=== PATIENT | male | born 1945 | race Caucasian/White ===

== ENCOUNTER → 2016-11-19 16:59 | Outpatient (CLI) | payer MEDICARE, OTHER, SELFPAY ==
--- NOTE | 2016-11-19 14:20 | LES_PTH ---
PATIENT: SERENITY ESTRADA LOC: [facility] U#:[id number] AGE/SX: 79/M ROOM: RE11/19/[address]: Dr. 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 Solar elastosis. AM:mary jo 11/21/16 COMMENT The lesion appears to have been completely excised in the planes examined. Case has been reviewed in consultation with Dr. Hinds who concurs with the above diagnosis. IDC:SJ MICROSCOPIC DESCRIPTION Slides are reviewed. GROSS DESCRIPTION Received is one container labeled with the patient's name and not further designated. The specimen consists of a triangular piece of skin with underlying tissue measuring 1 x 0.5 x 0.3 cm. The specimen is inked and submitted entirely in one cassette. / SHERRY:mary jo 11/20/16 TC: 0 CPT: 32246
== END | disposition home or self-care (01) ==
PROVIDERS: Visit Provider Otolaryngology
DX: D23.22 Other benign neoplasm of skin of left ear and external auricular canal (principal); E86.0 Dehydration
CPT/HCPCS: 88305; 96360; 96361; J7120; A4216

== ENCOUNTER → 2017-06-17 07:57 | Outpatient (CLI) | payer MEDICARE, OTHER, SELFPAY ==
--- NOTE | 2017-06-17 07:59 | CT_ITS ---
STUDY: CT CHEST WITHOUT CONTRAST REASON FOR EXAM: Male, 72 years old. Malignant neoplasm of larynx, lung, evaluate tumor size RADIATION DOSAGE (If Supplied By Facility): CTDIvol = ( 7.31 ) mGy, DLP = ( 292.27 ) mGycm TECHNIQUE: Transaxial imaging was performed without the administration of intravenous contrast material. Individualized dose optimization techniques were used for this CT. COMPARISON: Previous study of April 11, 2017 FINDINGS: The study is technically limited, being performed without intravenous contrast. There is a 6.5 mm posterior left upper lobe nodule abutting the superior major fissure. There is a right lower lobe pulmonary nodule measuring 5 mm, abutting the inferior major fissure. This is seen on image 80 of series 4. There are scattered bilateral calcified granulomas. There is a pleural-based density with spiculated margins of the lateral right middle lobe measuring 2.3 x 1.1 cm. There is a coarse prominent interstitial pattern of the right middle lobe and left lower lobe. There is a pleural-based 1.4 cm nodular density of the posterior left lung base. There is a left lower lobe irregularly margined nodule containing central calcification measuring 1.5 x 0.9 cm. There are bronchiectatic changes of the left lower lobe, new in the interval. There is again demonstrated mild pleural thickening of the anterior upper lobe apices containing air densities. The heart size appears borderline. Coronary arterial calcifications are present. Scattered mediastinal nodes are present. The largest is located in the precarinal region measuring 1.1 cm in short axis. These appear stable in the interval. Hilar areas are difficult to assess on this study as intravenous contrast was not given. No obvious hilar mass or adenopathy is seen. There are bilateral calcified hilar nodes left side more severely affected than right. Normal unenhanced pulmonary arteries. There are calcified plaques of the thoracic aorta. There are diffuse degenerative changes of the thoracolumbar spine. A tracheostomy is seen appearing in adequate position. There are scattered hepatic cysts measuring up to 3.[address]/Chest without Contrast IMPRESSION: 1. Coarse prominent interstitial pattern in the right middle lobe and left lower lobe. Bronchiectatic changes of the left lower lobe, new in the interval. 2. Ill-defined densities of the left lower lobe appearing stable in the interval. 3. Pleural-based density with spiculated margins of the lateral right middle lobe measuring 2.3 x 1.1 cm, new in the interval. 4. Additional pulmonary nodules as detailed above appearing stable in the interval. 5. Mediastinal adenopathy, stable in the interval. Electronically Signed: Preston Abel MD at 17:50 EDT , Service support ,
== END ==
PROVIDERS: Family Provider Surgery; PCP Surgery; Visit Provider Internal Medicine Medical Oncology
DX: C13.9 Malignant neoplasm of hypopharynx, unspecified (principal); C78.02 Secondary malignant neoplasm of left lung
CPT/HCPCS: 71250

== ENCOUNTER → 2017-09-27 07:49 | Outpatient (CLI) | payer MEDICARE, OTHER, SELFPAY ==
--- NOTE | 2017-09-27 07:51 | CT_ITS ---
STUDY: CT CHEST WITH CONTRAST REASON FOR EXAM: Male, 72 years old. Hypopharyngeal cancer. Lung cancer. RADIATION DOSAGE (If Supplied By Facility): CTDIvol = ( 8.16 ) mGy, DLP = ( 271.44 ) mGycm TECHNIQUE: Transaxial imaging was performed following intravenous administration of 75ml ml of Isovue 300 contrast material. Individualized dose optimization techniques were used for this CT. COMPARISON: 06/17/2017. FINDINGS: Tracheostomy tube in grossly satisfactory position, terminating in the trachea above the elva. Continued hyperexpansion of the lungs consistent with severe COPD. Diffuse interstitial prominence consistent with mild interstitial fibrosis. Previously described 2.3 cm right middle lobe density is no longer present. Stable appearance of infiltrate, streaky densities, and nodular densities throughout much of the left lower lobe and into the left posterior costophrenic angle with nodular densities as much as 1.6 cm. Although these are still suspicious and spiculated the lack of change is reassuring and continued follow-up is recommended. Bronchiectasis again seen primarily to both lower lobes worse on the left. Numerous other small nodules and granulomas throughout both lungs are stable such as the 6 mm partially calcified nodule along the superior aspect of the left major fissure. Normal heart and pericardium. Stable appearance of moderate mediastinal and hilar adenopathy, nonspecific but the lack of change is reassuring. Normal enhanced pulmonary arteries. Normal aorta arch and descending thoracic aorta. Normal osseous structures. Limited views through the upper abdomen show no acute abnormality. Liver cysts again seen. Nonobstructing stone in the left kidney is stable. CT/Chest WITH Contrast IMPRESSION: COPD with fibrosis. Previously described nodules and areas of hyperdensity are stable or improved especially in the right middle lobe. In the left lower lobe, findings probably represent a combination of bronchitis, infiltrate, and areas of scarring but recommend repeat follow-up in 6 months. Electronically Signed: Byron Queen MD at 17:21 EDT , Service support ,
== END ==
PROVIDERS: Family Provider Physician Assistant; PCP Physician Assistant; Visit Provider Internal Medicine Medical Oncology
DX: C13.9 Malignant neoplasm of hypopharynx, unspecified (principal); C78.02 Secondary malignant neoplasm of left lung
CPT/HCPCS: 71260; 96360; 96361; J7030; Q9967; A4216

== ENCOUNTER → 2018-04-02 15:24 | Outpatient (CLI) | payer MEDICARE, OTHER, SELFPAY ==
[2018-03-25 09:43] VITALS: BMI 18.4
[2018-03-31 08:55] VITALS: BMI 18.4
--- NOTE | 2018-04-02 15:25 | CT_ITS ---
STUDY: CT CHEST WITH CONTRAST REASON FOR EXAM: Male, 72 years old. Throat and lung cancer. RADIATION DOSAGE (If Supplied By Facility): CTDIvol = ( 7.97 ) mGy, DLP = ( 394.62 ) mGycm TECHNIQUE: Transaxial imaging was performed following intravenous administration of 80ML ml of Isovue 300 contrast material. Multiplanar coronal and sagittal images were reformatted. Individualized dose optimization techniques were used for this CT. COMPARISON: CT of the chest, September 27, 2017. FINDINGS: Again seen is a tracheostomy tube with its tip 3.7 cm above the elva. There is a right-sided jugular [id number] with its catheter tip at the atrial caval junction. There is diffuse hyperexpansion of the lungs suggesting COPD. There are multiple calcified granulomata in the right lower lobe. There is patchy nodular infiltrate in the left lower lobe as well as a single calcified granuloma.. Stable calcified granulomas again seen in the posterior right upper lobe. These findings appear stable. There is stable linear scarring right lung base involving both the middle and lower lobes. No new masses or infiltrates are seen. There is no demonstrated pleural abnormality. Normal heart and pericardium. There are calcifications of the coronary arteries. There is paratracheal, AP window, precarinal and subcarinal lymphadenopathy which appears unchanged in size and appearance from previous examination. There is minimal hilar lymphadenopathy, again unchanged from the prior exam. Normal enhanced pulmonary arteries. There is mild atherosclerotic tortuosity of the thoracic aorta without aneurysm or dissection. There are mild degenerative changes of the thoracic spine without fracture. There are multiple hypodensities of varying sizes throughout the liver most suggestive of cysts. These are stable. There is a stable right upper pole renal cyst. The upper abdomen is otherwise unremarkable. There is no demonstrated abnormality of the visualized upper abdomen. CT/Chest WITH Contrast IMPRESSION: No interval change. Electronically Signed: Gómez London DO at 16:44 EST Tel [phone], Service support ,
== END ==
PROVIDERS: Family Provider Physician Assistant; PCP Physician Assistant; Referring Provider Internal Medicine Medical Oncology; Visit Provider Internal Medicine Medical Oncology
DX: C13.9 Malignant neoplasm of hypopharynx, unspecified (principal); C78.02 Secondary malignant neoplasm of left lung
CPT/HCPCS: 71260; Q9967; A4216

== ENCOUNTER → 2018-05-09 12:06 | Outpatient (CLI) | payer SELFPAY ==
[2018-04-29 08:50] VITALS: BMI 18.3
[2018-05-09 08:25] VITALS: BMI 18.6
[2018-05-09 12:43] VITALS: PULSE 101; PULSE 83; PULSE 85; PULSE 93; PULSE 94; PULSE 99; O2SAT 92; O2SAT 93; O2SAT 94; O2SAT 95; O2SAT 96
--- NOTE | 2018-05-10 08:24 | PCM.PSN.6M ---
PSN 6 Minute Walk Test - 6 Minute Walk Test 6 Minute Walk Test: 6 Minute Walk Test PSN:6-Minute Walk Test Start: 05/09/18 12:43 Freq: Status: Active Protocol: [id number].6MINW Document 05/09/18 12:43 REJI (Rec: 05/09/18 12:47 REJI [id number]) 6 Minute Walk Test Date Performed 05/09/18 Time Performed 12:30 Height 5 ft 10 in Weight: 129 lb Weight in Pounds 129.[address]: Stuart Polo Assistive device used: None Pre-test Oxygen Delivery Method Room Air Pulse Ox (%) 95 Pulse Rate (60-100 beats/min) 83 Dyspnea Amy Scale (0-10) 0.5 Exertion Amy Scale (6-20) 6 1st minute Oxygen Delivery Method Room Air Pulse Ox (%) 94 Pulse Rate (60-100 beats/min) 93 2nd minute Oxygen Delivery Method Room Air Pulse Ox (%) 93 Pulse Rate (60-100 beats/min) 93 3rd minute Oxygen Delivery Method Room Air Pulse Ox (%) 92 Pulse Rate (60-100 beats/min) 94 4th minute Oxygen Delivery Method Room Air Pulse Ox (%) 93 Pulse Rate (60-100 beats/min) 101 H 5th minute Oxygen Delivery Method Room Air Pulse Ox (%) 93 Pulse Rate (60-100 beats/min) 99 6th minute Oxygen Delivery Method Room Air Pulse Ox (%) 95 Pulse Rate (60-100 beats/min) 99 Dyspnea Amy Scale (0-10) 2 Exertion Amy Scale (6-20) 13 Post-test Oxygen Delivery Method Room Air Pulse Ox (%) 96 Pulse Rate (60-100 beats/min) 85 Full Laps Walked 12 Partial Lap, Number of Tiles Walked 50 Total Distance Walked (ft) 758 - Interpretation Interpretation: The patient ambulated 758 feet over the course of 6 minutes beginning on room air without assistive devices or breaks. Pretesting oxygen saturation was noted to be 95% on room air. With ambulation, the lara oxygen saturation was 92%. There was no significant exertional oxygen desaturation. - Recommendations Recommendations: There is no indication for the use of supplemental oxygen at this time.
== END ==
LOC: PSN 12:07
PROVIDERS: Family Provider Physician Assistant; PCP Physician Assistant; Referring Provider Internal Medicine Critical Care Medicine; Visit Provider Internal Medicine Critical Care Medicine
DX: J44.9 Chronic obstructive pulmonary disease, unspecified (principal); G47.34 Idiopathic sleep related nonobstructive alveolar hypoventilation
CPT/HCPCS: 94618; 94762

== ENCOUNTER → 2018-08-13 06:47 | Outpatient (CLI) | payer MEDICARE, OTHER, SELFPAY ==
[2018-07-29 09:27] VITALS: BMI 18.2
[2018-08-11 08:13] VITALS: BMI 18.2
--- NOTE | 2018-08-13 06:51 | CT_ITS ---
STUDY: CT CHEST WITHOUT CONTRAST REASON FOR EXAM: Male, 73 years old. Tongue cancer, lung cancer, tracheostomy, chemotherapy now, PEG tube RADIATION DOSAGE (If Supplied By Facility): CTDIvol = ( 12.48 ) mGy, DLP = ( 502.11 ) mGycm TECHNIQUE: Transaxial 2.5 mm imaging was performed without the administration of intravenous contrast material. Multiplanar coronal and sagittal images were reformatted. This examination is limited for the evaluation of gastrointestinal, solid organs and vascular structures due to the lack of intravenous and oral contrast. Individualized dose optimization techniques were used for this CT. COMPARISON: CT chest 04/02/2018. 09/27/2017. 06/17/2017. 04/11/2017. FINDINGS: Tracheostomy catheter is in good position. Stable right anterior chest wall port with catheter tip at the cavoatrial junction. The left lower lobe again contains bronchiectasis with luminal opacification of bronchi proximally, associated volume loss, airspace disease and nodular atelectatic changes, decreased in size since 09/27/2017. No new nodules or masses are otherwise detected. Stable hyperinflation of lung parenchyma, mild centrilobular emphysema, opacification of both apices, nodular calcification posterior left upper lobe, bronchiectasis, vague nodular ovoid density with adjacent parenchymal stranding of 0.89 cm in the left upper lobe, minimal pleural thickening along the line of fissure in the upper lobe, nodular thickening along the minor fissure with adjacent coursing vessel, calcified granulomata in the right and left lower lobe, scarring in the lung bases, 3 mm nodular density left upper lobe image 54 series 4, minimal nodular thickening of the left major fissure are stable findings. There is no demonstrated pleural abnormality. Normal heart and stable small anterior pericardial fluid. There are calcifications of the coronary arteries. Lymphadenopathy in the pretracheal, aortopulmonary, precarinal and subcarinal mediastinum not significantly changed when compared to the previous contrast enhanced study. Normal hilar regions. Normal unenhanced pulmonary arteries. Normal aorta arch and descending thoracic aorta. There are mild degenerative changes of the thoracic spine. Pectus excavatum deformity. No destructive osseous lesions. Stable nonobstructing left upper renal pole calcification, splenic granulomata, left peripelvic cysts, and low-attenuation changes within the liver. CT/Chest without Contrast IMPRESSION: No new lung masses or nodules detected. Nodular atelectatic changes within the left lower lobe appear decreased when compared to 06/17/2017. Stable emphysema, scarring, bronchiectasis, inflammation and luminal opacification of the left inferior bronchi, remote granulomatous exposure, arteriosclerosis, coronary artery disease, small anterior pericardial fluid, low attenuation changes within the liver, nonobstructing left renal calculus. Electronically Signed: Neela Garcia MD at 4:58 EDT , Service support ,
== END ==
PROVIDERS: Family Provider Physician Assistant; PCP Physician Assistant; Referring Provider Internal Medicine Medical Oncology; Visit Provider Internal Medicine Medical Oncology
DX: C13.9 Malignant neoplasm of hypopharynx, unspecified (principal); C78.02 Secondary malignant neoplasm of left lung
CPT/HCPCS: 71250

== ENCOUNTER → 2018-09-09 09:38 | Outpatient (CLI) | payer MEDICARE, OTHER, SELFPAY ==
[2018-09-09 08:58] VITALS: BMI 17.4
--- NOTE | 2018-09-09 09:42 | RAD_ITS ---
STUDY: X-RAY CHEST REASON FOR EXAM: Male, 73 years old. Cough, weakness. History of esophageal and lung cancer. TECHNIQUE: PA and lateral views of the chest. COMPARISON: Comparison is made with prior chest radiograph dated August 09, 2016. FINDINGS: A tracheostomy is in situ. The tip is at 6.5 cm proximal to the elva. A right-sided portacatheter is in place with the tip at the junction of superior vena cava and right atrium. Hyperinflation. There now is evidence of increased markings in the right middle lobe suggestive of a a right middle lobe infiltrate. Follow-up is recommended. There is no demonstrated pleural abnormality. Pectus ask about and deformity. Normal size heart. Normal mediastinum and anival. Normal visualized pulmonary arteries. There is atherosclerotic calcification of the aortic arch with tortuosity. Normal visualized thoracic spine. Normal visualized ribs, clavicles, and shoulders. There is no demonstrated abnormality of the visualized soft tissue structures of the upper abdomen. RAD/Chest PA and Lateral IMPRESSION: Focal right middle lobe infiltrate. Follow-up is recommended. Electronically Signed: Joshua Schneider, at 10:31 EDT , Service support ,
== END ==
PROVIDERS: Family Provider Physician Assistant; PCP Physician Assistant; Referring Provider Nurse Practitioner Family; Visit Provider Nurse Practitioner Family
DX: R05 Cough (principal); C13.9 Malignant neoplasm of hypopharynx, unspecified; C78.00 Secondary malignant neoplasm of unspecified lung
CPT/HCPCS: 71046

== ENCOUNTER 2018-09-09 12:22 | Inpatient (IN) | payer MEDICARE, OTHER, SELFPAY ==
[2018-09-09] VITALS (9 sets, daily range): BP systolic 90–112; BP diastolic 59–85; PULSE 77–101; RESP 18–25; TEMP 36.6–37; O2SAT 94–97; BMI 17.4; BMI 17.5
--- NOTE | 2018-09-09 12:27 | EKG12_ITS ---
Test Reason : SOB Blood Pressure : / mmHG Vent. Rate : 087 BPM Atrial Rate : 087 BPM P-R Int : 150 ms QRS Dur : 080 ms QT Int : 372 ms P-R-T Axes : 074 058 058 degrees QTc Int : 447 ms Normal sinus rhythm Cannot rule out Anterior infarct , age undetermined Abnormal ECG Confirmed by KAN PARDO ([id number]), editorial director DAWSON AVALOS ([id number]) on 09/12/2018 6:16:29 AM Referred By: Colt Alan Confirmed By:KAN PARDO
[2018-09-09] MEDS: Ipratropium/Albuterol Sulfate 3 ML AMPUL.NEB INHALATION (12:52)
[2018-09-09] MEDS: 0.9% Normal Saline 1,000 ML 150 ML IV ×2 (12:59→20:55)
[2018-09-09 13:07] LABS: Absolute Lymphocyte Count 0.75 X10^3/ul (0.83-4.51); Basophil# 0.02 X10^3/uL; Basophil% 0.3 % (0-1); Eosinophil# 0.08 X10^3/uL; Eosinophils% 1.3 % (0-5); Hemoglobin 12.8 g/dl (13.0-16.5); Lymphocyte # 0.75 X10^3/ul (4.0); Lymphocyte % 11.9 % (19-41); Mean Corp Hgb Conc 32.8 g/gl (32-36); Mean Corpuscular Volume 100.5 fL (80-94); Mean Platelet Vol. 11.5 fl (6.2-12.0); Monocyte# 0.47 X10^3/uL; Monocyte% 7.5 % (0-10); Neutrophil # 4.98 X10^3/uL (2.7-7.7); Platelet Count 164 K/mm3 (150-450); RBC Distribution Width CV 13.8 % (11.6-14.6); RBC Distribution Width SD 50.7 fl (35.1-43.9); Red Blood Count 3.88 M/mm3 (4.6-6.2); White Blood Count 6.3 K/mm3 (4.4-11.0)
[2018-09-09 13:08] LABS: POSITIVE COUNT NO; POSITIVE DIFFERENTIAL NO; POSITIVE MORPHOLOGY NO
[2018-09-09 13:23] LABS: ALB/GLOB Ratio 0.7 RATIO (0.9-2.4); AST(SGOT) 22 U/L (15-37); Alanine Aminotransfer ALT/SGPT 16 U/L (16-61); Albumin, Serum 3.3 g/dL (3.2-5.0); Alkaline Phosphatase 67 U/L (45-117); Anion Gap 6 (5-15); BUN 26 mg/dL (7-18); BUN/Creat Ratio 15.8 RATIO (10-20); Calcium,Total 9.3 mg/dL (8.5-10.1); Chloride 109 mmol/L (98-107); Creatinine, Serum 1.65 mg/dL (0.70-1.30); EST Glomerular Filtration Rate 44 mL/min (>60); Est Glom Filt Rate - Afr Amer 53 mL/min (>60); Estimated Creatinine Clearance 32.22 ml/min; Globulin 4.7 g/dL (2.2-4.2); Glucose 86 mg/dL (74-106); Potassium 4.3 mmol/L (3.5-5.1); Sodium Level 140 mmol/L (136-145)
[2018-09-09 13:32] LABS: Lactic Acid 0.7 mmol/L (0.4-2.0)
--- NOTE | 2018-09-09 14:04 | ED.VISSUMM ---
- ER Visit Summary Date of Service: 09/09/18 Chief Complaint: [Cough and shortness of breath] History of Present Illness: The patient is a 73 M [presents to the emergency department with symptoms for 2 to 3 weeks. Patient states that he is had some thick sputum from his tracheostomy. Patient just finished amoxicillin this morning which she is been on for 2 weeks. Patient does have a history of esophageal cancer that was treated with radiation and he also has history of lung cancer for which she received his on infusion of an immune modulator which she was supposed to have today. Patient had a chest x-ray that today that showed a right middle lobe infiltrate and therefore was not given the immune modulator. Patient said subjective fever at home and chills. He denies recent travel or surgery. He denies any chest pain.] Physical Examination: [HEENT-PERRLA, EOMI. Cranial nerves II through XII grossly intact. TMs clear. No adenopathy. Patient is cachectic. Mucous membranes are dry Cardiovascular-regular rate and rhythm without murmur or ectopy Lungs-aeration bilaterally. Patient got some coarse breath sounds and rhonchi bilaterally. Few rales in the right base. Mild tachypnea. No accessory muscle use or retractions. Abdomen-normoactive bowel sounds, soft, nontender, no rebound or rigidity, no peritoneal signs. Extremities-intact ?4, normal range of motion, normal pulses, atraumatic] Test Results: [EKG obtained on arrival shows sinus rhythm with a ventricular rate of 87 bpm with no acute I segment changes. CBC with differential showed a white count of 6.3, hemoglobin 12.8, hematocrit 39, placed 164. Chemistry showed a sodium of 140, potassium 4.3, chloride 109, CO2 25, BUN 26, creatinine 1.65. LFTs were normal. Chest x-ray showed a right middle lobe infiltrate.] Emergency Department Course and Treatment: [Patient was ordered blood cultures and sputum culture. Patient was started on Zosyn and vancomycin.] Treatment Plan: [Admit] Disposition: [Admit ] Impression: [Pneumonia Dehydration Dyspnea] This note was generated with [employer] dictation software. It may contain incorrect words, spelling, and punctuation that were not noted in review of the chart prior to signing ED Disposition - Plan for ED Patient: Referrals: Alejandro Liu PA [Primary Care Provider] -
--- NOTE | 2018-09-09 14:10 | HP.PCM_ITS ---
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 He had a new right middle lobe density in June 2017 which was felt to be aspiration was placed on antibiotics at that time. Repeat CT scan showed that it was stable earlier this month. He states that he just completed 10 days of Augmentin for sinusitis and he started having cough and malaise last night with sputum production and a large volume emesis that actually came out of his trach. He presented to his oncologist office who recommended that he follow-up with the ER after having a chest x-ray which shows right middle lobe consolidation based on comparison to August 09, 2016. In the ER he was tachycardic to 101 and tachypneic to 24, without a leukocytosis or fever. He does not eat anymore, he does have a PEG tube in place. Past Medical History Past Medical History (Chronic Problems): Chronic Problems (Last Reviewed 09/09/18 @ 08:58 by Alejandra Diaz) Acute respiratory failure (Chronic) Aspiration pneumonia (Chronic) Cachexia (Chronic) Dysphagia (Chronic) Laryngeal cancer (Chronic) Tracheostomy in place (Chronic) PEG (percutaneous endoscopic gastrostomy) status (Chronic) Leukopenia due to antineoplastic chemotherapy (Chronic) Hypopharyngeal cancer (Chronic) Secondary malignant neoplasm of left lung (Chronic) Dehydration (Chronic) Macroglobulinemia (Chronic) Nocturnal hypoxia (Chronic) Medical History: Medical History (Last Reviewed 09/09/18 @ 08:58 by Alejandra Diaz) pegtube port placement Acute nontraumatic kidney injury N17.9 Adverse effect of antineoplastic and immunosuppressive drugs T45.1X5A Agranulocytosis secondary to cancer chemotherapy D70.1, T45.1X5A Antineoplastic chemotherapy induced anemia D64.81, T45.1X5A Diarrhea R19.7 Hypermagnesemia E83.41 Long-term use of high-risk medication Z79.899 Neuropathy G62.9 Oral candidiasis B37.0 Pneumonia J18.9 Primary malignant neoplasm of hypopharynx C13.9 RUQ abdominal pain R10.11 Secondary malignant neoplasm of lung C78.00 Wheezing R06.2 tracheotomy and laryngeal biopsy Allergies venom-honey bee [bee venom (honey bee)] Allergy (Severe, Verified 09/09/18 12:27) Anaphylaxis pseudoephedrine HCl [From Sudafed] Adverse Reaction (Severe, Verified 09/09/18 12:27) Unknown pain Antihistamines - Alkylamine Adverse Reaction (Mild, Verified 09/09/18 12:27) Other PT UNABLE TO URINATE WHEN TAKING ANTIHISTAMINES ROUTINELY Home Medications: Ambulatory Orders Medication Instructions Recorded Gabapentin 300 mg GT BID 09/09/18 Levothyroxine Sodium 50 mcg GT TUSA 09/09/18 Levothyroxine [Synthroid] 25 mcg GT SUMOWETHFR 09/09/18 Surgical History: Surgical History (Last Reviewed 09/09/18 @ 08:58 by Alejandra Diaz) Hx of tonsillectomy Z98.890, Z90.89 Surgical History: - - Med port L chest Psychiatric History: No pertinent psych hx Smoking Status: Current some day smoker Tobacco Use: Cigarettes Alcohol: None Drugs: None - *Family History Maternal Family History: Family History (Last Reviewed 08/25/18 @ 11:05 by Alejandra Diaz) Father Colon cancer Hypertension Mother Hypertension History Items: Cancer - Colon cancer, Heart Disease, - - No laryngeal cancer Paternal Family History: Family History (Last Reviewed 08/25/18 @ 11:05 by Alejandra Diaz) Father Colon cancer Hypertension Mother Hypertension History Items: Unknown Sibling Family History: Family History (Last Reviewed 08/25/18 @ 11:05 by Alejandra Diaz) Father Colon cancer Hypertension Mother Hypertension History Items: Cancer - breast Review of Systems Constitutional: Reports: Chills, Fever. Denies: Weight Change HEENT: Denies: Head Aches, Sinus Congestion, Sinus Drainage Cardiovascular: Denies: Chest Pain, Palpitations Respiratory: Reports: Cough, Shortness of Breath, Sputum production. Denies: Shortness of breath at rest Gastrointestinal: Reports: Vomiting. Denies: Abdominal Pain, Nausea Genitourinary: Denies: Dysuria Musculoskeletal: Denies: Joint Pain, Joint Tenderness Skin: Denies: Rash, Wounds Neurological: Denies: Numbness, Tingling, Focal weakness Psychiatric: Denies: Anxiety, Depression Hematologic/ Lymphatic: Denies: Easy Bruising, Easy Bleeding VTE Information - Inpt Only VTE Present on Admission: No Patient Problems: Active and Suspected Problems (Last Reviewed 09/09/18 @ 08:58 by Alejandra Diaz) Cancer, metastatic to lung (Acute) Hypothyroidism (Acute) Immunotherapy encounter (Acute) Hyperglobulinemia (Acute) Acute rhinosinusitis (Acute) Pneumonia (Acute) - Physical Exam General: Alert, Oriented x3, Cooperative, No apparent distress, - - Appears chronically malnourished HEENT: Atraumatic, PERRLA, EOMI, Normocephalic, - - Trach Oral: Dry Mucosa Neck: Supple, No JVD Lungs: Normal air movement, Diminished, Rhonchi, Tachypneic Cardiovascular: Regular rate, Regular Rhythm, Normal S1, Normal S2, No murmurs Abdomen: Soft, Non Tender, Non-Distended, No Hepato-splenomegaly, - - PEG tube in place Extremities: No edema, Capillary Refill Less than 3 Seconds Skin: No rashes, No breakdown Neurological: Neuro grossly intact, Sensory exam intact to light touch and pain Psych/Mental Status: Normal Affect, Appropriate Vital Signs Temp Pulse Resp BP Pulse Ox 98.2 F 82 22 H 111/76 97 09/09/18 13:26 09/09/18 13:26 09/09/18 13:26 09/09/18 13:26 09/09/18 13:26 Oxygen Delivery Method Room Air Weight: 122 lb 4.8 oz Body Mass Index (BMI) 17.5 Laboratory Tests Past 24 Hrs 09/09/18 09/09/18 09/09/18 12:48 12:48 12:48 WBC 6.3 RBC 3.88 L Hgb 12.8 L Hct 39.0 L MCV 100.5 H MCH 33.0 H MCHC 32.8 RDW 13.8 RDW Differential 50.7 H Plt Count 164 MPV 11.5 Immature Gran % (Auto) 0.000 Neut % (Auto) 79.0 H Lymph % (Auto) 11.9 L [place] % (Auto) 7.5 Eos % (Auto) 1.3 Baso % (Auto) 0.3 Absolute Neuts (auto) 5.0 Absolute Lymphs (auto) 0.75 L Total Counted Not Reportable Sodium 140 Potassium 4.3 Chloride 109 H Carbon Dioxide 25.0 Anion Gap 6 BUN 26 H Creatinine 1.65 H Estim Creat Clear Calc 32.22 Est GFR (MDRD) Af Amer 53 L Est GFR (MDRD) Non-Af 44 L BUN/Creatinine Ratio 15.8 Glucose 86 Lactic Acid 0.7 Calcium 9.3 Total Bilirubin 0.40 AST 22 ALT 16 Alkaline Phosphatase 67 Total Protein 8.0 Albumin 3.3 Globulin 4.7 H Albumin/Globulin Ratio 0.7 L Assessment/Plan All Active Problems (Last Reviewed 09/09/18 @ 08:58 by Alejandra Diaz) HCAP (healthcare-associated pneumonia) (Resolved) Cancer, metastatic to lung (Acute) Hypothyroidism (Acute) Immunotherapy encounter (Acute) Hyperglobulinemia (Acute) Acute rhinosinusitis (Acute) Pneumonia (Acute) Thrush, oral (Acute) Tobacco abuse (Acute) 1. Right middle lobe consolidation probably secondary to aspiration -I am not entirely convinced that there is pneumonia versus just simple aspiration given his history of cancer, his PEG tube, his trach in the history of having a large volume emesis that came out of his trach last evening -We will treat with antibiotics for now because he is immunocompromised receiving chemo, continue with Zosyn and Vanco -We will obtain Legionella and urine strep antigen -Sputum and blood cultures are pending -We will consult speech for evaluation 2. Hypopharyngeal stage IV cancer with mets to the lung -Continue with oncology as an outpatient -They will reevaluate for immunotherapy on 09/16 3. Hypothyroidism -Stable -Continue with Synthroid DVT: Lovenox
--- NOTE | 2018-09-09 15:15 | CPS ---
Oleksandr placed 6dcfs and 4dic trach plus 6DIC's in cupboard in pt's room and let family member & Gelacio RN know that backup equipment was in the room along with disposable inner cannulas. Pt does not use oxygen or cool aerosol to his trach, pt doesn't want to be suctioned unless absolutely necessary because he has a strong cough and can cough his secretions out.
--- NOTE | 2018-09-09 15:21 | PCM.RX.CS ---
Consult Pharmacy has been consulted to manage selected antiobiotic: Vancomycin Type of Consult: New start Suspected Infection: Pneumonia Prior Doses of Antibiotics Received/Current Regimen: Received 750mg IV x1 in E.R. at 14:13 today Labs: Sodium 140 mmol/L (136-145) 09/09/18 12:48 Potassium 4.3 mmol/L (3.5-5.1) 09/09/18 12:48 Chloride 109 mmol/L (98-107) H 09/09/18 12:48 Carbon Dioxide 25.0 mmol/L (21.0-32.0) 09/09/18 12:48 Anion Gap 6 (5-15) 09/09/18 12:48 BUN 26 mg/dL (7-18) H 09/09/18 12:48 Creatinine 1.65 mg/dL (0.70-1.30) H 09/09/18 12:48 Est GFR (MDRD) Af Amer 53 mL/min (>60) L 09/09/18 12:48 Est GFR (MDRD) Non-Af 44 mL/min (>60) L 09/09/18 12:48 BUN/Creatinine Ratio 15.8 RATIO (10-20) 09/09/18 12:48 Glucose 86 mg/dL (74-106) 09/09/18 12:48 Weight used for dosin kg Estimated Creatinine Clearance: 32 ml/min Goal Trough: 15-20 mcg/mL Pharmacy Plan for Drug Dosing: Using our [facility] Pharmacist-Managed Dosing Protocol, a dose of 750mg IV q24h will be ordered to be started tomorrow afternoon about 24 hours after the E.R. dose was given today. To avoid any possible IV compatibility issues with the Zosyn tomorrow, we will start the vancomycin at 13:00 so that it can infuse before the Zosyn is to start at 14:00. A trough will be ordered to be drawn before the 3rd total dose. Pharmacy Service will continue to monitor and adjust dosing as required. Follow-Up Labs: Trough Vancomycin Labs to be done on [date and time ordered]: 09/11/18 12:30
--- NOTE | 2018-09-09 15:26 | PHA.PHARE_ITS ---
Consult Pharmacy has been consulted to manage selected antiobiotic: Vancomycin Type of Consult: New start Suspected Infection: Pneumonia Prior Doses of Antibiotics Received/Current Regimen: Received 750mg IV x1 in E.R. at 14:13 today Labs: Sodium 140 mmol/L (136-145) 09/09/18 12:48 Potassium 4.3 mmol/L (3.5-5.1) 09/09/18 12:48 Chloride 109 mmol/L (98-107) H 09/09/18 12:48 Carbon Dioxide 25.0 mmol/L (21.0-32.0) 09/09/18 12:48 Anion Gap 6 (5-15) 09/09/18 12:48 BUN 26 mg/dL (7-18) H 09/09/18 12:48 Creatinine 1.65 mg/dL (0.70-1.30) H 09/09/18 12:48 Est GFR (MDRD) Af Amer 53 mL/min (>60) L 09/09/18 12:48 Est GFR (MDRD) Non-Af 44 mL/min (>60) L 09/09/18 12:48 BUN/Creatinine Ratio 15.8 RATIO (10-20) 09/09/18 12:48 Glucose 86 mg/dL (74-106) 09/09/18 12:48 Weight used for dosin kg Estimated Creatinine Clearance: 32 ml/min Goal Trough: 15-20 mcg/mL Pharmacy Plan for Drug Dosing: Using our [facility] Pharmacist-Managed Dosing Protocol, a dose of 750mg IV q24h will be ordered to be started tomorrow afternoon about 24 hours after the E.R. dose was given today. To avoid any possible IV compatibility issues with the Zosyn tomorrow, we will start the vancomycin at 13:00 so that it can infuse before the Zosyn is to start at 14:00. A trough will be ordered to be drawn before the 3rd total dose. Pharmacy Service will continue to monitor and adjust dosing as required. Follow-Up Labs: Trough Vancomycin Labs to be done on [date and time ordered]: 09/11/18 12:30
--- NOTE | 2018-09-09 17:10 | CASEMGMT ---
RN CM Assessment Introduced role of RN CM to patient and patient significant other at bedside.? Patient is alert, oriented and able?to participate in RN CM Assessment. Patient Bed Assignment ready and therefore information obtained from Sig perez Grande while patient getting ready to go upstairs, patient did answer a couple questions.?Care providers, pharmacy, and demographics verified. Presentation: x2-3 weeks with SOB, Thick Sputum from his Trach, Just finished Amoxicillin this morning, H/o Esophageal CA Tx w/Radiation, H/o Lung CA-received Infusion of Immune Modulator, CXR today with RML infiltrate and not given Immune Modulator today. Admit Dx: RLL PNA Re-Admit: No Barriers/Issues: Per Sig. Other Goal TBD as wants patient in the hospital to get better, states the last time patient was let go too early. PCP: Miles Liu Specialists: Surg- Dr Griffin, Onc- Dr Max, ENT- Dr Arellano Preferred Pharmacy: [facility] [place] Insurance: [employer], [employer] Supp Rx Benefit:?Yes LNOK: Sig. Other Christiane Graham LW/HPOA: Per Sig. Other states patient told other staff No but she thinks he has done both, states believes she is the designated HPOA Living Arrangements:? Lives with Sig. Other in a SS home, 1 step to enter ADL?s: Independent with ambulation and ADL's Transportation: Patient drives, Sig. Other on DC DME: None HHC: Past SNF: None Goal: TBD DC PLAN: Home with no needs anticipated at this time. Denies questions/Concerns, aware CM remains available for any emerging needs. ESTELLA Berg
[2018-09-09] MEDS: Gabapentin 300 MG Capsule GT (21:42)
[2018-09-10] MEDS: 0.9% Normal Saline 1,000 ML 150 ML IV ×3 (03:40→17:30)
[2018-09-10 03:56] VITALS: RESP 18
[2018-09-10] MEDS: Levothyroxine 25 MCG TABLET GT (05:30)
[2018-09-10 05:41] VITALS: BP 99/61; PULSE 72; RESP 18; TEMP 37.2; O2SAT 97
[2018-09-10 07:28] LABS: Anion Gap 7 (5-15); BUN 23 mg/dL (7-18); BUN/Creat Ratio 14.6 RATIO (10-20); Calcium,Total 8.1 mg/dL (8.5-10.1); Chloride 112 mmol/L (98-107); Creatinine, Serum 1.57 mg/dL (0.70-1.30); EST Glomerular Filtration Rate 47 mL/min (>60); Est Glom Filt Rate - Afr Amer 56 mL/min (>60); Estimated Creatinine Clearance 32.84 ml/min; Glucose 57 mg/dL (74-106); Potassium 4.3 mmol/L (3.5-5.1); Sodium Level 141 mmol/L (136-145)
[2018-09-10 07:36] LABS: Absolute Lymphocyte Count 0.61 X10^3/ul (0.83-4.51); Absolute Neutrophil Count 2.4 X10^3/uL (2.0-7.7); Basophil# 0.02 X10^3/uL; Basophil% 0.6 % (0-1); Hematocrit 33.3 % (40-54); Hemoglobin 10.5 g/dl (13.0-16.5); Lymphocyte # 0.61 X10^3/ul (4.0); Lymphocyte % 18.2 % (19-41); Mean Corp Hgb Conc 31.5 g/gl (32-36); Mean Corpuscular Hgb 32.2 pg (27.0-32.0); Mean Corpuscular Volume 102.1 fL (80-94); Mean Platelet Vol. 12.1 fl (6.2-12.0); Monocyte# 0.27 X10^3/uL; Monocyte% 8.1 % (0-10); Neutrophil # 2.35 X10^3/uL (2.7-7.7); Neutrophil % 70.1 % (47-70); Platelet Count 116 K/mm3 (150-450); RBC Distribution Width CV 13.4 % (11.6-14.6); RBC Distribution Width SD 49.4 fl (35.1-43.9); Red Blood Count 3.26 M/mm3 (4.6-6.2); White Blood Count 3.4 K/mm3 (4.4-11.0)
[2018-09-10 07:46] LABS: POSITIVE COUNT NO; POSITIVE DIFFERENTIAL NO; POSITIVE MORPHOLOGY NO
[2018-09-10 08:19] VITALS: BP 98/62; PULSE 65; RESP 18; TEMP 36.7; O2SAT 93
--- NOTE | 2018-09-10 09:38 | PCM.PN.HOSP ---
Patient Problems: Active and Suspected Problems (Last Reviewed 09/09/18 @ 08:58 by Alejandra Diaz) Cancer, metastatic to lung (Acute) Hypothyroidism (Acute) Immunotherapy encounter (Acute) Hyperglobulinemia (Acute) Acute rhinosinusitis (Acute) Pneumonia (Acute) Subjective: Patient seen and examined. He was admitted with a complaint of cough and shortness of breath after he went to his oncologist office for IV hydration. He had recently been treated with Augmentin for 10 days for sinusitis. On the day before admission, patient states he had a large volume emesis which came up through his tracheostomy and nose and mouth. Chest x-ray done in the ED showed right middle lobe consolidation and he was found to be tachycardic and tachypneic in the ED as well. He was therefore admitted to be managed for possible aspiration pneumonia. Patient seen today. He feels much better and has no complaints. He denies any fever or chills and his cough is getting better. He denies any chest pain or palpitations, dizziness, diarrhea vomiting. Review of systems otherwise negative. Labs and vitals reviewed. Vitals/I&O's: Vital Signs Temp Pulse Resp BP Pulse Ox 98.0 F 65 18 98/62 93 09/10/18 08:19 09/10/18 08:19 09/10/18 08:19 09/10/18 08:19 09/10/18 08:19 Oxygen Delivery Method Room Air Weight: 118 lb 9.739 oz Body Mass Index (BMI) 0.1 Intake and Output for Last 24 Hours 09/08/18 09/09/18 09/10/18 23:59 23:59 23:59 Intake Total 1636 / 1636 1057 / 1057 Output Total 500 / 500 200 / 200 Balance 1136 / 1136 857 / 857 General: Alert, Oriented x3, Cooperative, No apparent distress HEENT: Atraumatic, PERRLA, EOMI, Normocephalic, - - has a tracheostomy in place Oral: Dry Mucosa Neck: Supple, No JVD, Negative Carotid Bruits Lungs: - - mildly diminished breath sounds bibasally, no wheezes or crackles Cardiovascular: Regular rate, Regular Rhythm, Normal S1, Normal S2, No murmurs Abdomen: Bowel Sounds Present, Soft, Non Tender, Non-Distended, No Hepato-splenomegaly Extremities: No clubbing, No cyanosis, No edema, Capillary Refill Less than 3 Seconds Skin: No rashes, No breakdown Musculoskeletal: No Tenderness to Palpation of Joints or Extremities Lymphatic: No Cervical, Supraclavicular, or Inguinal Adenopathy Neurological: Cranial nerves II-XII grossly intact, Neuro grossly intact, Motor Exam 5/5 strength throughout Psych/Mental Status: Normal Affect, Appropriate, Alert and oriented to time, place, person, mood and affect Microbiology Past 72 Hours 09/09/18 16:15 Urine, Clean Catch Streptococcus pneumoniae Antigen (M - Final 09/09/18 16:15 Urine, Clean Catch Legionella Antigen - Final Laboratory Results 09/09/18 12:48: WBC 6.3, RBC 3.88 L, Hgb 12.8 L, Hct 39.0 L, MCV 100.5 H, MCH 33.0 H, MCHC 32.8, RDW 13.8, RDW Differential 50.7 H, Plt Count 164, MPV 11.5, Immature Gran % (Auto) 0.000, Neut % (Auto) 79.0 H, Lymph % (Auto) 11.9 L, [place] % (Auto) 7.5, Eos % (Auto) 1.3, Baso % (Auto) 0.3, Absolute Neuts (auto) 5.0, Absolute Lymphs (auto) 0.75 L, Total Counted Not Reportable 09/09/18 12:48: Lactic Acid 0.7 09/09/18 12:48: Sodium 140, Potassium 4.3, Chloride 109 H, Carbon Dioxide 25.0, Anion Gap 6, BUN 26 H, Creatinine 1.65 H, Estim Creat Clear Calc 32.22, Est GFR (MDRD) Af Amer 53 L, Est GFR (MDRD) Non-Af 44 L, BUN/Creatinine Ratio 15.8, Glucose 86, Calcium 9.3, Total Bilirubin 0.40, AST 22, ALT 16, Alkaline Phosphatase 67, Total Protein 8.0, Albumin 3.3, Globulin 4.7 H, Albumin/Globulin Ratio 0.7 L 09/10/18 07:01: WBC 3.4 L, RBC 3.26 L, Hgb 10.5 L, Hct 33.3 L, MCV 102.1 H, MCH 32.2 H, MCHC 31.5 L, RDW 13.4, RDW Differential 49.4 H, Plt Count 116 L, MPV 12.1 H, Immature Gran % (Auto) 0.000, Neut % (Auto) 70.1 H, Lymph % (Auto) 18.2 L, [place] % (Auto) 8.1, Eos % (Auto) 3.0, Baso % (Auto) 0.6, Absolute Neuts (auto) 2.4, Absolute Lymphs (auto) 0.61 L, Total Counted Not Reportable 09/10/18 07:01: Sodium 141, Potassium 4.3, Chloride 112 H, Carbon Dioxide 22.0, Anion Gap 7, BUN 23 H, Creatinine 1.57 H, Estim Creat Clear Calc 32.84, Est GFR (MDRD) Af Amer 56 L, Est GFR (MDRD) Non-Af 47 L, BUN/Creatinine Ratio 14.6, Glucose 57 L, Calcium 8.1 L Current Medications Acetaminophen (Tylenol Liquid) 650 mg GT Q6H PRN PRN PRN Reason: pain/fever Enoxaparin Sodium (Lovenox) 40 mg SC DAILY@1000 [facility] Gabapentin (Neurontin) 300 mg GT BID [facility] Last Admin: 09/09/18 21:42 Dose: 300 mg Sodium Chloride () 1,000 mls @ 150 mls/hr IV .Q6H40M [facility] Last Admin: 09/10/18 03:40 Dose: 150 mls/hr Piperacillin Sod/Tazobactam (Sod 3.375 gm/ Sodium Chloride) 50 mls @ 12.5 mls/hr IV Q8 [facility] Last Admin: 09/10/18 05:31 Dose: 12.5 mls/hr Vancomycin IV Pharmacy to Dose (1 ea/ Sodium Chloride) 500 mls @ 250 mls/hr IV X1 PRN; Protocol PRN Reason: Rx to Dose Vancomycin HCl 750 mg/ Sodium (Chloride) 265 mls @ 250 mls/hr IV Q24H [facility] Levothyroxine Sodium (Synthroid) 25 mcg GT SuMoWeThFr@0600 [facility] Last Admin: 09/10/18 05:30 Dose: 25 mcg Levothyroxine Sodium (Synthroid) 50 mcg GT TuSa@0600 [facility] Ondansetron HCl (Zofran) 4 mg IV Q8H PRN PRN PRN Reason: NAUSEA/VOMITING Sodium Chloride () 5 - 15 ml IV UD PRN PRN Reason: SALINE FLUSH Medical Necessity - Tobacco Use Smoking Status: Current some day smoker Tobacco Use: Cigarettes Assessment/Plan All Active Problems (Last Reviewed 09/09/18 @ 08:58 by Alejandra Diaz) HCAP (healthcare-associated pneumonia) (Resolved) Cancer, metastatic to lung (Acute) Hypothyroidism (Acute) Immunotherapy encounter (Acute) Hyperglobulinemia (Acute) Acute rhinosinusitis (Acute) Pneumonia (Acute) Thrush, oral (Acute) Tobacco abuse (Acute) 1. Sepsis due to aspiration pneumonia patient was tachypneic and tachycardic on admission, and with the middle lobe consolidation, he met sepsis criteria with pneumonia as the source of infection tachycardia and tachypnea have now resolved. he is afebrile and cough is improving urine for strep and legionella antigen were negative. continue IV zosyn and dc iV vancomycin. sputum and blood cultures pending speech therapy evaluation also pending continue tube feeding 2. metastatic hypopharyngeal cancer (stage IV) with lung mets follows with oncology; currently on Keytruda to follow up with oncology after discharge 3. Hypothyroidism: stable. On synthroid. Nutrition: continue Jevity via PEG tube per dietary recommendations after he is reviewed by speech therapy DVT prophylaxis: lovenox Code Visit Inpatient E&M: 85186 Subs Hosp L2
--- NOTE | 2018-09-10 09:42 | PN_ITS ---
Patient Problems: Active and Suspected Problems (Last Reviewed 09/09/18 @ 08:58 by Alejandra Diaz) Cancer, metastatic to lung (Acute) Hypothyroidism (Acute) Immunotherapy encounter (Acute) Hyperglobulinemia (Acute) Acute rhinosinusitis (Acute) Pneumonia (Acute) Subjective: Patient seen and examined. He was admitted with a complaint of cough and shortness of breath after he went to his oncologist office for IV hydration. He had recently been treated with Augmentin for 10 days for sinusitis. On the day before admission, patient states he had a large volume emesis which came up through his tracheostomy and nose and mouth. Chest x-ray done in the ED showed right middle lobe consolidation and he was found to be tachycardic and tachypneic in the ED as well. He was therefore admitted to be managed for possible aspiration pneumonia. Patient seen today. He feels much better and has no complaints. He denies any fever or chills and his cough is getting better. He denies any chest pain or palpitations, dizziness, diarrhea vomiting. Review of systems otherwise negative. Labs and vitals reviewed. Vitals/I&O's: Vital Signs Temp Pulse Resp BP Pulse Ox 98.0 F 65 18 98/62 93 09/10/18 08:19 09/10/18 08:19 09/10/18 08:19 09/10/18 08:19 09/10/18 08:19 Oxygen Delivery Method Room Air Weight: 118 lb 9.739 oz Body Mass Index (BMI) 0.1 Intake and Output for Last 24 Hours 09/08/18 09/09/18 09/10/18 23:59 23:59 23:59 Intake Total 1636 / 1636 1057 / 1057 Output Total 500 / 500 200 / 200 Balance 1136 / 1136 857 / 857 General: Alert, Oriented x3, Cooperative, No apparent distress HEENT: Atraumatic, PERRLA, EOMI, Normocephalic, - - has a tracheostomy in place Oral: Dry Mucosa Neck: Supple, No JVD, Negative Carotid Bruits Lungs: - - mildly diminished breath sounds bibasally, no wheezes or crackles Cardiovascular: Regular rate, Regular Rhythm, Normal S1, Normal S2, No murmurs Abdomen: Bowel Sounds Present, Soft, Non Tender, Non-Distended, No Hepato- splenomegaly Extremities: No clubbing, No cyanosis, No edema, Capillary Refill Less than 3 Seconds Skin: No rashes, No breakdown Musculoskeletal: No Tenderness to Palpation of Joints or Extremities Lymphatic: No Cervical, Supraclavicular, or Inguinal Adenopathy Neurological: Cranial nerves II-XII grossly intact, Neuro grossly intact, Motor Exam 5/5 strength throughout Psych/Mental Status: Normal Affect, Appropriate, Alert and oriented to time, place, person, mood and affect Microbiology Past 72 Hours 09/09/18 16:15 Urine, Clean Catch Streptococcus pneumoniae Antigen (M - Final 09/09/18 16:15 Urine, Clean Catch Legionella Antigen - Final Laboratory Results 09/09/18 12:48: WBC 6.3, RBC 3.88 L, Hgb 12.8 L, Hct 39.0 L, MCV 100.5 H, MCH 33.0 H, MCHC 32.8, RDW 13.8, RDW Differential 50.7 H, Plt Count 164, MPV 11.5, Immature Gran % (Auto) 0.000, Neut % (Auto) 79.0 H, Lymph % (Auto) 11.9 L, [place] % (Auto) 7.5, Eos % (Auto) 1.3, Baso % (Auto) 0.3, Absolute Neuts (auto) 5.0, Absolute Lymphs (auto) 0.75 L, Total Counted Not Reportable 09/09/18 12:48: Lactic Acid 0.7 09/09/18 12:48: Sodium 140, Potassium 4.3, Chloride 109 H, Carbon Dioxide 25.0, Anion Gap 6, BUN 26 H, Creatinine 1.65 H, Estim Creat Clear Calc 32.22, Est GFR (MDRD) Af Amer 53 L, Est GFR (MDRD) Non-Af 44 L, BUN/Creatinine Ratio 15.8, Glucose 86, Calcium 9.3, Total Bilirubin 0.40, AST 22, ALT 16, Alkaline Phosphatase 67, Total Protein 8.0, Albumin 3.3, Globulin 4.7 H, Albumin/Globulin Ratio 0.7 L 09/10/18 07:01: WBC 3.4 L, RBC 3.26 L, Hgb 10.5 L, Hct 33.3 L, MCV 102.1 H, MCH 32.2 H, MCHC 31.5 L, RDW 13.4, RDW Differential 49.4 H, Plt Count 116 L, MPV 12.1 H, Immature Gran % (Auto) 0.000, Neut % (Auto) 70.1 H, Lymph % (Auto) 18.2 L, [place] % (Auto) 8.1, Eos % (Auto) 3.0, Baso % (Auto) 0.6, Absolute Neuts (auto) 2.4, Absolute Lymphs (auto) 0.61 L, Total Counted Not Reportable 09/10/18 07:01: Sodium 141, Potassium 4.3, Chloride 112 H, Carbon Dioxide 22.0, Anion Gap 7, BUN 23 H, Creatinine 1.57 H, Estim Creat Clear Calc 32.84, Est GFR (MDRD) Af Amer 56 L, Est GFR (MDRD) Non-Af 47 L, BUN/Creatinine Ratio 14.6, Glucose 57 L, Calcium 8.1 L Current Medications Acetaminophen (Tylenol Liquid) 650 mg GT Q6H PRN PRN PRN Reason: pain/fever Enoxaparin Sodium (Lovenox) 40 mg SC DAILY@1000 [facility] Gabapentin (Neurontin) 300 mg GT BID [facility] Last Admin: 09/09/18 21:42 Dose: 300 mg Sodium Chloride () 1,000 mls @ 150 mls/hr IV .Q6H40M [facility] Last Admin: 09/10/18 03:40 Dose: 150 mls/hr Piperacillin Sod/Tazobactam (Sod 3.375 gm/ Sodium Chloride) 50 mls @ 12.5 mls/hr IV Q8 [facility] Last Admin: 09/10/18 05:31 Dose: 12.5 mls/hr Vancomycin IV Pharmacy to Dose (1 ea/ Sodium Chloride) 500 mls @ 250 mls/hr IV X1 PRN; Protocol PRN Reason: Rx to Dose Vancomycin HCl 750 mg/ Sodium (Chloride) 265 mls @ 250 mls/hr IV Q24H [facility] Levothyroxine Sodium (Synthroid) 25 mcg GT SuMoWeThFr@0600 [facility] Last Admin: 09/10/18 05:30 Dose: 25 mcg Levothyroxine Sodium (Synthroid) 50 mcg GT TuSa@0600 [facility] Ondansetron HCl (Zofran) 4 mg IV Q8H PRN PRN PRN Reason: NAUSEA/VOMITING Sodium Chloride () 5 - 15 ml IV UD PRN PRN Reason: SALINE FLUSH Medical Necessity - Tobacco Use Smoking Status: Current some day smoker Tobacco Use: Cigarettes Assessment/Plan All Active Problems (Last Reviewed 09/09/18 @ 08:58 by Alejandra Diaz) HCAP (healthcare-associated pneumonia) (Resolved) Cancer, metastatic to lung (Acute) Hypothyroidism (Acute) Immunotherapy encounter (Acute) Hyperglobulinemia (Acute) Acute rhinosinusitis (Acute) Pneumonia (Acute) Thrush, oral (Acute) Tobacco abuse (Acute) 1. Sepsis due to aspiration pneumonia * patient was tachypneic and tachycardic on admission, and with the middle lobe consolidation, he met sepsis criteria with pneumonia as the source of infection * tachycardia and tachypnea have now resolved. * he is afebrile and cough is improving * urine for strep and legionella antigen were negative. * continue IV zosyn and dc iV vancomycin. * sputum and blood cultures pending * speech therapy evaluation also pending * continue tube feeding * 2. 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 Hypothyroidism: stable. On synthroid. Nutrition: continue Jevity via PEG tube per dietary recommendations after he is reviewed by speech therapy DVT prophylaxis: lovenox Code Visit Inpatient E&M: 79399 Subs Hosp L2
--- NOTE | 2018-09-10 09:58 | NS ---
Recommend continue enteral nutrition support- recommend Jevity 1.5 via PEG at goal rate of 60mL/hour w/ 150 mL H2O flush every 4 hours to provide 2160 calories, 91.8 g protein, and 1994 mL free fluid/day. Would start at 20 mL/hour and increase by 20mL every 4 hours as pt tolerates until goal rate achieved. If bolus feeds are desired, rec 237mL Jevity 1.5 6x/day while awake w/ 75 mL H2O flush before and after each feeding to provide 2130 calories, 90.6 g protein, and 1980mL total fluid per day. Please call clinical RD w/ further questions at [phone]. Jacky Owens MS, RDN, LD
[2018-09-10] MEDS: Gabapentin 300 MG Capsule GT ×2 (10:26→21:32)
[2018-09-10] MEDS: Enoxaparin 40 MG/0.4 ML Syringe SC (10:28)
--- NOTE | 2018-09-10 12:53 | CHAPLAIN ---
Type of Pastoral Visit _x__ Initial Visit ___ Follow-up Visit ___ On-call Visit ___ General Patient Visit ___ Spiritual Assessment ___ Family Conference ___ Bereavement ___ Rapid Response ___ Code Blue ___ Other (describe below) Pastoral Care Referral From _x__ Patient ___ Family ___ Nurse ___ Physician ___ Ios Developer ___ Escrow Clerk ___ Other (describe below) Sacrament/Intervention _x__ Active listening ___ Anointing ___ Orthodoxy ___ Bereavement ___ Communion ___ Gema exploration ___ _x__ Life review _x__ Prayer ___ Reconciliation ___ Sacrament of Sick _x__ Supportive presence ___ Wedding ___ Other (describe below) Pastoral Comments patient is talkative about life, experiences, and cancer; pt is a [place]et and talks about his life in and out of ; pt is not a member of any [employer] but welcomes the conversation and prayers
[2018-09-10 14:13] VITALS: BP 106/74; PULSE 76; RESP 16; TEMP 36.6; O2SAT 97
[2018-09-10] MEDS: Jevity 1.5 1,000 ML 20 ML GT (17:36)
[2018-09-10 20:27] VITALS: BP 109/70; PULSE 76; RESP 18; TEMP 37.4; O2SAT 92
--- NOTE | 2018-09-10 21:53 | NURSING ---
tf resuidual checked. 6 cc. tf increased to 40cc/hr
[2018-09-11] MEDS: 0.9% Normal Saline 1,000 ML 150 ML IV ×2 (00:11→06:03)
[2018-09-11 02:38] VITALS: BP 99/52; PULSE 63; RESP 18; TEMP 36.8; O2SAT 96
[2018-09-11] MEDS: 0.9% NaCl Peripheral Flush Adult/Peds IV ×2 (05:13→11:40)
[2018-09-11] MEDS: Levothyroxine 25 MCG TABLET GT (05:13)
[2018-09-11 05:42] LABS: Anion Gap 6 (5-15); BUN 25 mg/dL (7-18); BUN/Creat Ratio 16.2 RATIO (10-20); Chloride 113 mmol/L (98-107); Creatinine, Serum 1.54 mg/dL (0.70-1.30); EST Glomerular Filtration Rate 48 mL/min (>60); Est Glom Filt Rate - Afr Amer 58 mL/min (>60); Estimated Creatinine Clearance 33.48 ml/min; Glucose 109 mg/dL (74-106); Potassium 4.1 mmol/L (3.5-5.1); Sodium Level 143 mmol/L (136-145)
[2018-09-11 06:17] LABS: Absolute Lymphocyte Count 0.42 X10^3/ul (0.83-4.51); Absolute Neutrophil Count 1.4 X10^3/uL (2.0-7.7); Basophil# 0.01 X10^3/uL; Basophil% 0.5 % (0-1); Eosinophil# 0.12 X10^3/uL; Eosinophils% 5.5 % (0-5); Hematocrit 30.8 % (40-54); Hemoglobin 9.9 g/dl (13.0-16.5); Lymphocyte # 0.42 X10^3/ul (4.0); Lymphocyte % 19.1 % (19-41); Mean Corp Hgb Conc 32.1 g/gl (32-36); Mean Corpuscular Hgb 32.4 pg (27.0-32.0); Mean Corpuscular Volume 100.7 fL (80-94); Mean Platelet Vol. 11.7 fl (6.2-12.0); Monocyte# 0.25 X10^3/uL; Monocyte% 11.4 % (0-10); Neutrophil % 63.5 % (47-70); Platelet Count 104 K/mm3 (150-450); RBC Distribution Width SD 46.6 fl (35.1-43.9); Red Blood Count 3.06 M/mm3 (4.6-6.2); White Blood Count 2.2 K/mm3 (4.4-11.0)
[2018-09-11 06:26] LABS: Differential Indicated SCAN CRITERIA MET; POSITIVE COUNT NO; POSITIVE DIFFERENTIAL YES; POSITIVE MORPHOLOGY NO
[2018-09-11 08:11] VITALS: BP 98/60; PULSE 60; RESP 18; TEMP 36.8; O2SAT 95
[2018-09-11] MEDS: Enoxaparin 40 MG/0.4 ML Syringe SC (08:29)
[2018-09-11] MEDS: Gabapentin 300 MG Capsule GT (08:30)
--- NOTE | 2018-09-11 08:46 | DCINST_ITS ---
- Discharge Diagnoses Current Active Problems: Current Active and Chronic Problems (Last Reviewed 09/09/18 @ 08:58 by Alejandra Diaz) Cancer, metastatic to lung (Acute) Secondary malignant neoplasm of left lung (Chronic) Dehydration (Chronic) Hypothyroidism (Acute) Immunotherapy encounter (Acute) Hyperglobulinemia (Acute) Macroglobulinemia (Chronic) Acute rhinosinusitis (Acute) Pneumonia (Acute) You will use the following diet at home:: Other - tube feeding as directed Your liquids should be the consistency of: Regular/Thin Discharge Activity: Return to Normal Activity Weight Bearing Status: Weight bearing as tolerated Call your doctor if you observe: Fever of 101 or Higher, - - cough, shortness of breath Instructions: Bone Marrow Aspiration and Biopsy, What Is Pneumonia?, Discharge Instructions for Pneumonia Allergies/Adverse Reactions: Allergies venom-honey bee [bee venom (honey bee)] Allergy (Severe, Verified 09/09/18 12:27) Anaphylaxis pseudoephedrine HCl [From Sudafed] Adverse Reaction (Severe, Verified 09/09/18 12:27) Unknown pain Antihistamines - Alkylamine Adverse Reaction (Mild, Verified 09/09/18 12:27) Other PT UNABLE TO URINATE WHEN TAKING ANTIHISTAMINES ROUTINELY Medications to take at Discharge Gabapentin 300 mg GT BID 09/09/18 Lactose-Reduced Food/Fiber [Jevity 1.5 Dipesh Liquid] 237 ml GT Q4H 09/09/18 Levothyroxine Sodium 50 mcg GT TUSA 09/09/18 Levothyroxine [Synthroid] 25 mcg GT SUMOWETHFR 09/09/18 Cefdinir [Omnicef [equiv]] 300 mg PO Q12H 5 Days #10 capsule 09/11/18 The following prescriptions were given: Cefdinir [Omnicef [equiv]] 300 mg PO Q12H 5 Days #10 capsule Primary Care Physician: Alejandro Liu PA [Primary Care Provider] - Please follow up with your Primary Care Physician in: one week Test Results: Test results from this visit will be discussed in further detail at your follow- up appointment, if applicable. Please Follow Up With: Jonathan Max MD When: one week Proposed Discharge Date: 09/11/18
--- NOTE | 2018-09-11 08:49 | PCM.DC.SUM ---
Discharge Date and Diagnosis - Problem List Patient Problems: Active and Suspected Problems (Last Reviewed 09/09/18 @ 08:58 by Alejandra Diaz) Cancer, metastatic to lung (Acute) Hypothyroidism (Acute) Immunotherapy encounter (Acute) Hyperglobulinemia (Acute) Acute rhinosinusitis (Acute) Pneumonia (Acute) Date of Admission: 09/09/18 Date of Discharge: 09/11/18 - Primary Discharge Diagnosis Active and Suspected Problems (Last Reviewed 09/09/18 @ 08:58 by Alejandra Diaz) Cancer, metastatic to lung (Acute) Hypothyroidism (Acute) Immunotherapy encounter (Acute) Hyperglobulinemia (Acute) Acute rhinosinusitis (Acute) Pneumonia (Acute) sepsis due to aspiration pneumonia - Secondary Discharge Diagnosis Chronic Problems (Last Reviewed 09/09/18 @ 08:58 by Alejandra Diaz) Acute respiratory failure (Chronic) Aspiration pneumonia (Chronic) Cachexia (Chronic) Dysphagia (Chronic) Laryngeal cancer (Chronic) Tracheostomy in place (Chronic) PEG (percutaneous endoscopic gastrostomy) status (Chronic) 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 He was admitted through the ED on 09/09/2018 with a complaint of cough and generalized malaise as well as sputum production of one day and had large-volume emesis which came out of his tracheostomy and mouth and nose. He went to his oncologist office the next day and was counseled to follow-up with the ED on account of suspicion of pneumonia. He had just completed 10 days of Augmentin for sinusitis prior to admission. On admission in the ED, he had a chest x-ray which showed right middle lobe consolidation. The ED was also noted to be tachycardic and tachypneic meeting SIRS criteria for sepsis due to pneumonia. He did have any leukocytosis. He was admitted and managed for sepsis due to pneumonia most likely aspiration pneumonia. He was started on IV vancomycin and Zosyn. Vancomycin was tapered off and he was continued on Zosyn. Sputum culture grew gram-negative rods possibly Pseudomonas. Patient remained stable and was discharged home on 09/11/2018 with a prescription for p.o. Levaquin for 5 days. He is to follow-up with his primary care doctor and with oncology. Patient seen and examined prior to discharge. He felt well and had no complaints. He was eager to go home. Review of systems otherwise negative. Labs and vitals reviewed. Home medications reviewed and reconciled. o/e: [] Vital Signs Height 5 ft 10 in Weight: 118 lb 9.739 oz Weight in Pounds 118.6 lbs Pulse Ox 95 Temperature 98.4 F Pulse Rate 60 Respiratory Rate 18 Blood Pressure 99/60 Blood Pressure Position Semi-Fowlers General: Alert, Oriented x3, Cooperative, No apparent distress HEENT: Atraumatic, PERRLA, EOMI, Normocephalic, - - has a tracheostomy in place Oral: Dry Mucosa Neck: Supple, No JVD, Negative Carotid Bruits Lungs: - - mildly diminished breath sounds bibasally, no wheezes or crackles Cardiovascular: Regular rate, Regular Rhythm, Normal S1, Normal S2, No murmurs Abdomen: Bowel Sounds Present, Soft, Non Tender, Non-Distended, No Hepato-splenomegaly Extremities: No clubbing, No cyanosis, No edema, Capillary Refill Less than 3 Seconds Skin: No rashes, No breakdown Musculoskeletal: No Tenderness to Palpation of Joints or Extremities Lymphatic: No Cervical, Supraclavicular, or Inguinal Adenopathy Neurological: Cranial nerves II-XII grossly intact, Neuro grossly intact, Motor Exam 5/5 strength throughout Psych/Mental Status: Normal Affect, Appropriate, Alert and oriented to time, place, person, mood and affect Plan as above. Patient Problems: Active and Suspected Problems (Last Reviewed 09/09/18 @ 08:58 by Alejandra Diaz) Cancer, metastatic to lung (Acute) Hypothyroidism (Acute) Immunotherapy encounter (Acute) Hyperglobulinemia (Acute) Acute rhinosinusitis (Acute) Pneumonia (Acute) - Physical Exam Vital Signs Temp Pulse Resp BP Pulse Ox 98.2 F 60 18 98/60 95 09/11/18 08:11 09/11/18 08:11 09/11/18 08:11 09/11/18 08:11 09/11/18 08:11 Oxygen Delivery Method Room Air Weight: 118 lb 9.739 oz Body Mass Index (BMI) 0.1 Intake and Output for Last 24 Hours 09/09/18 09/10/18 09/11/18 23:59 23:59 23:59 Intake Total 1636 / 1636 3037 / 3037 2553 / 2553 Output Total 500 / 500 400 / 400 1450 / 1450 Balance 1136 / 1136 2637 / 2637 1103 / 1103 Microbiology Past 72 Hours 09/09/18 14:05 Gram Stain - Final Sputum, Expectorated/Coughed Respiratory Culture - Preliminary Gram negative jamie 09/09/18 16:15 Streptococcus pneumoniae Antigen (M - Final Urine, Clean Catch 09/09/18 16:15 Legionella Antigen - Final Urine, Clean Catch Laboratory Tests Past 24 Hrs 09/11/18 09/11/18 05:00 05:00 WBC 2.2 L RBC 3.06 L Hgb 9.9 L Hct 30.8 L MCV 100.7 H MCH 32.4 H MCHC 32.1 RDW 13.0 RDW Differential 46.6 H Plt Count 104 L MPV 11.7 Immature Gran % (Auto) 0.000 Neut % (Auto) 63.5 Lymph % (Auto) 19.1 [place] % (Auto) 11.4 H Eos % (Auto) 5.5 H Baso % (Auto) 0.5 Absolute Neuts (auto) 1.4 L Absolute Lymphs (auto) 0.42 L Total Counted Not Reportable Sodium 143 Potassium 4.1 Chloride 113 H Carbon Dioxide 24.0 Anion Gap 6 BUN 25 H Creatinine 1.54 H Estim Creat Clear Calc 33.48 Est GFR (MDRD) Af Amer 58 L Est GFR (MDRD) Non-Af 48 L BUN/Creatinine Ratio 16.2 Glucose 109 H Calcium 8.0 L Discharge Diet: - - tube feeding Discharge Activity: Return to Normal Activity Weight Bearing Status: Weight bearing as tolerated Call your doctor if you observe: Fever of 101 or Higher, - - cough, shortness of breath Home Medications: Medications to take at Discharge Gabapentin 300 mg GT BID 09/09/18 Lactose-Reduced Food/Fiber [Jevity 1.5 Dipesh Liquid] 237 ml GT Q4H 09/09/18 Levothyroxine Sodium 50 mcg GT TUSA 09/09/18 Levothyroxine [Synthroid] 25 mcg GT SUMOWETHFR 09/09/18 levoFLOXacin tablet [Levaquin tablet] 500 mg PO DAILY #5 tablet 09/11/18 Following Prescrptions Were Given to Patient: levoFLOXacin tablet [Levaquin tablet] 500 mg PO DAILY #5 tablet Primary Care Physician: Alejandro Liu PA [Primary Care Provider] - Please follow up with your Primary Care Physician in: one week Please Follow Up With: Jonathan Max MD When: one week Patient Instructions: Bone Marrow Aspiration and Biopsy, What Is Pneumonia?, Discharge Instructions for Pneumonia Disposition: Home Minutes spent on discharge:: 35 Patient Condition:: Stable Medical Necessity - Tobacco Use Smoking Status: Current some day smoker Tobacco Use: Cigarettes Meaningful Use Info Meaningful Use Diagnoses (Choose all that apply): None applicable Code Visit Inpatient E&M: 87781 Disch Hosp
[2018-09-11 11:36] VITALS: BP 99/60; PULSE 60; RESP 18; TEMP 36.9; O2SAT 95
--- NOTE | 2018-09-12 13:25 | CASEMGMT ---
RN EVELYN Discharge Follow-Up Phone Call. Lace: 10 Strata: 3 Discharge Date: 09/12/18 Adm Dx: RLL pneumonia Attempted discharge follow-up phone call. No answer. Message left for pt to return call to Ally CRUZ RN, CM if he has any questions about the discharge instructions, medications, appts, or any other questions/concerns. Phone number provided. Sintia CH RN CM
== END 2018-09-11 12:01 | disposition home or self-care (01) | DRG 871 ==
LOC: ED 13:25 → MS3 14:21
PROVIDERS: Admitting Provider Family Medicine; Emergency Provider Emergency Medicine; Family Provider Physician Assistant; PCP Physician Assistant; Referring Provider Family Medicine; Visit Provider Student in an Organized Health Care Education/Training Program
DX: A41.9 Sepsis, unspecified organism (principal); J69.0 Pneumonitis due to inhalation of food and vomit; C78.02 Secondary malignant neoplasm of left lung; B96.5 Pseudomonas (aeruginosa) (mallei) (pseudomallei) as the cause of diseases classified elsewhere; R64 Cachexia; E03.9 Hypothyroidism, unspecified; C13.9 Malignant neoplasm of hypopharynx, unspecified; R77.1 Abnormality of globulin; F17.210 Nicotine dependence, cigarettes, uncomplicated; Z93.0 Tracheostomy status; Z93.1 Gastrostomy status; Z92.3 Personal history of irradiation; Z85.118 Personal history of other malignant neoplasm of bronchus and lung
CPT/HCPCS: 31720; 36591; 71046; 80048; 80053; 83605; 83735; 84100; 84443; 85025; 87040; 87070; 87077; 87184; 87186; 87205; 87449; 92610; 93005; 94640; 96360; 96361; 97161; 97166; 97802; 99284; 99406; J7030; J7050; A4216

== ENCOUNTER → 2018-12-02 08:32 | Outpatient (CLI) | payer MEDICARE, OTHER, SELFPAY ==
[2018-11-18 09:32] VITALS: BMI 16.9
[2018-12-01 08:23] VITALS: BMI 16.9
--- NOTE | 2018-12-02 08:40 | CT_ITS ---
STUDY: CT ABDOMEN AND PELVIS WITHOUT CONTRAST REASON FOR EXAM: Male, 73 years old. Restaging esophageal and tongue cancer. RADIATION DOSAGE (If Supplied By Facility): CTDIvol = ( 9.05 ) mGy, DLP = ( 742.53 ) mGycm TECHNIQUE: Transaxial images were obtained from the dome of the diaphragm to the symphysis pubis without oral contrast, and without intravenous contrast. Sagittal and coronal images were reconstructed. Individualized dose optimization techniques were used for this CT. COMPARISON: CT of the chest, December 02, 2018 and August 13, 2018.. FINDINGS: There is increasing density with questionable mucous plugging and bronchial thickening in the left lower lobe with associated calcific densities. Calcified granulomata are also seen in the left upper and right lower lobes. The visualized portions of the heart are within normal limits. There is a small pericardial effusion. The liver is of normal size and contour. There are scattered calcified granulomata. There are multiple hypoechoic masses in the liver consistent with simple cysts. The largest in the anterior right liver measures 3.8 x 2.7 x 3.1 cm. Normal gallbladder and extrahepatic biliary system. There are multiple benign calcified granulomata of the spleen. Normal pancreas. Normal bilateral adrenal glands. There is a 2.2 x 1.5 x 2.4 cm cyst laterally in the mid right kidney with minimal peripheral calcification. No renal calculi. There is a triangular 0.8 x 0.6 x 0.3 cm calcification in a mid to lower calyx and the left kidney without other abnormality. This was noted on the August 13, 2018 study. Again seen is a gastrostomy tube in the body of an otherwise normal stomach. Normal small intestine. Normal colon. There is non-visualization of the appendix. There is diffuse atherosclerotic calcification of the abdominal aorta, without a demonstrated aneurysm. Normal inferior vena cava. Normal retroperitoneum. Normal urinary bladder. The prostate is enlarged. There is free fluid in the right posterior cul-de-sac without evidence of free air. There is no pelvic lymphadenopathy. Normal abdominal wall. There are diffuse degenerative changes of the visualized lumbar spine. There is no evidence of blastic or lytic lesions within the visualized bony structures. CT/Abdomen/Pelvis without Cont IMPRESSION: 1. Old granulomatous disease. 2. Increased density at the left lung base. Please refer to the CT of the chest for further details. 3. Multiple hepatic cysts. 4. Probable Bosniak 2 cyst in the right kidney. Follow-up with ultrasound suggested. 5. Stable nonobstructing left renal calculus. 6. Stable gastrostomy tube. 7. Enlarged prostate. Electronically Signed: Gómez London DO at 17:19 EDT Tel [phone], Service support ,
--- NOTE | 2018-12-02 08:41 | CT_ITS ---
STUDY: CT CHEST WITHOUT CONTRAST REASON FOR EXAM: Male, 73 years old. Restaging esophageal and tongue cancer. Chemotherapy x3 weeks. RADIATION DOSAGE (If Supplied By Facility): CTDIvol = ( 9.05 ) mGy, DLP = ( 742.53 ) mGycm TECHNIQUE: Transaxial imaging was performed without the administration of intravenous contrast material. Multiplanar coronal and sagittal images were reformatted. Individualized dose optimization techniques were used for this CT. COMPARISON: August 13, 2018. FINDINGS: Again seen is a tracheostomy tube with its tip 5.2 cm above the elva. The lungs are hyperexpanded. There are multiple small calcified granulomata throughout both lungs. There is a vague ground glass infiltrate in the right upper lobe best seen on image 47 of series 6. This is a new finding Slightly lower in the upper lobe is a reticular nodular infiltrate best seen on images 51 through 55. This area includes a soft tissue nodule measuring 8 x 6 mm. This was not previously seen. There is vague nodular densities with atelectasis anteriorly in the right middle lobe best seen on images 105 through 109. The largest nodule measures 5 mm in diameter. This was not previously noted. The vague reticular nodular infiltrate in the left upper lobe best seen on images 63 through 77. This was not previously noted. Diffuse interstitial density is seen in the left upper lobe with mild peribronchial thickening and probable mucous plugging. There is no associated soft tissue density in the posterior costophrenic angle measuring 2.9 x 1.2 cm in size. This has increased significantly since the prior exam. Bilateral apical pleural scarring. Normal heart. There is a pericardial effusion. Pericardium. There are calcifications of the coronary arteries. Again seen is paratracheal, this appears stable. Precarinal AP window and subcarinal lymphadenopathy. Normal hilar regions. Normal unenhanced pulmonary arteries. Normal aorta arch and descending thoracic aorta. The esophagus is mildly dilated. There is no evidence of wall thickening or mass. There are multi-level degenerative changes of the thoracic spine. There multiple hypodensity lesions seen throughout the liver thought to be cysts. These are unchanged. CT/Chest without Contrast IMPRESSION: 1. Multiple areas of groundglass and reticular nodular infiltrate in both lungs not previously noted. There is worsening infiltrate and masslike consolidation in the left lung base. 2. Stable granulomatous disease. 3. Stable mediastinal lymphadenopathy. 4. Stable hepatic cysts. 5. No other major interval change. Electronically Signed: Gómez London DO at 17:07 EDT Tel [phone], Service support ,
== END ==
PROVIDERS: Family Provider Physician Assistant; PCP Physician Assistant; Referring Provider Nurse Practitioner Family; Visit Provider Nurse Practitioner Family
DX: C02.9 Malignant neoplasm of tongue, unspecified (principal)
CPT/HCPCS: 71250; 74176

== ENCOUNTER → 2019-02-20 07:32 | Outpatient (CLI) | payer MEDICARE, OTHER, SELFPAY ==
[2019-02-10 09:14] VITALS: BMI 17.4
[2019-02-16 08:15] VITALS: BMI 17.4
--- NOTE | 2019-02-20 07:34 | CT_ITS ---
STUDY: CT CHEST WITHOUT CONTRAST REASON FOR EXAM: Male, 73 years old. Pharyngeal and lung cancer, study requested for follow-up tracheostomy. RADIATION DOSAGE (If Supplied By Facility): CTDIvol = ( 7.90 ) mGy, DLP = ( 311.68 ) mGycm TECHNIQUE: Transaxial imaging was performed without the administration of intravenous contrast material. Multiplanar coronal and sagittal images were reformatted. Individualized dose optimization techniques were used for this CT. COMPARISON: 12/02/2018. FINDINGS: The lungs are normally expanded. There is a small right lower lobe subpleural calcified granuloma seen on image 157 and measuring 3.3 mm. Conglomerate of tiny calcified granulomas seen within the right middle lobe, image 177. Mild right lower lobe and right middle lobe atelectasis. Left hemithorax reveals groundglass linear density within the left lower lobe which represents a nonspecific interstitial/inflammatory process. There is no demonstrated pleural abnormality. Normal heart and pericardium. Normal mediastinum. Normal hilar regions. Normal unenhanced pulmonary arteries. Normal aorta arch and descending thoracic aorta. There are multi-level degenerative changes of the thoracic spine. Upper abdomen: Redemonstrated multiple right and left hypoattenuated lesions, largest seen within the anterior subcapsular region of the right liver lobe, specifically image 262 and measuring approximately 3.[address]/Chest without Contrast IMPRESSION: Calcified granulomas, stable in the interval. Interstitial/reticular density within the left lower lobe, combination of findings which may indicate sequela of previous myelomatous infection. Electronically Signed: Josselyn Edgar MD at 8:02 EST , Service support ,
== END ==
PROVIDERS: Family Provider Physician Assistant; PCP Physician Assistant; Referring Provider Internal Medicine Medical Oncology; Visit Provider Internal Medicine Medical Oncology
DX: C13.9 Malignant neoplasm of hypopharynx, unspecified (principal); C78.00 Secondary malignant neoplasm of unspecified lung
CPT/HCPCS: 71250

== ENCOUNTER → 2019-07-03 08:02 | Outpatient (CLI) | payer MEDICARE, OTHER, SELFPAY ==
[2019-06-15 08:03] VITALS: BMI 18.1
[2019-06-29 07:57] VITALS: BMI 18.1
--- NOTE | 2019-07-03 08:03 | CT_ITS ---
STUDY: CT CHEST WITH CONTRAST REASON FOR EXAM: Male, 74 years old. 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 Multiplanar coronal and sagittal images were reformatted. Individualized dose optimization techniques were used for this CT. COMPARISON: Comparison is made with prior CT scanning examination dated February 20, 2019. FINDINGS: A right-sided portacatheter is seen with the tip in the superior vena cava. A tracheostomy tube is in situ. Stable apical scarring bilaterally. Hyperinflation. Calcified granuloma in the right lower lobe. New nodular densities in the left lower lobe. The largest measures 1.4 cm x 1.4 cm. This is seen on the background of the scarring and bronchiectasis in the left lower lobe. There is no demonstrated pleural abnormality. Normal heart and pericardium. Mildly enlarged precarinal lymph nodes. Normal hilar regions. Normal enhanced pulmonary arteries. Normal aorta arch and descending thoracic aorta. There are multi-level degenerative changes of the thoracic spine. Limited examination of the liver. The previously seen nodular densities in the liver have decreased in size. No new lesion is seen. CT/Chest WITH Contrast IMPRESSION: Stable scarring in the left lower lobe with 3 pulmonary nodules the largest measuring 1.4 sinus. Interval decrease in size of the hepatic nodules. A tracheostomy tube is seen in situ. Electronically Signed: Joshua Schneider, at 9:56 EDT , Service support ,
== END ==
PROVIDERS: PCP Physician Assistant; Referring Provider Internal Medicine Medical Oncology; Visit Provider Internal Medicine Medical Oncology
DX: C13.9 Malignant neoplasm of hypopharynx, unspecified (principal); C78.02 Secondary malignant neoplasm of left lung
CPT/HCPCS: 71260; 96360; 96361; J7030; Q9967; A4216

== ENCOUNTER 2019-07-28 09:45 | Emergency (ER) | payer MEDICARE, OTHER, SELFPAY ==
[2019-07-27 08:13] VITALS: BMI 17.9
[2019-07-28 09:46] VITALS: BP 118/75; PULSE 82; RESP 18; TEMP 37.8; O2SAT 97; BMI 18.4
--- NOTE | 2019-07-28 10:14 | ED.VIS.GEN ---
History of Present Illness Chief Complaint: Fever Informant: Patient Narrative: Patient states that today he came for his chemotherapy treatments and hydration. He states that when he got there they took his temperature and reported that it was over 100 and again in ED triage at 100.1. He states he does not really feel any different. He notes chronic cough and shortness of breath that is unchanged. He denies any other constitutional symptoms that are different than normal. I asked him how they took his temperature and he states he lifted up a stocking cap and had a forehead scan both in oncology and here in the ED. 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 Past Medical History - Allergies and Home Meds Allergies/Adverse Reactions: Allergies venom-honey bee [bee venom (honey bee)] Allergy (Severe, Verified 07/28/19 09:49) Anaphylaxis pseudoephedrine HCl [From Sudafed] Adverse Reaction (Severe, Verified 07/28/19 09:49) Unknown pain Antihistamines - Alkylamine Adverse Reaction (Mild, Verified 07/28/19 09:49) Other PT UNABLE TO URINATE WHEN TAKING ANTIHISTAMINES ROUTINELY Primary Care Physician: Alejandro Liu PA [Primary Care Provider] - Surgical History: - - Med port L chest Smoking Status: Current every day smoker - Family History Maternal Family History: Family History (Last Reviewed 07/07/19 @ 09:44 by Alejandra Diaz) Father Colon cancer Hypertension Mother Hypertension Family History: Reports: Cancer - Colon cancer, Heart Disease, - - No laryngeal cancer Paternal Family History: Family History (Last Reviewed 07/07/19 @ 09:44 by Alejandra Diaz) Father Colon cancer Hypertension Mother Hypertension Family History: Reports: Unknown Sibling Family History: Family History (Last Reviewed 07/07/19 @ 09:44 by Alejandra Diaz) Father Colon cancer Hypertension Mother Hypertension Family History: Reports: Cancer - breast Review of Systems General: Denies: Chills, Fever, Sweats Eyes: Denies: Visual changes - bilaterally, Diplopia ENT: Denies: Rhinorrhea, Sore throat Cardiovascular: Denies: Chest pain, Palpitations Respiratory: Denies: Dyspnea, Cough, Dyspnea on exertion Gastrointestinal: Denies: Abdominal pain, Nausea, Vomiting, Diarrhea, Melena, Hematochezia Genitourinary: Denies: Dysuria, Hematuria, Frequency Musculoskeletal: Denies: Back pain, Extremity Pain Skin: Denies: Rash, Wounds Neurological: Denies: Headache, Weakness, Numbness Physical Exam Vital Signs/Narrative: Vital Signs Temp Pulse Resp BP Pulse Ox 07/28/19 09:46 100.1 F H 82 18 118/75 97 Inital Vital Signs reviewed: Yes General: Well nourished, Well developed, No Acute Distress, - - Patient has a trach and a PEG both sites appear Head: Normocephalic, Atraumatic Eyes: Perrl, EOMI ENT: Moist mucous membranes, No rhinorrhea Neck: Supple, Nontender Cardiovascular: Regular rate, Regular rhythm, No murmurs Respiratory: No distress, CTA bilaterally, Chest nontender Abdomen: Soft, Nontender, Nondistended, Normal bowel sounds Back: Nontender, Normal Inspection Extremities: Nontender, No edema Skin: Normal color, No rash Neurological: Alert, Oriented x3, Cranial nerves II-XII grossly intact, Normal Strength, Normal Sensation Psychological: Normal affect, Normal Mood Diagnostic/Tx/Re-eval - Medical Decision Making I took 3 oral temperatures on the patient. 98.1 98.1 and 98.2. I spoke with oncology and will have the patient go over for his treatments. Return if worsening or concerns. ED Disposition - Plan for ED Patient: Disposition: Home or Assisted Living Diagnosis: Cancer, metastatic to lung, Fever Instructions: ED Fever Control (Adult) Referrals: Alejandro Liu PA [Primary Care Provider] - As Needed Jonathan Max MD [NON-STAFF] - Keep Isaac appointment
== END 2019-07-28 10:33 | disposition home or self-care (01) ==
LOC: ED 10:27
PROVIDERS: Emergency Provider Emergency Medicine; PCP Physician Assistant
DX: C78.00 Secondary malignant neoplasm of unspecified lung (principal); C13.9 Malignant neoplasm of hypopharynx, unspecified; R50.9 Fever, unspecified; F17.200 Nicotine dependence, unspecified, uncomplicated; Z82.49 Family history of ischemic heart disease and other diseases of the circulatory system
CPT/HCPCS: 99282

== ENCOUNTER → 2019-11-02 08:19 | Outpatient (CLI) | payer MEDICARE, OTHER, SELFPAY ==
[2019-10-20 08:59] VITALS: BMI 18.2
[2019-10-30 07:52] VITALS: BMI 18.2
--- NOTE | 2019-11-02 08:20 | CT_ITS ---
STUDY: CT CHEST WITH CONTRAST REASON FOR EXAM: Male, 74 years old. RESTAGING LUNG AND LARYNGEAL CA- HAD CHEMO, TONSILLECTOMY, TRACHEOSTOMY, PEG TUBE, SMOKER, COPD RADIATION DOSAGE (If Supplied By Facility): CTDIvol = ( 7.18 ) mGy, DLP = ( 174.02 ) mGycm TECHNIQUE: Transaxial imaging was performed following intravenous administration of IV 75mL Isovue-300. Multiplanar coronal and sagittal images were reformatted. Individualized dose optimization techniques were used for this CT. COMPARISON: Comparison is made with prior examination dated 07-03-19. FINDINGS: A right-sided portacatheter is seen with the tip in the superior vena cava. A tracheostomy tube is in situ. Pectus excavatum deformity. Calcified granulomas are seen in both lungs. Stable scarring in the lower lobes worse on the left side. Stable appearance of the previously seen lung nodules at the left lung base. Hyperinflation. There is no demonstrated pleural abnormality. Normal heart and pericardium. Stable mild enlargement of the precarinal lymph nodes as well as in the region of the aortopulmonary window. Normal hilar regions. Normal enhanced pulmonary arteries. There is atherosclerotic calcification of the aortic arch with tortuosity and elongation of the aortic arch and descending thoracic aorta. There are multi-level degenerative changes of the thoracic spine. Fatty infiltration of the liver. CT/Chest WITH Contrast IMPRESSION: Stable examination. Electronically Signed: Joshua Schneider, at 14:37 EDT , Service support ,
== END ==
PROVIDERS: PCP Physician Assistant; Referring Provider Internal Medicine Medical Oncology; Visit Provider Internal Medicine Medical Oncology
DX: C13.9 Malignant neoplasm of hypopharynx, unspecified (principal); C78.00 Secondary malignant neoplasm of unspecified lung
CPT/HCPCS: 71260; 96360; 96361; J7030; Q9967; A4216

== ENCOUNTER → 2020-02-19 07:21 | Outpatient (CLI) | payer MEDICARE, OTHER, SELFPAY ==
[2020-02-01 09:00] VITALS: BMI 17.6
[2020-02-15 08:10] VITALS: BMI 17.9
--- NOTE | 2020-02-19 07:21 | CT_ITS ---
STUDY: CT CHEST WITH CONTRAST REASON FOR EXAM: Male, 74 years old. HEAD AND NECK CA RADIATION DOSAGE (If Supplied By Facility): CTDIvol = ( 11.12 ) mGy, DLP = ( 337.80 ) mGycm TECHNIQUE: Transaxial imaging was performed following intravenous administration of IV 100mL Isovue-300. Multiplanar coronal and sagittal images were reformatted. Individualized dose optimization techniques were used for this CT. COMPARISON: Comparison is made with prior study dated 11/02/2019 and 07/03/2019. FINDINGS: A tracheostomy tube is in situ. A right-sided portacatheter is seen with the tip in the superior vena cava. Diffuse emphysematous changes. Stable apical scarring bilaterally. Stable bronchiectasis and scarring in the left lower lobe. Stable appearance of the nodular densities in the peripheral aspect of the left lower lobe. There is no demonstrated pleural abnormality. Normal heart and pericardium. Normal mediastinum. Normal hilar regions. Normal enhanced pulmonary arteries. Normal aorta arch and descending thoracic aorta. There are multi-level degenerative changes of the thoracic spine. There is a pectus excavatum deformity. Stable multiple hepatic cysts. CT/Chest WITH Contrast IMPRESSION: Stable examination. Electronically Signed: Joshua Schneider, at 11:31 EST , Service support ,
== END ==
LOC: CT 07:21
PROVIDERS: PCP Physician Assistant; Referring Provider Internal Medicine Medical Oncology; Visit Provider Internal Medicine Medical Oncology
DX: C13.9 Malignant neoplasm of hypopharynx, unspecified (principal); C78.02 Secondary malignant neoplasm of left lung
CPT/HCPCS: 71260; Q9967

== ENCOUNTER 2020-06-21 12:40 | Outpatient (RCR) | payer MEDICARE, OTHER, SELFPAY ==
[2020-06-07 09:02] VITALS: BMI 18.3
[2020-06-16] MEDS: COVID-19 VACC, MRNA(PFIZER)/PF 30 MCG/0.3 ML SYRINGE IM (14:13)
[2020-07-07] MEDS: COVID-19 VACC, MRNA(PFIZER)/PF 30 MCG/0.3 ML SYRINGE IM (13:12)
== END 2020-09-13 23:59 ==
LOC: IMMUN 12:40
PROVIDERS: PCP Physician Assistant; Visit Provider Family Medicine
DX: Z23 Encounter for immunization (principal)
CPT/HCPCS: 0001A; 0002A; 91300

== ENCOUNTER → 2020-08-19 07:23 | Outpatient (CLI) | payer MEDICARE, OTHER, SELFPAY ==
[2020-08-09 08:20] VITALS: BMI 18.2
[2020-08-09 08:53] VITALS: BMI 18.3
--- NOTE | 2020-08-19 07:25 | CT_ITS ---
STUDY: CT CHEST WITHOUT CONTRAST REASON FOR EXAM: Male, 75 years old. History of a lung cancer treated with the chemotherapy. Prior tracheostomy. RADIATION DOSAGE (If Supplied By Facility): CTDIvol = ( 6.47 ) mGy, DLP = ( 255.52 ) mGycm TECHNIQUE: Transaxial imaging was performed without the administration of intravenous contrast material. Multiplanar coronal and sagittal images were reformatted. Individualized dose optimization techniques were used for this CT. COMPARISON: Comparison is made with prior study dated 02/19/2020. FINDINGS: A tracheostomy tube is in situ. This is unchanged. A right-sided portacatheter is seen with the tip in the superior vena cava. Stable bronchiectasis and scarring in the left lower lobe. Stable appearance of the peripheral nodular densities in the left lower lobe. Scattered calcified granulomas in the left upper lobe. Calcified granuloma in the peripheral aspect of the right lower lobe as well. There is no demonstrated pleural abnormality. There are calcifications of the coronary arteries. There are multiple small lymph nodes within the mediastinum, which are normal in size and morphology most compatible with reactive lymph hyperplasia. Calcified left hilar lymph nodes. Normal unenhanced pulmonary arteries. Normal aorta arch and descending thoracic aorta. There are multi-level degenerative changes of the thoracic spine. Stable hepatic cysts. CT/Chest without Contrast IMPRESSION: Stable examination. Electronically Signed: Joshua Schneider MD at 10:30 EDT , Service support ,
== END ==
PROVIDERS: PCP Physician Assistant; Referring Provider Nurse Practitioner Family; Visit Provider Nurse Practitioner Family
DX: C78.00 Secondary malignant neoplasm of unspecified lung (principal); E86.0 Dehydration
CPT/HCPCS: 71250; 96360; 96361; J7030; A4216

== ENCOUNTER → 2020-08-23 12:00 | Outpatient (CLI) | payer MEDICARE, OTHER, SELFPAY ==
[2020-08-22 08:00] VITALS: BMI 18.6
[2020-08-23 12:33] LABS: Protein, Urine (Random) 29.5 mg/dL (<11.9); Protein:Creat Ratio 202 mg/g CRE (0-200)
== END ==
PROVIDERS: PCP Physician Assistant; Visit Provider Internal Medicine Nephrology
DX: N18.4 Chronic kidney disease, stage 4 (severe) (principal)
CPT/HCPCS: 82570; 84156

== ENCOUNTER → 2020-11-02 12:27 | Outpatient (CLI) | payer MEDICARE, OTHER, SELFPAY ==
[2020-10-20 13:25] VITALS: BMI 17.6
[2020-11-01 09:36] VITALS: BMI 18.1
--- NOTE | 2020-11-02 12:28 | CT_ITS ---
STUDY: CT SOFT TISSUE NECK WITH CONTRAST REASON FOR EXAM: Male, 75 years old. FACIAL MASS. History of hypopharyngeal carcinoma with lung metastasis. Tracheostomy. RADIATION DOSAGE (If Supplied By Facility): CTDIvol = ( 11.17 ) mGy, DLP = ( 306.92 ) mGycm TECHNIQUE: The patient was scanned in a multi-detector CT scanner. High resolution transaxial imaging was performed following intravenous administration of . Sagittal and coronal images were reconstructed. Individualized dose optimization techniques were used for this CT. COMPARISON: Comparison is made with prior study dated 04/11/2017. FINDINGS: A right-sided Port-A-Cath is seen with the tip in the superior vena cava. There is a 6.4 mm x 16.8 mm density in the right maxillary region. This is very superficial and may represent focal skin thickening. Clinical correlation is recommended. Normal bilateral parotid glands. Normal bilateral printing table hand spaces. Normal bilateral parapharyngeal spaces. Normal bilateral carotid spaces. Normal bilateral sublingual and submandibular glands and spaces. Normal visualized nasopharynx. Normal retropharyngeal space. Normal perivertebral space. Normal visualized bilateral faucial tonsils. The visualized tongue, tongue base and oropharynx are normal. The visualized cervical lymph nodes (levels I-) are within normal size limits, and maintain normal morphology. There is no demonstrated solid or cystic mass lesion. There is no abnormal contrast enhancement. Normal epiglottis, bilateral vallecula and hypopharynx. The pre-epiglottic and paraglottic adipose spaces are normal. Normal visualized bilateral piriform sinuses, aryepiglottic folds, vocal cords, and arytenoid-cricoid articulations. The patient is status post tracheostomy. Normal bilateral lobes of the thyroid gland. Normal visualized pulmonary apices. Normal visualized paranasal sinuses. There is multilevel degenerative changes of the cervical spine. CT/Soft Tissue Neck WITH Contrast IMPRESSION: Possible 6.4 mm x 16.8 mm soft tissue density in the skin overlying the right maxillary region. Electronically Signed: Joshua Schneider MD at 15:06 EDT , Service support ,
== END ==
PROVIDERS: PCP Physician Assistant; Referring Provider Otolaryngology; Visit Provider Otolaryngology
DX: R22.0 Localized swelling, mass and lump, head (principal); K11.8 Other diseases of salivary glands
CPT/HCPCS: 70491; Q9967; A4216

== ENCOUNTER → 2020-11-04 10:33 | Outpatient (CLI) | payer MEDICARE, OTHER, SELFPAY ==
[2020-10-26 09:57] VITALS: BMI 17.6
[2020-11-01 09:36] VITALS: BMI 18.1
--- NOTE | 2020-11-04 | ASPOS_PTH ---
PATIENT: SERENITY ESTRADA LOC: LAB U#:[id number] AGE/SX: 79/M ROOM: RE11/04/[address]: Dr. Luis Baumann MD : 1945 BED: DIS: SPEC #: [id number] RECD: 11/04/20 13:35 STATUS: CHRIS NOLAN #: [id number] GLYNN: 11/04/20 00:[address]: Luis Baumann DEPT: CYTOLOGY RECD BY: Meera Christine ENTERED: 11/04/20 13:36 SP TYPE: ASP HERE OTHR DR: LEÓN Fung Tissues: Face, NOS Procedures: Surgery Specimen Level IV Cytology Other Fine Needle Asp on Site HEADER OPERATION: Right facial mass, fine needle aspiration PRE-OP DIAGNOSIS: Right facial mass TISSUE SUBMITTED: Right facial mass DIAGNOSIS CYTOLOGY Fine needle aspiration, right facial mass (smears and cell block): Consistent with contents of benign cyst, inflamed. See microscopic description and comment. AM:mary jo 11/07/2020 COMMENT The specimen is evaluated at the time of FNA by Dr. Boles. Immediate Evaluation = Negative for malignant cells. Suggestive of contents of inflamed cyst. The findings are consistent with a benign cyst. Clinical correlation is suggested. Case has been reviewed in consultation with Dr. Hinds who concurs with the above diagnosis. IDC:[facility] CYTOLOGY STUDY Slides are reviewed. The specimen contains macrophages, acute inflammatory cells and small population of polymorphous lymphocytes. CYTOLOGY GROSS Received is 0.2 ml of reddish-jackson fluid labeled with the patient's name, and designated right facial mass. Four imprints and two paps are made from the submitted fluid and the rest is added to CytoL[employer] for cell block preparation. Submitted for cytology study. / AM:mary jo 11/04/2020 TC:2 CPT: 91161, 48179, 93758, 54716
== END ==
PROVIDERS: PCP Physician Assistant; Referring Provider Otolaryngology; Visit Provider Otolaryngology
DX: R22.0 Localized swelling, mass and lump, head (principal)
CPT/HCPCS: 10021; 88161; 88305

== ENCOUNTER → 2021-02-20 14:31 | Outpatient (CLI) | payer MEDICARE, OTHER, SELFPAY ==
--- NOTE | 2021-02-20 14:42 | CT_ITS ---
STUDY: CT CHEST WITHOUT CONTRAST REASON FOR EXAM: Male, 75 years old. History of a lung cancer. Follow-up for chemotherapy. RADIATION DOSAGE (If Supplied By Facility): CTDIvol = ( 6.11 ) mGy, DLP = ( 221.49 ) mGycm TECHNIQUE: Transaxial imaging was performed without the administration of intravenous contrast material. Multiplanar coronal and sagittal images were reformatted. Individualized dose optimization techniques were used for this CT. COMPARISON: Comparison is made with prior examination dated 08/19/2020. FINDINGS: A tracheostomy tube is in situ. A right-sided portacatheter is seen with the tip in the superior vena cava. Stable scarring at the lung apices bilaterally. Scattered calcified granulomas. Stable reticular nodular pattern at the left lung base with areas of bronchiectasis and nodular densities which are pleural-based. These are unchanged. There is no demonstrated pleural abnormality. There are calcifications of the coronary arteries. There are multiple small lymph nodes within the mediastinum, which are normal in size and morphology most compatible with reactive lymph hyperplasia. Normal hilar regions. Normal unenhanced pulmonary arteries. There is atherosclerotic calcification of the aortic arch with tortuosity and elongation of the aortic arch and descending thoracic aorta. There are multi-level degenerative changes of the thoracic spine. Stable 2.1 cm x 2 cm cyst in the anterior aspect of the right lobe of the liver. CT/Chest without Contrast IMPRESSION: Stable examination. Electronically Signed: Joshua Schneider MD at 10:22 EST , Service support ,
== END ==
PROVIDERS: PCP Physician Assistant; Referring Provider Nurse Practitioner Family; Visit Provider Nurse Practitioner Family
DX: C32.9 Malignant neoplasm of larynx, unspecified (principal); C78.00 Secondary malignant neoplasm of unspecified lung
CPT/HCPCS: 71250; 96360; 96361; J7030; A4216

== ENCOUNTER 2021-07-17 10:34 | Outpatient (CLI) | payer MEDICARE, OTHER, SELFPAY | END 2021-07-17 23:59 | disposition home or self-care (01) | LOC: RAD 10:36 | PROVIDERS: PCP Physician Assistant; Referring Provider Internal Medicine Critical Care Medicine; Visit Provider Internal Medicine Critical Care Medicine | DX: C13.9 Malignant neoplasm of hypopharynx, unspecified (principal) | CPT/HCPCS: 74230 ==

== ENCOUNTER → 2021-08-03 | Outpatient (CLI) | payer MEDICARE, OTHER, SELFPAY ==
--- NOTE | 2021-08-03 07:19 | CT_ITS ---
STUDY: CT CHEST WITHOUT CONTRAST REASON FOR EXAM: Male, 76 years old. Assess response to treatment; hypopharyngeal ca RADIATION DOSAGE (If Supplied By Facility): CTDIvol = ( 10.81 ) mGy, DLP = ( 429.42 ) mGycm TECHNIQUE: Transaxial imaging was performed without the administration of intravenous contrast material. Individualized dose optimization techniques were used for this CT. COMPARISON: Comparison is made with prior study dated 02/20/2021. FINDINGS: CHEST A tracheostomy tube is in situ. This is unchanged. A right-sided portacatheter is seen with the tip in the superior vena cava. Stable scarring in the lung apices. Persistent nodular densities in the posterior segment of the left lower lobe. The nodules have increased in size since prior study. Metastatic disease should be ruled out. The largest nodule measures 1.8 cm x 1.8 cm. Stable linear scarring at the right lung base. Stable calcified granuloma in the posterior lateral aspect of the right lower lobe. There is no demonstrated pleural abnormality. There are calcifications of the coronary arteries. Normal mediastinum. Calcified left hilar lymph nodes. Normal unenhanced pulmonary arteries. There is atherosclerotic calcification of the aortic arch with tortuosity and elongation of the aortic arch and descending thoracic aorta. There are multi-level degenerative changes of the thoracic spine. Pectus excavatum deformity. Stable 2.1 cm x 2 cm cyst in the anterior aspect of the right lobe of liver. CT/Chest without Contrast IMPRESSION: Since prior study, there has been progressive increased size of the nodular densities in the left lower lobe. Metastatic disease should be ruled out. Correlation with a PET scan is recommended. Electronically Signed: Joshua Schneider MD at 9:24 EDT ,
== END | disposition home or self-care (01) ==
LOC: CT 07:19
PROVIDERS: PCP Physician Assistant; Referring Provider Nurse Practitioner Family; Visit Provider Nurse Practitioner Family
DX: C78.02 Secondary malignant neoplasm of left lung (principal); R09.3 Abnormal sputum
CPT/HCPCS: 71250

== ENCOUNTER → 2021-09-01 | Outpatient (CLI) | payer MEDICARE, OTHER, SELFPAY | END | disposition home or self-care (01) | LOC: CT 07:39 | PROVIDERS: PCP Physician Assistant; Referring Provider Internal Medicine Medical Oncology; Visit Provider Internal Medicine Medical Oncology | DX: C78.02 Secondary malignant neoplasm of left lung (principal); C13.9 Malignant neoplasm of hypopharynx, unspecified ==

== ENCOUNTER → 2021-12-13 | Outpatient (CLI) | payer MEDICARE, OTHER, SELFPAY ==
--- NOTE | 2021-12-13 07:43 | RAD_ITS ---
PROCEDURE: Portogram. DATE OF EXAMINATION: 12/13/2021. INDICATION: Male, 76 years old. Leakage from right-sided portacatheter. PHYSICIAN: Dr. SPENCER Rooney FLUOROSCOPY TIME (if supplied): (25 seconds) minutes/seconds. 6 images were obtained. Contrast was injected into the indwelling portacatheter. The justin catheter is patent. There is evidence of a leakage of the contrast at the site of the injection port. RAD/Fluoroscopy 1 Hr or Less IMPRESSION: Leakage at the site of the injection port. The portacatheter is widely patent. Electronically Signed: Joshua Schneider MD at 12:54 EDT ,
[2021-12-13] MEDS: 0.9% Saline Lock 10 ML Syringe IV (08:36)
== END | disposition home or self-care (01) ==
LOC: RAD 07:42
PROVIDERS: PCP Physician Assistant; Referring Provider Internal Medicine Medical Oncology; Visit Provider Internal Medicine Medical Oncology
DX: T82.534A Leakage of infusion catheter, initial encounter (principal)
CPT/HCPCS: 76000; Q9967; A4216

== ENCOUNTER 2022-01-16 12:34 | Day surgery (SDC) | payer MEDICARE, OTHER, SELFPAY ==
[2022-01-16] VITALS (9 sets, daily range): BP systolic 86–117; BP diastolic 58–79; PULSE 92–123; RESP 18–22; TEMP 36.8–37; O2SAT 93–100; BMI 18.0
[2022-01-16] MEDS: Lactated Ringers 1,000 ML 75 ML IV (13:36)
[2022-01-16] MEDS: Cefazolin 2 GM in 0.9% Normal Saline 100 ML IV (14:55)
[2022-01-16] MEDS: Lidocaine 1%/Epi 1:200 (30ml) 30 ML AMPUL (15:40)
--- NOTE | 2022-01-16 16:30 | RAD_ITS ---
STUDY: X-RAY CHEST REASON FOR EXAM: Male, 76 years old. line placement TECHNIQUE: XR Chest 1 View COMPARISON: 3.4.22 FINDINGS: There is atherosclerotic calcification of the aortic arch with tortuosity. There are diffuse degenerative changes of the visualized thoracic spine. There is degenerative osteoarthritis of the bilateral shoulders. There is a left Port-A-Cath and/or mediport in place. The tip is in the atrium. There is a tracheostomy tube. The tip is at the level of the clavicles. There is no pneumothorax. Normal size heart. Normal mediastinum and anival. Normal visualized pulmonary arteries. There is no demonstrated abnormality of the visualized soft tissue structures of the upper abdomen. RAD/CXR for Line Placement IMPRESSION: There are no acute findings. Electronically Signed: Omer Dyer MD at 16:45 EDT ,
--- NOTE | 2022-01-16 16:40 | SUR.PHASEI ---
DEEP SUCTION VIA TRACH FOR THIS LEVINE SECRETIONS PER PATIENT REQUEST, HAS BEEN COUGHING FREQUENTLY AND EXPECTORATING SOME SECRETIONS, BUT PATIENT ASKING FOR FURTHER ASSISTANCE. DR BENTLEY WAS AT BEDSIDE AND HEARD PATIENT REQUEST.
--- NOTE | 2022-01-17 10:25 | OP.PCM_ITS ---
Report of Operation Date of Procedure: 01/16/22 Pre-Operative Diagnosis: metastatic head and neck cancer, need for IV access Post-Operative Diagnosis: same Surgery/Procedure Performed:: placement of permanent indwelling tunneled catheter in left subclavian vein with subcutaneous port Surgeon: Demetria Griffin Type of Anesthesia: MAC Anesthesiologist: Heraclio Monk Specimen's removed: none Estimated Blood Loss (mL): < 10 ml Fluids Replaced: 600 ml RL Description of Procedure: After informed consent was given, the patient was brought to the Operating Room. Appropriate time out protocol was followed. The patient was then placed in the supine position. The patient was then given IV conscious sedation for anesthesia. The patient?s upper chest and neck were then prepped with a surgical skin preparation and sterile surgical drapes were placed. After proper landmarks were ascertained, the skin at the upper right chest area was then infiltrated with 1% xylocaine with epinephrine. A needle trocar was then inserted into the area of the right subclavian vein however, the right subclavian vein could not be localized, despite numerous attempts. The patient has had previous head and neck radiation bilaterally due to his head and neck cancer, and he has had previous left and right catheter placements of the subclavian veins. Therefore the left subclavian vein was approached. (The internal jugular veins were noted to be partially occluded by previous CT scans.) After proper landmarks were ascertained, the skin at the left upper chest area was then infiltrated with local anesthetic with epinephrine. A needle trocar was inserted in the the left subclavian vein and there was good aspiration of venous blood. A wire was then threaded into the needle trocar and this was visualized under fluoroscopy to ensure that the wire was in the left subclavian vein. Once this was done, then the After proper landmarks were ascertained, the skin at the upper left chest area was then infiltrated with 1% xylocaine with epinephrine. A needle trocar was then inserted into the left subclavian vein and there was good aspiration of venous blood. A wire was then threaded into the needle trocar and this was visualized under fluoroscopy to ensure that the wire was in the left subclavian vein. Once this was done, then the needle trocar was removed. A small skin roxann was made with an 11 blade knife at the wire entrance site. The dilator with the introducer sheath attached was then placed over the wire into the left subclavian vein via the Seldinger technique and this was visualized under fluoroscopy. The dilator and sheath were in proper position as visualized by fluoroscopy in real time. The wire and dilator were then removed. The catheter was then threaded into the introducer sheath and was positioned with its tip at the junction of the superior vena cava and the right atrium as visualized under fluoroscopy in real time. I personally reviewed all of the above fluoroscopic images and noted that the positions of the wire and catheter were correct so that the next step could be conducted. The catheter was flushed with a heparin saline mixture prior to placement. A subcutaneous pocket was then created caudad to the catheter insertion site. A transverse skin incision was made after the skin and subcutaneous tissues were infiltrated with local anesthetic. Blunt dissection was then used to create a space large enough for placement of the subcutaneous port. Hemostasis was carefully controlled with electrocautery. The port was sutured to the subcutaneous fascia using vicryl suture at three sites. The catheter was then tunneled into the subcutaneous pocket. The excess catheter was transected. The catheter was then attached to the subcutaneous port using hospice manager?s guidelines. The port was then placed in the subcutaneous pocket and the sutures were ligated. The subdermal incisional sites were reapproximated with interrupted vicryl suture. The skin was reapproximated with monocryl suture in a subcuticular fashion. Cavilon and steristrips were used fo r reinforcement of the skin closure and a sterile opsite dressing was applied. Sponge, needle, and instrument count were verified and correct at the time of skin closure. The patient was brought to the Recovery Room in stable condition Grafts/Implants Used: see nursing noted Complications none noted Admit VTE Documentation VTE Present on Admission: Yes VTE Mechan Device Prophylaxis: SCD's
== END 2022-01-16 18:30 | disposition home or self-care (01) ==
LOC: SDC 12:37 → AC 12:39
PROVIDERS: PCP Physician Assistant; Visit Provider Surgery
PROC: (CPT 36561; principal; 2022-01-16 14:30)
DX: T85.9XXA Unspecified complication of internal prosthetic device, implant and graft, initial encounter (principal); C78.00 Secondary malignant neoplasm of unspecified lung; C76.0 Malignant neoplasm of head, face and neck; E03.9 Hypothyroidism, unspecified; Z87.891 Personal history of nicotine dependence; G62.9 Polyneuropathy, unspecified
CPT/HCPCS: 36561; 00532; 71045; 77001; J7050; J7120; C1788

== ENCOUNTER 2022-01-17 05:50 | Emergency (ER) | payer MEDICARE, OTHER, SELFPAY ==
[2022-01-17 05:53] VITALS: BP 140/80; PULSE 85; RESP 16; TEMP 36.6; O2SAT 97; BMI 18.0
[2022-01-17] MEDS: Lidocaine Jelly 2% 20 ML Syringe (URO-JET) 1 APPLIC TOPICAL (06:12)
[2022-01-17 06:52] VITALS: BP 140/80; PULSE 85; RESP 16; O2SAT 97
--- NOTE | 2022-01-17 06:53 | EX.ED.DYSGE1 ---
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 Because of the laryngeal cancer he has had to have PEG tubes placed as well as multiple ports. He underwent surgery yesterday for new PEG tube placement as well as a new port placed. He states that he was discharged at 6 PM and since that time has not been able to urinate. He reports he feels the urge to go and notices lower abdominal discomfort but is unable to go. He denies any previous history of retention but with concern for this presents for evaluation [facility] Medical History Abnormal sputum amount Acute nontraumatic kidney injury Adverse effect of antineoplastic and immunosuppressive drugs Agranulocytosis secondary to cancer chemotherapy Antineoplastic chemotherapy induced anemia Diarrhea Dietary restriction Former smoker History of renal disease Hypermagnesemia Long-term use of high-risk medication Neuropathy Oral candidiasis pegtube Pneumonia port placement Primary malignant neoplasm of hypopharynx RUQ abdominal pain Secondary malignant neoplasm of lung Shortness of breath on exertion Thyroid disease tracheotomy and laryngeal biopsy Wears glasses Wheezing Home Medications gabapentin 300 mg/6 mL (6 mL) oral solution 300 mg G-tube BID nerve pain 09/09/18 [History Last Taken Unknown] lactose-reduced food with fiber 0.06 gram-1.5 kcal/mL oral liquid 237 ml G-tube Q4H nutrition 09/09/18 [History Last Taken Unknown] levothyroxine 50 mcg tablet 50 mcg PO DAILY #30 tabs 08/22/21 [Rx Last Taken Unknown] morphine 10 mg/5 mL oral solution 5 mg (2.5 mL) PO Q4H 2 days #30 mL 01/16/22 [Rx Last Taken Unknown] oxycodone 5 mg/5 mL oral solution 5 mg (5 mL) PO BID PRN pain 3 days #30 mL 01/16/22 [Rx Last Taken Unknown] Allergy/AdvReac Type Severity Reaction Status Date / Time venom-wasp Allergy Anaphylaxis Verified 01/16/22 13:24 pseudoephedrine HCl AdvReac Severe Unknown Verified 01/16/22 13:24 [From Sudafed] Antihistamines - Alkylamine AdvReac Mild Other Verified 01/16/22 13:24 Family History Father Colon cancer Hypertension Mother Hypertension Surgical History History of surgery Hx of tonsillectomy Social History Smoking Status: Current some day smoker tobacco type: cigarettes alcohol intake: never substance use type: does not use ROS ROS ED Constitutional Constitutional ED: Denies chills or fever(s) Cardiovascular Cardiovascular: Denies chest pain Respiratory/Chest Respiratory/Chest: Reports dyspnea Gastrointestinal Gastrointestinal: Reports abdominal pain; Denies diarrhea, nausea or vomiting Genitourinary Genitourinary ED: Reports other Details: Positive difficulty urinating ; Denies dysuria Musculoskeletal Musculoskeletal: Denies back pain Integumentary Denies rash Neurologic Neurologic: Denies headache(s) Hematologic/Lymphatic Hematologic/Lymphatic: Reports easy bleeding and easy bruising EXAM Physical Exam Const Vital Signs: 01/17/22 05:53 Temperature 97.9 F Temperature Source Temporal Pulse Rate 85 Respiratory Rate 16 Blood Pressure 140/80 H Blood Pressure Mean 100 Pulse Ox 97 Oxygen Delivery Method Room Air Positive cachectic General Appearance ED: cachectic Nutritional Appearance: cachectic Eyes PERRL and EOMs intact bilaterally Neck Neck Narrative: Tracheostomy tube in place without surrounding soft tissue changes to suggest infection Resp normal respiratory effort Resp Narrative: Breath sounds are diminished throughout with faint expiratory wheeze in the bilateral bases but no signs of respiratory distress Cardio regular rate and regular rhythm GI non-distended GI Narrative: There is palpation in the suprapubic region with mild organomegaly at the site consistent with distended bladder/urinary retention. Otherwise remainder of the abdomen exam is normal without pulsatile mass or fluid wave Auscultation: normoactive bowel sounds Palpation: soft Extremity normal to inspection Neuro oriented x3 and CN's II-XII intact bilaterally Sensorium / Orientation: alert Psych mental status grossly normal Skin no rashes or lesions noted Skin Narrative: Skin turgor is increased MDM MDM MDM Narrative Medical decision making narrative: Patient presented to the ER and in no acute distress with stable vital. His history and exam is most consistent with urinary retention. This was most likely caused by an anesthetic given when the PEG tube and port were placed yesterday. As his only been 12 hours since patient last urinated I do not have high concern for acute kidney injury and therefore do not feel there is need for laboratory studies. A Maxwell catheter was placed and there was approximately 500 mL of clear urine resulted. Patient reported feeling much better after this and there was no longer organomegaly or abdominal pain on palpation. Therefore at this time the catheter will be kept in to prevent any recurrence of the retention and he can follow-up with urology on an outpatient basis Discharge Plan Triage Chief Complaint: Complaint ED Provider: Brad Kotahri Dx/Rx/DC Orders Clinical Impression: Acute urinary retention, Laryngeal cancer, PEG (percutaneous endoscopic gastrostomy) status Instructions: ED Maxwell Catheter, Care, ED Urinary Retention, Male Prescriptions: No Action levothyroxine 50 mcg tablet 50 mcg PO DAILY Qty: 30 2RF gabapentin 300 MG/6 ML solution 300 mg GT BID lactose-reduced food with fibr 237 ML liquid 237 ml GT Q4H morphine 10 mg/5 mL solution 5 mg PO Q4H 2 Days Qty: 30 0RF oxycodone 5 mg/5 mL solution 5 mg PO BID PRN (Reason: pain) 3 Days Qty: 30 0RF Primary Care Provider: Alejandro Liu Referrals: Samuel Martinez MD [Med Staff - Active Staff] - Alejandro Liu PA [Primary Care Provider] - Activity Restrictions/Additional Instructions: Please keep the Maxwell catheter in to prevent further bouts/recurrence of urinary retention. Follow-up with urology as directed to discuss having the catheter removed and further testing if necessary for the urinary retention. Disposition Disposition: Home, Self Care
--- NOTE | 2022-01-17 07:20 | ED.RN ---
MONREAL CATHETER CONVERTED TO LEG BAG. MONREAL CATHETER EMPTIED FOR 750 CC CLEAR STRAW COLORED URINE. SPOUSE INSTRUCTED ON HOW TO EMPTY THE LEG BAG CATHETER AT HOME. SPOUSE & PT DENY QUESTIONS OR CONCERNS
== END 2022-01-17 07:20 | disposition home or self-care (01) ==
PROVIDERS: Emergency Provider Emergency Medicine; PCP Physician Assistant; Visit Provider Emergency Medicine
DX: R33.9 Retention of urine, unspecified (principal); Z93.1 Gastrostomy status; C32.9 Malignant neoplasm of larynx, unspecified; Z80.0 Family history of malignant neoplasm of digestive organs
CPT/HCPCS: 51702; 99283

== ENCOUNTER 2022-01-24 09:48 | Emergency (ER) | payer MEDICARE, OTHER, SELFPAY ==
[2022-01-24 09:50] VITALS: BP 101/64; PULSE 98; RESP 14; TEMP 36.8; O2SAT 93; BMI 18.0
--- NOTE | 2022-01-24 09:53 | ED.RN ---
PT IRRITABLE D/T PAIN PER FAMILY MEMBER. PT THROUGH PULSE OX IN TRIAGE AND PUSH FAMILY MEMBER'S HANDS AWAY FROM HIM.
--- NOTE | 2022-01-24 10:01 | EX.ED.DYSGE1 ---
HPI History of Present Illness Chief Complaint: Complaint Informant: patient and spouse/S.O. Narrative Narrative: 76-year-old male with a history of laryngeal cancer status post tracheostomy and PEG placement. Little over a week ago he also underwent surgery for PEG redo and port placement. He was noted to have urinary retention after surgery and Maxwell catheter was placed. He followed up with urology yesterday and had the catheter removed. He states he was discharged home around 9 AM. Since that time he has not been able to urinate and feels very uncomfortable. He denies any fever. Denies any flank pain. [facility] Medical History Abnormal sputum amount Acute nontraumatic kidney injury Adverse effect of antineoplastic and immunosuppressive drugs Agranulocytosis secondary to cancer chemotherapy Antineoplastic chemotherapy induced anemia Diarrhea Dietary restriction Former smoker History of renal disease Hypermagnesemia Long-term use of high-risk medication Neuropathy Oral candidiasis pegtube Pneumonia port placement Primary malignant neoplasm of hypopharynx RUQ abdominal pain Secondary malignant neoplasm of lung Shortness of breath on exertion Thyroid disease tracheotomy and laryngeal biopsy Wears glasses Wheezing Home Medications gabapentin 300 mg/6 mL (6 mL) oral solution 300 mg G-tube BID nerve pain 09/09/18 [History Last Taken Unknown] lactose-reduced food with fiber 0.06 gram-1.5 kcal/mL oral liquid 237 ml G-tube Q4H nutrition 09/09/18 [History Last Taken Unknown] levothyroxine 50 mcg tablet 50 mcg PO DAILY #30 tabs 08/22/21 [Rx Last Taken Unknown] morphine 10 mg/5 mL oral solution 5 mg (2.5 mL) PO Q4H 2 days #30 mL 01/16/22 [Rx Last Taken Unknown] oxycodone 5 mg/5 mL oral solution 5 mg (5 mL) PO BID PRN pain 3 days #30 mL 01/16/22 [Rx Last Taken Unknown] Allergy/AdvReac Type Severity Reaction Status Date / Time venom-wasp Allergy Anaphylaxis Verified 01/16/22 13:24 pseudoephedrine HCl AdvReac Severe Unknown Verified 01/16/22 13:24 [From Sudafed] Antihistamines - Alkylamine AdvReac Mild Other Verified 01/16/22 13:24 Family History Father Colon cancer Hypertension Mother Hypertension Surgical History History of surgery Hx of tonsillectomy Social History Smoking Status: Current some day smoker tobacco type: cigarettes alcohol intake: never substance use type: does not use ROS ROS ED Constitutional Constitutional ED: Denies chills or weight loss Eyes Eyes: Denies change in vision or diplopia ENT ENT ED: Denies ear pain, rhinorrhea or sore throat Cardiovascular Cardiovascular: Denies chest pain, orthopnea, palpitations or racing heartbeat Respiratory/Chest Respiratory/Chest: Denies cough, dyspnea or orthopnea Gastrointestinal Gastrointestinal: Denies abdominal pain, diarrhea, nausea or vomiting Genitourinary Genitourinary ED: Reports other Details: Urinary retention ; Denies dysuria, hematuria or urinary frequency Musculoskeletal Musculoskeletal: Denies arthralgias or myalgias Integumentary Denies abscess or rash Neurologic Neurologic: Denies headache(s) or weakness Psychiatric Psychiatric: Denies anxiety, depression, suicidal ideation or suicidal thoughts Endocrine Endocrinology: Denies polydipsia, polyphagia or polyuria Allergic/Immunologic Allergic/Immunologic ED: Denies mouth swelling, tongue swelling or urticaria EXAM Physical Exam Const Vital Signs: 01/24/22 09:50 Temperature 98.2 F Temperature Source Temporal Pulse Rate 98 Respiratory Rate 14 Blood Pressure 101/64 Blood Pressure Mean 76 Pulse Ox 93 Oxygen Delivery Method Room Air Positive well developed and cachectic Constitutional Narrative: Tracheostomy site clean dry intact well-healed General Appearance ED: well developed and cachectic Nutritional Appearance: cachectic HEENT Reports normocephalic, head/scalp atraumatic and moist mucous membranes Eyes PERRL and EOMs intact bilaterally Neck no lymphadenopathy, supple and no JVD Resp normal respiratory effort and clear to auscultation bilaterally Cardio regular rate, regular rhythm and no murmurs GI normal to inspection, nondistended, normoactive bowel sounds and non-tender GI Narrative: PEG tube site appears without complication there is a palpable distended bladder Palpation: soft Back/Spine no CVA tenderness and normal ROM Extremity normal to inspection General Extremety ED: Negative for edema General Extremity: Negative for edema Neuro oriented x3 and CN's II-XII intact bilaterally Sensorium / Orientation: alert Motor Exam: strength 5/5 throughout Psych mental status grossly normal Mood & Affect: Negative for depressed or tearful Skin no rashes or lesions noted and no wounds MDM MDM MDM Narrative Medical decision making narrative: Maxwell catheter was placed. Urine shows no overt infection. Creatinine at baseline at 1.73. This point patient will be discharged home to follow-up with urology Lab Data Attestation: I reviewed the patient's lab results. Labs: Laboratory Results - last 24 hr 01/24/22 01/24/22 10:25 10:38 Sodium 141 Potassium 3.8 Chloride 107 Carbon Dioxide 26.0 Anion Gap 8 BUN 26 H Creatinine 1.73 H Estim Creat Clear Calc 30.26 Est GFR (MDRD) Af Amer 50 L Est GFR (MDRD) Non-Af 41 L BUN/Creatinine Ratio 15.0 Glucose 99 Calcium 9.5 Urine Color Yellow Urine Clarity Clear Urine pH 8.0 Ur Specific [place] 1.015 Urine Protein 15 H Urine Glucose (UA) Normal Urine Ketones Negative Urine Occult Blood 50 H Urine Nitrite Negative Urine Bilirubin Negative Urine Urobilinogen Normal Ur Leukocyte Esterase Negative Urine RBC 0-5 SEEN Urine WBC 0 SEEN Ur Squamous Epith Cells 0 SEEN Urine Bacteria 0 SEEN Urine Mucus 0 SEEN Discharge Plan Triage Chief Complaint: Complaint ED Provider: Taqueria Guzman Dx/Rx/DC Orders Clinical Impression: Laryngeal cancer, Acute urinary retention, Chronic kidney disease Prescriptions: No Action levothyroxine 50 mcg tablet 50 mcg PO DAILY Qty: 30 2RF gabapentin 300 MG/6 ML solution 300 mg GT BID lactose-reduced food with fibr 237 ML liquid 237 ml GT Q4H morphine 10 mg/5 mL solution 5 mg PO Q4H 2 Days Qty: 30 0RF oxycodone 5 mg/5 mL solution 5 mg PO BID PRN (Reason: pain) 3 Days Qty: 30 0RF Primary Care Provider: Alejandro Lui Referrals: Alejandro Liu PA [Primary Care Provider] -
[2022-01-24 10:44] LABS: Bacteria 0 SEEN /hpf (None Seen); Mucous, Urine 0 SEEN /hpf (<or=2+); Squamous Epithelial Cells - UA 0 SEEN /hpf (0-5); White Blood Cells 0 SEEN /hpf (0-5)
[2022-01-24 10:48] LABS: Color, Urine Yellow (Yellow); Glucose, Dipstick Normal (Normal); Ketone-Dipstick Negative (Negative); Leukocyte Esterase-Dipstick Negative /ul (Negative); Nitrite-Dipstick Negative (Negative); Occult Blood-Urine 50 /ul (Negative); Protein-Dipstick 15 mg/dl (Negative); Specific Gravity, Urine 1.015 (1.002-1.030); Urine Bilirubin Dipstick Negative (Negative); Urine Clarity Clear (Clear); Urine Urobilinogen Normal (Normal)
[2022-01-24 10:48] LABS: Anion Gap 8 (5-15); BUN 26 mg/dL (7-18); Calcium,Total 9.5 mg/dL (8.5-10.1); Chloride 107 mmol/L (98-107); Creatinine, Serum 1.73 mg/dL (0.70-1.30); EST Glomerular Filtration Rate 41 mL/min (>60); Est Glom Filt Rate - Afr Amer 50 mL/min (>60); Estimated Creatinine Clearance 30.26 ml/min; Glucose 99 mg/dL (74-106); Potassium 3.8 mmol/L (3.5-5.1); Sodium Level 141 mmol/L (136-145)
[2022-01-24] MEDS: Lidocaine Jelly 2% 20 ML Syringe (URO-JET) 1 APPLIC TOPICAL (10:51)
[2022-01-24 10:56] LABS: Red Blood Cells-Urine 0-5 SEEN /hpf (0-5)
--- NOTE | 2022-01-24 11:16 | ED.RN ---
leg bag applied per md
[2022-01-24 11:21] VITALS: BP 134/78; PULSE 66; RESP 18; TEMP 36.6; O2SAT 99
== END 2022-01-24 11:22 | disposition home or self-care (01) ==
PROVIDERS: Emergency Provider Emergency Medicine; PCP Physician Assistant; Visit Provider Emergency Medicine
DX: C32.9 Malignant neoplasm of larynx, unspecified (principal); R33.9 Retention of urine, unspecified; N18.9 Chronic kidney disease, unspecified; F17.210 Nicotine dependence, cigarettes, uncomplicated
CPT/HCPCS: 51702; 80048; 81001; 99283

== ENCOUNTER 2022-02-11 01:30 | Inpatient (IN) | payer MEDICARE, OTHER, SELFPAY ==
[2022-02-11] VITALS (58 sets, daily range): BP systolic 74–134; BP diastolic 47–97; PULSE 76–158; RESP 11–32; TEMP 36–38.5; O2SAT 90–100; BMI 18.2; BMI 18.1
[2022-02-11 01:14] LABS: Absolute Neutrophil Count 4.2 X10^3/uL (2.0-7.7); Hematocrit 30.3 % (40-54); Hemoglobin 9.2 g/dL (13.0-16.5); Mean Corp Hgb Conc 30.4 g/dL (32-36); Mean Corpuscular Hgb 31.1 pg (27.0-32.0); Mean Corpuscular Volume 102.4 fL (80-94); Neutrophil % 73.4 % (47-70); Platelet Count 169 K/mm3 (150-450); RBC Distribution Width CV 13.9 % (11.6-14.6); RBC Distribution Width SD 52.2 fl (35.1-43.9); Red Blood Count 2.96 M/mm3 (4.6-6.2); White Blood Count 5.7 K/mm3 (4.4-11.0)
--- NOTE | 2022-02-11 01:48 | EKG12_ITS ---
Test Reason : DYSRYTHMIA Blood Pressure : / mmHG Vent. Rate : 147 BPM Atrial Rate : 147 BPM P-R Int : 136 ms QRS Dur : 062 ms QT Int : 262 ms P-R-T Axes : 069 017 058 degrees QTc Int : 410 ms Sinus tachycardia with Premature atrial complexes Low voltage QRS Borderline ECG Confirmed by VALENCIA PALOMO, AKIL ([id number]), sports editor FREDY GOMEZ ([id number]) on 02/12/2022 12:55:37 PM Referred By: SHERRIE Confirmed By:AKIL BIRMINGHAM MD
--- NOTE | 2022-02-11 01:50 | EX.ED.DYSGE1 ---
HPI History of Present Illness Chief Complaint: Fever Informant: patient and spouse/S.O. Narrative Narrative: Patient presents with fever, low blood pressure, high heart rate, hypoxia. 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 He has a tracheostomy in place but does not normally require supplemental oxygen at home. Patient has complained of increased secretions this past week and malodorous urine. His oncologist sent blood and urine cultures and obtained a chest x-ray. He was noted to have a left lower lobe pneumonia and was started on Augmentin. Patient called squad tonight due to worsening symptoms. EMS notes oxygen saturation was initially 69%. Nonrebreather mask was placed over his tracheostomy with improvement in his oxygen saturations. Patient remains tachycardic in the 140-150 range. He is receiving IV fluid bolus. Family states today his temperature was up to 103. [facility] Medical History (Updated 02/11/22 @ 02:[address] Ann Gayle MD) Abnormal sputum amount Acute nontraumatic kidney injury Adverse effect of antineoplastic and immunosuppressive drugs Agranulocytosis secondary to cancer chemotherapy Antineoplastic chemotherapy induced anemia Diarrhea Dietary restriction Dysphagia Fever Former smoker History of renal disease Hypermagnesemia Long-term use of high-risk medication Malodorous urine Neuropathy Oral candidiasis pegtube Pneumonia port placement Primary malignant neoplasm of hypopharynx RUQ abdominal pain Secondary malignant neoplasm of lung Shortness of breath on exertion Tachycardia Thyroid disease tracheotomy and laryngeal biopsy Urinary tract infection Wears glasses Wheezing Home Medications gabapentin 300 mg/6 mL (6 mL) oral solution 300 mg G-tube BID nerve pain 09/09/18 [History Last Taken Unknown] lactose-reduced food with fiber 0.06 gram-1.5 kcal/mL oral liquid 237 ml G-tube Q4H nutrition 09/09/18 [History Last Taken Unknown] levothyroxine 50 mcg tablet 50 mcg PO DAILY #30 tabs 08/22/21 [Rx Last Taken Unknown] amoxicillin 250 mg-potassium clavulanate 62.5 mg/5 mL oral suspension (Augmentin) 10 ml PO TID 10 days #300 mL 02/06/22 [Rx Last Taken Unknown] ciprofloxacin 500 mg/5 mL oral suspension (Cipro) 500 mg (5 mL) PO BID #100 mL 02/06/22 [Rx Last Taken Unknown] doxazosin 4 mg tablet 4 mg PO BID 02/11/22 [History Last Taken Unknown] finasteride 5 mg tablet 5 mg PO DAILY 02/11/22 [History Last Taken Unknown] Allergy/AdvReac Type Severity Reaction Status Date / Time venom-wasp Allergy Anaphylaxis Verified 02/06/22 08:40 pseudoephedrine HCl AdvReac Severe Unknown Verified 02/06/22 08:40 [From [facility]] Antihistamines - Alkylamine AdvReac Mild Other Verified 02/06/22 08:40 Family History Father Colon cancer Hypertension Mother Hypertension Surgical History (Updated 02/11/22 @ 02:[address] Kristine Graham DO) History of surgery Hx of tonsillectomy S/P percutaneous endoscopic gastrostomy (PEG) tube placement Social History (Reviewed 02/11/22 @ 01:[address] Ann Gayle MD) Smoking Status: Current some day smoker tobacco type: cigarettes alcohol intake: never substance use type: does not use ROS ROS ED Constitutional Constitutional ED: Reports chills and fever(s) Eyes Eyes: Denies change in vision or discharge from eye(s) ENT ENT ED: Denies discharge from eye(s), rhinorrhea or sore throat Cardiovascular Cardiovascular: Denies chest pain or palpitations Respiratory/Chest Respiratory/Chest: Reports cough and dyspnea Gastrointestinal Gastrointestinal: Denies abdominal pain, nausea or vomiting Genitourinary Genitourinary ED: Reports other Details: Malodorous urine in Maxwell catheter bag. Musculoskeletal Musculoskeletal: Denies back pain or extremity pain Integumentary Denies Abrasions or rash Neurologic Neurologic: Reports weakness; Denies headache(s) Psychiatric Psychiatric: Denies anxiety or depression Allergic/Immunologic Allergic/Immunologic ED: Denies lip swelling or urticaria EXAM Physical Exam Const Vital Signs: 02/11/22 01:32 EDT 02/11/22 01:40 EDT 02/11/22 02:35 Temperature 99.5 F H 99.5 F H Temperature Source Oral Oral Pulse Rate 158 H 153 H Respiratory Rate 32 H 32 H Blood Pressure 103/65 106/65 Blood Pressure Mean 77 78 Pulse Ox 90 90 92 Oxygen Delivery Method Trach Collar Trach Collar Trach Collar 02/11/22 02:41 Temperature Temperature Source Pulse Rate 114 H Respiratory Rate 27 H Blood Pressure 95/58 L Blood Pressure Mean 70 Pulse Ox 93 Oxygen Delivery Method Trach Collar Positive cachectic General Appearance ED: cachectic Nutritional Appearance: cachectic HEENT Reports normocephalic and head/scalp atraumatic Eyes PERRL and EOMs intact bilaterally Neck supple Neck Narrative: Tracheostomy site clean. Chest Wall inspection of chest normal and palpation of chest normal Resp Resp Narrative: Diminished breath sounds bilateral bases. Cardio regular rhythm Rate: tachycardic GI non-tender Auscultation: hypoactive bowel sounds Palpation: soft Extremity normal to inspection Neuro oriented x3 and no sensory deficits noted Neuro Narrative: No focal neurologic deficits. Sensorium / Orientation: alert Psych mental status grossly normal Skin no rashes or lesions noted MDM MDM MDM Narrative Medical decision making narrative: Patient had continued IV fluids given here. Placed on equipment monitor phototypesetting. Sepsis work-up undertaken. Respiratory staff was able to suction the patient's trach and placed him on a trach collar. Blood, urine, sputum cultures all sent. Lab Data Attestation: I reviewed the patient's lab results. Labs: Laboratory Results - last 24 hr 02/11/22 02/11/22 02/11/22 01:00 EST 01:00 EST 01:00 EST WBC 5.7 RBC 2.96 L Hgb 9.2 L Hct 30.3 L MCV 102.4 H MCH 31.1 MCHC 30.4 L RDW Std Deviation 52.2 H RDW Coeff of Oz 13.9 Plt Count 169 Neut % (Auto) 73.4 H Absolute Neuts (auto) 4.2 Sodium 143 Potassium 4.6 Chloride 108 H Carbon Dioxide 29.0 Anion Gap 6 BUN 40 H Creatinine 2.42 H Estim Creat Clear Calc 21.82 Est GFR (MDRD) Af Amer 34 L Est GFR (MDRD) Non-Af 28 L BUN/Creatinine Ratio 16.5 Glucose 125 H Lactic Acid 2.1 H* Calcium 9.1 Total Bilirubin 0.40 AST 19 ALT 17 Alkaline Phosphatase 48 Total Protein 7.1 Albumin 2.2 L Globulin 4.9 H Albumin/Globulin Ratio 0.4 L Radiography Chest X-Ray - ED: 1 View, Read by ED Physician, Right Infiltrate and Left Infiltrate Diagnostic Testing: Clinical Impression(s) from Imaging Studies Chest X-Ray 02/11/22 02:15 IMPRESSION: Findings suspicious for lingular left/ lower lobe pneumonia. Right lower lobe atelectasis. Tracheostomy tube Port-A-Cath. Electronically Signed: Alyssia Rodriguez MD at 2:40 EST , EKG Initial EKG: Attestation: I personally reviewed and interpreted this EKG as follows: Interpretation: Sinus Tachycardia (Sinus tach at 147. No acute ischemia.) Treatment and Re-Evaluation Narrative: CBC reveals normal white count. Hemoglobin is 9.2 which is slightly lower than his last. Chemistry studies reveal BUN of 40 and a creatinine 2.42. This is slightly increased when compared to prior as well. Lactic acid is 2.1. LFTs unremarkable. Chest x-ray per my interpretation reveals bilateral lower lobe infiltrates. Radiology interpretation is reviewed. Patient was covered with Zosyn and vancomycin. I spoke with the hospitalist and she will admit the patient to PCU for further treatment. Discharge Plan Triage Chief Complaint: Fever ED Provider: Ann Gayle Dx/Rx/DC Orders Clinical Impression: Pneumonia, Sepsis, Respiratory failure Prescriptions: No Action levothyroxine 50 mcg tablet 50 mcg PO DAILY Qty: 30 2RF amoxicillin-pot clavulanate [Augmentin] 250-62.5 mg/5 mL suspension for reconstitution 10 ml PO TID 10 Days Qty: 300 0RF ciprofloxacin [Cipro] 500 mg/5 mL suspension,microcapsule recon 500 mg PO BID Qty: 100 0RF gabapentin 300 MG/6 ML solution 300 mg GT BID lactose-reduced food with fibr 237 ML liquid 237 ml GT Q4H morphine 10 mg/5 mL solution 5 mg PO Q4H 2 Days Qty: 30 0RF oxycodone 5 mg/5 mL solution 5 mg PO BID PRN (Reason: pain) 3 Days Qty: 30 0RF Primary Care Provider: Alejandro Liu Referrals: Alejandro Liu PA [Primary Care Provider] - Disposition Disposition: [facility]
--- NOTE | 2022-02-11 01:52 | PCM.HP.STD ---
HPI - General General Date of Admission: 02/11/22 Date of Service: 02/11/22 Chief Complaint: Fever HPI Narrative SERENITY ESTRADA, is a 76 M who presented to the emergency department was coming hospital with fever. 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 This diagnosis was made in 2014 and he is currently undergoing chemotherapy but his most recent chemotherapy was held secondary to concern of infection. He saw the oncology CARPENTER/LABOR on 02/06/2022 at which time he was complaining of malodorous and cloudy urine as well as an increase production and respiratory secretions. Blood cultures and urine cultures were obtained at that time. Urine was polymicrobial and blood cultures were negative. A chest x-ray was also performed and was suggestive of a pneumonia. He was placed on Augmentin but since that time he developed fever. He has a chronic trach and PEG. Typically he does not require supplemental oxygen at home. Patient called the squad on the day of admission secondary to worsening symptoms. EMS noted oxygen saturation was 69% upon their presentation and they placed a nonrebreather over his tracheostomy at which time his oxygen saturations improved. He was also noted to be tachycardic with heart rates in the 140-150 range and family reported to his T-max at home was 103 degrees. Vital signs on presentation demonstrated a temperature of 100 degrees, heart rate has been anywhere from 1 31-1 58, blood pressure is stable at 105/78 and this is his baseline, respiratory rate has been anywhere from 22-32 and oxygen saturations have been anywhere from 90 to 93% on trach collar at %. CBC demonstrated a normal white count, anemia which is chronic however his hemoglobin is dropped from 11.9-9.2 since 02/05/2022. He does have a slight left shift with a 73.4% neutrophilia. Coags were pending at the time of admission. Chemistry panel showed normal electrolytes however his BUN and creatinine were elevated from baseline at 40 and 2.42 respectively (baseline serum creatinine runs between 1.7 and 1.9) his lactic acid was mildly elevated at 2.1 however suspect this is related to his hypoxia and LEV. His LFTs are unremarkable. Chest x-ray showed worsening infiltrate at the right base in the left lower lobe. EKG is sinus tachycardia with no signs of ST-T wave changes consistent with acute ischemia. Cultures were obtained in the emergency department the patient was started on broad-spectrum antibiotics. He was given 1 L of IV fluids in route and another liter in the emergency department prior to admission. [facility] Medical History (Updated 02/11/22 @ 02:[address] Ann Gayle MD) Abnormal sputum amount Acute nontraumatic kidney injury Adverse effect of antineoplastic and immunosuppressive drugs Agranulocytosis secondary to cancer chemotherapy Antineoplastic chemotherapy induced anemia Diarrhea Dietary restriction Dysphagia Fever Former smoker History of renal disease Hypermagnesemia Long-term use of high-risk medication Malodorous urine Neuropathy Oral candidiasis pegtube Pneumonia port placement Primary malignant neoplasm of hypopharynx RUQ abdominal pain Secondary malignant neoplasm of lung Shortness of breath on exertion Tachycardia Thyroid disease tracheotomy and laryngeal biopsy Urinary tract infection Wears glasses Wheezing Home Medications gabapentin 300 mg/6 mL (6 mL) oral solution 300 mg G-tube BID nerve pain 09/09/18 [History Last Taken Unknown] lactose-reduced food with fiber 0.06 gram-1.5 kcal/mL oral liquid 237 ml G-tube Q4H nutrition 09/09/18 [History Last Taken Unknown] levothyroxine 50 mcg tablet 50 mcg PO DAILY #30 tabs 08/22/21 [Rx Last Taken Unknown] amoxicillin 250 mg-potassium clavulanate 62.5 mg/5 mL oral suspension (Augmentin) 10 ml PO TID 10 days #300 mL 02/06/22 [Rx Last Taken Unknown] ciprofloxacin 500 mg/5 mL oral suspension (Cipro) 500 mg (5 mL) PO BID #100 mL 02/06/22 [Rx Last Taken Unknown] doxazosin 4 mg tablet 4 mg PO BID 02/11/22 [History Last Taken Unknown] finasteride 5 mg tablet 5 mg PO DAILY 02/11/22 [History Last Taken Unknown] Allergy/AdvReac Type Severity Reaction Status Date / Time venom-wasp Allergy Anaphylaxis Verified 02/06/22 08:40 pseudoephedrine HCl AdvReac Severe Unknown Verified 02/06/22 08:40 [From [facility]] Antihistamines - Alkylamine AdvReac Mild Other Verified 02/06/22 08:40 Family History Father Colon cancer Hypertension Mother Hypertension Surgical History (Updated 02/11/22 @ 02:[address] Kristine Graham DO) History of surgery Hx of tonsillectomy S/P percutaneous endoscopic gastrostomy (PEG) tube placement Social History (Reviewed 02/11/22 @ 01:[address] Ann Gayle MD) Smoking Status: Current some day smoker tobacco type: cigarettes alcohol intake: never substance use type: does not use ROS Constitutional Constitutional: Reports fatigue, fever(s) and weakness; Denies anorexia, change in weight, chills, malaise, night sweats or other Eyes Eyes: Denies blurry vision, change in eye color, change in vision, discharge from eye(s), double vision, erythema, eye pain, loss of vision or other ENT HEENT: Denies abnormal hearing, dysphagia, ear pain, epistaxis, headache(s), hearing loss, nasal congestion, nasal discharge, post nasal drip, sinus pressure, sore throat or other Cardiovascular Cardiovascular: Denies chest pain, claudication, dyspnea on exertion, edema, lightheadedness, orthopnea, palpitations, paroxysmal nocturnal dyspnea, rapid heart rate, syncope or other Respiratory/Chest Respiratory/Chest: Reports cough, dyspnea, excessive phlegm production, productive cough, shortness of breath at rest and shortness of breath with exertion; Denies hemoptysis, wheezing or other Gastrointestinal Gastrointestinal: Denies abdominal pain, coffee ground emesis, constipation, diarrhea, dyspepsia, hematemesis, hematochezia, loose stools, melena, nausea, vomiting or other Genitourinary Genitourinary: Reports difficulty urinating and urinary hesitancy; Denies burning urination, dysuria, hematuria, nocturia, urinary frequency, urinary incontinence, urinary urgency or other Musculoskeletal Musculoskeletal: Reports back pain; Denies arthralgias, joint pain, joint stiffness, joint swelling, myalgias, neck pain or other Neurologic Neurologic: Reports paresthesias; Denies abnormal gait, abnormal speech, confusion, disequilibrium, dizziness, focal weakness, headache(s), numbness, seizure-like activity, seizures, syncope, tingling, tremor(s) or other Psychiatric Psychiatric: Denies anxiety, depression, homicidal ideation, suicidal ideation or other Endocrine Endocrinology: Denies change in body appearance, cold intolerance, excessive sweating, heat intolerance, polydipsia, polyuria or other Hematologic/Lymphatic Hematologic/Lymphatic: Denies anemia, easy bleeding, easy bruising, lymphadenopathy or other Allergic/Immunologic Allergic/Immunologic: Denies rhinitis, hives, eczemia, asthma or other Vital Signs Vital Signs Vital Signs: 02/11/22 01:32 EDT 02/11/22 01:40 EDT Temperature 99.5 F H 99.5 F H Temperature Source Oral Oral Pulse Rate 158 H 153 H Respiratory Rate 32 H 32 H Blood Pressure 103/65 106/65 Blood Pressure Mean 77 78 Pulse Ox 90 90 Oxygen Delivery Method Trach Collar Trach Collar Weight Weight: 57.6 kg Body Mass Index (BMI) 18.2 Physical Exam Const alert and oriented x3 Constitutional Narrative: Elderly white male sitting up in bed, and friend at bedside, patient appears nontoxic, currently on trach mask at 70%. Does cough up thick yellow/green sputum at the time of my evaluation General Appearance: cooperative HEENT normocephalic, head/scalp atraumatic and hearing grossly normal bilaterally HEENT Narrative: Mucous membranes appear slightly dry, dentition is poor, Mallampati is 2, no thrush Eyes PERRL and EOMs intact bilaterally Eyes Narrative: Conjunctiva are mildly pale, no scleral icterus Neck no lymphadenopathy and supple Neck Narrative: Shiley trach in place, trach mask in place, marked sputum production with cough, cough is strong, trachea midline Resp no retractions and no use of accessory muscles Resp Narrative: Diffusely diminished with scattered rhonchi most notably at the right base, slight tachypnea Auscultation: rhonchi; Negative for crackles or wheezes Cardio regular rhythm, S1 normal heart sound, S2 normal heart sound, no murmurs, no rub, no gallops and no clicks Cardio Narrative: Tachycardia GI normal to inspection, nondistended, normoactive bowel sounds, soft to palpation and non-tender Extremity no clubbing, cyanosis or edema Extremity Narrative: Marked2+ pedal pulses Muscle mass Skin no rashes or lesions noted, no wounds, skin turgor normal, no jaundice, no petechiae and no mottling Neuro oriented x3, CN's II-XII intact bilaterally, moves all extremities and no focal motor deficits Neuro Narrative: Trach is not capped therefore patient is unable to phonate at this time, marked generalized weakness Psych affect normal Psych Narrative: Very pleasant and appropriately interactive, shakes head answer questions Results Lab / Micro Data Attestation: I reviewed the patient's lab results. Result Diagrams: 02/11/22 01:00 EST 02/11/22 01:00 EST Assessment & Plan Assessment/Plan (1) Urinary tract infection: (2) Fever: (3) Tachycardia: (4) Acute respiratory failure: (5) Malodorous urine: (6) Lactic acidosis: (7) LEV (acute kidney injury): (8) Severe malnutrition: PLAN: Plan Sepsis secondary to pneumonia/possible UTI -Patient with fever, hypoxia, leukocytosis, tachycardia and suspected infection -Shock not present at the time of admission -Blood culture/urine culture/sputum culture -Check strep pneumo and Legionella antigens -We will start broad-spectrum antibiotics with vancomycin and Zosyn given immunosuppression from chemotherapy and tracheostomy site at baseline -Supplemental oxygen with trach mask as needed--> currently on 70% trach mask -Wean as able -Aerosols as needed Possible urinary tract infection -Previous culture showed mixed gram-negative and gram-positive indicating contamination -UA is pending collection -Repeat culture pending -We will exchange Maxwell -Spectrum antibiotics as above for pneumonia LEV -Patient already with Maxwell in place -IV fluids with normal saline at 125 cc/h -Avoid nephrotoxins -Repeat BMP in a.m. Acute on chronic anemia -Hemoglobin down approximately 2 g/dL since 02/05/2022 -Check Hemoccult Tachycardia -Heart rate is coming down with IV fluids -Suspect related to acute infection Lactic acidosis -Mild at 2.1 -Suspect related to acute kidney injury and hypoxia on presentation -Cycle per protocol Severe malnutrition -Consult dietitian -Tube feed as recommended -Supplements as recommended Dysphagia -Patient is n.p.o. at baseline -Speech therapy to evaluate - indicates he is drinking water and did take in some Jell-O the other day -Did discuss the importance of not utilizing the Jell-O as this increases his risk for infection -[facility] however speech therapy will have to evaluate -Continue tube feed via PEG Urinary retention secondary to BPH -Patient follows with Dr. Martinez -Alpha-adina initiated with doxazosin as Flomax is not able to be crushed - is concerned as she feels that this may be lowering his blood pressure however his blood pressures overall appear to be stable when compared to previous documented blood pressure -We will continue doxazosin for now -Exchange Maxwell with concern for infection Metastatic oral pharyngeal cancer -Follows with oncology-[facility] -Diagnosed in August 2014, underwent chemo and radiation therapy but developed progressive disease with mediastinal adenopathy and lung nodules--> began Keytruda in 2016--> restaged in 2018 with improved disease of the lung--> repeat CT in [address]--> and patient has been undergoing ongoing chemotherapy with pembrolizumab -cycle 11 of pembrolizumab held on 02/06/2022 secondary to concerns of infectious process when seen by oncology nurse practitioner -Recommend outpatient follow-up after discharge -Patient has a chronic trach and PEG as a result Chronic pain -Continue home narcotics/gabapentin Hypothyroidism -Continue home levothyroxine -Check TSH Debility -Consult PT/OT/speech therapy Tobacco use -Recommend cessation -Nicotine replacement as needed DVT prophylaxis -Lovenox -SCDs CODE STATUS -Full code is verified on admission Charges/Coding Visit Charges Inpatient E&M: 53346 Init Hosp L3
[2022-02-11 01:53] LABS: ALB/GLOB Ratio 0.4 RATIO (0.9-2.4); AST(SGOT) 19 U/L (15-37); Alanine Aminotransfer ALT/SGPT 17 U/L (16-61); Albumin, Serum 2.2 g/dL (3.2-5.0); Alkaline Phosphatase 48 U/L (45-117); Anion Gap 6 (5-15); BUN 40 mg/dL (7-18); BUN/Creat Ratio 16.5 RATIO (10-20); Calcium,Total 9.1 mg/dL (8.5-10.1); Chloride 108 mmol/L (98-107); Creatinine, Serum 2.42 mg/dL (0.70-1.30); EST Glomerular Filtration Rate 28 mL/min (>60); Est Glom Filt Rate - Afr Amer 34 mL/min (>60); Estimated Creatinine Clearance 21.82 ml/min; Globulin 4.9 g/dL (2.2-4.2); Glucose 125 mg/dL (74-106); Lactic Acid 2.1 mmol/L (0.4-1.9); Potassium 4.6 mmol/L (3.5-5.1); Protein, Total 7.1 g/dL (6.4-8.2); Sodium Level 143 mmol/L (136-145)
--- NOTE | 2022-02-11 02:15 | RAD_ITS ---
STUDY: X-RAY CHEST REASON FOR EXAM: Male, 76 years old. Pneumonia TECHNIQUE: Single AP portable view of the chest. COMPARISON: February 06, 2022 chest x-ray FINDINGS: There is a tracheostomy tube present. There is a left-sided Port-A-Cath with the tip in the superior vena cava. Since prior study there is greater left lower lobe consolidation. There are persistent bilateral small nodular densities suggesting prior granulomatous disease. There is minimal right middle lobe atelectasis. There is a focus of patchy density in the left midlung zone. Normal size heart. Normal mediastinum and anival. Normal visualized pulmonary arteries. Normal visualized aortic arch and descending thoracic aorta. Normal visualized thoracic spine. Normal visualized ribs, clavicles, and shoulders. There is no demonstrated abnormality of the visualized soft tissue structures of the upper abdomen. RAD/Chest 1 View (Portable) IMPRESSION: Findings suspicious for lingular left/ lower lobe pneumonia. Right lower lobe atelectasis. Tracheostomy tube Port-A-Cath. Electronically Signed: Alyssia Rodriguez MD at 2:40 EST Reading Location ID and State: [facility] / [place] Tel , Service support ,
[2022-02-11] MEDS: Acetaminophen 650 MG/20 ML UDC GT ×2 (02:46→22:42)
[2022-02-11 03:11] LABS: International Normalized Ratio 1.3; Prothrombin Time (Protime)PT. 16.1 SECONDS (11.7-14.9)
[2022-02-11 03:12] LABS: Partial Thromboplast Time 34.5 Seconds (24.1-36.2)
--- NOTE | 2022-02-11 03:13 | PCM.HOSP.N ---
Sepsis Attestation Sepsis Alert: Yes Sepsis Attestation: Agree w/Sepsis Date exam was performed: 02/11/22 Time exam was performed: 02:45 Possible Source of Sepsis: Pulmonary and Genitourinary Sepsis Organ Dysfunction Criteria Present: Acute Respiratory Failure (New need for BiPAP/CPAP or MV), Creatinine > 2.0 mg/dL and Lactic Acid > 2 mmol/L Supportive Findings: Patient with fever, tachycardia, tachypnea Fluid Resuscitation Fluid Resuscitation ordered: Fluids not indicated
[2022-02-11] MEDS: 0.9% Normal Saline 1,000 ML 150 ML IV (03:21)
[2022-02-11] MEDS: 0.9% Normal Saline 1,000 ML 999 ML IV (03:32)
[2022-02-11 03:36] LABS: Mucous, Urine 0 SEEN /hpf (<or=2+)
--- NOTE | 2022-02-11 04:07 | PCM.HOSP.N ---
Hospitalist Note Patient meeting criteria for sepsis. Blood pressure dropped and was 87/53. Has received 1 L in the emergency department. We will give 1 more and if patient responsive we will go ahead and admit to PCU if not responsive will send to ICU and started on pressors. Tachycardia is improving. Sepsis Attestation Sepsis Alert: Yes Sepsis Attestation: Agree w/Sepsis Date exam was performed: 02/11/22 Time exam was performed: 03:50 Possible Source of Sepsis: Pulmonary and Genitourinary Sepsis Organ Dysfunction Criteria Present: SBP < 90 mmHg or MAP < 65 mmHg, Acute Respiratory Failure (New need for BiPAP/CPAP or MV), Creatinine > 2.0 mg/dL and Lactic Acid > 2 mmol/L Fluid Resuscitation Fluid resuscitation indicated?: Yes Fluid Resuscitation ordered: 30 ml/kg fluid bolus ordered Sepsis Note Date exam was performed: 02/04/22 Time exam was performed: 04:33 Sepsis Attestation: Sepsis re-evaluation was performed Response to fluids: Non Fluid responsive hypotension and Vasopressors started
[2022-02-11 04:52] LABS: Color, Urine Yellow (Yellow); Glucose, Dipstick Normal (Normal); Ketone-Dipstick 5 mg/dl (Negative); Leukocyte Esterase-Dipstick 500 /ul (Negative); Nitrite-Dipstick Negative (Negative); Occult Blood-Urine 150 /ul (Negative); Protein-Dipstick 100 mg/dl (Negative); Urine Bilirubin Dipstick Negative (Negative); Urine Clarity Sl. Cloudy (Clear); Urine Urobilinogen 1 mg/dl (Normal)
[2022-02-11 04:53] LABS: Amorphous Sediment 2+; Bacteria 2+ /hpf (None Seen); Calcium Oxalate Crystals Ur RARE /hpf (<or=2+); Red Blood Cells-Urine 0-5 SEEN /hpf (0-5); Squamous Epithelial Cells - UA 0-5 SEEN /hpf (0-5); White Blood Cells 10-25 SEEN /hpf (0-5)
[2022-02-11 05:07] LABS: Reflex Lactate? Y
[2022-02-11 06:03] LABS: Absolute Lymphocyte Count 1.08 X10^3/uL (0.83-4.51); Absolute Neutrophil Count 3.8 X10^3/uL (2.0-7.7); Basophil# 0.02 X10^3/uL; Basophil% 0.4 % (0-1); Hematocrit 28.4 % (40-54); Hemoglobin 8.6 g/dL (13.0-16.5); Lymphocyte # 1.08 X10^3/ul (0.83-4.51); Lymphocyte % 20.2 % (19-41); Mean Corp Hgb Conc 30.3 g/dL (32-36); Mean Corpuscular Hgb 31.6 pg (27.0-32.0); Mean Corpuscular Volume 104.4 fL (80-94); Mean Platelet Vol. 11.1 fl (6.2-12.0); Monocyte# 0.45 X10^3/uL; Monocyte% 8.4 % (0-10); NRBC Flagged by Analyzer 0 % (0-5); Neutrophil # 3.78 X10^3/uL (2.7-7.7); Neutrophil % 70.6 % (47-70); Platelet Count 144 K/mm3 (150-450); RBC Distribution Width CV 13.9 % (11.6-14.6); Red Blood Count 2.72 M/mm3 (4.6-6.2); White Blood Count 5.4 K/mm3 (4.4-11.0)
[2022-02-11] MEDS: 0.9% Saline Lock 10 ML Syringe IV (06:03)
[2022-02-11] MEDS: 0.9% Normal Saline 1,000 ML 125 ML IV ×3 (06:03→21:20)
--- NOTE | 2022-02-11 06:21 | EX.PCM.CONCC ---
Assessment & Plan Assessment/Plan (1) Septic shock: PLAN: Plan RECOMMENDATIONS: 1. Continue broad-spectrum antimicrobials. 2. Wean Levophed to maintain a mean arterial pressure at or above 65 mmHg. 3. Continue scheduled bronchodilators. 4. Wean supplemental oxygen to maintain saturations at or above 90%. 5. Continue appropriate DVT prophylaxis. 6. Place PICC line. 7. Encourage incentive spirometer use and mobilize patient as tolerated. 8. Maintain n.p.o. status with nutritional support via PEG tube. IMPRESSIONS: 1. Septic shock The patient presented with sepsis due to possible urinary and/or pulmonary sources of infection with acute sepsis related organ dysfunction as evidenced by acute kidney injury and lactic acidemia. The patient went on to develop fluid refractory hypotension, which ultimately required the initiation of vasopressor support to maintain hemodynamic stability. Cultures are currently pending. Agree with continuing broad-spectrum antimicrobials for now. Maintain strict n.p.o. status with nutritional support via PEG tube. Continue scheduled bronchodilators. Wean supplemental oxygen to maintain saturations at or above 90%. The patient will be continued on Levophed to maintain a mean arterial pressure at or above 65 mmHg. PICC line will be placed. 2. Acute hypoxemic respiratory failure Although the patient has a presumptive history of COPD, we have never been able to complete PFTs on him. However, he does not regularly utilize supplemental oxygen at his baseline. He does continue to smoke cigarettes, nevertheless. As above, recommend continuing scheduled bronchodilators and supplemental oxygen for saturations greater than 90%. 3. Acute on chronic kidney disease Most likely prerenal in etiology in the setting of #1. Continue current supportive measures with supplemental IV fluids and vasopressor support to maintain hemodynamic stability. Continue to monitor urine output. No current indication for renal replacement therapy. 4. History of metastatic oropharyngeal cancer/chronic dysphagia/malnutrition/hypothyroidism/chronic tobacco dependency Complicates care, management, recovery and prognosis. Continue home medications as indicated. Obtain dietary consultation for nutritional support. PT/OT evaluations would also be reasonable. Nicotine replacement therapy can be utilized while admitted to the hospital. TIME: 38 minutes of critical care time, independent of procedures, was spent addressing the patient's septic shock, acute hypoxemic respiratory failure, acute on chronic kidney disease, review of all data and collaboration with the care team. HPI Consult Data Date of Consult: 02/11/22 HPI Narrative Reason for Consultation: Respiratory failure HPI Narrative: The patient is a 76-year-old male, with a history as outlined below, who presented to the emergency department via EMS on February 11 with fevers and malaise. 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 The patient was initially treated with chemotherapy and radiation, and did require eventual tracheostomy placement.? He then developed progressive disease with mediastinal adenopathy and lung nodules.? He was subsequently started on Keytruda.? The patient has a long-standing history of dysphagia with chronic aspiration, and therefore also underwent a PEG tube placement.? The patient is currently followed chronically by Dr. Max of oncology. The patient was just seen in the oncology clinic on February 06, at which time, his pembrolizumab was placed on hold due to concerns for an infectious process. Orders were placed at that time for chest imaging along with blood and urine cultures. The patient does not utilize supplemental oxygen at his baseline. He does continue to smoke cigarettes daily. The patient does receive most of his nutrition via his PEG tube, but did indicate that he ate Jell-O by mouth several days ago. On presentation to the emergency department, the patient was noted to have a low-grade fever and was notably tachycardic and tachypneic. Initial laboratory evaluation revealed no evidence of a leukocytosis. Chemistry profile was notable for a creatinine of 2.42 and lactate of 2.1. Urine analysis was notable for leukocyte Estrace and 2+ urine bacteria. Chest x-ray demonstrated findings of a left lower lobe infiltrate. The patient was started on antimicrobials along with supplemental IV fluids. However, despite fluid resuscitation, the patient remained hypotensive. Therefore, the patient was transferred to the medical intensive care unit, where he was ultimately placed on vasopressors for hemodynamic support. [facility] Medical History (Updated 02/11/22 @ 07:[address] Stuart Polo, ) Abnormal sputum amount Acute nontraumatic kidney injury Adverse effect of antineoplastic and immunosuppressive drugs Agranulocytosis secondary to cancer chemotherapy Antineoplastic chemotherapy induced anemia Diarrhea Dietary restriction Dysphagia Fever Former smoker History of renal disease Hypermagnesemia Long-term use of high-risk medication Malodorous urine Neuropathy Oral candidiasis pegtube Pneumonia port placement Primary malignant neoplasm of hypopharynx RUQ abdominal pain Secondary malignant neoplasm of lung Shortness of breath on exertion Tachycardia Thyroid disease tracheotomy and laryngeal biopsy Urinary tract infection Wears glasses Wheezing Home Medications gabapentin 300 mg/6 mL (6 mL) oral solution 300 mg G-tube BID nerve pain 09/09/18 [History Last Taken Unknown] lactose-reduced food with fiber 0.06 gram-1.5 kcal/mL oral liquid 237 ml G-tube Q4H nutrition 09/09/18 [History Last Taken Unknown] levothyroxine 50 mcg tablet 50 mcg PO DAILY #30 tabs 08/22/21 [Rx Last Taken Unknown] amoxicillin 250 mg-potassium clavulanate 62.5 mg/5 mL oral suspension (Augmentin) 10 ml PO TID 10 days #300 mL 02/06/22 [Rx Last Taken Unknown] ciprofloxacin 500 mg/5 mL oral suspension (Cipro) 500 mg (5 mL) PO BID #100 mL 02/06/22 [Rx Last Taken Unknown] doxazosin 4 mg tablet 4 mg PO BID 02/11/22 [History Last Taken Unknown] finasteride 5 mg tablet 5 mg PO DAILY 02/11/22 [History Last Taken Unknown] Allergy/AdvReac Type Severity Reaction Status Date / Time venom-wasp Allergy Anaphylaxis Verified 02/06/22 08:40 pseudoephedrine HCl AdvReac Severe Unknown Verified 02/06/22 08:40 [From Sudafed] Antihistamines - Alkylamine AdvReac Mild Other Verified 02/06/22 08:40 Family History Father Colon cancer Hypertension Mother Hypertension Surgical History (Updated 02/11/22 @ 02:[address] Kristine Graham DO) History of surgery Hx of tonsillectomy S/P percutaneous endoscopic gastrostomy (PEG) tube placement Social History (Reviewed 02/11/22 @ 01:[address] Ann Gayle MD) Smoking Status: Current some day smoker tobacco type: cigarettes alcohol intake: never substance use type: does not use ROS ROS Narrative 10 systems were reviewed with pertinent positives as noted in the HPI above. Physical Exam Const alert and no apparent distress Constitutional Narrative: Frail and cachectic in appearance. General Appearance: ill appearing HEENT normocephalic and head/scalp atraumatic Eyes PERRL and EOMs intact bilaterally Neck supple Neck Narrative: Stable tracheostomy site. Chest inspection of chest normal Resp normal respiratory effort Auscultation: diminished lung sounds; Negative for rales, rhonchi or wheezes Cardio S1 normal heart sound and S2 normal heart sound Rate: tachycardic GI normal to inspection, nondistended, normoactive bowel sounds Inspection: GI tube present Extremity no clubbing, cyanosis or edema Skin no rashes or lesions noted Neuro CN's II-XII intact bilaterally and no focal motor deficits Psych cooperative and affect normal Lab / Micro Data Result Diagrams: 02/11/22 05:30 02/11/22 05:30 Labs: Laboratory Results - last 24 hr 02/11/22 01:00 EST: WBC 5.7, RBC 2.96 L, Hgb 9.2 L, Hct 30.3 L, MCV 102.4 H, MCH 31.1, MCHC 30.4 L, RDW Std Deviation 52.2 H, RDW Coeff of Oz 13.9, Plt Count 169, Neut % (Auto) 73.4 H, Absolute Neuts (auto) 4.2 02/11/22 01:00 EST: PT 16.1 H, INR 1.3, APTT 34.5 02/11/22 01:00 EST: Sodium 143, Potassium 4.6, Chloride 108 H, Carbon Dioxide 29.0, Anion Gap 6, BUN 40 H, Creatinine 2.42 H, Estim Creat Clear Calc 21.82, Est GFR (MDRD) Af Amer 34 L, Est GFR (MDRD) Non-Af 28 L, BUN/Creatinine Ratio 16.5, Glucose 125 H, Calcium 9.1, Total Bilirubin 0.40, AST 19, ALT 17, Alkaline Phosphatase 48, Total Protein 7.1, Albumin 2.2 L, Globulin 4.9 H, Albumin/Globulin Ratio 0.4 L 02/11/22 01:00 EST: Lactic Acid 2.1 H* 02/11/22 03:15: Urine Color Yellow, Urine Clarity Sl. Cloudy, Urine pH 7.0, Ur Specific [place] 1.010, Urine Protein 100 H, Urine Glucose (UA) Normal, Urine Ketones 5 H, Urine Occult Blood 150 H, Urine Nitrite Negative, Urine Bilirubin Negative, Urine Urobilinogen 1 H, Ur Leukocyte Esterase 500 H, Urine RBC 0-5 SEEN, Urine WBC 10-25 SEEN, Ur Squamous Epith Cells 0-5 SEEN, Calcium Oxalate Crystal RARE, Amorphous Sediment 2+, Urine Bacteria 2+, Urine Mucus 0 SEEN 02/11/22 05:30: WBC 5.4, RBC 2.72 L, Hgb 8.6 L, Hct 28.4 L, MCV 104.4 H, MCH 31.6, MCHC 30.3 L, RDW Std Deviation 53.0 H, RDW Coeff of Oz 13.9, Plt Count 144 L, MPV 11.1, Immature Gran % (Auto) 0.400, Neut % (Auto) 70.6 H, Lymph % (Auto) 20.2, [place] % (Auto) 8.4, Eos % (Auto) 0.0, Baso % (Auto) 0.4, Absolute Neuts (auto) 3.8, Absolute Lymphs (auto) 1.08, Nucleated RBC % 0 Micro: Microbiology 02/11/22 03:15 Urine Catheter - Catheter Legionella Antigen - Final 02/11/22 03:15 Urine Catheter - Catheter Streptococcus pneumoniae Antigen (M - Final 02/11/22 02:15 Nasal Secretion SARS-CoV-2 & FLU Antigen (Rapid) - Final Radiology Impression Chest X-Ray 02/11/22 02:15 IMPRESSION: Findings suspicious for lingular left/ lower lobe pneumonia. Right lower lobe atelectasis. Tracheostomy tube Port-A-Cath. Electronically Signed: Alyssia Rodriguez MD at 2:40 EST , Charges/Coding Procedures Hospitalists Procedures: [id number]
[2022-02-11 06:27] LABS: Lactic Acid 1.1 mmol/L (0.4-1.9)
[2022-02-11] MEDS: Levothyroxine 50 MCG Tablet PO (06:32)
[2022-02-11] MEDS: Jevity 1.5. 1,000 ML Bottle 237 ML GT ×5 (06:32→21:24)
[2022-02-11 06:33] LABS: Phosphorus 3.5 mg/dL (2.5-4.9)
--- NOTE | 2022-02-11 06:39 | PCM.RX.CS ---
Consult Pharmacy has been consulted to manage selected antiobiotic: Vancomycin Type of Consult: New start Microbiology: Microbiology 02/11/22 03:15 Urine Catheter - Catheter Legionella Antigen - Final 02/11/22 03:15 Urine Catheter - Catheter Streptococcus pneumoniae Antigen (M - Final 02/11/22 02:15 Nasal Secretion SARS-CoV-2 & FLU Antigen (Rapid) - Final Weight used for dosin.6 kg Estimated Creatinine Clearance: 21.8 Goal Trough: 15-20 mcg/mL Pharmacy Plan for Drug Dosing: Pharmacy Service will continue to monitor and adjust dosing as required. Medications Vancomycin HCl () 500 mg in 100 mls @ 100 mls/hr IV Q24H CEASAR Discontinued Medications Vancomycin HCl 750 mg/ Sodium (Chloride) 265 mls @ 250 mls/hr IV X1 ONE Stop: 02/11/22 02:49 Last Admin: 02/11/22 04:39 Dose: Infused Follow-Up Labs: Trough Vancomycin Labs to be done on [date and time ordered]: 02/13 @ 0232
[2022-02-11 06:41] LABS: Anion Gap 4 (5-15); BUN 41 mg/dL (7-18); BUN/Creat Ratio 17.2 RATIO (10-20); Calcium,Total 8.5 mg/dL (8.5-10.1); Chloride 110 mmol/L (98-107); Creatinine, Serum 2.39 mg/dL (0.70-1.30); EST Glomerular Filtration Rate 28 mL/min (>60); Est Glom Filt Rate - Afr Amer 34 mL/min (>60); Estimated Creatinine Clearance 22.05 ml/min; Glucose 128 mg/dL (74-106); Magnesium 2.4 mg/dL (1.6-2.6); Potassium 4.5 mmol/L (3.5-5.1); Sodium Level 141 mmol/L (136-145); Thyroid Stim Hormone (TSH) 2.01 uIU/mL (0.358-3.74)
[2022-02-11] MEDS: Ipratropium/Albuterol Sulfate 3 ML AMPUL.NEB INHALATION ×3 (07:22→18:30)
[2022-02-11 07:27] LABS: M R Staph aureus DNA By PCR Negative (Negative); Probe Check PASS; Specimen Processing Control PASS
[2022-02-11] MEDS: Gabapentin 300 MG Capsule GT ×2 (10:21→21:25)
[2022-02-11] MEDS: Finasteride 5 MG Tablet PO (10:21)
[2022-02-11] MEDS: Heparin Injection (Vial) 5,000 UNIT/ML VIAL 5000 UNIT SC ×2 (10:21→21:21)
--- NOTE | 2022-02-11 13:24 | PN.HOSP_ITS ---
Subjective Subjective DOS: 02/11/2022 CC: Follow-up sepsis Reports feeling very slightly better, breathing roughly the same. Did not endor se any chest pain. Had breathing treatment in place during evaluation Objective Data Objective Data Vital Signs: Vital Signs Temp Pulse Resp BP Pulse Ox O2 Del Method O2 Flow Rate 96.9 F L 84 12 125/97 H 93 T-piece 12 02/11/22 12:00 02/11/22 13:06 02/11/22 13:06 02/11/22 13:00 02/11/22 13:00 02/11/22 13:00 02/11/22 07:23 FiO2 50 02/11/22 13:00 Oxygen Flow Rate (L/min) 12 Oxygen Delivery Method T-piece Weight: 57.5 kg Body Mass Index (BMI) 18.1 Intake & Output: Intake and Output for Last 24 Hours 02/09/22 02/10/22 02/11/22 23:59 23:59 22:59 Intake Total 3817.27 / 3817.27 Output Total 260 / 260 Balance 3557.27 / 3557.27 Medical Nutrition Assessment Dietitian: Malnutrition Criteria Met Start: 02/11/22 09:51 Freq: Status: Active Protocol: Document 02/11/22 09:51 VINAYAK (Rec: 02/11/22 09:51 [facility] [id number]) Nutrition Malnutrition Evidence of Malnutrition Exists Yes Malnutrition (severe): Chronic Evidenced By Suboptimal Energy Intake ( Moderate),Weight Loss (Severe) ,Physical Changes (Severe) Clinical Problem Chronic Disease or Condition Related Malnutrition Etiology severe related to 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 Pt w/ fat/ muscle loss per NFPA. Status Active Problem Recommendation Dietitian Recommendations/Changes Will change order to Jevity 1. 5 bolus feeds: 237 ml every four hours with 100 ml water flush before and after each bolus feed to provide 2133 yesica /91 gm pro/ 2280 ml free water /day. Will monitor wt trends. Lab / Micro Data Result Diagrams: 02/11/22 05:30 02/11/22 05:30 Labs: Laboratory Results - last 24 hr 02/11/22 01:00 EST: WBC 5.7, RBC 2.96 L, Hgb 9.2 L, Hct 30.3 L, MCV 102.4 H, MCH 31.1, MCHC 30.4 L, RDW Std Deviation 52.2 H, RDW Coeff of Oz 13.9, Plt Count 169, Neut % (Auto) 73.4 H, Absolute Neuts (auto) 4.2 02/11/22 01:00 EST: PT 16.1 H, INR 1.3, APTT 34.5 02/11/22 01:00 EST: Sodium 143, Potassium 4.6, Chloride 108 H, Carbon Dioxide 29.0, Anion Gap 6, BUN 40 H, Creatinine 2.42 H, Estim Creat Clear Calc 21.82, Est GFR (MDRD) Af Amer 34 L, Est GFR (MDRD) Non-Af 28 L, BUN/Creatinine Ratio 16.5, Glucose 125 H, Calcium 9.1, Total Bilirubin 0.40, AST 19, ALT 17, Alkaline Phosphatase 48, Total Protein 7.1, Albumin 2.2 L, Globulin 4.9 H, Albumin/Globulin Ratio 0.4 L 02/11/22 01:00 EST: Lactic Acid 2.1 H* 02/11/22 03:15: Urine Color Yellow, Urine Clarity Sl. Cloudy, Urine pH 7.0, Ur Specific [place] 1.010, Urine Protein 100 H, Urine Glucose (UA) Normal, Urine Ketones 5 H, Urine Occult Blood 150 H, Urine Nitrite Negative, Urine Bilirubin Negative, Urine Urobilinogen 1 H, Ur Leukocyte Esterase 500 H, Urine RBC 0-5 SEEN, Urine WBC 10-25 SEEN, Ur Squamous Epith Cells 0-5 SEEN, Calcium Oxalate Crystal RARE, Amorphous Sediment 2+, Urine Bacteria 2+, Urine Mucus 0 SEEN 02/11/22 05:30: Lactic Acid 1.1 02/11/22 05:30: WBC 5.4, RBC 2.72 L, Hgb 8.6 L, Hct 28.4 L, MCV 104.4 H, MCH 31.6, MCHC 30.3 L, RDW Std Deviation 53.0 H, RDW Coeff of Oz 13.9, Plt Count 144 L, MPV 11.1, Immature Gran % (Auto) 0.400, Neut % (Auto) 70.6 H, Lymph % (Auto) 20.2, [place] % (Auto) 8.4, Eos % (Auto) 0.0, Baso % (Auto) 0.4, Absolute Neuts (auto) 3.8, Absolute Lymphs (auto) 1.08, Nucleated RBC % 0 02/11/22 05:30: Sodium 141, Potassium 4.5, Chloride 110 H, Carbon Dioxide 27.0, Anion Gap 4 L, BUN 41 H, Creatinine 2.39 H, Estim Creat Clear Calc 22.05, Est GFR (MDRD) Af Amer 34 L, Est GFR (MDRD) Non-Af 28 L, BUN/Creatinine Ratio 17.2, Glucose 128 H, Calcium 8.5, Magnesium 2.4, TSH 2.01 02/11/22 05:30: Phosphorus 3.5 02/11/22 05:53: MRSA (PCR) Negative Micro: Microbiology 02/11/22 03:15 Urine Catheter - Catheter Legionella Antigen - Final 02/11/22 03:15 Urine Catheter - Catheter Streptococcus pneumoniae Antigen (M - Final 02/11/22 02:15 Nasal Secretion SARS-CoV-2 & FLU Antigen (Rapid) - Final Radiography Diagnostic Testing: Radiology Impression Chest X-Ray 02/11/22 02:15 IMPRESSION: Findings suspicious for lingular left/ lower lobe pneumonia. Right lower lobe atelectasis. Tracheostomy tube Port-A-Cath. Electronically Signed: Alyssia Rodriguez MD at 2:40 EST Reading Location ID and State: [address] [place] [address] Tel , Service support , Physical Exam Const alert and no apparent distress HEENT head/scalp atraumatic Eyes EOMs intact bilaterally Neck Neck Narrative: Trach in place Resp Resp Narrative: Diminished at the bases, coarse in the mid to upper zones, no wheezes appreciated, no use of accessory muscles Cardio regular rate and regular rhythm GI soft to palpation, non-tender and non-distended Extremity Extremity Narrative: No edema appreciated Neuro Neuro Narrative: No overt focal neurological deficits appreciated Psych affect normal Assessment & Plan Assessment/Plan (1) Septic shock: (2) Pneumonia: (3) LEV (acute kidney injury): PLAN: Plan #Septic shock secondary to pneumonia/possible UTI Had elevated temp to 103 and tachycardia as well as hypoxia at 69% with EMS, as well as leukocytosis Most recently saw oncology 02/06/2022 and had complained of cloudy urine and increased sputum production and secretions Blood and urine cultures were obtained at that time and urine was polymicrobial and blood cultures were negative More likely pneumonia as chest x-ray performed showed worsening infiltrate at the right base of the left lower lobe ED cultures pending Strep pneumonia and Legionella urine antigens pending On broad-spectrum Vanco and Zosyn given immunosuppression from chemotherapy and trach at baseline 02/11/2022: Received 2 L of IV fluids and had been on pressors, PICC line to be placed. Legionella and strep pneumo urine antigens negative. COVID and flu negative. Respiratory culture pending. #Acute hypoxic respiratory failure 69% upon EMS arrival, improved with trach mask Sats doing well with breathing treatments on trach mask Wean as tolerated Breathing treatments scheduled and as needed #LEV on CKD stage IIIb On IV fluids Maxwell already in place And no nephrotoxins Trend BMP #Oropharyngeal cancer with metastasis to the lungs Chronic trach and PEG Follows oncology as an outpatient at [facility] Diagnosed in August 2014, underwent chemo and radiation therapy but developed progressive disease with mediastinal adenopathy and lung nodules--> began Keytruda in 2016--> restaged in 2018 with improved disease of the lung--> repeat CT in [address]--> and patient has been undergoing ongoing chemotherapy with pembrolizumab -cycle 11 of pembrolizumab held on 02/06/2022 secondary to concerns of infectious process when seen by oncology nurse practitioner Has chronic trach and PEG Follow-up with oncology upon discharge #Acute on chronic anemia Hemoglobin down approximately 2 g since 02/05/2022, follow-up FOBT #Severe malnutrition Consult dietitian Tube feeds as recommended Supplements as recommended #Dysphagia N.p.o. baseline Speech therapy concurred continue n.p.o. Continue tube feeds via PEG #Urinary retention secondary to BPH Follows with Dr. Martniez, doxazosin held due to hypotension Exchange Maxwell due to concern for infection #Chronic pain On home gabapentin #Hypothyroidism Home Synthroid Check TSH #Debility Consult PT/OT #Tobacco use Recommend cessation Nicotine replacement as needed #DVT prophylaxis?Lovenox and SCDs Charges/Coding Visit Charges Inpatient E&M: 94028 Subs Hosp L2
[2022-02-11] MEDS: NYSTATIN 500,000 UNIT/5 ML UDC 500000 UNIT PO ×3 (14:54→21:21)
[2022-02-12] VITALS (56 sets, daily range): BP systolic 65–129; BP diastolic 40–100; PULSE 82–124; RESP 12–30; TEMP 37.6–38.5; O2SAT 79–97
[2022-02-12] MEDS: Vancomycin IV 500 MG/100 ML BAG 100 MG IV (02:58)
[2022-02-12 03:47] LABS: Absolute Neutrophil Count 4.5 X10^3/uL (2.0-7.7); Basophil# 0.03 X10^3/uL; Basophil% 0.5 % (0-1); Eosinophil# 0.05 X10^3/uL; Eosinophils% 0.8 % (0-5); Hematocrit 29.2 % (40-54); Hemoglobin 8.8 g/dL (13.0-16.5); Lymphocyte % 15.3 % (19-41); Mean Corp Hgb Conc 30.1 g/dL (32-36); Mean Corpuscular Hgb 31.1 pg (27.0-32.0); Mean Corpuscular Volume 103.2 fL (80-94); Mean Platelet Vol. 11.8 fl (6.2-12.0); Monocyte# 0.44 X10^3/uL; Monocyte% 7.5 % (0-10); NRBC Flagged by Analyzer 0 % (0-5); Neutrophil # 4.46 X10^3/uL (2.7-7.7); Neutrophil % 75.6 % (47-70); Platelet Count 179 K/mm3 (150-450); RBC Distribution Width CV 13.6 % (11.6-14.6); RBC Distribution Width SD 52.2 fl (35.1-43.9); Red Blood Count 2.83 M/mm3 (4.6-6.2); White Blood Count 5.9 K/mm3 (4.4-11.0)
[2022-02-12 04:01] LABS: ALB/GLOB Ratio 0.4 RATIO (0.9-2.4); AST(SGOT) 23 U/L (15-37); Alanine Aminotransfer ALT/SGPT 14 U/L (16-61); Albumin, Serum 1.7 g/dL (3.2-5.0); Alkaline Phosphatase 46 U/L (45-117); Anion Gap 5 (5-15); BUN 34 mg/dL (7-18); BUN/Creat Ratio 17.4 RATIO (10-20); Calcium,Total 8.4 mg/dL (8.5-10.1); Chloride 111 mmol/L (98-107); Creatinine, Serum 1.95 mg/dL (0.70-1.30); EST Glomerular Filtration Rate 36 mL/min (>60); Est Glom Filt Rate - Afr Amer 43 mL/min (>60); Estimated Creatinine Clearance 27.03 ml/min; Globulin 4.7 g/dL (2.2-4.2); Glucose 143 mg/dL (74-106); Potassium 4.4 mmol/L (3.5-5.1); Protein, Total 6.4 g/dL (6.4-8.2); Sodium Level 142 mmol/L (136-145)
[2022-02-12] MEDS: 0.9% Normal Saline 1,000 ML 125 ML IV (05:00)
[2022-02-12] MEDS: Levothyroxine 50 MCG Tablet GT (05:06)
[2022-02-12] MEDS: Acetaminophen 650 MG/20 ML UDC GT ×3 (05:06→21:18)
--- NOTE | 2022-02-12 07:17 | PN.CC_ITS ---
Assessment & Plan Assessment/Plan (1) Septic shock: PLAN: Plan RECOMMENDATIONS: 1. Continue broad-spectrum antimicrobials. 2. Wean Levophed to maintain a mean arterial pressure at or above 65 mmHg. 3. Continue scheduled bronchodilators. 4. Wean supplemental oxygen to maintain saturations at or above 90%. 5. Continue appropriate DVT prophylaxis. 6. Await PICC line. 7. Encourage incentive spirometer use and mobilize patient as tolerated. 8. Discussed with dietitian nutritional support via PEG tube. IMPRESSIONS: 1. Septic shock The patient presented with sepsis due to possible urinary and/or pulmonary sources of infection with acute sepsis related organ dysfunction as evidenced by acute kidney injury and lactic acidemia. The patient went on to develop fluid refractory hypotension, which ultimately required the initiation of vasopressor support to maintain hemodynamic stability. Cultures are currently pending. Agree with continuing broad-spectrum antimicrobials for now. Maintain strict n.p.o. status with nutritional support via PEG tube. Aspiration versus trach associated pneumonia suspected. Continue scheduled bronchodilators. Wean supplemental oxygen to maintain saturations at or above 90%. The patient will be continued on Levophed to maintain a mean arterial pressure at or above 65 mmHg. PICC line will be placed. Possibly add midodrine tomorrow if not improving 2. Acute hypoxemic respiratory failure Although the patient has a presumptive history of COPD, we have never been able to complete PFTs on him. However, he does not regularly utilize s upplemental oxygen at his baseline. He does continue to smoke cigarettes, nevertheless. As above, recommend continuing scheduled bronchodilators and supplemental oxygen for saturations greater than 90%. 3. Acute on chronic kidney disease Most likely prerenal in etiology in the setting of #1. Continue current supportive measures with supplemental IV fluids and vasopressor support to maintain hemodynamic stability. Continue to monitor urine output. No current indication for renal replacement therapy. 4. History of metastatic oropharyngeal cancer/chronic dysphagia/malnutrition/hypothyroidism/chronic tobacco dependency Complicates care, management, recovery and prognosis. Continue home medications as indicated. Obtain dietary consultation for nutritional support. PT/OT evaluations would also be reasonable. Nicotine replacement therapy can be utilized while admitted to the hospital. TIME: 32 minutes of critical care time, independent of procedures, was spent addressing the patient's septic shock, acute hypoxemic respiratory failure, acute on chronic kidney disease, review of all data and collaboration with the care team. Subjective Subjective Patient did well overnight. Patient overall feels subjectively improved compared to previous. Nursing continues to report copious secretions, which patient states is odd for him. Patient has been expectorating secretions appropriately. Patient did spike a fever overnight, but has been tolerating lower FiO2 on trach collar. Patient did have an emesis overnight. Patient states he is receiving too much tube feeds. Objective Data Objective Data Vital Signs: Vital Signs Temp Pulse Resp BP Pulse Ox O2 Del Method O2 Flow Rate 37.8 C H 99 27 H 104/67 92 Trach Collar 6 02/12/22 07:00 02/12/22 07:00 02/12/22 07:00 02/12/22 07:00 02/12/22 07:00 02/12/22 07:00 02/12/22 05:10 FiO2 30 02/12/22 06:00 Oxygen Flow Rate (L/min) 6 Oxygen Delivery Method Trach Collar Weight: 59.8 kg Body Mass Index (BMI) 18.1 Intake & Output: Intake and Output for Last 24 Hours 02/11/22 02/11/22 02/12/22 00:59 23:59 23:59 Intake Total 1238.94 / 1238.94 Output Total 525 / 525 Balance 713.94 / 713.94 Medical Nutrition Assessment Dietitian: Malnutrition Criteria Met Start: 02/11/22 09:51 Freq: Status: Active Protocol: Document 02/11/22 09:51 VINAYAK (Rec: 02/11/22 09:51 VINAYAK [id number]) Nutrition Malnutrition Evidence of Malnutrition Exists Yes Malnutrition (severe): Chronic Evidenced By Suboptimal Energy Intake ( Moderate),Weight Loss (Severe) ,Physical Changes (Severe) Clinical Problem Chronic Disease or Condition Related Malnutrition Etiology severe related to 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 Pt w/ fat/ muscle loss per NFPA. Status Active Problem Recommendation Dietitian Recommendations/Changes Will change order to Jevity 1. 5 bolus feeds: 237 ml every four hours with 100 ml water flush before and after each bolus feed to provide 2133 yesica /91 gm pro/ 2280 ml free water /day. Will monitor wt trends. Lab / Micro Data Attestation: I reviewed the patient's lab results. Result Diagrams: 02/12/22 03:40 02/12/22 03:40 Labs: Laboratory Results - last 24 hr 02/11/22 05:53: MRSA (PCR) Negative 02/12/22 03:40: WBC 5.9, RBC 2.83 L, Hgb 8.8 L, Hct 29.2 L, MCV 103.2 H, MCH 31.1, MCHC 30.1 L, RDW Std Deviation 52.2 H, RDW Coeff of Oz 13.6, Plt Count 179, MPV 11.8, Immature Gran % (Auto) 0.300, Neut % (Auto) 75.6 H, Lymph % (Auto) 15.3 L, [place] % (Auto) 7.5, Eos % (Auto) 0.8, Baso % (Auto) 0.5, Absolute Neuts (auto) 4.5, Absolute Lymphs (auto) 0.90, Nucleated RBC % 0 02/12/22 03:40: Sodium 142, Potassium 4.4, Chloride 111 H, Carbon Dioxide 26.0, Anion Gap 5, BUN 34 H, Creatinine 1.95 H, Estim Creat Clear Calc 27.03, Est GFR (MDRD) Af Amer 43 L, Est GFR (MDRD) Non-Af 36 L, BUN/Creatinine Ratio 17.4, Glucose 143 H, Calcium 8.4 L, Total Bilirubin 0.30, AST 23, ALT 14 L, Alkaline Phosphatase 46, Total Protein 6.4, Albumin 1.7 L, Globulin 4.7 H, Albumin/Globulin Ratio 0.4 L Micro: Microbiology 02/11/22 02:00 Sputum, Induced/Lukens Gram Stain - Final 02/11/22 03:15 Urine Catheter - Catheter Legionella Antigen - Final 02/11/22 03:15 Urine Catheter - Catheter Streptococcus pneumoniae Antigen (M - Final 02/11/22 02:15 Nasal Secretion SARS-CoV-2 & FLU Antigen (Rapid) - Final Physical Exam Const alert and no apparent distress Constitutional Narrative: Frail and cachectic in appearance. HEENT normocephalic and head/scalp atraumatic Eyes PERRL and EOMs intact bilaterally Neck supple Neck Narrative: Stable tracheostomy site. Chest inspection of chest normal Resp normal respiratory effort Auscultation: diminished lung sounds; Negative for rales, rhonchi or wheezes Cardio S1 normal heart sound and S2 normal heart sound Rate: tachycardic GI normal to inspection, nondistended, normoactive bowel sounds Inspection: GI tube present Extremity no clubbing, cyanosis or edema Skin no rashes or lesions noted Neuro CN's II-XII intact bilaterally and no focal motor deficits Psych cooperative and affect normal Charges/Coding Procedures Hospitalists Procedures: 70009 Critial Care 1st Hr
[2022-02-12] MEDS: Ipratropium/Albuterol Sulfate 3 ML AMPUL.NEB INHALATION ×3 (07:29→18:52)
[2022-02-12] MEDS: Finasteride 5 MG Tablet GT (08:28)
[2022-02-12] MEDS: NYSTATIN 500,000 UNIT/5 ML UDC 500000 UNIT PO ×4 (08:28→21:17)
[2022-02-12] MEDS: Gabapentin 300 MG Capsule GT ×2 (08:29→21:17)
[2022-02-12] MEDS: Heparin Injection (Vial) 5,000 UNIT/ML VIAL 5000 UNIT SC ×2 (08:29→21:17)
--- NOTE | 2022-02-12 09:32 | PN.HOSP_ITS ---
Subjective Subjective Follow-up on septic shock: Patient was seen and examined. He remains on Levophed. He had an episode of emesis this morning. He has not had a bowel movement in more than 4 days. Denies any abdominal pain. Objective Data Objective Data Vital Signs: Vital Signs Temp Pulse Resp BP Pulse Ox O2 Del Method O2 Flow Rate 100.1 F H 89 14 103/55 L 94 Trach Collar 6 02/12/22 07:00 02/12/22 08:00 02/12/22 08:00 02/12/22 08:00 02/12/22 08:00 02/12/22 08:00 02/12/22 07:36 FiO2 30 02/12/22 08:00 Oxygen Flow Rate (L/min) 6 Oxygen Delivery Method Trach Collar Weight: 59.8 kg Body Mass Index (BMI) 18.1 Intake & Output: Intake and Output for Last 24 Hours 02/11/22 02/11/22 02/12/22 00:59 23:59 23:59 Intake Total 1758.94 / 1758.94 Output Total 525 / 525 Balance 1233.94 / 1233.94 Medical Nutrition Assessment Dietitian: Malnutrition Criteria Met Start: 02/11/22 09:5 1 Freq: Status: Active Protocol: Document 02/11/22 09:51 VINAYAK (Rec: 02/11/22 09:51 [facility] [id number]) Nutrition Malnutrition Evidence of Malnutrition Exists Yes Malnutrition (severe): Chronic Evidenced By Suboptimal Energy Intake ( Moderate),Weight Loss (Severe) ,Physical Changes (Severe) Clinical Problem Chronic Disease or Condition Related Malnutrition Etiology severe related to 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 Pt w/ fat/ muscle loss per NFPA. Status Active Problem Recommendation Dietitian Recommendations/Changes Will change order to Jevity 1. 5 bolus feeds: 237 ml every four hours with 100 ml water flush before and after each bolus feed to provide 2133 yesica /91 gm pro/ 2280 ml free water /day. Will monitor wt trends. Lab / Micro Data Result Diagrams: 02/12/22 03:40 02/12/22 03:40 Labs: Laboratory Results - last 24 hr 02/12/22 03:40: WBC 5.9, RBC 2.83 L, Hgb 8.8 L, Hct 29.2 L, MCV 103.2 H, MCH 31.1, MCHC 30.1 L, RDW Std Deviation 52.2 H, RDW Coeff of Oz 13.6, Plt Count 179, MPV 11.8, Immature Gran % (Auto) 0.300, Neut % (Auto) 75.6 H, Lymph % (Auto) 15.3 L, [place] % (Auto) 7.5, Eos % (Auto) 0.8, Baso % (Auto) 0.5, Absolute Neuts (auto) 4.5, Absolute Lymphs (auto) 0.90, Nucleated RBC % 0 02/12/22 03:40: Sodium 142, Potassium 4.4, Chloride 111 H, Carbon Dioxide 26.0, Anion Gap 5, BUN 34 H, Creatinine 1.95 H, Estim Creat Clear Calc 27.03, Est GFR (MDRD) Af Amer 43 L, Est GFR (MDRD) Non-Af 36 L, BUN/Creatinine Ratio 17.4, Glucose 143 H, Calcium 8.4 L, Total Bilirubin 0.30, AST 23, ALT 14 L, Alkaline Phosphatase 46, Total Protein 6.4, Albumin 1.7 L, Globulin 4.7 H, [place] min/Globulin Ratio 0.4 L Micro: Microbiology 02/11/22 02:00 Sputum, Induced/Lukens Gram Stain - Final 02/11/22 03:15 Urine Catheter - Catheter Legionella Antigen - Final 02/11/22 03:15 Urine Catheter - Catheter Streptococcus pneumoniae Antigen (M - Final 02/11/22 02:15 Nasal Secretion SARS-CoV-2 & FLU Antigen (Rapid) - Final Physical Exam Narrative Physical exam: General: Alert, Oriented x3, Cooperative, cachectic HEENT: Oxygen via trach collar Oral: Moist Mucosa Neck: Supple Lungs:Diminished to auscultation Cardiovascular: HS I+II, regular, no murmurs Abdomen: Bowel Sounds Present, Soft, Non Tender Extremities: No edema, dystrophic nails Skin: No rashes, No breakdown Neurological: Grossly intact Psych/Mental Status: Appropriate Assessment & Plan Assessment/Plan (1) Septic shock: (2) Pneumonia: (3) LEV (acute kidney injury): PLAN: Plan 1. Septic shock secondary to pneumonia/UTI, POA, persists Remains on Levophed drip; having low-grade temperatures Chest x-ray on 02/11/2022 shows lingula left/lower lobe pneumonia, right lower lobe atelectasis Urine Legionella and streptococcal antigen negative Blood and sputum cultures are pending Continue with IV Zosyn and vancomycin 2. Acute hypoxic respiratory failure secondary to pneumonia Patient remains on a trach collar Oxygen support improved, continue breathing treatments as needed 3. LEV on CKD stage IIIb, improving Creatinine is 1.95 from 2.42 Continue to trend 4. 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 Acute on chronic anemia, hemoglobin remained stable at 8.8 Stool for occult blood is still pending as patient has not had a bowel movement We will check iron stores, retic count, check FOBT when patient is able to go 6. Severe protein calorie malnutrition, teletypist consulted, on tube feeds 7.Chronic urinary retention secondary to BPH Not on flomax or doxazosin on account of hypotension 8. Chronic pain, continue home gabapentin 9. Hypothyroidism, continue on synthroid 10. DVT prophylaxis?Lovenox and SCDs Charges/Coding Visit Charges Inpatient E&M: 87378 Subs Hosp L3
--- NOTE | 2022-02-12 09:45 | RAD_ITS ---
STUDY: X-RAY - ABDOMEN/PELVIS REASON FOR EXAM: Male, 76 years old. Emesis, possible bowel obstruction TECHNIQUE: Single AP view of the abdomen / pelvis. COMPARISON: None. FINDINGS: Small left pleural effusion. Bibasilar atelectasis and/or infiltrates. Moderate amount of fecal material is seen in the colon. There is a 7.5 mm calculus in the midpole calyx of the left kidney. A probe device is seen in the pelvis. Normal soft tissue structures. Normal visualized osseous structures. RAD/Abdomen Single View (Portable) IMPRESSION: Moderate amount of fecal material is seen in the colon. 7.5 mm nonobstructive calculus in the midpole calyx of the left kidney. Blunting of the left cosmetic angle with bibasilar atelectasis and/or infiltrates. Electronically Signed: Joshua Schneider MD at 10:34 EST ,
[2022-02-12] MEDS: Jevity 1.5. 1,000 ML Bottle 237 ML GT (10:38)
--- NOTE | 2022-02-12 11:17 | RAD_ITS ---
STUDY: X-RAY CHEST REASON FOR EXAM: Male, 76 years old. PICC line placement TECHNIQUE: Single AP portable view of the chest. COMPARISON: Comparison is made with prior study done earlier today at 11:11 AM. FINDINGS: Stable examination. RAD/CXR for Line Placement IMPRESSION: Stable examination. Electronically Signed: Joshua Schneider MD at 12:01 EST ,
--- NOTE | 2022-02-12 11:29 | RAD_ITS ---
STUDY: X-RAY CHEST REASON FOR EXAM: Male, 76 years old. PICC line placement TECHNIQUE: Single AP portable view of the chest. COMPARISON: Comparison is made with prior examination earlier today at 11:11 AM. FINDINGS: The tip of the right PICC line catheter is in the superior vena cava at the junction with the left brachiocephalic vein. RAD/CXR for Line Placement IMPRESSION: The tip of the right PICC line catheter is in the superior vena cava at the junction with the left brachiocephalic vein. Electronically Signed: Joshua Schneider MD at 12:02 EST ,
--- NOTE | 2022-02-12 11:30 | RAD_ITS ---
STUDY: X-RAY CHEST REASON FOR EXAM: Male, 76 years old. PICC line placement TECHNIQUE: Single AP portable view of the chest. COMPARISON: Comparison is made with prior study done earlier today. FINDINGS: The tip of the right PICC line catheter is at the junction of the superior vena cava and left brachiocephalic vein. RAD/CXR for Line Placement IMPRESSION: The tip of the right PICC line catheter is at the junction of the superior vena cava and left brachiocephalic vein. Electronically Signed: Joshua Schneider MD at 12:03 EST ,
--- NOTE | 2022-02-12 11:30 | RAD_ITS ---
STUDY: X-RAY CHEST REASON FOR EXAM: Male, 76 years old. PICC line placement TECHNIQUE: Single AP portable view of the chest. COMPARISON: Comparison is made with prior chest radiograph done earlier in the abdomen 11:20 AM. FINDINGS: The tip of the right PICC line catheter is at the junction of the superior vena cava and left brachiocephalic vein. A tracheostomy tube is seen. A left-sided portacatheter is present with the tip in the right atrium. Hyperinflation. Bibasilar pulmonary infiltrates. Blunting of the left cosmetic angle. RAD/CXR for Line Placement IMPRESSION: The tip of the right PIC line catheter is at the junction of the superior vena cava and left brachiocephalic vein. Electronically Signed: Joshua Schneider MD at 12:01 EST ,
--- NOTE | 2022-02-12 11:39 | NURSING ---
PICC advanced easily through clavicle area but then, Sherlock shows PICC tip malpositioning / curling in the SVC area. Had xray at bedside to see PICC tip - which is malpositioned in the sVC and curling back up toward proximal SVC. Retracted and advanced PICC 1 cm at a time with xray each movement to ensure proper tip placement. Last image shows tip in advancing toward distal SVC; Will confirm with radiology.
[2022-02-12] MEDS: Senna/Docusate Sodium 1 Tablet 2 TABLET GT (12:16)
[2022-02-12 13:21] LABS: Platelet Count 57 K/mm3 (150-450); RET-HE 26.6 pg (30-35); Reticulocyte Count 1.54 % (0.5-1.5)
--- NOTE | 2022-02-12 13:31 | CPS ---
Patient declined vest therapy at this time.
--- NOTE | 2022-02-12 13:39 | NURSING ---
Image came back and shows the tip in SVC... Dr Camarena reviewed images and gave th eok to use PICC as tip is in SVC. Radiologist report was reviewed as well.
[2022-02-12 13:46] LABS: Ferritin 308 ng/mL (26-388); Iron 13 ug/dL (65-175); Iron Binding Capacity,Total 151 ug/dL (250-450); PERCENT IRON SATURATION 8.6 % (15.0-55.0)
--- NOTE | 2022-02-12 15:29 | CASEMGMT ---
Assessment deferred at this time. Patient is currently requiring oxygen via trach and is unable to speak freely. RN CM will attempt assessment at later time.
[2022-02-12] MEDS: Polyethylene Glycol 3350 17 GM PACKET PO (21:17)
[2022-02-13] VITALS (56 sets, daily range): BP systolic 74–130; BP diastolic 42–87; PULSE 78–114; RESP 12–109; TEMP 36.5–37.6; O2SAT 92–100
[2022-02-13 03:34] LABS: Absolute Lymphocyte Count 0.82 X10^3/uL (0.83-4.51); Basophil# 0.01 X10^3/uL; Basophil% 0.2 % (0-1); Eosinophil# 0.09 X10^3/uL; Eosinophils% 2.1 % (0-5); Hematocrit 27.1 % (40-54); Hemoglobin 8.4 g/dL (13.0-16.5); Lymphocyte # 0.82 X10^3/ul (0.83-4.51); Lymphocyte % 19.3 % (19-41); Mean Corpuscular Hgb 31.5 pg (27.0-32.0); Mean Corpuscular Volume 101.5 fL (80-94); Mean Platelet Vol. 11.8 fl (6.2-12.0); Monocyte# 0.29 X10^3/uL; Monocyte% 6.8 % (0-10); NRBC Flagged by Analyzer 0 % (0-5); Neutrophil # 3.03 X10^3/uL (2.7-7.7); Neutrophil % 71.4 % (47-70); Platelet Count 172 K/mm3 (150-450); RBC Distribution Width CV 13.7 % (11.6-14.6); RBC Distribution Width SD 50.7 fl (35.1-43.9); Red Blood Count 2.67 M/mm3 (4.6-6.2); White Blood Count 4.3 K/mm3 (4.4-11.0)
[2022-02-13] MEDS: Vancomycin IV 500 MG/100 ML BAG 100 MG IV (03:38)
[2022-02-13 04:10] LABS: Vancomycin, Trough Level 11.3 ug/mL (5.0-15.0)
[2022-02-13 04:11] LABS: ALB/GLOB Ratio 0.4 RATIO (0.9-2.4); AST(SGOT) 16 U/L (15-37); Alanine Aminotransfer ALT/SGPT 13 U/L (16-61); Albumin, Serum 1.6 g/dL (3.2-5.0); Alkaline Phosphatase 46 U/L (45-117); Anion Gap 5 (5-15); BUN 26 mg/dL (7-18); BUN/Creat Ratio 15.4 RATIO (10-20); Chloride 112 mmol/L (98-107); Creatinine, Serum 1.69 mg/dL (0.70-1.30); EST Glomerular Filtration Rate 42 mL/min (>60); Est Glom Filt Rate - Afr Amer 51 mL/min (>60); Estimated Creatinine Clearance 32.44 ml/min; Globulin 4.2 g/dL (2.2-4.2); Glucose 107 mg/dL (74-106); Potassium 4.2 mmol/L (3.5-5.1); Protein, Total 5.8 g/dL (6.4-8.2); Sodium Level 142 mmol/L (136-145)
--- NOTE | 2022-02-13 05:05 | PCM.RX.CS ---
Consult Pharmacy has been consulted to manage selected antiobiotic: Vancomycin Type of Consult: Follow-up Labs: Sodium 142 mmol/L (136-145) 02/13/22 03:15 Potassium 4.2 mmol/L (3.5-5.1) 02/13/22 03:15 Chloride 112 mmol/L (98-107) H 02/13/22 03:15 Carbon Dioxide 25.0 mmol/L (21.0-32.0) 02/13/22 03:15 Anion Gap 5 (5-15) 02/13/22 03:15 BUN 26 mg/dL (7-18) H 02/13/22 03:15 Creatinine 1.69 mg/dL (0.70-1.30) H 02/13/22 03:15 Est GFR (MDRD) Af Amer 51 mL/min (>60) L 02/13/22 03:15 Est GFR (MDRD) Non-Af 42 mL/min (>60) L 02/13/22 03:15 BUN/Creatinine Ratio 15.4 RATIO (10-20) 02/13/22 03:15 Glucose 107 mg/dL (74-106) H 02/13/22 03:15 Vancomycin Trough 11.3 ug/mL (5.0-15.0) 02/13/22 03:35 Microbiology: Microbiology 02/11/22 03:15 Urine Catheter - Catheter Urine Culture - Preliminary Culture exhibits no growth. 02/11/22 02:00 Sputum, Induced/Lukens Gram Stain - Final 02/11/22 02:00 Sputum, Induced/Lukens Respiratory Culture - Preliminary Gram positive organism 02/11/22 03:15 Urine Catheter - Catheter Legionella Antigen - Final 02/11/22 03:15 Urine Catheter - Catheter Streptococcus pneumoniae Antigen (M - Final 02/11/22 02:15 Nasal Secretion SARS-CoV-2 & FLU Antigen (Rapid) - Final Goal Trough: 15-20 mcg/mL Pharmacy Plan for Drug Dosing: Pharmacy Service will continue to monitor and adjust dosing as required. TROUGH 11.3 @ 24.5 HRS. INCREASE TO 750 Q24H AND FOLLOW UP TROUGH PRIOR TO 3RD DOSE Follow-Up Labs: Trough Vancomycin Labs to be done on [date and time ordered]: 02/16 @ 2794
[2022-02-13] MEDS: Levothyroxine 50 MCG Tablet GT (06:20)
[2022-02-13] MEDS: Acetaminophen 650 MG/20 ML UDC GT ×2 (06:23→17:22)
--- NOTE | 2022-02-13 06:58 | PN.CC_ITS ---
Assessment & Plan Assessment/Plan (1) Septic shock: PLAN: Plan RECOMMENDATIONS: 1. Continue broad-spectrum antimicrobials pending sputum culture. 2. Wean Levophed to maintain a mean arterial pressure at or above 65 mmHg. 3. Continue scheduled bronchodilators. 4. Wean supplemental oxygen to maintain saturations at or above 90%. 5. Continue appropriate DVT prophylaxis. 6. Assess tube feed regimen with dietitian 7. Encourage incentive spirometer use and mobilize patient as tolerated. 8. Potential transfer out of the intensive care unit later today pending response to pressor weaning IMPRESSIONS: 1. Septic shock Improving. The patient presented with sepsis due to possible urinary and/or pulmonary sources of infection with acute sepsis related organ dysfunction as evidenced by acute kidney injury and lactic acidemia. The patient went on to develop fluid refractory hypotension, which ultimately requi red the initiation of vasopressor support to maintain hemodynamic stability. Sputum culture is showing a gram-positive organism. Agree with continuing broad-spectrum antimicrobials for now. Maintain strict n.p.o. status with nutritional support via PEG tube. Aspiration versus trach associated pneumonia suspected. Continue scheduled bronchodilators. Wean supplemental oxygen to maintain saturations at or above 90%. The patient will be continued on Levophed to maintain a mean arterial pressure at or above 65 mmHg. PICC line placed. We will hold on adding midodrine as pressors are significantly improved 2. Acute hypoxemic respiratory failure Improving. Although the patient has a presumptive history of COPD, we have never been able to complete PFTs on him. However, he does not regularly utilize supplemental oxygen at his baseline. He does continue to smoke cigarettes, nevertheless. As above, recommend continuing scheduled bronchodilators and supplemental oxygen for saturations greater than 90%. Oxygenation is slowly improving. 3. Acute on chronic kidney disease Most likely prerenal in etiology in the setting of #1. Continue current supportive measures with supplemental IV fluids and vasopressor support to adelaida ntain hemodynamic stability. Continue to monitor urine output. No current indication for renal replacement therapy. 4. History of metastatic oropharyngeal cancer/chronic dysphagia/m alnutrition/hypothyroidism/chronic tobacco dependency Complicates care, management, recovery and prognosis. Continue home medications as indicated. Continue dietary consultation for nutritional support. PT/OT evaluations would also be reasonable. Nicotine replacement therapy can be utilized while admitted to the hospital. TIME: 31 minutes of critical care time, independent of procedures, was spent addressing the patient's septic shock, acute hypoxemic respiratory failure, acute on chronic kidney disease, review of all data and collaboration with the care team. Subjective Subjective Patient did well overnight. Patient's secretions have significantly improved over the last 24 hours. Patient did have a large bowel movement this morning with improvement in abdominal discomfort. Stool was described as brown and liquidy. Patient subjectively feels less dyspneic than yesterday. Patient has remained on pressors and oxygen has remained stable. Objective Data Objective Data Vital Signs: Vital Signs Temp Pulse Resp BP Pulse Ox O2 Del Method O2 Flow Rate 37.5 C H 93 18 92/53 L 95 Trach Collar 6 02/13/22 06:00 02/13/22 06:45 02/13/22 06:00 02/13/22 06:45 02/13/22 06:00 02/13/22 06:00 02/12/22 13:48 FiO2 30 02/13/22 06:00 Oxygen Flow Rate (L/min) 6 Oxygen Delivery Method Trach Collar Weight: 60.6 kg Body Mass Index (BMI) 18.1 Intake & Output: Intake and Output for Last 24 Hours 02/11/22 02/12/22 02/13/22 23:59 23:59 23:59 Intake Total 3028.82 / 3041.92 233.94 / 233.94 Output Total 1325 / 1525 600 / 600 Balance 1703.82 / 1516.92 -366.06 / -366.06 Medical Nutrition Assessment Dietitian: Malnutrition Criteria Met Start: 02/11/22 09:51 Freq: Status: Active Protocol: Document 02/12/22 10:06 VINAYAK (Rec: 02/12/22 10:06 VINAYAK [id number]) Nutrition Malnutrition Evidence of Malnutrition Exists Yes Malnutrition (severe): Chronic Evidenced By Suboptimal Energy Intake ( Moderate),Weight Loss (Severe) ,Physical Changes (Severe) Clinical Problem Chronic Disease or Condition Related Malnutrition Etiology severe related to 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 Pt w/ fat/ muscle loss per NFPA. Status Active Problem Recommendation Dietitian Recommendations/Changes Continue Jevity 1.5 bolus feeds: 237 ml every four hours with 100 ml water flush before and after each bolus feed to provide 2133 yesica/91 gm pro/ 2280 ml free water/day. Will monitor wt trends. Lab / Micro Data Attestation: I reviewed the patient's lab results. Result Diagrams: 02/13/22 03:15 02/13/22 03:15 Labs: Laboratory Results - last 24 hr 02/12/22 13:10: Immature Plt Fraction 14.0 H, Retic Count 1.54 H, Immature Retic Fraction 24.30 H, Retic Hgb Equivalent 26.6 L 02/12/22 13:20: Iron 13 L, TIBC 151 L, Iron Saturation 8.6 L, Ferritin 308 02/13/22 03:15: WBC 4.3 L, RBC 2.67 L, Hgb 8.4 L, Hct 27.1 L, MCV 101.5 H, MCH 31.5, MCHC 31.0 L, RDW Std Deviation 50.7 H, RDW Coeff of Oz 13.7, Plt Count 172, MPV 11.8, Immature Gran % (Auto) 0.200, Neut % (Auto) 71.4 H, Lymph % (Auto) 19.3, Kaufman % (Auto) 6.8, Eos % (Auto) 2.1, Baso % (Auto) 0.2, Absolute Neuts (auto) 3.0, Absolute Lymphs (auto) 0.82 L, Nucleated RBC % 0 02/13/22 03:15: Sodium 142, Potassium 4.2, Chloride 112 H, Carbon Dioxide 25.0, Anion Gap 5, BUN 26 H, Creatinine 1.69 H, Estim Creat Clear Calc 32.44, Est GFR (MDRD) Af Amer 51 L, Est GFR (MDRD) Non-Af 42 L, BUN/Creatinine Ratio 15.4, Glucose 107 H, Calcium 8.0 L, Total Bilirubin 0.30, AST 16, ALT 13 L, Alkaline Phosphatase 46, Total Protein 5.8 L, Albumin 1.6 L, Globulin 4.2, Albumin/Globulin Ratio 0.4 L 02/13/22 03:35: Vancomycin Trough 11.3 Micro: Microbiology 02/11/22 03:15 Urine Catheter - Catheter Urine Culture - Preliminary Culture exhibits no growth. 02/11/22 02:00 Sputum, Induced/Lukens Gram Stain - Final 02/11/22 02:00 Sputum, Induced/Lukens Respiratory Culture - Preliminary Gram positive organism 11/06/22 03:15 Urine Catheter - Catheter Legionella Antigen - Final 02/11/22 03:15 Urine Catheter - Catheter Streptococcus pneumoniae Antigen (M - Final 02/11/22 02:15 Nasal Secretion SARS-CoV-2 & FLU Antigen (Rapid) - Final Radiography Diagnostic Testing: Radiology Impression KUB X-Ray 02/12/22 09:45 IMPRESSION: Moderate amount of fecal material is seen in the colon. 7.5 mm nonobstructive calculus in the midpole calyx of the left kidney. Blunting of the left cosmetic angle with bibasilar atelectasis and/or infiltrates. Electronically Signed: Joshua Schneider MD at 10:34 EST , Chest X-Ray 02/12/22 11:17 IMPRESSION: Stable examination. Electronically Signed: Joshua Schneider MD at 12:01 EST , Chest X-Ray 02/12/22 11:29 IMPRESSION: The tip of the right PICC line catheter is in the superior vena cava at the junction with the left brachiocephalic vein. Electronically Signed: Joshua Schneider MD at 12:02 EST , Chest X-Ray 02/12/22 11:30 IMPRESSION: The tip of the right PICC line catheter is at the junction of the superior vena cava and left brachiocephalic vein. Electronically Signed: Joshua Schneider MD at 12:03 EST , Chest X-Ray 02/12/22 11:30 IMPRESSION: The tip of the right PIC line catheter is at the junction of the superior vena cava and left brachiocephalic vein. Electronically Signed: Joshua Schneider MD at 12:01 EST , Physical Exam Const alert and no apparent distress Constitutional Narrative: Frail and cachectic in appearance. Stronger voice today HEENT normocephalic and head/scalp atraumatic Eyes PERRL and EOMs intact bilaterally Neck supple Neck Narrative: Stable tracheostomy site. Some clear secretions noted Chest inspection of chest normal Resp normal respiratory effort Auscultation: diminished lung sounds; Negative for rales, rhonchi or wheezes Cardio regular rate, S1 normal heart sound and S2 normal heart sound GI normal to inspection, nondistended, normoactive bowel sounds Inspection: GI tube present Extremity no clubbing, cyanosis or edema Skin no rashes or lesions noted Neuro CN's II-XII intact bilaterally and no focal motor deficits Psych cooperative and affect normal Charges/Coding Procedures Hospitalists Procedures: 83364 Critial Care 1st Hr
--- NOTE | 2022-02-13 06:59 | PCM.PN.HOSP ---
Subjective Subjective Follow-up on septic shock: Patient was seen and examined.?He remains hypotensive and on Levophed.?He had a large bowel movement yesterday. He denied any abdominal pain or emesis today. Objective Data Objective Data Vital Signs: Vital Signs Temp Pulse Resp BP Pulse Ox O2 Del Method O2 Flow Rate 99.5 F H 93 18 92/53 L 95 Trach Collar 6 02/13/22 06:00 02/13/22 06:45 02/13/22 06:00 02/13/22 06:45 02/13/22 06:00 02/13/22 06:00 02/12/22 13:48 FiO2 30 02/13/22 06:00 Oxygen Flow Rate (L/min) 6 Oxygen Delivery Method Trach Collar Weight: 60.6 kg Body Mass Index (BMI) 18.1 Intake & Output: Intake and Output for Last 24 Hours 02/11/22 02/12/22 02/13/22 23:59 23:59 23:59 Intake Total 3028.82 / 3041.92 233.94 / 233.94 Output Total 1325 / 1525 600 / 600 Balance 1703.82 / 1516.92 -366.06 / -366.06 Medical Nutrition Assessment Dietitian: Malnutrition Criteria Met Start: 02/11/22 09:51 Freq: Status: Active Protocol: Document 02/12/22 10:06 VINAYAK (Rec: 02/12/22 10:06 VINAYAK [id number]) Nutrition Malnutrition Evidence of Malnutrition Exists Yes Malnutrition (severe): Chronic Evidenced By Suboptimal Energy Intake ( Moderate),Weight Loss (Severe) ,Physical Changes (Severe) Clinical Problem Chronic Disease or Condition Related Malnutrition Etiology severe related to 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 Pt w/ fat/ muscle loss per NFPA. Status Active Problem Recommendation Dietitian Recommendations/Changes Continue Jevity 1.5 bolus feeds: 237 ml every four hours with 100 ml water flush before and after each bolus feed to provide 2133 yesica/91 gm pro/ 2280 ml free water/day. Will monitor wt trends. Lab / Micro Data Result Diagrams: 02/13/22 03:15 02/13/22 03:15 Labs: Laboratory Results - last 24 hr 02/12/22 13:10: Immature Plt Fraction 14.0 H, Retic Count 1.54 H, Immature Retic Fraction 24.30 H, Retic Hgb Equivalent 26.6 L 02/12/22 13:20: Iron 13 L, TIBC 151 L, Iron Saturation 8.6 L, Ferritin 308 02/13/22 03:15: WBC 4.3 L, RBC 2.67 L, Hgb 8.4 L, Hct 27.1 L, MCV 101.5 H, MCH 31.5, MCHC 31.0 L, RDW Std Deviation 50.7 H, RDW Coeff of Oz 13.7, Plt Count 172, MPV 11.8, Immature Gran % (Auto) 0.200, Neut % (Auto) 71.4 H, Lymph % (Auto) 19.3, Summers % (Auto) 6.8, Eos % (Auto) 2.1, Baso % (Auto) 0.2, Absolute Neuts (auto) 3.0, Absolute Lymphs (auto) 0.82 L, Nucleated RBC % 0 02/13/22 03:15: Sodium 142, Potassium 4.2, Chloride 112 H, Carbon Dioxide 25.0, Anion Gap 5, BUN 26 H, Creatinine 1.69 H, Estim Creat Clear Calc 32.44, Est GFR (MDRD) Af Amer 51 L, Est GFR (MDRD) Non-Af 42 L, BUN/Creatinine Ratio 15.4, Glucose 107 H, Calcium 8.0 L, Total Bilirubin 0.30, AST 16, ALT 13 L, Alkaline Phosphatase 46, Total Protein 5.8 L, Albumin 1.6 L, Globulin 4.2, Albumin/Globulin Ratio 0.4 L 02/13/22 03:35: Vancomycin Trough 11.3 Micro: Microbiology 02/11/22 03:15 Urine Catheter - Catheter Urine Culture - Preliminary Culture exhibits no growth. 02/11/22 02:00 Sputum, Induced/Lukens Gram Stain - Final 02/11/22 02:00 Sputum, Induced/Lukens Respiratory Culture - Preliminary Gram positive organism 02/11/22 03:15 Urine Catheter - Catheter Legionella Antigen - Final 02/11/22 03:15 Urine Catheter - Catheter Streptococcus pneumoniae Antigen (M - Final 02/11/22 02:15 Nasal Secretion SARS-CoV-2 & FLU Antigen (Rapid) - Final Radiography Diagnostic Testing: Radiology Impression KUB X-Ray 02/12/22 09:45 IMPRESSION: Moderate amount of fecal material is seen in the colon. 7.5 mm nonobstructive calculus in the midpole calyx of the left kidney. Blunting of the left cosmetic angle with bibasilar atelectasis and/or infiltrates. Electronically Signed: Joshua Schneider MD at 10:34 EST , Chest X-Ray 02/12/22 11:17 IMPRESSION: Stable examination. Electronically Signed: Joshua Schneider MD at 12:01 EST Reading Location ID and State: [id number] / [employer] , Service support , Chest X-Ray 02/12/22 11:29 IMPRESSION: The tip of the right PICC line catheter is in the superior vena cava at the junction with the left brachiocephalic vein. Electronically Signed: Joshua Schneider MD at 12:02 EST , Chest X-Ray 02/12/22 11:30 IMPRESSION: The tip of the right PICC line catheter is at the junction of the superior vena cava and left brachiocephalic vein. Electronically Signed: Joshua Schneider MD at 12:03 EST , Chest X-Ray 02/12/22 11:30 IMPRESSION: The tip of the right PIC line catheter is at the junction of the superior vena cava and left brachiocephalic vein. Electronically Signed: Joshua Schneider MD at 12:01 EST , Physical Exam Narrative Physical exam: General: Alert, Oriented x3, Cooperative, cachectic HEENT: Oxygen via trach collar Oral: Moist Mucosa Neck: Supple Lungs:Diminished to auscultation Cardiovascular: HS I+II, regular, no murmurs Abdomen: Bowel Sounds Present, Soft, Non Tender Extremities: No edema, dystrophic nails Skin: No rashes, No breakdown Neurological: Grossly intact Psych/Mental Status: Appropriate Assessment & Plan Assessment/Plan (1) Septic shock: (2) Pneumonia: (3) LEV (acute kidney injury): PLAN: Plan 1. Septic shock secondary to pneumonia/UTI, POA, persists Remains on Levophed drip Chest x-ray on 02/11/2022 shows lingula left/lower lobe pneumonia, right lower lobe atelectasis Urine Legionella and streptococcal antigen negative Blood and sputum cultures are pending Continue with IV Zosyn and vancomycin 2. Acute hypoxic respiratory failure secondary to pneumonia Patient remains on a trach collar Oxygen support improved, continue breathing treatments as needed 3. LEV on CKD stage IIIb, improving Creatinine is 1.69 from 1.95 Continue to trend 4. 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 Acute on chronic anemia/iron deficiency anemia, hemoglobin remained stable at 8.4 Stool for occult blood is still pending as patient has not had a bowel movement Will hold off on starting iron IV or po now 6. 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 Chronic pain, continue home gabapentin 9. Hypothyroidism, continue on synthroid 10. DVT prophylaxis?Lovenox and SCDs Charges/Coding Visit Charges Inpatient E&M: 44833 Subs Hosp L3
[2022-02-13] MEDS: Ipratropium/Albuterol Sulfate 3 ML AMPUL.NEB INHALATION ×3 (07:11→19:45)
[2022-02-13] MEDS: Heparin Injection (Vial) 5,000 UNIT/ML VIAL 5000 UNIT SC ×2 (10:11→21:11)
[2022-02-13] MEDS: Gabapentin 300 MG Capsule GT ×2 (10:11→21:16)
[2022-02-13] MEDS: Polyethylene Glycol 3350 17 GM PACKET PO ×2 (10:11→21:10)
[2022-02-13] MEDS: Jevity 1.5. 1,000 ML Bottle 237 ML GT ×2 (10:11→14:15)
[2022-02-13] MEDS: Finasteride 5 MG Tablet GT (10:11)
[2022-02-13] MEDS: NYSTATIN 500,000 UNIT/5 ML UDC 500000 UNIT PO ×4 (10:11→21:10)
--- NOTE | 2022-02-13 12:15 | CASEMGMT ---
RN CM Face to Face with patient and significant other for initial transition planning/care coordination assessment. RN CM introduced self and role at [facility]. Patient lying in bed, alert and oriented, significant other at bedside. Patient and significant other willing to participate in assessment and is able to answer all questions appropriately. Care providers, pharmacy, and demographics verified. Patient wishes to discharge home, denies need for home health at this time. Will monitor for outpatient therapy. Patient states he has no further needs or concerns at this time. CM to follow for discharge planning needs that may arise. PCP: LEÓN Liu Specialists: Mansoor, oncologist; Elias, Surgeon; Albert, ENT; Santos, inspector missile Preferred Pharmacy: [facility] Insurance: Lashanda AGUILAR Prescription Benefit: yes Living Will/HPOA: none LNOK: significant other Living Arrangements: Patient lives with significant other in a single story home with 1 step to enter. Patient is independent at home. Transportation: self, significant other DME/HHC: Patient has shower chair, cane, walker, raised toilet, hospital bed, nebulizer, pulse ox, suction machine, concentrator at home. Per signigicant other, oxgyen and suction machine were through [employer] and they said they were the patient now but have not been serviced in years. Patient has trach supplies through [email or web address]. Patient states he has tube feeds at home as well. No previous HHC or SNF. Disposition Plan: Patient to discharge home with family support and follow-up plans in place. Will monitor for outpatient therapy at discharge. Patient may need updated oxygen supplies at discharge. Ally CH, RN, CM
[2022-02-14] VITALS (58 sets, daily range): BP systolic 71–111; BP diastolic 47–84; PULSE 64–112; RESP 13–27; TEMP 36.3–37.2; O2SAT 92–100
[2022-02-14 04:38] LABS: Absolute Lymphocyte Count 0.76 X10^3/uL (0.83-4.51); Absolute Neutrophil Count 1.9 X10^3/uL (2.0-7.7); Basophil# 0.02 X10^3/uL; Basophil% 0.7 % (0-1); Eosinophil# 0.15 X10^3/uL; Eosinophils% 4.9 % (0-5); Hemoglobin 9.3 g/dL (13.0-16.5); Lymphocyte # 0.76 X10^3/ul (0.83-4.51); Lymphocyte % 24.9 % (19-41); Mean Platelet Vol. 11.3 fl (6.2-12.0); Monocyte# 0.19 X10^3/uL; Monocyte% 6.2 % (0-10); NRBC Flagged by Analyzer 0 % (0-5); Neutrophil # 1.92 X10^3/uL (2.7-7.7); Platelet Count 199 K/mm3 (150-450); RBC Distribution Width CV 13.7 % (11.6-14.6); RBC Distribution Width SD 50.1 fl (35.1-43.9); White Blood Count 3.1 K/mm3 (4.4-11.0)
[2022-02-14 04:55] LABS: ALB/GLOB Ratio 0.4 RATIO (0.9-2.4); AST(SGOT) 24 U/L (15-37); Alanine Aminotransfer ALT/SGPT 16 U/L (16-61); Albumin, Serum 1.8 g/dL (3.2-5.0); Alkaline Phosphatase 55 U/L (45-117); Anion Gap 7 (5-15); BUN 24 mg/dL (7-18); BUN/Creat Ratio 14.2 RATIO (10-20); Calcium,Total 8.6 mg/dL (8.5-10.1); Chloride 108 mmol/L (98-107); Creatinine, Serum 1.69 mg/dL (0.70-1.30); EST Glomerular Filtration Rate 42 mL/min (>60); Est Glom Filt Rate - Afr Amer 51 mL/min (>60); Estimated Creatinine Clearance 32.87 ml/min; Globulin 4.8 g/dL (2.2-4.2); Glucose 73 mg/dL (74-106); Potassium 3.9 mmol/L (3.5-5.1); Protein, Total 6.6 g/dL (6.4-8.2); Sodium Level 140 mmol/L (136-145)
[2022-02-14] MEDS: Levothyroxine 50 MCG Tablet GT (06:21)
[2022-02-14] MEDS: Jevity 1.5. 1,000 ML Bottle 237 ML GT ×4 (06:22→17:33)
--- NOTE | 2022-02-14 07:13 | PN.CC_ITS ---
Assessment & Plan Assessment/Plan (1) Septic shock: PLAN: Plan RECOMMENDATIONS: 1. Discontinue vancomycin. Complete 7 days of antibiotics 2. Wean Levophed to maintain a mean arterial pressure at or above 65 mmHg. Add midodrine 3. Continue scheduled bronchodilators. 4. Wean supplemental oxygen to maintain saturations at or above 90%. 5. Continue appropriate DVT prophylaxis. 6. Assess tube feed regimen with dietitian 7. Encourage incentive spirometer use and mobilize patient as tolerated. 8. Potential transfer out of the intensive care unit later today pending response to pressor weaning IMPRESSIONS: 1. Septic shock Improving. The patient presented with sepsis due to possible urinary and/or pulmonary sources of infection with acute sepsis related organ dysfunction as evidenced by acute kidney injury and lactic acidemia. The patient went on to develop fluid refractory hypotension, which ultimately required the initiation of vasopressor support to maintain hemodynamic stability. Sputum culture initially showed a gram-positive organism, but is now reporting as normal chaitanya. Low clinical suspicion for MRSA, so we will discontinue vancomycin. Could consider transition to Unasyn to complete antibiotic course. Maintain strict n.p.o. status with nutritional support via PEG tube. Aspiration versus trach associated pneumonia suspected. Continue scheduled bronchodilators. Wean supplemental oxygen to maintain saturations at or above 90%. The patient will be continued on Levophed to maintain a mean arterial pressure at or above 65 mmHg. PICC line placed. We will add midodrine to attempt discontinuation of pressors given relative stability 2. Acute hypoxemic respiratory failure Improving. Although the patient has a presumptive history of COPD, we cerda ve never been able to complete PFTs on him. However, he does not regularly utilize supplemental oxygen at his baseline. He does continue to smoke cigarettes, nevertheless. As above, recommend continuing scheduled bronchodilators and supplemental oxygen for saturations greater than 90%. Oxygenation is stable with good mobilization of secretions. 3. Acute on chronic kidney disease Most likely prerenal in etiology in the setting of #1. Continue current supportive measures with supplemental IV fluids and vasopressor support to maintain hemodynamic stability. Continue to monitor urine output. No current indication for renal replacement therapy. Appears to be at baseline creatinine at this time indicating CKD 4. History of metastatic oropharyngeal cancer/chronic dysphagia/malnutrition/hypothyroidism/chronic tobacco dependency Complicates care, management, recovery and prognosis. Continue home medications as indicated. Continue dietary consultation for nutritional support. PT/OT evaluations would also be reasonable. Nicotine replacement therapy can be utilized while admitted to the hospital. TIME: 32 minutes of critical care time, independent of procedures, was spent addre ssing the patient's septic shock, acute hypoxemic respiratory failure, acute on chronic kidney disease, review of all data and collaboration with the care team. Subjective Subjective Patient did okay from a respiratory standpoint. Continues to have copious secretions, but able to mobilize with coughing. Patient has noticed some lightening in the color. Patient has refused intermittent tube feeds as he is concerned this will lead to recurrent emesis and aspiration. Patient is not reporting any chest pain at this time. Patient does remain on low-dose Levophed. Objective Data Objective Data Vital Signs: Vital Signs Temp Pulse Resp BP Pulse Ox O2 Del Method O2 Flow Rate 36.6 C 85 15 93/61 98 Trach Collar 28 02/14/22 04:00 02/14/22 06:45 02/14/22 06:00 02/14/22 06:45 02/14/22 06:00 02/14/22 06:00 02/13/22 19:00 FiO2 28 02/14/22 06:00 Oxygen Flow Rate (L/min) 28 Oxygen Delivery Method Trach Collar Weight: 60.4 kg Body Mass Index (BMI) 18.1 Intake & Output: Intake and Output for Last 24 Hours 02/12/22 02/13/22 02/14/22 23:59 23:59 23:59 Intake Total 3028.82 / 3041.92 562.14 / 619.64 515.10 / 515.10 Output Total 1325 / 1525 1250 / 1350 550 / 550 Balance 1703.82 / 1516.92 -687.86 / -730.36 -34.90 / -34.90 Medical Nutrition Assessment Dietitian: Malnutrition Criteria Met Start: 02/11/22 09:51 Freq: Status: Active Protocol: Document 02/12/22 10:06 VINAYAK (Rec: 02/12/22 10:06 VINAYAK [id number]) Nutrition Malnutrition Evidence of Malnutrition Exists Yes Malnutrition (severe): Chronic Evidenced By Suboptimal Energy Intake ( Moderate),Weight Loss (Severe) ,Physical Changes (Severe) Clinical Problem Chronic Disease or Condition Related Malnutrition Etiology severe related to 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 Pt w/ fat/ muscle loss per NFPA. Status Active Problem Recommendation Dietitian Recommendations/Changes Continue Jevity 1.5 bolus feeds: 237 ml every four hours with 100 ml water flush before and after each bolus feed to provide 2133 yesica/91 gm pro/ 2280 ml free water/day. Will monitor wt trends. Lab / Micro Data Attestation: I reviewed the patient's lab results. Result Diagrams: 02/14/22 04:15 02/14/22 04:15 Labs: Laboratory Results - last 24 hr 02/14/22 04:15: WBC 3.1 L, RBC 3.00 L, Hgb 9.3 L, Hct 30.0 L, MCV 100.0 H, MCH 31.0, MCHC 31.0 L, RDW Std Deviation 50.1 H, RDW Coeff of Oz 13.7, Plt Count 199, MPV 11.3, Immature Gran % (Auto) 0.300, Neut % (Auto) 63.0, Lymph % (Auto) 24.9, [place] % (Auto) 6.2, Eos % (Auto) 4.9, Baso % (Auto) 0.7, Absolute Neuts (auto) 1.9 L, Absolute Lymphs (auto) 0.76 L, Nucleated RBC % 0 02/14/22 04:15: Sodium 140, Potassium 3.9, Chloride 108 H, Carbon Dioxide 25.0, Anion Gap 7, BUN 24 H, Creatinine 1.69 H, Estim Creat Clear Calc 32.87, Est GFR (MDRD) Af Amer 51 L, Est GFR (MDRD) Non-Af 42 L, BUN/Creatinine Ratio 14.2, Glucose 73 L, Calcium 8.6, Total Bilirubin 0.40, AST 24, ALT 16, Alkaline Phosphatase 55, Total Protein 6.6, Albumin 1.8 L, Globulin 4.8 H, Albumin/Globulin Ratio 0.4 L Micro: Microbiology 02/11/22 02:24 Blood Culture (Wb) - Left Forearm Blood Culture - Preliminary No growth in 48 hours. 02/11/22 01:00 EST Blood Culture (Wb) - Right Forearm Blood Culture - Preliminary No growth in 48 hours. 02/11/22 02:00 Sputum, Induced/Lukens Gram Stain - Final 02/11/22 02:00 Sputum, Induced/Lukens Respiratory Culture - Final 02/11/22 03:15 Urine Catheter - Catheter Urine Culture - Final Culture exhibits no growth. 02/11/22 03:15 Urine Catheter - Catheter Legionella Antigen - Final 02/11/22 03:15 Urine Catheter - Catheter Streptococcus pneumoniae Antigen (M - Final 02/11/22 02:15 Nasal Secretion SARS-CoV-2 & FLU Antigen (Rapid) - Final Physical Exam Const alert and no apparent distress Constitutional Narrative: Frail and cachectic in appearance. Stronger voice today HEENT normocephalic and head/scalp atraumatic Eyes PERRL and EOMs intact bilaterally Neck supple Neck Narrative: Stable tracheostomy site. Some clear secretions noted Chest inspection of chest normal Resp normal respiratory effort Auscultation: diminished lung sounds; Negative for rales, rhonchi or wheezes Cardio regular rate, S1 normal heart sound and S2 normal heart sound Rate: tachycardic GI normal to inspection, nondistended, normoactive bowel sounds Inspection: GI tube present Extremity no clubbing, cyanosis or edema Skin no rashes or lesions noted Neuro CN's II-XII intact bilaterally and no focal motor deficits Psych cooperative and affect normal Charges/Coding Procedures Hospitalists Procedures: [id number] Critial Care 1st Hr
[2022-02-14] MEDS: Ipratropium/Albuterol Sulfate 3 ML AMPUL.NEB INHALATION ×3 (07:17→19:38)
[2022-02-14] MEDS: Midodrine HCl 5 MG Tablet 10 MG PO ×3 (07:31→17:33)
--- NOTE | 2022-02-14 09:44 | PCM.PN.HOSP ---
Subjective Subjective Follow-up on septic shock: Patient was seen and examined.? Patient is still on Levophed.? He denies dizziness or chest pain or abdominal pain. Objective Data Objective Data Vital Signs: Vital Signs Temp Pulse Resp BP Pulse Ox O2 Del Method O2 Flow Rate 98 F 85 18 89/62 L 92 Trach Collar 28 02/14/22 04:00 02/14/22 08:00 02/14/22 07:19 02/14/22 07:15 02/14/22 07:00 02/14/22 07:41 02/13/22 19:00 FiO2 28 02/14/22 07:41 Oxygen Flow Rate (L/min) 28 Oxygen Delivery Method Trach Collar Weight: 60.4 kg Body Mass Index (BMI) 18.1 Intake & Output: Intake and Output for Last 24 Hours 02/12/22 02/13/22 02/14/22 23:59 23:59 23:59 Intake Total 3028.82 / 3041.92 562.14 / 619.64 567.00 / 567.00 Output Total 1325 / 1525 1250 / 1350 700 / 700 Balance 1703.82 / 1516.92 -687.86 / -730.36 -133.00 / -133.00 Medical Nutrition Assessment Dietitian: Malnutrition Criteria Met Start: 02/11/22 09:51 Freq: Status: Active Protocol: Document 02/12/22 10:06 VINAYAK (Rec: 02/12/22 10:06 VINAYAK [id number]) Nutrition Malnutrition Evidence of Malnutrition Exists Yes Malnutrition (severe): Chronic Evidenced By Suboptimal Energy Intake ( Moderate),Weight Loss (Severe) ,Physical Changes (Severe) Clinical Problem Chronic Disease or Condition Related Malnutrition Etiology severe related to 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 Pt w/ fat/ muscle loss per NFPA. Status Active Problem Recommendation Dietitian Recommendations/Changes Continue Jevity 1.5 bolus feeds: 237 ml every four hours with 100 ml water flush before and after each bolus feed to provide 2133 yesica/91 gm pro/ 2280 ml free water/day. Will monitor wt trends. Lab / Micro Data Result Diagrams: 02/14/22 04:15 02/14/22 04:15 Labs: Laboratory Results - last 24 hr 02/14/22 04:15: WBC 3.1 L, RBC 3.00 L, Hgb 9.3 L, Hct 30.0 L, MCV 100.0 H, MCH 31.0, MCHC 31.0 L, RDW Std Deviation 50.1 H, RDW Coeff of Oz 13.7, Plt Count 199, MPV 11.3, Immature Gran % (Auto) 0.300, Neut % (Auto) 63.0, Lymph % (Auto) 24.9, [place] % (Auto) 6.2, Eos % (Auto) 4.9, Baso % (Auto) 0.7, Absolute Neuts (auto) 1.9 L, Absolute Lymphs (auto) 0.76 L, Nucleated RBC % 0 02/14/22 04:15: Sodium 140, Potassium 3.9, Chloride 108 H, Carbon Dioxide 25.0, Anion Gap 7, BUN 24 H, Creatinine 1.69 H, Estim Creat Clear Calc 32.87, Est GFR (MDRD) Af Amer 51 L, Est GFR (MDRD) Non-Af 42 L, BUN/Creatinine Ratio 14.2, Glucose 73 L, Calcium 8.6, Total Bilirubin 0.40, AST 24, ALT 16, Alkaline Phosphatase 55, Total Protein 6.6, Albumin 1.8 L, Globulin 4.8 H, Albumin/Globulin Ratio 0.4 L Micro: Microbiology 02/11/22 02:24 Blood Culture (Wb) - Left Forearm Blood Culture - Preliminary No growth in 48 hours. 02/11/22 01:00 EST Blood Culture (Wb) - Right Forearm Blood Culture - Preliminary No growth in 48 hours. 02/11/22 02:00 Sputum, Induced/Lukens Gram Stain - Final 02/11/22 02:00 Sputum, Induced/Lukens Respiratory Culture - Final 02/11/22 03:15 Urine Catheter - Catheter Urine Culture - Final Culture exhibits no growth. 02/11/22 03:15 Urine Catheter - Catheter Legionella Antigen - Final 02/11/22 03:15 Urine Catheter - Catheter Streptococcus pneumoniae Antigen (M - Final 02/11/22 02:15 Nasal Secretion SARS-CoV-2 & FLU Antigen (Rapid) - Final Physical Exam Narrative Physical exam: General: Alert, Oriented x3, Cooperative, cachectic HEENT: Oxygen via trach collar Oral: Moist Mucosa Neck: Supple Lungs:Diminished to auscultation Cardiovascular: HS I+II, regular, no murmurs Abdomen: Bowel Sounds Present, Soft, Non Tender Extremities: No edema, dystrophic nails Skin: No rashes, No breakdown Neurological: Grossly intact Psych/Mental Status: Appropriate Assessment & Plan Assessment/Plan (1) Septic shock: (2) Pneumonia: (3) LEV (acute kidney injury): PLAN: Plan 1. Septic shock secondary to pneumonia/UTI, POA, persists Remains on Levophed drip. Started on midodrine Chest x-ray on 02/11/2022 shows lingula left/lower lobe pneumonia, right lower lobe atelectasis Urine Legionella and streptococcal antigen negative Blood cultures are negative. Sputum culture showed normal respiratory chaitanya. Continue with IV Zosyn - will aim for a total of 7 days 2. Acute hypoxic respiratory failure secondary to pneumonia Patient remains on a trach collar Oxygen support improved, continue breathing treatments as needed 3. 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 Acute on chronic anemia/iron deficiency anemia, hemoglobin remained stable at 9.3 Stool for occult blood is still pending as patient has not had a bowel movement Will hold off on starting iron IV or po now 6. 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 Chronic pain, continue home gabapentin 9. Hypothyroidism, continue on synthroid 10. DVT prophylaxis?Lovenox and SCDs Charges/Coding Visit Charges Inpatient E&M: 78972 Subs Hosp L3
[2022-02-14] MEDS: Heparin Injection (Vial) 5,000 UNIT/ML VIAL 5000 UNIT SC ×2 (10:04→20:52)
[2022-02-14] MEDS: NYSTATIN 500,000 UNIT/5 ML UDC 500000 UNIT PO ×4 (10:04→20:51)
[2022-02-14] MEDS: Finasteride 5 MG Tablet GT (10:05)
[2022-02-14] MEDS: Gabapentin 300 MG Capsule GT ×2 (10:05→20:52)
[2022-02-14] MEDS: Acetaminophen 650 MG/20 ML UDC GT (21:01)
[2022-02-15] VITALS (60 sets, daily range): BP systolic 68–140; BP diastolic 44–93; PULSE 60–95; RESP 11–29; TEMP 35.9–36.8; O2SAT 89–100
[2022-02-15 03:31] LABS: Absolute Lymphocyte Count 0.95 X10^3/uL (0.83-4.51); Absolute Neutrophil Count 1.3 X10^3/uL (2.0-7.7); Basophil# 0.02 X10^3/uL; Basophil% 0.7 % (0-1); Eosinophil# 0.15 X10^3/uL; Eosinophils% 5.4 % (0-5); Hematocrit 28.2 % (40-54); Hemoglobin 8.7 g/dL (13.0-16.5); Lymphocyte # 0.95 X10^3/ul (0.83-4.51); Lymphocyte % 34.4 % (19-41); Mean Corp Hgb Conc 30.9 g/dL (32-36); Mean Corpuscular Hgb 30.7 pg (27.0-32.0); Mean Corpuscular Volume 99.6 fL (80-94); Mean Platelet Vol. 10.7 fl (6.2-12.0); Monocyte% 10.9 % (0-10); NRBC Flagged by Analyzer 0 % (0-5); Neutrophil # 1.33 X10^3/uL (2.7-7.7); Neutrophil % 48.2 % (47-70); Platelet Count 198 K/mm3 (150-450); RBC Distribution Width CV 13.7 % (11.6-14.6); Red Blood Count 2.83 M/mm3 (4.6-6.2); White Blood Count 2.8 K/mm3 (4.4-11.0)
[2022-02-15 03:49] LABS: ALB/GLOB Ratio 0.4 RATIO (0.9-2.4); AST(SGOT) 25 U/L (15-37); Alanine Aminotransfer ALT/SGPT 16 U/L (16-61); Albumin, Serum 1.5 g/dL (3.2-5.0); Alkaline Phosphatase 51 U/L (45-117); Anion Gap 3 (5-15); BUN 23 mg/dL (7-18); BUN/Creat Ratio 13.5 RATIO (10-20); Calcium,Total 8.6 mg/dL (8.5-10.1); Chloride 110 mmol/L (98-107); EST Glomerular Filtration Rate 42 mL/min (>60); Est Glom Filt Rate - Afr Amer 51 mL/min (>60); Estimated Creatinine Clearance 32.57 ml/min; Globulin 4.2 g/dL (2.2-4.2); Glucose 85 mg/dL (74-106); Protein, Total 5.7 g/dL (6.4-8.2); Sodium Level 140 mmol/L (136-145)
[2022-02-15] MEDS: Levothyroxine 50 MCG Tablet GT (05:04)
[2022-02-15] MEDS: Jevity 1.5. 1,000 ML Bottle 237 ML GT ×5 (05:05→21:08)
[2022-02-15] MEDS: Ipratropium/Albuterol Sulfate 3 ML AMPUL.NEB INHALATION ×3 (07:05→19:38)
--- NOTE | 2022-02-15 07:12 | PCM.PN.INT ---
Assessment & Plan Assessment/Plan (1) Septic shock: PLAN: Plan RECOMMENDATIONS: 1. Complete 7 days of antibiotics 2. Continue midodrine. Possible fluid boluses with hypotension 3. Continue scheduled bronchodilators. Okay to discontinue vest therapy 4. Wean supplemental oxygen to maintain saturations at or above 90%. 5. Continue appropriate DVT prophylaxis. 6. Assess tube feed regimen with dietitian 7. Encourage incentive spirometer use and mobilize patient as tolerated. 8. P okay to leave the intensive care unit IMPRESSIONS: 1. Septic shock Improving. The patient presented with sepsis due to possible urinary and/or pulmonary sources of infection with acute sepsis related organ dysfunction as evidenced by acute kidney injury and lactic acidemia. The patient went on to develop fluid refractory hypotension, which ultimately required the initiation of vasopressor support to maintain hemodynamic stability. Sputum culture initially showed a gram-positive organism, but is now reporting as normal chaitanya. Patient should complete a total of 7 days of antibiotics. Maintain strict n.p.o. status with nutritional support via PEG tube. Aspiration versus trach associated pneumonia suspected. Continue scheduled bronchodilators. Wean supplemental oxygen to maintain saturations at or above 90%. Continue midodrine. Fluid boluses as necessary, but anticipate systolics in the 80s. Would recommend following mentation to guide interventions. 2. Acute hypoxemic respiratory failure Resolved. Although the patient has a presumptive history of COPD, we have never been able to complete PFTs on him. However, he does not regularly utilize supplemental oxygen at his baseline. He does continue to smoke cigarettes, nevertheless. As above, recommend continuing scheduled bronchodilators and supplemental oxygen for saturations greater than 90%. Oxygenation is stable with good mobilization of secretions. Okay to discontinue vest 3. Acute on chronic kidney disease Most likely prerenal in etiology in the setting of #1. Continue current supportive measures with supplemental IV fluids and vasopressor support to maintain hemodynamic stability. Continue to monitor urine output. No current indication for renal replacement therapy. Appears to be at baseline creatinine at this time indicating CKD 4. History of metastatic oropharyngeal cancer/chronic dysphagia/malnutrition/hypothyroidism/chronic tobacco dependency Complicates care, management, recovery and prognosis. Continue home medications as indicated. Continue dietary consultation for nutritional support. PT/OT evaluations would also be reasonable. Nicotine replacement therapy can be utilized while admitted to the hospital. Subjective Subjective Patient did okay overnight. Patient was on minimal Levophed until approximately 3 AM. Patient was slightly hypotensive at approximately 5 AM and was given a fluid bolus with good response. Patient states he typically has blood pressures 80s over 50s. Patient does get IV fluids twice a week at baseline. Patient is asymptomatic with lower blood pressures. Patient did not have any significant diarrhea overnight. Objective Data Objective Data Vital Signs: Vital Signs Temp Pulse Resp BP Pulse Ox O2 Del Method O2 Flow Rate 36.1 C L 74 21 H 77/53 L 96 Trach Collar 28 02/15/22 04:00 02/15/22 06:00 02/15/22 06:00 02/15/22 06:00 02/15/22 06:00 02/15/22 06:00 02/13/22 19:00 FiO2 28 02/15/22 06:00 Oxygen Flow Rate (L/min) 28 Oxygen Delivery Method Trach Collar Weight: 61.6 kg Body Mass Index (BMI) 18.1 Intake & Output: Intake and Output for Last 24 Hours 02/13/22 02/14/22 02/15/22 23:59 23:59 23:59 Intake Total 562.14 / 619.64 1117.33 / 1169.21 221.71 / 221.71 Output Total 1250 / 1350 1250 / 1300 200 / 200 Balance -687.86 / -730.36 -132.67 / -130.79 21.71 / 21.71 Medical Nutrition Assessment Dietitian: Malnutrition Criteria Met Start: 02/11/22 09:51 Freq: Status: Active Protocol: Document 02/12/22 10:06 VINAYAK (Rec: 02/12/22 10:06 VINAYAK [id number]) Nutrition Malnutrition Evidence of Malnutrition Exists Yes Malnutrition (severe): Chronic Evidenced By Suboptimal Energy Intake ( Moderate),Weight Loss (Severe) ,Physical Changes (Severe) Clinical Problem Chronic Disease or Condition Related Malnutrition Etiology severe related to 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 Pt w/ fat/ muscle loss per NFPA. Status Active Problem Recommendation Dietitian Recommendations/Changes Continue Jevity 1.5 bolus feeds: 237 ml every four hours with 100 ml water flush before and after each bolus feed to provide 2133 yesica/91 gm pro/ 2280 ml free water/day. Will monitor wt trends. Lab / Micro Data Attestation: I reviewed the patient's lab results. Result Diagrams: 02/15/22 03:25 02/15/22 03:25 Labs: Laboratory Results - last 24 hr 02/15/22 03:25: WBC 2.8 L, RBC 2.83 L, Hgb 8.7 L, Hct 28.2 L, MCV 99.6 H, MCH 30.7, MCHC 30.9 L, RDW Std Deviation 50.0 H, RDW Coeff of Oz 13.7, Plt Count 198, MPV 10.7, Immature Gran % (Auto) 0.400, Neut % (Auto) 48.2, Lymph % (Auto) 34.4, [place] % (Auto) 10.9 H, Eos % (Auto) 5.4 H, Baso % (Auto) 0.7, Absolute Neuts (auto) 1.3 L, Absolute Lymphs (auto) 0.95, Nucleated RBC % 0 02/15/22 03:25: Sodium 140, Potassium 4.0, Chloride 110 H, Carbon Dioxide 27.0, Anion Gap 3 L, BUN 23 H, Creatinine 1.70 H, Estim Creat Clear Calc 32.57, Est GFR (MDRD) Af Amer 51 L, Est GFR (MDRD) Non-Af 42 L, BUN/Creatinine Ratio 13.5, Glucose 85, Calcium 8.6, Total Bilirubin 0.20, AST 25, ALT 16, Alkaline Phosphatase 51, Total Protein 5.7 L, Albumin 1.5 L, Globulin 4.2, Albumin/Globulin Ratio 0.4 L Micro: Microbiology 02/11/22 02:24 Blood Culture (Wb) - Left Forearm Blood Culture - Preliminary No growth in 48 hours. 02/11/22 01:00 EST Blood Culture (Wb) - Right Forearm Blood Culture - Preliminary No growth in 48 hours. 02/11/22 02:00 Sputum, Induced/Lukens Gram Stain - Final 02/11/22 02:00 Sputum, Induced/Lukens Respiratory Culture - Final 02/11/22 03:15 Urine Catheter - Catheter Urine Culture - Final Culture exhibits no growth. 02/11/22 03:15 Urine Catheter - Catheter Legionella Antigen - Final 02/11/22 03:15 Urine Catheter - Catheter Streptococcus pneumoniae Antigen (M - Final 02/11/22 02:15 Nasal Secretion SARS-CoV-2 & FLU Antigen (Rapid) - Final Physical Exam Const alert and no apparent distress Constitutional Narrative: Frail and cachectic in appearance. Stronger voice today HEENT normocephalic and head/scalp atraumatic Eyes PERRL and EOMs intact bilaterally Neck supple Neck Narrative: Stable tracheostomy site. Some clear secretions noted Chest inspection of chest normal Resp normal respiratory effort Auscultation: diminished lung sounds; Negative for rales, rhonchi or wheezes Cardio regular rate, S1 normal heart sound and S2 normal heart sound Rate: tachycardic GI normal to inspection, nondistended, normoactive bowel sounds Inspection: GI tube present Extremity no clubbing, cyanosis or edema Skin no rashes or lesions noted Neuro CN's II-XII intact bilaterally and no focal motor deficits Psych cooperative and affect normal Charges/Coding Visit Charges Inpatient E&M: 84318 Subs Hosp L3
[2022-02-15] MEDS: NYSTATIN 500,000 UNIT/5 ML UDC 500000 UNIT PO ×4 (09:18→21:08)
[2022-02-15] MEDS: Midodrine HCl 5 MG Tablet 10 MG PO ×3 (09:18→17:43)
[2022-02-15] MEDS: Heparin Injection (Vial) 5,000 UNIT/ML VIAL 5000 UNIT SC ×2 (09:18→21:08)
[2022-02-15] MEDS: Finasteride 5 MG Tablet GT (09:19)
--- NOTE | 2022-02-15 09:19 | PN.HOSP_ITS ---
Subjective Subjective Follow-up on septic shock: Patient was seen and examined.? Patient is off Levophed. Blood pressures are marginal. No other acute events overnight. Objective Data Objective Data Vital Signs: Vital Signs Temp Pulse Resp BP Pulse Ox O2 Del Method O2 Flow Rate 96.9 F L 85 17 82/56 L 95 Trach Collar 28 02/15/22 04:00 02/15/22 07:15 02/15/22 07:15 02/15/22 07:00 02/15/22 07:15 02/15/22 07:15 02/13/22 19:00 FiO2 28 02/15/22 07:15 Oxygen Flow Rate (L/min) 28 Oxygen Delivery Method Trach Collar Weight: 61.6 kg Body Mass Index (BMI) 18.1 Intake & Output: Intake and Output for Last 24 Hours 02/13/22 02/14/22 02/15/22 23:59 23:59 23:59 Intake Total 562.14 / 619.64 1117.33 / 1169.21 721.71 / 721.71 Output Total 1250 / 1350 1250 / 1300 200 / 200 Balance -687.86 / -730.36 -132.67 / -130.79 521.71 / 521.71 Medical Nutrition Assessment Dietitian: Malnutrition Criteria Met Start: 02/11/22 09:51 Freq: Status: Active Protocol: Document 02/12/22 10:06 VINAYAK (Rec: 02/12/22 10:06 VINAYAK [id number]) Nutrition Malnutrition Evidence of Malnutrition Exists Yes Malnutrition (severe): Chronic Evidenced By Suboptimal Energy Intake ( Moderate),Weight Loss (Severe) ,Physical Changes (Severe) Clinical Problem Chronic Disease or Condition Related Malnutrition Etiology severe related to 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 Pt w/ fat/ muscle loss per NFPA. Status Active Problem Recommendation Dietitian Recommendations/Changes Continue Jevity 1.5 bolus feeds: 237 ml every four hours with 100 ml water flush before and after each bolus feed to provide 2133 yesica/91 gm pro/ 2280 ml free water/day. Will monitor wt trends. Lab / Micro Data Result Diagrams: 02/16/22 04:10 02/16/22 04:10 Labs: Laboratory Results - last 24 hr 02/15/22 03:25: WBC 2.8 L, RBC 2.83 L, Hgb 8.7 L, Hct 28.2 L, MCV 99.6 H, MCH 30.7, MCHC 30.9 L, RDW Std Deviation 50.0 H, RDW Coeff of Oz 13.7, Plt Count 198, MPV 10.7, Immature Gran % (Auto) 0.400, Neut % (Auto) 48.2, Lymph % (Auto) 34.4, [place] % (Auto) 10.9 H, Eos % (Auto) 5.4 H, Baso % (Auto) 0.7, Absolute Neuts (auto) 1.3 L, Absolute Lymphs (auto) 0.95, Nucleated RBC % 0 02/15/22 03:25: Sodium 140, Potassium 4.0, Chloride 110 H, Carbon Dioxide 27.0, Anion Gap 3 L, BUN 23 H, Creatinine 1.70 H, Estim Creat Clear Calc 32.57, Est GFR (MDRD) Af Amer 51 L, Est GFR (MDRD) Non-Af 42 L, BUN/Creatinine Ratio 13.5, Glucose 85, Calcium 8.6, Total Bilirubin 0.20, AST 25, ALT 16, Alkaline Phosphatase 51, Total Protein 5.7 L, Albumin 1.5 L, Globulin 4.2, Albumin/Globulin Ratio 0.4 L Micro: Microbiology 02/11/22 02:24 Blood Culture (Wb) - Left Forearm Blood Culture - Preliminary No growth in 48 hours. 02/11/22 01:00 EST Blood Culture (Wb) - Right Forearm Blood Culture - Preliminary No growth in 48 hours. 02/11/22 02:00 Sputum, Induced/Lukens Gram Stain - Final 02/11/22 02:00 Sputum, Induced/Lukens Respiratory Culture - Final 02/11/22 03:15 Urine Catheter - Catheter Urine Culture - Final Culture exhibits no growth. 02/11/22 03:15 Urine Catheter - Catheter Legionella Antigen - Final 02/11/22 03:15 Urine Catheter - Catheter Streptococcus pneumoniae Antigen (M - Final 02/11/22 02:15 Nasal Secretion SARS-CoV-2 & FLU Antigen (Rapid) - Final Physical Exam Narrative Physical exam: General: Alert, Oriented x3, Cooperative, cachectic HEENT: Oxygen via trach collar Oral: Moist Mucosa Neck: Supple Lungs:Diminished to auscultation Cardiovascular: HS I+II, regular, no murmurs Abdomen: Bowel Sounds Present, Soft, Non Tender Extremities: No edema, dystrophic nails Skin: No rashes, No breakdown Neurological: Grossly intact Psych/Mental Status: Appropriate Assessment & Plan Assessment/Plan (1) Septic shock: (2) Pneumonia: (3) LEV (acute kidney injury): PLAN: Plan 1. Septic shock secondary to pneumonia/UTI, POA, improved Off Levophed drip. Continue on midodrine Chest x-ray on 02/11/2022 shows lingula left/lower lobe pneumonia, right lower lobe atelectasis Urine Legionella and streptococcal antigen negative Blood cultures are negative. Sputum culture showed normal respiratory chaitanya. Continue with IV Zosyn - will aim for a total of 7 days antibiotics. 2. Acute hypoxic respiratory failure secondary to pneumonia, on a trach collar Continue breathing treatments as needed 3. LEV on CKD stage IIIb, improving Creatinine is 1.70, continue to trend 4. 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 Acute on chronic anemia/iron deficiency anemia, hemoglobin remained stable at 9.3 Stool for occult blood is still pending as patient has not had a bowel movement Will hold off on starting iron IV or po now 6. Severe protein calorie malnutrition, alterations supervisor consulted, on tube feeds 7.Chronic urinary retention secondary to BPH, s/p chaves catheter Not on flomax or doxazosin on account of hypotension 8. Chronic pain, continue home gabapentin 9. Hypothyroidism, continue on synthroid 10. DVT prophylaxis?Lovenox and SCDs Charges/Coding Visit Charges Inpatient E&M: 72930 Subs Hosp L3
[2022-02-15] MEDS: Gabapentin 300 MG Capsule GT ×2 (09:20→21:07)
[2022-02-15] MEDS: Acetaminophen 650 MG/20 ML UDC GT (17:46)
[2022-02-16] VITALS (46 sets, daily range): BP systolic 74–140; BP diastolic 51–80; PULSE 60–89; RESP 13–73; TEMP 36.2–36.7; O2SAT 90–100
[2022-02-16 04:25] LABS: Absolute Lymphocyte Count 0.74 X10^3/uL (0.83-4.51); Absolute Neutrophil Count 1.1 X10^3/uL (2.0-7.7); Basophil# 0.02 X10^3/uL; Basophil% 0.9 % (0-1); Eosinophils% 4.7 % (0-5); Hematocrit 32.2 % (40-54); Hemoglobin 9.9 g/dL (13.0-16.5); Lymphocyte # 0.74 X10^3/ul (0.83-4.51); Lymphocyte % 34.4 % (19-41); Mean Corp Hgb Conc 30.7 g/dL (32-36); Mean Corpuscular Hgb 30.8 pg (27.0-32.0); Mean Corpuscular Volume 100.3 fL (80-94); Mean Platelet Vol. 11.1 fl (6.2-12.0); Monocyte# 0.22 X10^3/uL; Monocyte% 10.2 % (0-10); NRBC Flagged by Analyzer 0 % (0-5); Neutrophil # 1.06 X10^3/uL (2.7-7.7); Neutrophil % 49.3 % (47-70); Platelet Count 216 K/mm3 (150-450); RBC Distribution Width CV 13.8 % (11.6-14.6); RBC Distribution Width SD 50.6 fl (35.1-43.9); Red Blood Count 3.21 M/mm3 (4.6-6.2); White Blood Count 2.2 K/mm3 (4.4-11.0)
[2022-02-16 04:48] LABS: ALB/GLOB Ratio 0.4 RATIO (0.9-2.4); AST(SGOT) 71 U/L (15-37); Alanine Aminotransfer ALT/SGPT 45 U/L (16-61); Albumin, Serum 1.6 g/dL (3.2-5.0); Alkaline Phosphatase 59 U/L (45-117); Anion Gap 6 (5-15); BUN 23 mg/dL (7-18); BUN/Creat Ratio 13.6 RATIO (10-20); Calcium,Total 8.7 mg/dL (8.5-10.1); Chloride 109 mmol/L (98-107); Creatinine, Serum 1.69 mg/dL (0.70-1.30); EST Glomerular Filtration Rate 42 mL/min (>60); Est Glom Filt Rate - Afr Amer 51 mL/min (>60); Estimated Creatinine Clearance 33.41 ml/min; Globulin 4.4 g/dL (2.2-4.2); Glucose 82 mg/dL (74-106); Potassium 4.1 mmol/L (3.5-5.1); Sodium Level 141 mmol/L (136-145)
[2022-02-16] MEDS: Jevity 1.5. 1,000 ML Bottle 237 ML GT ×5 (05:42→21:14)
[2022-02-16] MEDS: Levothyroxine 50 MCG Tablet GT (05:42)
--- NOTE | 2022-02-16 06:51 | PN.CC_ITS ---
Assessment & Plan Assessment/Plan (1) Septic shock: PLAN: Plan RECOMMENDATIONS: 1. Complete 7 days of antibiotics 2. Continue midodrine. Possible fluid boluses with hypotension 3. Continue scheduled bronchodilators 4. Wean supplemental oxygen to maintain saturations at or above 90%. 5. Obtain cortisol. Initiate stress dose steroids 6. Assess tube feed regimen with dietitian 7. Encourage incentive spirometer use and mobilize patient as tolerated. 8. Possible transfer from the intensive care unit pending response to stress dose steroids IMPRESSIONS: 1. Septic shock Improving. The patient presented with sepsis due to possible urinary and/or pulmonary sources of infection with acute sepsis related organ dysfunction as evidenced by acute kidney injury and lactic acidemia. The patient went on to develop fluid refractory hypotension, which ultimately required the initiation of vasopressor support to maintain hemodynamic stability. Sputum culture initially showed a gram-positive organism, but is now reporting as normal chaitanya. Patient should complete a total of 7 days of antibiotics. Maintain strict n.p.o. status with nutritional support via PEG tube. Aspiration versus trach associated pneumonia suspected. Continue scheduled bronchodilators. Wean supplemental oxygen to maintain saturations at or above 90%. Continue midodrine. Patient with lower blood pressures at baseline. Patient asymptomatic, but maps in the 50s without pressors. Will obtain a cortisol level and initiate stress dose steroids. Pneumonia appears to be improving clinically with better secretions and saturations 2. Acute hypoxemic respiratory failure Resolved. Although the patient has a presumptive history of COPD, we have never been able to complete PFTs on him. However, he does not regularly utilize supplemental oxygen at his baseline. He does continue to smoke cigarettes, nevertheless. As above, recommend continuing scheduled bronchodilators and supplemental oxygen for saturations greater than 90%. Oxygenation is stable with good mobilization of secretions. 3. Acute on chronic kidney disease Most likely prerenal in etiology in the setting of #1. Continue current supportive measures with supplemental IV fluids and vasopressor support to maintain hemodynamic stability. Continue to monitor urine output. No current indication for renal replacement therapy. Appears to be at baseline creatinine at this time indicating CKD 4. History of metastatic oropharyngeal cancer/chronic dysphag ia/malnutrition/hypothyroidism/chronic tobacco dependency Complicates care, management, recovery and prognosis. Continue home medications as indicated. Continue dietary consultation for nutritional support. PT/OT evaluations would also be reasonable. Nicotine replacement therapy can be utilized while admitted to the hospital. Subjective Subjective Patient did well overnight. No acute issues were reported outside of lower blood pressures. Patient did have to be reinitiated on Levophed yesterday and this was continued overnight. Patient reports no subjective issues related with hypotension. Secretions continue to improve. Objective Data Objective Data Vital Signs: Vital Signs Temp Pulse Resp BP Pulse Ox O2 Del Method O2 Flow Rate 36.2 C L 70 16 93/69 96 Trach Collar 5 02/16/22 04:00 02/16/22 06:00 02/16/22 06:00 02/16/22 06:00 02/16/22 06:00 02/16/22 06:00 02/15/22 11:33 FiO2 28 02/16/22 06:00 Oxygen Flow Rate (L/min) 5 Oxygen Delivery Method Trach Collar Weight: 62.3 kg Body Mass Index (BMI) 18.1 Intake & Output: Intake and Output for Last 24 Hours 02/14/22 02/15/22 02/16/22 23:59 23:59 23:59 Intake Total 1117.33 / 1169.21 2021.40 / 2223.28 570.01 / 570.01 Output Total 1250 / 1300 825 / 1025 650 / 650 Balance -132.67 / -130.79 1196.40 / 1198.28 -79.99 / -79.99 Medical Nutrition Assessment Dietitian: Malnutrition Criteria Met Start: 02/11/22 09:51 Freq: Status: Active Protocol: Document 02/12/22 10:06 VINAYAK (Rec: 02/12/22 10:06 [facility] [id number]) Nutrition Malnutrition Evidence of Malnutrition Exists Yes Malnutrition (severe): Chronic Evidenced By Suboptimal Energy Intake ( Moderate),Weight Loss (Severe) ,Physical Changes (Severe) Clinical Problem Chronic Disease or Condition Related Malnutrition Etiology severe related to 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 Pt w/ fat/ muscle loss per NFPA. Status Active Problem Recommendation Dietitian Recommendations/Changes Continue Jevity 1.5 bolus feeds: 237 ml every four hours with 100 ml water flush before and after each bolus feed to provide 2133 yesica/91 gm pro/ 2280 ml free water/day. Will monitor wt trends. Lab / Micro Data Attestation: I reviewed the patient's lab results. Result Diagrams: 02/16/22 04:10 02/16/22 04:10 Labs: Laboratory Results - last 24 hr 02/16/22 04:10: WBC 2.2 L, RBC 3.21 L, Hgb 9.9 L, Hct 32.2 L, MCV 100.3 H, MCH 30.8, MCHC 30.7 L, RDW Std Deviation 50.6 H, RDW Coeff of Oz 13.8, Plt Count 216, MPV 11.1, Immature Gran % (Auto) 0.500, Neut % (Auto) 49.3, Lymph % (Auto) 34.4, [place] % (Auto) 10.2 H, Eos % (Auto) 4.7, Baso % (Auto) 0.9, Absolute Neuts (auto) 1.1 L, Absolute Lymphs (auto) 0.74 L, Nucleated RBC % 0 02/16/22 04:10: Sodium 141, Potassium 4.1, Chloride 109 H, Carbon Dioxide 26.0, Anion Gap 6, BUN 23 H, Creatinine 1.69 H, Estim Creat Clear Calc 33.41, Est GFR (MDRD) Af Amer 51 L, Est GFR (MDRD) Non-Af 42 L, BUN/Creatinine Ratio 13.6, Glucose 82, Calcium 8.7, Total Bilirubin 0.20, AST 71 H, ALT 45, Alkaline Jaycee sphatase 59, Total Protein 6.0 L, Albumin 1.6 L, Globulin 4.4 H, Albumin/Globulin Ratio 0.4 L Micro: Microbiology 02/15/22 12:40 Stool C. difficile DNA Amplification - Final 02/15/22 12:40 Stool Stool Occult Blood (DIEGO) - Final Occult Blood Positive 02/11/22 02:24 Blood Culture (Wb) - Left Forearm Blood Culture - Preliminary No growth in 48 hours. 02/11/22 01:00 EST Blood Culture (Wb) - Right Forearm Blood Culture - Preliminary No growth in 48 hours. 02/11/22 02:00 Sputum, Induced/Lukens Gram Stain - Final 02/11/22 02:00 Sputum, Induced/Lukens Respiratory Culture - Final 02/11/22 03:15 Urine Catheter - Catheter Urine Culture - Final Culture exhibits no growth. 02/11/22 03:15 Urine Catheter - Catheter Legionella Antigen - Final 02/11/22 03:15 Urine Catheter - Catheter Streptococcus pneumoniae Antigen (M - Final 02/11/22 02:15 Nasal Secretion SARS-CoV-2 & FLU Antigen (Rapid) - Final Physical Exam Const alert and no apparent distress Constitutional Narrative: Frail and cachectic in appearance. Stronger voice today HEENT normocephalic and head/scalp atraumatic Eyes PERRL and EOMs intact bilaterally Neck supple Neck Narrative: Stable tracheostomy site. Some clear secretions noted Chest inspection of chest normal Resp normal respiratory effort Auscultation: diminished lung sounds; Negative for rales, rhonchi or wheezes Cardio regular rate, S1 normal heart sound and S2 normal heart sound Rate: tachycardic GI normal to inspection, nondistended, normoactive bowel sounds Inspection: GI tube present Extremity no clubbing, cyanosis or edema Skin no rashes or lesions noted Neuro CN's II-XII intact bilaterally and no focal motor deficits Psych cooperative and affect normal Charges/Coding Visit Charges Inpatient E&M: 14493 Subs Hosp L3
[2022-02-16] MEDS: Ipratropium/Albuterol Sulfate 3 ML AMPUL.NEB INHALATION ×3 (07:17→19:42)
[2022-02-16] MEDS: Hydrocortisone Sod Succinate 100 MG/2 ML Vial IV ×3 (07:49→21:12)
[2022-02-16] MEDS: Midodrine HCl 5 MG Tablet 10 MG PO ×3 (07:50→17:34)
--- NOTE | 2022-02-16 07:50 | PCM.PN.HOSP ---
Subjective Subjective Follow-up on septic shock: Patient was seen and examined.? Patient was transferred to PCU status yesterday. He however became hypotensive and required reinitiation of Levophed was in the ICU. His status was switched back to ICU status. He denied any dizziness or chest pain. Objective Data Objective Data Vital Signs: Vital Signs Temp Pulse Resp BP Pulse Ox O2 Del Method O2 Flow Rate 97.1 F L 69 24 H 87/57 L 96 Trach Collar 6 02/16/22 04:00 02/16/22 07:18 02/16/22 07:18 02/16/22 07:00 02/16/22 07:18 02/16/22 07:18 02/16/22 07:18 FiO2 28 02/16/22 07:18 Oxygen Flow Rate (L/min) 6 Oxygen Delivery Method Trach Collar Weight: 62.3 kg Body Mass Index (BMI) 18.1 Intake & Output: Intake and Output for Last 24 Hours 02/14/22 02/15/22 02/16/22 23:59 23:59 23:59 Intake Total 1117.33 / 1169.21 2021.40 / 2223.28 573.81 / 573.81 Output Total 1250 / 1300 825 / 1025 650 / 650 Balance -132.67 / -130.79 1196.40 / 1198.28 -76.19 / -76.19 Medical Nutrition Assessment Dietitian: Malnutrition Criteria Met Start: 02/11/22 09:51 Freq: Status: Active Protocol: Document 02/12/22 10:06 VINAYAK (Rec: 02/12/22 10:06 VINAYAK [id number]) Nutrition Malnutrition Evidence of Malnutrition Exists Yes Malnutrition (severe): Chronic Evidenced By Suboptimal Energy Intake ( Moderate),Weight Loss (Severe) ,Physical Changes (Severe) Clinical Problem Chronic Disease or Condition Related Malnutrition Etiology severe related to 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 Pt w/ fat/ muscle loss per NFPA. Status Active Problem Recommendation Dietitian Recommendations/Changes Continue Jevity 1.5 bolus feeds: 237 ml every four hours with 100 ml water flush before and after each bolus feed to provide 2133 yesica/91 gm pro/ 2280 ml free water/day. Will monitor wt trends. Lab / Micro Data Result Diagrams: 02/16/22 04:10 02/16/22 04:10 Labs: Laboratory Results - last 24 hr 02/16/22 04:10: WBC 2.2 L, RBC 3.21 L, Hgb 9.9 L, Hct 32.2 L, MCV 100.3 H, MCH 30.8, MCHC 30.7 L, RDW Std Deviation 50.6 H, RDW Coeff of Oz 13.8, Plt Count 216, MPV 11.1, Immature Gran % (Auto) 0.500, Neut % (Auto) 49.3, Lymph % (Auto) 34.4, [place] % (Auto) 10.2 H, Eos % (Auto) 4.7, Baso % (Auto) 0.9, Absolute Neuts (auto) 1.1 L, Absolute Lymphs (auto) 0.74 L, Nucleated RBC % 0 02/16/22 04:10: Sodium 141, Potassium 4.1, Chloride 109 H, Carbon Dioxide 26.0, Anion Gap 6, BUN 23 H, Creatinine 1.69 H, Estim Creat Clear Calc 33.41, Est GFR (MDRD) Af Amer 51 L, Est GFR (MDRD) Non-Af 42 L, BUN/Creatinine Ratio 13.6, Glucose 82, Calcium 8.7, Total Bilirubin 0.20, AST 71 H, ALT 45, Alkaline Phosphatase 59, Total Protein 6.0 L, Albumin 1.6 L, Globulin 4.4 H, Albumin/Globulin Ratio 0.4 L Micro: Microbiology 02/11/22 02:24 Blood Culture (Wb) - Left Forearm Blood Culture - Final No growth in 5 days. 02/11/22 01:00 EST Blood Culture (Wb) - Right Forearm Blood Culture - Final No growth in 5 days. 02/15/22 12:40 Stool C. difficile DNA Amplification - Final 02/15/22 12:40 Stool Stool Occult Blood (DIEGO) - Final Occult Blood Positive 02/11/22 02:00 Sputum, Induced/Lukens Gram Stain - Final 02/11/22 02:00 Sputum, Induced/Lukens Respiratory Culture - Final 02/11/22 03:15 Urine Catheter - Catheter Urine Culture - Final Culture exhibits no growth. 02/11/22 03:15 Urine Catheter - Catheter Legionella Antigen - Final 02/11/22 03:15 Urine Catheter - Catheter Streptococcus pneumoniae Antigen (M - Final 02/11/22 02:15 Nasal Secretion SARS-CoV-2 & FLU Antigen (Rapid) - Final Physical Exam Narrative Physical exam: General: Alert, Oriented x3, Cooperative, cachectic HEENT: Oxygen via trach collar Oral: Moist Mucosa Neck: Supple Lungs:Diminished to auscultation Cardiovascular: HS I+II, regular, no murmurs Abdomen: Bowel Sounds Present, Soft, Non Tender Extremities: No edema, dystrophic nails Skin: No rashes, No breakdown Neurological: Grossly intact Psych/Mental Status: Appropriate Assessment & Plan Assessment/Plan (1) Septic shock: (2) Pneumonia: (3) LEV (acute kidney injury): PLAN: Plan 1. Hypotension, likely secondary to adrenal insufficiency Cortisol is 13.30. Started on stress dose steroids Resume back on Levophed drip, continue on midodrine also Septic shock secondary to pneumonia/UTI, POA, resolved Chest x-ray on 02/11/2022 shows lingula left/lower lobe pneumonia, right lower lobe atelectasis Urine Legionella and streptococcal antigen negative Blood cultures are negative. Sputum culture showed normal respiratory chaitanya. Completed antibiotics 2. Acute hypoxic respiratory failure secondary to pneumonia, on a trach collar Continue breathing treatments as needed 3. LEV on CKD stage IIIb, improving Creatinine is 1.70, continue to trend 4. 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 Acute on chronic anemia/iron deficiency anemia, hemoglobin remained stable at 9.3 Stool for occult blood is still pending as patient has not had a bowel movement Will hold off on starting iron IV or po now 6. Severe protein calorie malnutrition, associate professor of law consulted, on tube feeds 7.Chronic urinary retention secondary to BPH, s/p chaves catheter Not on flomax or doxazosin on account of hypotension 8. Chronic pain, continue home gabapentin 9. Hypothyroidism, continue on synthroid 10. DVT prophylaxis?Lovenox and SCDs Charges/Coding Visit Charges Inpatient E&M: 87571 Subs Hosp L3
[2022-02-16] MEDS: Finasteride 5 MG Tablet GT (09:58)
[2022-02-16] MEDS: NYSTATIN 500,000 UNIT/5 ML UDC 500000 UNIT PO ×4 (09:58→21:12)
[2022-02-16] MEDS: Heparin Injection (Vial) 5,000 UNIT/ML VIAL 5000 UNIT SC ×2 (09:58→21:12)
[2022-02-16] MEDS: Gabapentin 300 MG Capsule GT ×2 (10:01→21:13)
--- NOTE | 2022-02-16 16:08 | CASEMGMT ---
LORRIE RIVAS in to discuss discharge planning with patient and significant other. Patient and significant other state that they prefer outpatient therapy. RN EVELYN discussed providers for outpatient therapy. Patient and significant other state they will discuss options. LORRIE RIVAS also discussed possible need for home oxygen at discharge. Patient states he prefers to setup with [employer] because he is already established with them for his trach supplies. Patient states he has equipment at home for oxygen from [facility] that is over 5 years old. LORRIE RIVAS obtained script for outpatient therapy and placed on chart. LORRIE RIVAS called Rachel with [employer] to clarify new setup. Rachel states that it would need to be a new setup. RN EVELYN placed green sheet on chart for possible home oxygen and outpatient therapy.
[2022-02-16] MEDS: Loperamide (Oral Liquid) 1 MG/7.5 ML ML 2 MG PO ×2 (17:34→21:13)
[2022-02-16] MEDS: 0.9% Saline Lock 10 ML Syringe IV (21:26)
[2022-02-17] VITALS (23 sets, daily range): BP systolic 86–124; BP diastolic 52–68; PULSE 57–86; RESP 12–23; TEMP 35.8–36.8; O2SAT 96–100
[2022-02-17 05:05] LABS: Absolute Lymphocyte Count 0.56 X10^3/uL (0.83-4.51); Absolute Neutrophil Count 1.4 X10^3/uL (2.0-7.7); Hemoglobin 8.9 g/dL (13.0-16.5); Lymphocyte # 0.56 X10^3/ul (0.83-4.51); Lymphocyte % 27.2 % (19-41); Mean Corp Hgb Conc 30.7 g/dL (32-36); Mean Corpuscular Hgb 30.6 pg (27.0-32.0); Mean Corpuscular Volume 99.7 fL (80-94); Mean Platelet Vol. 11.1 fl (6.2-12.0); Monocyte# 0.07 X10^3/uL; Monocyte% 3.4 % (0-10); NRBC Flagged by Analyzer 0 % (0-5); Neutrophil # 1.42 X10^3/uL (2.7-7.7); Neutrophil % 68.9 % (47-70); POSITIVE DIFFERENTIAL YES; Platelet Count 247 K/mm3 (150-450); RBC Distribution Width CV 13.8 % (11.6-14.6); RBC Distribution Width SD 49.9 fl (35.1-43.9); Red Blood Count 2.91 M/mm3 (4.6-6.2); White Blood Count 2.1 K/mm3 (4.4-11.0)
[2022-02-17] MEDS: Levothyroxine 50 MCG Tablet GT (05:09)
[2022-02-17] MEDS: Hydrocortisone Sod Succinate 100 MG/2 ML Vial IV ×2 (05:09→21:17)
[2022-02-17 05:14] LABS: Differential Indicated SCAN CRITERIA MET
[2022-02-17] MEDS: Jevity 1.5. 1,000 ML Bottle 120 ML GT (05:15)
[2022-02-17 05:22] LABS: ALB/GLOB Ratio 0.4 RATIO (0.9-2.4); AST(SGOT) 57 U/L (15-37); Alanine Aminotransfer ALT/SGPT 46 U/L (16-61); Albumin, Serum 1.6 g/dL (3.2-5.0); Alkaline Phosphatase 51 U/L (45-117); Anion Gap 6 (5-15); BUN 22 mg/dL (7-18); Calcium,Total 8.6 mg/dL (8.5-10.1); Chloride 110 mmol/L (98-107); Creatinine, Serum 1.69 mg/dL (0.70-1.30); EST Glomerular Filtration Rate 42 mL/min (>60); Est Glom Filt Rate - Afr Amer 51 mL/min (>60); Estimated Creatinine Clearance 33.79 ml/min; Globulin 4.3 g/dL (2.2-4.2); Glucose 131 mg/dL (74-106); Potassium 4.4 mmol/L (3.5-5.1); Protein, Total 5.9 g/dL (6.4-8.2); Sodium Level 141 mmol/L (136-145)
[2022-02-17 05:36] LABS: Differential Comment SCANNED
[2022-02-17] MEDS: Ipratropium/Albuterol Sulfate 3 ML AMPUL.NEB INHALATION ×2 (07:03→20:04)
[2022-02-17] MEDS: Midodrine HCl 5 MG Tablet 10 MG PO ×3 (09:38→18:11)
[2022-02-17] MEDS: NYSTATIN 500,000 UNIT/5 ML UDC 500000 UNIT PO ×4 (09:39→21:16)
[2022-02-17] MEDS: Finasteride 5 MG Tablet GT (09:39)
[2022-02-17] MEDS: Heparin Injection (Vial) 5,000 UNIT/ML VIAL 5000 UNIT SC ×2 (09:40→21:16)
[2022-02-17] MEDS: Jevity 1.5. 1,000 ML Bottle 237 ML GT ×5 (09:43→21:17)
[2022-02-17] MEDS: Gabapentin 300 MG Capsule GT ×2 (09:43→21:20)
--- NOTE | 2022-02-17 10:28 | PN.HOSP_ITS ---
Subjective Subjective Follow-up on septic shock: Patient was seen and examined.? He had a couple of stools overnight. He has also been off Levophed since yesterday afternoon. BP remains still marginal but his MAP has been more than 65. Objective Data Objective Data Vital Signs: Vital Signs Temp Pulse Resp BP Pulse Ox O2 Del Method O2 Flow Rate 97.3 F L 77 22 H 89/59 L 98 Trach Collar 6 02/17/22 10:00 02/17/22 10:00 02/17/22 10:00 02/17/22 10:00 02/17/22 10:00 02/17/22 10:00 02/17/22 07:03 FiO2 28 02/17/22 10:00 Oxygen Flow Rate (L/min) 6 Oxygen Delivery Method Trach Collar Weight: 63.8 kg Body Mass Index (BMI) 18.1 Intake & Output: Intake and Output for Last 24 Hours 02/15/22 02/16/22 02/17/22 23:59 23:59 23:59 Intake Total 2021.40 / 2223.28 1309.15 / 1606.15 1281 / 1281 Output Total 825 / 1025 1450 / 1450 125 / 125 Balance 1196.40 / 1198.28 -140.85 / 156.15 1156 / 1156 Medical Nutrition Assessment Dietitian: Malnutrition Criteria Met Start: 02/11/22 09:51 Freq: Status: Active Protocol: Document 02/16/22 09:54 (Rec: 02/16/22 09:54 [id number]) Nutrition Malnutrition Evidence of Malnutrition Exists No Intake Problem Inadequate Oral Intake Etiology related to inability to consume sufficient energy Signs/Symptoms as evidenced by pt with chronic PEG and NPO diet Status Active Problem Clinical Problem Chronic Disease or Condition Related Malnutrition Etiology - Signs/Symptoms - Status Inactive Problem Recommendation Dietitian Recommendations/Changes NPO Via PEG- Jevity 1.5 120mL bolus 1x/day and 237mL bolus 5x/day to provide 1957 caloires, 83 g protein. 60mL H2O flush before and after each bolus plus additional 245mL H2O flush at noon to provide 1956mL total fluid/day ; will adjust EN schedule to while awake. Lab / Micro Data Result Diagrams: 02/17/22 04:58 02/17/22 04:58 Labs: Laboratory Results - last 24 hr 02/17/22 04:58: WBC 2.1 L, RBC 2.91 L, Hgb 8.9 L, Hct 29.0 L, MCV 99.7 H, MCH 30.6, MCHC 30.7 L, RDW Std Deviation 49.9 H, RDW Coeff of Oz 13.8, Plt Count 247, MPV 11.1, Immature Gran % (Auto) 0.500, Neut % (Auto) 68.9, Lymph % (Auto) 27.2, [place] % (Auto) 3.4, Eos % (Auto) 0.0, Baso % (Auto) 0.0, Absolute Neuts (auto) 1.4 L, Absolute Lymphs (auto) 0.56 L, Nucleated RBC % 0, Differential Com ment SCANNED, Diff Path Review August02/17/22 04:58: Sodium 141, Potassium 4.4, Chloride 110 H, Carbon Dioxide 25.0, Anion Gap 6, BUN 22 H, Creatinine 1.69 H, Estim Creat Clear Calc 33.79, Est GFR (MDRD) Af Amer 51 L, Est GFR (MDRD) Non-Af 42 L, BUN/Creatinine Ratio 13.0, Glucose 131 H, Calcium 8.6, Total Bilirubin 0.20, AST 57 H, ALT 46, Alkaline Phosphatase 51, Total Protein 5.9 L, Albumin 1.6 L, Globulin 4.3 H, Albumin/Globulin Ratio 0.4 L Micro: Microbiology 02/11/22 02:24 Blood Culture (Wb) - Left Forearm Blood Culture - Final No growth in 5 days. 02/11/22 01:00 EST Blood Culture (Wb) - Right Forearm Blood Culture - Final No growth in 5 days. 02/15/22 12:40 Stool C. difficile DNA Amplification - Final 02/15/22 12:40 Stool Stool Occult Blood (DIEGO) - Final Occult Blood Positive 02/11/22 02:00 Sputum, Induced/Lukens Gram Stain - Final 02/11/22 02:00 Sputum, Induced/Lukens Respiratory Culture - Final 02/11/22 03:15 Urine Catheter - Catheter Urine Culture - Final Culture exhibits no growth. 02/11/22 03:15 Urine Catheter - Catheter Legionella Antigen - Final 02/11/22 03:15 Urine Catheter - Catheter Streptococcus pneumoniae Antigen (M - Final 02/11/22 02:15 Nasal Secretion SARS-CoV-2 & FLU Antigen (Rapid) - Final Physical Exam Narrative Physical exam: General: Alert, Oriented x3, Cooperative, cachectic HEENT: Oxygen via trach collar Oral: Moist Mucosa Neck: Supple Lungs:Diminished to auscultation Cardiovascular: HS I+II, regular, no murmurs Abdomen: Bowel Sounds Present, Soft, Non Tender Extremities: No edema, dystrophic nails Skin: No rashes, No breakdown Neurological: Grossly intact Psych/Mental Status: Appropriate Assessment & Plan Assessment/Plan (1) Septic shock: (2) Pneumonia: (3) LEV (acute kidney injury): PLAN: Plan 1. Hypotension, likely secondary to adrenal insufficiency, improved Cortisol is 13.30. Continue on IV hydrocortisone and midodrine Septic shock secondary to pneumonia/UTI, POA, resolved Chest x-ray on 02/11/2022 shows lingula left/lower lobe pneumonia, right lower lobe atelectasis Urine Legionella and streptococcal antigen negative Blood cultures are negative. Sputum culture showed normal respiratory chaitanya. Patient has had 6 days of IV antibiotics, last dose is 02/18/22 2. Acute hypoxic respiratory failure secondary to pneumonia, on a trach collar Continue breathing treatments as needed 3. LEV on CKD stage IIIb, resolved, appears to be at baseline Continue to trend 4. 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 Acute on chronic anemia/iron deficiency anemia, hemoglobin remained stable at 9.3 Stool for occult blood is still pending as patient has not had a bowel movement Will hold off on starting iron IV or po now 6. 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 Chronic pain, continue home gabapentin 9. Hypothyroidism, continue on synthroid 10. DVT prophylaxis?Lovenox and SCDs
[2022-02-17] MEDS: 0.9% Saline Lock 10 ML Syringe IV ×2 (12:47→21:18)
--- NOTE | 2022-02-17 13:52 | PCM.PN.INT ---
Assessment & Plan Assessment/Plan (1) Septic shock: PLAN: Plan RECOMMENDATIONS: 1. Completed 7 days of antibiotics. Monitor clinically 2. Continue midodrine. 3. Continue scheduled bronchodilators 4. Wean supplemental oxygen to maintain saturations at or above 90%. 5. Wean stress dose steroids over the next 7 to 10 days 6. Assess tube feed regimen with dietitian 7. Encourage incentive spirometer use and mobilize patient as tolerated. IMPRESSIONS: 1. Septic shock Resolved. The patient presented with sepsis due to possible urinary and/or pulmonary sources of infection with acute sepsis related organ dysfunction as evidenced by acute kidney injury and lactic acidemia. The patient went on to develop fluid refractory hypotension, which ultimately required the initiation of vasopressor support to maintain hemodynamic stability. Sputum culture initially showed a gram-positive organism, but is now reporting as normal chaitanya. Patient should complete a total of 7 days of antibiotics. Maintain strict n.p.o. status with nutritional support via PEG tube. Aspiration versus trach associated pneumonia suspected. Continue scheduled bronchodilators. Wean supplemental oxygen to maintain saturations at or above 90%. Continue midodrine. Patient with lower blood pressures at baseline. 2. Acute hypoxemic respiratory failure Resolved. Although the patient has a presumptive history of COPD, we have never been able to complete PFTs on him. However, he does not regularly utilize supplemental oxygen at his baseline. He does continue to smoke cigarettes, nevertheless. As above, recommend continuing scheduled bronchodilators and supplemental oxygen for saturations greater than 90%. Oxygenation is stable with good mobilization of secretions. Okay to transition to humidified air 3. Acute on chronic kidney disease Most likely prerenal in etiology in the setting of #1. Continue current supportive measures with supplemental IV fluids and vasopressor support to maintain hemodynamic stability. Continue to monitor urine output. No current indication for renal replacement therapy. Appears to be at baseline creatinine at this time indicating CKD. No indications indicated. 4. History of metastatic oropharyngeal cancer/chronic dysphagia/malnutrition/hypothyroidism/chronic tobacco dependency Complicates care, management, recovery and prognosis. Continue home medications as indicated. Continue dietary consultation for nutritional support. PT/OT evaluations would also be reasonable. Nicotine replacement therapy can be utilized while admitted to the hospital. 5. Relative adrenal insufficiency Patient with low normal cortisol despite hypotension. Patient has responded well to addition of Solu-Cortef. We will wean over the next 7 to 10 days. Would continue with midodrine for now Subjective Subjective Patient did well overnight. No acute issues were reported. Patient feels he is improved compared to previous. Patient was able to be transferred out of the intensive care unit today secondary to improve blood pressures. Patient's significant other at the bedside feels that he is more awake than he has been in months. Objective Data Objective Data Vital Signs: Vital Signs Temp Pulse Resp BP Pulse Ox O2 Del Method O2 Flow Rate 36.3 C L 67 22 H 89/59 L 98 Trach Collar 6 02/17/22 10:00 02/17/22 11:13 02/17/22 10:00 02/17/22 10:00 02/17/22 10:00 02/17/22 10:00 02/17/22 07:03 FiO2 28 02/17/22 10:00 Oxygen Flow Rate (L/min) 6 Oxygen Delivery Method Trach Collar Weight: 63.8 kg Body Mass Index (BMI) 18.1 Intake & Output: Intake and Output for Last 24 Hours 02/15/22 02/16/22 02/17/22 23:59 23:59 23:59 Intake Total 2021.40 / 2223.28 1309.15 / 1606.15 1671 / 1671 Output Total 825 / 1025 1450 / 1450 125 / 125 Balance 1196.40 / 1198.28 -140.85 / 156.15 1546 / 1546 Medical Nutrition Assessment Dietitian: Malnutrition Criteria Met Start: 02/11/22 09:51 Freq: Status: Active Protocol: Document 02/16/22 09:54 (Rec: 02/16/22 09:54 [id number]) Nutrition Malnutrition Evidence of Malnutrition Exists No Intake Problem Inadequate Oral Intake Etiology related to inability to consume sufficient energy Signs/Symptoms as evidenced by pt with chronic PEG and NPO diet Status Active Problem Clinical Problem Chronic Disease or Condition Related Malnutrition Etiology - Signs/Symptoms - Status Inactive Problem Recommendation Dietitian Recommendations/Changes NPO Via PEG- Jevity 1.5 120mL bolus 1x/day and 237mL bolus 5x/day to provide 1957 caloires, 83 g protein. 60mL H2O flush before and after each bolus plus additional 245mL H2O flush at noon to provide 1956mL total fluid/day ; will adjust EN schedule to while awake. Lab / Micro Data Attestation: I reviewed the patient's lab results. Result Diagrams: 02/17/22 04:58 02/17/22 04:58 Labs: Laboratory Results - last 24 hr 02/17/22 04:58: WBC 2.1 L, RBC 2.91 L, Hgb 8.9 L, Hct 29.0 L, MCV 99.7 H, MCH 30.6, MCHC 30.7 L, RDW Std Deviation 49.9 H, RDW Coeff of Oz 13.8, Plt Count 247, MPV 11.1, Immature Gran % (Auto) 0.500, Neut % (Auto) 68.9, Lymph % (Auto) 27.2, [place] % (Auto) 3.4, Eos % (Auto) 0.0, Baso % (Auto) 0.0, Absolute Neuts (auto) 1.4 L, Absolute Lymphs (auto) 0.56 L, Nucleated RBC % 0, Differential Comment SCANNED, Diff Path Review August02/17/22 04:58: Sodium 141, Potassium 4.4, Chloride 110 H, Carbon Dioxide 25.0, Anion Gap 6, BUN 22 H, Creatinine 1.69 H, Estim Creat Clear Calc 33.79, Est GFR (MDRD) Af Amer 51 L, Est GFR (MDRD) Non-Af 42 L, BUN/Creatinine Ratio 13.0, Glucose 131 H, Calcium 8.6, Total Bilirubin 0.20, AST 57 H, ALT 46, Alkaline Phosphatase 51, Total Protein 5.9 L, Albumin 1.6 L, Globulin 4.3 H, Albumin/Globulin Ratio 0.4 L Micro: Microbiology 02/11/22 02:24 Blood Culture (Wb) - Left Forearm Blood Culture - Final No growth in 5 days. 02/11/22 01:00 EST Blood Culture (Wb) - Right Forearm Blood Culture - Final No growth in 5 days. 02/15/22 12:40 Stool C. difficile DNA Amplification - Final 02/15/22 12:40 Stool Stool Occult Blood (DIEGO) - Final Occult Blood Positive 02/11/22 02:00 Sputum, Induced/Lukens Gram Stain - Final 02/11/22 02:00 Sputum, Induced/Lukens Respiratory Culture - Final 02/11/22 03:15 Urine Catheter - Catheter Urine Culture - Final Culture exhibits no growth. 02/11/22 03:15 Urine Catheter - Catheter Legionella Antigen - Final 02/11/22 03:15 Urine Catheter - Catheter Streptococcus pneumoniae Antigen (M - Final 02/11/22 02:15 Nasal Secretion SARS-CoV-2 & FLU Antigen (Rapid) - Final Physical Exam Const alert and no apparent distress Constitutional Narrative: Frail and cachectic in appearance. Stronger voice today HEENT normocephalic and head/scalp atraumatic Eyes PERRL and EOMs intact bilaterally Neck supple Neck Narrative: Stable tracheostomy site. Some clear secretions noted Chest inspection of chest normal Resp normal respiratory effort Auscultation: diminished lung sounds; Negative for rales, rhonchi or wheezes Cardio regular rate, S1 normal heart sound and S2 normal heart sound Rate: tachycardic GI normal to inspection, nondistended, normoactive bowel sounds Inspection: GI tube present Extremity no clubbing, cyanosis or edema Skin no rashes or lesions noted Neuro CN's II-XII intact bilaterally and no focal motor deficits Psych cooperative and affect normal Charges/Coding Visit Charges Inpatient E&M: 13073 Subs Hosp L2
[2022-02-17] MEDS: Loperamide (Oral Liquid) 1 MG/7.5 ML ML 2 MG PO (18:17)
[2022-02-18] VITALS (13 sets, daily range): BP systolic 93–114; BP diastolic 57–68; PULSE 51–82; RESP 16–24; TEMP 36.3–36.9; O2SAT 95–98
[2022-02-18 05:54] LABS: Absolute Lymphocyte Count 0.64 X10^3/uL (0.83-4.51); Absolute Neutrophil Count 3.3 X10^3/uL (2.0-7.7); Hematocrit 30.1 % (40-54); Hemoglobin 9.4 g/dL (13.0-16.5); Lymphocyte # 0.64 X10^3/ul (0.83-4.51); Lymphocyte % 15.8 % (19-41); Mean Corp Hgb Conc 31.2 g/dL (32-36); Mean Corpuscular Hgb 30.8 pg (27.0-32.0); Mean Corpuscular Volume 98.7 fL (80-94); Mean Platelet Vol. 11.3 fl (6.2-12.0); Monocyte# 0.12 X10^3/uL; NRBC Flagged by Analyzer 0 % (0-5); Neutrophil # 3.26 X10^3/uL (2.7-7.7); Neutrophil % 80.7 % (47-70); Platelet Count 269 K/mm3 (150-450); RBC Distribution Width CV 14.2 % (11.6-14.6); RBC Distribution Width SD 50.3 fl (35.1-43.9); Red Blood Count 3.05 M/mm3 (4.6-6.2)
[2022-02-18 06:25] LABS: ALB/GLOB Ratio 0.4 RATIO (0.9-2.4); AST(SGOT) 87 U/L (15-37); Alanine Aminotransfer ALT/SGPT 64 U/L (16-61); Albumin, Serum 1.7 g/dL (3.2-5.0); Alkaline Phosphatase 53 U/L (45-117); Anion Gap 5 (5-15); BUN 25 mg/dL (7-18); BUN/Creat Ratio 15.7 RATIO (10-20); Calcium,Total 8.8 mg/dL (8.5-10.1); Chloride 110 mmol/L (98-107); Creatinine, Serum 1.59 mg/dL (0.70-1.30); EST Glomerular Filtration Rate 45 mL/min (>60); Est Glom Filt Rate - Afr Amer 55 mL/min (>60); Estimated Creatinine Clearance 36.72 ml/min; Globulin 4.2 g/dL (2.2-4.2); Glucose 107 mg/dL (74-106); Potassium 4.3 mmol/L (3.5-5.1); Protein, Total 5.9 g/dL (6.4-8.2); Sodium Level 141 mmol/L (136-145)
[2022-02-18] MEDS: Jevity 1.5. 1,000 ML Bottle 120 ML GT (06:31)
[2022-02-18] MEDS: Levothyroxine 50 MCG Tablet GT (06:31)
[2022-02-18] MEDS: Ipratropium/Albuterol Sulfate 3 ML AMPUL.NEB INHALATION ×3 (07:14→19:20)
--- NOTE | 2022-02-18 07:23 | PN.CC_ITS ---
Assessment & Plan Assessment/Plan (1) Septic shock: PLAN: Plan RECOMMENDATIONS: 1. Completed 7 days of antibiotics. Monitor clinically 2. Continue midodrine. 3. Continue scheduled bronchodilators 4. Wean supplemental oxygen to maintain saturations at or above 90%. 5. Transition to prednisone by G-tube. Wean over the next 10 to 12 days 6. Assess tube feed regimen with dietitian 7. Encourage incentive spirometer use and mobilize patient as tolerated. 8. Okay to discharge from a pulmonary/critical care perspective IMPRESSIONS: 1. Septic shock Resolved. The patient presented with sepsis due to possible urinary and/or pulmonary sources of infection with acute sepsis related organ dysfunction as evidenced by acute kidney injury and lactic acidemia. The patient went on to develop fluid refractory hypotension, which ultimately required the initiation of vasopressor support to maintain hemodynamic stability. Sputum culture initially showed a gram-positive organism, but is now reporting as normal chaitanya. Patient should complete a total of 7 days of antibiotics. Maintain strict n.p.o. status with nutritional support via PEG tube. Aspiration versus trach associated pneumonia suspected. Continue scheduled bronchodilators. Wean supplemental oxygen to maintain saturations at or above 90%. Continue midodrine. Patient with lower blood pressures at baseline. 2. Acute hypoxemic respiratory failure Resolved. Although the patient has a presumptive history of COPD, we have never been able to complete PFTs on him. However, he does not regularly utilize supplemental oxygen at his baseline. He does continue to smoke cigarettes, nevertheless. As above, recommend continuing scheduled bronchodilators and supplemental oxygen for saturations greater than 90%. Oxygenation is stable with good mobilization of secretions. Okay to transition to humidified air 3. Acute on chronic kidney disease Resolved. Most likely prerenal in etiology in the setting of #1. Continue current supportive measures with supplemental IV fluids and vasopressor support to maintain hemodynamic stability. Continue to monitor urine output. No current indication for renal replacement therapy. Appears to be at baseline creatinine at this time indicating CKD. No indications indicated. 4. History of metastatic oropharyngeal cancer/chronic dysphagia/malnutrition/hypothyroidism/chronic tobacco dependency Complicates care, management, recovery and prognosis. Continue home medications as indicated. Continue dietary consultation for nutritional support. PT/OT evaluations would also be reasonable. Nicotine replacement therapy can be utilized while admitted to the hospital. 5. Relative adrenal insufficiency Patient with low normal cortisol despite hypotension. Patient has responded well to addition of Solu-Cortef. Patient will be transitioned over to prednisone liquid by G-tube. This can be weaned over the next 10 to 12 days. Once off stress dose steroids, consider decreasing midodrine therapy. Subjective Subjective Patient appears much more interactive today. Patient was actually joking with me about the weather. Patient reports he is subjectively improved compared to yesterday. Patient has been getting up with therapy. Objective Data Objective Data Vital Signs: Vital Signs Temp Pulse Resp BP Pulse Ox O2 Del Method O2 Flow Rate 36.3 C L 67 20 H 97/68 96 Trach Collar 6 02/18/22 03:30 02/18/22 03:30 02/18/22 03:30 02/18/22 03:30 02/18/22 03:30 02/18/22 03:30 02/18/22 03:30 FiO2 28 02/18/22 03:30 Oxygen Flow Rate (L/min) 6 Oxygen Delivery Method Trach Collar Weight: 63.7 kg Body Mass Index (BMI) 18.1 Intake & Output: Intake and Output for Last 24 Hours 02/16/22 02/17/22 02/18/22 23:59 23:59 23:59 Intake Total 1309.15 / 1606.15 1990 170 / 170 Output Total 1450 / 1450 525 / 747 397 / 397 Balance -140.85 / 156.15 1466 / 1244 -227 / -227 Medical Nutrition Assessment Dietitian: Malnutrition Criteria Met Start: 02/11/22 09:51 Freq: Status: Active Protocol: Document 02/16/22 09:54 (Rec: 02/16/22 09:54 [id number]) Nutrition Malnutrition Evidence of Malnutrition Exists No Intake Problem Inadequate Oral Intake Etiology related to inability to consume sufficient energy Signs/Symptoms as evidenced by pt with chronic PEG and NPO diet Status Active Problem Clinical Problem Chronic Disease or Condition Related Malnutrition Etiology - Signs/Symptoms - Status Inactive Problem Recommendation Dietitian Recommendations/Changes NPO Via PEG- Jevity 1.5 120mL bolus 1x/day and 237mL bolus 5x/day to provide 1957 caloires, 83 g protein. 60mL H2O flush before and after each bolus plus additional 245mL H2O flush at noon to provide 1956mL total fluid/day ; will adjust EN schedule to while awake. Lab / Micro Data Result Diagrams: 02/18/22 05:22 02/18/22 05:22 Labs: Laboratory Results - last 24 hr 02/18/22 05:22: WBC 4.0 L, RBC 3.05 L, Hgb 9.4 L, Hct 30.1 L, MCV 98.7 H, MCH 30.8, MCHC 31.2 L, RDW Std Deviation 50.3 H, RDW Coeff of Oz 14.2, Plt Count 269, MPV 11.3, Immature Gran % (Auto) 0.500, Neut % (Auto) 80.7 H, Lymph % (Auto) 15.8 L, [place] % (Auto) 3.0, Eos % (Auto) 0.0, Baso % (Auto) 0.0, Absolute Neuts (auto) 3.3, Absolute Lymphs (auto) 0.64 L, Nucleated RBC % 0 02/18/22 05:22: Sodium 141, Potassium 4.3, Chloride 110 H, Carbon Dioxide 26.0, Anion Gap 5, BUN 25 H, Creatinine 1.59 H, Estim Creat Clear Calc 36.72, Est GFR (MDRD) Af Amer 55 L, Est GFR (MDRD) Non-Af 45 L, BUN/Creatinine Ratio 15.7, Glucose 107 H, Calcium 8.8, Total Bilirubin 0.20, AST 87 H, ALT 64 H, Alkaline Phosphatase 53, Total Protein 5.9 L, Albumin 1.7 L, Globulin 4.2, Albumin/Globulin Ratio 0.4 L Micro: Microbiology 02/11/22 02:24 Blood Culture (Wb) - Left Forearm Blood Culture - Final No growth in 5 days. 02/11/22 01:00 EST Blood Culture (Wb) - Right Forearm Blood Culture - Final No growth in 5 days. 02/15/22 12:40 Stool C. difficile DNA Amplification - Final 02/15/22 12:40 Stool Stool Occult Blood (DIEGO) - Final Occult Blood Positive 02/11/22 02:00 Sputum, Induced/Lukens Gram Stain - Final 02/11/22 02:00 Sputum, Induced/Lukens Respiratory Culture - Final 02/11/22 03:15 Urine Catheter - Catheter Urine Culture - Final Culture exhibits no growth. 02/11/22 03:15 Urine Catheter - Catheter Legionella Antigen - Final 02/11/22 03:15 Urine Catheter - Catheter Streptococcus pneumoniae Antigen (M - Final 02/11/22 02:15 Nasal Secretion SARS-CoV-2 & FLU Antigen (Rapid) - Final Physical Exam Const alert and no apparent distress Constitutional Narrative: Frail and cachectic in appearance. Much more interactive today HEENT normocephalic and head/scalp atraumatic Eyes PERRL and EOMs intact bilaterally Neck supple Neck Narrative: Stable tracheostomy site. Some clear secretions noted Chest inspection of chest normal Resp normal respiratory effort Auscultation: diminished lung sounds; Negative for rales, rhonchi or wheezes Cardio regular rate, S1 normal heart sound and S2 normal heart sound Rate: tachycardic GI normal to inspection, nondistended, normoactive bowel sounds Inspection: GI tube present Extremity no clubbing, cyanosis or edema Skin no rashes or lesions noted Neuro CN's II-XII intact bilaterally and no focal motor deficits Psych cooperative and affect normal Charges/Coding Visit Charges Inpatient E&M: 96508 Subs Hosp L2
[2022-02-18] MEDS: NYSTATIN 500,000 UNIT/5 ML UDC 500000 UNIT PO ×4 (10:32→22:07)
[2022-02-18] MEDS: Heparin Injection (Vial) 5,000 UNIT/ML VIAL 5000 UNIT SC ×2 (10:33→22:06)
[2022-02-18] MEDS: Midodrine HCl 5 MG Tablet 10 MG PO ×2 (10:33→17:42)
[2022-02-18] MEDS: Gabapentin 300 MG Capsule GT ×2 (10:33→22:06)
[2022-02-18] MEDS: Finasteride 5 MG Tablet GT (10:33)
[2022-02-18] MEDS: prednisoLONE soln 5 MG/5 ML UDC 20 MG GT (10:36)
[2022-02-18] MEDS: Jevity 1.5. 1,000 ML Bottle 237 ML GT ×4 (10:38→22:06)
[2022-02-18] MEDS: Loperamide (Oral Liquid) 1 MG/7.5 ML ML 2 MG PO ×4 (10:47→22:07)
--- NOTE | 2022-02-18 13:02 | PN.HOSP_ITS ---
Subjective Subjective Follow-up on septic shock: Patient was seen and examined.? He denied any new complaints. Diarrhea has improved.. He is off oxygen via trach collar. Objective Data Objective Data Vital Signs: Vital Signs Temp Pulse Resp BP Pulse Ox O2 Del Method O2 Flow Rate 97.5 F L 64 16 93/58 L 98 Trach Collar 6 02/18/22 10:30 02/18/22 10:30 02/18/22 10:30 02/18/22 10:30 02/18/22 12:05 02/18/22 10:30 02/18/22 10:30 FiO2 28 02/18/22 10:30 Oxygen Flow Rate (L/min) 6 Oxygen Delivery Method Trach Collar Weight: 63.7 kg Body Mass Index (BMI) 18.1 Intake & Output: Intake and Output for Last 24 Hours 02/16/22 02/17/22 02/18/22 23:59 23:59 23:59 Intake Total 1309.15 / 1606.15 1990 220 / 220 Output Total 1450 / 1450 525 / 747 397 / 397 Balance -140.85 / 156.15 1466 / 1244 -177 / -177 Medical Nutrition Assessment Dietitian: Malnutrition Criteria Met Start: 02/11/22 09: 51 Freq: Status: Active Protocol: Document 02/16/22 09:54 AG (Rec: 02/16/22 09:54 AG [id number]) Nutrition Malnutrition Evidence of Malnutrition Exists No Intake Problem Inadequate Oral Intake Etiology related to inability to consume sufficient energy Signs/Symptoms as evidenced by pt with chronic PEG and NPO diet Status Active Problem Clinical Problem Chronic Disease or Condition Related Malnutrition Etiology - Signs/Symptoms - Status Inactive Problem Recommendation Dietitian Recommendations/Changes NPO Via PEG- Jevity 1.5 120mL bolus 1x/day and 237mL bolus 5x/day to provide 1957 caloires, 83 g protein. 60mL H2O flush before and after each bolus plus additional 245mL H2O flush at noon to provide 1956mL total fluid/day ; will adjust EN schedule to while awake. Lab / Micro Data Result Diagrams: 02/18/22 05:22 02/18/22 05:22 Labs: Laboratory Results - last 24 hr 02/18/22 05:22: WBC 4.0 L, RBC 3.05 L, Hgb 9.4 L, Hct 30.1 L, MCV 98.7 H, MCH 30.8, MCHC 31.2 L, RDW Std Deviation 50.3 H, RDW Coeff of Oz 14.2, Plt Count 269, MPV 11.3, Immature Gran % (Auto) 0.500, Neut % (Auto) 80.7 H, Lymph % (Auto) 15.8 L, [place] % (Auto) 3.0, Eos % (Auto) 0.0, Baso % (Auto) 0.0, Absolute Neuts (auto) 3.3, Absolute Lymphs (auto) 0.64 L, Nucleated RBC % 0 02/18/22 05:22: Sodium 141, Potassium 4.3, Chloride 110 H, Carbon Dioxide 26.0, Anion Gap 5, BUN 25 H, Creatinine 1.59 H, Estim Creat Clear Calc 36.72, Est GFR (MDRD) Af Amer 55 L, Est GFR (MDRD) Non-Af 45 L, BUN/Creatinine Ratio 15.7, Glucose 107 H, Calcium 8.8, Total Bilirubin 0.20, AST 87 H, ALT 64 H, Alkaline Phosphatase 53, Total Protein 5.9 L, Albumin 1.7 L, Globulin 4.2, Albumin/Globulin Ratio 0.4 L Micro: Microbiology 02/11/22 02:24 Blood Culture (Wb) - Left Forearm Blood Culture - Final No growth in 5 days. 02/11/22 01:00 EST Blood Culture (Wb) - Right Forearm Blood Culture - Final No growth in 5 days. 02/15/22 12:40 Stool C. difficile DNA Amplification - Final 02/15/22 12:40 Stool Stool Occult Blood (DIEGO) - Final Occult Blood Positive 02/11/22 02:00 Sputum, Induced/Lukens Gram Stain - Final 02/11/22 02:00 Sputum, Induced/Lukens Respiratory Culture - Final 02/11/22 03:15 Urine Catheter - Catheter Urine Culture - Final Culture exhibits no growth. 02/11/22 03:15 Urine Catheter - Catheter Legionella Antigen - Final 02/11/22 03:15 Urine Catheter - Catheter Streptococcus pneumoniae Antigen (M - Final 02/11/22 02:15 Nasal Secretion SARS-CoV-2 & FLU Antigen (Rapid) - Final Physical Exam Narrative Physical exam: General: Alert, Oriented x3, Cooperative, cachectic HEENT: trach collar Oral: Moist Mucosa Neck: Supple Lungs:Diminished to auscultation Cardiovascular: HS I+II, regular, no murmurs Abdomen: Bowel Sounds Present, Soft, Non Tender Extremities: No edema, dystrophic nails Skin: No rashes, No breakdown Neurological: Grossly intact Psych/Mental Status: Appropriate Assessment & Plan Assessment/Plan (1) Septic shock: (2) Pneumonia: (3) LEV (acute kidney injury): PLAN: Plan Summary: 76-year-old male with past medical history of hypopharyngeal CA stage IV, status post tracheostomy and PEG tube, receiving chemotherapy in the outpatient. 01/17/22 - Patient has a recent history of acute urinary retention after his outpatient surgery for a medport 01/24/22- He had gone to follow-up with urology, in the outpatient. His Chaves catheter was removed in the office and he was discharged home. He pre sented to the emergency room that night and was noted to be in acute urinary retention. Chaves catheter was placed again. 02/06/22 - He went for outpatient chemotherapy. He did not receive pembrolizumab due to concerns for infectious process. Blood and urine cultures were taken 02/11/22 -admitted to the hospital with septic shock. 1. Hypotension, likely secondary to relative adrenal insufficiency, appears resolved Cortisol was 13.30. Managed on IV hydrocortisone and midodrine Will need to be switched to prednisone liquid by the G-tube and tapered over the next 10 to 12 days 2. Septic shock secondary to pneumonia/UTI, POA, resolved Chest x-ray on 02/11/2022 showed lingula left/lower lobe pneumonia, right lower lobe atelectasis Urine Legionella and streptococcal antigen negative Blood cultures are negative. Sputum culture showed normal respiratory chaitanya. Patient completed 7 days of antibiotics 02/18/22 2. Acute hypoxic respiratory failure secondary to pneumonia, on a trach collar Will need evaluation for home oxygen at discharge tomorrow Continue breathing treatments as needed 3. LEV on CKD stage IIIb, resolved, appears to be at baseline Continue to trend 4. 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 Acute on chronic anemia/iron deficiency anemia, hemoglobin remained stable at 9.4 Stool for occult blood is positive. Patient receiving IV iron (day 2) Patient will need outpatient GI follow-up for colonoscopy 6. 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 Edmonds, patient will need to follow-up with him in the outpatient -has appointment for February 20 8. Chronic pain, continue home gabapentin 9. Hypothyroidism, continue on synthroid 10. DVT prophylaxis?Heparin subcu Charges/Coding Visit Charges Inpatient E&M: 60513 Subs Hosp L2
[2022-02-18] MEDS: 0.9% Saline Lock 10 ML Syringe IV (22:06)
[2022-02-19] VITALS (11 sets, daily range): BP systolic 98–108; BP diastolic 59–66; PULSE 54–80; RESP 16–18; TEMP 36.4–37; O2SAT 82–99
[2022-02-19] MEDS: Levothyroxine 50 MCG Tablet GT (04:51)
[2022-02-19 05:18] LABS: Absolute Neutrophil Count 2.1 X10^3/uL (2.0-7.7); Hematocrit 31.2 % (40-54); Hemoglobin 9.3 g/dL (13.0-16.5); Lymphocyte % 26.5 % (19-41); Mean Corp Hgb Conc 29.8 g/dL (32-36); Mean Corpuscular Hgb 30.8 pg (27.0-32.0); Mean Corpuscular Volume 103.3 fL (80-94); Mean Platelet Vol. 11.3 fl (6.2-12.0); Monocyte# 0.34 X10^3/uL; NRBC Flagged by Analyzer 0 % (0-5); Neutrophil # 2.14 X10^3/uL (2.7-7.7); Neutrophil % 62.9 % (47-70); Platelet Count 283 K/mm3 (150-450); RBC Distribution Width CV 14.8 % (11.6-14.6); RBC Distribution Width SD 53.8 fl (35.1-43.9); Red Blood Count 3.02 M/mm3 (4.6-6.2); White Blood Count 3.4 K/mm3 (4.4-11.0)
[2022-02-19 05:51] LABS: ALB/GLOB Ratio 0.4 RATIO (0.9-2.4); AST(SGOT) 57 U/L (15-37); Alanine Aminotransfer ALT/SGPT 61 U/L (16-61); Albumin, Serum 1.6 g/dL (3.2-5.0); Alkaline Phosphatase 45 U/L (45-117); Anion Gap 5 (5-15); BUN 27 mg/dL (7-18); BUN/Creat Ratio 17.4 RATIO (10-20); Chloride 111 mmol/L (98-107); Creatinine, Serum 1.55 mg/dL (0.70-1.30); EST Glomerular Filtration Rate 47 mL/min (>60); Est Glom Filt Rate - Afr Amer 57 mL/min (>60); Estimated Creatinine Clearance 37.67 ml/min; Globulin 4.2 g/dL (2.2-4.2); Glucose 84 mg/dL (74-106); Potassium 4.1 mmol/L (3.5-5.1); Protein, Total 5.8 g/dL (6.4-8.2); Sodium Level 143 mmol/L (136-145)
[2022-02-19] MEDS: Jevity 1.5. 1,000 ML Bottle 120 ML GT (05:53)
[2022-02-19] MEDS: Loperamide (Oral Liquid) 1 MG/7.5 ML ML 2 MG PO ×3 (05:54→13:04)
[2022-02-19] MEDS: Ipratropium/Albuterol Sulfate 3 ML AMPUL.NEB INHALATION (06:54)
--- NOTE | 2022-02-19 07:57 | PCM.PN.HOSP ---
Subjective Subjective Patient is a 76-year-old gentleman admitted with septic shock due to combination of pneumonia and acute cystitis Objective Data Objective Data Vital Signs: Vital Signs Temp Pulse Resp BP Pulse Ox O2 Del Method O2 Flow Rate 97.7 F L 62 18 98/66 96 Trach Collar 6 02/19/22 04:05 02/19/22 07:00 02/19/22 04:05 02/19/22 04:05 02/19/22 04:05 02/19/22 04:57 02/19/22 04:57 FiO2 28 02/19/22 04:57 Oxygen Flow Rate (L/min) 6 Oxygen Delivery Method Trach Collar Weight: 64.3 kg Body Mass Index (BMI) 18.1 Intake & Output: Intake and Output for Last 24 Hours 02/17/22 02/18/22 02/19/22 23:59 23:59 23:59 Intake Total 1990 2819 / 2819 280 / 280 Output Total 525 / 747 1097 / 1097 450 / 450 Balance 1466 / 1244 1722 / 1722 -170 / -170 Medical Nutrition Assessment Dietitian: Malnutrition Criteria Met Start: 02/11/22 09:51 Freq: Status: Active Protocol: Document 02/16/22 09:54 AG (Rec: 02/16/22 09:54 AG [id number]) Nutrition Malnutrition Evidence of Malnutrition Exists No Intake Problem Inadequate Oral Intake Etiology related to inability to consume sufficient energy Signs/Symptoms as evidenced by pt with chronic PEG and NPO diet Status Active Problem Clinical Problem Chronic Disease or Condition Related Malnutrition Etiology - Signs/Symptoms - Status Inactive Problem Recommendation Dietitian Recommendations/Changes NPO Via PEG- Jevity 1.5 120mL bolus 1x/day and 237mL bolus 5x/day to provide 1957 caloires, 83 g protein. 60mL H2O flush before and after each bolus plus additional 245mL H2O flush at noon to provide 1956mL total fluid/day ; will adjust EN schedule to while awake. Lab / Micro Data Result Diagrams: 02/19/22 05:06 02/19/22 05:06 Labs: Laboratory Results - last 24 hr 02/19/22 05:06: WBC 3.4 L, RBC 3.02 L, Hgb 9.3 L, Hct 31.2 L, MCV 103.3 H, MCH 30.8, MCHC 29.8 L, RDW Std Deviation 53.8 H, RDW Coeff of Oz 14.8 H, Plt Count 283, MPV 11.3, Immature Gran % (Auto) 0.600, Neut % (Auto) 62.9, Lymph % (Auto) 26.5, [place] % (Auto) 10.0, Eos % (Auto) 0.0, Baso % (Auto) 0.0, Absolute Neuts (auto) 2.1, Absolute Lymphs (auto) 0.90, Nucleated RBC % 0 02/19/22 05:06: Sodium 143, Potassium 4.1, Chloride 111 H, Carbon Dioxide 27.0, Anion Gap 5, BUN 27 H, Creatinine 1.55 H, Estim Creat Clear Calc 37.67, Est GFR (MDRD) Af Amer 57 L, Est GFR (MDRD) Non-Af 47 L, BUN/Creatinine Ratio 17.4, Glucose 84, Calcium 9.0, Total Bilirubin 0.20, AST 57 H, ALT 61, Alkaline Phosphatase 45, Total Protein 5.8 L, Albumin 1.6 L, Globulin 4.2, Albumin/Globulin Ratio 0.4 L Micro: Microbiology 02/11/22 02:24 Blood Culture (Wb) - Left Forearm Blood Culture - Final No growth in 5 days. 02/11/22 01:00 EST Blood Culture (Wb) - Right Forearm Blood Culture - Final No growth in 5 days. 02/15/22 12:40 Stool C. difficile DNA Amplification - Final 02/15/22 12:40 Stool Stool Occult Blood (DIEGO) - Final Occult Blood Positive 02/11/22 02:00 Sputum, Induced/Lukens Gram Stain - Final 02/11/22 02:00 Sputum, Induced/Lukens Respiratory Culture - Final 02/11/22 03:15 Urine Catheter - Catheter Urine Culture - Final Culture exhibits no growth. 02/11/22 03:15 Urine Catheter - Catheter Legionella Antigen - Final 02/11/22 03:15 Urine Catheter - Catheter Streptococcus pneumoniae Antigen (M - Final 02/11/22 02:15 Nasal Secretion SARS-CoV-2 & FLU Antigen (Rapid) - Final Physical Exam Narrative GENERAL: cooperative HEENT: Atraumatic; trach collar in place EYES; Anicteric, Normal Conjunctiva NECK; supple, normal thyroid, RESPIRATORY: Diminished to auscultation CARDIOVASCULAR: Regular S1 S2, GI: soft, normoactive bowel sounds, : No Renal angle tenderness; EXTREMITIES: No edema, no clubbing, MUSCULOSKELETAL: no muscle wasting NEURO: Awake; no lateralizing signs. SKIN: No Rash PSYCH; Flat affect Assessment & Plan Assessment/Plan (1) Septic shock: (2) Pneumonia: (3) LEV (acute kidney injury): PLAN: Plan Patient is a 76-year-old gentleman admitted with septic shock due to combination of pneumonia and acute cystitis 1. Septic shock ? Secondary to a combination of pneumonia and UTI patient was treated with spectrum antibiotic therapy as well as IV fluid resuscitation. Cultures obtained so far came back negative patient however did respond to treatment 2. Persistent hypotension ? Initially attributed to septic shock patient was however diagnosed with adrenal insufficiency treated with midodrine as well as prednisone taper 3. Chronic hypoxic respiratory failure ? Secondary to laryngeal CA that is post tracheostomy 4. 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 Status post tracheostomy and PEG tube placement patient currently receiving chemo as outpatient 5. Anemia - Secondary to chronic disorder monitoring H&H and transfuse if patient becomes symptomatic or hemoglobin falls below 7 6. 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 Status post PEG tube placement 7. Acute kidney injury ? Superimposed on chronic kidney disease stage IIIb ? Patient was managed with IV fluid with monitoring of electrolyte resolved kidney function back to baseline 8. Severe protein calorie malnutrition ? As evidenced by inadequate oral intake secondary to patient multiple comorbidities. Patient is currently n.p.o. and receives nutrition via PEG tube 9. Chronic pain syndrome ? Patient is on gabapentin 9..Chronic urinary retention secondary to BPH, s/p chaves catheter Not on flomax or doxazosin on account of hypotension, patient is on Proscar plans for patient to follow-up with urology as outpatient has an appointment on 02/20/2022 10. Hypothyroidism - Patient is on levothyroxine home dose continued 11. DVT prophylaxis SC Heparin Charges/Coding Visit Charges Inpatient E&M: 60222 Subs Hosp L2
--- NOTE | 2022-02-19 08:23 | PN.CC_ITS ---
Assessment & Plan Assessment/Plan (1) Septic shock: PLAN: Plan RECOMMENDATIONS: 1. Continue scheduled midodrine. 2. Continue scheduled bronchodilators. 3. Continue prednisone, with tentative plans to wean dosing over the next 10 to 12 days. 4. Supplemental oxygen, as needed, to maintain saturations at or above 90%. 5. Continue tube feeds as tolerated. 6. Encourage incentive spirometer use and mobilize patient as tolerated. IMPRESSIONS: 1. Septic shock Resolved. The patient presented with sepsis due to possible urinary and/or pulmonary sources of infection with acute sepsis related organ dysfunction as evidenced by acute kidney injury and lactic acidemia. The patient went on to develop fluid refractory hypotension, which ultimately required the initiation of vasopressor support to maintain hemodynamic stability. The patient has since completed a treatment course of antimicrobials, with improvement in his clinical status noted. Maintain strict n.p.o. status with nutritional support via PEG tube. Continue scheduled bronchodilators. Wean supplemental oxygen to maintain saturations at or above 90%. Continue midodrine. 2. Acute hypoxemic respiratory failure Improved. Although the patient has a presumptive history of COPD, we have never been able to complete PFTs on him. However, he does not regularly utilize supplemental oxygen at his baseline. He does continue to smoke cigarettes, nevertheless. As above, recommend continuing scheduled bronchodilators and supplemental oxygen for saturations greater than 90%. Oxygenation is stable with good mobilization of secretions. 3. Acute on chronic kidney disease Resolved. Most likely prerenal in etiology in the setting of #1. Continue to monitor urine output. No current indication for renal replacement therapy. Appears to be at baseline creatinine at this time indicating CKD. 4. History of metastatic oropharyngeal cancer/chronic dysphagia/mal nutrition/hypothyroidism/chronic tobacco dependency Complicates care, management, recovery and prognosis. Continue home medications as indicated. Continue dietary consultation for nutritional support. PT/OT evaluations would also be reasonable. Nicotine replacement therapy can be uti lized while admitted to the hospital. This note was generated with [employer] dictation software. It may contain incorrect words, spelling, and punctuation that were not noted in checking the note before signing. Subjective Subjective The patient was seen and examined at the bedside this morning. Events from the last 24 hours have been reviewed. The patient is currently afebrile, hemodynamically stable and maintaining appropriate oxygen saturations on trach collar with an FiO2 of 20%. The patient does report that he feels mostly back to his baseline from a respiratory perspective. Objective Data Objective Data The patient's most recent lab work, culture data and imaging studies have all been personally reviewed. Infectious work-up has been unrevealing to date. Vital Signs: Vital Signs Temp Pulse Resp BP Pulse Ox O2 Del Method O2 Flow Rate 97.7 F L 62 18 98/66 96 Trach Collar 6 02/19/22 04:05 02/19/22 07:00 02/19/22 04:05 02/19/22 04:05 02/19/22 04:05 02/19/22 04:57 02/19/22 04:57 FiO2 28 02/19/22 04:57 Oxygen Flow Rate (L/min) 6 Oxygen Delivery Method Trach Collar Weight: 141 lb 12.116 oz Body Mass Index (BMI) 18.1 Intake & Output: Intake and Output for Last 24 Hours 02/17/22 02/18/22 02/19/22 23:59 23:59 23:59 Intake Total 1990 / 1990 2819 / 2819 280 / 280 Output Total 525 / 747 1097 / 1097 450 / 450 Balance 1466 / 1244 1722 / 1722 -170 / -170 Medical Nutrition Assessment Dietitian: Malnutrition Criteria Met Start: 02/11/22 09:51 Freq: Status: Active Protocol: Document 02/16/22 09:54 AG (Rec: 02/16/22 09:54 [id number]) Nutrition Malnutrition Evidence of Malnutrition Exists No Intake Problem Inadequate Oral Intake Etiology related to inability to consume sufficient energy Signs/Symptoms as evidenced by pt with chronic PEG and NPO diet Status Active Problem Clinical Problem Chronic Disease or Condition Related Malnutrition Etiology - Signs/Symptoms - Status Inactive Problem Recommendation Dietitian Recommendations/Changes NPO Via PEG- Jevity 1.5 120mL bolus 1x/day and 237mL bolus 5x/day to provide 1957 caloires, 83 g protein. 60mL H2O flush before and after each bolus plus additional 245mL H2O flush at noon to provide 1956mL total fluid/day ; will adjust EN schedule to while awake. Lab / Micro Data Attestation: I reviewed the patient's lab results. Result Diagrams: 02/19/22 05:06 02/19/22 05:06 Labs: Laboratory Results - last 24 hr 02/19/22 05:06: WBC 3.4 L, RBC 3.02 L, Hgb 9.3 L, Hct 31.2 L, MCV 103.3 H, MCH 30.8, MCHC 29.8 L, RDW Std Deviation 53.8 H, RDW Coeff of Oz 14.8 H, Plt Count 283, MPV 11.3, Immature Gran % (Auto) 0.600, Neut % (Auto) 62.9, Lymph % (Auto) 26.5, [place] % (Auto) 10.0, Eos % (Auto) 0.0, Baso % (Auto) 0.0, Absolute Neuts (auto) 2.1, Absolute Lymphs (auto) 0.90, Nucleated RBC % 0 02/19/22 05:06: Sodium 143, Potassium 4.1, Chloride 111 H, Carbon Dioxide 27.0, Anion Gap 5, BUN 27 H, Creatinine 1.55 H, Estim Creat Clear Calc 37.67, Est GFR (MDRD) Af Amer 57 L, Est GFR (MDRD) Non-Af 47 L, BUN/Creatinine Ratio 17.4, Glucose 84, Calcium 9.0, Total Bilirubin 0.20, AST 57 H, ALT 61, Alkaline Phosphatase 45, Total Protein 5.8 L, Albumin 1.6 L, Globulin 4.2, Albumin/Globulin Ratio 0.4 L Micro: Microbiology 02/11/22 02:24 Blood Culture (Wb) - Left Forearm Blood Culture - Final No growth in 5 days. 02/11/22 01:00 EST Blood Culture (Wb) - Right Forearm Blood Culture - Final No growth in 5 days. 02/15/22 12:40 Stool C. difficile DNA Amplification - Final 02/15/22 12:40 Stool Stool Occult Blood (DIEGO) - Final Occult Blood Positive 02/11/22 02:00 Sputum, Induced/Lukens Gram Stain - Final 02/11/22 02:00 Sputum, Induced/Lukens Respiratory Culture - Final 02/11/22 03:15 Urine Catheter - Catheter Urine Culture - Final Culture exhibits no growth. 02/11/22 03:15 Urine Catheter - Catheter Legionella Antigen - Final 02/11/22 03:15 Urine Catheter - Catheter Streptococcus pneumoniae Antigen (M - Final 02/11/22 02:15 Nasal Secretion SARS-CoV-2 & FLU Antigen (Rapid) - Final Physical Exam Const alert and no apparent distress Constitutional Narrative: Frail and cachectic in appearance. Sitting in bedside recliner. HEENT normocephalic and head/scalp atraumatic Eyes PERRL and EOMs intact bilaterally Neck supple Neck Narrative: Stable tracheostomy site. Chest inspection of chest normal Resp normal respiratory effort Auscultation: diminished lung sounds; Negative for rales, rhonchi or wheezes Cardio regular rate, regular rhythm, S1 normal heart sound and S2 normal heart sound GI normal to inspection, nondistended, normoactive bowel sounds Inspection: GI tube present Extremity no clubbing, cyanosis or edema Skin no rashes or lesions noted Neuro CN's II-XII intact bilaterally and no focal motor deficits Psych cooperative and affect normal Charges/Coding Visit Charges Inpatient E&M: 58318 Subs Hosp L2
[2022-02-19] MEDS: prednisoLONE soln 5 MG/5 ML UDC 20 MG GT (09:52)
[2022-02-19] MEDS: Midodrine HCl 5 MG Tablet 10 MG PO ×2 (09:53→13:04)
[2022-02-19] MEDS: Jevity 1.5. 1,000 ML Bottle 237 ML GT ×2 (09:54→13:05)
[2022-02-19] MEDS: Gabapentin 300 MG Capsule GT (09:54)
[2022-02-19] MEDS: NYSTATIN 500,000 UNIT/5 ML UDC 500000 UNIT PO ×2 (09:54→13:05)
[2022-02-19] MEDS: Heparin Injection (Vial) 5,000 UNIT/ML VIAL 5000 UNIT SC (09:54)
[2022-02-19] MEDS: Finasteride 5 MG Tablet GT (09:55)
--- NOTE | 2022-02-19 10:33 | CASEMGMT ---
Addendum entered by Ally Gagnon 02/19/22 13:46: [employer] to bedside with e-tank. Marquise ANDREW CM Addendum entered by Ally Gagnon 02/19/22 13:40: [facility] also updated to call sig other to set up appt's. Marquise ANDREW CM Addendum entered by Ally Gagnon 02/19/22 13:33: This [facility] CM to room to discuss d/c plan with pt/sig other. Previously, they had requested OP therapy and per therapy, this is still the recommendation. Pt/sig other would like script faxed to [facility] and this was completed as well as chart updated with sig other phone number for pt's as he does not answer. [employer] updated on same, voices understanding. Pt to be sent home with e-tank at discharge and sig other aware to call [employer] once home for them to set up concentrator/portable tanks. Sig other aware to keep pt's oxygen level 89% and greater. Pt/sig other voice no further questions/concerns/needs. Marquise ANDREW CM Original Note: Per Jacki RN, pt qualifies for home oxygen 6L w/ exertion and pt had stated previous preference for [employer] and order sent via [facility]. CM to follow. Marquise ANDREW CM
--- NOTE | 2022-02-19 11:33 | DS.PCM_ITS ---
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 Plumbing Installer / Pulmonary Medicine Routine Consulting Provider: Pulmonary Medicine michael Rodney Reason for Consult: Sepsis/pneumonia/acute hypoxic respiratory failure EMERGENT Consult: No MD Notified: Yes Date Notified: 02/11/22 Time Notified: 03:09 Method of Notification: Text Reason For Visit: SEPSIS/ACUTE HYPOXIC RESPIRITORY FAILURE SECONDARY Diagnosis Discharge Diagnosis (1) Septic shock: Status: Acute Code(s): A41.9 - Sepsis, unspecified organism; R65.21 - Severe sepsis with septic shock (2) Pneumonia: Status: Acute Code(s): J18.9 - Pneumonia, unspecified organism (3) LEV (acute kidney injury): Status: Acute Code(s): N17.9 - Acute kidney failure, unspecified Plan Patient is a 76-year-old gentleman admitted with septic shock due to combination of pneumonia and acute cystitis 1. Septic shock ? Secondary to a combination of pneumonia and UTI patient was treated with spectrum antibiotic therapy as well as IV fluid resuscitation. Cultures obtained so far came back negative patient however did respond to treatment 2. Persistent hypotension ? Initially attributed to septic shock patient was however diagnosed with adre nal insufficiency treated with midodrine as well as prednisone taper 3. Chronic hypoxic respiratory failure ? Secondary to laryngeal CA that is post tracheostomy 4. 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 Status post tracheostomy and PEG tube placement patient currently receiving chemo as outpatient 5. Anemia - Secondary to chronic disorder monitoring H&H and transfuse if patient becomes symptomatic or hemoglobin falls below 7 6. 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 Status post PEG tube placement 7. Acute kidney injury ? Superimposed on chronic kidney disease stage IIIb ? Patient was managed with IV fluid with monitoring of electrolyte resolved kidney function back to baseline 8. Severe protein calorie malnutrition ? As evidenced by inadequate oral intake secondary to patient multiple comorbidities. Patient is currently n.p.o. and receives nutrition via PEG tube 9. Chronic pain syndrome ? Patient is on gabapentin 9..Chronic urinary retention secondary to BPH, s/p chaves catheter Not on flomax or doxazosin on account of hypotension, patient is on Proscar plans for patient to follow-up with urology as outpatient has an appointment on 02/20/2022 10. Hypothyroidism - Patient is on levothyroxine home dose continued 11. DVT prophylaxis SC Heparin Medications at Discharge Home Medications gabapentin 300 mg/6 mL (6 mL) oral solution 300 mg G-tube BID nerve pain 09/09/18 lactose-reduced food with fiber 0.06 gram-1.5 kcal/mL oral liquid 237 ml G-tube Q4H nutrition 09/09/18 levothyroxine 50 mcg tablet 50 mcg PO DAILY #30 tabs 08/22/21 finasteride 5 mg tablet 5 mg PO DAILY 02/11/22 midodrine 5 mg tablet 10 mg PO TIDCM 30 days #180 tabs 02/19/22 prednisolone sodium phosphate 5 mg base/5 mL (6.7 mg/5 mL) oral soln 20 mg (20 mL) G-tube BREAKFAST 10 days #200 mL 02/19/22 Hospital Course Summary of Care Provided Minutes Spent on Discharge: 45 Physical Exam Narrative GENERAL: cooperative HEENT: Atraumatic; trach collar in place EYES; Anicteric, Normal Conjunctiva NECK; supple, normal thyroid, RESPIRATORY: Diminished to auscultation CARDIOVASCULAR: Regular S1 S2, GI: soft, normoactive bowel sounds, : No Renal angle tenderness; EXTREMITIES: No edema, no clubbing, MUSCULOSKELETAL: no muscle wasting NEURO: Awake; no lateralizing signs. SKIN: No Rash PSYCH; Flat affect Medical Records Data Medical Nutrition Assessment Dietitian: Malnutrition Criteria Met Start: 02/11/22 09:51 Freq: Status: Active Protocol: Document 02/16/22 09:54 AG (Rec: 02/16/22 09:54 AG [id number]) Nutrition Malnutrition Evidence of Malnutrition Exists No Intake Problem Inadequate Oral Intake Etiology related to inability to consume sufficient energy Signs/Symptoms as evidenced by pt with chronic PEG and NPO diet Status Active Problem Clinical Problem Chronic Disease or Condition Related Malnutrition Etiology - Signs/Symptoms - Status Inactive Problem Recommendation Dietitian Recommendations/Changes NPO Via PEG- Jevity 1.5 120mL bolus 1x/day and 237mL bolus 5x/day to provide 1957 caloires, 83 g protein. 60mL H2O flush before and after each bolus plus additional 245mL H2O flush at noon to provide 1956mL total fluid/day ; will adjust EN schedule to while awake. Weight / BMI Weight Weight: 64.3 kg Body Mass Index (BMI) 18.1 ABG / Lab / Microbiology Data Result Diagrams: 02/19/22 05:06 02/19/22 05:06 Laboratory: Laboratory Results - last 24 hr 02/19/22 05:06: WBC 3.4 L, RBC 3.02 L, Hgb 9.3 L, Hct 31.2 L, MCV 103.3 H, MCH 30.8, MCHC 29.8 L, RDW Std Deviation 53.8 H, RDW Coeff of Oz 14.8 H, Plt Count 283, MPV 11.3, Immature Gran % (Auto) 0.600, Neut % (Auto) 62.9, Lymph % (Auto) 26.5, Bradford % (Auto) 10.0, Eos % (Auto) 0.0, Baso % (Auto) 0.0, Absolute Neuts (auto) 2.1, Absolute Lymphs (auto) 0.90, Nucleated RBC % 0 02/19/22 05:06: Sodium 143, Potassium 4.1, Chloride 111 H, Carbon Dioxide 27.0, Anion Gap 5, BUN 27 H, Creatinine 1.55 H, Estim Creat Clear Calc 37.67, Est GFR (MDRD) Af Amer 57 L, Est GFR (MDRD) Non-Af 47 L, BUN/Creatinine Ratio 17.4, Glucose 84, Calcium 9.0, Total Bilirubin 0.20, AST 57 H, ALT 61, Alkaline Phosphatase 45, Total Protein 5.8 L, Albumin 1.6 L, Globulin 4.2, Albumin/Globulin Ratio 0.4 L Microbiology: Microbiology 02/11/22 02:24 Blood Culture (Wb) - Left Forearm Blood Culture - Final No growth in 5 days. 02/11/22 01:00 EST Blood Culture (Wb) - Right Forearm Blood Culture - Final No growth in 5 days. 02/15/22 12:40 Stool C. difficile DNA Amplification - Final 02/15/22 12:40 Stool Stool Occult Blood (DIEGO) - Final Occult Blood Positive 02/11/22 02:00 Sputum, Induced/Lukens Gram Stain - Final 02/11/22 02:00 Sputum, Induced/Lukens Respiratory Culture - Final 02/11/22 03:15 Urine Catheter - Catheter Urine Culture - Final Culture exhibits no growth. 02/11/22 03:15 Urine Catheter - Catheter Legionella Antigen - Final 02/11/22 03:15 Urine Catheter - Catheter Streptococcus pneumoniae Antigen (M - Final 02/11/22 02:15 Nasal Secretion SARS-CoV-2 & FLU Antigen (Rapid) - Final D/C Instructions Discharge Activity: Return to Normal Activity Call your doctor if you observe: Fever of 101 or Higher, Shortness of breath, Fainting spells and Chest pain Meaningful Use Info Meaningful Use Diagnoses (Choose all that apply): None applicable Discharge Plan Admission Admit Date/Time: 02/11/22 03:04 Attending Provider: Larry Hopper Primary Care Provider: Alejandro Liu Consulting Providers: Kristine Graham ; Rosi Payne ; Inessa Cowart ; Hebert Camarena ; Stuart Polo ; Santos Marino ; Dean Renee ; Kayleen Callejas NP ; Yara Mccabe Discharge Orders/Prescriptions Prescriptions: New midodrine 5 mg Tablet 10 mg PO TIDCM 30 Days Qty: 180 0RF prednisolone sodium phosphate 5 mg base/5 mL (6.7 mg/5 mL) Solution 20 mg G-tube BREAKFAST 10 Days Qty: 200 0RF Rx Instructions: 20 mg daily for 3 days, 15 mg daily for 3 days, 10 mg daily for 3 days, 5 mg daily for 3 days and stop Continued levothyroxine 50 mcg tablet 50 mcg PO DAILY Qty: 30 2RF gabapentin 300 MG/6 ML solution 300 mg GT BID lactose-reduced food with fibr 237 ML liquid 237 ml GT Q4H finasteride 5 mg Tablet 5 mg PO DAILY Discontinued amoxicillin-pot clavulanate [Augmentin] 250-62.5 mg/5 mL suspension for reconstitution 10 ml PO TID 10 Days Qty: 300 0RF ciprofloxacin [Cipro] 500 mg/5 mL suspension,microcapsule recon 500 mg PO BID Qty: 100 0RF doxazosin 4 mg Tablet 4 mg PO BID Referrals / Follow Up: Samuel Martinez MD [Med Staff - Active Staff] - See Referral Note (as scheduled on February 20) Cheikh Price DO [Med Staff - Active Staff] - Within 1 Month (for colonoscopy ) Alejandro Liu PA [Primary Care Provider] - In 1 Week Disposition Disposition (needs filled in before D/C Order can be placed): Home Health Service
--- NOTE | 2022-02-19 13:31 | PHA.DC.MC ---
Pharmacy Service has performed discharge medication reconciliation and counseling for this patient. 1. MIDODRINE 10MG PO TIDCM 2. PREDNISOLONE SOLUTION 20MG PO DAILY X 3 DAYS, THEN 15MG X 3 DAYS, THEN 10MG X 3DAYS, THEN 5MG X 3 DAYS The patient's discharge medication list was reviewed for discrepancies and discrepancies were resolved. Home Medications gabapentin 300 mg/6 mL (6 mL) oral solution 300 mg G-tube BID nerve pain 09/09/18 lactose-reduced food with fiber 0.06 gram-1.5 kcal/mL oral liquid 237 ml G-tube Q4H nutrition 09/09/18 levothyroxine 50 mcg tablet 50 mcg PO DAILY #30 tabs 08/22/21 finasteride 5 mg tablet 5 mg PO DAILY 02/11/22 midodrine 5 mg tablet 10 mg PO TIDCM 30 days #180 tabs 02/19/22 prednisolone sodium phosphate 5 mg base/5 mL (6.7 mg/5 mL) oral soln 20 mg (20 mL) G-tube BREAKFAST 10 days #200 mL 02/19/22 The patient was counseled on the following discharge medications and changes in medications for homegoing were reviewed. The Reason for Use, instructions for use, and potential side effects were reviewed for all new medications. The patient's questions regarding all of their medications were answered. The patient was able to verbally demonstrate an understanding of their discharge medications. Patient counseled by pharmacy district managerFrancesca.
[2022-02-19] MEDS: 0.9% Saline Lock 10 ML Syringe IV (14:17)
[2022-02-20 07:49] LABS: Pathologist Review Reviewed
== END 2022-02-19 16:06 | disposition home or self-care (01) | DRG 871 ==
LOC: ED 02:57 → PCU 04:35 → ICU 04:47 → PCU 02-17 12:06
PROVIDERS: Family Medicine; Internal Medicine; Internal Medicine Critical Care Medicine; Admitting Provider Internal Medicine; Emergency Provider Emergency Medicine; PCP Physician Assistant; Visit Provider Internal Medicine
DX: A41.9 Sepsis, unspecified organism (principal); R65.21 Severe sepsis with septic shock; J96.21 Acute and chronic respiratory failure with hypoxia; E43 Unspecified severe protein-calorie malnutrition; J18.9 Pneumonia, unspecified organism; C78.01 Secondary malignant neoplasm of right lung; C78.02 Secondary malignant neoplasm of left lung; E27.40 Unspecified adrenocortical insufficiency; N17.9 Acute kidney failure, unspecified; E87.20 Acidosis, unspecified; N30.00 Acute cystitis without hematuria; D63.1 Anemia in chronic kidney disease; C10.9 Malignant neoplasm of oropharynx, unspecified; N18.32 Chronic kidney disease, stage 3b; Z93.0 Tracheostomy status; Z93.1 Gastrostomy status; E03.9 Hypothyroidism, unspecified; F17.210 Nicotine dependence, cigarettes, uncomplicated; D50.9 Iron deficiency anemia, unspecified; Z80.0 Family history of malignant neoplasm of digestive organs; Z92.3 Personal history of irradiation; R53.81 Other malaise; G89.4 Chronic pain syndrome; N40.0 Benign prostatic hyperplasia without lower urinary tract symptoms; R13.10 Dysphagia, unspecified; R33.9 Retention of urine, unspecified
CPT/HCPCS: 31720; 36415; 36569; 71045; 74018; 80048; 80053; 80202; 81001; 82274; 82533; 82728; 83540; 83550; 83605; 83735; 84100; 84443; 85025; 85045; 85610; 85730; 87040; 87070; 87086; 87205; 87428; 87449; 87493; 87641; 92610; 93005; 94640; 94667; 94668; 97110; 97116; 97163; 97166; 97530; 97535; 97802; 97803; 99251; 99285; J7030; J7040; J7050; A4216; G0463; J2916

== ENCOUNTER 2022-02-21 10:44 | Emergency (ER) | payer MEDICARE, OTHER, SELFPAY ==
[2022-02-21 10:48] VITALS: BP 128/77; PULSE 63; RESP 14; TEMP 36.2; O2SAT 97; BMI 18.3
[2022-02-21 11:01] VITALS: O2SAT 96
--- NOTE | 2022-02-21 11:13 | VDUE_ITS ---
Reason For Study: Swelling Left Proximal Left jugular vein is spontaneous, widely patent, phasic, with no intraluminal echogenicity noted. Unable to visualize the entire Lt IJV due to trach/trach straps. Left subclavian vein is spontaneous, widely patent, phasic, with no intraluminal echogenicity noted. Left Arm Left axillary vein is spontaneous, patent, phasic, competent, compressible and demonstrates augmentation. Left brachial vein is compressible. Left cephalic vein is compressible. Left basilic vein is compressible. Left Lower Arm Left radial vein is compressible. Left ulnar vein is compressible. Patient Safety Prelim gievn to Dr. Guzman. VL/Venous Duplex US, Unilateral Interpretation Summary Deep veins of the left upper extremity are patent and compressible segmentally. There is no evidence of deep vein thrombosis. Left cephalic and basilic veins appear patent and compressible segmentally. Limited study due to tracheostomy Ordering Physician: Taqueria Guzman Referring Physician: Miles Liu Performed By: Stacey Graham, BELLA, RVT ???
[2022-02-21 11:32] VITALS: BP 127/60; PULSE 75; RESP 18; O2SAT 96
--- NOTE | 2022-02-21 12:12 | EDS_ITS ---
HPI History of Present Illness Chief Complaint: Complaint Informant: patient Narrative Narrative: 76-year-old male presenting to the emergency department with chief complaint of urinary retention and left hand swelling. Patient was recently in the hospital and had a catheter placed after port placement for urinary retention. He was removed yesterday and has been unable to urinate since. Patient has a history of throat and lung cancer and currently has a tracheostomy and PEG. notes that when they left the hospital the left arm was a little bit swollen but not as bad as it is now when she also notes some swelling to the right arm. He had an IV in the left arm and a PICC placement in the right arm. No reported fevers. Were not on a blood thinner. There is no history of chest pain shortness of breath. [facility] Medical History Abnormal sputum amount Acute nontraumatic kidney injury Adverse effect of antineoplastic and immunosuppressive drugs Agranulocytosis secondary to cancer chemotherapy Antineoplastic chemotherapy induced anemia Diarrhea Dietary restriction Dysphagia Fever Former smoker History of renal disease Hypermagnesemia Long-term use of high-risk medication Malodorous urine Neuropathy Oral candidiasis pegtube Pneumonia port placement Primary malignant neoplasm of hypopharynx RUQ abdominal pain Secondary malignant neoplasm of lung Shortness of breath on exertion Tachycardia Thyroid disease tracheotomy and laryngeal biopsy Urinary tract infection Wears glasses Wheezing Home Medications gabapentin 300 mg/6 mL (6 mL) oral solution 300 mg G-tube BID nerve pain 09/09/18 [History Last Taken Unknown] lactose-reduced food with fiber 0.06 gram-1.5 kcal/mL oral liquid 237 ml G-tube Q4H nutrition 09/09/18 [History Last Taken Unknown] levothyroxine 50 mcg tablet 50 mcg PO DAILY #30 tabs 08/22/21 [Rx Last Taken Unknown] finasteride 5 mg tablet 5 mg PO DAILY 02/11/22 [History Last Taken Unknown] midodrine 5 mg tablet 10 mg PO TIDCM 30 days #180 tabs 02/19/22 [Rx Last Taken Unknown] prednisolone sodium phosphate 5 mg base/5 mL (6.7 mg/5 mL) oral soln 20 mg (20 mL) G-tube BREAKFAST 10 days #200 mL 02/19/22 [Rx Last Taken Unknown] Allergy/AdvReac Type Severity Reaction Status Date / Time venom-wasp Allergy Anaphylaxis Verified 02/21/22 10:48 pseudoephedrine HCl AdvReac Severe Unknown Verified 02/21/22 10:48 [From [facility]] Antihistamines - Alkylamine AdvReac Mild Other Verified 02/21/22 10:48 Family History Father Colon cancer Hypertension Mother Hypertension Surgical History History of surgery Hx of tonsillectomy S/P percutaneous endoscopic gastrostomy (PEG) tube placement Social History Smoking Status: Current some day smoker tobacco type: cigarettes alcohol intake: never substance use type: does not use ROS ROS ED Constitutional Constitutional ED: Reports weight loss; Denies chills or fever(s) Eyes Eyes: Denies change in vision or diplopia ENT ENT ED: Denies ear pain, rhinorrhea or sore throat Cardiovascular Cardiovascular: Denies chest pain, orthopnea, palpitations or racing heartbeat Respiratory/Chest Respiratory/Chest: Denies cough, dyspnea or orthopnea Gastrointestinal Gastrointestinal: Denies abdominal pain, diarrhea, nausea or vomiting Genitourinary Genitourinary ED: Reports other Details: Urinary retention ; Denies dysuria, hematuria or urinary frequency Musculoskeletal Musculoskeletal: Reports other Details: Swelling of the bilateral forearms and hands left greater than right ; Denies arthralgias or myalgias Integumentary Denies abscess or rash Neurologic Neurologic: Denies headache(s) or weakness Psychiatric Psychiatric: Denies anxiety, depression, suicidal ideation or suicidal thoughts Endocrine Endocrinology: Denies polydipsia, polyphagia or polyuria Allergic/Immunologic Allergic/Immunologic ED: Denies mouth swelling, tongue swelling or urticaria EXAM Physical Exam Const Vital Signs: 02/21/22 10:48 02/21/22 11:01 02/21/22 11:32 Temperature 97.1 F L Temperature Source Temporal Pulse Rate 63 75 Respiratory Rate 14 18 Blood Pressure 128/77 H 127/60 H Blood Pressure Mean 94 82 Pulse Ox 97 96 96 Oxygen Delivery Method Nasal Cannula Trach Collar Trach Collar Oxygen Flow Rate (L/min) 6 6 6 Fraction of Inspired Oxygen (FIO2) 31 02/21/22 12:38 02/21/22 13:28 02/21/22 14:37 Temperature Temperature Source Pulse Rate 64 63 61 Respiratory Rate 18 18 18 Blood Pressure 104/64 94/65 111/67 Blood Pressure Mean 77 74 Pulse Ox 98 98 97 Oxygen Delivery Method Room Air Oxygen Flow Rate (L/min) 6 Fraction of Inspired Oxygen (FIO2) Positive well nourished and well developed General Appearance ED: well developed HEENT Reports normocephalic, head/scalp atraumatic and moist mucous membranes Eyes PERRL and EOMs intact bilaterally Neck no lymphadenopathy, supple and no JVD Resp normal respiratory effort and clear to auscultation bilaterally Cardio regular rate, regular rhythm and no murmurs GI GI Narrative: Suprapubic tenderness and bladder distention Palpation: soft; Negative for guarding or rebound tenderness present Back/Spine no CVA tenderness and normal ROM Extremity Extremity Narrative: There is swelling of the bilateral hands left greater than right. There are no palpable cords. There is no cerulea Rashel's or albicans. Neurovascularly appears intact. Good capillary refill of less than 3 seconds. Neuro oriented x3 and CN's II-XII intact bilaterally Sensorium / Orientation: alert Motor Exam: strength 5/5 throughout Psych mental status grossly normal Mood & Affect: Negative for depressed or tearful Skin no rashes or lesions noted and no wounds MDM MDM MDM Narrative Medical decision making narrative: Maxwell catheter is placed with approximately 1200 cc of urine removed. Duplex ultrasound of the left arm is negative for DVT. Repeat examination finds him to be resting comfortably. His swelling in his arms are actually improved. At this point the patient will be discharged home with urologic follow-up. Return if worsening or concerns Radiography Diagnostic Testing: Clinical Impression(s) from Imaging Studies Venous Doppler Study 02/21/22 11:13 Interpretation Summary Deep veins of the left upper extremity are patent and compressible segmentally. There is no evidence of deep vein thrombosis. Left cephalic and basilic veins appear patent and compressible segmentally. Limited study due to tracheostomy Ordering Physician: Taqueria Guzman Referring Physician: Miles Liu Performed By: Stacey Graham, BELLA, RVT ??? Discharge Plan Triage Chief Complaint: Complaint ED Provider: Taqueria Guzman Dx/Rx/DC Orders Clinical Impression: Laryngeal cancer, Cancer, metastatic to lung, Acute urinary retention, Arm swelling Instructions: ED Urinary Retention, Male Prescriptions: No Action levothyroxine 50 mcg tablet 50 mcg PO DAILY Qty: 30 2RF gabapentin 300 MG/6 ML solution 300 mg GT BID lactose-reduced food with fibr 237 ML liquid 237 ml GT Q4H finasteride 5 mg Tablet 5 mg PO DAILY midodrine 5 mg Tablet 10 mg PO TIDCM 30 Days Qty: 180 0RF prednisolone sodium phosphate 5 mg base/5 mL (6.7 mg/5 mL) Solution 20 mg G-tube BREAKFAST 10 Days Qty: 200 0RF Rx Instructions: 20 mg daily for 3 days, 15 mg daily for 3 days, 10 mg daily for 3 days, 5 mg daily for 3 days and stop Primary Care Provider: Alejandro Liu Referrals: Samuel Martinez MD [Med Staff - Active Staff] - 5-7 Days Alejandro Liu PA [Primary Care Provider] - Disposition Disposition: Home, Self Care Discharge Date/Time: 02/21/22 14:59
[2022-02-21 12:38] VITALS: BP 104/64; PULSE 64; RESP 18; O2SAT 98
[2022-02-21 13:28] VITALS: BP 94/65; PULSE 63; RESP 18; O2SAT 98
[2022-02-21 14:37] VITALS: BP 111/67; PULSE 61; RESP 18; O2SAT 97
== END 2022-02-21 14:59 | disposition home or self-care (01) ==
PROVIDERS: Emergency Provider Emergency Medicine; PCP Physician Assistant; Visit Provider Emergency Medicine
DX: R33.9 Retention of urine, unspecified (principal); C78.00 Secondary malignant neoplasm of unspecified lung; Z93.0 Tracheostomy status; C32.9 Malignant neoplasm of larynx, unspecified; M79.89 Other specified soft tissue disorders; Z80.0 Family history of malignant neoplasm of digestive organs
CPT/HCPCS: 51702; 93971; 99283

== ENCOUNTER 2022-03-05 12:18 | Emergency (ER) | payer MEDICARE, OTHER, SELFPAY ==
[2022-03-05] VITALS (7 sets, daily range): BP systolic 100–108; BP diastolic 63–76; PULSE 77–107; RESP 14–25; TEMP 37.7–38; O2SAT 93–99
--- NOTE | 2022-03-05 13:06 | EDS_ITS ---
HPI History of Present Illness Chief Complaint: Fever Informant: patient and spouse/S.O. Narrative Narrative: Patient and spouse both give history. This patient has a history of lung and throat cancer. He is treated by Dr. Max. He was in the hospital about 2 weeks ago for both pulmonary and urinary infection. He has had catheters in and out. He currently has a urinary catheter in. He has cystoscopy recently with Dr. Martinez. Patient has been going to infusion center to get hydration. He was there today. They noticed that his temperature was slightly elevated so they sent him in here for a chest x-ray. Patient states he had a little bit of chills last night. However, he is not coughing. He states he always has dyspnea but is not different. He is on a trach collar all the time. He states he does not feel any different today than he did yesterday or a week ago. He does not feel ill. He states he would not of come in. All his nutrition is also through tube feeds. He has no nausea vomiting with that. He has not been having notable diarrhea. No skin changes noted. No pain at his med port. [facility] Medical History Abnormal sputum amount Acute nontraumatic kidney injury Adverse effect of antineoplastic and immunosuppressive drugs Agranulocytosis secondary to cancer chemotherapy Antineoplastic chemotherapy induced anemia Diarrhea Dietary restriction Dysphagia Fever Former smoker History of renal disease Hypermagnesemia Long-term use of high-risk medication Malodorous urine Neuropathy Oral candidiasis pegtube Pneumonia port placement Primary malignant neoplasm of hypopharynx RUQ abdominal pain Secondary malignant neoplasm of lung Shortness of breath on exertion Tachycardia Thyroid disease tracheotomy and laryngeal biopsy Urinary tract infection Wears glasses Wheezing Home Medications lactose-reduced food with fiber 0.06 gram-1.5 kcal/mL oral liquid 237 ml G-tube Q4H nutrition 09/09/18 [History Last Taken 03/05/22 08:00] levothyroxine 50 mcg tablet 50 mcg PO DAILY #30 tabs 08/22/21 [Rx Last Taken 03/05/22 08:00] finasteride 5 mg tablet 5 mg PO DAILY 02/11/22 [History Last Taken 03/05/22 08:00] midodrine 5 mg tablet 10 mg PO TIDCM 30 days #180 tabs 02/19/22 [Rx Last Taken 03/05/22 08:00] gabapentin 300 mg/6 mL (6 mL) oral solution 300 mg (6 mL) G-tube BID nerve pain #240 mL 02/27/22 [Rx Last Taken 03/05/22 08:00] potassium, sodium phosphates 280 mg-160 mg-250 mg oral powder packet 1 packet PO ONCE #100 ea 02/27/22 [Rx Last Taken 03/05/22 08:00] levofloxacin 500 mg tablet 500 mg PO DAILY #7 tabs 03/05/22 [Rx Last Taken Unknown] Allergy/AdvReac Type Severity Reaction Status Date / Time venom-wasp Allergy Anaphylaxis Verified 03/05/22 13:08 pseudoephedrine HCl AdvReac Severe Unknown Verified 03/05/22 13:08 [From Sudafed] Antihistamines - Alkylamine AdvReac Mild Other Verified 03/05/22 13:08 Family History Father Colon cancer Hypertension Mother Hypertension Surgical History History of surgery Hx of tonsillectomy S/P percutaneous endoscopic gastrostomy (PEG) tube placement Social History Smoking Status: Former smoker quit date: 04/08/17 pack-years: 55 alcohol intake: never substance use type: does not use ROS ROS ED Constitutional Constitutional ED: Reports chills and subjective ENT ENT ED: Denies rhinorrhea or sore throat Cardiovascular Cardiovascular: Denies chest pain or palpitations Respiratory/Chest Respiratory/Chest: Reports dyspnea and other Details: He has chronic and unchanged ; Denies cough Gastrointestinal Gastrointestinal: Denies abdominal pain, diarrhea, nausea or vomiting Genitourinary Genitourinary ED: Reports other Details: Urine has been clear in the [place]. has not noticed any change. Musculoskeletal Musculoskeletal: Denies myalgias Integumentary Denies rash Neurologic Neurologic: Denies headache(s) Endocrine Endocrinology: Denies polydipsia or polyuria Hematologic/Lymphatic Hematologic/Lymphatic: Denies easy bleeding or easy bruising Allergic/Immunologic Allergic/Immunologic ED: Denies urticaria EXAM Physical Exam Const Vital Signs: 03/05/22 12:19 03/05/22 12:40 03/05/22 13:18 Temperature 100.3 F H 100.3 F H Temperature Source Temporal Temporal Pulse Rate 107 H 107 H Respiratory Rate 20 H 20 H Respiratory Effort Normal Non-Labored Respiratory Pattern Normal Blood Pressure 104/67 104/67 Blood Pressure Mean 79 79 Pulse Ox 93 93 Oxygen Delivery Method Trach Collar Trach Collar Oxygen Flow Rate (L/min) 2 2 03/05/22 13:19 03/05/22 13:22 03/05/22 14:18 Temperature 99.9 F H 99.9 F H 100.4 F H Temperature Source Temporal Temporal Temporal Pulse Rate 83 84 80 Respiratory Rate 14 14 25 H Respiratory Effort Respiratory Pattern Blood Pressure 105/63 105/63 100/76 Blood Pressure Mean 77 77 84 Pulse Ox 93 97 99 Oxygen Delivery Method Trach Collar Trach Collar Trach Collar Oxygen Flow Rate (L/min) 2 2 2 03/05/22 15:00 Temperature 100.2 F H Temperature Source Temporal Pulse Rate 77 Respiratory Rate 18 Respiratory Effort Respiratory Pattern Blood Pressure 108/67 Blood Pressure Mean 80 Pulse Ox 97 Oxygen Delivery Method Trach Collar Oxygen Flow Rate (L/min) 2 Positive well nourished and well developed General Appearance ED: well developed and NAD HEENT Negative for trauma Eyes General Eye ED: Negative for scleral icterus Neck no lymphadenopathy Neck Narrative: Trach in place. Chest Wall Chest Narrative: Med port in the left upper chest that does not look infected or inflamed. No tenderness or erythema. Resp normal respiratory effort Auscultation: Negative for rhonchi or wheezes Cardio regular rate and regular rhythm GI normal to inspection, nondistended, normoactive bowel sounds, non-tender and non-distended Palpation: soft Back/Spine no CVA tenderness Neuro Neuro Narrative: Patient awake alert and appropriate. He is nonverbal due to his surgeries and trach but he is very clear able to write out answers and interact quite easily. Sensorium / Orientation: alert Psych mental status grossly normal Skin no rashes or lesions noted MDM MDM MDM Narrative Medical decision making narrative: Blood work showed normal white count. He has some mild anemia. Electrolytes show no marked abnormalities. LFTs look good. Lactate is negative. Chest x- ray shows improvement. He is not hypoxic. His urine does show some findings that are consistent with UTI. I looked back on prior cultures. He has mixed chaitanya from the first of this month but negative from the sixth. With him having fever and immunosuppression, I will initiate therapy with Levaquin at this time. If his cultures come back negative it can likely be stopped. Viral studies done are negative. Lab Data Attestation: I reviewed the patient's lab results. Labs: Laboratory Results - last 24 hr 03/05/22 03/05/22 03/05/22 13:10 13:10 13:10 WBC 4.8 RBC 3.08 L Hgb 9.6 L Hct 32.0 L MCV 103.9 H MCH 31.2 MCHC 30.0 L RDW Std Deviation 65.1 H RDW Coeff of Oz 17.5 H Plt Count 129 L MPV 11.3 Immature Gran % (Auto) 0.400 Neut % (Auto) 70.7 H Lymph % (Auto) 20.7 [place] % (Auto) 6.8 Eos % (Auto) 1.2 Baso % (Auto) 0.2 Absolute Neuts (auto) 3.4 Absolute Lymphs (auto) 1.00 Nucleated RBC % 0 Anisocytosis 1+ Sodium 138 Potassium 4.2 Chloride 107 Carbon Dioxide 27.0 Anion Gap 4 L BUN 32 H Creatinine 1.26 Estim Creat Clear Calc 46.20 Est GFR (MDRD) Af Amer 72 Est GFR (MDRD) Non-Af 59 L BUN/Creatinine Ratio 25.4 H Glucose 84 Lactic Acid 0.4 Calcium 8.5 Total Bilirubin 0.50 AST 17 ALT 22 Alkaline Phosphatase 48 Total Protein 6.4 Albumin 2.2 L Globulin 4.2 Albumin/Globulin Ratio 0.5 L Urine Color Urine Clarity Urine pH Ur Specific Shock Urine Protein Urine Glucose (UA) Urine Ketones Urine Occult Blood Urine Nitrite Urine Bilirubin Urine Urobilinogen Ur Leukocyte Esterase Urine RBC Urine WBC Ur Squamous Epith Cells Urine Bacteria Urine Mucus 03/05/22 14:16 WBC RBC Hgb Hct MCV MCH MCHC RDW Std Deviation RDW Coeff of Oz Plt Count MPV Immature Gran % (Auto) Neut % (Auto) Lymph % (Auto) [place] % (Auto) Eos % (Auto) Baso % (Auto) Absolute Neuts (auto) Absolute Lymphs (auto) Nucleated RBC % Anisocytosis Sodium Potassium Chloride Carbon Dioxide Anion Gap BUN Creatinine Estim Creat Clear Calc Est GFR (MDRD) Af Amer Est GFR (MDRD) Non-Af BUN/Creatinine Ratio Glucose Lactic Acid Calcium Total Bilirubin AST ALT Alkaline Phosphatase Total Protein Albumin Globulin Albumin/Globulin Ratio Urine Color Yellow Urine Clarity Sl. Cloudy Urine pH 8.0 Ur Specific Shock 1.010 Urine Protein 30 H Urine Glucose (UA) Normal Urine Ketones Negative Urine Occult Blood 25 H Urine Nitrite Positive H Urine Bilirubin Negative Urine Urobilinogen Normal Ur Leukocyte Esterase 500 H Urine RBC 0-5 SEEN Urine WBC 25-50 SEEN Ur Squamous Epith Cells 0-5 SEEN Urine Bacteria 2+ Urine Mucus 0 SEEN Radiography Diagnostic Testing: Clinical Impression(s) from Imaging Studies Chest X-Ray 03/05/22 13:24 IMPRESSION: Persistent right basilar pulmonary infiltrates worse on the left side although there has been mild improvement as compared to prior examination. Electronically Signed: Joshua Schneider MD at 13:44 EST , Chest x-ray shows improvement from prior Discharge Plan Triage Chief Complaint: Fever ED Provider: Jordin Simon Dx/Rx/DC Orders Clinical Impression: UTI (urinary tract infection), Fever Instructions: Urinary Tract Infections in Men Prescriptions: New levofloxacin 500 mg tablet 500 mg PO DAILY Qty: 7 0RF Rx Instructions: Please substitute liquid if able. 250 mg per 10 mL, 20 mL p.o. orally daily for 7 days. Due to computer systems, I am unable to put in the liquid medication No Action levothyroxine 50 mcg tablet 50 mcg PO DAILY Qty: 30 2RF potassium, sodium phosphates 280-160-250 mg powder in packet 1 packet PO ONCE Qty: 100 0RF gabapentin 300 mg/6 mL (6 mL) solution 300 mg GT BID Qty: 240 5RF lactose-reduced food with fibr 237 ML liquid 237 ml GT Q4H finasteride 5 mg Tablet 5 mg PO DAILY midodrine 5 mg Tablet 10 mg PO TIDCM 30 Days Qty: 180 0RF Primary Care Provider: Alejandro Liu Referrals: Alejandro Liu PA [Primary Care Provider] - Disposition Disposition: Home, Self Care
--- NOTE | 2022-03-05 13:24 | RAD_ITS ---
STUDY: X-RAY CHEST REASON FOR EXAM: Male, 76 years old. PT WITH THROAT/LUNG CA C/O FEVER SINCE LAST NIGHT TECHNIQUE: Single AP portable view of the chest. COMPARISON: Comparison is made with prior study dated 02/12/2022. FINDINGS: A tracheostomy tube is in situ. The tip is at 6.3 cm proximal to the elva. A left-sided portacatheter seen with the tip in the right atrium. EKG electrodes are seen. Persistent left lower lobe infiltrate with blunting of the left costophrenic angle. Mild persistent increased markings at the right lung base although this has improved. Blunting of the right costophrenic angle. Normal size heart. Normal mediastinum and anival. Normal visualized pulmonary arteries. Normal visualized aortic arch and descending thoracic aorta. Normal visualized thoracic spine. There is degenerative osteoarthritis of the bilateral shoulders. There is no demonstrated abnormality of the visualized soft tissue structures of the upper abdomen. RAD/Chest 1 View (Portable) IMPRESSION: Persistent right basilar pulmonary infiltrates worse on the left side although there has been mild improvement as compared to prior examination. Electronically Signed: Joshua Schneider MD at 13:44 EST ,
[2022-03-05 13:28] LABS: Absolute Neutrophil Count 3.4 X10^3/uL (2.0-7.7); Basophil# 0.01 X10^3/uL; Basophil% 0.2 % (0-1); Eosinophil# 0.06 X10^3/uL; Eosinophils% 1.2 % (0-5); Hemoglobin 9.6 g/dL (13.0-16.5); Lymphocyte % 20.7 % (19-41); Mean Corpuscular Hgb 31.2 pg (27.0-32.0); Mean Corpuscular Volume 103.9 fL (80-94); Mean Platelet Vol. 11.3 fl (6.2-12.0); Monocyte# 0.33 X10^3/uL; Monocyte% 6.8 % (0-10); NRBC Flagged by Analyzer 0 % (0-5); Neutrophil # 3.41 X10^3/uL (2.7-7.7); Neutrophil % 70.7 % (47-70); POSITIVE MORPHOLOGY YES; Platelet Count 129 K/mm3 (150-450); RBC Distribution Width CV 17.5 % (11.6-14.6); RBC Distribution Width SD 65.1 fl (35.1-43.9); Red Blood Count 3.08 M/mm3 (4.6-6.2); White Blood Count 4.8 K/mm3 (4.4-11.0)
[2022-03-05 13:43] LABS: ALB/GLOB Ratio 0.5 RATIO (0.9-2.4); AST(SGOT) 17 U/L (15-37); Alanine Aminotransfer ALT/SGPT 22 U/L (16-61); Albumin, Serum 2.2 g/dL (3.2-5.0); Alkaline Phosphatase 48 U/L (45-117); Anion Gap 4 (5-15); BUN 32 mg/dL (7-18); BUN/Creat Ratio 25.4 RATIO (10-20); Calcium,Total 8.5 mg/dL (8.5-10.1); Chloride 107 mmol/L (98-107); Creatinine, Serum 1.26 mg/dL (0.70-1.30); EST Glomerular Filtration Rate 59 mL/min (>60); Est Glom Filt Rate - Afr Amer 72 mL/min (>60); Globulin 4.2 g/dL (2.2-4.2); Glucose 84 mg/dL (74-106); Potassium 4.2 mmol/L (3.5-5.1); Protein, Total 6.4 g/dL (6.4-8.2); Sodium Level 138 mmol/L (136-145)
[2022-03-05 13:54] LABS: Lactic Acid 0.4 mmol/L (0.4-1.9)
[2022-03-05 14:03] LABS: Differential Indicated SCAN CRITERIA MET
[2022-03-05 14:05] LABS: Anisocytosis 1+
[2022-03-05 14:22] LABS: Mucous, Urine 0 SEEN /hpf (<or=2+)
[2022-03-05 14:37] LABS: Color, Urine Yellow (Yellow); Glucose, Dipstick Normal (Normal); Ketone-Dipstick Negative (Negative); Leukocyte Esterase-Dipstick 500 /ul (Negative); Nitrite-Dipstick Positive (Negative); Occult Blood-Urine 25 /ul (Negative); Protein-Dipstick 30 mg/dl (Negative); Urine Bilirubin Dipstick Negative (Negative); Urine Clarity Sl. Cloudy (Clear); Urine Urobilinogen Normal (Normal)
[2022-03-05 14:45] LABS: Bacteria 2+ /hpf (None Seen); Red Blood Cells-Urine 0-5 SEEN /hpf (0-5); Squamous Epithelial Cells - UA 0-5 SEEN /hpf (0-5); White Blood Cells 25-50 SEEN /hpf (0-5)
== END 2022-03-05 16:02 | disposition home or self-care (01) ==
PROVIDERS: Emergency Provider Emergency Medicine; PCP Physician Assistant; Visit Provider Emergency Medicine
DX: N39.0 Urinary tract infection, site not specified (principal); R50.9 Fever, unspecified; Z79.899 Other long term (current) drug therapy; Z87.891 Personal history of nicotine dependence
CPT/HCPCS: 71045; 80053; 81001; 83605; 85025; 87040; 87077; 87086; 87088; 87186; 87428; 96360; 96361; 99282; J7030

== ENCOUNTER → 2022-03-06 | Outpatient (CLI) | payer MEDICARE, OTHER, SELFPAY ==
--- NOTE | 2022-03-06 10:55 | VDUE_ITS ---
Reason For Study: LUE swelling Right Proximal Left Proximal Right subclavian vein is spontaneous, widely Left jugular vein is spontaneous, widely patent, phasic, with no intraluminal patent, phasic, with no intraluminal echogenicity noted. echogenicity noted. Able to visualize/assess most of Jugular vein, even with trach straps. Left subclavian vein is spontaneous, widely patent, phasic, with no intraluminal echogenicity noted. Left Arm Left axillary vein is spontaneous, patent, phasic, competent, compressible and demonstrates augmentation. Left brachial vein is compressible. Left cephalic vein is compressible. Left basilic vein is compressible. Left Lower Arm Left radial vein is compressible. Left ulnar vein is compressible. VL/Venous Duplex US, Unilateral Interpretation Summary No evidence for acute deep venous thrombosis[left] upper extremity with patent and compressible cephalic and basilic veins. Normal flow patterns right subclavian vein Ordering Physician: Jodi Busch Referring Physician: Miles Liu Performed By: Caity Garcia, BELLA, RVT ???
--- NOTE | 2022-03-06 11:30 | RAD_ITS ---
STUDY: X-RAY - ABDOMEN/PELVIS REASON FOR EXAM: Male, 76 years old. Constipation. No bowel movement for 7 days. TECHNIQUE: Two AP supine views of the abdomen and pelvis. COMPARISON: February 12, 2022. FINDINGS: Normal visualized lung bases. There is a catheter in the superior vena cava. The heart is normal in size. Air and feces is seen throughout nondistended colon. Distal small bowel dilatation. There is no demonstrated free abdominal air. The visualized liver, spleen and kidneys are grossly normal in size and morphology. Again seen is a small calcification thought to overlie the upper pole of the right kidney. Normal soft tissue structures. Normal visualized osseous structures. RAD/Abdomen Single View IMPRESSION: No acute intra-abdominal process. Electronically Signed: Gómez London DO at 18:10 EST ,
== END | disposition home or self-care (01) ==
LOC: CVS 10:55
PROVIDERS: PCP Physician Assistant; Referring Provider Nurse Practitioner Family; Visit Provider Nurse Practitioner Family
DX: K59.00 Constipation, unspecified (principal); M79.89 Other specified soft tissue disorders
CPT/HCPCS: 74018; 93971; 96360; 96361; J7030; A4216

== ENCOUNTER 2022-04-02 10:38 | Inpatient (IN) | payer MEDICARE, OTHER, SELFPAY ==
[2022-04-02] VITALS (11 sets, daily range): BP systolic 79–114; BP diastolic 57–82; PULSE 58–147; RESP 14–31; TEMP 36.1–37.6; O2SAT 88–100; BMI 17.9; BMI 17.3
--- NOTE | 2022-04-02 10:59 | RAD_ITS ---
STUDY: X-RAY CHEST REASON FOR EXAM: Male, 76 years old. Dyspnea, hemoptysis, history of lung cancer TECHNIQUE: Single AP portable view of the chest. COMPARISON: March 05, 2022 chest x-ray FINDINGS: There is a tracheostomy tube demonstrated. There is a left-sided Port-A-Cath with the tip in the right atrium. Lungs are hyperinflated. There is a focal opacity in the right lower lobe greater than prior study. There is a focal area of opacity in the left lung base. Slightly improved since prior study. There is no demonstrated pleural abnormality. There is borderline cardiomegaly. Normal mediastinum and anival. Normal visualized pulmonary arteries. Normal visualized aortic arch and descending thoracic aorta. There are diffuse degenerative changes of the visualized thoracic spine. Normal visualized ribs, clavicles, and shoulders. There is no demonstrated abnormality of the visualized soft tissue structures of the upper abdomen. RAD/Chest 1 View (Portable) IMPRESSION: Improved left lower lobe infiltrate. Slightly worse right lower lobe infiltrate. Consider waxing and waning pneumonia, Compared to prior study March 05, 2022 Given the clinical history recommend consideration for follow-up CT scan of the chest when appropriate. Stable Port-A-Cath. Stable Tracheostomy tube. Electronically Signed: Alyssia Rodriguez MD at 11:52 EST ,
--- NOTE | 2022-04-02 11:12 | ED.VIS.DYS ---
HPI History of Present Illness Chief Complaint: Shortness of Breath Detail of Chief Complaint: Shortness of breath, hemoptysis and low blood pressure Informant: patient and spouse/S.O. Onset/Context/Timing Onset: Days Context: sudden Timing: Intermittent Quality: Positive for Dyspnea on exertion and Wheezing; Negative for Orthopnea or PND Current Severity: Mild Maximum Severity: Moderate Worsened by: Exertion and Coughing Relieved by: Nothing Associated Symptoms cough, sore throat, chills, green sputum and other; Negative for rhinorrhea, post nasal drip, ear pain, fever, subjective, sweats, clear sputum, white sputum or yellow sputum Chest Pain: Positive for Intermittent and Sharp (Right lower lobe anterior); Negative for Pleuritic, Pressure or Tightness Narrative Narrative: Patient is a 76-year-old male 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 intake. Patient was diagnosed with stage III cancer according to . He is on oxygen at home. Apparently his pulse ox was low according to . There is been no documented fever. He denies rhinorrhea, earache or drainage from his ears. He denies nausea or vomiting. He does have an indwelling Maxwell. He was admitted for urosepsis recently according to . She states his Maxwell should have been changed. He is not scheduled to have a change because of the holiday until April 16. PE Risk Factors: Positive for Cancer and Recent immobilization; Negative for OCP + Smoking + > 35, Prior DVT or PE, Recent surgery or Recent travel Prior similar symptoms: Yes Recent Illness/Hospitalization: Yes [facility] Medical History Abnormal sputum amount Acute nontraumatic kidney injury Adverse effect of antineoplastic and immunosuppressive drugs Agranulocytosis secondary to cancer chemotherapy Antineoplastic chemotherapy induced anemia Constipation Diarrhea Dietary restriction Dysphagia Fever Former smoker History of renal disease Hypermagnesemia Left upper extremity swelling Long-term use of high-risk medication Malodorous urine Neuropathy Oral candidiasis pegtube Pneumonia port placement Primary malignant neoplasm of hypopharynx RUQ abdominal pain Secondary malignant neoplasm of lung Shortness of breath on exertion Tachycardia Thyroid disease tracheotomy and laryngeal biopsy Urinary tract infection Wears glasses Wheezing Home Medications lactose-reduced food with fiber 0.06 gram-1.5 kcal/mL oral liquid 237 ml G-tube Q4H nutrition 09/09/18 [History Last Taken 03/05/22 08:00] levothyroxine 50 mcg tablet 50 mcg PO DAILY #30 tabs 08/22/21 [Rx Last Taken 03/05/22 08:00] finasteride 5 mg tablet 5 mg PO DAILY 02/11/22 [History Last Taken 03/05/22 08:00] gabapentin 300 mg/6 mL (6 mL) oral solution 300 mg (6 mL) G-tube BID nerve pain #240 mL 02/27/22 [Rx Last Taken 03/05/22 08:00] potassium, sodium phosphates 280 mg-160 mg-250 mg oral powder packet 1 packet PO ONCE #100 ea 02/27/22 [Rx Last Taken 03/05/22 08:00] Allergy/AdvReac Type Severity Reaction Status Date / Time venom-wasp Allergy Anaphylaxis Verified 04/02/22 10:44 pseudoephedrine HCl AdvReac Severe Unknown Verified 04/02/22 10:44 [From Sudafed] Antihistamines - Alkylamine AdvReac Mild Other Verified 04/02/22 10:44 Family History Father Colon cancer Hypertension Mother Hypertension Surgical History History of surgery Hx of tonsillectomy S/P percutaneous endoscopic gastrostomy (PEG) tube placement Social History (Updated 04/02/22 @ 11:[address] Twin Torres MD) household members: spouse Smoking Status: Former smoker quit date: 04/08/17 pack-years: 55 alcohol intake: never substance use type: does not use ROS ROS ED Constitutional Constitutional ED: Reports weight loss; Denies chills, fever(s) or sweats Eyes Eyes: Denies blurry vision, change in vision or diplopia ENT ENT ED: Denies ear pain, rhinorrhea or sore throat Cardiovascular Cardiovascular: Denies chest pain, orthopnea, palpitations, paroxysmal nocturnal dyspnea or racing heartbeat Respiratory/Chest Respiratory/Chest: Reports cough, dyspnea, dyspnea on exertion and sputum; Denies orthopnea or paroxysmal nocturnal dyspnea Gastrointestinal Gastrointestinal: Reports diarrhea; Denies abdominal pain, constipation, nausea or vomiting Genitourinary Genitourinary ED: Denies dysuria, hematuria or urinary frequency Musculoskeletal Musculoskeletal: Denies arthralgias or myalgias Integumentary Denies abscess or Abrasions Neurologic Neurologic: Reports weakness; Denies headache(s) or paresthesias Psychiatric Psychiatric: Denies anxiety Endocrine Endocrinology: Denies cold intolerance or heat intolerance Hematologic/Lymphatic Hematologic/Lymphatic: Denies easy bleeding EXAM Physical Exam Const Vital Signs: 04/02/22 10:39 04/02/22 10:38 04/02/22 10:41 Temperature 99.7 F H 99.7 F H Temperature Source Oral Oral Pulse Rate 147 H 147 H Respiratory Rate 31 H 31 H Respiratory Effort Respiratory Depth Respiratory Pattern Blood Pressure 80/59 L 80/59 L Blood Pressure Mean 66 66 Pulse Ox 88 93 93 Oxygen Delivery Method Trach Collar Trach Collar Trach Collar Oxygen Flow Rate (L/min) 2 4 4 04/02/22 11:38 04/02/22 10:59 04/02/22 11:46 Temperature 97.0 F L Temperature Source Temporal Pulse Rate 131 H Respiratory Rate 20 H Respiratory Effort Short of Breath Respiratory Depth Shallow Respiratory Pattern Tachypnea Blood Pressure 79/57 L Blood Pressure Mean 64 Pulse Ox 93 Oxygen Delivery Method Venturi Mask Room Air Oxygen Flow Rate (L/min) 04/02/22 12:49 Temperature Temperature Source Pulse Rate 90 Respiratory Rate 20 H Respiratory Effort Respiratory Depth Respiratory Pattern Blood Pressure 100/71 Blood Pressure Mean 80 Pulse Ox 97 Oxygen Delivery Method Venturi Mask Oxygen Flow Rate (L/min) Positive well nourished, well developed, cachectic and unkempt; Negative for obese or contractures General Appearance ED: unkempt, well developed, cachectic and pallor; Negative for contractures or NAD Nutritional Appearance: cachectic; Negative for obese HEENT Reports dry mucous membranes HEENT Narrative: Slight erythema the posterior pharynx. Uvula midline. No exudate noted. atraumatic; Negative for tenderness Mouth ED: Yes dry mucous membranes Mouth: dry mucous membranes Eyes PERRL and EOMs intact bilaterally General Eye ED: Yes pale conjunctiva; Negative for scleral icterus Neck no lymphadenopathy, supple and no meningeal signs Neck Narrative: Tracheostomy noted. Patient has blood noted from his tracheostomy. Resp normal respiratory effort and No clear to auscultation bilaterally Effort and Inspection: Negative for pain with movement Auscultation: rales right lower, wheezes expiratory wheezes and scattered wheezes and diminished lung sounds Cardio regular rhythm, S1 normal heart sound, S2 normal heart sound and no murmurs Rate: tachycardic GI non-tender, non-distended and no masses Narrative: Patient has an indwelling Maxwell. Back/Spine no CVA tenderness and normal to inspection Extremity normal to inspection General Extremety ED: Negative for edema or tenderness General Extremity: Negative for edema Neuro oriented x3, CN's II-XII intact bilaterally and no sensory deficits noted Walt Coma Scale: document GCS findings Spontaneous Obeys Commands Oriented 15 Sensorium / Orientation: alert Psych Appearance: unkempt Mood & Affect: depressed Skin no wounds and No skin turgor normal General Skin Exam: pallor; Negative for jaundice Sepsis Attestation Possible Source of Sepsis: Pulmonary Sepsis Organ Dysfunction Criteria Present: SBP < 90 mmHg or MAP < 65 mmHg Supportive Findings: Patient's blood pressure is normally mid 80s to 90. Reason only a 500 cc bolus was given. Of note patient's blood pressure did respond to the 500 cc bolus. MDM MDM MDM Narrative Medical decision making narrative: Since patient is hypotensive he received a fluid bolus. His normal systolic is 90. He is tachycardic with a rate of 147. Appears to be sinus tach on the monitor. He is also tachypneic. Temperature is 99.7 which is within normal range. Oxygen saturation with trach collar is 93%. Need to evaluate for pneumonia, bronchiectasis, PE needs to be considered if no other explanation. EKG was obtained to rule out cardiac ischemia. Sepsis work-up was undertaken. Since patient has history of pneumonia and urinary tract infection he was started on Rocephin which will cover both respiratory and urologic pathogens. Since he does have respiratory symptoms will obtain COVID test. Since he is not febrile influenza was not obtained. Infiltrate is noted on side patient complains of pain. Interpretation by radiology which was read. When compared to prior x-ray the infiltrate is worse. Patient as stated was treated with Rocephin for both urologic and repacked agents. UA is pending. 2 cover atypical organisms as well as MRSA patient was treated with oral doxycycline in addition to the Rocephin. This also will cover anaerobes since patient has history of aspiration. Lab Data Attestation: I reviewed the patient's lab results. Lab results narrative: White count is normal. Patient has chronic anemia. Differential is unremarkable. Coags are normal. Labs: Laboratory Results - last 24 hr 04/02/22 04/02/22 04/02/22 11:32 11:32 11:32 WBC 4.9 RBC 3.30 L Hgb 10.0 L Hct 32.8 L MCV 99.4 H MCH 30.3 MCHC 30.5 L RDW Std Deviation 58.8 H RDW Coeff of Oz 16.2 H Plt Count 156 MPV 11.9 Immature Gran % (Auto) 0.800 Neut % (Auto) 75.0 H Lymph % (Auto) 11.0 L [place] % (Auto) 12.6 H Eos % (Auto) 0.2 Baso % (Auto) 0.4 Absolute Neuts (auto) 3.7 Absolute Lymphs (auto) 0.54 L Nucleated RBC % 0 Platelet Estimate ADEQUATE Anisocytosis 1+ PT 15.1 H INR 1.2 APTT 34.0 Sodium 142 Potassium 3.7 Chloride 109 H Carbon Dioxide 28.0 Anion Gap 5 BUN 41 H Creatinine 1.81 H Estim Creat Clear Calc 28.72 Est GFR (MDRD) Af Amer 47 L Est GFR (MDRD) Non-Af 39 L BUN/Creatinine Ratio 22.7 H Glucose 142 H Lactic Acid Calcium 9.3 Total Bilirubin 0.40 AST 18 ALT 17 Alkaline Phosphatase 55 Total Protein 7.2 Albumin 2.3 L Globulin 4.9 H Albumin/Globulin Ratio 0.5 L Urine Color Urine Clarity Urine pH Ur Specific [place] Urine Protein Urine Glucose (UA) Urine Ketones Urine Occult Blood Urine Nitrite Urine Bilirubin Urine Urobilinogen Ur Leukocyte Esterase Urine RBC Urine WBC Ur Squamous Epith Cells Ur Transition Epith Cell Ur Renal Epithelial Cell Calcium Oxalate Crystal Uric Acid Crystals Triple Phos Crystals Other Crystals Amorphous Sediment Urine Bacteria Hyaline Casts Fine Granular Casts Coarse Granular Casts Waxy Casts RBC Casts WBC Casts Urine Mucus Urine Trichomonas Urine Yeast 04/02/22 04/02/22 11:32 13:45 WBC RBC Hgb Hct MCV MCH MCHC RDW Std Deviation RDW Coeff of Oz Plt Count MPV Immature Gran % (Auto) Neut % (Auto) Lymph % (Auto) [place] % (Auto) Eos % (Auto) Baso % (Auto) Absolute Neuts (auto) Absolute Lymphs (auto) Nucleated RBC % Platelet Estimate Anisocytosis PT INR APTT Sodium Potassium Chloride Carbon Dioxide Anion Gap BUN Creatinine Estim Creat Clear Calc Est GFR (MDRD) Af Amer Est GFR (MDRD) Non-Af BUN/Creatinine Ratio Glucose Lactic Acid 1.4 Calcium Total Bilirubin AST ALT Alkaline Phosphatase Total Protein Albumin Globulin Albumin/Globulin Ratio Urine Color Yellow Urine Clarity Clear Urine pH 5.0 Ur Specific [place] 1.015 Urine Protein 100 H Urine Glucose (UA) Normal Urine Ketones 5 H Urine Occult Blood 150 H Urine Nitrite Negative Urine Bilirubin Negative Urine Urobilinogen Normal Ur Leukocyte Esterase 500 H Urine RBC Cancelled Urine WBC Cancelled Ur Squamous Epith Cells Cancelled Ur Transition Epith Cell Cancelled Ur Renal Epithelial Cell Cancelled Calcium Oxalate Crystal Cancelled Uric Acid Crystals Cancelled Triple Phos Crystals Cancelled Other Crystals Cancelled Amorphous Sediment Cancelled Urine Bacteria Cancelled Hyaline Casts Cancelled Fine Granular Casts Cancelled Coarse Granular Casts Cancelled Waxy Casts Cancelled RBC Casts Cancelled WBC Casts Cancelled Urine Mucus Cancelled Urine Trichomonas Cancelled Urine Yeast Cancelled Radiography Chest X-Ray - ED: 2 View and Read by ED Physician (Chest x-ray reveals right lower lobe infiltrate. There is slight hyperaeration. Cardiac silhouette is unremarkable. Cardiac size unremarkable. Osseous structures are unremarkable.) Diagnostic Testing: Clinical Impression(s) from Imaging Studies Chest X-Ray 04/02/22 10:59 IMPRESSION: Improved left lower lobe infiltrate. Slightly worse right lower lobe infiltrate. Consider waxing and waning pneumonia, Compared to prior study March 05, 2022 Given the clinical history recommend consideration for follow-up CT scan of the chest when appropriate. Stable Port-A-Cath. Stable Tracheostomy tube. Electronically Signed: Alyssia Rodriguez MD at 11:52 EST , EKG Initial EKG: Attestation: I personally reviewed and interpreted this EKG as follows: Interpretation: Sinus Tachycardia (Ventricular rate is 109. [place] interval is 126 ms. Cures duration 70 ms. QT duration 322 ms. [place] is normal. There are premature ventricular complexes noted.) Discharge Plan Dx/Rx/DC Orders Clinical Impression: Right lower lobe pulmonary infiltrate, Cancer, metastatic to lung, Dehydration, Laryngeal cancer, Severe malnutrition, Cough with hemoptysis, Acute hypotension, Acute renal failure superimposed on stage 2 chronic kidney disease Disposition Disposition: Acute Care Hospital [facility]
[2022-04-02] MEDS: Ceftriaxone 1 GM/50 ML BAG IV (11:43)
[2022-04-02 11:44] LABS: Absolute Lymphocyte Count 0.54 X10^3/uL (0.83-4.51); Absolute Neutrophil Count 3.7 X10^3/uL (2.0-7.7); Basophil# 0.02 X10^3/uL; Basophil% 0.4 % (0-1); Eosinophil# 0.01 X10^3/uL; Eosinophils% 0.2 % (0-5); Hematocrit 32.8 % (40-54); Lymphocyte # 0.54 X10^3/ul (0.83-4.51); Mean Corp Hgb Conc 30.5 g/dL (32-36); Mean Corpuscular Hgb 30.3 pg (27.0-32.0); Mean Corpuscular Volume 99.4 fL (80-94); Mean Platelet Vol. 11.9 fl (6.2-12.0); Monocyte# 0.62 X10^3/uL; Monocyte% 12.6 % (0-10); NRBC Flagged by Analyzer 0 % (0-5); Neutrophil # 3.68 X10^3/uL (2.7-7.7); POSITIVE DIFFERENTIAL YES; POSITIVE MORPHOLOGY YES; Platelet Count 156 K/mm3 (150-450); RBC Distribution Width CV 16.2 % (11.6-14.6); RBC Distribution Width SD 58.8 fl (35.1-43.9); White Blood Count 4.9 K/mm3 (4.4-11.0)
[2022-04-02 11:46] LABS: Differential Indicated SCAN CRITERIA MET
[2022-04-02 11:51] LABS: International Normalized Ratio 1.2; Prothrombin Time (Protime)PT. 15.1 SECONDS (11.7-14.9)
[2022-04-02 11:56] LABS: ALB/GLOB Ratio 0.5 RATIO (0.9-2.4); AST(SGOT) 18 U/L (15-37); Alanine Aminotransfer ALT/SGPT 17 U/L (16-61); Albumin, Serum 2.3 g/dL (3.2-5.0); Alkaline Phosphatase 55 U/L (45-117); Anion Gap 5 (5-15); BUN 41 mg/dL (7-18); BUN/Creat Ratio 22.7 RATIO (10-20); Calcium,Total 9.3 mg/dL (8.5-10.1); Chloride 109 mmol/L (98-107); Creatinine, Serum 1.81 mg/dL (0.70-1.30); EST Glomerular Filtration Rate 39 mL/min (>60); Est Glom Filt Rate - Afr Amer 47 mL/min (>60); Estimated Creatinine Clearance 28.72 ml/min; Globulin 4.9 g/dL (2.2-4.2); Glucose 142 mg/dL (74-106); Potassium 3.7 mmol/L (3.5-5.1); Protein, Total 7.2 g/dL (6.4-8.2); Sodium Level 142 mmol/L (136-145)
[2022-04-02 12:02] LABS: Lactic Acid 1.4 mmol/L (0.4-1.9)
[2022-04-02 12:03] LABS: Platelet Estimate ADEQUATE (ADEQ)
--- NOTE | 2022-04-02 12:03 | ED.RN ---
urinated around catheter after new placed. deflated balloon and advanced catheter. to monitor. pt denies pain
[2022-04-02 12:04] LABS: Anisocytosis 1+
[2022-04-02] MEDS: Doxycycline 100 MG CAPSULE PO (13:26)
[2022-04-02 13:54] LABS: Color, Urine Yellow (Yellow); Glucose, Dipstick Normal (Normal); Ketone-Dipstick 5 mg/dl (Negative); Leukocyte Esterase-Dipstick 500 /ul (Negative); Nitrite-Dipstick Negative (Negative); Occult Blood-Urine 150 /ul (Negative); Specific Gravity, Urine 1.015 (1.002-1.030); Urine Bilirubin Dipstick Negative (Negative)
[2022-04-02 13:58] LABS: Protein-Dipstick 100 mg/dl (Negative); Urine Clarity Clear (Clear); Urine Urobilinogen Normal (Normal)
--- NOTE | 2022-04-02 14:32 | PCM.HP.STD ---
HPI - General General Date of Admission: 04/02/22 Date of Service: 04/02/22 Chief Complaint: Shortness of breath HPI Narrative SERENITY ESTRADA, is a 76 M with past medical history significant for laryngeal CA status post tracheostomy in which a PEG tube who presented with shortness of breath. Patient shortness of breath started a day prior to coming in. And has gotten progressively worse. In addition patient did experience subjective fever as well as chills. He had cough and some hemoptysis. Presented to the emergency department imaging studies demonstrated left lower lobe infiltrate as well as right lower lobe infiltrate. Patient urinalysis was also abnormal with positive leukoesterase. Patient was found to be hypotensive (has history of adrenal insufficiency). Was started on IV fluids and admitted to regular nursing floor for further manage [facility] Medical History Abnormal sputum amount Acute nontraumatic kidney injury Adverse effect of antineoplastic and immunosuppressive drugs Agranulocytosis secondary to cancer chemotherapy Antineoplastic chemotherapy induced anemia Constipation Diarrhea Dietary restriction Dysphagia Fever Former smoker History of renal disease Hypermagnesemia Left upper extremity swelling Long-term use of high-risk medication Malodorous urine Neuropathy Oral candidiasis pegtube Pneumonia port placement Primary malignant neoplasm of hypopharynx RUQ abdominal pain Secondary malignant neoplasm of lung Shortness of breath on exertion Tachycardia Thyroid disease tracheotomy and laryngeal biopsy Urinary tract infection Wears glasses Wheezing Home Medications lactose-reduced food with fiber 0.06 gram-1.5 kcal/mL oral liquid 237 ml G-tube Q4H nutrition 09/09/18 [History Last Taken 03/05/22 08:00] levothyroxine 50 mcg tablet 50 mcg PO DAILY #30 tabs 08/22/21 [Rx Last Taken 03/05/22 08:00] finasteride 5 mg tablet 5 mg PO DAILY 02/11/22 [History Last Taken 03/05/22 08:00] gabapentin 300 mg/6 mL (6 mL) oral solution 300 mg (6 mL) G-tube BID nerve pain #240 mL 02/27/22 [Rx Last Taken 03/05/22 08:00] potassium, sodium phosphates 280 mg-160 mg-250 mg oral powder packet 1 packet PO ONCE #100 ea 02/27/22 [Rx Last Taken 03/05/22 08:00] Allergy/AdvReac Type Severity Reaction Status Date / Time venom-wasp Allergy Anaphylaxis Verified 04/02/22 10:44 pseudoephedrine HCl AdvReac Severe Unknown Verified 04/02/22 10:44 [From Sudafed] Antihistamines - Alkylamine AdvReac Mild Other Verified 04/02/22 10:44 Family History Father Colon cancer Hypertension Mother Hypertension Surgical History History of surgery Hx of tonsillectomy S/P percutaneous endoscopic gastrostomy (PEG) tube placement Social History household members: spouse Smoking Status: Former smoker quit date: 04/08/17 pack-years: 55 alcohol intake: never substance use type: does not use ROS ROS Narrative GENERAL: fever, chills, HEENT: denies headache, sinus congestion, or drainage, dysphagia RESPIRATORY: cough, sputum production, shortness of breath, dyspnea on exertion CARDIAC: denies chest pain, palpitations, orthopnea, PND GASTROINTESTINAL: denies abdominal pain, nausea, vomiting, melena, GENITOURINARY: denies dysuria, urgency, frequency, heamaturia EXTREMITY: denies swelling MUSCULOSKELETAL: denies current joint pain or tenderness NEUROLOGIC: denies focal numbness, weakness, tingling HEMATOLOGIC: denies easy bruising and/or hemorrhage INTEGUMENT: denies rashes PSYCHIATRIC: denies suicidal or homicidal ideation Vital Signs Vital Signs Vital Signs: 04/02/22 10:39 04/02/22 10:38 04/02/22 10:41 Temperature 99.7 F H 99.7 F H Temperature Source Oral Oral Pulse Rate 147 H 147 H Respiratory Rate 31 H 31 H Respiratory Effort Respiratory Depth Respiratory Pattern Blood Pressure 80/59 L 80/59 L Blood Pressure Mean 66 66 Pulse Ox 88 93 93 Oxygen Delivery Method Trach Collar Trach Collar Trach Collar Oxygen Flow Rate (L/min) 2 4 4 04/02/22 11:38 04/02/22 10:59 04/02/22 11:46 Temperature 97.0 F L Temperature Source Temporal Pulse Rate 131 H Respiratory Rate 20 H Respiratory Effort Short of Breath Respiratory Depth Shallow Respiratory Pattern Tachypnea Blood Pressure 79/57 L Blood Pressure Mean 64 Pulse Ox 93 Oxygen Delivery Method Venturi Mask Room Air Oxygen Flow Rate (L/min) 04/02/22 12:49 Temperature Temperature Source Pulse Rate 90 Respiratory Rate 20 H Respiratory Effort Respiratory Depth Respiratory Pattern Blood Pressure 100/71 Blood Pressure Mean 80 Pulse Ox 97 Oxygen Delivery Method Venturi Mask Oxygen Flow Rate (L/min) Weight Weight: 56.7 kg Body Mass Index (BMI) 17.9 Physical Exam Narrative GENERAL: Appears cachectic HEENT: Atraumatic; trach collar in place EYES; Anicteric, Normal Conjunctiva NECK; supple, normal thyroid, RESPIRATORY: Diminished to auscultation CARDIOVASCULAR:? Regular S1 S2, GI:? soft, normoactive bowel sounds, : No Renal angle tenderness; EXTREMITIES:? No edema, no clubbing, MUSCULOSKELETAL:? no muscle wasting NEURO:? Awake;? no lateralizing signs. SKIN:? No Rash PSYCH; Flat? affect Results Lab / Micro Data Result Diagrams: 04/02/22 11:32 04/02/22 11:32 Labs: Laboratory Results - last 24 hr 04/02/22 11:32: WBC 4.9, RBC 3.30 L, Hgb 10.0 L, Hct 32.8 L, MCV 99.4 H, MCH 30.3, MCHC 30.5 L, RDW Std Deviation 58.8 H, RDW Coeff of Oz 16.2 H, Plt Count 156, MPV 11.9, Immature Gran % (Auto) 0.800, Neut % (Auto) 75.0 H, Lymph % (Auto) 11.0 L, [place] % (Auto) 12.6 H, Eos % (Auto) 0.2, Baso % (Auto) 0.4, Absolute Neuts (auto) 3.7, Absolute Lymphs (auto) 0.54 L, Nucleated RBC % 0, Platelet Estimate ADEQUATE, Anisocytosis 1+ 04/02/22 11:32: PT 15.1 H, INR 1.2, APTT 34.0 04/02/22 11:32: Sodium 142, Potassium 3.7, Chloride 109 H, Carbon Dioxide 28.0, Anion Gap 5, BUN 41 H, Creatinine 1.81 H, Estim Creat Clear Calc 28.72, Est GFR (MDRD) Af Amer 47 L, Est GFR (MDRD) Non-Af 39 L, BUN/Creatinine Ratio 22.7 H, Glucose 142 H, Calcium 9.3, Total Bilirubin 0.40, AST 18, ALT 17, Alkaline Phosphatase 55, Total Protein 7.2, Albumin 2.3 L, Globulin 4.9 H, Albumin/Globulin Ratio 0.5 L 04/02/22 11:32: Lactic Acid 1.4 04/02/22 13:45: Urine Color Yellow, Urine Clarity Clear, Urine pH 5.0, Ur Specific [place] 1.015, Urine Protein 100 H, Urine Glucose (UA) Normal, Urine Ketones 5 H, Urine Occult Blood 150 H, Urine Nitrite Negative, Urine Bilirubin Negative, Urine Urobilinogen Normal, Ur Leukocyte Esterase 500 H, Urine RBC Cancelled, Urine WBC Cancelled, Ur Squamous Epith Cells Cancelled, Ur Transition Epith Cell Cancelled, Ur Renal Epithelial Cell Cancelled, Calcium Oxalate Crystal Cancelled, Uric Acid Crystals Cancelled, Triple Phos Crystals Cancelled, Other Crystals Cancelled, Amorphous Sediment Cancelled, Urine Bacteria Cancelled, Hyaline Casts Cancelled, Fine Granular Casts Cancelled, Coarse Granular Casts Cancelled, Waxy Casts Cancelled, RBC Casts Cancelled, WBC Casts Cancelled, Urine Mucus Cancelled, Urine Trichomonas Cancelled, Urine Yeast Cancelled Radiology Impression Chest X-Ray 04/02/22 10:59 IMPRESSION: Improved left lower lobe infiltrate. Slightly worse right lower lobe infiltrate. Consider waxing and waning pneumonia, Compared to prior study March 05, 2022 Given the clinical history recommend consideration for follow-up CT scan of the chest when appropriate. Stable Port-A-Cath. Stable Tracheostomy tube. Electronically Signed: Alyssia Rodriguez MD at 11:52 EST , Assessment & Plan Assessment/Plan (1) Right lower lobe pulmonary infiltrate: (2) Cough with hemoptysis: PLAN: Plan Patient is a 76-year-old gentleman admitted shortness of breath diagnosed with bilateral pneumonia 1. Bilateral pneumonia with suspected MDR's ? Patient has been admitted to regular nursing floor started on cefepime as well as azithromycin in addition to vancomycin cultures sent 2. Hypotension ? Patient has history of adrenal insufficiency. Patient was recently discharged from the hospital on prednisone and midodrine was not on any of these medications given steroid dose of hydrocortisone and midodrine initiated 3.? Chronic hypoxic respiratory failure ? Secondary to laryngeal CA Status post tracheostomy 4.? 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 Status post tracheostomy and PEG tube placement patient currently receiving chemo as outpatient 5.? Anemia - Secondary to chronic disorder monitoring H&H and transfuse if patient becomes symptomatic or hemoglobin falls below? 7 6.? 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 Status post PEG tube placement 7.? Acute kidney injury ? Superimposed on chronic kidney disease stage IIIb managed with IV fluid with monitoring of electrolyte 8.? Severe protein calorie malnutrition ? As evidenced by inadequate oral intake secondary to patient multiple comorbidities.? Patient is currently n.p.o. and receives nutrition via PEG tube 9.? Chronic pain syndrome ? Patient is on gabapentin 9..Chronic urinary retention secondary to BPH, s/p chaves catheter 10.? Hypothyroidism - Patient is on levothyroxine home dose continued 11.? DVT prophylaxis Bilateral SCDs avoided the use of chemoprophylaxis in view of patient hemoptysis on admission Advance planning; did discuss with the patient regarding advanced directives as well as CODE STATUS. Did explain the various scenarios involved ( FULL CODE, DNR CCA, DNR CCA with no intubation, and DNR CC and what each meant) patient elected to remain full code with CPR and intubation if needed. Order was placed. Time spent on discussion 18 minutes. Charges/Coding Visit Charges Inpatient E&M: 80986 Init Hosp L3 Procedures Hospitalists Procedures: 41003 Advncd Care Plan 30 Min
[2022-04-02] MEDS: 0.9% Normal Saline 1,000 ML 150 ML IV (19:22)
--- NOTE | 2022-04-02 20:18 | PCM.RX.CS ---
Consult Pharmacy has been consulted to manage selected antiobiotic: Vancomycin Type of Consult: New start Suspected Infection: Pneumonia Labs: Sodium 142 mmol/L (136-145) 04/02/22 11:32 Potassium 3.7 mmol/L (3.5-5.1) 04/02/22 11:32 Chloride 109 mmol/L (98-107) H 04/02/22 11:32 Carbon Dioxide 28.0 mmol/L (21.0-32.0) 04/02/22 11:32 Anion Gap 5 (5-15) 04/02/22 11:32 BUN 41 mg/dL (7-18) H 04/02/22 11:32 Creatinine 1.81 mg/dL (0.70-1.30) H 04/02/22 11:32 Est GFR (MDRD) Af Amer 47 mL/min (>60) L 04/02/22 11:32 Est GFR (MDRD) Non-Af 39 mL/min (>60) L 04/02/22 11:32 BUN/Creatinine Ratio 22.7 RATIO (10-20) H 04/02/22 11:32 Glucose 142 mg/dL (74-106) H 04/02/22 11:32 Goal Trough: 15-20 mcg/mL Pharmacy Plan for Drug Dosing: NEW START IV VANCOMYCIN Consulting Physician: Dr. Hopper Indication: Pneumonia Goal Trough: 15-20 SrCr: 1.81 CrCl: 28.7 mls/min Comments: Vancomycin Dose: based on pts weight and renal function, recommend an initial dose of 750mg q24h. trough before the 3rd total dose Pending Level: 04/04/22 at 1930 Pharmacy Service will continue to monitor and adjust dosing as required. Follow-Up Labs: Trough Vancomycin - 04/04/22 at 1930
[2022-04-02] MEDS: Gabapentin 300 MG Capsule GT (22:59)
[2022-04-02] MEDS: Midodrine HCl 5 MG Tablet 10 MG GT (22:59)
[2022-04-02] MEDS: Hydrocortisone Sod Succinate 100 MG/2 ML Vial 50 MG IV (23:00)
[2022-04-02] MEDS: Jevity 1.5. 1,000 ML Bottle 237 ML GT (23:20)
[2022-04-03] MEDS: 0.9% Normal Saline 1,000 ML 150 ML IV ×2 (02:16→09:15)
[2022-04-03] MEDS: Hydrocortisone Sod Succinate 100 MG/2 ML Vial 50 MG IV ×4 (05:28→23:11)
[2022-04-03] MEDS: Levothyroxine 50 MCG Tablet PO (05:28)
[2022-04-03] MEDS: Jevity 1.5. 1,000 ML Bottle 237 ML GT ×5 (05:29→23:08)
[2022-04-03 05:58] VITALS: BP 80/46; PULSE 62; RESP 18; TEMP 36.6; O2SAT 98
[2022-04-03 06:51] LABS: Absolute Lymphocyte Count 0.85 X10^3/uL (0.83-4.51); Absolute Neutrophil Count 2.8 X10^3/uL (2.0-7.7); Basophil# 0.01 X10^3/uL; Basophil% 0.3 % (0-1); Eosinophil# 0.01 X10^3/uL; Eosinophils% 0.3 % (0-5); Hematocrit 30.9 % (40-54); Hemoglobin 9.6 g/dL (13.0-16.5); Lymphocyte # 0.85 X10^3/ul (0.83-4.51); Mean Corp Hgb Conc 31.1 g/dL (32-36); Mean Corpuscular Hgb 31.4 pg (27.0-32.0); Mean Platelet Vol. 12.6 fl (6.2-12.0); Monocyte# 0.24 X10^3/uL; Monocyte% 6.2 % (0-10); NRBC Flagged by Analyzer 0 % (0-5); Neutrophil # 2.75 X10^3/uL (2.7-7.7); Neutrophil % 70.9 % (47-70); Platelet Count 151 K/mm3 (150-450); RBC Distribution Width CV 16.1 % (11.6-14.6); RBC Distribution Width SD 59.7 fl (35.1-43.9); Red Blood Count 3.06 M/mm3 (4.6-6.2); White Blood Count 3.9 K/mm3 (4.4-11.0)
[2022-04-03 07:03] LABS: M R Staph aureus DNA By PCR POSITIVE (Negative); Probe Check PASS
[2022-04-03 07:11] LABS: Anion Gap 6 (5-15); BUN 41 mg/dL (7-18); BUN/Creat Ratio 26.1 RATIO (10-20); Calcium,Total 8.8 mg/dL (8.5-10.1); Chloride 111 mmol/L (98-107); Creatinine, Serum 1.57 mg/dL (0.70-1.30); EST Glomerular Filtration Rate 46 mL/min (>60); Est Glom Filt Rate - Afr Amer 56 mL/min (>60); Estimated Creatinine Clearance 32.02 ml/min; Glucose 118 mg/dL (74-106); Magnesium 2.6 mg/dL (1.6-2.6); Phosphorus 2.8 mg/dL (2.5-4.9); Potassium 4.2 mmol/L (3.5-5.1); Sodium Level 143 mmol/L (136-145)
[2022-04-03 09:20] VITALS: BP 96/64; PULSE 99; RESP 18; TEMP 36.6; O2SAT 97
[2022-04-03] MEDS: Midodrine HCl 5 MG Tablet 10 MG GT ×3 (09:24→18:03)
[2022-04-03] MEDS: Finasteride 5 MG Tablet PO (09:25)
[2022-04-03] MEDS: Gabapentin 300 MG Capsule GT ×2 (09:32→23:11)
[2022-04-03 11:06] VITALS: O2SAT 93
[2022-04-03 11:54] VITALS: BP 96/63; PULSE 83; RESP 18; TEMP 36.4; O2SAT 100
[2022-04-03] MEDS: NYSTATIN 500,000 UNIT/5 ML UDC 500000 UNIT PO ×3 (14:07→23:11)
--- NOTE | 2022-04-03 15:10 | CASEMGMT ---
LORRIE RIVAS DC Planning Assessment: Face to Face with pt at bedside for DC Planning assessment. Pt's significant other Christiane at bedside and participated in assessment. Christiane referred to pt have been admitted to [facility] in February,. Assessment from 02/13/22 reviewed and updated based on pt and pt's S.O.'s responses. Admitting Dx: Pneumonia PCP: LEÓN Knowles Specialists: Dr. Max (oncology), Dr. Martinez (urology); Dr. Graham (nephrology), Dr. Baumann (ENT) Insurance: [facility] A/B, [employer] Living arrangements: Pt lives in a single story mobile home with one step to enter. Pt is independent with ADLs. Transportation: Significant other DME: Shower chair, cane, walker, raised toilet, hospital bed, nebulizer, pulse ox, suction machine, and concentrator. Pt had new home O2 set-up via [employer] in 02/2022. Pt was ordered O2 at 6l/min with exertion at that time and states he wears 2L/min w/exertion prior to admission. Pt's S.O. states the suction machine remains from equipment obtained from [facility] many years ago and requests a new machine as their's has not been serviced in many years. Pt states he does not use this at home. Pt also with a PEG tube and Pt and his S.O. manage TF. TF and trach supplies are obtained from [employer]. SNF: none HHC: none Outpt tx: Noted pt was to f/u with outpt tx at [facility] following his February visit. Pt and his S.O. agree that he did not attend any outpt tx appointments due to the number of appointments they already have on their schedule including IV fluid hydration every Saturday and Saturday and Keytruda therapy with [facility]. Plan: Return home with the support of pt's S.O. and potential new suction machine and O2 humidification. Will monitor for any change in O2 needs at discharge. Will continue to follow and assist with any additional DC needs as identified. Saumya Paredes RN CM
[2022-04-03 17:49] VITALS: BP 109/62; PULSE 61; RESP 18; TEMP 36.8; O2SAT 98
--- NOTE | 2022-04-03 19:40 | PN.HOSP_ITS ---
Subjective Subjective Patient was seen and examined today, he does not complain of any shortness of breath to this examiner. Patient's Legionella antigen, strep antigen, and respiratory panel all unremarkable. Patient did have a positive nasal swab for MRSA today. I have elected to have pulmonary medicine see the patient-he is currently on 3 different antibiotics and I am concerned that he may need a de- escalation of his antibiotic treatment. I have elected to repeat the patient's chest x-ray in the morning. Objective Data Objective Data Vital Signs: Vital Signs Temp Pulse Resp BP Pulse Ox O2 Del Method O2 Flow Rate 98.3 F 61 18 109/62 98 Trach Collar 2 04/03/22 17:49 04/03/22 17:49 04/03/22 17:49 04/03/22 17:49 04/03/22 17:49 04/03/22 17:49 04/03/22 17:49 Oxygen Flow Rate (L/min) 2 Oxygen Delivery Method Trach Collar Weight: 54.839 kg Body Mass Index (BMI) 17.3 Intake & Output: Intake and Output for Last 24 Hours 04/01/22 04/02/22 04/03/22 23:59 23:59 23:59 Intake Total 550 / 550 5155 / 5155 Output Total 150 / 150 650 / 650 Balance 400 / 400 4505 / 4505 Lab / Micro Data Result Diagrams: 04/04/22 04:18 04/04/22 04:18 Labs: Laboratory Results - last 24 hr 04/03/22 04:48: WBC 3.9 L, RBC 3.06 L, Hgb 9.6 L, Hct 30.9 L, MCV 101.0 H, MCH 31.4, MCHC 31.1 L, RDW Std Deviation 59.7 H, RDW Coeff of Oz 16.1 H, Plt Count 151, MPV 12.6 H, Immature Gran % (Auto) 0.300, Neut % (Auto) 70.9 H, Lymph % (Auto) 22.0, [place] % (Auto) 6.2, Eos % (Auto) 0.3, Baso % (Auto) 0.3, Absolute Neuts (auto) 2.8, Absolute Lymphs (auto) 0.85, Nucleated RBC % 0 04/03/22 04:48: Sodium 143, Potassium 4.2, Chloride 111 H, Carbon Dioxide 26.0, Anion Gap 6, BUN 41 H, Creatinine 1.57 H, Estim Creat Clear Calc 32.02, Est GFR (MDRD) Af Amer 56 L, Est GFR (MDRD) Non-Af 46 L, BUN/Creatinine Ratio 26.1 H, Glucose 118 H, Calcium 8.8, Phosphorus 2.8, Magnesium 2.6 04/03/22 04:50: MRSA (PCR) POSITIVE H Micro: Microbiology 04/02/22 13:45 Urine Catheter - Catheter Urine Culture - Preliminary Mixed Gram Positive Organisms 04/02/22 Unknown Urine, Random Streptococcus pneumoniae Antigen (M - Final 04/02/22 Unknown Mucosa - Nasopharyngeal Respiratory Panel (PCR) - Final 04/02/22 Unknown Interface Orders Legionella Antigen - Final Physical Exam Const alert, oriented x3 and no apparent distress Constitutional Narrative: Patient appears cachectic and unwell General Appearance: cooperative, well kempt and well developed Orientation / Consciousness: awake, oriented to person, oriented to place and oriented to time HEENT normocephalic and moist oral mucous membranes HEENT Narrative: Patient has an indwelling tracheostomy Eyes PERRL, EOMs intact bilaterally and conjunctivae normal Neck supple, no JVD and thyroid normal Neck Narrative: Patient has an indwelling tracheostomy Resp normal respiratory effort, no retractions, no use of accessory muscles and clear to auscultation bilaterally Auscultation: Negative for rales, rhonchi or wheezes Cardio regular rate, regular rhythm, S1 normal heart sound, S2 normal heart sound, no murmurs, no rub and no gallops GI normal to inspection, nondistended, normoactive bowel sounds, soft to palpation, non-tender and non-distended GI Narrative: Patient has a button PEG tube in place Extremity no clubbing, cyanosis or edema Skin no rashes or lesions noted General Skin Exam: no breakdown Neuro oriented x3, CN's II-XII intact bilaterally, no focal motor deficits and no sensory deficits noted Sensorium / Orientation: awake and alert Speech: speech normal Psych affect normal Assessment & Plan Assessment/Plan (1) Right lower lobe pulmonary infiltrate: PLAN: Plan 1. Right lower lobe pneumonia-patient is currently on 3 different antibiotics, I have requested that pulmonary medicine see the patient to de-escalate antibiotic coverage. 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-patient is currently getting immunotherapy as an outpatient #4 hypoxia-patient uses only nighttime oxygen at home, he is stable at this time on a 2 L trach mask #5 chronic hypoxic respiratory failure-again patient uses home O2 at night #6 chronic urinary retention-patient has an indwelling Maxwell at this time #7 dehydration-patient's creatinine is improved from yesterday #8 chronic kidney disease stage IIIb-complicates care, medical course, recovery, and prognosis, monitor BMP #9 anemia of chronic disease-patient does not require a transfusion at this time , CBC will be repeated tomorrow Charges/Coding Visit Charges Inpatient E&M: 99246 Subs Hosp L2
[2022-04-03 23:00] VITALS: BP 112/66; PULSE 76; RESP 18; TEMP 36.7; O2SAT 98
[2022-04-04 02:30] VITALS: BP 96/64; PULSE 68; RESP 18; TEMP 36.8; O2SAT 97
[2022-04-04 04:50] LABS: Absolute Lymphocyte Count 0.74 X10^3/uL (0.83-4.51); Absolute Neutrophil Count 3.1 X10^3/uL (2.0-7.7); Basophil# 0.01 X10^3/uL; Basophil% 0.2 % (0-1); Hematocrit 30.6 % (40-54); Lymphocyte # 0.74 X10^3/ul (0.83-4.51); Lymphocyte % 17.2 % (19-41); Mean Corp Hgb Conc 29.4 g/dL (32-36); Mean Corpuscular Hgb 29.7 pg (27.0-32.0); Monocyte% 9.3 % (0-10); NRBC Flagged by Analyzer 0 % (0-5); Neutrophil # 3.11 X10^3/uL (2.7-7.7); Neutrophil % 72.6 % (47-70); Platelet Count 166 K/mm3 (150-450); RBC Distribution Width CV 16.1 % (11.6-14.6); RBC Distribution Width SD 58.9 fl (35.1-43.9); Red Blood Count 3.03 M/mm3 (4.6-6.2); White Blood Count 4.3 K/mm3 (4.4-11.0)
[2022-04-04 05:07] LABS: Anion Gap 4 (5-15); BUN 41 mg/dL (7-18); BUN/Creat Ratio 30.1 RATIO (10-20); Calcium,Total 8.9 mg/dL (8.5-10.1); Chloride 116 mmol/L (98-107); Creatinine, Serum 1.36 mg/dL (0.70-1.30); EST Glomerular Filtration Rate 54 mL/min (>60); Est Glom Filt Rate - Afr Amer 66 mL/min (>60); Estimated Creatinine Clearance 36.96 ml/min; Glucose 105 mg/dL (74-106); Potassium 4.2 mmol/L (3.5-5.1); Sodium Level 145 mmol/L (136-145)
[2022-04-04] MEDS: Levothyroxine 50 MCG Tablet PO (05:21)
[2022-04-04] MEDS: Hydrocortisone Sod Succinate 100 MG/2 ML Vial 50 MG IV ×3 (05:21→17:51)
[2022-04-04] MEDS: Jevity 1.5. 1,000 ML Bottle 237 ML GT ×4 (05:44→17:50)
--- NOTE | 2022-04-04 05:55 | RAD_ITS ---
STUDY: X-RAY CHEST REASON FOR EXAM: Male, 76 years old. pneumonia TECHNIQUE: 2 AP portable view of the chest. COMPARISON: April 02, 2022 and March 05, 2022. FINDINGS: 1. Stable left side chest port 2. Stable tracheostomy tube 3. No pneumothorax is present 4. There is persistent bandlike atelectasis across the base of the right lower lobe, which is slightly increased from what was seen on the March 05, 2022 study. No change in small bilateral pleural effusions. There are no additional areas of consolidation in either lung. 5. Redemonstration of chronic hyperinflation and cystic emphysematous changes of both lungs 6. Normal heart size 7. Stable mediastinal and osseous structures There is no demonstrated abnormality of the visualized soft tissue structures of the upper abdomen. RAD/Chest 1 View (Portable) IMPRESSION: * There is persistent bandlike atelectasis across the base of the right lower lobe, which is slightly increased from what was seen on the March 05, 2022 study.dy. No change in small bilateral pleural effusions. Electronically Signed: Denny Patel MD at 8:37 EST ,
--- NOTE | 2022-04-04 08:01 | EX.PCM.CONCC ---
Assessment & Plan Assessment/Plan (1) Right lower lobe pulmonary infiltrate: PLAN: Plan RECOMMENDATIONS: 1. Transition antimicrobials to Levaquin to complete 7-day treatment course. 2. Wean from stress dose steroids. 3. Continue scheduled bronchodilators. 4. Supplemental oxygen to maintain saturations at or above 90%. 5. Continue nutritional support via G-tube. 6. Outpatient pulmonary follow-up in 2 weeks post discharge. IMPRESSIONS: 1. Shortness of breath and associated hypoxia Although the patient has a presumptive history of COPD, we have never been able to complete PFTs on him.? The patient reported that he has been utilizing 2 L/min of supplemental oxygen via trach collar at his baseline. His chest imaging at the time of his admission revealed a streaky right lower lobe opacity, concerning for potential pneumonia. In light of the patient's decompensated status and history of chronic aspiration, it would be reasonable to continue empiric antimicrobials, especially since he has grown Pseudomonas multiple times in the past. Therefore, I would transition him to Levaquin to complete 7 days of therapy. He does, however, appear to be at his baseline from a respiratory perspective. 2.??Acute on chronic kidney disease Most likely prerenal in etiology in the setting of #1. Continue to monitor urine output.? No current indication for renal replacement therapy.? 3. History of metastatic oropharyngeal cancer/chronic dysphagia/malnutrition/hypothyroidism/chronic tobacco dependency Complicates care, management, recovery and prognosis.? Continue home medications as indicated.? This note was generated with [employer] dictation software. It may contain incorrect words, spelling, and punctuation that were not noted in checking the note before signing. HPI Consult Data Date of Consult: 04/04/22 HPI Narrative Reason for Consultation: Pneumonia HPI Narrative: The patient is a 76-year-old male, with a history as outlined below, who presented to the emergency department on April 02 with worsening shortness of breath. 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 The patient was initially treated with chemotherapy and radiation, and did require eventual tracheostomy placement.? He then developed progressive disease with mediastinal adenopathy and lung nodules.? He was subsequently started on Keytruda.? The patient has a long-standing history of dysphagia with chronic aspiration, and therefore also underwent a PEG tube placement.? The patient is currently followed chronically by Dr. Max of oncology. The patient reported that he typically utilizes 2 L/min of supplemental oxygen via trach mask at his baseline. On presentation to the emergency department, the patient was noted to have a low-grade fever. The patient was notably tachycardic and tachypneic. Initial blood pressures were somewhat tenuous as well. Initial laboratory evaluation revealed no evidence of leukocytosis. Chemistry profile was notable for a creatinine of 1.8. Infectious work-up has been unrevealing to date. Chest imaging demonstrated an airspace opacity in the right lower lung, which appeared almost like streaky atelectasis. The patient was placed on cefepime, azithromycin and vancomycin. He was admitted to the medical surgical floor for further management. In light of a history of adrenal insufficiency, the patient was placed on stress dose steroids. This morning, the patient does report feeling well from a respiratory perspective. He is currently maintaining appropriate oxygen saturations on 2 L/min. [facility] Medical History Abnormal sputum amount Acute nontraumatic kidney injury Adverse effect of antineoplastic and immunosuppressive drugs Agranulocytosis secondary to cancer chemotherapy Antineoplastic chemotherapy induced anemia Constipation Diarrhea Dietary restriction Dysphagia Fever Former smoker History of renal disease Hypermagnesemia Left upper extremity swelling Long-term use of high-risk medication Malodorous urine Neuropathy Oral candidiasis pegtube Pneumonia port placement Primary malignant neoplasm of hypopharynx RUQ abdominal pain Secondary malignant neoplasm of lung Shortness of breath on exertion Tachycardia Thyroid disease tracheotomy and laryngeal biopsy Urinary tract infection Wears glasses Wheezing Home Medications lactose-reduced food with fiber 0.06 gram-1.5 kcal/mL oral liquid 237 ml G-tube Q4H nutrition 09/09/18 [History Last Taken 03/05/22 08:00] levothyroxine 50 mcg tablet 50 mcg PO DAILY #30 tabs 08/22/21 [Rx Last Taken 03/05/22 08:00] finasteride 5 mg tablet 5 mg PO DAILY 02/11/22 [History Last Taken 03/05/22 08:00] gabapentin 300 mg/6 mL (6 mL) oral solution 300 mg (6 mL) G-tube BID nerve pain #240 mL 02/27/22 [Rx Last Taken 03/05/22 08:00] potassium, sodium phosphates 280 mg-160 mg-250 mg oral powder packet 1 packet PO ONCE #100 ea 02/27/22 [Rx Last Taken 03/05/22 08:00] Allergy/AdvReac Type Severity Reaction Status Date / Time venom-wasp Allergy Anaphylaxis Verified 04/02/22 10:44 pseudoephedrine HCl AdvReac Severe Unknown Verified 04/02/22 10:44 [From Sudafed] Antihistamines - Alkylamine AdvReac Mild Other Verified 04/02/22 10:44 Family History Father Colon cancer Hypertension Mother Hypertension Surgical History History of surgery Hx of tonsillectomy S/P percutaneous endoscopic gastrostomy (PEG) tube placement Social History household members: spouse Smoking Status: Former smoker quit date: 04/08/17 pack-years: 55 alcohol intake: never substance use type: does not use ROS ROS Narrative 10 systems reviewed with pertinent positives as noted in the HPI above. Physical Exam Const alert Constitutional Narrative: Frail and cachectic in appearance. General Appearance: cooperative HEENT normocephalic and head/scalp atraumatic Eyes PERRL, EOMs intact bilaterally and conjunctivae normal Neck supple Neck Narrative: Stable tracheostomy site. Chest inspection of chest normal Chest Narrative: Stable appearing chest wall port. Resp normal respiratory effort Auscultation: diminished lung sounds; Negative for rales, rhonchi or wheezes Cardio regular rate and regular rhythm GI normal to inspection, nondistended, normoactive bowel sounds Inspection: GI tube present Extremity no clubbing, cyanosis or edema Skin no rashes or lesions noted Neuro CN's II-XII intact bilaterally and no focal motor deficits Psych cooperative and affect normal Lab / Micro Data Result Diagrams: 04/04/22 04:18 04/04/22 04:18 Labs: Laboratory Results - last 24 hr 04/04/22 04:18: WBC 4.3 L, RBC 3.03 L, Hgb 9.0 L, Hct 30.6 L, MCV 101.0 H, MCH 29.7, MCHC 29.4 L D, RDW Std Deviation 58.9 H, RDW Coeff of Oz 16.1 H, Plt Count 166, MPV 12.0, Immature Gran % (Auto) 0.700, Neut % (Auto) 72.6 H, Lymph % (Auto) 17.2 L, [place] % (Auto) 9.3, Eos % (Auto) 0.0, Baso % (Auto) 0.2, Absolute Neuts (auto) 3.1, Absolute Lymphs (auto) 0.74 L, Nucleated RBC % 0 04/04/22 04:18: Sodium 145, Potassium 4.2, Chloride 116 H, Carbon Dioxide 25.0, Anion Gap 4 L, BUN 41 H, Creatinine 1.36 H, Estim Creat Clear Calc 36.96, Est GFR (MDRD) Af Amer 66, Est GFR (MDRD) Non-Af 54 L, BUN/Creatinine Ratio 30.1 H, Glucose 105, Calcium 8.9 Micro: Microbiology 04/02/22 11:40 Blood Culture (Wb) - Right Wrist Blood Culture - Preliminary No growth in 48 hours. 04/02/22 11:32 Blood Culture (Wb) - Port Blood Culture - Preliminary No growth in 48 hours. 04/02/22 13:45 Urine Catheter - Catheter Urine Culture - Preliminary Mixed Gram Positive Organisms 04/02/22 Unknown Urine, Random Streptococcus pneumoniae Antigen (M - Final Charges/Coding Visit Charges Inpatient E&M: 58265 Init Hosp L3
[2022-04-04 08:40] VITALS: O2SAT 94
[2022-04-04 09:23] VITALS: BP 107/61; PULSE 57; RESP 16; TEMP 36.5; O2SAT 97
[2022-04-04] MEDS: Gabapentin 300 MG Capsule GT ×2 (09:45→20:54)
[2022-04-04] MEDS: Finasteride 5 MG Tablet PO (09:45)
[2022-04-04] MEDS: Midodrine HCl 5 MG Tablet 10 MG GT ×3 (09:45→17:49)
[2022-04-04] MEDS: NYSTATIN 500,000 UNIT/5 ML UDC 500000 UNIT PO ×4 (09:46→20:54)
[2022-04-04 11:00] VITALS: O2SAT 100
[2022-04-04] MEDS: levoFLOXacin 500 MG Tablet PO (12:19)
[2022-04-04] MEDS: 0.9% Saline Lock 10 ML Syringe IV (12:21)
[2022-04-04 14:39] VITALS: BP 134/78; PULSE 59; RESP 18; TEMP 36.6; O2SAT 96
--- NOTE | 2022-04-04 19:07 | PCM.PN.HOSP ---
Subjective Subjective Patient was seen and examined today, pulmonary medicine saw the patient today and recommended that all antibiotics be stopped and that the patient be placed on Levaquin in place of his previous antibiotics. Patient remained stable on 2 L oxygen via trach mask, I had a long conversation with the patient's significant other today, she is concerned that the patient is debilitated and needs physical therapy, I agreed to have physical therapy see the patient, she states that the patient would not want to go to an extended care facility for inpatient rehab services however. Patient and significant other also stated that she is having problems getting the patient to his appointments because of the weather. Objective Data Objective Data Vital Signs: Vital Signs Temp Pulse Resp BP Pulse Ox O2 Del Method O2 Flow Rate 97.8 F 59 L 18 134/78 H 96 Trach Collar 2 04/04/22 14:39 04/04/22 14:39 04/04/22 14:39 04/04/22 14:39 04/04/22 14:39 04/04/22 14:39 04/04/22 14:39 FiO2 28 04/04/22 11:00 Oxygen Flow Rate (L/min) 2 Oxygen Delivery Method Trach Collar Weight: 54.839 kg Body Mass Index (BMI) 17.3 Intake & Output: Intake and Output for Last 24 Hours 04/02/22 04/03/22 04/04/22 23:59 23:59 23:59 Intake Total 550 / 550 5255 / 5522 1166 / 1166 Output Total 150 / 150 650 / 650 650 / 650 Balance 400 / 400 4605 / 4872 516 / 516 Lab / Micro Data Result Diagrams: 04/04/22 04:18 04/04/22 04:18 Labs: Laboratory Results - last 24 hr 04/04/22 04:18: WBC 4.3 L, RBC 3.03 L, Hgb 9.0 L, Hct 30.6 L, MCV 101.0 H, MCH 29.7, MCHC 29.4 L D, RDW Std Deviation 58.9 H, RDW Coeff of Oz 16.1 H, Plt Count 166, MPV 12.0, Immature Gran % (Auto) 0.700, Neut % (Auto) 72.6 H, Lymph % (Auto) 17.2 L, [place] % (Auto) 9.3, Eos % (Auto) 0.0, Baso % (Auto) 0.2, Absolute Neuts (auto) 3.1, Absolute Lymphs (auto) 0.74 L, Nucleated RBC % 0 04/04/22 04:18: Sodium 145, Potassium 4.2, Chloride 116 H, Carbon Dioxide 25.0, Anion Gap 4 L, BUN 41 H, Creatinine 1.36 H, Estim Creat Clear Calc 36.96, Est GFR (MDRD) Af Amer 66, Est GFR (MDRD) Non-Af 54 L, BUN/Creatinine Ratio 30.1 H, Glucose 105, Calcium 8.9 Micro: Microbiology 04/02/22 13:45 Urine Catheter - Catheter Urine Culture - Preliminary Gram Positive Cocci Yeast, not Velma albicans 04/02/22 11:40 Blood Culture (Wb) - Right Wrist Blood Culture - Preliminary No growth in 48 hours. 04/02/22 11:32 Blood Culture (Wb) - Port Blood Culture - Preliminary No growth in 48 hours. 04/02/22 Unknown Urine, Random Streptococcus pneumoniae Antigen (M - Final 04/02/22 Unknown Mucosa - Nasopharyngeal Respiratory Panel (PCR) - Final 04/02/22 Unknown Interface Orders Legionella Antigen - Final Radiography Diagnostic Testing: Radiology Impression Chest X-Ray 04/04/22 05:55 IMPRESSION: * There is persistent bandlike atelectasis across the base of the right lower lobe, which is slightly increased from what was seen on the March 05, 2022 study.dy. No change in small bilateral pleural effusions. Electronically Signed: Denny Patel MD at 8:37 EST Reading Location ID and State: [address] [place] [address] , Service support , Physical Exam Narrative alert, oriented x3 and no apparent distress Constitutional Narrative: Patient appears cachectic and unwell General Appearance: cooperative, well kempt and well developed Orientation / Consciousness: awake, oriented to person, oriented to place and oriented to time HEENT normocephalic and moist oral mucous membranes HEENT Narrative: Patient has an indwelling tracheostomy Eyes PERRL, EOMs intact bilaterally and conjunctivae normal Neck supple, no JVD and thyroid normal Neck Narrative: Patient has an indwelling tracheostomy Resp normal respiratory effort, no retractions, no use of accessory muscles and clear to auscultation bilaterally Auscultation: Negative for rales, rhonchi or wheezes Cardio regular rate, regular rhythm, S1 normal heart sound, S2 normal heart sound, no murmurs, no rub and no gallops GI normal to inspection, nondistended, normoactive bowel sounds, soft to palpation, non-tender and non-distended GI Narrative: Patient has a button PEG tube in place Extremity no clubbing, cyanosis or edema Skin no rashes or lesions noted General Skin Exam: no breakdown Neuro oriented x3, CN's II-XII intact bilaterally, no focal motor deficits and no sensory deficits noted Sensorium / Orientation: awake and alert Speech: speech normal Psych affect normal Assessment & Plan Assessment/Plan (1) Right lower lobe pulmonary infiltrate: PLAN: Plan 1. Right lower lobe pneumonia-patient was changed to Levaquin today, chest x-ray today showed continuing abnormality of the right lower lung described as bandlike atelectasis, no mention of a left lower lobe infiltrate was noted on chest x-ray today. 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-patient is currently getting immunotherapy as an outpatient #4 hypoxia-patient uses only nighttime oxygen at home, he is stable at this time on a 2 L trach mask #5 chronic hypoxic respiratory failure-again patient uses home O2 at night #6 chronic urinary retention-patient has an indwelling Maxwell at this time #7 dehydration-patient's creatinine is improved from yesterday #8 chronic kidney disease stage IIIb-complicates care, medical course, recovery, and prognosis, monitor BMP #9 anemia of chronic disease-patient does not require a transfusion at this time #10 chronic debility-patient will be seen by PT, he may need to prescription for outpatient physical therapy. Charges/Coding Visit Charges Inpatient E&M: 12769 Subs Hosp L2
[2022-04-04 20:51] VITALS: BP 132/99; PULSE 63; RESP 18; TEMP 36.6; O2SAT 99
[2022-04-05] MEDS: Hydrocortisone Sod Succinate 100 MG/2 ML Vial 50 MG IV ×3 (00:48→13:02)
[2022-04-05 03:40] VITALS: BP 126/75; PULSE 58; RESP 18; TEMP 36.6; O2SAT 100
[2022-04-05] MEDS: 0.9% Saline Lock 10 ML Syringe IV ×2 (04:43→13:43)
[2022-04-05] MEDS: Levothyroxine 50 MCG Tablet PO (04:43)
[2022-04-05] MEDS: levoFLOXacin 250 MG Tablet GT (04:43)
[2022-04-05] MEDS: Jevity 1.5. 1,000 ML Bottle 237 ML GT ×2 (06:02→10:42)
[2022-04-05 08:49] VITALS: BP 110/69; PULSE 61; RESP 18; TEMP 36.6; O2SAT 98
[2022-04-05] MEDS: Midodrine HCl 5 MG Tablet 10 MG GT ×2 (08:53→13:02)
--- NOTE | 2022-04-05 09:46 | PCM.PN.INT ---
Assessment & Plan Assessment/Plan (1) Right lower lobe pulmonary infiltrate: PLAN: Plan RECOMMENDATIONS: 1. Transition antimicrobials to Levaquin to complete 7-day treatment course. 2. Wean from stress dose steroids. 3. Continue scheduled bronchodilators. 4. Supplemental oxygen to maintain saturations at or above 90%. 5. Continue nutritional support via G-tube. 6. Outpatient pulmonary follow-up in 2 weeks post discharge. 7. Will sign off at this time. Please call with any additional questions. IMPRESSIONS: 1. Shortness of breath and associated hypoxia Although the patient has a presumptive history of COPD, we have never been able to complete PFTs on him.? The patient reported that he has been utilizing 2 L/min of supplemental oxygen via trach collar at his baseline. His chest imaging at the time of his admission revealed a streaky right lower lobe opacity, concerning for potential pneumonia. In light of the patient's decompensated status and history of chronic aspiration, it would be reasonable to continue empiric antimicrobials, especially since he has grown Pseudomonas multiple times in the past. Therefore, I would continue him on Levaquin to complete 7 days of therapy. He does, however, appear to be at his baseline from a respiratory perspective. 2.??Acute on chronic kidney disease Most likely prerenal in etiology in the setting of #1. Continue to monitor urine output.? No current indication for renal replacement therapy.? 3. History of metastatic oropharyngeal cancer/chronic dysphagia/malnutrition/hypothyroidism/chronic tobacco dependency Complicates care, management, recovery and prognosis.? Continue home medications as indicated.? This note was generated with [employer] dictation software. It may contain incorrect words, spelling, and punctuation that were not noted in checking the note before signing. Subjective Subjective The patient was seen and examined at the bedside this morning. Events from the last 24 hours have been reviewed. The patient is currently afebrile, hemodynamically stable and maintaining appropriate oxygen saturations on 2 L/min trach collar. The patient remains stable from a respiratory perspective at his baseline oxygen requirement. Objective Data Objective Data The patient's most recent lab work, culture data and imaging studies have all been personally reviewed. Vital Signs: Vital Signs Temp Pulse Resp BP Pulse Ox O2 Del Method O2 Flow Rate 97.8 F 61 18 110/69 98 Trach Collar 2 04/05/22 08:49 04/05/22 08:49 04/05/22 08:49 04/05/22 08:49 04/05/22 08:49 04/05/22 08:49 04/05/22 08:49 FiO2 28 04/04/22 11:00 Oxygen Flow Rate (L/min) 2 Oxygen Delivery Method Trach Collar Weight: 120 lb 14.4 oz Body Mass Index (BMI) 17.3 Intake & Output: Intake and Output for Last 24 Hours 04/03/22 04/04/22 04/05/22 23:59 23:59 23:59 Intake Total 5255 / 5522 1488 / 1488 322 / 322 Output Total 650 / 650 1050 / 1050 350 / 350 Balance 4605 / 4872 438 / 438 - / - Lab / Micro Data Attestation: I reviewed the patient's lab results. Result Diagrams: 04/04/22 04:18 04/04/22 04:18 Micro: Microbiology 04/02/22 13:45 Urine Catheter - Catheter Urine Culture - Preliminary Staphylococcus epidermidis Yeast, not Velma albicans 04/02/22 20:30 Blood Culture (Wb) - Anticubital Left Blood Culture - Preliminary No growth in 48 hours. 04/02/22 20:15 Blood Culture (Wb) - Anticubital Left Blood Culture - Preliminary No growth in 48 hours. 04/02/22 11:40 Blood Culture (Wb) - Right Wrist Blood Culture - Preliminary No growth in 48 hours. 04/02/22 11:32 Blood Culture (Wb) - Port Blood Culture - Preliminary No growth in 48 hours. 04/02/22 Unknown Urine, Random Streptococcus pneumoniae Antigen (M - Final 04/02/22 Unknown Mucosa - Nasopharyngeal Respiratory Panel (PCR) - Final 04/02/22 Unknown Interface Orders Legionella Antigen - Final Physical Exam Const alert Constitutional Narrative: Frail and cachectic in appearance. General Appearance: cooperative HEENT normocephalic and head/scalp atraumatic Eyes PERRL, EOMs intact bilaterally and conjunctivae normal Neck supple Neck Narrative: Stable tracheostomy site. Chest inspection of chest normal Chest Narrative: Stable appearing chest wall port. Resp normal respiratory effort Auscultation: diminished lung sounds; Negative for rales, rhonchi or wheezes Cardio regular rate and regular rhythm GI normal to inspection, nondistended, normoactive bowel sounds Inspection: GI tube present Extremity no clubbing, cyanosis or edema Skin no rashes or lesions noted Neuro CN's II-XII intact bilaterally and no focal motor deficits Psych cooperative and affect normal Charges/Coding Visit Charges Inpatient E&M: 89525 Subs Hosp L2
[2022-04-05] MEDS: NYSTATIN 500,000 UNIT/5 ML UDC 500000 UNIT PO (10:42)
[2022-04-05] MEDS: Finasteride 5 MG Tablet PO (10:42)
[2022-04-05] MEDS: Gabapentin 300 MG Capsule GT (10:45)
--- NOTE | 2022-04-05 11:20 | CPS ---
R.T. checked on patient, pt motioned for RT to come into the room to suction. Suctioned copious amounts of thin to thick (few small plugs) of vanilla smelling secretions. RT told Kunal ANDREW that it smelled like tube feeding.
--- NOTE | 2022-04-05 11:45 | CASEMGMT ---
Addendum entered by Anu Thompson 04/05/22 12:48: Pt requires oxygen at rest. Referral sent to [facility] with updated rx for oxygen as well as the suction machine and supplies. Original Note: RN CM into pt room, spoke with pt and . They are aware a suction machine and supply order will be sent to [facility] for them per request. Also that pt will be tested for oxygen needs and once this is complete, will fax to [facility] with the order for humidity. Provided pt with a rx for outpt PT. Discussed options for facilities for the therapy. Pt has chosen [facility] but wants to set up the appt herself as they have multiple other appts that she needs to work around. Pt denies further homegoing needs. indep with TF. Discussed oxygen testing with pt nurse.
--- NOTE | 2022-04-05 12:02 | PCM.DC ---
Discharge Instructions Diet Discharge Diet: - (Resume previous diet) Activity Discharge Activity: Return to Normal Activity Weight Bearing Status: Full weight bearing Follow Up Care Test Results: Test results from this visit will be discussed in further detail at your follow-up appointment, if applicable. Discharge Plan Admission Admit Date/Time: 04/02/22 14:31 Primary Reason for Your Visit: pneumonia Attending Provider: Gordy Hamilton Primary Care Provider: Alejandro Liu Consulting Providers: Larry Hopper ; Hebert Camarena ; Stuart Polo ; Santos Marino ; Dean Renee ; Kayleen Callejas FLIGHT/TRANSPORT NURSE Instructions Additional Instructions / Restrictions: Use 2 L of oxygen via trach mask at rest and 4 L of oxygen via trach mask on ambulation Recommend you follow-up with outpatient physical therapy Discharge Orders/Prescriptions Prescriptions: New nystatin 100,000 unit/mL Suspension 500,000 unit PO 4X/DAY Qty: 100 0RF levofloxacin 250 mg Tablet 250 mg G-tube DAILY@0600 Qty: 5 0RF Rx Instructions: start on 04/06/22 Continued levothyroxine 50 mcg tablet 50 mcg PO DAILY Qty: 30 2RF potassium, sodium phosphates 280-160-250 mg powder in packet 1 packet PO ONCE Qty: 100 0RF gabapentin 300 mg/6 mL (6 mL) solution 300 mg GT BID Qty: 240 5RF lactose-reduced food with fibr 237 ML liquid 237 ml GT Q4H finasteride 5 mg Tablet 5 mg PO DAILY Referrals / Follow Up: Alejandro Liu, PA [Primary Care Provider] - Within 2 Weeks Disposition Disposition (needs filled in before D/C Order can be placed): Home, Self Care
[2022-04-05 12:42] VITALS: O2SAT 88; O2SAT 94
--- NOTE | 2022-04-05 13:08 | DS.PCM_ITS ---
Providers Date of Admission: 04/02/22 Date of Discharge: 04/05/22 Primary Care Physician: CRAIG Fung Consultations 04/03/22 15:50 Consult: Industrial Sewer / Pulmonary Medicine Routine Consulting Provider: Pulmonary Medicine michael Rodney Reason for Consult: ? pneumonia EMERGENT Consult: Yes MD Notified: Yes Date Notified: 04/03/22 Time Notified: 16:33 Method of Notification: Text Method of Consult:: In-Person Reason For Visit: PNEUMONIA Diagnosis Discharge Diagnosis (1) Right lower lobe pulmonary infiltrate: Status: Acute Code(s): R91.8 - Other nonspecific abnormal finding of lung field Plan 1. Right lower lobe pneumonia-patient was changed to Levaquin today, chest x- ray today showed continuing abnormality of the right lower lung described as bandlike atelectasis, no mention of a left lower lobe infiltrate was noted on chest x-ray today. 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-patient is currently getting immunotherapy as an outpatient #4 hypoxia-patient uses only nighttime oxygen at home, he is stable at this time on a 2 L trach mask #5 chronic hypoxic respiratory failure-again patient uses home O2 at night #6 chronic urinary retention-patient has an indwelling Maxwell at this time #7 dehydration-patient's creatinine is improved from yesterday #8 chronic kidney disease stage IIIb-complicates care, medical course, recovery, and prognosis, monitor BMP #9 anemia of chronic disease-patient does not require a transfusion at this time #10 chronic debility-patient will be seen by PT, he may need to prescription for outpatient physical therapy. Medications at Discharge Home Medications lactose-reduced food with fiber 0.06 gram-1.5 kcal/mL oral liquid 237 ml G-tube Q4H nutrition 09/09/18 levothyroxine 50 mcg tablet 50 mcg PO DAILY #30 tabs 08/22/21 finasteride 5 mg tablet 5 mg PO DAILY 02/11/22 gabapentin 300 mg/6 mL (6 mL) oral solution 300 mg (6 mL) G-tube BID nerve pain #240 mL 02/27/22 potassium, sodium phosphates 280 mg-160 mg-250 mg oral powder packet 1 packet PO ONCE #100 ea 02/27/22 levofloxacin 250 mg tablet 250 mg G-tube DAILY@0600 #5 tabs 04/05/22 nystatin 100,000 unit/mL oral suspension 500,000 unit (5 mL) PO 4X/DAY #100 mL 04/05/22 Hospital Course Operations None Procedures None Summary of Care Provided Minutes Spent on Discharge: 31 Hospital Course: This 76-year-old white male was seen in the emergency room at [facility] complaining of generalized weakness and cough productive of campos sputum with some blood tingeing. There is also been poor p.o. intake at home according to the . Patient was on chronic oxygen via trach mask at home. Patient was noted to be hypotensive in the emergency room and he received a fluid bolus. Craig baldwin was tachycardic also in the emergency room. Oxygen saturation with trach collar was 93% chest x-ray revealed an improved left lower lobe infiltrate and a slightly worse right lower lobe infiltrate as compared with previous study 03/05/2022. Patient's white blood cell count was normal. [facility], kept on IV antibiotics, and seen in consultation by pulmonary medicine. He was also seen in consultation by PT and OT and nutritional services. Patient was transitioned to Levaquin as recommended by pulmonary medicine. Patient was given a prescription for outpatient physical therapy services. On 04/05/2022, patient was seen and examined: alert, oriented x3 and no apparent distress Constitutional Narrative: Patient appears cachectic and unwell General Appearance: cooperative, well kempt and well developed Orientation / Consciousness: awake, oriented to person, oriented to place and oriented to time HEENT normocephalic and moist oral mucous membranes HEENT Narrative: Patient has an indwelling tracheostomy Eyes PERRL, EOMs intact bilaterally and conjunctivae normal Neck supple, no JVD and thyroid normal Neck Narrative: Patient has an indwelling tracheostomy Resp normal respiratory effort, no retractions, no use of accessory muscles and clear to auscultation bilaterally Auscultation: Negative for rales, rhonchi or wheezes Cardio regular rate, regular rhythm, S1 normal heart sound, S2 normal heart sound, no murmurs, no rub and no gallops GI normal to inspection, nondistended, normoactive bowel sounds, soft to palpation, non-tender and non-distended GI Narrative: Patient has a button PEG tube in place Extremity no clubbing, cyanosis or edema Skin no rashes or lesions noted General Skin Exam: no breakdown Neuro oriented x3, CN's II-XII intact bilaterally, no focal motor deficits and no sensory deficits noted Sensorium / Orientation: awake and alert Speech: speech normal Psych affect normal At the time of discharge on 04/05/2022, patient required the use of 2 L of oxygen via trach mask at rest and 4 L of oxygen via trach mask on ambulation, he was expected to use the trach mask oxygen at home at rest and during activities of daily living. Weight / BMI Weight Weight: 54.839 kg Body Mass Index (BMI) 17.3 ABG / Lab / Microbiology Data Result Diagrams: 04/04/22 04:18 04/04/22 04:18 Microbiology: Microbiology 04/02/22 13:45 Urine Catheter - Catheter Urine Culture - Preliminary Staphylococcus epidermidis Yeast, not Velma albicans 04/02/22 20:30 Blood Culture (Wb) - Anticubital Left Blood Culture - Preliminary No growth in 48 hours. 04/02/22 20:15 Blood Culture (Wb) - Anticubital Left Blood Culture - Preliminary No growth in 48 hours. 04/02/22 11:40 Blood Culture (Wb) - Right Wrist Blood Culture - Preliminary No growth in 48 hours. 04/02/22 11:32 Blood Culture (Wb) - Port Blood Culture - Preliminary No growth in 48 hours. 04/02/22 Unknown Urine, Random Streptococcus pneumoniae Antigen (M - Final 04/02/22 Unknown Mucosa - Nasopharyngeal Respiratory Panel (PCR) - Final 04/02/22 Unknown Interface Orders Legionella Antigen - Final D/C Instructions Discharge Diet: - (Resume previous diet) Weight Bearing Status: Full weight bearing Meaningful Use Info Meaningful Use Diagnoses (Choose all that apply): None applicable Discharge Plan Admission Admit Date/Time: 04/02/22 14:31 Primary Reason for Your Visit: pneumonia Attending Provider: Gordy Hamilton Primary Care Provider: Alejandro Liu Consulting Providers: Larry Hopper ; Hebert Camarena ; Stuart Polo ; Santos Marino ; Dean Renee ; Kayleen Callejas MANAGER PERFORMANCE Instructions Additional Instructions / Restrictions: Use 2 L of oxygen via trach mask at rest and 4 L of oxygen via trach mask on ambulation Recommend you follow-up with outpatient physical therapy Discharge Orders/Prescriptions Prescriptions: New nystatin 100,000 unit/mL Suspension 500,000 unit PO 4X/DAY Qty: 100 0RF levofloxacin 250 mg Tablet 250 mg G-tube DAILY@0600 Qty: 5 0RF Rx Instructions: start on 04/06/22 Continued levothyroxine 50 mcg tablet 50 mcg PO DAILY Qty: 30 2RF potassium, sodium phosphates 280-160-250 mg powder in packet 1 packet PO ONCE Qty: 100 0RF gabapentin 300 mg/6 mL (6 mL) solution 300 mg GT BID Qty: 240 5RF lactose-reduced food with fibr 237 ML liquid 237 ml GT Q4H finasteride 5 mg Tablet 5 mg PO DAILY Referrals / Follow Up: Alejandro Liu, PA [Primary Care Provider] - Within 2 Weeks Disposition Disposition (needs filled in before D/C Order can be placed): Home, Self Care Charges/Coding Visit Charges Inpatient E&M: 69521 Disch Hosp
== END 2022-04-05 14:18 | disposition home or self-care (01) | DRG 193 ==
LOC: ED 14:20 → MS3 18:06
PROVIDERS: Admitting Provider Internal Medicine; Emergency Provider Emergency Medicine; PCP Physician Assistant; Visit Provider Internal Medicine
DX: J15.9 Unspecified bacterial pneumonia (principal); E43 Unspecified severe protein-calorie malnutrition; C78.02 Secondary malignant neoplasm of left lung; E27.40 Unspecified adrenocortical insufficiency; J44.0 Chronic obstructive pulmonary disease with (acute) lower respiratory infection; N17.9 Acute kidney failure, unspecified; J96.11 Chronic respiratory failure with hypoxia; R04.2 Hemoptysis; Z68.1 Body mass index [BMI] 19.9 or less, adult; D63.8 Anemia in other chronic diseases classified elsewhere; C32.9 Malignant neoplasm of larynx, unspecified; Z93.0 Tracheostomy status; N18.32 Chronic kidney disease, stage 3b; Z93.1 Gastrostomy status; E86.0 Dehydration; I95.9 Hypotension, unspecified; E03.9 Hypothyroidism, unspecified; R13.12 Dysphagia, oropharyngeal phase; Z20.822 Contact with and (suspected) exposure to COVID-19; G89.4 Chronic pain syndrome; R53.81 Other malaise; Z99.81 Dependence on supplemental oxygen; Z79.899 Other long term (current) drug therapy; Z79.890 Hormone replacement therapy; Z87.891 Personal history of nicotine dependence; N40.1 Benign prostatic hyperplasia with lower urinary tract symptoms; R33.8 Other retention of urine
CPT/HCPCS: 31720; 36415; 51702; 71045; 80048; 80053; 81002; 83605; 83735; 84100; 85025; 85610; 85730; 87040; 87077; 87086; 87088; 87186; 87449; 87633; 87641; 93005; 97162; 99285; J7030; J7040; J7050; A4216

== ENCOUNTER 2022-04-20 12:35 | Inpatient (IN) | payer MEDICARE, OTHER, SELFPAY ==
[2022-04-20] VITALS (12 sets, daily range): BP systolic 86–116; BP diastolic 52–71; PULSE 56–74; RESP 16–22; TEMP 36.2–37.2; O2SAT 94–100; BMI 18.3
--- NOTE | 2022-04-20 | PROS_PTH ---
PATIENT: SERENITY ESTRADA LOC: MS3 U#:[id number] AGE/SX: 76/M ROOM: [facility] RE04/20/[address]: Dr. Samuel Martinez MD : 1945 BED: 1 DIS: 04/21/2022 SPEC #: [id number] RECD: 04/20/22 11:23 STATUS: CHRIS NOLAN #: [id number] GLYNN: 04/20/22 00:[address]: Samuel Martinez DEPT: SURGICAL PATHOLOGY RECD BY: Greg Vallejo ENTERED: 04/23/22 11:24 SP TYPE: TURP OTHR DR: LEÓN Fung Tissues: Prostate, NOS Procedures: Surgery Specimen Level IV HEADER OPERATION: Cysto, TUR prostate, Olympus PRE-OP DIAGNOSIS: BPH with lower urinary tract symptoms, retention of urine TISSUE SUBMITTED: Prostate tissue MICROSCOPIC DIAGNOSIS Prostate tissue, transurethral resection: Benign prostatic hyperplasia, glandular and stromal type. Focal chronic inflammation and basal cell hyperplasia. SHERRY:mary jo 04/24/2022 MICROSCOPIC DESCRIPTION Slides are reviewed. GROSS DESCRIPTION Received is one container labeled with the patient's name and designated prostate tissue. The specimen consists of multiple irregular fragments of pink-jackson, rubbery, soft tissue that in aggregate weigh 10.6 gm and measure in aggregate 5 x 5 x 2 cm. The entire specimen is submitted in ten cassettes. / SHERRY:mary jo 04/23/2022 TC:5 CPT: 95538
[2022-04-20] MEDS: Lactated Ringers 1,000 ML 15 ML IV (10:40)
[2022-04-20] MEDS: Cefazolin 2 GM in 0.9% Normal Saline 100 ML IV (12:27)
--- NOTE | 2022-04-20 12:39 | PCM.HP.STD ---
HPI - General HPI Narrative SERENITY ESTRADA, is a 76 M who presents for transurethral resection of prostate he has BPH with obstruction urinary retention PFSH Medical History (Updated 04/17/22 @ 11:16 by Lenka Godoy) Abnormal sputum amount Acute hypotension Acute nontraumatic kidney injury Adverse effect of antineoplastic and immunosuppressive drugs Agranulocytosis secondary to cancer chemotherapy Ambulates with cane Anemia Antineoplastic chemotherapy induced anemia Cancer Constipation Cough with hemoptysis Dehydration Diarrhea Dietary restriction Dysphagia Fever Former smoker History of renal disease Hypermagnesemia Indwelling urethral catheter present Left upper extremity swelling Long-term use of high-risk medication Malodorous urine Neuropathy Neuropathy On home oxygen therapy Oral candidiasis pegtube Pneumonia Pneumonia port placement Primary malignant neoplasm of hypopharynx Right lower lobe pulmonary infiltrate RUQ abdominal pain Secondary malignant neoplasm of lung Shortness of breath on exertion Tachycardia Thrush, oral Thyroid disease Tracheostomy in place tracheotomy and laryngeal biopsy Urinary tract infection Wears glasses Wheezing Home Medications lactose-reduced food with fiber 0.06 gram-1.5 kcal/mL oral liquid 237 ml G-tube Q4H nutrition 09/09/18 [History Last Taken 04/19/22] nystatin 100,000 unit/mL oral suspension 500,000 unit (5 mL) PO 4X/DAY #100 mL 04/05/22 [Rx Last Taken 04/20/22 06:00] gabapentin 300 mg capsule 300 mg feeding tube BID 04/17/22 [History Last Taken 04/20/22 06:00] levothyroxine 50 mcg tablet 50 mcg feeding tube DAILY 04/17/22 [History Last Taken 04/20/22 06:00] midodrine 5 mg tablet 5 mg feeding tube TID 04/17/22 [History Last Taken 04/20/22 06:00] potassium, sodium phosphates 280 mg-160 mg-250 mg oral powder packet 1 packet feeding tube DAILY 04/17/22 [History Last Taken 04/19/22] ciprofloxacin HCl 500 mg tablet (Cipro) 500 mg PO BID #10 tabs 04/20/22 [Rx Last Taken Unknown] Allergy/AdvReac Type Severity Reaction Status Date / Time venom-wasp Allergy Anaphylaxis Verified 04/20/22 10:36 pseudoephedrine HCl AdvReac Severe Unknown Verified 04/20/22 10:36 [From Sudafed] Antihistamines - Alkylamine AdvReac Mild Other Verified 04/20/22 10:36 Family History Father Colon cancer Hypertension Mother Hypertension Surgical History (Updated 04/17/22 @ 11:16 by Lenka Godoy) History of surgery Hx of tonsillectomy S/P percutaneous endoscopic gastrostomy (PEG) tube placement Social History household members: spouse Smoking Status: Former smoker quit date: 04/08/17 pack-years: 55 alcohol intake: never substance use type: does not use Vital Signs Vital Signs Vital Signs: 04/20/22 10:44 04/20/22 10:44 Temperature 98.5 F Temperature Source Temporal Pulse Rate 70 Respiratory Rate 18 Respiratory Pattern Normal Blood Pressure 116/63 Blood Pressure Mean 80 Blood Pressure Source Monitor Blood Pressure Position Semi-Fowlers Blood Pressure Location Left Arm Pulse Ox 100 Oxygen Delivery Method Trach Collar Oxygen Flow Rate (L/min) 2 Weight Weight: 58.06 kg Body Mass Index (BMI) 18.3
--- NOTE | 2022-04-20 12:39 | PCM.DC ---
Discharge Instructions Diet Discharge Diet: No restrictions Activity Discharge Activity: Return to Normal Activity Follow Up Care Please Follow Up With: Samuel Martinez MD When: Follow-up in 2 weeks Test Results: Test results from this visit will be discussed in further detail at your follow-up appointment, if applicable. Discharge Plan Admission Primary Reason for Your Visit: MATTY Attending Provider: Samuel Martinez Primary Care Provider: Alejandro Liu Instructions Patient Instructions: [facility] Discharge Orders/Prescriptions Prescriptions: New ciprofloxacin HCl [Cipro] 500 mg tablet 500 mg PO BID Qty: 10 0RF Continued lactose-reduced food with fibr 237 ML liquid 237 ml GT Q4H nystatin 100,000 unit/mL Suspension 500,000 unit PO 4X/DAY Qty: 100 0RF midodrine 5 mg Tablet 5 mg feeding tube TID Rx Instructions: do not give last dose of day after 6PM or within 4 hrs of bedtime levothyroxine 50 mcg tablet 50 mcg feeding tube DAILY gabapentin 300 mg capsule 300 mg feeding tube BID Rx Instructions: Via G-tube. potassium, sodium phosphates 280-160-250 mg powder in packet 1 packet feeding tube DAILY Discontinued finasteride 5 mg Tablet 5 mg feeding tube DAILY Referrals / Follow Up: Samuel Martinez MD [Med Staff - Active Staff] - Alejandro Liu PA [Primary Care Provider] - Disposition Disposition (needs filled in before D/C Order can be placed): Home, Self Care
--- NOTE | 2022-04-20 13:50 | PCM.OPRPT ---
Report of Operation Date of Procedure: 04/20/22 Pre-Operative Diagnosis: BPH with obstruction urinary retention Post-Operative Diagnosis: Same Surgery/Procedure Performed:: Transurethral section of prostate Description of Surgical Findings:: In the preoperative setting I discussed with the patient how the surgery would be done with expect afterwards. We discussed how a prostate resection is done and we discussed the risk of the surgery including, bleeding, infection, retrograde ejaculation, changes with ejaculation or intercourse,. We discussed the possibility that the resection of the prostate may not alleviate his urinary symptoms. We discussed the small risk of developing scar tissue along the urethral channel and strictures. We also discussed the chance of the prostate could grow back and he may need further surgery or treatment in the future for prostate problems. Patient was taken back to the operating room, timeout procedure was performed, he was identified and marked and placed on the operating room table. He underwent general anesthesia. He was placed in dorsolithotomy position. Penis and testicles were prepped and draped in usual sterile fashion. Went into the bladder using the visual obturator with a resectoscope. Once inside the bladder identified the right and left ureteral orifice. I then identified the prostate and the anatomy of the prostate. I marked out the area of the sphincter and the verumontanum was identified. I then proceeded with the prostate resection first resected the median lobe. And then resected the right lobe of the prostate. Then to resect the left lobe of the prostate. I then resected the apical tissue of the prostate. This was a complete resection of all obstructive tissue to improve voiding and relieve obstruction. I then made sure that there was no injury to the sphincter or the verumontanum was still intact. At the end of the resection all the chips were Ellik out of the bladder. I then identified the left and right ureteral orifice and these were confirmed to be in good position and effluxing and not injured. The resectoscope was removed, a 22 Ukrainian catheter was placed into the bladder on continuous irrigation. And the urine was fairly light pink color and draining normally. He was taken back to the PACU in good condition. Surgeon: Samuel Martinez Type of Anesthesia: General Drains: [address] Admit VTE Documentation VTE Present on Admission: No VTE Mechan Device Prophylaxis: SCD's VTE Pharm Prophylaxis ordered?: No
[2022-04-20] MEDS: Midodrine HCl 5 MG Tablet GT (17:19)
[2022-04-20] MEDS: HYDROcodone Bitartrate/Apap 5/325 Tablet PO (17:20)
[2022-04-20] MEDS: Jevity 1.5. 1,000 ML Bottle 237 ML GT ×2 (17:30→21:04)
[2022-04-20] MEDS: 0.9% Normal Saline 1,000 ML 125 ML IV (19:05)
[2022-04-20] MEDS: Ciprofloxacin 200 MG/100 ML BAG IV ×2 (21:00→21:46)
[2022-04-20] MEDS: NYSTATIN 500,000 UNIT/5 ML UDC 500000 UNIT PO (21:05)
[2022-04-20] MEDS: Gabapentin 300 MG Capsule GT (21:09)
[2022-04-21] MEDS: Jevity 1.5. 1,000 ML Bottle 237 ML GT ×5 (01:55→21:54)
[2022-04-21 02:11] VITALS: BP 94/52; PULSE 72; RESP 16; TEMP 36.8; O2SAT 96
[2022-04-21 06:37] VITALS: BP 99/58; PULSE 89; RESP 16; TEMP 36.8; O2SAT 96
[2022-04-21] MEDS: 0.9% Normal Saline 1,000 ML 125 ML IV (06:54)
[2022-04-21] MEDS: Levothyroxine 50 MCG Tablet GT (06:54)
[2022-04-21] MEDS: Ciprofloxacin 200 MG/100 ML BAG IV ×2 (07:48→08:44)
[2022-04-21] MEDS: Midodrine HCl 5 MG Tablet GT ×3 (07:51→17:22)
--- NOTE | 2022-04-21 08:43 | PCM.PN.GU ---
Subjective Subjective 76-year-old male status post TURP for retention of urine only complaint was of some mild lower back pain across the back with a watch this for now do not see any signs of any problems. Otherwise he is doing well urine is clear we will remove the catheter today for a voiding trial and see how he does. Objective Data Objective Data Vital Signs: Vital Signs Temp Pulse Resp BP Pulse Ox O2 Del Method O2 Flow Rate 98.2 F 89 16 99/58 L 96 Trach Collar 2 04/21/22 06:37 04/21/22 06:37 04/21/22 06:37 04/21/22 06:37 04/21/22 06:37 04/21/22 07:40 04/20/22 18:37 FiO2 28 04/20/22 21:28 Oxygen Flow Rate (L/min) 2 Oxygen Delivery Method Trach Collar Weight: 58.06 kg Body Mass Index (BMI) 18.3 Intake & Output: Intake and Output for Last 24 Hours 04/19/22 04/20/22 04/21/22 23:59 23:59 23:59 Intake Total 439.25 / 499.25 1060 / 1060 Output Total 3200 / 3200 1200 / 1200 Balance -2760.75 / -2700.75 -140 / -140
[2022-04-21] MEDS: HYDROcodone Bitartrate/Apap 5/325 Tablet PO (10:10)
[2022-04-21] MEDS: Gabapentin 300 MG Capsule GT ×2 (10:12→21:53)
[2022-04-21] MEDS: Na Biphos/Potassium Phosphate PACKET 1 PACKET GT (10:12)
[2022-04-21] MEDS: NYSTATIN 500,000 UNIT/5 ML UDC 500000 UNIT PO ×4 (10:20→22:01)
[2022-04-21 11:57] VITALS: O2SAT 95
--- NOTE | 2022-04-21 12:16 | CASEMGMT ---
LORRIE RIVAS Readmission Review: Index: 04/02 thru 04/05/22, Dx: pneumonia Readmission 04/20/22 for scheduled TURP for BPH w/urinary obstruction Pt with extensive history with ongoing needs including Trach, PEG w/TF, home O2 from [facility], routine tx with Famuda with [facility] and routine IVF administration on Mondays and Fridays at [facility]. Pt had not followed up with outpt tx from admission prior to 04/02 d/t multiple appointments. Pt and his were provided a new prescription for outpt tx at discharge 04/05 but no appointments are noted within [facility]. Pt also provided with updated prescriptions for a new suction machine. Pt's S.O. is supportive in assisting pt with all care needs. Pt returned for scheduled TURP procedure unrelated to pt's previous admission. Face to face with pt and his S.O. at bedside. S.O. states they did receive the new suction machine and it has been working much better. Pt and S.O. deny any discharge needs at this time. Saumya Paredes RN CM
[2022-04-21 14:41] VITALS: BP 96/66; PULSE 83; RESP 16; TEMP 36.7; O2SAT 97
[2022-04-21 22:12] VITALS: BP 98/55; PULSE 75; RESP 18; TEMP 36.8; O2SAT 97
[2022-04-22] MEDS: Jevity 1.5. 1,000 ML Bottle 237 ML GT ×2 (02:11→11:34)
[2022-04-22 02:23] VITALS: BP 94/49; PULSE 74; RESP 18; TEMP 36.7; O2SAT 99
[2022-04-22] MEDS: Levothyroxine 50 MCG Tablet GT (06:19)
[2022-04-22 08:00] VITALS: BP 91/61; PULSE 70; RESP 16; TEMP 36.9; O2SAT 100
[2022-04-22] MEDS: Midodrine HCl 5 MG Tablet GT ×2 (08:08→11:38)
[2022-04-22 08:13] VITALS: O2SAT 94
[2022-04-22] MEDS: Na Biphos/Potassium Phosphate PACKET 1 PACKET GT (11:33)
[2022-04-22] MEDS: Gabapentin 300 MG Capsule GT (11:38)
[2022-04-22] MEDS: NYSTATIN 500,000 UNIT/5 ML UDC 500000 UNIT PO (12:34)
[2022-04-22 13:58] VITALS: BP 92/58; PULSE 77; RESP 18; TEMP 37; O2SAT 97
[2022-04-22] MEDS: 0.9% Saline Lock 10 ML Syringe IV (15:57)
== END 2022-04-21 16:05 | disposition home or self-care (01) | DRG 713 ==
LOC: SDC 17:13 → MS3 17:13
PROVIDERS: Admitting Provider Urology; PCP Physician Assistant; Referring Provider Urology; Visit Provider Urology
PROC: 0VT08ZZ Resection of Prostate, Via Natural or Artificial Opening Endoscopic (ICD-10-PCS; principal; 2022-04-20 12:05)
DX: N40.1 Benign prostatic hyperplasia with lower urinary tract symptoms (principal); N13.8 Other obstructive and reflux uropathy; E07.9 Disorder of thyroid, unspecified; Z87.891 Personal history of nicotine dependence
CPT/HCPCS: 88305; 99252; 99406; J7030; J7040; J7120; A4216; G0463; J0744; J2405

== ENCOUNTER → 2022-06-01 | Outpatient (CLI) | payer MEDICARE, OTHER, SELFPAY ==
--- NOTE | 2022-06-01 12:31 | CT_ITS ---
INDICATION: LUNG METS EXAMINATION: CT CHEST WITH CONTRAST - CT Chest W/ Contrast Injection TECHNIQUE: Helically acquired images were obtained of the chest following IV contrast. A radiation dose optimization technique was used for this scan. IV Contrast dosage and agent: 75 mL Isovue 300 reformatted images are performed. COMPARISON: February 20, 2021 CT chest, CT with a PET scan August 30, 2021 FINDINGS: There is a visualized tracheostomy tube. There is a left-sided Port-A-Cath with the tip in the superior vena cava. LUNGS, PLEURA AND LARGE AIRWAYS: There is a persistent pattern of left lower lobe peribronchial inflammatory change and mucous plugging. There is slightly greater consolidation of the medial aspect of the left lung base. There is a minimal amount of fluid within the left side distal lower lobe bronchus. There is bronchiectasis and mild right lower lobe peribronchial inflammatory change. There is a calcified granuloma within the right lung base stable since prior study. There is minor biapical thickening. There is right middle lobe bronchiectasis with peribronchial inflammatory change. This is slightly greater than the recent study. No pleural effusion or thickening. No pneumothorax. THYROID: No thyroid lesions. HEART AND PERICARDIUM: There is mild cardiac enlargement. There is a pectus deformity of the chest with narrowing of the right-sided the chest space. Coronary calcifications. The aorta measures 3.4 x 3.0 cm. There is visualized calcification of the aorta. No pericardial effusion. VESSELS: Thoracic aorta is not dilated. No aortic dissection. No obvious central pulmonary embolism although this study was not performed with the pulmonary embolism protocol. MEDIASTINUM AND PRANAV: There are multiple reactive AP window lymph nodes measuring 1.2-1.4 cm. There is a lymph node adjacent to the right side of the elva measuring 0.9 cm. These are very similar to the recent prior study. Is also bilateral calcification within the hilum. Esophagus is unremarkable. No hiatal hernia. UPPER ABDOMEN: There is a cystic structure within the right hepatic lobe stable since prior study measuring 2.2 x 1.7 cm. There is a cystic structure within the right hepatic lobe measuring 1.1 x 1.9 cm. There is a small stable cystic structure measuring 0.7 cm. There is a left hepatic lobe cyst measuring 1 cm. There is a visualized percutaneous endogastric tube which appears to have migrated somewhat into the lumen of the fundus. Typically the pelvis abutting the wall of the stomach. There is a visualized stable benign-appearing right renal cyst measuring 2.4 x 1.7 cm. BONES: The bones are osteopenic. At the level of the level of T1 there is a stable sclerotic appearing density that may represent a hemangioma less likely a single osteoblastic focus.. CT/Chest WITH Contrast IMPRESSION: Persistent left side bronchiectasis and mucous plugging with fluid in the distal inferior bronchus and mucoid material suggesting probable chronic aspiration and bronchiectasis. There is greater peribronchial inflammatory change in the right middle lobe and similar bronchiectasis and within the right lung base. Evidence of granulomatous disease. Tracheostomy tube. Stable reactive mediastinal lymphadenopathy Coronary artery calcification.. Visualization of stable multiple hepatic cysts. The percutaneous endogastric tube balloon is seen within the lumen of the fundus of the stomach. Typically this abuts the wall of the stomach recommend correlation for any loosening and functioning. Tracheostomy tube. Left-sided Port-A-Cath in the superior vena cava. Stable partially visualized right renal cyst. Electronically Signed: Alyssia Rodriguez MD at 23:47 EST ,
[2022-06-01] MEDS: 0.9% Saline Lock 10 ML Syringe IV (13:00)
== END | disposition home or self-care (01) ==
PROVIDERS: PCP Physician Assistant; Visit Provider Internal Medicine Medical Oncology
DX: C13.9 Malignant neoplasm of hypopharynx, unspecified (principal); C78.00 Secondary malignant neoplasm of unspecified lung
CPT/HCPCS: 71260; Q9967; A4216

== ENCOUNTER → 2022-06-21 | Outpatient (CLI) | payer MEDICARE, OTHER, SELFPAY ==
--- NOTE | 2022-06-21 13:48 | CT_ITS ---
STUDY: CTA CHEST REASON FOR EXAM: Male, 77 years old. 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 Post-processing of the angiographic images was performed, with multiplanar reformation and 3D reconstruction. Individualized dose optimization techniques were used for this CT. COMPARISON: 06/01/2022 FINDINGS: Stable appearance of the tracheostomy tube, the tip is 4 cm above the elva. There is a clear cleavage plane between the innominate artery and the trachea. There is no CTA evidence of innominate tracheal fistula. Normal enhancement of the main pulmonary artery and right and left pulmonary arteries. Normal enhancement of the bilateral peripheral pulmonary arteries. There is no demonstrated pulmonary embolism. Peripheral calcifications in the thoracic aorta without aneurysm. There is no demonstrated aortic dissection. Normal heart and pericardium. There are calcifications of the coronary arteries. There are scattered, subcentimeter in short axis dimension mediastinal and perihilar lymph nodes. There is however enlarged subcarinal lymph nodes measuring up to 1.97 cm in short axis dimension. However, within the soft tissues in the subcarinal region there are blood vessels noted. There is peribronchial thickening. The lungs are hyper expanded, with flattening of the hemidiaphragms. Underlying emphysema noted with bleb formation in both lung russell. There is nonspecific pleural thickening in the apices.] Bronchiectatic changes noted in the left lung base with evidence of multifocal pneumonitis. There is nonspecific pleural thickening in both lower hemithoraces. There are degenerative changes noted throughout the thoracic spine with an exaggerated kyphosis Limited cuts through the upper abdomen show simple hepatic cysts, and PEG tube free of complication CT/CTA Chest W/WO Contrast IMPRESSION: There is no CTA evidence of a fistulous connection between the innominate artery and the trachea Stable appearance of the tracheostomy tube. No demonstrated PE, or thoracic aortic aneurysm or dissection Underlying emphysema with chronic bronchitis, bronchiectasis in the medial aspect of left lower lobe, multifocal pneumonitis and pleural thickening in both lower hemithoraces Scattered subcentimeter in short axis dimension mediastinal and perihilar lymph nodes, there is soft tissue density in the subcarinal region but it contains enhancing vessels. Simple hepatic cysts, no specific follow-up needed Electronically Signed: Terell Ribeiro MD at 14:29 EDT ,
[2022-06-21] MEDS: 0.9% Saline Lock 10 ML Syringe IV (13:50)
== END | disposition home or self-care (01) ==
LOC: CT 13:22
PROVIDERS: PCP Physician Assistant; Referring Provider Otolaryngology; Visit Provider Otolaryngology
DX: C13.9 Malignant neoplasm of hypopharynx, unspecified (principal); C78.02 Secondary malignant neoplasm of left lung; K92.0 Hematemesis
CPT/HCPCS: 71275; Q9967; A4216

== ENCOUNTER 2022-08-17 13:05 | Emergency (ER) | payer MEDICARE, OTHER, SELFPAY ==
[2022-08-17] VITALS (7 sets, daily range): BP systolic 97–150; BP diastolic 66–100; PULSE 78–99; RESP 16–24; TEMP 36.6; O2SAT 94–99
--- NOTE | 2022-08-17 13:38 | ED.VIS.DYS ---
HPI History of Present Illness Chief Complaint: Shortness of Breath Informant: patient and spouse/S.O. Onset/Context/Timing Onset: Weeks (about 2) Context: gradual and onset Timing: Continuous Current Severity: Mild Maximum Severity: Mild Worsened by: Exertion and Coughing Relieved by: Rest Associated Symptoms cough and yellow sputum Chest Pain: Positive for None Narrative Narrative: 77-year-old male with a tracheostomy and a history of throat cancer of some type is sent here from oncology due to 3 days of bloody sputum production. He was at oncology today for his biweekly routine fluid infusions and told the nurses about his symptoms. He has a history of aspiration pneumonia according to the significant other. He has had some subjective fevers lately, but has not checked them, just taken Tylenol and felt better. He initially states that he is really no more short of breath than usual but the significant other states otherwise. He states he has started to produce more sputum in the past 2 weeks and been maybe a little more short of breath when he is coughing but not otherwise, this coincides with when he started tapering down the prednisone that was started on 07/23/2022. No history of blood clots, no pain or swelling in either leg. No chest pains, near syncope, palpitations. He is not coughing out theresa blood in any significant amount, more like blood-streaked yellow sputum. [facility] Medical History Abnormal sputum amount Acute hypotension Acute nontraumatic kidney injury Adverse effect of antineoplastic and immunosuppressive drugs Agranulocytosis secondary to cancer chemotherapy Ambulates with cane Anemia Antineoplastic chemotherapy induced anemia Cancer Constipation Cough with hemoptysis Dehydration Diarrhea Dietary restriction Dysphagia Fever Former smoker History of renal disease Hypermagnesemia Indwelling urethral catheter present Left upper extremity swelling Long-term use of high-risk medication Malodorous urine Neuropathy On home oxygen therapy Oral candidiasis pegtube Pneumonia Pneumonitis port placement Primary malignant neoplasm of hypopharynx Right lower lobe pulmonary infiltrate RUQ abdominal pain Secondary malignant neoplasm of lung Shortness of breath on exertion Tachycardia Thrush, oral Thyroid disease Tracheostomy in place tracheotomy and laryngeal biopsy Urinary tract infection Wears glasses Wheezing Home Medications lactose-reduced food with fiber 0.06 gram-1.5 kcal/mL oral liquid 237 ml G-tube Q4H nutrition 09/09/18 [History Last Taken 04/19/22] gabapentin 300 mg capsule 300 mg feeding tube BID 04/17/22 [History Last Taken 04/20/22 06:00] midodrine 5 mg tablet 5 mg feeding tube TID 04/17/22 [History Last Taken 04/20/22 06:00] potassium, sodium phosphates 280 mg-160 mg-250 mg oral powder packet (Phos-NaK) See Rx Instructions .Route .COMPLEX #90 packets 05/21/22 [Rx Last Taken Unknown] guaifenesin 200 mg/5 mL oral liquid 400 mg (10 mL) PO Q6H PRN cough #473 mL 06/05/22 [Rx Last Taken Unknown] levothyroxine 50 mcg tablet See Rx Instructions .Route .COMPLEX #90 TABLETS 06/22/22 [Rx Last Taken Unknown] omeprazole 20 mg capsule,delayed release 20 mg PO DAILY 06/25/22 [History Last Taken Unknown] fluconazole 40 mg/mL oral suspension (Diflucan) 200 mg (5 mL) PO DAILY #40 mL 07/23/22 [Rx Last Taken Unknown] bevacizumab 25 mg/mL intravenous solution (Avastin) 25 mg intravitreal QMONTH 08/10/22 [History Last Taken Unknown] budesonide 0.5 mg/2 mL suspension for nebulization 0.5 mg (2 mL) inhalation BID #120 mL 08/13/22 [Rx Last Taken Unknown] ipratropium 0.5 mg-albuterol 3 mg (2.5 mg base)/3 mL nebulization soln 3 ml inhalation Q4H PRN shortness of breath or wheezing #180 mL 08/14/22 [Rx Last Taken Unknown] levofloxacin 750 mg tablet 750 mg PO Q24H #5 tabs 08/17/22 [Rx Last Taken Unknown] prednisolone sodium phosphate 15 mg/5 mL (5 mL) oral solution 20 mg (6.6667 mL) PO DAILY #250 mL 08/17/22 [Rx Last Taken Unknown] Allergy/AdvReac Type Severity Reaction Status Date / Time venom-wasp Allergy Anaphylaxis Verified 08/17/22 13:09 pseudoephedrine HCl AdvReac Severe Unknown Verified 08/17/22 13:09 [From [facility]] Antihistamines - Alkylamine AdvReac Mild Other Verified 08/17/22 13:09 Family History Father Colon cancer Hypertension Mother Hypertension Surgical History History of surgery Hx of tonsillectomy S/P percutaneous endoscopic gastrostomy (PEG) tube placement Social History household members: spouse Smoking Status: Former smoker quit date: 04/08/17 pack-years: 55 alcohol intake: never substance use type: does not use ROS ROS ED Constitutional Constitutional ED: Reports fever(s) and subjective; Denies chills Eyes Eyes: Denies change in vision or diplopia ENT ENT ED: Denies rhinorrhea or sore throat Cardiovascular Cardiovascular: Denies chest pain or palpitations Respiratory/Chest Respiratory/Chest: Reports cough, dyspnea, excessive phlegm production, hemoptysis and sputum Gastrointestinal Gastrointestinal: Reports vomiting; Denies abdominal pain, diarrhea or nausea Genitourinary Genitourinary ED: Denies dysuria or hematuria Musculoskeletal Musculoskeletal: Denies back pain or neck pain Integumentary Denies abscess or rash Neurologic Neurologic: Denies headache(s), paresthesias or weakness Psychiatric Psychiatric: Denies anxiety or suicidal thoughts EXAM Physical Exam Const Vital Signs: 08/17/22 13:06 08/17/22 13:25 08/17/22 13:08 Temperature 97.8 F 98 F Temperature Source Temporal Temporal Pulse Rate 99 99 Respiratory Rate 16 24 H Respiratory Effort Short of Breath Respiratory Pattern Normal Blood Pressure 150/100 H 150/100 H Blood Pressure Mean 116 116 Pulse Ox 95 98 Oxygen Delivery Method Trach Collar Simple Mask Trach Collar Oxygen Flow Rate (L/min) 2 08/17/22 13:40 08/17/22 14:08 08/17/22 15:06 Temperature 97.8 F 97.8 F Temperature Source Temporal Temporal Pulse Rate 99 98 Respiratory Rate 16 18 Respiratory Effort Respiratory Pattern Blood Pressure 110/78 97/78 Blood Pressure Mean 88 84 Pulse Ox 95 99 94 Oxygen Delivery Method Room Air Room Air Oxygen Flow Rate (L/min) Positive well nourished and well developed General Appearance ED: well developed and NAD HEENT Reports moist mucous membranes normocephalic and atraumatic Eyes PERRL and EOMs intact bilaterally Neck full ROM, no lymphadenopathy, supple and no JVD Resp normal respiratory effort Resp Narrative: Coarse breath sounds throughout all lung russell, however patient has active sputum emanating from tracheostomy, and breath sounds are consistent with transmitted upper airway sounds. Cardio regular rate, regular rhythm and no murmurs GI non-tender and non-distended GI Narrative: PEG site benign nontender Auscultation: normoactive bowel sounds Palpation: soft Back/Spine no CVA tenderness General Back: other FROM Extremity normal to inspection General Extremety ED: Negative for edema, pulses abnormal or tenderness General Extremity: Negative for edema or pulses abnormal Neuro oriented x3, CN's II-XII intact bilaterally and no sensory deficits noted Sensorium / Orientation: awake and alert Motor Exam: strength 5/5 throughout Skin no rashes or lesions noted and no wounds MDM MDM MDM Narrative Medical decision making narrative: Discussed with Ms. Duran from oncology who knows the pt well. She states this patient has been treated with Keytruda, the last time he got it was in February, they gave him a treatment holiday this past April, then he started having bloody sputum in June, they did a CT that was showing pneumonitis, they thought it was related to the Keytruda, so he was started on high-dose steroids, and he needs a minimum of 6 weeks for that. So far he has been treated for about 8, but they have been tapering him since 2-3 weeks ago, and now he is having bloody sputum again. Certainly pulmonary embolus is in the differential, which we are evaluating him for, as his pneumonia, and/or some type of inflammatory pneumonitis that is noninfectious. Therefore started here with a D-dimer, basic labs, and a two-view chest x-ray. I also had respiratory perform deep tracheal suction and the were able to obtain a good sputum sample which we are sending for culture. 2 view chest x-ray my interpretation shows likely right middle lobe and left lower lobe infiltrates. However, D-dimer was elevated, and otherwise the labs show chronic renal insufficiency no worse than usual, but are otherwise unremarkable, so he was sent for CT angiography of the chest to evaluate for pulmonary embolism to get more details on his chest findings. I reviewed the images and the radiologist interpretation and I agree with it, negative for pulmonary embolus, metastases in the chest are stable, and a lingular infiltrate noted. Oncology wants us to increase his prednisone currently at 10 mg daily back up to 20 mg daily. We will do that in addition to placing him on Levaquin empirically to cover infection, which helped when he was diagnosed with aspiration pneumonitis before, but at this time his vital signs are stable and clinically he is doing well enough to be discharged home with close outpatient follow-up. They also would like him to follow-up with Dr. Baumann again, with whom he has been evaluated in the past, to reevaluate him for complication of his head neck cancer and/or fistula. This can be done as an outpatient. Of note, the patient did have about a 1 or 2-minute episode of tachycardia in the 150s for which she was asymptomatic, we printed the strip and it appeared to be some type of supraventricular narrow complex tachycardia, I suspect atrial fibrillation but unclear exactly what it was due to the rate. History & Record Review Discussion w/independent historian: Patient, Significant other and Other (Jodi Duran, hem-onc [employer] TESTER) Lab Data Attestation: I reviewed the patient's lab results. Labs: Laboratory Results - last 24 hr 08/17/22 08/17/22 08/17/22 13:48 13:48 13:48 WBC 6.9 RBC 3.71 L Hgb 11.7 L Hct 38.3 L MCV 103.2 H MCH 31.5 MCHC 30.5 L RDW Std Deviation 56.5 H RDW Coeff of Oz 14.7 H Plt Count 221 MPV 11.3 Immature Gran % (Auto) 0.600 Neut % (Auto) 77.8 H Lymph % (Auto) 11.4 L [place] % (Auto) 8.9 Eos % (Auto) 0.7 Baso % (Auto) 0.6 Absolute Neuts (auto) 5.4 Absolute Lymphs (auto) 0.79 L Nucleated RBC % 0 D-Dimer Quant (PE/DVT) 1.73 H* Sodium 145 Potassium 4.0 Chloride 111 H Carbon Dioxide 27.0 Anion Gap 7 BUN 54 H Creatinine 1.52 H Est GFR (MDRD) Af Amer 58 L Est GFR (MDRD) Non-Af 48 L BUN/Creatinine Ratio 35.5 H Glucose 116 H Calcium 9.2 Radiography Diagnostic Testing: Clinical Impression(s) from Imaging Studies Chest X-Ray 08/17/22 14:00 IMPRESSION: Bibasilar pulmonary infiltrates. Prominence of the left hilum. Radiographic follow-up is recommended. Electronically Signed: Joshua Schneider MD at 14:28 EDT , Chest CTA 08/17/22 14:36 IMPRESSION: No evidence of pulmonary embolism. Stable examination. Electronically Signed: Joshua Schneider MD at 15:34 EDT , Rhythm Strip Rhythm Strip: Sinus Rhythm Rate: 95 Ectopy: None Management Discussion w/another healthcare provider: Registration Officer Discharge Plan Triage Chief Complaint: Shortness of Breath ED Provider: Dmaián Patel Dx/Rx/DC Orders Clinical Impression: Pneumonitis, Cancer, metastatic to lung Prescriptions: New levofloxacin 750 mg tablet 750 mg PO Q24H Qty: 5 0RF Continued guaifenesin 200 mg/5 mL liquid 400 mg PO Q6H PRN (Reason: cough) Qty: 473 6RF omeprazole 20 mg capsule,delayed release(DR/EC) 20 mg PO DAILY fluconazole [Diflucan] 40 mg/mL suspension for reconstitution 200 mg PO DAILY Qty: 40 0RF Rx Instructions: 200 mg PO day 1, then 100 mg PO days x 13 Avastin 25 mg/mL Solution 25 mg intravitreal QMONTH lactose-reduced food with fibr 237 ML liquid 237 ml GT Q4H midodrine 5 mg Tablet 5 mg feeding tube TID Rx Instructions: do not give last dose of day after 6PM or within 4 hrs of bedtime gabapentin 300 mg capsule 300 mg feeding tube BID Rx Instructions: Via G-tube. potassium, sodium phosphates [Phos-NaK] 280-160-250 mg powder in packet See Rx Instructions .ROUTE .COMPLEX Qty: 90 1RF Dose Instruction: TAKE 1 PACKET BY MOUTH ONCE DAILY Rx Instructions: TAKE 1 PACKET BY MOUTH ONCE DAILY levothyroxine 50 mcg tablet See Rx Instructions .ROUTE .COMPLEX Qty: 90 5RF Dose Instruction: TAKE 1 TABLET BY MOUTH EVERY DAY Rx Instructions: TAKE 1 TABLET BY MOUTH EVERY DAY budesonide 0.5 mg/2 mL suspension for nebulization 0.5 mg inhalation BID Qty: 120 6RF ipratropium-albuterol 0.5 mg-3 mg(2.5 mg base)/3 mL solution for nebulization 3 ml inhalation Q4H PRN (Reason: shortness of breath or wheezing) Qty: 180 6RF Changed prednisolone sodium phosphate 15 mg/5 mL (5 mL) solution 20 mg PO DAILY Qty: 250 0RF Primary Care Provider: Alejandro Liu Referrals: Luis Baumann MD [Med Staff - Active Staff] - As soon as possible Jodi Busch NP, [employer] [Med Staff - Adv Practice Prof] - As soon as possible Alejandro Liu PA [Primary Care Provider] - Activity Restrictions/Additional Instructions: We sent a culture of the sputum you coughed out, your doctor may review the results likely after the weekend. Disposition Disposition: Home, Self Care
--- NOTE | 2022-08-17 14:00 | RAD_ITS ---
STUDY: X-RAY CHEST REASON FOR EXAM: Male, 77 years old. Cough, sob, cancer/trach TECHNIQUE: PA and lateral views of the chest. COMPARISON: Comparison is made with prior study dated April 04, 2022. FINDINGS: A tracheostomy tube is in situ. The tip is at 6.3 cm proximal to the elva. A left-sided portacatheter is seen with the tip in the right atrium. EKG electrodes are seen. Hyperinflation. Patchy bibasilar infiltrates. Normal size heart. Prominence of the left hilum. Radiographic follow-up is recommended. Normal visualized pulmonary arteries. There is atherosclerotic calcification of the aortic arch with tortuosity. There are diffuse degenerative changes of the visualized thoracic spine. Normal visualized ribs, clavicles, and shoulders. There is no demonstrated abnormality of the visualized soft tissue structures of the upper abdomen. RAD/Chest PA and Lateral IMPRESSION: Bibasilar pulmonary infiltrates. Prominence of the left hilum. Radiographic follow-up is recommended. Electronically Signed: Joshua Schneider MD at 14:28 EDT ,
[2022-08-17 14:08] LABS: Absolute Lymphocyte Count 0.79 X10^3/uL (0.83-4.51); Absolute Neutrophil Count 5.4 X10^3/uL (2.0-7.7); Basophil# 0.04 X10^3/uL; Basophil% 0.6 % (0-1); Eosinophil# 0.05 X10^3/uL; Eosinophils% 0.7 % (0-5); Hematocrit 38.3 % (40-54); Hemoglobin 11.7 g/dL (13.0-16.5); Lymphocyte # 0.79 X10^3/ul (0.83-4.51); Lymphocyte % 11.4 % (19-41); Mean Corp Hgb Conc 30.5 g/dL (32-36); Mean Corpuscular Hgb 31.5 pg (27.0-32.0); Mean Corpuscular Volume 103.2 fL (80-94); Mean Platelet Vol. 11.3 fl (6.2-12.0); Monocyte# 0.62 X10^3/uL; Monocyte% 8.9 % (0-10); NRBC Flagged by Analyzer 0 % (0-5); Neutrophil # 5.39 X10^3/uL (2.7-7.7); Neutrophil % 77.8 % (47-70); Platelet Count 221 K/mm3 (150-450); RBC Distribution Width CV 14.7 % (11.6-14.6); RBC Distribution Width SD 56.5 fl (35.1-43.9); Red Blood Count 3.71 M/mm3 (4.6-6.2); White Blood Count 6.9 K/mm3 (4.4-11.0)
[2022-08-17 14:25] LABS: Anion Gap 7 (5-15); BUN 54 mg/dL (7-18); BUN/Creat Ratio 35.5 RATIO (10-20); Calcium,Total 9.2 mg/dL (8.5-10.1); Chloride 111 mmol/L (98-107); Creatinine, Serum 1.52 mg/dL (0.70-1.30); EST Glomerular Filtration Rate 48 mL/min (>60); Est Glom Filt Rate - Afr Amer 58 mL/min (>60); Glucose 116 mg/dL (74-106); Sodium Level 145 mmol/L (136-145)
[2022-08-17 14:30] LABS: D-Dimer Quantitative (DVT/PE) 1.73 FEU/ug/m (0.27-0.49)
--- NOTE | 2022-08-17 14:36 | CT_ITS ---
STUDY: CTA CHEST REASON FOR EXAM: Male, 77 years old. Hemoptysis, hx head/neck ca w/ chest mets, abn d-d RADIATION DOSAGE (If Supplied By Facility): CTDIvol = ( 17.36 ) mGy, DLP = ( 389.05 ) mGycm TECHNIQUE: The examination was performed with the intravenous administration of IV 75mL Isovue-370. Post-processing of the angiographic images was performed, with multiplanar reformation and 3D reconstruction. Individualized dose optimization techniques were used for this CT. COMPARISON: Comparison is made with prior study dated June 21, 2022. FINDINGS: A tracheostomy tube is seen. The tip is at approximately 4 cm above the elva. Normal enhancement of the main pulmonary artery and right and left pulmonary arteries. Normal enhancement of the bilateral peripheral pulmonary arteries. There is no demonstrated pulmonary embolism. There is atherosclerotic calcification of the aortic arch with tortuosity. There is no demonstrated aortic dissection. Normal heart and pericardium. Mild enlarged mediastinal lymph nodes. Normal hilar regions. Normal visualized trachea and bronchi. Hyperinflation. Stable mass lesion in the superior segment of the right lower lobe as well as scattered nodules in the right lung. Patchy infiltrate in the lingular segment of the left upper lobe. Stable scarring and bronchiectasis in the left lower lobe. Normal pleura. Normal chest wall structures. There are degenerative changes of thoracic spine. Normal visualized upper abdomen. CT/CTA Chest W/WO Contrast IMPRESSION: No evidence of pulmonary embolism. Stable examination. Electronically Signed: Joshua Schneider MD at 15:34 EDT ,
== END 2022-08-17 15:56 | disposition home or self-care (01) ==
PROVIDERS: Emergency Provider Emergency Medicine; PCP Physician Assistant; Visit Provider Emergency Medicine
DX: J18.9 Pneumonia, unspecified organism (principal); C78.00 Secondary malignant neoplasm of unspecified lung; Z93.0 Tracheostomy status; Z93.1 Gastrostomy status; Z87.891 Personal history of nicotine dependence; E07.9 Disorder of thyroid, unspecified; Z79.899 Other long term (current) drug therapy; Z79.51 Long term (current) use of inhaled steroids
CPT/HCPCS: 31720; 36591; 71046; 71275; 80048; 85025; 85379; 87070; 87077; 87186; 87205; 87428; 99283; J7040; Q9967; A4216

== ENCOUNTER → 2022-11-09 | Outpatient (CLI) | payer MEDICARE, OTHER, SELFPAY ==
--- NOTE | 2022-11-09 08:29 | CT_ITS ---
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 TECHNIQUE: Helically acquired images were obtained of the chest and abdomen after the intravenous administration of 100mL Isovue-370. No oral contrast was administered. 2-D reformatted images provided. A radiation dose optimization technique was used for this scan. 1189 images. COMPARISON: CTA 06/21/2022, PET-CT 08/30/2021. FINDINGS: Chest: LARGE AIRWAYS: Tracheostomy tube tip at the level of the clavicular heads. Trace linear inspissated material and fluid in the central airways. Mildly patulous esophagus. LUNGS: Mild biapical scarring. Spiculated 5 mm left upper lobe nodule on image 52/136, previously 2 mm. New 6 mm nodular opacities in the left upper lobe posteriorly image 71. Increased mucous plugging and nodular left lower lobe opacity and consolidation. 3 mm irregular right upper lobe nodule medially on image 34. 5 mm spiculated right upper lobe nodule on image 48. Decreased patchy consolidation in the right middle lobe with residual 5 mm irregular nodule laterally. 7 mm spiculated right lower lobe nodule on image 84, markedly decreased in size from prior. Possible small pulmonary venous varix in the left lower lobe. Calcified left upper and bilateral lower lobe granulomas. PLEURA: Mild left pleural effusion again seen. HEART AND PERICARDIUM: Heart within normal limits in size. No significant pericardial effusion. VESSELS: No thoracic aortic aneurysm or dissection flap. Mild atherosclerosis. No large central central pulmonary embolism although study not performed with the pulmonary embolism protocol. Left chest wall port with catheter tip in the high right atrium. MEDIASTINUM AND PRANAV: Mildly enlarged paratracheal and precarinal lymph nodes again seen. Subcarinal lymph nodes measuring up to 1 x 2 cm, previously 1.8 x 3 cm. Small calcified left hilar lymph nodes. BONES: Stable small sclerotic focus in the T1 vertebral body. Abdomen: BOWEL: Percutaneous gastrostomy tube in place. Small bowel nondilated. Moderate stool in the colon. PERITONEUM: No significant free fluid or pathologically enlarged lymph nodes. Stable small right retrocrural lymphatic cystic structure. LIVER: Multiple cysts measuring up to 2 cm again seen. GALLBLADDER/BILIARY TREE: Contracted gallbladder. SPLEEN: Nonenlarged. Calcified granulomas. PANCREAS/ADRENAL GLANDS: No focal lesions. KIDNEYS: Stable 2.7 cm right renal cyst. 7 mm left renal calculus without hydronephrosis again seen. VESSELS: Stable 2.3 cm ectasia of the infrarenal abdominal aorta with mild atherosclerosis. BONES: Degenerative change and osteopenia without suspicious osteoblastic or osteolytic lesion. CT/CT Chest AND Abd W/ Contrast IMPRESSION: Increased patchy left lower lobe consolidation with bronchiectasis and mucous plugging, concerning for worsening pneumonia or aspiration pneumonitis. Chronic mild left pleural effusion. Mild interval change in pattern of spiculated nodular opacities and patchy consolidation in the bilateral lungs, which may be infectious or inflammatory but recommend close short-term follow-up to assess for pulmonary metastases. Mildly decreased mediastinal lymphadenopathy. Stable osteoblastic metastasis or benign sclerosis in the T1 vertebral body. No evidence for metastatic disease in the abdomen. Chronic hepatic and renal cysts as above. Nonobstructing left renal calculus. Electronically Signed: Eva Pena MD at 14:42 EDT ,
[2022-11-09 08:56] LABS: CREATININE FINGERSTICK 1.2 mg/dL (0.70-1.30)
== END | disposition home or self-care (01) ==
LOC: CT 08:27
PROVIDERS: PCP Physician Assistant; Referring Provider Nurse Practitioner Family; Visit Provider Nurse Practitioner Family
DX: C13.9 Malignant neoplasm of hypopharynx, unspecified (principal); C78.00 Secondary malignant neoplasm of unspecified lung
CPT/HCPCS: 71260; 74160; 96360; 96361; J7030; Q9967; A4216

== ENCOUNTER 2022-12-12 20:00 | Inpatient (IN) | payer MEDICARE, OTHER, SELFPAY ==
--- NOTE | 2022-12-12 20:04 | EKG12_ITS ---
Test Reason : Blood Pressure : / mmHG Vent. Rate : 176 BPM Atrial Rate : 000 BPM P-R Int : 000 ms QRS Dur : 142 ms QT Int : 268 ms P-R-T Axes : 000 -07 042 degrees QTc Int : 458 ms Critical Test Result: High HR , Arrhythmia ATRIAL FIBRILLATION Non-specific intra-ventricular conduction block Minimal voltage criteria for LVH, may be normal variant ( [place] product ) T wave abnormality, consider anterior ischemia Abnormal ECG Confirmed by VALENCIA PALOMO, AKIL ([id number]), fashion editor JOSÉ ARROYO ([id number]) on 12/14/2022 1:54:59 PM Referred By: Confirmed By:AKIL BIRMINGHAM MD
[2022-12-12 20:14] LABS: Absolute Lymphocyte Count 0.84 X10^3/uL (0.83-4.51); Absolute Neutrophil Count 6.5 X10^3/uL (2.0-7.7); Basophil# 0.02 X10^3/uL; Basophil% 0.3 % (0-1); Eosinophil# 0.01 X10^3/uL; Eosinophils% 0.1 % (0-5); Hemoglobin 11.3 g/dL (13.0-16.5); Lymphocyte # 0.84 X10^3/ul (0.83-4.51); Lymphocyte % 10.8 % (19-41); Mean Corp Hgb Conc 29.7 g/dL (32-36); Mean Corpuscular Volume 104.4 fL (80-94); Mean Platelet Vol. 11.2 fl (6.2-12.0); Monocyte# 0.39 X10^3/uL; NRBC Flagged by Analyzer 0 % (0-5); Neutrophil # 6.48 X10^3/uL (2.7-7.7); Neutrophil % 83.2 % (47-70); Platelet Count 196 K/mm3 (150-450); RBC Distribution Width CV 15.3 % (11.6-14.6); Red Blood Count 3.64 M/mm3 (4.6-6.2); White Blood Count 7.8 K/mm3 (4.4-11.0)
[2022-12-12 20:15] VITALS: BP 105/71; PULSE 143; RESP 22; TEMP 37.4; O2SAT 94; BMI 19.3
[2022-12-12 20:20] VITALS: PULSE 181; RESP 23; O2SAT 94
[2022-12-12 20:22] VITALS: O2SAT 96
[2022-12-12 20:26] LABS: Anion Gap 6 (5-15); BUN 38 mg/dL (7-18); BUN/Creat Ratio 23.2 RATIO (10-20); Calcium,Total 7.9 mg/dL (8.5-10.1); Chloride 114 mmol/L (98-107); Creatinine, Serum 1.64 mg/dL (0.70-1.30); EST Glomerular Filtration Rate 44 mL/min (>60); Est Glom Filt Rate - Afr Amer 53 mL/min (>60); Estimated Creatinine Clearance 33.74 ml/min; Glucose 124 mg/dL (74-106); Potassium 3.9 mmol/L (3.5-5.1); Sodium Level 144 mmol/L (136-145)
--- NOTE | 2022-12-12 20:37 | RAD_ITS ---
STUDY: X-RAY CHEST REASON FOR EXAM: Male, 77 years old. shortness of breath TECHNIQUE: Single frontal view of the chest. COMPARISON: October 05, 2022 FINDINGS: Lungs are hyperaerated. Trach tube unchanged. Left subclavian MediPort catheter terminates in the right atrium. Bibasilar airspace unchanged. There is no demonstrated pleural abnormality. Normal size heart. Normal mediastinum and anival. Normal visualized pulmonary arteries. Normal visualized aortic arch and descending thoracic aorta. Normal visualized thoracic spine. Normal visualized ribs, clavicles, and shoulders. There is no demonstrated abnormality of the visualized soft tissue structures of the upper abdomen. RAD/Chest 1 View (Portable) IMPRESSION: Bibasilar airspace is unchanged. COPD. Electronically Signed: Luis Finney MD at 21:12 EDT ,
[2022-12-12] MEDS: 0.9% Normal Saline 1,000 ML 1000 ML IV (21:06)
[2022-12-12 21:23] LABS: International Normalized Ratio 1.2; Prothrombin Time (Protime)PT. 14.9 SECONDS (11.7-14.9)
[2022-12-12 21:24] LABS: Partial Thromboplast Time 54.2 Seconds (24.1-36.2)
[2022-12-12 21:26] VITALS: BP 95/78; PULSE 127; RESP 30; O2SAT 95
[2022-12-12 21:34] LABS: Lactic Acid 1.2 mmol/L (0.4-1.9)
[2022-12-12 22:08] VITALS: BP 103/72; PULSE 134; RESP 33; O2SAT 92
--- NOTE | 2022-12-12 23:15 | EDS_ITS ---
HPI History of Present Illness Chief Complaint: Shortness of Breath Informant: patient Onset/Context/Timing Onset: Weeks (1) Context: gradual Timing: Continuous Quality: Positive for Dyspnea on exertion Worsened by: Nothing Relieved by: Nothing Associated Symptoms Chest Pain: Positive for None Narrative Narrative: Patient presents with shortness of breath that has been getting worse over the past week. Patient states it is gradually getting worse. Patient states it is worse with any exertion. Patient admits to a fever of 100.1 at home. Patient admits to a cough with occasional sputum production. Patient states that his coughing induces nausea and vomiting. Patient denies any urinary complaints. Patient states he feels weak all over. Patient comes in twice a week for infusion of fluids due to frequent dehydration. PE Risk Factors: Positive for Cancer; Negative for OCP + Smoking + > 35, Prior DVT or PE, Recent immobilization, Recent surgery or Recent travel [facility] Medical History (Updated 12/13/22 @ 01:[address] 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 Shortness of breath on exertion Thrush, oral Tracheostomy in place tracheotomy and laryngeal biopsy Wears glasses Home Medications lactose-reduced food with fiber 0.06 gram-1.5 kcal/mL oral liquid 237 ml G-tube Q4H nutrition 09/09/18 [History Last Taken 04/19/22] midodrine 5 mg tablet 5 mg feeding tube TID 04/17/22 [History Last Taken 04/20/22 06:00] guaifenesin 200 mg/5 mL oral liquid 400 mg (10 mL) PO Q6H PRN cough #473 mL 06/05/22 [Rx Last Taken Unknown] levothyroxine 50 mcg tablet See Rx Instructions .Route .COMPLEX #90 TABLETS 06/22/22 [Rx Last Taken Unknown] omeprazole 20 mg capsule,delayed release 20 mg PO DAILY 06/25/22 [History Last Taken Unknown] bevacizumab 25 mg/mL intravenous solution (Avastin) 25 mg intravitreal QMONTH 08/10/22 [History Last Taken Unknown] budesonide 0.5 mg/2 mL suspension for nebulization 0.5 mg (2 mL) inhalation BID #120 mL 08/13/22 [Rx Last Taken Unknown] ipratropium 0.5 mg-albuterol 3 mg (2.5 mg base)/3 mL nebulization soln 3 ml inhalation Q4H PRN shortness of breath or wheezing #180 mL 08/14/22 [Rx Last Taken Unknown] rybkddfayxlze-AH-khbkuixezgi 2.5 mg-5 mg-50 mg/5 mL oral liquid (Robitussin Cough and Cold CF) 15 ml PO Q4H PRN cold symptoms #118 mL 10/05/22 [Rx Last Taken Unknown] ondansetron 8 mg disintegrating tablet 8 mg PO Q8H PRN nausea and vomiting #30 tabs 11/13/22 [Rx Last Taken Unknown] gabapentin 300 mg capsule 300 mg feeding tube BID #60 caps 11/30/22 [Rx Last Taken Unknown] lidocaine-prilocaine 2.5 %-2.5 % topical cream 50 g topical ONCE #30 grams 11/30/22 [Rx Last Taken Unknown] prednisolone sodium phosphate 15 mg/5 mL (5 mL) oral solution 15 mg (5 mL) PO DAILY #250 mL 12/03/22 [Rx Last Taken Unknown] sulfamethoxazole 200 mg-trimethoprim 40 mg/5 mL oral suspension 20 ml PO BID #473 mL 12/07/22 [Rx Last Taken Unknown] Allergy/AdvReac Type Severity Reaction Status Date / Time venom-wasp Allergy Anaphylaxis Verified 12/07/22 09:54 pseudoephedrine HCl AdvReac Severe Unknown Verified 12/07/22 09:54 [From Sudafed] Antihistamines - Alkylamine AdvReac Mild Other Verified 12/07/22 09:54 Family History Father Colon cancer Hypertension Mother Hypertension Surgical History (Updated 12/13/22 @ 00:[address] Candi Matthews MD) History of surgery Hx of tonsillectomy S/P percutaneous endoscopic gastrostomy (PEG) tube placement S/P TURP Social History household members: spouse Smoking Status: Former smoker quit date: 04/08/17 pack-years: 55 alcohol intake: never substance use type: does not use ROS ROS ED Constitutional Constitutional ED: Reports fever(s); Denies chills Eyes Eyes: Denies blurry vision or change in vision ENT ENT ED: Denies rhinorrhea or sore throat Cardiovascular Cardiovascular: Denies chest pain or palpitations Respiratory/Chest Respiratory/Chest: Reports cough and dyspnea Gastrointestinal Gastrointestinal: Reports nausea and vomiting Genitourinary Genitourinary ED: Denies dysuria or hematuria Musculoskeletal Musculoskeletal: Denies back pain or neck pain Integumentary Denies abscess or rash Neurologic Neurologic: Reports weakness; Denies headache(s) Allergic/Immunologic Allergic/Immunologic ED: Denies mouth swelling or urticaria EXAM Physical Exam Const Vital Signs: 12/12/22 20:15 12/12/22 20:20 12/12/22 20:20 Temperature 99.3 F H Temperature Source Temporal Pulse Rate 143 H 181 H Respiratory Rate 22 H 23 H Respiratory Effort Respiratory Pattern Blood Pressure 105/71 Blood Pressure Mean 82 Pulse Ox 94 94 Oxygen Delivery Method Nasal Cannula Nasal Cannula Nasal Cannula Oxygen Flow Rate (L/min) 6 6 12/12/22 20:20 12/12/22 20:22 12/12/22 21:26 Temperature Temperature Source Pulse Rate 127 H Respiratory Rate 23 H 30 H Respiratory Effort Short of Breath Respiratory Pattern Tachypnea Blood Pressure 95/78 Blood Pressure Mean 83 Pulse Ox 94 95 Oxygen Delivery Method Nasal Cannula Nasal Cannula Nasal Cannula Oxygen Flow Rate (L/min) 6 6 12/12/22 22:08 Temperature Temperature Source Pulse Rate 134 H Respiratory Rate 33 H Respiratory Effort Respiratory Pattern Blood Pressure 103/72 Blood Pressure Mean 82 Pulse Ox 92 Oxygen Delivery Method Trach Collar Oxygen Flow Rate (L/min) Positive cachectic General Appearance ED: cachectic and NAD Nutritional Appearance: cachectic HEENT Reports moist mucous membranes Neck supple and no JVD Resp Auscultation: wheezes and diminished lung sounds Cardio regular rhythm Rate: tachycardic GI normal to inspection, nondistended, normoactive bowel sounds and non-tender Palpation: soft Extremity normal to inspection General Extremety ED: Negative for edema or tenderness General Extremity: Negative for edema Neuro oriented x3, CN's II-XII intact bilaterally and no sensory deficits noted Sensorium / Orientation: alert Motor Exam: strength 5/5 throughout Psych mental status grossly normal Skin no rashes or lesions noted MDM MDM MDM Narrative Medical decision making narrative: Differential diagnosis includes pneumonia, aspiration, cardiac dysrhythmia, card iac ischemia, congestive heart failure, pneumothorax, COPD exacerbation, dehydration, and anxiety. EKG will be obtained to assess for cardiac dysrhythmia and cardiac ischemia. Chest x-ray will be obtained to assess for pneumonia and pneumothorax. CBC will be obtained to assess for leukocytosis and anemia. Basic metabolic profile will be obtained to assess for electrolyte abnormality and renal function. Serum lactate will be obtained to assess for sepsis. PT with INR and PTT will be obtained to assess for coagulopathy. COVID-19 rapid antigen will be obtained to assess for COVID-19 infection. Blood cultures will be obtained to assess for sepsis. Lab Data Attestation: I reviewed the patient's lab results. Lab results narrative: CBC was reviewed. There is a mild anemia with a hemoglobin of 11.3 and hematocrit of 38.0. Basic metabolic profile was reviewed. BUN was 38 and creatinine was 1.64. These are consistent with prior results. PT with INR and PTT were reviewed. Pro time was 14.9 INR is 1.2. PTT was 54.2. Serum lactate was reviewed and was normal at 1.2. Labs: Laboratory Results - last 24 hr 12/12/22 12/12/22 20:05 21:01 WBC 7.8 RBC 3.64 L Hgb 11.3 L Hct 38.0 L MCV 104.4 H MCH 31.0 MCHC 29.7 L RDW Std Deviation 59.0 H RDW Coeff of Oz 15.3 H Plt Count 196 MPV 11.2 Immature Gran % (Auto) 0.600 Neut % (Auto) 83.2 H Lymph % (Auto) 10.8 L [place] % (Auto) 5.0 Eos % (Auto) 0.1 Baso % (Auto) 0.3 Absolute Neuts (auto) 6.5 Absolute Lymphs (auto) 0.84 Nucleated RBC % 0 PT 14.9 INR 1.2 APTT 54.2 H Sodium 144 Potassium 3.9 Chloride 114 H Carbon Dioxide 24.0 Anion Gap 6 BUN 38 H Creatinine 1.64 H Estim Creat Clear Calc 33.74 Est GFR (MDRD) Af Amer 53 L Est GFR (MDRD) Non-Af 44 L BUN/Creatinine Ratio 23.2 H Glucose 124 H Lactic Acid 1.2 Calcium 7.9 L Radiography Chest X-Ray - ED: 1 View, Read by ED Physician, Read by Radiologist, Unchanged and Chronic Changes CTA PE Study: No Evidence of PE and No Evidence of Dissection Diagnostic Testing: Clinical Impression(s) from Imaging Studies Chest X-Ray 12/12/22 20:37 IMPRESSION: Bibasilar airspace is unchanged. COPD. Electronically Signed: Luis Finney MD at 21:12 EDT , Chest CTA 12/12/22 23:27 IMPRESSION: No pulmonary embolism. Tracheostomy with mucous plugging of left lower lobe bronchus. Mild debris in the trachea at the elva. Bilateral patchy airspace consolidations predominantly in dependent locations in both lungs are concerning for secondary pneumonia. Other scattered central and peripheral nodular opacities are nonspecific, likely infectious given larger consolidations. CT follow-up recommended after treatment to exclude underlying malignancy. Electronically Signed: Gage Jara MD at 1:07 EDT , Portable 1 view chest x-ray was obtained. On my independent interpretation, lung russell show bibasilar airspace disease and COPD. This is unchanged compared to previous chest x-ray dated 09/08/2022. There is normal cardiac silhouette. Bony thorax is normal. There is no acute process noted. Radiologist also interpreted the x-ray and agrees. CTA of the chest was obtained. There is mucous plugging of the left lower lobe bronchus. There is mild debris in the trachea at the elva. There are bilateral airspace consolidations concerning for pneumonia. There are other scattered central and peripheral opacities which are nonspecific but likely infectious. There is no evidence of pulmonary embolism or aortic dissection. This was interpreted by the radiologist and was also independently reviewed by myself. EKG Initial EKG: Attestation: I personally reviewed and interpreted this EKG as follows: Interpretation: Non-Specific ST Changes Comments: EKG was obtained. On my independent interpretation, it shows supraventricular tachycardia with a rate of 176. QRS interval is 142 ms. QTc interval was 458 ms. Imbler was normal. There are nonspecific ST-T wave changes. These are likely rate related. Additional Tests and Interventions Additional Tests or Interventions: Because of the persistent tachycardia and tachypnea, CTA of the chest will be obtained. Treatment and Re-Evaluation :: Patient was given IV fluids. On my examination, patient initially had a supraventricular tachycardia with a rate in the 170s. However while I was examining the patient he converted to a sinus tachycardia in the 120s. Patient's heart rate continued to fluctuate between normal sinus rhythm and occasional SVT. Patient's blood pressure dropped into the 90s however, patient vomited his midodrine earlier tonight and has not had any other doses. Patient's blood pressure improved after IV fluids. Blood cultures were obtained and are pending. Patient has a history of MRSA pneumonia. Because of this patient was started on Rocephin, Zithromax, and vancomycin. Case will be discussed with the hospitalist for admission. Discharge Plan Triage Chief Complaint: Shortness of Breath ED Provider: Ki Hearn Dx/Rx/DC Orders Clinical Impression: Paroxysmal supraventricular tachycardia, Tracheostomy in place, Pneumonia Prescriptions: No Action guaifenesin 200 mg/5 mL liquid 400 mg PO Q6H PRN (Reason: cough) Qty: 473 6RF omeprazole 20 mg capsule,delayed release(DR/EC) 20 mg PO DAILY prednisolone sodium phosphate 15 mg/5 mL (5 mL) solution 15 mg PO DAILY Qty: 250 4RF sulfamethoxazole-trimethoprim 200-40 mg/5 mL suspension 20 ml PO BID Qty: 473 0RF Avastin 25 mg/mL Solution 25 mg intravitreal QMONTH lactose-reduced food with fibr 237 ML liquid 237 ml GT Q4H midodrine 5 mg Tablet 5 mg feeding tube TID Rx Instructions: do not give last dose of day after 6PM or within 4 hrs of bedtime levothyroxine 50 mcg tablet See Rx Instructions .ROUTE .COMPLEX Qty: 90 5RF Dose Instruction: TAKE 1 TABLET BY MOUTH EVERY DAY Rx Instructions: TAKE 1 TABLET BY MOUTH EVERY DAY budesonide 0.5 mg/2 mL suspension for nebulization 0.5 mg inhalation BID Qty: 120 6RF ipratropium-albuterol 0.5 mg-3 mg(2.5 mg base)/3 mL solution for nebulization 3 ml inhalation Q4H PRN (Reason: shortness of breath or wheezing) Qty: 180 6RF Robitussin Cough and Cold CF 2.5-5-50 mg/5 mL liquid 15 ml PO Q4H PRN (Reason: cold symptoms) Qty: 118 1RF ondansetron 8 mg tablet,disintegrating 8 mg PO Q8H PRN (Reason: nausea and vomiting) Qty: 30 0RF gabapentin 300 mg capsule 300 mg feeding tube BID Qty: 60 11RF Rx Instructions: Via G-tube. lidocaine-prilocaine 2.5-2.5 % cream 50 g topical ONCE Qty: 30 3RF Primary Care Provider: Alejandro Liu Referrals: Alejandro Liu PA [Primary Care Provider] - Disposition Disposition: [facility]
--- NOTE | 2022-12-12 23:27 | CT_ITS ---
STUDY: CTA CHEST REASON FOR EXAM: Male, 77 years old. Dyspnea RADIATION DOSAGE (If Supplied By Facility): CTDIvol = ( 15.02 ) mGy, DLP = ( 464.78 ) mGycm TECHNIQUE: The examination was performed with the intravenous administration of IV 75mL Isovue-370. Post-processing of the angiographic images was performed, with multiplanar reformation and 3D reconstruction. Individualized dose optimization techniques were used for this CT. COMPARISON: November 09, 2022. FINDINGS: Tracheostomy tube in expected position without surrounding fluid collection or inflammation. Normal enhancement of the main pulmonary artery and right and left pulmonary arteries. Normal enhancement of the bilateral peripheral pulmonary arteries. There is no demonstrated pulmonary embolism. Aortic atherosclerosis without ectasia or dissection. Pectus excavatum with left cardiac deviation. No gross cardiomegaly. No pericardial effusion. Severe multivessel coronary atherosclerosis No mediastinal or hilar adenopathy. Unremarkable esophagus. Dependent debris within the trachea at the elva. Left lower lobe endobronchial debris. Atelectasis and consolidation throughout much of the left lower lobe with similar consolidations within the dependent upper lobes, dependent middle lobe, and scattered throughout the right lower lobe. Scattered small nodular consolidation within the lateral upper lobes. Somewhat spiculated 0.9 x 0.5 x 1.0 cm nodular consolidation in the mid lower right upper lobe, axial image 122 and series 604 image 82. Mild bilateral peribronchial thickening.. Normal osseous structures. Normal visualized upper abdomen. CT/CTA Chest W/WO Contrast IMPRESSION: No pulmonary embolism. Tracheostomy with mucous plugging of left lower lobe bronchus. Mild debris in the trachea at the elva. Bilateral patchy airspace consolidations predominantly in dependent locations in both lungs are concerning for secondary pneumonia. Other scattered central and peripheral nodular opacities are nonspecific, likely infectious given larger consolidations. CT follow-up recommended after treatment to exclude underlying malignancy. Electronically Signed: Gage Jara MD at 1:07 EDT ,
[2022-12-13] VITALS (16 sets, daily range): BP systolic 88–132; BP diastolic 56–80; PULSE 70–109; RESP 14–26; TEMP 36.2–37.2; O2SAT 91–98; BMI 18.7
--- NOTE | 2022-12-13 01:15 | ED.RN ---
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 THIS RN WATCHED PATIENTS HR RETURN TO NORMAL SHORTLY AFTER. PT DENIES ANY SYMPTOMS.
[2022-12-13] MEDS: Ipratropium/Albuterol Sulfate 3 ML AMPUL.NEB INHALATION (01:22)
--- NOTE | 2022-12-13 01:24 | HP.PCM.HOS_ITS ---
HPI - General General Date of Admission: 12/13/22 Date of Service: 12/13/22 Chief Complaint: Dyspnea, cough, fever. HPI Narrative The patient is a 77 y/o M w/ PMHx: CKD stage III unclear subtype, Metastatic Hypopharyngeal cancer stage IV Dx 08/2016 s/p tracheostomy/G-tube treated with Erbitux, Cisplatin and 5FU with radiation therapy w/ disease progression initiated on Keytruda in 2015 with 2016 PET/CT scan with noted complete response of previous noted metastatic disease in the lungs/lymph nodes with Keytruda held since 02/06/2022 secondary to history of UTI with urinary retention issues status post TURP 04/20/2022, history of multifocal pneumonitis maintained on chronic low-dose steroids following with Dr. Polo, COPD w/ Chronic hypoxic respiratory failure 2-4L NC, Chronic aspiration w/ dysphagia s/p G-tube as noted, Former tobacco use, Severe protein calorie malnutrition who presents to the [facility] ED on 12/13/22 with history of worsening dyspnea, worse with exertion over the last week with elevated temperature at home reported 100.1 with cough with occasionally productive sputum with severe bouts of coughing inducing nausea and emesis with increased fatigue and malaise with ongoing issues with dehydration necessitating twice weekly IV fluid infusions prompting ED evaluation. Work-up in the ED included T99.3, heart rate 143 increasing up to 191, most recently 134, BP 105/71 with most recent repeat 103/72, respiratory rate 94% initially on 6 L nasal cannula eventually transition to trach collar and noted to be 92%, CBC wit h WBC 7.8, hemoglobin 0.3, MCV 104.4, platelet 196 without marked shift, coags not marked appearing aside PTT 54.2, BMP with chloride 114, BUN/creatinine 38/1.64, lactic acid 1.2, chest x-ray with bibasilar airspace disease unchanged from prior with chronic COPD, CTPA with no evidence of pulmonary emboli, tracheostomy with mucous plugging left lower lobe bronchus, mild debris trachea at the elva, bilateral patchy airspace consolidations predominantly dependent locations both lungs concerning for secondary pneumonia, scattered central peripheral nodular opacities nonspecific likely infectious given large consolidations, rapid SARS COVID antigen negative, EKG with SVT with a rate [address]-T wave changes however while patient was being evaluated by ED physician reportedly converted to sinus tachycardia with rate in the 120s. In the ED patient ministered 2 L normal saline as well as gabapentin 300 mg x 1, IV vancomycin, DuoNeb therapy, azithromycin 500 mg IV x1 as well as Rocephin 2 g IV x1. Blood culture x2 pending per ED, sputum culture obtained and pending per ED. 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) use of systemic steroids Long-term use of high-risk medication Neuropathy On home oxygen therapy Pneumonia Pneumonitis 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 Shortness of breath on exertion Thrush, oral Tracheostomy in place tracheotomy and laryngeal biopsy Wears glasses Home Medications lactose-reduced food with fiber 0.06 gram-1.5 kcal/mL oral liquid 237 ml G-tube Q4H nutrition 09/09/18 [History Last Taken 04/19/22] midodrine 5 mg tablet 5 mg feeding tube TID 04/17/22 [History Last Taken 04/20/22 06:00] guaifenesin 200 mg/5 mL oral liquid 400 mg (10 mL) PO Q6H PRN cough #473 mL 06/05/22 [Rx Last Taken Unknown] levothyroxine 50 mcg tablet See Rx Instructions .Route .COMPLEX #90 TABLETS 06/22/22 [Rx Last Taken Unknown] omeprazole 20 mg capsule,delayed release 20 mg PO DAILY 06/25/22 [History Last Taken Unknown] bevacizumab 25 mg/mL intravenous solution (Avastin) 25 mg intravitreal QMONTH 08/10/22 [History Last Taken Unknown] budesonide 0.5 mg/2 mL suspension for nebulization 0.5 mg (2 mL) inhalation BID #120 mL 08/13/22 [Rx Last Taken Unknown] ipratropium 0.5 mg-albuterol 3 mg (2.5 mg base)/3 mL nebulization soln 3 ml inhalation Q4H PRN shortness of breath or wheezing #180 mL 08/14/22 [Rx Last Taken Unknown] kzsfrhtkxnmsf-BD-lguwlfszmsk 2.5 mg-5 mg-50 mg/5 mL oral liquid (Robitussin Cough and Cold CF) 15 ml PO Q4H PRN cold symptoms #118 mL 10/05/22 [Rx Last Taken Unknown] ondansetron 8 mg disintegrating tablet 8 mg PO Q8H PRN nausea and vomiting #30 tabs 11/13/22 [Rx Last Taken Unknown] gabapentin 300 mg capsule 300 mg feeding tube BID #60 caps 11/30/22 [Rx Last Taken Unknown] lidocaine-prilocaine 2.5 %-2.5 % topical cream 50 g topical ONCE #30 grams 11/30/22 [Rx Last Taken Unknown] prednisolone sodium phosphate 15 mg/5 mL (5 mL) oral solution 15 mg (5 mL) PO DAILY #250 mL 12/03/22 [Rx Last Taken Unknown] sulfamethoxazole 200 mg-trimethoprim 40 mg/5 mL oral suspension 20 ml PO BID #473 mL 12/07/22 [Rx Last Taken Unknown] Allergy/AdvReac Type Severity Reaction Status Date / Time venom-wasp Allergy Anaphylaxis Verified 12/07/22 09:54 pseudoephedrine HCl AdvReac Severe Unknown Verified 12/07/22 09:54 [From [facility]] Antihistamines - Alkylamine AdvReac Mild Other Verified 12/07/22 09:54 Family History Father Colon cancer Hypertension Mother Hypertension Surgical History (Updated 12/13/22 @ 00:[address] Candi Matthews MD) History of surgery Hx of tonsillectomy S/P percutaneous endoscopic gastrostomy (PEG) tube placement S/P TURP Social History household members: spouse Smoking Status: Former smoker quit date: 04/08/17 pack-years: 55 alcohol intake: never substance use type: does not use ROS ROS Narrative Admission Review of Systems: CONSTITUTIONAL: + weight loss, fever, chills, weakness or fatigue. HEENT: + Oral thrush evident. Eyes: No visual loss, blurred vision, double vision or yellow sclerae. Ears, Nose, Throat: No hearing loss, sneezing, congestion, runny nose or sore throat. SKIN: + Very staged ecchymosis to the extremities, abrasions, skin tears. CARDIOVASCULAR: No chest pain, chest pressure or chest discomfort, palpitations, edema, orthopnea, syncopal events. RESPIRATORY: + shortness of breath, cough with productive sputum, occasional wheezing.no hemoptysis. GASTROINTESTINAL: + G-tube in place with chronic aspiration history. No anorexia, nausea, vomiting or diarrhea, abdominal pain, melena, BRBPR. GENITOURINARY: No dysuria, frequency, urgency or retention. NEUROLOGICAL: No headache, dizziness, syncope, paralysis, ataxia, numbness or tingling in the extremities, focal weakness, change in bowel or bladder control, seizure. MUSCULOSKELETAL: + muscle, back pain, joint pain or stiffness. HEMATOLOGIC: + anemia, easy bleeding or bruising. LYMPHATICS: No enlarged nodes. No history of splenectomy. PSYCHIATRIC: No history of depression or anxiety. ENDOCRINOLOGIC: No reports of sweating, cold or heat intolerance. No polyuria or polydipsia. ALLERGIES: + History of anaphylaxis. Vital Signs Vital Signs Vital Signs: 12/12/22 20:15 12/12/22 20:20 12/12/22 20:20 Temperature 99.3 F H Temperature Source Temporal Pulse Rate 143 H 181 H Respiratory Rate 22 H 23 H Respiratory Effort Respiratory Pattern Blood Pressure 105/71 Blood Pressure Mean 82 Pulse Ox 94 94 Oxygen Delivery Method Nasal Cannula Nasal Cannula Nasal Cannula Oxygen Flow Rate (L/min) 6 6 12/12/22 20:20 12/12/22 20:22 12/12/22 21:26 Temperature Temperature Source Pulse Rate 127 H Respiratory Rate 23 H 30 H Respiratory Effort Short of Breath Respiratory Pattern Tachypnea Blood Pressure 95/78 Blood Pressure Mean 83 Pulse Ox 94 95 Oxygen Delivery Method Nasal Cannula Nasal Cannula Nasal Cannula Oxygen Flow Rate (L/min) 6 6 12/12/22 22:08 12/13/22 01:23 Temperature Temperature Source Pulse Rate 134 H 97 Respiratory Rate 33 H 23 H Respiratory Effort Respiratory Pattern Blood Pressure 103/72 Blood Pressure Mean 82 Pulse Ox 92 Oxygen Delivery Method Trach Collar Oxygen Flow Rate (L/min) Weight Weight: 135 lb 2.294 oz Body Mass Index (BMI) 19.3 Physical Exam Narrative Physical Examination: General: Awake, alert, oriented x 3 and cooperative, tracheostomy in with manipulation for speech, fatigued and ill-appearing. Skin: Normal color, normal turgor, no icterus, no cyanosis except for significant very staged ecchymotic changes and abrasions to the extremities and thorax. HEENT: AT/NC, EOMI, PERRLA, dry MM, oral thrush evident, tracheostomy in place with no marked purulent discharge noted, no carotid bruits or JVD noted. Lungs: Significantly diminished, greater bases, mildly rhonchorous with occasional end expiratory wheeze, no current rales, no evidence of any respiratory distress but tachypnea. Heart: Tachycardic with currently regular rhythm; no gallop, rub audible. Abdomen: Soft, cachectic habitus, G-tube in place, NTTP, ND, hyperactive BS, no appreciated HSM. Extremities: No cyanosis, clubbing, or edema, evidence of muscle wasting. Neurological: Patient awake, alert, oriented as noted, cognitive function appears baseline intact; pupils equally reactive to light and accommodation, cranial nerves grossly normal, moving all 4 extremities, no focal deficits, strength severely globally decreased secondary to acute presentation and underlying comorbidities. Psychiatric: Affect appears flat, fatigued, ill-appearing, no acute evidence of depressive or anxiety feelings. Results Lab / Micro Data 12/12/22 20:05 12/12/22 20:05 Labs: Laboratory Results - last 24 hr 12/12/22 20:05: WBC 7.8, RBC 3.64 L, Hgb 11.3 L, Hct 38.0 L, MCV 104.4 H, MCH 31.0, MCHC 29.7 L, RDW Std Deviation 59.0 H, RDW Coeff of Oz 15.3 H, Plt Count 196, MPV 11.2, Immature Gran % (Auto) 0.600, Neut % (Auto) 83.2 H, Lymph % (Auto) 10.8 L, Trinity % (Auto) 5.0, Eos % (Auto) 0.1, Baso % (Auto) 0.3, Absolute Neuts (auto) 6.5, Absolute Lymphs (auto) 0.84, Nucleated RBC % 0, PT 14.9, INR 1.2, APTT 54.2 H, Sodium 144, Potassium 3.9, Chloride 114 H, Carbon Dioxide 24.0, Anion Gap 6, BUN 38 H, Creatinine 1.64 H, Estim Creat Clear Calc 33.74, Est GFR (MDRD) Af Amer 53 L, Est GFR (MDRD) Non-Af 44 L, BUN/Creatinine Ratio 23.2 H, Glucose 124 H, Calcium 7.9 L 12/12/22 21:01: Lactic Acid 1.2 Micro: Microbiology 12/12/22 20:34 Nasal Secretion SARS-CoV-2 Antigen (Rapid) - Final Radiology Impression Chest X-Ray 12/12/22 20:37 IMPRESSION: Bibasilar airspace is unchanged. COPD. Electronically Signed: Luis Finney MD at 21:12 EDT , Chest CTA 12/12/22 23:27 IMPRESSION: No pulmonary embolism. Tracheostomy with mucous plugging of left lower lobe bronchus. Mild debris in the trachea at the elva. Bilateral patchy airspace consolidations predominantly in dependent locations in both lungs are concerning for secondary pneumonia. Other scattered central and peripheral nodular opacities are nonspecific, likely infectious given larger consolidations. CT follow-up recommended after treatment to exclude underlying malignancy. Electronically Signed: Gage Jara MD at 1:07 EDT , Assessment & Plan Assessment/Plan (1) Pneumonia: PLAN: Plan The patient is a 77 y/o M w/ PMHx: CKD stage III unclear subtype, Metastatic Hypopharyngeal cancer stage IV Dx 08/2016 s/p tracheostomy/G-tube treated with Erbitux, Cisplatin and 5FU with radiation therapy w/ disease progression initiated on Keytruda in 2016 with 2016 PET/CT scan with noted complete response of previous noted metastatic disease in the lungs/lymph nodes with Keytruda held since 02/06/2022 secondary to history of UTI with urinary retention issues status post TURP 04/20/2022, history of multifocal pneumonitis maintained on chronic low-dose steroids following with Dr. Polo, COPD w/ Chronic hypoxic respiratory failure 2-4L NC, Chronic aspiration w/ dysphagia s/p G-tube as noted, Former tobacco use, Severe protein calorie malnutrition who presents to the [facility] ED on 12/13/22 with history of worsening dyspnea, worse with exertion over the last week with elevated temperature at home reported 100.1 with cough with occasionally productive sputum with severe bouts of coughing inducing nausea and emesis with increased fatigue and malaise with ongoing issues with dehydration necessitating twice weekly IV fluid infusions prompting ED evaluation. #1. Acute on chronic hypoxic respiratory failure secondary to Pneumonia, Possible GN/GP organism w/ prior MRSA noted on sputum 08/17/22 w/ concurrent Acute on Chronic COPD exacerbation: Will admit to PCU, will maintain on oxygen with wean as tolerated to home oxygen supplementation, continue ATC budesonide especially given tachycardia, PRN albuterol, will initiate and maintain on IV Solu-Medrol, will initiate and maintain on IV Zosyn and Vancomycin w/ pending sputum Cx, will request MRSA screen on sputum if able, HOB, IS parameters w/ pending full respiratory viral panel and urine antigens. Bld cx x 2 obtained in the ED. PT/OT/ST/Nutrition/CM consulted for discharge planning. Low threshold also to involve Dr. Polo Pulmonary medicine. #2. SVT with eventual conversion to sinus tachycardia: ED evaluation with initial EKG with concern for SVT with conversion during ED physician evaluation to sinus tachycardia, likely in large part secondary to his acute infectious presentation and aerosol needs but given ongoing persistent issues at this point will administer if BP allows IV cardizem bolus and pending response may need to consider drip or if BP still low alternate agent, magnesium level as well as phosphorus level requested and noted, TSH and free T4 level also requested, ECHO ordered. Will maintain on cardiac telemetry and cycle cardiac enzymes additionally. If ongoing persistent may consider cardiology evaluation also. #3. Hx Metastatic Hypopharyngeal cancer stage IV: Dx 08/2016 s/p tracheostomy/G- tube treated with Erbitux, Cisplatin and 5FU with radiation therapy w/ disease progression initiated on Keytruda in 2015 with 2016 PET/CT scan with noted complete response of previous noted metastatic disease in the lungs/lymph nodes with Keytruda held since 02/06/2022 secondary to UTI/urinary retention, following with Dr. Max with last visit noted with oncology 12/03/2022, encourage continued outpatient follow-up. #4. Chronic aspiration: Continue n.p.o. status with G-tube usage, continue tube feeds per home regimen with nutrition consulted for any further recommendations, maintain head of bed and aspiration precautions. #5. Chronic macrocytic anemia: Admission hemoglobin 11.3, MCV 104.4, baseline hemoglobin appears 11-13, 11/12/2022 hemoglobin 12.5 however most recent repeat following this 12/03/22 Hgb 13.5, continue to trend. #6. Chronic Kidney Disease Stage III, unclear subtype: Admission BUN/Cr 38/1.64, baseline renal function primarily 1.4-1.6, repeat BMP in AM. #7. Chronic multifocal pneumonitis: Patient following Dr. Polo, will temporally hold prednisone regimen given IV Solu-Medrol usage as noted. #8. Hypothyroidism: We will continue patient home levothyroxine regimen, TSH and FT4 pending as noted. #9. Chronic neuropathy: We will continue patient home chronic gabapentin regimen. #10. Chronic hypotension, orthostasis: We will maintain on fall precautions, continue patient home midodrine regimen. #11. Severe protein calorie malnutrition: Evidenced by significantly reduced BMI, muscle and fat loss, cachexia, nutrition consulted also given tube feed for any further recommendation, magnesium and phosphorus levels requested. #12. Former tobacco use: Encourage continued tobacco cessation. #13. GERD: We will continue patient home PPI. #14. BPH: Patient with history of previous urinary retention issues status post TURP 04/20/2022, per current list not on regimen but clarifying. #15. DVT prophylaxis: Heparin. #16. CODE status: Patient does not have HCPOA or LW in place however his would be his decision maker. Encouraged both he and his to discuss these items with case management/social work to assist and set up if desired. Discussed CODE status at length including difference between FULL code, DNR-CCA and DNR-CC status. Following discussions about the differences in these status as well as lengthy discussion regarding his current health care status and prognosis if an acute event occur, requested Full Code status. From discussion with him and his she appears to believe DNR-CCA, no intubation would be in his best interest but at this time he request as noted Full Code. Advanced Care Planning Face to Face Time: 18 minutes. Charges/Coding Visit Charges Inpatient E&M: 30353 Init Hosp L3 Procedures Hospitalists Procedures: 91623 Advncd Care Plan 30 Min
[2022-12-13] MEDS: 0.9% Normal Saline 1,000 ML 1000 ML IV (01:44)
[2022-12-13 02:11] LABS: Magnesium 2.1 mg/dL (1.6-2.6); Phosphorus 1.9 mg/dL (2.5-4.9)
[2022-12-13] MEDS: Midodrine HCl 5 MG Tablet PO (02:12)
[2022-12-13] MEDS: Gabapentin 300 MG Capsule PO (02:15)
--- NOTE | 2022-12-13 02:32 | ECHOD_ITS ---
Reason For Study: ARRHYTHMIA Procedure This was a 2D Doppler, Color Flow transthoracic echocardiogram. The study was technically difficult. Due to pectus excavatum. Exam performed portable in patient room. Left Ventricle Mildly dilated left ventricle. The estimated ejection fraction is 35-40 %. Right Ventricle Normal right ventricle. Normal systolic function. Atria Normal left atrium. Normal right atrium. Mitral Valve The mitral valve is structurally normal. No prolapse or stenosis seen. Trivial mitral valve insufficiency. Tricuspid Valve The tricuspid valve is not well visualized. Aortic Valve Mild diffuse aortic valve calcification. Pulmonic Valve The pulmonic valve is not well visualized. Great Vessels The aortic root is not well visualized. Pericardium/Pleural No pericardial effusion. MMode/2D Measurements & Calculations LVIDd: 4.5 cm IVSd: 0.88 cm Ao root diam: 3.1 cm LVIDs: 3.4 cm LVPWd: 0.76 cm RVDd: 3.6 cm FS: 24.7 % LAV(MOD-bp): 46.6 ml EDV(MOD-sp4): 75.5 ml EDV(MOD-sp2): 57.7 ml LAV(MOD-bp) Indexed: 26.4 ml/m2 ESV(MOD-sp4): 43.7 ml ESV(MOD-sp2): 26.3 ml LAV(MOD-sp2): 38.8 ml EF(MOD-sp4): 42.1 % EF(MOD-sp2): 54.3 % LAV(MOD-sp4): 48.0 ml SV(MOD-sp4): 31.8 ml SV(MOD-sp2): 31.3 ml LA A4 area: 16.2 cm2 LA dimension(2D): 2.5 cm RA A4 area: 17.5 cm2 Time Measurements MV dec time: 0.20 sec Doppler Measurements & Calculations MV E max carlton: 51.1 cm/sec Lat Peak E' Carlton: 7.0 cm/sec Med Peak E' Carlton: 6.6 cm/sec MV A max carlton: 59.7 cm/sec E/E' lat: 7.3 E/E' med: 7.7 MV E/A: 0.86 Ao V2 max: 89.1 cm/sec LV V1 max: 63.7 cm/sec PA V2 max: 57.6 cm/sec Ao max P.2 mmHg LV V1 max P.6 mmHg Ao V2 mean: 68.6 cm/sec LV V1 mean P.87 mmHg Ao mean P.0 mmHg LV V1 mean: 44.0 cm/sec Ao V2 VTI: 16.4 cm LV V1 VTI: 12.6 cm AV (velocity ratio): 0.76 ECHO/Echo Complete Interpretation Summary The estimated ejection fraction is 35-40 %. Moderate LV systolic dysfunction with global LV hypokinesia No significant valvular abnormality No prior echocardiogram to compare Ordering Physician: Candi Matthews Referring Physician: Miles Liu Performed By: Caity Garcia, BELLA, RVT
[2022-12-13] MEDS: 0.9% Normal Saline 1,000 ML 100 ML IV ×3 (02:50→22:55)
[2022-12-13 04:01] LABS: Troponin-I HS 47 pg/mL (3.0-78.0)
[2022-12-13] MEDS: Vancomycin IV 1,000 MG/200 ML BAG 200 MG IV (04:25)
[2022-12-13] MEDS: NYSTATIN 500,000 UNIT/5 ML UDC 500000 UNIT PO ×4 (04:25→23:00)
--- NOTE | 2022-12-13 04:41 | PCM.RX.CS ---
Consult Antibiotic Management Pharmacy has been consulted to manage selected antiobiotic: Vancomycin Type of Intervention Type of Consult: New start Labs Labs: Sodium 144 mmol/L (136-145) 12/12/22 20:05 Potassium 3.9 mmol/L (3.5-5.1) 12/12/22 20:05 Chloride 114 mmol/L (98-107) H 12/12/22 20:05 Carbon Dioxide 24.0 mmol/L (21.0-32.0) 12/12/22 20:05 Anion Gap 6 (5-15) 12/12/22 20:05 BUN 38 mg/dL (7-18) H 12/12/22 20:05 Creatinine 1.64 mg/dL (0.70-1.30) H 12/12/22 20:05 Est GFR (MDRD) Af Amer 53 mL/min (>60) L 12/12/22 20:05 Est GFR (MDRD) Non-Af 44 mL/min (>60) L 12/12/22 20:05 BUN/Creatinine Ratio 23.2 RATIO (10-20) H 12/12/22 20:05 Glucose 124 mg/dL (74-106) H 12/12/22 20:05 Microbiology Microbiology: Microbiology 12/12/22 20:34 Nasal Secretion SARS-CoV-2 Antigen (Rapid) - Final Dosing Weight Weight used for dosin.3 kg Estimated Creatinine Clearance Estimated Creatinine Clearance: 32.5 Goal Trough Goal Trough: 15-20 mcg/mL Pharmacy Plan for Drug Dosing Pharmacy Plan for Drug Dosing: Pharmacy Service will continue to monitor and adjust dosing as required. Follow-Up Labs Follow-Up Labs: Trough: Vancomycin Date/Time Labs Ordered Labs to be done on [date and time ordered]: 12/14 @ 1600
[2022-12-13 04:43] LABS: Absolute Neutrophil Count 6.4 X10^3/uL (2.0-7.7); Basophil# 0.05 X10^3/uL; Basophil% 0.6 % (0-1); Eosinophil# 0.04 X10^3/uL; Eosinophils% 0.5 % (0-5); Hematocrit 40.3 % (40-54); Hemoglobin 11.7 g/dL (13.0-16.5); Lymphocyte % 18.9 % (19-41); Mean Corpuscular Hgb 30.8 pg (27.0-32.0); Mean Corpuscular Volume 106.1 fL (80-94); Mean Platelet Vol. 12.3 fl (6.2-12.0); Monocyte# 0.33 X10^3/uL; Monocyte% 3.9 % (0-10); NRBC Flagged by Analyzer 0 % (0-5); Neutrophil % 75.6 % (47-70); Platelet Count 208 K/mm3 (150-450); RBC Distribution Width CV 15.5 % (11.6-14.6); RBC Distribution Width SD 60.2 fl (35.1-43.9); White Blood Count 8.5 K/mm3 (4.4-11.0)
[2022-12-13] MEDS: Budesonide Respules 0.5 MG/2 ML AMPUL.NEB. INHALATION ×2 (05:05→07:23)
[2022-12-13] MEDS: Levothyroxine 50 MCG Tablet GT (05:44)
[2022-12-13 05:56] LABS: ALB/GLOB Ratio 0.5 RATIO (0.9-2.4); AST(SGOT) 20 U/L (15-37); Alanine Aminotransfer ALT/SGPT 31 U/L (16-61); Albumin, Serum 1.9 g/dL (3.2-5.0); Alkaline Phosphatase 54 U/L (45-117); Anion Gap 5 (5-15); BUN 32 mg/dL (7-18); BUN/Creat Ratio 20.4 RATIO (10-20); Calcium,Total 8.1 mg/dL (8.5-10.1); Chloride 111 mmol/L (98-107); Creatinine, Serum 1.57 mg/dL (0.70-1.30); EST Glomerular Filtration Rate 46 mL/min (>60); Est Glom Filt Rate - Afr Amer 56 mL/min (>60); Globulin 3.9 g/dL (2.2-4.2); Glucose 118 mg/dL (74-106); Potassium 4.4 mmol/L (3.5-5.1); Protein, Total 5.8 g/dL (6.4-8.2); Sodium Level 142 mmol/L (136-145); T4 Free Direct 1.07 ng/dL (0.76-1.46); Thyroid Stim Hormone (TSH) 1.05 uIU/mL (0.358-3.74); Troponin-I HS 35 pg/mL (3.0-78.0)
[2022-12-13 06:08] LABS: Probe Check PASS; Staph aureus DNA By PCR POSITIVE (Negative)
[2022-12-13 06:09] LABS: M R Staph aureus DNA By PCR POSITIVE (Negative)
[2022-12-13] MEDS: Midodrine HCl 5 MG Tablet 10 MG GT ×3 (08:04→17:14)
--- NOTE | 2022-12-13 08:54 | PCM.PN.BLA ---
Progress Note Continue to be stable, continue with antibiotics. MRSA studies are pending if negative can discontinue vancomycin
[2022-12-13 10:16] LABS: Troponin-I HS 33 pg/mL (3.0-78.0)
[2022-12-13] MEDS: Heparin Injection (Vial) 5,000 UNIT/ML VIAL 5000 UNIT SC ×2 (10:47→23:00)
[2022-12-13] MEDS: Gabapentin 300 MG Capsule GT ×2 (10:47→23:11)
[2022-12-13] MEDS: Lansoprazole 15 MG Capsule.DR GT (10:48)
[2022-12-13] MEDS: Jevity 1.5. 1,000 ML Bottle 237 ML GT ×3 (12:07→20:30)
--- NOTE | 2022-12-13 15:30 | CASEMGMT ---
RN CM asian studies program chair CM Face to Face with patient for initial transition planning/care coordination assessment. Significant other (S.O.), Christiane Graham, is also in the room with patient's permission. RN EVELYN introduced self and role at [facility]. Patient sitting up in chair at bedside, alert and oriented. Patient willing to participate in assessment and is able to answer all questions appropriately.?He has a trach so some of the following information comes from his S.O., and some comes from patient writing down information for me to read. Care providers, pharmacy, and demographics verified. Patient wishes to discharge home, denies need for home health at this time, though he reports he was experiencing dizziness prior to this admission that let to him having weakness in his legs and falls. RN CM to follow therapy. Patient states he has no further needs or concerns at this time. CM to follow for discharge planning needs that may arise. PCP:Noe Specialists:Mansoor (Oncology), Elias (surgeon), Albert (ENT), Santos (Supervisor Detasseling Crew), Christ (Spring Inspector), and Joseph (Ophthalmology) Preferred Pharmacy: [facility] Insurance:Medicare Part A & B Prescription Benefit:?Yes Living Will/HPOA:Unsure/Unsure. Informed patient that he can let a SW know if he would like to make a LW and HCPOA. Patient voices understading. LNOK:Significant other, Christiane Graham Living Arrangements: Lives with S.O. in a [address] home with 1 step to enter. Patient reports that prior to this admission, he was able to ambulate the step and was independent in ADLs and IADLS except for when his S.O. does medication set up and tube feedings for him. Transportation: S.O. and Self DME: Tube feedings/supplies, Trach supplies, suction supplies, oxygen concentrator, portable tanks, pulse ox (they say they could use a new one), nebulizer, shower chair, raised toilet seat, cane, hospital bed, and walker. DME company has been [employer], but patient may be considering switching and will let us know. HHC: Denies previous SNF. Reports Hx of HHC but does not recall who it was through Disposition Plan: Patient to discharge home with family support and follow-up plans in place. Will monitor progress with therapy and Home oxygen needs. Margo RODRIGUEZN, RN, CM
[2022-12-13] MEDS: Menthol/Lanolin/Calamine/Znox 113 GM Tube 1 APPLIC TOPICAL (15:55)
[2022-12-14] VITALS (10 sets, daily range): BP systolic 107–137; BP diastolic 58–65; PULSE 59–109; RESP 16–20; TEMP 36.2–36.6; O2SAT 92–99; BMI 19.4
--- NOTE | 2022-12-14 03:38 | CPS ---
All trach care was done by LORRIE Gray. The inside as well as outside was cleaned and pt was suctioned also.
[2022-12-14 05:05] LABS: Absolute Neutrophil Count 4.1 X10^3/uL (2.0-7.7); Basophil# 0.01 X10^3/uL; Basophil% 0.2 % (0-1); Hematocrit 31.4 % (40-54); Hemoglobin 9.6 g/dL (13.0-16.5); Lymphocyte % 12.4 % (19-41); Mean Corp Hgb Conc 30.6 g/dL (32-36); Mean Corpuscular Volume 101.3 fL (80-94); Mean Platelet Vol. 11.5 fl (6.2-12.0); Monocyte# 0.09 X10^3/uL; Monocyte% 1.9 % (0-10); NRBC Flagged by Analyzer 0 % (0-5); Neutrophil % 84.9 % (47-70); POSITIVE DIFFERENTIAL YES; Platelet Count 159 K/mm3 (150-450); RBC Distribution Width CV 15.1 % (11.6-14.6); RBC Distribution Width SD 56.5 fl (35.1-43.9); White Blood Count 4.8 K/mm3 (4.4-11.0)
[2022-12-14 05:27] LABS: Anion Gap 4 (5-15); BUN 31 mg/dL (7-18); BUN/Creat Ratio 25.2 RATIO (10-20); Calcium,Total 8.1 mg/dL (8.5-10.1); Chloride 114 mmol/L (98-107); Creatinine, Serum 1.23 mg/dL (0.70-1.30); EST Glomerular Filtration Rate 61 mL/min (>60); Est Glom Filt Rate - Afr Amer 74 mL/min (>60); Estimated Creatinine Clearance 45.14 ml/min; Glucose 117 mg/dL (74-106); Potassium 4.5 mmol/L (3.5-5.1); Sodium Level 141 mmol/L (136-145)
[2022-12-14] MEDS: Levothyroxine 50 MCG Tablet GT (05:34)
[2022-12-14] MEDS: BACITRACIN/POLYMYXIN B 15 GM Tube 1 APPLIC TOPICAL ×2 (05:56→21:54)
[2022-12-14 06:19] LABS: Differential Indicated SCAN CRITERIA MET
[2022-12-14 06:20] LABS: Differential Comment SCANNED
[2022-12-14] MEDS: Budesonide Respules 0.5 MG/2 ML AMPUL.NEB. INHALATION (07:19)
[2022-12-14] MEDS: Gabapentin 300 MG Capsule GT ×2 (09:12→21:54)
[2022-12-14] MEDS: NYSTATIN 500,000 UNIT/5 ML UDC 500000 UNIT PO ×4 (09:12→21:54)
[2022-12-14] MEDS: Heparin Injection (Vial) 5,000 UNIT/ML VIAL 5000 UNIT SC ×2 (09:12→21:53)
[2022-12-14] MEDS: 0.9% Normal Saline 1,000 ML 100 ML IV ×2 (09:13→20:16)
[2022-12-14] MEDS: Midodrine HCl 5 MG Tablet 10 MG GT ×3 (09:13→16:39)
[2022-12-14] MEDS: Jevity 1.5. 1,000 ML Bottle 237 ML GT ×3 (11:37→21:52)
[2022-12-14] MEDS: Methylprednisolone Sod Succ 40 MG/ML VIAL IV ×2 (14:18→21:53)
[2022-12-14 16:33] LABS: Vancomycin, Trough Level 11.8 ug/mL (5.0-15.0)
[2022-12-14] MEDS: 0.9% Saline Lock 10 ML Syringe IV ×2 (16:45→22:08)
--- NOTE | 2022-12-14 16:58 | PN_ITS ---
Subjective Subjective Patient seen and examined. He had no complaints. was by his bedside. He was up to 11L of oxygen. He denied any fever, chills, chest pain, palpitations, dizziness, nausea, vomiting or diarrhea. Review of systems was otherwise negative. Objective Data Objective Data Vital Signs: Vital Signs Temp Pulse Resp BP Pulse Ox O2 Del Method O2 Flow Rate 97.6 F L 109 H 18 137/61 H 97 Trach Collar 9 12/14/22 14:34 12/14/22 14:34 12/14/22 14:34 12/14/22 14:34 12/14/22 14:34 12/14/22 14:34 12/14/22 10:52 FiO2 45 12/14/22 14:34 Oxygen Flow Rate (L/min) 9 Oxygen Delivery Method Trach Collar Weight: 135 lb 9.349 oz Body Mass Index (BMI) 19.4 Intake & Output: Intake and Output for Last 24 Hours 12/12/22 12/13/22 12/14/22 23:59 23:59 23:59 Intake Total 1000 / 1000 4060.33 / 4145.33 1330 / 1330 Output Total 400 / 400 100 / 100 Balance 1000 / 1000 3660.33 / 3745.33 1230 / 1230 Lab / Micro Data 12/14/22 04:30 12/14/22 04:30 Labs: Laboratory Results - last 24 hr 12/14/22 04:30: WBC 4.8, RBC 3.10 L, Hgb 9.6 L, Hct 31.4 L, MCV 101.3 H, MCH 31.0, MCHC 30.6 L D, RDW Std Deviation 56.5 H, RDW Coeff of Oz 15.1 H, Plt Count 159, MPV 11.5, Immature Gran % (Auto) 0.600, Neut % (Auto) 84.9 H, Lymph % (Auto) 12.4 L, [place] % (Auto) 1.9, Eos % (Auto) 0.0, Baso % (Auto) 0.2, Absolute Neuts (auto) 4.1, Absolute Lymphs (auto) 0.60 L, Nucleated RBC % 0, Differential Comment SCANNED, Sodium 141, Potassium 4.5, Chloride 114 H, Carbon Dioxide 23.0, Anion Gap 4 L, BUN 31 H, Creatinine 1.23, Estim Creat Clear Calc 45.14, Est GFR (MDRD) Af Amer 74, Est GFR (MDRD) Non-Af 61, BUN/Creatinine Ratio 25.2 H, Glucose 117 H, Calcium 8.1 L 12/14/22 15:39: Vancomycin Trough 11.8 Micro: Microbiology 12/13/22 15:25 Urine, Random Legionella Antigen - Final 12/13/22 15:25 Urine, Random Streptococcus pneumoniae Antigen (M - Final 12/13/22 07:05 Sputum, Expectorated/Coughed Gram Stain - Final 12/13/22 07:05 Sputum, Expectorated/Coughed Respiratory Culture - Preliminary Gram negative jamie 12/12/22 21:45 Sputum, Tracheal Aspirate Gram Stain - Final 12/12/22 21:45 Sputum, Tracheal Aspirate Respiratory Culture - Preliminary Gram negative jamie Staphylococcus aureus 12/13/22 02:40 Mucosa - Nasopharyngeal Respiratory Panel (PCR) - Final 12/12/22 20:34 Nasal Secretion SARS-CoV-2 Antigen (Rapid) - Final Physical Exam Const alert, oriented x3 and no apparent distress General Appearance: cooperative HEENT normocephalic and head/scalp atraumatic HEENT Narrative: tracheostomy in place. On oxygen via the trach collar Eyes PERRL and EOMs intact bilaterally Neck no lymphadenopathy and supple Lymph Lymphatic: no lymphadenopathy noted and no lymphedema noted Resp Resp Narrative: mildly diminished breath sounds bibasally, no wheezes or crackles. on 11L of oxygen at time of review Cardio regular rate, regular rhythm, S1 normal heart sound and S2 normal heart sound GI normal to inspection, nondistended, normoactive bowel sounds, soft to palpation, non-tender and non-distended Extremity normal capillary refill, no clubbing, cyanosis or edema and no calf tenderness Skin General Skin Exam: no breakdown and turgor normal Neuro CN's II-XII intact bilaterally, no focal motor deficits, no sensory deficits noted and deep tendon reflexes 2+ bilaterally Motor Exam: strength 5/5 throughout Psych thought process normal, cooperative and affect normal Appearance: appropriate Assessment & Plan Assessment/Plan (1) Pneumonia: PLAN: Plan #Acute on chronic hypoxic respiratory failure due to pneumonia * On IV vancomycin and zosyn. On breathing treatments bronchodilators. * Was on 11 L of oxygen at time of review but I think he can be titrated down as he was saturating at around 98% per his nurse when she reviewed him. * CT chest showed tracheostomy with mucous plugging of left lower lobe bronchus and bilateral patchy airspace consolidations. * Breathing treatments bronchodilators. Titrate oxygen to maintain saturation above 90%. * Urine for strep and Legionella negative. Sputum culture pending and respiratory panel ordered. * Consult pulmonology. * 2D echo showed EF of 35-40%, with moderate LV dysfunction with gloval LV hypokinesis and no significant valvular abnormality * will add on IV lasix. Consult cardiology in light of echo findings. No previous echo in EMR * check BNP * #SVT: Resolved. Now in sinus rhythm. 2D echo as above. Cardiology consulted #History of metastatic hypopharyngeal cancer * Was diagnosed in 2017. Treated with radiation and chemotherapy. * Follows with Dr. Max. Tracheostomy and G tube in situ. * #Chronic aspiration: NPO. On tube feeds. Nutrition consulted. #CKD III: Will trend Cr and monitor. #CHronic multifocal pneumoniitis; follows with Dr Polo. On IV solumedrol. #Hypothyroidism: on synthroid #Orthostatic hypotension; on midodrine. #Severe protein calorie malnutrition: nutrition consulted. #GERD: on PPI #BPH: s/p TURP on 04/20/2022. DVT Prophylaxis: heparin Charges/Coding Visit Charges Inpatient E&M: 313[facility]
--- NOTE | 2022-12-14 16:59 | PCM.RX.CS ---
Consult Antibiotic Management Pharmacy has been consulted to manage selected antiobiotic: Vancomycin Type of Intervention Type of Consult: Follow-up Labs Labs: Sodium 141 mmol/L (136-145) 12/14/22 04:30 Potassium 4.5 mmol/L (3.5-5.1) 12/14/22 04:30 Chloride 114 mmol/L (98-107) H 12/14/22 04:30 Carbon Dioxide 23.0 mmol/L (21.0-32.0) 12/14/22 04:30 Anion Gap 4 (5-15) L 12/14/22 04:30 BUN 31 mg/dL (7-18) H 12/14/22 04:30 Creatinine 1.23 mg/dL (0.70-1.30) 12/14/22 04:30 Est GFR (MDRD) Af Amer 74 mL/min (>60) 12/14/22 04:30 Est GFR (MDRD) Non-Af 61 mL/min (>60) 12/14/22 04:30 BUN/Creatinine Ratio 25.2 RATIO (10-20) H 12/14/22 04:30 Glucose 117 mg/dL (74-106) H 12/14/22 04:30 Vancomycin Trough 11.8 ug/mL (5.0-15.0) 12/14/22 15:39 Microbiology Microbiology: Microbiology 12/13/22 15:25 Urine, Random Legionella Antigen - Final 12/13/22 15:25 Urine, Random Streptococcus pneumoniae Antigen (M - Final 12/13/22 07:05 Sputum, Expectorated/Coughed Gram Stain - Final 12/13/22 07:05 Sputum, Expectorated/Coughed Respiratory Culture - Preliminary Gram negative jamie 12/12/22 21:45 Sputum, Tracheal Aspirate Gram Stain - Final 12/12/22 21:45 Sputum, Tracheal Aspirate Respiratory Culture - Preliminary Gram negative jamie Staphylococcus aureus 12/13/22 02:40 Mucosa - Nasopharyngeal Respiratory Panel (PCR) - Final 12/12/22 20:34 Nasal Secretion SARS-CoV-2 Antigen (Rapid) - Final Goal Trough Goal Trough: 15-20 mcg/mL Pharmacy Plan for Drug Dosing Pharmacy Plan for Drug Dosing: VANCOMYCIN LEVEL RECEIVED Current Vancomycin Dose: 750MG IV Q24H Number of Doses Received: 3 (2 prior to trough draw) Vancomycin Level: 11.8 Hours Since Last Dose: 22.25 hr Renal Function: 1.23 Renal Function Trend: improvement from yesterday Lab/Micro: sensitivities pending- pt growing GNR and staph spp Vancomycin Plan/Comments: Patient had a trough drawn which resulted in a value of 11.8 goal 15-20). Will increase dose to vancomycin 1250mg IV Q24hr to start 12/15/22 @1200. Note: This evening's dose was already hung when trough resulted, will time next dose due for ~4hrs earlier rather than waiting the full 24hrs prior to next dose due. Pending Level: 12/17/22 @1130, prior to 3rd total dose of new regimen Pharmacy Service will continue to monitor and adjust dosing as required.
[2022-12-14] MEDS: Furosemide 40 MG/4 ML Vial IV (18:11)
[2022-12-14 18:21] LABS: BNP,B-Type NATRIURETIC PEPTIDE 512.9 pg/mL (0-100)
--- NOTE | 2022-12-14 18:41 | PCM.CONS.C ---
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: (3) COPD (chronic obstructive pulmonary disease): QUALIFIERS: COPD type: unspecified COPD Qualified Code(s): J44.9 - Chronic obstructive pulmonary disease, unspecified (4) Leukopenia due to antineoplastic chemotherapy: (5) Cancer, metastatic to lung: QUALIFIERS: Laterality: unspecified laterality Qualified Code(s): C78.00 - Secondary malignant neoplasm of unspecified lung (6) Paroxysmal supraventricular tachycardia: PLAN: 77-year-old patient seen and evaluated today at bedside along with the who is at bedside This patient has multiple medical comorbidities This admission had pneumonia Had acute on chronic hypoxic respiratory failure secondary to pneumonia. As well had CKD stage III Cardiac consultation requested for episode of SVT while in the ER which converted to sinus tachycardia with initial EKG consistent with supraventricular tachycardia. On the ekg monitor tech he remains in sinus with PVCs. Patient also has metastatic hypopharyngeal cancer stage IV. Status post tracheostomy status post G-tube. Has been on chemotherapy with cisplatin and and 5-FU with radiation therapy. Cardiac care plan recommendation. 1. The echocardiographic evaluation showed moderate LV systolic dysfunction Ejection fraction in the range of 35-40% 2. We will continue to monitor electrolytes including potassium magnesium level as well as his renal function 3. We will add low-dose beta-adina carvedilol 3.125 twice daily to the current medication. And we will repeat her echocardiogram I do not see any evidence of atrial fibrillation he had an episode of SVT which is likely multifactorial in addition to the low ejection fraction which is a new event for this patient. At this point she is not a candidate for any invasive evaluation we will continue to conservative treatment and follow-up. HPI Consult Data Date of Consult: 12/14/22 HPI Narrative Reason for Consultation: SVT/moderate LV systolic dysfunction EF 35-40% HPI Narrative: SERENITY ESTRADA, is a 77 M who [facility] Medical History Agranulocytosis secondary to cancer chemotherapy Ambulates with cane Antineoplastic chemotherapy induced anemia Cancer CKD (chronic kidney disease), stage III Dietary restriction Dysphagia Former smoker Indwelling urethral catheter present FCI (current) use of systemic steroids Long-term use of high-risk medication Neuropathy On home oxygen therapy Pneumonia Pneumonitis 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 Shortness of breath on exertion Thrush, oral Tracheostomy in place tracheotomy and laryngeal biopsy Wears glasses Home Medications lactose-reduced food with fiber 0.06 gram-1.5 kcal/mL oral liquid 237 ml G-tube Q4H nutrition 09/09/18 [History Last Taken 04/19/22] midodrine 5 mg tablet 5 mg feeding tube TID 04/17/22 [History Last Taken 04/20/22 06:00] guaifenesin 200 mg/5 mL oral liquid 400 mg (10 mL) PO Q6H PRN cough #473 mL 06/05/22 [Rx Last Taken Unknown] levothyroxine 50 mcg tablet See Rx Instructions .Route .COMPLEX #90 TABLETS 06/22/22 [Rx Last Taken Unknown] omeprazole 20 mg capsule,delayed release 20 mg PO DAILY 06/25/22 [History Last Taken Unknown] bevacizumab 25 mg/mL intravenous solution (Avastin) 25 mg intravitreal QMONTH 08/10/22 [History Last Taken Unknown] budesonide 0.5 mg/2 mL suspension for nebulization 0.5 mg (2 mL) inhalation BID #120 mL 08/13/22 [Rx Last Taken Unknown] ipratropium 0.5 mg-albuterol 3 mg (2.5 mg base)/3 mL nebulization soln 3 ml inhalation Q4H PRN shortness of breath or wheezing #180 mL 08/14/22 [Rx Last Taken Unknown] zdgpbavvyluig-LA-ubpookuafpm 2.5 mg-5 mg-50 mg/5 mL oral liquid (Robitussin Cough and Cold CF) 15 ml PO Q4H PRN cold symptoms #118 mL 10/05/22 [Rx Last Taken Unknown] ondansetron 8 mg disintegrating tablet 8 mg PO Q8H PRN nausea and vomiting #30 tabs 11/13/22 [Rx Last Taken Unknown] gabapentin 300 mg capsule 300 mg feeding tube BID #60 caps 11/30/22 [Rx Last Taken Unknown] lidocaine-prilocaine 2.5 %-2.5 % topical cream 50 g topical ONCE #30 grams 11/30/22 [Rx Last Taken Unknown] prednisolone sodium phosphate 15 mg/5 mL (5 mL) oral solution 15 mg (5 mL) PO DAILY #250 mL 12/03/22 [Rx Last Taken Unknown] sulfamethoxazole 200 mg-trimethoprim 40 mg/5 mL oral suspension 20 ml PO BID #473 mL 12/07/22 [Rx Last Taken Unknown] Allergy/AdvReac Type Severity Reaction Status Date / Time venom-wasp Allergy Anaphylaxis Verified 12/07/22 09:54 pseudoephedrine HCl AdvReac Severe Unknown Verified 12/07/22 09:54 [From Sudafed] Antihistamines - Alkylamine AdvReac Mild Other Verified 12/07/22 09:54 Family History Father Colon cancer Hypertension Mother Hypertension Surgical History (Updated 12/13/22 @ 00:[address] Candi Matthews MD) History of surgery Hx of tonsillectomy S/P percutaneous endoscopic gastrostomy (PEG) tube placement S/P TURP Social History household members: spouse Smoking Status: Former smoker quit date: 04/08/17 pack-years: 55 alcohol intake: never substance use type: does not use Physical Exam Cardio Cardio Narrative: Orientated Has a tracheostomy tube environmental monitoring specialist showed sinus rhythm with PVCs Cardiac exam S1-S2 is regular, no murmur Chest examination diminished air entry bilateral, more prominently noted on the left side with with Expiratory wheeze Examination lower extremity no lower extremity edema. Risk Stratification Risk Stratification Applicable: No Objective Data Vital Signs: Vital Signs Temp Pulse Resp BP Pulse Ox O2 Del Method O2 Flow Rate 97.6 F L 109 H 18 137/61 H 97 Trach Collar 9 12/14/22 14:34 12/14/22 14:34 12/14/22 14:34 12/14/22 14:34 12/14/22 14:34 12/14/22 14:34 12/14/22 10:52 FiO2 45 12/14/22 14:34 Oxygen Flow Rate (L/min) 9 Oxygen Delivery Method Trach Collar Weight: 135 lb 9.349 oz Body Mass Index (BMI) 19.4 Intake & Output: Intake and Output for Last 24 Hours 12/12/22 12/13/22 12/14/22 23:59 23:59 23:59 Intake Total 1000 / 1000 4060.33 / 4145.33 1595 / 1595 Output Total 400 / 400 100 / 100 Balance 1000 / 1000 3660.33 / 3745.33 1495 / 1495 Lab / Micro Data 12/14/22 04:30 12/14/22 04:30 Labs: Laboratory Results - last 24 hr 12/14/22 04:30: WBC 4.8, RBC 3.10 L, Hgb 9.6 L, Hct 31.4 L, MCV 101.3 H, MCH 31.0, MCHC 30.6 L D, RDW Std Deviation 56.5 H, RDW Coeff of Oz 15.1 H, Plt Count 159, MPV 11.5, Immature Gran % (Auto) 0.600, Neut % (Auto) 84.9 H, Lymph % (Auto) 12.4 L, [place] % (Auto) 1.9, Eos % (Auto) 0.0, Baso % (Auto) 0.2, Absolute Neuts (auto) 4.1, Absolute Lymphs (auto) 0.60 L, Nucleated RBC % 0, Differential Comment SCANNED, Sodium 141, Potassium 4.5, Chloride 114 H, Carbon Dioxide 23.0, Anion Gap 4 L, BUN 31 H, Creatinine 1.23, Estim Creat Clear Calc 45.14, Est GFR (MDRD) Af Amer 74, Est GFR (MDRD) Non-Af 61, BUN/Creatinine Ratio 25.2 H, Glucose 117 H, Calcium 8.1 L, B-Natriuretic Peptide 512.9 H 12/14/22 15:39: Vancomycin Trough 11.8 Micro: Microbiology 12/13/22 15:25 Urine, Random Legionella Antigen - Final 12/13/22 15:25 Urine, Random Streptococcus pneumoniae Antigen (M - Final 12/13/22 07:05 Sputum, Expectorated/Coughed Gram Stain - Final 12/13/22 07:05 Sputum, Expectorated/Coughed Respiratory Culture - Preliminary Gram negative jamie 12/12/22 21:45 Sputum, Tracheal Aspirate Gram Stain - Final 12/12/22 21:45 Sputum, Tracheal Aspirate Respiratory Culture - Preliminary Gram negative jamie Staphylococcus aureus Cardiology Labs/Tests 12/14/22 04:30: WBC 4.8, RBC 3.10 L, Hgb 9.6 L, Hct 31.4 L, MCV 101.3 H, MCH 31.0, MCHC 30.6 L D, Plt Count 159, MPV 11.5, Immature Gran % (Auto) 0.600, Neut % (Auto) 84.9 H, Lymph % (Auto) 12.4 L, [place] % (Auto) 1.9, Eos % (Auto) 0.0, Baso % (Auto) 0.2, Absolute Neuts (auto) 4.1, Nucleated RBC % 0, Sodium 141, Potassium 4.5, Chloride 114 H, Carbon Dioxide 23.0, Anion Gap 4 L, BUN 31 H, Creatinine 1.23, Est GFR (MDRD) Af Amer 74, Est GFR (MDRD) Non-Af 61, BUN/Creatinine Ratio 25.2 H, Glucose 117 H, Calcium 8.1 L, B-Natriuretic Peptide 512.9 H Rhythm: EKG: ECHO: Stress Test: Cardiac Cath: PCI: CT Surgery: Holter monitor: EPS: PPM: CXR: Chest CT Scan:
[2022-12-14] MEDS: Carvedilol 3.125 MG TABLET PO (21:53)
[2022-12-15 03:30] VITALS: BP 114/70; PULSE 103; RESP 16; TEMP 36.1; O2SAT 100
[2022-12-15] MEDS: Levothyroxine 50 MCG Tablet GT (05:36)
[2022-12-15] MEDS: Methylprednisolone Sod Succ 40 MG/ML VIAL IV ×3 (05:36→22:06)
[2022-12-15] MEDS: 0.9% Normal Saline 1,000 ML 100 ML IV (05:37)
[2022-12-15 05:42] VITALS: BMI 19.5
[2022-12-15] MEDS: Jevity 1.5. 1,000 ML Bottle 237 ML GT ×4 (06:30→18:00)
[2022-12-15] MEDS: Budesonide Respules 0.5 MG/2 ML AMPUL.NEB. INHALATION (07:05)
[2022-12-15 07:10] VITALS: PULSE 89; RESP 21
[2022-12-15 08:03] VITALS: O2SAT 94
--- NOTE | 2022-12-15 08:08 | PCM.PN.HOSP ---
Reason for Visit Reason for Visit: Diagnoses Secondary malignant neoplasm of unspecified lung (12/13/22) Agranulocytosis secondary to cancer chemotherapy (12/13/22) Supraventricular tachycardia (12/13/22) Pneumonia, unspecified organism (12/13/22) Chronic obstructive pulmonary disease, unspecified (12/13/22) Adverse effect of antineoplastic and immunosuppressive drugs, initial encounter (12/13/22) manager intermediate (current) use of systemic steroids (12/13/22) Subjective Subjective Patient is a 77-year-old gentleman with multiple comorbidities who was admitted with shortness of breath and tachycardia Objective Data Objective Data Vital Signs: Vital Signs Temp Pulse Resp BP Pulse Ox O2 Del Method O2 Flow Rate 97.0 F L 89 21 H 114/70 94 Trach Collar 4 12/15/22 03:30 12/15/22 07:10 12/15/22 07:10 12/15/22 03:30 12/15/22 08:03 12/15/22 08:03 12/14/22 22:00 FiO2 30 12/15/22 08:03 Oxygen Flow Rate (L/min) 4 Oxygen Delivery Method Trach Collar Weight: 61.8 kg Body Mass Index (BMI) 19.5 Intake & Output: Intake and Output for Last 24 Hours 12/13/22 12/14/22 12/15/22 23:59 23:59 23:59 Intake Total 4060.33 / 4145.33 2675 / 2972 1639 / 1639 Output Total 400 / 400 100 / 3250 4700 / 4700 Balance 3660.33 / 3745.33 2575 / -278 -3061 / -3061 Lab / Micro Data 12/14/22 04:30 12/14/22 04:30 Labs: Laboratory Results - last 24 hr 12/14/22 04:30: B-Natriuretic Peptide 512.9 H 12/14/22 15:39: Vancomycin Trough 11.8 Micro: Microbiology 12/12/22 21:15 Blood Culture (Wb) - Left Forearm Blood Culture - Preliminary No growth in 48 hours. 12/12/22 21:01 Blood Culture (Wb) - Port Blood Culture - Preliminary No growth in 48 hours. 12/13/22 15:25 Urine, Random Legionella Antigen - Final 12/13/22 15:25 Urine, Random Streptococcus pneumoniae Antigen (M - Final 12/13/22 07:05 Sputum, Expectorated/Coughed Gram Stain - Final 12/13/22 07:05 Sputum, Expectorated/Coughed Respiratory Culture - Preliminary Gram negative jamie 12/12/22 21:45 Sputum, Tracheal Aspirate Gram Stain - Final 12/12/22 21:45 Sputum, Tracheal Aspirate Respiratory Culture - Preliminary Gram negative jamie Staphylococcus aureus 12/13/22 02:40 Mucosa - Nasopharyngeal Respiratory Panel (PCR) - Final 12/12/22 20:34 Nasal Secretion SARS-CoV-2 Antigen (Rapid) - Final Physical Exam Narrative GENERAL: Appears cachectic HEENT: Atraumatic; trach collar in place EYES; Anicteric, Normal Conjunctiva NECK; supple, normal thyroid, RESPIRATORY: Diminished to auscultation CARDIOVASCULAR:? Regular S1 S2, GI:? soft, normoactive bowel sounds, : No Renal angle tenderness; EXTREMITIES:? No edema, no clubbing, MUSCULOSKELETAL:? no muscle wasting NEURO:? Awake;? no lateralizing signs. SKIN:? No Rash PSYCH; Flat? affect Assessment & Plan Assessment/Plan (1) Pneumonia: QUALIFIERS: Laterality: bilateral Lung location: lower lobe of lung Pneumonia type: due to methicillin-resistant Staphylococcus aureus (MRSA) Qualified Code(s): J15.212 - Pneumonia due to Methicillin resistant Staphylococcus aureus PLAN: Plan Patient is a 77-year-old gentleman with multiple comorbidities who was admitted with shortness of breath and tachycardia 1. Acute on chronic hypoxic respiratory failure ? Secondary to pneumonia with MDR's and mucous plugging. 2. Pneumonia with MDR's ? Cultures so far positive for gram-negative jamie possible Pseudomonas as well as MRSA and Klebsiella patient managed with broad-spectrum antibiotic to therapy including vancomycin as well as Zosyn in addition to supplemental oxygen 3. SVT ? Suspected to be frustrated by patient hypoxic respiratory failure and pneumonia resolved 4. Acute congestive heart failure with reduced ejection 2D echo showed EF of 35-40%, with moderate LV dysfunction with gloval LV hypokinesis and no significant valvular abnormality. Patient was started on furosemide consultation placed to cardiology 5. 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 Status post tracheostomy and PEG tube placement. Patient is followed by oncology as outpatient 6. Anemia - Secondary to chronic disorder monitoring H&H and transfuse if patient becomes symptomatic or hemoglobin falls below 7 7. 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 Status post PEG tube placement 8. Chronic hypoxic respiratory failure ? Secondary to laryngeal CA that is post tracheostomy 9. Chronic hypotension ? Patient is on midodrine 10. Severe protein calorie malnutrition ? As evidenced by inadequate oral intake secondary to patient multiple comorbidities. Patient is currently n.p.o. and receives nutrition via PEG tube 11. Chronic pain syndrome ? Patient is on gabapentin 12. Hypothyroidism - Patient is on levothyroxine home dose continued 13. GERD ? Patient is on PPI 14. Chronic urinary retention secondary to BPH, Status post TURP on 04/20/2022. 15. DVT prophylaxis SC Heparin Time spent in the patient's overall evaluation,decision-making process, review of diagnostic data, adjustment of management, discussion with other providers, nursing nursing and ancillary staff involved in patient's care documentation, 50 Minutes Charges/Coding Visit Charges Inpatient E&M: 30709 [facility] L3
[2022-12-15 09:30] VITALS: BP 107/54; PULSE 69; RESP 18; TEMP 36.2; O2SAT 94
[2022-12-15] MEDS: Carvedilol 3.125 MG TABLET PO ×2 (09:44→22:06)
[2022-12-15] MEDS: NYSTATIN 500,000 UNIT/5 ML UDC 500000 UNIT PO ×4 (09:44→22:06)
[2022-12-15] MEDS: Heparin Injection (Vial) 5,000 UNIT/ML VIAL 5000 UNIT SC ×2 (09:44→22:20)
[2022-12-15] MEDS: Midodrine HCl 5 MG Tablet 10 MG GT ×3 (09:44→18:00)
[2022-12-15] MEDS: Furosemide 40 MG/4 ML Vial IV (09:44)
[2022-12-15] MEDS: Gabapentin 300 MG Capsule GT ×2 (09:47→22:06)
[2022-12-15] MEDS: BACITRACIN/POLYMYXIN B 15 GM Tube 1 APPLIC TOPICAL ×2 (09:48→22:07)
[2022-12-15] MEDS: 0.9% Saline Lock 10 ML Syringe IV (11:09)
[2022-12-15] MEDS: Vancomycin HCl 1,250 MG in 0.9% Normal Saline (250mL Bag) 250 ML 167 MG IV (12:40)
[2022-12-15 13:07] VITALS: BP 116/64; PULSE 72; RESP 18; TEMP 36.2; O2SAT 94
--- NOTE | 2022-12-15 13:49 | CON.PCM.CC_ITS ---
Assessment & Plan Assessment/Plan (1) Acute and chronic respiratory failure with hypoxia: (2) Pneumonia: QUALIFIERS: Laterality: bilateral Lung location: lower lobe of lung Pneumonia type: due to methicillin-resistant Staphylococcus aureus (MRSA) Qualified Code(s): J15.212 - Pneumonia due to Methicillin resistant Staphylococcus aureus (3) COPD with exacerbation: (4) Tracheostomy in place: (5) Abnormal CT scan, chest: (6) Hypopharyngeal cancer: PLAN: Plan * Reviewed the patient's previous CT scan from November, there are new findings on admission. These are most likely consistent with an infectious process however given his history recommend repeat CT scan of the chest in 6 to 8 weeks to ensure resolution. Recommend at least 7 to 10 days of antibiotics * Continue current antibiotics. Sputum culture is growing Klebsiella and MRSA. Legionella and strep antigens are negative * Wean oxygen as tolerated he is currently on 6 to 8 L. 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 Patient presented with worsening shortness of breath. According to the patient he has been feeling unwell for the past couple of weeks and had been started on oral antibiotics by his oncologist due to concern for pneumonia seen on his most recent CT scan of his chest. He however continued to feel worse. He underwent CT scan on admission which showed bilateral patchy infiltrates. Patient had undergone PET scan in 2021 which was negative for PET avid pulmonary nodules The patient reports that he started to feel better after initiation of IV antibiotics. [facility] Medical History Agranulocytosis secondary to cancer chemotherapy Ambulates with cane Antineoplastic chemotherapy induced anemia Cancer CKD (chronic kidney disease), stage III Dietary restriction Dysphagia Former smoker Indwelling urethral catheter present half-way (current) use of systemic steroids Long-term use of high-risk medication Neuropathy On home oxygen therapy Pneumonia Pneumonitis 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 Shortness of breath on exertion Thrush, oral Tracheostomy in place tracheotomy and laryngeal biopsy Wears glasses Home Medications lactose-reduced food with fiber 0.06 gram-1.5 kcal/mL oral liquid 237 ml G-tube Q4H nutrition 09/09/18 [History Last Taken 04/19/22] midodrine 5 mg tablet 5 mg feeding tube TID 04/17/22 [History Last Taken 04/20/22 06:00] guaifenesin 200 mg/5 mL oral liquid 400 mg (10 mL) PO Q6H PRN cough #473 mL 06/05/22 [Rx Last Taken Unknown] levothyroxine 50 mcg tablet See Rx Instructions .Route .COMPLEX #90 TABLETS 06/22/22 [Rx Last Taken Unknown] omeprazole 20 mg capsule,delayed release 20 mg PO DAILY 06/25/22 [History Last Taken Unknown] bevacizumab 25 mg/mL intravenous solution (Avastin) 25 mg intravitreal QMONTH 08/10/22 [History Last Taken Unknown] budesonide 0.5 mg/2 mL suspension for nebulization 0.5 mg (2 mL) inhalation BID #120 mL 08/13/22 [Rx Last Taken Unknown] ipratropium 0.5 mg-albuterol 3 mg (2.5 mg base)/3 mL nebulization soln 3 ml inhalation Q4H PRN shortness of breath or wheezing #180 mL 08/14/22 [Rx Last Taken Unknown] vqivrejlegypw-ZQ-dtxlfrtwccd 2.5 mg-5 mg-50 mg/5 mL oral liquid (Robitussin Cough and Cold CF) 15 ml PO Q4H PRN cold symptoms #118 mL 10/05/22 [Rx Last Taken Unknown] ondansetron 8 mg disintegrating tablet 8 mg PO Q8H PRN nausea and vomiting #30 tabs 11/13/22 [Rx Last Taken Unknown] gabapentin 300 mg capsule 300 mg feeding tube BID #60 caps 11/30/22 [Rx Last Taken Unknown] lidocaine-prilocaine 2.5 %-2.5 % topical cream 50 g topical ONCE #30 grams 11/30/22 [Rx Last Taken Unknown] prednisolone sodium phosphate 15 mg/5 mL (5 mL) oral solution 15 mg (5 mL) PO DAILY #250 mL 12/03/22 [Rx Last Taken Unknown] sulfamethoxazole 200 mg-trimethoprim 40 mg/5 mL oral suspension 20 ml PO BID #473 mL 12/07/22 [Rx Last Taken Unknown] Allergy/AdvReac Type Severity Reaction Status Date / Time venom-wasp Allergy Anaphylaxis Verified 12/07/22 09:54 pseudoephedrine HCl AdvReac Severe Unknown Verified 12/07/22 09:54 [From Sudafed] Antihistamines - Alkylamine AdvReac Mild Other Verified 12/07/22 09:54 Family History Father Colon cancer Hypertension Mother Hypertension Surgical History History of surgery Hx of tonsillectomy S/P percutaneous endoscopic gastrostomy (PEG) tube placement S/P TURP Social History household members: spouse Smoking Status: Former smoker quit date: 04/08/17 pack-years: 55 alcohol intake: never substance use type: does not use ROS ROS Narrative Negative except as mentioned in HPI ENT HEENT: Reports dysphagia Cardiovascular Cardiovascular: Denies chest pain Respiratory/Chest Respiratory/Chest: Reports cough and dyspnea Gastrointestinal Gastrointestinal: Reports abdominal pain Physical Exam Narrative GENERAL: Appears cachectic HEENT: Atraumatic; uncuffed size 6 Citizen Of [place] trach collar in place EYES; Anicteric, Normal Conjunctiva NECK; supple, normal thyroid, RESPIRATORY: Diminished to auscultation CARDIOVASCULAR:? Regular S1 S2, GI:? soft, normoactive bowel sounds, : No Renal angle tenderness; EXTREMITIES:? No edema, no clubbing, MUSCULOSKELETAL:? no muscle wasting NEURO:? Awake;? no lateralizing signs. SKIN:? No Rash PSYCH; Flat? affect Medical Records Data Attestation: I reviewed the patient's medical records Lab / Micro Data Attestation: I reviewed the patient's lab results. 12/14/22 04:30 12/14/22 04:30 Labs: Laboratory Results - last 24 hr 12/14/22 04:30: B-Natriuretic Peptide 512.9 H 12/14/22 15:39: Vancomycin Trough 11.8 Micro: Microbiology 12/13/22 07:05 Sputum, Expectorated/Coughed Gram Stain - Final 12/13/22 07:05 Sputum, Expectorated/Coughed Respiratory Culture - Preliminary GNR Poss Pseudomonas sp Gram negative jamie Staphylococcus species 12/12/22 21:45 Sputum, Tracheal Aspirate Gram Stain - Final 12/12/22 21:45 Sputum, Tracheal Aspirate Respiratory Culture - Final Klebsiella pneumoniae sp pneum Meth. resistant Staph. aureus 12/12/22 21:15 Blood Culture (Wb) - Left Forearm Blood Culture - Preliminary No growth in 48 hours. 12/12/22 21:01 Blood Culture (Wb) - Port Blood Culture - Preliminary No growth in 48 hours. 12/13/22 15:25 Urine, Random Legionella Antigen - Final 12/13/22 15:25 Urine, Random Streptococcus pneumoniae Antigen (M - Final
[2022-12-15 21:54] VITALS: BP 106/65; PULSE 68; RESP 18; TEMP 36.8; O2SAT 94
[2022-12-16] VITALS (22 sets, daily range): BP systolic 80–137; BP diastolic 52–111; PULSE 60–130; RESP 14–24; TEMP 36.3–36.4; O2SAT 94–96; BMI 18.6
[2022-12-16] MEDS: Levothyroxine 50 MCG Tablet GT (04:48)
[2022-12-16] MEDS: Methylprednisolone Sod Succ 40 MG/ML VIAL IV ×3 (06:21→21:03)
[2022-12-16] MEDS: Jevity 1.5. 1,000 ML Bottle 237 ML GT ×4 (06:27→20:49)
[2022-12-16] MEDS: Budesonide Respules 0.5 MG/2 ML AMPUL.NEB. INHALATION (07:34)
--- NOTE | 2022-12-16 08:09 | PN.HOSP_ITS ---
Reason for Visit Reason for Visit: Diagnoses Malignant neoplasm of hypopharynx, unspecified (12/13/22) Secondary malignant neoplasm of unspecified lung (12/13/22) Agranulocytosis secondary to cancer chemotherapy (12/13/22) Supraventricular tachycardia (12/13/22) Pneumonia due to Methicillin resistant Staphylococcus aureus (12/13/22) Pneumonia, unspecified organism (12/13/22) Chronic obstructive pulmonary disease with (acute) exacerbation (12/13/22) Chronic obstructive pulmonary disease, unspecified (12/13/22) Acute and chronic respiratory failure with hypoxia (12/13/22) Abnormal findings on diagnostic imaging of other specified body structures (12/13/22) Adverse effect of antineoplastic and immunosuppressive drugs, initial encounter (12/13/22) director long term care (current) use of systemic steroids (12/13/22) Tracheostomy status (12/13/22) Subjective Subjective Patient was found to be tachycardic with heart rate as high as 180. Repeat EKG this time demonstrated A-fib with RVR Objective Data Objective Data Vital Signs: Vital Signs Temp Pulse Resp BP Pulse Ox O2 Del Method O2 Flow Rate 97.4 F L 71 18 107/68 95 Room Air 6 12/16/22 03:55 12/16/22 03:55 12/16/22 03:55 12/16/22 03:55 12/16/22 03:55 12/16/22 07:41 12/16/22 03:55 FiO2 30 12/15/22 21:55 Oxygen Flow Rate (L/min) 6 Oxygen Delivery Method Room Air Weight: 58.9 kg Body Mass Index (BMI) 18.6 Intake & Output: Intake and Output for Last 24 Hours 12/14/22 12/15/22 12/16/22 23:59 23:59 23:59 Intake Total 2675 / 2972 3325.67 / 3325.67 110 / 110 Output Total 100 / 3250 5600 / 6050 700 / 700 Balance 2575 / -278 -2274.33 / -2724.33 -590 / -590 Lab / Micro Data 12/16/22 09:33 12/14/22 04:30 Micro: Microbiology 12/13/22 07:05 Sputum, Expectorated/Coughed Gram Stain - Final 12/13/22 07:05 Sputum, Expectorated/Coughed Respiratory Culture - Preliminary GNR Poss Pseudomonas sp Gram negative jamie Staphylococcus species 12/12/22 21:45 Sputum, Tracheal Aspirate Gram Stain - Final 12/12/22 21:45 Sputum, Tracheal Aspirate Respiratory Culture - Final Klebsiella pneumoniae sp pneum Meth. resistant Staph. aureus 12/12/22 21:15 Blood Culture (Wb) - Left Forearm Blood Culture - Preliminary No growth in 48 hours. 12/12/22 21:01 Blood Culture (Wb) - Port Blood Culture - Preliminary No growth in 48 hours. 12/13/22 15:25 Urine, Random Legionella Antigen - Final 12/13/22 15:25 Urine, Random Streptococcus pneumoniae Antigen (M - Final 12/13/22 02:40 Mucosa - Nasopharyngeal Respiratory Panel (PCR) - Final 12/12/22 20:34 Nasal Secretion SARS-CoV-2 Antigen (Rapid) - Final Physical Exam Narrative GENERAL: Appears cachectic HEENT: Atraumatic; trach collar in place EYES; Anicteric, Normal Conjunctiva NECK; supple, normal thyroid, RESPIRATORY: Diminished to auscultation CARDIOVASCULAR:?Irregular S1-S2 tachycardic GI:? soft, normoactive bowel sounds, : No Renal angle tenderness; EXTREMITIES:? No edema, no clubbing, MUSCULOSKELETAL:? no muscle wasting NEURO:? Awake;? no lateralizing signs. SKIN:? No Rash PSYCH; Flat? affect Assessment & Plan Assessment/Plan (1) Pneumonia: QUALIFIERS: Laterality: bilateral Lung location: lower lobe of lung Pneumonia type: due to methicillin-resistant Staphylococcus aureus (MRSA) Qualified Code(s): J15.212 - Pneumonia due to Methicillin resistant Staphylococcus aureus PLAN: Plan Patient is a 77-year-old gentleman with multiple comorbidities who was admitted with shortness of breath and tachycardia 1. Acute on chronic hypoxic respiratory failure ? Secondary to pneumonia with MDR's and mucous plugging. 2. Pneumonia with MDR's ? Cultures so far positive for gram-negative jamie possible Pseudomonas as well as MRSA and Klebsiella patient managed with broad-spectrum antibiotic to therapy including vancomycin as well as Zosyn in addition to supplemental oxygen 3. SVT ? Suspected to be precipitated by patient hypoxic respiratory failure and pneumonia resolved 4. Acute congestive heart failure with reduced ejection 2D echo showed EF of 35-40%, with moderate LV dysfunction with gloval LV hypokinesis and no significant valvular abnormality. Patient was started on furosemide consultation placed to cardiology 5. New onset A-fib with RVR ? Confirmed with an EKG patient started on Cardizem drip titrated to keep heart rate less than 100 patient was also started on apixaban. Cardiology on board 6. 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 Status post tracheostomy and PEG tube placement. Patient is followed by oncology as outpatient 7. 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 Status post PEG tube placement 8. Chronic hypoxic respiratory failure ? Secondary to laryngeal CA that is post tracheostomy 9. Chronic hypotension ? Patient is on midodrine 10. Severe protein calorie malnutrition ? As evidenced by inadequate oral intake secondary to patient multiple comorbi dities. Patient is currently n.p.o. and receives nutrition via PEG tube 11. Chronic pain syndrome ? Patient is on gabapentin 12. Hypothyroidism - Patient is on levothyroxine home dose continued 13. GERD ? Patient is on PPI 14. Chronic urinary retention secondary to BPH, Status post TURP on 04/20/2022. 15. DVT prophylaxis ? On apixaban Time spent in the patient's overall evaluation,decision-making process, review of diagnostic data, adjustment of management, discussion with other providers, nursing nursing and ancillary staff involved in patient's care documentation, 50 Minutes Charges/Coding Visit Charges Inpatient E&M: 95032 [facility] Hosp L3
[2022-12-16 09:40] LABS: Absolute Lymphocyte Count 0.63 X10^3/uL (0.83-4.51); Absolute Neutrophil Count 7.4 X10^3/uL (2.0-7.7); Hematocrit 40.3 % (40-54); Hemoglobin 12.7 g/dL (13.0-16.5); Lymphocyte # 0.63 X10^3/ul (0.83-4.51); Lymphocyte % 7.5 % (19-41); Mean Corp Hgb Conc 31.5 g/dL (32-36); Mean Corpuscular Hgb 31.1 pg (27.0-32.0); Mean Corpuscular Volume 98.8 fL (80-94); Mean Platelet Vol. 11.6 fl (6.2-12.0); Monocyte# 0.22 X10^3/uL; Monocyte% 2.6 % (0-10); NRBC Flagged by Analyzer 0.4 % (0-5); Neutrophil # 7.42 X10^3/uL (2.7-7.7); Neutrophil % 88.8 % (47-70); Platelet Count 209 K/mm3 (150-450); RBC Distribution Width CV 14.6 % (11.6-14.6); RBC Distribution Width SD 52.7 fl (35.1-43.9); Red Blood Count 4.08 M/mm3 (4.6-6.2); White Blood Count 8.4 K/mm3 (4.4-11.0)
[2022-12-16] MEDS: NYSTATIN 500,000 UNIT/5 ML UDC 500000 UNIT PO ×4 (09:48→21:10)
[2022-12-16] MEDS: Carvedilol 3.125 MG TABLET PO ×2 (09:48→20:50)
[2022-12-16] MEDS: Gabapentin 300 MG Capsule GT ×2 (09:48→20:50)
[2022-12-16] MEDS: Midodrine HCl 5 MG Tablet 10 MG GT ×3 (09:48→15:58)
[2022-12-16] MEDS: Furosemide 40 MG/4 ML Vial IV (09:49)
[2022-12-16] MEDS: BACITRACIN/POLYMYXIN B 15 GM Tube 1 APPLIC TOPICAL ×2 (09:51→21:03)
[2022-12-16 09:53] LABS: Anion Gap 8 (5-15); BUN 40 mg/dL (7-18); BUN/Creat Ratio 23.5 RATIO (10-20); Calcium,Total 9.3 mg/dL (8.5-10.1); Chloride 102 mmol/L (98-107); EST Glomerular Filtration Rate 42 mL/min (>60); Est Glom Filt Rate - Afr Amer 51 mL/min (>60); Estimated Creatinine Clearance 31.28 ml/min; Glucose 186 mg/dL (74-106); Magnesium 2.5 mg/dL (1.6-2.6); Potassium 3.4 mmol/L (3.5-5.1); Sodium Level 138 mmol/L (136-145)
[2022-12-16] MEDS: dilTIAZem 25 MG/5 ML Vial 10 MG IV BOLUS (10:20)
[2022-12-16] MEDS: Diltiazem 125 MG in Dextrose 5%-Water (100mL Bag) 100 ML CONT INF (10:44)
--- NOTE | 2022-12-16 13:55 | PN.CC_ITS ---
Assessment & Plan Assessment/Plan (1) Acute and chronic respiratory failure with hypoxia: (2) Pneumonia: QUALIFIERS: Pneumonia type: due to methicillin-resistant Staphylococcus aureus (MRSA) Laterality: bilateral Lung location: lower lobe of lung Qualified Code(s): J15.212 - Pneumonia due to Methicillin resistant Staphylococcus aureus (3) COPD with exacerbation: (4) LEV (acute kidney injury): (5) Tracheostomy in place: (6) Abnormal CT scan, chest: (7) Hypopharyngeal cancer: PLAN: Plan * Reviewed the patient's previous CT scan from November, there are new findings on admission. These are most likely consistent with an infectious process however given his history recommend repeat CT scan of the chest in 6 to 8 weeks to ensure resolution. Recommend at least 7 to 10 days of antibiotics * Continue current antibiotics. Sputum culture is growing Klebsiella and MRSA. Legionella and strep antigens are negative * Wean oxygen as tolerated he is currently on 6L * Continue nebulized DuoNebs and budesonide * Wean Solu-Medrol 40 every 12 hr * he appears to have worse kidney function today, Hold lasix and start gentle IVF hydration. consider switching zosyn to cefepime if further sensitivity reports allow as this combination is less likely to cause kidney issues Subjective Subjective No acute events, he was lying comfortably this AM when I evaluated him. He uses his PMV to speak when needed. Objective Data Objective Data Vital Signs:
--- NOTE | 2022-12-16 13:55 | PCM.PN.INT ---
Assessment & Plan Assessment/Plan (1) Acute and chronic respiratory failure with hypoxia: (2) Pneumonia: QUALIFIERS: Pneumonia type: due to methicillin-resistant Staphylococcus aureus (MRSA) Laterality: bilateral Lung location: lower lobe of lung Qualified Code(s): J15.212 - Pneumonia due to Methicillin resistant Staphylococcus aureus (3) COPD with exacerbation: (4) LEV (acute kidney injury): (5) Tracheostomy in place: (6) Abnormal CT scan, chest: (7) Hypopharyngeal cancer: PLAN: Plan Reviewed the patient's previous CT scan from November, there are new findings on admission. These are most likely consistent with an infectious process however given his history recommend repeat CT scan of the chest in 6 to 8 weeks to ensure resolution. Recommend at least 7 to 10 days of antibiotics Continue current antibiotics. Sputum culture is growing Klebsiella and MRSA. Legionella and strep antigens are negative Wean oxygen as tolerated he is currently on 6L Continue nebulized DuoNebs and budesonide Wean Solu-Medrol 40 every 12 hr he appears to have worse kidney function today, Hold lasix and start gentle IVF hydration. consider switching zosyn to cefepime if further sensitivity reports allow as this combination is less likely to cause kidney issues Subjective Subjective No acute events, he was lying comfortably this AM when I evaluated him. He uses his PMV to speak when needed. Objective Data Objective Data Vital Signs: Vital Signs Temp Pulse Resp BP Pulse Ox O2 Del Method O2 Flow Rate 36.4 C L 86 18 107/54 L 95 Trach Collar 6 12/16/22 11:30 12/16/22 13:00 12/16/22 13:00 12/16/22 13:00 12/16/22 13:00 12/16/22 13:00 12/16/22 13:00 FiO2 30 12/16/22 07:34 Oxygen Flow Rate (L/min) 6 Oxygen Delivery Method Trach Collar Weight: 58.9 kg Body Mass Index (BMI) 18.6 Intake & Output: Intake and Output for Last 24 Hours 12/14/22 12/15/22 12/16/22 23:59 23:59 23:59 Intake Total 2675 / 2972 3325.67 / 3325.67 171.33 / 171.33 Output Total 100 / 3250 5600 / 6050 700 / 700 Balance 2575 / -278 -2274.33 / -2724.33 -528.67 / -528.67 Lab / Micro Data 12/16/22 09:33 12/16/22 09:33 Labs: Laboratory Results - last 24 hr 12/16/22 09:33: WBC 8.4, RBC 4.08 L, Hgb 12.7 L, Hct 40.3, MCV 98.8 H, MCH 31.1, MCHC 31.5 L, RDW Std Deviation 52.7 H, RDW Coeff of Oz 14.6, Plt Count 209, MPV 11.6, Immature Gran % (Auto) 1.100 H, Neut % (Auto) 88.8 H, Lymph % (Auto) 7.5 L, [place] % (Auto) 2.6, Eos % (Auto) 0.0, Baso % (Auto) 0.0, Absolute Neuts (auto) 7.4, Absolute Lymphs (auto) 0.63 L, Nucleated RBC % 0.4, Sodium 138, Potassium 3.4 L, Chloride 102, Carbon Dioxide 28.0, Anion Gap 8, BUN 40 H, Creatinine 1.70 H, Estim Creat Clear Calc 31.28, Est GFR (MDRD) Af Amer 51 L, Est GFR (MDRD) Non-Af 42 L, BUN/Creatinine Ratio 23.5 H, Glucose 186 H, Calcium 9.3, Magnesium 2.5 Micro: Microbiology 12/13/22 07:05 Sputum, Expectorated/Coughed Gram Stain - Final 12/13/22 07:05 Sputum, Expectorated/Coughed Respiratory Culture - Preliminary GNR Poss Pseudomonas sp Gram negative jamie Staphylococcus aureus 12/12/22 21:45 Sputum, Tracheal Aspirate Gram Stain - Final 12/12/22 21:45 Sputum, Tracheal Aspirate Respiratory Culture - Final Klebsiella pneumoniae sp pneum Meth. resistant Staph. aureus 12/12/22 21:15 Blood Culture (Wb) - Left Forearm Blood Culture - Preliminary No growth in 48 hours. 12/12/22 21:01 Blood Culture (Wb) - Port Blood Culture - Preliminary No growth in 48 hours. 12/13/22 15:25 Urine, Random Legionella Antigen - Final 12/13/22 15:25 Urine, Random Streptococcus pneumoniae Antigen (M - Final 12/13/22 02:40 Mucosa - Nasopharyngeal Respiratory Panel (PCR) - Final 12/12/22 20:34 Nasal Secretion SARS-CoV-2 Antigen (Rapid) - Final Physical Exam Narrative GENERAL: Appears cachectic HEENT: Atraumatic; trach collar in place EYES; Anicteric, Normal Conjunctiva NECK; supple, normal thyroid, RESPIRATORY: Diminished to auscultation CARDIOVASCULAR:?Irregular S1-S2 tachycardic GI:? soft, normoactive bowel sounds NEURO:? Awake;? garbled speech Charges/Coding Visit Charges Inpatient E&M: 94501 Subs Hosp L3
[2022-12-16] MEDS: Vancomycin HCl 1,250 MG in 0.9% Normal Saline (250mL Bag) 250 ML 167 MG IV (13:59)
[2022-12-16] MEDS: Menthol/Lanolin/Calamine/Znox 113 GM Tube 1 APPLIC TOPICAL ×2 (14:09→17:39)
[2022-12-16] MEDS: 0.9% Normal Saline 1,000 ML 60 ML IV (15:09)
[2022-12-16] MEDS: Potassium Chloride Oral Soln 20 MEQ/15 ML UDC 40 MEQ GT (15:57)
[2022-12-16] MEDS: APIXABAN 2.5 MG TABLET (WCH) PO (20:51)
[2022-12-17] VITALS (11 sets, daily range): BP systolic 92–153; BP diastolic 62–90; PULSE 49–90; RESP 15–25; TEMP 36.2–36.7; O2SAT 95–98; BMI 18.6
--- NOTE | 2022-12-17 04:09 | PCM.HOSP.N ---
Hospitalist Note HR decreasing into 40-50s, will hold drip, currently at lowest setting.
[2022-12-17] MEDS: Levothyroxine 50 MCG Tablet GT (05:15)
[2022-12-17] MEDS: Jevity 1.5. 1,000 ML Bottle 237 ML GT ×4 (06:13→21:18)
[2022-12-17 06:30] LABS: Absolute Lymphocyte Count 0.61 X10^3/uL (0.83-4.51); Absolute Neutrophil Count 6.2 X10^3/uL (2.0-7.7); Basophil# 0.01 X10^3/uL; Basophil% 0.1 % (0-1); Hematocrit 39.1 % (40-54); Lymphocyte # 0.61 X10^3/ul (0.83-4.51); Lymphocyte % 8.6 % (19-41); Mean Corp Hgb Conc 30.7 g/dL (32-36); Mean Corpuscular Hgb 30.9 pg (27.0-32.0); Mean Corpuscular Volume 100.8 fL (80-94); Monocyte# 0.18 X10^3/uL; Monocyte% 2.5 % (0-10); NRBC Flagged by Analyzer 0.3 % (0-5); Neutrophil % 87.7 % (47-70); Platelet Count 204 K/mm3 (150-450); RBC Distribution Width CV 14.5 % (11.6-14.6); RBC Distribution Width SD 53.9 fl (35.1-43.9); Red Blood Count 3.88 M/mm3 (4.6-6.2); White Blood Count 7.1 K/mm3 (4.4-11.0)
[2022-12-17 07:01] LABS: Anion Gap 5 (5-15); BUN 43 mg/dL (7-18); BUN/Creat Ratio 28.5 RATIO (10-20); Calcium,Total 9.1 mg/dL (8.5-10.1); Chloride 104 mmol/L (98-107); Creatinine, Serum 1.51 mg/dL (0.70-1.30); EST Glomerular Filtration Rate 48 mL/min (>60); Est Glom Filt Rate - Afr Amer 58 mL/min (>60); Estimated Creatinine Clearance 35.39 ml/min; Glucose 116 mg/dL (74-106); Magnesium 2.3 mg/dL (1.6-2.6); Phosphorus 3.5 mg/dL (2.5-4.9); Potassium 3.7 mmol/L (3.5-5.1); Sodium Level 141 mmol/L (136-145)
[2022-12-17] MEDS: Budesonide Respules 0.5 MG/2 ML AMPUL.NEB. INHALATION (07:08)
--- NOTE | 2022-12-17 07:30 | EKG12_ITS ---
Test Reason : RYTHMN CHECK Blood Pressure : / mmHG Vent. Rate : 072 BPM Atrial Rate : 062 BPM P-R Int : 148 ms QRS Dur : 094 ms QT Int : 424 ms P-R-T Axes : 078 -08 019 degrees QTc Int : 464 ms Sinus rhythm with Premature supraventricular complexes and with occasional Premature ventricular comp lexes Otherwise normal ECG When compared with ECG of 16-DEC-2022 09:36, MANUAL COMPARISON REQUIRED, DATA IS UNCONFIRMED Confirmed by VALENCIA PALOMO, AKIL ([id number]), primer expeditor and drier JOSÉ ARROYO ([id number]) on 01/16/2023 1:53:31 PM Referred By: ARACELI Confirmed By:AKIL BIRMINGHAM MD
[2022-12-17] MEDS: 0.9% Normal Saline 1,000 ML 60 ML IV (07:42)
--- NOTE | 2022-12-17 10:19 | PN.CC_ITS ---
Assessment & Plan Assessment/Plan (1) Acute and chronic respiratory failure with hypoxia: (2) Pneumonia: QUALIFIERS: Pneumonia type: due to methicillin-resistant Staphylococcus aureus (MRSA) Laterality: bilateral Lung location: lower lobe of lung Qualified Code(s): J15.212 - Pneumonia due to Methicillin resistant Staphylococcus aureus (3) COPD with exacerbation: (4) LEV (acute kidney injury): (5) Tracheostomy in place: (6) Abnormal CT scan, chest: (7) Hypopharyngeal cancer: PLAN: Plan * Reviewed the patient's previous CT scan from November, there are new findings on admission. These are most likely consistent with an infectious process however given his history recommend repeat CT scan of the chest in 6 to 8 weeks to ensure resolution. Recommend at least 7 to 10 days of antibiotics * Continue current antibiotics. Sputum culture is growing Klebsiella and MRSA. Legionella and strep antigens are negative * Wean oxygen as tolerated he is currently on 6L * Continue nebulized DuoNebs and budesonide * Wean Solu-Medrol 40 every 12 hr, followed by prednisone 40mg 3 days * Kidney function appears to be improving . he is on IV fluid hydration. * Pulmonary will sign off please reach out with any questions or concerns Subjective Subjective No acute events. Patient reports feeling better. He reports that he has moderate secretions that are improving. He is satting well on 6 L Objective Data Objective Data Vital Signs: Vital Signs Temp Pulse Resp BP Pulse Ox O2 Del Method O2 Flow Rate 36.3 C L 81 16 112/65 97 Trach Collar 6 12/17/22 04:00 12/17/22 07:10 12/17/22 07:10 12/17/22 04:00 12/17/22 07:10 12/17/22 07:45 12/17/22 07:45 FiO2 30 12/17/22 07:10 Oxygen Flow Rate (L/min) 6 Oxygen Delivery Method Trach Collar Weight: 59.2 kg Body Mass Index (BMI) 18.6 Intake & Output: Intake and Output for Last 24 Hours 12/15/22 12/16/22 12/17/22 23:59 23:59 23:59 Intake Total 3325.67 / 3325.67 1056.33 / 1061.33 1069.25 / 1069.25 Output Total 5600 / 6050 1650 / 2050 776 / 776 Balance -2274.33 / -2724.33 -593.67 / -988.67 293.25 / 293.25 Lab / Micro Data 12/17/22 05:50 12/17/22 05:50 Labs: Laboratory Results - last 24 hr 12/17/22 05:50: WBC 7.1, RBC 3.88 L, Hgb 12.0 L, Hct 39.1 L, MCV 100.8 H, MCH 30.9, MCHC 30.7 L, RDW Std Deviation 53.9 H, RDW Coeff of Oz 14.5, Plt Count 204, MPV 12.0, Immature Gran % (Auto) 1.100 H, Neut % (Auto) 87.7 H, Lymph % (Auto) 8.6 L, [place] % (Auto) 2.5, Eos % (Auto) 0.0, Baso % (Auto) 0.1, Absolute Neuts (auto) 6.2, Absolute Lymphs (auto) 0.61 L, Nucleated RBC % 0.3, Sodium 141, Potassium 3.7, Chloride 104, Carbon Dioxide 32.0, Anion Gap 5, BUN 43 H, Creatinine 1.51 H, Estim Creat Clear Calc 35.39, Est GFR (MDRD) Af Amer 58 L, Est GFR (MDRD) Non-Af 48 L, BUN/Creatinine Ratio 28.5 H, Glucose 116 H, Calcium 9.1, Phosphorus 3.5, Magnesium 2.3 Micro: Microbiology 12/13/22 07:05 Sputum, Expectorated/Coughed Gram Stain - Final 12/13/22 07:05 Sputum, Expectorated/Coughed Respiratory Culture - Final Pseudomonas aeruginosa Klebsiella pneumoniae sp pneum Meth. resistant Staph. aureus 12/12/22 21:45 Sputum, Tracheal Aspirate Gram Stain - Final 12/12/22 21:45 Sputum, Tracheal Aspirate Respiratory Culture - Final Klebsiella pneumoniae sp pneum Meth. resistant Staph. aureus 12/12/22 21:15 Blood Culture (Wb) - Left Forearm Blood Culture - Preliminary No growth in 48 hours. 12/12/22 21:01 Blood Culture (Wb) - Port Blood Culture - Preliminary No growth in 48 hours. 12/13/22 15:25 Urine, Random Legionella Antigen - Final 12/13/22 15:25 Urine, Random Streptococcus pneumoniae Antigen (M - Final 12/13/22 02:40 Mucosa - Nasopharyngeal Respiratory Panel (PCR) - Final 12/12/22 20:34 Nasal Secretion SARS-CoV-2 Antigen (Rapid) - Final Physical Exam Narrative GENERAL: Appears cachectic HEENT: Atraumatic; trach collar in place EYES; Anicteric, Normal Conjunctiva NECK; supple, normal thyroid, RESPIRATORY: Diminished to auscultation CARDIOVASCULAR:?Irregular S1-S2 tachycardic GI:? soft, normoactive bowel sounds NEURO:? Awake;? garbled speech Charges/Coding Visit Charges Inpatient E&M: 45117 Subs Hosp L2
[2022-12-17] MEDS: Methylprednisolone Sod Succ 40 MG/ML VIAL IV ×2 (10:38→21:23)
[2022-12-17] MEDS: Midodrine HCl 5 MG Tablet 10 MG GT ×3 (10:38→16:46)
[2022-12-17] MEDS: Gabapentin 300 MG Capsule GT ×2 (10:38→21:23)
[2022-12-17] MEDS: NYSTATIN 500,000 UNIT/5 ML UDC 500000 UNIT PO ×4 (10:38→21:22)
[2022-12-17] MEDS: APIXABAN 2.5 MG TABLET (WCH) PO ×2 (10:38→21:22)
[2022-12-17] MEDS: Carvedilol 3.125 MG TABLET PO ×2 (10:38→21:25)
[2022-12-17] MEDS: BACITRACIN/POLYMYXIN B 15 GM Tube 1 APPLIC TOPICAL ×2 (10:39→21:17)
[2022-12-17] MEDS: Menthol/Lanolin/Calamine/Znox 113 GM Tube 1 APPLIC TOPICAL ×3 (10:39→21:18)
--- NOTE | 2022-12-17 10:40 | NURSING ---
Offered patient his tube feed and he declined at this time Stating my will be here soon and she'll do it
[2022-12-17] MEDS: Lansoprazole 15 MG Capsule.DR GT (10:45)
[2022-12-17] MEDS: 0.9% Saline Lock 10 ML Syringe IV (10:57)
--- NOTE | 2022-12-17 12:32 | PCM.PN.HOSP ---
Subjective Subjective Doing well, he was started on Cardizem overnight which lowered his heart rate significantly so this was discontinued. Currently this afternoon he feels very well and almost back to baseline Objective Data Objective Data Vital Signs: Vital Signs Temp Pulse Resp BP Pulse Ox O2 Del Method O2 Flow Rate 97.2 F L 63 15 116/75 96 Trach Collar 6 12/17/22 10:10 12/17/22 10:10 12/17/22 10:10 12/17/22 10:10 12/17/22 10:10 12/17/22 10:10 12/17/22 10:10 FiO2 30 12/17/22 07:10 Oxygen Flow Rate (L/min) 6 Oxygen Delivery Method Trach Collar Weight: 130 lb 8.218 oz Body Mass Index (BMI) 18.6 Intake & Output: Intake and Output for Last 24 Hours 12/16/22 12/17/22 12/18/22 03:59 03:59 03:59 Intake Total 3028.67 / 3028.67 1076.33 / 1081.33 1149.25 / 1149.25 Output Total 2900 / 2900 1600 / 1600 376 / 376 Balance 128.67 / 128.67 -523.67 / -518.67 773.25 / 773.25 Lab / Micro Data 12/17/22 05:50 12/17/22 05:50 Labs: Laboratory Results - last 24 hr 12/17/22 05:50: WBC 7.1, RBC 3.88 L, Hgb 12.0 L, Hct 39.1 L, MCV 100.8 H, MCH 30.9, MCHC 30.7 L, RDW Std Deviation 53.9 H, RDW Coeff of Oz 14.5, Plt Count 204, MPV 12.0, Immature Gran % (Auto) 1.100 H, Neut % (Auto) 87.7 H, Lymph % (Auto) 8.6 L, [place] % (Auto) 2.5, Eos % (Auto) 0.0, Baso % (Auto) 0.1, Absolute Neuts (auto) 6.2, Absolute Lymphs (auto) 0.61 L, Nucleated RBC % 0.3, Sodium 141, Potassium 3.7, Chloride 104, Carbon Dioxide 32.0, Anion Gap 5, BUN 43 H, Creatinine 1.51 H, Estim Creat Clear Calc 35.39, Est GFR (MDRD) Af Amer 58 L, Est GFR (MDRD) Non-Af 48 L, BUN/Creatinine Ratio 28.5 H, Glucose 116 H, Calcium 9.1, Phosphorus 3.5, Magnesium 2.3 Micro: Microbiology 12/13/22 07:05 Sputum, Expectorated/Coughed Gram Stain - Final 12/13/22 07:05 Sputum, Expectorated/Coughed Respiratory Culture - Final Pseudomonas aeruginosa Klebsiella pneumoniae sp pneum Meth. resistant Staph. aureus 12/12/22 21:45 Sputum, Tracheal Aspirate Gram Stain - Final 12/12/22 21:45 Sputum, Tracheal Aspirate Respiratory Culture - Final Klebsiella pneumoniae sp pneum Meth. resistant Staph. aureus 12/12/22 21:15 Blood Culture (Wb) - Left Forearm Blood Culture - Preliminary No growth in 48 hours. 12/12/22 21:01 Blood Culture (Wb) - Port Blood Culture - Preliminary No growth in 48 hours. 12/13/22 15:25 Urine, Random Legionella Antigen - Final 12/13/22 15:25 Urine, Random Streptococcus pneumoniae Antigen (M - Final 12/13/22 02:40 Mucosa - Nasopharyngeal Respiratory Panel (PCR) - Final 12/12/22 20:34 Nasal Secretion SARS-CoV-2 Antigen (Rapid) - Final Physical Exam Narrative General: Alert, Oriented x3, Cooperative, No apparent distress HEENT: Atraumatic, PERRLA, EOMI, Normocephalic, trach in place Oral: Moist Mucosa Neck: Supple, No JVD Lungs: Diminished, Normal air movement, No rhonchi, No wheeze, No rales Cardiovascular: Regular rate, Regular Rhythm, Normal S1, Normal S2, No murmurs Abdomen: Soft, Non Tender, Non-Distended, No Hepato-splenomegaly, PEG tube in place Extremities: No edema, Capillary Refill Less than 3 Seconds Skin: No rashes, No breakdown Musculoskeletal: No Tenderness to Palpation of Joints or Extremities Neurological: Motor Exam 5/5 strength throughout, Sensory exam intact to light touch and pain Psych/Mental Status: Normal Affect, Appropriate Assessment & Plan Assessment/Plan (1) Pneumonia: QUALIFIERS: Pneumonia type: due to methicillin-resistant Staphylococcus aureus (MRSA) Laterality: bilateral Lung location: lower lobe of lung Qualified Code(s): J15.212 - Pneumonia due to Methicillin resistant Staphylococcus aureus PLAN: Plan 1. Acute on chronic hypoxic respiratory failure due to pneumonia with Klebsiella, Pseudomonas, MRSA ? Respiratory status is back to baseline, he is requiring 5 to 6 L trach mask ? Continue with will transition to Levaquin as all organisms are sensitive ? Appreciate registered health nurse assistance, will transition to p.o. prednisone in the morning 2. Acute systolic CHF exacerbation/SVT versus new onset A-fib with RVR ? He was started on a low-dose of Coreg however he did not tolerate a Cardizem drip ? We will continue with midodrine for blood pressure support ? 2D echo showed EF of 35-40%, with moderate LV dysfunction with gloval LV hypokinesis and no significant valvular abnormality. Patient was started on furosemide consultation placed to cardiology ?Appreciate cardiology's assistance 3. 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 First diagnosed in 2006 treated with chemo and radiation. Status post tracheostomy and PEG tube placement. Patient is followed by oncology as outpatient ? Continue with PEG tube and tube feeds ? We will consult nutrition to assist with his malnutrition 4. Chronic pain syndrome ? Stable ? Patient is on gabapentin 5. Hypothyroidism ? Stable - Patient is on levothyroxine home dose continued 6. GERD ? Stable ? Patient is on PPI 7. Chronic urinary retention secondary to BPH, Status post TURP on 04/20/2022. DVT: Eliquis Charges/Coding Visit Charges Inpatient E&M: 63051 Subs Hosp L2
[2022-12-17] MEDS: Vancomycin HCl 1,250 MG in 0.9% Normal Saline (250mL Bag) 250 ML 167 MG IV (13:02)
[2022-12-17] MEDS: levoFLOXacin IV 500 MG/100 ML BAG 100 MG IV (14:54)
[2022-12-18] MEDS: 0.9% Normal Saline 1,000 ML 60 ML IV (01:15)
[2022-12-18 03:49] VITALS: BMI 19.0
[2022-12-18 04:00] VITALS: BP 140/89; PULSE 64; RESP 26; TEMP 36.4; O2SAT 95
[2022-12-18] MEDS: Levothyroxine 50 MCG Tablet GT (05:38)
[2022-12-18 06:00] VITALS: BP 140/83; PULSE 74; RESP 23; TEMP 36.4; O2SAT 96
[2022-12-18] MEDS: Jevity 1.5. 1,000 ML Bottle 237 ML GT ×2 (06:26→10:47)
[2022-12-18 08:47] VITALS: O2SAT 97
[2022-12-18 09:17] LABS: Anion Gap 4 (5-15); BUN 38 mg/dL (7-18); BUN/Creat Ratio 32.2 RATIO (10-20); Calcium,Total 8.9 mg/dL (8.5-10.1); Chloride 107 mmol/L (98-107); Creatinine, Serum 1.18 mg/dL (0.70-1.30); EST Glomerular Filtration Rate 64 mL/min (>60); Est Glom Filt Rate - Afr Amer 77 mL/min (>60); Estimated Creatinine Clearance 46.13 ml/min; Glucose 211 mg/dL (74-106); Potassium 3.7 mmol/L (3.5-5.1); Sodium Level 140 mmol/L (136-145)
[2022-12-18 09:48] VITALS: O2SAT 88; O2SAT 94; O2SAT 96
[2022-12-18] MEDS: NYSTATIN 500,000 UNIT/5 ML UDC 500000 UNIT PO (10:46)
[2022-12-18] MEDS: Menthol/Lanolin/Calamine/Znox 113 GM Tube 1 APPLIC TOPICAL (10:47)
[2022-12-18] MEDS: Lansoprazole 15 MG Capsule.DR GT (10:47)
[2022-12-18] MEDS: Midodrine HCl 5 MG Tablet 10 MG GT (10:47)
[2022-12-18] MEDS: predniSONE 20 MG Tablet 40 MG PO (10:47)
[2022-12-18] MEDS: Gabapentin 300 MG Capsule GT (10:47)
[2022-12-18] MEDS: Carvedilol 3.125 MG TABLET PO (10:47)
[2022-12-18] MEDS: APIXABAN 2.5 MG TABLET (WCH) PO (10:48)
[2022-12-18] MEDS: BACITRACIN/POLYMYXIN B 15 GM Tube 1 APPLIC TOPICAL (10:48)
[2022-12-18] MEDS: levoFLOXacin IV 250 MG/50 ML BAG 50 MG IV (10:49)
--- NOTE | 2022-12-18 11:17 | DCINST_ITS ---
Discharge Instructions Activity Discharge Activity: Return to Normal Activity Dressing / Incision Call your doctor if you observe: Fever of 101 or Higher, Shortness of breath, Dizziness, Fainting spells, Swelling in the ankles, Chest pain and Increased palpitations (irregular heartbeat) Follow Up Care Test Results: Test results from this visit will be discussed in further detail at your follow- up appointment, if applicable. Discharge Plan Admission Admit Date/Time: 12/13/22 01:41 Attending Provider: Colt Alan Primary Care Provider: Alejandro Liu Consulting Providers: Candi Matthews; Colt Alan; Mesha Lafleur; Hebert Camarena; Stuart Polo; Roberto Roe; Santos Marino; Dean Renee; Kayleen Callejas NP; Gabriella Cisse; Larry Hopper Discharge Orders/Prescriptions Prescriptions: New Eliquis 5 mg Tablet 2.5 mg PO BID 30 Days Qty: 30 0RF prednisone 20 mg Tablet 40 mg PO BREAKFAST 7 Days Qty: 14 0RF carvedilol 3.125 mg Tablet 3.125 mg PO BID 30 Days Qty: 60 0RF furosemide [Lasix] 40 mg tablet 40 mg PO DAILY Qty: 30 0RF levofloxacin 500 mg tablet 500 mg PO DAILY 5 Days Qty: 5 0RF Continued guaifenesin 200 mg/5 mL liquid 400 mg PO Q6H PRN (Reason: cough) Qty: 473 6RF omeprazole 20 mg capsule,delayed release(DR/EC) 20 mg PO DAILY prednisolone sodium phosphate 15 mg/5 mL (5 mL) solution 15 mg PO DAILY Qty: 250 4RF Avastin 25 mg/mL Solution 25 mg intravitreal QMONTH lactose-reduced food with fibr 237 ML liquid 237 ml GT Q4H midodrine 5 mg Tablet 5 mg feeding tube TID Rx Instructions: do not give last dose of day after 6PM or within 4 hrs of bedtime levothyroxine 50 mcg tablet See Rx Instructions .ROUTE .COMPLEX Qty: 90 5RF Dose Instruction: TAKE 1 TABLET BY MOUTH EVERY DAY Rx Instructions: TAKE 1 TABLET BY MOUTH EVERY DAY budesonide 0.5 mg/2 mL suspension for nebulization 0.5 mg inhalation BID Qty: 120 6RF ipratropium-albuterol 0.5 mg-3 mg(2.5 mg base)/3 mL solution for nebulization 3 ml inhalation Q4H PRN (Reason: shortness of breath or wheezing) Qty: 180 6RF Robitussin Cough and Cold CF 2.5-5-50 mg/5 mL liquid 15 ml PO Q4H PRN (Reason: cold symptoms) Qty: 118 1RF ondansetron 8 mg tablet,disintegrating 8 mg PO Q8H PRN (Reason: nausea and vomiting) Qty: 30 0RF gabapentin 300 mg capsule 300 mg feeding tube BID Qty: 60 11RF Rx Instructions: Via G-tube. lidocaine-prilocaine 2.5-2.5 % cream 50 g topical ONCE Qty: 30 3RF Discontinued sulfamethoxazole-trimethoprim 200-40 mg/5 mL suspension 20 ml PO BID Qty: 473 0RF Referrals / Follow Up: Alejandro Liu PA [Primary Care Provider] - Within 1 Week Mariela Carlton PA [Med Staff - [facility] Practice Prof] - Within 1 Month Disposition Disposition (needs filled in before D/C Order can be placed): Home, Self Care
[2022-12-18 11:25] VITALS: BP 130/77; PULSE 78; RESP 18; TEMP 37.1; O2SAT 96
--- NOTE | 2022-12-18 12:19 | CASEMGMT ---
Patient has order for discharge. Patient did not require increase in home oxygen orders. Discharge plan update with current home oxygen orders. Patient is discharging on Eliquis, RN EVELYN called [facility] and cost for Eliquis is $103.02. LORRIE RIVAS in to update patient regarding Eliquis cost and savings card provided. Patient denied further needs at discharge. Patient had no further questions or concerns.
--- NOTE | 2022-12-18 14:08 | PCM.DC.SUM ---
Providers Date of Admission: 12/13/22 Primary Care Physician: LEÓN Fung Consultations 12/14/22 17:13 Consult: Cardiology Routine Consulting Provider: Mesha Lafleur Reason for Consult: cardiomyopathy per echo EMERGENT Consult: No MD Notified: Yes Date Notified: 12/14/22 Time Notified: 17:13 Method of Notification: Text 12/14/22 17:15 Consult: Personal Financial Advisor / Pulmonary Medicine Routine Consulting Provider: Pulmonary Medicine michael Philpot Reason for Consult: acute on chronic hypoxic respiratory failure EMERGENT Consult: No MD Notified: Yes Date Notified: 12/14/22 Time Notified: 17:15 Method of Notification: Text Reason For Visit: ACUTE ON CHRONIC FR, PNA BL, COPD, SVT Diagnosis Discharge Diagnosis (1) Pneumonia: Status: Acute Code(s): J18.9 - Pneumonia, unspecified organism Qualifiers: Pneumonia type: due to methicillin-resistant Staphylococcus aureus (MRSA) Laterality: bilateral Lung location: lower lobe of lung Qualified Code(s): J15.212 - Pneumonia due to Methicillin resistant Staphylococcus aureus Medications at Discharge Home Medications lactose-reduced food with fiber 0.06 gram-1.5 kcal/mL oral liquid 237 ml G-tube Q4H nutrition 09/09/18 midodrine 5 mg tablet 5 mg feeding tube TID 04/17/22 guaifenesin 200 mg/5 mL oral liquid 400 mg (10 mL) PO Q6H PRN cough #473 mL 06/05/22 levothyroxine 50 mcg tablet See Rx Instructions .Route .COMPLEX #90 TABLETS 06/22/22 omeprazole 20 mg capsule,delayed release 20 mg PO DAILY 06/25/22 bevacizumab 25 mg/mL intravenous solution (Avastin) 25 mg intravitreal QMONTH 08/10/22 budesonide 0.5 mg/2 mL suspension for nebulization 0.5 mg (2 mL) inhalation BID #120 mL 08/13/22 ipratropium 0.5 mg-albuterol 3 mg (2.5 mg base)/3 mL nebulization soln 3 ml inhalation Q4H PRN shortness of breath or wheezing #180 mL 08/14/22 vllkmejfwwxqb-OA-wqeefrjkhpe 2.5 mg-5 mg-50 mg/5 mL oral liquid (Robitussin Cough and Cold CF) 15 ml PO Q4H PRN cold symptoms #118 mL 10/05/22 ondansetron 8 mg disintegrating tablet 8 mg PO Q8H PRN nausea and vomiting #30 tabs 11/13/22 gabapentin 300 mg capsule 300 mg feeding tube BID #60 caps 11/30/22 lidocaine-prilocaine 2.5 %-2.5 % topical cream 50 g topical ONCE #30 grams 11/30/22 prednisolone sodium phosphate 15 mg/5 mL (5 mL) oral solution 15 mg (5 mL) PO DAILY #250 mL 12/03/22 apixaban 5 mg tablet (Eliquis) 2.5 mg (1/2 x 5 mg) PO BID 30 days #30 tabs 12/18/22 carvedilol 3.125 mg tablet 3.125 mg PO BID 30 days #60 tabs 12/18/22 furosemide 40 mg tablet (Lasix) 40 mg PO DAILY #30 tabs 12/18/22 levofloxacin 500 mg tablet 500 mg PO DAILY 5 days #5 tabs 12/18/22 prednisone 20 mg tablet 40 mg (2 x 20 mg) PO BREAKFAST 7 days #14 tabs 12/18/22 Hospital Course Summary of Care Provided Hospital Course: Per HPI: Hospital Course: 1. Acute on chronic hypoxic respiratory failure due to pneumonia with Klebsiella, Pseudomonas, MRSA ? Respiratory status is back to baseline ? Continue with will transition to Levaquin as all organisms are sensitive ? Appreciate icu registered nurse assistance, will transition to p.o. prednisone in the morning ? We will plan for discharge for another 5 days on p.o. Levaquin via his PEG tube. I discussed with him the plan for discharge today he expressed understanding of the risk benefits of going home and would like to go home today. We will still plan for another 5 to 7 days of p.o. prednisone 2. Acute systolic CHF exacerbation/SVT versus new onset A-fib with RVR ? He was started on a low-dose of Coreg however he did not tolerate a Cardizem drip ? We will continue with midodrine for blood pressure support ? 2D echo showed EF of 35-40%, with moderate LV dysfunction with gloval LV hypokinesis and no significant valvular abnormality. Patient was started on furosemide consultation placed to cardiology ?Appreciate cardiology's assistance ? He was able to tolerate a low-dose of Coreg for his A-fib and will place him on Eliquis on discharge. We will also plan for Lasix on discharge given his systolic dysfunction hopefully he will be able to come off the midodrine in the future and I do recommend outpatient follow-up with cardiology 3. 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 First diagnosed in 2006 treated with chemo and radiation. Status post tracheostomy and PEG tube placement. Patient is followed by oncology as outpatient ? Continue with PEG tube and tube feeds ? We will consult nutrition to assist with his malnutrition 4. Chronic pain syndrome ? Stable ? Patient is on gabapentin 5. Hypothyroidism ? Stable - Patient is on levothyroxine home dose continued 6. GERD ? Stable ? Patient is on PPI 7. Chronic urinary retention secondary to BPH, Status post TURP on 04/20/2022. Physical Exam Narrative General: Alert, Oriented x3, Cooperative, No apparent distress HEENT: Atraumatic, PERRLA, EOMI, Normocephalic, trach in place Oral: Moist Mucosa Neck: Supple, No JVD Lungs: Diminished, Normal air movement, No rhonchi, No wheeze, No rales Cardiovascular: Regular rate, Regular Rhythm, Normal S1, Normal S2, No murmurs Abdomen: Soft, Non Tender, Non-Distended, No Hepato-splenomegaly, PEG tube in place Extremities: No edema, Capillary Refill Less than 3 Seconds Skin: No rashes, No breakdown Musculoskeletal: No Tenderness to Palpation of Joints or Extremities Neurological: Motor Exam 5/5 strength throughout, Sensory exam intact to light touch and pain Psych/Mental Status: Normal Affect, Appropriate Weight / BMI Weight Weight: 132 lb 15.02 oz Body Mass Index (BMI) 19.0 ABG / Lab / Microbiology Data 12/17/22 05:50 12/18/22 08:40 Laboratory: Laboratory Results - last 24 hr 12/18/22 08:40: Sodium 140, Potassium 3.7, Chloride 107, Carbon Dioxide 29.0, Anion Gap 4 L, BUN 38 H, Creatinine 1.18, Estim Creat Clear Calc 46.13, Est GFR (MDRD) Af Amer 77, Est GFR (MDRD) Non-Af 64, BUN/Creatinine Ratio 32.2 H, Glucose 211 H, Calcium 8.9 Microbiology: Microbiology 12/12/22 21:15 Blood Culture (Wb) - Left Forearm Blood Culture - Final No growth in 5 days. 12/12/22 21:01 Blood Culture (Wb) - Port Blood Culture - Final No growth in 5 days. 12/13/22 07:05 Sputum, Expectorated/Coughed Gram Stain - Final 12/13/22 07:05 Sputum, Expectorated/Coughed Respiratory Culture - Final Pseudomonas aeruginosa Klebsiella pneumoniae sp pneum Meth. resistant Staph. aureus 12/12/22 21:45 Sputum, Tracheal Aspirate Gram Stain - Final 12/12/22 21:45 Sputum, Tracheal Aspirate Respiratory Culture - Final Klebsiella pneumoniae sp pneum Meth. resistant Staph. aureus 12/13/22 15:25 Urine, Random Legionella Antigen - Final 12/13/22 15:25 Urine, Random Streptococcus pneumoniae Antigen (M - Final 12/13/22 02:40 Mucosa - Nasopharyngeal Respiratory Panel (PCR) - Final 12/12/22 20:34 Nasal Secretion SARS-CoV-2 Antigen (Rapid) - Final D/C Instructions Call your doctor if you observe: Fever of 101 or Higher, Shortness of breath, Dizziness, Fainting spells, Swelling in the ankles, Chest pain and Increased palpitations (irregular heartbeat) Meaningful Use Info Meaningful Use Diagnoses (Choose all that apply): None applicable Discharge Plan Admission Admit Date/Time: 12/13/22 01:41 Attending Provider: Colt Alan Primary Care Provider: Alejandro Liu Consulting Providers: Candi Matthews; Colt Alan; Mesha Lafleur; Hebert Camarena; Stuart Polo; Roberto Roe; Santos Marino; Dean Renee; Kayleen Callejas NP; Gabriella Cisse; Larry Hopper Discharge Orders/Prescriptions Prescriptions: New Eliquis 5 mg Tablet 2.5 mg PO BID 30 Days Qty: 30 0RF prednisone 20 mg Tablet 40 mg PO BREAKFAST 7 Days Qty: 14 0RF carvedilol 3.125 mg Tablet 3.125 mg PO BID 30 Days Qty: 60 0RF furosemide [Lasix] 40 mg tablet 40 mg PO DAILY Qty: 30 0RF levofloxacin 500 mg tablet 500 mg PO DAILY 5 Days Qty: 5 0RF Continued guaifenesin 200 mg/5 mL liquid 400 mg PO Q6H PRN (Reason: cough) Qty: 473 6RF omeprazole 20 mg capsule,delayed release(DR/EC) 20 mg PO DAILY prednisolone sodium phosphate 15 mg/5 mL (5 mL) solution 15 mg PO DAILY Qty: 250 4RF Avastin 25 mg/mL Solution 25 mg intravitreal QMONTH lactose-reduced food with fibr 237 ML liquid 237 ml GT Q4H midodrine 5 mg Tablet 5 mg feeding tube TID Rx Instructions: do not give last dose of day after 6PM or within 4 hrs of bedtime levothyroxine 50 mcg tablet See Rx Instructions .ROUTE .COMPLEX Qty: 90 5RF Dose Instruction: TAKE 1 TABLET BY MOUTH EVERY DAY Rx Instructions: TAKE 1 TABLET BY MOUTH EVERY DAY budesonide 0.5 mg/2 mL suspension for nebulization 0.5 mg inhalation BID Qty: 120 6RF ipratropium-albuterol 0.5 mg-3 mg(2.5 mg base)/3 mL solution for nebulization 3 ml inhalation Q4H PRN (Reason: shortness of breath or wheezing) Qty: 180 6RF Robitussin Cough and Cold CF 2.5-5-50 mg/5 mL liquid 15 ml PO Q4H PRN (Reason: cold symptoms) Qty: 118 1RF ondansetron 8 mg tablet,disintegrating 8 mg PO Q8H PRN (Reason: nausea and vomiting) Qty: 30 0RF gabapentin 300 mg capsule 300 mg feeding tube BID Qty: 60 11RF Rx Instructions: Via G-tube. lidocaine-prilocaine 2.5-2.5 % cream 50 g topical ONCE Qty: 30 3RF Discontinued sulfamethoxazole-trimethoprim 200-40 mg/5 mL suspension 20 ml PO BID Qty: 473 0RF Referrals / Follow Up: Alejandro Liu PA [Primary Care Provider] - 12/27/22 11:20 am Mariela Carlton PA [Med Staff - Adv Practice Prof] - 01/15/23 9:30 am Disposition Disposition (needs filled in before D/C Order can be placed): Home, Self Care Charges/Coding Visit Charges Inpatient E&M: 32407 Disch Hosp >30min
== END 2022-12-18 13:44 | disposition home or self-care (01) | DRG 177 ==
LOC: ED 12-13 01:34 → PCU 12-13 01:46
PROVIDERS: Internal Medicine; Student in an Organized Health Care Education/Training Program; Admitting Provider Family Medicine; Emergency Provider Emergency Medicine; PCP Physician Assistant; Visit Provider Family Medicine
DX: J15.212 Pneumonia due to Methicillin resistant Staphylococcus aureus (principal); J96.21 Acute and chronic respiratory failure with hypoxia; I50.21 Acute systolic (congestive) heart failure; E43 Unspecified severe protein-calorie malnutrition; I47.1 Supraventricular tachycardia; N17.9 Acute kidney failure, unspecified; I13.0 Hypertensive heart and chronic kidney disease with heart failure and stage 1 through stage 4 chronic kidney disease, or unspecified chronic kidney disease; C78.00 Secondary malignant neoplasm of unspecified lung; J44.0 Chronic obstructive pulmonary disease with (acute) lower respiratory infection; J44.1 Chronic obstructive pulmonary disease with (acute) exacerbation; Z68.1 Body mass index [BMI] 19.9 or less, adult; D70.1 Agranulocytosis secondary to cancer chemotherapy; C14.0 Malignant neoplasm of pharynx, unspecified; B95.62 Methicillin resistant Staphylococcus aureus infection as the cause of diseases classified elsewhere; B96.5 Pseudomonas (aeruginosa) (mallei) (pseudomallei) as the cause of diseases classified elsewhere; B96.1 Klebsiella pneumoniae [K. pneumoniae] as the cause of diseases classified elsewhere; C32.9 Malignant neoplasm of larynx, unspecified; N18.30 Chronic kidney disease, stage 3 unspecified; I48.91 Unspecified atrial fibrillation; J69.0 Pneumonitis due to inhalation of food and vomit; Z93.0 Tracheostomy status; J15.20 Pneumonia due to staphylococcus, unspecified; D53.9 Nutritional anemia, unspecified; E03.9 Hypothyroidism, unspecified; I95.1 Orthostatic hypotension; K21.9 Gastro-esophageal reflux disease without esophagitis; G62.9 Polyneuropathy, unspecified; Z79.2 Long term (current) use of antibiotics; Z87.891 Personal history of nicotine dependence; Z79.51 Long term (current) use of inhaled steroids; Z80.0 Family history of malignant neoplasm of digestive organs; Z92.3 Personal history of irradiation; T45.1X5A Adverse effect of antineoplastic and immunosuppressive drugs, initial encounter; G89.4 Chronic pain syndrome; Z92.21 Personal history of antineoplastic chemotherapy; R13.12 Dysphagia, oropharyngeal phase
CPT/HCPCS: 31720; 36415; 36591; 71045; 71275; 80048; 80053; 80202; 83605; 83735; 83880; 84100; 84439; 84443; 84484; 85025; 85610; 85730; 87040; 87070; 87077; 87184; 87186; 87205; 87449; 87633; 87640; 87811; 92610; 93005; 93306; 94640; 94760; 94762; 96360; 96361; 97110; 97162; 97166; 97530; 97535; 97802; 99252; 99285; J7030; J7040; J7050; Q9967; A4216; G0463; J0696; J1940

== ENCOUNTER 2023-01-13 17:18 | Inpatient (IN) | payer MEDICARE, OTHER, SELFPAY ==
[2023-01-13] VITALS (8 sets, daily range): BP systolic 97–124; BP diastolic 51–89; PULSE 82–136; RESP 18–24; TEMP 36.4–37.3; O2SAT 94–98; BMI 19.4; BMI 18.1
--- NOTE | 2023-01-13 17:42 | EKG12_ITS ---
Test Reason : Blood Pressure : / mmHG Vent. Rate : 106 BPM Atrial Rate : 106 BPM P-R Int : 126 ms QRS Dur : 072 ms QT Int : 324 ms P-R-T Axes : 072 -01 045 degrees QTc Int : 430 ms Sinus tachycardia with Premature supraventricular complexes and with occasional Premature ventricular complexes Otherwise normal ECG Confirmed by VALENCIA PALOMO, AKIL ([id number]), editor book YARI VICTORIA ([id number]) on 01/15/2023 12:41:58 PM Referred By: Confirmed By:AKIL BIRMINGHAM MD
--- NOTE | 2023-01-13 17:46 | EDS_ITS ---
<Statement entered by Jeffery Cast MD - 01/14/23 15:20> I have personally performed a face to face assessment of the patient and have reviewed the TRANG Note. HPI History of Present Illness Chief Complaint: Shortness of Breath Narrative Narrative: Of laryngeal cancer, he has a tracheostomy and PEG tube, he has a history of respiratory failure, persistent pneumonia which could be aspiration pneumonia, it has been diagnosed as Klebsiella, Pseudomonas and MRSA pneumonia on his last admission last month. Patient apparently developed an episode of significant shortness of breath at home, he was not as responsive and per his pulse ox was 54%. This was on his 4 L of trach mask. Paramedics was called, by the time the patient arrived he had improved. noted a subjective fever yesterday and was given Tylenol. Patient had vomiting the last 3 days in a row. He is usually n.p.o. but he vomits after tube feedings. 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 Shortness of breath on exertion Thrush, oral Tracheostomy in place tracheotomy and laryngeal biopsy Wears glasses Home Medications lactose-reduced food with fiber 0.06 gram-1.5 kcal/mL oral liquid 237 ml G-tube Q4H nutrition 09/09/18 [History Last Taken 04/19/22] midodrine 5 mg tablet 5 mg feeding tube TID 04/17/22 [History Last Taken 04/20/22 06:00] guaifenesin 200 mg/5 mL oral liquid 400 mg (10 mL) PO Q6H PRN cough #473 mL 06/05/22 [Rx Last Taken Unknown] levothyroxine 50 mcg tablet See Rx Instructions .Route .COMPLEX #90 TABLETS 06/22/22 [Rx Last Taken Unknown] omeprazole 20 mg capsule,delayed release 20 mg PO DAILY 06/25/22 [History Last Taken Unknown] bevacizumab 25 mg/mL intravenous solution (Avastin) 25 mg intravitreal QMONTH 08/10/22 [History Last Taken Unknown] budesonide 0.5 mg/2 mL suspension for nebulization 0.5 mg (2 mL) inhalation BID #120 mL 08/13/22 [Rx Last Taken Unknown] ipratropium 0.5 mg-albuterol 3 mg (2.5 mg base)/3 mL nebulization soln 3 ml inhalation Q4H PRN shortness of breath or wheezing #180 mL 08/14/22 [Rx Last Taken Unknown] ntilmfxpssjce-DL-xzkwspzlwyy 2.5 mg-5 mg-50 mg/5 mL oral liquid (Robitussin Cough and Cold CF) 15 ml PO Q4H PRN cold symptoms #118 mL 10/05/22 [Rx Last Taken Unknown] ondansetron 8 mg disintegrating tablet 8 mg PO Q8H PRN nausea and vomiting #30 tabs 11/13/22 [Rx Last Taken Unknown] gabapentin 300 mg capsule 300 mg feeding tube BID #60 caps 11/30/22 [Rx Last Taken Unknown] lidocaine-prilocaine 2.5 %-2.5 % topical cream 50 g topical ONCE #30 grams 11/30/22 [Rx Last Taken Unknown] prednisolone sodium phosphate 15 mg/5 mL (5 mL) oral solution 15 mg (5 mL) PO DAILY #250 mL 12/03/22 [Rx Last Taken Unknown] apixaban 5 mg tablet (Eliquis) 2.5 mg (1/2 x 5 mg) PO BID 30 days #30 tabs 12/18/22 [Rx Last Taken Unknown] carvedilol 3.125 mg tablet 3.125 mg PO BID 30 days #60 tabs 12/18/22 [Rx Last Taken Unknown] furosemide 40 mg tablet (Lasix) 40 mg PO DAILY #30 tabs 12/18/22 [Rx Last Taken Unknown] Allergy/AdvReac Type Severity Reaction Status Date / Time venom-wasp Allergy Anaphylaxis Verified 01/13/23 17:29 pseudoephedrine HCl AdvReac Severe Unknown Verified 01/13/23 17:29 [From Sudafed] Antihistamines - Alkylamine AdvReac Mild Other Verified 01/13/23 17:29 Family History Father Colon cancer Hypertension Mother Hypertension Surgical History History of surgery Hx of tonsillectomy S/P percutaneous endoscopic gastrostomy (PEG) tube placement S/P TURP Social History household members: spouse Smoking Status: Former smoker quit date: 04/08/17 pack-years: 55 alcohol intake: never substance use type: does not use ROS ROS ED ROS Narrative Patient is nonverbal, he nods yes or no I can get a reasonable yes or no review of systems, most of it has been HPI, he is denying any chest pain, no current dyspnea. He is saying no to any kind of pain. EXAM Physical Exam Narrative Exam Narrative: Physical exam General: Patient is quite cachectic and chronically appearing. Does not appear acutely ill or in any distress currently Head: Normocephalic, Atraumatic Eyes: Conjunctiva not pale ENT: Dry mucous membranes Neck: Trach is intact Cardiovascular: Regular. I do not appreciate any murmurs Respiratory: Bilateral breath sounds. No wheezing. Abdomen: Soft, Nontender, Nondistended PEG is intact Back: Nontender, Normal Inspection. Negative for: CVA tenderness Extremities: Nontender, No edema Skin: Normal color, No rash Neurological: No Focal deficit Const Vital Signs: 01/13/23 17:19 01/13/23 17:35 01/13/23 17:59 Temperature 99.1 F Temperature Source Oral Pulse Rate 108 H 85 Respiratory Rate 18 20 H Respiratory Effort Short of Breath Respiratory Pattern Normal Blood Pressure 117/76 Blood Pressure Mean 89 Pulse Ox 95 Oxygen Delivery Method Trach Collar Trach Collar Oxygen Flow Rate (L/min) 4 4 01/13/23 17:42 01/13/23 18:58 Temperature Temperature Source Pulse Rate 105 H Respiratory Rate 19 H Respiratory Effort Respiratory Pattern Blood Pressure 109/51 L Blood Pressure Mean 70 Pulse Ox 97 Oxygen Delivery Method Trach Collar Trach Collar Oxygen Flow Rate (L/min) 4 4 MDM MDM MDM Narrative Medical decision making narrative: Patient did vomit today and then he had episode of hypoxia, he could have aspirated he could have had a mucous plug. He has improved now and is on his baseline trach mask. He has a normal white count and there is no evidence of sepsis, he is dehydrated, he is uremic compared to baseline as well as his creatinine is somewhat worse. IV fluids were given. He has episodes of tachycardia, into the 150s I cannot catch it on EKG but on the monitor appears to be atrial flutter, the thought last time is that he may have paroxysmal A-fib he is anticoagulated on Eliquis. However these paroxysms are brief and then his heart rate improves. Therefore I do not treat in the ED. Because of the possibility of aspiration, atrial fibrillation, fever few days ago, and his chronic health I believe hospitalization is needed. I will talk to the hospitalist for admission. Lab Data Labs: Laboratory Results - last 24 hr 01/13/23 18:30 WBC 6.7 RBC 3.34 L Hgb 10.4 L Hct 33.9 L MCV 101.5 H MCH 31.1 MCHC 30.7 L RDW Std Deviation 60.5 H RDW Coeff of Oz 16.4 H Plt Count 230 MPV 11.4 Immature Gran % (Auto) 0.700 Neut % (Auto) 79.2 H Lymph % (Auto) 15.1 L [place] % (Auto) 4.3 Eos % (Auto) 0.0 Baso % (Auto) 0.7 Absolute Neuts (auto) 5.3 Absolute Lymphs (auto) 1.02 Nucleated RBC % 0.4 Differential Comment SCANNED PT 17.7 H INR 1.4 APTT 51.3 H Sodium 140 Potassium 4.3 Chloride 101 Carbon Dioxide 34.0 H Anion Gap 5 BUN 61 H Creatinine 1.74 H Estim Creat Clear Calc 31.91 Est GFR (MDRD) Af Amer 49 L Est GFR (MDRD) Non-Af 41 L BUN/Creatinine Ratio 35.1 H Glucose 120 H Lactic Acid 0.8 Calcium 9.0 Total Bilirubin 0.50 AST 22 ALT 30 Alkaline Phosphatase 64 Total Protein 6.4 Albumin 2.0 L Globulin 4.4 H Albumin/Globulin Ratio 0.5 L Urine Color Yellow Urine Clarity Clear Urine pH 6.0 Ur Specific [place] 1.010 Urine Protein 30 H Urine Glucose (UA) Normal Urine Ketones Negative Urine Occult Blood Negative Urine Nitrite Negative Urine Bilirubin Negative Urine Urobilinogen Normal Ur Leukocyte Esterase Negative Urine RBC 0 SEEN Urine WBC 0 SEEN Ur Squamous Epith Cells 0 SEEN Urine Bacteria 0 SEEN Urine Mucus 0 SEEN Radiography Diagnostic Testing: Clinical Impression(s) from Imaging Studies Chest X-Ray 01/13/23 18:12 IMPRESSION: No change from 12/12/2022. Electronically Signed: Desean Duffy MD at 18:53 EDT , Rhythm Strip Rhythm Strip: Sinus Rhythm Rate: 106 Ectopy: PVC(s) EKG Initial EKG: Comments: Sinus rhythm with a rate of 106. Normal CO interval. Normal QTc interval. PVCs are seen. No acute ischemic changes. Interpreted by emergency doctor Discharge Plan Triage Chief Complaint: Shortness of Breath ED Provider: Jeffery Cast Dx/Rx/DC Orders Clinical Impression: Acute dehydration, Laryngeal cancer, Dysphagia, Acute and chronic respiratory failure with hypoxia, Elevated serum creatinine, Acute uremia Prescriptions: No Action guaifenesin 200 mg/5 mL liquid 400 mg PO Q6H PRN (Reason: cough) Qty: 473 6RF omeprazole 20 mg capsule,delayed release(DR/EC) 20 mg PO DAILY prednisolone sodium phosphate 15 mg/5 mL (5 mL) solution 15 mg PO DAILY Qty: 250 4RF Avastin 25 mg/mL Solution 25 mg intravitreal QMONTH lactose-reduced food with fibr 237 ML liquid 237 ml GT Q4H midodrine 5 mg Tablet 5 mg feeding tube TID Rx Instructions: do not give last dose of day after 6PM or within 4 hrs of bedtime Eliquis 5 mg Tablet 2.5 mg PO BID 30 Days Qty: 30 0RF carvedilol 3.125 mg Tablet 3.125 mg PO BID 30 Days Qty: 60 0RF furosemide [Lasix] 40 mg tablet 40 mg PO DAILY Qty: 30 0RF levothyroxine 50 mcg tablet See Rx Instructions .ROUTE .COMPLEX Qty: 90 5RF Dose Instruction: TAKE 1 TABLET BY MOUTH EVERY DAY Rx Instructions: TAKE 1 TABLET BY MOUTH EVERY DAY budesonide 0.5 mg/2 mL suspension for nebulization 0.5 mg inhalation BID Qty: 120 6RF ipratropium-albuterol 0.5 mg-3 mg(2.5 mg base)/3 mL solution for nebulization 3 ml inhalation Q4H PRN (Reason: shortness of breath or wheezing) Qty: 180 6RF Robitussin Cough and Cold CF 2.5-5-50 mg/5 mL liquid 15 ml PO Q4H PRN (Reason: cold symptoms) Qty: 118 1RF ondansetron 8 mg tablet,disintegrating 8 mg PO Q8H PRN (Reason: nausea and vomiting) Qty: 30 0RF gabapentin 300 mg capsule 300 mg feeding tube BID Qty: 60 11RF Rx Instructions: Via G-tube. lidocaine-prilocaine 2.5-2.5 % cream 50 g topical ONCE Qty: 30 3RF Primary Care Provider: Alejandro Liu Referrals: Alejandro Liu PA [Primary Care Provider] - Disposition Disposition: Acute Care Hospital [facility]
[2023-01-13] MEDS: Ipratropium/Albuterol Sulfate 3 ML AMPUL.NEB INHALATION (17:59)
--- NOTE | 2023-01-13 18:12 | RAD_ITS ---
STUDY: X-RAY CHEST REASON FOR EXAM: Male, 77 years old. sob TECHNIQUE: Single AP portable view of the chest. COMPARISON: 12/12/2022 FINDINGS: Tracheostomy tube which is unchanged. Left subclavian chest port which is unchanged. No change in the alveolar opacities in both lung bases consistent with bibasilar atelectasis or pneumonia. There is no demonstrated pleural abnormality. There is moderate cardiac enlargement. Normal mediastinum and anival. Normal visualized pulmonary arteries. Normal visualized aortic arch and descending thoracic aorta. Normal visualized thoracic spine. Normal visualized ribs, clavicles, and shoulders. There is no demonstrated abnormality of the visualized soft tissue structures of the upper abdomen. RAD/Chest 1 View (Portable) IMPRESSION: No change from 12/12/2022. Electronically Signed: Desean Duffy MD at 18:53 EDT ,
[2023-01-13 18:49] LABS: Absolute Lymphocyte Count 1.02 X10^3/uL (0.83-4.51); Absolute Neutrophil Count 5.3 X10^3/uL (2.0-7.7); Basophil# 0.05 X10^3/uL; Basophil% 0.7 % (0-1); Hematocrit 33.9 % (40-54); Hemoglobin 10.4 g/dL (13.0-16.5); Lymphocyte # 1.02 X10^3/ul (0.83-4.51); Lymphocyte % 15.1 % (19-41); Mean Corp Hgb Conc 30.7 g/dL (32-36); Mean Corpuscular Hgb 31.1 pg (27.0-32.0); Mean Corpuscular Volume 101.5 fL (80-94); Mean Platelet Vol. 11.4 fl (6.2-12.0); Monocyte# 0.29 X10^3/uL; Monocyte% 4.3 % (0-10); NRBC Flagged by Analyzer 0.4 % (0-5); Neutrophil # 5.33 X10^3/uL (2.7-7.7); Neutrophil % 79.2 % (47-70); POSITIVE MORPHOLOGY YES; Platelet Count 230 K/mm3 (150-450); RBC Distribution Width CV 16.4 % (11.6-14.6); RBC Distribution Width SD 60.5 fl (35.1-43.9); Red Blood Count 3.34 M/mm3 (4.6-6.2); White Blood Count 6.7 K/mm3 (4.4-11.0)
[2023-01-13 18:57] LABS: Bacteria 0 SEEN /hpf (None Seen); Mucous, Urine 0 SEEN /hpf (<or=2+); Red Blood Cells-Urine 0 SEEN /hpf (0-5); Squamous Epithelial Cells - UA 0 SEEN /hpf (0-5); White Blood Cells 0 SEEN /hpf (0-5)
[2023-01-13 19:05] LABS: Color, Urine Yellow (Yellow); Glucose, Dipstick Normal (Normal); Ketone-Dipstick Negative (Negative); Leukocyte Esterase-Dipstick Negative /ul (Negative); Nitrite-Dipstick Negative (Negative); Occult Blood-Urine Negative /ul (Negative); Protein-Dipstick 30 mg/dl (Negative); Urine Bilirubin Dipstick Negative (Negative); Urine Clarity Clear (Clear); Urine Urobilinogen Normal (Normal)
[2023-01-13 19:07] LABS: Differential Indicated SCAN CRITERIA MET
[2023-01-13 19:09] LABS: International Normalized Ratio 1.4; Prothrombin Time (Protime)PT. 17.7 SECONDS (11.7-14.9)
[2023-01-13 19:10] LABS: Partial Thromboplast Time 51.3 Seconds (24.1-36.2)
[2023-01-13 19:21] LABS: Differential Comment SCANNED
[2023-01-13 19:22] LABS: ALB/GLOB Ratio 0.5 RATIO (0.9-2.4); AST(SGOT) 22 U/L (15-37); Alanine Aminotransfer ALT/SGPT 30 U/L (16-61); Alkaline Phosphatase 64 U/L (45-117); Anion Gap 5 (5-15); BUN 61 mg/dL (7-18); BUN/Creat Ratio 35.1 RATIO (10-20); Chloride 101 mmol/L (98-107); Creatinine, Serum 1.74 mg/dL (0.70-1.30); EST Glomerular Filtration Rate 41 mL/min (>60); Est Glom Filt Rate - Afr Amer 49 mL/min (>60); Estimated Creatinine Clearance 31.91 ml/min; Globulin 4.4 g/dL (2.2-4.2); Glucose 120 mg/dL (74-106); Lactic Acid 0.8 mmol/L (0.4-1.9); Potassium 4.3 mmol/L (3.5-5.1); Protein, Total 6.4 g/dL (6.4-8.2); Sodium Level 140 mmol/L (136-145)
[2023-01-13] MEDS: 0.9% Normal Saline (1000mL) 1,000 ML 999 ML IV (19:35)
--- NOTE | 2023-01-13 19:49 | HP.PCM.HOS_ITS ---
HPI - General General Date of Admission: 01/13/23 Date of Service: 01/13/23 Chief Complaint: Adult failure to thrive HPI Narrative SERENITY ESTRADA, is a 77 M with history of laryngeal cancer s/p trach and PEG in 2015, failure to thrive, severe protein calorie malnutrition, chronic hypoxic respiratory failure on 4 L at home, HFrEF, A-fib with RVR versus intermittent SVT, chronic pain, hypothyroidism and GERD who presented to [facility] ED on 01/13/2023 after an episode of severe oxygen desaturation at home as well as worsening functional status. Patient seen at bedside in the ED, present. Patient is nonverbal at baseline because of his tracheostomy. However he was sitting comfortably in bed, alert, in no acute distress. Had trach mask on providing supplemental oxygen, no increased work of breathing was noted. No rhonchorous breath sounds noted. Most of history was obtained from , but patient did occasionally write things on a piece of paper for me. Patient had episode at home earlier today where his oxygen saturations dropped into the mid 50s. He then had a significant bout of coughing trying to get the likely mucous plug up was unsuccessful. However, he did have vomiting in the process. He is unaware as to whether or not he aspirated on the vomitus. then tried to suction him through the tracheostomy tube but this was unsuccessful in relieving patient shortness of breath and hypoxia, so they called EMS. Patient states that the ride with EMS over to the ED was bumpy, and he felt significant relief of shortness of breath at 1 point during the ride and his oxygen saturations w ere noted to be improved. Since arrival to the ED, patient denies any shortness of breath. Denies any cough, chest pain, abdominal pain, lightheadedness or dizziness. Denies any fevers or chills. does state that patient has been noticeably weaker since his previous admission about 1 month ago. He used to use a walker to ambulate around the home, but he has now been needing a wheelchair full-time to get around. She states that she previously was able to care for all his needs at home, but she is concerned about her ability to continue to provide solo care for him and will need help at home for him going forward. Vitals in ED notable for sinus tachycardia to 100s, mild hypotension, satting well on 4 L through trach mask. Labs notable for WBC count of 6, hemoglobin 10.4, platelets 230, sodium 140, potassium 4.3, chloride 101, bicarb 34, BUN 61, creatinine 1.74, LFTs normal, albumin 2.0. UA unremarkable. Chest x-ray unremarkable. EKG showed sinus tachycardia to 106 with frequent PVCs, no ST changes. 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) use of systemic steroids Long-term use of high-risk medication Neuropathy On home oxygen therapy Pneumonia Pneumonitis 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 Shortness of breath on exertion Thrush, oral Tracheostomy in place tracheotomy and laryngeal biopsy Wears glasses Home Medications lactose-reduced food with fiber 0.06 gram-1.5 kcal/mL oral liquid 237 ml G-tube Q4H nutrition 09/09/18 [History Last Taken 04/19/22] midodrine 5 mg tablet 5 mg feeding tube TID 04/17/22 [History Last Taken 04/20/22 06:00] guaifenesin 200 mg/5 mL oral liquid 400 mg (10 mL) PO Q6H PRN cough #473 mL 06/05/22 [Rx Last Taken Unknown] levothyroxine 50 mcg tablet See Rx Instructions .Route .COMPLEX #90 TABLETS 06/22/22 [Rx Last Taken Unknown] omeprazole 20 mg capsule,delayed release 20 mg PO DAILY 06/25/22 [History Last Taken Unknown] bevacizumab 25 mg/mL intravenous solution (Avastin) 25 mg intravitreal QMONTH 08/10/22 [History Last Taken Unknown] budesonide 0.5 mg/2 mL suspension for nebulization 0.5 mg (2 mL) inhalation BID #120 mL 08/13/22 [Rx Last Taken Unknown] ipratropium 0.5 mg-albuterol 3 mg (2.5 mg base)/3 mL nebulization soln 3 ml inhalation Q4H PRN shortness of breath or wheezing #180 mL 08/14/22 [Rx Last Taken Unknown] rxvqbkxugoilp-RN-xqoxmgnemzh 2.5 mg-5 mg-50 mg/5 mL oral liquid (Robitussin Cough and Cold CF) 15 ml PO Q4H PRN cold symptoms #118 mL 10/05/22 [Rx Last Taken Unknown] ondansetron 8 mg disintegrating tablet 8 mg PO Q8H PRN nausea and vomiting #30 tabs 11/13/22 [Rx Last Taken Unknown] gabapentin 300 mg capsule 300 mg feeding tube BID #60 caps 11/30/22 [Rx Last Taken Unknown] lidocaine-prilocaine 2.5 %-2.5 % topical cream 50 g topical ONCE #30 grams 11/30/22 [Rx Last Taken Unknown] prednisolone sodium phosphate 15 mg/5 mL (5 mL) oral solution 15 mg (5 mL) PO DAILY #250 mL 12/03/22 [Rx Last Taken Unknown] apixaban 5 mg tablet (Eliquis) 2.5 mg (1/2 x 5 mg) PO BID 30 days #30 tabs 12/18/22 [Rx Last Taken Unknown] carvedilol 3.125 mg tablet 3.125 mg PO BID 30 days #60 tabs 12/18/22 [Rx Last Taken Unknown] furosemide 40 mg tablet (Lasix) 40 mg PO DAILY #30 tabs 12/18/22 [Rx Last Taken Unknown] Allergy/AdvReac Type Severity Reaction Status Date / Time venom-wasp Allergy Anaphylaxis Verified 01/13/23 17:29 pseudoephedrine HCl AdvReac Severe Unknown Verified 01/13/23 17:29 [From [facility]] Antihistamines - Alkylamine AdvReac Mild Other Verified 01/13/23 17:29 Family History Father Colon cancer Hypertension Mother Hypertension Surgical History History of surgery Hx of tonsillectomy S/P percutaneous endoscopic gastrostomy (PEG) tube placement S/P TURP Social History household members: spouse Smoking Status: Former smoker quit date: 04/08/17 pack-years: 55 alcohol intake: never substance use type: does not use ROS Review of Systems ROS Unobtainable: other Details: Nonverbal with tracheostomy Vital Signs Vital Signs Vital Signs: 01/13/23 17:19 01/13/23 17:35 01/13/23 17:59 Temperature 99.1 F Temperature Source Oral Pulse Rate 108 H 85 Respiratory Rate 18 20 H Respiratory Effort Short of Breath Respiratory Pattern Normal Blood Pressure 117/76 Blood Pressure Mean 89 Pulse Ox 95 Oxygen Delivery Method Trach Collar Trach Collar Oxygen Flow Rate (L/min) 4 4 01/13/23 17:42 01/13/23 18:58 Temperature Temperature Source Pulse Rate 105 H Respiratory Rate 19 H Respiratory Effort Respiratory Pattern Blood Pressure 109/51 L Blood Pressure Mean 70 Pulse Ox 97 Oxygen Delivery Method Trach Collar Trach Collar Oxygen Flow Rate (L/min) 4 4 Weight Weight: 61.5 kg Body Mass Index (BMI) 19.4 Physical Exam Const alert Constitutional Narrative: Elderly male, cachectic appearing, alert, sitting comfortably in bed, no acute distress. General Appearance: cooperative and comfortable HEENT normocephalic, head/scalp atraumatic, hearing grossly normal bilaterally, nasal mucous membranes and turbinates normal and moist oral mucous membranes Eyes PERRL, EOMs intact bilaterally and conjunctivae normal Neck full ROM, no lymphadenopathy and supple Lymph Lymphatic: no lymphadenopathy noted Chest inspection of chest normal Resp normal respiratory effort Resp Narrative: On 4 L through trach mask, O2 saturations in high 90s, no increased work of breathing noted. Mildly decreased breath sounds bilaterally, no wheezes rales or rhonchi noted. Cardio no murmurs and peripheral pulses 2+ throughout Cardio Narrative: Sinus tachycardia. GI normal to inspection, nondistended, normoactive bowel sounds, soft to palpation, non-tender and non-distended Back/Spine normal ROM Extremity normal to inspection, full ROM and no pedal edema Skin no rashes or lesions noted Results Lab / Micro Data 01/13/23 18:30 01/13/23 18:30 Labs: Laboratory Results - last 24 hr 01/13/23 18:30: WBC 6.7, RBC 3.34 L, Hgb 10.4 L, Hct 33.9 L, MCV 101.5 H, MCH 31.1, MCHC 30.7 L, RDW Std Deviation 60.5 H, RDW Coeff of Oz 16.4 H, Plt Count 230, MPV 11.4, Immature Gran % (Auto) 0.700, Neut % (Auto) 79.2 H, Lymph % (Auto) 15.1 L, [place] % (Auto) 4.3, Eos % (Auto) 0.0, Baso % (Auto) 0.7, Absolute Neuts (auto) 5.3, Absolute Lymphs (auto) 1.02, Nucleated RBC % 0.4, Differential Comment SCANNED, PT 17.7 H, INR 1.4, APTT 51.3 H, Sodium 140, Potassium 4.3, Chloride 101, Carbon Dioxide 34.0 H, Anion Gap 5, BUN 61 H, Creatinine 1.74 H, Estim Creat Clear Calc 31.91, Est GFR (MDRD) Af Amer 49 L, Est GFR (MDRD) Non-Af 41 L, BUN/Creatinine Ratio 35.1 H, Glucose 120 H, Lactic Acid 0.8, Calcium 9.0, Total Bilirubin 0.50, AST 22, ALT 30, Alkaline Phosphatase 64, Total Protein 6.4, Albumin 2.0 L, Globulin 4.4 H, Albumin/Globulin Ratio 0.5 L, Urine Color Yellow, Urine Clarity Clear, Urine pH 6.0, Ur Specific [place] 1.010, Urine P rotein 30 H, Urine Glucose (UA) Normal, Urine Ketones Negative, Urine Occult Blood Negative, Urine Nitrite Negative, Urine Bilirubin Negative, Urine Urobilinogen Normal, Ur Leukocyte Esterase Negative, Urine RBC 0 SEEN, Urine WBC 0 SEEN, Ur Squamous Epith Cells 0 SEEN, Urine Bacteria 0 SEEN, Urine Mucus 0 SEEN Rhythm Strip Rhythm Strip: Sinus Rhythm Rate: 106 Ectopy: PVC(s) Radiology Impression Chest X-Ray 01/13/23 18:12 IMPRESSION: No change from 12/12/2022. Electronically Signed: Desean Duffy MD at 18:53 EDT , Assessment & Plan Assessment/Plan (1) Failure to thrive: PLAN: Plan Patient is a 77-year-old male with history of laryngeal cancer s/p trach and PEG in 2014, failure to thrive, severe protein calorie malnutrition, chronic hypoxic respiratory failure on 4 L at home, HFrEF, A-fib with RVR versus intermittent SVT, chronic pain, hypothyroidism and GERD who presented to [facility] ED on 01/13/2023 after an episode of severe oxygen desaturation at home as well as worsening functional status. 1. Adult failure to thrive, severe protein calorie malnutrition Recently hospitalized from 12/13 to 12/18/22 for acute on chronic hypoxic respiratory failure secondary to aspiration pneumonia. Cultures grew Klebsiella, Pseudomonas and MRSA. Completed course of antibiotics with improvement. Unfortunately suspected to be high risk for recurrent aspiration ammonia versus mucous plugging given tracheostomy status and worsening functional status. Very likely had episode of mucous plugging at home this afternoon, causing his oxygen saturation to drop to the mid 50s for several minutes. Had episode of vomiting that was caused by severe coughing and attempt to remove the mucous plug. Patient's also tried suctioning through the tracheostomy tube to clear secretions and mucous plug but was unsuccessful. Patient had significant improvement of oxygen saturations noted on the way to the ED, subjectively felt improved. Work-up in the ED was largely unremarkable, chest x-ray with no concern for aspiration ammonia, WBC count normal, afebrile. Giving IV fluids for mild LEV with dehydration as noted below. states that patient has been getting weaker at home, is essentially needing a wheelchair to get around now. She is primary caregiver and states that she would like additional services at home at this point. ? Admit under observation status to PCU. PT/OT/case management consulted. Patient and notably do not want SNF placement, are hoping to qualify for home health care services. Fall precautions in place. 2. Dehydration, mild creatinine elevation, LEV ruled out Patient's labs appeared hemoconcentrated in ED, suspected secondary to recent episodes of vomiting as well as possible overdiuresis while on Lasix. BUN 61, creatinine 1.74 on admit, baseline creatinine around 1.4-1.6. Patient appears dry on exam. Mildly hypotensive and tachycardic in ED, both somewhat improved after administration of IV fluids. ? Continue maintenance IV fluids overnight. Hold home dose of Lasix tomorrow. Monitor BMP daily. 3. A-fib with RVR versus intermittent SVT, mild hypotension New onset noted on previous admission from 12/13 to 12/18. Was started on Coreg 3.125 twice daily at that time with improvement. Telemetry in ED shows primarily sinus tachycardia with rate in 90s to 100s with frequent PVCs. EKG showed sinus tachycardia with rate 106 with frequent PVCs. During my interview with patient, noted that he had several episodes of heart rate intermittently jumping to 140s to 150s, appeared to be either A-fib with RVR versus SVT, with then resolve on its own after about 5 seconds. Patient asymptomatic during that time. Blood pressure remained stable on multiple checks during my interview. ? Monitor telemetry. Continue home Coreg 3.125 twice daily. Continue home midodrine 5 mg 3 times daily. IV Lopressor 5 mg every 6 hours as needed ordered for heart rate greater than 140 sustained. 4. Chronic hypoxic respiratory failure, recent hospitalization for aspiration pneumonia Very low concern for recurrent aspiration pneumonia at this time. Work-up in the ED was largely unremarkable, chest x-ray with no concern for aspiration ammonia, WBC count normal, afebrile. Giving IV fluids for mild LEV with dehydration as noted below. Of note, was recently hospitalized from 12/13 to 12/18/22 for acute on chronic hypoxic respiratory failure secondary to aspiration pneumonia. Cultures grew Klebsiella, Pseudomonas and MRSA. Completed course of antibiotics with improvement. Unfortunately suspected to be high risk for recurrent aspiration ammonia versus mucous plugging given tracheostomy status and worsening functional status. Very likely had episode of mucous plugging at home this afternoon, causing his oxygen saturation to drop to the mid 50s for several minutes. Had episode of vomiting that was caused by severe coughing and attempt to remove the mucous plug. Patient's also tried suctioning through the tracheostomy tube to clear secretions and mucous plug but was unsuccessful. ? Continue supplemental oxygen through tracheostomy mask. Blood cultures and sputum culture ordered. Continue home DuoNebs every 4 hours as needed, Mucinex every 6 hours as needed through PEG tube, budesonide inhaler twice daily. Discussed with patient and , does not appear to have any other home medications or devices for assisting with mucus clearance, can consider discussing with respiratory therapy on possible additional interventions for patient. 5. History of laryngeal cancer with mets to the lungs s/p trach and PEG Follows with oncology outpatient, last office visit was 11/12/2022. 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 Had trach and PEG placed at that time, then was treated with chemotherapy and radiation. Also follows with pulmonology outpatient. Had CT chest with contrast in 05/2022 that showed bronchiectasis with mucous plugging, otherwise stable with regard to mal ignant lesions. Has now had multiple episodes of aspiration pneumonia since then, with most recent hospitalization less than 1 month ago as noted above. Currently being treated with prednisolone 10 mg daily as well as a PPI and Bactrim. Is also getting IV hydration on Mondays and Fridays. ? As noted by oncology in last note, patient continues to be high risk for mucous plugging and recurrent aspiration pneumonia. Recommend continued outpatient follow-up with oncology and pulmonology. Chronic medical conditions: ? Hypothyroidism: Continue home Synthroid. ? GERD: Continue home PPI. ? Chronic pain: Continue home gabapentin. DVT prophylaxis: Eliquis CODE STATUS: Full code, verified Expected disposition: Home with home health care, 1 to 2 days Total clinical time spent by myself addressing the patient's medical issues, reviewing all the data, and collaborating with patient's care team: 55 minutes. Charges/Coding Visit Charges Inpatient E&M: 59733 Init Hosp L2
[2023-01-13] MEDS: Ampicillin/Sulbactam 3 GM in 0.9% Normal Saline (100mL MB+) 100 ML IV (19:54)
[2023-01-13] MEDS: Metoprolol Tartrate 5 MG/5 ML Vial IV (21:26)
[2023-01-13] MEDS: Lactated Ringers 1,000 ML 125 ML IV (21:36)
[2023-01-13] MEDS: Midodrine HCl 5 MG Tablet GT (22:26)
[2023-01-13 22:30] LABS: Magnesium 2.7 mg/dL (1.6-2.6)
[2023-01-13] MEDS: 0.9% Normal Saline (500mL Bag) 500 ML 999 ML IV (22:37)
[2023-01-13] MEDS: Carvedilol 3.125 MG TABLET GT (23:33)
[2023-01-13] MEDS: Gabapentin 300 MG Capsule GT (23:33)
[2023-01-13] MEDS: APIXABAN 2.5 MG TABLET (WCH) GT (23:33)
[2023-01-14] VITALS (24 sets, daily range): BP systolic 62–113; BP diastolic 44–98; PULSE 67–162; RESP 17–26; TEMP 2.7–37; O2SAT 67–100
--- NOTE | 2023-01-14 03:07 | EKG12_ITS ---
Test Reason : SVT Blood Pressure : / mmHG Vent. Rate : 160 BPM Atrial Rate : 000 BPM P-R Int : 000 ms QRS Dur : 078 ms QT Int : 302 ms P-R-T Axes : 000 -10 004 degrees QTc Int : 492 ms Critical Test Result: High HR Supraventricular tachycardia ST & T wave abnormality, consider inferior ischemia Abnormal ECG When compared with ECG of 13-JAN-2023 18:03, MANUAL COMPARISON REQUIRED, DATA IS UNCONFIRMED Confirmed by VALENCIA PALOMO, AKIL ([id number]), editor at large JOSÉ ARROYO ([id number]) on 01/31/2023 11:31:23 AM Referred By: MARTIN Confirmed By:AKIL BIRMINGHAM MD
[2023-01-14] MEDS: Lactated Ringers 1,000 ML 125 ML IV (05:20)
[2023-01-14] MEDS: Levothyroxine 50 MCG Tablet GT (05:22)
[2023-01-14] MEDS: Midodrine HCl 5 MG Tablet GT ×2 (05:23→12:12)
[2023-01-14 06:21] LABS: Hemoglobin 8.9 g/dL (13.0-16.5); Mean Corp Hgb Conc 30.7 g/dL (32-36); Mean Corpuscular Hgb 31.7 pg (27.0-32.0); Mean Corpuscular Volume 103.2 fL (80-94); Mean Platelet Vol. 11.5 fl (6.2-12.0); Platelet Count 197 K/mm3 (150-450); RBC Distribution Width CV 16.2 % (11.6-14.6); RBC Distribution Width SD 61.6 fl (35.1-43.9); Red Blood Count 2.81 M/mm3 (4.6-6.2); White Blood Count 5.5 K/mm3 (4.4-11.0)
[2023-01-14 06:48] LABS: Anion Gap 6 (5-15); BUN 53 mg/dL (7-18); BUN/Creat Ratio 33.8 RATIO (10-20); Calcium,Total 8.9 mg/dL (8.5-10.1); Chloride 104 mmol/L (98-107); Creatinine, Serum 1.57 mg/dL (0.70-1.30); EST Glomerular Filtration Rate 46 mL/min (>60); Est Glom Filt Rate - Afr Amer 56 mL/min (>60); Estimated Creatinine Clearance 33.05 ml/min; Glucose 79 mg/dL (74-106); Potassium 3.9 mmol/L (3.5-5.1); Sodium Level 140 mmol/L (136-145)
[2023-01-14] MEDS: Budesonide Respules 0.5 MG/2 ML AMPUL.NEB. INHALATION ×2 (06:48→19:45)
[2023-01-14] MEDS: APIXABAN 2.5 MG TABLET (WCH) GT ×2 (08:31→21:54)
[2023-01-14] MEDS: Lansoprazole 15 MG Capsule.DR GT (08:34)
[2023-01-14] MEDS: Gabapentin 300 MG Capsule GT ×2 (08:42→21:59)
--- NOTE | 2023-01-14 09:11 | CASEMGMT ---
Discharge Planning A list of HH?providers including quality and resource use data and consistent with the patient's preferred geographic region, medical needs, and insurance network was created in [employer] Guide.? This list was provided to the RN EVELYN. Jenifer No, Discharge Planning Asst.
--- NOTE | 2023-01-14 10:05 | CASEMGMT ---
Addendum entered by Ally Stevens 01/14/23 12:59: LORRIE RIVAS received call from [facility] and they are able to accept the patient with planned start of care for Tuesday 01/16. LORRIE RIVAS updated patient and . Patient and had no further questions or concerns at this time. Addendum entered by Ally Stevens 01/14/23 12:00: LORRIE RIVAS in to discuss preferences for HHC. Per patient and , prefer [facility]. LORRIE RIVAS sent referral to [facility], awaiting acceptance. CM will continue to follow this patient and plan for safe discharge. Original Note: LORRIE RIVAS in to discuss discharge planning with patient. RN CM discuss HHC at discharge, patient agreeable. A list of C providers including quality and resource use data and consistent with the patient?s preferred geographical region, medical needs, and insurance network were provided from the [employer] Guide. Patient to review list with and provide preferences. CM will continue to follow this patient and plan for a safe discharge.
--- NOTE | 2023-01-14 11:45 | DCINST_ITS ---
Discharge Instructions Diet Discharge Diet: - (Nothing oral, tube feeds as before) Activity Discharge Activity: Return to Normal Activity Weight Bearing Status: Full weight bearing Follow Up Care Test Results: Test results from this visit will be discussed in further detail at your follow- up appointment, if applicable. Discharge Plan Admission Admit Date/Time: 01/13/23 19:51 Primary Reason for Your Visit: General debility, dehydration Attending Provider: Gordy Hamilton Primary Care Provider: Alejandro Liu Consulting Providers: Jorge Jasso Discharge Orders/Prescriptions Prescriptions: Continued guaifenesin 200 mg/5 mL liquid 400 mg PO Q6H PRN (Reason: cough) Qty: 473 6RF omeprazole 20 mg capsule,delayed release(DR/EC) 20 mg PO DAILY prednisolone sodium phosphate 15 mg/5 mL (5 mL) solution 15 mg PO DAILY Qty: 250 4RF Avastin 25 mg/mL Solution 25 mg intravitreal QMONTH lactose-reduced food with fibr 237 ML liquid 237 ml GT Q4H midodrine 5 mg Tablet 5 mg feeding tube TID Rx Instructions: do not give last dose of day after 6PM or within 4 hrs of bedtime Eliquis 5 mg Tablet 2.5 mg PO BID 30 Days Qty: 30 0RF carvedilol 3.125 mg Tablet 3.125 mg PO BID 30 Days Qty: 60 0RF furosemide [Lasix] 40 mg tablet 40 mg PO DAILY Qty: 30 0RF levothyroxine 50 mcg tablet See Rx Instructions .ROUTE .COMPLEX Qty: 90 5RF Dose Instruction: TAKE 1 TABLET BY MOUTH EVERY DAY Rx Instructions: TAKE 1 TABLET BY MOUTH EVERY DAY budesonide 0.5 mg/2 mL suspension for nebulization 0.5 mg inhalation BID Qty: 120 6RF ipratropium-albuterol 0.5 mg-3 mg(2.5 mg base)/3 mL solution for nebulization 3 ml inhalation Q4H PRN (Reason: shortness of breath or wheezing) Qty: 180 6RF Robitussin Cough and Cold CF 2.5-5-50 mg/5 mL liquid 15 ml PO Q4H PRN (Reason: cold symptoms) Qty: 118 1RF ondansetron 8 mg tablet,disintegrating 8 mg PO Q8H PRN (Reason: nausea and vomiting) Qty: 30 0RF gabapentin 300 mg capsule 300 mg feeding tube BID Qty: 60 11RF Rx Instructions: Via G-tube. lidocaine-prilocaine 2.5-2.5 % cream 50 g topical ONCE Qty: 30 3RF Referrals / Follow Up: Alejandro Liu PA [Primary Care Provider] - Disposition Disposition (needs filled in before D/C Order can be placed): Home Health Service
--- NOTE | 2023-01-14 11:58 | PCM.DC.SUM ---
Providers Date of Admission: 01/13/23 Date of Discharge: 01/14/23 Primary Care Physician: LEÓN Fung Reason For Visit: A-FIB WITH RVR, DEHYDRATION Diagnosis Discharge Diagnosis (1) Failure to thrive: Status: Acute Medications at Discharge Home Medications lactose-reduced food with fiber 0.06 gram-1.5 kcal/mL oral liquid 237 ml G-tube Q4H nutrition 09/09/18 midodrine 5 mg tablet 5 mg feeding tube TID 04/17/22 guaifenesin 200 mg/5 mL oral liquid 400 mg (10 mL) PO Q6H PRN cough #473 mL 06/05/22 levothyroxine 50 mcg tablet See Rx Instructions .Route .COMPLEX #90 TABLETS 06/22/22 omeprazole 20 mg capsule,delayed release 20 mg PO DAILY 06/25/22 bevacizumab 25 mg/mL intravenous solution (Avastin) 25 mg intravitreal QMONTH 08/10/22 budesonide 0.5 mg/2 mL suspension for nebulization 0.5 mg (2 mL) inhalation BID #120 mL 08/13/22 ipratropium 0.5 mg-albuterol 3 mg (2.5 mg base)/3 mL nebulization soln 3 ml inhalation Q4H PRN shortness of breath or wheezing #180 mL 08/14/22 lqdkdxlxrbcoh-JQ-cqdohnxmlsl 2.5 mg-5 mg-50 mg/5 mL oral liquid (Robitussin Cough and Cold CF) 15 ml PO Q4H PRN cold symptoms #118 mL 10/05/22 ondansetron 8 mg disintegrating tablet 8 mg PO Q8H PRN nausea and vomiting #30 tabs 11/13/22 gabapentin 300 mg capsule 300 mg feeding tube BID #60 caps 11/30/22 lidocaine-prilocaine 2.5 %-2.5 % topical cream 50 g topical ONCE #30 grams 11/30/22 prednisolone sodium phosphate 15 mg/5 mL (5 mL) oral solution 15 mg (5 mL) PO DAILY #250 mL 12/03/22 apixaban 5 mg tablet (Eliquis) 2.5 mg (1/2 x 5 mg) PO BID 30 days #30 tabs 12/18/22 carvedilol 3.125 mg tablet 3.125 mg PO BID 30 days #60 tabs 12/18/22 furosemide 40 mg tablet (Lasix) 40 mg PO DAILY #30 tabs 12/18/22 Weight / BMI Weight Weight: 57.47 kg Body Mass Index (BMI) 18.1 ABG / Lab / Microbiology Data 01/14/23 06:06 01/14/23 06:06 Laboratory: Laboratory Results - last 24 hr 01/13/23 18:30: WBC 6.7, RBC 3.34 L, Hgb 10.4 L, Hct 33.9 L, MCV 101.5 H, MCH 31.1, MCHC 30.7 L, RDW Std Deviation 60.5 H, RDW Coeff of Oz 16.4 H, Plt Count 230, MPV 11.4, Immature Gran % (Auto) 0.700, Neut % (Auto) 79.2 H, Lymph % (Auto) 15.1 L, [place] % (Auto) 4.3, Eos % (Auto) 0.0, Baso % (Auto) 0.7, Absolute Neuts (auto) 5.3, Absolute Lymphs (auto) 1.02, Nucleated RBC % 0.4, Differential Comment SCANNED, PT 17.7 H, INR 1.4, APTT 51.3 H, Sodium 140, Potassium 4.3, Chloride 101, Carbon Dioxide 34.0 H, Anion Gap 5, BUN 61 H, Creatinine 1.74 H, Estim Creat Clear Calc 31.91, Est GFR (MDRD) Af Amer 49 L, Est GFR (MDRD) Non-Af 41 L, BUN/Creatinine Ratio 35.1 H, Glucose 120 H, Lactic Acid 0.8, Calcium 9.0, Magnesium 2.7 H, Total Bilirubin 0.50, AST 22, ALT 30, Alkaline Phosphatase 64, Total Protein 6.4, Albumin 2.0 L, Globulin 4.4 H, Albumin/Globulin Ratio 0.5 L, Urine Color Yellow, Urine Clarity Clear, Urine pH 6.0, Ur Specific [place] 1.010, Urine Protein 30 H, Urine Glucose (UA) Normal, Urine Ketones Negative, Urine Occult Blood Negative, Urine Nitrite Negative, Urine Bilirubin Negative, Urine Urobilinogen Normal, Ur Leukocyte Esterase Negative, Urine RBC 0 SEEN, Urine WBC 0 SEEN, Ur Squamous Epith Cells 0 SEEN, Urine Bacteria 0 SEEN, Urine Mucus 0 SEEN 01/14/23 06:06: WBC 5.5, RBC 2.81 L, Hgb 8.9 L, Hct 29.0 L, MCV 103.2 H, MCH 31.7, MCHC 30.7 L, RDW Std Deviation 61.6 H, RDW Coeff of Oz 16.2 H, Plt Count 197, MPV 11.5, Sodium 140, Potassium 3.9, Chloride 104, Carbon Dioxide 30.0, Anion Gap 6, BUN 53 H, Creatinine 1.57 H, Estim Creat Clear Calc 33.05, Est GFR (MDRD) Af Amer 56 L, Est GFR (MDRD) Non-Af 46 L, BUN/Creatinine Ratio 33.8 H, Glucose 79, Calcium 8.9 Microbiology: Microbiology 01/13/23 22:29 Mucosa - Nose Respiratory Panel (PCR) - Final Radiography Diagnostic Testing: Radiology Impression Chest X-Ray 01/13/23 18:12 IMPRESSION: No change from 12/12/2022. Electronically Signed: Desean Duffy MD at 18:53 EDT , D/C Instructions Discharge Diet: - (Nothing oral, tube feeds as before) Weight Bearing Status: Full weight bearing Discharge Plan Admission Admit Date/Time: 01/13/23 19:51 Primary Reason for Your Visit: General debility, dehydration Attending Provider: Gordy Hamilton Primary Care Provider: Alejandro Liu Consulting Providers: Jorge Jasso Discharge Orders/Prescriptions Prescriptions: Continued guaifenesin 200 mg/5 mL liquid 400 mg PO Q6H PRN (Reason: cough) Qty: 473 6RF omeprazole 20 mg capsule,delayed release(DR/EC) 20 mg PO DAILY prednisolone sodium phosphate 15 mg/5 mL (5 mL) solution 15 mg PO DAILY Qty: 250 4RF Avastin 25 mg/mL Solution 25 mg intravitreal QMONTH lactose-reduced food with fibr 237 ML liquid 237 ml GT Q4H midodrine 5 mg Tablet 5 mg feeding tube TID Rx Instructions: do not give last dose of day after 6PM or within 4 hrs of bedtime Eliquis 5 mg Tablet 2.5 mg PO BID 30 Days Qty: 30 0RF carvedilol 3.125 mg Tablet 3.125 mg PO BID 30 Days Qty: 60 0RF furosemide [Lasix] 40 mg tablet 40 mg PO DAILY Qty: 30 0RF levothyroxine 50 mcg tablet See Rx Instructions .ROUTE .COMPLEX Qty: 90 5RF Dose Instruction: TAKE 1 TABLET BY MOUTH EVERY DAY Rx Instructions: TAKE 1 TABLET BY MOUTH EVERY DAY budesonide 0.5 mg/2 mL suspension for nebulization 0.5 mg inhalation BID Qty: 120 6RF ipratropium-albuterol 0.5 mg-3 mg(2.5 mg base)/3 mL solution for nebulization 3 ml inhalation Q4H PRN (Reason: shortness of breath or wheezing) Qty: 180 6RF Robitussin Cough and Cold CF 2.5-5-50 mg/5 mL liquid 15 ml PO Q4H PRN (Reason: cold symptoms) Qty: 118 1RF ondansetron 8 mg tablet,disintegrating 8 mg PO Q8H PRN (Reason: nausea and vomiting) Qty: 30 0RF gabapentin 300 mg capsule 300 mg feeding tube BID Qty: 60 11RF Rx Instructions: Via G-tube. lidocaine-prilocaine 2.5-2.5 % cream 50 g topical ONCE Qty: 30 3RF Referrals / Follow Up: Alejandro Liu PA [Primary Care Provider] - Disposition Disposition (needs filled in before D/C Order can be placed): Home Health Service
--- NOTE | 2023-01-14 12:18 | PHA.DC.MR.R ---
Pharmacy [place] Med Reconciliation Pharmacy Service has performed discharge medication reconciliation for this patient. The patient's discharge medication list was reviewed for discrepancies and discrepancies were resolved. Medications at Discharge Home Medications lactose-reduced food with fiber 0.06 gram-1.5 kcal/mL oral liquid 237 ml G-tube Q4H nutrition 09/09/18 midodrine 5 mg tablet 5 mg feeding tube TID 04/17/22 guaifenesin 200 mg/5 mL oral liquid 400 mg (10 mL) PO Q6H PRN cough #473 mL 06/05/22 levothyroxine 50 mcg tablet See Rx Instructions .Route .COMPLEX #90 TABLETS 06/22/22 omeprazole 20 mg capsule,delayed release 20 mg PO DAILY 06/25/22 bevacizumab 25 mg/mL intravenous solution (Avastin) 25 mg intravitreal QMONTH 08/10/22 budesonide 0.5 mg/2 mL suspension for nebulization 0.5 mg (2 mL) inhalation BID #120 mL 08/13/22 ipratropium 0.5 mg-albuterol 3 mg (2.5 mg base)/3 mL nebulization soln 3 ml inhalation Q4H PRN shortness of breath or wheezing #180 mL 08/14/22 prwjphfooslpc-ZP-anfmiauaeso 2.5 mg-5 mg-50 mg/5 mL oral liquid (Robitussin Cough and Cold CF) 15 ml PO Q4H PRN cold symptoms #118 mL 10/05/22 ondansetron 8 mg disintegrating tablet 8 mg PO Q8H PRN nausea and vomiting #30 tabs 11/13/22 gabapentin 300 mg capsule 300 mg feeding tube BID #60 caps 11/30/22 lidocaine-prilocaine 2.5 %-2.5 % topical cream 50 g topical ONCE #30 grams 11/30/22 prednisolone sodium phosphate 15 mg/5 mL (5 mL) oral solution 15 mg (5 mL) PO DAILY #250 mL 12/03/22 apixaban 5 mg tablet (Eliquis) 2.5 mg (1/2 x 5 mg) PO BID 30 days #30 tabs 12/18/22 carvedilol 3.125 mg tablet 3.125 mg PO BID 30 days #60 tabs 12/18/22 furosemide 40 mg tablet (Lasix) 40 mg PO DAILY #30 tabs 12/18/22
--- NOTE | 2023-01-14 12:26 | PCM.DC.SUM ---
Providers Date of Admission: 01/13/23 Primary Care Physician: LEÓN Fung Reason For Visit: A-FIB WITH RVR, DEHYDRATION Diagnosis Discharge Diagnosis (1) Failure to thrive: Status: Acute Plan 1. Dehydration #2 hypoxia secondary to mucous plugging #3 cardiac tbdhyfgijxf-Y-fhl/SVT #4 chronic hypoxic respiratory failure #5 iron deficiency anemia Medications at Discharge Home Medications lactose-reduced food with fiber 0.06 gram-1.5 kcal/mL oral liquid 237 ml G-tube Q4H nutrition 09/09/18 midodrine 5 mg tablet 5 mg feeding tube TID blood pressure 04/17/22 guaifenesin 200 mg/5 mL oral liquid 400 mg (10 mL) PO Q6H PRN cough #473 mL 06/05/22 levothyroxine 50 mcg tablet See Rx Instructions .Route .COMPLEX thyroid #90 TABLETS 06/22/22 omeprazole 20 mg capsule,delayed release 20 mg PO DAILY reflux 06/25/22 bevacizumab 25 mg/mL intravenous solution (Avastin) 25 mg intravitreal QMONTH 08/10/22 budesonide 0.5 mg/2 mL suspension for nebulization 0.5 mg (2 mL) inhalation BID breathing #120 mL 08/13/22 ipratropium 0.5 mg-albuterol 3 mg (2.5 mg base)/3 mL nebulization soln 3 ml inhalation Q4H PRN shortness of breath or wheezing #180 mL 08/14/22 cejezfssgoerm-QD-ydoehhknkkz 2.5 mg-5 mg-50 mg/5 mL oral liquid (Robitussin Cough and Cold CF) 15 ml PO Q4H PRN cold symptoms #118 mL 10/05/22 ondansetron 8 mg disintegrating tablet 8 mg PO Q8H PRN nausea and vomiting #30 tabs 11/13/22 gabapentin 300 mg capsule 300 mg feeding tube BID nerve pain #60 caps 11/30/22 lidocaine-prilocaine 2.5 %-2.5 % topical cream 50 g topical ONCE pain #30 grams 11/30/22 prednisolone sodium phosphate 15 mg/5 mL (5 mL) oral solution 15 mg (5 mL) PO DAILY inflammation #250 mL 12/03/22 apixaban 5 mg tablet (Eliquis) 2.5 mg (1/2 x 5 mg) PO BID blood thinner 30 days #30 tabs 12/18/22 carvedilol 3.125 mg tablet 3.125 mg PO BID blood pressure 30 days #60 tabs 12/18/22 furosemide 40 mg tablet (Lasix) 40 mg PO DAILY diuretic #30 tabs 12/18/22 Hospital Course Operations None Procedures None Summary of Care Provided Minutes Spent on Discharge: 30 Hospital Course: This 77-year-old white male was brought to the emergency room at [facility] at the direction of his due to low pulse ox at home, paramedics were called to bring the patient in but by the time the patient arrived at the emergency room his oxygenation had improved. Examination in the emergency room revealed the patient's pulse ox to be 95% on 4 L via trach collar, patient's temperature was 99.1, lab was obtained which showed a normal white blood cell count, hemoglobin was 10.4, creatinine was elevated at 1.74 and BUN was elevated at 61. Urinalysis was unremarkable. Chest x-ray showed no changes from the last chest x-ray performed on 12/12/2022. The emergency room physician felt the patient needed to be admitted for close observation, he was placed into observation status on PCU, arrangements were made for the patient to have home health care. On 01/14/2023, patient was seen and examined: On examination he appeared frail and much older than his stated age. Vital signs as documented. Skin warm and dry and without overt rashes. Neck without JVD, neck was supple, patient has a trach in place, thyroid was normal. Lungs clear bilaterally, normal air movement was noted. Heart exam notable for regular rhythm, normal sounds and absence of murmurs, rubs or gallops. Abdomen unremarkable and without evidence of organomegaly, masses, or abdominal aortic enlargement. Bowel sounds are present, abdomen is not distended. Extremities nonedematous, no cyanosis was noted, no clubbing was noted. Neuro: Cranial nerves II through XII are grossly intact, no focal motor deficits were noted, sensation to light touch and pinprick intact, motor exam 5/5 throughout. Psych: Patient is alert and oriented x3, he does not appear anxious or depressed, he does not appear agitated. On 01/14/2023, patient was discharged home in stable condition Weight / BMI Weight Weight: 57.47 kg Body Mass Index (BMI) 18.1 ABG / Lab / Microbiology Data 01/14/23 06:06 01/14/23 06:06 Laboratory: Laboratory Results - last 24 hr 01/13/23 18:30: WBC 6.7, RBC 3.34 L, Hgb 10.4 L, Hct 33.9 L, MCV 101.5 H, MCH 31.1, MCHC 30.7 L, RDW Std Deviation 60.5 H, RDW Coeff of Oz 16.4 H, Plt Count 230, MPV 11.4, Immature Gran % (Auto) 0.700, Neut % (Auto) 79.2 H, Lymph % (Auto) 15.1 L, [place] % (Auto) 4.3, Eos % (Auto) 0.0, Baso % (Auto) 0.7, Absolute Neuts (auto) 5.3, Absolute Lymphs (auto) 1.02, Nucleated RBC % 0.4, Differential Comment SCANNED, PT 17.7 H, INR 1.4, APTT 51.3 H, Sodium 140, Potassium 4.3, Chloride 101, Carbon Dioxide 34.0 H, Anion Gap 5, BUN 61 H, Creatinine 1.74 H, Estim Creat Clear Calc 31.91, Est GFR (MDRD) Af Amer 49 L, Est GFR (MDRD) Non-Af 41 L, BUN/Creatinine Ratio 35.1 H, Glucose 120 H, Lactic Acid 0.8, Calcium 9.0, Magnesium 2.7 H, Total Bilirubin 0.50, AST 22, ALT 30, Alkaline Phosphatase 64, Total Protein 6.4, Albumin 2.0 L, Globulin 4.4 H, Albumin/Globulin Ratio 0.5 L, Urine Color Yellow, Urine Clarity Clear, Urine pH 6.0, Ur Specific [place] 1.010, Urine Protein 30 H, Urine Glucose (UA) Normal, Urine Ketones Negative, Urine Occult Blood Negative, Urine Nitrite Negative, Urine Bilirubin Negative, Urine Urobilinogen Normal, Ur Leukocyte Esterase Negative, Urine RBC 0 SEEN, Urine WBC 0 SEEN, Ur Squamous Epith Cells 0 SEEN, Urine Bacteria 0 SEEN, Urine Mucus 0 SEEN 01/14/23 06:06: WBC 5.5, RBC 2.81 L, Hgb 8.9 L, Hct 29.0 L, MCV 103.2 H, MCH 31.7, MCHC 30.7 L, RDW Std Deviation 61.6 H, RDW Coeff of Oz 16.2 H, Plt Count 197, MPV 11.5, Sodium 140, Potassium 3.9, Chloride 104, Carbon Dioxide 30.0, Anion Gap 6, BUN 53 H, Creatinine 1.57 H, Estim Creat Clear Calc 33.05, Est GFR (MDRD) Af Amer 56 L, Est GFR (MDRD) Non-Af 46 L, BUN/Creatinine Ratio 33.8 H, Glucose 79, Calcium 8.9 Microbiology: Microbiology 01/13/23 22:29 Mucosa - Nose Respiratory Panel (PCR) - Final Radiography Diagnostic Testing: Radiology Impression Chest X-Ray 01/13/23 18:12 IMPRESSION: No change from 12/12/2022. Electronically Signed: Desean Duffy MD at 18:53 EDT , D/C Instructions Discharge Diet: - (Nothing oral, tube feeds as before) Weight Bearing Status: Full weight bearing Meaningful Use Info Meaningful Use Diagnoses (Choose all that apply): None applicable Discharge Plan Admission Admit Date/Time: 01/13/23 19:51 Primary Reason for Your Visit: General debility, dehydration Attending Provider: Gordy Hamilton Primary Care Provider: Alejandro Liu Consulting Providers: Jorge Jasso Discharge Orders/Prescriptions Prescriptions: Continued guaifenesin 200 mg/5 mL liquid 400 mg PO Q6H PRN (Reason: cough) Qty: 473 6RF omeprazole 20 mg capsule,delayed release(DR/EC) 20 mg PO DAILY prednisolone sodium phosphate 15 mg/5 mL (5 mL) solution 15 mg PO DAILY Qty: 250 4RF Avastin 25 mg/mL Solution 25 mg intravitreal QMONTH lactose-reduced food with fibr 237 ML liquid 237 ml GT Q4H midodrine 5 mg Tablet 5 mg feeding tube TID Rx Instructions: do not give last dose of day after 6PM or within 4 hrs of bedtime Eliquis 5 mg Tablet 2.5 mg PO BID 30 Days Qty: 30 0RF carvedilol 3.125 mg Tablet 3.125 mg PO BID 30 Days Qty: 60 0RF furosemide [Lasix] 40 mg tablet 40 mg PO DAILY Qty: 30 0RF levothyroxine 50 mcg tablet See Rx Instructions .ROUTE .COMPLEX Qty: 90 5RF Dose Instruction: TAKE 1 TABLET BY MOUTH EVERY DAY Rx Instructions: TAKE 1 TABLET BY MOUTH EVERY DAY budesonide 0.5 mg/2 mL suspension for nebulization 0.5 mg inhalation BID Qty: 120 6RF ipratropium-albuterol 0.5 mg-3 mg(2.5 mg base)/3 mL solution for nebulization 3 ml inhalation Q4H PRN (Reason: shortness of breath or wheezing) Qty: 180 6RF Robitussin Cough and Cold CF 2.5-5-50 mg/5 mL liquid 15 ml PO Q4H PRN (Reason: cold symptoms) Qty: 118 1RF ondansetron 8 mg tablet,disintegrating 8 mg PO Q8H PRN (Reason: nausea and vomiting) Qty: 30 0RF gabapentin 300 mg capsule 300 mg feeding tube BID Qty: 60 11RF Rx Instructions: Via G-tube. lidocaine-prilocaine 2.5-2.5 % cream 50 g topical ONCE Qty: 30 3RF Referrals / Follow Up: Alejandro Liu PA [Primary Care Provider] - Disposition Disposition (needs filled in before D/C Order can be placed): Home Health Service Charges/Coding Visit Charges Inpatient E&M: 72353 Disch Hosp
[2023-01-14] MEDS: 0.9% Normal Saline (250mL Bag) 250 ML 999 ML IV (14:39)
[2023-01-14] MEDS: 0.9% Normal Saline (1000mL) 1,000 ML 100 ML IV (14:39)
[2023-01-14 16:56] LABS: Absolute Lymphocyte Count 1.05 X10^3/uL (0.83-4.51); Basophil# 0.03 X10^3/uL; Basophil% 0.6 % (0-1); Eosinophil# 0.02 X10^3/uL; Eosinophils% 0.4 % (0-5); Hemoglobin 9.2 g/dL (13.0-16.5); Lymphocyte # 1.05 X10^3/ul (0.83-4.51); Lymphocyte % 19.6 % (19-41); Mean Corp Hgb Conc 29.7 g/dL (32-36); Mean Corpuscular Hgb 30.8 pg (27.0-32.0); Mean Corpuscular Volume 103.7 fL (80-94); Mean Platelet Vol. 11.1 fl (6.2-12.0); Monocyte# 0.26 X10^3/uL; Monocyte% 4.9 % (0-10); NRBC Flagged by Analyzer 0.4 % (0-5); Neutrophil # 3.96 X10^3/uL (2.7-7.7); Neutrophil % 73.8 % (47-70); POSITIVE MORPHOLOGY YES; Platelet Count 203 K/mm3 (150-450); RBC Distribution Width CV 16.1 % (11.6-14.6); Red Blood Count 2.99 M/mm3 (4.6-6.2); White Blood Count 5.4 K/mm3 (4.4-11.0)
[2023-01-14 16:57] LABS: Differential Indicated SCAN CRITERIA MET
--- NOTE | 2023-01-14 16:59 | PN.HOSP_ITS ---
Subjective Subjective Patient was seen and examined today, his creatinine and BUN have improved since yesterday, unfortunately he is hypotensive, patient is being given fluids in an attempt to raise his blood pressure. Patient's 2 blood cultures grew out gram- positive rods, I talked briefly with ID by phone, they recommended that the p atient be placed on vancomycin since both of his blood cultures were positive. I have also elected to increase the patient's midodrine and placed the patient on fluids and attempt to raise his blood pressure. Objective Data Objective Data Vital Signs: Vital Signs Temp Pulse Resp BP Pulse Ox O2 Del Method O2 Flow Rate 97.9 F 100 13 141/80 H 98 Room Air 2 01/14/23 12:24 01/14/23 12:24 01/14/23 12:24 01/14/23 12:24 01/14/23 12:24 01/14/23 12:24 01/14/23 12:00 FiO2 28 01/14/23 06:53 Oxygen Flow Rate (L/min) [ 4 AMBULATING with Oxygen #1] Oxygen Flow Rate (L/min) [At 2 REST with Oxygen] Oxygen Flow Rate (L/min) 6 Oxygen Delivery Method Room Air Weight: 57.47 kg Body Mass Index (BMI) 18.1 Intake & Output: Intake and Output for Last 24 Hours 01/12/23 01/13/23 01/14/23 23:59 23:59 23:59 Intake Total 1575.75 / 1575.75 756.25 / 756.25 Output Total 600 / 600 Balance 1575.75 / 1575.75 156.25 / 156.25 Medical Nutrition Assessment Dietitian: Malnutrition Criteria Met Start: 01/14/23 15:35 Freq: Status: Active Protocol: Document 01/14/23 15:36 RMA (Rec: 01/14/23 15:36 RMA [id number]) Nutrition Malnutrition Evidence of Malnutrition Exists Yes Malnutrition (severe): Chronic Evidenced By Suboptimal Energy Intake ( Moderate),Weight Loss ( Moderate),Physical Changes ( Severe) Intake Problem Inadequate Oral Intake Etiology related to difficulty swallowing Signs/Symptoms as evidenced by NPO and need for PEG tube feeding support Status Active Problem Clinical Problem Chronic Disease or Condition Related Malnutrition Etiology Severe protein-calorie malnutrition in the context of acute on chronic disease related to inadequate oral intake and difficulty swallowing Signs/Symptoms as evidenced by BMI 18.2, severe muscle/fat wasting in the clavicle, orbital and temporal regions, unintentional weight loss~3% x less than 1 month, NPO and need for PEG tube/nutrition support Status Active Problem Recommendation Dietitian Recommendations/Changes Pt is to remain NPO with nutrition via PEG only. Will order: Jevity 1.5 Dipesh via PEG tube bolus 240mL 5 times per day provides 1800 kcal, 76 .6 gm protein and 912 mL free water; blends TF with banana and whey protein. Recommend 100 mL water flush before and after each bolus for additional 1000mL water per day. Lab / Micro Data 01/14/23 16:48 01/14/23 06:06 Labs: Laboratory Results - last 24 hr 01/13/23 18:30: WBC 6.7, RBC 3.34 L, Hgb 10.4 L, Hct 33.9 L, MCV 101.5 H, MCH 31.1, MCHC 30.7 L, RDW Std Deviation 60.5 H, RDW Coeff of Oz 16.4 H, Plt Count 230, MPV 11.4, Immature Gran % (Auto) 0.700, Neut % (Auto) 79.2 H, Lymph % (Auto) 15.1 L, [place] % (Auto) 4.3, Eos % (Auto) 0.0, Baso % (Auto) 0.7, Absolute Neuts (auto) 5.3, Absolute Lymphs (auto) 1.02, Nucleated RBC % 0.4, Differential Comment SCANNED, PT 17.7 H, INR 1.4, APTT 51.3 H, Sodium 140, Potassium 4.3, Chloride 101, Carbon Dioxide 34.0 H, Anion Gap 5, BUN 61 H, Creatinine 1.74 H, Estim Creat Clear Calc 31.91, Est GFR (MDRD) Af Amer 49 L, Est GFR (MDRD) Non-Af 41 L, BUN/Creatinine Ratio 35.1 H, Glucose 120 H, Lactic Acid 0.8, Calcium 9.0, Magnesium 2.7 H, Total Bilirubin 0.50, AST 22, ALT 30, Alkaline Phosphatase 64, Total Protein 6.4, Albumin 2.0 L, Globulin 4.4 H, Albumin/Globulin Ratio 0.5 L, Urine Color Yellow, Urine Clarity Clear, Urine pH 6.0, Ur Specific [place] 1.010, Urine Protein 30 H, Urine Glucose (UA) Normal, Urine Ketones Negative, Urine Occult Blood Negative, Urine Nitrite Negative, Urine Bilirubin Negative, Urine Urobilinogen Normal, Ur Leukocyte Esterase Negative, Urine RBC 0 SEEN, Urine WBC 0 SEEN, Ur Squamous Epith Cells 0 SEEN, Urine Bacteria 0 SEEN, Urine Mucus 0 SEEN 01/14/23 06:06: WBC 5.5, RBC 2.81 L, Hgb 8.9 L, Hct 29.0 L, MCV 103.2 H, MCH 31.7, MCHC 30.7 L, RDW Std Deviation 61.6 H, RDW Coeff of Oz 16.2 H, Plt Count 197, MPV 11.5, Sodium 140, Potassium 3.9, Chloride 104, Carbon Dioxide 30.0, Anion Gap 6, BUN 53 H, Creatinine 1.57 H, Estim Creat Clear Calc 33.05, Est GFR (MDRD) Af Amer 56 L, Est GFR (MDRD) Non-Af 46 L, BUN/Creatinine Ratio 33.8 H, Glucose 79, Calcium 8.9 01/14/23 16:48: WBC 5.4, RBC 2.99 L, Hgb 9.2 L, Hct 31.0 L, MCV 103.7 H, MCH 30.8, MCHC 29.7 L, RDW Std Deviation 61.0 H, RDW Coeff of Oz 16.1 H, Plt Count 203, MPV 11.1, Immature Gran % (Auto) 0.700, Neut % (Auto) 73.8 H, Lymph % (Auto) 19.6, [place] % (Auto) 4.9, Eos % (Auto) 0.4, Baso % (Auto) 0.6, Absolute Neuts (auto) 4.0, Absolute Lymphs (auto) 1.05, Nucleated RBC % 0.4 Micro: Microbiology 01/13/23 19:25 Blood Culture (Wb) - Chest Blood Culture - Preliminary 01/14/23 02:45 Sputum, Expectorated/Coughed Gram Stain - Final 01/13/23 18:30 Blood Culture (Wb) - Port Blood Culture - Preliminary 01/13/23 22:29 Mucosa - Nose Respiratory Panel (PCR) - Final Radiography Diagnostic Testing: Radiology Impression Chest X-Ray 01/13/23 18:12 IMPRESSION: No change from 12/12/2022. Electronically Signed: Desean Duffy MD at 18:53 EDT , Rhythm Strip Rhythm Strip: Sinus Rhythm Rate: 106 Ectopy: PVC(s) Physical Exam Const alert, oriented x3 and no apparent distress Constitutional Narrative: Patient appears to be frail and older than his stated age General Appearance: cooperative, well kempt and well developed Orientation / Consciousness: awake, oriented to person and oriented to place HEENT normocephalic, head/scalp atraumatic and moist oral mucous membranes HEENT Narrative: Trach is in place Eyes PERRL, EOMs intact bilaterally and conjunctivae normal Neck supple, no JVD, thyroid normal and no carotid bruits General: trachea midline Resp normal respiratory effort, no retractions, no use of accessory muscles and clear to auscultation bilaterally Auscultation: Negative for rales, rhonchi or wheezes Cardio regular rate, regular rhythm, S1 normal heart sound, S2 normal heart sound, no murmurs, no rub and no gallops GI normal to inspection, nondistended, normoactive bowel sounds, soft to palpation, non-tender and non-distended Extremity no clubbing, cyanosis or edema Skin no rashes or lesions noted General Skin Exam: no breakdown Neuro CN's II-XII intact bilaterally, moves all extremities, no focal motor deficits and no sensory deficits noted Sensorium / Orientation: awake, alert, oriented to person and oriented to place Speech: speech normal Psych affect normal Assessment & Plan Assessment/Plan (1) Acute dehydration: PLAN: Plan 1. Bacteremia-etiology unclear at this point, patient will be placed on vancomycin, he will be seen by infectious diseases tomorrow #2 hypotension-probably secondary to dehydration, patient will be given extra fluid and blood pressure will be monitored, patient's midodrine will be increased #3 cardiac arrhythmias-patient has episodic SVT, during my exam the patient was in sinus rhythm with PACs. #4 acute dehydration-again patient will be given IV fluids, labs will be followed #5 chronic hypoxic respiratory failure-patient is on a trach mask, pulse ox will be monitored #6 chronic obstructive pulmonary disease-patient is on aerosol treatments, complicates care, medical course, recovery, and prognosis #7 hypothyroidism-patient is on Synthroid through his G-tube #8 chronic protein and caloric malnutrition-patient will be seen by nutritional services, complicates care, medical course, recovery, and prognosis Total clinical time spent by myself addressing the patient's medical issues, reviewing all of his data, and collaborating with patient's care team: 35 minutes Charges/Coding Visit Charges Inpatient E&M: 51233 Subs Hosp L2
[2023-01-14 17:37] LABS: Differential Comment SCANNED
[2023-01-14] MEDS: Midodrine HCl 5 MG Tablet 10 MG GT (18:13)
--- NOTE | 2023-01-14 19:41 | PCM.RX.CS ---
Consult Antibiotic Management Pharmacy has been consulted to manage selected antiobiotic: Vancomycin Type of Intervention Type of Consult: New start Suspected Infection Suspected Infection: Bacteremia Prior Doses of Antibiotics Prior Doses of Antibiotics Received/Current Regimen: Loading dose of 1500mg iv x 1. Labs Labs: Sodium 140 mmol/L (136-145) 01/14/23 06:06 Potassium 3.9 mmol/L (3.5-5.1) 01/14/23 06:06 Chloride 104 mmol/L (98-107) 01/14/23 06:06 Carbon Dioxide 30.0 mmol/L (21.0-32.0) 01/14/23 06:06 Anion Gap 6 (5-15) 01/14/23 06:06 BUN 53 mg/dL (7-18) H 01/14/23 06:06 Creatinine 1.57 mg/dL (0.70-1.30) H 01/14/23 06:06 Est GFR (MDRD) Af Amer 56 mL/min (>60) L 01/14/23 06:06 Est GFR (MDRD) Non-Af 46 mL/min (>60) L 01/14/23 06:06 BUN/Creatinine Ratio 33.8 RATIO (10-20) H 01/14/23 06:06 Glucose 79 mg/dL (74-106) 01/14/23 06:06 Microbiology Microbiology: Microbiology 01/13/23 19:25 Blood Culture (Wb) - Chest Blood Culture - Preliminary 01/14/23 02:45 Sputum, Expectorated/Coughed Gram Stain - Final 01/13/23 18:30 Blood Culture (Wb) - Port Blood Culture - Preliminary 01/13/23 22:29 Mucosa - Nose Respiratory Panel (PCR) - Final Dosing Weight Weight used for dosin.5 kg Estimated Creatinine Clearance Estimated Creatinine Clearance: 33ml/min Pharmacy Plan for Drug Dosing Pharmacy Plan for Drug Dosing: Recommend starting dose of 750mg iv q24h beginning 24hrs after loading dose of 1500mg. Trough level ordered for before 3rd total dose on 01.16.23. Pharmacy Service will continue to monitor and adjust dosing as required. Follow-Up Labs Follow-Up Labs: Trough: Vancomycin (01.16.23 @1930 before 2000 dose)
[2023-01-14] MEDS: Metoprolol Tartrate 5 MG/5 ML Vial IV (20:07)
[2023-01-14] MEDS: Vancomycin HCl 1,500 MG in 0.9% Normal Saline (500mL Bag) 500 ML 250 MG IV (20:58)
[2023-01-14] MEDS: Amiodarone 150 MG in Dextrose 5%-Water (100mL Bag) 100 ML 600 MG IV BOLUS (21:21)
[2023-01-14] MEDS: Amiodarone 360 MG in Dextrose 5% Viaflo Bag 192.8 ML 33.3 MG CONT INF (21:32)
[2023-01-14] MEDS: Jevity 1.5. 1,000 ML Bottle 240 ML GT (21:53)
[2023-01-14] MEDS: Carvedilol 3.125 MG TABLET GT (22:37)
[2023-01-15] VITALS (26 sets, daily range): BP systolic 71–140; BP diastolic 52–91; PULSE 67–139; RESP 15–30; TEMP 36.6–37.2; O2SAT 85–98
[2023-01-15] MEDS: Ipratropium/Albuterol Sulfate 3 ML AMPUL.NEB INHALATION ×2 (02:36→20:00)
[2023-01-15] MEDS: Amiodarone 360 MG in Dextrose 5% Viaflo Bag 192.8 ML 16.7 MG CONT INF ×2 (04:00→16:57)
[2023-01-15] MEDS: Levothyroxine 50 MCG Tablet GT (05:18)
[2023-01-15] MEDS: Midodrine HCl 5 MG Tablet 10 MG GT ×3 (06:25→16:50)
[2023-01-15] MEDS: 0.9% Normal Saline (1000mL) 1,000 ML 100 ML IV ×2 (06:30→09:32)
[2023-01-15] MEDS: Jevity 1.5. 1,000 ML Bottle 240 ML GT ×5 (06:30→21:12)
[2023-01-15 06:41] LABS: Absolute Lymphocyte Count 1.03 X10^3/uL (0.83-4.51); Absolute Neutrophil Count 4.6 X10^3/uL (2.0-7.7); Basophil# 0.02 X10^3/uL; Basophil% 0.3 % (0-1); Eosinophil# 0.03 X10^3/uL; Eosinophils% 0.5 % (0-5); Hematocrit 30.3 % (40-54); Hemoglobin 9.1 g/dL (13.0-16.5); Lymphocyte # 1.03 X10^3/ul (0.83-4.51); Lymphocyte % 17.2 % (19-41); Mean Corpuscular Hgb 30.6 pg (27.0-32.0); Mean Platelet Vol. 11.1 fl (6.2-12.0); Monocyte# 0.25 X10^3/uL; Monocyte% 4.2 % (0-10); NRBC Flagged by Analyzer 0.5 % (0-5); Neutrophil % 76.8 % (47-70); Platelet Count 213 K/mm3 (150-450); RBC Distribution Width CV 16.2 % (11.6-14.6); RBC Distribution Width SD 60.4 fl (35.1-43.9); Red Blood Count 2.97 M/mm3 (4.6-6.2)
[2023-01-15] MEDS: Budesonide Respules 0.5 MG/2 ML AMPUL.NEB. INHALATION ×2 (07:13→20:00)
[2023-01-15 07:14] LABS: ALB/GLOB Ratio 0.4 RATIO (0.9-2.4); AST(SGOT) 21 U/L (15-37); Alanine Aminotransfer ALT/SGPT 24 U/L (16-61); Albumin, Serum 1.6 g/dL (3.2-5.0); Alkaline Phosphatase 56 U/L (45-117); Anion Gap 3 (5-15); BUN 42 mg/dL (7-18); BUN/Creat Ratio 33.3 RATIO (10-20); Calcium,Total 8.3 mg/dL (8.5-10.1); Chloride 106 mmol/L (98-107); Creatinine, Serum 1.26 mg/dL (0.70-1.30); EST Glomerular Filtration Rate 59 mL/min (>60); Est Glom Filt Rate - Afr Amer 72 mL/min (>60); Estimated Creatinine Clearance 41.18 ml/min; Glucose 74 mg/dL (74-106); Protein, Total 5.6 g/dL (6.4-8.2); Sodium Level 139 mmol/L (136-145)
--- NOTE | 2023-01-15 08:08 | PCM.RX.CS ---
Consult Antibiotic Management Pharmacy has been consulted to manage selected antiobiotic: Vancomycin Type of Intervention Type of Consult: Follow-up Labs Labs: Sodium 139 mmol/L (136-145) 01/15/23 06:23 Potassium 4.0 mmol/L (3.5-5.1) 01/15/23 06:23 Chloride 106 mmol/L (98-107) 01/15/23 06:23 Carbon Dioxide 30.0 mmol/L (21.0-32.0) 01/15/23 06:23 Anion Gap 3 (5-15) L 01/15/23 06:23 BUN 42 mg/dL (7-18) H 01/15/23 06:23 Creatinine 1.26 mg/dL (0.70-1.30) 01/15/23 06:23 Est GFR (MDRD) Af Amer 72 mL/min (>60) 01/15/23 06:23 Est GFR (MDRD) Non-Af 59 mL/min (>60) L 01/15/23 06:23 BUN/Creatinine Ratio 33.3 RATIO (10-20) H 01/15/23 06:23 Glucose 74 mg/dL (74-106) 01/15/23 06:23 Microbiology Microbiology: Microbiology 01/13/23 18:30 Blood Culture (Wb) - Port Blood Culture - Preliminary 01/13/23 19:25 Blood Culture (Wb) - Chest Blood Culture - Preliminary 01/14/23 02:45 Sputum, Expectorated/Coughed Gram Stain - Final 01/13/23 22:29 Mucosa - Nose Respiratory Panel (PCR) - Final Goal Trough Goal Trough: 15-20 mcg/mL Pharmacy Plan for Drug Dosing Pharmacy Plan for Drug Dosing: DAILY ASSESSMENT Current Vancomycin Dose: 750mg IV Q24hr Number of Doses Received: no scheduled doses yet- initial dose only Current Renal Function: 1.26 Renal Function Trend: improvement from yesterday (SCr 1.57) Lab/Micro: pending Any Change in Vanc Plan: Patient with significantly improved renal function from yesterday. Per dosing nomogram, pt qualifies for 500mg IV Q12hr based on renal function. Patient's initial dose was administered 01/14/23 @2057, so will start Vancomycin 500mg IV Q12hr to start this AM (01/15) at 0900. Pending Level: 01/06/23 @0830 Pharmacy Service will continue to monitor and adjust dosing as required.
[2023-01-15] MEDS: APIXABAN 2.5 MG TABLET (WCH) GT ×2 (09:10→21:12)
[2023-01-15] MEDS: Lansoprazole 15 MG Capsule.DR GT (09:11)
[2023-01-15] MEDS: Carvedilol 3.125 MG TABLET GT ×2 (09:11→21:12)
[2023-01-15] MEDS: Vancomycin IV 500 MG/100 ML BAG 100 MG IV ×2 (09:26→22:11)
[2023-01-15] MEDS: Gabapentin 300 MG Capsule GT ×2 (09:33→21:06)
--- NOTE | 2023-01-15 09:49 | PCM.CONS.GEN ---
Assessment & Plan Assessment/Plan (1) Acute and chronic respiratory failure with hypoxia: (2) Pneumonia: QUALIFIERS: Pneumonia type: due to methicillin-resistant Staphylococcus aureus (MRSA) Laterality: bilateral Lung location: lower lobe of lung Qualified Code(s): J15.212 - Pneumonia due to Methicillin resistant Staphylococcus aureus (3) Bacteremia: PLAN: 2 of 2 bcx with GPR. Sputum cx pending. On vanc, will add unasyn. On 10L this AM, would consider pulm consult. Will check covid swab. Will follow, thank you HPI Consult Data Date of Consult: 01/15/23 HPI Narrative Reason for Consultation: bacteremia HPI Narrative: SERENITY ESTRADA, is a 77 M with h/o laryngeal cancer, trach in place, chronic resp failure with 4L home O2, presented 01/13 with several days increased cough, dyspnea, hypoxia. No fever or chills. Some sputum at baseline. No n/v/d. Came to ED, admitted, then bcx x2 (+) for GPR and vanc started. Feeling about the same this AM, on 10L O2. Full ROS performed and neg except as noted above. 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 Shortness of breath on exertion Thrush, oral Tracheostomy in place tracheotomy and laryngeal biopsy Wears glasses Home Medications lactose-reduced food with fiber 0.06 gram-1.5 kcal/mL oral liquid 237 ml G-tube Q4H nutrition 09/09/18 [History Last Taken 04/19/22] midodrine 5 mg tablet 5 mg feeding tube TID blood pressure 04/17/22 [History Last Taken 04/20/22 06:00] guaifenesin 200 mg/5 mL oral liquid 400 mg (10 mL) PO Q6H PRN cough #473 mL 06/05/22 [Rx Last Taken Unknown] levothyroxine 50 mcg tablet See Rx Instructions .Route .COMPLEX thyroid #90 TABLETS 06/22/22 [Rx Last Taken Unknown] omeprazole 20 mg capsule,delayed release 20 mg PO DAILY reflux 06/25/22 [History Last Taken Unknown] bevacizumab 25 mg/mL intravenous solution (Avastin) 25 mg intravitreal QMONTH 08/10/22 [History Last Taken Unknown] budesonide 0.5 mg/2 mL suspension for nebulization 0.5 mg (2 mL) inhalation BID breathing #120 mL 08/13/22 [Rx Last Taken Unknown] ipratropium 0.5 mg-albuterol 3 mg (2.5 mg base)/3 mL nebulization soln 3 ml inhalation Q4H PRN shortness of breath or wheezing #180 mL 08/14/22 [Rx Last Taken Unknown] vtyhtsrwkbcub-GC-cfgrycahihf 2.5 mg-5 mg-50 mg/5 mL oral liquid (Robitussin Cough and Cold CF) 15 ml PO Q4H PRN cold symptoms #118 mL 10/05/22 [Rx Last Taken Unknown] ondansetron 8 mg disintegrating tablet 8 mg PO Q8H PRN nausea and vomiting #30 tabs 11/13/22 [Rx Last Taken Unknown] gabapentin 300 mg capsule 300 mg feeding tube BID nerve pain #60 caps 11/30/22 [Rx Last Taken Unknown] lidocaine-prilocaine 2.5 %-2.5 % topical cream 50 g topical ONCE pain #30 grams 11/30/22 [Rx Last Taken Unknown] prednisolone sodium phosphate 15 mg/5 mL (5 mL) oral solution 15 mg (5 mL) PO DAILY inflammation #250 mL 12/03/22 [Rx Last Taken Unknown] apixaban 5 mg tablet (Eliquis) 2.5 mg (1/2 x 5 mg) PO BID blood thinner 30 days #30 tabs 12/18/22 [Rx Last Taken Unknown] carvedilol 3.125 mg tablet 3.125 mg PO BID blood pressure 30 days #60 tabs 12/18/22 [Rx Last Taken Unknown] furosemide 40 mg tablet (Lasix) 40 mg PO DAILY diuretic #30 tabs 12/18/22 [Rx Last Taken Unknown] Allergy/AdvReac Type Severity Reaction Status Date / Time venom-wasp Allergy Anaphylaxis Verified 01/13/23 17:29 pseudoephedrine HCl AdvReac Severe Unknown Verified 01/13/23 17:29 [From Sudafed] Antihistamines - Alkylamine AdvReac Mild Other Verified 01/13/23 17:29 Family History Father Colon cancer Hypertension Mother Hypertension Surgical History History of surgery Hx of tonsillectomy S/P percutaneous endoscopic gastrostomy (PEG) tube placement S/P TURP Social History household members: spouse Smoking Status: Former smoker quit date: 04/08/17 pack-years: 55 alcohol intake: never substance use type: does not use Physical Exam Const alert and no apparent distress General Appearance: cooperative HEENT normocephalic and head/scalp atraumatic Eyes PERRL and EOMs intact bilaterally Neck supple Neck Narrative: trach in place Resp Resp Narrative: diminished in bilat bases Effort and Inspection: Negative for uses accessory muscles Cardio regular rate and regular rhythm GI soft to palpation, non-tender and non-distended Extremity General Extremity: Negative for edema Skin no rashes or lesions noted Neuro CN's II-XII intact bilaterally Medical Records Data Medical Nutrition Assessment Dietitian: Malnutrition Criteria Met Start: 01/14/23 15:35 Freq: Status: Active Protocol: Document 01/14/23 15:36 RMA (Rec: 01/14/23 15:36 RMA [id number]) Nutrition Malnutrition Evidence of Malnutrition Exists Yes Malnutrition (severe): Chronic Evidenced By Suboptimal Energy Intake ( Moderate),Weight Loss ( Moderate),Physical Changes ( Severe) Intake Problem Inadequate Oral Intake Etiology related to difficulty swallowing Signs/Symptoms as evidenced by NPO and need for PEG tube feeding support Status Active Problem Clinical Problem Chronic Disease or Condition Related Malnutrition Etiology Severe protein-calorie malnutrition in the context of acute on chronic disease related to inadequate oral intake and difficulty swallowing Signs/Symptoms as evidenced by BMI 18.2, severe muscle/fat wasting in the clavicle, orbital and temporal regions, unintentional weight loss~3% x less than 1 month, NPO and need for PEG tube/nutrition support Status Active Problem Recommendation Dietitian Recommendations/Changes Pt is to remain NPO with nutrition via PEG only. Will order: Jevity 1.5 Dipesh via PEG tube bolus 240mL 5 times per day provides 1800 kcal, 76 .6 gm protein and 912 mL free water; blends TF with banana and whey protein. Recommend 100 mL water flush before and after each bolus for additional 1000mL water per day. Lab / Micro Data Attestation: I reviewed the patient's lab results. 01/15/23 06:23 01/15/23 06:23 Labs: Laboratory Results - last 24 hr 01/14/23 16:48: WBC 5.4, RBC 2.99 L, Hgb 9.2 L, Hct 31.0 L, MCV 103.7 H, MCH 30.8, MCHC 29.7 L, RDW Std Deviation 61.0 H, RDW Coeff of Oz 16.1 H, Plt Count 203, MPV 11.1, Immature Gran % (Auto) 0.700, Neut % (Auto) 73.8 H, Lymph % (Auto) 19.6, [place] % (Auto) 4.9, Eos % (Auto) 0.4, Baso % (Auto) 0.6, Absolute Neuts (auto) 4.0, Absolute Lymphs (auto) 1.05, Nucleated RBC % 0.4, Differential Comment SCANNED 01/15/23 06:23: WBC 6.0, RBC 2.97 L, Hgb 9.1 L, Hct 30.3 L, MCV 102.0 H, MCH 30.6, MCHC 30.0 L, RDW Std Deviation 60.4 H, RDW Coeff of Oz 16.2 H, Plt Count 213, MPV 11.1, Immature Gran % (Auto) 1.000 H, Neut % (Auto) 76.8 H, Lymph % (Auto) 17.2 L, [place] % (Auto) 4.2, Eos % (Auto) 0.5, Baso % (Auto) 0.3, Absolute Neuts (auto) 4.6, Absolute Lymphs (auto) 1.03, Nucleated RBC % 0.5, Sodium 139, Potassium 4.0, Chloride 106, Carbon Dioxide 30.0, Anion Gap 3 L, BUN 42 H, Creatinine 1.26, Estim Creat Clear Calc 41.18, Est GFR (MDRD) Af Amer 72, Est GFR (MDRD) Non-Af 59 L, BUN/Creatinine Ratio 33.3 H, Glucose 74, Calcium 8.3 L, Total Bilirubin 0.40, AST 21, ALT 24, Alkaline Phosphatase 56, Total Protein 5.6 L, Albumin 1.6 L, Globulin 4.0, Albumin/Globulin Ratio 0.4 L Micro: Microbiology 01/14/23 02:45 Sputum, Expectorated/Coughed Gram Stain - Final 01/14/23 02:45 Sputum, Expectorated/Coughed Respiratory Culture - Preliminary 01/13/23 18:30 Blood Culture (Wb) - Port Blood Culture - Preliminary 01/13/23 19:25 Blood Culture (Wb) - Chest Blood Culture - Preliminary Rhythm Strip Rhythm Strip: Sinus Rhythm Rate: 106 Ectopy: PVC(s)
--- NOTE | 2023-01-15 10:46 | RAD_ITS ---
INDICATION: hypoxia EXAMINATION/TECHNIQUE: X-RAY - XR Chest 1 View COMPARISON January 13, 2023 FINDINGS: LINES/DEVICES: A left-sided MediPort is noted with tip projecting over the SVC. Tracheostomy tube is noted. LUNGS: There is persistent airspace disease at the lung bases and possible small bilateral effusions. These findings appear slightly worse when compared to prior study MEDIASTINUM AND CARDIOVASCULAR STRUCTURES: Cardiac silhouette not enlarged. Central airways and mediastinal contour are unremarkable. BONES AND SOFT TISSUES: Unremarkable. RAD/Chest 1 View (Portable) IMPRESSION: Slight worsening of airspace disease at the lung bases and small bilateral effusions. Tubes and lines as described. Electronically Signed: Taqueria Roberts MD at 11:07 EDT ,
[2023-01-15] MEDS: Ampicillin/Sulbactam 3 GM in 0.9% Normal Saline (100mL MB+) 100 ML IV ×2 (11:53→21:04)
[2023-01-15] MEDS: Furosemide 20 MG/2 ML VIAL IV (14:22)
[2023-01-15] MEDS: 0.9 % NaCl (Sterile) Posiflush 10 mL IV (14:28)
--- NOTE | 2023-01-15 16:35 | PN.HOSP_ITS ---
Reason for Visit Reason for Visit: Diagnoses Dehydration (01/14/23) Pneumonia due to Methicillin resistant Staphylococcus aureus (01/14/23) Acute and chronic respiratory failure with hypoxia (01/14/23) Bacteremia (01/14/23) Subjective Subjective Patient was seen and examined today, his blood pressure has been running in the 90s and low 100s systolic today, his oxygen requirement has bumped up, I reviewed a chest x-ray on the patient which showed worsening airspace disease at the lung bases and small bilateral effusions. Infectious diseases who saw the patient today placed him on Unasyn and kept him on vancomycin, ID recommended pulmonary medicine see the patient I talked with Dr. Polo late this morning and he will see the patient tomorrow. Objective Data Objective Data Vital Signs: Vital Signs Temp Pulse Resp BP Pulse Ox O2 Del Method O2 Flow Rate 99 F 74 21 H 97/68 94 Trach Collar 8 01/15/23 09:00 01/15/23 12:00 01/15/23 12:00 01/15/23 12:00 01/15/23 12:00 01/15/23 13:46 01/15/23 13:38 FiO2 50 01/15/23 09:00 Oxygen Flow Rate (L/min) [ 4 AMBULATING with Oxygen #1] Oxygen Flow Rate (L/min) [At 2 REST with Oxygen] Oxygen Flow Rate (L/min) 8 Oxygen Delivery Method Trach Collar Weight: 57.47 kg Body Mass Index (BMI) 18.1 Intake & Output: Intake and Output for Last 24 Hours 01/13/23 01/14/23 01/15/23 23:59 23:59 23:59 Intake Total 1575.75 / 1575.75 2904.76 / 3361.41 2860.09 / 2860.09 Output Total 900 / 1225 725 / 725 Balance 1575.75 / 1575.75 2004.76 / 2136.41 2135.09 / 2135.09 Medical Nutrition Assessment Dietitian: Malnutrition Criteria Met Start: 01/14/23 15:35 Freq: Status: Active Protocol: Document 01/14/23 15:36 RMA (Rec: 01/14/23 15:36 RMA [id number]) Nutrition Malnutrition Evidence of Malnutrition Exists Yes Malnutrition (severe): Chronic Evidenced By Suboptimal Energy Intake ( Moderate),Weight Loss ( Moderate),Physical Changes ( Severe) Intake Problem Inadequate Oral Intake Etiology related to difficulty swallowing Signs/Symptoms as evidenced by NPO and need for PEG tube feeding support Status Active Problem Clinical Problem Chronic Disease or Condition Related Malnutrition Etiology Severe protein-calorie malnutrition in the context of acute on chronic disease related to inadequate oral intake and difficulty swallowing Signs/Symptoms as evidenced by BMI 18.2, severe muscle/fat wasting in the clavicle, orbital and temporal regions, unintentional weight loss~3% x less than 1 month, NPO and need for PEG tube/nutrition support Status Active Problem Recommendation Dietitian Recommendations/Changes Pt is to remain NPO with nutrition via PEG only. Will order: Jevity 1.5 Dipesh via PEG tube bolus 240mL 5 times per day provides 1800 kcal, 76 .6 gm protein and 912 mL free water; blends TF with banana and whey protein. Recommend 100 mL water flush before and after each bolus for additional 1000mL water per day. Lab / Micro Data 01/15/23 06:23 01/15/23 06:23 Labs: Laboratory Results - last 24 hr 01/14/23 16:48: WBC 5.4, RBC 2.99 L, Hgb 9.2 L, Hct 31.0 L, MCV 103.7 H, MCH 30.8, MCHC 29.7 L, RDW Std Deviation 61.0 H, RDW Coeff of Oz 16.1 H, Plt Count 203, MPV 11.1, Immature Gran % (Auto) 0.700, Neut % (Auto) 73.8 H, Lymph % (Auto) 19.6, [place] % (Auto) 4.9, Eos % (Auto) 0.4, Baso % (Auto) 0.6, Absolute Neuts (auto) 4.0, Absolute Lymphs (auto) 1.05, Nucleated RBC % 0.4, Differential Comment SCANNED 01/15/23 06:23: WBC 6.0, RBC 2.97 L, Hgb 9.1 L, Hct 30.3 L, MCV 102.0 H, MCH 30.6, MCHC 30.0 L, RDW Std Deviation 60.4 H, RDW Coeff of Oz 16.2 H, Plt Count 213, MPV 11.1, Immature Gran % (Auto) 1.000 H, Neut % (Auto) 76.8 H, Lymph % (Auto) 17.2 L, [place] % (Auto) 4.2, Eos % (Auto) 0.5, Baso % (Auto) 0.3, Absolute Neuts (auto) 4.6, Absolute Lymphs (auto) 1.03, Nucleated RBC % 0.5, Sodium 139, Potassium 4.0, Chloride 106, Carbon Dioxide 30.0, Anion Gap 3 L, BUN 42 H, Creatinine 1.26, Estim Creat Clear Calc 41.18, Est GFR (MDRD) Af Amer 72, Est GFR (MDRD) Non-Af 59 L, BUN/Creatinine Ratio 33.3 H, Glucose 74, Calcium 8.3 L, Total Bilirubin 0.40, AST 21, ALT 24, Alkaline Phosphatase 56, Total Protein 5.6 L, Albumin 1.6 L, Globulin 4.0, Albumin/Globulin Ratio 0.4 L Micro: Microbiology 01/13/23 18:30 Urine, Clean Catch Urine Culture - Final Yeast, not Velma albicans 01/15/23 10:35 Nasal Secretion SARS-CoV-2 Antigen (Rapid) - Final 01/14/23 02:45 Sputum, Expectorated/Coughed Gram Stain - Final 01/14/23 02:45 Sputum, Expectorated/Coughed Respiratory Culture - Preliminary 01/13/23 18:30 Blood Culture (Wb) - Port Blood Culture - Preliminary 01/13/23 19:25 Blood Culture (Wb) - Chest Blood Culture - Preliminary 01/13/23 22:29 Mucosa - Nose Respiratory Panel (PCR) - Final Radiography Diagnostic Testing: Radiology Impression Chest X-Ray 01/15/23 10:46 IMPRESSION: Slight worsening of airspace disease at the lung bases and small bilateral effusions. Tubes and lines as described. Electronically Signed: Taqueria Roberts MD at 11:07 EDT , Rhythm Strip Rhythm Strip: Sinus Rhythm Rate: 106 Ectopy: PVC(s) Physical Exam Narrative alert, oriented x3 and no apparent distress Constitutional Narrative: Patient appears to be frail and older than his stated age General Appearance: cooperative, well kempt and well developed Orientation / Consciousness: awake, oriented to person and oriented to place HEENT normocephalic, head/scalp atraumatic and moist oral mucous membranes HEENT Narrative: Trach is in place Eyes PERRL, EOMs intact bilaterally and conjunctivae normal Neck supple, no JVD, thyroid normal and no carotid bruits General: trachea midline Resp normal respiratory effort, no retractions, no use of accessory muscles and clear to auscultation bilaterally Auscultation: Negative for rales, rhonchi or wheezes Cardio regular rate, regular rhythm, S1 normal heart sound, S2 normal heart sound, no murmurs, no rub and no gallops GI normal to inspection, nondistended, normoactive bowel sounds, soft to palpation, non-tender and non-distended Extremity no clubbing, cyanosis or edema Skin no rashes or lesions noted General Skin Exam: no breakdown Neuro CN's II-XII intact bilaterally, moves all extremities, no focal motor deficits and no sensory deficits noted Sensorium / Orientation: awake, alert, oriented to person and oriented to place Speech: speech normal Psych affect normal Assessment & Plan Assessment/Plan (1) Bacteremia: (2) Acute dehydration: PLAN: Plan 1. Bacteremia-etiology unclear at this point, patient is being seen by infectious diseases, he is currently on vancomycin and Unasyn, organism has not been identified at this point. #2 hypotension-patient's blood pressure is improved since yesterday, I decided to stop his fluid administration due to concerns of fluid overload, he was given 1 dose of IV Lasix today, his blood pressure will be monitored. #3 cardiac arrhythmias-per ventricular tachycardia-patient was placed on IV amiodarone, I have written for the patient to be on oral amiodarone after the IV amiodarone is finished #4 acute dehydration-patient's creatinine today is 1.26, BUN is slightly elevated, again I stop the patient's fluids today #5 chronic hypoxic respiratory failure-patient is on a trach mask, pulse ox will be monitored #6 chronic obstructive pulmonary disease-patient is on aerosol treatments, complicates care, medical course, recovery, and prognosis #7 hypothyroidism-patient is on Synthroid through his G-tube #8 severe chronic protein and caloric malnutrition in the context of acute on chronic disease related to inadequate oral intake and difficulty swallowing as evidenced by a BMI of 18.2, severe muscle/fat wasting in the clavicle, orbital and temporal regions, and unintentional weight loss of approximately 3% in less than a month. Jevity 1.5 240 cc 5 times a day, 100 mL water flush before and after each bolus, nutritional services is participating in his care Total clinical time spent by myself addressing the patient's medical issues, reviewing all of his data, and collaborating with patient's care team: 35 minutes Charges/Coding Visit Charges Inpatient E&M: 05914 Subs Hosp L2
[2023-01-15] MEDS: Amiodarone 200 MG Tablet PO (21:06)
[2023-01-16] VITALS (27 sets, daily range): BP systolic 82–115; BP diastolic 53–85; PULSE 70–107; RESP 15–26; TEMP 36.6–37.2; O2SAT 90–99
[2023-01-16] MEDS: Ampicillin/Sulbactam 3 GM in 0.9% Normal Saline (100mL MB+) 100 ML IV (05:57)
[2023-01-16] MEDS: Jevity 1.5. 1,000 ML Bottle 240 ML GT ×4 (05:57→22:26)
[2023-01-16] MEDS: Midodrine HCl 5 MG Tablet 10 MG GT ×3 (06:06→18:29)
[2023-01-16] MEDS: Levothyroxine 50 MCG Tablet GT (06:06)
--- NOTE | 2023-01-16 06:33 | CON.PCM.CC_ITS ---
Assessment & Plan Assessment/Plan (1) Acute and chronic respiratory failure with hypoxia: PLAN: Plan RECOMMENDATIONS: 1. Wean oxygen to maintain saturations at or above 90%. 2. Antimicrobials per ID recommendations. 3. Continue scheduled bronchodilators. 4. Initiate IV Solu-Medrol daily. 5. Initiate scheduled diuretic therapy, as tolerated by hemodynamics and renal function. 6. Maintain aspiration precautions. 7. Maintain n.p.o. status, with continued nutritional support via G-tube. IMPRESSIONS: 1. Acute on chronic hypoxemic respiratory failure Likely multifactorial in etiology. The patient does appear to be experiencing a COPD exacerbation related to underlying pneumonia once again. He remains on antimicrobials under the discretion of infectious diseases. Agree with continuing scheduled bronchodilators. Recommend initiating IV Solu-Medrol 40 mg daily. Maintain aspiration precautions. The patient does have bilateral pleural effusions noted on chest imaging and has been volume resuscitated during the hospitalization, making him overall net positive from a volume perspective for the hospitalization. Therefore, I would recommend the initiation of IV diuretic therapy, as tolerated by hemodynamics and renal function. Continue to wean oxygen to maintain saturations at or above 90%. Continue aggressive bronchopulmonary hygiene. 2. 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 Continue supportive care as noted above. Recommend initiation of diuretic therapy. PT/OT to work with the patient. This note was generated with [employer] dictation software. It may contain incorrect words, spelling, and punctuation that were not noted in checking the note before signing. HPI Consult Data Date of Consult: 01/16/23 HPI Narrative Reason for Consultation: Hypoxemia HPI Narrative: The patient is a 77-year-old male, with a history as outlined below, who presented to the emergency department via EMS on January 13 with declining functional status, shortness of breath and hypoxemia. The patient was recently hospitalized in December 2022 with a COPD exacerbation related to Klebsiella and MRSA pneumonia. The patient has a history of hypopharyngeal cancer, which was diagnosed in 2014. The patient was initially treated with chemotherapy and radiation, and did require eventual tracheostomy placement. He then developed progressive disease with mediastinal adenopathy and lung nodules. He was subsequently started on Keytruda. The patient has a long-standing history of dysphagia with chronic aspiration, and therefore also underwent a PEG tube placement. The patient is currently followed chronically by Dr. Max of oncology. The patient has a [id number] smoking history. He utilizes supplemental oxygen at 4 L/min at his baseline. He states that he receives all of his nutritional support via his PEG tube. The patient's hospital course has included antimicrobials and aerosol treatments to address an underlying left lower lobe pneumonia. The patient remains on 10 L/min trach collar supplemental O2. He is currently being followed by infectious diseases. The patient is documented to be overall net +4.8 L for the hospitalization. His last echocardiogram from December 2022 demonstrated a mildly dilated LV with an ejection fraction of 35 to 40%. In addition to the aforementioned, the patient remains on systemic anticoagulation with Eliquis. He has been medically managed with amiodarone to address his atrial fibrillation. 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 Shortness of breath on exertion Thrush, oral Tracheostomy in place tracheotomy and laryngeal biopsy Wears glasses Home Medications lactose-reduced food with fiber 0.06 gram-1.5 kcal/mL oral liquid 237 ml G-tube Q4H nutrition 09/09/18 [History Last Taken 04/19/22] midodrine 5 mg tablet 5 mg feeding tube TID blood pressure 04/17/22 [History Last Taken 04/20/22 06:00] guaifenesin 200 mg/5 mL oral liquid 400 mg (10 mL) PO Q6H PRN cough #473 mL 06/05/22 [Rx Last Taken Unknown] levothyroxine 50 mcg tablet See Rx Instructions .Route .COMPLEX thyroid #90 TABLETS 06/22/22 [Rx Last Taken Unknown] omeprazole 20 mg capsule,delayed release 20 mg PO DAILY reflux 06/25/22 [History Last Taken Unknown] bevacizumab 25 mg/mL intravenous solution (Avastin) 25 mg intravitreal QMONTH 08/10/22 [History Last Taken Unknown] budesonide 0.5 mg/2 mL suspension for nebulization 0.5 mg (2 mL) inhalation BID breathing #120 mL 08/13/22 [Rx Last Taken Unknown] ipratropium 0.5 mg-albuterol 3 mg (2.5 mg base)/3 mL nebulization soln 3 ml inhalation Q4H PRN shortness of breath or wheezing #180 mL 08/14/22 [Rx Last Taken Unknown] bvpecginysmdc-TD-xtwyorzyjxt 2.5 mg-5 mg-50 mg/5 mL oral liquid (Robitussin Cough and Cold CF) 15 ml PO Q4H PRN cold symptoms #118 mL 10/05/22 [Rx Last Taken Unknown] ondansetron 8 mg disintegrating tablet 8 mg PO Q8H PRN nausea and vomiting #30 tabs 11/13/22 [Rx Last Taken Unknown] gabapentin 300 mg capsule 300 mg feeding tube BID nerve pain #60 caps 11/30/22 [Rx Last Taken Unknown] lidocaine-prilocaine 2.5 %-2.5 % topical cream 50 g topical ONCE pain #30 grams 11/30/22 [Rx Last Taken Unknown] prednisolone sodium phosphate 15 mg/5 mL (5 mL) oral solution 15 mg (5 mL) PO DAILY inflammation #250 mL 12/03/22 [Rx Last Taken Unknown] apixaban 5 mg tablet (Eliquis) 2.5 mg (1/2 x 5 mg) PO BID blood thinner 30 days #30 tabs 12/18/22 [Rx Last Taken Unknown] carvedilol 3.125 mg tablet 3.125 mg PO BID blood pressure 30 days #60 tabs 12/18/22 [Rx Last Taken Unknown] furosemide 40 mg tablet (Lasix) 40 mg PO DAILY diuretic #30 tabs 12/18/22 [Rx Last Taken Unknown] Allergy/AdvReac Type Severity Reaction Status Date / Time venom-wasp Allergy Anaphylaxis Verified 01/13/23 17:29 pseudoephedrine HCl AdvReac Severe Unknown Verified 01/13/23 17:29 [From Sudafed] Antihistamines - Alkylamine AdvReac Mild Other Verified 01/13/23 17:29 Family History Father Colon cancer Hypertension Mother Hypertension Surgical History History of surgery Hx of tonsillectomy S/P percutaneous endoscopic gastrostomy (PEG) tube placement S/P TURP Social History household members: spouse Smoking Status: Former smoker quit date: 04/08/17 pack-years: 55 alcohol intake: never substance use type: does not use ROS ROS Narrative 10 systems reviewed with pertinent positives as noted in the HPI above. Physical Exam Const alert and no apparent distress Constitutional Narrative: Chronically frail and ill-appearing. General Appearance: cooperative HEENT normocephalic and head/scalp atraumatic Eyes PERRL, EOMs intact bilaterally and conjunctivae normal Neck Neck Narrative: Stable tracheostomy site with copious secretions. Chest inspection of chest normal Resp normal respiratory effort Auscultation: diminished lung sounds Cardio S1 normal heart sound and S2 normal heart sound Rhythm: abnormal rhythm GI soft to palpation and non-tender Inspection: GI tube present Extremity no clubbing, cyanosis or edema Skin no rashes or lesions noted Neuro CN's II-XII intact bilaterally and no focal motor deficits Psych Mood & Affect: flat affect Medical Records Data Medical Nutrition Assessment Dietitian: Malnutrition Criteria Met Start: 01/14/23 15:35 Freq: Status: Active Protocol: Document 01/14/23 15:36 RMA (Rec: 01/14/23 15:36 RMA [id number]) Nutrition Malnutrition Evidence of Malnutrition Exists Yes Malnutrition (severe): Chronic Evidenced By Suboptimal Energy Intake ( Moderate),Weight Loss ( Moderate),Physical Changes ( Severe) Intake Problem Inadequate Oral Intake Etiology related to difficulty swallowing Signs/Symptoms as evidenced by NPO and need for PEG tube feeding support Status Active Problem Clinical Problem Chronic Disease or Condition Related Malnutrition Etiology Severe protein-calorie malnutrition in the context of acute on chronic disease related to inadequate oral intake and difficulty swallowing Signs/Symptoms as evidenced by BMI 18.2, severe muscle/fat wasting in the clavicle, orbital and temporal regions, unintentional weight loss~3% x less than 1 month, NPO and need for PEG tube/nutrition support Status Active Problem Recommendation Dietitian Recommendations/Changes Pt is to remain NPO with nutrition via PEG only. Will order: Jevity 1.5 Dipesh via PEG tube bolus 240mL 5 times per day provides 1800 kcal, 76 .6 gm protein and 912 mL free water; blends TF with banana and whey protein. Recommend 100 mL water flush before and after each bolus for additional 1000mL water per day. Lab / Micro Data 01/15/23 06:23 01/15/23 06:23 Labs: Laboratory Results - last 24 hr 01/15/23 06:23: WBC 6.0, RBC 2.97 L, Hgb 9.1 L, Hct 30.3 L, MCV 102.0 H, MCH 30.6, MCHC 30.0 L, RDW Std Deviation 60.4 H, RDW Coeff of Oz 16.2 H, Plt Count 213, MPV 11.1, Immature Gran % (Auto) 1.000 H, Neut % (Auto) 76.8 H, Lymph % (Auto) 17.2 L, Childress % (Auto) 4.2, Eos % (Auto) 0.5, Baso % (Auto) 0.3, Absolute Neuts (auto) 4.6, Absolute Lymphs (auto) 1.03, Nucleated RBC % 0.5, Sodium 139, Potassium 4.0, Chloride 106, Carbon Dioxide 30.0, Anion Gap 3 L, BUN 42 H, Creatinine 1.26, Estim Creat Clear Calc 41.18, Est GFR (MDRD) Af Amer 72, Est GFR (MDRD) Non-Af 59 L, BUN/Creatinine Ratio 33.3 H, Glucose 74, Calcium 8.3 L, Total Bilirubin 0.40, AST 21, ALT 24, Alkaline Phosphatase 56, Total Protein 5.6 L, Albumin 1.6 L, Globulin 4.0, Albumin/Globulin Ratio 0.4 L Micro: Microbiology 01/13/23 18:30 Urine, Clean Catch Urine Culture - Final Yeast, not Velma albicans 01/15/23 10:35 Nasal Secretion SARS-CoV-2 Antigen (Rapid) - Final 01/14/23 02:45 Sputum, Expectorated/Coughed Gram Stain - Final 01/14/23 02:45 Sputum, Expectorated/Coughed Respiratory Culture - Preliminary 01/13/23 18:30 Blood Culture (Wb) - Port Blood Culture - Preliminary Rhythm Strip Rhythm Strip: Sinus Rhythm Rate: 106 Ectopy: PVC(s) Radiology Impression Chest X-Ray 01/15/23 10:46 IMPRESSION: Slight worsening of airspace disease at the lung bases and small bilateral effusions. Tubes and lines as described. Electronically Signed: Taqueria Roberts MD at 11:07 EDT , Charges/Coding Visit Charges Inpatient E&M: 39865 Init Hosp L3
[2023-01-16] MEDS: Budesonide Respules 0.5 MG/2 ML AMPUL.NEB. INHALATION (07:28)
[2023-01-16 08:52] LABS: BNP,B-Type NATRIURETIC PEPTIDE 275.7 pg/mL (0-100)
--- NOTE | 2023-01-16 09:53 | PCM.RX.CS ---
Consult Antibiotic Management Pharmacy has been consulted to manage selected antiobiotic: Vancomycin Type of Intervention Type of Consult: Follow-up Suspected Infection Suspected Infection: Bacteremia Prior Doses of Antibiotics Prior Doses of Antibiotics Received/Current Regimen: Currently on 500mg iv q12h. Labs Labs: Sodium 139 mmol/L (136-145) 01/15/23 06:23 Potassium 4.0 mmol/L (3.5-5.1) 01/15/23 06:23 Chloride 106 mmol/L (98-107) 01/15/23 06:23 Carbon Dioxide 30.0 mmol/L (21.0-32.0) 01/15/23 06:23 Anion Gap 3 (5-15) L 01/15/23 06:23 BUN 42 mg/dL (7-18) H 01/15/23 06:23 Creatinine 1.26 mg/dL (0.70-1.30) 01/15/23 06:23 Est GFR (MDRD) Af Amer 72 mL/min (>60) 01/15/23 06:23 Est GFR (MDRD) Non-Af 59 mL/min (>60) L 01/15/23 06:23 BUN/Creatinine Ratio 33.3 RATIO (10-20) H 01/15/23 06:23 Glucose 74 mg/dL (74-106) 01/15/23 06:23 Vancomycin Trough 21.0 ug/mL (5.0-15.0) H 01/16/23 08:15 Microbiology Microbiology: Microbiology 01/14/23 02:45 Sputum, Expectorated/Coughed Gram Stain - Final 01/14/23 02:45 Sputum, Expectorated/Coughed Respiratory Culture - Preliminary Gram negative jamie Gram negative jamie#2 01/13/23 19:25 Blood Culture (Wb) - Chest Blood Culture - Preliminary Gram positive jamie 01/13/23 18:30 Blood Culture (Wb) - Port Blood Culture - Preliminary Corynebacterium striatum 01/13/23 18:30 Urine, Clean Catch Urine Culture - Final Yeast, not Velma albicans 01/15/23 10:35 Nasal Secretion SARS-CoV-2 Antigen (Rapid) - Final 01/13/23 22:29 Mucosa - Nose Respiratory Panel (PCR) - Final Dosing Weight Weight used for dosin.5 kg Estimated Creatinine Clearance Estimated Creatinine Clearance: 41ml/min Goal Trough Goal Trough: 15-20 mcg/mL Pharmacy Plan for Drug Dosing Pharmacy Plan for Drug Dosing: Trough level this AM 21.0 (~10hrs post dose) and slightly above goal of 15-20mcg/ml. Will hold any dosing for now, Have ordered a random level for tonight ~12hrs post trough level. Dosing to resume when level <20. Pharmacy Service will continue to monitor and adjust dosing as required. Follow-Up Labs Follow-Up Labs: Trough: Vancomycin (random [id number])
[2023-01-16] MEDS: Gabapentin 300 MG Capsule GT ×2 (10:16→22:25)
[2023-01-16] MEDS: Amiodarone 200 MG Tablet PO ×2 (10:16→22:25)
[2023-01-16] MEDS: APIXABAN 2.5 MG TABLET (WCH) GT ×2 (10:16→22:25)
[2023-01-16] MEDS: 0.9% Saline Lock 10 ML Syringe IV ×2 (10:17→11:52)
--- NOTE | 2023-01-16 11:46 | PN.HOSP_ITS ---
Reason for Visit Reason for Visit: Diagnoses Dehydration (01/14/23) Pneumonia due to Methicillin resistant Staphylococcus aureus (01/14/23) Acute and chronic respiratory failure with hypoxia (01/14/23) Bacteremia (01/14/23) Subjective Subjective Sputum production from tracheostomy. Objective Data Objective Data Vital Signs: Vital Signs Temp Pulse Resp BP Pulse Ox O2 Del Method O2 Flow Rate 37.2 C 96 18 115/76 95 Trach Collar 12 01/16/23 10:11 01/16/23 11:00 01/16/23 11:00 01/16/23 11:00 01/16/23 11:00 01/16/23 11:00 01/16/23 09:28 FiO2 50 01/16/23 07:29 Oxygen Flow Rate (L/min) [ 4 AMBULATING with Oxygen #1] Oxygen Flow Rate (L/min) [At 2 REST with Oxygen] Oxygen Flow Rate (L/min) 12 Oxygen Delivery Method Trach Collar Weight: 57.47 kg Body Mass Index (BMI) 18.1 Intake & Output: Intake and Output for Last 24 Hours 01/14/23 01/15/23 01/16/23 23:59 23:59 23:59 Intake Total 2904.76 / 3361.41 3409.54 / 3409.54 312 / 312 Output Total 900 / 1225 1025 / 2225 1400 / 1400 Balance 2004.76 / 2136.41 2384.54 / 1184.54 -1088 / -1088 Medical Nutrition Assessment Dietitian: Malnutrition Criteria Met Start: 01/14/23 15:35 Freq: Status: Active Protocol: Document 01/14/23 15:36 RMA (Rec: 01/14/23 15:36 RMA [id number]) Nutrition Malnutrition Evidence of Malnutrition Exists Yes Malnutrition (severe): Chronic Evidenced By Suboptimal Energy Intake ( Moderate),Weight Loss ( Moderate),Physical Changes ( Severe) Intake Problem Inadequate Oral Intake Etiology related to difficulty swallowing Signs/Symptoms as evidenced by NPO and need for PEG tube feeding support Status Active Problem Clinical Problem Chronic Disease or Condition Related Malnutrition Etiology Severe protein-calorie malnutrition in the context of acute on chronic disease related to inadequate oral intake and difficulty swallowing Signs/Symptoms as evidenced by BMI 18.2, severe muscle/fat wasting in the clavicle, orbital and temporal regions, unintentional weight loss~3% x less than 1 month, NPO and need for PEG tube/nutrition support Status Active Problem Recommendation Dietitian Recommendations/Changes Pt is to remain NPO with nutrition via PEG only. Will order: Jevity 1.5 Dipesh via PEG tube bolus 240mL 5 times per day provides 1800 kcal, 76 .6 gm protein and 912 mL free water; blends TF with banana and whey protein. Recommend 100 mL water flush before and after each bolus for additional 1000mL water per day. Lab / Micro Data 01/15/23 06:23 01/15/23 06:23 Labs: Laboratory Results - last 24 hr 01/16/23 08:15: B-Natriuretic Peptide 275.7 H, Vancomycin Trough 21.0 H Micro: Microbiology 01/14/23 02:45 Sputum, Expectorated/Coughed Gram Stain - Final 01/14/23 02:45 Sputum, Expectorated/Coughed Respiratory Culture - Preliminary Gram negative jamie Gram negative jamie#2 01/13/23 19:25 Blood Culture (Wb) - Chest Blood Culture - Preliminary Gram positive jamie 01/13/23 18:30 Blood Culture (Wb) - Port Blood Culture - Preliminary Corynebacterium striatum 01/13/23 18:30 Urine, Clean Catch Urine Culture - Final Yeast, not Velma albicans 01/15/23 10:35 Nasal Secretion SARS-CoV-2 Antigen (Rapid) - Final 01/13/23 22:29 Mucosa - Nose Respiratory Panel (PCR) - Final Rhythm Strip Rhythm Strip: Sinus Rhythm Rate: 106 Ectopy: PVC(s) Physical Exam Const alert and no apparent distress Constitutional Narrative: up in chair. cachectic. HEENT head/scalp atraumatic Resp normal respiratory effort, no retractions, no use of accessory muscles and clear to auscultation bilaterally Cardio regular rate, regular rhythm, S1 normal heart sound and S2 normal heart sound GI normal to inspection, nondistended, normoactive bowel sounds, soft to palpation, non-tender and non-distended Extremity normal to inspection Assessment & Plan Assessment/Plan (1) Bacteremia: PLAN: BCx on 01/13 showed GPR, 01/14 2 types of GNR On vanc and pip/tazo ID following (2) Pneumonia: QUALIFIERS: Laterality: bilateral Lung location: lower lobe of lung Pneumonia type: due to methicillin-resistant Staphylococcus aureus (MRSA) Qualified Code(s): J15.212 - Pneumonia due to Methicillin resistant Staphylococcus aureus PLAN: Concern for gram negative and MRSA given recent h/o PSA, kleb and MRSA Vanc and pip/tazo (3) Acute and chronic respiratory failure: QUALIFIERS: Respiratory failure complication: hypoxia Qualified Code(s): J96.21 - Acute and chronic respiratory failure with hypoxia PLAN: multifactorial: due to pneumonia, COPD exacerbation, pleural effusions Pulm following BDs, methylpred wean oxygen as able to keep sats 90% or greater (4) Ventricular arrhythmia: PLAN: noted VT was on IV amiodarone, since transitioned to PO Echo from 12/13 shoed an EF of 35-40% with global hypokinesia PLAN: Plan Chronic conditions: * hypothyroidism-patient is on Synthroid through his G-tube * severe chronic protein and caloric malnutrition in the context of acute on chronic disease related to inadequate oral intake and difficulty swallowing as evidenced by a BMI of 18.2, severe muscle/fat wasting in the clavicle, orbital and temporal regions, and unintentional weight loss of approximately 3% in less than a month. Jevity 1.5 240 cc 5 times a day, 100 mL water flush before and after each bolus, nutritional services is participating in his care * h/o hypopharygeal cancer: s/p PEG. * neuropathy: gabapentin VTE prophylaxis: already on apixaban. DW Significant other at bedside. Charges/Coding Visit Charges Inpatient E&M: 45686 Subs Hosp L2
[2023-01-16] MEDS: Methylprednisolone Sod Succ 40 MG/ML VIAL IV (11:51)
[2023-01-16] MEDS: Lansoprazole 15 MG Capsule.DR GT (12:07)
[2023-01-16] MEDS: Carvedilol 3.125 MG TABLET GT ×2 (12:07→22:25)
--- NOTE | 2023-01-16 13:02 | PCM.PN.ID ---
Physical Exam Narrative Feeling better, still dyspnea, some cough. No fever or chills, no n/v/d. Const alert and no apparent distress Resp Auscultation: diminished lung sounds Cardio regular rate and regular rhythm GI soft to palpation, non-tender and non-distended Extremity General Extremity: Negative for edema Skin no rashes or lesions noted ID ID: Route of nutrition/ use of supplements: [] Nutritional Intake: [] IV Site: [] Maxwell Catheter: [] Assessment & Plan Assessment/Plan (1) Acute and chronic respiratory failure with hypoxia: (2) Pneumonia: QUALIFIERS: Pneumonia type: due to methicillin-resistant Staphylococcus aureus (MRSA) Laterality: bilateral Lung location: lower lobe of lung Qualified Code(s): J15.212 - Pneumonia due to Methicillin resistant Staphylococcus aureus (3) Bacteremia: PLAN: 2 of 2 bcx with GPR, one sample identified as corynebacter. Sputum cx with GNR x2. On vanc, unasyn. Seen by pulm. With recent h/o PsA in sputum, will change unasyn to zosyn. Will follow
--- NOTE | 2023-01-16 14:00 | CASEMGMT ---
LORRIE RVIAS in to discuss discharge planning with patient and . LORRIE RIVAS discussed the possibility of IV ATBs at discharge and different levels of care for IV ATBs. Patient and agreeable to TCU if patient would need IV ATBs. Patient and declined list of SNFs. LORRIE RIVAS updated SW regarding possible request for TCU. CM will continue to follow this patient and plan for a safe discharge.
--- NOTE | 2023-01-16 14:41 | CASEMGMT ---
SW made a referral to [facility]. Leann JUAREZ
[2023-01-16] MEDS: Piperacil/Tazobactam 3.375 GM in 0.9% Normal Saline (50mL MB+) 50 ML IV ×2 (15:04→22:26)
[2023-01-16 20:28] LABS: Vancomycin, Random Level 16.4 ug/mL (0.0-15.0)
--- NOTE | 2023-01-16 20:37 | PCM.RX.CS ---
Consult Antibiotic Management Pharmacy has been consulted to manage selected antiobiotic: Vancomycin Type of Intervention Type of Consult: Follow-up Labs Labs: Sodium 139 mmol/L (136-145) 01/15/23 06:23 Potassium 4.0 mmol/L (3.5-5.1) 01/15/23 06:23 Chloride 106 mmol/L (98-107) 01/15/23 06:23 Carbon Dioxide 30.0 mmol/L (21.0-32.0) 01/15/23 06:23 Anion Gap 3 (5-15) L 01/15/23 06:23 BUN 42 mg/dL (7-18) H 01/15/23 06:23 Creatinine 1.26 mg/dL (0.70-1.30) 01/15/23 06:23 Est GFR (MDRD) Af Amer 72 mL/min (>60) 01/15/23 06:23 Est GFR (MDRD) Non-Af 59 mL/min (>60) L 01/15/23 06:23 BUN/Creatinine Ratio 33.3 RATIO (10-20) H 01/15/23 06:23 Glucose 74 mg/dL (74-106) 01/15/23 06:23 Vancomycin Trough 21.0 ug/mL (5.0-15.0) H 01/16/23 08:15 Random Vancomycin 16.4 ug/mL (0.0-15.0) H 01/16/23 19:50 Microbiology Microbiology: Microbiology 01/13/23 18:30 Blood Culture (Wb) - Port Blood Culture - Preliminary Corynebacterium striatum 01/14/23 02:45 Sputum, Expectorated/Coughed Gram Stain - Final 01/14/23 02:45 Sputum, Expectorated/Coughed Respiratory Culture - Preliminary Gram negative jamie Gram negative jamie#2 01/13/23 19:25 Blood Culture (Wb) - Chest Blood Culture - Preliminary Gram positive jamie 01/13/23 18:30 Urine, Clean Catch Urine Culture - Final Yeast, not Velma albicans 01/15/23 10:35 Nasal Secretion SARS-CoV-2 Antigen (Rapid) - Final 01/13/23 22:29 Mucosa - Nose Respiratory Panel (PCR) - Final Goal Trough Goal Trough: 15-20 mcg/mL Pharmacy Plan for Drug Dosing Pharmacy Plan for Drug Dosing: VANCOMYCIN LEVEL RECEIVED Current Vancomycin Dose: ON HOLD- previous trough was elevated Number of Doses Received: 3 prior to dc Vancomycin Level: 16.4 Hours Since Last Dose: ~22hrs Renal Function: 1.26 Renal Function Trend: stable Vancomycin Plan/Comments: Patient had a trough drawn which resulted in a value of 16.4 (goal 15-20). Patient is now within goal trough range. Will resume vancomycin at this time. Will start vancomycin 750mg IV Q24hr to start 01/16/23 @2100. Pending Level: 01/18/23 @2029, prior to 3rd dose of new regimen. Pharmacy Service will continue to monitor and adjust dosing as required.
[2023-01-16] MEDS: Vancomycin HCl 750 MG in 0.9% Normal Saline (250mL Bag) 250 ML 250 MG IV (21:15)
[2023-01-17] VITALS (16 sets, daily range): BP systolic 84–122; BP diastolic 54–80; PULSE 56–81; RESP 14–22; TEMP 3.3–38; O2SAT 93–100
[2023-01-17] MEDS: Piperacil/Tazobactam 3.375 GM in 0.9% Normal Saline (50mL MB+) 50 ML IV (05:30)
[2023-01-17] MEDS: Midodrine HCl 5 MG Tablet 10 MG GT ×3 (05:33→17:11)
[2023-01-17] MEDS: Levothyroxine 50 MCG Tablet GT (05:33)
[2023-01-17] MEDS: Jevity 1.5. 1,000 ML Bottle 240 ML GT ×5 (05:33→21:30)
[2023-01-17 06:16] LABS: Absolute Lymphocyte Count 0.95 X10^3/uL (0.83-4.51); Absolute Neutrophil Count 4.1 X10^3/uL (2.0-7.7); Basophil# 0.02 X10^3/uL; Basophil% 0.4 % (0-1); Hematocrit 29.4 % (40-54); Lymphocyte # 0.95 X10^3/ul (0.83-4.51); Lymphocyte % 18.2 % (19-41); Mean Corp Hgb Conc 30.6 g/dL (32-36); Mean Corpuscular Hgb 30.7 pg (27.0-32.0); Mean Corpuscular Volume 100.3 fL (80-94); Mean Platelet Vol. 11.3 fl (6.2-12.0); Monocyte# 0.14 X10^3/uL; Monocyte% 2.7 % (0-10); NRBC Flagged by Analyzer 0 % (0-5); Neutrophil # 4.05 X10^3/uL (2.7-7.7); Neutrophil % 77.7 % (47-70); Platelet Count 227 K/mm3 (150-450); RBC Distribution Width CV 15.9 % (11.6-14.6); RBC Distribution Width SD 59.2 fl (35.1-43.9); Red Blood Count 2.93 M/mm3 (4.6-6.2); White Blood Count 5.2 K/mm3 (4.4-11.0)
[2023-01-17 06:53] LABS: Anion Gap 5 (5-15); BUN 25 mg/dL (7-18); BUN/Creat Ratio 19.4 RATIO (10-20); Calcium,Total 8.7 mg/dL (8.5-10.1); Chloride 106 mmol/L (98-107); Creatinine, Serum 1.29 mg/dL (0.70-1.30); EST Glomerular Filtration Rate 58 mL/min (>60); Est Glom Filt Rate - Afr Amer 70 mL/min (>60); Estimated Creatinine Clearance 40.22 ml/min; Glucose 135 mg/dL (74-106); Potassium 4.3 mmol/L (3.5-5.1); Sodium Level 138 mmol/L (136-145)
--- NOTE | 2023-01-17 08:10 | PCM.PN.HOSP ---
Reason for Visit Reason for Visit: Diagnoses Dehydration (01/14/23) Cardiac arrhythmia, unspecified (01/14/23) Pneumonia due to Methicillin resistant Staphylococcus aureus (01/14/23) Acute and chronic respiratory failure with hypoxia (01/14/23) Bacteremia (01/14/23) Subjective Subjective Still with mucus production. Breathing stable. Objective Data Objective Data Vital Signs: Vital Signs Temp Pulse Resp BP Pulse Ox O2 Del Method O2 Flow Rate 36.7 C 72 18 98/72 96 Trach Collar 12 01/17/23 04:00 01/17/23 04:00 01/17/23 04:00 01/17/23 04:00 01/17/23 04:37 01/17/23 04:37 01/16/23 09:28 FiO2 30 01/17/23 04:37 Oxygen Flow Rate (L/min) [ 4 AMBULATING with Oxygen #1] Oxygen Flow Rate (L/min) [At 2 REST with Oxygen] Oxygen Flow Rate (L/min) 12 Oxygen Delivery Method Trach Collar Weight: 57.47 kg Body Mass Index (BMI) 18.1 Intake & Output: Intake and Output for Last 24 Hours 01/15/23 01/16/23 01/17/23 23:59 23:59 23:59 Intake Total 3409.54 / 3409.54 1607 / 1807 650 / 650 Output Total 1025 / 2225 1400 / 1600 200 / 200 Balance 2384.54 / 1184.54 207 / 207 450 / 450 Medical Nutrition Assessment Dietitian: Malnutrition Criteria Met Start: 01/14/23 15:35 Freq: Status: Active Protocol: Document 01/16/23 13:26 RMA (Rec: 01/16/23 13:26 RMA [id number]) Nutrition Malnutrition Evidence of Malnutrition Exists Yes Malnutrition (severe): Chronic Evidenced By Suboptimal Energy Intake ( Moderate),Weight Loss ( Moderate),Physical Changes ( Severe) Intake Problem Inadequate Oral Intake Etiology related to difficulty swallowing Signs/Symptoms as evidenced by NPO and need for PEG tube feeding support Status Active Problem Clinical Problem Chronic Disease or Condition Related Malnutrition Etiology Severe protein-calorie malnutrition in the context of acute on chronic disease related to inadequate oral intake and difficulty swallowing Signs/Symptoms as evidenced by BMI 18.2, severe muscle/fat wasting in the clavicle, orbital and temporal regions, unintentional weight loss~3% x less than 1 month, NPO and need for PEG tube/nutrition support Status Active Problem Recommendation Dietitian Recommendations/Changes Pt is to remain NPO with nutrition via PEG only. Continue TF via PEG: Jevity 1. 5 Dipesh 240mL bolus 5 times per day to provide 1800 kcal, 76.6 gm protein and 912 mL free water; blends TF with banana and whey protein. Water flush of 100mL before and after each bolus for additional 1000mL water per day. Trend weight as available. Lab / Micro Data 01/17/23 05:40 01/17/23 05:40 Labs: Laboratory Results - last 24 hr 01/16/23 08:15: B-Natriuretic Peptide 275.7 H, Vancomycin Trough 21.0 H 01/16/23 19:50: Random Vancomycin 16.4 H 01/17/23 05:40: WBC 5.2, RBC 2.93 L, Hgb 9.0 L, Hct 29.4 L, MCV 100.3 H, MCH 30.7, MCHC 30.6 L, RDW Std Deviation 59.2 H, RDW Coeff of Oz 15.9 H, Plt Count 227, MPV 11.3, Immature Gran % (Auto) 1.000 H, Neut % (Auto) 77.7 H, Lymph % (Auto) 18.2 L, [place] % (Auto) 2.7, Eos % (Auto) 0.0, Baso % (Auto) 0.4, Absolute Neuts (auto) 4.1, Absolute Lymphs (auto) 0.95, Nucleated RBC % 0, Sodium 138, Potassium 4.3, Chloride 106, Carbon Dioxide 27.0, Anion Gap 5, BUN 25 H, Creatinine 1.29, Estim Creat Clear Calc 40.22, Est GFR (MDRD) Af Amer 70, Est GFR (MDRD) Non-Af 58 L, BUN/Creatinine Ratio 19.4, Glucose 135 H, Calcium 8.7 Micro: Microbiology 01/13/23 18:30 Blood Culture (Wb) - Port Blood Culture - Preliminary Corynebacterium striatum 01/14/23 02:45 Sputum, Expectorated/Coughed Gram Stain - Final 01/14/23 02:45 Sputum, Expectorated/Coughed Respiratory Culture - Preliminary Gram negative ajmie Gram negative jamie#2 01/13/23 19:25 Blood Culture (Wb) - Chest Blood Culture - Preliminary Gram positive jamie 01/13/23 18:30 Urine, Clean Catch Urine Culture - Final Yeast, not Velma albicans 01/15/23 10:35 Nasal Secretion SARS-CoV-2 Antigen (Rapid) - Final 01/13/23 22:29 Mucosa - Nose Respiratory Panel (PCR) - Final Rhythm Strip Rhythm Strip: Sinus Rhythm Rate: 106 Ectopy: PVC(s) Physical Exam Const alert and no apparent distress HEENT head/scalp atraumatic and moist oral mucous membranes HEENT Narrative: cachectic. Resp normal respiratory effort and no retractions Cardio regular rate, regular rhythm, S1 normal heart sound and S2 normal heart sound GI normal to inspection, nondistended, normoactive bowel sounds, soft to palpation, non-tender and non-distended Extremity normal to inspection, full ROM and no clubbing, cyanosis or edema Neuro oriented x3 and CN's II-XII intact bilaterally Sensorium / Orientation: awake and alert Psych affect normal Assessment & Plan Assessment/Plan (1) Bacteremia: PLAN: BCx on 01/13 showed GPR, On vanc and pip/tazo ID following (2) Pneumonia: QUALIFIERS: Laterality: bilateral Lung location: lower lobe of lung Pneumonia type: due to methicillin-resistant Staphylococcus aureus (MRSA) Qualified Code(s): J15.212 - Pneumonia due to Methicillin resistant Staphylococcus aureus PLAN: Concern for gram negative and MRSA given recent h/o PSA, kleb and MRSA Vanc and meropenem. Cx showing GNR on 01/14. (3) Acute and chronic respiratory failure: QUALIFIERS: Respiratory failure complication: hypoxia Qualified Code(s): J96.21 - Acute and chronic respiratory failure with hypoxia PLAN: multifactorial: due to pneumonia, COPD exacerbation, pleural effusions Pulm following BDs, methylpred wean oxygen as able to keep sats 90% or greater Furosemide challenge. (4) Ventricular arrhythmia: PLAN: noted VT was on IV amiodarone, since transitioned to PO Echo from 12/13 shoed an EF of 35-40% with global hypokinesia PLAN: Plan Chronic conditions: hypothyroidism-patient is on Synthroid through his G-tube severe chronic protein and caloric malnutrition in the context of acute on chronic disease related to inadequate oral intake and difficulty swallowing as evidenced by a BMI of 18.2, severe muscle/fat wasting in the clavicle, orbital and temporal regions, and unintentional weight loss of approximately 3% in less than a month. Jevity 1.5 240 cc 5 times a day, 100 mL water flush before and after each bolus, nutritional services is participating in his care h/o hypopharygeal cancer: s/p PEG. neuropathy: gabapentin VTE prophylaxis: already on apixaban. Charges/Coding Visit Charges Inpatient E&M: 20438 Subs Hosp L2
--- NOTE | 2023-01-17 09:12 | PN.CC_ITS ---
Assessment & Plan Assessment/Plan (1) Acute and chronic respiratory failure with hypoxia: PLAN: Plan RECOMMENDATIONS: 1. Wean oxygen to maintain saturations at or above 90%. 2. Antimicrobials per ID recommendations. 3. Continue scheduled bronchodilators and steroids. 4. Maintain aspiration precautions. 5. Maintain n.p.o. status, with continued nutritional support via G-tube. 6. Aggressive bronchopulmonary hygiene. IMPRESSIONS: 1. Acute on chronic hypoxemic respiratory failure Likely multifactorial in etiology. The patient does appear to be experiencing a COPD exacerbation related to underlying pneumonia once again. He remains on antimicrobials under the discretion of infectious diseases. Agree with continuing scheduled bronchodilators and steroids. Maintain aspiration precautions. The patient does have bilateral pleural effusions noted on chest imaging and has been volume resuscitated during the hospitalization, making him overall net positive from a volume perspective for the hospitalization. Therefore, I would recommend the initiation of diuretic therapy, as tolerated by hemodynamics and renal function. Continue to wean oxygen to maintain saturations at or above 90%. Continue aggressive bronchopulmonary hygiene. 2. 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 Continue supportive care as noted above. Recommend initiation of diuretic therapy, if feasible from a hemodynamic perspective. PT/OT to work with the patient. This note was generated with [employer] dictation software. It may contain incorrect words, spelling, and punctuation that were not noted in checking the note before signing. Subjective Subjective The patient was seen and examined at the bedside this morning. Events from the last 24 hours have been reviewed. The patient is currently afebrile, hemodynamically stable and maintaining appropriate oxygen saturations on 7 L/min via trach collar. The patient remains on antimicrobials, scheduled bronchodilators and steroids. Objective Data Objective Data The patient's most recent lab work, culture data and imaging studies have all been personally reviewed. Sputum culture is currently growing Klebsiella and Pseudomonas. Vital Signs: Vital Signs Temp Pulse Resp BP Pulse Ox O2 Del Method O2 Flow Rate 98.1 F 72 18 98/72 95 Trach Collar 7 01/17/23 04:00 01/17/23 04:00 01/17/23 04:00 01/17/23 04:00 01/17/23 08:08 01/17/23 04:37 01/17/23 08:08 FiO2 30 01/17/23 04:37 Oxygen Flow Rate (L/min) [ 4 AMBULATING with Oxygen #1] Oxygen Flow Rate (L/min) [At 2 REST with Oxygen] Oxygen Flow Rate (L/min) 7 Oxygen Delivery Method Trach Collar Weight: 126 lb 11.194 oz Body Mass Index (BMI) 18.1 Intake & Output: Intake and Output for Last 24 Hours 01/15/23 01/16/23 01/17/23 23:59 23:59 23:59 Intake Total 3409.54 / 3409.54 1607 / 1807 650 / 650 Output Total 1025 / 2225 1400 / 1600 200 / 200 Balance 2384.54 / 1184.54 207 / 207 450 / 450 Medical Nutrition Assessment Dietitian: Malnutrition Criteria Met Start: 01/14/23 15:35 Freq: Status: Active Protocol: Document 01/16/23 13:26 RMA (Rec: 01/16/23 13:26 RMA [id number]) Nutrition Malnutrition Evidence of Malnutrition Exists Yes Malnutrition (severe): Chronic Evidenced By Suboptimal Energy Intake ( Moderate),Weight Loss ( Moderate),Physical Changes ( Severe) Intake Problem Inadequate Oral Intake Etiology related to difficulty swallowing Signs/Symptoms as evidenced by NPO and need for PEG tube feeding support Status Active Problem Clinical Problem Chronic Disease or Condition Related Malnutrition Etiology Severe protein-calorie malnutrition in the context of acute on chronic disease related to inadequate oral intake and difficulty swallowing Signs/Symptoms as evidenced by BMI 18.2, severe muscle/fat wasting in the clavicle, orbital and temporal regions, unintentional weight loss~3% x less than 1 month, NPO and need for PEG tube/nutrition support Status Active Problem Recommendation Dietitian Recommendations/Changes Pt is to remain NPO with nutrition via PEG only. Continue TF via PEG: Jevity 1. 5 Dipesh 240mL bolus 5 times per day to provide 1800 kcal, 76.6 gm protein and 912 mL free water; blends TF with banana and whey protein. Water flush of 100mL before and after each bolus for additional 1000mL water per day. Trend weight as available. Lab / Micro Data Attestation: I reviewed the patient's lab results. 01/17/23 05:40 01/17/23 05:40 Labs: Laboratory Results - last 24 hr 01/16/23 19:50: Random Vancomycin 16.4 H 01/17/23 05:40: WBC 5.2, RBC 2.93 L, Hgb 9.0 L, Hct 29.4 L, MCV 100.3 H, MCH 30.7, MCHC 30.6 L, RDW Std Deviation 59.2 H, RDW Coeff of Oz 15.9 H, Plt Count 227, MPV 11.3, Immature Gran % (Auto) 1.000 H, Neut % (Auto) 77.7 H, Lymph % (Auto) 18.2 L, [place] % (Auto) 2.7, Eos % (Auto) 0.0, Baso % (Auto) 0.4, Absolute Neuts (auto) 4.1, Absolute Lymphs (auto) 0.95, Nucleated RBC % 0, Sodium 138, Potassium 4.3, Chloride 106, Carbon Dioxide 27.0, Anion Gap 5, BUN 25 H, Creatinine 1.29, Estim Creat Clear Calc 40.22, Est GFR (MDRD) Af Amer 70, Est GFR (MDRD) Non-Af 58 L, BUN/Creatinine Ratio 19.4, Glucose 135 H, Calcium 8.7 Micro: Microbiology 01/14/23 02:45 Sputum, Expectorated/Coughed Gram Stain - Final 01/14/23 02:45 Sputum, Expectorated/Coughed Respiratory Culture - Prel iminary Klebsiella pneumoniae sp pneum Pseudomonas aeruginosa Pseudomonas aeruginosa#2 01/13/23 18:30 Blood Culture (Wb) - Port Blood Culture - Preliminary Corynebacterium striatum 01/13/23 19:25 Blood Culture (Wb) - Chest Blood Culture - Preliminary Gram positive jamie 01/13/23 18:30 Urine, Clean Catch Urine Culture - Final Yeast, not Velma albicans 01/15/23 10:35 Nasal Secretion SARS-CoV-2 Antigen (Rapid) - Final 01/13/23 22:29 Mucosa - Nose Respiratory Panel (PCR) - Final Rhythm Strip Rhythm Strip: Sinus Rhythm Rate: 106 Ectopy: PVC(s) Physical Exam Const alert and no apparent distress Constitutional Narrative: Chronically frail and ill-appearing. General Appearance: cooperative HEENT normocephalic and head/scalp atraumatic Eyes PERRL, EOMs intact bilaterally and conjunctivae normal Neck Neck Narrative: Stable tracheostomy site with copious secretions. Chest inspection of chest normal Resp normal respiratory effort Auscultation: rhonchi and diminished lung sounds Cardio regular rate, S1 normal heart sound and S2 normal heart sound GI soft to palpation and non-tender Inspection: GI tube present Extremity no clubbing, cyanosis or edema Skin no rashes or lesions noted Neuro CN's II-XII intact bilaterally and no focal motor deficits Psych Mood & Affect: flat affect Charges/Coding Visit Charges Inpatient E&M: 83538 Subs Hosp L2
[2023-01-17] MEDS: Lansoprazole 15 MG Capsule.DR GT (09:48)
[2023-01-17] MEDS: Gabapentin 300 MG Capsule GT ×2 (09:48→21:13)
[2023-01-17] MEDS: Amiodarone 200 MG Tablet PO ×2 (09:49→21:12)
[2023-01-17] MEDS: Methylprednisolone Sod Succ 40 MG/ML VIAL IV (09:49)
[2023-01-17] MEDS: APIXABAN 2.5 MG TABLET (WCH) GT ×2 (09:49→21:12)
[2023-01-17] MEDS: Carvedilol 3.125 MG TABLET GT ×2 (09:49→21:12)
--- NOTE | 2023-01-17 11:05 | PCM.PN.ID ---
Physical Exam Narrative Feeling about the same, breathing a little better, no fever Const alert and no apparent distress General Appearance: cooperative Resp Auscultation: diminished lung sounds Cardio regular rate and regular rhythm GI soft to palpation, non-tender and non-distended Skin no rashes or lesions noted ID ID: Route of nutrition/ use of supplements: [] Nutritional Intake: [] IV Site: [] Maxwell Catheter: [] Assessment & Plan Assessment/Plan (1) Acute and chronic respiratory failure with hypoxia: (2) Pneumonia: QUALIFIERS: Pneumonia type: due to methicillin-resistant Staphylococcus aureus (MRSA) Laterality: bilateral Lung location: lower lobe of lung Qualified Code(s): J15.212 - Pneumonia due to Methicillin resistant Staphylococcus aureus (3) Bacteremia: PLAN: 2 of 2 bcx with GPR, one sample identified as corynebacter. Sputum cx with pseudomonas x2 and klebs. Will change to vanc/juan j. Plan on short course IV abx at discharge. Will follow
[2023-01-17] MEDS: Meropenem 1 GM in 0.9% Normal Saline (100mL MB+) 100 ML IV ×2 (11:36→23:10)
[2023-01-17] MEDS: Budesonide Respules 0.5 MG/2 ML AMPUL.NEB. INHALATION (12:36)
[2023-01-17] MEDS: Furosemide 40 MG/4 ML Vial IV (13:14)
[2023-01-17] MEDS: 0.9% Normal Saline (250mL Bag) 250 ML 999 ML IV (14:44)
[2023-01-17] MEDS: Vancomycin HCl 750 MG in 0.9% Normal Saline (250mL Bag) 250 ML 250 MG IV (21:09)
[2023-01-18 03:54] VITALS: BP 102/67; PULSE 70; RESP 18; TEMP 36.5; O2SAT 94
[2023-01-18 03:55] VITALS: BP 102/67; PULSE 70; RESP 18; TEMP 36.5; O2SAT 94
[2023-01-18] MEDS: Midodrine HCl 5 MG Tablet 10 MG GT ×2 (05:11→11:30)
[2023-01-18] MEDS: Levothyroxine 50 MCG Tablet GT (05:11)
[2023-01-18] MEDS: Ipratropium/Albuterol Sulfate 3 ML AMPUL.NEB INHALATION (07:15)
[2023-01-18] MEDS: Budesonide Respules 0.5 MG/2 ML AMPUL.NEB. INHALATION (07:15)
[2023-01-18 07:20] LABS: Anion Gap 5 (5-15); BUN 27 mg/dL (7-18); BUN/Creat Ratio 21.6 RATIO (10-20); Chloride 108 mmol/L (98-107); Creatinine, Serum 1.25 mg/dL (0.70-1.30); EST Glomerular Filtration Rate 60 mL/min (>60); Est Glom Filt Rate - Afr Amer 72 mL/min (>60); Estimated Creatinine Clearance 41.51 ml/min; Glucose 79 mg/dL (74-106); Potassium 4.6 mmol/L (3.5-5.1); Sodium Level 142 mmol/L (136-145)
[2023-01-18 07:25] VITALS: PULSE 77; RESP 21
[2023-01-18 08:24] VITALS: BP 102/67; PULSE 70; RESP 18; TEMP 36.5; O2SAT 94; O2SAT 95
--- NOTE | 2023-01-18 08:42 | PN.HOSP_ITS ---
Reason for Visit Reason for Visit: Diagnoses Dehydration (01/14/23) Cardiac arrhythmia, unspecified (01/14/23) Pneumonia due to Methicillin resistant Staphylococcus aureus (01/14/23) Acute and chronic respiratory failure with hypoxia (01/14/23) Bacteremia (01/14/23) Subjective Subjective Feels well. No events overnight. Objective Data Objective Data Vital Signs: Vital Signs Temp Pulse Resp BP Pulse Ox O2 Del Method O2 Flow Rate 36.5 C L 70 18 102/67 95 Trach Collar 28 01/18/23 08:24 01/18/23 08:24 01/18/23 08:24 01/18/23 08:24 01/18/23 08:24 01/18/23 08:24 01/17/23 22:00 FiO2 28 01/18/23 08:24 Oxygen Flow Rate (L/min) [ 4 AMBULATING with Oxygen #1] Oxygen Flow Rate (L/min) [At 2 REST with Oxygen] Oxygen Flow Rate (L/min) 28 Oxygen Delivery Method Trach Collar Weight: 57.47 kg Body Mass Index (BMI) 18.1 Intake & Output: Intake and Output for Last 24 Hours 01/16/23 01/17/23 01/18/23 23:59 23:59 23:59 Intake Total 1607 / 1807 2535.00 / 2535.00 320 / 320 Output Total 1400 / 1600 400 / 400 300 / 300 Balance 207 / 207 2135.00 / 2135.00 Medical Nutrition Assessment Dietitian: Malnutrition Criteria Met Start: 01/14/23 15:35 Freq: Status: Active Protocol: Document 01/16/23 13:26 RMA (Rec: 01/16/23 13:26 RMA [id number]) Nutrition Malnutrition Evidence of Malnutrition Exists Yes Malnutrition (severe): Chronic Evidenced By Suboptimal Energy Intake ( Moderate),Weight Loss ( Moderate),Physical Changes ( Severe) Intake Problem Inadequate Oral Intake Etiology related to difficulty swallowing Signs/Symptoms as evidenced by NPO and need for PEG tube feeding support Status Active Problem Clinical Problem Chronic Disease or Condition Related Malnutrition Etiology Severe protein-calorie malnutrition in the context of acute on chronic disease related to inadequate oral intake and difficulty swallowing Signs/Symptoms as evidenced by BMI 18.2, severe muscle/fat wasting in the clavicle, orbital and temporal regions, unintentional weight loss~3% x less than 1 month, NPO and need for PEG tube/nutrition support Status Active Problem Recommendation Dietitian Recommendations/Changes Pt is to remain NPO with nutrition via PEG only. Continue TF via PEG: Jevity 1. 5 Dipesh 240mL bolus 5 times per day to provide 1800 kcal, 76.6 gm protein and 912 mL free water; blends TF with banana and whey protein. Water flush of 100mL before and after each bolus for additional 1000mL water per day. Trend weight as available. Lab / Micro Data 01/17/23 05:40 01/18/23 06:30 Labs: Laboratory Results - last 24 hr 01/18/23 06:30: Sodium 142, Potassium 4.6, Chloride 108 H, Carbon Dioxide 29.0, Anion Gap 5, BUN 27 H, Creatinine 1.25, Estim Creat Clear Calc 41.51, Est GFR (MDRD) Af Amer 72, Est GFR (MDRD) Non-Af 60, BUN/Creatinine Ratio 21.6 H, Glucose 79, Calcium 9.0 Micro: Microbiology 01/14/23 02:45 Sputum, Expectorated/Coughed Gram Stain - Final 01/14/23 02:45 Sputum, Expectorated/Coughed Respiratory Culture - Final Klebsiella pneumoniae sp pneum Pseudomonas aeruginosa Pseudomonas aeruginosa#2 01/13/23 18:30 Blood Culture (Wb) - Port Blood Culture - Preliminary Corynebacterium striatum 01/13/23 19:25 Blood Culture (Wb) - Chest Blood Culture - Preliminary Gram positive jamie 01/13/23 18:30 Urine, Clean Catch Urine Culture - Final Yeast, not Velma albicans 01/15/23 10:35 Nasal Secretion SARS-CoV-2 Antigen (Rapid) - Final 01/13/23 22:29 Mucosa - Nose Respiratory Panel (PCR) - Final Rhythm Strip Rhythm Strip: Sinus Rhythm Rate: 106 Ectopy: PVC(s) Physical Exam Const alert and no apparent distress HEENT head/scalp atraumatic and moist oral mucous membranes Resp Resp Narrative: coarse breath sounds bilaterally. Cardio regular rate, regular rhythm, S1 normal heart sound and S2 normal heart sound GI normal to inspection, nondistended, normoactive bowel sounds, soft to palpation, non-tender and non-distended Assessment & Plan Assessment/Plan (1) Bacteremia: PLAN: BCx on 01/13 showed GPR, On vanc and pip/tazo ID following (2) Pneumonia: QUALIFIERS: Laterality: bilateral Lung location: lower lobe of lung Pneumonia type: due to methicillin-resistant Staphylococcus aureus (MRSA) Qualified Code(s): J15.212 - Pneumonia due to Methicillin resistant S taphylococcus aureus PLAN: Gram negative with klebsiella and pseudomonas. Vanc and meropenem. Cx showing GNR on 01/14. (3) Acute and chronic respiratory failure: QUALIFIERS: Respiratory failure complication: hypoxia Qualified Code(s): J96.21 - Acute and chronic respiratory failure with hypoxia PLAN: multifactorial: due to pneumonia, COPD exacerbation, pleural effusions Pulm following BDs, methylpred wean oxygen as able to keep sats 90% or greater Furosemide challenge. (4) Ventricular arrhythmia: PLAN: noted VT was on IV amiodarone, since transitioned to PO Echo from 12/13 showed an EF of 35-40% with global hypokinesia PLAN: Plan Chronic conditions: * hypothyroidism-patient is on Synthroid through his G-tube * severe chronic protein and caloric malnutrition in the context of acute on chr onic disease related to inadequate oral intake and difficulty swallowing as evidenced by a BMI of 18.2, severe muscle/fat wasting in the clavicle, orbital and temporal regions, and unintentional weight loss of approximately 3% in less than a month. Jevity 1.5 240 cc 5 times a day, 100 mL water flush before and after each bolus, nutritional services is participating in his care * h/o hypopharygeal cancer: s/p PEG. * neuropathy: gabapentin VTE prophylaxis: already on apixaban. Disposition: to SNF (TCU) pending ID's final abx recommendations. Charges/Coding Visit Charges Inpatient E&M: 06357 Subs Hosp L2
--- NOTE | 2023-01-18 09:34 | PCM.PN.INT ---
Assessment & Plan Assessment/Plan (1) Acute and chronic respiratory failure with hypoxia: PLAN: Plan RECOMMENDATIONS: 1. Wean oxygen to maintain saturations at or above 90%. 2. Antimicrobials per ID recommendations. 3. Continue scheduled bronchodilators. Transition to prednisolone and wean over the next 7 to 10 days 4. Maintain aspiration precautions. 5. Maintain n.p.o. status, with continued nutritional support via G-tube. 6. Aggressive bronchopulmonary hygiene. 7. Potential discharge if ID plan can be implemented with home IV antibiotics IMPRESSIONS: 1. Acute on chronic hypoxemic respiratory failure Likely multifactorial in etiology. The patient does appear to be experiencing a COPD exacerbation related to underlying pneumonia once again. He remains on antimicrobials under the discretion of infectious diseases. Agree with continuing scheduled bronchodilators. We will transition patient over to prednisolone and wean over the next 7 to 10 days. Maintain aspiration precautions. The patient does have bilateral pleural effusions noted on chest imaging and has been volume resuscitated during the hospitalization, making him overall net positive from a volume perspective for the hospitalization. Therefore, I would recommend the initiation of diuretic therapy, as tolerated by hemodynamics and renal function. Continue to wean oxygen to maintain saturations at or above 90%. Patient does have significant secretions, but has been able to tolerate aggressive pulmonary hygiene techniques. This can likely be continued on discharge easily. If patient is able to have an antibiotic Sagar will plan, he could potentially be discharged today 2. 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 Continue supportive care as noted above. Recommend initiation of diuretic therapy, if feasible from a hemodynamic perspective. PT/OT to work with the patient. This note was generated with [employer] dictation software. It may contain incorrect words, spelling, and punctuation that were not noted in checking the note before signing. Subjective Subjective Patient did well overnight. Patient continues to have a cough productive of sputum, but feels this is improving. Patient has not had any hemoptysis or worsening in oxygenation. Patient states he is on 2 to 4 L/min at baseline at home. Objective Data Objective Data Vital Signs: Vital Signs Temp Pulse Resp BP Pulse Ox O2 Del Method O2 Flow Rate 36.5 C L 70 18 102/67 95 Trach Collar 28 01/18/23 08:24 01/18/23 08:24 01/18/23 08:24 01/18/23 08:24 01/18/23 08:24 01/18/23 08:24 01/17/23 22:00 FiO2 28 01/18/23 08:24 Oxygen Flow Rate (L/min) [ 4 AMBULATING with Oxygen #1] Oxygen Flow Rate (L/min) [At 2 REST with Oxygen] Oxygen Flow Rate (L/min) 28 Oxygen Delivery Method Trach Collar Weight: 57.47 kg Body Mass Index (BMI) 18.1 Intake & Output: Intake and Output for Last 24 Hours 01/16/23 01/17/23 01/18/23 23:59 23:59 23:59 Intake Total 1607 / 1807 2535.00 / 2535.00 320 / 320 Output Total 1400 / 1600 400 / 400 300 / 300 Balance 207 / 207 2135.00 / 2135.00 Medical Nutrition Assessment Dietitian: Malnutrition Criteria Met Start: 01/14/23 15:35 Freq: Status: Active Protocol: Document 01/16/23 13:26 RMA (Rec: 01/16/23 13:26 RMA [id number]) Nutrition Malnutrition Evidence of Malnutrition Exists Yes Malnutrition (severe): Chronic Evidenced By Suboptimal Energy Intake ( Moderate),Weight Loss ( Moderate),Physical Changes ( Severe) Intake Problem Inadequate Oral Intake Etiology related to difficulty swallowing Signs/Symptoms as evidenced by NPO and need for PEG tube feeding support Status Active Problem Clinical Problem Chronic Disease or Condition Related Malnutrition Etiology Severe protein-calorie malnutrition in the context of acute on chronic disease related to inadequate oral intake and difficulty swallowing Signs/Symptoms as evidenced by BMI 18.2, severe muscle/fat wasting in the clavicle, orbital and temporal regions, unintentional weight loss~3% x less than 1 month, NPO and need for PEG tube/nutrition support Status Active Problem Recommendation Dietitian Recommendations/Changes Pt is to remain NPO with nutrition via PEG only. Continue TF via PEG: Jevity 1. 5 Dipesh 240mL bolus 5 times per day to provide 1800 kcal, 76.6 gm protein and 912 mL free water; blends TF with banana and whey protein. Water flush of 100mL before and after each bolus for additional 1000mL water per day. Trend weight as available. Lab / Micro Data Attestation: I reviewed the patient's lab results. 01/17/23 05:40 01/18/23 06:30 Labs: Laboratory Results - last 24 hr 01/18/23 06:30: Sodium 142, Potassium 4.6, Chloride 108 H, Carbon Dioxide 29.0, Anion Gap 5, BUN 27 H, Creatinine 1.25, Estim Creat Clear Calc 41.51, Est GFR (MDRD) Af Amer 72, Est GFR (MDRD) Non-Af 60, BUN/Creatinine Ratio 21.6 H, Glucose 79, Calcium 9.0 Micro: Microbiology 01/14/23 02:45 Sputum, Expectorated/Coughed Gram Stain - Final 01/14/23 02:45 Sputum, Expectorated/Coughed Respiratory Culture - Final Klebsiella pneumoniae sp pneum Pseudomonas aeruginosa Pseudomonas aeruginosa#2 01/13/23 18:30 Blood Culture (Wb) - Port Blood Culture - Preliminary Corynebacterium striatum 01/13/23 19:25 Blood Culture (Wb) - Chest Blood Culture - Preliminary Gram positive jamie 01/13/23 18:30 Urine, Clean Catch Urine Culture - Final Yeast, not Velma albicans 01/15/23 10:35 Nasal Secretion SARS-CoV-2 Antigen (Rapid) - Final 01/13/23 22:29 Mucosa - Nose Respiratory Panel (PCR) - Final Rhythm Strip Rhythm Strip: Sinus Rhythm Rate: 70 Physical Exam Const alert and no apparent distress Constitutional Narrative: Chronically frail and ill-appearing. General Appearance: cooperative HEENT normocephalic and head/scalp atraumatic Eyes PERRL, EOMs intact bilaterally and conjunctivae normal Neck Neck Narrative: Stable tracheostomy site with copious secretions. Chest inspection of chest normal Resp normal respiratory effort Auscultation: rhonchi and diminished lung sounds Cardio regular rate, S1 normal heart sound and S2 normal heart sound Rhythm: abnormal rhythm GI soft to palpation and non-tender Inspection: GI tube present Extremity no clubbing, cyanosis or edema Skin no rashes or lesions noted Neuro CN's II-XII intact bilaterally and no focal motor deficits Psych Mood & Affect: flat affect Charges/Coding Visit Charges Inpatient E&M: 59548 Subs Hosp L2
[2023-01-18 10:00] VITALS: BP 117/82; PULSE 64; RESP 16; TEMP 36.3; O2SAT 94
[2023-01-18] MEDS: Meropenem 1 GM in 0.9% Normal Saline (100mL MB+) 100 ML IV (10:39)
[2023-01-18] MEDS: APIXABAN 2.5 MG TABLET (WCH) GT (11:30)
[2023-01-18] MEDS: Gabapentin 300 MG Capsule GT (11:30)
[2023-01-18] MEDS: Carvedilol 3.125 MG TABLET GT (11:30)
[2023-01-18] MEDS: Amiodarone 200 MG Tablet PO (11:30)
--- NOTE | 2023-01-18 11:46 | CASEMGMT ---
SW let patient and his significant other know that patient was accepted in TCU. SW also notified them that patient will not be able to get his Avastin injection while in TCU. Patient's significant other verbalized understanding. Leann JUAREZ
--- NOTE | 2023-01-18 12:01 | PCM.TXEXTCAR ---
Diet Diet Order/Speech Therapy: 01/13/23 20:45 Diet: Nothing Per Oral Is pt able to select menu?: No Routine Orders/Code Status Routine Lab Work: CBC (weekly) and BMP (weekly) Code Status: Full Code Wound(s) Ming Shins: Wound Type: Abrasion Left Elbow: Wound Type: Abrasion Therapies Weight Bearing: Full weight bearing Physical Therapy: Eval and Treat Occupational Therapy: Eval and Treat Speech Therapy: Eval and Treat Problem/Diagnosis (1) Bacteremia: Status: Acute Code(s): R78.81 - Bacteremia Plan: BCx on 01/13 showed GPR, On vanc and meropenem ID following (2) Pneumonia: Status: Acute Code(s): J18.9 - Pneumonia, unspecified organism Plan: Gram negative with klebsiella and pseudomonas. Vanc and meropenem. Cx showing GNR on 01/14. (3) Acute and chronic respiratory failure: Status: Chronic Code(s): J96.20 - Acute and chronic respiratory failure, unspecified whether with hypoxia or hypercapnia Plan: multifactorial: due to pneumonia, COPD exacerbation, pleural effusions Pulm following BDs, methylpred wean oxygen as able to keep sats 90% or greater Furosemide challenge. (4) Ventricular arrhythmia: Status: Acute Code(s): I49.9 - Cardiac arrhythmia, unspecified Plan: noted VT was on IV amiodarone, since transitioned to PO Echo from 12/13 showed an EF of 35-40% with global hypokinesia Plan Chronic conditions: hypothyroidism-patient is on Synthroid through his G-tube severe chronic protein and caloric malnutrition in the context of acute on chronic disease related to inadequate oral intake and difficulty swallowing as evidenced by a BMI of 18.2, severe muscle/fat wasting in the clavicle, orbital and temporal regions, and unintentional weight loss of approximately 3% in less than a month. Jevity 1.5 240 cc 5 times a day, 100 mL water flush before and after each bolus, nutritional services is participating in his care h/o hypopharygeal cancer: s/p PEG. neuropathy: gabapentin VTE prophylaxis: already on apixaban. Disposition: to SNF (TCU) pending ID's final abx recommendations. Allergies/Procedures Done in Hospital Allergies venom-wasp Allergy (Verified 01/13/23 17:29) Anaphylaxis patient states allergy is to yellow jackdets pseudoephedrine HCl [From Sudafed] Adverse Reaction (Severe, Verified 01/13/23 17:29) Unknown pain Antihistamines - Alkylamine Adverse Reaction (Mild, Verified 01/13/23 17:29) Other PT UNABLE TO URINATE WHEN TAKING ANTIHISTAMINES ROUTINELY Procedures: None Type of Care/Length of Stay Estimated LOS: Convalescent Care Less Than 30 days Type of Care Needed: Skilled Rehab Potential: Fair Prognosis: Poor Additional Orders/Day of Discharge Day of Discharge: 01/18/23 Dietary and Speech Recommendations Dietitian Recommendations/Changes: Pt is to remain NPO with nutrition via PEG only. Continue TF via PEG: Jevity 1.5 Dipesh 240mL bolus 5 times per day to provide 1800 kcal, 76.6 gm protein and 912 mL free water; blends TF with banana and whey protein. Water flush of 100mL before and after each bolus for additional 1000mL water per day. Trend weight as available. Discharge Plan Admission Admit Date/Time: 01/14/23 15:38 Primary Reason for Your Visit: bacteremia. pneumonia Attending Provider: Ki Nichols Primary Care Provider: Alejandro Liu Consulting Providers: Jorge Jasso; Semaj Jorge; Hebert Camarena; Stuart Polo; Roberto Roe; Santos Marino; Dean Renee; Kayleen Callejas [employer]; Gordy Hamilton Discharge Orders/Prescriptions Prescriptions: New meropenem 1 gram Recon Soln 1 g IV Q12 5 Days Qty: 10 0RF Rx Instructions: dx: pneumonia vancomycin 750 mg recon soln 750 mg IV Q24H 5 Days Qty: 5 0RF Rx Instructions: dx; bacteremia sodium chloride 0.9 % (flush) [Normal Saline Flush] Syringe 10 - 40 ml IV UD PRN (Reason: Port access or dressing change) Qty: 0 0RF amiodarone 200 mg Tablet 200 mg PO BID Qty: 0 0RF melatonin 3 mg Tablet 3 mg PO QHS PRN PRN (Reason: Insomnia) Qty: 0 0RF Jevity 1.5 Dipesh 0.06 gram-1.5 kcal/mL Liquid 240 ml G-tube 5X/DAY Qty: 0 0RF Continued guaifenesin 200 mg/5 mL liquid 400 mg PO Q6H PRN (Reason: cough) Qty: 473 6RF omeprazole 20 mg capsule,delayed release(DR/EC) 20 mg PO DAILY prednisolone sodium phosphate 15 mg/5 mL (5 mL) solution 15 mg PO DAILY Qty: 250 4RF Avastin 25 mg/mL Solution 25 mg intravitreal QMONTH midodrine 5 mg Tablet 5 mg feeding tube TID Rx Instructions: do not give last dose of day after 6PM or within 4 hrs of bedtime Eliquis 5 mg Tablet 2.5 mg PO BID 30 Days Qty: 30 0RF carvedilol 3.125 mg Tablet 3.125 mg PO BID 30 Days Qty: 60 0RF furosemide [Lasix] 40 mg tablet 40 mg PO DAILY Qty: 30 0RF levothyroxine 50 mcg tablet See Rx Instructions .ROUTE .COMPLEX Qty: 90 5RF Dose Instruction: TAKE 1 TABLET BY MOUTH EVERY DAY Rx Instructions: TAKE 1 TABLET BY MOUTH EVERY DAY budesonide 0.5 mg/2 mL suspension for nebulization 0.5 mg inhalation BID Qty: 120 6RF ipratropium-albuterol 0.5 mg-3 mg(2.5 mg base)/3 mL solution for nebulization 3 ml inhalation Q4H PRN (Reason: shortness of breath or wheezing) Qty: 180 6RF Robitussin Cough and Cold CF 2.5-5-50 mg/5 mL liquid 15 ml PO Q4H PRN (Reason: cold symptoms) Qty: 118 1RF ondansetron 8 mg tablet,disintegrating 8 mg PO Q8H PRN (Reason: nausea and vomiting) Qty: 30 0RF gabapentin 300 mg capsule 300 mg feeding tube BID Qty: 60 11RF Rx Instructions: Via G-tube. lidocaine-prilocaine 2.5-2.5 % cream 50 g topical ONCE Qty: 30 3RF Discontinued lactose-reduced food with fibr 237 ML liquid 237 ml GT Q4H Referrals / Follow Up: [facility] [Provider Group] - Within 1 Month *[facility] [Provider Group] - Within 1 Month [facility] [Provider Group] - 03/11/23 1:45 pm Alejandro Liu PA [Primary Care Provider] - Within 2 Weeks Disposition Disposition (needs filled in before D/C Order can be placed): Assisted Facility (2) Pneumonia Qualifiers: Pneumonia type: due to methicillin-resistant Staphylococcus aureus (MRSA) Laterality: bilateral Lung location: lower lobe of lung Qualified Code(s): J15.212 - Pneumonia due to Methicillin resistant Staphylococcus aureus (3) Acute and chronic respiratory failure Qualifiers: Respiratory failure complication: hypoxia Qualified Code(s): J96.21 - Acute and chronic respiratory failure with hypoxia
--- NOTE | 2023-01-18 12:07 | PCM.PN.ID ---
Physical Exam Narrative Feeling better, no fever, transfer planned Const alert and no apparent distress Resp Auscultation: diminished lung sounds Cardio regular rate and regular rhythm GI soft to palpation, non-tender and non-distended Skin no rashes or lesions noted ID ID: Route of nutrition/ use of supplements: [] Nutritional Intake: [] IV Site: [] Maxwell Catheter: [] Assessment & Plan Assessment/Plan (1) Acute and chronic respiratory failure with hypoxia: (2) Pneumonia: QUALIFIERS: Pneumonia type: due to methicillin-resistant Staphylococcus aureus (MRSA) Laterality: bilateral Lung location: lower lobe of lung Qualified Code(s): J15.212 - Pneumonia due to Methicillin resistant Staphylococcus aureus (3) Bacteremia: PLAN: 2 of 2 bcx with GPR, one sample identified as corynebacter. Sputum cx with pseudomonas x2 and klebs. Ok for d/c with 5 more days vanc/juan j; wrote rx. Will follow
--- NOTE | 2023-01-18 12:12 | DS.PCM_ITS ---
Providers Date of Admission: 01/14/23 Primary Care Physician: LEÓN Fung Consultations 01/14/23 17:13 Consult: Infectious Disease Routine Consulting Provider: Semaj Jorge Reason for Consult: Bacteremia EMERGENT Consult: No MD Notified: Yes Date Notified: 01/14/23 Time Notified: 17:14 Method of Notification: Verbal 01/15/23 10:49 Consult: P[employer]er And [employer]airer / Pulmonary Medicine Routine Consulting Provider: [facility] Reason for Consult: respiratory failure EMERGENT Consult: No MD Notified: Yes Date Notified: 01/15/23 Time Notified: 10:49 Method of Notification: Verbal Reason For Visit: A-FIB WITH RVR, DEHYDRATION Diagnosis Discharge Diagnosis (1) Bacteremia: Status: Acute Code(s): R78.81 - Bacteremia Plan: BCx on 01/13 showed GPR, On vanc and meropenem for 5 more days ID following (2) Pneumonia: Status: Acute Code(s): J18.9 - Pneumonia, unspecified organism Qualifiers: Pneumonia type: due to methicillin-resistant Staphylococcus aureus (MRSA) Laterality: bilateral Lung location: lower lobe of lung Qualified Code(s): J15.212 - Pneumonia due to Methicillin resistant Staphylococcus aureus Plan: Gram negative with klebsiella and pseudomonas. Vanc and meropenem for 5 more days (3) Acute and chronic respiratory failure: Status: Chronic Code(s): J96.20 - Acute and chronic respiratory failure, unspecified whether with hypoxia or hypercapnia Qualifiers: Respiratory failure complication: hypoxia Qualified Code(s): J96.21 - Acute and chronic respiratory failure with hypoxia Plan: multifactorial: due to pneumonia, COPD exacerbation, pleural effusions Pulm following BDs, methylpred wean oxygen as able to keep sats 90% or greater (4) Ventricular arrhythmia: Status: Acute Code(s): I49.9 - Cardiac arrhythmia, unspecified Plan: noted VT was on IV amiodarone, since transitioned to PO Echo from 12/13 showed an EF of 35-40% with global hypokinesia Follow up with cardiology as outpt. (5) Acute and chronic respiratory failure with hypoxia: Status: Chronic Code(s): J96.21 - Acute and chronic respiratory failure with hypoxia Plan: multifactorial Plan Chronic conditions: * hypothyroidism-patient is on Synthroid through his G-tube * severe chronic protein and caloric malnutrition in the context of acute on chronic disease related to inadequate oral intake and difficulty swallowing as evidenced by a BMI of 18.2, severe muscle/fat wasting in the clavicle, orbital and temporal regions, and unintentional weight loss of approximately 3% in less than a month. Jevity 1.5 240 cc 5 times a day, 100 mL water flush before and after each bolus, nutritional services is participating in his care * h/o hypopharygeal cancer: s/p PEG. * neuropathy: gabapentin VTE prophylaxis: already on apixaban. Disposition: to SNF (TCU) Medications at Discharge Home Medications midodrine 5 mg tablet 5 mg feeding tube TID blood pressure 04/17/22 guaifenesin 200 mg/5 mL oral liquid 400 mg (10 mL) PO Q6H PRN cough #473 mL 06/05/22 levothyroxine 50 mcg tablet See Rx Instructions .Route .COMPLEX thyroid #90 TABLETS 06/22/22 omeprazole 20 mg capsule,delayed release 20 mg PO DAILY reflux 06/25/22 bevacizumab 25 mg/mL intravenous solution (Avastin) 25 mg intravitreal QMONTH 08/10/22 budesonide 0.5 mg/2 mL suspension for nebulization 0.5 mg (2 mL) inhalation BID breathing #120 mL 08/13/22 ipratropium 0.5 mg-albuterol 3 mg (2.5 mg base)/3 mL nebulization soln 3 ml inhalation Q4H PRN shortness of breath or wheezing #180 mL 08/14/22 iuavtzrsigxnz-PS-mseutxmqxha 2.5 mg-5 mg-50 mg/5 mL oral liquid (Robitussin Cough and Cold CF) 15 ml PO Q4H PRN cold symptoms #118 mL 10/05/22 ondansetron 8 mg disintegrating tablet 8 mg PO Q8H PRN nausea and vomiting #30 tabs 11/13/22 gabapentin 300 mg capsule 300 mg feeding tube BID nerve pain #60 caps 11/30/22 lidocaine-prilocaine 2.5 %-2.5 % topical cream 50 g topical ONCE pain #30 grams 11/30/22 prednisolone sodium phosphate 15 mg/5 mL (5 mL) oral solution 15 mg (5 mL) PO DAILY inflammation #250 mL 12/03/22 apixaban 5 mg tablet (Eliquis) 2.5 mg (1/2 x 5 mg) PO BID blood thinner 30 days #30 tabs 12/18/22 carvedilol 3.125 mg tablet 3.125 mg PO BID blood pressure 30 days #60 tabs 12/18/22 furosemide 40 mg tablet (Lasix) 40 mg PO DAILY diuretic #30 tabs 12/18/22 amiodarone 200 mg tablet 200 mg PO BID #0 tabs 01/18/23 lactose-reduced food with fiber 0.06 gram-1.5 kcal/mL oral liquid (Jevity 1.5 Dipesh) 240 ml G-tube 5X/DAY #0 mL 01/18/23 melatonin 3 mg tablet 3 mg PO QHS PRN PRN Insomnia #0 tabs 01/18/23 meropenem 1 gram intravenous solution 1 g IV Q12 5 days #10 ea 01/18/23 sodium chloride 0.9 % (flush) (Normal Saline Flush 0.9 % injection syringe) 10 - 40 ml IV UD PRN Port access or dressing change #0 mL 01/18/23 vancomycin 750 mg intravenous solution 750 mg IV Q24H 5 days #5 ea 01/18/23 Hospital Course Operations None Procedures None Summary of Care Provided Minutes Spent on Discharge: 40 Hospital Course: 77-year-old male with a complicated past medical history presents with shortness of breath fever. Patient presented with acute on chronic hypoxic respiratory failure secondary to pneumonia. Patient also had some SVT that did convert. Patient was placed on amiodarone and then transitioned over to oral. Patient was also noted to have bacteremia as well. Patient was seen in consultation with pulmonary as well as infectious disease. Blood culture showed gram- positive jamie, Corynebacterium. Sputum culture grew out Klebsiella as well as Pseudomonas. Patient will be on 5 more days of vancomycin and meropenem. Initial plan was for the patient to go home but being on the IV antibiotics, the patient and his significant other would prefer him being in a facility to r eceive the antibiotics. Likely, less something changes, the plan will be for him to go home once he has completed the antibiotics. Patient is cachectic, he does have a tracheostomy and PEG tube in place. He will continue with tube feeds with Jevity for 5 times per day. And patient will continue to work on pulmonary toileting techniques that he has been doing chronically. Medical Records Data Medical Nutrition Assessment Dietitian: Malnutrition Criteria Met Start: 10/09/23 15:35 Freq: Status: Active Protocol: Document 01/16/23 13:26 RMA (Rec: 01/16/23 13:26 RMA [id number]) Nutrition Malnutrition Evidence of Malnutrition Exists Yes Malnutrition (severe): Chronic Evidenced By Suboptimal Energy Intake ( Moderate),Weight Loss ( Moderate),Physical Changes ( Severe) Intake Problem Inadequate Oral Intake Etiology related to difficulty swallowing Signs/Symptoms as evidenced by NPO and need for PEG tube feeding support Status Active Problem Clinical Problem Chronic Disease or Condition Related Malnutrition Etiology Severe protein-calorie malnutrition in the context of acute on chronic disease related to inadequate oral intake and difficulty swallowing Signs/Symptoms as evidenced by BMI 18.2, severe muscle/fat wasting in the clavicle, orbital and temporal regions, unintentional weight loss~3% x less than 1 month, NPO and need for PEG tube/nutrition support Status Active Problem Recommendation Dietitian Recommendations/Changes Pt is to remain NPO with nutrition via PEG only. Continue TF via PEG: Jevity 1. 5 Dipesh 240mL bolus 5 times per day to provide 1800 kcal, 76.6 gm protein and 912 mL free water; blends TF with banana and whey protein. Water flush of 100mL before and after each bolus for additional 1000mL water per day. Trend weight as available. Weight / BMI Weight Weight: 57.47 kg Body Mass Index (BMI) 18.1 ABG / Lab / Microbiology Data 01/17/23 05:40 01/18/23 06:30 Laboratory: Laboratory Results - last 24 hr 01/18/23 06:30: Sodium 142, Potassium 4.6, Chloride 108 H, Carbon Dioxide 29.0, Anion Gap 5, BUN 27 H, Creatinine 1.25, Estim Creat Clear Calc 41.51, Est GFR (MDRD) Af Amer 72, Est GFR (MDRD) Non-Af 60, BUN/Creatinine Ratio 21.6 H, Glucose 79, Calcium 9.0 Microbiology: Microbiology 01/14/23 02:45 Sputum, Expectorated/Coughed Gram Stain - Final 01/14/23 02:45 Sputum, Expectorated/Coughed Respiratory Culture - Final Klebsiella pneumoniae sp pneum Pseudomonas aeruginosa Pseudomonas aeruginosa#2 01/13/23 18:30 Blood Culture (Wb) - Port Blood Culture - Preliminary Corynebacterium striatum 01/13/23 19:25 Blood Culture (Wb) - Chest Blood Culture - Preliminary Gram positive jamie 01/13/23 18:30 Urine, Clean Catch Urine Culture - Final Yeast, not Velma albicans 01/15/23 10:35 Nasal Secretion SARS-CoV-2 Antigen (Rapid) - Final 01/13/23 22:29 Mucosa - Nose Respiratory Panel (PCR) - Final D/C Instructions Discharge Diet: - (Jevity 5 times per day) Meaningful Use Info Meaningful Use Diagnoses (Choose all that apply): None applicable Discharge Plan Admission Admit Date/Time: 01/14/23 15:38 Primary Reason for Your Visit: bacteremia. pneumonia Attending Provider: Ki Nichols Primary Care Provider: Alejandro Liu Consulting Providers: Jorge Jasso; Semaj Jorge; Hebert Camarena; Stuart Polo; Roberto Roe; Santos Marino; Dean Renee; Kayleen Callejas NP; Gordy Hamilton Discharge Orders/Prescriptions Prescriptions: New meropenem 1 gram Recon Soln 1 g IV Q12 5 Days Qty: 10 0RF Rx Instructions: dx: pneumonia vancomycin 750 mg recon soln 750 mg IV Q24H 5 Days Qty: 5 0RF Rx Instructions: dx; bacteremia sodium chloride 0.9 % (flush) [Normal Saline Flush] Syringe 10 - 40 ml IV UD PRN (Reason: Port access or dressing change) Qty: 0 0RF amiodarone 200 mg Tablet 200 mg PO BID Qty: 0 0RF melatonin 3 mg Tablet 3 mg PO QHS PRN PRN (Reason: Insomnia) Qty: 0 0RF Jevity 1.5 Dipesh 0.06 gram-1.5 kcal/mL Liquid 240 ml G-tube 5X/DAY Qty: 0 0RF Continued guaifenesin 200 mg/5 mL liquid 400 mg PO Q6H PRN (Reason: cough) Qty: 473 6RF omeprazole 20 mg capsule,delayed release(DR/EC) 20 mg PO DAILY prednisolone sodium phosphate 15 mg/5 mL (5 mL) solution 15 mg PO DAILY Qty: 250 4RF Avastin 25 mg/mL Solution 25 mg intravitreal QMONTH midodrine 5 mg Tablet 5 mg feeding tube TID Rx Instructions: do not give last dose of day after 6PM or within 4 hrs of bedtime Eliquis 5 mg Tablet 2.5 mg PO BID 30 Days Qty: 30 0RF carvedilol 3.125 mg Tablet 3.125 mg PO BID 30 Days Qty: 60 0RF furosemide [Lasix] 40 mg tablet 40 mg PO DAILY Qty: 30 0RF levothyroxine 50 mcg tablet See Rx Instructions .ROUTE .COMPLEX Qty: 90 5RF Dose Instruction: TAKE 1 TABLET BY MOUTH EVERY DAY Rx Instructions: TAKE 1 TABLET BY MOUTH EVERY DAY budesonide 0.5 mg/2 mL suspension for nebulization 0.5 mg inhalation BID Qty: 120 6RF ipratropium-albuterol 0.5 mg-3 mg(2.5 mg base)/3 mL solution for nebulization 3 ml inhalation Q4H PRN (Reason: shortness of breath or wheezing) Qty: 180 6RF Robitussin Cough and Cold CF 2.5-5-50 mg/5 mL liquid 15 ml PO Q4H PRN (Reason: cold symptoms) Qty: 118 1RF ondansetron 8 mg tablet,disintegrating 8 mg PO Q8H PRN (Reason: nausea and vomiting) Qty: 30 0RF gabapentin 300 mg capsule 300 mg feeding tube BID Qty: 60 11RF Rx Instructions: Via G-tube. lidocaine-prilocaine 2.5-2.5 % cream 50 g topical ONCE Qty: 30 3RF Discontinued lactose-reduced food with fibr 237 ML liquid 237 ml GT Q4H Referrals / Follow Up: [facility] [Provider Group] - Within 1 Month *[facility] [Provider Group] - Within 1 Month [facility] [Provider Group] - 03/11/23 1:45 pm Alejandro Liu PA [Primary Care Provider] - Within 2 Weeks Disposition Disposition (needs filled in before D/C Order can be placed): Snf Facility Charges/Coding Visit Charges Inpatient E&M: 25429 Disch Hosp >30min
--- NOTE | 2023-01-18 12:40 | CASEMGMT ---
Plan: Patient will be discharged to [facility] TCU under skilled level of care. Leann JUAREZ
[2023-01-18 12:54] VITALS: BP 117/82; PULSE 64; RESP 16; TEMP 36.3; O2SAT 94
--- NOTE | 2023-01-18 13:17 | NURSING ---
Report called to nurse Valdez for pt to be d/c to TCU.
== END 2023-01-18 14:42 | disposition skilled nursing facility (03) | DRG 177 ==
LOC: ED 19:46 → PCU 20:08
PROVIDERS: Family Medicine; Internal Medicine; Internal Medicine Critical Care Medicine; Admitting Provider Hospitalist; Emergency Provider Emergency Medicine; PCP Physician Assistant
DX: J15.212 Pneumonia due to Methicillin resistant Staphylococcus aureus (principal); E43 Unspecified severe protein-calorie malnutrition; J96.21 Acute and chronic respiratory failure with hypoxia; R78.81 Bacteremia; I50.22 Chronic systolic (congestive) heart failure; C78.00 Secondary malignant neoplasm of unspecified lung; J44.0 Chronic obstructive pulmonary disease with (acute) lower respiratory infection; J44.1 Chronic obstructive pulmonary disease with (acute) exacerbation; J90 Pleural effusion, not elsewhere classified; I47.10 Supraventricular tachycardia, unspecified; Z68.1 Body mass index [BMI] 19.9 or less, adult; I95.9 Hypotension, unspecified; N18.30 Chronic kidney disease, stage 3 unspecified; Z93.0 Tracheostomy status; I48.91 Unspecified atrial fibrillation; Z93.1 Gastrostomy status; E03.9 Hypothyroidism, unspecified; E86.0 Dehydration; K21.9 Gastro-esophageal reflux disease without esophagitis; B95.62 Methicillin resistant Staphylococcus aureus infection as the cause of diseases classified elsewhere; R62.7 Adult failure to thrive; I49.3 Ventricular premature depolarization; Z79.51 Long term (current) use of inhaled steroids; Z79.01 Long term (current) use of anticoagulants; Z87.891 Personal history of nicotine dependence; Z80.0 Family history of malignant neoplasm of digestive organs; Z59.12 Inadequate housing utilities; R63.4 Abnormal weight loss; Z85.21 Personal history of malignant neoplasm of larynx; G89.29 Other chronic pain
CPT/HCPCS: 31720; 36415; 71045; 80048; 80053; 80202; 81001; 83605; 83735; 83880; 85025; 85027; 85610; 85730; 87040; 87070; 87077; 87086; 87088; 87184; 87186; 87205; 87633; 87811; 93005; 94640; 94762; 97110; 97162; 97166; 97535; 97802; 99285; J2185; J7030; J7040; J7050; J7120; A4216; J0295; J1940

== ENCOUNTER 2023-01-18 14:50 | Inpatient (IN) | payer MEDICARE, OTHER, SELFPAY ==
[2023-01-18 15:21] VITALS: BP 119/64; PULSE 68; RESP 16; TEMP 36.6; O2SAT 91; BMI 19.5
--- NOTE | 2023-01-18 15:54 | PCM.RX.CS ---
Consult Antibiotic Management Pharmacy has been consulted to manage selected antiobiotic: Vancomycin Type of Intervention Type of Consult: New start (FROM INPATIENT) Suspected Infection Suspected Infection: Bacteremia Prior Doses of Antibiotics Prior Doses of Antibiotics Received/Current Regimen: Meropenem 1 g Q12H and vancomycin 750 mg Q24H Dosing Weight Weight used for dosin kg Estimated Creatinine Clearance Estimated Creatinine Clearance: ~41 Goal Trough Goal Trough: 15-20 mcg/mL Pharmacy Plan for Drug Dosing Pharmacy Plan for Drug Dosing: The patient was being managed on vancomycin 750 mg PO Q24H, trough tonight as was scheduled previously. Pharmacy Service will continue to monitor and adjust dosing as required. Follow-Up Labs Follow-Up Labs: Trough: Vancomycin Date/Time Labs Ordered Labs to be done on [date and time ordered]: 01/18/23 @ 2030
--- NOTE | 2023-01-18 16:35 | NURSING ---
In with patient and going through admission questions. Patient became nauseated and started throwing up, fluid coming out of his mouth and his trach. states that this happens some and this is how he gets aspiration pneumonia, but reports he hasn't been throwing up like this in the hospital. Respiratory called, in room to assess patient.
--- NOTE | 2023-01-18 19:10 | NURSING ---
split gauze applied to trach site after cleaning area, new inner cannula inserted. pt sat 91% on 6liters trach collar, pt denies dyspnea. at bedside. pt noted to have brownish colored thick sputum when coughing. will update assistant shift supervisor in report.
--- NOTE | 2023-01-18 19:50 | NURSING ---
Attempted to discuss code status with patient and at bedside, patient and unable to decide on code status at this time. Patient and spouse notified that code status will be full code until patient able to decide. Patient and spouse agreeable. Respiratory in room at bedside. No distress observed at this time. Call light in reach. Spouse remains at bedside.
[2023-01-18 19:56] VITALS: PULSE 77; RESP 20; O2SAT 94
[2023-01-18] MEDS: Ipratropium/Albuterol Sulfate 3 ML AMPUL.NEB INHALATION (19:56)
[2023-01-18 20:00] VITALS: PULSE 89; RESP 18; O2SAT 92
--- NOTE | 2023-01-18 20:54 | HP.PCM_ITS ---
HPI - General General Date of Admission: 01/18/23 Date of Service: 01/18/23 Chief Complaint: Here for rehabilitation, strengthening, intravenous antibiotics. 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 Persistent aspiration pneumonia. Pulsox 54% on 4 liters trach mask at home, vomiting for 3 days. Improved in ED. IV fluids for dehydration, Chest X-ray negative. 01/13/2023 Admit to Hospital. PT/OT for SNF. IV fluids for dehydration. Coreg 3.125mg bid, Midodrine 5mg tid, Lopressor 5mg iv q6h prn atrial fibrillation. Chronic respiratory failure secondary to aspiration versus mucous plug. 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 01/14/2023 IV fluids for hypotension, Increase Midodrine for hypotension. Vancomycin per ID for gram positive rods in blood cultures x 2. 01/15/2023 Dr. Jorge Vancomycin, Unasyn for 2 out of 2 blood culture bottle GPR, Sputum culture pending. 10 liters oxygen, consider pulmonary consult, check covid-19. 01/16/2023 Sputum from trach. Vancomycin, Zosyn GPR bacteremia, pneumonia. Wean oxygen to pulsox 90%. IV to PO Amiodarone for atrial fibrillation. 12/13/2022 Echo EF 35-40%, global hypokinesia. 01/17/2023 Mucous production. Vancomycin, Meropenem for GPR in blood, GNR sputum for bacteremia/pneumonia. 01/18/2023 Feels well. Vancomycin, Meropenem for Klebsiella, Pseudomonas pneumonia. 01/18/2023 Dr. Jorge MRSA pneumonia, blood culture 2/2 corynebacter, Sputum culture pseudomonas x 2, Klebsiella. Vancomycin, Meropenem IV for 5 more days. 01/18/2023 Admit to TCU with debility, here for rehabilitation, strengthening, intravenous antibiotics prior to discharge home with . Upon arrival, resident vomited thru trach, order Chest X-ray in AM to evaluate for worsening aspiration pneumonia. [facility] Medical History (Updated 01/18/23 @ 21:[address] Darshan Laboy MD) Agranulocytosis secondary to cancer chemotherapy Ambulates with cane Antineoplastic chemotherapy induced anemia Cancer CKD (chronic kidney disease), stage III Dietary restriction Dysphagia Former smoker Indwelling urethral catheter present half-way (current) use of systemic steroids Long-term use of high-risk medication Neuropathy On home oxygen therapy Pneumonia Pneumonitis 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 Shortness of breath on exertion Thrush, oral Tracheostomy in place tracheotomy and laryngeal biopsy Wears glasses Home Medications midodrine 5 mg tablet 5 mg feeding tube TID blood pressure 04/17/22 [History Last Taken 04/20/22 06:00] guaifenesin 200 mg/5 mL oral liquid 400 mg (10 mL) PO Q6H PRN cough #473 mL 06/05/22 [Rx Last Taken Unknown] levothyroxine 50 mcg tablet See Rx Instructions .Route .COMPLEX thyroid #90 TABLETS 06/22/22 [Rx Last Taken Unknown] omeprazole 20 mg capsule,delayed release 20 mg PO DAILY reflux 06/25/22 [History Last Taken Unknown] bevacizumab 25 mg/mL intravenous solution (Avastin) 25 mg intravitreal QMONTH cancer 08/10/22 [History Last Taken Unknown] budesonide 0.5 mg/2 mL suspension for nebulization 0.5 mg (2 mL) inhalation BID breathing #120 mL 08/13/22 [Rx Last Taken Unknown] ipratropium 0.5 mg-albuterol 3 mg (2.5 mg base)/3 mL nebulization soln 3 ml inhalation Q4H PRN shortness of breath or wheezing #180 mL 08/14/22 [Rx Last Taken Unknown] chrpgujnvrhoo-OL-tosfzzigtzg 2.5 mg-5 mg-50 mg/5 mL oral liquid (Robitussin Cough and Cold CF) 15 ml PO Q4H PRN cold symptoms #118 mL 10/05/22 [Rx Last Taken Unknown] ondansetron 8 mg disintegrating tablet 8 mg PO Q8H PRN nausea and vomiting #30 tabs 11/13/22 [Rx Last Taken Unknown] gabapentin 300 mg capsule 300 mg feeding tube BID nerve pain #60 caps 11/30/22 [Rx Last Taken Unknown] lidocaine-prilocaine 2.5 %-2.5 % topical cream 50 g topical ONCE pain #30 grams 11/30/22 [Rx Last Taken Unknown] prednisolone sodium phosphate 15 mg/5 mL (5 mL) oral solution 15 mg (5 mL) PO DAILY inflammation #250 mL 12/03/22 [Rx Last Taken Unknown] apixaban 5 mg tablet (Eliquis) 2.5 mg (1/2 x 5 mg) PO BID blood thinner 30 days #30 tabs 12/18/22 [Rx Last Taken Unknown] carvedilol 3.125 mg tablet 3.125 mg PO BID blood pressure 30 days #60 tabs 12/18/22 [Rx Last Taken Unknown] furosemide 40 mg tablet (Lasix) 40 mg PO DAILY diuretic #30 tabs 12/18/22 [Rx Last Taken Unknown] amiodarone 200 mg tablet 200 mg PO BID heart #0 tabs 01/18/23 [Rx Last Taken Unknown] lactose-reduced food with fiber 0.06 gram-1.5 kcal/mL oral liquid (Jevity 1.5 Dipesh) 240 ml G-tube 5X/DAY nutrition 01/18/23 [History Last Taken Unknown] melatonin 3 mg tablet 3 mg PO QHS PRN PRN Insomnia #0 tabs 01/18/23 [Rx Last Taken Unknown] meropenem 1 gram intravenous solution 1 g IV Q12 ATB 5 days #10 ea 01/18/23 [Rx Last Taken Unknown] sodium chloride 0.9 % (flush) (Normal Saline Flush 0.9 % injection syringe) 10 - 40 ml IV UD PRN Port access or dressing change #0 mL 01/18/23 [Rx Last Taken Unknown] vancomycin 750 mg intravenous solution 750 mg IV Q24H antibiotic 5 days #5 ea 01/18/23 [Rx Last Taken Unknown] Allergy/AdvReac Type Severity Reaction Status Date / Time venom-wasp Allergy Anaphylaxis Verified 01/13/23 17:29 pseudoephedrine HCl AdvReac Severe Unknown Verified 01/13/23 17:29 [From Sudafed] Antihistamines - Alkylamine AdvReac Mild Other Verified 01/13/23 17:29 Family History Father Colon cancer Hypertension Mother Hypertension Surgical History (Updated 01/18/23 @ 21:[address] Darshan Laboy MD) History of gastrostomy History of surgery History of tracheostomy Hx of tonsillectomy S/P percutaneous endoscopic gastrostomy (PEG) tube placement S/P TURP Social History household members: spouse Smoking Status: Former smoker quit date: 04/08/17 pack-years: 55 alcohol intake: never substance use type: does not use ROS Constitutional Constitutional: Denies chills, fever(s) or weight gain ENT HEENT: Denies headache(s), nasal congestion or nasal discharge Cardiovascular Cardiovascular: Denies chest pain or palpitations Respiratory/Chest Respiratory/Chest: Denies cough, excessive phlegm production or shortness of breath with exertion Gastrointestinal Gastrointestinal: Denies abdominal pain, nausea or vomiting Genitourinary Genitourinary: Denies dysuria Musculoskeletal Musculoskeletal: Denies joint pain or joint swelling Integumentary Integumentary: Denies rash or wounds Neurologic Neurologic: Denies focal weakness, numbness or tingling Psychiatric Psychiatric: Denies anxiety, auditory hallucinations, depression, homicidal ideation or suicidal ideation Vital Signs Vital Signs Vital Signs: 01/18/23 15:21 01/18/23 19:56 Temperature 97.8 F Temperature Source Oral Pulse Rate 68 77 Respiratory Rate 16 20 H Respiratory Pattern Normal Blood Pressure 119/64 Blood Pressure Mean 82 Blood Pressure Source Monitor Blood Pressure Position Semi-Fowlers Blood Pressure Location Right Arm Pulse Ox 91 94 Oxygen Delivery Method Trach Collar Trach Collar Oxygen Flow Rate (L/min) 2 8 Fraction of Inspired Oxygen (FIO2) 35 Weight Weight: 62.006 kg Body Mass Index (BMI) 19.5 Physical Exam Const alert General Appearance: cooperative HEENT normocephalic Eyes PERRL and EOMs intact bilaterally Neck supple, no JVD and no carotid bruits Neck Narrative: Tracheostomy. Chest Chest Narrative: Left upper chest port. Resp normal respiratory effort, normal air movement and clear to auscultation bilaterally Cardio regular rate and regular rhythm GI normal to inspection, nondistended, normoactive bowel sounds, non-tender and non-distended GI Narrative: PEG. Extremity normal capillary refill General Extremity: Negative for edema Skin no rashes or lesions noted General Skin Exam: no breakdown Psych affect normal Appearance: appropriate Assessment & Plan Assessment/Plan (1) Debility: (2) Acute and chronic respiratory failure: QUALIFIERS: Respiratory failure complication: hypoxia Qualified Code(s): J96.21 - Acute and chronic respiratory failure with hypoxia (3) Aspiration pneumonia: QUALIFIERS: Aspiration pneumonia type: due to gastric secretions Laterality: left Lung location: lower lobe of lung Qualified Code(s): J69.0 - Pneumonitis due to inhalation of food and vomit (4) Atrial fibrillation: (5) Bacteremia: (6) History of laryngeal cancer: (7) History of tracheostomy: (8) History of gastrostomy: (9) Orthostatic hypotension: (10) Hypothyroidism: QUALIFIERS: Hypothyroidism type: due to medication Qualified Code(s): E03.2 - Hypothyroidism due to medicaments and other exogenous substances (11) GERD (gastroesophageal reflux disease): (12) Neuropathic pain: (13) COPD (chronic obstructive pulmonary disease): QUALIFIERS: COPD type: unspecified COPD Qualified Code(s): J44.9 - Chronic obstructive pulmonary disease, unspecified PLAN: Plan 77 year old male with below past medical history hospitalized for aspiration pneumonia, bacteremia, complicated by acute on chronic respiratory failure, new onset atrial fibrillation, admitted to TCU with debility, here for rehabilitation, strengthening, intravenous antibiotics, prior to discharge home with . * Debility - PT/OT. * Dysphagia - ST. * Pain - monitor. * Bowel - Not necessary, TF gives him chronic diarrhea. * Adult immunization - Administer pneumonia vaccine, covid19 vaccine, flu vaccine as appropriate. * DVT prophylaxis - on Eliquis. * Atrial fibrillation - Coreg 3.125mg bid, Amiodarone 200mg bid, Eliquis 2.5mg bid. * COPD - Budesonide 0.5mg bid, Duoneb 3ml q4h prn. * HFrEF - Coreg 3.125mg bid, Furosemide 40mg daily. * Neuropathic pain - Gabapentin 300mg bid. * Cough - Robitussin 20ml q6 prn. * Nutrition - Jevity 1.5m 240ml 5x/day. * Hypothyroidism - Levothyroxine 50mcg daily. * Insomnia - Melatonin 3mg qhs prn. * Aspiration pneumonia/bacteremia - Meropenem 1gm iv q12h, Vancomycin 750mg iv q24 thru 01/23/2023. * Orthostatic hypotension - Midodrine 5mg tid. * Nausea - Zofran 4mg iv q6h prn. * GERD - Pantoprazole 40mg iv q24h.
[2023-01-18 21:18] LABS: Vancomycin, Trough Level 18.9 ug/mL (5.0-15.0)
--- NOTE | 2023-01-18 21:39 | NURSING ---
Per respiratory therapist: patient currently at 8L cool aerosol at 35%, trach collar secure, inner cannula changed by respiratory, patient expectorating blood at times, not new per patient and with suctioning, if any questions call RT
[2023-01-18 21:45] VITALS: BP 100/60; PULSE 86; RESP 18; O2SAT 94
[2023-01-18] MEDS: Vancomycin HCl 750 MG in 0.9% Normal Saline (250mL Bag) 250 ML 250 MG IV (21:46)
[2023-01-18] MEDS: 0.9% Normal Saline (250mL Bag) 250 ML 15 ML IV (21:46)
[2023-01-18] MEDS: Vancomycin Trough/Random Due 1 LAB MC (21:46)
[2023-01-18] MEDS: 0.9% Saline Lock 10 ML Syringe IV ×2 (21:46→23:28)
[2023-01-18] MEDS: Gabapentin 300 MG Capsule GT (22:27)
[2023-01-18] MEDS: APIXABAN 2.5 MG TABLET (WCH) PO (22:27)
[2023-01-18] MEDS: Amiodarone 200 MG Tablet PO (22:28)
[2023-01-18] MEDS: Carvedilol 3.125 MG TABLET PO (22:28)
--- NOTE | 2023-01-18 23:21 | PCM.RX.CS ---
Consult Antibiotic Management Pharmacy has been consulted to manage selected antiobiotic: Vancomycin Type of Intervention Type of Consult: Follow-up Suspected Infection Suspected Infection: Bacteremia Labs Labs: Vancomycin Trough 18.9 ug/mL (5.0-15.0) H 01/18/23 20:29 Dosing Weight Weight used for dosin kg Estimated Creatinine Clearance Estimated Creatinine Clearance: 42 Goal Trough Goal Trough: 15-20 mcg/mL Pharmacy Plan for Drug Dosing Pharmacy Plan for Drug Dosing: Vancomycin trough level of 18.9, drawn 24hrs post-dose, was within the target range of 15-20. Will continue dosing at 750mg q24h, and re-draw a trough level in two days. Pharmacy Service will continue to monitor and adjust dosing as required. Follow-Up Labs Follow-Up Labs: Trough: Vancomycin Date/Time Labs Ordered Labs to be done on [date and time ordered]: 01/20/23 @2030
[2023-01-18] MEDS: Meropenem 1 GM in 0.9% Normal Saline (100mL MB+) 100 ML IV (23:28)
[2023-01-19] VITALS (7 sets, daily range): BP systolic 106; BP diastolic 72; PULSE 83–84; RESP 18–20; TEMP 37; O2SAT 86–95
[2023-01-19] MEDS: 0.9% Saline Lock 10 ML Syringe IV ×3 (04:11→17:11)
[2023-01-19] MEDS: Levothyroxine 50 MCG Tablet GT (05:08)
[2023-01-19] MEDS: Jevity 1.5. 1,000 ML Bottle 240 ML GT ×4 (06:33→23:29)
--- NOTE | 2023-01-19 07:05 | NURSING ---
significant other (Christiane) contacted and notified that protein powder needs to be in original container to be administered as ordered. Christiane notified that current container that she provided is not able to be utilized as it is not labeled. Chrisitane verbalizes understanding and states will provide original container later this date.
--- NOTE | 2023-01-19 08:17 | RAD_ITS ---
HISTORY: vomited/aspiration. TECHNIQUE: XR Chest 2 Views. COMPARISON: 01/15/2023. FINDINGS: LINES/TUBES: Tracheostomy and left chest wall port again seen. Previous gastrostomy tube in the left upper quadrant. CARDIOMEDIASTINAL BORDERS: Stable. LUNGS: Positioning limits evaluation of the lung bases. Mildly decreased bibasilar opacities. PLEURA: Mild pleural effusions again seen. RAD/Chest PA and Lateral IMPRESSION: Persistent mild bilateral pleural effusions with mildly decreased bibasilar pneumonia or pneumonitis. Electronically Signed: Eva Pena MD at 14:54 EDT ,
[2023-01-19 10:44] LABS: Anion Gap 5 (5-15); BUN 24 mg/dL (7-18); BUN/Creat Ratio 16.1 RATIO (10-20); Chloride 106 mmol/L (98-107); Creatinine, Serum 1.49 mg/dL (0.70-1.30); EST Glomerular Filtration Rate 49 mL/min (>60); Est Glom Filt Rate - Afr Amer 59 mL/min (>60); Estimated Creatinine Clearance 37.57 ml/min; Glucose 90 mg/dL (74-106); Potassium 4.1 mmol/L (3.5-5.1); Sodium Level 141 mmol/L (136-145)
[2023-01-19] MEDS: Pantoprazole Sodium 40 MG in 0.9% Normal Saline (100mL MB+) 100 ML 330 MG IV (11:04)
[2023-01-19] MEDS: Carvedilol 3.125 MG TABLET PO ×2 (11:11→23:27)
[2023-01-19] MEDS: Gabapentin 300 MG Capsule GT ×2 (11:11→23:25)
[2023-01-19] MEDS: Amiodarone 200 MG Tablet PO ×2 (11:11→23:27)
[2023-01-19] MEDS: Midodrine HCl 5 MG Tablet GT ×2 (11:12→17:09)
[2023-01-19] MEDS: APIXABAN 2.5 MG TABLET (WCH) PO ×2 (11:12→23:27)
[2023-01-19] MEDS: Meropenem 1 GM in 0.9% Normal Saline (100mL MB+) 100 ML IV ×2 (11:16→22:47)
[2023-01-19] MEDS: Ipratropium/Albuterol Sulfate 3 ML AMPUL.NEB INHALATION ×2 (11:50→19:45)
[2023-01-19] MEDS: Budesonide Respules 0.5 MG/2 ML AMPUL.NEB. INHALATION ×2 (11:54→19:45)
[2023-01-19] MEDS: Menthol/Lanolin/Calamine/Znox 113 GM Tube 1 APPLIC TOPICAL ×2 (13:25→23:24)
[2023-01-19] MEDS: Furosemide 40 MG Tablet PO (13:25)
--- NOTE | 2023-01-19 13:30 | NURSING ---
Pt and family updated on positive covid pt.
[2023-01-19] MEDS: Vancomycin HCl 750 MG in 0.9% Normal Saline (250mL Bag) 250 ML 250 MG IV (20:55)
--- NOTE | 2023-01-19 21:39 | CPS ---
water bottle changed
[2023-01-20] MEDS: Levothyroxine 50 MCG Tablet GT (05:37)
[2023-01-20 06:30] VITALS: BP 100/45
[2023-01-20 06:33] LABS: Hematocrit 31.2 % (40-54); Hemoglobin 9.4 g/dL (13.0-16.5); Mean Corp Hgb Conc 30.1 g/dL (32-36); Mean Corpuscular Hgb 30.5 pg (27.0-32.0); Mean Corpuscular Volume 101.3 fL (80-94); Mean Platelet Vol. 11.2 fl (6.2-12.0); POSITIVE COUNT YES; POSITIVE MORPHOLOGY YES; Platelet Count 253 K/mm3 (150-450); RBC Distribution Width CV 16.8 % (11.6-14.6); RBC Distribution Width SD 61.1 fl (35.1-43.9); Red Blood Count 3.08 M/mm3 (4.6-6.2); White Blood Count 4.7 K/mm3 (4.4-11.0)
[2023-01-20] MEDS: Midodrine HCl 5 MG Tablet GT ×3 (06:36→16:10)
[2023-01-20] MEDS: Jevity 1.5. 1,000 ML Bottle 240 ML GT ×4 (06:36→22:47)
[2023-01-20 06:59] LABS: Differential Indicated MANUAL DIFF
[2023-01-20 07:10] VITALS: PULSE 74; RESP 16; O2SAT 91
[2023-01-20] MEDS: Budesonide Respules 0.5 MG/2 ML AMPUL.NEB. INHALATION ×2 (07:10→19:50)
[2023-01-20] MEDS: 0.9% Saline Lock 10 ML Syringe IV ×2 (09:48→22:47)
[2023-01-20] MEDS: Pantoprazole Sodium 40 MG in 0.9% Normal Saline (100mL MB+) 100 ML 330 MG IV (09:48)
[2023-01-20] MEDS: Menthol/Lanolin/Calamine/Znox 113 GM Tube 1 APPLIC TOPICAL ×2 (09:54→22:47)
[2023-01-20] MEDS: Furosemide 40 MG Tablet PO (09:56)
[2023-01-20] MEDS: APIXABAN 2.5 MG TABLET (WCH) PO ×2 (09:56→22:47)
[2023-01-20] MEDS: Carvedilol 3.125 MG TABLET PO (09:56)
[2023-01-20] MEDS: Amiodarone 200 MG Tablet PO ×2 (09:56→22:46)
[2023-01-20] MEDS: Gabapentin 300 MG Capsule GT ×2 (10:04→22:46)
[2023-01-20] MEDS: 0.9% Normal Saline (1000mL) 1,000 ML 999 ML IV (10:21)
[2023-01-20] MEDS: Meropenem 1 GM in 0.9% Normal Saline (100mL MB+) 100 ML IV ×2 (10:26→22:53)
[2023-01-20 11:31] LABS: Lymphocyte 26 % (19-41); Metamyelocyte 1 % (0-1); Monocyte 5 % (0-10); Myelocyte 3 % (0-0); Neutrophil-Band 7 % (0-5); Neutrophil-Segmented 58 % (47-70); Total Cells Counted 100 (MANUAL DIFF)
[2023-01-20 11:32] LABS: Platelet Estimate ADEQUATE (ADEQ); Red Cell Morphology NORM C+C NORMAL (NORM C&C)
[2023-01-20 11:33] LABS: Absolute Lymphocyte Count 1.22 X10^3/uL (0.83-4.51); Absolute Neutrophil Count 3.1 X10^3/uL (2.0-7.7)
[2023-01-20 14:58] VITALS: BP 93/61; PULSE 79; RESP 16; TEMP 37.2; O2SAT 94
[2023-01-20] MEDS: Ipratropium/Albuterol Sulfate 3 ML AMPUL.NEB INHALATION (19:49)
[2023-01-20 19:50] VITALS: PULSE 80; RESP 18; O2SAT 94
--- NOTE | 2023-01-20 20:35 | NURSING ---
Spoke w/ Dr. Laboy via phone. Updated pt's tongue is has a white, thick coating. New order received and read back for Nystatin 5 ml po 4 x/day x 10 days- staff to use swabs to distribute medication on tongue as pt is NPO.
[2023-01-20 21:11] LABS: Vancomycin, Trough Level 25.1 ug/mL (5.0-15.0)
--- NOTE | 2023-01-20 22:06 | PCM.RX.CS ---
Consult Antibiotic Management Pharmacy has been consulted to manage selected antiobiotic: Vancomycin Type of Intervention Type of Consult: Follow-up Suspected Infection Suspected Infection: Bacteremia Labs Labs: Sodium 141 mmol/L (136-145) 01/19/23 09:26 Potassium 4.1 mmol/L (3.5-5.1) 01/19/23 09:26 Chloride 106 mmol/L (98-107) 01/19/23 09:26 Carbon Dioxide 30.0 mmol/L (21.0-32.0) 01/19/23 09:26 Anion Gap 5 (5-15) 01/19/23 09:26 BUN 24 mg/dL (7-18) H 01/19/23 09:26 Creatinine 1.49 mg/dL (0.70-1.30) H 01/19/23 09:26 Est GFR (MDRD) Af Amer 59 mL/min (>60) L 01/19/23 09:26 Est GFR (MDRD) Non-Af 49 mL/min (>60) L 01/19/23 09:26 BUN/Creatinine Ratio 16.1 RATIO (10-20) 01/19/23 09:26 Glucose 90 mg/dL (74-106) 01/19/23 09:26 Vancomycin Trough 25.1 ug/mL (5.0-15.0) H 01/20/23 20:29 Microbiology Microbiology: Microbiology 01/19/23 06:28 Nasal Secretion SARS-CoV-2 Antigen (Rapid) - Final Dosing Weight Weight used for dosin kg Estimated Creatinine Clearance Estimated Creatinine Clearance: 38 Pharmacy Plan for Drug Dosing Pharmacy Plan for Drug Dosing: Vancomycin trough level was high at 25.1. This was drawn 23.5hrs post-dose. Partly understandable with increase in SCr (1.25 to 1.49). Will stop current dosing and have a random vano level taken in the morning. Further dosing will be determined from that result. Pharmacy Service will continue to monitor and adjust dosing as required. Follow-Up Labs Follow-Up Labs: Trough: Vancomycin (random) Date/Time Labs Ordered Labs to be done on [date and time ordered]: 01/21/23 @0830
[2023-01-20] MEDS: NYSTATIN 500,000 UNIT/5 ML UDC 500000 UNIT PO (22:46)
[2023-01-20 22:55] VITALS: BP 87/57; PULSE 91
[2023-01-21] VITALS (8 sets, daily range): BP systolic 87–118; BP diastolic 47–69; PULSE 78–99; RESP 16–24; TEMP 36.8; O2SAT 90–98
--- NOTE | 2023-01-21 04:40 | NURSING ---
Left chest mediport deaccessed per this nurse. Pt tolerated well. Santos needle and extension tubing disposed of in sharps container in room. Using sterile technique, site cleansed w/ chloraprep and allowed to dry, accessed using 3/4 santos needle, flushes well, blood return present w/ second 10 ml syringe of NS, secured w/ opsite, and curos cap applied. Pt tolerated well.
--- NOTE | 2023-01-21 04:48 | NURSING ---
Dressing change again this shift to skin tear near left lateral elbow. Dressing w/ lg amount of serous drainage. When surrounding edematous tissue palpated thin, clear fluid drains from site. ABD placed, wrapped w/ kerlix, and secured w/ tape.
[2023-01-21] MEDS: NYSTATIN 500,000 UNIT/5 ML UDC 500000 UNIT PO ×4 (05:34→22:23)
[2023-01-21] MEDS: Levothyroxine 50 MCG Tablet GT (05:34)
[2023-01-21] MEDS: 0.9% Normal Saline 1,000 ML 999 ML IV (05:44)
[2023-01-21] MEDS: 0.9% Saline Lock 10 ML Syringe IV ×5 (05:46→22:10)
[2023-01-21] MEDS: Ipratropium/Albuterol Sulfate 3 ML AMPUL.NEB INHALATION ×2 (06:25→18:50)
[2023-01-21] MEDS: Budesonide Respules 0.5 MG/2 ML AMPUL.NEB. INHALATION ×2 (06:25→18:50)
[2023-01-21] MEDS: Jevity 1.5. 1,000 ML Bottle 240 ML GT ×2 (06:34→10:06)
[2023-01-21] MEDS: Midodrine HCl 5 MG Tablet GT ×3 (06:34→16:54)
--- NOTE | 2023-01-21 08:11 | PCM.PN.DRR ---
Documented by User: Randall Massey 01/21/23 09:50 TCU RX Drug Regimen Review Subjective/Objective Subjective/Objective: Subjective: 77 year old male with below past medical history hospitalized for aspiration pneumonia, bacteremia, complicated by acute on chronic respiratory failure, new onset atrial fibrillation, admitted to TCU with debility, here for rehabilitation, strengthening, intravenous antibiotics, prior to discharge home with . Objective: Allergies venom-wasp Allergy (Verified 01/13/23 17:29) Anaphylaxis patient states allergy is to yellow jackdets pseudoephedrine HCl [From [employer]] Adverse Reaction (Severe, Verified 01/13/23 17:29) Unknown pain Antihistamines - Alkylamine Adverse Reaction (Mild, Verified 01/13/23 17:29) Other PT UNABLE TO URINATE WHEN TAKING ANTIHISTAMINES ROUTINELY Current Medications Generic Name Dose Route Start Last Admin Trade Name Freq PRN Reason Stop Dose Admin Albuterol/Ipratropium 3 ml 01/18/23 15:22 01/20/23 19:49 Ipratropium/Albuterol Sulfate 3 Ml Ampul.Neb INHALATION 3 ml Q4H PRN Administration shortness of breath or wheezing Amiodarone HCl 200 mg 01/18/23 22:00 01/20/23 22:46 Amiodarone 200 Mg Tablet PO 200 mg BID CEASAR Administration Apixaban 2.5 mg 01/18/23 22:00 01/20/23 22:47 Apixaban 2.5 Mg Tablet (Wch) PO 2.5 mg BID CEASAR Administration Budesonide 0.5 mg 01/19/23 06:00 01/20/23 19:50 Budesonide Respules 0.5 Mg/2 Ml Ampul.Neb. INHALATION 0.5 mg BID.RT CEASAR Administration Calamine/Phenol 1 applic 01/19/23 10:00 01/20/23 22:47 Menthol/Lanolin/Calamine/Znox 113 Gm Tube TOPICAL 1 applic BID CEASAR Administration Protocol Carvedilol 3.125 mg 01/18/23 22:00 01/20/23 22:46 Carvedilol 3.125 Mg Tablet PO Not Given BID CEASAR Protocol Enteral Nutritional Formula 240 ml 01/18/23 18:00 01/21/23 06:34 Jevity 1.5. 1,000 Ml Bottle GT 240 ml 5X/DAY CEASAR Administration Furosemide 40 mg 01/19/23 10:00 01/20/23 09:56 Furosemide 40 Mg Tablet PO 40 mg DAILY CEASAR Administration Protocol Gabapentin 300 mg 01/18/23 22:00 01/20/23 22:46 Gabapentin 300 Mg Capsule GT 300 mg BID CEASAR Administration Guaifenesin 20 ml 01/18/23 15:40 Guaifenesin 10 Ml Udc (200mg/10ml) PO Q6H PRN cough Heparin Sodium (Beef Lung) 50 units 01/18/23 15:46 Heparin Pf Lock 10 Units/Ml 50 Units/5 Ml Syringe IV UD PRN Port-a-Cath (VAD)Heparin Flush Meropenem 1 gm/ Sodium 120 mls @ 33 mls/hr 01/18/23 22:00 01/21/23 04:43 Chloride IV 01/26/23 22:01 Infused Q12 CEASAR Infusion Sodium Chloride 250 mls @ 15 mls/hr 01/18/23 15:46 01/19/23 11:47 IV Infused .[id number] PRN Infusion Additional IVPB Infusion Sodium Chloride 250 mls @ 15 mls/hr 01/18/23 15:46 IV .[id number] PRN Saline Flush Pantoprazole Sodium 40 mg/ 110 mls @ 330 mls/hr 01/19/23 10:00 01/20/23 10:08 Sodium Chloride IV Infused Q24 CEASAR Infusion Sodium Chloride 1,000 mls @ 999 mls/hr 01/21/23 06:00 01/21/23 06:45 IV Infused MoFr CEASAR Infusion Levothyroxine Sodium 50 mcg 01/19/23 06:00 01/21/23 05:34 Levothyroxine 50 Mcg Tablet GT 50 mcg DAILY@0600 CEASAR Administration Melatonin 3 mg 01/18/23 15:22 Melatonin 3 Mg Tablet PO QHS PRN PRN Insomnia Midodrine 5 mg 01/19/23 07:45 01/21/23 06:34 Midodrine Hcl 5 Mg Tablet GT 5 mg TIDCM CEASAR Administration Nystatin 500,000 unit 01/20/23 22:00 01/21/23 05:34 Nystatin 500,000 Unit/5 Ml Udc PO 01/30/23 22:01 500,000 unit 4X/DAY CEASAR Administration Ondansetron HCl 4 mg 01/18/23 17:04 Ondansetron 4 Mg/2 Ml Vial IV Q6H PRN PRN NAUSEA/VOMITING Sodium Chloride 10 - 40 ml 01/18/23 15:37 01/21/23 05:46 0.9% Saline Lock 10 Ml Syringe IV 10 ml UD PRN Administration Port access or dressing change Sodium Chloride 10 - 40 ml 01/18/23 15:46 0.9 % Nacl (Sterile) Posiflush 10 Ml IV UD PRN Port access or dressing change Sodium Chloride 10 - 40 ml 01/18/23 15:46 0.9% Saline Lock 10 Ml Syringe IV UD PRN Port-a-Cath (VAD) Flush Tuberculin PPD 0.1 ml 01/26/23 10:00 Tuberculin,Purif.Prot.Deriv. 50 Tu/Ml Vial ID 01/26/23 10:01 X1 ONE Vancomycin Protocol 1 lab 01/21/23 06:30 Vancomycin Trough/Random Due MC 01/21/23 10:30 DAILY CEASAR Problem List (Updated 01/18/23 @ 21:[address] Darshan Laboy MD) Neuropathic pain (Acute) GERD (gastroesophageal reflux disease) (Acute) Orthostatic hypotension (Acute) History of gastrostomy (Acute) History of tracheostomy (Acute) History of laryngeal cancer (Acute) Atrial fibrillation (Acute) Debility (Acute) Acute and chronic respiratory failure (Chronic) Bacteremia (Acute) Aspiration pneumonia (Chronic) COPD (chronic obstructive pulmonary disease) (Suspected) Hypothyroidism (Chronic) Vital Signs Temp Pulse Resp BP Pulse Ox O2 Del Method O2 Flow Rate 98.9 F 98 18 87/57 L 94 Trach Collar 8 01/20/23 14:58 01/21/23 06:30 01/20/23 19:50 01/21/23 08:06 01/20/23 19:50 01/20/23 22:45 01/20/23 14:58 FiO2 35 01/20/23 19:50 Oxygen Flow Rate (L/min) 8 Oxygen Delivery Method Trach Collar Weight: 62.006 kg Body Mass Index (BMI) 19.5 Sodium 141 mmol/L (136-145) 01/19/23 09:26 Potassium 4.1 mmol/L (3.5-5.1) 01/19/23 09:26 Chloride 106 mmol/L (98-107) 01/19/23 09:26 Carbon Dioxide 30.0 mmol/L (21.0-32.0) 01/19/23 09:26 Anion Gap 5 (5-15) 01/19/23 09:26 BUN 24 mg/dL (7-18) H 01/19/23 09:26 Creatinine 1.49 mg/dL (0.70-1.30) H 01/19/23 09:26 Est GFR (MDRD) Af Amer 59 mL/min (>60) L 01/19/23 09:26 Est GFR (MDRD) Non-Af 49 mL/min (>60) L 01/19/23 09:26 BUN/Creatinine Ratio 16.1 RATIO (10-20) 01/19/23 09:26 Glucose 90 mg/dL (74-106) 01/19/23 09:26 Vancomycin Trough 25.1 ug/mL (5.0-15.0) H 01/20/23 20:29 Assessment/Plan: 1. Aspiration pneumonia/bacteremia: meropenem 1 gram IV Q12H, vancomycin IV pharmacy to dose; both through 01/26/23. Please continue to monitor for resolution of infection, WBC count (WBC = 4.7 K/mm3 on 01/20/23), for fevers (temps = 97.7-98.9 recently), for chills, for vancomycin-related infusion syndrome, for diarrhea, vancomycin troughs, renal function (serum creatinine = 1.49 mg/dL with creatinine clearance ~ 38 on 01/19/23), and for seizure/delirium. 2. Atrial fibrillation/HFrEF: carvedilol 3.125 mg via PEG BID, apixaban 2.5 mg via PEG BID, amiodarone 200 mg via PEG BID, furosemide 40 mg via PEG daily.. Please continue to monitor for s/s that the patient is in atrial fibrillation such as for heart palpitations, heart rate (recent range = 74-98 beats/min), as well as blood pressure (recent range = 87-119/45-82 mmHg), for bleeding/bruising, hemoglobin levels (Hgb = 9.4 g/dL on 01/20/23), platelet count (PLT = 253 K/mm# on 01/20/23), renal function (serum creatinine = 1.49 mg/dL with creatinine clearance ~ 38 on 01/19/23), LFTs (AST/ALT = 21/24 on 01/15/23), TSH (TSH = 1.05 uIU/mL on 12/13/22), T4 levels (T4 = 1.07 ng/dL on 12/13/22), potassium levels (K = 4.1 mmol/L on 01/19/23), sodium levels (Na = 141 mmol/L on 01/19/23), calcium levels (Ca = 9.0 mg/dL on 01/19/23), for signs of heart failure exacerbation such as lower extremity edema and signs of lung congestion such as shortness of breath and crackles upon auscultation, weights (recent weight 61-62 kg stable) and for signs of dehydration. 3. COPD: budesonide 0.5 mg nebulization BID, ipratropium/albuterol 3 mL nebulization Q4H PRN. The patient has used 4 doses of PRN ipratropium/albuterol this admission. Please continue to monitor for s/s of COPD exacerbation such as cough and sputum production as well as respiratory rate (recent range = 16-20 breaths/min), O2 saturation (recent range = 86-95%), for oral thrush, pneumonia, heart palpitations, heart rate (recent range = 74-98 beats/min), and s/s of anticholinergic effects of ipratropium such as dry mouth, dry eyes, urinary retention, constipation and delirium. As the patient is currently being treated for oral thrush, please ensure that the patients mouth is rinsed after every administration of budesonide. 4. Orthostatic hypotension: midodrine 5 mg via PEG TID. Please continue to monitor blood pressures (recent range = 87-119/45-82 mmHg), for s/s of orthostasis such as dizziness and falls, and heart rate (recent range = 74-98 beats/min). The patient is on carvedilol for HFrEF, and has blood pressures on the low side as well as needing PRN breathing treatments. Would recommend changing carvedilol to a B1 selective evidence-based beta adina such as metoprolol succinate 25 mg PO daily, as this may help with both the orthostatic hypotension (removing alpha blockade) as well as with breathing (less risk of bronchospasm). 5. Neuropathic pain: gabapentin 300 mg via PEG BID. 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 6. Hypothyroidism: levothyroxine 50 mcg via PEG daily. Please continue to monitor for s/s of hypo/hyperthyroidism as well as TSH (TSH = 1.05 uIU/mL on 12/13/22), and T4 (T4 = 1.07 ng/dL on 12/13/22). 7. Cough: guaifenesin 20 mL via PEG Q6H PRN cough. The patient has not used any PRN doses of guaifenesin yet this admission. Please continue to monitor for cough, PRN medication usage, and for dizziness, drowsiness and headache. 8. Insomnia: melatonin 3 mg via PEG QHS PRN insomnia. The patient has not used any PRN doses of melatonin yet this admission. Please continue to monitor for insomnia and for PRN medication usage. If the patient experiences insomnia more frequently without adequate relief from melatonin, please administer melatonin approximately 2 hours prior to anticipated bedtime. 9. Nausea: ondansetron 4 mg IV Q6H PRN nausea. The patient has not used any PRN doses of ondansetron yet this admission. Please continue to monitor for nausea and PRN medication usage, as well as for constipation and headache. 10. GERD: pantoprazole 40 mg IV Q24H. Please continue to monitor for s/s of GERD as well as for diarrhea that could indication clostridium difficile infection, and for s/s of bone resorption such as fracture. The patient was originally on lansoprazole disintegrating but unfortunately per RN report could not get through feeding tube, therefore will remain on IV pantoprazole for now. 11. Oral thrush: Nystatin 500,000 units oral solution PO 4 times daily. Please continue to monitor for resolution of oral thrush, as well as for nausea and stomach pain. 12. Nutrition: Jevity 1.5 Kcal/mL 240 mL via PEG 5 times daily. Please continue to monitor nutritional status. 13. Skin irritation: calmoseptine 1 application topically BID. Please continue to monitor for skin irritation/integrity. Assessment/Plan for indications treated with psychotropic medications: NA Medical chart and medication regimen reviewed. The following medication irregularities or issues were identified: 1. COPD: budesonide 0.5 mg nebulization BID, ipratropium/albuterol 3 mL nebulization Q4H PRN. As the patient is currently being treated for oral thrush, please ensure that the patients mouth is rinsed after every administration of budesonide. 2. Orthostatic hypotension: midodrine 5 mg PO TID. The patient is on carvedilol for HFrEF, and has blood pressures on the low side as well as needing PRN breathing treatments. Would recommend changing carvedilol to a B1 selective evidence-based beta adina such as metoprolol succinate 25 mg PO daily, as this may help with both the orthostatic hypotension (removing alpha blockade) as well as with breathing (less risk of bronchospasm). Date Date of Note:: 01/21/23 Documented by User: Dr. Darshan Laboy MD 01/21/23 12:24 TCU RX Drug Regimen Review Provider Comments Provider responsibility Provider Comments to Recommendations by Pharmacy: Agree
[2023-01-21 09:31] LABS: Anion Gap 5 (5-15); BUN 22 mg/dL (7-18); BUN/Creat Ratio 15.4 RATIO (10-20); Calcium,Total 8.3 mg/dL (8.5-10.1); Chloride 107 mmol/L (98-107); Creatinine, Serum 1.43 mg/dL (0.70-1.30); EST Glomerular Filtration Rate 51 mL/min (>60); Est Glom Filt Rate - Afr Amer 62 mL/min (>60); Estimated Creatinine Clearance 39.15 ml/min; Glucose 124 mg/dL (74-106); Potassium 3.8 mmol/L (3.5-5.1); Sodium Level 141 mmol/L (136-145)
[2023-01-21] MEDS: Furosemide 40 MG Tablet PO (10:04)
[2023-01-21] MEDS: Pantoprazole Sodium 40 MG in 0.9% Normal Saline (100mL MB+) 100 ML 330 MG IV (10:08)
[2023-01-21] MEDS: Menthol/Lanolin/Calamine/Znox 113 GM Tube 1 APPLIC TOPICAL ×2 (10:16→22:20)
[2023-01-21] MEDS: Gabapentin 300 MG Capsule GT ×2 (10:23→22:24)
[2023-01-21] MEDS: APIXABAN 2.5 MG TABLET (WCH) PO ×2 (10:25→22:24)
--- NOTE | 2023-01-21 10:26 | NURSING ---
Called podiatry consult. They said Dr. Venegas will be the one covering this week but he is off today.
[2023-01-21] MEDS: Amiodarone 200 MG Tablet PO ×2 (10:31→22:24)
[2023-01-21] MEDS: Meropenem 1 GM in 0.9% Normal Saline (100mL MB+) 100 ML IV ×2 (10:39→22:11)
--- NOTE | 2023-01-21 10:59 | WOUNDNOTE ---
consulted for scabbed area to plantar area b/l feet - no scabbs noted. b/l feet had dry skin and dirty areas that were cleaned. between the toes was also cleaned d/t having dry, black, flaky skin. nails are thick and growing in different directions.
--- NOTE | 2023-01-21 11:35 | NURSING ---
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 He will watch tv, read and visit with family, friends and the father from [facility]'s will visits. Staff will take in word puzzles, newspapers and continue to remind him of daily activities and respect his right to say no.
--- NOTE | 2023-01-21 12:09 | PCM.RX.CS ---
Consult Antibiotic Management Pharmacy has been consulted to manage selected antiobiotic: Vancomycin Type of Intervention Type of Consult: Follow-up Suspected Infection Suspected Infection: Bacteremia Prior Doses of Antibiotics Prior Doses of Antibiotics Received/Current Regimen: Vancomycin 750 mg Q24H with doses given 01/16 @ 2114, 01/17 @ 2108, 01/18 @ 2145, 01/19 @ 2054. Labs Labs: Sodium 141 mmol/L (136-145) 01/21/23 08:40 Potassium 3.8 mmol/L (3.5-5.1) 01/21/23 08:40 Chloride 107 mmol/L (98-107) 01/21/23 08:40 Carbon Dioxide 29.0 mmol/L (21.0-32.0) 01/21/23 08:40 Anion Gap 5 (5-15) 01/21/23 08:40 BUN 22 mg/dL (7-18) H 01/21/23 08:40 Creatinine 1.43 mg/dL (0.70-1.30) H 01/21/23 08:40 Est GFR (MDRD) Af Amer 62 mL/min (>60) 01/21/23 08:40 Est GFR (MDRD) Non-Af 51 mL/min (>60) L 01/21/23 08:40 BUN/Creatinine Ratio 15.4 RATIO (10-20) 01/21/23 08:40 Glucose 124 mg/dL (74-106) H 01/21/23 08:40 Vancomycin Trough 25.1 ug/mL (5.0-15.0) H 01/20/23 20:29 Random Vancomycin 19.0 ug/mL (0.0-15.0) H 01/21/23 08:40 Microbiology Microbiology: Microbiology 01/19/23 06:28 Nasal Secretion SARS-CoV-2 Antigen (Rapid) - Final Dosing Weight Weight used for dosin kg Estimated Creatinine Clearance Estimated Creatinine Clearance: ~38 Goal Trough Goal Trough: 15-20 mcg/mL Pharmacy Plan for Drug Dosing Pharmacy Plan for Drug Dosing: Vancomycin trough on 01/22 = 25.1, repeat random this AM = 19.0, will go to vancomycin 500 mg IV Q24H with a trough prior to the 3rd dose. Pharmacy Service will continue to monitor and adjust dosing as required. Follow-Up Labs Follow-Up Labs: Trough: Vancomycin Date/Time Labs Ordered Labs to be done on [date and time ordered]: 01/23/23 @ 0834
[2023-01-21] MEDS: Vancomycin Trough/Random Due 1 LAB MC ×2 (12:13)
[2023-01-21] MEDS: Vancomycin IV 500 MG/100 ML BAG 100 MG IV (13:03)
--- NOTE | 2023-01-21 13:34 | NS ---
MST score = 3 d/t issues chewing/swallowing and on TF for nutrition
--- NOTE | 2023-01-21 14:10 | CASEMGMT ---
Social Work Met with patient and SO to complete initial assessment. Introduced self and role. Pt's speaking valve was not on and allowed SO to answer most assessment questions. Pt was able to write down answers. Discussed code status. Pt confirms full code. Educated to Medicare benefit. Encouraged to contact secondary insurance to ensure copay coverage. Pt's goal is to return home with SO at [facility]. Throughout assessment, SO continued to interject how she has completed all care and assistance for pt since 2014. SO was eating when this worker was visiting with pt. SO was also answering questions, however, at one point, threw her sandwich on her wrapper stating I might as well just forget my lunch. I can't catch a break with everyone coming in and out of here. I've been doing everything for him. SW apolgized for the inconvenience and offered to return at a later time, but SO declined. Pt agreeable to continue with visit. SW offered ongoing assistance with DC plans. Liat Zee, LEEANNE ALVARADOW
--- NOTE | 2023-01-21 14:26 | CON.PCM_ITS ---
Assessment & Plan Assessment/Plan (1) Pain in right toe(s): PLAN: Exam performed Toenails 1 through 5 bilaterally debrided in length and thickness without incident using sterile nail nippers. Patient noted improvement postdebridement. Due to some xerosis Rx for ammonium lactate was ordered Patient will follow-up on an outpatient basis for routine nail care No other acute issues today. (2) Pain in left toe(s): (3) Tinea unguium: HPI Consult Data Date of Consult: 01/21/23 HPI Narrative HPI Narrative: SERENITY ESTRADA, is a 77 M who presents elongated thickened painful toenails digits 1-5 bilaterally. Patient unable to talk due to tracheostomy. Patient has history of neuropathy with diminished sensation in the feet but also pain intermittently. 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COMPLEX thyroid #90 TABLETS 06/22/22 [Rx Last Taken Unknown] omeprazole 20 mg capsule,delayed release 20 mg PO DAILY reflux 06/25/22 [History Last Taken Unknown] bevacizumab 25 mg/mL intravenous solution (Avastin) 25 mg intravitreal QMONTH cancer 08/10/22 [History Last Taken Unknown] budesonide 0.5 mg/2 mL suspension for nebulization 0.5 mg (2 mL) inhalation BID breathing #120 mL 08/13/22 [Rx Last Taken Unknown] ipratropium 0.5 mg-albuterol 3 mg (2.5 mg base)/3 mL nebulization soln 3 ml inhalation Q4H PRN shortness of breath or wheezing #180 mL 08/14/22 [Rx Last T aken Unknown] lweiuvxhjhndz-XE-gnbnfjttrdk 2.5 mg-5 mg-50 mg/5 mL oral liquid (Robitussin Cough and Cold CF) 15 ml PO Q4H PRN cold symptoms #118 mL 10/05/22 [Rx Last Taken Unknown] ondansetron 8 mg disintegrating tablet 8 mg PO Q8H PRN nausea and vomiting #30 tabs 11/13/22 [Rx Last Taken Unknown] gabapentin 300 mg capsule 300 mg feeding tube BID nerve pain #60 caps 11/30/22 [Rx Last Taken Unknown] lidocaine-prilocaine 2.5 %-2.5 % topical cream 50 g topical ONCE pain #30 grams 11/30/22 [Rx Last Taken Unknown] prednisolone sodium phosphate 15 mg/5 mL (5 mL) oral solution 15 mg (5 mL) PO DAILY inflammation #250 mL 12/03/22 [Rx Last Taken Unknown] apixaban 5 mg tablet (Eliquis) 2.5 mg (1/2 x 5 mg) PO BID blood thinner 30 days #30 tabs 12/18/22 [Rx Last Taken Unknown] carvedilol 3.125 mg tablet 3.125 mg PO BID blood pressure 30 days #60 tabs 12/18/22 [Rx Last Taken Unknown] furosemide 40 mg tablet (Lasix) 40 mg PO DAILY diuretic #30 tabs 12/18/22 [Rx Last Taken Unknown] amiodarone 200 mg tablet 200 mg PO BID heart #0 tabs 01/18/23 [Rx Last Taken Unknown] lactose-reduced food with fiber 0.06 gram-1.5 kcal/mL oral liquid (Jevity 1.5 Dipesh) 240 ml G-tube 5X/DAY nutrition 01/18/23 [History Last Taken Unknown] melatonin 3 mg tablet 3 mg PO QHS PRN PRN Insomnia #0 tabs 01/18/23 [Rx Last Taken Unknown] meropenem 1 gram intravenous solution 1 g IV Q12 ATB 5 days #10 ea 01/18/23 [Rx Last Taken Unknown] sodium chloride 0.9 % (flush) (Normal Saline Flush 0.9 % injection syringe) 10 - 40 ml IV UD PRN Port access or dressing change #0 mL 01/18/23 [Rx Last Taken Unknown] vancomycin 750 mg intravenous solution 750 mg IV Q24H antibiotic 5 days #5 ea 01/18/23 [Rx Last Taken Unknown] Allergy/AdvReac Type Severity Reaction Status Date / Time venom-wasp Allergy Anaphylaxis Verified 01/13/23 17:29 pseudoephedrine HCl AdvReac Severe Unknown Verified 01/13/23 17:29 [From Sudafed] Antihistamines - Alkylamine AdvReac Mild Other Verified 01/13/23 17:29 Family History Father Colon cancer Hypertension Mother Hypertension Surgical History History of gastrostomy History of surgery History of tracheostomy Hx of tonsillectomy S/P percutaneous endoscopic gastrostomy (PEG) tube placement S/P TURP Social History household members: spouse Smoking Status: Former smoker quit date: 04/08/17 pack-years: 55 alcohol intake: never substance use type: does not use ROS Review of Systems ROS Unobtainable: due to endotracheal tube Physical Exam Narrative Dorsalis pedis posterior tibial pulses palpable 2 out of 4 to bilateral extremity. Digital hair growth noted. Capillary fill time brisk to all digits. No sign of skin atrophy. Light touch protective sensation diminished bilateral feet. Toenails 1 through 5 bilaterally elongated dystrophic with subungual debris. Pain to palpation of toenails 1-3 4 and 5 on the right and on the left. Digits 1 and 3 on the left and right were notably dystrophic with significant pain. There is some ingrowing into the adjacent digit causing additional pain and irritation. No gross musculoskeletal deformities. Muscular strength 5 out of 5 to bilateral lower extremity compartments. No signs DVT Medical Records Data Medical Nutrition Assessment Dietitian: Malnutrition Criteria Met Start: 01/19/23 10:28 Freq: Status: Active Protocol: Document 01/19/23 10:28 AG (Rec: 01/19/23 10:28 [id number]) Nutrition Malnutrition Evidence of Malnutrition Exists Yes Malnutrition (moderate): Chronic Evidenced By Suboptimal Energy Intake ( Moderate),Physical Changes ( Severe) Clinical Problem Chronic Disease or Condition Related Malnutrition Etiology moderate, chronic malnutrition related to increased energy needs d/t resp. failure Signs/Symptoms as evidenced by severe muscle wasting/fat loss per physical exam, estimated calorie/ protein intake meeting ~80% of estimated energy needs, BMI 19.6 Status Active Problem Recommendation Dietitian Recommendations/Changes NPO; Continue as ordered, Jevity 1.5 via PEG 240mL bolus 5x/day w/ 100mL H2O flush before and after each bolus to provide 1800 calories, 76.6 g protein, and 1912mL fluid/day . Significant other has been counseled re: adding banana/ whey powder to PEG previously and her/Res do not want to discontinue at this time. Will monitor wt/tolerance of EN and adjust as indicated. Lab / Micro Data 01/20/23 06:15 01/21/23 08:40 Labs: Laboratory Results - last 24 hr 01/20/23 20:29: Vancomycin Trough 25.1 H 01/21/23 08:40: Sodium 141, Potassium 3.8, Chloride 107, Carbon Dioxide 29.0, Anion Gap 5, BUN 22 H, Creatinine 1.43 H, Estim Creat Clear Calc 39.15, Est GFR (MDRD) Af Amer 62, Est GFR (MDRD) Non-Af 51 L, BUN/Creatinine Ratio 15.4, Glu cose 124 H, Calcium 8.3 L, Random Vancomycin 19.0 H
[2023-01-21] MEDS: Jevity 1.5. 1,000 ML Bottle 300 ML GT ×2 (16:58→22:23)
[2023-01-21] MEDS: 0.9% Normal Saline (250mL Bag) 250 ML 15 ML IV (22:10)
--- NOTE | 2023-01-21 22:47 | CPS ---
cool mist water bottle replaced. 10 lpm .35%
[2023-01-22] VITALS (9 sets, daily range): BP systolic 88–100; BP diastolic 52–62; PULSE 74–99; RESP 16–22; TEMP 36.4; O2SAT 91–96; BMI 19.7
[2023-01-22] MEDS: 0.9% Saline Lock 10 ML Syringe IV ×3 (03:04→12:52)
[2023-01-22] MEDS: Levothyroxine 50 MCG Tablet GT (05:10)
[2023-01-22] MEDS: NYSTATIN 500,000 UNIT/5 ML UDC 500000 UNIT PO ×3 (05:10→17:05)
--- NOTE | 2023-01-22 05:20 | NURSING ---
Trach care offered at this time, declined by patient, per patient will accept later. Trach collar in place with cool humidification @9L O2. Cool humidification bottle changed by resp therapist this shift. No resp distress observed or reported. Pleasant and cooperative. Call light in reach. Denies requests at this time.
[2023-01-22] MEDS: Midodrine HCl 5 MG Tablet GT (06:46)
[2023-01-22] MEDS: Jevity 1.5. 1,000 ML Bottle 300 ML GT ×4 (06:46→23:01)
[2023-01-22] MEDS: Budesonide Respules 0.5 MG/2 ML AMPUL.NEB. INHALATION ×2 (07:12→19:02)
[2023-01-22 09:56] LABS: Pathologist Review Reviewed
[2023-01-22] MEDS: Furosemide 40 MG Tablet PO (10:21)
[2023-01-22] MEDS: Amiodarone 200 MG Tablet PO ×2 (10:21→22:58)
[2023-01-22] MEDS: APIXABAN 2.5 MG TABLET (WCH) PO ×2 (10:21→22:58)
--- NOTE | 2023-01-22 11:38 | NURSING ---
Flushed Port with no blood return. Administered a Heparin flush and waited 30min and no blood return noted. Rowell needle changed along with dressing using sterile technique. Able to flush port still no blood return noted. Will update Dr. Laboy.
[2023-01-22] MEDS: Midodrine HCl 5 MG Tablet 10 MG GT ×2 (12:31→17:04)
[2023-01-22] MEDS: 0.9 % NaCl (Sterile) Posiflush 10 mL IV (12:51)
--- NOTE | 2023-01-22 12:57 | NURSING ---
Pt administered Jevity through PEG. mixed up tube feed with Protein and banana. Pt flushed before and after with 35ml per pt refused the rest of the flush. Pt in room during feed. Pt tolerated tube feed well. Call light within reach.
[2023-01-22] MEDS: Alteplase 2 MG/2 ML Vial IV (13:26)
--- NOTE | 2023-01-22 13:26 | NURSING ---
Offered covid vaccine, education about vaccine provided. Patient refuses at this time.
[2023-01-22] MEDS: Menthol/Lanolin/Calamine/Znox 113 GM Tube 1 APPLIC TOPICAL ×2 (13:36→22:59)
[2023-01-22] MEDS: Pantoprazole Sodium 40 MG in 0.9% Normal Saline (100mL MB+) 100 ML 330 MG IV (14:31)
[2023-01-22] MEDS: Gabapentin 300 MG Capsule GT ×2 (14:38→22:58)
--- NOTE | 2023-01-22 14:50 | NURSING ---
CathFlo administered per order. Rechecked after dwelling for 30min no blood return noted and rechecked in another 30min and blood return noted 4ml of blood discarded and Port flushed with ease. Protonix hung at this time and pharmacy called to update on IV medication being given late. Per pharmacist will keep times the same and get on track tomorrow.
[2023-01-22] MEDS: Meropenem 1 GM in 0.9% Normal Saline (100mL MB+) 100 ML IV ×2 (15:20→22:57)
--- NOTE | 2023-01-22 16:24 | NURSING ---
Pt coughed up moderate amount of yellow sputum. Emesis also noted to come out of Trach. Pt's stated that it is normal for pt to have emesis come out of trach. Respiratory up to per pt request. Pt changed Inner canula. in room and call light within reach. Will up date Dr. Laboy.
--- NOTE | 2023-01-22 18:15 | NURSING ---
administered tube feed for 1700 feed.
[2023-01-22] MEDS: Vancomycin IV 500 MG/100 ML BAG 100 MG IV (18:50)
--- NOTE | 2023-01-22 19:00 | NURSING ---
Pt and updated on Positive covid pt.
--- NOTE | 2023-01-23 03:21 | CPS ---
Patient refused to be suctioned by DISPLAY SPECIALIST x2
[2023-01-23] MEDS: Gabapentin 300 MG Capsule GT ×3 (05:20→22:37)
[2023-01-23] MEDS: NYSTATIN 500,000 UNIT/5 ML UDC 500000 UNIT PO (05:20)
[2023-01-23] MEDS: Levothyroxine 50 MCG Tablet GT (05:20)
[2023-01-23] MEDS: Jevity 1.5. 1,000 ML Bottle 300 ML GT ×3 (06:57→22:49)
[2023-01-23 07:01] VITALS: BP 87/50; PULSE 82
[2023-01-23 07:33] VITALS: PULSE 86; RESP 16; O2SAT 90
[2023-01-23] MEDS: Budesonide Respules 0.5 MG/2 ML AMPUL.NEB. INHALATION ×2 (07:33→19:35)
[2023-01-23] MEDS: Midodrine HCl 5 MG Tablet 10 MG GT ×3 (08:54→18:18)
[2023-01-23] MEDS: Amiodarone 200 MG Tablet PO ×2 (08:55→22:51)
[2023-01-23] MEDS: Carvedilol 3.125 MG TABLET 1.5625 MG PO (08:55)
[2023-01-23] MEDS: Furosemide 40 MG Tablet PO (08:56)
[2023-01-23] MEDS: APIXABAN 2.5 MG TABLET (WCH) PO ×2 (08:56→22:51)
[2023-01-23] MEDS: 0.9% Normal Saline (250mL Bag) 250 ML 330 ML IV (09:02)
[2023-01-23] MEDS: 0.9% Saline Lock 10 ML Syringe IV ×4 (09:03→22:36)
[2023-01-23] MEDS: Pantoprazole Sodium 40 MG in 0.9% Normal Saline (100mL MB+) 100 ML 330 MG IV (09:03)
[2023-01-23] MEDS: Meropenem 1 GM in 0.9% Normal Saline (100mL MB+) 100 ML IV ×2 (10:35→22:37)
[2023-01-23] MEDS: 0.9% Normal Saline (250mL Bag) 250 ML 33 ML IV (10:35)
[2023-01-23] MEDS: Menthol/Lanolin/Calamine/Znox 113 GM Tube 1 APPLIC TOPICAL ×2 (12:08→22:37)
[2023-01-23] MEDS: Vancomycin Trough/Random Due 1 LAB MC (12:28)
[2023-01-23] MEDS: Ondansetron 4 MG/2 ML Vial IV (13:02)
--- NOTE | 2023-01-23 13:49 | CASEMGMT ---
Social Work IDT met with patient and SO for care plan meeting. Discussed patient's progress in PT/OT/SN. Educated to Medicare benefit. Encouraged to contact secondary insurance to ensure copay coverage. Pt is on IV ATB through 01/26, old trache and peg. On O2 prior but increased since admission. SW to coordinate with [employer] if a larger concentrator is needed for pt at home. Pt's goal is to DC home with SO, when ready. SW to assist with skilled HHC and any DME needs. SO cannot complete IVs at home and will notify this worker when pt/SO ready to DC home. SW will continue to follow for DC planning. LEEANNE WillisW
[2023-01-23 14:14] LABS: Vancomycin, Trough Level 18.8 ug/mL (5.0-15.0)
[2023-01-23 14:38] VITALS: BP 104/62; PULSE 69; RESP 16; TEMP 36.8; O2SAT 87
--- NOTE | 2023-01-23 14:41 | PCM.RX.CS ---
Consult Antibiotic Management Pharmacy has been consulted to manage selected antiobiotic: Vancomycin Type of Intervention Type of Consult: Follow-up Prior Doses of Antibiotics Prior Doses of Antibiotics Received/Current Regimen: current dose is vanc 500mg IV q24h Labs Labs: Sodium 141 mmol/L (136-145) 01/21/23 08:40 Potassium 3.8 mmol/L (3.5-5.1) 01/21/23 08:40 Chloride 107 mmol/L (98-107) 01/21/23 08:40 Carbon Dioxide 29.0 mmol/L (21.0-32.0) 01/21/23 08:40 Anion Gap 5 (5-15) 01/21/23 08:40 BUN 22 mg/dL (7-18) H 01/21/23 08:40 Creatinine 1.43 mg/dL (0.70-1.30) H 01/21/23 08:40 Est GFR (MDRD) Af Amer 62 mL/min (>60) 01/21/23 08:40 Est GFR (MDRD) Non-Af 51 mL/min (>60) L 01/21/23 08:40 BUN/Creatinine Ratio 15.4 RATIO (10-20) 01/21/23 08:40 Glucose 124 mg/dL (74-106) H 01/21/23 08:40 Vancomycin Trough 18.8 ug/mL (5.0-15.0) H 01/23/23 12:15 Random Vancomycin 19.0 ug/mL (0.0-15.0) H 01/21/23 08:40 Microbiology Microbiology: Microbiology 01/22/23 06:25 Nasal Secretion SARS-CoV-2 Antigen (Rapid) - Final 01/19/23 06:28 Nasal Secretion SARS-CoV-2 Antigen (Rapid) - Final Dosing Weight Weight used for dosin.2 kg Estimated Creatinine Clearance Estimated Creatinine Clearance: 39 ml/min Goal Trough Goal Trough: 15-20 mcg/mL Pharmacy Plan for Drug Dosing Pharmacy Plan for Drug Dosing: The vanc trough drawn at 12:15 today (approx 17.5 hours after the previous dose) was 18.8, which is in goal range. Yesterday's dose was given about 6 hours late so the trough would have been lower than 18.8 if that dose had been given on time. The stop date for vanc is 01/26/23 so will not schedule any more troughs at this time. Pharmacy Service will continue to monitor and adjust dosing as required. Date/Time Labs Ordered Labs to be done on [date and time ordered]: none scheduled at this time (stop date for vanc is 01/26/23)
[2023-01-23] MEDS: Vancomycin IV 500 MG/100 ML BAG 100 MG IV (14:43)
[2023-01-23] MEDS: Ipratropium/Albuterol Sulfate 3 ML AMPUL.NEB INHALATION (19:35)
[2023-01-23 20:08] VITALS: PULSE 93; RESP 18; O2SAT 90
[2023-01-23 22:30] VITALS: BP 98/57; PULSE 86; RESP 18
[2023-01-24] VITALS (7 sets, daily range): BP systolic 81–85; BP diastolic 49–60; PULSE 73–94; RESP 16–18; TEMP 36.8; O2SAT 77–97
[2023-01-24] MEDS: 0.9% Saline Lock 10 ML Syringe IV ×2 (03:35→10:18)
[2023-01-24] MEDS: Levothyroxine 50 MCG Tablet GT (05:35)
[2023-01-24] MEDS: NYSTATIN 500,000 UNIT/5 ML UDC 500000 UNIT PO ×2 (05:38→12:04)
--- NOTE | 2023-01-24 05:51 | CPS ---
pt changed to a 40%vm via trach collar-pt wanted to be off humidity during the day
[2023-01-24] MEDS: Jevity 1.5. 1,000 ML Bottle 300 ML GT ×2 (06:34→12:05)
[2023-01-24] MEDS: Midodrine HCl 5 MG Tablet 10 MG GT (06:35)
[2023-01-24] MEDS: Gabapentin 300 MG Capsule GT ×2 (06:35→22:53)
[2023-01-24] MEDS: Ipratropium/Albuterol Sulfate 3 ML AMPUL.NEB INHALATION ×2 (09:55→19:34)
[2023-01-24] MEDS: 0.9% Normal Saline (1000mL) 1,000 ML 999 ML IV (10:19)
[2023-01-24] MEDS: Amiodarone 200 MG Tablet PO (10:24)
[2023-01-24] MEDS: APIXABAN 2.5 MG TABLET (WCH) PO ×2 (10:24→22:48)
[2023-01-24] MEDS: Menthol/Lanolin/Calamine/Znox 113 GM Tube 1 APPLIC TOPICAL ×2 (10:33→22:50)
--- NOTE | 2023-01-24 11:13 | MDS.RN ---
Pain interview for mds completedl.
[2023-01-24] MEDS: Pantoprazole Sodium 40 MG in 0.9% Normal Saline (100mL MB+) 100 ML 330 MG IV (11:17)
[2023-01-24] MEDS: Meropenem 1 GM in 0.9% Normal Saline (100mL MB+) 100 ML IV (12:04)
[2023-01-24] MEDS: Midodrine HCl 5 MG Tablet 15 MG GT ×2 (12:06→17:48)
--- NOTE | 2023-01-24 12:27 | NURSING ---
Residual checked, zero mL. Patient refused full flush, 130 mL administered.
--- NOTE | 2023-01-24 15:54 | NURSING ---
Dr. Jorge into see pt and per Dr. Jorge okay to stop Vancomycin and Merrem.
[2023-01-24] MEDS: Ondansetron 4 MG/2 ML Vial IV (17:46)
[2023-01-24] MEDS: Budesonide Respules 0.5 MG/2 ML AMPUL.NEB. INHALATION (19:34)
[2023-01-25] VITALS (7 sets, daily range): BP systolic 93–103; BP diastolic 53–57; PULSE 70–94; RESP 16–18; TEMP 36.4; O2SAT 94–100
[2023-01-25] MEDS: NYSTATIN 500,000 UNIT/5 ML UDC 500000 UNIT PO (05:18)
[2023-01-25] MEDS: Levothyroxine 50 MCG Tablet GT (05:18)
[2023-01-25] MEDS: Gabapentin 300 MG Capsule GT ×3 (05:18→22:44)
[2023-01-25] MEDS: 0.9% Saline Lock 10 ML Syringe IV ×2 (05:19→09:20)
[2023-01-25] MEDS: 0.9% Normal Saline 1,000 ML 999 ML IV (05:19)
[2023-01-25] MEDS: Jevity 1.5. 1,000 ML Bottle 300 ML GT ×2 (05:19→12:01)
[2023-01-25] MEDS: Budesonide Respules 0.5 MG/2 ML AMPUL.NEB. INHALATION ×2 (07:25→19:30)
[2023-01-25] MEDS: Ipratropium/Albuterol Sulfate 3 ML AMPUL.NEB INHALATION (07:25)
[2023-01-25] MEDS: Midodrine HCl 5 MG Tablet 15 MG GT ×3 (08:55→17:27)
[2023-01-25] MEDS: APIXABAN 2.5 MG TABLET (WCH) PO ×2 (08:56→22:44)
[2023-01-25] MEDS: Pantoprazole Sodium 40 MG in 0.9% Normal Saline (100mL MB+) 100 ML 330 MG IV (09:19)
[2023-01-25] MEDS: Menthol/Lanolin/Calamine/Znox 113 GM Tube 1 APPLIC TOPICAL ×2 (10:35→22:46)
--- NOTE | 2023-01-25 10:45 | CASEMGMT ---
Social Work SW notified that pt's IV ATB were stopped earlier. SW recalled wanting pt discharged sooner than later d/t concerns for COVID exposure. Pt has been using 8-9L of O2 and pt only has smaller concentrator at home. [facility] [employer] can accommodate with updated O2 testing. SW phoned SO to discuss DC plans since IVs were stopped. Provided active listening with SO's responses. Overall, SO would like to visit pt today and discuss with him. SW offered to assist with HHC therapy and O2 when pt/SO ready for DC with 1-2 days notice. SO expressed understanding. SW will continue to follow. Liat Zee, SUPERVISOR PHOTOCOMPOSITION AQUATICS COORDINATOR
--- NOTE | 2023-01-25 10:47 | NURSING ---
L Forearm dressing change completed. Trach care and dressing change completed. Pt tolerated well.
--- NOTE | 2023-01-25 13:48 | DS.PCM_ITS ---
Providers Date of Admission: 01/18/23 Primary Care Physician: LEÓN Fung Consultations 01/19/23 07:42 Consult: Podiatry Routine Consulting Provider: Adam Gunderson Reason for Consult: Thick yellow toenails, scabbed wounds bilateral soles of feet. EMERGENT Consult: No MD Notified: Yes Date Notified: 01/19/23 Time Notified: 07:42 Method of Notification: notified office Reason For Visit: PNEUMONIA/AFIB W RVR Diagnosis Discharge Diagnosis (1) Pain in right toe(s): Status: Acute Code(s): M79.674 - Pain in right toe(s) (2) Pain in left toe(s): Status: Acute Code(s): M79.675 - Pain in left toe(s) (3) Tinea unguium: Status: Acute Code(s): B35.1 - Tinea unguium Plan 77 year old male with below past medical history hospitalized for aspiration pneumonia, bacteremia, complicated by acute on chronic respiratory failure, new onset atrial fibrillation, admitted to TCU with debility, here for rehabilit ation, strengthening, intravenous antibiotics, prior to discharge home with . * Debility - PT/OT. * Dysphagia - ST. * Pain - monitor. * Bowel - Not necessary, TF gives him chronic diarrhea. * Adult immunization - Administer pneumonia vaccine, covid19 vaccine, flu vaccine as appropriate. * DVT prophylaxis - on Eliquis. * Atrial fibrillation - Coreg 3.125mg bid, Amiodarone 200mg bid, Eliquis 2.5mg b id. * COPD - Budesonide 0.5mg bid, Duoneb 3ml q4h prn. * HFrEF - Coreg 3.125mg bid, Furosemide 40mg daily. * Neuropathic pain - Gabapentin 300mg bid. * Cough - Robitussin 20ml q6 prn. * Nutrition - Jevity 1.5m 240ml 5x/day. * Hypothyroidism - Levothyroxine 50mcg daily. * Insomnia - Melatonin 3mg qhs prn. * Aspiration pneumonia/bacteremia - Meropenem 1gm iv q12h, Vancomycin 750mg iv q24 thru 01/23/2023. * Orthostatic hypotension - Midodrine 5mg tid. * Nausea - Zofran 4mg iv q6h prn. * GERD - Pantoprazole 40mg iv q24h. Medications at Discharge Home Medications levothyroxine 50 mcg tablet See Rx Instructions .Route .COMPLEX thyroid #90 TA BLETS 06/22/22 omeprazole 20 mg capsule,delayed release 20 mg PO DAILY reflux 06/25/22 budesonide 0.5 mg/2 mL suspension for nebulization 0.5 mg (2 mL) inhalation BID breathing #120 mL 08/13/22 ipratropium 0.5 mg-albuterol 3 mg (2.5 mg base)/3 mL nebulization soln 3 ml inhalation Q4H PRN shortness of breath or wheezing #180 mL 08/14/22 gabapentin 300 mg capsule 300 mg feeding tube BID nerve pain #60 caps 11/30/22 amiodarone 200 mg tablet 200 mg PO BID 30 days #60 tabs 01/25/23 apixaban 5 mg tablet (Eliquis) 2.5 mg (1/2 x 5 mg) PO BID 30 days #30 tabs 01/25/23 lactose-reduced food with fiber 0.06 gram-1.5 kcal/mL oral liquid (Jevity 1.5 Dipesh) 300 ml G-tube 4X/DAY #0 mL 01/25/23 midodrine 5 mg tablet 15 mg (3 x 5 mg) G-tube TIDCM 30 days #270 tabs 01/25/23 Hospital Course Operations None Procedures None Summary of Care Provided Minutes Spent on Discharge: 35 Hospital Course: 77 year old male with below past medical history hospitalized for aspiration pneumonia, bacteremia, complicated by acute on chronic respiratory failure, new onset atrial fibrillation, admitted to TCU with debility, here for rehabilitation, strengthening, intravenous antibiotics, prior to discharge home with . Discharge home with significant other 01/28/2023, [facility] PT/OT/ST, oxygen concentrator. Oxygen concentrator: Patient requires 9 liters per minute of oxygen via venting mask due to acute on chronic respiratory failure secondary to aspiration pneumonia; requires a concentrator and portable oxygen tanks to allow patient to be mobile in the home; oxygen will improve the patient's condition in the home setting. Physical Exam Const alert General Appearance: cooperative HEENT normocephalic HEENT Narrative: Tracheostomy. Eyes PERRL and EOMs intact bilaterally Neck supple, no JVD and no carotid bruits Resp normal respiratory effort, normal air movement and clear to auscultation bilaterally Cardio regular rate and regular rhythm GI normal to inspection, nondistended, normoactive bowel sounds, non-tender and non-distended GI Narrative: PEG. Extremity normal capillary refill General Extremity: Negative for edema Skin no rashes or lesions noted General Skin Exam: no breakdown Psych affect normal Appearance: appropriate Medical Records Data Medical Nutrition Assessment Dietitian: Malnutrition Criteria Met Start: 01/19/23 10:28 Freq: Status: Active Protocol: Document 01/21/23 16:04 [facility] (Rec: 01/21/23 16:04 [facility] Desktop) Nutrition Malnutrition Evidence of Malnutrition Exists Yes Malnutrition (moderate): Chronic Evidenced By Suboptimal Energy Intake ( Moderate),Physical Changes ( Severe) Clinical Problem Chronic Disease or Condition Related Malnutrition Etiology moderate, chronic malnutrition related to increased energy needs d/t resp. failure Signs/Symptoms as evidenced by severe muscle wasting/fat loss per physical exam, estimated calorie/ protein intake meeting ~80% of estimated energy needs, BMI 19.6 Status Active Problem Recommendation Dietitian Recommendations/Changes NPO; Will change Jevity 1.5 via PEG to 300mL bolus 4x/day w/ 125mL H2O flush before and after each bolus to provide 1800 calories, 76.6 g protein, and 1912mL fluid/day. Significant other has been counseled re: adding banana/ whey powder to PEG previously and her/Res do not want to discontinue at this time. Will monitor wt/tolerance of EN and adjust as indicated. Weight / BMI Weight Weight: 62.233 kg Body Mass Index (BMI) 19.7 ABG / Lab / Microbiology Data 01/20/23 06:15 01/21/23 08:40 Microbiology: Microbiology 01/25/23 05:00 Nasal Secretion SARS-CoV-2 Antigen (Rapid) - Final 01/22/23 06:25 Nasal Secretion SARS-CoV-2 Antigen (Rapid) - Final 01/19/23 06:28 Nasal Secretion SARS-CoV-2 Antigen (Rapid) - Final D/C Instructions Discharge Diet: - (NPO.) Discharge Activity: Return to Normal Activity, May Shower and Use Walker Weight Bearing Status: Weight bearing as tolerated Call your doctor if you observe: Fever of 101 or Higher, Inability to urinate, Inability to have a bowel movement, Shortness of breath, Dizziness, Fainting spells, Swelling in the ankles, Chest pain and Uncontrolled pain Additional Instructions: Discharge home with significant other 01/28/2023, [facility] PT/OT/ST, oxygen concentrator. Please Follow Up With: [facility] (will see Mariela Melgar) When: As scheduled. Meaningful Use Info Meaningful Use Diagnoses (Choose all that apply): None applicable Discharge Plan Admission Admit Date/Time: 01/18/23 14:50 Primary Reason for Your Visit: Debility. Attending Provider: Darshan Laboy Chi Primary Care Provider: Alejandro Liu Consulting Providers: Adam Gunderson Instructions Additional Instructions / Restrictions: Discharge home with significant other 01/28/2023, [facility] PT/OT/ST, oxygen concentrator. Discharge Orders/Prescriptions Prescriptions: New amiodarone 200 mg Tablet 200 mg PO BID 30 Days Qty: 60 0RF Eliquis 5 mg Tablet 2.5 mg PO BID 30 Days Qty: 30 0RF midodrine 5 mg Tablet 15 mg G-tube TIDCM 30 Days Qty: 270 0RF Jevity 1.5 Dipesh 0.06 gram-1.5 kcal/mL Liquid 300 ml G-tube 4X/DAY Qty: 0 0RF Continued omeprazole 20 mg capsule,delayed release(DR/EC) 20 mg PO DAILY levothyroxine 50 mcg tablet See Rx Instructions .ROUTE .COMPLEX Qty: 90 5RF Dose Instruction: TAKE 1 TABLET BY MOUTH EVERY DAY Rx Instructions: TAKE 1 TABLET BY MOUTH EVERY DAY budesonide 0.5 mg/2 mL suspension for nebulization 0.5 mg inhalation BID Qty: 120 6RF ipratropium-albuterol 0.5 mg-3 mg(2.5 mg base)/3 mL solution for nebulization 3 ml inhalation Q4H PRN (Reason: shortness of breath or wheezing) Qty: 180 6RF gabapentin 300 mg capsule 300 mg feeding tube BID Qty: 60 11RF Rx Instructions: Via G-tube. Discontinued guaifenesin 200 mg/5 mL liquid 400 mg PO Q6H PRN (Reason: cough) Qty: 473 6RF prednisolone sodium phosphate 15 mg/5 mL (5 mL) solution 15 mg PO DAILY Qty: 250 4RF Avastin 25 mg/mL Solution 25 mg intravitreal QMONTH Hold Instructions: Ordered/Entered in error midodrine 5 mg Tablet 5 mg feeding tube TID Rx Instructions: do not give last dose of day after 6PM or within 4 hrs of bedtime Jevity 1.5 Dipesh 0.06 gram-1.5 kcal/mL Liquid 240 ml G-tube 5X/DAY Rx Instructions: water flush 100cc before and 100cc after bolus Eliquis 5 mg Tablet 2.5 mg PO BID 30 Days Qty: 30 0RF carvedilol 3.125 mg Tablet 3.125 mg PO BID 30 Days Qty: 60 0RF furosemide [Lasix] 40 mg tablet 40 mg PO DAILY Qty: 30 0RF meropenem 1 gram Recon Soln 1 g IV Q12 5 Days Qty: 10 0RF Rx Instructions: dx: pneumonia vancomycin 750 mg recon soln 750 mg IV Q24H 5 Days Qty: 5 0RF Rx Instructions: dx; bacteremia sodium chloride 0.9 % (flush) [Normal Saline Flush] Syringe 10 - 40 ml IV UD PRN (Reason: Port access or dressing change) Qty: 0 0RF amiodarone 200 mg Tablet 200 mg PO BID Qty: 0 0RF melatonin 3 mg Tablet 3 mg PO QHS PRN PRN (Reason: Insomnia) Qty: 0 0RF Robitussin Cough and Cold CF 2.5-5-50 mg/5 mL liquid 15 ml PO Q4H PRN (Reason: cold symptoms) Qty: 118 1RF ondansetron 8 mg tablet,disintegrating 8 mg PO Q8H PRN (Reason: nausea and vomiting) Qty: 30 0RF lidocaine-prilocaine 2.5-2.5 % cream 50 g topical ONCE Qty: 30 3RF Hold Instructions: cancer injection Referrals / Follow Up: Alejandro Liu PA [Primary Care Provider] - Disposition Disposition (needs filled in before D/C Order can be placed): Home Health Service
--- NOTE | 2023-01-25 14:31 | CASEMGMT ---
Social Work BIMS () and PHQ-2 () completed for MDS assessment. SO present in room. SW inquired about DC plans. Pt and SO agreeable to DC 01/28. SW offered skilled HHC list with quality and resource data but SO declined and prefers [facility]. SW phoned referral to [facility] and sent referral via [facility] to [facility] [place] large [place] concentrator. Plan: DC home 01/28 with [facility] PT/OT/SN, increase in O2 Liat Zee [employer]OCK SPLITTER HOME ENERGY CONSULTANT
[2023-01-25] MEDS: Magnesium Citrate 300 ML 150 ML PO (17:24)
[2023-01-25] MEDS: Amiodarone 200 MG Tablet PO (22:45)
--- NOTE | 2023-01-26 03:01 | CPS ---
Patient declined Cool-Aero being put on for night time use, SAMPLE COLOR MAKER asked patient x2
[2023-01-26] MEDS: Levothyroxine 50 MCG Tablet GT (06:26)
[2023-01-26] MEDS: Gabapentin 300 MG Capsule GT ×2 (06:53→13:58)
[2023-01-26 07:25] VITALS: PULSE 76; RESP 18; O2SAT 94
[2023-01-26] MEDS: Budesonide Respules 0.5 MG/2 ML AMPUL.NEB. INHALATION (07:25)
[2023-01-26] MEDS: Midodrine HCl 5 MG Tablet 15 MG GT ×2 (07:46→13:53)
[2023-01-26] MEDS: Amiodarone 200 MG Tablet PO (07:48)
[2023-01-26] MEDS: APIXABAN 2.5 MG TABLET (WCH) PO (07:48)
[2023-01-26] MEDS: Jevity 1.5. 1,000 ML Bottle 300 ML GT ×2 (07:54→18:01)
[2023-01-26] MEDS: Menthol/Lanolin/Calamine/Znox 113 GM Tube 1 APPLIC TOPICAL (07:55)
[2023-01-26] MEDS: 0.9% Saline Lock 10 ML Syringe IV ×3 (08:17→17:15)
[2023-01-26] MEDS: Ondansetron 4 MG/2 ML Vial IV (08:17)
[2023-01-26 08:34] LABS: Absolute Lymphocyte Count 2.01 X10^3/uL (0.83-4.51); Absolute Neutrophil Count 3.5 X10^3/uL (2.0-7.7); Basophil# 0.07 X10^3/uL; Basophil% 1.1 % (0-1); Eosinophil# 0.17 X10^3/uL; Eosinophils% 2.7 % (0-5); Hematocrit 29.4 % (40-54); Hemoglobin 8.9 g/dL (13.0-16.5); Lymphocyte # 2.01 X10^3/ul (0.83-4.51); Lymphocyte % 32.1 % (19-41); Mean Corp Hgb Conc 30.3 g/dL (32-36); Mean Corpuscular Hgb 30.6 pg (27.0-32.0); Mean Platelet Vol. 10.5 fl (6.2-12.0); NRBC Flagged by Analyzer 0 % (0-5); Neutrophil # 3.48 X10^3/uL (2.7-7.7); Neutrophil % 55.6 % (47-70); Platelet Count 284 K/mm3 (150-450); RBC Distribution Width CV 16.8 % (11.6-14.6); RBC Distribution Width SD 61.5 fl (35.1-43.9); Red Blood Count 2.91 M/mm3 (4.6-6.2); White Blood Count 6.3 K/mm3 (4.4-11.0)
[2023-01-26 08:48] LABS: Anion Gap 5 (5-15); BUN 28 mg/dL (7-18); BUN/Creat Ratio 20.3 RATIO (10-20); Calcium,Total 8.9 mg/dL (8.5-10.1); Chloride 104 mmol/L (98-107); Creatinine, Serum 1.38 mg/dL (0.70-1.30); EST Glomerular Filtration Rate 53 mL/min (>60); Est Glom Filt Rate - Afr Amer 65 mL/min (>60); Estimated Creatinine Clearance 40.71 ml/min; Glucose 90 mg/dL (74-106); Potassium 4.6 mmol/L (3.5-5.1); Sodium Level 140 mmol/L (136-145)
[2023-01-26] MEDS: Pantoprazole Sodium 40 MG in 0.9% Normal Saline (100mL MB+) 100 ML 330 MG IV (10:51)
[2023-01-26] MEDS: 0.9% Normal Saline (250mL Bag) 250 ML 15 ML IV (10:51)
[2023-01-26 14:49] VITALS: BP 148/81; PULSE 85; RESP 20; TEMP 37.2; O2SAT 97
--- NOTE | 2023-01-26 15:03 | RAD_ITS ---
INDICATION: Aspiration pneumonia/bacteremia EXAMINATION/TECHNIQUE: X-RAY - XR Chest 2 Views COMPARISON: Prior study dated: 01/09/2023. FINDINGS: LINES/DEVICES: Tracheostomy tube in stable position. Left-sided Port-A-Cath in stable position. LUNGS: Lateral lower lungs infiltrates and atelectatic changes essentially unchanged since prior exam. Small bilateral pleural effusions larger on the right side. MEDIASTINUM AND CARDIOVASCULAR STRUCTURES: Cardiac silhouette not enlarged. Central airways and mediastinal contour are unremarkable. BONES AND SOFT TISSUES: Unchanged. RAD/Chest PA and Lateral IMPRESSION: No significant change. Electronically Signed: Michael Howell MD at 15:50 EDT ,
--- NOTE | 2023-01-26 15:15 | NURSING ---
Addendum entered by Jake Montoya 01/26/23 18:51: Patient fever spiked to 102.8 Patient is now less alert to voice, facial flushing w/ diaphoresis.. lab work resulted w/ a wbc of 12.6. paged d/t concern for sepsis like activity. agreed and advised we send patient to ED to be evaluated. Patient and SO notified, agreeable to transport. Patient transported to ED at 1835. Original Note: Patient exhibiting chills. Patient noted to have low grade temperature of 99.3. Patient not feeling well. Contacted MD. COVID Swab done, CXR To be completed. Suspected Aspiration pneumonia w/ bacteremia. Patient to start Merrem 1 GM Q8H IV as well as vancomycin to be adjusted by pharmacy. Patient to get Blood cultures, cbc w/ diff, cmp. SO Christiane notified.
[2023-01-26] MEDS: Meropenem 1 GM in 0.9% Normal Saline (100mL MB+) 100 ML IV (17:14)
[2023-01-26 17:38] LABS: Absolute Lymphocyte Count 2.18 X10^3/uL (0.83-4.51); Absolute Neutrophil Count 9.2 X10^3/uL (2.0-7.7); Basophil# 0.09 X10^3/uL; Basophil% 0.7 % (0-1); Eosinophil# 0.18 X10^3/uL; Eosinophils% 1.4 % (0-5); Hematocrit 31.5 % (40-54); Hemoglobin 9.4 g/dL (13.0-16.5); Lymphocyte # 2.18 X10^3/ul (0.83-4.51); Lymphocyte % 17.4 % (19-41); Mean Corp Hgb Conc 29.8 g/dL (32-36); Mean Corpuscular Hgb 30.5 pg (27.0-32.0); Mean Corpuscular Volume 102.3 fL (80-94); Mean Platelet Vol. 11.5 fl (6.2-12.0); Monocyte# 0.81 X10^3/uL; Monocyte% 6.5 % (0-10); NRBC Flagged by Analyzer 0 % (0-5); Neutrophil # 9.24 X10^3/uL (2.7-7.7); Neutrophil % 73.6 % (47-70); Platelet Count 339 K/mm3 (150-450); RBC Distribution Width CV 16.8 % (11.6-14.6); RBC Distribution Width SD 62.1 fl (35.1-43.9); Red Blood Count 3.08 M/mm3 (4.6-6.2); White Blood Count 12.6 K/mm3 (4.4-11.0)
[2023-01-26 18:03] LABS: ALB/GLOB Ratio 0.4 RATIO (0.9-2.4); AST(SGOT) 45 U/L (15-37); Alanine Aminotransfer ALT/SGPT 44 U/L (16-61); Albumin, Serum 1.8 g/dL (3.2-5.0); Alkaline Phosphatase 68 U/L (45-117); Anion Gap 4 (5-15); BUN 27 mg/dL (7-18); BUN/Creat Ratio 19.1 RATIO (10-20); Calcium,Total 8.9 mg/dL (8.5-10.1); Chloride 103 mmol/L (98-107); Creatinine, Serum 1.41 mg/dL (0.70-1.30); EST Glomerular Filtration Rate 52 mL/min (>60); Est Glom Filt Rate - Afr Amer 63 mL/min (>60); Estimated Creatinine Clearance 39.85 ml/min; Globulin 4.7 g/dL (2.2-4.2); Glucose 96 mg/dL (74-106); Potassium 5.1 mmol/L (3.5-5.1); Protein, Total 6.5 g/dL (6.4-8.2); Sodium Level 138 mmol/L (136-145)
[2023-01-26 18:22] VITALS: BP 106/57; PULSE 96; RESP 20; TEMP 39.3; O2SAT 99
[2023-01-26] MEDS: 0.9 % NaCl (Sterile) Posiflush 10 mL IV (18:35)
--- NOTE | 2023-01-26 18:38 | NURSING ---
Patient transported to ER [id number]
--- NOTE | 2023-01-29 13:30 | MDS.RN ---
Information for the mds was obtained from review of the clinical record, interview of resident, staff, and direct observation of resident's care.
== END 2023-01-26 18:35 | disposition short-term general hospital (02) | DRG 177 ==
PROVIDERS: Admitting Provider Family Medicine Geriatric Medicine; PCP Physician Assistant; Visit Provider Family Medicine Geriatric Medicine
DX: J69.0 Pneumonitis due to inhalation of food and vomit (principal); J96.21 Acute and chronic respiratory failure with hypoxia; J44.0 Chronic obstructive pulmonary disease with (acute) lower respiratory infection; C78.00 Secondary malignant neoplasm of unspecified lung; I50.22 Chronic systolic (congestive) heart failure; Z93.0 Tracheostomy status; C32.9 Malignant neoplasm of larynx, unspecified; B35.1 Tinea unguium; I48.91 Unspecified atrial fibrillation; N18.30 Chronic kidney disease, stage 3 unspecified; E03.9 Hypothyroidism, unspecified; G62.9 Polyneuropathy, unspecified; I95.1 Orthostatic hypotension; K21.9 Gastro-esophageal reflux disease without esophagitis; M79.674 Pain in right toe(s); M79.675 Pain in left toe(s); R11.10 Vomiting, unspecified; B96.1 Klebsiella pneumoniae [K. pneumoniae] as the cause of diseases classified elsewhere; Z79.01 Long term (current) use of anticoagulants; Z87.891 Personal history of nicotine dependence; B96.89 Other specified bacterial agents as the cause of diseases classified elsewhere; Z79.51 Long term (current) use of inhaled steroids; Z79.899 Other long term (current) drug therapy; Z79.890 Hormone replacement therapy; R50.9 Fever, unspecified
CPT/HCPCS: 31720; 36415; 71046; 80048; 80053; 80202; 85025; 87040; 87811; 92523; 92526; 92610; 94640; 97110; 97163; 97165; 97530; 97535; 97802; 97803; J2185; J2997; J7030; J7050; A4216; J2405

== ENCOUNTER 2023-01-26 18:40 | Inpatient (IN) | payer MEDICARE, OTHER, SELFPAY ==
[2023-01-26] VITALS (15 sets, daily range): BP systolic 74–108; BP diastolic 48–60; PULSE 67–101; RESP 15–24; TEMP 37.2–39.3; O2SAT 94–100; BMI 25.4
--- NOTE | 2023-01-26 18:58 | EDS_ITS ---
HPI History of Present Illness Chief Complaint: Shortness of Breath Narrative Narrative: History and physical is limited secondary to patient's tracheostomy. Per his significant other, he was admitted to the hospital with pneumonia, and over the last 3 to 4 days, was admitted to the TCU. Patient vomited earlier today, then once again this afternoon. He started spiking fevers again. There is thought that he may have aspirated although reportedly chest x-ray did not show anything acute. His significant other is concerned because he started spiking fevers again, and was reportedly less responsive. 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 Shortness of breath on exertion Thrush, oral Tracheostomy in place tracheotomy and laryngeal biopsy Wears glasses Home Medications levothyroxine 50 mcg tablet See Rx Instructions .Route .COMPLEX thyroid #90 TABLETS 06/22/22 [Rx Last Taken Unknown] omeprazole 20 mg capsule,delayed release 20 mg PO DAILY reflux 06/25/22 [History Last Taken Unknown] budesonide 0.5 mg/2 mL suspension for nebulization 0.5 mg (2 mL) inhalation BID breathing #120 mL 08/13/22 [Rx Last Taken Unknown] ipratropium 0.5 mg-albuterol 3 mg (2.5 mg base)/3 mL nebulization soln 3 ml inhalation Q4H PRN shortness of breath or wheezing #180 mL 08/14/22 [Rx Last Taken Unknown] gabapentin 300 mg capsule 300 mg feeding tube BID nerve pain #60 caps 11/30/22 [Rx Last Taken Unknown] amiodarone 200 mg tablet 200 mg PO BID ABNORMAL RHYTHM 30 days #60 tabs 01/25/23 [Rx Last Taken Unknown] apixaban 5 mg tablet (Eliquis) 2.5 mg (1/2 x 5 mg) PO BID DYSRHYTHMIA 30 days #30 tabs 01/25/23 [Rx Last Taken Unknown] lactose-reduced food with fiber 0.06 gram-1.5 kcal/mL oral liquid (Jevity 1.5 Dipesh) 300 ml G-tube 4X/DAY #0 mL 01/25/23 [Rx Last Taken Unknown] midodrine 5 mg tablet 15 mg (3 x 5 mg) G-tube TIDCM HYPOTENSION 30 days #270 tabs 01/25/23 [Rx Last Taken Unknown] guaifenesin 100 mg/5 mL oral liquid mg PO PRN COUGH 01/26/23 [History Last Taken Unknown] menthol 0.44 %-zinc oxide 20.6 % topical ointment (CalaSoothe) 1 applic topical DAILY 01/26/23 [History Last Taken Unknown] meropenem 1 gram intravenous solution 1 g IV Q12H INFECTION 01/26/23 [History Last Taken Unknown] nystatin 100,000 unit/mL oral suspension 5 ml PO Q6H ANTIFUNGAL 01/26/23 [History Last Taken Unknown] pantoprazole 40 mg intravenous solution 40 mg IV DAILY KIRAN 01/26/23 [History Last Taken Unknown] Allergy/AdvReac Type Severity Reaction Status Date / Time venom-wasp Allergy Anaphylaxis Verified 01/13/23 17:29 pseudoephedrine HCl AdvReac Severe Unknown Verified 01/13/23 17:29 [From Sudafed] Antihistamines - Alkylamine AdvReac Mild Other Verified 01/13/23 17:29 Family History Father Colon cancer Hypertension Mother Hypertension Surgical History History of gastrostomy History of surgery History of tracheostomy Hx of tonsillectomy S/P percutaneous endoscopic gastrostomy (PEG) tube placement S/P TURP Social History household members: spouse Smoking Status: Former smoker quit date: 04/08/17 pack-years: 55 alcohol intake: never substance use type: does not use ROS ROS ED ROS Narrative Constitutional: Positive fever, no chills. Decreased responsiveness according to significant other. HEENT: No sore throat. No neck pain. No loss of vision. No rhinorrhea. Cardiovascular: No chest pain. No palpitations. No pedal edema. Respiratory: No cough, no shortness of breath. Abdominal: No abdominal pain. 2 episodes of vomiting. Genitourinary: No dysuria. No hematuria. Musculoskeletal: No myalgias. No arthralgias. Neurologic: No headaches. No dizziness. No lightheadedness. Skin: No rash. No change in color. Psychiatric: No depression. No anxiety. EXAM Physical Exam Narrative Exam Narrative: Temperature 102.7 ?F vital signs noted. HEENT: Normocephalic. Atraumatic. PERRL, EOMI. Neck soft and supple. No point tenderness or step off. Cardiovascular: Regular rate and rhythm with intermittent tachycardia. No murmurs, rubs, or gallops appreciated. Respiratory: No tachypnea. Positive rhonchi left base greater than right. Gastrointestinal: Abdomen soft, nontender, with normoactive bowel sounds. No rebound or guarding. Neurological: Awake. Alert. Nonfocal, nonlateralizing. Skin: No rash. Normal color. No pallor. Musculoskeletal: No pedal edema. Full range of motion extremities. Const Vital Signs: 01/26/23 18:41 01/26/23 18:45 01/26/23 18:55 Temperature 102.7 F H 102.7 F H Temperature Source Oral Oral Pulse Rate 101 H 99 Respiratory Rate 18 19 H Respiratory Effort Respiratory Depth Respiratory Pattern Blood Pressure 108/57 L 108/57 L Blood Pressure Mean 74 74 Pulse Ox 94 95 95 Oxygen Delivery Method Trach Collar Trach Collar Trach Collar Oxygen Flow Rate (L/min) 5 5 5 01/26/23 19:40 01/26/23 19:45 01/26/23 20:00 Temperature 99.6 F H Temperature Source Oral Pulse Rate 92 87 Respiratory Rate 23 H 24 H Respiratory Effort Short of Breath Respiratory Depth Shallow Respiratory Pattern Tachypnea Blood Pressure 104/59 L 107/60 Blood Pressure Mean 74 75 Pulse Ox 98 98 Oxygen Delivery Method Trach Collar Trach Collar Trach Collar Oxygen Flow Rate (L/min) 5 5 5 01/26/23 21:00 01/26/23 19:10 01/26/23 20:09 Temperature 98.9 F Temperature Source Oral Pulse Rate 74 87 Respiratory Rate 20 H 24 H Respiratory Effort Short of Breath Respiratory Depth Respiratory Pattern Tachypnea Blood Pressure 81/48 L 94/53 L Blood Pressure Mean 59 66 Pulse Ox 98 98 Oxygen Delivery Method Trach Collar Oxygen Flow Rate (L/min) 5 01/26/23 20:30 Temperature Temperature Source Pulse Rate Respiratory Rate Respiratory Effort Respiratory Depth Respiratory Pattern Blood Pressure 85/49 L Blood Pressure Mean 61 Pulse Ox Oxygen Delivery Method Oxygen Flow Rate (L/min) MDM MDM MDM Narrative Medical decision making narrative: This patient with intermittent tachycardia, fever, and tenuous blood pressure presents with concern for sepsis and aspiration pneumonia. Comprehensive work- up was pursued. Although he had a chest x-ray approximately 4 hours ago, I do feel repeat is indicated to see if infiltrate has developed. His pulse ox is 94 to 95% on a trach collar. He will be given Tylenol per his PEG tube for his fever and sepsis work-up pursued. He will be started on Unasyn for aspiration. Additionally, CBC and CMP were already performed along with 2 sets of blood cultures. These will be canceled from the sepsis work-up. I still want a lactic acid, and I reviewed his laboratory work from earlier today and his white count increased to 12,000. At this time, I do feel that he will need to be readmitted to the hospital for sepsis and aspiration pneumonia given his fever, elevated white count, and elevated heart rate. EKG was obtained and interpreted by myself independently as normal sinus rhythm at 98 bpm without ectopy or acute ST changes. No STEMI. I reviewed his laboratory work and his CBC as stated previously showed that his white count was elevated above 12,000. His CMP was remarkable only for chronic kidney injury. INR obtained here and is normal at 1.4, lactic acid is normal at 0.6. Urinalysis is negative for infection with 0-5 WBCs. Repeat chest x-ray interpreted by myself shows no significant change from previous, I reviewed the radiology report which confirms my independent interpretation. However, he will be treated for aspiration pneumonia with Unasyn. He experienced a decrease in his blood pressure to the 80s systolic but is still mentating. He was rebolused normal saline but in discussion with his significant other, she states that is the reason why he takes Midrin because he has consistently low blood pressures in the 80s systolic. At this point in time, I discussed patient with the hospitalist, Dr. Anand. He would like the patient in the ICU for further monitoring. His fever has come down to 99 ?F after Tylenol through his PEG. I will administer his Midrin. I do not feel that he will require vasopressors at this time. Disposition is admit to the ICU in guarded condition. History & Record Review Additional record(s) reviewed:: Prior inpatient record, Prior outpatient record and Prior labs Lab Data Attestation: I reviewed the patient's lab results. Labs: Laboratory Results - last 24 hr 01/26/23 19:16 PT 17.1 H INR 1.4 APTT 41.1 H Lactic Acid 0.6 Urine Color Yellow Urine Clarity Clear Urine pH 8.0 Ur Specific [place] 1.015 Urine Protein 100 H Urine Glucose (UA) Normal Urine Ketones 15 H Urine Occult Blood 25 H Urine Nitrite Negative Urine Bilirubin Negative Urine Urobilinogen Normal Ur Leukocyte Esterase 25 H Urine RBC 0-5 SEEN Urine WBC 0-5 SEEN Ur Squamous Epith Cells 0 SEEN Urine Bacteria 0 SEEN Urine Mucus 0 SEEN Radiography Diagnostic Testing: Clinical Impression(s) from Imaging Studies Chest X-Ray 01/26/23 19:21 IMPRESSION: No significant change compared to prior study. Electronically Signed: Tayo Armenta MD at 19:40 EDT , Management Discussion w/another healthcare provider: Hospitalist (Dr. Anand) Critical Care Time Critical Care Time: Yes Critical care time (excluding procedures): 30-74 minutes (32), Including time spent:, Discussing w/Patient &/or Family/Liquefaction And Regasification Helper, Discussing w/Consultants, Arranging Admission or Transfer and Performing Direct Patient Care at Bedside Discharge Plan Dx/Rx/DC Orders Clinical Impression: Aspiration pneumonia, History of tracheostomy, Chronic hypotension, Acute and chronic respiratory failure with hypoxia, Sepsis Disposition Disposition: Acute Care [facility]
[2023-01-26] MEDS: 0.9% Normal Saline (1000mL) 1,000 ML 999 ML IV ×2 (19:20→20:34)
[2023-01-26] MEDS: Ampicillin/Sulbactam 3 GM in 0.9% Normal Saline (100mL MB+) 100 ML IV (19:20)
--- NOTE | 2023-01-26 19:21 | RAD_ITS ---
INDICATION: fever EXAMINATION/TECHNIQUE: X-RAY - XR Chest 1 View COMPARISON: Today at 3:41 PM. FINDINGS: Tracheostomy. Stable chest port. Cardiac silhouette stable. Persistent silhouetting of left hemidiaphragm. Appearance of left lung not significantly changed from prior study. Trace left effusion. There is a small right-sided pleural effusion and persistent basilar airspace disease without significant change compared to prior study. Radiodensity projects over the left abdomen which could be related to G-tube. RAD/Chest 1 View (Portable) IMPRESSION: No significant change compared to prior study. Electronically Signed: Tayo Armenta MD at 19:40 EDT ,
[2023-01-26] MEDS: Acetaminophen 650 MG/20 ML UDC GT (19:25)
[2023-01-26 19:28] LABS: Bacteria 0 SEEN /hpf (None Seen); Color, Urine Yellow (Yellow); Glucose, Dipstick Normal (Normal); Ketone-Dipstick 15 mg/dl (Negative); Leukocyte Esterase-Dipstick 25 /ul (Negative); Mucous, Urine 0 SEEN /hpf (<or=2+); Nitrite-Dipstick Negative (Negative); Occult Blood-Urine 25 /ul (Negative); Protein-Dipstick 100 mg/dl (Negative); Specific Gravity, Urine 1.015 (1.002-1.030); Squamous Epithelial Cells - UA 0 SEEN /hpf (0-5); Urine Bilirubin Dipstick Negative (Negative); Urine Clarity Clear (Clear); Urine Urobilinogen Normal (Normal)
[2023-01-26 19:32] LABS: International Normalized Ratio 1.4; Prothrombin Time (Protime)PT. 17.1 SECONDS (11.7-14.9)
[2023-01-26 19:33] LABS: Partial Thromboplast Time 41.1 Seconds (24.1-36.2)
[2023-01-26 19:58] LABS: Red Blood Cells-Urine 0-5 SEEN /hpf (0-5); White Blood Cells 0-5 SEEN /hpf (0-5)
[2023-01-26 20:54] LABS: Lactic Acid 0.6 mmol/L (0.4-1.9)
--- NOTE | 2023-01-26 21:37 | HP.PCM.HOS_ITS ---
HPI - General General Date of Admission: 01/26/23 Date of Service: 01/26/23 Chief Complaint: Patient vomited in TCU with fever today and concern for aspiration pneumonia. Patient has tracheostomy HPI Narrative SERENITY ESTRADA, dixie a 77 M was brought to ED from TCU after he vomited earlier today in the morning and afternoon. Patient spiked fever 102.8 Fahrenheit persistent. Patient baseline blood pressure although low in the upper 90s to low 100,.further to 70s to low 80s in ED. Patient was tachypneic, in respiratory distress, on trach collar 5 L of oxygen, tracheostomy. Patient is increased tracheostomy secretions/sputum production which is thick yellow in color.101 patient on midodrine 15 mg 3 times daily. Patient was recently discharged after prolonged admission to TCU for MRSA, Klebsiella and Pseudomonas pneumonia with bacteremia and was discharged on IV meropenem and vancomycin As per ID recommendation. Patient also has chronic hypoxic respiratory failure on 5 L of oxygen with history of COPD and pleural effusion. His oxygen requirement has not increased. Chest x-ray imaging reviewed and shows bilateral lower lobes atelectasis/infiltrate suspicion for aspiration pneumonia. Labs and EKG reviewed and discussed in assessment plan. Patient was given IV fluid 1 L bolus and Unasyn and further admitted in ICU. 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 Shortness of breath on exertion Thrush, oral Tracheostomy in place tracheotomy and laryngeal biopsy Wears glasses Home Medications levothyroxine 50 mcg tablet See Rx Instructions .Route .COMPLEX thyroid #90 TABLETS 06/22/22 [Rx Last Taken Unknown] omeprazole 20 mg capsule,delayed release 20 mg PO DAILY reflux 06/25/22 [History Last Taken Unknown] budesonide 0.5 mg/2 mL suspension for nebulization 0.5 mg (2 mL) inhalation BID breathing #120 mL 08/13/22 [Rx Last Taken Unknown] ipratropium 0.5 mg-albuterol 3 mg (2.5 mg base)/3 mL nebulization soln 3 ml inhalation Q4H PRN shortness of breath or wheezing #180 mL 08/14/22 [Rx Last Taken Unknown] gabapentin 300 mg capsule 300 mg feeding tube BID nerve pain #60 caps 11/30/22 [Rx Last Taken Unknown] amiodarone 200 mg tablet 200 mg PO BID ABNORMAL RHYTHM 30 days #60 tabs 01/25/23 [Rx Last Taken Unknown] apixaban 5 mg tablet (Eliquis) 2.5 mg (1/2 x 5 mg) PO BID DYSRHYTHMIA 30 days #30 tabs 01/25/23 [Rx Last Taken Unknown] lactose-reduced food with fiber 0.06 gram-1.5 kcal/mL oral liquid (Jevity 1.5 Dipesh) 300 ml G-tube 4X/DAY #0 mL 01/25/23 [Rx Last Taken Unknown] midodrine 5 mg tablet 15 mg (3 x 5 mg) G-tube TIDCM HYPOTENSION 30 days #270 tabs 01/25/23 [Rx Last Taken Unknown] guaifenesin 100 mg/5 mL oral liquid mg PO PRN COUGH 01/26/23 [History Last Taken Unknown] menthol 0.44 %-zinc oxide 20.6 % topical ointment (CalaSoothe) 1 applic topical DAILY 01/26/23 [History Last Taken Unknown] meropenem 1 gram intravenous solution 1 g IV Q12H INFECTION 01/26/23 [History Last Taken Unknown] nystatin 100,000 unit/mL oral suspension 5 ml PO Q6H ANTIFUNGAL 01/26/23 [History Last Taken Unknown] pantoprazole 40 mg intravenous solution 40 mg IV DAILY KIRAN 01/26/23 [History Last Taken Unknown] Allergy/AdvReac Type Severity Reaction Status Date / Time venom-wasp Allergy Anaphylaxis Verified 01/13/23 17:29 pseudoephedrine HCl AdvReac Severe Unknown Verified 01/13/23 17:29 [From Sudafed] Antihistamines - Alkylamine AdvReac Mild Other Verified 01/13/23 17:29 Family History Father Colon cancer Hypertension Mother Hypertension Surgical History History of gastrostomy History of surgery History of tracheostomy Hx of tonsillectomy S/P percutaneous endoscopic gastrostomy (PEG) tube placement S/P TURP Social History household members: spouse Smoking Status: Former smoker quit date: 04/08/17 pack-years: 55 alcohol intake: never substance use type: does not use ROS ROS Narrative 14 system ROS limited and incomplete due to tracheostomy. Patient also in respiratory distress. As per significant others, patient has a speech valve but currently due to respiratory distress and increased secretions is taken out. He follows Dr. Baumann. Patient is also generalized weak. Has PEG tube. History of fall and a scratchy leg. Vital Signs Vital Signs Vital Signs: 01/26/23 18:41 01/26/23 18:45 01/26/23 18:55 Temperature 102.7 F H 102.7 F H Temperature Source Oral Oral Pulse Rate 101 H 99 Respiratory Rate 18 19 H Respiratory Effort Respiratory Depth Respiratory Pattern Blood Pressure 108/57 L 108/57 L Blood Pressure Mean 74 74 Pulse Ox 94 95 95 Oxygen Delivery Method Trach Collar Trach Collar Trach Collar Oxygen Flow Rate (L/min) 5 5 5 01/26/23 19:40 01/26/23 19:45 01/26/23 20:00 Temperature 99.6 F H Temperature Source Oral Pulse Rate 92 87 Respiratory Rate 23 H 24 H Respiratory Effort Short of Breath Respiratory Depth Shallow Respiratory Pattern Tachypnea Blood Pressure 104/59 L 107/60 Blood Pressure Mean 74 75 Pulse Ox 98 98 Oxygen Delivery Method Trach Collar Trach Collar Trach Collar Oxygen Flow Rate (L/min) 5 5 5 01/26/23 21:00 01/26/23 20:09 01/26/23 20:30 Temperature 98.9 F Temperature Source Oral Pulse Rate 74 87 Respiratory Rate 20 H 24 H Respiratory Effort Respiratory Depth Respiratory Pattern Blood Pressure 81/48 L 94/53 L 85/49 L Blood Pressure Mean 59 66 61 Pulse Ox 98 98 Oxygen Delivery Method Trach Collar Oxygen Flow Rate (L/min) 5 Weight Weight: 158 lb 1.143 oz Body Mass Index (BMI) 25.4 Physical Exam Narrative General: Alert, seems oriented although could not be ascertained because of tracheostomy, Cooperative HEENT: Atraumatic, PERRLA, EOMI, Normocephalic Oral: Oral mucosa dry. No Gingival or Mucosal Lesions/ Ulcerations Neck: Tracheostomy collar with increased secretions purulent in nature. Supple, No JVD, Negative Carotid Bruits Lungs: Air entry diminished in bilateral lung bases. Bilateral lower lobes coarse crepitations. Cardiovascular: Regular rate, Regular Rhythm, Normal S1, Normal S2, No murmurs Abdomen: Buttonhole PEG tube. No oral intake. Bowel Sounds Present, Soft, Non Tender, Non-Distended : No renal angle tenderness. No suprapubic tenderness. Extremities: No edema, Capillary Refill Less than 3 Seconds Skin: Mild abrasion in legs from previous fall. No obvious ulcer. Musculoskeletal: Moderate to severe muscle atrophy of extremities. Loss of subcutaneous fat. Severe protein calorie malnutrition. No Tenderness to Palpation of Joints or Extremities Neurological: Cranial nerves II-XII grossly intact, DTR 2+/4. No acute focal neurological deficit. Muscle power, 4+/5 at knees and hip joints Psych/Mental Status: Flat affect. Results Lab / Micro Data Labs: Laboratory Results - last 24 hr 01/26/23 19:16: PT 17.1 H, INR 1.4, APTT 41.1 H, Lactic Acid 0.6, Urine Color Yellow, Urine Clarity Clear, Urine pH 8.0, Ur Specific [place] 1.015, Urine Protein 100 H, Urine Glucose (UA) Normal, Urine Ketones 15 H, Urine Occult Blood 25 H, Urine Nitrite Negative, Urine Bilirubin Negative, Urine Urobilinogen Normal, Ur Leukocyte Esterase 25 H, Urine RBC 0-5 SEEN, Urine WBC 0-5 SEEN, Ur Squamous Epith Cells 0 SEEN, Urine Bacteria 0 SEEN, Urine Mucus 0 SEEN Micro: Microbiology 01/26/23 19:12 Nasal Secretion SARS-CoV-2 & FLU Antigen (Rapid) - Final Radiology Impression Chest X-Ray 01/26/23 19:21 IMPRESSION: No significant change compared to prior study. Electronically Signed: Tayo Armenta MD at 19:40 EDT , Assessment & Plan Assessment/Plan (1) Aspiration pneumonia: QUALIFIERS: Laterality: right Lung location: lower lobe of lung (2) Chronic hypotension: PLAN: Plan 1. Chronic hypoxic respiratory failure with right lower lobe pneumonia most likely aspiration from vomiting: Patient is being admitted in ICU. Chest x-ray mutilative reviewed and shows right lower lobe infiltrate. Left lung base also not clear. Based on the previous culture of his sputum, patient is started on IV vancomycin and meropenem. Pneumonia work-up including sputum culture, blood cultures x2 and urinary antigens. Patient blood pressure is low but his baseline BP has been low in the upper 90s to low 100 on midodrine 15 mg 3 times daily. BP dropped but not more than 40 mmHg therefore does not merit definition of acute hypotension. Lactic acid normal. Oxygen requirement has not increased although patient is tachypneic and in respiratory distress.Mild leukocytosis. Will need close monitoring. IV fluid resuscitation. Admission Discharge Rn consult requested. 2. Chronic hypotension: Continue midodrine 15 mg 3 times daily. 3. Cardiac arrhythmia/ventricular arrhythmia: Continue amiodarone. 2D echo from 12/13/2022 shows EF 35 to 40% with global hypokinesia. Patient denies chest pain or anginal-like symptoms. 4. Hypothyroidism: On Synthroid through G-tube. 5. 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 Trach care. Patient follows Dr. Baumann. 6. Chronic macrocytic anemia and chronic severe protein calorie malnutrition: Patient hemoglobin stays between 9 to 10 g. MCV 102.3. Platelet count normal. Patient on Jevity continued. Fixed Wing Aircraft Flight Mechanic consult. Patient has moderate muscle atrophy and loss of subcutaneous fat over temporal facial region, subclavicular. 7. Peripheral neuropathy on gabapentin: 8. CKD stage IIIb: Patient last BUN/Creatinine 20/1.38. Currently 27/1.41. Baseline creatinine is around 1.25 VTE prophylaxis on apixaban. Living will/advanced directive/end of life care: Patient does not have living will or advanced directive. His significant other is power of trial attorney for health. After discussion of benefits/risks procedures involved with full code, DNR CC arrest and DNR CC, the patient and significant other's opted for full code. Patient does want artificial life support including intubation, tube feed, ventilator and/chest compression, central venous catheter, vasopressor and DC shock if needed Total time spent in [id number] encounter in discussion of advanced directive 17 minutes. Microbiology Past 72 Hours 01/26/23 19:12 Nasal Secretion SARS-CoV-2 & FLU Antigen (Rapid) - Final Laboratory Results 01/26/23 19:16: PT 17.1 H, INR 1.4, APTT 41.1 H, Lactic Acid 0.6, Urine Color Yellow, Urine Clarity Clear, Urine pH 8.0, Ur Specific [place] 1.015, Urine Protein 100 H, Urine Glucose (UA) Normal, Urine Ketones 15 H, Urine Occult Blood 25 H, Urine Nitrite Negative, Urine Bilirubin Negative, Urine Urobilinogen Normal, Ur Leukocyte Esterase 25 H, Urine RBC 0-5 SEEN, Urine WBC 0-5 SEEN, Ur Squamous Epith Cells 0 SEEN, Urine Bacteria 0 SEEN, Urine Mucus 0 SEEN Charges/Coding Visit Charges Inpatient E&M: 71989 Init Hosp L3 Procedures Hospitalists Procedures: 82542 Advncd Care Plan 30 Min
[2023-01-26] MEDS: Midodrine HCl 5 MG Tablet 10 MG GT (21:48)
[2023-01-26] MEDS: 0.9% Normal Saline (250mL Bag) 250 ML 15 ML IV (22:53)
[2023-01-26] MEDS: 0.9% Normal Saline (1000mL) 1,000 ML 100 ML IV (22:53)
[2023-01-26] MEDS: APIXABAN 2.5 MG TABLET (WCH) GT (23:07)
[2023-01-26] MEDS: Meropenem 1 GM in 0.9% Normal Saline (100mL MB+) 100 ML IV (23:07)
[2023-01-26 23:10] LABS: CPK Total, Creatine Kinase 18 U/L (39-308); Magnesium 2.9 mg/dL (1.6-2.6)
[2023-01-26] MEDS: Vancomycin HCl 1,500 MG in 0.9% Normal Saline (500mL Bag) 500 ML 250 MG IV (23:29)
--- NOTE | 2023-01-26 23:42 | PCM.RX.CS ---
Consult Antibiotic Management Pharmacy has been consulted to manage selected antiobiotic: Vancomycin Type of Intervention Type of Consult: New start Microbiology Microbiology: Microbiology 01/26/23 19:16 Urine, Clean Catch Legionella Antigen - Final 01/26/23 19:16 Urine, Clean Catch Streptococcus pneumoniae Antigen (M - Final 01/26/23 19:12 Nasal Secretion SARS-CoV-2 & FLU Antigen (Rapid) - Final Dosing Weight Weight used for dosin.2 kg Estimated Creatinine Clearance Estimated Creatinine Clearance: 36 Goal Trough Goal Trough: 15-20 mcg/mL Pharmacy Plan for Drug Dosing Pharmacy Plan for Drug Dosing: Pharmacy Service will continue to monitor and adjust dosing as required. Follow-Up Labs Follow-Up Labs: Trough: Vancomycin Date/Time Labs Ordered Labs to be done on [date and time ordered]: 01/28 @ 2519
[2023-01-27] VITALS (39 sets, daily range): BP systolic 73–126; BP diastolic 47–82; PULSE 58–93; RESP 12–28; TEMP 36.2–36.8; O2SAT 92–100; BMI 23.0
[2023-01-27 00:26] LABS: M R Staph aureus DNA By PCR Negative (Negative); Probe Check PASS; Specimen Processing Control PASS
[2023-01-27] MEDS: Norepinephrine 8 MG in 0.9% Normal Saline (250mL Bag) 242 ML 9.4 MG CONT INF (01:05)
[2023-01-27 04:55] LABS: Absolute Lymphocyte Count 2.32 X10^3/uL (0.83-4.51); Absolute Neutrophil Count 6.4 X10^3/uL (2.0-7.7); Basophil# 0.07 X10^3/uL; Basophil% 0.7 % (0-1); Eosinophil# 0.15 X10^3/uL; Eosinophils% 1.5 % (0-5); Hematocrit 26.5 % (40-54); Hemoglobin 7.9 g/dL (13.0-16.5); Lymphocyte # 2.32 X10^3/ul (0.83-4.51); Lymphocyte % 23.9 % (19-41); Mean Corp Hgb Conc 29.8 g/dL (32-36); Mean Corpuscular Hgb 30.6 pg (27.0-32.0); Mean Corpuscular Volume 102.7 fL (80-94); Mean Platelet Vol. 10.2 fl (6.2-12.0); Monocyte# 0.68 X10^3/uL; NRBC Flagged by Analyzer 0 % (0-5); Neutrophil # 6.39 X10^3/uL (2.7-7.7); Platelet Count 250 K/mm3 (150-450); RBC Distribution Width CV 16.9 % (11.6-14.6); RBC Distribution Width SD 63.4 fl (35.1-43.9); Red Blood Count 2.58 M/mm3 (4.6-6.2); White Blood Count 9.7 K/mm3 (4.4-11.0)
[2023-01-27 05:10] LABS: Anion Gap 2 (5-15); BUN 25 mg/dL (7-18); BUN/Creat Ratio 20.3 RATIO (10-20); Calcium,Total 8.1 mg/dL (8.5-10.1); Chloride 111 mmol/L (98-107); Creatinine, Serum 1.23 mg/dL (0.70-1.30); EST Glomerular Filtration Rate 61 mL/min (>60); Est Glom Filt Rate - Afr Amer 74 mL/min (>60); Estimated Creatinine Clearance 46.83 ml/min; Glucose 107 mg/dL (74-106); Phosphorus 2.1 mg/dL (2.5-4.9); Potassium 4.5 mmol/L (3.5-5.1); Sodium Level 143 mmol/L (136-145)
--- NOTE | 2023-01-27 05:53 | EX.PCM.CONCC ---
Assessment & Plan Assessment/Plan (1) Acute and chronic respiratory failure with hypoxia: PLAN: Plan RECOMMENDATIONS: 1. Wean oxygen to maintain saturations at or above 90%. 2. Continue broad-spectrum antimicrobials. Obtain infectious diseases consultation. 3. Continue scheduled midodrine and Levophed to maintain a systolic blood pressure at or above 90 mmHg. 4. Continue bronchodilators. 5. Maintain aspiration precautions. 6. Nutritional support via G-tube. Obtain nutrition consultation for tube feed recommendations. 7. Continue aggressive bronchopulmonary hygiene. IMPRESSIONS: 1. Acute on chronic hypoxemic respiratory failure The patient is acute decompensation once again appears to be secondary to an episode of vomiting. He has been placed on empiric antimicrobials once again. Plan to continue current supportive measures, including aggressive bronchopulmonary hygiene and bronchodilators. Continue supplemental oxygen to maintain saturations at or above 90%. Nutrition consultation will be obtained for tube feeding recommendations. Ultimately, the patient may need to be evaluated by gastroenterology and/or placed on a trial of prokinetic agent over concerns for underlying gastroparesis, given his history of recurrent vomiting. Infectious diseases consultation will be obtained, given his history of polymicrobial infection, with varying sensitivities. 2. Hypotension The patient has a known history of chronic hypotension, for which he is prescribed outpatient scheduled midodrine. I suspect his current hemodynamic instability is likely secondary to intravascular volume depletion. However, judicious use of fluids will need to be employed given his underlying cardiomyopathy with an ejection fraction last noted to be 35% in December 2022. I agree with continuing low-dose Levophed for now. I would recommend targeting a systolic blood pressure at or above 90 mmHg. 3. 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 Continue supportive care as noted above. Recommend PT/OT evaluations. Code Status: DNR CCA with intubation. This was discussed with the patient at the bedside this morning. This note was generated with [employer] dictation software. It may contain incorrect words, spelling, and punctuation that were not noted in checking the note before signing. HPI Consult Data Date of Consult: 01/27/23 HPI Narrative Reason for Consultation: Hypotension HPI Narrative: The patient is a 77-year-old male, with a history as outlined below, who presented to the emergency department from the transitional care unit with fever and concern for aspiration pneumonia. The patient was just admitted to the hospital earlier this month on January 13 with declining functional status, shortness of breath and hypoxemia. The patient has a history of frequent hospitalizations related to pneumonia. The patient has a history of hypopharyngeal cancer, which was diagnosed in 2014. The patient was initially treated with chemotherapy and radiation, and did require eventual tracheostomy placement. He then developed progressive disease with mediastinal adenopathy and lung nodules. He was subsequently started on Keytruda. The patient has a long-standing history of dysphagia with chronic aspiration, and therefore also underwent a PEG tube placement. The patient is currently followed chronically by Dr. Max of oncology. The patient has a [id number] smoking history. He utilizes supplemental oxygen at 4 L/min at his baseline. He states that he receives all of his nutritional support via his PEG tube. On presentation to the emergency department, the patient was documented to have a temperature of 102.7 ?F. His hemodynamic status was rather tenuous at presentation. Initial laboratory evaluation revealed a white blood cell count of 12,600. Lactate was within normal limits. Creatinine was normal at 1.23. Urine analysis was noncontributory. Chest x-ray demonstrated chronic changes with a small right-sided pleural effusion and persistent basilar airspace opacity. Of note, the patient's last sputum culture dated January 14 was positive for Klebsiella and Pseudomonas. The patient received supplemental IV fluids and antimicrobials. The patient does have low/baseline blood pressures, on scheduled midodrine as an outpatient. Although he was fluid resuscitated, the patient remained hypotensive and he was ultimately placed on Levophed. This morning, the patient did confirm that he typically receives bolus tube feeds. He again confirmed that he vomited several times in the transitional care unit, which likely led to his decompensation. He has been hospitalized on multiple occasions. I had a theresa discussion with the patient this morning regarding goals of care. He is amenable to transitioning from full code to DNR CCA with intubation. 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 Shortness of breath on exertion Thrush, oral Tracheostomy in place tracheotomy and laryngeal biopsy Wears glasses Home Medications levothyroxine 50 mcg tablet See Rx Instructions .Route .COMPLEX thyroid #90 TABLETS 06/22/22 [Rx Last Taken Unknown] omeprazole 20 mg capsule,delayed release 20 mg PO DAILY reflux 06/25/22 [History Last Taken Unknown] budesonide 0.5 mg/2 mL suspension for nebulization 0.5 mg (2 mL) inhalation BID breathing #120 mL 08/13/22 [Rx Last Taken Unknown] ipratropium 0.5 mg-albuterol 3 mg (2.5 mg base)/3 mL nebulization soln 3 ml inhalation Q4H PRN shortness of breath or wheezing #180 mL 08/14/22 [Rx Last Taken Unknown] gabapentin 300 mg capsule 300 mg feeding tube BID nerve pain #60 caps 11/30/22 [Rx Last Taken Unknown] amiodarone 200 mg tablet 200 mg PO BID ABNORMAL RHYTHM 30 days #60 tabs 01/25/23 [Rx Last Taken Unknown] apixaban 5 mg tablet (Eliquis) 2.5 mg (1/2 x 5 mg) PO BID DYSRHYTHMIA 30 days #30 tabs 01/25/23 [Rx Last Taken Unknown] lactose-reduced food with fiber 0.06 gram-1.5 kcal/mL oral liquid (Jevity 1.5 Dipesh) 300 ml G-tube 4X/DAY #0 mL 01/25/23 [Rx Last Taken Unknown] midodrine 5 mg tablet 15 mg (3 x 5 mg) G-tube TIDCM HYPOTENSION 30 days #270 tabs 01/25/23 [Rx Last Taken Unknown] guaifenesin 100 mg/5 mL oral liquid mg PO PRN COUGH 01/26/23 [History Last Taken Unknown] menthol 0.44 %-zinc oxide 20.6 % topical ointment (CalaSoothe) 1 applic topical DAILY 01/26/23 [History Last Taken Unknown] meropenem 1 gram intravenous solution 1 g IV Q12H INFECTION 01/26/23 [History Last Taken Unknown] nystatin 100,000 unit/mL oral suspension 5 ml PO Q6H ANTIFUNGAL 01/26/23 [History Last Taken Unknown] pantoprazole 40 mg intravenous solution 40 mg IV DAILY KIRAN 01/26/23 [History Last Taken Unknown] Allergy/AdvReac Type Severity Reaction Status Date / Time venom-wasp Allergy Anaphylaxis Verified 01/13/23 17:29 pseudoephedrine HCl AdvReac Severe Unknown Verified 01/13/23 17:29 [From [facility]] Antihistamines - Alkylamine AdvReac Mild Other Verified 01/13/23 17:29 Family History Father Colon cancer Hypertension Mother Hypertension Surgical History History of gastrostomy History of surgery History of tracheostomy Hx of tonsillectomy S/P percutaneous endoscopic gastrostomy (PEG) tube placement S/P TURP Social History household members: spouse Smoking Status: Former smoker quit date: 04/08/17 pack-years: 55 alcohol intake: never substance use type: does not use ROS ROS Narrative 10 systems were reviewed with pertinent positives as noted in the HPI above. Physical Exam Const alert and no apparent distress Constitutional Narrative: Chronically frail and ill-appearing. General Appearance: cooperative HEENT normocephalic and head/scalp atraumatic Eyes PERRL, EOMs intact bilaterally and conjunctivae normal Neck Neck Narrative: Stable tracheostomy site. Chest inspection of chest normal Resp normal respiratory effort Auscultation: rhonchi and diminished lung sounds Cardio regular rate, regular rhythm, S1 normal heart sound and S2 normal heart sound GI soft to palpation and non-tender Inspection: GI tube present Extremity no clubbing, cyanosis or edema Skin no rashes or lesions noted Neuro CN's II-XII intact bilaterally and no focal motor deficits Psych Mood & Affect: flat affect Lab / Micro Data 01/27/23 04:45 01/27/23 04:45 Labs: Laboratory Results - last 24 hr 01/26/23 19:16: PT 17.1 H, INR 1.4, APTT 41.1 H, Lactic Acid 0.6, Urine Color Yellow, Urine Clarity Clear, Urine pH 8.0, Ur Specific [place] 1.015, Urine Protein 100 H, Urine Glucose (UA) Normal, Urine Ketones 15 H, Urine Occult Blood 25 H, Urine Nitrite Negative, Urine Bilirubin Negative, Urine Urobilinogen Normal, Ur Leukocyte Esterase 25 H, Urine RBC 0-5 SEEN, Urine WBC 0-5 SEEN, Ur Squamous Epith Cells 0 SEEN, Urine Bacteria 0 SEEN, Urine Mucus 0 SEEN 01/26/23 22:40: Magnesium 2.9 H, Total Creatine Kinase 18 L, MRSA (PCR) Negative 01/27/23 04:45: WBC 9.7, RBC 2.58 L, Hgb 7.9 L, Hct 26.5 L, MCV 102.7 H, MCH 30.6, MCHC 29.8 L, RDW Std Deviation 63.4 H, RDW Coeff of Oz 16.9 H, Plt Count 250, MPV 10.2, Immature Gran % (Auto) 0.900, Neut % (Auto) 66.0, Lymph % (Auto) 23.9, [place] % (Auto) 7.0, Eos % (Auto) 1.5, Baso % (Auto) 0.7, Absolute Neuts (auto) 6.4, Absolute Lymphs (auto) 2.32, Nucleated RBC % 0, Sodium 143, Potassium 4.5, Chloride 111 H, Carbon Dioxide 30.0, Anion Gap 2 L, BUN 25 H, Creatinine 1.23, Estim Creat Clear Calc 46.83, Est GFR (MDRD) Af Amer 74, Est GFR (MDRD) Non-Af 61, BUN/Creatinine Ratio 20.3 H, Glucose 107 H, Calcium 8.1 L, Phosphorus 2.1 L Micro: Microbiology 01/27/23 00:28 Mucosa - Nose Respiratory Panel (PCR) - Final 01/27/23 00:28 Mucosa - Nose Coronavirus COVID-19 PCR - Final 01/26/23 19:16 Urine, Clean Catch Legionella Antigen - Final 01/26/23 19:16 Urine, Clean Catch Streptococcus pneumoniae Antigen (M - Final 01/26/23 19:12 Nasal Secretion SARS-CoV-2 & FLU Antigen (Rapid) - Final Radiology Impression Chest X-Ray 01/26/23 19:21 IMPRESSION: No significant change compared to prior study. Electronically Signed: Tayo Armenta MD at 19:40 EDT , Charges/Coding Visit Charges Inpatient E&M: 15466 Init Hosp L3
[2023-01-27] MEDS: Levothyroxine 50 MCG Tablet GT (06:24)
[2023-01-27] MEDS: Budesonide Respules 0.5 MG/2 ML AMPUL.NEB. INHALATION (07:13)
--- NOTE | 2023-01-27 07:43 | PCM.PN.HOSP ---
Reason for Visit Reason for Visit: Diagnoses Other hypotension (01/26/23) Pneumonitis due to inhalation of food and vomit (01/26/23) Acute and chronic respiratory failure with hypoxia (01/26/23) Subjective Subjective Patient was seen and examined today, he appears to be resting comfortably, he is currently on 5 L oxygen via trach mask. Nursing states that the patient's CODE STATUS was changed to a DNR CC arrest with intubation Objective Data Objective Data Vital Signs: Vital Signs Temp Pulse Resp BP Pulse Ox O2 Del Method O2 Flow Rate 97.1 F L 71 18 91/53 L 93 Trach Collar 5 01/27/23 03:00 01/27/23 07:20 01/27/23 07:20 01/27/23 07:00 01/27/23 07:20 01/27/23 07:20 01/27/23 07:20 Oxygen Flow Rate (L/min) 5 Oxygen Delivery Method Trach Collar Weight: 64.8 kg Body Mass Index (BMI) 23.0 Intake & Output: Intake and Output for Last 24 Hours 01/25/23 01/26/23 01/27/23 23:59 23:59 23:59 Intake Total 2113.75 / 2113.75 691.40 / 691.40 Output Total 500 / 500 Balance 2113.75 / 2113.75 191.40 / 191.40 Lab / Micro Data 01/27/23 04:45 01/27/23 04:45 Labs: Laboratory Results - last 24 hr 01/26/23 19:16: PT 17.1 H, INR 1.4, APTT 41.1 H, Lactic Acid 0.6, Urine Color Yellow, Urine Clarity Clear, Urine pH 8.0, Ur Specific [place] 1.015, Urine Protein 100 H, Urine Glucose (UA) Normal, Urine Ketones 15 H, Urine Occult Blood 25 H, Urine Nitrite Negative, Urine Bilirubin Negative, Urine Urobilinogen Normal, Ur Leukocyte Esterase 25 H, Urine RBC 0-5 SEEN, Urine WBC 0-5 SEEN, Ur Squamous Epith Cells 0 SEEN, Urine Bacteria 0 SEEN, Urine Mucus 0 SEEN 01/26/23 22:40: Magnesium 2.9 H, Total Creatine Kinase 18 L, MRSA (PCR) Negative 01/27/23 04:45: WBC 9.7, RBC 2.58 L, Hgb 7.9 L, Hct 26.5 L, MCV 102.7 H, MCH 30.6, MCHC 29.8 L, RDW Std Deviation 63.4 H, RDW Coeff of Oz 16.9 H, Plt Count 250, MPV 10.2, Immature Gran % (Auto) 0.900, Neut % (Auto) 66.0, Lymph % (Auto) 23.9, [place] % (Auto) 7.0, Eos % (Auto) 1.5, Baso % (Auto) 0.7, Absolute Neuts (auto) 6.4, Absolute Lymphs (auto) 2.32, Nucleated RBC % 0, Sodium 143, Potassium 4.5, Chloride 111 H, Carbon Dioxide 30.0, Anion Gap 2 L, BUN 25 H, Creatinine 1.23, Estim Creat Clear Calc 46.83, Est GFR (MDRD) Af Amer 74, Est GFR (MDRD) Non-Af 61, BUN/Creatinine Ratio 20.3 H, Glucose 107 H, Calcium 8.1 L, Phosphorus 2.1 L Micro: Microbiology 01/27/23 00:28 Mucosa - Nose Respiratory Panel (PCR) - Final 01/27/23 00:28 Mucosa - Nose Coronavirus COVID-19 PCR - Final 01/26/23 19:16 Urine, Clean Catch Legionella Antigen - Final 01/26/23 19:16 Urine, Clean Catch Streptococcus pneumoniae Antigen (M - Final 01/26/23 19:12 Nasal Secretion SARS-CoV-2 & FLU Antigen (Rapid) - Final Radiography Diagnostic Testing: Radiology Impression Chest X-Ray 01/26/23 19:21 IMPRESSION: No significant change compared to prior study. Electronically Signed: Tayo Armenta MD at 19:40 EDT , Physical Exam Const alert and no apparent distress Constitutional Narrative: Patient appears older than stated age General Appearance: cooperative, well kempt and well developed Orientation / Consciousness: awake, oriented to person and oriented to place HEENT normocephalic, head/scalp atraumatic and moist oral mucous membranes HEENT Narrative: There is a tracheostomy present Head and Scalp: normocephalic Eyes PERRL, EOMs intact bilaterally and conjunctivae normal Neck supple, no JVD, thyroid normal and no carotid bruits General: trachea midline Resp normal respiratory effort and clear to auscultation bilaterally Auscultation: Negative for rales, rhonchi or wheezes Cardio regular rate, regular rhythm, S1 normal heart sound, S2 normal heart sound, no murmurs, no rub and no gallops GI normal to inspection, nondistended, normoactive bowel sounds, soft to palpation, non-tender and non-distended GI Narrative: PEG tube in place Extremity no clubbing, cyanosis or edema Skin no rashes or lesions noted General Skin Exam: no breakdown Neuro CN's II-XII intact bilaterally, no focal motor deficits and no sensory deficits noted Sensorium / Orientation: awake, alert, oriented to person and oriented to place Speech: speech normal Psych affect normal Assessment & Plan Assessment/Plan (1) Aspiration pneumonia: QUALIFIERS: Laterality: right Lung location: lower lobe of lung PLAN: Plan 1. 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
[2023-01-27] MEDS: Midodrine HCl 5 MG Tablet 15 MG GT ×3 (08:49→18:07)
[2023-01-27] MEDS: Amiodarone 200 MG Tablet GT ×2 (08:49→21:08)
[2023-01-27] MEDS: Pantoprazole Sodium 20 MG Tablet PO (08:49)
[2023-01-27] MEDS: APIXABAN 2.5 MG TABLET (WCH) GT ×2 (08:49→21:08)
[2023-01-27] MEDS: Gabapentin 300 MG Capsule GT ×2 (08:49→21:09)
[2023-01-27] MEDS: Jevity 1.5. 1,000 ML Bottle 300 ML GT ×3 (08:49→18:07)
[2023-01-27] MEDS: Meropenem 1 GM in 0.9% Normal Saline (100mL MB+) 100 ML IV ×2 (08:51→21:09)
[2023-01-27] MEDS: 0.9% Normal Saline (1000mL) 1,000 ML 100 ML IV ×2 (11:10→21:08)
[2023-01-27] MEDS: 0.9% Saline Lock 10 ML Syringe IV ×2 (21:13→21:23)
[2023-01-27] MEDS: Vancomycin HCl 750 MG in 0.9% Normal Saline (250mL Bag) 250 ML 250 MG IV (22:32)
[2023-01-28] VITALS (22 sets, daily range): BP systolic 90–141; BP diastolic 55–72; PULSE 63–93; RESP 10–79; TEMP 36.4–36.6; O2SAT 93–100; BMI 23.4
[2023-01-28] MEDS: Pantoprazole Sodium 40 MG in 0.9% Normal Saline (100mL MB+) 100 ML 330 MG IV (04:01)
[2023-01-28 04:29] LABS: Absolute Lymphocyte Count 1.73 X10^3/uL (0.83-4.51); Absolute Neutrophil Count 5.5 X10^3/uL (2.0-7.7); Basophil# 0.06 X10^3/uL; Basophil% 0.7 % (0-1); Eosinophil# 0.27 X10^3/uL; Eosinophils% 3.3 % (0-5); Hematocrit 25.3 % (40-54); Hemoglobin 7.4 g/dL (13.0-16.5); Lymphocyte # 1.73 X10^3/ul (0.83-4.51); Lymphocyte % 21.2 % (19-41); Mean Corp Hgb Conc 29.2 g/dL (32-36); Mean Corpuscular Hgb 30.1 pg (27.0-32.0); Mean Corpuscular Volume 102.8 fL (80-94); Mean Platelet Vol. 11.1 fl (6.2-12.0); Monocyte# 0.59 X10^3/uL; Monocyte% 7.2 % (0-10); NRBC Flagged by Analyzer 0 % (0-5); Neutrophil # 5.46 X10^3/uL (2.7-7.7); Neutrophil % 67.1 % (47-70); Platelet Count 237 K/mm3 (150-450); RBC Distribution Width CV 16.7 % (11.6-14.6); RBC Distribution Width SD 62.6 fl (35.1-43.9); Red Blood Count 2.46 M/mm3 (4.6-6.2); White Blood Count 8.2 K/mm3 (4.4-11.0)
[2023-01-28 04:46] LABS: ALB/GLOB Ratio 0.4 RATIO (0.9-2.4); AST(SGOT) 19 U/L (15-37); Alanine Aminotransfer ALT/SGPT 25 U/L (16-61); Albumin, Serum 1.4 g/dL (3.2-5.0); Alkaline Phosphatase 55 U/L (45-117); Anion Gap 2 (5-15); BUN 21 mg/dL (7-18); BUN/Creat Ratio 21.1 RATIO (10-20); Chloride 113 mmol/L (98-107); EST Glomerular Filtration Rate 78 mL/min (>60); Est Glom Filt Rate - Afr Amer 94 mL/min (>60); Globulin 3.8 g/dL (2.2-4.2); Glucose 79 mg/dL (74-106); Potassium 4.2 mmol/L (3.5-5.1); Protein, Total 5.2 g/dL (6.4-8.2); Sodium Level 143 mmol/L (136-145)
[2023-01-28] MEDS: Levothyroxine 50 MCG Tablet GT (05:49)
[2023-01-28] MEDS: Budesonide Respules 0.5 MG/2 ML AMPUL.NEB. INHALATION ×2 (06:55→20:37)
--- NOTE | 2023-01-28 07:09 | PCM.PN.INT ---
Assessment & Plan Assessment/Plan (1) Acute and chronic respiratory failure with hypoxia: PLAN: Plan RECOMMENDATIONS: 1. Wean oxygen to maintain saturations at or above 90%. 2. Continue broad-spectrum antimicrobials. Obtain infectious diseases consultation. 3. Continue scheduled midodrine. Discontinue IV fluids 4. Continue bronchodilators. 5. Maintain aspiration precautions. 6. Nutritional support via G-tube. Await nutrition consultation for tube feed recommendations. 7. Continue aggressive bronchopulmonary hygiene. 8. Okay to leave the intensive care unit from my perspective IMPRESSIONS: 1. Acute on chronic hypoxemic respiratory failure The patient is acute decompensation once again appears to be secondary to an episode of vomiting. He has been placed on empiric antimicrobials once again. Plan to continue current supportive measures, including aggressive bronchopulmonary hygiene and bronchodilators. Continue supplemental oxygen to maintain saturations at or above 90%. Nutrition consultation will be obtained for tube feeding recommendations. Ultimately, the patient may need to be evaluated by gastroenterology and/or placed on a trial of prokinetic agent over concerns for underlying gastroparesis, given his history of recurrent vomiting. Infectious diseases consultation will be obtained, given his history of polymicrobial infection, with varying sensitivities. Patient does appear to be responding well to aggressive pulmonary toileting. 2. Hypotension The patient has a known history of chronic hypotension, for which he is prescribed outpatient scheduled midodrine. I suspect his current hemodynamic instability is likely secondary to intravascular volume depletion. However, judicious use of fluids will need to be employed given his underlying cardiomyopathy with an ejection fraction last noted to be 35% in December 2022. We will discontinue IV fluids given improved blood pressure and anasarca. I would recommend targeting a systolic blood pressure at or above 90 mmHg. 3. 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 Continue supportive care as noted above. Recommend PT/OT evaluations. Code Status: DNR CCA with intubation. This was discussed with the patient at the bedside by Dr. Polo. This note was generated with [employer] dictation software. It may contain incorrect words, spelling, and punctuation that were not noted in checking the note before signing. Subjective Subjective Patient did well overnight. Patient has been off of pressors since yesterday at noon. Patient remains on antibiotics, but oxygenation status has been improving. Patient is not reporting any pain. Objective Data Objective Data Vital Signs: Vital Signs Temp Pulse Resp BP Pulse Ox O2 Del Method O2 Flow Rate 36.6 C 89 16 97/64 100 Trach Collar 3 01/28/23 00:00 01/28/23 06:57 01/28/23 06:57 01/28/23 06:00 01/28/23 06:57 01/28/23 06:57 01/28/23 06:57 Oxygen Flow Rate (L/min) 3 Oxygen Delivery Method Trach Collar Weight: 65.8 kg Body Mass Index (BMI) 23.4 Intake & Output: Intake and Output for Last 24 Hours 01/26/23 01/27/23 01/28/23 23:59 23:59 23:59 Intake Total 2113.75 / 2113.75 4450.48 / 4450.48 1218.33 / 1218.33 Output Total 1000 / 1000 100 / 100 Balance 2113.75 / 2113.75 3450.48 / 3450.48 1118.33 / 1118.33 Lab / Micro Data 01/28/23 04:22 01/28/23 04:22 Labs: Laboratory Results - last 24 hr 01/28/23 04:22: WBC 8.2, RBC 2.46 L, Hgb 7.4 L, Hct 25.3 L, MCV 102.8 H, MCH 30.1, MCHC 29.2 L, RDW Std Deviation 62.6 H, RDW Coeff of Oz 16.7 H, Plt Count 237, MPV 11.1, Immature Gran % (Auto) 0.500, Neut % (Auto) 67.1, Lymph % (Auto) 21.2, [place] % (Auto) 7.2, Eos % (Auto) 3.3, Baso % (Auto) 0.7, Absolute Neuts (auto) 5.5, Absolute Lymphs (auto) 1.73, Nucleated RBC % 0, Sodium 143, Potassium 4.2, Chloride 113 H, Carbon Dioxide 28.0, Anion Gap 2 L, BUN 21 H, Creatinine 1.00, Estim Creat Clear Calc 57.60, Est GFR (MDRD) Af Amer 94, Est GFR (MDRD) Non-Af 78, BUN/Creatinine Ratio 21.1 H, Glucose 79, Calcium 8.0 L, Total Bilirubin 0.30, AST 19, ALT 25, Alkaline Phosphatase 55, Total Protein 5.2 L, Albumin 1.4 L, Globulin 3.8, Albumin/Globulin Ratio 0.4 L Micro: Microbiology 01/27/23 00:28 Mucosa - Nose Respiratory Panel (PCR) - Final 01/27/23 00:28 Mucosa - Nose Coronavirus COVID-19 PCR - Final 01/26/23 19:16 Urine, Clean Catch Legionella Antigen - Final 01/26/23 19:16 Urine, Clean Catch Streptococcus pneumoniae Antigen (M - Final 01/26/23 19:12 Nasal Secretion SARS-CoV-2 & FLU Antigen (Rapid) - Final Physical Exam Const alert and no apparent distress Constitutional Narrative: Chronically frail and ill-appearing. Anasarca General Appearance: cooperative HEENT normocephalic and head/scalp atraumatic Eyes PERRL, EOMs intact bilaterally and conjunctivae normal Neck Neck Narrative: Stable tracheostomy site. JVD noted Chest inspection of chest normal Resp normal respiratory effort Auscultation: rhonchi and diminished lung sounds Cardio regular rate, regular rhythm, S1 normal heart sound and S2 normal heart sound GI soft to palpation and non-tender Inspection: GI tube present Extremity General Extremity: edema; Negative for clubbing Skin no rashes or lesions noted Neuro CN's II-XII intact bilaterally and no focal motor deficits Psych Mood & Affect: flat affect Charges/Coding Visit Charges Inpatient E&M: 67646 Subs Hosp L3
--- NOTE | 2023-01-28 07:49 | PCM.PN.HOSP ---
Reason for Visit Reason for Visit: Diagnoses Other hypotension (01/26/23) Pneumonitis due to inhalation of food and vomit (01/26/23) Acute and chronic respiratory failure with hypoxia (01/26/23) Subjective Subjective Cannot tolerate nystatin, vomits when he takes it. Objective Data Objective Data Vital Signs: Vital Signs Temp Pulse Resp BP Pulse Ox O2 Del Method O2 Flow Rate 36.6 C 85 15 101/62 100 Trach Collar 5 01/28/23 00:00 01/28/23 07:00 01/28/23 07:00 01/28/23 07:00 01/28/23 07:00 01/28/23 07:00 01/28/23 07:00 Oxygen Flow Rate (L/min) 5 Oxygen Delivery Method Trach Collar Weight: 65.8 kg Body Mass Index (BMI) 23.4 Intake & Output: Intake and Output for Last 24 Hours 01/26/23 01/27/23 01/28/23 23:59 23:59 23:59 Intake Total 2113.75 / 2113.75 4450.48 / 4450.48 1218.33 / 1218.33 Output Total 1000 / 1000 100 / 100 Balance 2113.75 / 2113.75 3450.48 / 3450.48 1118.33 / 1118.33 Lab / Micro Data 01/28/23 04:22 01/28/23 04:22 Labs: Laboratory Results - last 24 hr 01/28/23 04:22: WBC 8.2, RBC 2.46 L, Hgb 7.4 L, Hct 25.3 L, MCV 102.8 H, MCH 30.1, MCHC 29.2 L, RDW Std Deviation 62.6 H, RDW Coeff of Oz 16.7 H, Plt Count 237, MPV 11.1, Immature Gran % (Auto) 0.500, Neut % (Auto) 67.1, Lymph % (Auto) 21.2, [place] % (Auto) 7.2, Eos % (Auto) 3.3, Baso % (Auto) 0.7, Absolute Neuts (auto) 5.5, Absolute Lymphs (auto) 1.73, Nucleated RBC % 0, Sodium 143, Potassium 4.2, Chloride 113 H, Carbon Dioxide 28.0, Anion Gap 2 L, BUN 21 H, Creatinine 1.00, Estim Creat Clear Calc 57.60, Est GFR (MDRD) Af Amer 94, Est GFR (MDRD) Non-Af 78, BUN/Creatinine Ratio 21.1 H, Glucose 79, Calcium 8.0 L, Total Bilirubin 0.30, AST 19, ALT 25, Alkaline Phosphatase 55, Total Protein 5.2 L, Albumin 1.4 L, Globulin 3.8, Albumin/Globulin Ratio 0.4 L Micro: Microbiology 01/27/23 00:28 Mucosa - Nose Respiratory Panel (PCR) - Final 01/27/23 00:28 Mucosa - Nose Coronavirus COVID-19 PCR - Final 01/26/23 19:16 Urine, Clean Catch Legionella Antigen - Final 01/26/23 19:16 Urine, Clean Catch Streptococcus pneumoniae Antigen (M - Final 01/26/23 19:12 Nasal Secretion SARS-CoV-2 & FLU Antigen (Rapid) - Final Physical Exam Const alert and no apparent distress HEENT head/scalp atraumatic and moist oral mucous membranes HEENT Narrative: thrush Resp normal respiratory effort, no retractions, no use of accessory muscles and clear to auscultation bilaterally Cardio regular rate, regular rhythm, S1 normal heart sound and S2 normal heart sound GI normal to inspection, nondistended, normoactive bowel sounds, soft to palpation, non-tender and non-distended Assessment & Plan Assessment/Plan (1) Aspiration pneumonia: QUALIFIERS: Laterality: right Lung location: lower lobe of lung PLAN: H/o Klebsiella and Pseudomonas earlier this month. Repeat SCx Continue vancomycin and meropenem. ID on consult CXR shows chronic changes in RLL and bilateral pleural effusions. (2) Hypotension: PLAN: Acute on chronic Had been on norepinephrine gtt, off since around noon on 01/27. Chronically on midodrine, which is continued Caution with hydration given cardiomyopathy Goal SBP 90+ No septic shock. (3) Recurrent vomiting: PLAN: Pt states that it was from nystatin consider GES if persists. (4) Thrush: PLAN: start fluconazole through GT, for 7 days. (5) Diarrhea: PLAN: DW significant other. Pt take jevity 1.5 along with 1/4 banana and spoonful of protein powder. Those are mixed together in a drop man and given via GT. He has been on this regimen for years. I feel that it is appropriate to administer. Nutrition. 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 TF to PCU. Greater than 55 minutes of which greater than 50% of time was discussing with patient significant other about his dietary regimen, thrush, his intolerance to nystatin, and using another antifungal with fluconazole for thrush. Charges/Coding Visit Charges Inpatient E&M: 16562 Subs Hosp L3
[2023-01-28] MEDS: Amiodarone 200 MG Tablet GT ×2 (08:04→22:49)
[2023-01-28] MEDS: Jevity 1.5. 1,000 ML Bottle 300 ML GT ×4 (08:04→22:50)
[2023-01-28] MEDS: Midodrine HCl 5 MG Tablet 15 MG GT ×3 (08:04→17:32)
[2023-01-28] MEDS: Ferrous Sulfate 300 MG/5 ML UDC GT (08:05)
[2023-01-28] MEDS: APIXABAN 2.5 MG TABLET (WCH) GT ×2 (08:05→22:49)
[2023-01-28] MEDS: Gabapentin 300 MG Capsule GT ×2 (08:05→22:50)
[2023-01-28] MEDS: Meropenem 1 GM in 0.9% Normal Saline (100mL MB+) 100 ML IV ×2 (08:08→22:50)
--- NOTE | 2023-01-28 08:11 | CASEMGMT ---
Social Work LW/POA both scanned into [employer] water systems, Christiane Graham listed as healthcare POA. NOEL Kam
--- NOTE | 2023-01-28 09:24 | CASEMGMT ---
Addendum entered by Carrie Lyon 01/28/23 11:50: Social Work SW received message back from Casie in TCU, they can take pt back. SW attempted to tell pt, he is asleep. SW called pt's significant other and Christiane SOTO and let her know. Christiane in agreement also w/pt going back to TCU, though was concerned about the pts in TCU w/COVID. SW asked if she wanted to speak w/pt and let SW know their final decision, she states no, she is good w/pt going back if this is where he wants to go. She then spoke at length about pt's tube feeds, SW advised her to speak w/RN and ask to speak w/the personal insurance advisor regarding this. SW spoke w/Casie in TCU, there is one pt w/COVID. SW let pt's significant other know, she seems reassured by this. SW will continue to follow for discharge back to TCU when appropriate. NOEL Kam Original Note: Social Work SW participated in ICU rounds this morning. Plan had been for pt to leave TCU today to go home w/home health, however pt is now in the hospital. SW inquired w/pt what he would like to do. Through nodding, pt communicated would like to return to TCU rather than go home from here. SW explained will check w/them to see if they can take him back. FRANKO sent Ann in TCU a message, awaiting response. NOEL Kam
--- NOTE | 2023-01-28 15:53 | CON.PCM.ID_ITS ---
Assessment & Plan Assessment/Plan (1) Aspiration pneumonia: QUALIFIERS: Laterality: right Lung location: lower lobe of lung PLAN: acute on chronic resp failure - wbc normal, no further fever, bcxs remain neg. On vanc/juan j. Will follow, thank you HPI Consult Data Date of Consult: 01/28/23 HPI Narrative Reason for Consultation: pneumonia HPI Narrative: SERENITY ESTRADA, is a 77 M who presented from TCU to ED 01/26 with fever, emesis, hypoxic resp failure. Admitted to icu, has been on vanc/juan j, feeling better now. No further fever, mild sputum. No abd pain, no n/v/d. 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 Shortness of breath on exertion Thrush, oral Tracheostomy in place tracheotomy and laryngeal biopsy Wears glasses Home Medications levothyroxine 50 mcg tablet See Rx Instructions .Route .COMPLEX thyroid #90 TABLETS 06/22/22 [Rx Last Taken Unknown] omeprazole 20 mg capsule,delayed release 20 mg PO DAILY reflux 06/25/22 [History Last Taken Unknown] budesonide 0.5 mg/2 mL suspension for nebulization 0.5 mg (2 mL) inhalation BID breathing #120 mL 08/13/22 [Rx Last Taken Unknown] ipratropium 0.5 mg-albuterol 3 mg (2.5 mg base)/3 mL nebulization soln 3 ml inhalation Q4H PRN shortness of breath or wheezing #180 mL 08/14/22 [Rx Last Taken Unknown] gabapentin 300 mg capsule 300 mg feeding tube BID nerve pain #60 caps 11/30/22 [Rx Last Taken Unknown] amiodarone 200 mg tablet 200 mg PO BID ABNORMAL RHYTHM 30 days #60 tabs 01/25/23 [Rx Last Taken Unknown] apixaban 5 mg tablet (Eliquis) 2.5 mg (1/2 x 5 mg) PO BID DYSRHYTHMIA 30 days #30 tabs 01/25/23 [Rx Last Taken Unknown] lactose-reduced food with fiber 0.06 gram-1.5 kcal/mL oral liquid (Jevity 1.5 Dipesh) 300 ml G-tube 4X/DAY #0 mL 01/25/23 [Rx Last Taken Unknown] midodrine 5 mg tablet 15 mg (3 x 5 mg) G-tube TIDCM HYPOTENSION 30 days #270 tabs 01/25/23 [Rx Last Taken Unknown] guaifenesin 100 mg/5 mL oral liquid mg PO PRN COUGH 01/26/23 [History Last Taken Unknown] menthol 0.44 %-zinc oxide 20.6 % topical ointment (CalaSoothe) 1 applic topical DAILY 01/26/23 [History Last Taken Unknown] meropenem 1 gram intravenous solution 1 g IV Q12H INFECTION 01/26/23 [History Last Taken Unknown] nystatin 100,000 unit/mL oral suspension 5 ml PO Q6H ANTIFUNGAL 01/26/23 [History Last Taken Unknown] pantoprazole 40 mg intravenous solution 40 mg IV DAILY KIRAN 01/26/23 [History Last Taken Unknown] Allergy/AdvReac Type Severity Reaction Status Date / Time venom-wasp Allergy Anaphylaxis Verified 01/13/23 17:29 pseudoephedrine HCl AdvReac Severe Unknown Verified 01/13/23 17:29 [From Sudafed] Antihistamines - Alkylamine AdvReac Mild Other Verified 01/13/23 17:29 Family History Father Colon cancer Hypertension Mother Hypertension Surgical History History of gastrostomy History of surgery History of tracheostomy Hx of tonsillectomy S/P percutaneous endoscopic gastrostomy (PEG) tube placement S/P TURP Social History household members: spouse Smoking Status: Former smoker quit date: 04/08/17 pack-years: 55 alcohol intake: never substance use type: does not use Physical Exam Const alert and no apparent distress General Appearance: cooperative HEENT normocephalic and head/scalp atraumatic Eyes PERRL and EOMs intact bilaterally Neck supple Neck Narrative: trach in place Resp Auscultation: diminished lung sounds Cardio regular rate and regular rhythm GI soft to palpation, non-tender and non-distended Extremity General Extremity: Negative for edema Skin no rashes or lesions noted Neuro CN's II-XII intact bilaterally Lab / Micro Data Attestation: I reviewed the patient's lab results. 01/28/23 04:22 01/28/23 04:22 Labs: Laboratory Results - last 24 hr 01/28/23 04:22: WBC 8.2, RBC 2.46 L, Hgb 7.4 L, Hct 25.3 L, MCV 102.8 H, MCH 30.1, MCHC 29.2 L, RDW Std Deviation 62.6 H, RDW Coeff of Oz 16.7 H, Plt Count 237, MPV 11.1, Immature Gran % (Auto) 0.500, Neut % (Auto) 67.1, Lymph % (Auto) 21.2, [place] % (Auto) 7.2, Eos % (Auto) 3.3, Baso % (Auto) 0.7, Absolute Neuts (auto) 5.5, Absolute Lymphs (auto) 1.73, Nucleated RBC % 0, Sodium 143, Potassium 4.2, Chloride 113 H, Carbon Dioxide 28.0, Anion Gap 2 L, BUN 21 H, Creatinine 1.00, Estim Creat Clear Calc 57.60, Est GFR (MDRD) Af Amer 94, Est GFR (MDRD) Non-Af 78, BUN/Creatinine Ratio 21.1 H, Glucose 79, Calcium 8.0 L, Total Bilirubin 0.30, AST 19, ALT 25, Alkaline Phosphatase 55, Total Protein 5.2 L, Albumin 1.4 L, Globulin 3.8, Albumin/Globulin Ratio 0.4 L Micro: Microbiology 01/26/23 19:16 Urine, Clean Catch Urine Culture - Final Culture exhibits no growth.
--- NOTE | 2023-01-28 16:31 | NURSING ---
report called to pcu for transfer to room 128, significant other notified of transfer
[2023-01-28 23:45] LABS: Vancomycin, Trough Level 19.4 ug/mL (5.0-15.0)
[2023-01-29] VITALS (9 sets, daily range): BP systolic 119–132; BP diastolic 61–76; PULSE 71–84; RESP 16–18; TEMP 36.3–36.7; O2SAT 93–100; BMI 24.6
[2023-01-29] MEDS: Vancomycin HCl 750 MG in 0.9% Normal Saline (250mL Bag) 250 ML 250 MG IV (00:58)
[2023-01-29] MEDS: Vancomycin Trough/Random Due 1 LAB MC (00:59)
--- NOTE | 2023-01-29 01:04 | PCM.RX.CS ---
Consult Antibiotic Management Pharmacy has been consulted to manage selected antiobiotic: Vancomycin Type of Intervention Type of Consult: Follow-up Labs Labs: Sodium 143 mmol/L (136-145) 01/28/23 04:22 Potassium 4.2 mmol/L (3.5-5.1) 01/28/23 04:22 Chloride 113 mmol/L (98-107) H 01/28/23 04:22 Carbon Dioxide 28.0 mmol/L (21.0-32.0) 01/28/23 04:22 Anion Gap 2 (5-15) L 01/28/23 04:22 BUN 21 mg/dL (7-18) H 01/28/23 04:22 Creatinine 1.00 mg/dL (0.70-1.30) 01/28/23 04:22 Est GFR (MDRD) Af Amer 94 mL/min (>60) 01/28/23 04:22 Est GFR (MDRD) Non-Af 78 mL/min (>60) 01/28/23 04:22 BUN/Creatinine Ratio 21.1 RATIO (10-20) H 01/28/23 04:22 Glucose 79 mg/dL (74-106) 01/28/23 04:22 Vancomycin Trough 19.4 ug/mL (5.0-15.0) H 01/28/23 22:48 Microbiology Microbiology: Microbiology 01/26/23 19:16 Urine, Clean Catch Urine Culture - Final Culture exhibits no growth. 01/27/23 00:28 Mucosa - Nose Respiratory Panel (PCR) - Final 01/27/23 00:28 Mucosa - Nose Coronavirus COVID-19 PCR - Final 01/26/23 19:16 Urine, Clean Catch Legionella Antigen - Final 01/26/23 19:16 Urine, Clean Catch Streptococcus pneumoniae Antigen (M - Final 01/26/23 19:12 Nasal Secretion SARS-CoV-2 & FLU Antigen (Rapid) - Final Pharmacy Plan for Drug Dosing Pharmacy Plan for Drug Dosing: Pharmacy Service will continue to monitor and adjust dosing as required. TROUGH 19.4 @ 24HRS. NO CHANGES, FOLLOW UP TROUGH IN 2 DAYS Follow-Up Labs Follow-Up Labs: Trough: Vancomycin Date/Time Labs Ordered Labs to be done on [date and time ordered]: 01/30 @ 2300
[2023-01-29] MEDS: Levothyroxine 50 MCG Tablet GT (05:41)
[2023-01-29 05:45] LABS: Absolute Lymphocyte Count 1.85 X10^3/uL (0.83-4.51); Absolute Neutrophil Count 3.2 X10^3/uL (2.0-7.7); Basophil# 0.05 X10^3/uL; Basophil% 0.8 % (0-1); Eosinophil# 0.41 X10^3/uL; Eosinophils% 6.9 % (0-5); Hematocrit 26.5 % (40-54); Hemoglobin 7.9 g/dL (13.0-16.5); Lymphocyte # 1.85 X10^3/ul (0.83-4.51); Lymphocyte % 31.1 % (19-41); Mean Corp Hgb Conc 29.8 g/dL (32-36); Mean Corpuscular Hgb 30.4 pg (27.0-32.0); Mean Corpuscular Volume 101.9 fL (80-94); Mean Platelet Vol. 10.6 fl (6.2-12.0); Monocyte# 0.44 X10^3/uL; Monocyte% 7.4 % (0-10); NRBC Flagged by Analyzer 0 % (0-5); Neutrophil # 3.17 X10^3/uL (2.7-7.7); Neutrophil % 53.3 % (47-70); Platelet Count 240 K/mm3 (150-450); RBC Distribution Width CV 16.8 % (11.6-14.6); RBC Distribution Width SD 62.9 fl (35.1-43.9)
[2023-01-29 06:17] LABS: Anion Gap 0 (5-15); BUN 17 mg/dL (7-18); BUN/Creat Ratio 17.4 RATIO (10-20); Calcium,Total 8.4 mg/dL (8.5-10.1); Chloride 112 mmol/L (98-107); Creatinine, Serum 0.98 mg/dL (0.70-1.30); EST Glomerular Filtration Rate 80 mL/min (>60); Est Glom Filt Rate - Afr Amer 96 mL/min (>60); Estimated Creatinine Clearance 58.77 ml/min; Glucose 73 mg/dL (74-106); Potassium 4.4 mmol/L (3.5-5.1); Sodium Level 141 mmol/L (136-145)
--- NOTE | 2023-01-29 07:44 | PCM.PN.INT ---
Assessment & Plan Assessment/Plan (1) Acute and chronic respiratory failure with hypoxia: PLAN: Plan RECOMMENDATIONS: 1. Wean oxygen to maintain saturations at or above 90%. 2. Defer antibiotics to ID 3. Continue scheduled midodrine. Continue to hold IV fluids 4. Continue bronchodilators. 5. Maintain aspiration precautions. 6. Nutritional support via G-tube. Await nutrition consultation for tube feed recommendations. 7. Continue aggressive bronchopulmonary hygiene. 8. Okay to discharge from a pulmonary perspective IMPRESSIONS: 1. Acute on chronic hypoxemic respiratory failure The patient is acute decompensation once again appears to be secondary to an episode of vomiting. He has been placed on empiric antimicrobials once again. Plan to continue current supportive measures, including aggressive bronchopulmonary hygiene and bronchodilators. Continue supplemental oxygen to maintain saturations at or above 90%. Nutrition consultation will be obtained for tube feeding recommendations. Ultimately, the patient may need to be evaluated by gastroenterology and/or placed on a trial of prokinetic agent over concerns for underlying gastroparesis, given his history of recurrent vomiting. Patient's family does use a concoction of bananas that may be leading to some obstruction. Infectious diseases consultation will be obtained, given his history of polymicrobial infection, with varying sensitivities. Patient does appear to be responding well to aggressive pulmonary toileting. 2. Hypotension The patient has a known history of chronic hypotension, for which he is prescribed outpatient scheduled midodrine. I suspect his current hemodynamic instability is likely secondary to intravascular volume depletion. However, judicious use of fluids will need to be employed given his underlying cardiomyopathy with an ejection fraction last noted to be 35% in December 2022. We will continue to hold IV fluids given improved blood pressure and anasarca. I would recommend targeting a systolic blood pressure at or above 90 mmHg. 3. 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 Continue supportive care as noted above. Recommend PT/OT evaluations. Code Status: DNR CCA with intubation. This was discussed with the patient at the bedside by Dr. Polo. This note was generated with [employer] dictation software. It may contain incorrect words, spelling, and punctuation that were not noted in checking the note before signing. Subjective Subjective Patient did okay overnight. Patient has been able to be moved from the intensive care unit. Patient has had some hemorrhoidal bleeding, but this has not progressed. Patient is not reporting any abdominal pain. Patient has not had any issues with secretions. Objective Data Objective Data Vital Signs: Vital Signs Temp Pulse Resp BP Pulse Ox O2 Del Method O2 Flow Rate 36.7 C 71 18 119/61 98 Trach Collar 3 01/29/23 05:00 01/29/23 05:00 01/29/23 05:00 01/29/23 05:00 01/29/23 05:00 01/29/23 05:00 01/29/23 05:00 FiO2 97 01/28/23 08:00 Oxygen Flow Rate (L/min) 3 Oxygen Delivery Method Trach Collar Weight: 69.3 kg Body Mass Index (BMI) 24.6 Intake & Output: Intake and Output for Last 24 Hours 01/27/23 01/28/23 01/29/23 23:59 23:59 23:59 Intake Total 4450.48 / 4450.48 2698.33 / 2698.33 385 / 385 Output Total 1000 / 1000 1150 / 1150 250 / 250 Balance 3450.48 / 3450.48 1548.33 / 1548.33 135 / 135 Lab / Micro Data Attestation: I reviewed the patient's lab results. 01/29/23 05:33 01/29/23 05:33 Labs: Laboratory Results - last 24 hr 01/28/23 22:48: Vancomycin Trough 19.4 H 01/29/23 05:33: WBC 6.0, RBC 2.60 L, Hgb 7.9 L, Hct 26.5 L, MCV 101.9 H, MCH 30.4, MCHC 29.8 L, RDW Std Deviation 62.9 H, RDW Coeff of Oz 16.8 H, Plt Count 240, MPV 10.6, Immature Gran % (Auto) 0.500, Neut % (Auto) 53.3, Lymph % (Auto) 31.1, [place] % (Auto) 7.4, Eos % (Auto) 6.9 H, Baso % (Auto) 0.8, Absolute Neuts (auto) 3.2, Absolute Lymphs (auto) 1.85, Nucleated RBC % 0, Sodium 141, Potassium 4.4, Chloride 112 H, Carbon Dioxide 29.0, Anion Gap 0 L, BUN 17, Creatinine 0.98, Estim Creat Clear Calc 58.77, Est GFR (MDRD) Af Amer 96, Est GFR (MDRD) Non-Af 80, BUN/Creatinine Ratio 17.4, Glucose 73 L, Calcium 8.4 L Micro: Microbiology 01/26/23 19:16 Urine, Clean Catch Urine Culture - Final Culture exhibits no growth. 01/27/23 00:28 Mucosa - Nose Respiratory Panel (PCR) - Final 01/27/23 00:28 Mucosa - Nose Coronavirus COVID-19 PCR - Final 01/26/23 19:16 Urine, Clean Catch Legionella Antigen - Final 01/26/23 19:16 Urine, Clean Catch Streptococcus pneumoniae Antigen (M - Final 01/26/23 19:12 Nasal Secretion SARS-CoV-2 & FLU Antigen (Rapid) - Final Physical Exam Const alert and no apparent distress Constitutional Narrative: Chronically frail. Improving anasarca General Appearance: cooperative HEENT normocephalic and head/scalp atraumatic Eyes PERRL, EOMs intact bilaterally and conjunctivae normal Neck Neck Narrative: Stable tracheostomy site. JVD noted Chest inspection of chest normal Resp normal respiratory effort Auscultation: diminished lung sounds; Negative for rales, rhonchi or wheezes Cardio regular rate, regular rhythm, S1 normal heart sound and S2 normal heart sound GI soft to palpation and non-tender Inspection: GI tube present Extremity Extremity Narrative: Edema is improving General Extremity: edema; Negative for clubbing Skin no rashes or lesions noted Neuro CN's II-XII intact bilaterally and no focal motor deficits Psych Mood & Affect: flat affect Charges/Coding Visit Charges Inpatient E&M: 35977 Subs Hosp L2
[2023-01-29] MEDS: Budesonide Respules 0.5 MG/2 ML AMPUL.NEB. INHALATION (08:13)
--- NOTE | 2023-01-29 09:02 | PCM.PN.HOSP ---
Reason for Visit Reason for Visit: Diagnoses Candidal stomatitis (01/26/23) Other hypotension (01/26/23) Hypotension, unspecified (01/26/23) Pneumonitis due to inhalation of food and vomit (01/26/23) Acute and chronic respiratory failure with hypoxia (01/26/23) Vomiting, unspecified (01/26/23) Diarrhea, unspecified (01/26/23) Subjective Subjective Patient and his are concerned that his feedings are not on his normal routine. No other events overnight. Breathing well. Still with arm swelling and asking about removal of the peripheral IVs that he has in his arms. Objective Data Objective Data Vital Signs: Vital Signs Temp Pulse Resp BP Pulse Ox O2 Del Method O2 Flow Rate 36.7 C 84 16 119/61 100 Trach Collar 3 01/29/23 05:00 01/29/23 08:13 01/29/23 08:13 01/29/23 05:00 01/29/23 08:13 01/29/23 08:13 01/29/23 08:13 FiO2 97 01/28/23 08:00 Oxygen Flow Rate (L/min) 3 Oxygen Delivery Method Trach Collar Weight: 69.3 kg Body Mass Index (BMI) 24.6 Intake & Output: Intake and Output for Last 24 Hours 01/27/23 01/28/23 01/29/23 23:59 23:59 23:59 Intake Total 4450.48 / 4450.48 2698.33 / 2698.33 385 / 385 Output Total 1000 / 1000 1150 / 1150 250 / 250 Balance 3450.48 / 3450.48 1548.33 / 1548.33 135 / 135 Lab / Micro Data 01/29/23 05:33 01/29/23 05:33 Labs: Laboratory Results - last 24 hr 01/28/23 22:48: Vancomycin Trough 19.4 H 01/29/23 05:33: WBC 6.0, RBC 2.60 L, Hgb 7.9 L, Hct 26.5 L, MCV 101.9 H, MCH 30.4, MCHC 29.8 L, RDW Std Deviation 62.9 H, RDW Coeff of Oz 16.8 H, Plt Count 240, MPV 10.6, Immature Gran % (Auto) 0.500, Neut % (Auto) 53.3, Lymph % (Auto) 31.1, [place] % (Auto) 7.4, Eos % (Auto) 6.9 H, Baso % (Auto) 0.8, Absolute Neuts (auto) 3.2, Absolute Lymphs (auto) 1.85, Nucleated RBC % 0, Sodium 141, Potassium 4.4, Chloride 112 H, Carbon Dioxide 29.0, Anion Gap 0 L, BUN 17, Creatinine 0.98, Estim Creat Clear Calc 58.77, Est GFR (MDRD) Af Amer 96, Est GFR (MDRD) Non-Af 80, BUN/Creatinine Ratio 17.4, Glucose 73 L, Calcium 8.4 L Micro: Microbiology 01/26/23 19:16 Urine, Clean Catch Urine Culture - Final Culture exhibits no growth. 01/27/23 00:28 Mucosa - Nose Respiratory Panel (PCR) - Final 01/27/23 00:28 Mucosa - Nose Coronavirus COVID-19 PCR - Final 01/26/23 19:16 Urine, Clean Catch Legionella Antigen - Final 01/26/23 19:16 Urine, Clean Catch Streptococcus pneumoniae Antigen (M - Final 01/26/23 19:12 Nasal Secretion SARS-CoV-2 & FLU Antigen (Rapid) - Final Physical Exam Const alert and no apparent distress HEENT head/scalp atraumatic and moist oral mucous membranes Resp normal respiratory effort, no retractions, no use of accessory muscles and clear to auscultation bilaterally Cardio regular rate, regular rhythm, S1 normal heart sound and S2 normal heart sound Neuro Sensorium / Orientation: awake and alert Assessment & Plan Assessment/Plan (1) Aspiration pneumonia: QUALIFIERS: Laterality: right Lung location: lower lobe of lung PLAN: H/o Klebsiella and Pseudomonas earlier this month. Repeat SCx ID on consult. DW Dr. Jorge, he recommends dc vancomycin and 10-days total of meropenem CXR shows chronic changes in RLL and bilateral pleural effusions. (2) Hypotension: PLAN: Acute on chronic Had been on norepinephrine gtt, off since around noon on 01/27. Chronically on midodrine, which is continued Caution with hydration given cardiomyopathy Goal SBP 90+ No septic shock. (3) Recurrent vomiting: PLAN: Pt states that it was from nystatin consider GES if persists. (4) Thrush: PLAN: start fluconazole through GT, for 10 days total. Did not tolerate nystatin S+S (5) Diarrhea: PLAN: Likely secondary to chronic tube feeds. DW significant other on 01/28 Pt take jevity 1.5 along with 1/4 banana and spoonful of protein powder. Those are mixed together in a manager wound care and given via GT. He has been on this regimen for years. I feel that it is appropriate to administer. Nutrition. 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 TF to PCU. Discussed with patient's . I discussed with him both as well as nursing about getting him back on his regimen. She has a written out regimen for his tube feeds and medications. Nursing to review that in place that in the orders.
[2023-01-29] MEDS: APIXABAN 2.5 MG TABLET (WCH) GT (09:52)
[2023-01-29] MEDS: Amiodarone 200 MG Tablet GT (09:52)
[2023-01-29] MEDS: Midodrine HCl 5 MG Tablet 15 MG GT ×3 (09:52→18:11)
[2023-01-29] MEDS: Ferrous Sulfate 300 MG/5 ML UDC GT (09:52)
[2023-01-29] MEDS: Fluconazole 10 MG/ML 35 ML Bottle 100 MG GT (09:53)
[2023-01-29] MEDS: Jevity 1.5. 1,000 ML Bottle 300 ML GT ×2 (09:54→18:10)
[2023-01-29] MEDS: Gabapentin 300 MG Capsule GT (09:55)
[2023-01-29] MEDS: Pantoprazole Sodium 40 MG in 0.9% Normal Saline (100mL MB+) 100 ML 330 MG IV (11:04)
[2023-01-29] MEDS: Ondansetron 4 MG/2 ML Vial IV (11:50)
[2023-01-29] MEDS: 0.9% Saline Lock 10 ML Syringe IV ×3 (11:50→18:11)
--- NOTE | 2023-01-29 13:07 | CASEMGMT ---
Patient can be discharged to [facility] today. SW notified physician. Plan: d/c to [facility] under skilled level of care. Leann JUAREZ
--- NOTE | 2023-01-29 13:43 | TREXTCAR_ITS ---
Diet Diet Order/Speech Therapy: 01/26/23 22:39 Diet: Nothing Per Oral Routine Orders/Code Status Routine Lab Work: CBC and BMP Code Status: DNRCC-A (intubation ok. ) Wound(s) Bilateral Shins: Wound Type: healing scabs Left Forearm: Wound Type: Skin Tear Therapies Physical Therapy: Eval and Treat Occupational Therapy: Eval and Treat Speech Therapy: Eval and Treat Problem/Diagnosis (1) Aspiration pneumonia: Status: Acute Code(s): J69.0 - Pneumonitis due to inhalation of food and vomit Plan: H/o Klebsiella and Pseudomonas earlier this month. Repeat SCx ID on consult. DW Dr. Jorge, he recommends dc vancomycin and 10-days total of meropenem CXR shows chronic changes in RLL and bilateral pleural effusions. (2) Hypotension: Status: Acute Code(s): I95.9 - Hypotension, unspecified Plan: Acute on chronic Had been on norepinephrine gtt, off since around noon on 01/27. Chronically on midodrine, which is continued Caution with hydration given cardiomyopathy Goal SBP 90+ No septic shock. (3) Recurrent vomiting: Status: Acute Code(s): R11.10 - Vomiting, unspecified Plan: Pt states that it was from nystatin consider GES if persists. (4) Thrush: Status: Acute Code(s): B37.0 - Candidal stomatitis Plan: start fluconazole through GT, for 10 days total. Did not tolerate nystatin S+S (5) Diarrhea: Status: Acute Code(s): R19.7 - Diarrhea, unspecified Plan: Likely secondary to chronic tube feeds. DW significant other on 01/28 Pt take jevity 1.5 along with 1/4 banana and spoonful of protein powder. Those are mixed together in a filler blender and given via GT. He has been on this regimen for years. I feel that it is appropriate to administer. Nutrition. 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 TF to PCU. Discussed with patient's . I discussed with him both as well as nursing about getting him back on his regimen. She has a written out regimen for his tube feeds and medications. Nursing to review that in place that in the orders. Allergies/Procedures Done in Hospital Allergies venom-wasp Allergy (Verified 01/13/23 17:29) Anaphylaxis patient states allergy is to yellow jackdets pseudoephedrine HCl [From Sudafed] Adverse Reaction (Severe, Verified 01/13/23 17:29) Unknown pain Antihistamines - Alkylamine Adverse Reaction (Mild, Verified 01/13/23 17:29) Other PT UNABLE TO URINATE WHEN TAKING ANTIHISTAMINES ROUTINELY Procedures: None Type of Care/Length of Stay Estimated LOS: Convalescent Care Less Than 30 days Type of Care Needed: Skilled Rehab Potential: Fair Prognosis: Fair Additional Orders/Day of Discharge Day of Discharge: 01/29/23 Dietary and Speech Recommendations Dietitian Recommendations/Changes: 1.) NPO; TF via PEG: Bolus 300mL Jevity 1.5 Dipesh 4 times per day with 100mL water flush before and after each bolus to provide 1800 kcal, 77 gm protein, 1712 mL free water per day. 2.) If TF intolerance becomes an issue, consider decreasing volume of bolus or changing delivery of enteral nutrition support to continuous. 3. 1/4 of a banana and 1 spoonful of whey protein (provided by his spouse) with Jevity 4x per day. Blend together. Discharge Plan Admission Admit Date/Time: 01/26/23 21:35 Primary Reason for Your Visit: pneumonia. hypotension. Attending Provider: Ki Nichols Primary Care Provider: Alejandro Liu Consulting Providers: Zeb Anand; Gordy Hamilton; Semaj Jorge; Hebert Camarena; Stuart Polo; Roberto Roe; Santos Marino; Dean Renee; Kayleen Callejas WORKSITE WELLNESS PRACTITIONER Discharge Orders/Prescriptions Prescriptions: New amiodarone 200 mg Tablet 200 mg G-tube BID Qty: 0 0RF Eliquis 5 mg Tablet 2.5 mg G-tube BID Qty: 0 0RF guaifenesin 100 mg/5 mL Liquid 50 mg G-tube Q4H PRN PRN (Reason: COUGH) Qty: 1000 0RF fluconazole 10 mg/mL Suspension For Reconstitution 100 mg G-tube DAILY Qty: 0 0RF levothyroxine 50 mcg Tablet 50 mcg G-tube DAILY@0600 Qty: 0 0RF ferrous sulfate 300 mg (60 mg iron)/5 mL Liquid 300 mg G-tube BREAKFAST Qty: 0 0RF Continued midodrine 5 mg Tablet 15 mg G-tube TIDCM 30 Days Qty: 270 0RF Jevity 1.5 Dipesh 0.06 gram-1.5 kcal/mL Liquid 300 ml G-tube 4X/DAY Qty: 0 0RF Hold Instructions: Order Changed menthol-zinc oxide [CalaSoothe] 0.44-20.6 % ointment 1 applic topical DAILY budesonide 0.5 mg/2 mL suspension for nebulization 0.5 mg inhalation BID Qty: 120 6RF ipratropium-albuterol 0.5 mg-3 mg(2.5 mg base)/3 mL solution for nebulization 3 ml inhalation Q4H PRN (Reason: shortness of breath or wheezing) Qty: 180 6RF gabapentin 300 mg capsule 300 mg feeding tube BID Qty: 60 11RF Rx Instructions: Via G-tube. Changed meropenem 1 gram recon soln 1 g IV Q8H omeprazole 20 mg capsule,delayed release(DR/EC) 20 mg feeding tube DAILY Qty: 30 0RF Discontinued amiodarone 200 mg Tablet 200 mg PO BID 30 Days Qty: 60 0RF Eliquis 5 mg Tablet 2.5 mg PO BID 30 Days Qty: 30 0RF nystatin 100,000 unit/mL suspension 5 ml PO Q6H Patient Comments: TAKE 5 ML BY MOUTH 4 TIMES DAILY pantoprazole 40 mg recon soln 40 mg IV DAILY guaifenesin 100 mg/5 mL liquid PO PRN (Reason: COUGH) Patient Comments: TAKE 10 ML BY MOUTH EVERY 6 HOURS NEEDED FOR COUGH levothyroxine 50 mcg tablet See Rx Instructions .ROUTE .COMPLEX Qty: 90 5RF Dose Instruction: TAKE 1 TABLET BY MOUTH EVERY DAY Rx Instructions: TAKE 1 TABLET BY MOUTH EVERY DAY Referrals / Follow Up: [facility] [Provider Group] - 02/11/23 9:30 am *[facility] [Provider Group] - 02/18/23 9:15 am [facility] [Provider Group] - 03/11/23 1:35 pm Alejandro Liu PA [Primary Care Provider] - Within 2 Weeks Disposition Disposition (needs filled in before D/C Order can be placed): Nursing Home Facility (1) Aspiration pneumonia Qualifiers: Laterality: right Lung location: lower lobe of lung
[2023-01-29] MEDS: Meropenem 1 GM in 0.9% Normal Saline (100mL MB+) 100 ML IV (13:48)
--- NOTE | 2023-01-29 14:08 | DS.PCM_ITS ---
Providers Date of Admission: 01/26/23 Primary Care Physician: LEÓN Fung Consultations 01/26/23 22:28 Consult: [employer] Operators Supervisor / Pulmonary Medicine Routine Consulting Provider: [facility] Reason for Consult: Aspiration pneumonia, suspicion of sepsis, hypotension EMERGENT Consult: No Notified: Yes Date Notified: 01/26/23 Time Notified: 22:28 Method of Notification: Text 01/27/23 06:24 Consult: Infectious Disease Routine Consulting Provider: Semaj Jorge Reason for Consult: Aspiration PNA with h/o drug resistant pathogens EMERGENT Consult: No Notified: Yes Date Notified: 01/28/23 Time Notified: 07:29 Method of Notification: Answering Service Reason For Visit: ASPIRATION PNEUMONIA Diagnosis Discharge Diagnosis (1) Aspiration pneumonia: Status: Acute Code(s): J69.0 - Pneumonitis due to inhalation of food and vomit Qualifiers: Laterality: right Lung location: lower lobe of lung Plan: H/o Klebsiella and Pseudomonas earlier this month. Repeat SCx ID on consult. DW Dr. Jorge, he recommends dc vancomycin and 10-days total of meropenem CXR shows chronic changes in RLL and bilateral pleural effusions. (2) Hypotension: Status: Acute Code(s): I95.9 - Hypotension, unspecified Plan: Acute on chronic Had been on norepinephrine gtt, off since around noon on 01/27. Chronically on midodrine, which is continued Caution with hydration given cardiomyopathy Goal SBP 90+ No septic shock. (3) Recurrent vomiting: Status: Acute Code(s): R11.10 - Vomiting, unspecified Plan: Pt states that it was from nystatin consider GES if persists. (4) Thrush: Status: Acute Code(s): B37.0 - Candidal stomatitis Plan: start fluconazole through GT, for 10 days total. Did not tolerate nystatin S+S (5) Diarrhea: Status: Acute Code(s): R19.7 - Diarrhea, unspecified Plan: Likely secondary to chronic tube feeds. DW significant other on 01/28 Pt take jevity 1.5 along with 1/4 banana and spoonful of protein powder. Those are mixed together in a network announcer and given via GT. He has been on this regimen for years. I feel that it is appropriate to administer. Nutrition. 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 TF to PCU. Discussed with patient's . I discussed with him both as well as nursing about getting him back on his regimen. She has a written out regimen for his tube feeds and medications. Nursing to review that in place that in the orders. Medications at Discharge Home Medications budesonide 0.5 mg/2 mL suspension for nebulization 0.5 mg (2 mL) inhalation BID breathing #120 mL 08/13/22 ipratropium 0.5 mg-albuterol 3 mg (2.5 mg base)/3 mL nebulization soln 3 ml inhalation Q4H PRN shortness of breath or wheezing #180 mL 08/14/22 gabapentin 300 mg capsule 300 mg feeding tube BID nerve pain #60 caps 11/30/22 lactose-reduced food with fiber 0.06 gram-1.5 kcal/mL oral liquid (Jevity 1.5 Dipesh) 300 ml G-tube 4X/DAY #0 mL 01/25/23 midodrine 5 mg tablet 15 mg (3 x 5 mg) G-tube TIDCM HYPOTENSION 30 days #270 tabs 01/25/23 menthol 0.44 %-zinc oxide 20.6 % topical ointment (CalaSoothe) 1 applic topical DAILY 01/26/23 amiodarone 200 mg tablet 200 mg G-tube BID #0 tabs 01/29/23 apixaban 5 mg tablet (Eliquis) 2.5 mg (1/2 x 5 mg) G-tube BID #0 tabs 01/29/23 ferrous sulfate 300 mg (60 mg iron)/5 mL oral liquid 300 mg (5 mL) G-tube BREAKFAST #0 mL 01/29/23 fluconazole 10 mg/mL oral suspension 100 mg (10 mL) G-tube DAILY #0 mL 01/29/23 guaifenesin 100 mg/5 mL oral liquid 50 mg (2.5 mL) G-tube Q4H PRN PRN COUGH #1,000 mL 01/29/23 levothyroxine 50 mcg tablet 50 mcg G-tube DAILY@0600 #0 tabs 01/29/23 meropenem 1 gram intravenous solution 1 g IV Q8H INFECTION #0 ea 01/29/23 omeprazole 20 mg capsule,delayed release 20 mg feeding tube DAILY reflux #30 caps 01/29/23 Hospital Course Operations None Procedures None Summary of Care Provided Minutes Spent on Discharge: 45 Hospital Course: Presents with vomiting concern for an aspiration event. Patient had infiltrate on his chest x-ray would appear to be unchanged from previous. Patient was started on broad-spectrum antibiotics with vancomycin and Zosyn. Cultures have thus far not showing anything. Patient did have some transient hypotension on top of his chronic hypotension. Patient Translet was on norepinephrine but has since been weaned off. Patient had been receiving nystatin for thrush but stated that he liked the taste of it but was unable to tolerate that and was vomiting when he would ingested. Patient has been changed over to fluconazole which she will take for a total of 10 days. For his pneumonia, patient will continue with meropenem for total of 10 days. Patient's course has been uncomplicated otherwise. There was some concern from the family that patient has been taken off his normal regimen of Jevity 4 times per day but he also has that blended in with spoonful of protein powder and a quarter banana. That has been resumed. Patient otherwise is doing well and will be discharged back to [facility] transitional care unit. Weight / BMI Weight Weight: 69.3 kg Body Mass Index (BMI) 24.6 ABG / Lab / Microbiology Data 01/29/23 05:33 01/29/23 05:33 Laboratory: Laboratory Results - last 24 hr 01/28/23 22:48: Vancomycin Trough 19.4 H 01/29/23 05:33: WBC 6.0, RBC 2.60 L, Hgb 7.9 L, Hct 26.5 L, MCV 101.9 H, MCH 30.4, MCHC 29.8 L, RDW Std Deviation 62.9 H, RDW Coeff of Oz 16.8 H, Plt Count 240, MPV 10.6, Immature Gran % (Auto) 0.500, Neut % (Auto) 53.3, Lymph % (Auto) 31.1, Ballard % (Auto) 7.4, Eos % (Auto) 6.9 H, Baso % (Auto) 0.8, Absolute Neuts (auto) 3.2, Absolute Lymphs (auto) 1.85, Nucleated RBC % 0, Sodium 141, Potassium 4.4, Chloride 112 H, Carbon Dioxide 29.0, Anion Gap 0 L, BUN 17, Creatinine 0.98, Estim Creat Clear Calc 58.77, Est GFR (MDRD) Af Amer 96, Est GFR (MDRD) Non-Af 80, BUN/Creatinine Ratio 17.4, Glucose 73 L, Calcium 8.4 L Microbiology: Microbiology 01/26/23 19:16 Urine, Clean Catch Urine Culture - Final Culture exhibits no growth. 01/27/23 00:28 Mucosa - Nose Respiratory Panel (PCR) - Final 01/27/23 00:28 Mucosa - Nose Coronavirus COVID-19 PCR - Final 01/26/23 19:16 Urine, Clean Catch Legionella Antigen - Final 01/26/23 19:16 Urine, Clean Catch Streptococcus pneumoniae Antigen (M - Final 01/26/23 19:12 Nasal Secretion SARS-CoV-2 & FLU Antigen (Rapid) - Final Meaningful Use Info Meaningful Use Diagnoses (Choose all that apply): None applicable Discharge Plan Admission Admit Date/Time: 01/26/23 21:35 Primary Reason for Your Visit: pneumonia. hypotension. Attending Provider: Ki Ncihols Primary Care Provider: Alejandro Liu Consulting Providers: Zeb Anand; Gordy Hamilton; Semaj Jorge; Hebert Camarena; Stuart Polo; Roberto Roe; Santos Marino; Dean Renee; Kayleen Callejas ENGINEERING SECRETARY Discharge Orders/Prescriptions Prescriptions: New amiodarone 200 mg Tablet 200 mg G-tube BID Qty: 0 0RF Eliquis 5 mg Tablet 2.5 mg G-tube BID Qty: 0 0RF guaifenesin 100 mg/5 mL Liquid 50 mg G-tube Q4H PRN PRN (Reason: COUGH) Qty: 1000 0RF fluconazole 10 mg/mL Suspension For Reconstitution 100 mg G-tube DAILY Qty: 0 0RF levothyroxine 50 mcg Tablet 50 mcg G-tube DAILY@0600 Qty: 0 0RF ferrous sulfate 300 mg (60 mg iron)/5 mL Liquid 300 mg G-tube BREAKFAST Qty: 0 0RF Continued midodrine 5 mg Tablet 15 mg G-tube TIDCM 30 Days Qty: 270 0RF Jevity 1.5 Dipesh 0.06 gram-1.5 kcal/mL Liquid 300 ml G-tube 4X/DAY Qty: 0 0RF Hold Instructions: Order Changed menthol-zinc oxide [CalaSoothe] 0.44-20.6 % ointment 1 applic topical DAILY budesonide 0.5 mg/2 mL suspension for nebulization 0.5 mg inhalation BID Qty: 120 6RF ipratropium-albuterol 0.5 mg-3 mg(2.5 mg base)/3 mL solution for nebulization 3 ml inhalation Q4H PRN (Reason: shortness of breath or wheezing) Qty: 180 6RF gabapentin 300 mg capsule 300 mg feeding tube BID Qty: 60 11RF Rx Instructions: Via G-tube. Changed meropenem 1 gram recon soln 1 g IV Q8H omeprazole 20 mg capsule,delayed release(DR/EC) 20 mg feeding tube DAILY Qty: 30 0RF Discontinued amiodarone 200 mg Tablet 200 mg PO BID 30 Days Qty: 60 0RF Eliquis 5 mg Tablet 2.5 mg PO BID 30 Days Qty: 30 0RF nystatin 100,000 unit/mL suspension 5 ml PO Q6H Patient Comments: TAKE 5 ML BY MOUTH 4 TIMES DAILY pantoprazole 40 mg recon soln 40 mg IV DAILY guaifenesin 100 mg/5 mL liquid PO PRN (Reason: COUGH) Patient Comments: TAKE 10 ML BY MOUTH EVERY 6 HOURS NEEDED FOR COUGH levothyroxine 50 mcg tablet See Rx Instructions .ROUTE .COMPLEX Qty: 90 5RF Dose Instruction: TAKE 1 TABLET BY MOUTH EVERY DAY Rx Instructions: TAKE 1 TABLET BY MOUTH EVERY DAY Referrals / Follow Up: [facility] [Provider Group] - 02/11/23 9:30 am *[facility] [Provider Group] - 02/18/23 9:15 am [facility] [Provider Group] - 03/11/23 1:35 pm Liu,M Miles PA, PA [Primary Care Provider] - Within 2 Weeks Disposition Disposition (needs filled in before D/C Order can be placed): [facility] Facility Charges/Coding Visit Charges Inpatient E&M: 44216 Disch Hosp >30min
--- NOTE | 2023-01-29 15:03 | PHA.DC.MR.R ---
Pharmacy [place] Med Reconciliation Pharmacy Service has performed discharge medication reconciliation for this patient. The patient's discharge medication list was reviewed for discrepancies and discrepancies were resolved. Medications at Discharge Home Medications budesonide 0.5 mg/2 mL suspension for nebulization 0.5 mg (2 mL) inhalation BID breathing #120 mL 08/13/22 ipratropium 0.5 mg-albuterol 3 mg (2.5 mg base)/3 mL nebulization soln 3 ml inhalation Q4H PRN shortness of breath or wheezing #180 mL 08/14/22 gabapentin 300 mg capsule 300 mg feeding tube BID nerve pain #60 caps 11/30/22 lactose-reduced food with fiber 0.06 gram-1.5 kcal/mL oral liquid (Jevity 1.5 Dipesh) 300 ml G-tube 4X/DAY #0 mL 01/25/23 midodrine 5 mg tablet 15 mg (3 x 5 mg) G-tube TIDCM HYPOTENSION 30 days #270 tabs 01/25/23 menthol 0.44 %-zinc oxide 20.6 % topical ointment (CalaSoothe) 1 applic topical DAILY 01/26/23 amiodarone 200 mg tablet 200 mg G-tube BID #0 tabs 01/29/23 apixaban 5 mg tablet (Eliquis) 2.5 mg (1/2 x 5 mg) G-tube BID #0 tabs 01/29/23 ferrous sulfate 300 mg (60 mg iron)/5 mL oral liquid 300 mg (5 mL) G-tube BREAKFAST #0 mL 01/29/23 fluconazole 10 mg/mL oral suspension 100 mg (10 mL) G-tube DAILY #0 mL 01/29/23 guaifenesin 100 mg/5 mL oral liquid 50 mg (2.5 mL) G-tube Q4H PRN PRN COUGH #1,000 mL 01/29/23 levothyroxine 50 mcg tablet 50 mcg G-tube DAILY@0600 #0 tabs 01/29/23 meropenem 1 gram intravenous solution 1 g IV Q8H INFECTION #0 ea 01/29/23 omeprazole 20 mg capsule,delayed release 20 mg feeding tube DAILY reflux #30 caps 01/29/23
--- NOTE | 2023-01-29 15:06 | CASEMGMT ---
Addendum entered by Leann Moreno 01/29/23 15:11: SW also asked patient if his significant other is aware he is going to TCU. Patient motioned he has been texting her. Leann JUAREZ Original Note: SW spoke with patient and he was aware he is going to TCU today. Patient asked when he would go. SW checked with patient's RN and patient has an antibiotic running so it will be a couple of hours. SW notified patient. Plan: d/c to [facility] TCU under skilled level of care. Leann JUAREZ
--- NOTE | 2023-01-29 18:31 | NURSING ---
1831 Report called to TCU Nurse
== END 2023-01-29 18:43 | disposition skilled nursing facility (03) | DRG 177 ==
LOC: ED 19:04 → ICU 21:47 → PCU 01-28 16:51
PROVIDERS: Internal Medicine Critical Care Medicine; Admitting Provider Internal Medicine; Emergency Provider Emergency Medicine; PCP Physician Assistant; Referring Provider Internal Medicine
DX: J69.0 Pneumonitis due to inhalation of food and vomit (principal); E43 Unspecified severe protein-calorie malnutrition; J96.21 Acute and chronic respiratory failure with hypoxia; I42.9 Cardiomyopathy, unspecified; B37.0 Candidal stomatitis; I47.10 Supraventricular tachycardia, unspecified; I50.22 Chronic systolic (congestive) heart failure; Z93.0 Tracheostomy status; C13.9 Malignant neoplasm of hypopharynx, unspecified; N18.32 Chronic kidney disease, stage 3b; I48.0 Paroxysmal atrial fibrillation; Z93.1 Gastrostomy status; D53.9 Nutritional anemia, unspecified; E03.9 Hypothyroidism, unspecified; I95.89 Other hypotension; D50.9 Iron deficiency anemia, unspecified; G62.9 Polyneuropathy, unspecified; R11.10 Vomiting, unspecified; R19.7 Diarrhea, unspecified; B37.9 Candidiasis, unspecified; Z51.5 Encounter for palliative care; Z87.891 Personal history of nicotine dependence; Z66 Do not resuscitate; Z80.0 Family history of malignant neoplasm of digestive organs; Z79.01 Long term (current) use of anticoagulants
CPT/HCPCS: 31720; 36415; 71045; 80048; 80053; 80202; 81001; 82550; 83605; 83735; 84100; 85025; 85610; 85730; 87040; 87070; 87077; 87086; 87184; 87186; 87205; 87428; 87449; 87633; 87635; 87641; 93005; 94640; 94762; 97110; 97162; 97166; 97530; 97535; 97802; 99284; J2185; J7030; J7040; J7050; A4216; J0295; J2405

== ENCOUNTER 2023-01-29 19:00 | Inpatient (IN) | payer MEDICARE, OTHER, SELFPAY ==
--- NOTE | 2023-01-29 20:23 | HP.PCM_ITS ---
HPI - General General Date of Admission: 01/29/23 Date of Service: 01/30/23 Chief Complaint: Here for rehabilitation. HPI Narrative 01/26/2023 SERENITY ESTRADA, is a 77 Male who presents to [facility] Emergency Department, TCU resident with shortness of breath. Vomited thru trach, fever, concern with aspiration. Unasyn for aspiration pneumonia. Lactic acid 0.6. Urinalysis negative. IV fluids for hypotension, already on Midodrine. 01/26/2023 Admit to [facility] ICU. Chest X-ray showed right lower lobe infiltrate. Vancomycin, Meropenem for aspiration pneumonia. IV fluids for low blood pressure. 01/27/2023 Oxygen 5 liters via trach mask. Code status changed to DNRCC arrest with intubation. Vancomycin, Meropenem, ID consult for aspiration pneumonia. 01/28/2023 Previous sputum grew Klebsiella, Pseudomonas. Repeat sputum culture. Vancomycin, Meropenem, ID consult for aspiration pneumonia. Off Levophed, continue Midodrine for low blood pressure. Nystatin swish and swallow causes vomiting, change to Fluconazole via GT x 7 days for thrush. 01/29/2023 PT/OT for TCU. 01/29/2023 Admit to TCU with debility, here for rehabilitation, strengthening, prior to discharge home with significant other. [facility] Medical History Acute dehydration Acute uremia Agranulocytosis secondary to cancer chemotherapy Ambulates with cane Antineoplastic chemotherapy induced anemia Cancer CKD (chronic kidney disease), stage III Dietary restriction Dysphagia Former smoker Indwelling urethral catheter present shelter (current) use of systemic steroids Long-term use of high-risk medication Neuropathy On home oxygen therapy Pneumonia Pneumonitis 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 Shortness of breath on exertion Thrush, oral Tracheostomy in place tracheotomy and laryngeal biopsy Wears glasses Home Medications budesonide 0.5 mg/2 mL suspension for nebulization 0.5 mg (2 mL) inhalation BID breathing #120 mL 08/13/22 [Rx Last Taken 01/29/23] ipratropium 0.5 mg-albuterol 3 mg (2.5 mg base)/3 mL nebulization soln 3 ml inha lation Q4H PRN shortness of breath or wheezing #180 mL 08/14/22 [Rx Last Taken Unknown] gabapentin 300 mg capsule 300 mg feeding tube BID nerve pain #60 caps 11/30/22 [Rx Last Taken 01/29/23 09:55] lactose-reduced food with fiber 0.06 gram-1.5 kcal/mL oral liquid (Jevity 1.5 Dipesh) 300 ml G-tube 4X/DAY nutrition #0 mL 01/25/23 [Rx Last Taken 01/29/23] midodrine 5 mg tablet 15 mg (3 x 5 mg) G-tube TIDCM HYPOTENSION 30 days #270 tabs 01/25/23 [Rx Last Taken 01/29/23] menthol 0.44 %-zinc oxide 20.6 % topical ointment (CalaSoothe) 1 applic topical DAILY skin protectant 01/26/23 [History Last Taken Unknown] amiodarone 200 mg tablet 200 mg G-tube BID heart #0 tabs 01/29/23 [Rx Last Taken 01/29/23 09:50] apixaban 5 mg tablet (Eliquis) 2.5 mg (1/2 x 5 mg) G-tube BID blood thinner #0 tabs 01/29/23 [Rx Last Taken 01/29/23 09:50] ferrous sulfate 300 mg (60 mg iron)/5 mL oral liquid 300 mg (5 mL) G-tube BREAKFAST supplement #0 mL 01/29/23 [Rx Last Taken 01/29/23 09:50] fluconazole 10 mg/mL oral suspension 100 mg (10 mL) G-tube DAILY thrush #0 mL 01/29/23 [Rx Last Taken 01/29/23 09:50] guaifenesin 100 mg/5 mL oral liquid 50 mg (2.5 mL) G-tube Q4H PRN PRN COUGH #1,000 mL 01/29/23 [Rx Last Taken Unknown] levothyroxine 50 mcg tablet 50 mcg G-tube DAILY@0600 thyroid #0 tabs 01/29/23 [Rx Last Taken 01/29/23 05:40] meropenem 1 gram intravenous solution 1 g IV Q8H INFECTION #0 ea 01/29/23 [Rx Last Taken Unknown] omeprazole 20 mg capsule,delayed release 20 mg feeding tube DAILY reflux #30 caps 01/29/23 [Rx Last Taken 01/29/23 08:45] Allergy/AdvReac Type Severity Reaction Status Date / Time venom-wasp Allergy Anaphylaxis Verified 01/13/23 17:29 pseudoephedrine HCl AdvReac Severe Unknown Verified 01/13/23 17:29 [From Sudafed] Antihistamines - Alkylamine AdvReac Mild Other Verified 01/13/23 17:29 Family History Father Colon cancer Hypertension Mother Hypertension Surgical History History of gastrostomy History of surgery History of tracheostomy Hx of tonsillectomy S/P percutaneous endoscopic gastrostomy (PEG) tube placement S/P TURP Social History (Updated 01/29/23 @ 20:[address] Darshan Laboy MD) household members: significant other Smoking Status: Former smoker quit date: 04/08/17 pack-years: 55 alcohol intake: never substance use type: does not use ROS Constitutional Constitutional: Denies chills, fever(s) or weight gain ENT HEENT: Denies headache(s), nasal congestion or nasal discharge Cardiovascular Cardiovascular: Denies chest pain or palpitations Respiratory/Chest Respiratory/Chest: Denies cough, excessive phlegm production or shortness of breath with exertion Gastrointestinal Gastrointestinal: Denies abdominal pain, nausea or vomiting Genitourinary Genitourinary: Denies dysuria Musculoskeletal Musculoskeletal: Denies joint pain or joint swelling Integumentary Integumentary: Denies rash or wounds Neurologic Neurologic: Denies focal weakness, numbness or tingling Psychiatric Psychiatric: Denies anxiety, auditory hallucinations, depression, homicidal ideation or suicidal ideation Physical Exam Const alert General Appearance: cooperative HEENT normocephalic Eyes PERRL and EOMs intact bilaterally Neck supple, no JVD and no carotid bruits Neck Narrative: Tracheostomy. Chest Chest Narrative: Left upper chest port. Resp normal respiratory effort, normal air movement and clear to auscultation bilaterally Cardio regular rate and regular rhythm GI normal to inspection, nondistended, normoactive bowel sounds, non-tender and non-distended GI Narrative: PEG. Extremity normal capillary refill General Extremity: Negative for edema Skin no rashes or lesions noted General Skin Exam: no breakdown Psych affect normal Appearance: appropriate Results Lab / Micro Data 01/30/23 05:31 01/30/23 05:31 Assessment & Plan Assessment/Plan (1) Debility: (2) Acute and chronic respiratory failure: QUALIFIERS: Respiratory failure complication: hypoxia Qualified Code(s): J96.21 - Acute and chronic respiratory failure with hypoxia (3) Aspiration pneumonia: QUALIFIERS: Laterality: right Lung location: lower lobe of lung (4) Chronic hypotension: (5) Hypotension: (6) Thrush: (7) Recurrent vomiting: (8) Atrial fibrillation: (9) COPD (chronic obstructive pulmonary disease): QUALIFIERS: COPD type: unspecified COPD Qualified Code(s): J44.9 - Chronic obstructive pulmonary disease, unspecified (10) Heart failure with reduced ejection fraction: (11) Neuropathic pain: (12) Hypothyroidism: QUALIFIERS: Hypothyroidism type: due to medication Qualified Code(s): E03.2 - Hypothyroidism due to medicaments and other exogenous substances (13) GERD (gastroesophageal reflux disease): PLAN: Plan 77 year old male with below past medical history hospitalized for acute on chronic respiratory failure secondary to aspiration pneumonia, complicated by recurrent vomiting secondary to Nystatin, hypotension, admitted to TCU with debility, here for rehabilitation, strengthening, prior to discharge home with significant other. * Debility - PT/OT. * Pain - Monitor. * Bowel - Monitor. * Adult immunization - Administer pneumonia vaccine, covid19 vaccine, flu vaccine as appropriate. * DVT prophylaxis - on Eliquis. * Nutrition - Jevity 1.5 300ml 4x/day. * Atrial fibrillation - Amiodarone 200mg bid, Eliquis 2.5mg bid. * COPD - Budesonide 0.5mg bid, Duoneb 3ml q4h prn. * Iron deficiency anemia - Ferrous sulfate 300mg daily. * Thrush - Fluconazole 100mg daily thru . * Neuropathic pain - Gabapentin 300mg gt bid. * Cough - Robitussin 10ml q4h prn. * Hypothyroidism - Levothyroxine 50mcg daily. * Skin irritation - Calmoseptine topical daily. * Aspiration pneumonia - Meropenem 1gm iv q8 thru 02/04/2023. * Orthostatic hypotension - Midodrine 15mg tidcm. * GERD - Pantoprazole 20mg daily. * Dehydration - Normal saline 1 liter IV bolus MWF.
--- NOTE | 2023-01-29 21:01 | NURSING ---
Addendum entered by Donny Abdalla 01/30/23 00:39: Written communication left for Dr. Laboy regarding patient declining port change/re-access until infusion center available if needed, patient also requesting lidocaine PRN with port site re-access. Original Note: Discussed with patient port due to be changed, per patient request and manufacturer representative (Christiane) wait for chest port to be re-accessed/changed until tomorrow when oncology is here in case we need them like last time, because he has had to have his chest port placed 5 times. Will relay to radha RN patient request to be changed 01/30/23
--- NOTE | 2023-01-29 21:02 | NURSING ---
Addendum entered by Donny Abdalla 01/30/23 00:41: Patient and rep (Christiane) requesting Lansaprasole be changed to IV protonix due to previous difficulty having med administered through g-tube, written communication left for Dr. Laboy Original Note: Patient alert and oriented x4 to person/place/time/situation, patient able to answer questions correctly in writing due to trach in place. Discussed code status with patient, patient rep (Christiane) present during conversation. Per patient, code status to be DNRCCA with intubation.
[2023-01-29 21:15] VITALS: O2SAT 98
[2023-01-29 22:00] VITALS: PULSE 77; RESP 18; O2SAT 99
[2023-01-29 23:00] VITALS: BP 126/66; PULSE 75; RESP 18; TEMP 36.8; O2SAT 99
[2023-01-29] MEDS: 0.9 % NaCl (Sterile) Posiflush 10 mL IV (23:01)
[2023-01-29] MEDS: 0.9% Normal Saline (250mL Bag) 250 ML 15 ML IV (23:01)
[2023-01-29] MEDS: APIXABAN 2.5 MG TABLET (WCH) GT (23:01)
[2023-01-29] MEDS: Meropenem 1 GM in 0.9% Normal Saline (100mL MB+) 100 ML IV (23:02)
[2023-01-29] MEDS: Gabapentin 300 MG Capsule GT (23:02)
[2023-01-29] MEDS: Amiodarone 200 MG Tablet GT (23:02)
--- NOTE | 2023-01-29 23:30 | NURSING ---
Trach care offered and declined by patient, patient states does not like trach dressing at HS, no drainage observed from trach site, area clean/dry/intact. Trach collar in place with 4L O2, SpO2 @99%. No resp distress observed or reported. IV Merrem infusing per order. No distress observed or reported. Denies requests. Call light in reach.
[2023-01-30] VITALS (9 sets, daily range): BP systolic 104–118; BP diastolic 55–65; PULSE 72–92; RESP 16–18; TEMP 36.6; O2SAT 96–100; BMI 24.6
[2023-01-30] MEDS: 0.9 % NaCl (Sterile) Posiflush 10 mL IV ×3 (03:51→18:37)
[2023-01-30] MEDS: Levothyroxine 50 MCG Tablet GT (05:43)
[2023-01-30] MEDS: 0.9% Saline Lock 10 ML Syringe IV ×2 (05:43→22:25)
[2023-01-30] MEDS: Meropenem 1 GM in 0.9% Normal Saline (100mL MB+) 100 ML IV ×3 (05:46→22:25)
[2023-01-30 05:54] LABS: Absolute Lymphocyte Count 1.93 X10^3/uL (0.83-4.51); Absolute Neutrophil Count 2.5 X10^3/uL (2.0-7.7); Basophil# 0.08 X10^3/uL; Basophil% 1.5 % (0-1); Eosinophil# 0.42 X10^3/uL; Eosinophils% 7.7 % (0-5); Hematocrit 27.6 % (40-54); Lymphocyte # 1.93 X10^3/ul (0.83-4.51); Lymphocyte % 35.4 % (19-41); Mean Corpuscular Hgb 29.4 pg (27.0-32.0); Mean Corpuscular Volume 101.5 fL (80-94); Mean Platelet Vol. 11.2 fl (6.2-12.0); Monocyte# 0.49 X10^3/uL; NRBC Flagged by Analyzer 0 % (0-5); Neutrophil % 45.8 % (47-70); Platelet Count 260 K/mm3 (150-450); RBC Distribution Width CV 16.6 % (11.6-14.6); Red Blood Count 2.72 M/mm3 (4.6-6.2); White Blood Count 5.5 K/mm3 (4.4-11.0)
[2023-01-30 06:28] LABS: Anion Gap -1 (5-15); BUN 14 mg/dL (7-18); BUN/Creat Ratio 13.9 RATIO (10-20); Calcium,Total 8.7 mg/dL (8.5-10.1); Chloride 109 mmol/L (98-107); Creatinine, Serum 1.01 mg/dL (0.70-1.30); EST Glomerular Filtration Rate 76 mL/min (>60); Est Glom Filt Rate - Afr Amer 92 mL/min (>60); Estimated Creatinine Clearance 57.03 ml/min; Glucose 75 mg/dL (74-106); Potassium 4.4 mmol/L (3.5-5.1); Sodium Level 140 mmol/L (136-145)
[2023-01-30] MEDS: Jevity 1.5. 1,000 ML Bottle 300 ML GT ×3 (06:46→18:25)
[2023-01-30] MEDS: Midodrine HCl 5 MG Tablet 15 MG GT ×3 (06:49→18:21)
[2023-01-30] MEDS: Ipratropium/Albuterol Sulfate 3 ML AMPUL.NEB INHALATION ×2 (07:40→20:00)
[2023-01-30] MEDS: Budesonide Respules 0.5 MG/2 ML AMPUL.NEB. INHALATION ×2 (07:41→20:00)
[2023-01-30] MEDS: Menthol/Lanolin/Calamine/Znox 113 GM Tube 1 APPLIC TOPICAL (10:11)
[2023-01-30] MEDS: Amiodarone 200 MG Tablet GT ×2 (10:12→22:28)
[2023-01-30] MEDS: APIXABAN 2.5 MG TABLET (WCH) GT ×2 (10:12→22:28)
[2023-01-30] MEDS: Gabapentin 300 MG Capsule GT ×2 (10:18→22:28)
[2023-01-30] MEDS: Pantoprazole Sodium 40 MG in 0.9% Normal Saline (100mL MB+) 100 ML 330 MG IV (10:33)
--- NOTE | 2023-01-30 11:15 | NURSING ---
Recreation Engineer Note; Activity Asset: Dina Cha has returned for continued therapy and remains independent in his choice of daily activities and due to his medical condition has stated he prefers to do independent activities in his room . He will watch tv, read and visit with family, friends and the father from [facility]'s will visits. Staff will take in word puzzles, newspapers and continue to remind him of daily activities and respect his right to say no.
[2023-01-30] MEDS: Ferrous Sulfate 300 MG/5 ML UDC GT (11:41)
[2023-01-30] MEDS: Fluconazole 10 MG/ML 35 ML Bottle 100 MG GT (11:42)
--- NOTE | 2023-01-30 11:56 | NURSING ---
PEG tube placement checked, no residual noted. Pt tolerated well, denies discomfort.
--- NOTE | 2023-01-30 12:36 | CASEMGMT ---
Social Work Pt is a readmit. No changes to assessment. Pt admitted on day 7 of Medicare benefit. Pt wishes to be DNR-CCA, no intubation. Nursing aware. SW will continue to follow for DC planning. LEEANNE WillisW
--- NOTE | 2023-01-30 13:33 | NURSING ---
Administered Jevity; patient refused 1st 1oomL flush, only accepted 20mL for 2nd flush. Tolerated well
--- NOTE | 2023-01-30 14:13 | NURSING ---
per pt's request, Infusion nurse replaced needle hub and dressing to port, reports good blood return.
[2023-01-30] MEDS: 0.9% Normal Saline (250mL Bag) 250 ML 33 ML IV (18:35)
--- NOTE | 2023-01-30 21:45 | NURSING ---
Contacted Pharmacy regarding 1400 Merrem dose administered late, requested if ok to administer 2200 Merrem dose as ordered, per pharmacist (Ki) safe to administer at 2200 and continue as ordered
--- NOTE | 2023-01-30 22:16 | NURSING ---
Per significant other Christiane, Jevity administered as ordered. Jevity not administered by this nurse. Jevity able to be administered by significant other (Christiane) as ordered.
[2023-01-31] MEDS: 0.9% Saline Lock 10 ML Syringe IV ×2 (03:04→05:37)
[2023-01-31] MEDS: Meropenem 1 GM in 0.9% Normal Saline (100mL MB+) 100 ML IV ×3 (05:37→23:11)
[2023-01-31] MEDS: Levothyroxine 50 MCG Tablet GT (05:45)
[2023-01-31 06:24] LABS: Hematocrit 26.3 % (40-54)
[2023-01-31] MEDS: Budesonide Respules 0.5 MG/2 ML AMPUL.NEB. INHALATION (06:51)
[2023-01-31] MEDS: Jevity 1.5. 1,000 ML Bottle 300 ML GT ×3 (06:51→17:26)
[2023-01-31 06:54] VITALS: PULSE 80; RESP 16; O2SAT 100
[2023-01-31] MEDS: Midodrine HCl 5 MG Tablet 15 MG GT ×3 (06:58→17:26)
[2023-01-31 09:38] VITALS: BP 107/58; PULSE 80; RESP 18; TEMP 36.7; O2SAT 95
[2023-01-31] MEDS: APIXABAN 2.5 MG TABLET (WCH) GT ×2 (09:43→21:40)
[2023-01-31] MEDS: Amiodarone 200 MG Tablet GT ×2 (09:43→21:40)
[2023-01-31] MEDS: Furosemide 40 MG/4 ML Vial IV (09:43)
[2023-01-31] MEDS: Gabapentin 300 MG Capsule GT ×2 (09:44→21:40)
[2023-01-31] MEDS: Pantoprazole Sodium 40 MG in 0.9% Normal Saline (100mL MB+) 100 ML 330 MG IV (09:44)
[2023-01-31] MEDS: Fluconazole 10 MG/ML 35 ML Bottle 100 MG GT (09:44)
[2023-01-31] MEDS: 0.9 % NaCl (Sterile) Posiflush 10 mL IV ×2 (09:45→13:52)
[2023-01-31 10:00] VITALS: PULSE 80
[2023-01-31] MEDS: Menthol/Lanolin/Calamine/Znox 113 GM Tube 1 APPLIC TOPICAL (10:05)
[2023-01-31] MEDS: Ferrous Sulfate 300 MG/5 ML UDC GT (12:13)
[2023-02-01] MEDS: Levothyroxine 50 MCG Tablet GT (06:01)
[2023-02-01] MEDS: Jevity 1.5. 1,000 ML Bottle 300 ML GT ×4 (06:52→22:15)
[2023-02-01] MEDS: Meropenem 1 GM in 0.9% Normal Saline (100mL MB+) 100 ML IV ×3 (06:53→22:30)
[2023-02-01] MEDS: Budesonide Respules 0.5 MG/2 ML AMPUL.NEB. INHALATION ×2 (07:30→18:51)
[2023-02-01 07:35] VITALS: PULSE 79; RESP 21; O2SAT 96
[2023-02-01] MEDS: Midodrine HCl 5 MG Tablet 15 MG GT ×3 (08:43→17:10)
[2023-02-01 08:45] VITALS: BP 94/55; PULSE 87
[2023-02-01] MEDS: Menthol/Lanolin/Calamine/Znox 113 GM Tube 1 APPLIC TOPICAL (10:00)
[2023-02-01] MEDS: Gabapentin 300 MG Capsule GT ×2 (10:00→22:08)
[2023-02-01] MEDS: Amiodarone 200 MG Tablet GT ×2 (10:00→22:11)
[2023-02-01] MEDS: Fluconazole 10 MG/ML 35 ML Bottle 100 MG GT (10:00)
[2023-02-01] MEDS: APIXABAN 2.5 MG TABLET (WCH) GT ×2 (10:00→22:11)
[2023-02-01] MEDS: Pantoprazole Sodium 40 MG in 0.9% Normal Saline (100mL MB+) 100 ML 330 MG IV (10:08)
[2023-02-01 12:14] VITALS: BP 102/58; PULSE 76; RESP 16; TEMP 36.4; O2SAT 100
[2023-02-01] MEDS: Ferrous Sulfate 300 MG/5 ML UDC GT (12:37)
[2023-02-01 12:44] VITALS: BP 109/66; PULSE 80
[2023-02-01] MEDS: 0.9 % NaCl (Sterile) Posiflush 10 mL IV ×2 (14:01→22:31)
[2023-02-01] MEDS: 0.9% Normal Saline (250mL Bag) 250 ML 15 ML IV (14:03)
[2023-02-01] MEDS: 0.9% Normal Saline (1000mL) 1,000 ML 999 ML IV (17:21)
[2023-02-01 18:51] VITALS: PULSE 82; RESP 18
[2023-02-02] MEDS: Meropenem 1 GM in 0.9% Normal Saline (100mL MB+) 100 ML IV ×3 (05:34→22:30)
[2023-02-02] MEDS: Levothyroxine 50 MCG Tablet GT (05:37)
[2023-02-02] MEDS: Jevity 1.5. 1,000 ML Bottle 300 ML GT ×4 (06:40→23:03)
[2023-02-02 07:02] VITALS: PULSE 86; RESP 16; O2SAT 92
[2023-02-02] MEDS: Ipratropium/Albuterol Sulfate 3 ML AMPUL.NEB INHALATION (07:02)
[2023-02-02] MEDS: Budesonide Respules 0.5 MG/2 ML AMPUL.NEB. INHALATION ×2 (07:02→19:04)
[2023-02-02 09:01] LABS: Hematocrit 29.5 % (40-54); Hemoglobin 8.8 g/dL (13.0-16.5)
[2023-02-02] MEDS: Gabapentin 300 MG Capsule GT ×2 (09:19→21:25)
[2023-02-02] MEDS: APIXABAN 2.5 MG TABLET (WCH) GT ×2 (09:20→21:24)
[2023-02-02] MEDS: Amiodarone 200 MG Tablet GT ×2 (09:20→21:25)
[2023-02-02] MEDS: Midodrine HCl 5 MG Tablet 15 MG GT ×3 (09:20→17:26)
[2023-02-02] MEDS: Fluconazole 10 MG/ML 35 ML Bottle 100 MG GT (09:21)
[2023-02-02] MEDS: Pantoprazole Sodium 40 MG in 0.9% Normal Saline (100mL MB+) 100 ML 330 MG IV (10:15)
[2023-02-02] MEDS: 0.9 % NaCl (Sterile) Posiflush 10 mL IV ×3 (11:21→17:26)
--- NOTE | 2023-02-02 12:03 | PHA.CONS_ITS ---
Documented by User: Randall Massey 02/02/23 13:13 TCU RX Drug Regimen Review Subjective/Objective Subjective/Objective: Subjective: 77 year old male with below past medical history hospitalized for acute on chronic respiratory failure secondary to aspiration pneumonia, c omplicated by recurrent vomiting secondary to Nystatin, hypotension, admitted to TCU with debility, here for rehabilitation, strengthening, prior to discharge home with significant other. Objective: Allergies venom-wasp Allergy (Verified 01/13/23 17:29) Anaphylaxis patient states allergy is to yellow jackdets nystatin Adverse Reaction (Severe, Verified 01/31/23 07:44) Nausea/Vom/Diarrhea pseudoephedrine HCl [From [employer] Adverse Reaction (Severe, Verified 01/13/23 17:29) Unknown pain Antihistamines - Alkylamine Adverse Reaction (Mild, Verified 01/13/23 17:29) Other PT UNABLE TO URINATE WHEN TAKING ANTIHISTAMINES ROUTINELY Current Medications Generic Name Dose Route Start Last Admin Trade Name Freq PRN Reason Stop Dose Admin Albuterol/Ipratropium 3 ml 01/29/23 19:34 02/02/23 07:02 Ipratropium/Albuterol Sulfate 3 Ml Ampul.Neb INHALATION 3 ml Q4H PRN Administration shortness of breath or wheezing Amiodarone HCl 200 mg 01/29/23 22:00 02/02/23 09:20 Amiodarone 200 Mg Tablet GT 200 mg BID CEASAR Administration Apixaban 2.5 mg 01/29/23 22:00 02/02/23 09:20 Apixaban 2.5 Mg Tablet (Wch) GT 2.5 mg BID CEASAR Administration Budesonide 0.5 mg 01/29/23 22:00 02/02/23 07:02 Budesonide Respules 0.5 Mg/2 Ml Ampul.Neb. INHALATION 0.5 mg BID.RT CEASAR Administration Calamine/Phenol 1 applic 01/30/23 10:00 02/01/23 10:00 Menthol/Lanolin/Calamine/Znox 113 Gm Tube TOPICAL 1 applic DAILY CEASAR Administration Protocol Enteral Nutritional Formula 300 ml 01/29/23 22:00 02/02/23 06:40 Jevity 1.5. 1,000 Ml Bottle GT 240 ml 4X/DAY CEASAR Administration Ferrous Sulfate 300 mg 01/30/23 12:00 02/01/23 12:37 Ferrous Sulfate 300 Mg/5 Ml Udc GT 300 mg DAILY@1200 CEASAR Administration Fluconazole 100 mg 01/30/23 10:00 02/02/23 09:21 Fluconazole 10 Mg/Ml 35 Ml Bottle GT 02/04/23 12:00 100 mg DAILY CEASAR Administration Gabapentin 300 mg 01/29/23 22:00 02/02/23 09:19 Gabapentin 300 Mg Capsule GT 300 mg BID CEASAR Administration Guaifenesin 10 ml 01/29/23 20:37 Guaifenesin 10 Ml Udc (200mg/10ml) GT Q4H PRN PRN COUGH Heparin Sodium (Beef Lung) 50 units 01/29/23 20:03 Heparin Pf Lock 10 Units/Ml 50 Units/5 Ml Syringe IV UD PRN Port-a-Cath (VAD)Heparin Flush Meropenem 1 gm/ Sodium 120 mls @ 33 mls/hr 01/29/23 22:00 02/02/23 09:50 Chloride IV 02/04/23 23:59 Infused Q8 CEASAR Infusion Sodium Chloride 250 mls @ 15 mls/hr 01/29/23 20:03 02/02/23 06:45 IV Infused .[id number] PRN Infusion Additional IVPB Infusion Sodium Chloride 250 mls @ 15 mls/hr 01/29/23 20:03 IV .[id number] PRN Saline Flush Sodium Chloride 1,000 mls @ 999 mls/hr 01/30/23 18:00 02/01/23 18:25 IV Infused [id number] CEASAR Infusion Pantoprazole Sodium 40 mg/ 110 mls @ 330 mls/hr 01/30/23 10:00 02/02/23 10:45 Sodium Chloride IV Infused Q24 CEASAR Infusion Levothyroxine Sodium 50 mcg 01/30/23 06:00 02/02/23 05:37 Levothyroxine 50 Mcg Tablet GT 50 mcg DAILY@0600 CEASAR Administration Lidocaine HCl 1 applic 01/30/23 08:50 Lidocaine Jelly 2% 20 Ml Syringe (Uro-Jet) TOPICAL Q6H PRN Pain/Inflammation Protocol Midodrine 15 mg 01/30/23 07:45 02/02/23 09:20 Midodrine Hcl 5 Mg Tablet GT 15 mg TIDCM CEASAR Administration Sodium Chloride 10 - 40 ml 01/29/23 20:03 02/02/23 11:21 0.9 % Nacl (Sterile) Posiflush 10 Ml IV 10 ml UD PRN Administration Port access or dressing change Sodium Chloride 10 - 40 ml 01/29/23 20:03 01/31/23 05:37 0.9% Saline Lock 10 Ml Syringe IV 10 ml UD PRN Administration Port-a-Cath (VAD) Flush Tuberculin PPD 0.1 ml 02/06/23 10:00 Tuberculin,Purif.Prot.Deriv. 50 Tu/Ml Vial ID 02/06/23 10:01 X1 ONE Problem List (Updated 01/29/23 @ 20:[address] Darshan Laboy MD) Heart failure with reduced ejection fraction (Acute) Thrush (Acute) Recurrent vomiting (Acute) Hypotension (Acute) Chronic hypotension (Chronic) Aspiration pneumonia (Acute) Neuropathic pain (Acute) GERD (gastroesophageal reflux disease) (Acute) Atrial fibrillation (Acute) Debility (Acute) COPD (chronic obstructive pulmonary disease) (Suspected) Hypothyroidism (Chronic) Vital Signs Temp Pulse Resp BP Pulse Ox O2 Del Method O2 Flow Rate 97.5 F L 86 16 109/66 92 Trach Collar 3.5 02/01/23 12:14 02/02/23 07:02 02/02/23 07:02 02/01/23 12:44 02/02/23 07:02 02/02/23 07:02 02/02/23 07:02 Oxygen Flow Rate (L/min) 3.5 Oxygen Delivery Method Trach Collar Weight: 69.598 kg Body Mass Index (BMI) 24.6 Sodium 140 mmol/L (136-145) 01/30/23 05:31 Potassium 4.4 mmol/L (3.5-5.1) 01/30/23 05:31 Chloride 109 mmol/L (98-107) H 01/30/23 05:31 Carbon Dioxide 32.0 mmol/L (21.0-32.0) 01/30/23 05:31 Anion Gap -1 (5-15) L 01/30/23 05:31 BUN 14 mg/dL (7-18) 01/30/23 05:31 Creatinine 1.01 mg/dL (0.70-1.30) 01/30/23 05:31 Est GFR (MDRD) Af Amer 92 mL/min (>60) 01/30/23 05:31 Est GFR (MDRD) Non-Af 76 mL/min (>60) 01/30/23 05:31 BUN/Creatinine Ratio 13.9 RATIO (10-20) 01/30/23 05:31 Glucose 75 mg/dL (74-106) 01/30/23 05:31 Assessment/Plan: 1. Aspiration pneumonia: meropenem 1 gram IV Q8H, through 02/04/23. Please continue to monitor for resolution of infection, WBC count (WBC = 5.5 K/mm3 on 01/30/23), for fevers (temps = 97.3-98.3 recently), for chills, , for diarrhea, renal function (serum creatinine = 1.01 mg/dL with creatinine clearance ~ 57 on 01/30/23), and for seizure/delirium. 2. Atrial Fibrillation: apixaban 2.5 mg via GT BID, amiodarone 200 mg via GT BID. Please continue to monitor for s/s that the patient is in atrial fibrillation such as for heart palpitations, heart rate (recent range = 72-92 beats/min), for bleeding/bruising, hemoglobin levels (Hgb = 8.8 g/dL on 02/02/23), platelet count (PLT = 260 K/mm3 on 01/30/23), renal function (serum creatinine = 1.01 mg/dL with creatinine clearance ~ 57 on 01/30/23), LFTs (AST/ALT = 19/25 on 01/30/23), TSH (TSH = 1.05 uIU/mL on 12/13/22), and T4 levels (T4 = 1.07 ng/dL on 12/13/22). 3.COPD: budesonide 0.5 mg nebulization BID, ipratropium/albuterol 3 mL nebulization Q4H PRN. The patient has used 3 doses of PRN ipratropium/albuterol this admission. Please continue to monitor for s/s of COPD exacerbation such as cough and sputum production as well as respiratory rate (recent range = 16-21 breaths/min), O2 saturation (recent range = 92-100%), for oral thrush, pneumonia, heart palpitations, heart rate (recent range = 72-92 beats/min), and s/s of anticholinergic effects of ipratropium such as dry mouth, dry eyes, urinary retention, constipation and delirium. As the patient is currently being treated for oral thrush, please ensure that the patients mouth is rinsed after every administration of budesonide. 4. Thrush: fluconazole 100 mg GT daily through 02/04/23. Please continue to monitor for resolution of oral thrush, as well as LFTs (AST/ALT = 19/25 on 01/30/23). 5. Iron deficiency anemia: ferrous sulfate 325 mg GT daily. Please continue to monitor hemoglobin levels (Hgb = 8.8 g/dL on 02/02/23), iron levels (Iron = 49 ug/dL on 06/04/22), and for constipation and discolored stools. 6. Hypothyroidism: levothyroxine 50 mcg GT daily. Please continue to monitor for s/s of hypo/hyperthyroidism as well as TSH (TSH = 1.05 uIU/mL on 12/13/22), and T4 (T4 = 1.07 ng/dL on 12/13/22). 7. Neuropathic pain: gabapentin 300 mg GT daily. Please continue to monitor for neuropathic pain, for lower extremity swelling, for COMMISSARY HELPER and respiratory depression, and for SI. 8. GERD: pantoprazole 40 mg IV daily. Please continue to monitor for s/s of GERD as well as for diarrhea that could indication clostridium difficile infection, and for s/s of bone resorption such as fracture. The patient was originally on lansoprazole disintegrating but unfortunately per RN report could not get through feeding tube, therefore will remain on IV pantoprazole for now. 9. Orthostatic hypotension: midodrine 15 mg GT TID with meals. Please continue to monitor blood pressures (recent range = 94-141/55-68 mmHg), for s/s of orthostasis such as dizziness and falls, and heart rate (recent range = 72-92 beats/min). 10. Cough: guaifenesin 10 mL GT Q4H PRN cough. The patient has not used any PRN doses of guaifenesin yet this admission. Please continue to monitor for cough, PRN medication usage, and for dizziness, drowsiness and headache. 11. Dehydration: normal saline 1000 mL IV every Saturday, Saturday, and Saturday. Please monitor for s/s of dehydration as well as for s/s of fluid overload. 12. Nutrition: Jevity 1.5 300 mL GT 4 times daily. Please continue to monitor overall nutritional status. 13. Skin irritation: calmoseptine 1 application topically daily. Please continue to monitor for skin irritation. 14. Port change pain: lidocaine urojet application topically Q6H PRN port changes. Please continue to monitor for PRN usage and for pain during port c hanges. Assessment/Plan for indications treated with psychotropic medications: NA Medical chart and medication regimen reviewed. The following medication irregu larities or issues were identified: NA Date Date of Note:: 02/02/23 Documented by User: Dr. Darshan Laboy MD 02/03/23 09:35 TCU RX Drug Regimen Review Provider Comments Provider responsibility Provider Comments to Recommendations by Pharmacy: Agree
[2023-02-02] MEDS: Ferrous Sulfate 300 MG/5 ML UDC GT (13:10)
[2023-02-02] MEDS: Menthol/Lanolin/Calamine/Znox 113 GM Tube 1 APPLIC TOPICAL (13:28)
[2023-02-02 13:29] VITALS: BP 112/64; PULSE 74; RESP 18; TEMP 36.6; O2SAT 99
--- NOTE | 2023-02-02 13:41 | NURSING ---
Pt refused full 300mL Jevity feed, accepted 240mL. Refused 100mL flushes, accepted 70mL.
[2023-02-02 15:22] VITALS: BP 118/66; PULSE 72; RESP 18; TEMP 36.6; O2SAT 100
--- NOTE | 2023-02-02 17:39 | NURSING ---
Patient's significant other present at bedside; upset when nursing staff refused request to mix meds with Jevity feeding (due to pt occasionally refusing full Jevity doses/flushes). Education ineffective.
[2023-02-02 19:04] VITALS: PULSE 78; RESP 24
[2023-02-02] MEDS: 0.9% Saline Lock 10 ML Syringe IV (22:28)
[2023-02-02] MEDS: 0.9% Normal Saline (250mL Bag) 250 ML 15 ML IV (22:28)
[2023-02-03] MEDS: 0.9% Saline Lock 10 ML Syringe IV ×2 (03:12→06:09)
--- NOTE | 2023-02-03 03:13 | NURSING ---
2200 jevity feeding- Patient only took 240mL's of jevity. Would only accept 60mL flushes before and after.
--- NOTE | 2023-02-03 03:14 | NURSING ---
This nurse as doing dressing changes for patient, when asked if patient wanted trach dressing changed and PEG dressing placed, patient refused. Skin tear dressings were changed and dated.
[2023-02-03] MEDS: Levothyroxine 50 MCG Tablet GT (05:13)
[2023-02-03] MEDS: Meropenem 1 GM in 0.9% Normal Saline (100mL MB+) 100 ML IV ×3 (06:09→22:42)
[2023-02-03] MEDS: Jevity 1.5. 1,000 ML Bottle 300 ML GT ×3 (06:17→18:08)
[2023-02-03] MEDS: Budesonide Respules 0.5 MG/2 ML AMPUL.NEB. INHALATION ×2 (07:05→20:25)
--- NOTE | 2023-02-03 07:16 | NURSING ---
No documented bowel movement since 01/29. When this nurse asked patient if this sounded right patient shook head yes, and wrote in notebook, Not much in there except a little banana. Patient has been taking 240 ml of jevity along with banana and protein powder. Patient only taking about 30-60 cc flushes before and after. Bowel sounds normal. No PRN medication for bowel movement will notify MD and await new orders if needed.
[2023-02-03 08:03] VITALS: PULSE 80; RESP 18
[2023-02-03] MEDS: Midodrine HCl 5 MG Tablet 15 MG GT ×3 (09:42→17:52)
[2023-02-03] MEDS: Gabapentin 300 MG Capsule GT ×2 (09:44→21:06)
[2023-02-03] MEDS: Amiodarone 200 MG Tablet GT ×2 (09:44→21:06)
[2023-02-03] MEDS: APIXABAN 2.5 MG TABLET (WCH) GT ×2 (09:44→21:06)
[2023-02-03] MEDS: Fluconazole 10 MG/ML 35 ML Bottle 100 MG GT (09:45)
[2023-02-03 09:57] VITALS: BP 116/70; PULSE 78; RESP 18; O2SAT 98
[2023-02-03 10:00] VITALS: PULSE 80; RESP 20; O2SAT 98
[2023-02-03] MEDS: Pantoprazole Sodium 40 MG in 0.9% Normal Saline (100mL MB+) 100 ML 330 MG IV (10:24)
[2023-02-03] MEDS: Menthol/Lanolin/Calamine/Znox 113 GM Tube 1 APPLIC TOPICAL (10:25)
[2023-02-03] MEDS: 0.9 % NaCl (Sterile) Posiflush 10 mL IV ×2 (10:25→18:00)
[2023-02-03] MEDS: Ferrous Sulfate 300 MG/5 ML UDC GT (11:34)
[2023-02-03 12:11] VITALS: BP 114/65; PULSE 81; RESP 20; O2SAT 98
[2023-02-03 12:12] VITALS: BP 112/62; PULSE 74; RESP 18; TEMP 36.4; O2SAT 94
--- NOTE | 2023-02-03 15:36 | NURSING ---
pt LBM 01/30, dr woodard updated, new order for mag citrate 150ml x1 via Gtube
[2023-02-03] MEDS: Magnesium Citrate 300 ML 150 ML GT (17:56)
[2023-02-03 19:25] VITALS: PULSE 81; RESP 18
[2023-02-03] MEDS: Ipratropium/Albuterol Sulfate 3 ML AMPUL.NEB INHALATION (20:25)
[2023-02-03] MEDS: 0.9% Normal Saline (250mL Bag) 250 ML 15 ML IV (22:39)
--- NOTE | 2023-02-03 22:53 | NURSING ---
Patient refused evening dose of Jevity, but did take eveing medications with 60 mls of water. States that he feels too full. Awaiting results from mag citrate given earlier in shift due to patient not having a bowel movement for multiple days. Bowel sounds normoactive at this time.
[2023-02-04] MEDS: Meropenem 1 GM in 0.9% Normal Saline (100mL MB+) 100 ML IV ×3 (05:32→22:02)
[2023-02-04] MEDS: Levothyroxine 50 MCG Tablet GT (05:59)
[2023-02-04] MEDS: Jevity 1.5. 1,000 ML Bottle 300 ML GT ×4 (06:39→21:57)
[2023-02-04] MEDS: Budesonide Respules 0.5 MG/2 ML AMPUL.NEB. INHALATION ×2 (07:50→19:00)
[2023-02-04] MEDS: Midodrine HCl 5 MG Tablet 15 MG GT ×2 (08:53→12:57)
[2023-02-04] MEDS: Lactulose 20 GM/30 ML UDC GT (08:53)
[2023-02-04] MEDS: APIXABAN 2.5 MG TABLET (WCH) GT ×2 (08:53→21:53)
[2023-02-04] MEDS: Amiodarone 200 MG Tablet GT ×2 (08:53→21:53)
[2023-02-04] MEDS: Gabapentin 300 MG Capsule GT ×2 (08:54→21:53)
[2023-02-04] MEDS: Menthol/Lanolin/Calamine/Znox 113 GM Tube 1 APPLIC TOPICAL (08:57)
[2023-02-04] MEDS: Pantoprazole Sodium 40 MG in 0.9% Normal Saline (100mL MB+) 100 ML 330 MG IV (10:16)
[2023-02-04] MEDS: Fluconazole 10 MG/ML 35 ML Bottle 100 MG GT (10:49)
--- NOTE | 2023-02-04 10:58 | NURSING ---
Offered covid vaccine, education provided. Patient refuses at this time.
[2023-02-04] MEDS: Ferrous Sulfate 300 MG/5 ML UDC GT (12:56)
[2023-02-04] MEDS: 0.9 % NaCl (Sterile) Posiflush 10 mL IV (13:51)
--- NOTE | 2023-02-04 14:21 | NURSING ---
Patient continues to request PEG tube bolus feed of only 240cc w/ 20 cc flush. Patient tolerated feed overall well. No s/s of regurgitation and discomfort.
[2023-02-04 15:04] VITALS: BP 121/69; PULSE 80; RESP 18; TEMP 36.3; O2SAT 100
[2023-02-04 16:46] VITALS: O2SAT 85
[2023-02-04 18:40] VITALS: BP 148/78
[2023-02-04] MEDS: 0.9% Normal Saline (1000mL) 1,000 ML 999 ML IV (18:56)
[2023-02-04 19:00] VITALS: PULSE 79; RESP 24; O2SAT 96
[2023-02-04] MEDS: Ipratropium/Albuterol Sulfate 3 ML AMPUL.NEB INHALATION (19:00)
[2023-02-04 19:49] VITALS: O2SAT 92
[2023-02-05] VITALS (7 sets, daily range): BP systolic 111–113; BP diastolic 63–71; PULSE 78–100; RESP 16–24; TEMP 36.4–37.2; O2SAT 94–99; BMI 23.2
[2023-02-05] MEDS: Levothyroxine 50 MCG Tablet GT (05:10)
[2023-02-05] MEDS: Jevity 1.5. 1,000 ML Bottle 300 ML GT ×4 (06:23→21:48)
[2023-02-05] MEDS: Budesonide Respules 0.5 MG/2 ML AMPUL.NEB. INHALATION ×2 (07:45→19:40)
[2023-02-05] MEDS: Ipratropium/Albuterol Sulfate 3 ML AMPUL.NEB INHALATION ×4 (07:47→19:40)
[2023-02-05] MEDS: Amiodarone 200 MG Tablet GT ×2 (08:53→21:47)
[2023-02-05] MEDS: Midodrine HCl 5 MG Tablet 15 MG GT ×3 (08:53→17:29)
[2023-02-05] MEDS: APIXABAN 2.5 MG TABLET (WCH) GT ×2 (08:54→21:47)
[2023-02-05] MEDS: Gabapentin 300 MG Capsule GT ×2 (08:56→21:47)
[2023-02-05] MEDS: Menthol/Lanolin/Calamine/Znox 113 GM Tube 1 APPLIC TOPICAL (09:05)
[2023-02-05] MEDS: Pantoprazole Sodium 40 MG in 0.9% Normal Saline (100mL MB+) 100 ML 330 MG IV (09:52)
[2023-02-05] MEDS: 0.9 % NaCl (Sterile) Posiflush 10 mL IV (09:53)
[2023-02-05] MEDS: 0.9% Normal Saline (250mL Bag) 250 ML 15 ML IV (09:56)
--- NOTE | 2023-02-05 12:50 | CASEMGMT ---
Social Work BIMS () and PHQ-2 () completed for MDS assessment. Liat Zee MSW RESIDENT SERVICES COORDINATOR
[2023-02-05] MEDS: Ferrous Sulfate 300 MG/5 ML UDC GT (13:35)
[2023-02-06] MEDS: Levothyroxine 50 MCG Tablet GT (05:05)
[2023-02-06 05:53] LABS: Absolute Lymphocyte Count 2.46 X10^3/uL (0.83-4.51); Absolute Neutrophil Count 2.3 X10^3/uL (2.0-7.7); Basophil% 1.5 % (0-1); Eosinophil# 1.17 X10^3/uL; Eosinophils% 17.9 % (0-5); Hematocrit 28.2 % (40-54); Hemoglobin 8.1 g/dL (13.0-16.5); Lymphocyte # 2.46 X10^3/ul (0.83-4.51); Lymphocyte % 37.6 % (19-41); Mean Corp Hgb Conc 28.7 g/dL (32-36); Mean Corpuscular Hgb 29.7 pg (27.0-32.0); Mean Corpuscular Volume 103.3 fL (80-94); Mean Platelet Vol. 11.1 fl (6.2-12.0); Monocyte% 7.6 % (0-10); NRBC Flagged by Analyzer 0 % (0-5); Neutrophil # 2.29 X10^3/uL (2.7-7.7); Neutrophil % 35.1 % (47-70); POSITIVE MORPHOLOGY YES; Platelet Count 272 K/mm3 (150-450); RBC Distribution Width CV 18.2 % (11.6-14.6); RBC Distribution Width SD 67.4 fl (35.1-43.9); Red Blood Count 2.73 M/mm3 (4.6-6.2); White Blood Count 6.5 K/mm3 (4.4-11.0)
[2023-02-06 06:05] LABS: Differential Indicated SCAN CRITERIA MET
[2023-02-06 06:17] LABS: Anion Gap 1 (5-15); BUN 23 mg/dL (7-18); BUN/Creat Ratio 16.3 RATIO (10-20); Chloride 105 mmol/L (98-107); Creatinine, Serum 1.41 mg/dL (0.70-1.30); EST Glomerular Filtration Rate 52 mL/min (>60); Est Glom Filt Rate - Afr Amer 63 mL/min (>60); Estimated Creatinine Clearance 40.85 ml/min; Glucose 72 mg/dL (74-106); Potassium 4.6 mmol/L (3.5-5.1); Sodium Level 141 mmol/L (136-145)
[2023-02-06 06:46] LABS: Anisocytosis 1+; Macrocytosis 2+
[2023-02-06 06:47] LABS: Acanthocytes 1+; Hypochromasia 1+
[2023-02-06] MEDS: Jevity 1.5. 1,000 ML Bottle 300 ML GT ×4 (06:55→21:49)
[2023-02-06 07:15] VITALS: PULSE 85; RESP 18; O2SAT 95
[2023-02-06] MEDS: Budesonide Respules 0.5 MG/2 ML AMPUL.NEB. INHALATION ×2 (07:15→18:35)
--- NOTE | 2023-02-06 09:10 | NURSING ---
Cab Supervisor Note; MDS for 02/05/2023 Complete
[2023-02-06] MEDS: Gabapentin 300 MG Capsule GT ×2 (09:27→21:45)
[2023-02-06] MEDS: APIXABAN 2.5 MG TABLET (WCH) GT ×2 (09:27→21:49)
[2023-02-06] MEDS: Midodrine HCl 5 MG Tablet 15 MG GT ×3 (09:27→17:43)
[2023-02-06] MEDS: Amiodarone 200 MG Tablet GT ×2 (09:27→21:48)
[2023-02-06] MEDS: 0.9% Saline Lock 10 ML Syringe IV ×3 (09:28→18:02)
[2023-02-06] MEDS: Pantoprazole Sodium 40 MG in 0.9% Normal Saline (100mL MB+) 100 ML 330 MG IV (09:28)
[2023-02-06] MEDS: Menthol/Lanolin/Calamine/Znox 113 GM Tube 1 APPLIC TOPICAL (09:39)
[2023-02-06] MEDS: Ferrous Sulfate 300 MG/5 ML UDC GT (12:05)
[2023-02-06 16:00] VITALS: BP 133/75; PULSE 90; RESP 18; TEMP 36.1; O2SAT 98
[2023-02-06] MEDS: 0.9% Normal Saline (1000mL) 1,000 ML 999 ML IV (18:01)
[2023-02-06 18:35] VITALS: PULSE 73; RESP 18; O2SAT 96
[2023-02-06 22:18] VITALS: O2SAT 94
[2023-02-07] VITALS (9 sets, daily range): BP systolic 92–143; BP diastolic 48–65; PULSE 53–79; RESP 16–20; TEMP 35.9; O2SAT 92–98
[2023-02-07] MEDS: Levothyroxine 50 MCG Tablet GT (05:12)
[2023-02-07] MEDS: 0.9% Saline Lock 10 ML Syringe IV (05:34)
[2023-02-07 06:03] LABS: Hematocrit 28.6 % (40-54); Hemoglobin 8.3 g/dL (13.0-16.5)
[2023-02-07] MEDS: Jevity 1.5. 1,000 ML Bottle 300 ML GT ×4 (06:10→22:47)
[2023-02-07] MEDS: Ipratropium/Albuterol Sulfate 3 ML AMPUL.NEB INHALATION ×4 (07:09→19:40)
[2023-02-07] MEDS: Midodrine HCl 5 MG Tablet 15 MG GT ×3 (08:52→17:29)
[2023-02-07] MEDS: Gabapentin 300 MG Capsule GT ×2 (08:53→21:13)
[2023-02-07] MEDS: APIXABAN 2.5 MG TABLET (WCH) GT ×2 (08:53→21:13)
[2023-02-07] MEDS: Amiodarone 200 MG Tablet GT ×2 (08:53→21:13)
[2023-02-07] MEDS: Menthol/Lanolin/Calamine/Znox 113 GM Tube 1 APPLIC TOPICAL (08:55)
[2023-02-07] MEDS: Pantoprazole Sodium 40 MG in 0.9% Normal Saline (100mL MB+) 100 ML 330 MG IV (10:44)
[2023-02-07] MEDS: 0.9 % NaCl (Sterile) Posiflush 10 mL IV (10:45)
[2023-02-07] MEDS: Budesonide Respules 0.5 MG/2 ML AMPUL.NEB. INHALATION ×2 (11:19→19:40)
[2023-02-07] MEDS: Ferrous Sulfate 300 MG/5 ML UDC GT (12:02)
--- NOTE | 2023-02-07 18:03 | NURSING ---
Pt refusing trach care today.
[2023-02-08] MEDS: Levothyroxine 50 MCG Tablet GT (05:37)
[2023-02-08] MEDS: Jevity 1.5. 1,000 ML Bottle 300 ML GT ×4 (06:28→21:12)
[2023-02-08] MEDS: Ipratropium/Albuterol Sulfate 3 ML AMPUL.NEB INHALATION (07:50)
[2023-02-08 07:53] VITALS: PULSE 88; RESP 16; O2SAT 99
[2023-02-08] MEDS: Budesonide Respules 0.5 MG/2 ML AMPUL.NEB. INHALATION ×2 (07:53→19:24)
[2023-02-08] MEDS: APIXABAN 2.5 MG TABLET (WCH) GT ×2 (09:29→21:13)
[2023-02-08] MEDS: Amiodarone 200 MG Tablet GT ×2 (09:29→21:13)
[2023-02-08] MEDS: Midodrine HCl 5 MG Tablet 15 MG GT ×3 (09:29→17:10)
[2023-02-08] MEDS: Gabapentin 300 MG Capsule GT ×2 (09:31→21:24)
[2023-02-08] MEDS: Menthol/Lanolin/Calamine/Znox 113 GM Tube 1 APPLIC TOPICAL (09:39)
[2023-02-08 09:44] VITALS: BP 103/57; PULSE 82
[2023-02-08] MEDS: Pantoprazole Sodium 40 MG in 0.9% Normal Saline (100mL MB+) 100 ML 330 MG IV (10:34)
[2023-02-08] MEDS: 0.9 % NaCl (Sterile) Posiflush 10 mL IV ×2 (10:35→17:18)
[2023-02-08] MEDS: Ferrous Sulfate 300 MG/5 ML UDC GT (11:24)
--- NOTE | 2023-02-08 11:45 | MDS.RN ---
Information for the mds was obtained from review of the clinical record, interview of resident, staff, and direct observation of resident's care.
--- NOTE | 2023-02-08 15:44 | CASEMGMT ---
Social Work Pt requesting to speak with this worker to discuss DC. FRANKO met with pt. Pt requesting to DC 02/11. IDT agreeable. Confirmed no DME needs and to resume services with [facility]. SO to transport. FRANKO phoned referral to [facility] PT/OT/SN Plan: DC home with SO 02/11, [facility] PT/OT/SN Liat Zee MSW COOKING APPLIANCE REPAIR TECHNICIAN
[2023-02-08 15:45] VITALS: BP 124/69; PULSE 74; RESP 22; TEMP 36.4; O2SAT 100
[2023-02-08] MEDS: 0.9% Normal Saline (1000mL) 1,000 ML 999 ML IV (17:18)
--- NOTE | 2023-02-08 18:07 | NURSING ---
PLACEMENT VERIFIED AND NO RESIDUALS TODAY. PT TOLERATED FEEDINGS AND MEDS WELL. PT CHANGED OWN TRACH OUT,WOULD NOT LET THIS NURSE CHANGE DRESSINGS TO TRACH OR PEG SITE.
[2023-02-08 19:24] VITALS: PULSE 98; RESP 22; O2SAT 94
--- NOTE | 2023-02-08 20:12 | NURSING ---
Addendum entered by Donny Abdalla 02/09/23 00:58: Confidential voicemail left for social media designer notifying of need for delayed discharge Addendum entered by Donny Abdalla 02/08/23 22:08: Patient and patient rep (Christiane) updated on chest xray results, IV antibiotic order x7 days and Dr. Laboy requesting dealy of discharge, patient and traffic workforce representative agreeable to new orders and express thanks for update Addendum entered by Donny Abdalla 02/08/23 22:01: Per cancel chest xray scheduled for 02/09/23 Addendum entered by Donny Abdalla 02/08/23 21:58: Contacted via telephone, reviewed xray results, new order received for IV Merrem every 8 hours x7 days and notify significant other and patient that discharge will need to be delayed due to need for IV antibiotics. Orders repeated back. Addendum entered by Donny Abdalla 02/08/23 20:21: patient and patient rep (Christiane) at bedside, notified of new order for chest xray now and repeat in AM, both patient and rep express thanks for update Original Note: Dr. Laboy contacted via telephone related to respiratory reporting observed jackson colored liquid oozing from trach during aerosol treatment, spo2 94% on 3L O2 via trach collar, moist cough. Hx aspiration pneumonia. Discussed current tube feed frequency and recent IV bolus administered as ordered prior to shift change. New order for chest xray stat and do second chest xray in the AM. Orders repeated back.
--- NOTE | 2023-02-08 20:50 | RAD_ITS ---
EXAM: XR CHEST, 2 VIEWS CLINICAL INDICATION: emesis via trach TECHNIQUE: Frontal and lateral views of the chest. COMPARISON: 01/26/2023 FINDINGS: LUNGS AND PLEURAL SPACES: Bilateral pleural effusions with associated airspace disease which may be atelectasis or pneumonia, perhaps worse when compared to the prior examination. No pneumothorax. HEART: No significant abnormality. Cardiac silhouette not enlarged. MEDIASTINUM: Central airways and mediastinal contour are unremarkable. BONES/JOINTS: Degenerative changes throughout the spine and shoulders. SOFT TISSUES: No significant abnormality. TUBES, LINES AND DEVICES: Tracheostomy cannula overlies the airway. It appears discrete from the esophageal lumen on the lateral view. Left-sided chest port with tip overlying the right atrium. RAD/Chest PA and Lateral IMPRESSION: 1. Bilateral pleural effusions with associated airspace disease which may be atelectasis or pneumonia, perhaps worse when compared to the prior examination. 2. Tracheostomy cannula overlies the airway. It appears discrete from the esophageal lumen on the lateral view. 3. Left-sided chest port with tip overlying the right atrium. Electronically Signed: Felipe Perrin DO at 21:11 EDT ,
[2023-02-08] MEDS: 0.9% Normal Saline (250mL Bag) 250 ML 15 ML IV (23:17)
[2023-02-08] MEDS: 0.9% Saline Lock 10 ML Syringe IV (23:17)
[2023-02-08] MEDS: Meropenem 1 GM in 0.9% Normal Saline (100mL MB+) 100 ML IV (23:17)
[2023-02-09] MEDS: 0.9% Saline Lock 10 ML Syringe IV (04:02)
--- NOTE | 2023-02-09 06:22 | NURSING ---
Spoke with pharmacist (Gokul) regarding Merrem changed from Q8H to Q12H, per pharmacist Gokul frequency was decreased to Q12H due to patient kidney function.
[2023-02-09] MEDS: Levothyroxine 50 MCG Tablet GT (06:35)
[2023-02-09] MEDS: Jevity 1.5. 1,000 ML Bottle 300 ML GT ×4 (07:27→22:02)
[2023-02-09 07:38] VITALS: PULSE 70; RESP 18; O2SAT 94
[2023-02-09] MEDS: Budesonide Respules 0.5 MG/2 ML AMPUL.NEB. INHALATION ×2 (07:38→18:48)
[2023-02-09] MEDS: Midodrine HCl 5 MG Tablet 15 MG GT ×3 (09:32→17:58)
[2023-02-09] MEDS: Gabapentin 300 MG Capsule GT ×2 (09:33→22:02)
[2023-02-09] MEDS: APIXABAN 2.5 MG TABLET (WCH) GT ×2 (09:33→22:00)
[2023-02-09] MEDS: Menthol/Lanolin/Calamine/Znox 113 GM Tube 1 APPLIC TOPICAL (09:33)
[2023-02-09] MEDS: Amiodarone 200 MG Tablet GT ×2 (09:33→21:59)
[2023-02-09] MEDS: Pantoprazole Sodium 40 MG in 0.9% Normal Saline (100mL MB+) 100 ML 330 MG IV (09:34)
[2023-02-09] MEDS: 0.9 % NaCl (Sterile) Posiflush 10 mL IV (09:40)
[2023-02-09] MEDS: 0.9% Normal Saline (250mL Bag) 250 ML 330 ML IV (09:40)
[2023-02-09] MEDS: Meropenem 1 GM in 0.9% Normal Saline (100mL MB+) 100 ML IV ×2 (10:45→22:53)
[2023-02-09] MEDS: 0.9% Normal Saline (250mL Bag) 250 ML 33 ML IV (10:45)
[2023-02-09] MEDS: Ferrous Sulfate 300 MG/5 ML UDC GT (12:09)
--- NOTE | 2023-02-09 14:05 | NURSING ---
Patient has no episodes of aspiration or emesis so far this shift. Patient request to only receive 240ml TF/ bolus feed. Also only allows 50mls of water flush before and after TF bolus. Refuses trach care this AM but allows PEG dressing and dressings to arms to be completed.
[2023-02-09 15:06] VITALS: BP 109/64; PULSE 80; RESP 20; TEMP 36.5; O2SAT 100
[2023-02-09 18:50] VITALS: PULSE 79; RESP 18
[2023-02-10] MEDS: Levothyroxine 50 MCG Tablet GT (05:38)
[2023-02-10] MEDS: Jevity 1.5. 1,000 ML Bottle 300 ML GT ×4 (06:27→22:41)
[2023-02-10 07:38] VITALS: PULSE 77; RESP 19; O2SAT 93
[2023-02-10] MEDS: Budesonide Respules 0.5 MG/2 ML AMPUL.NEB. INHALATION (07:39)
[2023-02-10] MEDS: 0.9 % NaCl (Sterile) Posiflush 10 mL IV (10:38)
[2023-02-10] MEDS: Pantoprazole Sodium 40 MG in 0.9% Normal Saline (100mL MB+) 100 ML 330 MG IV (10:38)
[2023-02-10] MEDS: Midodrine HCl 5 MG Tablet 15 MG GT ×3 (10:43→17:07)
[2023-02-10] MEDS: Amiodarone 200 MG Tablet GT ×2 (10:44→22:00)
[2023-02-10] MEDS: APIXABAN 2.5 MG TABLET (WCH) GT ×2 (10:44→22:01)
[2023-02-10] MEDS: Menthol/Lanolin/Calamine/Znox 113 GM Tube 1 APPLIC TOPICAL (10:45)
[2023-02-10] MEDS: Ferrous Sulfate 300 MG/5 ML UDC GT (10:48)
[2023-02-10] MEDS: Meropenem 1 GM in 0.9% Normal Saline (100mL MB+) 100 ML IV ×2 (10:48→22:38)
[2023-02-10] MEDS: Gabapentin 300 MG Capsule GT ×2 (10:48→22:00)
[2023-02-10 15:01] VITALS: BP 111/65; PULSE 77; RESP 18; TEMP 36.6; O2SAT 99
[2023-02-11] MEDS: Levothyroxine 50 MCG Tablet GT (05:50)
[2023-02-11] MEDS: Midodrine HCl 5 MG Tablet 15 MG GT ×3 (06:40→17:32)
[2023-02-11] MEDS: Jevity 1.5. 1,000 ML Bottle 300 ML GT ×4 (06:59→22:04)
[2023-02-11] MEDS: Budesonide Respules 0.5 MG/2 ML AMPUL.NEB. INHALATION ×2 (07:10→19:50)
[2023-02-11 07:13] VITALS: PULSE 72; RESP 16; O2SAT 98
[2023-02-11 08:27] VITALS: O2SAT 91
--- NOTE | 2023-02-11 08:53 | CASEMGMT ---
Social Work This worker notified by staff and Dr Laboy that pt has PNA and is going to be treated for 7 days on IV ATB. SW to follow up at stop date with pt to discuss DC at that time. FRANKO phoned [facility] to update. Liat Zee PRIMARY CARE PROVIDER TRAILHEAD MAINTENANCE WORKER
[2023-02-11 10:36] VITALS: BP 138/72; PULSE 75; O2SAT 97
--- NOTE | 2023-02-11 10:37 | NURSING ---
PT LEFT BY WHEEL CHAIR WITH GIRLFRIEND AT 9AM FOR APPOINTMENT AT [facility]. PT RETURNED AT 1020 AM. NEW ORDER TO CHANGE AMIODARONE 200MG TO ONCE A DAY. RN AWARE
[2023-02-11] MEDS: Pantoprazole Sodium 40 MG in 0.9% Normal Saline (100mL MB+) 100 ML 330 MG IV (10:39)
[2023-02-11] MEDS: 0.9 % NaCl (Sterile) Posiflush 10 mL IV (10:42)
[2023-02-11] MEDS: Menthol/Lanolin/Calamine/Znox 113 GM Tube 1 APPLIC TOPICAL (10:45)
[2023-02-11] MEDS: Gabapentin 300 MG Capsule GT ×2 (10:45→21:58)
[2023-02-11] MEDS: APIXABAN 2.5 MG TABLET (WCH) GT ×2 (10:45→21:58)
[2023-02-11] MEDS: Amiodarone 200 MG Tablet GT (10:45)
[2023-02-11 11:00] VITALS: PULSE 72; RESP 18; O2SAT 98
[2023-02-11] MEDS: Meropenem 1 GM in 0.9% Normal Saline (100mL MB+) 100 ML IV ×2 (11:31→22:31)
[2023-02-11] MEDS: Ferrous Sulfate 300 MG/5 ML UDC GT (11:47)
--- NOTE | 2023-02-11 12:10 | NURSING ---
PT REQUESTED ONLY 240 OF JEVITY AND 30 CC FLUSH AFTER MEDS AND JEVITY AT LUNCH. PLACEMENT WAS VERIFIED AND NO RESIDUAL. PT TOLERATED WELL.
[2023-02-11 14:43] VITALS: BP 130/64; PULSE 72; RESP 16; TEMP 36.3; O2SAT 100
[2023-02-11] MEDS: 0.9% Saline Lock 10 ML Syringe IV ×3 (15:17→22:30)
[2023-02-11] MEDS: 0.9% Normal Saline (1000mL) 1,000 ML 999 ML IV (17:14)
--- NOTE | 2023-02-11 17:44 | NURSING ---
0 RESIDUAL AT SUPPER, MEDS GIVEN THREW PEG. PT WOULD ONLY LET THIS NURSE GIVE 30 CC FLUSH AFTER MED. PT GIRLFRIEND STATED SHE WAS NOT GOING TO GIVE HIS JEVITY TILL AN HOUR AFTER HIS BOLUS. RN AWARE.
--- NOTE | 2023-02-11 18:37 | NURSING ---
girl friend gave pt his 1700 jevity and 50 cc flush. pt tolerated well so far.
[2023-02-11 19:50] VITALS: PULSE 79; RESP 18; O2SAT 98
[2023-02-11] MEDS: 0.9% Normal Saline (250mL Bag) 250 ML 15 ML IV (22:30)
[2023-02-12 03:00] VITALS: BMI 23.4
[2023-02-12] MEDS: 0.9% Saline Lock 10 ML Syringe IV (03:13)
[2023-02-12] MEDS: Levothyroxine 50 MCG Tablet GT (05:06)
[2023-02-12] MEDS: Jevity 1.5. 1,000 ML Bottle 300 ML GT ×4 (06:35→22:29)
[2023-02-12] MEDS: Midodrine HCl 5 MG Tablet 15 MG GT ×3 (06:35→17:10)
[2023-02-12] MEDS: Budesonide Respules 0.5 MG/2 ML AMPUL.NEB. INHALATION ×2 (07:35→19:30)
[2023-02-12 08:17] VITALS: PULSE 82; RESP 19; O2SAT 97
[2023-02-12] MEDS: APIXABAN 2.5 MG TABLET (WCH) GT ×2 (09:55→22:29)
[2023-02-12] MEDS: Pantoprazole Sodium 40 MG in 0.9% Normal Saline (100mL MB+) 100 ML 330 MG IV (09:56)
[2023-02-12] MEDS: 0.9 % NaCl (Sterile) Posiflush 10 mL IV ×2 (09:56→22:29)
[2023-02-12] MEDS: Amiodarone 200 MG Tablet GT (09:56)
[2023-02-12] MEDS: Gabapentin 300 MG Capsule GT ×2 (10:00→22:29)
[2023-02-12] MEDS: Menthol/Lanolin/Calamine/Znox 113 GM Tube 1 APPLIC TOPICAL (10:00)
[2023-02-12 10:17] VITALS: BP 104/57; PULSE 71
--- NOTE | 2023-02-12 10:37 | NURSING ---
PLACEMENT VERIFIED,0 RESIDUAL. PT ONLY WANTED 30 CC FLUSH AFTER MEDS. PT TOLERATED WELL.
[2023-02-12] MEDS: Meropenem 1 GM in 0.9% Normal Saline (100mL MB+) 100 ML IV ×2 (11:01→22:28)
[2023-02-12] MEDS: Ferrous Sulfate 300 MG/5 ML UDC GT (11:48)
--- NOTE | 2023-02-12 12:10 | NURSING ---
0 RESIDUAL AT LUNCH, PT ONLY WANTED 240 IN JEV/ 04/11 BANANA,PROTEIN POWDER AND 30 FLUSH AFTER WARDS. PT TOLERATED WELL.
[2023-02-12 13:11] VITALS: BP 117/64; PULSE 74; RESP 18; TEMP 36.5; O2SAT 99
[2023-02-12 17:40] VITALS: O2SAT 98
--- NOTE | 2023-02-12 17:58 | NURSING ---
0 RESIDUAL,MEDS WITH 30 FLUSH GIVEN BY THIS NURSE PER PT REQUEST. AT 1730 PT GIRLFRIEND GAVE PT HIS JEVITY 240 CC WITH A SCOOP OF PROTEIN POWDER AND 1/4 OF BANANA. AND 50 FLUSH PER PT REQUEST. SO FAR PT HAS TOLERATED WELL.
[2023-02-12 19:30] VITALS: PULSE 74; RESP 24
[2023-02-12] MEDS: Ipratropium/Albuterol Sulfate 3 ML AMPUL.NEB INHALATION (19:30)
[2023-02-13 05:57] LABS: Absolute Lymphocyte Count 2.51 X10^3/uL (0.83-4.51); Absolute Neutrophil Count 1.7 X10^3/uL (2.0-7.7); Basophil# 0.08 X10^3/uL; Basophil% 1.4 % (0-1); Eosinophil# 0.84 X10^3/uL; Eosinophils% 14.8 % (0-5); Hematocrit 28.4 % (40-54); Hemoglobin 8.4 g/dL (13.0-16.5); Lymphocyte # 2.51 X10^3/ul (0.83-4.51); Lymphocyte % 44.3 % (19-41); Mean Corp Hgb Conc 29.6 g/dL (32-36); Mean Corpuscular Hgb 30.5 pg (27.0-32.0); Mean Corpuscular Volume 103.3 fL (80-94); Mean Platelet Vol. 12.2 fl (6.2-12.0); Monocyte% 8.8 % (0-10); NRBC Flagged by Analyzer 0 % (0-5); Neutrophil # 1.72 X10^3/uL (2.7-7.7); Neutrophil % 30.5 % (47-70); POSITIVE MORPHOLOGY YES; Platelet Count 207 K/mm3 (150-450); RBC Distribution Width CV 18.2 % (11.6-14.6); RBC Distribution Width SD 69.2 fl (35.1-43.9); Red Blood Count 2.75 M/mm3 (4.6-6.2); White Blood Count 5.7 K/mm3 (4.4-11.0)
[2023-02-13 06:07] LABS: Differential Indicated SCAN CRITERIA MET
[2023-02-13 06:18] LABS: Anisocytosis 1+; Differential Comment SCANNED; Hypochromasia 1+
[2023-02-13] MEDS: Levothyroxine 50 MCG Tablet GT (06:45)
[2023-02-13 06:49] VITALS: PULSE 78; RESP 20; O2SAT 96
[2023-02-13] MEDS: Budesonide Respules 0.5 MG/2 ML AMPUL.NEB. INHALATION ×2 (06:49→18:34)
[2023-02-13 07:01] LABS: Anion Gap -1 (5-15); BUN 25 mg/dL (7-18); BUN/Creat Ratio 17.4 RATIO (10-20); Calcium,Total 9.3 mg/dL (8.5-10.1); Chloride 107 mmol/L (98-107); Creatinine, Serum 1.44 mg/dL (0.70-1.30); EST Glomerular Filtration Rate 51 mL/min (>60); Est Glom Filt Rate - Afr Amer 61 mL/min (>60); Glucose 79 mg/dL (74-106); Potassium 4.4 mmol/L (3.5-5.1); Sodium Level 140 mmol/L (136-145)
[2023-02-13] MEDS: Midodrine HCl 5 MG Tablet 15 MG GT ×3 (08:52→18:11)
[2023-02-13] MEDS: Jevity 1.5. 1,000 ML Bottle 300 ML GT ×4 (08:53→22:15)
[2023-02-13] MEDS: Amiodarone 200 MG Tablet GT ×2 (08:54→08:55)
[2023-02-13] MEDS: APIXABAN 2.5 MG TABLET (WCH) GT ×2 (08:55→22:14)
[2023-02-13] MEDS: Menthol/Lanolin/Calamine/Znox 113 GM Tube 1 APPLIC TOPICAL (08:56)
[2023-02-13 09:50] VITALS: RESP 18
[2023-02-13] MEDS: Gabapentin 300 MG Capsule GT ×2 (10:38→22:14)
[2023-02-13] MEDS: Meropenem 1 GM in 0.9% Normal Saline (100mL MB+) 100 ML IV ×2 (10:38→22:45)
[2023-02-13] MEDS: 0.9 % NaCl (Sterile) Posiflush 10 mL IV (10:39)
--- NOTE | 2023-02-13 11:32 | CASEMGMT ---
Social Work SW spoke with pt to follow up on DC plans. Pt has IV ATB through 02/16. Offered DC 02/17 or after. Pt requesting 02/17 DC and to refer back to [facility]. SO to transport. No DME needs. SW phoned referral to [facility] PT/OT/SN. Plan: DC home with SO 02/17, [facility] PT/OT/SN LEEANNE WillisW
[2023-02-13] MEDS: Ferrous Sulfate 300 MG/5 ML UDC GT (12:33)
[2023-02-13] MEDS: Pantoprazole Sodium 40 MG in 0.9% Normal Saline (100mL MB+) 100 ML 330 MG IV (12:37)
[2023-02-13 13:37] VITALS: BP 98/61; PULSE 103; RESP 22; TEMP 36.1; O2SAT 93
[2023-02-13 17:43] VITALS: O2SAT 97
[2023-02-13 18:34] VITALS: PULSE 78; RESP 20
--- NOTE | 2023-02-13 20:41 | DS.PCM_ITS ---
Providers Date of Admission: 01/29/23 Primary Care Physician: LEÓN Fung Reason For Visit: SEPSIS Diagnosis Discharge Diagnosis (1) Debility: Status: Acute Code(s): R53.81 - Other malaise (2) Acute and chronic respiratory failure: Status: Resolved Code(s): J96.20 - Acute and chronic respiratory failure, unspecified whether with hypoxia or hypercapnia Qualifiers: Respiratory failure complication: hypoxia Qualified Code(s): J96.21 - Acute and chronic respiratory failure with hypoxia (3) Aspiration pneumonia: Status: Resolved Code(s): J69.0 - Pneumonitis due to inhalation of food and vomit Qualifiers: Laterality: right Lung location: lower lobe of lung (4) Chronic hypotension: Status: Inactive Code(s): I95.89 - Other hypotension (5) Hypotension: Status: Resolved Code(s): I95.9 - Hypotension, unspecified (6) Thrush: Status: Acute Code(s): B37.0 - Candidal stomatitis (7) Recurrent vomiting: Status: Acute Code(s): R11.10 - Vomiting, unspecified (8) Atrial fibrillation: Status: Acute Code(s): I48.91 - Unspecified atrial fibrillation (9) COPD (chronic obstructive pulmonary disease): Status: Suspected Code(s): J44.9 - Chronic obstructive pulmonary disease, unspecified Qualifiers: COPD type: unspecified COPD Qualified Code(s): J44.9 - Chronic obstructive pulmonary disease, unspecified (10) Heart failure with reduced ejection fraction: Status: Acute Code(s): I50.20 - Unspecified systolic (congestive) heart failure (11) Neuropathic pain: Status: Acute Code(s): M79.2 - Neuralgia and neuritis, unspecified (12) Hypothyroidism: Status: Chronic Code(s): E03.9 - Hypothyroidism, unspecified Qualifiers: Hypothyroidism type: due to medication Qualified Code(s): E03.2 - Hypothyroidism due to medicaments and other exogenous substances (13) GERD (gastroesophageal reflux disease): Status: Acute Code(s): K21.9 - Gastro-esophageal reflux disease without esophagitis Plan 77 year old male with below past medical history hospitalized for acute on chronic respiratory failure secondary to aspiration pneumonia, complicated by recurrent vomiting secondary to Nystatin, hypotension, admitted to TCU with debility, here for rehabilitation, strengthening, prior to discharge home with significant other. * Debility - PT/OT. * Pain - Monitor. * Bowel - Monitor. * Adult immunization - Administer pneumonia vaccine, covid19 vaccine, flu vaccine as appropriate. * DVT prophylaxis - on Eliquis. * Nutrition - Jevity 1.5 300ml 4x/day. * Atrial fibrillation - Amiodarone 200mg bid, Eliquis 2.5mg bid. * COPD - Budesonide 0.5mg bid, Duoneb 3ml q4h prn. * Iron deficiency anemia - Ferrous sulfate 300mg daily. * Thrush - Fluconazole 100mg daily thru . * Neuropathic pain - Gabapentin 300mg gt bid. * Cough - Robitussin 10ml q4h prn. * Hypothyroidism - Levothyroxine 50mcg daily. * Skin irritation - Calmoseptine topical daily. * Aspiration pneumonia - Meropenem 1gm iv q8 thru 02/04/2023. * Orthostatic hypotension - Midodrine 15mg tidcm. * GERD - Pantoprazole 20mg daily. * Dehydration - Normal saline 1 liter IV bolus MWF. Medications at Discharge Home Medications budesonide 0.5 mg/2 mL suspension for nebulization 0.5 mg (2 mL) inhalation BID breathing #120 mL 08/13/22 ipratropium 0.5 mg-albuterol 3 mg (2.5 mg base)/3 mL nebulization soln 3 ml inhalation Q4H PRN shortness of breath or wheezing #180 mL 08/14/22 gabapentin 300 mg capsule 300 mg feeding tube BID nerve pain #60 caps 11/30/22 lactose-reduced food with fiber 0.06 gram-1.5 kcal/mL oral liquid (Jevity 1.5 Dipesh) 300 ml G-tube 4X/DAY nutrition #0 mL 01/25/23 ferrous sulfate 300 mg (60 mg iron)/5 mL oral liquid 300 mg (5 mL) G-tube BREAKFAST supplement #0 mL 01/29/23 levothyroxine 50 mcg tablet 50 mcg G-tube DAILY@0600 thyroid #0 tabs 01/29/23 meropenem 1 gram intravenous solution 1 g IV Q8H INFECTION #0 ea 01/29/23 omeprazole 20 mg capsule,delayed release 20 mg feeding tube DAILY reflux #30 caps 01/29/23 amiodarone 200 mg tablet 200 mg G-tube DAILY 30 days #30 tabs 02/13/23 apixaban 5 mg tablet (Eliquis) 2.5 mg (1/2 x 5 mg) G-tube BID 30 days #30 tabs 02/13/23 midodrine 5 mg tablet 15 mg (3 x 5 mg) G-tube TIDCM 30 days #270 tabs 02/13/23 Hospital Course Operations None Procedures None Summary of Care Provided Minutes Spent on Discharge: 35 Hospital Course: 77 year old male with below past medical history hospitalized for acute on chr onic respiratory failure secondary to aspiration pneumonia, complicated by recurrent vomiting secondary to Nystatin, hypotension, admitted to TCU with debility, here for rehabilitation, strengthening, prior to discharge home with significant other. 02/08/2023 Chest X-ray showed aspiration pneumonia, treated with Meropenem iv x 7 days. Discharge home with significant other 02/17/2023, [facility] PT/OT/SN. Physical Exam Const alert General Appearance: cooperative HEENT normocephalic HEENT Narrative: Tracheostomy. Eyes PERRL and EOMs intact bilaterally Neck supple, no JVD and no carotid bruits Resp normal respiratory effort, normal air movement and clear to auscultation bilaterally Cardio regular rate and regular rhythm GI normal to inspection, nondistended, normoactive bowel sounds, non-tender and non-distended GI Narrative: PEG. Extremity normal capillary refill General Extremity: Negative for edema Skin no rashes or lesions noted General Skin Exam: no breakdown Psych affect normal Appearance: appropriate Weight / BMI Weight Weight: 65.907 kg Body Mass Index (BMI) 23.4 ABG / Lab / Microbiology Data 02/13/23 05:27 02/13/23 05:27 Laboratory: Laboratory Results - last 24 hr 02/13/23 05:27: WBC 5.7, RBC 2.75 L, Hgb 8.4 L, Hct 28.4 L, MCV 103.3 H, MCH 30.5, MCHC 29.6 L, RDW Std Deviation 69.2 H, RDW Coeff of Oz 18.2 H, Plt Count 207, MPV 12.2 H, Immature Gran % (Auto) 0.200, Neut % (Auto) 30.5 L, Lymph % (Auto) 44.3 H, Bath % (Auto) 8.8, Eos % (Auto) 14.8 H, Baso % (Auto) 1.4 H, Absolute Neuts (auto) 1.7 L, Absolute Lymphs (auto) 2.51, Nucleated RBC % 0, Differential Comment SCANNED, Hypochromasia 1+, Anisocytosis 1+, Sodium 140, Potassium 4.4, Chloride 107, Carbon Dioxide 34.0 H, Anion Gap -1 L, BUN 25 H, Creatinine 1.44 H, Estim Creat Clear Calc 40.00, Est GFR (MDRD) Af Amer 61, Est GFR (MDRD) Non-Af 51 L, BUN/Creatinine Ratio 17.4, Glucose 79, Calcium 9.3 Microbiology: Microbiology 02/06/23 06:00 Nasal Secretion SARS-CoV-2 Antigen (Rapid) - Final 02/03/23 05:20 Nasal Secretion SARS-CoV-2 Antigen (Rapid) - Final 01/31/23 05:35 Nasal Secretion SARS-CoV-2 Antigen (Rapid) - Final D/C Instructions Discharge Diet: - (NPO.) Discharge Activity: Return to Normal Activity, May Shower and Use Walker Weight Bearing Status: Weight bearing as tolerated Call your doctor if you observe: Fever of 101 or Higher, Inability to urinate, Inability to have a bowel movement, Shortness of breath, Dizziness, Fainting spells, Swelling in the ankles, Chest pain and Uncontrolled pain Additional Instructions: Discharge home with significant other 02/17/2023, [facility] PT/OT/SN. Please Follow Up With: [facility] When: As scheduled. Meaningful Use Info Meaningful Use Diagnoses (Choose all that apply): None applicable Discharge Plan Admission Admit Date/Time: 01/29/23 19:00 Primary Reason for Your Visit: Debility. Attending Provider: Darshan Laboy Chi Primary Care Provider: Alejandro Liu Instructions Additional Instructions / Restrictions: Discharge home with significant other 02/17/2023, [facility] PT/OT/SN. Discharge Orders/Prescriptions Prescriptions: New amiodarone 200 mg Tablet 200 mg G-tube DAILY 30 Days Qty: 30 0RF Eliquis 5 mg Tablet 2.5 mg G-tube BID 30 Days Qty: 30 0RF midodrine 5 mg Tablet 15 mg G-tube TIDCM 30 Days Qty: 270 0RF Continued Jevity 1.5 Dipesh 0.06 gram-1.5 kcal/mL Liquid 300 ml G-tube 4X/DAY Qty: 0 0RF Hold Instructions: Order Changed levothyroxine 50 mcg Tablet 50 mcg G-tube DAILY@0600 Qty: 0 0RF ferrous sulfate 300 mg (60 mg iron)/5 mL Liquid 300 mg G-tube BREAKFAST Qty: 0 0RF omeprazole 20 mg capsule,delayed release(DR/EC) 20 mg feeding tube DAILY Qty: 30 0RF budesonide 0.5 mg/2 mL suspension for nebulization 0.5 mg inhalation BID Qty: 120 6RF ipratropium-albuterol 0.5 mg-3 mg(2.5 mg base)/3 mL solution for nebulization 3 ml inhalation Q4H PRN (Reason: shortness of breath or wheezing) Qty: 180 6RF gabapentin 300 mg capsule 300 mg feeding tube BID Qty: 60 11RF Rx Instructions: Via G-tube. Discontinued amiodarone 200 mg tablet 200 mg G-tube DAILY Qty: 1 0RF midodrine 5 mg Tablet 15 mg G-tube TIDCM 30 Days Qty: 270 0RF menthol-zinc oxide [CalaSoothe] 0.44-20.6 % ointment 1 applic topical DAILY Eliquis 5 mg Tablet 2.5 mg G-tube BID Qty: 0 0RF guaifenesin 100 mg/5 mL Liquid 50 mg G-tube Q4H PRN PRN (Reason: COUGH) Qty: 1000 0RF fluconazole 10 mg/mL Suspension For Reconstitution 100 mg G-tube DAILY Qty: 0 0RF No Action meropenem 1 gram recon soln 1 g IV Q8H Referrals / Follow Up: Alejandro Liu PA [Primary Care Provider] - Disposition Disposition (needs filled in before D/C Order can be placed): Home Health Service
[2023-02-14] MEDS: Levothyroxine 50 MCG Tablet GT (05:13)
--- NOTE | 2023-02-14 05:15 | NURSING ---
Left vm for [facility] to inquire about available options for PPIs upon dc as pt is NPO. Given extension at nurses station to return phone call.
[2023-02-14] MEDS: Jevity 1.5. 1,000 ML Bottle 300 ML GT ×4 (06:29→21:54)
[2023-02-14] MEDS: Midodrine HCl 5 MG Tablet 15 MG GT ×3 (09:46→17:20)
[2023-02-14] MEDS: APIXABAN 2.5 MG TABLET (WCH) GT ×2 (09:47→21:52)
[2023-02-14] MEDS: Gabapentin 300 MG Capsule GT ×2 (09:52→21:51)
[2023-02-14] MEDS: Menthol/Lanolin/Calamine/Znox 113 GM Tube 1 APPLIC TOPICAL (09:52)
[2023-02-14] MEDS: 0.9% Normal Saline (250mL Bag) 250 ML 15 ML IV (09:56)
[2023-02-14] MEDS: 0.9 % NaCl (Sterile) Posiflush 10 mL IV (09:56)
[2023-02-14] MEDS: Meropenem 1 GM in 0.9% Normal Saline (100mL MB+) 100 ML IV ×2 (09:56→22:15)
[2023-02-14 10:11] VITALS: BP 102/58; PULSE 74
[2023-02-14] MEDS: Ferrous Sulfate 300 MG/5 ML UDC GT (11:47)
[2023-02-14 12:21] VITALS: O2SAT 95
[2023-02-14 13:30] VITALS: PULSE 71; RESP 18; O2SAT 98
[2023-02-14] MEDS: Pantoprazole Sodium 40 MG in 0.9% Normal Saline (100mL MB+) 100 ML 330 MG IV (13:40)
[2023-02-14] MEDS: 0.9% Saline Lock 10 ML Syringe IV (13:51)
--- NOTE | 2023-02-14 14:05 | NURSING ---
[facility] CALLED AND ASKED IF THEY COULD CHANGE PT PICK DRESSING TOMORROW WHEN HE GOS TO THE [facility] PROGRAM. THIS NURSE ASKED PT IF THAT WOULD BE OK PT STATED THAT IS WAS OK. RETURNED CALL TO [facility] AND STATED PT WAS OK WITH IT. RN AWARE
[2023-02-14 15:37] VITALS: BP 101/59; PULSE 73; RESP 18; TEMP 36.4; O2SAT 98
--- NOTE | 2023-02-14 17:35 | NURSING ---
PEG TUBE PLACEMENT VERIFIED, 0 RESIDUALS TODAY. PT TOLERATED WELL. GIRL FRIEND GAVE PT HIS 1700 FEEDING.
[2023-02-15] MEDS: Levothyroxine 50 MCG Tablet GT (05:12)
[2023-02-15] MEDS: Jevity 1.5. 1,000 ML Bottle 300 ML GT ×4 (06:47→23:07)
[2023-02-15] MEDS: Midodrine HCl 5 MG Tablet 15 MG GT ×3 (06:47→17:10)
[2023-02-15] MEDS: Budesonide Respules 0.5 MG/2 ML AMPUL.NEB. INHALATION ×2 (07:20→19:26)
[2023-02-15 07:21] VITALS: PULSE 75; RESP 16; O2SAT 96
[2023-02-15] MEDS: Pantoprazole Sodium 40 MG in 0.9% Normal Saline (100mL MB+) 100 ML 330 MG IV (09:04)
[2023-02-15] MEDS: 0.9% Saline Lock 10 ML Syringe IV ×2 (09:05→22:49)
[2023-02-15] MEDS: Menthol/Lanolin/Calamine/Znox 113 GM Tube 1 APPLIC TOPICAL (09:07)
[2023-02-15] MEDS: Amiodarone 200 MG Tablet GT (09:08)
[2023-02-15] MEDS: APIXABAN 2.5 MG TABLET (WCH) GT ×2 (09:08→22:04)
[2023-02-15 09:15] VITALS: O2SAT 98
[2023-02-15] MEDS: Gabapentin 300 MG Capsule GT ×2 (09:17→22:03)
[2023-02-15] MEDS: Meropenem 1 GM in 0.9% Normal Saline (100mL MB+) 100 ML IV ×2 (09:29→22:51)
--- NOTE | 2023-02-15 10:45 | NURSING ---
02/15/23@1045- INCREASED MERREM TO INFUSE OVER 30 MINS. PT IS [facility]ENDING [facility] [employer] [facility] AND REQUESTED PT NOT TO HAVE IV HOOKED UP AND INFUSING. CALLED PHARMACIST FOR RECOMMENDED INFUSION RATE.
[2023-02-15] MEDS: Ferrous Sulfate 300 MG/5 ML UDC GT (14:04)
[2023-02-15 14:59] VITALS: BP 133/63; PULSE 63; RESP 18; TEMP 36.4; O2SAT 98
--- NOTE | 2023-02-15 16:19 | CASEMGMT ---
Social Work BIMS and PHQ-2 completed for MDS assessment. Liat Zee, MANAGER CONSUMER INSIGHTS DETENTION ATTENDANT
[2023-02-15] MEDS: 0.9% Normal Saline (1000mL) 1,000 ML 999 ML IV (17:18)
[2023-02-15 19:26] VITALS: PULSE 78; RESP 20
[2023-02-15] MEDS: 0.9% Normal Saline (250mL Bag) 250 ML 15 ML IV (22:50)
[2023-02-15 23:15] VITALS: O2SAT 94
[2023-02-16] MEDS: 0.9% Saline Lock 10 ML Syringe IV (03:35)
[2023-02-16] MEDS: Levothyroxine 50 MCG Tablet GT (05:09)
[2023-02-16] MEDS: Midodrine HCl 5 MG Tablet 15 MG GT ×3 (06:56→17:23)
[2023-02-16] MEDS: Jevity 1.5. 1,000 ML Bottle 300 ML GT ×4 (06:57→22:48)
[2023-02-16 07:11] VITALS: PULSE 71; RESP 18; O2SAT 94
[2023-02-16] MEDS: Budesonide Respules 0.5 MG/2 ML AMPUL.NEB. INHALATION ×2 (07:11→19:11)
[2023-02-16 11:07] VITALS: BP 115/57; PULSE 73; RESP 17; TEMP 36.6; O2SAT 100
[2023-02-16] MEDS: Menthol/Lanolin/Calamine/Znox 113 GM Tube 1 APPLIC TOPICAL (11:13)
[2023-02-16] MEDS: Pantoprazole Sodium 40 MG in 0.9% Normal Saline (100mL MB+) 100 ML 330 MG IV (11:13)
[2023-02-16] MEDS: Gabapentin 300 MG Capsule GT ×2 (11:13→22:48)
[2023-02-16] MEDS: 0.9 % NaCl (Sterile) Posiflush 10 mL IV (11:13)
[2023-02-16] MEDS: Amiodarone 200 MG Tablet GT (11:13)
[2023-02-16] MEDS: APIXABAN 2.5 MG TABLET (WCH) GT ×2 (11:13→22:48)
[2023-02-16] MEDS: Ferrous Sulfate 300 MG/5 ML UDC GT (13:11)
[2023-02-16 17:20] VITALS: BP 128/64; PULSE 67
[2023-02-16 19:12] VITALS: PULSE 70; RESP 18
[2023-02-17] MEDS: Levothyroxine 50 MCG Tablet GT (05:16)
[2023-02-17 06:30] VITALS: BP 115/54; PULSE 74; RESP 16; RESP 18; TEMP 36.5; O2SAT 98
[2023-02-17] MEDS: Jevity 1.5. 1,000 ML Bottle 300 ML GT ×2 (06:57→11:54)
[2023-02-17 07:33] VITALS: PULSE 77; RESP 17; O2SAT 95
[2023-02-17 08:51] VITALS: BP 100/54; PULSE 79; RESP 18; TEMP 36.9; O2SAT 96
[2023-02-17] MEDS: 0.9 % NaCl (Sterile) Posiflush 10 mL IV (08:56)
[2023-02-17] MEDS: Pantoprazole Sodium 40 MG in 0.9% Normal Saline (100mL MB+) 100 ML 330 MG IV (08:56)
[2023-02-17] MEDS: Midodrine HCl 5 MG Tablet 15 MG GT ×2 (08:58→11:54)
[2023-02-17] MEDS: Amiodarone 200 MG Tablet GT (08:59)
[2023-02-17] MEDS: APIXABAN 2.5 MG TABLET (WCH) GT (08:59)
[2023-02-17] MEDS: Menthol/Lanolin/Calamine/Znox 113 GM Tube 1 APPLIC TOPICAL (08:59)
[2023-02-17] MEDS: Gabapentin 300 MG Capsule GT (08:59)
[2023-02-17 11:53] VITALS: BP 127/70; PULSE 71
[2023-02-17] MEDS: Ferrous Sulfate 300 MG/5 ML UDC GT (11:54)
== END 2023-02-17 14:30 | disposition home health service (06) | DRG 177 ==
PROVIDERS: Admitting Provider Family Medicine Geriatric Medicine; PCP Physician Assistant; Visit Provider Family Medicine Geriatric Medicine
DX: J69.0 Pneumonitis due to inhalation of food and vomit (principal); J96.21 Acute and chronic respiratory failure with hypoxia; I50.20 Unspecified systolic (congestive) heart failure; B37.0 Candidal stomatitis; C78.00 Secondary malignant neoplasm of unspecified lung; J44.0 Chronic obstructive pulmonary disease with (acute) lower respiratory infection; Z93.0 Tracheostomy status; Z99.81 Dependence on supplemental oxygen; N18.30 Chronic kidney disease, stage 3 unspecified; C13.9 Malignant neoplasm of hypopharynx, unspecified; I48.91 Unspecified atrial fibrillation; D50.9 Iron deficiency anemia, unspecified; E03.9 Hypothyroidism, unspecified; D64.81 Anemia due to antineoplastic chemotherapy; I95.1 Orthostatic hypotension; K21.9 Gastro-esophageal reflux disease without esophagitis; G62.9 Polyneuropathy, unspecified; B37.9 Candidiasis, unspecified; Z79.51 Long term (current) use of inhaled steroids; Z79.01 Long term (current) use of anticoagulants; Z87.891 Personal history of nicotine dependence; Z66 Do not resuscitate; Z79.899 Other long term (current) drug therapy
CPT/HCPCS: 31720; 36415; 71046; 80048; 85014; 85018; 85025; 87811; 94640; 97110; 97116; 97162; 97166; 97530; 97535; 97802; J2185; J7030; J7050; A4216; J1940

== ENCOUNTER 2023-03-15 09:34 | Inpatient (IN) | payer MEDICARE, OTHER, SELFPAY ==
[2023-03-15] VITALS (11 sets, daily range): BP systolic 78–108; BP diastolic 51–85; PULSE 77–108; RESP 16–18; TEMP 36.5–39.1; O2SAT 97–100; BMI 19.8
--- NOTE | 2023-03-15 10:20 | RAD_ITS ---
STUDY: X-RAY CHEST REASON FOR EXAM: Male, 77 years old. sob TECHNIQUE: Single AP portable view of the chest. COMPARISON: Comparison is made with prior study dated February 08, 2023. FINDINGS: A tracheostomy tube is in situ. The tip is at 6.2 cm proximal to the elva. A left-sided Port-A-Cath is seen with the tip in the right atrium. Hyperinflation. Left lower lobe consolidation and small left pleural effusion. Patchy infiltrate at the right lung base. Questionable 1.2 cm nodule in the right upper lobe. Normal size heart. Normal mediastinum and anival. Normal visualized pulmonary arteries. Normal visualized aortic arch and descending thoracic aorta. There are diffuse degenerative changes of the visualized thoracic spine. Normal visualized ribs, clavicles, and shoulders. There is no demonstrated abnormality of the visualized soft tissue structures of the upper abdomen. RAD/Chest 1 View (Portable) IMPRESSION: Left lower lobe consolidation with small left pleural effusion. Focal infiltrate in the right lower lobe with a small right pleural effusion. Questionable 1.2 cm nodule in the right midlung. Electronically Signed: Joshua Schneider MD at 10:36 EST ,
[2023-03-15 10:22] LABS: Absolute Lymphocyte Count 1.72 X10^3/uL (0.83-4.51); Absolute Neutrophil Count 10.2 X10^3/uL (2.0-7.7); Basophil# 0.05 X10^3/uL; Basophil% 0.4 % (0-1); Eosinophil# 0.01 X10^3/uL; Eosinophils% 0.1 % (0-5); Hematocrit 26.5 % (40-54); Hemoglobin 8.1 g/dL (13.0-16.5); Lymphocyte # 1.72 X10^3/ul (0.83-4.51); Lymphocyte % 13.3 % (19-41); Mean Corp Hgb Conc 30.6 g/dL (32-36); Mean Corpuscular Hgb 29.9 pg (27.0-32.0); Mean Corpuscular Volume 97.8 fL (80-94); Mean Platelet Vol. 13.1 fl (6.2-12.0); Monocyte% 6.9 % (0-10); NRBC Flagged by Analyzer 0 % (0-5); Neutrophil # 10.23 X10^3/uL (2.7-7.7); Neutrophil % 78.8 % (47-70); Platelet Count 196 K/mm3 (150-450); RBC Distribution Width CV 16.2 % (11.6-14.6); RBC Distribution Width SD 57.6 fl (35.1-43.9); Red Blood Count 2.71 M/mm3 (4.6-6.2)
[2023-03-15] MEDS: Midodrine HCl 5 MG Tablet 15 MG PO (10:25)
[2023-03-15] MEDS: 0.9% Normal Saline (1000mL) 1,000 ML 999 ML IV ×2 (10:25→12:34)
--- NOTE | 2023-03-15 10:27 | ED.VIS.DYS ---
HPI History of Present Illness Chief Complaint: Shortness of Breath Informant: patient and spouse/S.O. Narrative Narrative: Patient presents with severe dyspnea, that apparently has resolved. Significant other states that he vomited last night which she does on rare occasion, and he has frequently had aspiration pneumonitis after doing this. He had a history of cancer of the hypopharynx, he has a tracheostomy and a G-tube. He has had no significant issues with feedings through the G-tube lately denies having any abdominal pain last night or today, and he is no longer nauseated. EMS was called to bring him to the ER, and the met them here, she states she is surprised at how well he looks right now and the fact that he is not in respiratory distress like he was prior to coming here. She states prior to sending in by EMS she did a breathing treatment for him. He states he does not remember coughing up any mucus or anything else in particular that made him feel better now compared to before. He denies any chest pain. He is on midodrine because of low blood pressures. When they are low typically they are in the 90s, when they are good typically in the 120 according to he and significant other. Right now he is in the 70s which she noted at home prior to coming here. He has not yet had his morning dose of midodrine and, which in the last couple weeks was increased from 5 mg 3 times daily to 15 mg 3 times daily. Usually on trach collar 3-5 L at home which is what he is on here. 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 Shortness of breath on exertion Thrush, oral Tracheostomy in place tracheotomy and laryngeal biopsy Wears glasses Home Medications lactose-reduced food with fiber 0.06 gram-1.5 kcal/mL oral liquid (Jevity 1.5 Dipesh) 300 ml G-tube 4X/DAY nutrition #0 mL 01/25/23 [Rx Last Taken 01/29/23] ferrous sulfate 300 mg (60 mg iron)/5 mL oral liquid 300 mg (5 mL) G-tube BREAKFAST supplement #0 mL 01/29/23 [Rx Last Taken 01/29/23 09:50] levothyroxine 50 mcg tablet 50 mcg G-tube DAILY@0600 thyroid #0 tabs 01/29/23 [Rx Last Taken 01/29/23 05:40] omeprazole 20 mg capsule,delayed release 20 mg feeding tube DAILY reflux #30 caps 01/29/23 [Rx Last Taken 01/29/23 08:45] amiodarone 200 mg tablet 200 mg G-tube DAILY 30 days #30 tabs 02/13/23 [Rx Last Taken Unknown] apixaban 5 mg tablet (Eliquis) 2.5 mg (1/2 x 5 mg) G-tube BID 30 days #30 tabs 02/13/23 [Rx Last Taken Unknown] midodrine 5 mg tablet 15 mg (3 x 5 mg) G-tube TIDCM 30 days #270 tabs 02/13/23 [Rx Last Taken Unknown] budesonide 0.5 mg/2 mL suspension for nebulization 0.5 mg (2 mL) inhalation BID breathing #120 mL 03/11/23 [Rx Last Taken Unknown] gabapentin 300 mg capsule 300 mg feeding tube BID nerve pain #60 caps 03/11/23 [Rx Last Taken Unknown] ipratropium 0.5 mg-albuterol 3 mg (2.5 mg base)/3 mL nebulization soln 3 ml inhalation Q4H PRN shortness of breath or wheezing #180 mL 03/11/23 [Rx Last Taken Unknown] Allergy/AdvReac Type Severity Reaction Status Date / Time venom-wasp Allergy Anaphylaxis Verified 03/15/23 09:35 nystatin AdvReac Severe Nausea/Vom/ Verified 03/15/23 09:35 Diarrhea pseudoephedrine HCl AdvReac Severe Unknown Verified 03/15/23 09:35 [From Sudbriseidad] Antihistamines - Alkylamine AdvReac Mild Other Verified 03/15/23 09:35 Family History Father Colon cancer Hypertension Mother Hypertension Surgical History History of gastrostomy History of surgery History of tracheostomy Hx of tonsillectomy S/P percutaneous endoscopic gastrostomy (PEG) tube placement S/P TURP Social History household members: significant other Smoking Status: Former smoker quit date: 04/08/17 pack-years: 55 alcohol intake: never substance use type: does not use ROS ROS ED Constitutional Constitutional ED: Denies chills or fever(s) Eyes Eyes: Denies change in vision or diplopia ENT ENT ED: Denies rhinorrhea or sore throat Cardiovascular Cardiovascular: Denies chest pain or palpitations Respiratory/Chest Respiratory/Chest: Reports cough and dyspnea Gastrointestinal Gastrointestinal: Reports as per HPI and vomiting; Denies abdominal pain, diarrhea or nausea Genitourinary Genitourinary ED: Denies dysuria or hematuria Musculoskeletal Musculoskeletal: Denies back pain or neck pain Integumentary Denies abscess or rash Neurologic Neurologic: Denies headache(s), paresthesias or weakness Psychiatric Psychiatric: Denies anxiety or suicidal thoughts Hematologic/Lymphatic Hematologic/Lymphatic: Reports easy bleeding and easy bruising EXAM Physical Exam Const Vital Signs: 03/15/23 09:36 03/15/23 09:41 03/15/23 09:58 Temperature 102.4 F H Temperature Source Oral Pulse Rate 108 H Respiratory Rate 17 Respiratory Effort Normal Respiratory Depth Normal Respiratory Pattern Normal Blood Pressure 78/51 L Blood Pressure Mean 60 Pulse Ox 99 Oxygen Delivery Method Trach Collar Trach Collar Room Air Oxygen Flow Rate (L/min) 4 4 03/15/23 09:42 03/15/23 10:42 Temperature 97.8 F 99.9 F H Temperature Source Temporal Temporal Pulse Rate 98 86 Respiratory Rate 18 18 Respiratory Effort Respiratory Depth Respiratory Pattern Blood Pressure 87/51 L 99/58 L Blood Pressure Mean 63 71 Pulse Ox 100 99 Oxygen Delivery Method Trach Collar Room Air Oxygen Flow Rate (L/min) Positive well nourished, well developed and cachectic General Appearance ED: well developed, cachectic and NAD Nutritional Appearance: cachectic HEENT Reports moist mucous membranes normocephalic and atraumatic Eyes PERRL and EOMs intact bilaterally Neck full ROM and supple Neck Narrative: trach site benign, no sig secretions Resp normal respiratory effort, no retractions and no use of accessory muscles Resp Narrative: bibasilar coarse BSs. Effort and Inspection: able to speak in complete sentences Cardio regular rate, regular rhythm and no murmurs GI non-tender and non-distended Auscultation: normoactive bowel sounds Palpation: soft Back/Spine no CVA tenderness General Back: other FROM Extremity normal to inspection General Extremety ED: Negative for edema, pulses abnormal or tenderness General Extremity: Negative for edema or pulses abnormal Neuro oriented x3, CN's II-XII intact bilaterally and no sensory deficits noted Sensorium / Orientation: awake and alert Motor Exam: strength 5/5 throughout Skin no rashes or lesions noted and no wounds Sepsis Attestation Sepsis Alert: Yes Sepsis Attestation: Agree w/Sepsis Date exam was performed: 03/15/23 Time exam was performed: 11:15 Possible Source of Sepsis: Pulmonary Sepsis Organ Dysfunction Criteria Present: SBP < 90 mmHg or MAP < 65 mmHg and Lactic Acid > 2 mmol/L Fluid Resuscitation Fluid resuscitation indicated?: Yes Fluid Resuscitation ordered: Lesser volume fluid bolus ordered Amount of fluid ordered: 1,000 Reason for lesser fluid bolus:: BP Responded to a lesser volume Sepsis Note Date exam was performed: 03/15/23 Time exam was performed: 11:30 Sepsis Attestation: Sepsis re-evaluation was performed Response to fluids: Fluid responsive hypotension (Later, recurrent hypotension so another 1000 mL isotonic saline started) MDM MDM MDM Narrative Medical decision making narrative: Septic workup obtained. Patient does not require any nebulizers or mechanical ventilation right now since he is breathing relatively well and speaking in full sentences. He does have Rales/rhonchi in both bases, 1 view chest x-ray appears to show bibasilar infiltrates, radiology in agreement, suspicion is aspiration until proven otherwise. He had a fever here, was hypotensive responded to fluids, now blood pressure 102/70 at 1125. Patient is doing well, but given all of this antibiotic started in the IV according to protocol for aspiration pneumonitis and will admit to the hospital. Does not require intensive care at this time. Lab Data Attestation: I reviewed the patient's lab results. Labs: Laboratory Results - last 24 hr 03/15/23 09:40 WBC 13.0 H RBC 2.71 L Hgb 8.1 L Hct 26.5 L MCV 97.8 H MCH 29.9 MCHC 30.6 L RDW Std Deviation 57.6 H RDW Coeff of Oz 16.2 H Plt Count 196 MPV 13.1 H Immature Gran % (Auto) 0.500 Neut % (Auto) 78.8 H Lymph % (Auto) 13.3 L [place] % (Auto) 6.9 Eos % (Auto) 0.1 Baso % (Auto) 0.4 Absolute Neuts (auto) 10.2 H Absolute Lymphs (auto) 1.72 Nucleated RBC % 0 PT 18.7 H INR 1.6 APTT 38.6 H Sodium 142 Potassium 4.1 Chloride 104 Carbon Dioxide 34.0 H Anion Gap 4 L BUN 32 H Creatinine 1.94 H Estim Creat Clear Calc 29.55 Est GFR (MDRD) Af Amer 44 L Est GFR (MDRD) Non-Af 36 L BUN/Creatinine Ratio 16.5 Glucose 118 H Lactic Acid 2.1 H* Calcium 9.3 Total Bilirubin 0.50 AST 16 ALT 16 Alkaline Phosphatase 58 Troponin I High Sens 78 Total Protein 7.3 Albumin 2.4 L Globulin 4.9 H Albumin/Globulin Ratio 0.5 L Radiography Diagnostic Testing: Clinical Impression(s) from Imaging Studies Chest X-Ray 03/15/23 10:20 IMPRESSION: Left lower lobe consolidation with small left pleural effusion. Focal infiltrate in the right lower lobe with a small right pleural effusion. Questionable 1.2 cm nodule in the right midlung. Electronically Signed: Joshua Schneider MD at 10:36 EST Reading Location ID and State: [address] [place] [address] , Service support , Rhythm Strip Rhythm Strip: Sinus Rhythm (w/ vent pacing) Rate: 90 Ectopy: None EKG Initial EKG: Attestation: I personally reviewed and interpreted this EKG as follows: Interpretation: Sinus Rhythm, No Acute Injury Pattern and Paced Prior EKG tracings: available for review (NSR w/o pacing, 01/26/2023) Management Discussion w/another healthcare provider: Hospitalist Critical Care Time Critical Care Time: Yes Critical care time (excluding procedures): 30-74 minutes (36 min), Including time spent:, Discussing w/Patient &/or Family/Yardage Control Operator, Discussing w/Consultants, Arranging Admission or Transfer and Performing Direct Patient Care at Bedside Discharge Plan Triage Chief Complaint: Shortness of Breath ED Provider: Damián Patel Dx/Rx/DC Orders Clinical Impression: Transient hypotension, Aspiration pneumonia, Sepsis Prescriptions: No Action budesonide 0.5 mg/2 mL suspension for nebulization 0.5 mg inhalation BID Qty: 120 6RF ipratropium-albuterol 0.5 mg-3 mg(2.5 mg base)/3 mL solution for nebulization 3 ml inhalation Q4H PRN (Reason: shortness of breath or wheezing) Qty: 180 6RF Jevity 1.5 Dipesh 0.06 gram-1.5 kcal/mL Liquid 300 ml G-tube 4X/DAY Qty: 0 0RF Hold Instructions: Order Changed levothyroxine 50 mcg Tablet 50 mcg G-tube DAILY@0600 Qty: 0 0RF ferrous sulfate 300 mg (60 mg iron)/5 mL Liquid 300 mg G-tube BREAKFAST Qty: 0 0RF Hold Instructions: Order Completed omeprazole 20 mg capsule,delayed release(DR/EC) 20 mg feeding tube DAILY Qty: 30 0RF amiodarone 200 mg Tablet 200 mg G-tube DAILY 30 Days Qty: 30 0RF Eliquis 5 mg Tablet 2.5 mg G-tube BID 30 Days Qty: 30 0RF midodrine 5 mg Tablet 15 mg G-tube TIDCM 30 Days Qty: 270 0RF gabapentin 300 mg capsule 300 mg feeding tube BID Qty: 60 11RF Rx Instructions: Via G-tube. Primary Care Provider: Alejandro Liu Referrals: Alejandro Liu PA [Primary Care Provider] -
[2023-03-15 10:28] LABS: ALB/GLOB Ratio 0.5 RATIO (0.9-2.4); AST(SGOT) 16 U/L (15-37); Alanine Aminotransfer ALT/SGPT 16 U/L (16-61); Albumin, Serum 2.4 g/dL (3.2-5.0); Alkaline Phosphatase 58 U/L (45-117); Anion Gap 4 (5-15); BUN 32 mg/dL (7-18); BUN/Creat Ratio 16.5 RATIO (10-20); Calcium,Total 9.3 mg/dL (8.5-10.1); Chloride 104 mmol/L (98-107); Creatinine, Serum 1.94 mg/dL (0.70-1.30); EST Glomerular Filtration Rate 36 mL/min (>60); Est Glom Filt Rate - Afr Amer 44 mL/min (>60); Estimated Creatinine Clearance 29.55 ml/min; Globulin 4.9 g/dL (2.2-4.2); Glucose 118 mg/dL (74-106); Potassium 4.1 mmol/L (3.5-5.1); Protein, Total 7.3 g/dL (6.4-8.2); Sodium Level 142 mmol/L (136-145); Troponin-I HS 78 pg/mL (3.0-78.0)
[2023-03-15 10:34] LABS: Lactic Acid 2.1 mmol/L (0.4-1.9)
[2023-03-15 12:06] LABS: International Normalized Ratio 1.6; Partial Thromboplast Time 38.6 Seconds (24.1-36.2); Prothrombin Time (Protime)PT. 18.7 SECONDS (11.7-14.9)
[2023-03-15] MEDS: Azithromycin 500 MG in Dextrose 5%-Water (250mL Bag) 250 ML 250 MG IV (12:11)
[2023-03-15] MEDS: Ampicillin/Sulbactam 3 GM in 0.9% Normal Saline (100mL MB+) 100 ML IV (12:11)
[2023-03-15] MEDS: 0.9% Normal Saline (1000mL) 1,000 ML 125 ML IV ×2 (13:50→22:39)
[2023-03-15 14:10] LABS: Reflex Lactate? Y
--- NOTE | 2023-03-15 14:52 | PCM.HP.STD ---
HPI - General General Date of Admission: 03/15/23 Date of Service: 03/15/23 Chief Complaint: Fever, shortness of breath HPI Narrative SERENITY ESTRADA, is a 77 M who presents to the emergency room at [facility] after being brought in by squad with complaints of increased shortness of breath at home this morning and elevated temperature.. Patient has a chronic trach and is n.p.o., relates to an episode of vomiting last night, this morning she stated that her was having severe dyspnea and called the squad to bring him in for evaluation. Squad noted the patient's blood pressure to be in the 80s and 90s systolic. Patient has a history of oropharyngeal carcinoma and is n.p.o. on arrival to the emergency room, patient's temperature was 102.4, blood pressure was 78/51 and pulse was 108. Labs were obtained, white blood cell count was 13,000, hemoglobin was 8.1, creatinine was 1.94 and BUN was 32. Patient's lactic acid was 2.1. Chest x-ray was obtained which showed a left lower lobe consolidation with small left pleural effusion, there is a focal infiltrate in the right lower lobe with small right pleural effusion also. There is noted to be a questionable 1.2 cm nodule in the right midlung. Patient's pulse ox was above 90% on 4 L trach collar which is his usual home setting. Patient was given IV Zithromax and Zosyn, he will be admitted to PCU for aspiration pneumonia, I will maintain the patient on IV Zosyn and give him aerosol treatments.. 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 Shortness of breath on exertion Thrush, oral Tracheostomy in place tracheotomy and laryngeal biopsy Wears glasses Home Medications lactose-reduced food with fiber 0.06 gram-1.5 kcal/mL oral liquid (Jevity 1.5 Dipesh) 300 ml G-tube 4X/DAY NUTRITION #0 mL 01/25/23 [Rx Last Taken 03/14/23] ferrous sulfate 300 mg (60 mg iron)/5 mL oral liquid 300 mg (5 mL) G-tube BREAKFAST SUPPLEMENT #0 mL 01/29/23 [Rx Last Taken 01/29/23 09:50] levothyroxine 50 mcg tablet 50 mcg G-tube DAILY@0600 THYROID #0 tabs 01/29/23 [Rx Last Taken 03/15/23] amiodarone 200 mg tablet 200 mg G-tube DAILY AFIB 30 days #30 tabs 02/13/23 [Rx Last Taken 03/14/23] midodrine 5 mg tablet 15 mg (3 x 5 mg) G-tube TIDCM BLOOD PRESSURE 30 days #270 tabs 02/13/23 [Rx Last Taken 03/15/23] budesonide 0.5 mg/2 mL suspension for nebulization 0.5 mg (2 mL) inhalation BID COPD #120 mL 03/11/23 [Rx Last Taken Unknown] ipratropium 0.5 mg-albuterol 3 mg (2.5 mg base)/3 mL nebulization soln 3 ml inhalation Q4H PRN COPD #180 mL 03/11/23 [Rx Last Taken Unknown] apixaban 2.5 mg tablet (Eliquis) 2.5 mg feeding tube BID BLOOD THINNER 03/15/23 [History Last Taken 03/14/23] gabapentin 300 mg capsule 300 mg feeding tube BID NERVE PAIN 03/15/23 [History Last Taken 03/15/23] omeprazole 40 mg capsule,delayed release 40 mg feeding tube DAILY ACID REFLUX 03/15/23 [History Last Taken 03/14/23] Allergy/AdvReac Type Severity Reaction Status Date / Time venom-wasp Allergy Anaphylaxis Verified 03/15/23 09:35 nystatin AdvReac Severe Nausea/Vom/ Verified 03/15/23 09:35 Diarrhea pseudoephedrine HCl AdvReac Severe Unknown Verified 03/15/23 09:35 [From Sudafed] Antihistamines - Alkylamine AdvReac Mild Other Verified 03/15/23 09:35 Family History Father Colon cancer Hypertension Mother Hypertension Surgical History History of gastrostomy History of surgery History of tracheostomy Hx of tonsillectomy S/P percutaneous endoscopic gastrostomy (PEG) tube placement S/P TURP Social History household members: significant other Smoking Status: Former smoker quit date: 04/08/17 pack-years: 55 alcohol intake: never substance use type: does not use ROS Constitutional Constitutional: Reports fatigue and weakness; Denies anorexia, change in weight, chills, fever(s) or night sweats Eyes Eyes: Denies blurry vision, change in vision, discharge from eye(s) or eye pain Cardiovascular Cardiovascular: Denies chest pain, claudication, edema or palpitations Respiratory/Chest Respiratory/Chest: Reports dyspnea and shortness of breath with exertion; Denies cough, hemoptysis or shortness of breath at rest Gastrointestinal Gastrointestinal: Denies abdominal pain, constipation, diarrhea, hematemesis, hematochezia, melena, nausea or vomiting Genitourinary Genitourinary: Denies dysuria, hematuria, urinary frequency, urinary hesitancy, urinary incontinence or urinary urgency Musculoskeletal Musculoskeletal: Denies back pain, joint pain, joint stiffness, joint swelling, myalgias or neck pain Neurologic Neurologic: Denies abnormal gait, abnormal speech, confusion, dizziness, focal weakness, headache(s), loss of vision, numbness, other visual disturbances, paresthesias, syncope or tingling Psychiatric Psychiatric: Denies anxiety, cognitive impairment, depression, irritability, mood swings or suicidal ideation Endocrine Endocrinology: Denies change in body appearance, cold intolerance, excessive sweating, heat intolerance, polydipsia or polyuria Hematologic/Lymphatic Hematologic/Lymphatic: Denies none, anemia, easy bleeding, easy bruising or lymphadenopathy Allergic/Immunologic Allergic/Immunologic: Denies rhinitis, urticaria, eczemia or asthma Vital Signs Vital Signs Vital Signs: 03/15/23 09:36 03/15/23 09:41 03/15/23 09:58 Temperature 102.4 F H Temperature Source Oral Pulse Rate 108 H Respiratory Rate 17 Respiratory Effort Normal Respiratory Depth Normal Respiratory Pattern Normal Blood Pressure 78/51 L Blood Pressure Mean 60 Blood Pressure Source Blood Pressure Position Blood Pressure Location Pulse Ox 99 Oxygen Delivery Method Trach Collar Trach Collar Room Air Oxygen Flow Rate (L/min) 4 4 03/15/23 09:42 03/15/23 10:42 03/15/23 12:33 Temperature 97.8 F 99.9 F H 98.9 F Temperature Source Temporal Temporal Pulse Rate 98 86 97 Respiratory Rate 18 18 18 Respiratory Effort Respiratory Depth Respiratory Pattern Blood Pressure 87/51 L 99/58 L 98/78 Blood Pressure Mean 63 71 84 Blood Pressure Source Blood Pressure Position Blood Pressure Location Pulse Ox 100 99 97 Oxygen Delivery Method Trach Collar Room Air Oxygen Flow Rate (L/min) 03/15/23 13:15 Temperature 98.7 F Temperature Source Temporal Pulse Rate 84 Respiratory Rate 16 Respiratory Effort Respiratory Depth Respiratory Pattern Blood Pressure 98/85 H Blood Pressure Mean 89 Blood Pressure Source Monitor Blood Pressure Position Semi-Fowlers Blood Pressure Location Right Arm Pulse Ox 100 Oxygen Delivery Method Trach Collar Oxygen Flow Rate (L/min) 4 Weight Weight: 63.503 kg Body Mass Index (BMI) 20.0 Physical Exam Const alert, oriented x3 and no apparent distress General Appearance: cooperative, well kempt and well developed Orientation / Consciousness: awake, oriented to person, oriented to place and oriented to time HEENT normocephalic and head/scalp atraumatic HEENT Narrative: Tracheostomy is present Eyes PERRL, EOMs intact bilaterally and conjunctivae normal Neck supple and no JVD Neck Narrative: Tracheostomy is present Resp normal respiratory effort, no retractions and no use of accessory muscles Resp Narrative: Breath sounds are diminished bilaterally Auscultation: Negative for rales, rhonchi or wheezes Cardio regular rate, regular rhythm, S1 normal heart sound, S2 normal heart sound, no murmurs, no rub and no gallops GI normal to inspection, nondistended, normoactive bowel sounds, soft to palpation, non-tender and non-distended Extremity no clubbing, cyanosis or edema Skin no rashes or lesions noted General Skin Exam: no breakdown Neuro oriented x3, CN's II-XII intact bilaterally, moves all extremities, no focal motor deficits and no sensory deficits noted Sensorium / Orientation: awake and alert Speech: speech normal Psych affect normal Results Lab / Micro Data 03/15/23 09:40 03/15/23 09:40 Labs: Laboratory Results - last 24 hr 03/15/23 09:40: WBC 13.0 H, RBC 2.71 L, Hgb 8.1 L, Hct 26.5 L, MCV 97.8 H, MCH 29.9, MCHC 30.6 L, RDW Std Deviation 57.6 H, RDW Coeff of Oz 16.2 H, Plt Count 196, MPV 13.1 H, Immature Gran % (Auto) 0.500, Neut % (Auto) 78.8 H, Lymph % (Auto) 13.3 L, [place] % (Auto) 6.9, Eos % (Auto) 0.1, Baso % (Auto) 0.4, Absolute Neuts (auto) 10.2 H, Absolute Lymphs (auto) 1.72, Nucleated RBC % 0, PT 18.7 H, INR 1.6, APTT 38.6 H, Sodium 142, Potassium 4.1, Chloride 104, Carbon Dioxide 34.0 H, Anion Gap 4 L, BUN 32 H, Creatinine 1.94 H, Estim Creat Clear Calc 29.55, Est GFR (MDRD) Af Amer 44 L, Est GFR (MDRD) Non-Af 36 L, BUN/Creatinine Ratio 16.5, Glucose 118 H, Lactic Acid 2.1 H*, Calcium 9.3, Total Bilirubin 0.50, AST 16, ALT 16, Alkaline Phosphatase 58, Troponin I High Sens 78, Total Protein 7.3, Albumin 2.4 L, Globulin 4.9 H, Albumin/Globulin Ratio 0.5 L Rhythm Strip Rhythm Strip: Sinus Rhythm (w/ vent pacing) Rate: 90 Ectopy: None Imagaing Radiology Impression Chest X-Ray 03/15/23 10:20 IMPRESSION: Left lower lobe consolidation with small left pleural effusion. Focal infiltrate in the right lower lobe with a small right pleural effusion. Questionable 1.2 cm nodule in the right midlung. Electronically Signed: Joshua Schneider MD at 10:36 EST , Assessment & Plan Assessment/Plan (1) Aspiration pneumonia: PLAN: Plan 1. 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
[2023-03-15] MEDS: 0.9% Saline Lock 10 ML Syringe IV (15:15)
[2023-03-15] MEDS: Piperacil/Tazobactam 3.375 GM in 0.9% Normal Saline (50mL MB+) 50 ML IV ×2 (15:24→22:38)
[2023-03-15 16:14] LABS: Bacteria 0 SEEN /hpf (None Seen); Mucous, Urine 0 SEEN /hpf (<or=2+); Squamous Epithelial Cells - UA 0 SEEN /hpf (0-5)
[2023-03-15 16:21] LABS: Color, Urine Yellow (Yellow); Glucose, Dipstick Normal (Normal); Ketone-Dipstick Negative (Negative); Leukocyte Esterase-Dipstick 25 /ul (Negative); Nitrite-Dipstick Negative (Negative); Occult Blood-Urine 50 /ul (Negative); Protein-Dipstick 30 mg/dl (Negative); Urine Bilirubin Dipstick Negative (Negative); Urine Clarity Clear (Clear); Urine Urobilinogen Normal (Normal)
[2023-03-15 16:40] LABS: Red Blood Cells-Urine 5-10 SEEN /hpf (0-5); White Blood Cells 0-5 SEEN /hpf (0-5)
[2023-03-15] MEDS: Jevity 1.5. 1,000 ML Bottle 240 ML GT (16:55)
[2023-03-15] MEDS: Midodrine HCl 5 MG Tablet 15 MG GT (16:56)
[2023-03-15 17:21] LABS: Lactic Acid 1.1 mmol/L (0.4-1.9)
[2023-03-15] MEDS: Ipratropium/Albuterol Sulfate 3 ML AMPUL.NEB INHALATION (20:14)
[2023-03-15] MEDS: APIXABAN 2.5 MG TABLET (WCH) GT (22:36)
[2023-03-15] MEDS: Gabapentin 300 MG Capsule GT (22:36)
[2023-03-15] MEDS: Budesonide Respules 0.5 MG/2 ML AMPUL.NEB. INHALATION (23:33)
[2023-03-16 04:00] VITALS: BP 102/61; PULSE 89; RESP 16; TEMP 36.8; O2SAT 94
[2023-03-16] MEDS: Levothyroxine 50 MCG Tablet GT (05:40)
[2023-03-16] MEDS: Piperacil/Tazobactam 3.375 GM in 0.9% Normal Saline (50mL MB+) 50 ML IV ×3 (05:47→21:45)
[2023-03-16] MEDS: 0.9% Normal Saline (1000mL) 1,000 ML 125 ML IV ×3 (05:49→21:45)
[2023-03-16] MEDS: Jevity 1.5. 1,000 ML Bottle 240 ML GT ×3 (06:52→17:03)
[2023-03-16 07:36] VITALS: PULSE 90; RESP 18
[2023-03-16] MEDS: Budesonide Respules 0.5 MG/2 ML AMPUL.NEB. INHALATION ×2 (07:36→19:29)
[2023-03-16] MEDS: Ipratropium/Albuterol Sulfate 3 ML AMPUL.NEB INHALATION (07:36)
[2023-03-16 07:51] LABS: Absolute Lymphocyte Count 1.52 X10^3/uL (0.83-4.51); Absolute Neutrophil Count 7.5 X10^3/uL (2.0-7.7); Basophil# 0.05 X10^3/uL; Basophil% 0.5 % (0-1); Eosinophil# 0.15 X10^3/uL; Eosinophils% 1.5 % (0-5); Hematocrit 25.7 % (40-54); Hemoglobin 7.6 g/dL (13.0-16.5); Lymphocyte # 1.52 X10^3/ul (0.83-4.51); Lymphocyte % 15.4 % (19-41); Mean Corp Hgb Conc 29.6 g/dL (32-36); Mean Corpuscular Hgb 29.9 pg (27.0-32.0); Mean Corpuscular Volume 101.2 fL (80-94); Mean Platelet Vol. 12.4 fl (6.2-12.0); Monocyte# 0.61 X10^3/uL; Monocyte% 6.2 % (0-10); NRBC Flagged by Analyzer 0 % (0-5); Neutrophil # 7.46 X10^3/uL (2.7-7.7); Neutrophil % 75.9 % (47-70); Platelet Count 182 K/mm3 (150-450); RBC Distribution Width CV 16.2 % (11.6-14.6); RBC Distribution Width SD 59.8 fl (35.1-43.9); Red Blood Count 2.54 M/mm3 (4.6-6.2); White Blood Count 9.8 K/mm3 (4.4-11.0)
[2023-03-16 08:43] LABS: Anion Gap 2 (5-15); BUN 27 mg/dL (7-18); BUN/Creat Ratio 17.5 RATIO (10-20); Calcium,Total 9.1 mg/dL (8.5-10.1); Chloride 111 mmol/L (98-107); Creatinine, Serum 1.54 mg/dL (0.70-1.30); EST Glomerular Filtration Rate 47 mL/min (>60); Est Glom Filt Rate - Afr Amer 57 mL/min (>60); Estimated Creatinine Clearance 37.23 ml/min; Glucose 89 mg/dL (74-106); Potassium 3.9 mmol/L (3.5-5.1); Sodium Level 142 mmol/L (136-145)
[2023-03-16 10:21] VITALS: BP 107/58; PULSE 80; RESP 18; TEMP 36.6; O2SAT 97
[2023-03-16] MEDS: Gabapentin 300 MG Capsule GT ×2 (10:31→21:56)
[2023-03-16] MEDS: Amiodarone 200 MG Tablet GT (10:32)
[2023-03-16] MEDS: Midodrine HCl 5 MG Tablet 15 MG GT ×3 (10:32→17:03)
[2023-03-16] MEDS: Ferrous Sulfate 300 MG/5 ML UDC GT (10:32)
[2023-03-16] MEDS: APIXABAN 2.5 MG TABLET (WCH) GT ×2 (10:33→21:50)
[2023-03-16] MEDS: HYDROcodone Bitartrate/Apap 5/325 Tablet PO ×3 (10:49→21:56)
--- NOTE | 2023-03-16 11:20 | CASEMGMT ---
LORRIE RIVAS Assessment: Face to Face with pt for initial transition planning/care coordination assessment. RN CM introduced self and role at [facility], pt voices understanding and consents to assessment. Pt is A&O x4 and answers all questions appropriately at this time. Pt sitting up in bed with trach collar on in no distress. Care providers, pharmacy, and demographics verified/updated. Admitting Dx:aspiration pneumonia PCP:LEÓN Knowles Specialists:[place], onc; Nathan, pulm; Santos nephro; Pastor, ENT, eye dr in [place] Preferred Pharmacy:[facility] Insurance:[employer], [employer] Sr Supp Prescription Benefit: yes LNOK:Christiane Graham, sig other Living Arrangements: Pt lives with sig other in a single story home with 2 steps to enter. Pt states typically he is I in ADL's and TF but most recently he has needed Christiane's help with all. Pt denies concerns at home. Transportation: Pt has not driven in the last 6 mos, Christiane provides transportation. DME:Oxygen through [employer], needs confirmed liter flow, walker, rollator, hospital bed, [facility] being [facility] with [facility] for SN and PT. Pt has been to [facility]CU in the past. Pt states no concerns with going home at time of dc. He believes he can go back home with the [facility], therapy evals pending. Pt states no further concerns/needs. CM to follow. Advised pt to ask CM if any further question/concerns/needs arise, voices understanding. Pt Goal:Home with HHC resuming Plan:Home with HHC resuming pending therapy evals. Follow for increased oxygen needs.
[2023-03-16 15:15] VITALS: BP 130/71; PULSE 77; RESP 18; TEMP 36.7; O2SAT 94
--- NOTE | 2023-03-16 16:22 | PCM.PN.HOSP ---
Reason for Visit Reason for Visit: Diagnoses Pneumonitis due to inhalation of food and vomit (03/15/23) Subjective Subjective Seen and examined today, he appears comfortable at rest on 3 L, white blood cell count today was 9.8, hemoglobin was 7.6. Patient has been afebrile today Objective Data Objective Data Vital Signs: Vital Signs Temp Pulse Resp BP Pulse Ox O2 Del Method O2 Flow Rate 97.8 F 80 18 107/58 L 97 Trach Collar 3 03/16/23 10:21 03/16/23 10:21 03/16/23 10:21 03/16/23 10:21 03/16/23 10:21 03/16/23 14:16 03/16/23 14:16 Oxygen Flow Rate (L/min) 3 Oxygen Delivery Method Trach Collar Weight: 63.503 kg Body Mass Index (BMI) 19.8 Intake & Output: Intake and Output for Last 24 Hours 03/14/23 03/15/23 03/16/23 23:59 23:59 23:59 Intake Total 4197 / 4197 2663.33 / 2663.33 Output Total 500 / 500 150 / 150 Balance 3697 / 3697 2513.33 / 2513.33 Medical Nutrition Assessment Dietitian: Malnutrition Criteria Met Start: 03/15/23 15:38 Freq: Status: Active Protocol: Document 03/15/23 15:38 AG (Rec: 03/15/23 15:38 AG Desktop) Nutrition Malnutrition Evidence of Malnutrition Exists Yes Malnutrition (moderate): Chronic Evidenced By Suboptimal Energy Intake ( Moderate),Physical Changes ( Severe) Clinical Problem Chronic Disease or Condition Related Malnutrition Etiology moderate, chronic malnutrition related to increased energy needs d/t resp. failure Signs/Symptoms as evidenced by severe muscle wasting/fat loss evident per physical exam in orbital, clavicle, acromion, and temporal areas, estimated energy from tube feeds meeting ~67% of estimated calorie needs Status Active Problem Recommendation Dietitian Recommendations/Changes NPO; Will adjust EN via PEG to match home enteral nutrition- 240mL bolus 5x/day w/ 100mL H2O flush before and after each bolus to provide 1800 calories, 77 g protein, and 1912mL total fluid/day Lab / Micro Data 03/16/23 07:00 03/16/23 07:00 Labs: Laboratory Results - last 24 hr 03/15/23 15:50: Urine Color Yellow, Urine Clarity Clear, Urine pH 8.0, Ur Specific [place] 1.010, Urine Protein 30 H, Urine Glucose (UA) Normal, Urine Ketones Negative, Urine Occult Blood 50 H, Urine Nitrite Negative, Urine Bilirubin Negative, Urine Urobilinogen Normal, Ur Leukocyte Esterase 25 H, Urine RBC 5-10 SEEN, Urine WBC 0-5 SEEN, Ur Squamous Epith Cells 0 SEEN, Urine Bacteria 0 SEEN, Urine Mucus 0 SEEN 03/15/23 16:00: Lactic Acid 1.1 03/16/23 07:00: WBC 9.8, RBC 2.54 L, Hgb 7.6 L, Hct 25.7 L, MCV 101.2 H, MCH 29.9, MCHC 29.6 L, RDW Std Deviation 59.8 H, RDW Coeff of Oz 16.2 H, Plt Count 182, MPV 12.4 H, Immature Gran % (Auto) 0.500, Neut % (Auto) 75.9 H, Lymph % (Auto) 15.4 L, [place] % (Auto) 6.2, Eos % (Auto) 1.5, Baso % (Auto) 0.5, Absolute Neuts (auto) 7.5, Absolute Lymphs (auto) 1.52, Nucleated RBC % 0, Sodium 142, Potassium 3.9, Chloride 111 H, Carbon Dioxide 29.0, Anion Gap 2 L, BUN 27 H, Creatinine 1.54 H, Estim Creat Clear Calc 37.23, Est GFR (MDRD) Af Amer 57 L, Est GFR (MDRD) Non-Af 47 L, BUN/Creatinine Ratio 17.5, Glucose 89, Calcium 9.1 Rhythm Strip Rhythm Strip: Sinus Rhythm (w/ vent pacing) Rate: 90 Ectopy: None Physical Exam Narrative alert, oriented x3 and no apparent distress General Appearance: cooperative, well kempt and well developed Orientation / Consciousness: awake, oriented to person, oriented to place and oriented to time HEENT normocephalic and head/scalp atraumatic HEENT Narrative: Tracheostomy is present Eyes PERRL, EOMs intact bilaterally and conjunctivae normal Neck supple and no JVD Neck Narrative: Tracheostomy is present Resp normal respiratory effort, no retractions and no use of accessory muscles Resp Narrative: Breath sounds are diminished bilaterally Auscultation: Negative for rales, rhonchi or wheezes Cardio regular rate, regular rhythm, S1 normal heart sound, S2 normal heart sound, no murmurs, no rub and no gallops GI normal to inspection, nondistended, normoactive bowel sounds, soft to palpation, non-tender and non-distended Extremity no clubbing, cyanosis or edema Skin no rashes or lesions noted General Skin Exam: no breakdown Neuro oriented x3, CN's II-XII intact bilaterally, moves all extremities, no focal motor deficits and no sensory deficits noted Sensorium / Orientation: awake and alert Speech: speech normal Psych affect normal Assessment & Plan Assessment/Plan (1) Aspiration pneumonia: PLAN: Plan 1. Sepsis secondary to aspiration pneumonia-patient will remain on IV Zosyn #2 aspiration pneumonia-aerosol treatments will be given, patient will remain on IV Zosyn #3 hypotension-probably secondary to dehydration, patient will be given IV fluids blood pressure will be monitored #4 dehydration-patient will be given IV fluids, labs will be monitored #5 chronic obstructive pulmonary disease-complicates care, medical course, recovery, and prognosis #6 dysphagia secondary to past history of laryngeal cancer #7 chronic hypoxic respiratory failure-secondary to COPD Total clinical time spent by myself addressing the patient's medical issues, reviewing all of his data, and collaborating with patient's care team: 25 minutes Charges/Coding Visit Charges Inpatient E&M: 98620 [facility] Hosp L1
[2023-03-16 19:29] VITALS: PULSE 82; RESP 20
[2023-03-16 21:45] VITALS: BP 143/73; PULSE 84; RESP 18; TEMP 36.9; O2SAT 93
[2023-03-16] MEDS: Menthol/Lanolin/Calamine/Znox 113 GM Tube 1 APPLIC TOPICAL (22:00)
[2023-03-17] VITALS (8 sets, daily range): BP systolic 124–148; BP diastolic 73–82; PULSE 96–99; RESP 15–24; TEMP 36.7–37.8; O2SAT 90–98
[2023-03-17] MEDS: Levothyroxine 50 MCG Tablet GT (05:19)
[2023-03-17] MEDS: Piperacil/Tazobactam 3.375 GM in 0.9% Normal Saline (50mL MB+) 50 ML IV ×3 (05:21→23:07)
[2023-03-17] MEDS: 0.9% Normal Saline (1000mL) 1,000 ML 125 ML IV (05:21)
[2023-03-17] MEDS: Jevity 1.5. 1,000 ML Bottle 240 ML GT ×2 (06:47→11:13)
[2023-03-17] MEDS: Budesonide Respules 0.5 MG/2 ML AMPUL.NEB. INHALATION ×2 (07:12→20:11)
[2023-03-17] MEDS: Ipratropium/Albuterol Sulfate 3 ML AMPUL.NEB INHALATION (07:12)
[2023-03-17] MEDS: APIXABAN 2.5 MG TABLET (WCH) GT ×2 (08:14→23:03)
[2023-03-17] MEDS: Midodrine HCl 5 MG Tablet 15 MG GT ×2 (08:14→11:13)
[2023-03-17] MEDS: Ferrous Sulfate 300 MG/5 ML UDC GT (08:14)
[2023-03-17] MEDS: Amiodarone 200 MG Tablet GT (08:15)
[2023-03-17] MEDS: Gabapentin 300 MG Capsule GT ×2 (08:15→23:17)
[2023-03-17] MEDS: Menthol/Lanolin/Calamine/Znox 113 GM Tube 1 APPLIC TOPICAL ×2 (08:16→23:07)
--- NOTE | 2023-03-17 10:35 | PCM.PN.HOSP ---
Reason for Visit Reason for Visit: Diagnoses Pneumonitis due to inhalation of food and vomit (03/15/23) Subjective Subjective Patient was seen and examined today, he states he still feels weak and he wants physical therapy to work with him today. Patient is currently on room air according to charting. Objective Data Objective Data Vital Signs: Vital Signs Temp Pulse Resp BP Pulse Ox O2 Del Method O2 Flow Rate 98.1 F 96 18 124/73 H 95 Trach Collar 4 03/17/23 08:11 03/17/23 08:11 03/17/23 08:11 03/17/23 08:11 03/17/23 08:11 03/17/23 09:59 03/17/23 07:12 Oxygen Flow Rate (L/min) 4 Oxygen Delivery Method Trach Collar Weight: 63.503 kg Body Mass Index (BMI) 19.8 Intake & Output: Intake and Output for Last 24 Hours 03/15/23 03/16/23 03/17/23 23:59 23:59 23:59 Intake Total 4197 / 4197 4053.33 / 4053.33 1390 / 1390 Output Total 500 / 500 1150 / 1150 350 / 350 Balance 3697 / 3697 2903.33 / 2903.33 1040 / 1040 Medical Nutrition Assessment Dietitian: Malnutrition Criteria Met Start: 03/15/23 15:38 Freq: Status: Active Protocol: Document 03/15/23 15:38 AG (Rec: 03/15/23 15:38 AG Desktop) Nutrition Malnutrition Evidence of Malnutrition Exists Yes Malnutrition (moderate): Chronic Evidenced By Suboptimal Energy Intake ( Moderate),Physical Changes ( Severe) Clinical Problem Chronic Disease or Condition Related Malnutrition Etiology moderate, chronic malnutrition related to increased energy needs d/t resp. failure Signs/Symptoms as evidenced by severe muscle wasting/fat loss evident per physical exam in orbital, clavicle, acromion, and temporal areas, estimated energy from tube feeds meeting ~67% of estimated calorie needs Status Active Problem Recommendation Dietitian Recommendations/Changes NPO; Will adjust EN via PEG to match home enteral nutrition- 240mL bolus 5x/day w/ 100mL H2O flush before and after each bolus to provide 1800 calories, 77 g protein, and 1912mL total fluid/day Lab / Micro Data 03/16/23 07:00 03/16/23 07:00 Micro: Microbiology 03/15/23 15:50 Urine, Clean Catch Urine Culture - Final Culture exhibits no growth. Rhythm Strip Rhythm Strip: Sinus Rhythm (w/ vent pacing) Rate: 90 Ectopy: None Physical Exam Narrative alert, oriented x3 and no apparent distress General Appearance: cooperative, well kempt and well developed Orientation / Consciousness: awake, oriented to person, oriented to place and oriented to time HEENT normocephalic and head/scalp atraumatic HEENT Narrative: Tracheostomy is present Eyes PERRL, EOMs intact bilaterally and conjunctivae normal Neck supple and no JVD Neck Narrative: Tracheostomy is present Resp normal respiratory effort, no retractions and no use of accessory muscles Resp Narrative: Breath sounds are diminished bilaterally Auscultation: Negative for rales, rhonchi or wheezes Cardio regular rate, regular rhythm, S1 normal heart sound, S2 normal heart sound, no murmurs, no rub and no gallops GI normal to inspection, nondistended, normoactive bowel sounds, soft to palpation, non-tender and non-distended Extremity no clubbing, cyanosis or edema Skin no rashes or lesions noted General Skin Exam: no breakdown Neuro oriented x3, CN's II-XII intact bilaterally, moves all extremities, no focal motor deficits and no sensory deficits noted Sensorium / Orientation: awake and alert Speech: speech normal Psych affect normal Assessment & Plan Assessment/Plan (1) Aspiration pneumonia: PLAN: Plan 1. Sepsis secondary to aspiration pneumonia-patient will remain on IV Zosyn #2 aspiration pneumonia-aerosol treatments will be given, patient will remain on IV Zosyn #3 hypotension-resolved at this time, I will stop the patient's IV fluids #4 dehydration-I will recheck the patient's BMP tomorrow, I do not believe he still needs IV fluids #5 chronic obstructive pulmonary disease-complicates care, medical course, recovery, and prognosis #6 dysphagia secondary to past history of laryngeal cancer #7 chronic hypoxic respiratory failure-secondary to COPD #8 generalized debility-I will have physical therapy evaluate the patient Total clinical time spent by myself addressing the patient's medical issues, reviewing all of his data, and collaborating with patient's care team: 25 minutes Charges/Coding Visit Charges Inpatient E&M: 04591 Subs Hosp L1
[2023-03-17] MEDS: 0.9 % NaCl (Sterile) Posiflush 10 mL IV (23:07)
[2023-03-17] MEDS: HYDROcodone Bitartrate/Apap 5/325 Tablet PO (23:18)
[2023-03-17] MEDS: guaiFENesin Dm 10 ML UDC 5 ML PO (23:18)
--- NOTE | 2023-03-17 23:47 | CPS ---
Patient placed on 40% cool aerosal for the night. Dr. Ferguson aware.
[2023-03-18] VITALS (10 sets, daily range): BP systolic 121–171; BP diastolic 77–122; PULSE 89–102; RESP 15–18; TEMP 36.3–36.9; O2SAT 92–99
[2023-03-18] MEDS: Piperacil/Tazobactam 3.375 GM in 0.9% Normal Saline (50mL MB+) 50 ML IV ×3 (05:01→23:11)
[2023-03-18] MEDS: Levothyroxine 50 MCG Tablet GT (05:01)
--- NOTE | 2023-03-18 05:25 | CPS ---
Patient desat to mid 80's. Patient suctioned by RT, fio2 increased to 70% to maintain sat's above 90%.
[2023-03-18] MEDS: Budesonide Respules 0.5 MG/2 ML AMPUL.NEB. INHALATION ×2 (07:18→17:48)
[2023-03-18] MEDS: APIXABAN 2.5 MG TABLET (WCH) GT ×2 (08:47→23:06)
[2023-03-18] MEDS: Ferrous Sulfate 300 MG/5 ML UDC GT (08:47)
[2023-03-18] MEDS: Menthol/Lanolin/Calamine/Znox 113 GM Tube 1 APPLIC TOPICAL ×2 (08:48→23:07)
[2023-03-18] MEDS: Jevity 1.5. 1,000 ML Bottle 240 ML GT ×2 (08:49→17:11)
[2023-03-18] MEDS: Amiodarone 200 MG Tablet GT (08:57)
[2023-03-18] MEDS: Gabapentin 300 MG Capsule GT ×2 (08:57→23:06)
[2023-03-18 09:13] LABS: Absolute Lymphocyte Count 1.09 X10^3/uL (0.83-4.51); Absolute Neutrophil Count 6.6 X10^3/uL (2.0-7.7); Basophil# 0.03 X10^3/uL; Basophil% 0.4 % (0-1); Eosinophil# 0.03 X10^3/uL; Eosinophils% 0.4 % (0-5); Hematocrit 27.8 % (40-54); Hemoglobin 8.5 g/dL (13.0-16.5); Lymphocyte # 1.09 X10^3/ul (0.83-4.51); Lymphocyte % 13.1 % (19-41); Mean Corp Hgb Conc 30.6 g/dL (32-36); Mean Corpuscular Hgb 30.5 pg (27.0-32.0); Mean Corpuscular Volume 99.6 fL (80-94); Monocyte# 0.55 X10^3/uL; Monocyte% 6.6 % (0-10); NRBC Flagged by Analyzer 0 % (0-5); Neutrophil # 6.59 X10^3/uL (2.7-7.7); Neutrophil % 78.9 % (47-70); Platelet Count 197 K/mm3 (150-450); RBC Distribution Width CV 15.3 % (11.6-14.6); RBC Distribution Width SD 56.7 fl (35.1-43.9); Red Blood Count 2.79 M/mm3 (4.6-6.2); White Blood Count 8.3 K/mm3 (4.4-11.0)
[2023-03-18] MEDS: HYDROcodone Bitartrate/Apap 5/325 Tablet PO ×3 (09:37→19:40)
[2023-03-18 09:51] LABS: Anion Gap 6 (5-15); BUN 17 mg/dL (7-18); BUN/Creat Ratio 13.5 RATIO (10-20); Calcium,Total 9.5 mg/dL (8.5-10.1); Chloride 107 mmol/L (98-107); Creatinine, Serum 1.26 mg/dL (0.70-1.30); EST Glomerular Filtration Rate 59 mL/min (>60); Est Glom Filt Rate - Afr Amer 72 mL/min (>60); Glucose 77 mg/dL (74-106); Potassium 4.1 mmol/L (3.5-5.1); Sodium Level 139 mmol/L (136-145)
--- NOTE | 2023-03-18 15:09 | PN_ITS ---
Subjective Subjective Patient seen and examined. He was on 10 L of oxygen via his trach collar. He had no active complaints. He said he did not feel his breathing was improving. He usually wears 2 to 4 L of oxygen at home. He is coughing. Review of systems otherwise negative. Objective Data Objective Data Vital Signs: Vital Signs Temp Pulse Resp BP Pulse Ox O2 Del Method O2 Flow Rate 97.3 F L 92 16 132/82 H 99 Trach Collar 12 03/18/23 11:45 03/18/23 11:45 03/18/23 11:45 03/18/23 11:45 03/18/23 11:45 03/18/23 14:00 03/18/23 08:44 FiO2 50 03/18/23 08:44 Oxygen Flow Rate (L/min) 12 Oxygen Delivery Method Trach Collar Weight: 140 lb 0.002 oz Body Mass Index (BMI) 19.8 Intake & Output: Intake and Output for Last 24 Hours 03/16/23 03/17/23 03/18/23 23:59 23:59 23:59 Intake Total 4053.33 / 4053.33 2609.17 / 2609.17 300 / 300 Output Total 1150 / 1150 925 / 925 500 / 500 Balance 2903.33 / 2903.33 1684.17 / 1684.17 -200 / -200 Medical Nutrition Assessment Dietitian: Malnutrition Criteria Met Start: 03/15/23 15:38 Freq: Status: Active Protocol: Document 03/15/23 15:38 AG (Rec: 03/15/23 15:38 AG Desktop) Nutrition Malnutrition Evidence of Malnutrition Exists Yes Malnutrition (moderate): Chronic Evidenced By Suboptimal Energy Intake ( Moderate),Physical Changes ( Severe) Clinical Problem Chronic Disease or Condition Related Malnutrition Etiology moderate, chronic malnutrition related to increased energy needs d/t resp. failure Signs/Symptoms as evidenced by severe muscle wasting/fat loss evident per physical exam in orbital, clavicle, acromion, and temporal areas, estimated energy from tube feeds meeting ~67% of estimated calorie needs Status Active Problem Recommendation Dietitian Recommendations/Changes NPO; Will adjust EN via PEG to match home enteral nutrition- 240mL bolus 5x/day w/ 100mL H2O flush before and after each bolus to provide 1800 calories, 77 g protein, and 1912mL total fluid/day Lab / Micro Data 03/18/23 09:01 03/18/23 09:01 Labs: Laboratory Results - last 24 hr 03/18/23 09:01: WBC 8.3, RBC 2.79 L, Hgb 8.5 L, Hct 27.8 L, MCV 99.6 H, MCH 30.5, MCHC 30.6 L, RDW Std Deviation 56.7 H, RDW Coeff of Oz 15.3 H, Plt Count 197, MPV 12.0, Immature Gran % (Auto) 0.600, Neut % (Auto) 78.9 H, Lymph % (Auto) 13.1 L, [place] % (Auto) 6.6, Eos % (Auto) 0.4, Baso % (Auto) 0.4, Absolute Neuts (auto) 6.6, Absolute Lymphs (auto) 1.09, Nucleated RBC % 0, Sodium 139, Potassium 4.1, Chloride 107, Carbon Dioxide 26.0, Anion Gap 6, BUN 17, Creatinine 1.26, Estim Creat Clear Calc 45.50, Est GFR (MDRD) Af Amer 72, Est GFR (MDRD) Non-Af 59 L, BUN/Creatinine Ratio 13.5, Glucose 77, Calcium 9.5 Micro: Microbiology 03/15/23 11:16 Blood Culture (Wb) - Port Blood Culture - Preliminary No growth in 48 hours. 03/15/23 09:40 Blood Culture (Wb) - Left Forearm Blood Culture - Preliminary No growth in 48 hours. 03/15/23 15:50 Urine, Clean Catch Urine Culture - Final Culture exhibits no growth. Rhythm Strip Rhythm Strip: Sinus Rhythm (w/ vent pacing) Rate: 90 Ectopy: None Physical Exam Const alert, oriented x3 and no apparent distress General Appearance: cooperative HEENT normocephalic and head/scalp atraumatic Eyes PERRL and EOMs intact bilaterally Neck no lymphadenopathy and supple Lymph Lymphatic: no lymphadenopathy noted and no lymphedema noted Resp Resp Narrative: Moderately diminished breath sounds bibasilarly. Few crackles. On 10 L of oxygen via trach collar. Cardio regular rate, regular rhythm, S1 normal heart sound, S2 normal heart sound and no murmurs GI normal to inspection, nondistended, normoactive bowel sounds, soft to palpation, non-tender and non-distended GI Narrative: Has PEG tube in place. Extremity normal capillary refill, no clubbing, cyanosis or edema and no calf tenderness General Extremity: no tenderness to palpation of joints or extremities Skin General Skin Exam: no breakdown Neuro CN's II-XII intact bilaterally, no focal motor deficits, no sensory deficits noted and deep tendon reflexes 2+ bilaterally Motor Exam: strength 5/5 throughout and general weakness Psych thought process normal Appearance: appropriate Assessment & Plan Assessment/Plan (1) Aspiration pneumonia: PLAN: Plan #Sepsis due to aspiration pneumonia * on IV zosyn. Still requiring oxygen. * breathing treatment with bronchodilators * titrate oxygen to maintain sats >90% * breathing treatment with bronchodilators * Blood cultures showed no growth after 48 hours. * No sputum cultures ordered on admission. Though he has been on antibiotics since admission, I think it is reasonable to still get a sputum culture. * #Acute on Chronic respiratory failure: * Usually on 2 to 4 L of oxygen at home due to COPD. * Now on 12L of oxygen via trach collar * Breathing treatments with bronchodilators. * #Dehydration and hypotension; resolved. On midodrine chronically for chronic hypotension. #Afib: on amiodarone and elliquis. 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 Has PEG tube in place and on tube feeds with Jevity. DVT prophylaxis: on eliquis Total time spent on evaluation and management of patient, reviewing chart and specialist notes, discussing plan with patient and his , discussion with nursing and ancillary staff as well as documentation: 45 mins Charges/Coding Visit Charges Inpatient E&M: 47489 Subs Hosp L3
[2023-03-19] VITALS (16 sets, daily range): BP systolic 115–166; BP diastolic 70–102; PULSE 92–106; RESP 15–18; TEMP 36.2–36.9; O2SAT 87–97
[2023-03-19] MEDS: HYDROcodone Bitartrate/Apap 5/325 Tablet PO ×4 (02:07→22:51)
[2023-03-19] MEDS: Ipratropium/Albuterol Sulfate 3 ML AMPUL.NEB INHALATION ×4 (02:20→20:33)
[2023-03-19] MEDS: Levothyroxine 50 MCG Tablet GT (06:34)
[2023-03-19] MEDS: Piperacil/Tazobactam 3.375 GM in 0.9% Normal Saline (50mL MB+) 50 ML IV ×3 (06:34→22:49)
[2023-03-19 08:32] LABS: Absolute Lymphocyte Count 1.47 X10^3/uL (0.83-4.51); Absolute Neutrophil Count 5.1 X10^3/uL (2.0-7.7); Basophil# 0.03 X10^3/uL; Basophil% 0.4 % (0-1); Eosinophil# 0.05 X10^3/uL; Eosinophils% 0.7 % (0-5); Hematocrit 28.4 % (40-54); Hemoglobin 8.5 g/dL (13.0-16.5); Lymphocyte # 1.47 X10^3/ul (0.83-4.51); Lymphocyte % 20.5 % (19-41); Mean Corp Hgb Conc 29.9 g/dL (32-36); Mean Corpuscular Hgb 29.4 pg (27.0-32.0); Mean Corpuscular Volume 98.3 fL (80-94); NRBC Flagged by Analyzer 0 % (0-5); Neutrophil # 5.08 X10^3/uL (2.7-7.7); Neutrophil % 70.8 % (47-70); Platelet Count 206 K/mm3 (150-450); RBC Distribution Width SD 54.2 fl (35.1-43.9); Red Blood Count 2.89 M/mm3 (4.6-6.2); White Blood Count 7.2 K/mm3 (4.4-11.0)
[2023-03-19] MEDS: Amiodarone 200 MG Tablet GT (08:35)
[2023-03-19] MEDS: Ferrous Sulfate 300 MG/5 ML UDC GT (08:35)
[2023-03-19] MEDS: Jevity 1.5. 1,000 ML Bottle 240 ML GT ×4 (08:35→22:52)
[2023-03-19] MEDS: APIXABAN 2.5 MG TABLET (WCH) GT ×2 (08:35→22:51)
[2023-03-19] MEDS: Menthol/Lanolin/Calamine/Znox 113 GM Tube 1 APPLIC TOPICAL ×2 (08:36→22:52)
[2023-03-19] MEDS: guaiFENesin Dm 10 ML UDC 5 ML PO (08:42)
[2023-03-19] MEDS: Gabapentin 300 MG Capsule GT ×2 (08:42→22:50)
[2023-03-19 09:20] LABS: Anion Gap 12 (5-15); BUN 13 mg/dL (7-18); BUN/Creat Ratio 10.9 RATIO (10-20); Calcium,Total 7.3 mg/dL (8.5-10.1); Chloride 104 mmol/L (98-107); Creatinine, Serum 1.19 mg/dL (0.70-1.30); EST Glomerular Filtration Rate 63 mL/min (>60); Est Glom Filt Rate - Afr Amer 77 mL/min (>60); Estimated Creatinine Clearance 48.18 ml/min; Glucose 68 mg/dL (74-106); Potassium 3.5 mmol/L (3.5-5.1); Sodium Level 137 mmol/L (136-145)
--- NOTE | 2023-03-19 10:24 | EX.PCM.CONCC ---
Assessment & Plan Assessment/Plan (1) Acute and chronic respiratory failure with hypoxia: PLAN: Plan RECOMMENDATIONS: 1. Continue antimicrobials to complete 7 days of therapy. 2. Continue scheduled bronchodilator therapy. 3. Start prednisone 40 mg daily via G-tube x 5 days. 4. Initiate attempts at diuresis today. 5. Wean trach collar supplemental O2 to maintain saturations at or above 90%. 6. Physical therapy to work with the patient. IMPRESSIONS: 1. Acute on chronic hypoxemic respiratory failure The patient initially presented to the hospital once again in the setting of an acute aspiration event, likely leading to the development of pneumonia and an exacerbation of his obstructive lung disease. The patient has been maintained on aerosol treatments and antimicrobials. I am going to place him on prednisone via his G-tube for 5 days. In addition, the patient is overall net positive from a volume perspective for the hospitalization. Accordingly, he will be initiated on gentle diuresis today. In the interim, his trach collar supplemental O2 will be weaned to maintain saturations at or above 90%. Continue nutritional support via G-tube. 2. 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 Continue supportive care as noted above. Physical therapy to work with the patient. CODE STATUS: DNR CCA This note was generated with [employer] dictation software. It may contain incorrect words, spelling, and punctuation that were not noted in checking the note before signing. HPI Consult Data Date of Consult: 03/19/23 HPI Narrative Reason for Consultation: Acute on chronic respiratory failure HPI Narrative: The patient is a 77-year-old male, well-known to me from the pulmonary medicine clinic, who presented initially to the emergency department on March 15 via EMS with shortness of breath and fever. The patient had apparently vomited the night prior to his arrival and has a known history of aspiration pneumonia/pneumonitis. At his baseline, the patient typically utilizes between 2 and 4 L/min of supplemental oxygen. In fact, I just saw the patient in the pulmonary medicine office on March 11, at which time, he was clinically stable on his baseline scheduled DuoNebs and budesonide. On presentation to the emergency department, the patient was documented to be febrile with a temperature of 102.4 ?F. He was somewhat hypotensive with a blood pressure of 78/51 mmHg. Initial laboratory evaluation revealed a white blood cell count of 13,000. Chemistry profile was notable for a creatinine of 1.94. Lactate was mildly elevated at 2.1. Chest imaging demonstrated bilateral lower lobe infiltrates in effusions. The patient was subsequently admitted to the progressive care unit and placed on antimicrobials. As of this morning, the patient is requiring trach collar supplemental oxygen at 10 to 12 L/min. He is currently documented to be overall net +7 L for the hospitalization. It should be noted that the patient did have an echocardiogram in December 2022 which revealed an ejection fraction of 35 to 40%. The patient remains on scheduled bronchodilators and antimicrobials. [facility] Medical History (Updated 03/19/23 @ 10:[address] 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 Shortness of breath on exertion Thrush, oral Tracheostomy in place tracheotomy and laryngeal biopsy Wears glasses Home Medications lactose-reduced food with fiber 0.06 gram-1.5 kcal/mL oral liquid (Jevity 1.5 Dipesh) 300 ml G-tube 4X/DAY NUTRITION #0 mL 01/25/23 [Rx Last Taken 03/14/23] ferrous sulfate 300 mg (60 mg iron)/5 mL oral liquid 300 mg (5 mL) G-tube BREAKFAST SUPPLEMENT #0 mL 01/29/23 [Rx Last Taken 01/29/23 09:50] levothyroxine 50 mcg tablet 50 mcg G-tube DAILY@0600 THYROID #0 tabs 01/29/23 [Rx Last Taken 03/15/23] amiodarone 200 mg tablet 200 mg G-tube DAILY AFIB 30 days #30 tabs 02/13/23 [Rx Last Taken 03/14/23] midodrine 5 mg tablet 15 mg (3 x 5 mg) G-tube TIDCM BLOOD PRESSURE 30 days #270 tabs 02/13/23 [Rx Last Taken 03/15/23] budesonide 0.5 mg/2 mL suspension for nebulization 0.5 mg (2 mL) inhalation BID COPD #120 mL 03/11/23 [Rx Last Taken Unknown] ipratropium 0.5 mg-albuterol 3 mg (2.5 mg base)/3 mL nebulization soln 3 ml inhalation Q4H PRN COPD #180 mL 03/11/23 [Rx Last Taken Unknown] apixaban 2.5 mg tablet (Eliquis) 2.5 mg feeding tube BID BLOOD THINNER 03/15/23 [History Last Taken 03/14/23] gabapentin 300 mg capsule 300 mg feeding tube BID NERVE PAIN 03/15/23 [History Last Taken 03/15/23] omeprazole 40 mg capsule,delayed release 40 mg feeding tube DAILY ACID REFLUX 03/15/23 [History Last Taken 03/14/23] Allergy/AdvReac Type Severity Reaction Status Date / Time venom-wasp Allergy Anaphylaxis Verified 03/15/23 09:35 nystatin AdvReac Severe Nausea/Vom/ Verified 03/15/23 09:35 Diarrhea pseudoephedrine HCl AdvReac Severe Unknown Verified 03/15/23 09:35 [From Sudafed] Antihistamines - Alkylamine AdvReac Mild Other Verified 03/15/23 09:35 Family History Father Colon cancer Hypertension Mother Hypertension Surgical History History of gastrostomy History of surgery History of tracheostomy Hx of tonsillectomy S/P percutaneous endoscopic gastrostomy (PEG) tube placement S/P TURP Social History household members: significant other Smoking Status: Former smoker quit date: 04/08/17 pack-years: 55 alcohol intake: never substance use type: does not use ROS ROS Narrative 10 systems were reviewed with pertinent positives as noted in the HPI above. Physical Exam Const alert and no apparent distress Constitutional Narrative: Frail and cachectic in appearance. General Appearance: cooperative HEENT normocephalic and head/scalp atraumatic Eyes PERRL, EOMs intact bilaterally and conjunctivae normal Neck supple Neck Narrative: Stable tracheostomy site General: trachea midline Chest inspection of chest normal Resp normal respiratory effort Auscultation: diminished lung sounds Cardio regular rate and regular rhythm GI normal to inspection, nondistended, normoactive bowel sounds Inspection: GI tube present Extremity no clubbing, cyanosis or edema Skin no rashes or lesions noted Neuro CN's II-XII intact bilaterally and no focal motor deficits Psych cooperative and affect normal Medical Records Data Medical Nutrition Assessment Dietitian: Malnutrition Criteria Met Start: 03/15/23 15:38 Freq: Status: Active Protocol: Document 03/18/23 15:44 RMA (Rec: 03/18/23 15:44 RMA [id number]) Nutrition Malnutrition Evidence of Malnutrition Exists Yes Malnutrition (moderate): Chronic Evidenced By Suboptimal Energy Intake ( Moderate),Physical Changes ( Severe) Clinical Problem Chronic Disease or Condition Related Malnutrition Etiology moderate, chronic malnutrition related to increased energy needs d/t resp. failure Signs/Symptoms as evidenced by severe muscle wasting/fat loss evident per physical exam in orbital, clavicle, acromion, and temporal areas, estimated energy from tube feeds meeting ~67% of estimated calorie needs Status Active Problem Recommendation Dietitian Recommendations/Changes NPO; Continue TF via PEG to match home enteral nutrition- 240mL bolus 5x/day w/ 100mL H2O flush before and after each bolus to provide 1800 calories, 77 g protein, and 1912mL total fluid/day. Current weight as able. Discouraged refusal of bolus feedings. Lab / Micro Data 03/19/23 07:50 03/19/23 07:50 Labs: Laboratory Results - last 24 hr 03/19/23 07:50: WBC 7.2, RBC 2.89 L, Hgb 8.5 L, Hct 28.4 L, MCV 98.3 H, MCH 29.4, MCHC 29.9 L, RDW Std Deviation 54.2 H, RDW Coeff of Oz 15.0 H, Plt Count 206, MPV 12.0, Immature Gran % (Auto) 0.600, Neut % (Auto) 70.8 H, Lymph % (Auto) 20.5, [place] % (Auto) 7.0, Eos % (Auto) 0.7, Baso % (Auto) 0.4, Absolute Neuts (auto) 5.1, Absolute Lymphs (auto) 1.47, Nucleated RBC % 0, Sodium 137, Potassium 3.5, Chloride 104, Carbon Dioxide 21.0, Anion Gap 12, BUN 13, Creatinine 1.19, Estim Creat Clear Calc 48.18, Est GFR (MDRD) Af Amer 77, Est GFR (MDRD) Non-Af 63, BUN/Creatinine Ratio 10.9, Glucose 68 L, Calcium 7.3 L Rhythm Strip Rhythm Strip: Sinus Rhythm (w/ vent pacing) Rate: 90 Ectopy: None Charges/Coding Visit Charges Inpatient E&M: 87720 Init Hosp L3
--- NOTE | 2023-03-19 10:28 | VDUE_ITS ---
Reason For Study: LUE Swelling Left Proximal Left jugular vein is spontaneous, widely patent, phasic, with no intraluminal echogenicity noted. Left subclavian vein is spontaneous, widely patent, phasic, with no intraluminal echogenicity noted. Left Arm Left axillary vein is spontaneous, patent, phasic, competent, compressible and demonstrates augmentation. Left brachial vein is compressible. Left cephalic vein is compressible. Vein wall thickening noted throughout distal to mid cephalic vein. Left basilic vein is compressible. Left Lower Arm Left radial vein is compressible. Left ulnar vein is compressible. Patient Safety Preliminary result delivered to Jodi CH RN. VL/Venous Duplex US, Unilateral Interpretation Summary Deep veins of the left upper extremity are patent and compressible segmentally. There is no evidence of deep vein thrombosis. Superficial veins of the left upper extremity are patent and compressible segme ntally. There is no evidence of superficial vein thrombosis. Ordering Physician: Gabriella Cisse Referring Physician: Noe Aquino Performed By: Wade Pichardo RVT ???
--- NOTE | 2023-03-19 10:35 | RAD_ITS ---
STUDY: X-RAY CHEST REASON FOR EXAM: Male, 77 years old. Respiratory Failure TECHNIQUE: Single AP portable view of the chest. COMPARISON: Comparison is made with prior study dated March 15, 2023. FINDINGS: A tracheostomy tube is in situ with the tip at 6 times approximately elva. A left-sided justin catheter seen with the tip in the right atrium. Since prior study, there has been progressive bilateral airspace disease worse in the right hemithorax with increasing bilateral pleural effusions suggestive of CHF with bibasilar atelectasis worse on the right side. Normal size heart. Normal mediastinum and anival. Normal visualized pulmonary arteries. There is atherosclerotic calcification of the aortic arch with tortuosity. Normal visualized thoracic spine. Normal visualized ribs, clavicles, and shoulders. There is no demonstrated abnormality of the visualized soft tissue structures of the upper abdomen. RAD/Chest 1 View (Portable) IMPRESSION: Worsening bilateral pleural effusions with bilateral airspace disease worse on the right side suggestive of progressive failure. Electronically Signed: Joshua Schneider MD at 14:25 EST ,
[2023-03-19] MEDS: Furosemide 40 MG/4 ML Vial IV ×2 (11:10→17:07)
[2023-03-19] MEDS: predniSONE 20 MG Tablet 40 MG GT (11:10)
[2023-03-19 11:41] LABS: BNP,B-Type NATRIURETIC PEPTIDE 1011.1 pg/mL (0-100)
--- NOTE | 2023-03-19 13:20 | PN_ITS ---
Subjective Subjective Patient seen and examined. He had no active complaints. He is still coughing. He denies any fever, chills, nausea, vomiting or any other symptoms. Review of systems is otherwise negative. He is on 12L of oxygen with 50% FiO2. Objective Data Objective Data Vital Signs: Vital Signs Temp Pulse Resp BP Pulse Ox O2 Del Method O2 Flow Rate 98 F 100 16 115/83 H 96 Trach Collar 10 03/19/23 11:13 03/19/23 12:44 03/19/23 12:44 03/19/23 11:13 03/19/23 12:44 03/19/23 12:44 03/19/23 12:44 FiO2 40 03/19/23 12:44 Oxygen Flow Rate (L/min) 10 Oxygen Delivery Method Trach Collar Weight: 140 lb 0.002 oz Body Mass Index (BMI) 19.8 Intake & Output: Intake and Output for Last 24 Hours 03/17/23 03/18/23 03/19/23 23:59 23:59 23:59 Intake Total 2609.17 / 2609.17 510 / 510 200 / 200 Output Total 925 / 925 1600 / 1600 320 / 320 Balance 1684.17 / 1684.17 -1090 / -1090 -120 / -120 Medical Nutrition Assessment Dietitian: Malnutrition Criteria Met Start: 03/15/23 15:38 Freq: Status: Active Protocol: Document 03/18/23 15:44 RMA (Rec: 03/18/23 15:44 RMA [id number]) Nutrition Malnutrition Evidence of Malnutrition Exists Yes Malnutrition (moderate): Chronic Evidenced By Suboptimal Energy Intake ( Moderate),Physical Changes ( Severe) Clinical Problem Chronic Disease or Condition Related Malnutrition Etiology moderate, chronic malnutrition related to increased energy needs d/t resp. failure Signs/Symptoms as evidenced by severe muscle wasting/fat loss evident per physical exam in orbital, clavicle, acromion, and temporal areas, estimated energy from tube feeds meeting ~67% of estimated calorie needs Status Active Problem Recommendation Dietitian Recommendations/Changes NPO; Continue TF of Jevity 1.5 Dipesh via PEG to match home enteral nutrition support-- 240mL bolus 5x/day with 100mL water flush before and after each bolus to provide 1800 calories, 77 g protein, and 1912mL total fluid/day. Current weight as able. Discouraged refusal of bolus feedings. Lab / Micro Data 03/19/23 07:50 03/19/23 07:50 Labs: Laboratory Results - last 24 hr 03/19/23 07:50: WBC 7.2, RBC 2.89 L, Hgb 8.5 L, Hct 28.4 L, MCV 98.3 H, MCH 29.4, MCHC 29.9 L, RDW Std Deviation 54.2 H, RDW Coeff of Oz 15.0 H, Plt Count 206, MPV 12.0, Immature Gran % (Auto) 0.600, Neut % (Auto) 70.8 H, Lymph % (Auto) 20.5, [place] % (Auto) 7.0, Eos % (Auto) 0.7, Baso % (Auto) 0.4, Absolute Neuts (auto) 5.1, Absolute Lymphs (auto) 1.47, Nucleated RBC % 0, Sodium 137, Potassium 3.5, Chloride 104, Carbon Dioxide 21.0, Anion Gap 12, BUN 13, Creatinine 1.19, Estim Creat Clear Calc 48.18, Est GFR (MDRD) Af Amer 77, Est GFR (MDRD) Non-Af 63, BUN/Creatinine Ratio 10.9, Glucose 68 L, Calcium 7.3 L, B- Natriuretic Peptide 1011.1 H Micro: Microbiology 03/15/23 11:16 Blood Culture (Wb) - Port Blood Culture - Preliminary No growth in 48 hours. 03/15/23 09:40 Blood Culture (Wb) - Left Forearm Blood Culture - Preliminary No growth in 48 hours. 03/15/23 15:50 Urine, Clean Catch Urine Culture - Final Culture exhibits no growth. Rhythm Strip Rhythm Strip: Sinus Rhythm (w/ vent pacing) Rate: 90 Ectopy: None Physical Exam Const alert, oriented x3 and no apparent distress General Appearance: cooperative, well kempt and well developed Orientation / Consciousness: awake HEENT normocephalic and head/scalp atraumatic Eyes PERRL, EOMs intact bilaterally and conjunctivae normal Neck no lymphadenopathy, supple and no JVD Neck Narrative: Tracheostomy is present Lymph Lymphatic: no lymphadenopathy noted and no lymphedema noted Resp normal respiratory effort, no retractions and no use of accessory muscles Resp Narrative: Moderately diminished breath sounds bibasilarly. Few crackles. On 12 L at FiO2 of 50% of oxygen via trach collar. Auscultation: Negative for rales, rhonchi or wheezes Cardio regular rate, regular rhythm, S1 normal heart sound, S2 normal heart sound, no murmurs, no rub and no gallops GI normal to inspection, nondistended, normoactive bowel sounds, soft to palpation, non-tender and non-distended GI Narrative: Has PEG tube in place. Extremity normal capillary refill, no clubbing, cyanosis or edema and no calf tenderness General Extremity: no tenderness to palpation of joints or extremities Skin no rashes or lesions noted General Skin Exam: no breakdown Neuro oriented x3, CN's II-XII intact bilaterally, moves all extremities, no focal motor deficits, no sensory deficits noted and deep tendon reflexes 2+ bilaterally Sensorium / Orientation: awake and alert Speech: speech normal Motor Exam: strength 5/5 throughout and general weakness Psych thought process normal, cooperative and affect normal Appearance: appropriate Assessment & Plan Assessment/Plan (1) Aspiration pneumonia: PLAN: Plan #Sepsis due to aspiration pneumonia * on IV zosyn. Still requiring increased amounts of oxygen. He is on 12L of oxygen at 505 FiO2 * breathing treatment with bronchodilators * titrate oxygen to maintain sats >90% * breathing treatment with bronchodilators * Blood cultures showed no growth after 48 hours. * No sputum cultures ordered on admission. sputum cultures ordered. * due to increasing oxygen requirements, pulmonology consulted. * BNP ordered and markedly elevated at 1011. Being diuresed with IV lasix * started on prednisone also * #Acute on Chronic respiratory failure due to aspiration pneumonia * Usually on 2 to 4 L of oxygen at home due to COPD. * Now on 12L of oxygen via trach collar at 50% FiO2. * Breathing treatments with bronchodilators. * pulmonology consulted * being diuresed with IV lasix as he is in cumulative positive balance by 7L * 2D echo from December 2022 showed EF of 35-40%, with mildly dilated LV * #Dehydration and hypotension; resolved. On midodrine chronically for chronic hypotension. #Afib: on amiodarone and elliquis. 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 Has PEG tube in place and on tube feeds with Jevity. DVT prophylaxis: on eliquis Total time spent on evaluation and management of patient, reviewing chart and specialist notes, discussing plan with patient and his , discussion with nursing and ancillary staff as well as documentation: 47 mins Charges/Coding Visit Charges Inpatient E&M: 73925 Subs Hosp L3
[2023-03-19] MEDS: Budesonide Respules 0.5 MG/2 ML AMPUL.NEB. INHALATION (20:32)
[2023-03-19] MEDS: 0.9% Saline Lock 10 ML Syringe IV (22:53)
[2023-03-20] VITALS (11 sets, daily range): BP systolic 80–123; BP diastolic 63–86; PULSE 89–140; RESP 16–27; TEMP 36.6–37.2; O2SAT 93–97
[2023-03-20] MEDS: Levothyroxine 50 MCG Tablet GT (06:16)
[2023-03-20] MEDS: HYDROcodone Bitartrate/Apap 5/325 Tablet PO ×2 (06:16→17:57)
[2023-03-20] MEDS: Piperacil/Tazobactam 3.375 GM in 0.9% Normal Saline (50mL MB+) 50 ML IV ×3 (06:19→21:49)
[2023-03-20] MEDS: Budesonide Respules 0.5 MG/2 ML AMPUL.NEB. INHALATION ×2 (06:55→21:42)
[2023-03-20] MEDS: Ipratropium/Albuterol Sulfate 3 ML AMPUL.NEB INHALATION ×4 (06:55→21:42)
--- NOTE | 2023-03-20 07:27 | PCM.PN.INT ---
Assessment & Plan Assessment/Plan (1) Acute and chronic respiratory failure with hypoxia: PLAN: Plan RECOMMENDATIONS: 1. Continue antimicrobials to complete 7 days of therapy. 2. Continue scheduled bronchodilator therapy. 3. Continue prednisone 40 mg daily via G-tube x 5 days. 4. Continue attempts at diuresis as tolerated by hemodynamics and renal function. 5. Wean trach collar supplemental O2 to maintain saturations at or above 90%. 6. Physical therapy to work with the patient. IMPRESSIONS: 1. Acute on chronic hypoxemic respiratory failure The patient initially presented to the hospital once again in the setting of an acute aspiration event, likely leading to the development of pneumonia and an exacerbation of his obstructive lung disease. The patient has been maintained on aerosol treatments and antimicrobials. The patient will be continued on prednisone via his G-tube for 5 days, as ordered. The patient remains overall net positive for the hospitalization from a volume perspective. Therefore, he will be continued on scheduled diuretics as tolerated by hemodynamics and renal function. In the interim, his trach collar supplemental O2 will be weaned to maintain saturations at or above 90%. Continue nutritional support via G-tube. 2. 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 Continue supportive care as noted above. Physical therapy to work with the patient. CODE STATUS: DNR CCA This note was generated with [employer] dictation software. It may contain incorrect words, spelling, and punctuation that were not noted in checking the note before signing. Subjective Subjective The patient was seen and examined at the bedside this morning. Events from the last 24 hours have been reviewed. The patient is currently afebrile, hemodynamically stable and maintaining appropriate oxygen saturations on 8 L/min via trach collar. The patient is documented to be overall net +5.3 L for the hospitalization. BNP yesterday was noted to be greater than 1000. Objective Data Objective Data The patient's most recent lab work, culture data and imaging studies have all been personally reviewed. Echocardiogram from December 2022 demonstrated a mildly dilated LV with an ejection fraction of 35%. Blood and urine cultures have not demonstrated any growth to date. Vital Signs: Vital Signs Temp Pulse Resp BP Pulse Ox O2 Del Method O2 Flow Rate 97.8 F 105 H 18 123/63 H 95 Trach Collar 8 03/20/23 03:27 03/20/23 03:27 03/20/23 03:27 03/20/23 03:27 03/20/23 03:27 03/20/23 03:27 03/20/23 03:27 FiO2 40 03/20/23 03:27 Oxygen Flow Rate (L/min) 8 Oxygen Delivery Method Trach Collar Weight: 140 lb 0.002 oz Body Mass Index (BMI) 19.8 Intake & Output: Intake and Output for Last 24 Hours 03/18/23 03/19/23 03/20/23 23:59 23:59 23:59 Intake Total 510 / 510 350 / 350 50 / 50 Output Total 1600 / 1600 2019 250 / 250 Balance -1090 / -1090 -1670 / -1670 -200 / -200 Medical Nutrition Assessment Dietitian: Malnutrition Criteria Met Start: 03/15/23 15:38 Freq: Status: Active Protocol: Document 03/18/23 15:44 RMA (Rec: 03/18/23 15:44 RMA [id number]) Nutrition Malnutrition Evidence of Malnutrition Exists Yes Malnutrition (moderate): Chronic Evidenced By Suboptimal Energy Intake ( Moderate),Physical Changes ( Severe) Clinical Problem Chronic Disease or Condition Related Malnutrition Etiology moderate, chronic malnutrition related to increased energy needs d/t resp. failure Signs/Symptoms as evidenced by severe muscle wasting/fat loss evident per physical exam in orbital, clavicle, acromion, and temporal areas, estimated energy from tube feeds meeting ~67% of estimated calorie needs Status Active Problem Recommendation Dietitian Recommendations/Changes NPO; Continue TF of Jevity 1.5 Dipesh via PEG to match home enteral nutrition support-- 240mL bolus 5x/day with 100mL water flush before and after each bolus to provide 1800 calories, 77 g protein, and 1912mL total fluid/day. Current weight as able. Discouraged refusal of bolus feedings. Lab / Micro Data Attestation: I reviewed the patient's lab results. 03/20/23 07:45 03/20/23 07:45 Labs: Laboratory Results - last 24 hr 03/19/23 07:50: WBC 7.2, RBC 2.89 L, Hgb 8.5 L, Hct 28.4 L, MCV 98.3 H, MCH 29.4, MCHC 29.9 L, RDW Std Deviation 54.2 H, RDW Coeff of Oz 15.0 H, Plt Count 206, MPV 12.0, Immature Gran % (Auto) 0.600, Neut % (Auto) 70.8 H, Lymph % (Auto) 20.5, [place] % (Auto) 7.0, Eos % (Auto) 0.7, Baso % (Auto) 0.4, Absolute Neuts (auto) 5.1, Absolute Lymphs (auto) 1.47, Nucleated RBC % 0, Sodium 137, Potassium 3.5, Chloride 104, Carbon Dioxide 21.0, Anion Gap 12, BUN 13, Creatinine 1.19, Estim Creat Clear Calc 48.18, Est GFR (MDRD) Af Amer 77, Est GFR (MDRD) Non-Af 63, BUN/Creatinine Ratio 10.9, Glucose 68 L, Calcium 7.3 L, B-Natriuretic Peptide 1011.1 H Micro: Microbiology 03/15/23 11:16 Blood Culture (Wb) - Port Blood Culture - Preliminary No growth in 48 hours. 03/15/23 09:40 Blood Culture (Wb) - Left Forearm Blood Culture - Preliminary No growth in 48 hours. 03/15/23 15:50 Urine, Clean Catch Urine Culture - Final Culture exhibits no growth. Radiography Diagnostic Testing: Radiology Impression Chest X-Ray 03/19/23 10:35 IMPRESSION: Worsening bilateral pleural effusions with bilateral airspace disease worse on the right side suggestive of progressive failure. Electronically Signed: Joshua Schneider MD at 14:25 EST Reading Location ID and State: [facility] / [place] , Service support , Rhythm Strip Rhythm Strip: Sinus Rhythm (w/ vent pacing) Rate: 90 Ectopy: None Physical Exam Const alert and no apparent distress Constitutional Narrative: Frail and cachectic in appearance. General Appearance: cooperative HEENT normocephalic and head/scalp atraumatic Eyes PERRL, EOMs intact bilaterally and conjunctivae normal Neck supple Neck Narrative: Stable tracheostomy site General: trachea midline Chest inspection of chest normal Resp normal respiratory effort Auscultation: diminished lung sounds Cardio regular rate and regular rhythm GI normal to inspection, nondistended, normoactive bowel sounds Inspection: GI tube present Extremity no clubbing, cyanosis or edema Skin no rashes or lesions noted Neuro CN's II-XII intact bilaterally and no focal motor deficits Psych cooperative and affect normal Charges/Coding Visit Charges Inpatient E&M: 85257 Subs Hosp L3
[2023-03-20 08:07] LABS: Absolute Lymphocyte Count 1.71 X10^3/uL (0.83-4.51); Absolute Neutrophil Count 4.9 X10^3/uL (2.0-7.7); Basophil# 0.02 X10^3/uL; Basophil% 0.3 % (0-1); Hemoglobin 8.6 g/dL (13.0-16.5); Lymphocyte # 1.71 X10^3/ul (0.83-4.51); Lymphocyte % 24.3 % (19-41); Mean Corp Hgb Conc 30.7 g/dL (32-36); Mean Corpuscular Hgb 29.3 pg (27.0-32.0); Mean Corpuscular Volume 95.2 fL (80-94); Mean Platelet Vol. 11.7 fl (6.2-12.0); Monocyte# 0.41 X10^3/uL; Monocyte% 5.8 % (0-10); NRBC Flagged by Analyzer 0 % (0-5); Neutrophil # 4.87 X10^3/uL (2.7-7.7); Platelet Count 233 K/mm3 (150-450); RBC Distribution Width CV 14.9 % (11.6-14.6); RBC Distribution Width SD 51.4 fl (35.1-43.9); Red Blood Count 2.94 M/mm3 (4.6-6.2); White Blood Count 7.1 K/mm3 (4.4-11.0)
[2023-03-20 08:34] LABS: Anion Gap 4 (5-15); BUN 21 mg/dL (7-18); BUN/Creat Ratio 14.4 RATIO (10-20); Calcium,Total 9.8 mg/dL (8.5-10.1); Chloride 101 mmol/L (98-107); Creatinine, Serum 1.46 mg/dL (0.70-1.30); EST Glomerular Filtration Rate 50 mL/min (>60); Est Glom Filt Rate - Afr Amer 60 mL/min (>60); Estimated Creatinine Clearance 39.27 ml/min; Glucose 95 mg/dL (74-106); Potassium 3.1 mmol/L (3.5-5.1); Sodium Level 139 mmol/L (136-145)
[2023-03-20] MEDS: Amiodarone 200 MG Tablet GT ×2 (09:27→23:29)
[2023-03-20] MEDS: predniSONE 20 MG Tablet 40 MG GT (09:27)
[2023-03-20] MEDS: Midodrine HCl 5 MG Tablet 15 MG GT ×2 (09:27→17:53)
[2023-03-20] MEDS: Menthol/Lanolin/Calamine/Znox 113 GM Tube 1 APPLIC TOPICAL ×2 (09:28→21:50)
[2023-03-20] MEDS: APIXABAN 2.5 MG TABLET (WCH) GT ×2 (09:28→21:50)
[2023-03-20] MEDS: Ferrous Sulfate 300 MG/5 ML UDC GT (09:28)
[2023-03-20] MEDS: 0.9% Saline Lock 10 ML Syringe IV ×2 (09:32→17:53)
[2023-03-20] MEDS: Furosemide 40 MG/4 ML Vial IV ×2 (09:33→17:54)
[2023-03-20] MEDS: Jevity 1.5. 1,000 ML Bottle 240 ML GT ×4 (09:34→21:51)
[2023-03-20] MEDS: Gabapentin 300 MG Capsule GT ×2 (09:37→21:49)
--- NOTE | 2023-03-20 12:27 | PN_ITS ---
Subjective Subjective Patient seen and examined. He said he is feeling better today. His breathing has improved. He is down to 8 L of oxygen via the trach collar with 40% FiO2. Review of systems otherwise negative. He has remained hemodynamically stable. Objective Data Objective Data Vital Signs: Vital Signs Temp Pulse Resp BP Pulse Ox O2 Del Method O2 Flow Rate 98.5 F 107 H 17 115/80 94 Trach Collar 8 03/20/23 09:21 03/20/23 09:21 03/20/23 09:21 03/20/23 09:21 03/20/23 09:21 03/20/23 09:30 03/20/23 09:30 FiO2 40 03/20/23 09:30 Oxygen Flow Rate (L/min) 8 Oxygen Delivery Method Trach Collar Weight: 140 lb 0.002 oz Body Mass Index (BMI) 19.8 Intake & Output: Intake and Output for Last 24 Hours 03/18/23 03/19/23 03/20/23 23:59 23:59 23:59 Intake Total 510 / 510 350 / 350 100 / 100 Output Total 1600 / 1600 2019 250 / 250 Balance -1090 / -1090 -1670 / -1670 -150 / -150 Medical Nutrition Assessment Dietitian: Malnutrition Criteria Met Start: 03/15/23 15:38 Freq: Status: Active Protocol: Document 03/18/23 15:44 RMA (Rec: 03/18/23 15:44 RMA [id number]) Nutrition Malnutrition Evidence of Malnutrition Exists Yes Malnutrition (moderate): Chronic Evidenced By Suboptimal Energy Intake ( Moderate),Physical Changes ( Severe) Clinical Problem Chronic Disease or Condition Related Malnutrition Etiology moderate, chronic malnutrition related to increased energy needs d/t resp. failure Signs/Symptoms as evidenced by severe muscle wasting/fat loss evident per physical exam in orbital, clavicle, acromion, and temporal areas, estimated energy from tube feeds meeting ~67% of estimated calorie needs Status Active Problem Recommendation Dietitian Recommendations/Changes NPO; Continue TF of Jevity 1.5 Dipesh via PEG to match home enteral nutrition support-- 240mL bolus 5x/day with 100mL water flush before and after each bolus to provide 1800 calories, 77 g protein, and 1912mL total fluid/day. Current weight as able. Discouraged refusal of bolus feedings. Lab / Micro Data 03/20/23 07:45 03/20/23 07:45 Labs: Laboratory Results - last 24 hr 03/20/23 07:45: WBC 7.1, RBC 2.94 L, Hgb 8.6 L, Hct 28.0 L, MCV 95.2 H, MCH 29.3, MCHC 30.7 L, RDW Std Deviation 51.4 H, RDW Coeff of Oz 14.9 H, Plt Count 233, MPV 11.7, Immature Gran % (Auto) 0.600, Neut % (Auto) 69.0, Lymph % (Auto) 24.3, [place] % (Auto) 5.8, Eos % (Auto) 0.0, Baso % (Auto) 0.3, Absolute Neuts (auto) 4.9, Absolute Lymphs (auto) 1.71, Nucleated RBC % 0, Sodium 139, Potassium 3.1 L, Chloride 101, Carbon Dioxide 34.0 H, Anion Gap 4 L, BUN 21 H, Creatinine 1.46 H, Estim Creat Clear Calc 39.27, Est GFR (MDRD) Af Amer 60, Est GFR (MDRD) Non-Af 50 L, BUN/Creatinine Ratio 14.4, Glucose 95, Calcium 9.8 Micro: Microbiology 03/15/23 11:16 Blood Culture (Wb) - Port Blood Culture - Final No growth in 5 days. 03/15/23 09:40 Blood Culture (Wb) - Left Forearm Blood Culture - Final No growth in 5 days. 03/15/23 15:50 Urine, Clean Catch Urine Culture - Final Culture exhibits no growth. Radiography Diagnostic Testing: Radiology Impression Venous Doppler Study 03/19/23 10:28 Interpretation Summary Deep veins of the left upper extremity are patent and compressible segmentally. There is no evidence of deep vein thrombosis. Superficial veins of the left upper extremity are patent and compressible segmentally. There is no evidence of superficial vein thrombosis. Ordering Physician: Gabriella Cisse Referring Physician: Noe Aquino Performed By: Wade Pichardo, RVT ??? Chest X-Ray 03/19/23 10:35 IMPRESSION: Worsening bilateral pleural effusions with bilateral airspace disease worse on the right side suggestive of progressive failure. Electronically Signed: Joshua Schneider MD at 14:25 EST , Rhythm Strip Rhythm Strip: Sinus Rhythm (w/ vent pacing) Rate: 90 Ectopy: None Physical Exam Const alert, oriented x3 and no apparent distress General Appearance: cooperative, well kempt and well developed Orientation / Consciousness: awake, oriented to person, oriented to place and oriented to time HEENT normocephalic and head/scalp atraumatic Eyes PERRL, EOMs intact bilaterally and conjunctivae normal Neck no lymphadenopathy, supple and no JVD Neck Narrative: Tracheostomy is present Lymph Lymphatic: no lymphadenopathy noted and no lymphedema noted Resp normal respiratory effort, no retractions and no use of accessory muscles Resp Narrative: Moderately diminished breath sounds bibasilarly. Few crackles. On 8 L at FiO2 of 40% of oxygen via trach collar. Auscultation: Negative for rales, rhonchi or wheezes Cardio regular rate, regular rhythm, S1 normal heart sound, S2 normal heart sound, no murmurs, no rub and no gallops GI normal to inspection, nondistended, normoactive bowel sounds, soft to palpation, non-tender and non-distended GI Narrative: Has PEG tube in place. Extremity normal capillary refill, no clubbing, cyanosis or edema and no calf tenderness General Extremity: no tenderness to palpation of joints or extremities Skin no rashes or lesions noted General Skin Exam: no breakdown Neuro oriented x3, CN's II-XII intact bilaterally, moves all extremities, no focal motor deficits, no sensory deficits noted and deep tendon reflexes 2+ bilate rally Sensorium / Orientation: awake and alert Speech: speech normal Motor Exam: strength 5/5 throughout and general weakness Psych thought process normal, cooperative and affect normal Appearance: appropriate Assessment & Plan Assessment/Plan (1) Aspiration pneumonia: PLAN: Plan #Sepsis due to aspiration pneumonia * on IV zosyn.now on 8L of oxygen ith 40% FiO2 * being diuresed with IV lasix o/a of elevated BNP. Oxygen requirements are improving. * breathing treatment with bronchodilators * titrate oxygen to maintain sats >90% * breathing treatment with bronchodilators * Blood cultures showed no growth after 48 hours. urine for strep and legionella also negative * on prednisone also * will complete a 5 day course of antibiotics * #Acute on Chronic respiratory failure due to aspiration pneumonia * Usually on 2 to 4 L of oxygen at home due to COPD. * Now on 12L of oxygen via trach collar at 50% FiO2. * Breathing treatments with bronchodilators. * pulmonology consulted * being diuresed with IV lasix as he is in cumulative positive balance by 7L * 2D echo from December 2022 showed EF of 35-40%, with mildly dilated LV * #Hypokalemia: Potassium is 3.1. Replace and trend. #Elevated creatinine: Creatinine was 1.19 yesterday and is up to 1.46 today. Likely due to IV Lasix. Will monitor. Does not meet criteria for LEV. #Dehydration and hypotension; resolved. On midodrine chronically for chronic hypotension. #Afib: on amiodarone and eliquis. 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 Has PEG tube in place and on tube feeds with Jevity. DVT prophylaxis: on eliquis Total time spent on evaluation and management of patient, reviewing chart and specialist notes, discussing plan with patient and his , discussion with nursing and ancillary staff as well as documentation: 40 mins Charges/Coding Visit Charges Inpatient E&M: 43793 Subs Hosp L2
[2023-03-20] MEDS: Potassium Chloride Oral Soln 20 MEQ/15 ML UDC 40 MEQ GT (13:33)
--- NOTE | 2023-03-20 22:22 | PCM.HOSP.N ---
Hospitalist Note Patient with PAF with RVR rate 140s, will dose with cardizem 10 mg x 1 now.
[2023-03-20] MEDS: 0.9 % NaCl (Sterile) Posiflush 10 mL IV (22:31)
[2023-03-20] MEDS: dilTIAZem 25 MG/5 ML Vial 10 MG IV BOLUS (22:31)
[2023-03-21] VITALS (15 sets, daily range): BP systolic 85–140; BP diastolic 58–89; PULSE 81–139; RESP 15–23; TEMP 36.5–36.7; O2SAT 93–100
--- NOTE | 2023-03-21 00:34 | NURSING ---
Notified Dr alcaraz of heart rate in 130's after cardizem and amiodarone doses earlier. States will order more cardizem iv x1.
[2023-03-21] MEDS: Piperacil/Tazobactam 3.375 GM in 0.9% Normal Saline (50mL MB+) 50 ML IV ×3 (05:46→20:51)
[2023-03-21] MEDS: Levothyroxine 50 MCG Tablet GT (05:49)
[2023-03-21 06:35] LABS: Absolute Lymphocyte Count 2.03 X10^3/uL (0.83-4.51); Absolute Neutrophil Count 4.9 X10^3/uL (2.0-7.7); Basophil# 0.01 X10^3/uL; Basophil% 0.1 % (0-1); Hematocrit 29.7 % (40-54); Hemoglobin 8.9 g/dL (13.0-16.5); Lymphocyte # 2.03 X10^3/ul (0.83-4.51); Lymphocyte % 27.1 % (19-41); Mean Corpuscular Hgb 28.9 pg (27.0-32.0); Mean Corpuscular Volume 96.4 fL (80-94); Mean Platelet Vol. 11.9 fl (6.2-12.0); Monocyte# 0.51 X10^3/uL; Monocyte% 6.8 % (0-10); NRBC Flagged by Analyzer 0.3 % (0-5); Neutrophil # 4.92 X10^3/uL (2.7-7.7); Neutrophil % 65.6 % (47-70); Platelet Count 297 K/mm3 (150-450); RBC Distribution Width CV 15.3 % (11.6-14.6); Red Blood Count 3.08 M/mm3 (4.6-6.2); White Blood Count 7.5 K/mm3 (4.4-11.0)
[2023-03-21 07:20] LABS: Anion Gap 8 (5-15); BUN 32 mg/dL (7-18); BUN/Creat Ratio 19.5 RATIO (10-20); Calcium,Total 9.2 mg/dL (8.5-10.1); Chloride 102 mmol/L (98-107); Creatinine, Serum 1.64 mg/dL (0.70-1.30); EST Glomerular Filtration Rate 44 mL/min (>60); Est Glom Filt Rate - Afr Amer 53 mL/min (>60); Estimated Creatinine Clearance 34.96 ml/min; Glucose 102 mg/dL (74-106); Potassium 3.7 mmol/L (3.5-5.1); Sodium Level 144 mmol/L (136-145)
[2023-03-21] MEDS: predniSONE 20 MG Tablet 40 MG GT (09:10)
[2023-03-21] MEDS: Amiodarone 200 MG Tablet GT (09:10)
[2023-03-21] MEDS: APIXABAN 2.5 MG TABLET (WCH) GT ×2 (09:10→20:50)
[2023-03-21] MEDS: Midodrine HCl 5 MG Tablet 15 MG GT ×2 (09:10→12:46)
[2023-03-21] MEDS: Ferrous Sulfate 300 MG/5 ML UDC GT (09:11)
[2023-03-21] MEDS: HYDROcodone Bitartrate/Apap 5/325 Tablet PO ×2 (09:11→18:01)
[2023-03-21] MEDS: Jevity 1.5. 1,000 ML Bottle 240 ML GT ×3 (09:12→18:02)
[2023-03-21] MEDS: Gabapentin 300 MG Capsule GT ×2 (09:15→20:50)
[2023-03-21] MEDS: Menthol/Lanolin/Calamine/Znox 113 GM Tube 1 APPLIC TOPICAL ×2 (09:17→20:50)
[2023-03-21] MEDS: 0.9% Normal Saline (250mL Bag) 250 ML 15 ML IV (10:00)
--- NOTE | 2023-03-21 10:29 | PN.CC_ITS ---
Assessment & Plan Assessment/Plan (1) Acute and chronic respiratory failure with hypoxia: PLAN: Plan RECOMMENDATIONS: 1. Continue antimicrobials to complete 7 days of therapy. 2. Continue scheduled bronchodilator therapy. 3. Continue prednisone 40 mg daily via G-tube x 5 days. 4. Continue attempts at diuresis as tolerated by hemodynamics and renal function. 5. Wean trach collar supplemental O2 to maintain saturations at or above 90%. 6. Physical therapy to work with the patient. IMPRESSIONS: 1. Acute on chronic hypoxemic respiratory failure The patient initially presented to the hospital once again in the setting of an acute aspiration event, likely leading to the development of pneumonia and an exacerbation of his obstructive lung disease. The patient has been maintained on aerosol treatments and antimicrobials. The patient will be continued on prednisone via his G-tube for 5 days, as ordered. The patient remains overall net positive for the hospitalization from a volume perspective. Therefore, he will be continued on scheduled diuretics as tolerated by hemodynamics and renal function. In the interim, his trach collar supplemental O2 will be weaned to maintain saturations at or above 90%. Continue nutritional support via G-tube. 2. 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 Continue supportive care as noted above. Physical therapy to work with the patient. CODE STATUS: DNR CCA This note was generated with [employer] dictation software. It may contain incorrect words, spelling, and punctuation that were not noted in checking the note before signing. Subjective Subjective The patient was seen and examined at the bedside this morning. Events from the last 24 hours have been reviewed. The patient is currently afebrile, hemodyna mically stable and maintaining appropriate oxygen saturations on 6 L/min via trach collar. Respiratory status is slowly improving each day. The patient did experience some issues overnight with atrial fibrillation, which was medically managed by the hospitalist with Bob. Objective Data Objective Data The patient's most recent lab work, culture data and imaging studies have all been personally reviewed. Echocardiogram from December 2022 demonstrated a mildly dilated LV with an ejection fraction of 35%. Blood and urine cultures have not demonstrated any growth to date. Vital Signs: Vital Signs Temp Pulse Resp BP Pulse Ox O2 Del Method O2 Flow Rate 97.7 F L 139 H 17 88/70 L 95 Trach Collar 7 03/21/23 09:00 03/21/23 09:00 03/21/23 09:00 03/21/23 09:00 03/21/23 09:00 03/21/23 09:00 03/21/23 09:00 FiO2 320 03/21/23 09:00 Oxygen Flow Rate (L/min) 7 Oxygen Delivery Method Leela Cintron Weight: 140 lb 0.002 oz Body Mass Index (BMI) 19.8 Intake & Output: Intake and Output for Last 24 Hours 03/19/23 03/20/23 03/21/23 23:59 23:59 23:59 Intake Total 350 / 350 660 / 1050 930 / 930 Output Total 2019 2175 / 2425 550 / 550 Balance -1670 / -1670 -1515 / -1375 380 / 380 Medical Nutrition Assessment Dietitian: Malnutrition Criteria Met Start: 03/15/23 15:38 Freq: Status: Active Protocol: Document 03/20/23 15:05 (Rec: 03/20/23 15:06 [id number]) Nutrition Malnutrition Evidence of Malnutrition Exists Yes Malnutrition (moderate): Chronic Evidenced By Suboptimal Energy Intake ( Moderate),Physical Changes ( Severe) Clinical Problem Chronic Disease or Condition Related Malnutrition Etiology moderate, chronic malnutrition related to increased energy needs d/t resp. failure Signs/Symptoms as evidenced by severe muscle wasting/fat loss evident per physical exam in orbital, clavicle, acromion, and temporal areas, estimated energy from tube feeds meeting ~67% of estimated calorie needs Status Active Problem Recommendation Dietitian Recommendations/Changes NPO; Continue TF of Jevity 1.5 Dipesh via PEG to match home enteral nutrition support-- 240mL bolus 5x/day with 100mL water flush before and after each bolus to provide 1800 calories, 77 g protein, and 1912mL total fluid/day. Current weight as able. Lab / Micro Data Attestation: I reviewed the patient's lab results. 03/21/23 06:10 03/21/23 06:10 Labs: Laboratory Results - last 24 hr 03/21/23 06:10: WBC 7.5, RBC 3.08 L, Hgb 8.9 L, Hct 29.7 L, MCV 96.4 H, MCH 28.9, MCHC 30.0 L, RDW Std Deviation 54.0 H, RDW Coeff of Oz 15.3 H, Plt Count 297, MPV 11.9, Immature Gran % (Auto) 0.400, Neut % (Auto) 65.6, Lymph % (Auto) 27.1, [place] % (Auto) 6.8, Eos % (Auto) 0.0, Baso % (Auto) 0.1, Absolute Neuts (auto) 4.9, Absolute Lymphs (auto) 2.03, Nucleated RBC % 0.3, Sodium 144, Potassium 3.7, Chloride 102, Carbon Dioxide 34.0 H, Anion Gap 8, BUN 32 H, Creatinine 1.64 H, Estim Creat Clear Calc 34.96, Est GFR (MDRD) Af Amer 53 L, Est GFR (MDRD) Non-Af 44 L, BUN/Creatinine Ratio 19.5, Glucose 102, Calcium 9.2 Micro: Microbiology 03/15/23 11:16 Blood Culture (Wb) - Port Blood Culture - Final No growth in 5 days. 03/15/23 09:40 Blood Culture (Wb) - Left Forearm Blood Culture - Final No growth in 5 days. 03/15/23 15:50 Urine, Clean Catch Urine Culture - Final Culture exhibits no growth. Radiography Diagnostic Testing: Radiology Impression Chest X-Ray 03/19/23 10:35 IMPRESSION: Worsening bilateral pleural effusions with bilateral airspace disease worse on the right side suggestive of progressive failure. Electronically Signed: Joshua Schneider MD at 14:25 EST Reading Location ID and State: [address] [place] [address] , Service support , Rhythm Strip Rhythm Strip: Sinus Rhythm (w/ vent pacing) Rate: 90 Ectopy: None Physical Exam Const alert and no apparent distress Constitutional Narrative: Frail and cachectic in appearance. General Appearance: cooperative HEENT normocephalic and head/scalp atraumatic Eyes PERRL, EOMs intact bilaterally and conjunctivae normal Neck supple Neck Narrative: Stable tracheostomy site General: trachea midline Chest inspection of chest normal Resp normal respiratory effort Auscultation: diminished lung sounds Cardio regular rate and regular rhythm GI normal to inspection, nondistended, normoactive bowel sounds Inspection: GI tube present Extremity no clubbing, cyanosis or edema Skin no rashes or lesions noted Neuro CN's II-XII intact bilaterally and no focal motor deficits Psych cooperative and affect normal Charges/Coding Visit Charges Inpatient E&M: 36989 Subs Hosp L2
--- NOTE | 2023-03-21 13:59 | PN_ITS ---
Subjective Subjective Patient seen and examined. He had no active complaints. He went into afib with RVR overnight, and was given a dose of amiodarone. Afib with RVR resolved. He is down to 7L of oxygen at FiO2 of 30%. Review of systems is otherwise negative. Objective Data Objective Data Vital Signs: Vital Signs Temp Pulse Resp BP Pulse Ox O2 Del Method O2 Flow Rate 97.8 F 85 17 114/75 94 Trach Collar 7 03/21/23 13:00 03/21/23 13:00 03/21/23 13:00 03/21/23 13:00 03/21/23 13:00 03/21/23 13:00 03/21/23 13:00 FiO2 30 03/21/23 13:00 Oxygen Flow Rate (L/min) 7 Oxygen Delivery Method Trach Collar Weight: 140 lb 0.002 oz Body Mass Index (BMI) 19.8 Intake & Output: Intake and Output for Last 24 Hours 03/19/23 03/20/23 03/21/23 23:59 23:59 23:59 Intake Total 350 / 350 660 / 1050 980 / 980 Output Total 2019 2175 / 2425 550 / 550 Balance -1670 / -1670 -1515 / -1375 430 / 430 Medical Nutrition Assessment Dietitian: Malnutrition Criteria Met Start: 03/15/23 15:38 Freq: Status: Active Protocol: Document 03/20/23 15:05 (Rec: 03/20/23 15:06 [id number]) Nutrition Malnutrition Evidence of Malnutrition Exists Yes Malnutrition (moderate): Chronic Evidenced By Suboptimal Energy Intake ( Moderate),Physical Changes ( Severe) Clinical Problem Chronic Disease or Condition Related Malnutrition Etiology moderate, chronic malnutrition related to increased energy needs d/t resp. failure Signs/Symptoms as evidenced by severe muscle wasting/fat loss evident per physical exam in orbital, clavicle, acromion, and temporal areas, estimated energy from tube feeds meeting ~67% of estimated calorie needs Status Active Problem Recommendation Dietitian Recommendations/Changes NPO; Continue TF of Jevity 1.5 Dipesh via PEG to match home enteral nutrition support-- 240mL bolus 5x/day with 100mL water flush before and after each bolus to provide 1800 calories, 77 g protein, and 1912mL total fluid/day. Current weight as able. Lab / Micro Data 03/21/23 06:10 03/21/23 06:10 Labs: Laboratory Results - last 24 hr 03/21/23 06:10: WBC 7.5, RBC 3.08 L, Hgb 8.9 L, Hct 29.7 L, MCV 96.4 H, MCH 28.9, MCHC 30.0 L, RDW Std Deviation 54.0 H, RDW Coeff of Oz 15.3 H, Plt Count 297, MPV 11.9, Immature Gran % (Auto) 0.400, Neut % (Auto) 65.6, Lymph % (Auto) 27.1, [place] % (Auto) 6.8, Eos % (Auto) 0.0, Baso % (Auto) 0.1, Absolute Neuts (auto) 4.9, Absolute Lymphs (auto) 2.03, Nucleated RBC % 0.3, Sodium 144, Potassium 3.7, Chloride 102, Carbon Dioxide 34.0 H, Anion Gap 8, BUN 32 H, Creatinine 1.64 H, Estim Creat Clear Calc 34.96, Est GFR (MDRD) Af Amer 53 L, Est GFR (MDRD) Non-Af 44 L, BUN/Creatinine Ratio 19.5, Glucose 102, Calcium 9.2 Micro: Microbiology 03/15/23 11:16 Blood Culture (Wb) - Port Blood Culture - Final No growth in 5 days. 03/15/23 09:40 Blood Culture (Wb) - Left Forearm Blood Culture - Final No growth in 5 days. 03/15/23 15:50 Urine, Clean Catch Urine Culture - Final Culture exhibits no growth. Rhythm Strip Rhythm Strip: Sinus Rhythm (w/ vent pacing) Rate: 90 Ectopy: None Physical Exam Const alert, oriented x3 and no apparent distress General Appearance: cooperative, well kempt and well developed Orientation / Consciousness: awake, oriented to person, oriented to place and oriented to time HEENT normocephalic and head/scalp atraumatic Eyes PERRL, EOMs intact bilaterally and conjunctivae normal Neck no lymphadenopathy, supple and no JVD Neck Narrative: Tracheostomy is present Lymph Lymphatic: no lymphadenopathy noted and no lymphedema noted Resp Resp Narrative: Moderately diminished breath sounds bibasilarly. Few crackles. On 7 L at FiO2 of 30% of oxygen via trach collar. Auscultation: Negative for rales, rhonchi or wheezes Cardio regular rate, regular rhythm, S1 normal heart sound, S2 normal heart sound, no murmurs, no rub and no gallops GI normal to inspection, nondistended, normoactive bowel sounds, soft to palpation, non-tender and non-distended GI Narrative: Has PEG tube in place. Extremity normal capillary refill, no clubbing, cyanosis or edema and no calf tenderness General Extremity: no tenderness to palpation of joints or extremities Skin no rashes or lesions noted General Skin Exam: no breakdown Neuro oriented x3, CN's II-XII intact bilaterally, moves all extremities, no focal motor deficits, no sensory deficits noted and deep tendon reflexes 2+ bilaterally Sensorium / Orientation: awake and alert Speech: speech normal Motor Exam: strength 5/5 throughout and general weakness Psych thought process normal, cooperative and affect normal Appearance: appropriate Assessment & Plan Assessment/Plan (1) Aspiration pneumonia: PLAN: Plan #Sepsis due to aspiration pneumonia * on IV zosyn.now on 7L of oxygen with 30% FiO2 * being diuresed with IV lasix o/a of elevated BNP. Oxygen requirements are improving. * breathing treatment with bronchodilators * titrate oxygen to maintain sats >90% * breathing treatment with bronchodilators * Blood cultures showed no growth after 48 hours. urine for strep and legionella also negative * on prednisone also * to complete a 5 day course of antibiotics * in cumulative postive balance by 4.439L * #Acute on Chronic respiratory failure due to aspiration pneumonia * Usually on 2 to 4 L of oxygen at home due to COPD. * down to 7L at 30% FiO2 * Breathing treatments with bronchodilators. * pulmonology on board * has been diuresed with IV lasix * 2D echo from December 2022 showed EF of 35-40%, with mildly dilated LV * #Hypokalemia: resolved. Potassium is 3.47 #LEV: Cr is 1.64 today. today. Likely due to IV Lasix. Baseline creatinine is around 1.19. Should improve now Lasix has been discontinued. #Dehydration and hypotension; resolved. On midodrine chronically for chronic hypotension. #Afib: * on amiodarone and eliquis. Went into A-fib with RVR overnight but this stopped after he was given a dose of amiodarone. Breathing treatments changed to as needed as he suspects the scheduled breathing treatments may have contributed to this. 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 Has PEG tube in place and on tube feeds with Jevity. DVT prophylaxis: on eliquis Total time spent on evaluation and management of patient, reviewing chart and specialist notes, discussing plan with patient and his , discussion with nursing and ancillary staff as well as documentation: 48 mins Disposition: Anticipate discharge within the next 24 to 48 hours. Charges/Coding Visit Charges Inpatient E&M: 73682 Subs Hosp L2
--- NOTE | 2023-03-21 15:01 | CASEMGMT ---
LORRIE RIVAS received order from [employer] for palliative consult. Screening tool completed and palliative consult sent to [facility]. LORRIE RIVAS updated . Discussed plan for discharge for tomorrow. LORRIE RIVAS updated [facility] regarding discharge tomorrow with resumption of HHC. CM will continue to follow this patient and plan for a safe discharge.
[2023-03-21] MEDS: Ipratropium/Albuterol Sulfate 3 ML AMPUL.NEB INHALATION (19:47)
[2023-03-21] MEDS: Budesonide Respules 0.5 MG/2 ML AMPUL.NEB. INHALATION (19:47)
[2023-03-22] VITALS (9 sets, daily range): BP systolic 115–158; BP diastolic 70–96; PULSE 68–89; RESP 14–24; TEMP 36.4–36.7; O2SAT 93–98
[2023-03-22] MEDS: Levothyroxine 50 MCG Tablet GT (05:17)
[2023-03-22] MEDS: Piperacil/Tazobactam 3.375 GM in 0.9% Normal Saline (50mL MB+) 50 ML IV (05:57)
[2023-03-22] MEDS: Jevity 1.5. 1,000 ML Bottle 240 ML GT ×3 (06:36→15:41)
[2023-03-22] MEDS: Budesonide Respules 0.5 MG/2 ML AMPUL.NEB. INHALATION ×2 (07:25→19:41)
[2023-03-22 07:46] LABS: Absolute Lymphocyte Count 1.98 X10^3/uL (0.83-4.51); Absolute Neutrophil Count 4.3 X10^3/uL (2.0-7.7); Basophil# 0.01 X10^3/uL; Basophil% 0.2 % (0-1); Hematocrit 32.1 % (40-54); Hemoglobin 9.6 g/dL (13.0-16.5); Lymphocyte # 1.98 X10^3/ul (0.83-4.51); Lymphocyte % 29.8 % (19-41); Mean Corp Hgb Conc 29.9 g/dL (32-36); Mean Corpuscular Hgb 29.4 pg (27.0-32.0); Mean Corpuscular Volume 98.2 fL (80-94); Mean Platelet Vol. 11.7 fl (6.2-12.0); Monocyte# 0.34 X10^3/uL; Monocyte% 5.1 % (0-10); NRBC Flagged by Analyzer 0 % (0-5); Neutrophil # 4.29 X10^3/uL (2.7-7.7); Neutrophil % 64.4 % (47-70); Platelet Count 323 K/mm3 (150-450); RBC Distribution Width CV 15.4 % (11.6-14.6); RBC Distribution Width SD 55.1 fl (35.1-43.9); Red Blood Count 3.27 M/mm3 (4.6-6.2); White Blood Count 6.7 K/mm3 (4.4-11.0)
[2023-03-22 08:06] LABS: Anion Gap 4 (5-15); BUN 42 mg/dL (7-18); BUN/Creat Ratio 23.2 RATIO (10-20); Calcium,Total 10.3 mg/dL (8.5-10.1); Chloride 102 mmol/L (98-107); Creatinine, Serum 1.81 mg/dL (0.70-1.30); EST Glomerular Filtration Rate 39 mL/min (>60); Est Glom Filt Rate - Afr Amer 47 mL/min (>60); Estimated Creatinine Clearance 31.67 ml/min; Glucose 117 mg/dL (74-106); Potassium 3.5 mmol/L (3.5-5.1); Sodium Level 141 mmol/L (136-145)
[2023-03-22] MEDS: Ferrous Sulfate 300 MG/5 ML UDC GT (08:13)
[2023-03-22] MEDS: predniSONE 20 MG Tablet 40 MG GT (08:14)
[2023-03-22] MEDS: HYDROcodone Bitartrate/Apap 5/325 Tablet PO ×2 (08:23→20:58)
[2023-03-22] MEDS: Midodrine HCl 5 MG Tablet 15 MG GT ×3 (08:25→17:59)
--- NOTE | 2023-03-22 10:13 | CASEMGMT ---
Per physician patient stated he wants to go to TCU as he cannot walk far. SW made a referral to [facility] TCU and they are unable to accept. SW will talk with patient and his . Leann JUAREZ
[2023-03-22] MEDS: Amiodarone 200 MG Tablet GT (10:42)
[2023-03-22] MEDS: Gabapentin 300 MG Capsule GT ×2 (10:42→20:58)
[2023-03-22] MEDS: APIXABAN 2.5 MG TABLET (WCH) GT ×2 (10:42→20:58)
--- NOTE | 2023-03-22 10:51 | PN_ITS ---
Subjective Subjective Patient seen and examined. He has no active complaints and had an uneventful night. He is on 7 L of oxygen which appears to be around his baseline. Review of systems otherwise negative. He has remained hemodynamically stable. Objective Data Objective Data Vital Signs: Vital Signs Temp Pulse Resp BP Pulse Ox O2 Del Method O2 Flow Rate 97.6 F L 89 20 H 115/70 97 Trach Collar 7 03/22/23 07:44 03/22/23 07:44 03/22/23 07:44 03/22/23 07:44 03/22/23 07:44 03/22/23 09:38 03/22/23 07:44 FiO2 30 03/22/23 01:10 Oxygen Flow Rate (L/min) 7 Oxygen Delivery Method Trach Collar Weight: 140 lb 0.002 oz Body Mass Index (BMI) 19.8 Intake & Output: Intake and Output for Last 24 Hours 03/20/23 03/21/23 03/22/23 23:59 23:59 23:59 Intake Total 660 / 1050 1193.75 / 1193.75 319.25 / 319.25 Output Total 2175 / 2425 1100 / 1100 Balance -1515 / -1375 93.75 / 93.75 319.25 / 319.25 Medical Nutrition Assessment Dietitian: Malnutrition Criteria Met Start: 03/15/23 15:38 Freq: Status: Active Protocol: Document 03/20/23 15:05 (Rec: 03/20/23 15:06 [id number]) Nutrition Malnutrition Evidence of Malnutrition Exists Yes Malnutrition (moderate): Chronic Evidenced By Suboptimal Energy Intake ( Moderate),Physical Changes ( Severe) Clinical Problem Chronic Disease or Condition Related Malnutrition Etiology moderate, chronic malnutrition related to increased energy needs d/t resp. failure Signs/Symptoms as evidenced by severe muscle wasting/fat loss evident per physical exam in orbital, clavicle, acromion, and temporal areas, estimated energy from tube feeds meeting ~67% of estimated calorie needs Status Active Problem Recommendation Dietitian Recommendations/Changes NPO; Continue TF of Jevity 1.5 Dipesh via PEG to match home enteral nutrition support-- 240mL bolus 5x/day with 100mL water flush before and after each bolus to provide 1800 calories, 77 g protein, and 1912mL total fluid/day. Current weight as able. Lab / Micro Data 03/22/23 07:05 03/22/23 07:05 Labs: Laboratory Results - last 24 hr 03/22/23 07:05: WBC 6.7, RBC 3.27 L, Hgb 9.6 L, Hct 32.1 L, MCV 98.2 H, MCH 29.4, MCHC 29.9 L, RDW Std Deviation 55.1 H, RDW Coeff of Oz 15.4 H, Plt Count 323, MPV 11.7, Immature Gran % (Auto) 0.500, Neut % (Auto) 64.4, Lymph % (Auto) 29.8, [place] % (Auto) 5.1, Eos % (Auto) 0.0, Baso % (Auto) 0.2, Absolute Neuts (auto) 4.3, Absolute Lymphs (auto) 1.98, Nucleated RBC % 0, Sodium 141, Potassium 3.5, Chloride 102, Carbon Dioxide 35.0 H, Anion Gap 4 L, BUN 42 H, Creatinine 1.81 H, Estim Creat Clear Calc 31.67, Est GFR (MDRD) Af Amer 47 L, Est GFR (MDRD) Non-Af 39 L, BUN/Creatinine Ratio 23.2 H, Glucose 117 H, Calcium 10.3 H Micro: Microbiology 03/15/23 11:16 Blood Culture (Wb) - Port Blood Culture - Final No growth in 5 days. 03/15/23 09:40 Blood Culture (Wb) - Left Forearm Blood Culture - Final No growth in 5 days. 03/15/23 15:50 Urine, Clean Catch Urine Culture - Final Culture exhibits no growth. Rhythm Strip Rhythm Strip: Sinus Rhythm (w/ vent pacing) Rate: 90 Ectopy: None Physical Exam Const alert, oriented x3 and no apparent distress General Appearance: cooperative, well kempt and well developed Orientation / Consciousness: awake, oriented to person, oriented to place and oriented to time HEENT normocephalic and head/scalp atraumatic Eyes PERRL, EOMs intact bilaterally and conjunctivae normal Neck no lymphadenopathy, supple and no JVD Neck Narrative: Tracheostomy is present Lymph Lymphatic: no lymphadenopathy noted and no lymphedema noted Resp normal respiratory effort, no retractions and no use of accessory muscles Resp Narrative: Moderately diminished breath sounds bibasilarly. Few crackles. remains on 7 L at FiO2 of 30% of oxygen via trach collar. Auscultation: Negative for rales, rhonchi or wheezes Cardio regular rate, regular rhythm, S1 normal heart sound, S2 normal heart sound, no murmurs, no rub and no gallops GI normal to inspection, nondistended, normoactive bowel sounds, soft to palpation, non-tender and non-distended GI Narrative: Has PEG tube in place. Extremity normal capillary refill, no clubbing, cyanosis or edema and no calf tenderness General Extremity: no tenderness to palpation of joints or extremities Skin no rashes or lesions noted General Skin Exam: no breakdown Neuro oriented x3, CN's II-XII intact bilaterally, moves all extremities, no focal motor deficits, no sensory deficits noted and deep tendon reflexes 2+ bilateral ly Sensorium / Orientation: awake and alert Speech: speech normal Motor Exam: strength 5/5 throughout and general weakness Psych thought process normal, cooperative and affect normal Appearance: appropriate Assessment & Plan Assessment/Plan (1) Aspiration pneumonia: PLAN: Plan #Sepsis due to aspiration pneumonia * on IV zosyn.still on 7L of oxygen with 30% FiO2 * today is day 7 on zosyn. Will dc * being diuresed with IV lasix o/a of elevated BNP. Oxygen requirements are improving. * breathing treatment with bronchodilators * titrate oxygen to maintain sats >90% * breathing treatment with bronchodilators * Blood cultures showed no growth after 48 hours. urine for strep and legionella also negative * on prednisone also * #Acute on Chronic respiratory failure due to aspiration pneumonia * Usually on 2 to 4 L of oxygen at home due to COPD. * down to 7L at 30% FiO2. Has remained at 7L via trach at 30% FiO2, so this appears to be his baseline * Breathing treatments with bronchodilators. * pulmonology on board * has been diuresed with IV lasix; now off lasix * 2D echo from December 2022 showed EF of 35-40%, with mildly dilated LV * #Hypokalemia: resolved. P #LEV: Cr is up to 1.81 today. today. Likely due to IV Lasix. Baseline creatinine is around 1.19. trended up slightly from yesterday. Will monitor for now. #Dehydration and hypotension; resolved. On midodrine chronically for chronic hypotension. #Afib: * on amiodarone and eliquis. 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 Has PEG tube in place and on tube feeds with Jevity. #DVT prophylaxis: on eliquis Total time spent on evaluation and management of patient, reviewing chart and specialist notes, discussing plan with patient and his , discussion with nursing and ancillary staff as well as documentation: 37 mins Disposition: Patient will CC wants to go to TCU. Case management informed. Plan is for placement pending pre-CERT. Charges/Coding Visit Charges Inpatient E&M: 21275 Subs Hosp L2
[2023-03-22] MEDS: Menthol/Lanolin/Calamine/Znox 113 GM Tube 1 APPLIC TOPICAL ×2 (11:36→20:59)
--- NOTE | 2023-03-22 12:30 | PN.CC_ITS ---
Assessment & Plan Assessment/Plan (1) Acute and chronic respiratory failure with hypoxia: PLAN: Plan RECOMMENDATIONS: 1. He Has now completed 7 days of Zosyn. Okay to DC. 2. Continue scheduled bronchodilator therapy. 3. Continue prednisone 40 mg daily via G-tube x 5 days. Stop date is 03/24 4. Continue attempts at diuresis as tolerated by hemodynamics and renal function. 5. Wean trach collar supplemental O2 to maintain saturations at or above 90%. 6. Physical therapy to work with the patient. 7. Noted possible pleural effusion on previous chest x-ray. Will repeat imaging. If he continues to have signs of pleural effusion chest imaging he would benefit from thoracentesis IMPRESSIONS: 1. Acute on chronic hypoxemic respiratory failure The patient initially presented to the hospital once again in the setting of an acute aspiration event, likely leading to the development of pneumonia and an exacerbation of his obstructive lung disease. The patient has been maintained on aerosol treatments and antimicrobials. The patient will be continued on prednisone via his G-tube for 5 days, as ordered. The patient remains overall net positive for the hospitalization from a volume perspective. Therefore, he will be continued on scheduled diuretics as tolerated by hemodynamics and renal function. In the interim, his trach collar supplemental O2 will be weaned to maintain saturations at or above 90%. Continue nutritional support via G-tube. 2. 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 Continue supportive care as noted above. Physical therapy to work with the patient. CODE STATUS: DNR CCA This note was generated with [employer] dictation software. It may contain incorrect words, spelling, and punctuation that were not noted in checking the note before signing. Subjective Subjective No acute events overnight. He reports that his breathing is so-so Objective Data Objective Data Vital Signs: Vital Signs Temp Pulse Resp BP Pulse Ox O2 Del Method O2 Flow Rate 36.4 C L 89 20 H 115/70 97 Trach Collar 7 03/22/23 07:44 03/22/23 07:44 03/22/23 07:44 03/22/23 07:44 03/22/23 07:44 03/22/23 09:38 03/22/23 07:44 FiO2 30 03/22/23 01:10 Oxygen Flow Rate (L/min) 7 Oxygen Delivery Method Trach Collar Weight: 63.503 kg Body Mass Index (BMI) 19.8 Intake & Output: Intake and Output for Last 24 Hours 03/20/23 03/21/23 03/22/23 23:59 23:59 23:59 Intake Total 660 / 1050 1193.75 / 1193.75 369.25 / 369.25 Output Total 2175 / 2425 1100 / 1100 400 / 400 Balance -1515 / -1375 93.75 / 93.75 -30.75 / -30.75 Medical Nutrition Assessment Dietitian: Malnutrition Criteria Met Start: 03/15/23 15:38 Freq: Status: Active Protocol: Document 03/20/23 15:05 AG (Rec: 03/20/23 15:06 [id number]) Nutrition Malnutrition Evidence of Malnutrition Exists Yes Malnutrition (moderate): Chronic Evidenced By Suboptimal Energy Intake ( Moderate),Physical Changes ( Severe) Clinical Problem Chronic Disease or Condition Related Malnutrition Etiology moderate, chronic malnutrition related to increased energy needs d/t resp. failure Signs/Symptoms as evidenced by severe muscle wasting/fat loss evident per physical exam in orbital, clavicle, acromion, and temporal areas, estimated energy from tube feeds meeting ~67% of estimated calorie needs Status Active Problem Recommendation Dietitian Recommendations/Changes NPO; Continue TF of Jevity 1.5 Dipesh via PEG to match home enteral nutrition support-- 240mL bolus 5x/day with 100mL water flush before and after each bolus to provide 1800 calories, 77 g protein, and 1912mL total fluid/day. Current weight as able. Lab / Micro Data 03/22/23 07:05 03/22/23 07:05 Labs: Laboratory Results - last 24 hr 03/22/23 07:05: WBC 6.7, RBC 3.27 L, Hgb 9.6 L, Hct 32.1 L, MCV 98.2 H, MCH 29.4, MCHC 29.9 L, RDW Std Deviation 55.1 H, RDW Coeff of Oz 15.4 H, Plt Count 323, MPV 11.7, Immature Gran % (Auto) 0.500, Neut % (Auto) 64.4, Lymph % (Auto) 29.8, Navarro % (Auto) 5.1, Eos % (Auto) 0.0, Baso % (Auto) 0.2, Absolute Neuts (auto) 4.3, Absolute Lymphs (auto) 1.98, Nucleated RBC % 0, Sodium 141, Potassium 3.5, Chloride 102, Carbon Dioxide 35.0 H, Anion Gap 4 L, BUN 42 H, Creatinine 1.81 H, Estim Creat Clear Calc 31.67, Est GFR (MDRD) Af Amer 47 L, Est GFR (MDRD) Non-Af 39 L, BUN/Creatinine Ratio 23.2 H, Glucose 117 H, Calcium 10.3 H Micro: Microbiology 03/15/23 11:16 Blood Culture (Wb) - Port Blood Culture - Final No growth in 5 days. 03/15/23 09:40 Blood Culture (Wb) - Left Forearm Blood Culture - Final No growth in 5 days. 03/15/23 15:50 Urine, Clean Catch Urine Culture - Final Culture exhibits no growth. Rhythm Strip Rhythm Strip: Sinus Rhythm (w/ vent pacing) Rate: 90 Ectopy: None Physical Exam Const alert and no apparent distress Constitutional Narrative: Frail and cachectic in appearance. General Appearance: cooperative HEENT normocephalic and head/scalp atraumatic Eyes PERRL, EOMs intact bilaterally and conjunctivae normal Neck supple Neck Narrative: Stable tracheostomy site General: trachea midline Chest inspection of chest normal Resp normal respiratory effort Auscultation: diminished lung sounds Cardio regular rate and regular rhythm GI normal to inspection, nondistended, normoactive bowel sounds Inspection: GI tube present Extremity no clubbing, cyanosis or edema Skin no rashes or lesions noted Neuro CN's II-XII intact bilaterally and no focal motor deficits Psych cooperative and affect normal Charges/Coding Visit Charges Inpatient E&M: 24751 Subs Hosp L2
--- NOTE | 2023-03-22 14:26 | CASEMGMT ---
SW spoke with patient and his significant other Christiane and explained that TCU cannot take patient. Patient and Christiane asked why TCU cannot accept patient. SW explained it is felt they were non adherent with patient's care. They wanted to know specifically what they were non adherent with. FRANKO spoke with Casie in TCU. There is concern with patient's utilizing patient's peg tube outside of the hospital's recommendations. Due to the risk factors associated with this non adherence TCU is unwilling to accept patient. Patient and Christiane expressed their unhappiness with this information. SW asked if they would like a list of other facilities. They declined stating other nursing homes would have the same issue. SW told them that may not be the case and SW would not know until a referral was made. Christiane declined stating she knows how nursing homes are and he will not go to any of them. Christiane asked to talk with RN EVELYN Canales regarding home health. FRANKO passed this information along to LORRIE RIVAS. Leann Moreno DEVELOPMENT GEOLOGIST ANN
--- NOTE | 2023-03-22 15:30 | CASEMGMT ---
Patient and significant other concerned regarding progress with therapy. Patient and significant other agreeable to have therapy and respiratory walk patient on home oxygen tomorrow to see if he tolerates. LORRIE CM updated hopsitalist, RT, and therapy regarding plan for tomorrow. CM will continue to follow this patient and plan for a safe discharge.
[2023-03-23] VITALS (7 sets, daily range): BP systolic 91–133; BP diastolic 61–84; PULSE 65–84; RESP 16–18; TEMP 36.4–36.5; O2SAT 86–98
[2023-03-23] MEDS: Levothyroxine 50 MCG Tablet GT (05:24)
--- NOTE | 2023-03-23 05:55 | RAD_ITS ---
EXAM: XR CHEST, 1 VIEW CLINICAL INDICATION: Hypoxia TECHNIQUE: Frontal view of the chest. COMPARISON: XR Chest dated 03/19/2023 FINDINGS: LUNGS AND PLEURAL SPACES: Improving central pulmonary opacities. Persistent small bilateral pleural effusions with consolidation and/or atelectasis of the lower lobes. HEART: Mild cardiomegaly. MEDIASTINUM: No mediastinal or hilar mass. BONES/JOINTS: No acute abnormality. TUBES, LINES AND DEVICES: Tracheostomy tube in satisfactory position. Tip of the left subclavian infusion catheter remains at the cavoatrial junction. RAD/Chest 1 View (Portable) IMPRESSION: Increasing central pulmonary densities consistent with resolving pulmonary edema. No other interval change. Electronically Signed: Tico Haas MD at 9:21 EST ,
[2023-03-23] MEDS: Jevity 1.5. 1,000 ML Bottle 240 ML GT ×2 (06:38→10:48)
[2023-03-23] MEDS: Ipratropium/Albuterol Sulfate 3 ML AMPUL.NEB INHALATION (07:39)
[2023-03-23] MEDS: Budesonide Respules 0.5 MG/2 ML AMPUL.NEB. INHALATION (07:39)
[2023-03-23 08:36] LABS: Absolute Lymphocyte Count 1.97 X10^3/uL (0.83-4.51); Absolute Neutrophil Count 4.1 X10^3/uL (2.0-7.7); Basophil# 0.01 X10^3/uL; Basophil% 0.2 % (0-1); Eosinophil# 0.01 X10^3/uL; Eosinophils% 0.2 % (0-5); Hematocrit 33.6 % (40-54); Hemoglobin 10.2 g/dL (13.0-16.5); Lymphocyte # 1.97 X10^3/ul (0.83-4.51); Lymphocyte % 30.1 % (19-41); Mean Corp Hgb Conc 30.4 g/dL (32-36); Mean Corpuscular Hgb 30.1 pg (27.0-32.0); Mean Corpuscular Volume 99.1 fL (80-94); Mean Platelet Vol. 11.7 fl (6.2-12.0); Monocyte% 6.1 % (0-10); NRBC Flagged by Analyzer 0.3 % (0-5); Neutrophil # 4.13 X10^3/uL (2.7-7.7); Neutrophil % 62.9 % (47-70); Platelet Count 372 K/mm3 (150-450); RBC Distribution Width CV 15.6 % (11.6-14.6); RBC Distribution Width SD 55.5 fl (35.1-43.9); Red Blood Count 3.39 M/mm3 (4.6-6.2); White Blood Count 6.6 K/mm3 (4.4-11.0)
[2023-03-23] MEDS: Amiodarone 200 MG Tablet GT (08:50)
[2023-03-23] MEDS: predniSONE 20 MG Tablet 40 MG GT (08:50)
[2023-03-23] MEDS: Ferrous Sulfate 300 MG/5 ML UDC GT (08:50)
[2023-03-23] MEDS: Midodrine HCl 5 MG Tablet 15 MG GT ×2 (08:50→13:23)
[2023-03-23] MEDS: Menthol/Lanolin/Calamine/Znox 113 GM Tube 1 APPLIC TOPICAL (08:51)
[2023-03-23] MEDS: Gabapentin 300 MG Capsule GT (08:51)
[2023-03-23] MEDS: APIXABAN 2.5 MG TABLET (WCH) GT (08:52)
[2023-03-23 08:53] LABS: Anion Gap 5 (5-15); BUN 40 mg/dL (7-18); BUN/Creat Ratio 24.8 RATIO (10-20); Calcium,Total 10.3 mg/dL (8.5-10.1); Chloride 102 mmol/L (98-107); Creatinine, Serum 1.61 mg/dL (0.70-1.30); EST Glomerular Filtration Rate 45 mL/min (>60); Est Glom Filt Rate - Afr Amer 54 mL/min (>60); Estimated Creatinine Clearance 35.61 ml/min; Glucose 95 mg/dL (74-106); Potassium 3.3 mmol/L (3.5-5.1); Sodium Level 140 mmol/L (136-145)
--- NOTE | 2023-03-23 12:32 | CASEMGMT ---
Social Work engine testing supervisor asked SW to see pt and sig other when sig other gets here. Significant other Christiane is here. SW spoke w/them in regard to plan. Christiane expressed much upset regarding pt not being able to go to TCU. She states she wants it in writing why pt can't go there. She states that when pt was there last it was never an issue that he was getting the banana and protein in the peg tube, and was frustrated that now it's an issue. She wants to know if it was the post office markup clerk or Dr. Laboy who said he can't come back. She states that she was told this just yesterday(as it is this SW's understanding the referral was just made yesterday to TCU). She states nothing was ever said to her about this being an issue when he was in TCU, and he has also always gotten this in the peg tube while in the hospital. SW explained that will ask the pt advocate to call her, but we still need to figure out the plan. At this point she and pt both state they do not want pt to go to TCU. Pt wants to go home, Christiane does not want to consider any other facilities, as she states she knows people who work in many of them and the care is not good. They are in agreement for pt to go home, and go home today. FRANKO texted physician to let her know. FRANKO let RN and hemodialysis charge nurse know as well. FRANKO left a message for Obey, pt advocate, regarding Christiane's frustrations. NOEL Kam
--- NOTE | 2023-03-23 14:12 | DCINST_ITS ---
Discharge Instructions Diet Discharge Diet: Low fat / Low cholesterol Activity Discharge Activity: Return to Normal Activity Weight Bearing Status: Weight bearing as tolerated Dressing / Incision Call your doctor if you observe: Fever of 101 or Higher, Shortness of breath, Dizziness, Swelling in the ankles, Chest pain and Increased palpitations (irregular heartbeat) Follow Up Care Test Results: Test results from this visit will be discussed in further detail at your follow- up appointment, if applicable. Discharge Plan Admission Admit Date/Time: 03/15/23 12:17 Primary Reason for Your Visit: acute respiratory failure, aspiration pneumonia Attending Provider: Gabriella Cisse Primary Care Provider: Alejandro Liu Consulting Providers: Gordy Hamilton; Hebert Camarena; Stuart Polo; Roberto Roe; Dean Renee; Kayleen Callejas FIELD TRAFFIC INVESTIGATOR Instructions Patient Instructions: Dysphagia Aspiration, Dysphagia Aspiration Tx Additional Instructions / Restrictions: use oxygen for shortness of breath as needed. Discharge Orders/Prescriptions Prescriptions: Continued budesonide 0.5 mg/2 mL suspension for nebulization 0.5 mg inhalation BID Qty: 120 6RF ipratropium-albuterol 0.5 mg-3 mg(2.5 mg base)/3 mL solution for nebulization 3 ml inhalation Q4H PRN (Reason: COPD) Qty: 180 6RF Jevity 1.5 Dipesh 0.06 gram-1.5 kcal/mL Liquid 300 ml G-tube 4X/DAY Qty: 0 0RF Hold Instructions: Order Changed omeprazole 40 mg capsule,delayed release(DR/EC) 40 mg feeding tube DAILY Eliquis 2.5 mg tablet 2.5 mg feeding tube BID Patient Comments: PT STATES THAT THEIR DOCTOR HAS RECENTLY PUT THIS MEDICATION ON HOLD( OF 03-15-23) gabapentin 300 mg capsule 300 mg feeding tube BID levothyroxine 50 mcg Tablet 50 mcg G-tube DAILY@0600 Qty: 0 0RF ferrous sulfate 300 mg (60 mg iron)/5 mL Liquid 300 mg G-tube BREAKFAST Qty: 0 0RF Hold Instructions: Order Completed amiodarone 200 mg Tablet 200 mg G-tube DAILY 30 Days Qty: 30 0RF midodrine 5 mg Tablet 15 mg G-tube TIDCM 30 Days Qty: 270 0RF Referrals / Follow Up: Liu,M Miles PA, PA [Primary Care Provider] - Within 2 Weeks Disposition Disposition (needs filled in before D/C Order can be placed): Home, Self Care
--- NOTE | 2023-03-23 14:18 | DS.PCM_ITS ---
Providers Date of Admission: 03/15/23 Date of Discharge: 03/23/23 Primary Care Physician: LEÓN Fung Consultations 03/19/23 07:45 Consult: Invoicing Machine Operator / Pulmonary Medicine Routine Consulting Provider: Pulmonary Medicine michael Harshaw Reason for Consult: acute on chronic resp failure due to aspiration pneumonia EMERGENT Consult: No MD Notified: Yes Date Notified: 03/19/23 Time Notified: 07:45 Method of Notification: Text Reason For Visit: ASPIRATION PNEUMONIA Diagnosis Discharge Diagnosis (1) Acute and chronic respiratory failure with hypoxia: Status: Resolved Code(s): J96.21 - Acute and chronic respiratory failure with hypoxia Plan #Sepsis due to aspiration pneumonia * on IV zosyn.still on 7L of oxygen with 30% FiO2 * today is day 7 on zosyn. Will dc * being diuresed with IV lasix o/a of elevated BNP. Oxygen requirements are improving. * breathing treatment with bronchodilators * titrate oxygen to maintain sats >90% * breathing treatment with bronchodilators * Blood cultures showed no growth after 48 hours. urine for strep and legionella also negative * on prednisone also * #Acute on Chronic respiratory failure due to aspiration pneumonia * Usually on 2 to 4 L of oxygen at home due to COPD. * down to 7L at 30% FiO2. Has remained at 7L via trach at 30% FiO2, so this appears to be his baseline * Breathing treatments with bronchodilators. * pulmonology on board * has been diuresed with IV lasix; now off lasix * 2D echo from December 2022 showed EF of 35-40%, with mildly dilated LV * #Hypokalemia: resolved. P #LEV: Cr is up to 1.81 today. today. Likely due to IV Lasix. Baseline creatinine is around 1.19. trended up slightly from yesterday. Will monitor for now. #Dehydration and hypotension; resolved. On midodrine chronically for chronic hypotension. #Afib: * on amiodarone and eliquis. 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 Has PEG tube in place and on tube feeds with Jevity. #DVT prophylaxis: on eliquis Total time spent on evaluation and management of patient, reviewing chart and specialist notes, discussing plan with patient and his , discussion with nursing and ancillary staff as well as documentation: 37 mins Disposition: Patient will CC wants to go to TCU. Case management informed. Plan is for placement pending pre-CERT. Medications at Discharge Home Medications lactose-reduced food with fiber 0.06 gram-1.5 kcal/mL oral liquid (Jevity 1.5 Dipesh) 300 ml G-tube 4X/DAY NUTRITION #0 mL 01/25/23 ferrous sulfate 300 mg (60 mg iron)/5 mL oral liquid 300 mg (5 mL) G-tube BREAKFAST SUPPLEMENT #0 mL 01/29/23 levothyroxine 50 mcg tablet 50 mcg G-tube DAILY@0600 THYROID #0 tabs 01/29/23 amiodarone 200 mg tablet 200 mg G-tube DAILY AFIB 30 days #30 tabs 02/13/23 midodrine 5 mg tablet 15 mg (3 x 5 mg) G-tube TIDCM BLOOD PRESSURE 30 days #270 tabs 02/13/23 budesonide 0.5 mg/2 mL suspension for nebulization 0.5 mg (2 mL) inhalation BID COPD #120 mL 03/11/23 ipratropium 0.5 mg-albuterol 3 mg (2.5 mg base)/3 mL nebulization soln 3 ml inhalation Q4H PRN COPD #180 mL 03/11/23 apixaban 2.5 mg tablet (Eliquis) 2.5 mg feeding tube BID BLOOD THINNER 03/15/23 gabapentin 300 mg capsule 300 mg feeding tube BID NERVE PAIN 03/15/23 omeprazole 40 mg capsule,delayed release 40 mg feeding tube DAILY ACID REFLUX 03/15/23 Hospital Course Operations None Procedures None Summary of Care Provided Minutes Spent on Discharge: 50 Hospital Course: Patient is a 77-year-old male with past medical history as outlined including being on a chronic trach and 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 He was admitted through the ED on 03/15/2023 with a complaint of fever and shortness of breath which started at home. says she had noted that he vomited on the day before admission. She noted that he had subsequently become very short of breath and so called the squad. He was hypotensive when the squad got to him with his blood pressure being in the 80s systolic. On admission in the ED, his temperature was 102.4 and blood pressure was 78/51. Pulse of 108. WBC was 13 and hemoglobin was 8.1 and creatinine 1.94. Lactic acid was 2.1. Chest x-ray showed a left lower lobe consolidation with a small left pleural effusion and a focal infiltrate in the right lower lobe with small right pleural effusion also with a questionable 1.2 cm nodule in the right midlung. Patient was admitted and managed for acute hypoxic respiratory failure due to aspiration pneumonia. He was placed on IV Zosyn. Hospital course was complicated by increasing oxygen requirements and pulmonology was consulted. BNP was elevated at over thousand so he was diuresed with IV Lasix. Urine for strep and Legionella were negative and blood cultures were negative. His shortness of breath gradually improved and he felt better. He was weaned down to his baseline oxygen. Hospital course was also complicated by LEV which was thought to be due to IV Lasix that he had received. Patient subsequently felt much better. He was initially wishing to go to [facility] facility but subsequently decided to go home as he only wanted to go to TCU and could not be accepted at TCU. He was discharged home on 03/23/2023. He is to follow-up with his primary care doctor and follow-up with pulmonology on outpatient basis. Patient seen and examined prior to discharge. He felt well. He had no complaints and was ready to be discharged home. Review of systems otherwise negative. Labs and vitals reviewed. Home medication reviewed and reconciled. Physical Exam Const alert, oriented x3 and no apparent distress General Appearance: cooperative, comfortable, well kempt and well developed Orientation / Consciousness: awake, oriented to person, oriented to place and oriented to time HEENT normocephalic and head/scalp atraumatic Mouth: oral and palatal mucosa normal Eyes PERRL, EOMs intact bilaterally and conjunctivae normal Neck no lymphadenopathy, supple and no JVD Neck Narrative: Tracheostomy is present Lymph Lymphatic: no lymphadenopathy noted and no lymphedema noted Resp normal respiratory effort, no retractions and no use of accessory muscles Resp Narrative: Moderately diminished breath sounds bibasilarly. Few crackles. remains on 7 L at FiO2 of 30% of oxygen via trach collar. Auscultation: Negative for rales, rhonchi or wheezes Cardio regular rate, regular rhythm, S1 normal heart sound, S2 normal heart sound, no murmurs, no rub and no gallops GI normal to inspection, nondistended, normoactive bowel sounds, soft to palpation, non-tender and non-distended GI Narrative: Has PEG tube in place. Extremity normal to inspection, full ROM, normal capillary refill, no clubbing, cyanosis or edema and no calf tenderness General Extremity: no tenderness to palpation of joints or extremities Skin no rashes or lesions noted General Skin Exam: no breakdown Neuro oriented x3, CN's II-XII intact bilaterally, moves all extremities, no focal motor deficits, no sensory deficits noted and deep tendon reflexes 2+ bilaterally Sensorium / Orientation: awake and alert Speech: speech normal Motor Exam: strength 5/5 throughout and general weakness Psych thought process normal, cooperative and affect normal Appearance: appropriate Medical Records Data Medical Nutrition Assessment Dietitian: Malnutrition Criteria Met Start: 03/15/23 15:38 Freq: Status: Active Protocol: Document 03/20/23 15:05 (Rec: 03/20/23 15:06 [id number]) Nutrition Malnutrition Evidence of Malnutrition Exists Yes Malnutrition (moderate): Chronic Evidenced By Suboptimal Energy Intake ( Moderate),Physical Changes ( Severe) Clinical Problem Chronic Disease or Condition Related Malnutrition Etiology moderate, chronic malnutrition related to increased energy needs d/t resp. failure Signs/Symptoms as evidenced by severe muscle wasting/fat loss evident per physical exam in orbital, clavicle, acromion, and temporal areas, estimated energy from tube feeds meeting ~67% of estimated calorie needs Status Active Problem Recommendation Dietitian Recommendations/Changes NPO; Continue TF of Jevity 1.5 Dipesh via PEG to match home enteral nutrition support-- 240mL bolus 5x/day with 100mL water flush before and after each bolus to provide 1800 calories, 77 g protein, and 1912mL total fluid/day. Current weight as able. Weight / BMI Weight Weight: 140 lb 0.002 oz Body Mass Index (BMI) 19.8 ABG / Lab / Microbiology Data 03/23/23 07:18 03/23/23 07:18 Laboratory: Laboratory Results - last 24 hr 03/23/23 07:18: WBC 6.6, RBC 3.39 L, Hgb 10.2 L, Hct 33.6 L, MCV 99.1 H, MCH 30.1, MCHC 30.4 L, RDW Std Deviation 55.5 H, RDW Coeff of Oz 15.6 H, Plt Count 372, MPV 11.7, Immature Gran % (Auto) 0.500, Neut % (Auto) 62.9, Lymph % (Auto) 30.1, Kings % (Auto) 6.1, Eos % (Auto) 0.2, Baso % (Auto) 0.2, Absolute Neuts (auto) 4.1, Absolute Lymphs (auto) 1.97, Nucleated RBC % 0.3, Sodium 140, Potassium 3.3 L, Chloride 102, Carbon Dioxide 33.0 H, Anion Gap 5, BUN 40 H, Creatinine 1.61 H, Estim Creat Clear Calc 35.61, Est GFR (MDRD) Af Amer 54 L, Est GFR (MDRD) Non-Af 45 L, BUN/Creatinine Ratio 24.8 H, Glucose 95, Calcium 10.3 H Microbiology: Microbiology 03/15/23 11:16 Blood Culture (Wb) - Port Blood Culture - Final No growth in 5 days. 03/15/23 09:40 Blood Culture (Wb) - Left Forearm Blood Culture - Final No growth in 5 days. 03/15/23 15:50 Urine, Clean Catch Urine Culture - Final Culture exhibits no growth. Radiography Diagnostic Testing: Radiology Impression Chest X-Ray 03/23/23 05:55 IMPRESSION: Increasing central pulmonary densities consistent with resolving pulmonary edema. No other interval change. Electronically Signed: Tico Haas MD at 9:21 EST , D/C Instructions Discharge Diet: - (NPO,fed via PEG tube) Discharge Activity: Return to Normal Activity Weight Bearing Status: Weight bearing as tolerated Call your doctor if you observe: Fever of 101 or Higher, Shortness of breath, Dizziness, Swelling in the ankles, Chest pain and Increased palpitations (irregular heartbeat) Meaningful Use Info Meaningful Use Diagnoses (Choose all that apply): CHF CHF YUSUF/ARB ordered at discharge?: No Reason YUSUF/ARB not ordered?: Worsening renal disease Documented LVEF (%): 35 Discharge Plan Admission Admit Date/Time: 03/15/23 12:17 Primary Reason for Your Visit: acute respiratory failure, aspiration pneumonia Attending Provider: Gabriella Cisse Primary Care Provider: Alejandro Liu Consulting Providers: Gordy Hamilton; Hebert Camarena; Stuart Polo; Roberto Roe; Dean Renee; Kayleen Callejas SEO ANALYST Instructions Patient Instructions: Dysphagia Aspiration, Dysphagia Aspiration Tx Additional Instructions / Restrictions: use oxygen for shortness of breath as needed. Discharge Orders/Prescriptions Prescriptions: Continued budesonide 0.5 mg/2 mL suspension for nebulization 0.5 mg inhalation BID Qty: 120 6RF ipratropium-albuterol 0.5 mg-3 mg(2.5 mg base)/3 mL solution for nebulization 3 ml inhalation Q4H PRN (Reason: COPD) Qty: 180 6RF Jevity 1.5 Dipesh 0.06 gram-1.5 kcal/mL Liquid 300 ml G-tube 4X/DAY Qty: 0 0RF Hold Instructions: Order Changed omeprazole 40 mg capsule,delayed release(DR/EC) 40 mg feeding tube DAILY Eliquis 2.5 mg tablet 2.5 mg feeding tube BID Patient Comments: PT STATES THAT THEIR DOCTOR HAS RECENTLY PUT THIS MEDICATION ON HOLD( OF 03-15-23) gabapentin 300 mg capsule 300 mg feeding tube BID levothyroxine 50 mcg Tablet 50 mcg G-tube DAILY@0600 Qty: 0 0RF ferrous sulfate 300 mg (60 mg iron)/5 mL Liquid 300 mg G-tube BREAKFAST Qty: 0 0RF Hold Instructions: Order Completed amiodarone 200 mg Tablet 200 mg G-tube DAILY 30 Days Qty: 30 0RF midodrine 5 mg Tablet 15 mg G-tube TIDCM 30 Days Qty: 270 0RF Referrals / Follow Up: Alejandro Liu PA [Primary Care Provider] - Within 2 Weeks Disposition Disposition (needs filled in before D/C Order can be placed): Home, Self Care Charges/Coding Visit Charges Inpatient E&M: 57910 Disch Hosp >30min
--- NOTE | 2023-03-23 14:18 | NURSING ---
I spoke with Melany at [facility] to inform her that pt will be d/c today. I also faxed over the d/c instrutions.
--- NOTE | 2023-03-23 15:07 | CASEMGMT ---
LORRIE CM: Call received from LORRIE Pierre with [facility] stating pt's is with questions and unclear re: pt's discharge on this date. Gabby states she has scheduled to do a resumption of care tomorrow/Saturday at 0900 which she did explain to pt's . This LORRIE RIVAS met with pt and pt's at bedside. Pt sitting in chair, alert and communicating via writing. Reviewed with pt's plan for pt to be discharged on this date with LETICIA of [facility] tomorrow at 0900. Pt's states she did receive a call from [facility] and is aware of plan for visit tomorrow at 0900. Pt's agreeable to discharge on this date and LETICIA. Pt's with questions about home medications, feeding schedule, etc. Explained that pt's RN will review all instructions and medications with her prior to discharge. Pt's expressed understanding and states she would like to leave as soon as possible prior to it getting dark and the pharmacies closing. Pt's RN Bryant notified. Call placed to LORRIE Pierre with [facility] and confidential message left notifying of continued plan for DC today with LETICIA as she had planned tomorrow. Saumya Paredes RN CM
[2023-03-23] MEDS: 0.9 % NaCl (Sterile) Posiflush 10 mL IV (15:41)
== END 2023-03-23 16:14 | disposition home health service (06) | DRG 871 ==
LOC: ED 12:27 → PCU 12:30
PROVIDERS: Internal Medicine Critical Care Medicine; Admitting Provider Internal Medicine; Emergency Provider Emergency Medicine; PCP Physician Assistant; Visit Provider Student in an Organized Health Care Education/Training Program
DX: A41.9 Sepsis, unspecified organism (principal); J69.0 Pneumonitis due to inhalation of food and vomit; J96.21 Acute and chronic respiratory failure with hypoxia; N17.9 Acute kidney failure, unspecified; I42.9 Cardiomyopathy, unspecified; J44.0 Chronic obstructive pulmonary disease with (acute) lower respiratory infection; E44.0 Moderate protein-calorie malnutrition; I50.22 Chronic systolic (congestive) heart failure; Z68.1 Body mass index [BMI] 19.9 or less, adult; I48.0 Paroxysmal atrial fibrillation; N18.30 Chronic kidney disease, stage 3 unspecified; Z93.0 Tracheostomy status; Z93.1 Gastrostomy status; E03.9 Hypothyroidism, unspecified; I95.89 Other hypotension; D64.81 Anemia due to antineoplastic chemotherapy; E87.6 Hypokalemia; E86.0 Dehydration; Z79.01 Long term (current) use of anticoagulants; Z87.891 Personal history of nicotine dependence; Z79.51 Long term (current) use of inhaled steroids; T45.1X5A Adverse effect of antineoplastic and immunosuppressive drugs, initial encounter; Z66 Do not resuscitate; Z79.899 Other long term (current) drug therapy; Z79.890 Hormone replacement therapy; Z85.819 Personal history of malignant neoplasm of unspecified site of lip, oral cavity, and pharynx; R13.10 Dysphagia, unspecified
CPT/HCPCS: 31720; 36415; 71045; 80048; 80053; 81001; 83605; 83880; 84484; 85025; 85610; 85730; 87040; 87086; 93005; 93971; 94640; 97110; 97116; 97162; 97530; 97802; 97803; 99285; J7030; J7040; J7050; A4216; J0295; J1940

== ENCOUNTER 2023-04-04 22:09 | Emergency (ER) | payer MEDICARE, OTHER, SELFPAY ==
[2023-04-04 22:10] VITALS: BP 131/73; PULSE 98; RESP 20; TEMP 37.2; O2SAT 91; O2SAT 92; BMI 20.5
--- OUTSIDE RECORDS SUMMARY | 2023-04-04 23:32 | XMS RPT_ITS | CCD ---
Author Name Unknown Address [address] [place] [address] Organization [facility] Care Team Providers Care Airport Operations Specialist Name Role Phone Alejandro Liu PA-C Primary Care Provider Jonathan Max MD Unavailable Luis Baumann Unavailable Alejandro LIU Attending Unavailable Alejandro LIU Primary Care Unavailable Alejandro LIU Primary Care Unavailable Alejandro LIU Primary Care Unavailable Alejandro LIU Attending Unavailable Alejandro LIU Attending Unavailable Alejandro LIU Primary Care Unavailable Alejandro LIU Attending Unavailable Alejandro LIU Primary Care Unavailable Alejandro LIU Attending Unavailable Alejandro LIU Primary Care Unavailable Allergies Allergy Classification Reported Allergen(s) Allergy Type Date of Onset Reaction(s) Facility (16 sources) Pseudoephedrine; Translations: [PSEUDOEPHEDRINE HCL] Drug Allergy 12-29-2015 Other: See Comments [facility] Medications Current Medications Medication Drug Class(es) Dates Sig (Normalized) Sig (Original) omeprazole 40 mg delayed release oral capsule (7 sources) Proton Pump Inhibitor Start: 02-25-2023 End: 08-24-2023 take 1 capsule by mouth once daily omeprazole (PRILOSEC) 40 mg capsule Take 1 capsule by mouth once daily. 90 capsule 0 02/25/2023 08/24/2023 Active Completed/Discontinued Medications Medication Drug Class(es) Dates Sig (Normalized) Sig (Original) albuterol 0.833 mg/ml / ipratropium bromide 0.167 mg/ml inhalation solution (7 sources) Anticholinergic, beta2-Adrenergic Agonist Start: 12-16-2022 ipratropium-albute rol (DUONEB) 0.5 mg-3 mg(2.5 mg base)/3 mL nebu USE 3 ML VIA NEBULIZER EVERY 4 HOURS NEEDED FOR SHORTNESS OF BREATH OR WHEEZING 0 12/16/2022 Active Problems Active Problems Problem Classification Problem Date Documented Da te Episodic/Chronic Administrative/social admission (8 sources) Patient encounter status; Translations: [Persons encountering health services in other specified circumstances] Onset: 3 12-26-2022 Episodic Cancer of head and neck (20 sources) Malignant tumor of larynx; Translations: [Malignant neoplasm of larynx, unspecified] Onset: 6 Chronic Cancer of head and neck (1 source) Personal history of malignant neoplasm of larynx; Translations: [History of primary laryngeal cancer] Onset: 3 Episodic Cardiac dysrhythmias (3 sources) Supraventricular tachycardia; Translations: [Supraventricular tachycardia] Onset: 3 12-27-2022 Chronic Chronic kidney disease (19 sources) Chronic renal failure; Translations: [Chronic renal failure, stage 3 (moderate)] Onset: 8 11-06-2017 Chronic Chronic kidney disease (1 source) Chronic kidney disease; Translations: [Stage 3b chronic kidney disease (HCC)] Onset: 3 Chronic obstructive pulmonary disease and bronchiectasis (20 sources) Pulmonary emphysema; Translations: [Emphysema, unspecified] Onset: 6 Chronic Complication of device; implant or graft (1 source) Complication of catheter; Translations: [Unspecified complication of internal prosthetic device, implant and graft, initial encounter] Episodic Congestive heart failure; nonhypertensive (2 sources) Acute systolic heart failure; Translations: [Acute systolic (congestive) heart failure] Onset: 3 12-28-2022 Chronic Deficiency and other anemia (17 sources) Anemia co-occurrent and due to chronic kidney disease stage 3; Translations: [Anemia due to stage 3 chronic kidney disease] Onset: 8 04-04-2021 Chronic Deficiency and other anemia (1 source) Anemia in chronic kidney disease; Translations: [Anemia due to stage 3a chronic kidney disease (HCC)] Onset: 2 Chronic Deficiency and other anemia (1 source) Anemia; Translations: [Anemia, unspecified] Episodic Deficiency and other anemia (1 source) Deficiency and other anemia; Translations: [Anemia due to stage 3a chronic kidney disease (HCC)] Onset: 2 Delirium, dementia, and amnestic and other cognitive disorders (1 source) Senile asthenia; Translations: [Age-related physical debility] Chronic Esophageal disorders (1 source) Gastroesophageal reflux disease without esophagitis; Translations: [Gastro-esophageal reflux disease without esophagitis] 12-28-2022 Chronic Hyperplasia of prostate (3 sources) Retention of urine; Translations: [Benign prostatic hyperplasia with lower urinary tract symptoms] Onset: 3 Chronic Mycoses (3 sources) Candidiasis of mouth; Translations: [Candidal stomatitis] Onset: 3 Episodic Nutritional deficiencies (20 sources) Deficiency of macronutrients; Translations: [Unspecified protein-calorie malnutrition] Onset: 7 11-05-2016 Chronic Other aftercare (2 sources) Post-discharge follow-up; Translations: [Encounter for follow-up examination after completed treatment for conditions other than malignant neoplasm] Episodic Other aftercare (1 source) Long-term current use of anticoagulant; Translations: [ocean transportation intermediary (current) use of anticoagulants] 12-28-2022 Episodic Other aftercare (1 source) Encounter for follow-up examination after completed treatment for conditions other than malignant neoplasm; Translations: [Hospital discharge follow-up] Onset: 3 Episodic Other and ill-defined heart disease (1 source) Hypokinesis of cardiac wall; Translations: [Other ill-defined heart diseases] 12-28-2022 Chronic Other circulatory disease (1 source) Device in situ; Translations: [Presence of other vascular implants and grafts] Chronic Other circulatory disease (1 source) Orthostatic hypotension; Translations: [Orthostatic hypotension] 12-28-2022 Episodic Other circulatory disease (1 source) Other hypotension; Translations: [Other specified hypotension] Onset: 3 Episodic Other connective tissue disease (1 source) Neuralgia and neuritis, unspecified; Translations: [Neuropathic pain] Onset: 3 Episodic Other endocrine disorders (13 sources) Acute adrenal insufficiency; Translations: [Unspecified adrenocortical insufficiency] Onset: 3 Chronic Other endocrine disorders (1 source) Unspecified adrenocortical insufficiency; Translations: [Acute adrenal insufficiency (HCC)] Onset: 3 Chronic Other gastrointestinal disorders (18 sources) Gastrostomy present; Translations: [Gastrostomy status] Onset: 6 Chronic Other gastrointestinal disorders (1 source) Gastrostomy status; Translations: [PEG (percutaneous endoscopic gastrostomy) status ([facility])] Onset: 6 Chronic Other gastrointestinal disorders (2 sources) Occult blood in stools; Translations: [Other fecal abnormalities] Episodic Other gastrointestinal disorders (1 source) Oropharyngeal dysphagia; Translations: [Dysphagia, oropharyngeal phase] Episodic Other injuries and conditions due to external causes (1 source) Pulmonary aspiration ; Translations: [Unspecified foreign body in respiratory tract, part unspecified causing other injury, sequela] 12-28-2022 Episodic Other nervous system disorders (10 sources) Peripheral neuropathy due to and following chemotherapy; Translations: [Drug-induced polyneuropathy] Onset: 9 Chronic Other nervous system disorders (1 source) Drug-induced polyneuropathy; 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)] Onset: 3 Chronic Other upper respiratory disease (19 sources) Tracheostomy present; Translations: [Tracheostomy status] Onset: 6 Chronic Other upper respiratory disease (1 source) Tracheostomy status; Translations: [Tracheostomy in place ([facility])] Onset: 6 Chronic Genet-; endo-; and myocarditis; cardiomyopathy (except that caused by tuberculosis or sexually transmitted disease) (1 source) Dilated cardiomyopathy; Translations: [Dilated cardiomyopathy] 12-28-2022 Chronic Pneumonia (except that caused by tuberculosis or sexually transmitted disease) (14 sources) Sepsis; Translations: [Pneumonia, unspecified organism] Onset: 3 Episodic Residual codes; unclassified (1 source) Urinary catheter in situ; Translations: [Presence of other specified devices] Episodic Residual codes; unclassified (1 source) Tobacco use and exposure - finding; Translations: [Tobacco use] Episodic Respiratory failure; insufficiency; arrest (adult) (2 sources) Acute on chronic hypoxemic respiratory failure; Translations: [Acute and chronic respiratory failure with hypoxia] Onset: 3 12-27-2022 Chronic Respiratory failure; insufficiency; arrest (adult) (1 source) Respiratory failure; insufficiency; arrest (adult); Translations: [Chronic renal failure, stage 3a (HCC)] Onset: 2 Secondary malignancies (18 sources) Secondary malignant neoplasm of left lung; Translations: [Secondary malignant neoplasm of left lung] Onset: 8 08-07-2021 Chronic Secondary malignancies (1 source) Secondary malignant neoplasm of left lung; Translations: [Secondary malignant neoplasm of left lung (HCC)] Onset: 2 Chronic Thyroid disorders (18 sources) Acquired hypothyroidism; Translations: [Hypothyroidism, unspecified] Onset: 7 04-04-2021 Chronic Unclassified (6 sources) Secondary peripheral neuropathy; Translations: [Secondary peripheral neuropathy] Onset: 9 05-14-2018 Past or Other Problems Problem Classification Problem Date Documented Da te Episodic/Chronic Acute and unspecified renal failure (2 sources) Acute injury of kidney; Translations: [Acute kidney failure, unspecified] Onset: 3 Episodic E Codes: Adverse effects of medical drugs (1 source) Adverse effect of antineoplastic and immunosuppressive drugs, initial encounter; 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)] Onset: 3 Episodic Genitourinary symptoms and ill-defined conditions (1 source) Other retention of urine; Translations: [Urinary retention due to benign prostatic hyperplasia] Onset: 3 Episodic Other gastrointestinal disorders (1 source) Other fecal abnormalities; Translations: [Heme + stool] Onset: 3 Episodic Other gastrointestinal disorders (1 source) Dysphagia, oropharyngeal phase; Translations: [Oropharyngeal dysphagia] Onset: 3 Episodic Other hematologic conditions (15 sources) Protein electrophoresis abnormal; Translations: [Other specified abnormalities of plasma proteins] Onset: 8 04-04-2021 Episodic Other lower respiratory disease (15 sources) Radiologic infiltrate of lung ; Translations: [Other nonspecific abnormal finding of lung field] Onset: 7 02-25-2019 Episodic Septicemia (except in labor) (2 sources) Septic shock; Translations: [Sepsis, unspecified organism] Onset: 3 Episodic Results Test Name Value Interpretation Reference Range Facil ity Vital Signs Date Time Vital Sign Value Performing Clinician Faci lity 12-27-2022 11:46-0400 Diastolic blood pressure 56 mm[Hg] NA Liu PA-C Work Phone: [facility] 12-27-2022 11:46-0400 Heart rate 84 /min NA Liu PA-C Work Phone: [facility] 12-27-2022 11:46-0400 SaO2% (BldA) [Mass fraction] 94 % NA Liu PA-C Work Phone: [facility] 12-27-2022 11:46-0400 Systolic blood pressure 90 mm[Hg] NA Liu PA-C Work Phone: [facility] 06-29-2022 13:20-0400 Body weight 56.7 kg NA Liu PA-C Work Phone: [facility] 06-29-2022 13:20-0400 Diastolic blood pressure 64 mm[Hg] NA Liu PA-C Work Phone: [facility] 06-29-2022 13:20-0400 Heart rate 102 /min NA Liu PA-C Work Phone: [facility] 06-29-2022 13:20-0400 Respiratory rate 20 /min NA Liu PA-C Work Phone: [facility] 06-29-2022 13:20-0400 SaO2% (BldA) [Mass fraction] 94 % NA Liu PA-C Work Phone: [facility] 06-29-2022 13:20-0400 Systolic blood pressure 96 mm[Hg] NA Liu PA-C Work Phone: [facility] 03-16-2022 13:12-0500 Body temperature 97.59 [degF] NA Liu PA-C Work Phone: [facility] 03-16-2022 13:12-0500 Diastolic blood pressure 58 mm[Hg] NA Liu PA-C Work Phone: [facility] 03-16-2022 13:12-0500 Heart rate 60 /min NA Liu PA-C Work Phone: [facility] 03-16-2022 13:12-0500 SaO2% (BldA) [Mass fraction] 94 % NA Liu PA-C Work Phone: [facility] 03-16-2022 13:12-0500 Systolic blood pressure 108 mm[Hg] NA Liu PA-C Work Phone: [facility] 01-08-2022 15:00-0400 Body temperature 99 [degF] Demetria Griffin MD Work Phone: [facility] 01-08-2022 15:00-0400 Body weight 57.06 kg Demetria Griffin MD Work Phone: [facility] 01-08-2022 15:00-0400 Diastolic blood pressure 60 mm[Hg] Demetria Griffin MD Work Phone: [facility] 01-08-2022 15:00-0400 Heart rate 124 /min Demetria Griffin MD Work Phone: [facility] 01-08-2022 15:00-0400 SaO2% (BldA) [Mass fraction] 96 % Demetria Griffin MD Work Phone: [facility] 01-08-2022 15:00-0400 Systolic blood pressure 106 mm[Hg] Demetria Griffin MD Work Phone: [facility] 12-19-2021 10:50-0400 Body height 177.8 cm Shira [place] PA-C Work Phone: [facility] 12-19-2021 10:50-0400 Body temperature 98.29 [degF] Shira [place] PA-C Work Phone: [facility] 12-19-2021 10:50-0400 Body weight 57.61 kg Shira [place] PA-C Work Phone: [facility] 12-19-2021 10:50-0400 Diastolic blood pressure 58 mm[Hg] Shira Ivan PA-C Work Phone: [facility] 12-19-2021 10:50-0400 Heart rate 107 /min Shira [place] PA-C Work Phone: [facility] 12-19-2021 10:50-0400 SaO2% (BldA) [Mass fraction] 94 % Shira Love PA-C Work Phone: [facility] 12-19-2021 10:50-0400 Systolic blood pressure 98 mm[Hg] Shira Love PA-C Work Phone: [facility] Encounters Encounter Date Encounter Type Care Provider Facility Start: 04-02-2023 End: 04-02-2023 ambulatory Alejandro LIU Facility:[facility] Start: 03-12-2023 Refill Alejandro Goodman on PA-C Work Phone: [facility] [place] Procedures Date Procedure Procedure Detail Performing Clinician Start: 11-06-2017 Adult depression screening assessment Shira Love PA-C Work Phone: H/O: surgery Status post surgery Demetria Griffin MD Work Phone: Plan of Treatment Date Care Activity Detail Author Start: 02-26-2024 Annual PCP Team Apprentice Painter [place] Disease Visit Annual PCP Team Chronic Disease Visit [facility] Start: 12-28-2023 Annual PCP Team Apprentice Painter [place] Disease Visit Annual PCP Team Chronic Disease Visit [facility] Start: 06-30-2023 ANNUAL PCP TEAM [place] DISEASE VISIT ANNUAL PCP TEAM CHRONIC DISEASE VISIT [facility] Start: 04-18-2023 COLORECTAL CANCER SCREENING COLORECTAL CANCER SCREENING [facility] Start: 04-18-2023 FECAL OCCULT BLOOD FECAL OCCULT BLOO D [facility] Start: 04-13-2023 ANNUAL PCP TEAM [place] DISEASE VISIT ANNUAL PCP TEAM CHRONIC DISEASE VISIT [facility] Start: 03-16-2023 ANNUAL PCP TEAM [place] DISEASE VISIT ANNUAL PCP TEAM CHRONIC DISEASE VISIT [facility] Start: 12-07-2022 Covid-19 Vaccine ( season) Covid-19 Vaccine ( season) [facility] Start: 12-07-2022 Influenza vaccination [facility] Start: 11-08-2022 DIABETES SCREEN DIABETES SCREEN [facility] Start: 11-08-2022 Diabetes Screening Diabetes Screenin g [facility] Start: 04-08-2022 ADVANCE DIRECTIVE DISCUSSION ADVANCE DIRECTIVE DISCUSSION [facility] Start: 04-08-2022 DEPRESSION ASSESSMENT DEPRESSION ASS ESSMENT [facility] Start: 12-07-2021 Influenza vaccination INFLUENZA (#1) [facility] Start: 07-12-2021 COVID-19 VACCINE (4 - Booster for Pfizer series) COVID-19 VACCINE (4 - Booster for Pfizer series) [facility] Start: 05-08-2021 COVID-19 VACCINE (4 - Booster for Pfizer series) COVID-19 VACCINE (4 - Booster for Pfizer series) [facility] Start: 05-08-2021 COVID-19 VACCINE (4 - Pfizer series) COVID-19 VACCINE (4 - Pfizer series) [facility] Start: 04-08-2021 ADVANCE DIRECTIVE DISCUSSION ADVANCE DIRECTIVE DISCUSSION [facility] Start: 04-08-2021 DEPRESSION ASSESSMENT DEPRESSION ASS ESSMENT [facility] Start: 01-31-2021 HEMOGLOBIN/HEMATOCRIT HEMOGLOBIN/HEM ATOCRIT [facility] Start: 11-22-2019 ANNUAL PCP TEAM [place] DISEASE VISIT ANNUAL PCP TEAM CHRONIC DISEASE VISIT [facility] Start: 11-06-2018 Adult depression scr eening assessment DEPRESSION SCREENING [facility] Start: 2007 RSV Vaccine (1 - 1-d ose 60+ series) RSV Vaccine (1 - 1-dose 60+ series) [facility] Start: 1997 SHINGRIX VACCINE (1 of 2) SHINGRIX V ACCINE (1 of 2) [facility] Start: 1992 COLOGUARD (FIT-DNA) COLOGUARD (FIT-D NA) [facility] Start: 1992 Colonoscopy COLONOSCOPY [facility] Start: 1992 COLORECTAL CANCER SCREENING COLORECTAL CANCER SCREENING [facility] Start: [address] COLONOGRAPHY [facility] Start: 1992 FECAL OCCULT BLOOD FECAL OCCULT BLOO D [facility] Start: 1992 SIGMOIDOSCOPY SIGMOIDOSCOPY [facility] Start: 1982 Lipid 1996 panel - S afshan or Plasma Lipid Screening [facility] Start: 1982 LIPID SCREEN LIPID SCREEN [facility] Start: 1977 Zoledronic acid therapy ALPHA- 1 ANTITRYPSIN DEFICIENCY SCREENING [facility] Start: 1966 SHINGRIX VACCINE (1 of 2) SHINGRIX V ACCINE (1 of 2) [facility] Start: 1966 Urine microalbumin profile [facility] Start: 1965 HEPATITIS C SCREENING HEPATITIS C SC REENING [facility] Start: 1965 SERUM CREATININE SERUM CREATININE Cl [facility] Start: 1965 SPIROMETRY SPIROMETRY [facility] Start: 1953 Pneumococcal Vaccine : 65+ (1 - PCV) Pneumococcal Vaccine: 65+ (1 - PCV) [facility] Start: 1953 PNEUMOCOCCAL: 65+ (1 - PCV) PNEUMOCOCCAL: 65+ (1 - PCV) [facility] Start: 1947 ABDOMINAL AORTIC ANE URYSM SCREENING ABDOMINAL AORTIC ANEURYSM SCREENING [facility] Immunizations Immunization Date Immunization Notes Care Provider Lexis pinto 05-14-2018 influenza virus vacc ine, unspecified formulation ADELINA Liu PA-C Work Phone: [facility] Payers Date Payer Category Payer Medicare [id number] 2015 Private Health Insurance [employer] A ETNA MEDICARE SUPPLEMENT [id number] 2015-Present [phone] [address] [address] [place] [address] Indemnity [id number] 2012 Medicare MEDICARE MEDICAR E A AND B [id number] 2012-Present [phone] [address] [address] [place] [address] Medicare [id number] 2012 Medicare [id number] Social History Date Type Detail Facility Start: 12-19-2021 Tobacco smoking stat us PAIS Occasional tobacco smoker [facility] Start: 12-19-2021 Tobacco use and exposure Arash smart smokeless tobacco user [facility] Start: 12-19-2021 End: 02-25-2023 Alcohol intake Current non-drinker of alcohol (finding) [facility] Start: 12-29-2015 History SDOH Alcohol Comment used to drink on occasion, but no longer [facility] Start: 1945 Sex Assigned At Not on file [facility] Start: 12-09-2021 End: 01-22-2022 Exposure to SARS-CoV-2 (event) Not sure [facility] Start: 06-29-2022 End: 12-27-2022 History of Social function [facility] Start: 06-29-2022 End: 12-27-2022 Tobacco use panel [facility] Adult Depression Screening Assessment 0 [facility] Clinical Notes 12-19-2021 to 04-02-2023 Telephone Encounter - Dafne Coy Ma - 03/13/2023 9:36 AM ESTTelephone Encounter - Rose Bergman - 03/13/2023 9:30 AM ESTTelephone Encounter - Samreen Muhammad - 03/12/2023 11:47 AM EST Note Date & Type Note Facility 04-02-2023 Note HNO ID: [id number] Author: Alejandro Liu PA-C Service: ? Author Type: Physician Learning Disabilities Teacher Type: Progress Notes Filed: 04/02/2023 6:19 PM Note Text: 77 year old male with c/o Hospital discharge follow up Hospital discharge follow-up: Facility Date of admission 03/15/2023 Date of discharge 03/23/2023 Consultation: pulmonary Dr. Polo Discharge diagnoses: 1. Acute on chronic respiratory failure with hypoxia 2. Hypokalemia resolved 3. Elevated creatinine up to 1.81, likely due to IV Lasix, baseline creatinine about 1.19 4. Dehydration and hypotension resolved: On midodrine for chronic hypotension 5. Atrial fibrillation on amiodarone and Eliquis, remained in sinus rhythm during stay 6. Hypothyroidism: Synthroid continue 7. 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 DVT prophylaxis on Eliquis Medication reconciliation: Continue prescriptions: Budesonide 0.5 mg / 2 mL suspension for nebulizer twice daily, #120/6 Ipratropium-albuterol 0.5 mg / 3 mg per 3 mL solution nebulizer every 4 hours as needed, #180/6 Jevity 1.5-calorie 0.06 g - 1.5 kcal/mL liquid: 300 mL G-tube 4 times daily Omeprazole [address] G-tube daily Eliquis 2.5 mg p.o. 2 twice a day Gabapentin 300 mg G-tube twice a day Levothyroxine 50 mg daily AC Ferrous sulfate 300 mg per 5 mL liquid daily Amiodarone 200 mg daily. #30/0 Midodrine 5 mg 50 mg 3 times daily, #270/0 Presented [facility] ER with possible aspiration and fever Patient was treated with IV Zosyn for 7 days On 7 L O2 30% FiO2 Diuresis with Lasix related to elevated BNP Oxygen requirements improved Treated with bronchodilators and oxygen to maintain sats greater than 90% Blood cultures showed no growth after 48 hours with negative urine strep and Legionella Maintained on prednisone Hospital course: Admitted through ER 03/15/2023 with fever, shortness of breath starting at home with concerns over aspiration due to vomiting the day before admission. states he became very short of breath so called the office, directed to go to the emergency room. Called squad: I admission temp 102.4F-78/51-108. WBC 13, hemoglobin 8.1, creatinine 1.94, lactic acid 2.1, troponin 18, lactic acid 2.1. chest x-ray: Lower lobe consolidation with small left pleural effusion with focal infiltrate in right lower lobe and mild right pleural effusion also seen associated with questionable 1.2 cm nodule in the right midlung. Patient was admitted and managed for acute hypoxic respiratory failure with IV Zosyn, complicated by increasing oxygen requirements. Pulmonary consulted. BNP was elevated over thousand so was diuresed with IV Lasix. Urine for strep and Legionella were negative, blood cultures are negative. Patient progressively improved, able to wean oxygen down. Initially wished to go to nursing home facility but subsequently decided to go back home as he only wanted to go to TCU and could not be accepted there. Recommendations dietitian: N.p.o., continue Jevity 1.5-calorie via PEG to match home nutritional support: 240 mg bolus 5 times a day with 100 mL water flush, 1800 yesica, 77 g protein, 912 mL total fluids per day. Discharge weight 140 pounds/BMI 19.8. 03/23/2023 CBC: WBC 6.6-Hgb 10.2-HCT 33.6-PLT 372: MCHC 30.4, RDW 55.5 with normal differential 03/23/2023 chemistry: NA 140-CL 102-K3.3-CO2 33.0-BUN 40-CRE 1.6-CL 95 03/23/2023 chest x-ray: Increasing central pulmonary densities consistent with resolving pulmonary edema, no other interval change CODE STATUS DNR CCA Current status: overall feeling better. A lot of conversation around VNA and ST concerns over practice of adding liquified banana and whey to his tube feeding. Has been doing this for years which keeps him from having constant diarrhea and reduces the back splash with reflux. upset that they are being labeled non-compliant . Usual cough, bringing up mostly white secretions. No SOB, chest pain hemoptysis. No fever or chills. Energy low Frustrated with home health nurse not listening to them and their own experience. Stools are formed, usually daily. believes aspiration risk increases without above treatment and feels nurses don't want to wait for gravity drainage. If they add flushes and push he ends up with reflux and pneumonia. States discovered mycostatin allergy: stopped medication and mouth is improving. Last consult hematology was in November- has been in hospital multiple times. 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 [facility] 03-28-2023 Note HNO ID: [id number] Author: Alejandro Liu PA-C Service: ? Author Type: Physician Learning Disabilities Teacher Type: Progress Notes Filed: 03/28/2023 4:35 PM Note Text: I am fine with OTC melt option. Again, I did send a liquid option- see prior messages (no one acknowledged this). Thanks, Edwin Liu PA-C [facility] 03-26-2023 Note HNO ID: [id number] Author: Kimberly Walker LPN Service: ? Author Type: LICENSED NURSE Type: Progress Notes Filed: 03/28/2023 4:35 PM Note Text: TRANSITION CARE MANAGEMENT (TCM) INITIAL CONTACT Photogrammetric Stereo Compiler Outreach Provider Action/FYI: Regarding Omeprazole can not use the capsules they do not dissolve. when opening up they are styrofoam. Christiane has am OTC 20 mg of Omeprazole tablet that melts in water. she dissolves in a little water and puts thru the feeding tube, She is going to continue what she is doing unless you can come up with something else. Initial contact with patient post discharge, spoke to Significant other for 17 years and caregiver. Patient identified by name and . TRANSITION CARE MANAGEMENT INITIAL OUTREACH DOCUMENTATION: Date of Outreach: 03/26/2023 Outreach Attempt 1: Contact Made Date of Discharge 03/23/2023 Some recent data might be hidden SUMMARY: -Pt discharged from [facility] on 03/23/23. -Admitted for: Aspiration Pneumonia Do you have a hospital follow up appointment with your PCP? Appointment on 04/02/23 with Zandra Knowles. Yes. Remind patient of appointment date, time, and location. If not within 14 calendar days of discharge - please reschedule accordingly. MEDICATIONS: Many patients have questions or concerns about their medications once they are home. Were you prescribed any new medications? No Were you told to hold any medications? No Were any of your medications discontinued? No Do you have any questions about getting or taking your medications? No Your discharge instructions/After visit Summary (AVS) are important in guiding you through the recovery process. Is there anything I might help you understand? No Do you have all the necessary equipment and supplies at home? No, follow site specific process to secure durable medical equipment and/or supplies for the patient, handoff to RN/MARINE PIPEFITTER HELPER, or LIP Need a narrow wheel chair and and attachment to hold an O2 tank Medical records from recent hospitalization: Will need to get records from [facility]. [facility] 03-26-2023 Note Patient Outreach (FA MPWS) SERENITY DUMONT ([id number]) 1945 Alejandro Date Time Provider Department 03/26/23 Alejandro LIU During your visit today, we recorded the following information about you: Kimberly Walker LPN 03/28/2023 4:35 PM Signed TRANSITION CARE MANAGEMENT (TCM) INITIAL CONTACT Phot[employer] Stereo Compiler Outreach Provider Action/FYI: Regarding Omeprazole can not use the capsules they do not dissolve. when opening up they are styrofoam. Christiane has am OTC 20 mg of Omeprazole tablet that melts in water. she dissolves in a little water and puts thru the feeding tube, She is going to continue what she is doing unless you can come up with something else. Initial contact with patient post discharge, spoke to Significant other for 17 years and caregiver. Patient identified by name and . TRANSITION CARE MANAGEMENT INITIAL OUTREACH DOCUMENTATION: Date of Outreach: 03/26/2023 Outreach Attempt 1: Contact Made Date of Discharge 03/23/2023 Some recent data might be hidden SUMMARY: -Pt discharged from [facility] on 03/23/23. -Admitted for: Aspiration Pneumonia Do you have a hospital follow up appointment with your PCP? Appointment on 04/02/23 with Zandra Knowles. Yes. Remind patient of appointment date, time, and location. If not within 14 calendar days of discharge - please reschedule accordingly. MEDICATIONS: Many patients have questions or concerns about their medications once they are home. Were you prescribed any new medications? No Were you told to hold any medications? No Were any of your medications discontinued? No Do you have any questions about getting or taking your medications? No Your discharge instructions/After visit Summary (AVS) are important in guiding you through the recovery process. Is there anything I might help you understand? No Do you have all the necessary equipment and supplies at home? No, follow site specific process to secure durable medical equipment and/or supplies for the patient, handoff to RN/MARINE PIPEFITTER HELPER, or LIP Need a narrow wheel chair and and attachment to hold an O2 tank Medical records from recent hospitalization: Will need to get records from [facility]. Alejandro Liu PA-C 03/28/2023 4:35 PM Signed I am fine with OTC melt option. Again, I did send a liquid option- see prior messages (no one acknowledged this). Thanks, Edwin Liu PA-C Allergies As of Date: 03/26/2023 Noted Allergy Reaction SUDAFED (PSEUDOEPHEDRINE HCL) 12/29/2015 14 - Other: See Comments Comments: Causes testicle pain Date Reviewed: 02/25/2023 Reviewed by: Rona Thao Ma - Fully Assessed Reason for Visit: Transition Of Care [4074] Prescriptions as of 03/28/2023 - omeprazole-sodium bicarbonate (KONVOMEP) 2-84 mg/mL oral suspension Take 20 mL by mouth once daily. Shake well before each use. - amiodarone (PACERONE) 200 mg tablet Take 1 tablet by mouth once daily. - ELIQUIS 2.5 mg tab(s) Take 1 tablet by mouth two times a day. - carvedilol (COREG) 3.125 mg tablet Take 1 tablet by mouth every 12 (twelve) hours. - furosemide (LASIX) 40 mg tablet Take 1 tablet by mouth every afternoon. - GQWKUHmxbnqqe-LZ-uuzyHMDzoit 2.5-5-50 mg/5 mL liqd dextromethorphan hydrobromide 1 mg/ml / guaiFENesin 10 mg/ml / phenylephrine hydrochloride 0.5 mg/ml oral solution - budesonide (PULMICORT) 0.5 mg/2 mL nebulizer solution USE 1 VIAL (2 ML) VIA NEBULIZER TWICE A DAY - ipratropium-albuterol (DUONEB) 0.5 mg-3 mg(2.5 mg base)/3 mL nebu USE 3 ML VIA NEBULIZER EVERY 4 HOURS NEEDED FOR SHORTNESS OF BREATH OR WHEEZING - lidocaine-prilocaine (EMLA) 2.5-2.5 % cream APPLY 50 GRAMS TOPICALLY ONCE DIRECTED - prednisoLONE sodium phosphate (ORAPRED) 15 mg/5 mL (3 mg/mL) oral liquid 15 mg by ORAL/FEEDING TUBE route once daily. - ondansetron orally disintegrating (ZOFRAN ODT) 4 mg disintegrating tablet Take 1 tablet by mouth every 8 hours as needed for nausea/vomiting. - midodrine (PROAMITINE) 5 mg tablet Take 1 tablet by mouth three times daily with meals. - nystatin (MYCOSTATIN) 100,000 unit/mL suspension Take 5 mL by mouth four times daily. - DIEGO-DAY GASTROSTOMY TUBE 1 Each by MISCELLANEOUS route once daily. 20 Fr, 4.0cm - gabapentin (NEURONTIN) 250 mg/5 mL solution 300 mg twice daily. 6ml twice a day PEG tube - PHOS-NAK 280-160-250 mg pwpk 1 Packet once daily. PEG tube - oxyCODONE (ROXICODONE) 5 mg/5 mL oral solution Take 6 mg by mouth twice daily. - levothyroxine (SYNTHROID) 50 mcg tablet Take 50 mcg by mouth once daily. 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 [facility] 03-13-2023 Miscellaneous Notes Patient received rx in [facility] Dafne Coy Ma Patient caregiver calling back to request these be sent as soon as possible. Patientcaregiver and patient only has two days of medication left. Patient has been identified by name and date of : Yes Requested Prescriptions Pending Prescriptions Disp Refills amiodarone (PACERONE) 200 mg tablet Sig: Take 1 tablet by mouth once daily. ELIQUIS 2.5 mg tab(s) Sig: Take 1 tablet by mouth every 12 hours. Patient's caregiver is asking if medication omeprazole (PRILOSEC) 40 mg capsule comes in liquid or comes in a form where medication would melt on his tongue. RX INSTRUCTIONS: Patient aware RX will be sent to pharmacy. No need to notify patient. Samreen Muhammad documented in this encounter [facility] 02-26-2023 Miscellaneous Notes Faxed to [facility] with note to update whole [facility] system Spoke with Christiane. Will reach out to [facility] to see where letter needs to be faxed to. Rona Thao Ma Letter written, on nursing desk. Thanks, Edwin Liu PA-C Pts called in and reports she called [facility] and asked them to update her husbands code status. She said she talked to a [employer] Supervisor named Stacey and was told that Pts PCP needs to write and sign a letter with the code status and limitations. Christiane said they had talked with Edwin TRAORE about having her be a full code, but without chest compressions. She is asking if provider would write and sign this letter and send it to [facility]. Please call and let know once done. documented in this encounter [facility] 02-25-2023 Note HNO ID: [id number] Author: Alejandro Liu PA-C Service: ? Author Type: Physician Learning Disabilities Teacher Type: Progress Notes Filed: 02/25/2023 6:38 PM Note Text: 77 year old male with c/o multiple hospitalizations Facility 01/13/2023-01/14/2023 admitted through ER patient was brought in due to low O2 saturation though in ER 95% on 4 L at that time hemoglobin was 10.4, creatinine of 1.74, BUN at 61. Chest x-ray showed no changes from 12/13/2019. Patient was treated with IV fluids. Patient was found to atrial fibrillation with RVR first noted on 12/13/2022 ER visit. Subsequently discharged to transitional care unit 01/16/2023 - 01/18/2023 admitted with bacteremia with blood culture demonstrating GPR, treated with vancomycin and meropenem over 5 days. Also had acute on chronic respiratory failure episodes of V. tach which were treated with amiodarone IV which was transitioned to p.o. Echo from 12/13/2022 demonstrated EF of 35 to 40% with global hypokinesia Again transferred to transitional care for rehab. 01/26/2023 - 01/29/2023 admitted with aspiration pneumonia from vomiting through his trach, was started on meropenem. With history of previous Klebsiella and Pseudomonas pneumonia earlier in the month consulted ID Dr. Jorge, with vancomycin discontinued and meropenem started. Patient had to be treated on 01/27/2023 CODE STATUS changed to DNR CC, intubated. With norepinephrine due to low blood pressure, chronically on midodrine to maintain blood pressure, was given hydration. Also had recurrent vomiting, thrush, diarrhea. 01/28/2023 was able to discontinue Levophed, continue midodrine for low blood pressure. Was started on nystatin swish and swallow but changed to fluconazole through G-tube for thrush. Discharged to transitional care unit. 01/29/2023 - 02/13/2023 in TCU, discharged the following diagnoses: 1. Debility 2. Acute on chronic respiratory failure 3. Aspiration pneumonia resolved 4. Chronic hypotension 5. Acute hypotension resolved 6. Thrush acute with candidal stomatitis 7. Recurrent vomiting 8. Atrial fibrillation 9. COPD 10. Heart failure with reduced ejection fraction acute 11. Neuropathic pain 12. Hypothyroidism Patient underwent PT/OT, pain management consult DVT prophylaxis on Eliquis Nutritional status with moderate to severe protein calorie malnutrition treated with Jevity 1.5, 300 mL 4 times daily Atrial fibrillation treated with amiodarone 200 mg p.o. twice daily, Eliquis 2.5 mg p.o. twice daily COPD treated with budesonide 0.5 mg p.o. twice daily, DuoNebs every 4 hours as needed #180/6 every 4 hours as needed Iron deficiency anemia treated with ferrous sulfate Thrush treated with fluconazole 100 mg daily 05/18/2022 Neuropathic pain treated with gabapentin 300 mg twice a day Cough treated with Robitussin 10 mL every 4 hours Hypothyroidism treated with levothyroxine 50 mcg/day Skin irritation treated with Calmoseptine topical daily Aspiration pneumonia treated with meropenem IV 1 g every 8 hours 05/18/2022 Orthostatic hypotension treated with midodrine 15 mg 3 times daily Gastroesophageal reflux treated with pantoprazole 20 mg daily Dehydration treated with normal saline IV boluses Saturday and Saturday Weight 65.907 kg BMI discharge 23.8 kg 02/13/2023 CBC: WBC 5.7-Hgb 8.4-HCT 28.4-PLT 207 02/13/2023 chemistry profile: NA 140-CL 107-K4.4-CO2 34.0 H-BUN 25 H-CRE 1.44H-GLU 79 SARS-CoV-2 antigen tested 02/06/2023, 02/03/2023, 01/31/2023 are all negative. Weightbearing status as tolerated Discharged to home with home health care for PT/OT/SN Follow-up with [facility] New medications: Amiodarone 200 mg G-tube daily, #30/0 Eliquis 5 m.5 mg G-tube twice daily, #30/0 Midodrine 5 mg tablet: 15 mg G-tube 3 times daily, #270/0 Continued medications: Amiodarone G-tube daily, #30/0 Eliquis 5 mg 2.5 mg G-tube twice daily, #30/0 Midodrine 5 mg G-tube 3 times daily, #270/0 Jevity 1.5-calorie 0.06 g - 1.5 kcal/mL: 300 mL G-tube Budesonide 0.5 mg per 2 mL suspension nebulizer twice daily, #120/6 Ipratropium-albuterol 0.5 mg - 3 mg every 4 hours as needed, #180/6 Gabapentin 300 mg capsule feeding tube twice daily, #60/11 Discontinue medications: Amiodarone 200 mg tablet daily midodrine 5 mg, 2.5mg times a day Menthol zinc oxide ointment Eliquis 2.5 mg twice daily Guaifenesin Fluconazole Current status Doing well Weight up to 144 lbs Up walking some, clears secretions before tube feeds which seems to help. Continues Jevity Denies pain. Notes some swelling in left posterior elbow from IV infiltration: no erythema, or tenderness. concerned about midodrine dosage but maintain BP well and patient feels better. Also concerned about pulmonary side effects of amiodorone: review incidence, not likely to start immediately, can discuss with cardiology next week. Needs new mattres (more content not included)... [facility] 02-20-2023 Miscellaneous Notes Brad with [facility] PT calling with plan of care for patient. PT will see patient 2 times per week for 3 weeks for functional mobility. No call back needed if provider agreeable. Mary Chavarria RN documented in this encounter [facility] 02-08-2023 Miscellaneous Notes Lizzy notified. Hermes Don Yes. Thanks, Edwin Liu PA-C Lizzy with [facility] called in and reports Pt is being discharged from TCU on Saturday. The Pt was in because he has a correction trach and he vomited through it. Pt has aspiration pneumonia, hypoxia, and respiratory failure. They are asking if the provider will follow for PT/OT/SN. documented in this encounter [facility] 01-16-2023 Miscellaneous Notes Detailed message left on secure voicemail for Malathi notifying her of provider response. Malathi only to return call /c any questions or concerns. Hermes Don LPN Dr. Max Michelle has managed these orders in the past in the past. Thanks, Edwin Liu PA-C Malathi with [facility] is calling for order for the pt for the followin) Pt has PEG tube-need orders for when tube feed is given. 2) Orders for trach care. Fax to [facility]. Reyna Valencia LPN documented in this encounter [facility] 01-14-2023 Miscellaneous Notes Left detailed message for Malathi. Yes, I am willing Thanks, Edwin Liu PA-C Malathi, nurse @ [facility] calling to let PCP know patient is being discharged from [facility] today with home health orders for nursing, PT/OT. He was hospitalized for A fib with rapid RVR, dehydration and failure to thrive. Home health plans start of care on 01/16/23. Agree and willing to follow orders? May leave verbal okay on secure ph # [phone]. Inessa Moreau, RN documented in this encounter [facility] 12-27-2022 Note HNO ID: [id number] Author: Alejandro Liu PA-C Service: ? Author Type: Physician Learning Disabilities Teacher Type: Progress Notes Filed: 12/28/2022 11:04 AM Note Text: 77 year old male with c/o follow up Hospital discharge follow up Facility Admission date 12/13/2022 Discharge date 12/18/2022 12/12/2022 presented emergency department with complaint of progressive dyspnea on exertion, worsening over the last week, fever of 100.1 F. Occasional cough with sputum production. Weak all over. Getting IV infusion for fluids twice a week to maintain hydration. History of metastatic hypopharyngeal cancer stage IV, under treatment with Dr. Max, previously treated with Erbitux, cisplatin 5-FU with radiation therapy with disease progression necessitating addition of Keytruda in 2016. Patient has history as noted previously of metastatic disease in the lung and lymph nodes since 02/06/2022, history of recurrent UTI, urinary catheterization status post TURP 04/20/2022 and recurrent episode with multifocal pneumonia, maintained on low-dose steroids. Known chronic aspiration, dysphagia, severe protein calorie malnutrition. In ER vital signs 0.3 3-168-14-105/71-94% O2 on 6 L/min. CBC: WBC 7.8-Hgb 11.3-HCT 38.0-PLT 196. Differential: 83.2% neutrophils, 10.8 lymphs with normal count/absolute neutrophil and absolute lymphs. No nucleated RBCs. PT, INR WNL. APTT Chemistries: Abnormals include chloride at 114-BUN 38-CRE 1.64, EGFR 44, BUN/creatinine ratio 23.2-GLU 124-CA 7.9L. Lactic acid 1.2 Chest x-ray 1 view: Unchanged with bibasilar airspace disease. CTA PE chest: No evidence of PE or dissection. Mucus plugging in lower lobe bronchus, bilateral patchy airspace consolidations predominantly in the dependent locations of both lungs concerning for secondary pneumonia. Other scattered central and peripheral nodular opacities are nonspecific, likely infectious given larger consolidations. CT follow-up recommended after treatment to exclude underlying malignancy. Patient was given IV fluids, initially had SVT with a rate in the 170s, converted to normal sinus in the 120s. Fluctuated between the 2 intermittently. Patient blood pressure dropped into the 90s but identifies that he had earlier vomited up his midodrine. Blood pressure improved with fluids. Patient was given IV Rocephin, Zithromax, and vancomycin. Admitted. Admission assessment and plan : #1 acute chronic hypoxic respiratory failure secondary to pneumonia, possible GN/GP organism with prior MRSA noted on sputum 08/17/2022 with concurrent acute on chronic COPD exacerbation. Patient was admitted to PCU, to remain on oxygen weaning as tolerated, continue ATC budesonide given tachycardia, as needed albuterol, IV Solu-Medrol, IV Zosyn and vancomycin with pending sputum culture with MRSA screen and sputum if able. Also tested for viral and urine antigens, blood cultures x2 drawn in ER. Went to PT/OT/ST/nutrition/CM for discharge planning. Consult to Dr. Polo pulmonary. 2. SVT with eventual conversion to sinus tachycardia believed to be related to acute infectious presentation aerosol needs. If blood pressure allows IV Cardizem bolus and or drip, magnesium and phosphorus levels, TSH and free T4 also requested. Echo ordered. Maintained on cardiac telemetry and cycle cardiac enzymes additionally. 3. History of metastatic hypopharyngeal cancer stage IV originally diagnosed 08/2016 status post tracheostomy/G-tube treated with Erbitux, cisplatin and 5-FU with radiation therapy with continued disease progression, initiated on Keytruda 2015 with 2016 PET scan noted with reasonable response of previously noted metastatic disease in lung/lymph nodes with Keytruda held on 02/06/2022 secondary to UTI, urinary retention following with Dr. Sabillon oncology. 4. Chronic aspiration: N.p.o. status with G-tube usage, continues G-tube feeds at home. Maintain head of bed for aspiration precautions. 5. Chronic microcytic anemia with hemoglobin 11.3, MCV 104.4 with baseline hemoglobin ranging between 11-13. Continue to trend. 6. Chronic kidney disease stage III unclear subtype with admission BUN/creatinine 38/1.64 with baseline creatinine 1.4-1.6, repeat BMP as needed. 7. Chronic multifocal pneumonitis, following with Dr. Polo, temporarily hold prednisone and give IV Solu-Medrol 8. Hypothyroidism: Continue levothyroxine, TSH and T4 pending 9. Chronic neuropathy: Continue gabapentin 10. Orthostasis: Fall precautions, can do midodrine regimen 11. Severe protein malnutrition evidenced by greatly reduced BMI, muscle and fat loss, cachexia. Consult placed with nutrition for G-tube feeding magnesium phosphorus levels requested. 12. Former tobacco use: Continue continue cessation 13. Gastroesophageal reflux: Continue home PPI 14. BPH with history of urinary retention issues status post TURP on 04/20/2019 1 (more content not included)... [facility] 12-27-2022 History of Presen t illness Narrative 77 year old male with c/o follow up Hospital discharge follow up Facility Admission date 12/13/2022 Discharge date 12/18/2022 12/12/2022 presented emergency department with complaint of progressive dyspnea on exertion, worsening over the last week, fever of 100.1 F. Occasional cough with sputum production. Weak all over. Getting IV infusion for fluids twice a week to maintain hydration. History of metastatic hypopharyngeal cancer stage IV, under treatment with Dr. Max, previously treated with Erbitux, cisplatin 5-FU with radiation therapy with disease progression necessitating addition of Keytruda in 2016. Patient has history as noted previously of metastatic disease in the lung and lymph nodes since 02/06/2022, history of recurrent UTI, urinary catheterization status post TURP 04/20/2022 and recurrent episode with multifocal pneumonia, maintained on low-dose steroids. Known chronic aspiration, dysphagia, severe protein calorie malnutrition. In ER vital signs 0.3 5-696-62-105/71-94% O2 on 6 L/min. CBC: WBC 7.8-Hgb 11.3-HCT 38.0-PLT 196. Differential: 83.2% neutrophils, 10.8 lymphs with normal count/absolute neutrophil and absolute lymphs. No nucleated RBCs. PT, INR WNL. APTT Chemistries: Abnormals include chloride at 114-BUN 38-CRE 1.64, EGFR 44, BUN/creatinine ratio 23.2-GLU 124-CA 7.9L. Lactic acid 1.2 Chest x-ray 1 view: Unchanged with bibasilar airspace disease. CTA PE chest: No evidence of PE or dissection. Mucus plugging in lower lobe bronchus, bilateral patchy airspace consolidations predominantly in the dependent locations of both lungs concerning for secondary pneumonia. Other scattered central and peripheral nodular opacities are nonspecific, likely infectious given larger consolidations. CT follow-up recommended after treatment to exclude underlying malignancy. Patient was given IV fluids, initially had SVT with a rate in the 170s, converted to normal sinus in the 120s. Fluctuated between the 2 intermittently. Patient blood pressure dropped into the 90s but identifies that he had earlier vomited up his midodrine. Blood pressure improved with fluids. Patient was given IV Rocephin, Zithromax, and vancomycin. Admitted. Admission assessment and plan : #1 acute chronic hypoxic respiratory failure secondary to pneumonia, possible GN/GP organism with prior MRSA noted on sputum 08/17/2022 with concurrent acute on chronic COPD exacerbation. Patient was admitted to PCU, to remain on oxygen weaning as tolerated, continue ATC budesonide given tachycardia, as needed albuterol, IV Solu-Medrol, IV Zosyn and vancomycin with pending sputum culture with MRSA screen and sputum if able. Also tested for viral and urine antigens, blood cultures x2 drawn in ER. Went to PT/OT/ST/nutrition/CM for discharge planning. Consult to Dr. Polo pulmonary. 2. SVT with eventual conversion to sinus tachycardia believed to be related to acute infectious presentation aerosol needs. If blood pressure allows IV Cardizem bolus and or drip, magnesium and phosphorus levels, TSH and free T4 also requested. Echo ordered. Maintained on cardiac telemetry and cycle cardiac enzymes additionally. 3. History of metastatic hypopharyngeal cancer stage IV originally diagnosed 08/2016 status post tracheostomy/G-tube treated with Erbitux, cisplatin and 5-FU with radiation therapy with continued disease progression, initiated on Keytruda 2015 with 2016 PET scan noted with reasonable response of previously noted metastatic disease in lung/lymph nodes with Keytruda held on 02/06/2022 secondary to UTI, urinary retention following with Dr. Sabillon oncology. 4. Chronic aspiration: N.p.o. status with G-tube usage, continues G-tube feeds at home. Maintain head of bed for aspiration precautions. 5. Chronic microcytic anemia with hemoglobin 11.3, MCV 104.4 with baseline hemoglobin ranging between 11-13. Continue to trend. 6. Chronic kidney disease stage III unclear subtype with admission BUN/creatinine 38/1.64 with baseline creatinine 1.4-1.6, repeat BMP as needed. 7. Chronic multifocal pneumonitis, following with Dr. Polo, temporarily hold prednisone and give IV Solu-Medrol 8. Hypothyroidism: Continue levothyroxine, TSH and T4 pending 9. Chronic neuropathy: Continue gabapentin 10. Orthostasis: Fall precautions, can do midodrine regimen 11. Severe protein malnutrition evidenced by greatly reduced BMI, muscle and fat loss, cachexia. Consult placed with nutrition for G-tube feeding magnesium phosphorus levels requested. 12. Former tobacco use: Continue continue cessation 13. Gastroesophageal reflux: Continue home PPI 14. BPH with history of urinary retention issues status post TURP on 04/20/2019 15. DVT prophylaxis with identifying CODE STATUS DNR CCA, no intubation but patient asking to remain full code Consultation otolaryngology teacher Lamia Alijundi: Recommended 7 to 10 days of antibiotic. Sputum culture advised growing Klebsiella and MRSA, Legionella and strep antigens were negative. Wean oxygen as possible to 6 to 8 L. Continue nebulizers DuoNebs and budesonide and Solu-Medrol 40 mg every 8 hours Hospital course: Discharge date 12/18/2022: Discharge diagnoses: 1. Acute pneumonia unspecified organism lower lobes methicillin-resistant Staph aureus culture Patient was transitioned to Levaquin and p.o. prednisone for another 5 days. 2. Acute systolic congestive heart failure exacerbated with PT, With RVR. Started on low-dose Coreg but did not tolerate Cardizem drip. Recommended continuing midodrine for blood pressure support. 2D echo demonstrated EF of 35 to 40% with moderate LV dysfunction and global LV-no significant valvular abnormality Patient was started on furosemide with consultation placed cardiology. Was able to tolerate low-dose Coreg for his atrial fib, placed on Eliquis on discharge, Lasix on discharge given systolic dysfunction: Hopefully will be able to get off outpatient follow-up with cardiology. 3. 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 Chronic pain syndrome: Stable on gabapentin. 5. Hypothyroidism stable, 6. Gastroesophageal reflux stable: 7. Chronic urinary retention secondary BPH status post TURP 12/13/2022 echocardiogram [facility]: LV mildly dilated, estimated EF 35 to 40%, global hypokinesis RV normal, normal systolic Bilateral atria normal size. MV structurally normal, trivial MVi TV not well visualized AV mild diffuse aortic valve calcification PV Not well visualized Aorta not well visualized. No pericardial effusion. Discharge weight 132 pounds 15.02 ounces mass index 19.0 Discharge labs: CBC: WBC 7.1-Hgb 12.0-HCT 39.1-PLT 204 Chemistries: NA 140-CL 107-K3.7-CO2 29.0- BUN 38-CRE 1.18- GLU 211 BUN to creatinine ratio 32.2. Microbiology: 12/12/2022 blood cultures x2 no growth x5 days 12/12/2022 sputum tracheal aspirate at: Klebsiella pneumonia, methicillin-resistant Staph aureus. 12/12/2022 nasal secretion SARS COVID-negative 12/13/2022 urine random colon negative 12/13/2022 sputum culture and Gram stain: Pseudomonas aeruginosa Klebsiella pneumonia, methicillin-resistant Staph aureus 12/13/2022 nasal mucosa respiratory panel final negative Medication reconciliation: New medications: Eliquis 5 mg p.o.: 2.5 mg twice daily #30/0 Prednisone 20 mg 40 mg daily #14/0 Carvedilol p.o. twice daily #60/0 Furosemide 40 mg p.o. daily #30/0 Levofloxacin 500 mg tablet daily #5/0 Continue medications: Guaifenesin 200 mg per 5 mL solution 400 mg p.o. every 6 hours #473 mL/6 Omeprazole 20 mg capsule delayed release 20 mg p.o. daily Prednisolone sodium phosphate 15 mg per 5 mL 50 mg p.o. daily #250/4 Avastin 25 mg/mL solution: 25 mg intravitreal monthly Lactose reduced food with fiber to 37 mL liquid every 4 hours Midodrine 5 mg tablet feeding tube 3 times daily: Do not give last dose of the day after 6 PM or within 4 hours of bedtime Levothyroxine 50 mcg tablet daily #90/5 Budesonide 0.5 mg / 2 mL suspension for nebulizer twice daily #120/6 Ipratropium-albuterol 0.5 mg - 3 mg 3 mL solution for nebulizer every 4 hours as needed #180/6 Robitussin: Cough CF two-point 5 - 5 - 50 mg per 5 mL: 50 mL every 4 hours as needed 118/1 Ondansetron 8 mg tablet disintegrating every 8 hours as needed #30/0 Gabapentin 300 mg feeding tube twice daily #60/11 Lidocaine-primary can 2.5-2.5% cream 50 g topical once daily #30/3 Discontinue medications: Sulfamethoxazole trimethoprim Continues on Jevity Follow-ups: LEÓN Foster cardiology 01/15/2023 9:30 AM No energy Cough has gotten. Mood so-so, smiling. says crotchety. Breathing okay , not pain. No expectoration. Has fallen a couple times from being dizzy, thinks from medication given to help him tolerate augmentin previously. Bowels were pretty good. Last BM 2 days ago. HISTORIES FAMILY HISTORY Problem Relation Age of Onset Hypertension Mother Hypertension Father Colon Cancer Father PAST MEDICAL HISTORY Diagnosis Date Hypothyroidism Lung cancer (HCC) Neuropathy Pulmonary emphysema (HCC) 01/02/2016 Throat cancer (HCC) PAST SURGICAL HISTORY Procedure Laterality Date PAST SURGICAL HISTORY OF Right 04/08/2014 port placement PAST SURGICAL HISTORY OF PEG TUBE 12/08/2015 PORT 02/01/2016 removed 01/08/2022 PORT 01/17/2022 at TRACHEOSTOMY (SPECIFY) 04/08/2014 Social History Tobacco Use Smoking status: Some Days Smokeless tobacco: Former Vaping Use Vaping Use: Never used Substance Use Topics Alcohol use: No Comment: used to drink on occasion, but no longer Drug use: No ACTIVE PROBLEM LIST Laryngeal Cancer (Hcc) Pulmonary Emphysema (Hcc) Peg (Percutaneous Endoscopic Gastrostomy) Status (Hcc) Tracheostomy in Place (Hcc) Protein-Calorie Malnutrition (Hcc) Lung Infiltrate On CT Secondary Malignant Neoplasm of Left Lung (Hcc) Chronic Renal Failure, Stage 3a (Hcc) Hypothyroidism, Acquired Anemia Due to Stage 3a Chronic Kidney Disease (Hcc) Abnormal Serum Protein Electrophoresis Chemotherapy-Induced Peripheral Neuropathy (Hcc) Acute Adrenal Insufficiency (Hcc) Encounter for Support and Coordination of Transition of Care Current Outpatient Medications Medication Sig Dispense Refill ELIQUIS 2.5 mg tab(s) Take 1 tablet by mouth every 12 (twelve) hours. carvedilol (COREG) 3.125 mg tablet Take 1 tablet by mouth every 12 (twelve) hours. furosemide (LASIX) 40 mg tablet Take 1 tablet by mouth every afternoon. OKEHTUpmatbuk-JO-paooALVmcxb 2.5-5-50 mg/5 mL liqd dextromethorphan hydrobromide 1 mg/ml / guaiFENesin 10 mg/ml / phenylephrine hydrochloride 0.5 mg/ml oral solution omeprazole (PRILOSEC) 20 mg capsule Take 20 mg by mouth once daily. budesonide (PULMICORT) 0.5 mg/2 mL nebulizer solution USE 1 VIAL (2 ML) VIA NEBULIZER TWICE A DAY ipratropium-albuterol (DUONEB) 0.5 mg-3 mg(2.5 mg base)/3 mL nebu USE 3 ML VIA NEBULIZER EVERY 4 HOURS NEEDED FOR SHORTNESS OF BREATH OR WHEEZING lidocaine-prilocaine (EMLA) 2.5-2.5 % cream APPLY 50 GRAMS TOPICALLY ONCE DIRECTED prednisoLONE sodium phosphate (ORAPRED) 15 mg/5 mL (3 mg/mL) oral liquid 15 mg by ORAL/FEEDING TUBE route once daily. ondansetron orally disintegrating (ZOFRAN ODT) 4 mg disintegrating tablet Take 1 tablet by mouth every 8 hours as needed for nausea/vomiting. 30 tablet 1 midodrine (PROAMITINE) 5 mg tablet Take 1 tablet by mouth three times daily with meals. 90 tablet 5 nystatin (MYCOSTATIN) 100,000 unit/mL suspension Take 5 mL by mouth four times daily. DIEGO-DAY GASTROSTOMY TUBE 1 Each by MISCELLANEOUS route once daily. 20 Fr, 4.0cm 2 Each 5 gabapentin (NEURONTIN) 250 mg/5 mL solution 300 mg twice daily. 6ml twice a day PEG tube PHOS-NAK 280-160-250 mg pwpk 1 Packet once daily. PEG tube levothyroxine (SYNTHROID) 50 mcg tablet Take 50 mcg by mouth once daily. oxyCODONE (ROXICODONE) 5 mg/5 mL oral solution Take 6 mg by mouth twice daily. (Patient not taking: Reported on 12/27/2022) No current facility-administered medications for this visit. Pneumococcal Vaccine: 65+(1 - PCV) Never done Spirometry Never done Hepatitis C Screening Never done Serum Creatinine Never done DTaP,Tdap,Td Vaccine(1 - Tdap) Never done Alpha-1 Antitrypsin Deficiency Screening Never done Lipid Screening Never done Shingrix Vaccine(1 of 2) Never done Hemoglobin/Hematocrit due on 01/31/2021 Covid-19 Vaccine(4 - Pfizer series) due on 05/08/2021 Advance Directive Discussion Never done Depression Assessment Never done Diabetes Screening due on 11/08/2022 Influenza Vaccine(1) due on 12/07/2022 EXAM: BP 90/56 Pulse 84 SpO2 94% Pleasant thins adult man in no acute distress. Alert and oriented all spheres. Normal affect and cognition. Speech normal. No deficits to learning or comprehension. Skin warm, dry, pink to lips and nailbeds. Normal turgor, skin is loose due to weight loss. Apparently fell trying to get himself in W/C, skinned up both anterior skins and right anterior knee with superficial abrasions. Respirations regular and unlabored. HEENT: NCAT. No scleral icterus or conjunctival injection. TM's clear. Nose and oropharynx free from injection or lesion. Oral membranes moist and pink. No cervical lymph nodes. Thyroid non-tender, no masses, or enlargement. Carotids pulses 2+/4+ without bruits. No JVD with HOB at 30 degrees. Chest is normal shape. Lungs are clear to all russell with good air exchange through out. HRRR without murmur or gallop. No lifts, heaves, or rubs. Abdomen: scaphoid, active bowel sounds throughout, soft, nontender, no masses or organomegaly. No CVAT. Extrem: no clubbing, cyanosis, edema. Distal pulses 2+/4, prompt capillary refill. Neuro: no focal deficits. Able to stand on his own, somewhat unsteady but able ASSESSMENT/PLAN: 1. Hospital discharge follow-up - ICD9: V67.59, ICD10: Z09 (primary diagnosis) Medications reconciled. Problem list updated. Reviewed follow up appointments with patient and . ASSESSMENT/PLAN: 2. Acute on chronic respiratory failure with hypoxemia (HCC) - ICD9: 518.84, ICD10: J96.21 Resolved with hospital treatment 3. bilateral pneumonia MRSA - ICD9: 486, ICD10: J18.9 Chronic pneumonitis 4. Chronic pulmonary aspiration, sequela - ICD9: 908.5, ICD10: T17.908S G-tube feeding, no oral 5. Laryngeal cancer (HCC) - ICD9: 161.9, ICD10: C32.[address] Tiwari 6. Secondary malignant neoplasm of left lung (HCC) - ICD9: 197.0, ICD10: C78.[address] Max, metastatic hypopharyngeal cancer stage IV, previously treated with Erbitux, cisplatin 5-FU with radiation therapy with disease progression necessitating addition of Keytruda in 2016. Patient has history as noted previously of metastatic disease in the lung and lymph nodes since 02/06/2022 7. Tracheostomy present (HCC) - ICD9: V44.0, ICD10: Z93.0 8. Acute systolic CHF (congestive heart failure) (HCC) - ICD9: 428.21, 428.0, ICD10: I50.21 - New diagnosis Resolved with treatment exacerbating factors 9. Dilated cardiomyopathy (HCC) - ICD9: 425.4, ICD10: I42.0 10. Ventricular hypokinesis, global - ICD9: 429.89, ICD10: I51.89 11. SVT (supraventricular tachycardia) (HCC) - ICD9: 427.89, ICD10: I47.1 12. Chronic atrial fibrillation (HCC) - ICD9: 427.31, ICD10: I48.20 13. Chronic anticoagulation - ICD9: V58.61, ICD10: Z79.01 New arrhythmia issues. Started on anticoagulation- refreshed on cautions and risks. Has f/u with cardiology in 2 weeks 14. Orthostatic hypotension - ICD9: 458.0, ICD10: I95.1 On midodrine- severe issues otherwise 15. Severe protein-calorie malnutrition (HCC) - ICD9: 262, ICD10: E43 Reviewed by yard switcher with recommendsations for current support. asking why he can't have higher protein: reviewed tax auditor recommendations based on multiple calculations for global issues. 16. GERD without esophagitis - ICD9: 530.81, ICD10: K21.9 Stable on PPI, maintains elevated position at all time to reduce aspiration 17. Benign prostatic hyperplasia with incomplete bladder emptying - ICD9: 600.01, 788.21, ICD10: N40.1, R39.14 No recent issues with UTI, flow is okay on meds 18. Hypothyroidism, acquired - ICD9: 244.9, ICD10: E03.9 - Instructed patient on importance of taking on an empty stomach either first thing in the morning or at bedtime. - continue current dose of Synthroid c/o expense with G-tube insertion kit which is $135 out of pocket when all she needs is tube. Will direct to Dr. Zepeda office to see if there is an office staff who could help her with ordering supplies. Alejandro Liu PA-C documented in this encounter [facility] 11-13-2022 Miscellaneous Notes notified rx sent to pharmacy The following approved medication requests have been transmitted electronically. Requested Prescriptions Signed Prescriptions Disp Refills ondansetron orally disintegrating (ZOFRAN ODT) 4 mg disintegrating tablet 30 tablet 1 Sig: Take 1 tablet by mouth every 8 hours as needed for nausea/vomiting. Authorizing Provider: Alejandro LIU PA-C Patient's Caregiver Christiane calls and states the Dr. Max is on vacation. Christiane states that Dr. Max's assistant director of plant operations had prescribed patient amoxicillin-clavulanate due to CT scan showing possible pneumonia or aspiration pneumonitis. Christiane upset because testing was done on 11/09/2022 and she did not hear back from Dr. Max's office until 11/12/2022. Christiane upset that medication was prescribed due to patient having nausea and vomiting with medication. Christiane states that Dr. Max normally prescribes Zofran with this. Christiane thinks that they just want patient to go to ED. Christiane did state that she was told that patient could go to hospital to get medication or medication could be prescribed. Treating at home was chosen. Advised that Christiane needs to contact Dr. Max's office. Christiane states that she did but has not heard back from them and it was over an hour ago. Antibiotic has not been given yet. Christiane will not give antibiotic unless she has Zofran. Advised Christiane that if patient is becoming more short of breath then he needs to go to ED to be evaluated. Christiane voiced understanding. Please review and advise, Swati Banuelos RN documented in this encounter [facility] 06-29-2022 Note HNO ID: [id number] Author: Alejandro Liu PA-C Service: ? Author Type: Physician Learning Disabilities Teacher Type: Progress Notes Filed: 06/29/2022 2:46 PM Note Text: 77 year old male with c/o here for 3 months follow up 06/25/2022 follow-up consult with hematology oncology [facility], Jodi Holden, YVONNE: Notes indicate: 1. Secondary malignant neoplasm of left lung with Keytruda on hold because of urinary retention TURP, recent scan demonstrates stability of disease, thus pembrolizumab held. 2. Primary malignant neoplasm of hypopharynx chronic metastatic disease 3. Pneumonitis clinically improving: Continue oral prednisone 60 mg/day, stressed importance of GI prophylaxis with omeprazole, 7-day course of Levaquin to be completed. 4. Dehydration: Continue IV hydration Saturday and Saturday stressed importance of fluid intake especially with guaifenesin. Creatinine slightly elevated from baseline. 5. Oral candidiasis: Rx for liquid Diflucan given- nystatin wasn't helping. 06/21/2022 CTA chest with and without contrast: No CTA evidence of fistulous connection between innominate artery and trachea, stable appearance of tracheostomy tube. No demonstrated PE or thoracic aneurysm or dissection. Underlying emphysema with chronic bronchitis, bronchiectasis in the medial aspect of the left lower lobe, multifocal pneumonitis and pleural thickening bilateral pneumothoraces. Scattered subcentimeter short axis dimension mediastinal and perihilar lymph nodes, there is a soft tissue density in the subcarinal region but it contains enhancing vessels. Simple hepatic cyst nonspecific follow-up as needed. Underwent TURP, doing well. Chaves out. Voiding easily. Nocturia x 1. trying to push nutrition but can only do about 1 can in 4 hours, causes him to cough and choke. Significant improvement with oral candidiasis on diflucan. Discussed trach issues again. Did talk with Dr. Baumann but only gets 4/ year, needs to change more often. has numbers for trach type but needs rx. 06/25/2022 [facility] Labs: WBC 4.2-RBC 3.48-Hgb 11.1-HCT 35.7-MCV 102.6-absolute neutrophil 2.7, absolute lymphs 0.92. Chemistries within normal limits except: Chloride 108-BUN 48-CRE 1.63, EGFR 44, albumin 2.9, globulin 4.8, A/G ratio 0.6. TSH and free T4 are in normal limits. HISTORIES FAMILY HISTORY Problem Relation Age of Onset Hypertension Mother Hypertension Father Colon Cancer Father PAST MEDICAL HISTORY Diagnosis Date Hypothyroidism Lung cancer (HCC) Neuropathy Pulmonary emphysema (HCC) 01/02/2016 Throat cancer (HCC) PAST SURGICAL HISTORY Procedure Laterality Date PAST SURGICAL HISTORY OF Right 04/08/2014 port placement PAST SURGICAL HISTORY OF PEG TUBE 12/08/2015 PORT 02/01/2016 removed 01/08/2022 PORT 01/17/2022 at TRACHEOSTOMY (SPECIFY) 04/08/2014 Social History Tobacco Use Smoking status: Some Days Smokeless tobacco: Former Vaping Use Vaping Use: Never used Substance Use Topics Alcohol use: No Comment: used to drink on occasion, but no longer Drug use: No ACTIVE PROBLEM LIST Laryngeal Cancer (Hcc) Pulmonary Emphysema (Hcc) Peg (Percutaneous Endoscopic Gastrostomy) Status (Hcc) Tracheostomy in Place (Hcc) Protein-Calorie Malnutrition (Hcc) Lung Infiltrate On CT Secondary Malignant Neoplasm of Left Lung (Hcc) Chronic Renal Failure, Stage 3a (Hcc) Hypothyroidism, Acquired Anemia Due to Stage 3a Chronic Kidney Disease (Hcc) Abnormal Serum Protein Electrophoresis Secondary Peripheral Neuropathy Acute Adrenal Insufficiency (Hcc) Current Outpatient Medications Medication Sig Dispense Refill nystatin (MYCOSTATIN) 100,000 unit/mL suspension Take 5 mL by mouth four times daily. midodrine (PROAMITINE) 5 mg tablet Take 1 tablet by mouth three times daily with meals. 90 tablet 5 DIEGO-DAY GASTROSTOMY TUBE 1 Each by MISCELLANEOUS route once daily. 20 Fr, 4.0cm 2 Each 5 gabapentin (NEURONTIN) 250 mg/5 mL solution 250 mg twice daily. 6ml twice a day PEG tube finasteride (PROSCAR) 5 mg tablet Take 5 mg by mouth once daily. 5mg crushed daily through PEG PHOS-NAK 280-160-250 mg pwpk 1 Packet once daily. PEG tube oxyCODONE (ROXICODONE) 5 mg/5 mL oral solution Take 6 mg by mouth twice daily. levothyroxine (SYNTHROID) 50 mcg tablet Take 50 mcg by mouth once daily. No current facility-administered medications for this visit. PNEUMOCOCCAL: 65+(1 - PCV) Never done SPIROMETRY Never done HEPATITIS C SCREENING Never done SERUM CREATININE Never done DTAP,TDAP,TD(1 - Tdap) Never done SHINGRIX VACCINE(1 of 2) Never done ALPHA-1 ANTITRYPSIN DEFICIENCY SCREENING Never done LIPID SCREEN Never done HEMOGLOBIN/HEMATOCRIT due on 01/31/2021 COVID-19 VACCINE(4 - Booster for Pfizer series) due on 05/08/2021 INFLUENZA(1) due on 12/07/2021 ADVANCE DIRECTIVE DISCUSSION Never done DEPRESSION ASSESSMENT Never done EXAM: BP 96/64 Pulse 102 Resp 2 (more content not included)... [facility] 06-29-2022 History of Presen t illness Narrative 77 year old male with c/o here for 3 months follow up 06/25/2022 follow-up consult with hematology oncology [facility], Jodi Holden CNP: Notes indicate: 1. Secondary malignant neoplasm of left lung with Keytruda on hold because of urinary retention TURP, recent scan demonstrates stability of disease, thus pembrolizumab held. 2. Primary malignant neoplasm of hypopharynx chronic metastatic disease 3. Pneumonitis clinically improving: Continue oral prednisone 60 mg/day, stressed importance of GI prophylaxis with omeprazole, 7-day course of Levaquin to be completed. 4. Dehydration: Continue IV hydration Saturday and Saturday stressed importance of fluid intake especially with guaifenesin. Creatinine slightly elevated from baseline. 5. Oral candidiasis: Rx for liquid Diflucan given- nystatin wasn't helping. 06/21/2022 CTA chest with and without contrast: No CTA evidence of fistulous connection between innominate artery and trachea, stable appearance of tracheostomy tube. No demonstrated PE or thoracic aneurysm or dissection. Underlying emphysema with chronic bronchitis, bronchiectasis in the medial aspect of the left lower lobe, multifocal pneumonitis and pleural thickening bilateral pneumothoraces. Scattered subcentimeter short axis dimension mediastinal and perihilar lymph nodes, there is a soft tissue density in the subcarinal region but it contains enhancing vessels. Simple hepatic cyst nonspecific follow-up as needed. Underwent TURP, doing well. Chaves out. Voiding easily. Nocturia x 1. trying to push nutrition but can only do about 1 can in 4 hours, causes him to cough and choke. Significant improvement with oral candidiasis on diflucan. Discussed trach issues again. Did talk with Dr. Baumann but only gets 4/ year, needs to change more often. has numbers for trach type but needs rx. 06/25/2022 [facility] Labs: WBC 4.2-RBC 3.48-Hgb 11.1-HCT 35.7-MCV 102.6-absolute neutrophil 2.7, absolute lymphs 0.92. Chemistries within normal limits except: Chloride 108-BUN 48-CRE 1.63, EGFR 44, albumin 2.9, globulin 4.8, A/G ratio 0.6. TSH and free T4 are in normal limits. HISTORIES FAMILY HISTORY Problem Relation Age of Onset Hypertension Mother Hypertension Father Colon Cancer Father PAST MEDICAL HISTORY Diagnosis Date Hypothyroidism Lung cancer (HCC) Neuropathy Pulmonary emphysema (HCC) 01/02/2016 Throat cancer (HCC) PAST SURGICAL HISTORY Procedure Laterality Date PAST SURGICAL HISTORY OF Right 04/08/2014 port placement PAST SURGICAL HISTORY OF PEG TUBE 12/08/2015 PORT 02/01/2016 removed 01/08/2022 PORT 01/17/2022 at TRACHEOSTOMY (SPECIFY) 04/08/2014 Social History Tobacco Use Smoking status: Some Days Smokeless tobacco: Former Vaping Use Vaping Use: Never used Substance Use Topics Alcohol use: No Comment: used to drink on occasion, but no longer Drug use: No ACTIVE PROBLEM LIST Laryngeal Cancer (Hcc) Pulmonary Emphysema (Hcc) Peg (Percutaneous Endoscopic Gastrostomy) Status (Hcc) Tracheostomy in Place (Hcc) Protein-Calorie Malnutrition (Hcc) Lung Infiltrate On CT Secondary Malignant Neoplasm of Left Lung (Hcc) Chronic Renal Failure, Stage 3a (Hcc) Hypothyroidism, Acquired Anemia Due to Stage 3a Chronic Kidney Disease (Hcc) Abnormal Serum Protein Electrophoresis Secondary Peripheral Neuropathy Acute Adrenal Insufficiency (Hcc) Current Outpatient Medications Medication Sig Dispense Refill nystatin (MYCOSTATIN) 100,000 unit/mL suspension Take 5 mL by mouth four times daily. midodrine (PROAMITINE) 5 mg tablet Take 1 tablet by mouth three times daily with meals. 90 tablet 5 DIEGO-DAY GASTROSTOMY TUBE 1 Each by MISCELLANEOUS route once daily. 20 Fr, 4.0cm 2 Each 5 gabapentin (NEURONTIN) 250 mg/5 mL solution 250 mg twice daily. 6ml twice a day PEG tube finasteride (PROSCAR) 5 mg tablet Take 5 mg by mouth once daily. 5mg crushed daily through PEG PHOS-NAK 280-160-250 mg pwpk 1 Packet once daily. PEG tube oxyCODONE (ROXICODONE) 5 mg/5 mL oral solution Take 6 mg by mouth twice daily. levothyroxine (SYNTHROID) 50 mcg tablet Take 50 mcg by mouth once daily. No current facility-administered medications for this visit. PNEUMOCOCCAL: 65+(1 - PCV) Never done SPIROMETRY Never done HEPATITIS C SCREENING Never done SERUM CREATININE Never done DTAP,TDAP,TD(1 - Tdap) Never done SHINGRIX VACCINE(1 of 2) Never done ALPHA-1 ANTITRYPSIN DEFICIENCY SCREENING Never done LIPID SCREEN Never done HEMOGLOBIN/HEMATOCRIT due on 01/31/2021 COVID-19 VACCINE(4 - Booster for Pfizer series) due on 05/08/2021 INFLUENZA(1) due on 12/07/2021 ADVANCE DIRECTIVE DISCUSSION Never done DEPRESSION ASSESSMENT Never done EXAM: BP 96/64 Pulse 102 Resp 20 Wt 56.7 kg (125 lb) SpO2 94% BMI 17.94 kg/m Pleasant thin adult man in no acute distress. Alert and oriented all spheres. Normal affect and cognition. Speech normal. No deficits to learning or comprehension. Skin warm, dry, pink to lips and nailbeds. Normal turgor. Respirations regular and unlabored. HEENT: NCAT. No scleral icterus or conjunctival injection. TM's clear. Nose and oropharynx free from injection or lesion. Oral membranes much improved from last visit. Mild white plaque in central tongue. No cervical lymph nodes. Thyroid non-tender, no masses, or enlargement. Carotids pulses 2+/4+ without bruits. No JVD with HOB at 30 degrees. Chest is normal shape. Lungs are clear to all russell with good air exchange through out. HRRR without murmur or gallop. No lifts, heaves, or rubs. Extrem: no clubbing or cyanosis. Edema: none. Extremities are warm and pink with prompt capillary refill. ASSESSMENT/PLAN: 1. Laryngeal cancer (HCC) - ICD9: 161.9, ICD10: C32.9 (primary diagnosis) 2. Secondary malignant neoplasm of left lung (HCC) - ICD9: 197.0, ICD10: C78.02 Stable, foolowing with Dr. Max 3. Pneumonitis - ICD9: 486, ICD10: J18.9 4. Bronchiectasis with acute lower respiratory infection (HCC) - ICD9: 494.1, ICD10: J47.0 Improved with recent levaquin, currently no sx 5. Pulmonary emphysema, unspecified emphysema type (HCC) - ICD9: 492.8, ICD10: J43.9 Compliant with medications: continue 6. Acute adrenal insufficiency (HCC) - ICD9: 255.41, ICD10: E27.40 Stable- no recent checks. 7. Chemotherapy-induced peripheral neuropathy (HCC) - ICD9: 357.7, E933.1, ICD10: G62.0, T45.1X5A Neurontin helps 8. PEG (percutaneous endoscopic gastrostomy) status (HCC) - ICD9: V44.1, ICD10: Z93.1 Stable site and feedings 9. Tracheostomy in place (HCC) - ICD9: V44.0, ICD10: Z93.0 Continued problems with secretions, device management . Follows with [facility] 10. Mild protein-calorie malnutrition (HCC) - ICD9: 263.1, ICD10: E44.1 Proteins remain mildly low 11. Chronic renal failure, stage 3a (HCC) - ICD9: 585.3, ICD10: N18.31 - eGFR: Stable Follows with renal 12. Anemia due to stage 3a chronic kidney disease (HCC) - ICD9: 285.21, 585.3, ICD10: N18.31, D63.1 - eGFR: Stable 13. Oral candidiasis - ICD9: 112.0, ICD10: B37.0 Significant improvement with diflucan Follow up in 6 months or as desired. Alejandro Liu PA-C documented in this encounter [facility] 04-21-2022 Miscellaneous Notes Phone call placed spoke to Christiane (listed on chart ) reported patient currently in the hospital unable to hear with Television on, advised to contact [facility] and speak with a nurse upon arriving at home. Christiane verbalized understanding, agreed with plan of care. Katty Walker LPN Please let him know stool heme+ 04/05/2022 [facility] labs CBC: WBC 4.3-Hgb 9.0-HCT 30.6-PLT 166. Chemistries: NA 145-CL 116 H-K4.2-CO2 25.0-BUN 41H-CRE 1.36H-GLU 105 Telephone on 04/20/22 CONSULT TO GENERAL SURGERY *Canceled* CONSULT TO GASTROENTEROLOGY Heme + stool (primary encounter diagnosis) They may want to stay with [facility] since all his care is done there. Dr. Price if they do, otherwise one of our surgeons. Thanks, Edwin Liu PA-C documented in this encounter [facility] 04-13-2022 Note HNO ID: [id number] Author: Alejandro Liu PA-C Service: ? Author Type: Physician Learning Disabilities Teacher Type: Progress Notes Filed: 04/14/2022 7:37 PM Note Text: 76 year old male here with c/o 4 week follow up, hospital follow up Facility: Admission date 04/02/2022 Discharge date 04/05/2022 Discharge diagnoses: 1. Right lower lobe pneumonia 2. Severe protein in caloric malnutrition followed by nutritional services 3. 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 4. Hypoxia: Nighttime only O2 use stable at 2 L per trach mask 5. Chronic hypoxic respiratory failure 6. Chronic urinary retention with indwelling Chaves 7. Dehydration with elevated creatinine though improved from prior day. 8. Chronic renal disease stage IIIb 9. Anemia of chronic disease not requiring transfusion 10. Chronic debility: Recommendations for outpatient physical therapy. prehospitalization details: Return to emergency department 04/02/2022 with complaint of shortness of breath, hemoptysis, low blood pressure, with exertional dyspnea, wheezing, sore throat, chills, green sputum, intermittent sharp right lower anterior chest wall pain. No documented fever. Exam: Vital signs 99.7 F-147-31-80/59-88% trach collar with 2 L O2 per minute. Exam identified as cachectic, unkempt, slight edema in the posterior pharynx with dry mucous membranes, lungs auscultated for rales in the right lower with wheezes scattered throughout with diminished breath sounds. CBC within normal limits except RBC 3.30-Hgb 10.0-HCT 32.8-with normal platelet count, increased RDW of 58.8 with variable indices, neutrophil percent 75.0 with absolute neutrophil count 3.7, absolute lymph count 0.54. INR 1.2. Chemistries within normal limits except chloride 109, BUN 41-CRE 121, EGFR 39. CHEM profile within normal limits except total protein 7.2, albumin 2.3, globulin 4.9, albumin/globulin ratio 0.5. Urine: SG 1.015, urine protein 108-ketones 5-urine occult blood 150: No micro. CXR: Improved left lower lobe infiltrate, slightly worse on right lower lobe infiltrate. Consider waxing and waning pneumonia compared to study 02/25/2022, consider follow-up CT of chest when appropriate. EKG: Sinus tachycardia ventricular rate 109 with QT duration of 322 MS, axis normal, premature ventricular complexes noted otherwise normal. Patient is admitted for acute hospital care Hospital course: Patient was admitted as above, and kept on IV antibiotics, seen in consultation with pulmonary medicine as well as consults to PT and OT as well as nutritional services. Patient was transitioned to Levaquin by pulmonary medicine. Given prescription for outpatient physical therapy services. Discharge weight 54.83 kg, BMI 17.3. Discharge labs: CBC: WBC 4.3-Hgb 9.0-HCT 30.6-PLT 166. Chemistries: NA 145-CL 116 H-K4.2-CO2 25.0-41H-1.36H-105 Microbiology results: 04/02/2022 urinary catheter sample: Staph epidermidis, yeast, not ban albicans 04/02/2022 blood culture x2: No growth in 48 hours. 04/02/2022: Blood culture right wrist and blood culture from port: No growth. 04/02/2022 mucosal narrative so pharyngeal swab for respiratory panel negative. 04/02/2022 Legionella antigen negative. Discharge instructions: Continue O2 2 L via trach mask at rest and 4 L on ambulation, follow-up with physical therapy as ordered. Medication reconciliation: New medications: Nystatin 100,000 units: 500,000 units p.o. 4 times daily #100mL/0 Levofloxacin to 50 mg daily per G-tube #5/0 Continue medications: Levothyroxine 50 mcg daily AC #30/2 Gabapentin 300 mg per 6 mL 20 mg per G-tube twice daily, #240/5 (Reduce food with fiber to 37 mL liquid every 4 hours G-tube Finasteride 5 mg daily Feeling shitty as normal No fever or chills Persistent cough, occasional production. Chest pain resolved. Patient continues with dry and sore areas in his mouth despite Mycostatin Currently taking no p.o. intake other than swatting mouth to keep it moist. Unable to replace trach with prior implement which had a better seal with less leakage. brought in materials to review again regarding potential supplies. No issues with tube feeding or G-tube. Bowels have been formed, generally once or twice a day. No black or tarry stools or rectal bleeding noted. Chaves was changed during the hospitalization, remains patent. Has follow-up with Dr. Martinez next week to review options for continued indwelling Chaves with intermittent changes versus surgery. states that conversation with Dr. Max and Dr. Martinez who agreed that he could proceed with surgery unless patient and decline in which case can continue indwelling Chaves. 04/10/[address] Jonathan Max reviewed: Plan indicates holding Keytruda for another 3 weeks due to ongoing medical (more content not included)... [facility] 03-19-2022 Miscellaneous Notes Office visit faxed to Dr Max. Spoke to Christiane. Patient is doing ST at the hospital. They have not set up home PT/OT yet. He has quit smoking. Dr Max has rechecked stool hemoccult about 2 weeks ago and it was negative. Dr Max felt the positivie result came from a medication he was taking in the hospital. Call to Dr Martinez's nurse and relayed all of provider's message to her. She will speak with Dr Martinez. I also advised the patient's wished to hold on any surgical procedures until Dr Max feels he is well enough for it. Again nurse verbalized understanding and will discuss with Dr Martinez. Office visit faxed to them as well. Rona Thao Ma Please send copy of my note to Dr. Max. 1.Please contact Christiane Graham and ask the following information: -Is he receiving home PT/OT or ST? -Is he still smoking and how much? -He had a positive stool hemoccult listed in [facility] records 02/05/2022. Was any evaluation done? 2. Please send my notes to Dr. Martinez and contact Dr. Martinez's office to have them schedule chaves catheter management. Also please let them know or grab me and I will talk to them about the following: - Each time the catheter is removed he ends up back in ER with retention or hospitalized for infection. Let them know I advised patient If chaves is removed should push H20 32oz through PEG tube 30 minutes prior to removing chaves and should be monitored in office until he demonstrates ability to void. - Patient wishes to wait on surgical procedures until Dr. Max feels he is physically capable. Edwin Najera PA-C Thanks, Greg Barton, PA-C documented in this encounter [facility] 03-16-2022 Instructions Alejandro Liu PA-C - 03/16/2022 1:47 PM EST Trial lemon glycerine swabs for dry mouth. documented in this encounter [facility] 03-16-2022 History of Presen t illness Narrative 76 year old male with c/0 hospital discharge follow up Hospital discharge follow-up Admission date 02/11/2022 Discharge date 02/19/2022 Discharge diagnoses: 1. Septic shock, acute 2. Pneumonia unspecified organism 3. Acute kidney injury Preadmission Hospital details: 02/11/2022 presented to [facility] emergency department with complaint of fever, low blood pressure, rapid heart rate, hypoxia. Patient has history of throat cancer with mets to lung. Dr. Sabillon had previously sent blood cultures and started on Augmentin. Patient called squad due to worsening symptoms. Initial O2 saturation 69%, nonrebreather mask placed over his tracheostomy with improvement. Tachycardic in the 140-150 range. Received IV bolus on way to hospital. Reported temperature 103F at home. Exam: Vital signs 99.9-169-70-103/65-90% with trach collar O2. Described as cachectic, diminished breath sounds bilateral bases, tachycardic, normal status grossly normal. CC: WBC 5.7-Hgb 9.2-HCT 30.3-PLT 169, macrocytic indices-neutrophil percent 73.4 with absolute neutrophil count 4.2. Chemistries: Abnormals chloride 108, BUN 40-CRE 2.42, EGFR 28. Lactic acid 2.1. Albumin 2.2 with albumin globulin ratio 0.4. Chest x-ray suspicious for lingular left lower lobe pneumonia, right lower lobe atelectasis. EKG normal sinus tachycardia without ischemic changes Patient was given IV fluid, placed on traffic monitor specialist, decision to admit.. Admission assessment and plan, hospital course: 1. Sepsis secondary to pneumonia, possible UTI without evidence of current shock. Blood culture, urine culture, sputum culture ordered, checks for strep pneumonia and Legionella antigens ordered, started on vancomycin and Zosyn, supplemental O2, and currently 70% trach mask, weaned as he improved. Patient improved with treatment and IV resuscitation. 02/11/2022 BC x 2, respiratory and urine cultures neg. 02/11/2022 MRSA DNA negative 02/11/2022 legionella AG Ur neg 02/11/2022 strep pneum Ag Ur neg 02/11/2022 Covid, Influenza Ag negative Ag 02/15/2022 cdiff PCR neg 2. Urinary tract infection, previous culture showed mixed gram-negative and gram-positive organisms. Chaves exchanged. 3. LEV: Chaves in place, IV fluids with normal saline at 125 cc.hr given, BMP followed with improvement. 02/19/22 BUN 27-CRE 1.55, eGFR 57 4. Acute on chronic anemia: Drop in hemoglobin 2 g since 02/05/2022, Hemoccult POSITIVE. CBC remained stable on serial checks. Retic fraction 24.30H, IPF 14.0H. 5. Tachycardia: improved IV fluids 6. Lactic acidosis mild at 2.1, suspected to be related to acute kidney injury and hypoxia. 7. Severe malnutrition: Consulted dietitian, tube feed recommended, supplement as recommended.02/12/2020 22-minute: Nutritional status evaluation: Chronic disease related malnutrition related inability to consume sufficient energy: N.p.o., Jevity 1.5 120 mL bolus 1/day, to 37 mL bolus 5 times/day to provide 1957 yesica 83 g protein, 60 mL water flush before and after plus additional to 45 mmHg flush at noon to provide 1956 mL fluid daily 02/11/2022 PO4 3.5 8. Dysphagia: N.p.o. at baseline. Speech therapy eval: continue feeding through G-tube, no oral fluids. 9. Urinary retention secondary to BPH, follows with Dr. Edmonds, changed from Flomax to doxazosin as Flomax not able to be crushed. It appears the Chaves was removed on discharge or after discharge, incomplete records. 10. Metastatic oropharyngeal cancer: Status post chemo and radiation with progressive disease, mediastinal adenopathy and lung nodules: Began Keytruda 2015, restaged 2018 with improving disease, stability in 2019 CT scan. Patient has been cycling on pembrolizumab-cycle 11 was held due to concerns of infectious process. Will resume outpatient treatment outpatient. 11. Chronic pain: Continue home narcotics and gabapentin. 12. Hypothyroidism: Continued levothyroxine, 02/11/2022 TSH 2.01 13. Debility: Consulted PT/OT/ST through d/c 14. Tobacco use: Recommended cessation, nicotine replacement as needed. 15. DVT prophylaxis with Lovenox and SCDs. 16. CODE STATUS: Full code on admission 17. Chronic hypoxic respiratory failure secondary laryngeal CA status post tracheostomy: Stable on d/c 18. Hypotension: initially treated as septic shock but however was diagnosed with adrenal insufficiency and treated with midodrine and prednisone taper. 19. Adrenal insufficiency: 02/16/2022 cortisol level 13.30 (WNL) - 02/21/2022 presented with urinary retention, straight cath for 1200 cc of urine. Also had persistent swelling of the left forearm Vital signs 97.1-63-14-128/77-97% on 6 L/min O2, later 98% on room air. Patient was noted on exam to have bilateral hand swelling left greater than right without palpable cords and good capillary refill. Chaves catheter was inserted was approximately 1200 cc drained. Venous Doppler study showed no evidence of deep vein thrombosis in the left arm. Discharged with indwelling Chaves catheter. 03/05/2022 return to ER with mild fever detected at the infusion center where he was receiving IV fluid for hydration. Vital signs 100.3 P-920-44-104/67-93% RA. CBC: WBC 4.8-Hgb 9.6-HCT 32.0-PLT 129, neutrophil percent 70.7, absolute neutrophil 3.4, chemistries within normal limits except BUN of 32-CRE 1.26. Total protein normal at 6.4, albumin normal at 2.2. UA: Specific gravity 1.010, no RBC, 25-50 WBC with 2+ bacteria. Chest x-ray demonstrated persistent right greater than left basilar infiltrates with left slightly improved from previous film. Patient was discharged with prescription for Levaquin 500 mg daily x7. Current status: Feeling alright in my mind, but my body says full of shit Not much activity, stays in bedroom, plays games on phone. pushes him to walk. She feels he has depression, anger, feeling low. Feels SOB, last 3-4 days improved with sputum. Was coughing and gagging and the area trach all bloody. Nose drips. States changed original trach with trach that allows mucus get through the clip and run back into chest making him cough. Not always following ST recommendations: tries liquids and chokes. Lately just swabbing tongue with foods and liquids to be able to taste them. Chaves remains in since last ER visit 4 weeks ago. Was to follow up with Dr. Martinez who is recommending surgery to resolve flow issues causing UTI. There has been no plan for chaves catheter care. Every time catheter is removed, he ends up back in hospital with infection. They have made decision to wait for Dr. Max to okay surgery as he is in malnourished state nd worry about consequences. They are unable to tell me what surgical procedure was recommended. has been through 119 treatments for cancer. Still motivated to continue. 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 Bronchovesicular consolidation with nodular density left lower lobe unchanged since most recent CT scan 08/03/2021, no significant FDG activity. 2. Multifocal pulmonary and bilateral mediastinal/hilar activity at PET scan in 2016 is not identified on current exam. Otherwise scan is normal, atherosclerotic plaque is noted in the aortic arch with tortuosity and elongation of aortic arch and descending thoracic aorta. HISTORIES FAMILY HISTORY Problem Relation Age of Onset Hypertension Mother Hypertension Father Colon Cancer Father PAST MEDICAL HISTORY Diagnosis Date Hypothyroidism Lung cancer (HCC) Neuropathy Pulmonary emphysema (HCC) 01/02/2016 Throat cancer (HCC) PAST SURGICAL HISTORY Procedure Laterality Date PAST SURGICAL HISTORY OF Right 04/08/2014 port placement PAST SURGICAL HISTORY OF PEG TUBE 12/08/2015 PORT 02/01/2016 removed 01/08/2022 PORT 01/17/2022 at TRACHEOSTOMY (SPECIFY) 04/08/2014 Social History Tobacco Use Smoking status: Some Days Smokeless tobacco: Former Vaping Use Vaping Use: Never used Substance Use Topics Alcohol use: No Comment: used to drink on occasion, but no longer Drug use: No ACTIVE PROBLEM LIST Laryngeal Cancer (Hcc) Pulmonary Emphysema (Hcc) Peg (Percutaneous Endoscopic Gastrostomy) Status (Hcc) Tracheostomy in Place (Hcc) Protein-Calorie Malnutrition (Hcc) Lung Infiltrate On CT Secondary Malignant Neoplasm of Left Lung (Hcc) Chronic Renal Failure, Stage 3 (Moderate) (Hcc) Hypothyroidism, Acquired Anemia Due to Stage 3 Chronic Kidney Disease (Hcc) Abnormal Serum Protein Electrophoresis Secondary Peripheral Neuropathy Current Outpatient Medications Medication Sig Dispense Refill levothyroxine 50 mcg cap Take 50 mcg by mouth daily before breakfast. gabapentin (NEURONTIN) 300 mg capsule Take 300 mg by mouth twice daily. No current facility-administered medications for this visit. ABDOMINAL AORTIC ANEURYSM SCREENING Never done PNEUMOCOCCAL: 65+(1 - PCV) Never done SPIROMETRY Never done HEPATITIS C SCREENING Never done SERUM CREATININE Never done DTAP,TDAP,TD(1 - Tdap) Never done SHINGRIX VACCINE(1 of 2) Never done ALPHA-1 ANTITRYPSIN DEFICIENCY SCREENING Never done LIPID SCREEN Never done COLORECTAL CANCER SCREENING Never done ANNUAL PCP TEAM CHRONIC DISEASE VISIT due on 11/22/2019 HEMOGLOBIN/HEMATOCRIT due on 01/31/2021 ADVANCE DIRECTIVE DISCUSSION Never done DEPRESSION ASSESSMENT Never done COVID-19 VACCINE(4 - Booster for Pfizer series) due on 05/08/2021 INFLUENZA(1) due on 12/07/2021 EXAM: BP 108/58 Pulse 60 Temp 36.4 C (97.6 F) (Left Tympanic) SpO2 94% Pleasant cachectic appearing man in no acute distress, continues with humorous banter. Alert and oriented all spheres. Normal affect and cognition. Speech normal. No deficits to learning or comprehension. Skin warm, dry, pink to lips and nailbeds. Normal turgor. Respirations regular and unlabored. HEENT: NCAT. No scleral icterus or conjunctival injection. TM's clear. Nose free from injection or lesion. Oral membranes very dry, cracked lips, fissured tongue. No cervical lymph nodes. Thyroid non-tender, no masses, or enlargement. Carotids pulses 2+/4+ without bruits. Neck veins are flat. Abdomen scaphoid active bowels sounds. Extrem: no clubbing or cyanosis. Edema: none. Extremities are warm and pink with prompt capillary refill. ASSESSMENT/PLAN: 1. Hospital discharge follow-up - ICD9: V67.59, ICD10: Z09 (primary diagnosis) Medication reconciliation completed Finished levofloxin 500mg daily x 7 from ER Indwelling chaves and urinary retention remains unreconciled Follow up scheduled with Dr. Max. Need to contact Dr. Martinez for chaves care Heme + stool not addressed in records. Persistent R>L infiltrates without clinical signs of pneumonia but was on steroids for adrenal insufficiency with isolated normal cortisol level. Will forward records today to Dr. Max for concerns with unresolved pneumonia 2. Septic shock (HCC) - ICD9: 038.9, 785.52, 995.92, ICD10: A41.9, R65.21 resolved 3. Sepsis due to pneumonia (HCC) - ICD9: 486, 995.91, ICD10: J18.9, A41.9 Cultures all negative but responded to antibiotics. 4. LEV (acute kidney injury) (HCC) - ICD9: 584.9, ICD10: N17.9 Resolved with IVF 5. Acute anemia - ICD9: 285.9, ICD10: D64.9 On chronic anemia, stable 6. Heme + stool - ICD9: 792.1, ICD10: R19.5 02/05/2022: no mention in records of resolution or recheck. This was discovered after our visit and will need addressed. 7. Severe protein-calorie malnutrition (HCC) - ICD9: 262, ICD10: E43 Lab numbers look good with protein and albumin. Check PO4 8. Oropharyngeal dysphagia - ICD9: 787.22, ICD10: R13.12 Continue NPO 9. Urinary retention due to benign prostatic hyperplasia - ICD9: 600.91, 788.20, ICD10: N40.1, R33.8 10. Indwelling Chaves catheter present - ICD9: V45.89, ICD10: Z97.[address] Martinez (out of office on Fridays) to determine course. 11. Laryngeal cancer (HCC) - ICD9: 161.9, ICD10: C32.9 12. Secondary malignant neoplasm of left lung (HCC) - ICD9: 197.0, ICD10: C78.[address] Max 13. PEG (percutaneous endoscopic gastrostomy) status (HCC) - ICD9: V44.1, ICD10: Z93.1 Site looks good, functioning well 14. Tracheostomy in place (HCC) - ICD9: V44.0, ICD10: Z93.[address] Polo and also researching trach options. Prior trach clipped onto collar with a complete seal. This trach has channels that allow mucus to drip down throat and make him congested 15. Anemia due to stage 3a chronic kidney disease (HCC) - ICD9: 285.21, 585.3, ICD10: N18.31, D63.1 - eGFR: Stable Continue monitoring. 16. Chronic renal failure, stage 3a (HCC) - ICD9: 585.3, ICD10: N18.31 resolved 17. Hypothyroidism, acquired - ICD9: 244.9, ICD10: E03.9 Subclinical hypothyroidism- not certain in past that he needed treatment. 3 years ago received notice from [facility] r/t chemo and not to bother with adjusting doses but he remains on levothyroxine and is stable 18. Physical debility - ICD9: 797, ICD10: R54 Needs continue monitoring nutritional status, PT, OT to maintain activity. takes care of a lot of this though identifies activity level is low. Need to check on services for home therapy. 19. Tobacco use - ICD9: 305.1, ICD10: Z72.0 - Continued cessation encouraged. - Physiologic and physical aspects of tobacco addiction as well as strategies for quitting were discussed. - Counseling was given focusing on the harmful effects of this addiction especially given the patient's medical condition(s) which will be worsened because of the chemicals in tobacco. 20. Acute adrenal insufficiency (HCC) - ICD9: 255.41, ICD10: E27.40 As above Followed by Dr. Max for almost all care. Due to extensive and complex treatment, patient has had all primary care performed through his office. He is here only because the hospital required him to have a PCP for follow up. I am happy to remain in this capacity but don't want to duplicate services and separate institutes complicates managing records and communication I will forward notes to Dr. Max I spent a total of 96 minutes on the date of the service which included preparing to see the patient, [id number] patient care, completing clinical documentation, obtaining and/or reviewing separately obtained history, performing a medically appropriate examination, counseling and educating the patient/family/caregiver, ordering medications, tests, or procedures, communicating with other HCPs (not separately reported), independently interpreting results (not separately reported), communicating results to the patient/family/caregiver, and care coordination (not separately reported). Alejandro Liu PA-C documented in this encounter [facility] 01-22-2022 History of Presen t illness Narrative [facility]LLOW [id number] DATE OF SERVICE: 01/22/2022 : 1945 REFERRING PHYSICIAN: Alejandro Liu PA-C Serenity is status post placement of left subclavian portacath done on 01/16/2022. He denies any problems. He also had a change of his PEG tube - changed from flange type to balloon type. VITALS: There were no vitals taken for this visit. On examination, abdomen is soft and benign. Gastrostomy tube in place without complications. Portacath site is healing well with no evidence of infection. Assessment IMPRESSION: s/p placement of portacath PLAN: Patient is instructed to make an appointment to return to clinic if any worsening signs/symptoms. Patient will return to his PCP for medical care. Patient acknowledges above. Diagnoses: No diagnosis found. I have confirmed and edited as necessary, the PFSH and ROS obtained by others. Demetria Griffin MD documented in this encounter [facility] 01-08-2022 History of Presen t illness Narrative HISTORY AND PHYSICAL Serenity Dumont 1945 REFERRING PHYSICIAN: Demetria Griffin MD CHIEF COMPLAINT: Consult (Replace port, speak about a feeding tube.) HPI: The patient is a 76 year old male presents with portacath with leakage as demonstrated by a radiological study. He has known metastatic head and neck cancer. Also, there is a central eschar with skin opening exposing the surface of the port injection site. The port has not been used in the past three weeks. He has a gastrostomy tube in place, which he also requests a change for this. He also has a tracheostomy. He is presently on Keytruda. PAST MEDICAL HISTORY Diagnosis Date Hypothyroidism Lung cancer (HCC) Neuropathy Pulmonary emphysema (HCC) 01/02/2016 Throat cancer (HCC) PAST SURGICAL HISTORY Procedure Laterality Date PAST SURGICAL HISTORY OF Right 04/08/2014 port placement PAST SURGICAL HISTORY OF PEG TUBE 12/08/2015 PORT 02/01/2016 at TRACHEOSTOMY (SPECIFY) 04/08/2014 Current Outpatient Medications Medication Sig levothyroxine 50 mcg cap Take 50 mcg by mouth daily before breakfast. gabapentin (NEURONTIN) 300 mg capsule Take 300 mg by mouth twice daily. ALLERGIES: Sudafed [Pseudoephedrine Hcl] PERSONAL HISTORY: Social History Tobacco Use Smoking status: Some Days Smokeless tobacco: Former Vaping Use Vaping Use: Never used Substance Use Topics Alcohol use: No Comment: used to drink on occasion, but no longer Drug use: No FAMILY HISTORY: FAMILY HISTORY Problem Relation Age of Onset Hypertension Mother Hypertension Father Colon Cancer Father REVIEW OF SYMPTOMS: The review of systems data was entered by the nurse and reviewed by me There are no exam notes on file for this visit. PHYSICAL EXAMINATION: General: The patient is 76 year old male, well nourished, well hydrated in no acute distress. The patient is oriented to time, place, and person. VITALS: Blood pressure 106/60, pulse (!) 124, temperature 37.2 C (99 F), weight 57.1 kg (125 lb 12.8 oz), SpO2 96 %. Body mass index is 18.05 kg/m . Head: Normal cephalic, atraumatic Eyes: pupils are equally round, sclera are clear/anicteric Neck is supple, tracheostomy in place Chest: right upper chest portacath site, central eschar with underlying exposure of port injection site Respiratory: Normal respiratory excursion and pattern. Abdominal exam: benign, gastrostomy tube in place Extremities: no clubbing, cyanosis or edema. Neuro: non focal Psych: normal mood Assessment IMPRESSION: metastatic head and neck cancer, non functioning portacath, gastrostomy tube in place PLAN: I have discussed the above with the patient. I have offered removal of the present portacath. He will then be scheduled for replacement portacath. His gastrostomy tube can be changed also at the time. I have explained the procedure to the patient. I have explained the risks of the surgery, including but not limited to: infection, bleeding, injury to any blood vessels/nerves, thromboses of blood vessels, line sepsis, injury to lungs (such as pneumothorax or hemothorax and need for chest tube), migration of the catheter, not having any access (inability to place a vascular catheter due to anatomy/etc.), mechanical nonfunctioning of port, infection of port, scar tissue, wound infection, etc. - the patient understands The patient wishes to proceed. I have answered all questions to the patient s satisfaction and the patient has no further questions. I have confirmed and edited as necessary, the PFSH and ROS obtained by others. . Diagnoses: (T85.9XXA) Complication of catheter, initial encounter (primary encounter diagnosis) Return to Clinic: The patient tolerated procedure well of removal of portacath today. He is scheduled for placement of portacath next week at [facility] as per his wishes. Medical Decision Making: Problems: Low: Stable chronic illness Risk: Moderate: Decision on minor surgery w/ risk factors Medical Decision Making Level: 3 - Low Demetria Griffin MD UNIVERSAL PROTOCOL / SAFETY CHECKLIST Procedure to be Performed: Removal of portacath. Sign In: A Moment of CARE was completed. Personnel directly involved with the procedure wore the appropriate PPE (Personal Protective Equipment). No special equipment needed. Patient/Surrogate Stated/Verified: PATIENT VERIFIED(optional for EMERGENT procedures): Patient name, Date of , Relevant allergies, and The intended procedure Time Out Communication: Intended patient and procedure match the source documents. Consent documented and matches the intended procedure. No relevant labs, photos, and/or imaging studies were applicable for review. Correct side/site marked and visible. Medications required for procedure verified. No fire risk assessment and interventions applicable. No implant(s) inserted. Sign Out: SIGN OUT (optional for EMERGENT procedures): No specimen collected. No instruments, equipment or retained foreign bodies applicable. Post-procedure follow-up management communicated and Plan of Care Visit completed when applicable. Mary Ellen Collier RN documented in this encounter [facility] 01-08-2022 Procedure note Procedure(s): RMVL PHILIPP CTR VAD W/SUBQ PORT/TUYERE FITTER CTR/PRPH INSJ Pre-Procedure Diagnose(s): Complication of catheter, initial encounter Post-Procedure Diagnose(s): Complication of catheter, initial encounter After informed consent was given the patient was placed in the supine position. Appropriate time out protocol was followed. At the site of the port - right upper chest area, the skin was cleansed with sterile skin preparation and sterile surgical drapes were placed. The skin and subcutaneous tissues were infiltrated with 1% xylocaine with epinephrine. Total of 9 ml was used. A skin incision was made at the previous scar site with a 15 blade scalpel. Blunt dissection was then continued down to the port site. Blunt dissection was continued to separate the port and catheter for the surrounding tissues. Once completely freed, the port and catheter was then completely removed from the wound. Pressure was applied to the vein site for hemostasis. The skin was then reapproximated with a subdermally placed 3-0 vicryl suture. Steristrips were placed to reinforce the wound closure. A sterile dressing was then applied. Patient tolerated the procedure well. Complications: none EBL: minimal documented in this encounter [facility] 01-08-2022 Instructions Mary Ellen Collier RN - 01/08/2022 3:42 PM EDT The following instructions are important for you related to your office visit today with the [facility] Surgeons. Instructions After Port a Cath Removal You can remove the dressing in three to five days. If the dressing becomes soaked or had significant drainage, the dressing should be changed. If there is minor bleeding from this skin edge, you should hold pressure on the incision until the bleeding stops. If there is continued bleeding, you should contact our office immediately. You do not need to leave a dressing on the wound after five days. If the wound shows signs of redness, inflammation, or purulent drainage, you should contact our office immediately. You should keep the wound dry for the first three to five days. After that time, you may wash the wound with gentle soap and water. The wound should not be immersed in a pool, bathtub, or even hot tub. If you note any additional difficulties, questions, or concerns, you should contact our office immediately @ [phone] and ask to be transferred to the General Surgery department. documented in this encounter [facility] 12-19-2021 History of Presen t illness Narrative HISTORY AND PHYSICAL Serenity Dumont 1945 REFERRING PHYSICIAN: Jonathan Max MD CHIEF COMPLAINT: Consult (Port replacement, leaking) HPI: The patient is a 76 year old male with a diagnosis of metastatic laryngeal cancer. Serenity currently is on Keytruda therapy and needs vascular access for treatment. The patient has a prior history of ports on both sides, most recently with placement of a right subclavian portacath at [facility] by Dr. Griffin on 02/01/16. Patient notes this had been functioning well up until recently, when he felt this was leaking. His oncologist Dr. Max had ordered a portogram which was completed at [facility] on 12/13/21 and did show evidence of leakage of contrast at port injection site. He was referred to have port replaced by Dr. Griffin. Patient notes he is also due for replacement of his feeding tube-states has these replaced about every 3 years-and wanted to know if that could be performed same day as port. PAST MEDICAL HISTORY Diagnosis Date Hypothyroidism Lung cancer (HCC) Neuropathy Pulmonary emphysema (HCC) 01/02/2016 Throat cancer (HCC) PAST SURGICAL HISTORY Procedure Laterality Date PAST SURGICAL HISTORY OF Right 04/08/2014 port placement PAST SURGICAL HISTORY OF PEG TUBE 12/08/2015 PORT 02/01/2016 at TRACHEOSTOMY (SPECIFY) 04/08/2014 Current Outpatient Medications Medication Sig Dispense Refill levothyroxine 50 mcg cap Take 50 mcg by mouth daily before breakfast. gabapentin (NEURONTIN) 300 mg capsule Take 300 mg by mouth twice daily. No current facility-administered medications for this visit. ALLERGIES: Sudafed [Pseudoephedrine Hcl] PERSONAL HISTORY: Social History Tobacco Use Smoking status: Some Days Smokeless tobacco: Former Vaping Use Vaping Use: Never used Substance Use Topics Alcohol use: No Comment: used to drink on occasion, but no longer Drug use: No FAMILY HISTORY: FAMILY HISTORY Problem Relation Age of Onset Hypertension Mother Hypertension Father Colon Cancer Father REVIEW OF SYMPTOMS: The review of systems data was entered by the nurse and reviewed by in Nursing Notes: Courtney Lomas LPN 12/19/2021 10:53 AM Signed REVIEW OF SYSTEMS: General: The patient notes fatigue, notes weight loss, denies weight gain, denies feeling hot, and denies feelings of cold. Eyes: The patient denies glaucoma, denies eye injury/surgery, wears glasses or contacts. Ear/Nose/Throat: The patient notes allergies, denies hayfever, denies ear infections, and denies bloody noses. Cardiovascular: The patient denies chest pain, denies heart disease, denies high blood pressure,denies cardiac stent, denies prior heart attack, denies irregular heart beat, denies high cholesterol, denies poor circulation, denies heart failure, other cardiac issues, denies claudication, denies cold feet, denies peripheral arterial stent. Respiratory: The patient denies tuberculosis, denies pneumonia, denies frequent cough, denies pulmonary embolism, notes shortness of breath, and denies coughing up blood. Gastrointestinal: The patient notes difficulty swallowing, denies acid reflux, denies ulcers, denies vomiting, denies jaundice/hepatitis, denies gallbladder problems, denies black or tarry stools, denies hemorrhoids, denies bleeding from rectum, denies diverticulitis, denies constipation, denies diarrhea, denies loss of stool control, and denies hernias. Kidney/Bladder: The patient denies kidney stones, denies urine infections, and denies bloody urine. Skin: The patient denies a history of skin cancer, denies bleeding/changing moles, and denies a history of skin rash. Neurologic: The patient denies a history of epilepsy/convulsions, denies headaches, denies head/spinal injuries, and denies stroke/TIA. Psychiatric: The patient denies psychiatric medications, denies depression, and denies voices, denies substance abuse. Endocrine: The patient denies thyroid disorders, denies diabetes, and denies hormonal problems. Hematologic: The patient denies a history of bruising, denies bleeding, and denies anemia, denies blood clots. Infections: The patient denies a history of measles and mumps, denies rheumatic fever, and denies sexually transmitted diseases. Musculoskeletal: The patient denies back pain/injury, denies back problems, denies sciatica, denies knee/foot trouble, denies arthritis, or denies gout. When was patient's last Mammogram screening? N/A Last Colonoscopy: none Courtney Lomas LPN I have confirmed and edited as necessary, the PFSH and ROS obtained by others. Shira Love PA-C PHYSICAL EXAMINATION: General: The patient is 76 year old male, well nourished, well hydrated in no acute distress. The patient is oriented to time, place, and person. VITALS: Blood pressure 98/58, pulse 107, temperature 36.8 C (98.3 F), height 177.8 cm (5' 10 ), weight 57.6 kg (127 lb), SpO2 94 %. Body mass index is 18.22 kg/m . HEENT: +tracheostomy in place. Normal cephalic, ataumatic, pupils are equally round, sclera are anicteric, mucous membranes are moist, oropharynx is clear. Neck has no masses, asymmetry or lymphadenopathy. Thyroid is unremarkable. Respiratory: Clear to auscultation and percussion. Normal respiratory excursion and pattern. Cardiac: Examination is regular rate and rhythm. Abdominal exam: +feeding tube in place. Soft, nontender, with no palpable masses. No hepatosplenomegaly. No palpable hernias. Rectal exam: exam deferred Extremities: no clubbing, cyanosis or edema. No adenopathy. Other: Right sided portacath site c/d/I without erythema or warmth LABORATORY VALUES: As Noted RADIOLOGIC STUDIES: As Noted Assessment IMPRESSION: laryngeal cancer, need for IV access-current port leaking PLAN: I have reviewed my findings with Dr. Griffin, who also participated in development of the following plan. The planned surgical procedure was discussed extensively with the patient. The risks, benefits, anticipated outcomes and possible complications were mentioned. My staff has also explained the procedure in understandable terms and the patient was given the option to take printed material concerning the planned procedure. The patient had the opportunity to ask questions concerning the planned procedure. The patient freely consents to the planned procedure. Dr. Griffin plans to first remove the non-functioning port in office. Following this on a separate day she will plan for placement of a new port, as well as a replacement of patient's feeding tube at same setting. Diagnoses: (Z95.828) Port-A-Cath in place (primary encounter diagnosis) (Z93.1) PEG (percutaneous endoscopic gastrostomy) status (HCC) (J43.9) Pulmonary emphysema, unspecified emphysema type (HCC) (C32.9) Laryngeal cancer (HCC) (Z93.0) Tracheostomy in place (HCC) Consultation requested by Dr. Max for an opinion regarding need for port replacement My final recommendations will be communicated back to the requesting physician by way of shared Medical record or letter to requesting physician via US mail. Shira Love PA-C documented in this encounter [facility] 12-19-2021 Nurse Note REVIEW OF SYSTEMS: General: The patient notes fatigue, notes weight loss, denies weight gain, denies feeling hot, and denies feelings of cold. Eyes: The patient denies glaucoma, denies eye injury/surgery, wears glasses or contacts. Ear/Nose/Throat: The patient notes allergies, denies hayfever, denies ear infections, and denies bloody noses. Cardiovascular: The patient denies chest pain, denies heart disease, denies high blood pressure,denies cardiac stent, denies prior heart attack, denies irregular heart beat, denies high cholesterol, denies poor circulation, denies heart failure, other cardiac issues, denies claudication, denies cold feet, denies peripheral arterial stent. Respiratory: The patient denies tuberculosis, denies pneumonia, denies frequent cough, denies pulmonary embolism, notes shortness of breath, and denies coughing up blood. Gastrointestinal: The patient notes difficulty swallowing, denies acid reflux, denies ulcers, denies vomiting, denies jaundice/hepatitis, denies gallbladder problems, denies black or tarry stools, denies hemorrhoids, denies bleeding from rectum, denies diverticulitis, denies constipation, denies diarrhea, denies loss of stool control, and denies hernias. Kidney/Bladder: The patient denies kidney stones, denies urine infections, and denies bloody urine. Skin: The patient denies a history of skin cancer, denies bleeding/changing moles, and denies a history of skin rash. Neurologic: The patient denies a history of epilepsy/convulsions, denies headaches, denies head/spinal injuries, and denies stroke/TIA. Psychiatric: The patient denies psychiatric medications, denies depression, and denies voices, denies substance abuse. Endocrine: The patient denies thyroid disorders, denies diabetes, and denies hormonal problems. Hematologic: The patient denies a history of bruising, denies bleeding, and denies anemia, denies blood clots. Infections: The patient denies a history of measles and mumps, denies rheumatic fever, and denies sexually transmitted diseases. Musculoskeletal: The patient denies back pain/injury, denies back problems, denies sciatica, denies knee/foot trouble, denies arthritis, or denies gout. When was patient's last Mammogram screening? N/A Last Colonoscopy: none Courtney Lomas LPN documented in this encounter [facility] Diagnosis Complication of catheter, initial encounter- Primary documented in this encounter [facility] note* Diagnosis Status post surgery- Primary documented in this encounter [facility] note* Diagnosis Hospital discharge follow-up- Primary Other follow-up examination Septic shock (HCC) Sepsis due to pneumonia (HCC) LEV (acute kidney injury) (HCC) Acute kidney failure, unspecified Acute anemia Heme + stool Nonspecific abnormal finding in stool contents Severe protein-calorie malnutrition (HCC) Other severe protein-calorie malnutrition Oropharyngeal dysphagia Dysphagia, oropharyngeal phase Urinary retention due to benign prostatic hyperplasia Indwelling Chaves catheter present Laryngeal cancer (HCC) Malignant neoplasm of larynx, unspecified site Secondary malignant neoplasm of left lung (HCC) Secondary malignant neoplasm of lung PEG (percutaneous endoscopic gastrostomy) status (HCC) Gastrostomy status Tracheostomy in place (HCC) Tracheostomy status Anemia due to stage 3a chronic kidney disease (HCC) Chronic renal failure, stage 3a (HCC) Hypothyroidism, acquired Unspecified hypothyroidism Age-related physical debility Senility without mention of psychosis Tobacco use Tobacco use disorder Acute adrenal insufficiency (HCC) Glucocorticoid deficiency [facility] Heme + stool- Primary Nonspecific abnormal finding in stool contents [facility] Diagnosis Laryngeal cancer (HCC)- Primary Malignant neoplasm of larynx, unspecified site Secondary malignant neoplasm of left lung (HCC) Secondary malignant neoplasm of lung Pneumonitis Pneumonia, organism unspecified Bronchiectasis with acute lower respiratory infection (HCC) Bronchiectasis with acute exacerbation Pulmonary emphysema, unspecified emphysema type (HCC) Acute adrenal insufficiency (HCC) 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) PEG (percutaneous endoscopic gastrostomy) status (HCC) Gastrostomy status Tracheostomy in place (HCC) Tracheostomy status Mild protein-calorie malnutrition (HCC) Malnutrition of mild degree Chronic renal failure, stage 3a (HCC) Anemia due to stage 3a chronic kidney disease (HCC) Severe protein-calorie malnutrition (HCC) Other severe protein-calorie malnutrition Oral candidiasis Candidiasis of mouth [facility] Diagnosis Hospital discharge follow-up- Primary Other follow-up examination Acute on chronic respiratory failure with hypoxemia (HCC) bilateral pneumonia MRSA Chronic pulmonary aspiration, sequela Laryngeal cancer (HCC) Malignant neoplasm of larynx, unspecified site Secondary malignant neoplasm of left lung (HCC) Secondary malignant neoplasm of lung Tracheostomy present (HCC) Acute systolic CHF (congestive heart failure) (HCC) Acute systolic heart failure Dilated cardiomyopathy (HCC) Other primary cardiomyopathies Ventricular hypokinesis, global Other ill-defined heart disease SVT (supraventricular tachycardia) Other specified cardiac dysrhythmias Chronic atrial fibrillation (HCC) Atrial fibrillation Chronic anticoagulation Long-term (current) use of anticoagulants Orthostatic hypotension Severe protein-calorie malnutrition (HCC) Other severe protein-calorie malnutrition GERD without esophagitis Esophageal reflux Benign prostatic hyperplasia with incomplete bladder emptying Hypothyroidism, acquired Unspecified hypothyroidism documented in this encounter [facility] Reason for Referral Specialty Diagnoses / Procedures Referred By Alex aquino Referred To Contact Gastroenterology Diagnoses Heme + stool Procedures CONSULT TO GASTROENTEROLOGY OFFICE/OUTPATIENT [facility] HIGH MDM 60-74 MINUTES Alejandro Liu PA-C [address] [place] [address] Referral ID Status Reason Start Date Expiration Date Visits Requested Visits Authorized [id number] Authorized PCP Requested Referral 04/27/2022 04/20/2023 1 1 Specialty Diagnoses / Procedures Referred By Alex aquino Referred To Contact Alejandro Liu PA-C [address] [place] [address] Referral ID Status Reason Start Date Expiration Date Visits Re quested Visits Authorized [id number] Closed 1 1 Summary Purpose Family History No Family History Records Found Advance Directives No Advanced Directives Records Found Additional Source Comments Source Comments (unrecognize d section and content) In the event this informatio n is protected by the Federal Confidentiality of Alcohol and Drug Abuse Patient Records regulations: The Federal rules restrict any use of the information to criminally investigate or prosecute any alcohol or drug abuse patient.[facility] the event this information is protected by the Federal Confidentiality of Alcohol and Drug Abuse Patient Records regulations: The Federal rules restrict any use of the information to criminally investigate or prosecute any alcohol or drug abuse patient.[facility] the event this information is protected by the Federal Confidentiality of Alcohol and Drug Abuse Patient Records regulations: The Federal rules restrict any use of the information to criminally investigate or prosecute any alcohol or drug abuse patient.[facility] the event this information is protected by the Federal Confidentiality of Alcohol and Drug Abuse Patient Records regulations: The Federal rules restrict any use of the information to criminally investigate or prosecute any alcohol or drug abuse patient.[facility] the event this information is protected by the Federal Confidentiality of Alcohol and Drug Abuse Patient Records regulations: The Federal rules restrict any use of the information to criminally investigate or prosecute any alcohol or drug abuse patient.[facility] SystemIn the event this information is protected by the Federal Confidentiality of Alcohol and Drug Abuse Patient Records regulations: The Federal rules restrict any use of the information to criminally investigate or prosecute any alcohol or drug abuse patient.[facility] SystemIn the event this information is protected by the Federal Confidentiality of Alcohol and Drug Abuse Patient Records regulations: The Federal rules restrict any use of the information to criminally investigate or prosecute any alcohol or drug abuse patient.[facility] SystemIn the event this information is protected by the Federal Confidentiality of Alcohol and Drug Abuse Patient Records regulations: The Federal rules restrict any use of the information to criminally investigate or prosecute any alcohol or drug abuse patient.[facility] SystemIn the event this information is protected by the Federal Confidentiality of Alcohol and Drug Abuse Patient Records regulations: The Federal rules restrict any use of the information to criminally investigate or prosecute any alcohol or drug abuse patient.[facility] SystemIn the event this information is protected by the Federal Confidentiality of Alcohol and Drug Abuse Patient Records regulations: The Federal rules restrict any use of the information to criminally investigate or prosecute any alcohol or drug abuse patient.[facility] SystemIn the event this information is protected by the Federal Confidentiality of Alcohol and Drug Abuse Patient Records regulations: The Federal rules restrict any use of the information to criminally investigate or prosecute any alcohol or drug abuse patient.[facility] SystemIn the event this information is protected by the Federal Confidentiality of Alcohol and Drug Abuse Patient Records regulations: The Federal rules restrict any use of the information to criminally investigate or prosecute any alcohol or drug abuse patient.[facility] SystemIn the event this information is protected by the Federal Confidentiality of Alcohol and Drug Abuse Patient Records regulations: The Federal rules restrict any use of the information to criminally investigate or prosecute any alcohol or drug abuse patient.[facility] SystemIn the event this information is protected by the Federal Confidentiality of Alcohol and Drug Abuse Patient Records regulations: The Federal rules restrict any use of the information to criminally investigate or prosecute any alcohol or drug abuse patient.[facility] SystemIn the event this information is protected by the Federal Confidentiality of Alcohol and Drug Abuse Patient Records regulations: The Federal rules restrict any use of the information to criminally investigate or prosecute any alcohol or drug abuse patient.[facility] Reason for Visit (unrecogniz ed section and content) Reason Comments Consult Replace port, speak about a feeding tube. Reason Comments Follow Up Follow up port place ment Reason Comments Hospital Follow Up [facility] D/C: 02/19/22 Reason Comments Patient Update Reason Comments Patient Update Reason Comments Follow Up Reason Comments Home health orders Reason Comments Orders Reason Comments Follow HH Orders Reason Comments [facility] HH PT FYI-No Action Needed Reason Comments Fax Updated Code Form with Limitations Reason Onset Date Comments Refill Request 03/12/2023 Care Teams (unrecognized sec tion and content) Airport Operations Specialist Relationship Specialty Start Date End Date Alejandro Liu PA-C [address] [place] [address] PCP - General Family Medicine 12/03/16 Jonathan Max MD [address] [place] [address] Physician Oncology 02/04/17 Luis Baumann [address] [place] [phone] Physician Ent - Otolaryngology 02/04/17 Airport Operations Specialist Relationship Specialty Start Date End Date Alejnadro Liu PA-C [address] [facility] [place] [address] PCP - General Family Medicine 12/03/16 Jonathan Max MD [address] [place] [address] Physician Oncology 02/04/17 Luis Baumann [address] [place] [place] [address] Physician Ent - Otolaryngology 02/04/17 Airport Operations Specialist Relationship Specialty Start Date End Date Alejandro Liu PA-C [address] [place] [address] PCP - General Family Medicine 12/03/16 Jonathan Max MD [address] [place] [address] Physician Oncology 02/04/17 Luis Baumann [address] [facility] [place] [address] Physician Ent - Otolaryngology 02/04/17 Airport Operations Specialist Relationship Specialty Start Date End Date Alejandro Liu PA-C [address] [place] [address] PCP - General Family Medicine 12/03/16 Jonathan Max MD [address] [place] [address] Physician Oncology 02/04/17 Luis Baumann [address] [place] [place] [address] Physician Ent - Otolaryngology 02/04/17 Airport Operations Specialist Relationship Specialty Start Date End Date Alejandro Liu PA-C [address] [facility] [address] PCP - General Family Medicine 12/03/16 Jonathan Max MD [address] [place] [address] Physician Oncology 02/04/17 Luis Baumann [address] [facility] [place] [address] Physician Ent - Otolaryngology 02/04/17 Airport Operations Specialist Relationship Specialty Start Date End Date Alejandro Liu PA-C [address] [place] [address] PCP - General Family Medicine 12/03/16 Jonathan Max MD [address] [place] [address] Physician Oncology 02/04/17 Luis Baumann [address] [facility] [place] [address] Physician Ent - Otolaryngology 02/04/17 Airport Operations Specialist Relationship Specialty Start Date End Date Alejandro Liu PA-C [address] [facility] [place] [address] PCP - General Family Medicine 12/03/16 Jonathan Max MD [address] [place] [address] Physician Oncology 02/04/17 Luis Baumann [address] [facility] [place] [address] Physician Ent - Otolaryngology 02/04/17 Airport Operations Specialist Relationship Specialty Start Date End Date Alejandro Liu PA-C [address] [facility] [id number] PCP - General Family Medicine 12/03/16 Jonathan Max MD [address] [place] [address] Physician Oncology 02/04/17 Luis Baumann [address] [facility] [place] [phone] Physician Ent - Otolaryngology 02/04/17 Airport Operations Specialist Relationship Specialty Start Date End Date Alejandro Liu PA-C [address] [facility] [place] [place] [address] PCP - General Family Medicine 12/03/16 Jonathan Max MD [address] [place] [address] Physician Oncology 02/04/17 Luis Baumann [address] [facility] [place] [phone] Physician Ent - Otolaryngology 02/04/17 Airport Operations Specialist Relationship Specialty Start Date End Date Alejandro Liu PA-C [address] [facility] [place] [id number] PCP - General Family Medicine 12/03/16 Jonathan Max MD [address] [place] [address] Physician Oncology 02/04/17 Luis Baumann [address] [place] [phone] Physician Ent - Otolaryngology 02/04/17 [employer] Operations Specialist Relationship Specialty Start Date End Date Alejandro Liu PA-C [address] [place], [place] [id number] PCP - General Family Medicine 12/03/16 Jonathan Max MD [address] [place] [phone] Physician Oncology 02/04/17 Luis Baumann [address] [place] [phone] Physician Ent - Otolaryngology 02/04/17 (unrecognized sect ion and content) No Status Records Found INFORMATION SOURCE (unrecogn ized section and content) FOR RECORDS PERTAINING TO PATIENTS WHO ARE OR HAVE BEEN ENROLLED IN A CHEMICAL DEPENDENCY/SUBSTANCEABUSE PROGRAM, SOME INFORMATION MAY BE OMITTED. This clinical summary was aggregated from multiple sources. Caution should be exercised in using it in the provision of clinical care. This summary normalizes information from multiple sources, and as a consequence, information in this document may materially change the coding, format and clinical context of patient data. In addition, data may be omitted in some cases. CLINICAL DECISIONS SHOULD BE BASED ON THE PRIMARY CLINICAL RECORDS. [facility] [employer] [facility] provides no warranty or guarantee of the accuracy or completeness of information in this document.
--- NOTE | 2023-04-04 23:43 | RAD_ITS ---
EXAM: XR CHEST, 1 VIEW CLINICAL INDICATION: cough TECHNIQUE: Frontal view of the chest. COMPARISON: March 23, 2023 FINDINGS: Moderate pleural effusions bilaterally with adjacent passive atelectasis including dense airspace disease in the retrocardiac region of the left lower lobe. Left chest port with tip at the cavoatrial junction. Tracheostomy tube in place. Atherosclerotic calcifications of the nonenlarged thoracic aortic arch. RAD/Chest 1 View (Portable) IMPRESSION: 1. No change in bibasilar parenchymal disease. 2. Unchanged support devices. 3. No other significant interval changes. Electronically Signed: Brad Lambert MD at 0:31 EST ,
[2023-04-04 23:46] LABS: Absolute Neutrophil Count 8.3 X10^3/uL (2.0-7.7); Basophil# 0.04 X10^3/uL; Basophil% 0.4 % (0-1); Eosinophil# 0.06 X10^3/uL; Eosinophils% 0.6 % (0-5); Hematocrit 28.9 % (40-54); Hemoglobin 8.8 g/dL (13.0-16.5); Lymphocyte % 12.6 % (19-41); Mean Corp Hgb Conc 30.4 g/dL (32-36); Mean Corpuscular Hgb 29.8 pg (27.0-32.0); Mean Platelet Vol. 12.3 fl (6.2-12.0); Monocyte# 0.54 X10^3/uL; Monocyte% 5.2 % (0-10); NRBC Flagged by Analyzer 0 % (0-5); Neutrophil # 8.34 X10^3/uL (2.7-7.7); Neutrophil % 80.8 % (47-70); Platelet Count 187 K/mm3 (150-450); RBC Distribution Width CV 16.1 % (11.6-14.6); RBC Distribution Width SD 57.8 fl (35.1-43.9); Red Blood Count 2.95 M/mm3 (4.6-6.2); White Blood Count 10.3 K/mm3 (4.4-11.0)
[2023-04-05 00:09] LABS: Anion Gap 4 (5-15); BUN 29 mg/dL (7-18); Calcium,Total 9.9 mg/dL (8.5-10.1); Chloride 102 mmol/L (98-107); Creatinine, Serum 1.61 mg/dL (0.70-1.30); EST Glomerular Filtration Rate 45 mL/min (>60); Est Glom Filt Rate - Afr Amer 54 mL/min (>60); Estimated Creatinine Clearance 36.45 ml/min; Glucose 120 mg/dL (74-106); Potassium 4.2 mmol/L (3.5-5.1); Sodium Level 140 mmol/L (136-145); Troponin-I HS 27 pg/mL (3.0-78.0)
[2023-04-05 00:15] LABS: BNP,B-Type NATRIURETIC PEPTIDE 145.2 pg/mL (0-100)
--- NOTE | 2023-04-05 01:04 | EDS_ITS ---
HPI History of Present Illness Chief Complaint: Fever Narrative Narrative: 77-year-old male with history of tracheostomy presenting today with a cough. He had a lot of sputum production through his trach site. Patient states he thought he had a fever of 101 today prior to coming. He took nothing that would mask a fever and is afebrile here. He had not had a fever before that. He is not describing any chills or bodyaches but states he is generally weaker than usual. Patient denies any chest pain. He has chronic shortness of breath. He is on Eliquis for A-fib. No black or bloody stools. 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) use of systemic steroids Long-term use of high-risk medication Neuropathy On home oxygen therapy PAF (paroxysmal atrial fibrillation) Pneumonia Pneumonitis 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 Shortness of breath on exertion Thrush, oral Tracheostomy in place tracheotomy and laryngeal biopsy Wears glasses Home Medications lactose-reduced food with fiber 0.06 gram-1.5 kcal/mL oral liquid (Jevity 1.5 Dipesh) 300 ml G-tube 4X/DAY NUTRITION #0 mL 01/25/23 [Rx Last Taken 03/14/23] ferrous sulfate 300 mg (60 mg iron)/5 mL oral liquid 300 mg (5 mL) G-tube BREAKFAST SUPPLEMENT #0 mL 01/29/23 [Rx Last Taken 01/29/23 09:50] levothyroxine 50 mcg tablet 50 mcg G-tube DAILY@0600 THYROID #0 tabs 01/29/23 [Rx Last Taken 03/15/23] amiodarone 200 mg tablet 200 mg G-tube DAILY AFIB 30 days #30 tabs 02/13/23 [Rx Last Taken 03/14/23] midodrine 5 mg tablet 15 mg (3 x 5 mg) G-tube TIDCM BLOOD PRESSURE 30 days #270 tabs 02/13/23 [Rx Last Taken 03/15/23] budesonide 0.5 mg/2 mL suspension for nebulization 0.5 mg (2 mL) inhalation BID COPD #120 mL 03/11/23 [Rx Last Taken Unknown] ipratropium 0.5 mg-albuterol 3 mg (2.5 mg base)/3 mL nebulization soln 3 ml inhalation Q4H PRN COPD #180 mL 03/11/23 [Rx Last Taken Unknown] apixaban 2.5 mg tablet (Eliquis) 2.5 mg feeding tube BID BLOOD THINNER 03/15/23 [History Last Taken 03/14/23] gabapentin 300 mg capsule 300 mg feeding tube BID NERVE PAIN 03/15/23 [History Last Taken 03/15/23] omeprazole 40 mg capsule,delayed release 40 mg feeding tube DAILY ACID REFLUX 03/15/23 [History Last Taken 03/14/23] Allergy/AdvReac Type Severity Reaction Status Date / Time venom-wasp Allergy Anaphylaxis Verified 03/29/23 10:22 nystatin AdvReac Severe Nausea/Vom/ Verified 03/29/23 10:22 Diarrhea pseudoephedrine HCl AdvReac Severe Unknown Verified 03/29/23 10:22 [From Sudafed] Antihistamines - Alkylamine AdvReac Mild Other Verified 03/29/23 10:22 Family History Father Colon cancer Hypertension Mother Hypertension Surgical History (Updated 03/31/23 @ 00:02 by Tori Dunne) History of gastrostomy History of surgery History of tracheostomy Hx of tonsillectomy S/P percutaneous endoscopic gastrostomy (PEG) tube placement S/P TURP Social History household members: significant other Smoking Status: Former smoker quit date: 04/08/17 pack-years: 55 alcohol intake: never substance use type: does not use ROS ROS ED Constitutional Constitutional ED: Reports fever(s); Denies chills or sweats Eyes Eyes: Denies blurry vision or change in vision ENT ENT ED: Denies ear pain, rhinorrhea or sore throat Cardiovascular Cardiovascular: Denies chest pain, palpitations or racing heartbeat Respiratory/Chest Respiratory/Chest: Reports cough and dyspnea; Denies sputum Gastrointestinal Gastrointestinal: Denies abdominal pain, constipation, diarrhea or vomiting Genitourinary Genitourinary ED: Denies dysuria, hematuria or urinary frequency Musculoskeletal Musculoskeletal: Denies arthralgias, myalgias or neck pain Integumentary Denies abscess, Abrasions or rash Neurologic Neurologic: Denies headache(s), paresthesias or weakness Psychiatric Psychiatric: Denies anxiety, depression, suicidal ideation or suicidal thoughts Endocrine Endocrinology: Denies polydipsia or polyuria EXAM Physical Exam Const Vital Signs: 04/04/23 22:10 Temperature 98.9 F Temperature Source Oral Pulse Rate 98 Respiratory Rate 20 H Blood Pressure 131/73 H Blood Pressure Mean 92 Pulse Ox 91 Oxygen Delivery Method Trach Collar Oxygen Flow Rate (L/min) 4 General Appearance ED: Negative for pallor HEENT Reports moist mucous membranes Eyes PERRL and EOMs intact bilaterally Neck no lymphadenopathy Neck Narrative: No stridor Chest Wall inspection of chest normal Resp normal respiratory effort and clear to auscultation bilaterally Auscultation: Negative for rales, rhonchi or wheezes Cardio regular rate and regular rhythm GI normal to inspection, nondistended, normoactive bowel sounds Neuro oriented x3 and CN's II-XII intact bilaterally Sensorium / Orientation: alert Psych mental status grossly normal Skin no rashes or lesions noted General Skin Exam: Negative for jaundice or pallor MDM MDM MDM Narrative Medical decision making narrative: Patient presenting with generalized weakness and dyspnea. Differential includes pneumonia, COVID, influenza, dehydration, electrolyte abnormalities, dysrhythmia . Patient not complaining of chest pain. CBC was obtained to assess white blood cell count, hemoglobin, platelets. White blood count of 10.3 and hemoglobin near baseline at 8.8. Platelets normal at 187. BMP to assess renal function electrolytes and this is all at baseline. Electrolytes are normal. High-sensitivity troponin is 27. BNP 145.2. Chest x-ray my interpretation shows no acute process. The radiologist interprets this and agrees. Patient well-appearing on his baseline oxygen and COVID and flu are negative. Vitals are stable and he is afebrile. We discussed all the findings and patient is amenable to going discharged home. Impression: 1. Viral syndrome 2. Cough Lab Data Attestation: I reviewed the patient's lab results. Labs: Laboratory Results - last 24 hr 04/04/23 23:37 WBC 10.3 RBC 2.95 L Hgb 8.8 L Hct 28.9 L MCV 98.0 H MCH 29.8 MCHC 30.4 L RDW Std Deviation 57.8 H RDW Coeff of Oz 16.1 H Plt Count 187 MPV 12.3 H Immature Gran % (Auto) 0.400 Neut % (Auto) 80.8 H Lymph % (Auto) 12.6 L [place] % (Auto) 5.2 Eos % (Auto) 0.6 Baso % (Auto) 0.4 Absolute Neuts (auto) 8.3 H Absolute Lymphs (auto) 1.30 Nucleated RBC % 0 Sodium 140 Potassium 4.2 Chloride 102 Carbon Dioxide 34.0 H Anion Gap 4 L BUN 29 H Creatinine 1.61 H Estim Creat Clear Calc 36.45 Est GFR (MDRD) Af Amer 54 L Est GFR (MDRD) Non-Af 45 L BUN/Creatinine Ratio 18.0 Glucose 120 H Calcium 9.9 Troponin I High Sens 27 B-Natriuretic Peptide 145.2 H Radiography Diagnostic Testing: Clinical Impression(s) from Imaging Studies Chest X-Ray 04/04/23 23:43 IMPRESSION: 1. No change in bibasilar parenchymal disease. 2. Unchanged support devices. 3. No other significant interval changes. Electronically Signed: Brad Lambert MD at 0:31 EST , Discharge Plan Triage Chief Complaint: Fever Other Complaint: Weakness ED Provider: Fabio Mc Dx/Rx/DC Orders Instructions: ED Fever Control (Adult), ED Viral Syndrome (Adult) Prescriptions: No Action budesonide 0.5 mg/2 mL suspension for nebulization 0.5 mg inhalation BID Qty: 120 6RF ipratropium-albuterol 0.5 mg-3 mg(2.5 mg base)/3 mL solution for nebulization 3 ml inhalation Q4H PRN (Reason: COPD) Qty: 180 6RF Jevity 1.5 Dipesh 0.06 gram-1.5 kcal/mL Liquid 300 ml G-tube 4X/DAY Qty: 0 0RF Hold Instructions: Order Changed omeprazole 40 mg capsule,delayed release(DR/EC) 40 mg feeding tube DAILY Eliquis 2.5 mg tablet 2.5 mg feeding tube BID Patient Comments: PT STATES THAT THEIR DOCTOR HAS RECENTLY PUT THIS MEDICATION ON HOLD( OF 03-15-23) gabapentin 300 mg capsule 300 mg feeding tube BID levothyroxine 50 mcg Tablet 50 mcg G-tube DAILY@0600 Qty: 0 0RF ferrous sulfate 300 mg (60 mg iron)/5 mL Liquid 300 mg G-tube BREAKFAST Qty: 0 0RF Hold Instructions: Order Completed amiodarone 200 mg Tablet 200 mg G-tube DAILY 30 Days Qty: 30 0RF midodrine 5 mg Tablet 15 mg G-tube TIDCM 30 Days Qty: 270 0RF Primary Care Provider: Alejandro Liu Referrals: Alejandro Liu, PA [Primary Care Provider] - Disposition Disposition: Home, Self Care
[2023-04-05 01:09] VITALS: BP 111/66; PULSE 79; RESP 19; O2SAT 93
== END 2023-04-05 01:28 | disposition home or self-care (01) ==
PROVIDERS: Emergency Provider Student in an Organized Health Care Education/Training Program; PCP Physician Assistant; Visit Provider Student in an Organized Health Care Education/Training Program
DX: R53.1 Weakness (principal); Z93.0 Tracheostomy status; I48.0 Paroxysmal atrial fibrillation; N18.30 Chronic kidney disease, stage 3 unspecified; B34.9 Viral infection, unspecified; Z87.891 Personal history of nicotine dependence; R05.9 Cough, unspecified; Z79.01 Long term (current) use of anticoagulants; R06.02 Shortness of breath
CPT/HCPCS: 36591; 71045; 80048; 83880; 84484; 85025; 87428; 93005; 99283; A4216

== ENCOUNTER 2023-05-03 13:38 | Outpatient (CLI) | payer MEDICARE, OTHER, SELFPAY ==
--- NOTE | 2023-05-03 13:40 | CT_ITS ---
STUDY: CT CHEST T ABDOMEN WITH CONTRAST REASON FOR EXAM: Male, 77 years old. IV ONLY-METASTATIC HYPOPAHRYNX CA RADIATION DOSAGE (If Supplied By Facility): CTDIvol = ( 12.31 ) mGy, DLP = ( 850.29 ) mGycm TECHNIQUE: Transaxial imaging was performed following intravenous administration of IV 100mL Isovue-300. Multiplanar coronal and sagittal images were reformatted. Individualized dose optimization techniques were used for this CT. COMPARISON: Comparison is made with prior study November 09, 2022. FINDINGS: CHEST A tracheostomy tube is seen in situ. A left-sided portacatheter is seen with the tip in the superior vena cava. Small bilateral pleural effusions with bibasilar infiltrates with evidence of bronchiectasis. These have progressed as compared to prior study. The previously seen 5 mm nodule in the lateral aspect of the left upper lobe is not seen at this time. The previously seen 7 mm nodule in the posterior left upper lobe is not seen at this time. There are calcifications of the coronary arteries. There are multiple small lymph nodes within the mediastinum, which are normal in size and morphology most compatible with reactive lymph hyperplasia. Normal hilar regions. Normal unenhanced pulmonary arteries. Normal aorta arch and descending thoracic aorta. There are multi-level degenerative changes of the thoracic spine. Pectus excavatum deformity. ABDOMEN Stable bilateral hepatic cysts. Findings suggestive of small layering gallstones. Normal spleen. Normal pancreas. Normal bilateral adrenal glands. There is a 3.1 cm cyst in the lateral aspect of the midpole of the right kidney. Stable 7.4 mm nonobstructive calculus in the anterior left kidney. Once again, a percutaneous gastrostomy tube is seen anteriorly. Normal small intestine. Normal colon. The appendix is visualized and appears normal. There is diffuse atherosclerotic calcification of the abdominal aorta. Minimal dilatation of the infrarenal abdominal aorta. Normal inferior vena cava. Normal retroperitoneum. Normal abdominal wall. There are diffuse degenerative changes of the visualized lumbar spine. CT/CT Chest AND Abd W/ Contrast IMPRESSION: Essentially stable examination except for nonvisualization of the small nodules in the left lung as described. Electronically Signed: Joshua Schneider MD at 15:01 EST ,
[2023-05-03] MEDS: 0.9% Saline Lock 10 ML Syringe IV (13:55)
== END 2023-05-03 23:59 | disposition home or self-care (01) ==
LOC: CT 13:39
PROVIDERS: PCP Physician Assistant; Referring Provider Internal Medicine Medical Oncology; Visit Provider Internal Medicine Medical Oncology
DX: C78.02 Secondary malignant neoplasm of left lung (principal); C13.8 Malignant neoplasm of overlapping sites of hypopharynx
CPT/HCPCS: 71260; 74160; 96360; 96361; J7120; Q9967; A4216

== ENCOUNTER 2023-07-04 21:41 | Inpatient (IN) | payer MEDICARE, OTHER, SELFPAY ==
[2023-07-04 21:42] VITALS: BP 123/95; PULSE 120; RESP 18; TEMP 38; O2SAT 92; BMI 18.9
[2023-07-04 21:48] VITALS: BP 118/62; PULSE 110; RESP 19; TEMP 37.7; O2SAT 99
--- NOTE | 2023-07-04 22:00 | EDS_ITS ---
HPI History of Present Illness Chief Complaint: General Illness Detail of Chief Complaint: Fever, shortness of breath and cough Informant: parent and spouse/S.O. Limited: other (Patient did not bring his voicebox.) Onset/Context/Timing Onset: Yesterday Context: Gradual Onset Timing: Intermittent Quality: Cough, shortness of breath and temperature 100.4 degrees per Location: Respiratory Current Severity: Mild Maximum Severity: Mild Worsened by: Nothing Relieved by: Nothing Associated Symptoms Associated Symptoms: No vomiting or diarrhea, slight productive cough Narrative Narrative: Patient is a 78-year-old male who was diagnosed with cancer of the hypopharynx 2014. He had a PEG placed and IV access by Dr. Dobbins in 2015 and 2021. Patient goes to the infusion center on Saturday and Saturday for fluids. He was brought to the emergency room because of elevated temperature, increased shortness of breath. His cough is essentially unchanged from baseline. It is productive. It is not abnormal that it is productive. He does have history of aspiration. 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 He denies headache. He does endorse rhinorrhea, congestion postnasal drainage. He denies sore throat. He denies chest discomfort. He denies vomiting or diarrhea. He denies dysuria, frequency, urgency or hematuria. He has history of atrial fibrillation on amiodarone and Eliquis. Prior similar symptoms: Yes Recent Illness/Hospitalization: No [facility] Medical History Acute and chronic respiratory failure with hypoxia Acute dehydration Acute uremia Agranulocytosis secondary to cancer chemotherapy Ambulates with cane Antineoplastic chemotherapy induced anemia Cancer Cardiomyopathy Chronic hypotension CKD (chronic kidney disease), stage III Dietary restriction Dysphagia Former smoker Indwelling urethral catheter present skilled nursing (current) use of systemic steroids Long-term use of high-risk medication Neuropathy On home oxygen therapy PAF (paroxysmal atrial fibrillation) Pneumonia Pneumonitis 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 Shortness of breath on exertion Thrush, oral Tracheostomy in place tracheotomy and laryngeal biopsy Wears glasses Home Medications lactose-reduced food with fiber 0.06 gram-1.5 kcal/mL oral liquid (Jevity 1.5 Dipesh) 300 ml G-tube 4X/DAY NUTRITION #0 mL 01/25/23 [Rx Last Taken 03/14/23] amiodarone 200 mg tablet 200 mg G-tube DAILY AFIB 30 days #30 tabs 02/13/23 [Rx Last Taken 03/14/23] budesonide 0.5 mg/2 mL suspension for nebulization 0.5 mg (2 mL) inhalation BID COPD #120 mL 03/11/23 [Rx Last Taken Unknown] apixaban 2.5 mg tablet (Eliquis) 2.5 mg feeding tube BID BLOOD THINNER 03/15/23 [History Last Taken 03/14/23] omeprazole 40 mg capsule,delayed release 40 mg feeding tube DAILY ACID REFLUX 03/15/23 [History Last Taken 03/14/23] gabapentin 300 mg capsule 300 mg feeding tube BID NERVE PAIN #60 caps 04/22/23 [Rx Last Taken Unknown] midodrine 5 mg tablet 15 mg (3 x 5 mg) G-tube TIDCM BLOOD PRESSURE 30 days #270 tabs 04/22/23 [Rx Last Taken Unknown] levothyroxine 50 mcg tablet 50 mcg G-tube DAILY@0600 THYROID 90 days #90 tabs 05/20/23 [Rx Last Taken Unknown] guaifenesin 100 mg/5 mL oral liquid 100 mg PO PRN congestion 06/10/23 [History Last Taken Unknown] ipratropium 0.5 mg-albuterol 3 mg (2.5 mg base)/3 mL nebulization soln 3 ml inhalation Q4H PRN COPD #180 mL 06/10/23 [Rx Last Taken Unknown] Allergy/AdvReac Type Severity Reaction Status Date / Time venom-wasp Allergy Anaphylaxis Verified 07/04/23 21:42 nystatin AdvReac Severe Nausea/Vom/ Verified 07/04/23 21:42 Diarrhea pseudoephedrine HCl AdvReac Severe Unknown Verified 07/04/23 21:42 [From Sudafed] Antihistamines - Alkylamine AdvReac Mild Other Verified 07/04/23 21:42 Family History Father Colon cancer Hypertension Mother Hypertension Surgical History History of gastrostomy History of surgery History of tracheostomy Hx of tonsillectomy S/P percutaneous endoscopic gastrostomy (PEG) tube placement S/P TURP Social History household members: significant other Smoking Status: Former smoker quit date: 04/08/17 pack-years: 55 alcohol intake: never substance use type: does not use ROS ROS ED Constitutional Constitutional ED: Reports fever(s) and weight loss; Denies chills or sweats Eyes Eyes: Denies blurry vision, change in vision or diplopia ENT ENT ED: Reports rhinorrhea; Denies ear pain or sore throat Cardiovascular Cardiovascular: Denies chest pain, orthopnea, palpitations, paroxysmal nocturnal dyspnea or racing heartbeat Respiratory/Chest Respiratory/Chest: Reports cough, dyspnea and sputum; Denies orthopnea or paroxysmal nocturnal dyspnea Gastrointestinal Gastrointestinal: Denies abdominal pain, diarrhea, melena or vomiting Genitourinary Genitourinary ED: Denies dysuria, hematuria or urinary frequency Musculoskeletal Musculoskeletal: Denies arthralgias or myalgias Integumentary Denies abscess or rash Neurologic Neurologic: Reports weakness; Denies headache(s) or paresthesias Endocrine Endocrinology: Denies cold intolerance or heat intolerance Hematologic/Lymphatic Hematologic/Lymphatic: Reports systems reviewed and no addt'l complaints, except as documented EXAM Physical Exam Const Vital Signs: 07/04/23 21:42 07/04/23 22:14 07/04/23 21:48 Temperature 100.4 F H 99.8 F H Temperature Source Temporal Oral Pulse Rate 120 H 110 H Respiratory Rate 18 19 H Respiratory Effort Normal Respiratory Pattern Tachypnea Blood Pressure 123/95 H 118/62 Blood Pressure Mean 104 80 Pulse Ox 92 99 Oxygen Delivery Method Nasal Cannula Trach Collar Oxygen Flow Rate (L/min) 4 4 07/04/23 22:48 Temperature 101.4 F H Temperature Source Oral Pulse Rate 97 Respiratory Rate 21 H Respiratory Effort Respiratory Pattern Blood Pressure 91/57 L Blood Pressure Mean 68 Pulse Ox 100 Oxygen Delivery Method Room Air Oxygen Flow Rate (L/min) 4 Positive well developed and cachectic Constitutional Narrative: Patient is tachycardic. He is febrile. General Appearance ED: well developed, cachectic, NAD and pallor Nutritional Appearance: cachectic HEENT Reports dry mucous membranes HEENT Narrative: Head is atraumatic, cephalic. Ears normal. Nares patent. Mouth ED: Yes dry mucous membranes Mouth: dry mucous membranes Eyes PERRL and EOMs intact bilaterally General Eye ED: Yes pale conjunctiva; Negative for scleral icterus Neck no lymphadenopathy and supple Neck Narrative: Patient has a tracheostomy in place. There is secretions noted which is slightly cloudy and white Chest Wall inspection of chest normal and palpation of chest normal Resp normal respiratory effort and No clear to auscultation bilaterally Auscultation: rales bilateral base and diminished lung sounds left (Upper lung field. Port is noted on the left side. It has been accessed.) Cardio S1 normal heart sound, S2 normal heart sound and no murmurs Rate: tachycardic GI normal to inspection, nondistended, normoactive bowel sounds, non-tender and non-distended GI Narrative: Patient has a feeding tube noted. There is no erythema around port site. Back/Spine no CVA tenderness Extremity normal to inspection General Extremety ED: Negative for edema or tenderness General Extremity: Negative for edema Neuro CN's II-XII intact bilaterally Neuro Narrative: Moves all extremities. He appears to be awake and alert. Psych Mood & Affect: depressed Skin no rashes or lesions noted, no wounds and No skin turgor normal General Skin Exam: pallor; Negative for elasticity normal or jaundice Sepsis Attestation Sepsis Alert: Yes Sepsis Attestation: Agree w/Sepsis Date exam was performed: 07/04/23 Time exam was performed: 22:53 Possible Source of Sepsis: Pulmonary Supportive Findings: Patient had an echo December 2022 which revealed an estimated ejection fracture between 35 and 40%. There is moderate LV systolic dysfunction with global LV hypokinesis. No significant valvular abnormality noted. There is no comparison echo. Patient had his drop in his blood pressure. Because he has cardiomyopathy with reduced ejection fraction will only give 500 cc bolus at this time. His systolic is above 90 and his mean arterial is above 65. MDM MDM MDM Narrative Medical decision making narrative: Differential diagnosis would include viral illness, pneumonia, doubt GI since he has no vomiting or diarrhea. Doubt urologic since he has no urologic symptoms. There are no skin lesions to suggest cellulitis. History & Record Review Additional record(s) reviewed:: Prior inpatient record, Prior outpatient record (Outpatient records documented by Dr. Griffin for PEG tube and IV access. Outside records from other facilities as well.), Prior ED visit and Prior labs Lab Data Attestation: I reviewed the patient's lab results. Lab results narrative: White count is normal. There is a slight shift. Patient does have evidence of anemia with an H&H of 9.9 and 32.5. H&H is unchanged from prior. [facility] metabolic panel reveals elevated CO2. Patient had elevated CO2 in the past. Creatinine is 1.6 with an estimated GFR 45. Glucose is 129 with normal anion gap. BUN to creatinine ratio is elevated at 25-1. This may represent prerenal azotemia. Labs: Laboratory Results - last 24 hr 07/04/23 22:05 WBC 5.2 RBC 3.31 L Hgb 9.9 L Hct 32.5 L MCV 98.2 H MCH 29.9 MCHC 30.5 L RDW Std Deviation 60.3 H RDW Coeff of Oz 16.7 H Plt Count 100 L MPV 12.7 H Immature Gran % (Auto) 0.200 Neut % (Auto) 76.4 H Lymph % (Auto) 12.4 L Mason % (Auto) 10.4 H Eos % (Auto) 0.4 Baso % (Auto) 0.2 Absolute Neuts (auto) 4.0 Absolute Lymphs (auto) 0.64 L Nucleated RBC % 0 Sodium 141 Potassium 4.0 Chloride 103 Carbon Dioxide 33.0 H Anion Gap 5 BUN 40 H Creatinine 1.60 H Estim Creat Clear Calc 33.22 Est GFR (MDRD) Af Amer 54 L Est GFR (MDRD) Non-Af 45 L BUN/Creatinine Ratio 25.0 H Glucose 129 H Lactic Acid 0.9 Calcium 9.8 Total Bilirubin 0.40 AST 34 ALT 39 Alkaline Phosphatase 73 Total Protein 7.8 Albumin 3.1 L Globulin 4.7 H Albumin/Globulin Ratio 0.7 L Radiography Chest X-Ray - ED: 2 View and Read by ED Physician (Dependent reviewed interpreted by me at 2221. Patient has infiltrate noted on lateral. When compared to 2022 this is improved. There may be a small effusion.) Diagnostic Testing: Clinical Impression(s) from Imaging Studies Chest X-Ray 07/04/23 22:07 IMPRESSION: Bilateral lower lobe aspiration/pneumonia suspected in the appropriate clinical setting. Electronically Signed: Brad Lambert MD at 23:14 EDT , Treatment and Re-Evaluation :: Patient was treated with 3.0 g of Unasyn since he has history of aspiration pneumonia. Would expect his infiltrate to clear from 4 to 5 months ago. In light of this suspect this is a new infiltrate. Comments:: Had discussion regarding CODE STATUS.. Patient does not want to be placed on life support i.e. ventilator. He did want CPR. Patient was told that patient to have CPR and are not intubated do not do well. He still request CPR. Discharge Plan Dx/Rx/DC Orders Clinical Impression: Aspiration pneumonia of both lower lobes, Secondary malignant neoplasm of left lung, Primary malignant neoplasm of hypopharynx, Sepsis, Acute hypotension, Long-term use of high-risk medication, Severe malnutrition, Acute prerenal azotemia, Cardiomyopathy, DNR (do not resuscitate) discussion Disposition Disposition: [facility]
[2023-07-04] MEDS: 0.9% Normal Saline (1000mL) 1,000 ML 1000 ML IV (22:04)
--- NOTE | 2023-07-04 22:07 | RAD_ITS ---
EXAM: XR CHEST, 2 VIEWS CLINICAL INDICATION: Cough, fever TECHNIQUE: Frontal and lateral views of the chest. COMPARISON: No relevant prior studies available. FINDINGS: LUNGS AND PLEURAL SPACES: No pleural effusions or pneumothorax. HEART: See below. MEDIASTINUM: No hilar or mediastinal enlargement. No cardiomegaly. BONES/JOINTS: Degenerative changes of the spine. No acute fracture. SOFT TISSUES: Unremarkable. TUBES, LINES AND DEVICES: Chest port identified with tip at the cavoatrial junction. Heterogeneous airspace disease involving the retrocardiac region of the left lower lobe and also involving the right lower lobe. RAD/Chest PA and Lateral IMPRESSION: Bilateral lower lobe aspiration/pneumonia suspected in the appropriate clinical setting. Electronically Signed: Brad Lambert MD at 23:14 EDT ,
[2023-07-04 22:17] LABS: Absolute Lymphocyte Count 0.64 X10^3/uL (0.83-4.51); Basophil# 0.01 X10^3/uL; Basophil% 0.2 % (0-1); Eosinophil# 0.02 X10^3/uL; Eosinophils% 0.4 % (0-5); Hematocrit 32.5 % (40-54); Hemoglobin 9.9 g/dL (13.0-16.5); Lymphocyte # 0.64 X10^3/ul (0.83-4.51); Lymphocyte % 12.4 % (19-41); Mean Corp Hgb Conc 30.5 g/dL (32-36); Mean Corpuscular Hgb 29.9 pg (27.0-32.0); Mean Corpuscular Volume 98.2 fL (80-94); Mean Platelet Vol. 12.7 fl (6.2-12.0); Monocyte# 0.54 X10^3/uL; Monocyte% 10.4 % (0-10); NRBC Flagged by Analyzer 0 % (0-5); Neutrophil # 3.96 X10^3/uL (2.7-7.7); Neutrophil % 76.4 % (47-70); Platelet Count 100 K/mm3 (150-450); RBC Distribution Width CV 16.7 % (11.6-14.6); RBC Distribution Width SD 60.3 fl (35.1-43.9); Red Blood Count 3.31 M/mm3 (4.6-6.2); White Blood Count 5.2 K/mm3 (4.4-11.0)
[2023-07-04 22:29] LABS: ALB/GLOB Ratio 0.7 RATIO (0.9-2.4); AST(SGOT) 34 U/L (15-37); Alanine Aminotransfer ALT/SGPT 39 U/L (16-61); Albumin, Serum 3.1 g/dL (3.2-5.0); Alkaline Phosphatase 73 U/L (45-117); Anion Gap 5 (5-15); BUN 40 mg/dL (7-18); Calcium,Total 9.8 mg/dL (8.5-10.1); Chloride 103 mmol/L (98-107); EST Glomerular Filtration Rate 45 mL/min (>60); Est Glom Filt Rate - Afr Amer 54 mL/min (>60); Estimated Creatinine Clearance 33.22 ml/min; Globulin 4.7 g/dL (2.2-4.2); Glucose 129 mg/dL (74-106); Protein, Total 7.8 g/dL (6.4-8.2); Sodium Level 141 mmol/L (136-145)
[2023-07-04 22:34] LABS: Lactic Acid 0.9 mmol/L (0.4-1.9)
[2023-07-04 22:48] VITALS: BP 91/57; PULSE 97; RESP 21; TEMP 38.6; O2SAT 100
[2023-07-04] MEDS: 0.9% Normal Saline (500mL Bag) 500 ML 999 ML IV (23:25)
[2023-07-04] MEDS: Ampicillin/Sulbactam 3 GM in 0.9% Normal Saline (100mL MB+) 100 ML IV (23:26)
--- NOTE | 2023-07-04 23:31 | ED.RN ---
Page for hospitalist.
--- NOTE | 2023-07-04 23:34 | PCM.HP.STD ---
[facility] - General General Date of Admission: 07/05/23 Date of Service: 07/04/23 Chief Complaint: Fever, Shortness of Breath and Cough. 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 Mr. Dumont did not bring his artificial voicebox but his reports his symptoms began approximately 1 day prior to admission with increasing shortness of breath at rest followed by fever of 100.4 ?F. He also admits to a cough productive of yellowish sputum but this is unchanged from baseline. He does endorse a history of runny nose, sinus congestion and postnasal drainage. He denies associated headache, sore throat, chest pain, dysuria, urinary frequency, nausea, vomiting or diarrhea. He admits to similar symptoms previously attributed to aspiration pneumonia. His also went on to explain because his blood pressure was in the 120-140 mm Hg systolic range earlier in the day she decided to hold his midodrine which he routinely takes 15 mg p.o. 3 times daily. In the ER he was noted to have radiographic evidence of bilateral pneumonia likely due to to recurrent aspiration complicated by clinical evidence of [id number] hypoxic respiratory insufficiency with positive criteria for sepsis and laboratory evidence of moderate thrombocytopenia of 100 present on admission and he was then admitted to the PCU for ongoing care for stay that is expected to be greater than 48 hours. [facility] Medical History Acute and chronic respiratory failure with hypoxia Acute dehydration Acute uremia Agranulocytosis secondary to cancer chemotherapy Ambulates with cane Antineoplastic chemotherapy induced anemia Cancer Cardiomyopathy Chronic hypotension CKD (chronic kidney disease), stage III Dietary restriction Dysphagia Former smoker Indwelling urethral catheter present MCFP (current) use of systemic steroids Long-term use of high-risk medication Neuropathy On home oxygen therapy PAF (paroxysmal atrial fibrillation) Pneumonia Pneumonitis 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 Shortness of breath on exertion Thrush, oral Tracheostomy in place tracheotomy and laryngeal biopsy Wears glasses Home Medications lactose-reduced food with fiber 0.06 gram-1.5 kcal/mL oral liquid (Jevity 1.5 Dipesh) 300 ml G-tube 4X/DAY NUTRITION #0 mL 01/25/23 [Rx Last Taken 03/14/23] amiodarone 200 mg tablet 200 mg G-tube DAILY AFIB 30 days #30 tabs 02/13/23 [Rx Last Taken 03/14/23] budesonide 0.5 mg/2 mL suspension for nebulization 0.5 mg (2 mL) inhalation BID COPD #120 mL 03/11/23 [Rx Last Taken Unknown] apixaban 2.5 mg tablet (Eliquis) 2.5 mg feeding tube BID BLOOD THINNER 03/15/23 [History Last Taken 03/14/23] omeprazole 40 mg capsule,delayed release 40 mg feeding tube DAILY ACID REFLUX 03/15/23 [History Last Taken 03/14/23] gabapentin 300 mg capsule 300 mg feeding tube BID NERVE PAIN #60 caps 04/22/23 [Rx Last Taken Unknown] midodrine 5 mg tablet 15 mg (3 x 5 mg) G-tube TIDCM BLOOD PRESSURE 30 days #270 tabs 04/22/23 [Rx Last Taken Unknown] levothyroxine 50 mcg tablet 50 mcg G-tube DAILY@0600 THYROID 90 days #90 tabs 05/20/23 [Rx Last Taken Unknown] guaifenesin 100 mg/5 mL oral liquid 100 mg PO Q6H PRN congestion 06/10/23 [History Last Taken Unknown] ipratropium 0.5 mg-albuterol 3 mg (2.5 mg base)/3 mL nebulization soln 3 ml inhalation Q4H PRN COPD #180 mL 06/10/23 [Rx Last Taken Unknown] ipratropium bromide 42 mcg (0.06 %) nasal spray 2 spray intranasal BID 07/04/23 [History Last Taken Unknown] Allergy/AdvReac Type Severity Reaction Status Date / Time venom-wasp Allergy Anaphylaxis Verified 07/04/23 21:42 nystatin AdvReac Severe Nausea/Vom/ Verified 07/04/23 21:42 Diarrhea pseudoephedrine HCl AdvReac Severe Unknown Verified 07/04/23 21:42 [From Sudafed] Antihistamines - Alkylamine AdvReac Mild Other Verified 07/04/23 21:42 Family History Father Colon cancer Hypertension Mother Hypertension Surgical History History of gastrostomy History of surgery History of tracheostomy Hx of tonsillectomy S/P percutaneous endoscopic gastrostomy (PEG) tube placement S/P TURP Social History household members: significant other Smoking Status: Former smoker quit date: 04/08/17 pack-years: 55 alcohol intake: never substance use type: does not use ROS ROS Narrative Review of systems: General: Patient admits to fever but denies chills or sweats. HENT: Patient admits to runny nose and sinus congestion but denies ear pain or sore throat. EYES: Denies changes in vision or discharge from eyes. Resp: Patient admits to productive cough cough and mild shortness of breath at rest as per HPI. Cardiac: Denies chest pain or palpitations. GI: Denies abdominal pain, denies changes in bowel, denies nausea or vomiting. : Denies changes in urination Extremity: Denies swelling Musculoskeletal: Feels somewhat generally weak and unwell but denies arthralgias or myalgias. Neuro: Patient denies headache, paresthesias or focal neurologic deficits. Heme: Denies any bleeding or bruising Skin: Denies rashes Psychiatric: No complaints voiced related to uncontrolled depression or anxiety. Endocrine: No polyuria, polydipsia or polyphagia. The rest of the 14 point ROS was negative except for positives in HPI. Vital Signs Vital Signs Vital Signs: 07/04/23 21:42 07/04/23 22:14 07/04/23 21:48 Temperature 100.4 F H 99.8 F H Temperature Source Temporal Oral Pulse Rate 120 H 110 H Respiratory Rate 18 19 H Respiratory Effort Normal Respiratory Pattern Tachypnea Blood Pressure 123/95 H 118/62 Blood Pressure Mean 104 80 Pulse Ox 92 99 Oxygen Delivery Method Nasal Cannula Trach Collar Oxygen Flow Rate (L/min) 4 4 07/04/23 22:48 Temperature 101.4 F H Temperature Source Oral Pulse Rate 97 Respiratory Rate 21 H Respiratory Effort Respiratory Pattern Blood Pressure 91/57 L Blood Pressure Mean 68 Pulse Ox 100 Oxygen Delivery Method Room Air Oxygen Flow Rate (L/min) 4 Weight Weight: 131 lb 13.383 oz Body Mass Index (BMI) 18.9 Physical Exam Const alert, oriented x3 and no apparent distress Constitutional Narrative: Patient appears chronically ill and cachectic. He forgot his artificial voicebox so he is communicating with gestures and by reading of lips. General Appearance: cooperative HEENT normocephalic, head/scalp atraumatic and hearing grossly normal bilaterally HEENT Narrative: Mucous membranes dry. Eyes PERRL and EOMs intact bilaterally Eyes Narrative: Conjunctivae pale. Negative for scleral icterus. Neck no lymphadenopathy and supple Neck Narrative: Tracheostomy device in place. Resp Resp Narrative: Diminished breath sounds throughout. Cardio regular rate and regular rhythm GI normal to inspection, nondistended, normoactive bowel sounds, soft to palpation, non-tender and non-distended GI Narrative: PEG tube in place. There is no erythema or other signs of acute infection around the port site. Extremity normal to inspection, full ROM and no clubbing, cyanosis or edema Skin Skin Narrative: Patient has no evidence of rash or abscess at this time. Neuro oriented x3, CN's II-XII intact bilaterally, moves all extremities and no focal motor deficits Sensorium / Orientation: awake, alert, oriented to person, oriented to place and oriented to time Psych affect normal Results Medical Records Data Attestation: I reviewed the patient's medical records Lab / Micro Data Attestation: I reviewed the patient's lab results. Lab results narrative: RUN DATE: 07/05/23 [facility], DEPARTMENT OF LABORATORIES PAGE 1 RUN TIME: 0013 Specimen Inquiry [address], [place], [address] PATIENT: SERENITY DUMONT LOC: ED U #: [id number] : 1945 AGE/SX: 78/M FACILITY: [facility] ROOM: RE07/04/[address]: Dr. Twin Torres MD STATUS:REG ER ED: DIS: ~ SPEC #: [id number] __ GLYNN: 07/04/23 STATUS: COMP REQ #: [id number] SOURCE: Mucosa RECD: 07/04/23-[address]: Dr. Twin Torres MD SPSESC: Nose ENTR: 07/04/23-[address]: LEÓN Fung ~ ORDERED: COV+FLU+RSV PCR Procedure Result Verified COV + FLU + RSV PCR Final 07/04/23 SARS-CoV-2 (COVID 19) Negative INFLUENZA A Negative INFLUENZA B Negative RSV PCR Negative END OF REPORT 07/04/23 22:05 07/04/23 22:05 Labs: Laboratory Results - last 24 hr 07/04/23 22:05: WBC 5.2, RBC 3.31 L, Hgb 9.9 L, Hct 32.5 L, MCV 98.2 H, MCH 29.9, MCHC 30.5 L, RDW Std Deviation 60.3 H, RDW Coeff of Oz 16.7 H, Plt Count 100 L, MPV 12.7 H, Immature Gran % (Auto) 0.200, Neut % (Auto) 76.4 H, Lymph % (Auto) 12.4 L, Nicholas % (Auto) 10.4 H, Eos % (Auto) 0.4, Baso % (Auto) 0.2, Absolute Neuts (auto) 4.0, Absolute Lymphs (auto) 0.64 L, Nucleated RBC % 0, Sodium 141, Potassium 4.0, Chloride 103, Carbon Dioxide 33.0 H, Anion Gap 5, BUN 40 H, Creatinine 1.60 H, Estim Creat Clear Calc 33.22, Est GFR (MDRD) Af Amer 54 L, Est GFR (MDRD) Non-Af 45 L, BUN/Creatinine Ratio 25.0 H, Glucose 129 H, Lactic Acid 0.9, Calcium 9.8, Total Bilirubin 0.40, AST 34, ALT 39, Alkaline Phosphatase 73, Total Protein 7.8, Albumin 3.1 L, Globulin 4.7 H, Albumin/Globulin Ratio 0.7 L Micro: Microbiology 07/04/23 22:35 Mucosa - Nose SARS-CoV-2, Influenza & RSV (PCR) - Final Imaging Radiology Impression Chest X-Ray 07/04/23 22:07 IMPRESSION: Bilateral lower lobe aspiration/pneumonia suspected in the appropriate clinical setting. Electronically Signed: Brad Lambert MD at 23:14 EDT Reading Location ID and State: [facility] / [place] Tel , Service support , Assessment & Plan Assessment/Plan (1) Sepsis: QUALIFIERS: Sepsis acute organ dysfunction status: without acute organ dysfunction Sepsis type: sepsis due to unspecified organism Qualified Code(s): A41.9 - Sepsis, unspecified organism (2) Aspiration pneumonia of both lower lobes: QUALIFIERS: Aspiration pneumonia type: unspecified Qualified Code(s): J69.0 - Pneumonitis due to inhalation of food and vomit (3) Respiratory insufficiency: (4) PAF (paroxysmal atrial fibrillation): PLAN: Plan 1. 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 Continue broad-spectrum antibiotics and await culture and sensitivity data. 2. [id number] hypoxic respiratory insufficiency due to #1 - Wean additional supplemental oxygen as tolerated back to baseline levels. 3. DNR CCA CODE STATUS; without intubation - Patient reports he wants compressions but no intubation. We will continue with conservative plan for treatment. 4. Moderate thrombocytopenia of 100 present on admission in the setting of known previous agranulocytosis attributed to chemotherapy - Check CBC daily to ensure continued stability. 5. Orthostatic hypotension; on midodrine - Resume as previous. 6. Hypothyroidism - Continue Synthroid and check TSH in light of #1. 7. Paroxysmal atrial fibrillation; on amiodarone and apixaban - Resume home regimen as previous. 8. History of tobacco abuse (quit 2017) - Noted. 9. History of cardiomyopathy; with LVEF ~35% - Stable. 10. Chronic kidney disease; stage III - Stable. Give volume resuscitation and follow-up BMP daily to ensure continued stability. 11. Neuropathy - Resume gabapentin as previous. 12. BPH; s/p TURP with chronic indwelling Maxwell - Stable. 13. DVT prophylaxis - Patient is already on Eliquis for #7 which will be continued. Total time: Approximately 95 minutes. Sepsis Attestation Sepsis Alert: Yes Sepsis Attestation: Agree w/Sepsis Date exam was performed: 07/04/23 Time exam was performed: 23:30 Possible Source of Sepsis: Pulmonary Sepsis Organ Dysfunction Criteria Present: SBP < 90 mmHg or MAP < 65 mmHg Fluid Resuscitation Fluid resuscitation indicated?: Yes Fluid Resuscitation ordered: 30 ml/kg fluid bolus ordered Amount of fluid ordered: 2 Sepsis Note Date exam was performed: 07/05/23 Time exam was performed: 03:30 Sepsis Attestation: Sepsis re-evaluation was performed Response to fluids: Non Fluid responsive hypotension Charges/Coding Visit Charges Inpatient E&M: 46337 Init Hosp L3
[2023-07-05] VITALS (22 sets, daily range): BP systolic 79–126; BP diastolic 47–72; PULSE 70–101; RESP 14–29; TEMP 36.2–37.7; O2SAT 94–100; BMI 18.4
[2023-07-05] MEDS: Acetaminophen 650 MG/20 ML UDC GT (00:03)
--- NOTE | 2023-07-05 00:41 | ED.RN ---
PT HYPOTENSIVE WITH BP 84/51. DOCTOR ABBI GUY AT BEDSIDE. I WAS INSTRUCTED TO 10MG PT-GTUBE MIDODRINE NOW. 0040: PHARMACY CALLED TO HAVE FLOOR ORDER SENT TO ER.
[2023-07-05] MEDS: 0.9% Normal Saline (1000mL) 1,000 ML 999 ML IV ×2 (00:45→03:00)
[2023-07-05] MEDS: Midodrine HCl 5 MG Tablet 15 MG GT ×3 (00:50→17:26)
[2023-07-05] MEDS: Albumin Human 25% (100 mL) 25 GM/100 ML BAG IV (01:23)
[2023-07-05] MEDS: Vancomycin HCl 1,500 MG in 0.9% Normal Saline (500mL Bag) 500 ML 250 MG IV (02:14)
--- NOTE | 2023-07-05 02:55 | PCM.RX.CS ---
Consult Antibiotic Management Pharmacy has been consulted to manage selected antibiotic: Vancomycin Type of Intervention Type of Consult: New start Suspected Infection Suspected Infection: Sepsis and Pneumonia Labs Labs: Sodium 141 mmol/L (136-145) 07/04/23 22:05 Potassium 4.0 mmol/L (3.5-5.1) 07/04/23 22:05 Chloride 103 mmol/L (98-107) 07/04/23 22:05 Carbon Dioxide 33.0 mmol/L (21.0-32.0) H 07/04/23 22:05 Anion Gap 5 (5-15) 07/04/23 22:05 BUN 40 mg/dL (7-18) H 07/04/23 22:05 Creatinine 1.60 mg/dL (0.70-1.30) H 07/04/23 22:05 Est GFR (MDRD) Af Amer 54 mL/min (>60) L 07/04/23 22:05 Est GFR (MDRD) Non-Af 45 mL/min (>60) L 07/04/23 22:05 BUN/Creatinine Ratio 25.0 RATIO (10-20) H 07/04/23 22:05 Glucose 129 mg/dL (74-106) H 07/04/23 22:05 Microbiology Microbiology: Microbiology 07/04/23 22:35 Mucosa - Nose SARS-CoV-2, Influenza & RSV (PCR) - Final Dosing Weight Weight used for dosin.8 kg Estimated Creatinine Clearance Estimated Creatinine Clearance: 33 Goal Trough Goal Trough: 15-20 mcg/mL Pharmacy Plan for Drug Dosing Pharmacy Plan for Drug Dosing: Pharmacy Service will continue to monitor and adjust dosing as required. Follow-Up Labs Follow-Up Labs: Trough: Vancomycin Date/Time Labs Ordered Labs to be done on [date and time ordered]: 07/07/23 @0136
--- NOTE | 2023-07-05 05:04 | CPS ---
Patient declines Cool aerosol at this time
--- NOTE | 2023-07-05 05:55 | RAD_ITS ---
INDICATION: Aspiration pneumonia with sepsis. EXAMINATION/TECHNIQUE: X-RAY - XR Chest 1 View AP portable. 5:56 AM COMPARISON: 07/04/2023 FINDINGS: LINES/DEVICES: Tracheostomy tube, central venous catheter unchanged. LUNGS: Opacities in the lung bases, greater on the left, increased compared to the prior. No pneumothorax. MEDIASTINUM: Unremarkable. CARDIAC SILHOUETTE: Not enlarged. BONES AND SOFT TISSUES: No acute abnormalities. RAD/Chest 1 View (Portable) IMPRESSION: Increased bibasilar consolidation/pneumonia. Electronically Signed: Claudia Gordon MD at 6:52 EDT ,
[2023-07-05] MEDS: Levothyroxine 50 MCG Tablet GT (05:57)
[2023-07-05] MEDS: Piperacil/Tazobactam 3.375 GM in 0.9% Normal Saline (50mL MB+) 50 ML IV ×3 (05:57→23:03)
[2023-07-05] MEDS: 0.9% Saline Lock 10 ML Syringe IV (06:17)
[2023-07-05 06:18] LABS: Absolute Lymphocyte Count 1.32 X10^3/uL (0.83-4.51); Absolute Neutrophil Count 2.9 X10^3/uL (2.0-7.7); Basophil# 0.03 X10^3/uL; Basophil% 0.6 % (0-1); Eosinophil# 0.02 X10^3/uL; Eosinophils% 0.4 % (0-5); Hematocrit 25.2 % (40-54); Hemoglobin 7.6 g/dL (13.0-16.5); Lymphocyte # 1.32 X10^3/ul (0.83-4.51); Lymphocyte % 27.4 % (19-41); Mean Corp Hgb Conc 30.2 g/dL (32-36); Mean Corpuscular Hgb 29.8 pg (27.0-32.0); Mean Corpuscular Volume 98.8 fL (80-94); Mean Platelet Vol. 12.9 fl (6.2-12.0); Monocyte# 0.57 X10^3/uL; Monocyte% 11.8 % (0-10); NRBC Flagged by Analyzer 0 % (0-5); Neutrophil # 2.87 X10^3/uL (2.7-7.7); Neutrophil % 59.6 % (47-70); POSITIVE COUNT YES; POSITIVE MORPHOLOGY YES; Platelet Count 79 K/mm3 (150-450); RBC Distribution Width SD 60.9 fl (35.1-43.9); Red Blood Count 2.55 M/mm3 (4.6-6.2); White Blood Count 4.8 K/mm3 (4.4-11.0)
[2023-07-05 07:08] LABS: ALB/GLOB Ratio 0.7 RATIO (0.9-2.4); AST(SGOT) 24 U/L (15-37); Alanine Aminotransfer ALT/SGPT 26 U/L (16-61); Albumin, Serum 2.6 g/dL (3.2-5.0); Alkaline Phosphatase 45 U/L (45-117); Anion Gap 3 (5-15); BUN 33 mg/dL (7-18); BUN/Creat Ratio 23.4 RATIO (10-20); Calcium,Total 8.6 mg/dL (8.5-10.1); Chloride 112 mmol/L (98-107); Creatinine, Serum 1.41 mg/dL (0.70-1.30); EST Glomerular Filtration Rate 52 mL/min (>60); Est Glom Filt Rate - Afr Amer 63 mL/min (>60); Estimated Creatinine Clearance 36.82 ml/min; Globulin 3.5 g/dL (2.2-4.2); Glucose 101 mg/dL (74-106); Potassium 3.9 mmol/L (3.5-5.1); Protein, Total 6.1 g/dL (6.4-8.2); Sodium Level 143 mmol/L (136-145)
[2023-07-05] MEDS: Pantoprazole Sodium 40 MG in 0.9% Normal Saline (100mL MB+) 100 ML 330 MG IV (09:53)
[2023-07-05] MEDS: Ipratropium Bromide 0.06% NASAL SPRAY 2 SPRAY NASAL ×2 (09:55→23:04)
[2023-07-05] MEDS: Amiodarone 200 MG Tablet GT (09:56)
[2023-07-05] MEDS: APIXABAN 2.5 MG TABLET (WCH) GT ×2 (09:57→23:04)
[2023-07-05] MEDS: Zinc Sulfate 50 mg zinc (220 mg) ORAL capsule PO (09:57)
--- NOTE | 2023-07-05 13:00 | CASEMGMT ---
LORRIE RIVAS Assessment: Face to Face with pt for initial transition planning/care coordination assessment. RN CM introduced self and role at [facility], pt voices understanding and consents to assessment. Pt is A&O x4 and answers all questions appropriately at this time. Pt sitting up in bed with trach collar on in no distress. Pt SO at bedside. Care providers, pharmacy, and demographics verified/updated. Admitting Dx: Aspiration Pneumonitis PCP:LEÓN Knowles Specialists:[place], onc; Nathan, pulm; Santos nephro; Pastor, ENT, eye dr in [place] Preferred Pharmacy:[facility] Insurance:[employer], [employer] Sr Supp Prescription Benefit: yes LNOK:Christiane Graham (SO) Living Arrangements: Pt lives with sig other in a single story home with 2 steps to enter with HR. ADLs/IADLs: Pt SO helps the pt Transportation: SO DME:Oxygen through [employer]. Confirmed current order is 3L continuous via trach mask. Pt has a concentrator, portable tanks, and P Ox at home. Pt SO states that she has a portable tank in her car at this time for time of DC. Pt also has a walker, rollator, hospital bed, supplies for TF through [facility], BP Cuff. HHC/SNF: History with [facility] HHC (SN, PT, OT). Pt has been to [facility] TCU in the past. Pt Goal: Pt would like to DC home with HHC. Refused SNF. Plan: Pt 6-Click score is 17. Home with HHC pending therapy evals. Follow for increased oxygen needs. CM to follow for safe DC from [facility].
[2023-07-05 13:52] LABS: Prealbumin 14.5 mg/dL (20.0-40.0); Thyroid Stim Hormone (TSH) 1.85 uIU/mL (0.358-3.74)
--- NOTE | 2023-07-05 14:34 | CASEMGMT ---
LORRIE RIVAS called and made referral to [facility]. [facility] able to accept with start of care on Saturday07/09/23. RN EVELYN updated and patient. Discharge plan updated.
[2023-07-05] MEDS: Pivot 1.5 Cal 1,000 ML BOTTLE 240 ML GT ×3 (14:43→23:31)
--- NOTE | 2023-07-05 16:01 | PN.HOSP_ITS ---
Reason for Visit Reason for Visit: Fever/shortness of breath/cough Subjective Subjective Mr. 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 He and his reported that his symptoms began ap proximately 1 day prior to admission with increasing shortness of breath at rest followed by fever 100.4. He also admitted to a cough productive of yellowish sputum but indicated this was really unchanged from his previous baseline. He did complain of a history of runny nose and sinus congestion as well as postnasal drip. He denied any pharyngitis, chest pain, dysuria, frequency or nausea, vomiting, diarrhea. He admitted that he had symptoms similar to this with previous episodes of aspiration pneumonia. His also reported that his blood pressure was 120-140 in the systolic range earlier in the day and she decided to hold his midodrine which he routinely takes 15 mg 3 times daily. In the emergency department he was noted to have radiographic evidence of bilateral pneumonia likely due to recurrent aspiration complicated by acute on chronic hypoxic respiratory failure. The patient states he typically wears about 3 L of trach collar at home however sometimes it is variable and up to 5 to 6 L at times. Vital signs on presentation showed a temperature of 100.4 with a heart rate of 120 and a blood pressure of 123/95, his respiratory rate was 18-29 his oxygen saturation was initially 92% on 4 L trach collar. His CBC showed a normal white count but he did have a left shift with a 76.4% neutrophilia. His chemistry panel was over Santos unremarkable compared to previous with CKD noted and no other significant abnormalities. Lactic acid was 0.9. He was admitted to the medical floor and placed on broad-spectrum antibiotics with vancomycin and Zosyn and he was maintained on his home midodrine as he does have chronic orthostatic hypotension. Clinically, the patient states he is feeling somewhat better today. He is on 3 L trach mask and denies significant amount of coughing. He has had no further fevers and his heart rate is improved and no longer tachycardic. His blood pressures are back to his baseline requiring midodrine. Objective Data Objective Data Vital Signs: Vital Signs Temp Pulse Resp BP Pulse Ox O2 Del Method O2 Flow Rate 98.4 F 83 16 111/59 L 100 Trach Collar 3 07/05/23 11:30 07/05/23 11:30 07/05/23 11:30 07/05/23 11:30 07/05/23 11:30 07/05/23 13:59 07/05/23 13:59 Oxygen Flow Rate (L/min) 3 Oxygen Delivery Method Trach Collar Weight: 58.4 kg Body Mass Index (BMI) 18.4 Intake & Output: Intake and Output for Last 24 Hours 07/03/23 07/04/23 07/05/23 23:59 23:59 23:59 Intake Total 1000 / 1000 3282 / 3282 Output Total 750 / 750 Balance 1000 / 1000 2532 / 2532 Medical Nutrition Assessment Dietitian: Malnutrition Criteria Met Start: 07/05/23 12:34 Freq: Status: Active Protocol: Document 07/05/23 12:37 AG (Rec: 07/05/23 12:37 [id number]) Nutrition Malnutrition Evidence of Malnutrition Exists Yes Malnutrition (severe): Chronic Evidenced By Suboptimal Energy Intake ( Severe),Weight Loss (Severe), Physical Changes (Severe) Clinical Problem Chronic Disease or Condition Related Malnutrition Etiology severe, acute malnutrition related to inadequate enteral nutrition Signs/Symptoms as evidenced by Severe muscle wasting/fat loss evident per physical exam in orbital, clavicle, acromion, and temporal areas, unintentional wt loss of 8% x 3 months, estimated EN meeting ~65% of daily calorie and protein needs, BMI 18.5 Status Active Problem Recommendation Dietitian Recommendations/Changes NPO; Pivot 1.5 via PEG- 240mL bolus 5x/day w/ 40mL H2O flush before and after each bolus to provide 1800 calories, 112 g protein, and 1300mL total fluid/day. Will start w/ 120mL for first bolus, increase to 180mL for second bolus as tolerated w/ goal bolus volume of 240mL. Preferred timing 0800, 1200, 1500, 1800, and 2200 Lab / Micro Data 07/05/23 05:30 07/05/23 05:30 Labs: Laboratory Results - last 24 hr 07/04/23 22:05: WBC 5.2, RBC 3.31 L, Hgb 9.9 L, Hct 32.5 L, MCV 98.2 H, MCH 29.9, MCHC 30.5 L, RDW Std Deviation 60.3 H, RDW Coeff of Oz 16.7 H, Plt Count 100 L, MPV 12.7 H, Immature Gran % (Auto) 0.200, Neut % (Auto) 76.4 H, Lymph % (Auto) 12.4 L, [place] % (Auto) 10.4 H, Eos % (Auto) 0.4, Baso % (Auto) 0.2, Absolute Neuts (auto) 4.0, Absolute Lymphs (auto) 0.64 L, Nucleated RBC % 0, Sodium 141, Potassium 4.0, Chloride 103, Carbon Dioxide 33.0 H, Anion Gap 5, BUN 40 H, Creatinine 1.60 H, Estim Creat Clear Calc 33.22, Est GFR (MDRD) Af Amer 54 L, Est GFR (MDRD) Non-Af 45 L, BUN/Creatinine Ratio 25.0 H, Glucose 129 H, Lactic Acid 0.9, Calcium 9.8, Total Bilirubin 0.40, AST 34, ALT 39, Alkaline Phosphatase 73, Total Protein 7.8, Albumin 3.1 L, Globulin 4.7 H, Albumin/Globu savana Ratio 0.7 L 07/05/23 05:30: WBC 4.8, RBC 2.55 L, Hgb 7.6 L, Hct 25.2 L, MCV 98.8 H, MCH 29.8, MCHC 30.2 L, RDW Std Deviation 60.9 H, RDW Coeff of Oz 17.0 H, Plt Count 79 L, MPV 12.9 H, Immature Gran % (Auto) 0.200, Neut % (Auto) 59.6, Lymph % (Auto) 27.4, [place] % (Auto) 11.8 H, Eos % (Auto) 0.4, Baso % (Auto) 0.6, Absolute Neuts (auto) 2.9, Absolute Lymphs (auto) 1.32, Nucleated RBC % 0, Sodium 143, Potassium 3.9, Chloride 112 H, Carbon Dioxide 28.0, Anion Gap 3 L, BUN 33 H, Creatinine 1.41 H, Estim Creat Clear Calc 36.82, Est GFR (MDRD) Af Amer 63, Est GFR (MDRD) Non-Af 52 L, BUN/Creatinine Ratio 23.4 H, Glucose 101, Calcium 8.6, Total Bilirubin 0.50, AST 24, ALT 26, Alkaline Phosphatase 45, Total Protein 6.1 L, Albumin 2.6 L, Globulin 3.5, Albumin/Globulin Ratio 0.7 L, Prealbumin 14.5 L, TSH 1.85 Micro: Microbiology 07/05/23 12:45 Urine, Random Legionella Antigen - Final 07/05/23 12:45 Urine, Random Streptococcus pneumoniae Antigen (M - Final 07/04/23 22:35 Mucosa - Nose SARS-CoV-2, Influenza & RSV (PCR) - Final Radiography Diagnostic Testing: Radiology Impression Chest X-Ray 07/04/23 22:07 IMPRESSION: Bilateral lower lobe aspiration/pneumonia suspected in the appropriate clinical setting. Electronically Signed: Brad Lambert MD at 23:14 EDT , Chest X-Ray 07/05/23 05:55 IMPRESSION: Increased bibasilar consolidation/pneumonia. Electronically Signed: Claudia Gordon MD at 6:52 EDT , Physical Exam Const alert, oriented x3 and no apparent distress; Negative for average body habitus, healthy appearing or well nourished Constitutional Narrative: Cachectic, older, white male, sitting up in bed watching television, appears older than the stated age, interacts appropriately however nonverbal due to his tracheostomy placement. Able to interact by answering questions by shaking his head and speaking around his trach just a bit, patient is currently playing a game on his smart phone. HEENT head/scalp atraumatic HEENT Narrative: Mallampati is 1, no thrush, obvious oropharyngeal abnormalities related to previous surgery Head and Scalp: normocephalic Resp normal respiratory effort, no retractions, no use of accessory muscles and No clear to auscultation bilaterally Resp Narrative: Diminished with few scattered rhonchi noted in the right base but otherwise clear Auscultation: rhonchi; Negative for rales or wheezes Cardio regular rate, regular rhythm, S1 normal heart sound, S2 normal heart sound, no murmurs, no rub, no gallops and no clicks GI normal to inspection, nondistended, normoactive bowel sounds, soft to palpation and non-tender GI Narrative: Abdomen is somewhat scaphoid, Freedom button noticed in left upper quadrant and is clean and dry without any drainage or signs of infection Extremity no clubbing, cyanosis or edema Extremity Narrative: Decreased lean muscle mass, pedal pulses are 2+, radial pulses are 2+ Neuro oriented x3, moves all extremities and no focal motor deficits Neuro Narrative: Chronically debilitated with significant generalized weakness noted proximally greater than distally Speech: Negative for speech normal Psych affect normal Psych Narrative: Eye contact is good and patient interacts appropriately Assessment & Plan Assessment/Plan (1) Respiratory insufficiency: (2) Sepsis: QUALIFIERS: Sepsis type: sepsis due to unspecified organism S epsis acute organ dysfunction status: without acute organ dysfunction Qualified Code(s): A41.9 - Sepsis, unspecified organism (3) Aspiration pneumonia of both lower lobes: QUALIFIERS: Aspiration pneumonia type: unspecified Qualified Code(s): J69.0 - Pneumonitis due to inhalation of food and vomit (4) Severe malnutrition: (5) Anemia: (6) Thrombocytopenia: PLAN: Plan Sepsis secondary to aspiration pneumonia -Patient meets sepsis criteria with tachycardia, tachypnea, and confirmed source or suspected source of infection -Chest x-ray shows infiltrates -Fevers improving -Left shift is improving -COVID/flu/RSV are negative -Aggressive pulmonary toilet with DuoNebs and as needed albuterol -Continue vancomycin and Zosyn -Strep pneumo and Legionella antigens are negative -Await culture results -Will narrow antibiotics once cultures obtained Acute on chronic hypoxic respiratory failure -Acute component of his respiratory failure was very brief and he is currently back down to his baseline oxygen status -Patient reports his baseline is 3 to 6 L Acute on chronic anemia -Baseline hemoglobin appears to run between 8.0 and 10.0 -Hemoglobin 7.6 today -Will check iron studies -Check guaiac stool -Platelet count is down to -Unclear if these drops are related to acute infection or blood loss -Will consult GI if drop is related to apparent blood loss or if there is any further decrease in his hemoglobin -Patient did receive fluid bolus so this drop may reflect this as well -Will continue apixaban for now but monitor closely Thrombocytopenia -This is new when compared to previous data -At baseline seems to run between 150,002 150,000 -100,000 on admission and now 79,000 -Continue Eliquis for now but if drops further may need to hold for time. History of orthostatic hypotension -Continue home midodrine PAF -Continue amiodarone -Continue home Eliquis for now but may need to hold depending on hemoglobin and platelet counts Hypothyroidism -Continue home Synthroid -TSH is within normal limits History of cardiomyopathy -Previous echo showed an EF of 35% -No signs of acute decompensation GERD -Continue home PPI via PEG BPH status post TURP with obstruction -Continue chronic indwelling Maxwell Neuropathy -Continue home gabapentin CKD stage IIIb -Serum creatinine is stable -Continue to monitor Severe malnutrition -Continue home tube feed regimen -Supplements per dietitian -Dietitian is following-appreciate input COPD -Trach in place -Continue home budesonide continue home guaifenesin for congestion as needed 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
[2023-07-05 16:50] LABS: Ferritin 56 ng/mL (26-388); Iron 11 ug/dL (65-175); Iron Binding Capacity,Total 238 ug/dL (250-450); PERCENT IRON SATURATION 4.6 % (15.0-55.0)
[2023-07-05] MEDS: Ascorbic Acid 500 MG Tablet 1000 MG GT (17:26)
--- NOTE | 2023-07-05 17:43 | NURSING ---
Pt having thick creamy secretions from trach. Pt is able to cough and clear them. Offered to suction trach, pt refused. Education provided on suctioning, pt waved nurse away.
[2023-07-05] MEDS: Sodium Ferric Gluconat 250 MG in 0.9% Normal Saline 250 ML 135 MG IV (20:14)
--- NOTE | 2023-07-05 22:25 | CPS ---
Deep suctioned trach to obtain sputum specemin.
[2023-07-05] MEDS: Lactobacillis Acidophilus 2 CAP GT (23:03)
[2023-07-06] MEDS: Vancomycin HCl 750 MG in 0.9% Normal Saline (250mL Bag) 250 ML 250 MG IV (02:36)
[2023-07-06 04:35] VITALS: BP 114/61; PULSE 80; RESP 18; TEMP 36.8; O2SAT 96
[2023-07-06] MEDS: Piperacil/Tazobactam 3.375 GM in 0.9% Normal Saline (50mL MB+) 50 ML IV ×3 (05:18→21:03)
[2023-07-06] MEDS: Levothyroxine 50 MCG Tablet GT (05:19)
[2023-07-06 06:04] VITALS: BMI 18.8
[2023-07-06] MEDS: Pivot 1.5 Cal 1,000 ML BOTTLE 240 ML GT (06:48)
[2023-07-06 07:09] LABS: Absolute Lymphocyte Count 1.28 X10^3/uL (0.83-4.51); Basophil# 0.03 X10^3/uL; Basophil% 0.5 % (0-1); Eosinophil# 0.07 X10^3/uL; Eosinophils% 1.2 % (0-5); Hematocrit 27.8 % (40-54); Hemoglobin 8.4 g/dL (13.0-16.5); Lymphocyte # 1.28 X10^3/ul (0.83-4.51); Lymphocyte % 21.5 % (19-41); Mean Corp Hgb Conc 30.2 g/dL (32-36); Mean Corpuscular Hgb 29.4 pg (27.0-32.0); Mean Corpuscular Volume 97.2 fL (80-94); Mean Platelet Vol. 12.6 fl (6.2-12.0); Monocyte# 0.57 X10^3/uL; Monocyte% 9.6 % (0-10); NRBC Flagged by Analyzer 0 % (0-5); Neutrophil # 3.97 X10^3/uL (2.7-7.7); Neutrophil % 66.9 % (47-70); POSITIVE COUNT YES; POSITIVE MORPHOLOGY YES; Platelet Count 77 K/mm3 (150-450); RBC Distribution Width CV 17.2 % (11.6-14.6); RBC Distribution Width SD 61.4 fl (35.1-43.9); Red Blood Count 2.86 M/mm3 (4.6-6.2); White Blood Count 5.9 K/mm3 (4.4-11.0)
[2023-07-06 07:19] LABS: Differential Indicated SCAN CRITERIA MET
[2023-07-06 07:26] LABS: Anion Gap 4 (5-15); BUN 32 mg/dL (7-18); BUN/Creat Ratio 23.7 RATIO (10-20); Calcium,Total 9.1 mg/dL (8.5-10.1); Chloride 112 mmol/L (98-107); Creatinine, Serum 1.35 mg/dL (0.70-1.30); EST Glomerular Filtration Rate 55 mL/min (>60); Est Glom Filt Rate - Afr Amer 66 mL/min (>60); Estimated Creatinine Clearance 39.18 ml/min; Glucose 91 mg/dL (74-106); Potassium 3.7 mmol/L (3.5-5.1); Sodium Level 143 mmol/L (136-145)
[2023-07-06 07:58] LABS: Differential Comment SCANNED
[2023-07-06 08:04] VITALS: BP 116/61; PULSE 84; RESP 20; TEMP 37; O2SAT 96
[2023-07-06] MEDS: Midodrine HCl 5 MG Tablet 15 MG GT ×3 (08:07→17:49)
[2023-07-06] MEDS: Cholecalciferol (Vit D3) 125 MCG CAPSULE (5,000 UNITS) PO (08:07)
[2023-07-06] MEDS: Zinc Sulfate 50 mg zinc (220 mg) ORAL capsule PO (08:08)
[2023-07-06] MEDS: Amiodarone 200 MG Tablet GT (08:08)
[2023-07-06] MEDS: Ascorbic Acid 500 MG Tablet 1000 MG GT ×2 (08:08→17:49)
[2023-07-06] MEDS: Lactobacillis Acidophilus 2 CAP GT ×2 (08:09→21:04)
[2023-07-06] MEDS: Ipratropium Bromide 0.06% NASAL SPRAY 2 SPRAY NASAL ×2 (08:09→21:04)
[2023-07-06 08:29] VITALS: O2SAT 95
[2023-07-06] MEDS: Pantoprazole Sodium 40 MG in 0.9% Normal Saline (100mL MB+) 100 ML 330 MG IV (09:36)
--- NOTE | 2023-07-06 11:42 | PN.HOSP_ITS ---
Reason for Visit Reason for Visit: Fever/shortness of breath/cough Subjective Subjective No issues overnight. The dietitian changed his tube feed and he has been refusing them as they make him nauseated. They were changed due to him losing weight on his current tube feed however if he is not going to take them I feel like we should switch them back and increase the dose. He was getting 1-1/2 cans 4 times a day of his old tube feed I will increase that to 2 cans 4 times a day and revert back to Jevity from the Pivot. Otherwise he is feeling okay. Extensive conversation with the was at the bedside with regards to overall plan. We did discuss that his platelets were low and he has an anemia and since my discussion with them his guaiac stool came back positive so GI will be involved. Objective Data Objective Data Vital Signs: Vital Signs Temp Pulse Resp BP Pulse Ox O2 Del Method O2 Flow Rate 98.6 F 84 20 H 116/61 95 Trach Collar 3 07/06/23 08:04 07/06/23 08:04 07/06/23 08:04 07/06/23 08:04 07/06/23 08:29 07/06/23 09:15 07/06/23 08:29 Oxygen Flow Rate (L/min) 3 Oxygen Delivery Method Trach Collar Weight: 59.5 kg Body Mass Index (BMI) 18.8 Intake & Output: Intake and Output for Last 24 Hours 07/04/23 07/05/23 07/06/23 23:59 23:59 23:59 Intake Total 1000 / 1000 3682 / 3682 475 / 475 Output Total 950 / 1250 300 / 300 Balance 1000 / 1000 2732 / 2432 175 / 175 Medical Nutrition Assessment Dietitian: Malnutrition Criteria Met Start: 07/05/23 12:34 Freq: Status: Active Protocol: Document 07/05/23 12:37 AG (Rec: 07/05/23 12:37 [id number]) Nutrition Malnutrition Evidence of Malnutrition Exists Yes Malnutrition (severe): Chronic Evidenced By Suboptimal Energy Intake ( Severe),Weight Loss (Severe), Physical Changes (Severe) Clinical Problem Chronic Disease or Condition Related Malnutrition Etiology severe, acute malnutrition related to inadequate enteral nutrition Signs/Symptoms as evidenced by Severe muscle wasting/fat loss evident per physical exam in orbital, clavicle, acromion, and temporal areas, unintentional wt loss of 8% x 3 months, estimated EN meeting ~65% of daily calorie and protein needs, BMI 18.5 Status Active Problem Recommendation Dietitian Recommendations/Changes NPO; Pivot 1.5 via PEG- 240mL bolus 5x/day w/ 40mL H2O flush before and after each bolus to provide 1800 calories, 112 g protein, and 1300mL total fluid/day. Will start w/ 120mL for first bolus, increase to 180mL for second bolus as tolerated w/ goal bolus volume of 240mL. Preferred timing 0800, 1200, 1500, 1800, and 2200 Lab / Micro Data 07/06/23 06:59 07/06/23 06:59 Labs: Laboratory Results - last 24 hr 07/05/23 05:30: Iron 11 L, TIBC 238 L, Iron Saturation 4.6 L, Ferritin 56, Prealbumin 14.5 L, TSH 1.85 07/06/23 06:59: WBC 5.9, RBC 2.86 L, Hgb 8.4 L, Hct 27.8 L, MCV 97.2 H, MCH 29.4 , MCHC 30.2 L, RDW Std Deviation 61.4 H, RDW Coeff of Oz 17.2 H, Plt Count 77 L , MPV 12.6 H, Immature Gran % (Auto) 0.300, Neut % (Auto) 66.9, Lymph % (Auto) 21.5, [place] % (Auto) 9.6, Eos % (Auto) 1.2, Baso % (Auto) 0.5, Absolute Neuts (auto) 4.0, Absolute Lymphs (auto) 1.28, Nucleated RBC % 0, Differential Comment SCANNED, Sodium 143, Potassium 3.7, Chloride 112 H, Carbon Dioxide 27.0, Anion Gap 4 L, BUN 32 H, Creatinine 1.35 H, Estim Creat Clear Calc 39.18, Est GFR (MDRD) Af Amer 66, Est GFR (MDRD) Non-Af 55 L, BUN/Creatinine Ratio 23.7 H, Glucose 91, Calcium 9.1 Micro: Microbiology 07/05/23 22:25 Sputum, Induced/Lukens Gram Stain - Final 07/06/23 08:53 Stool Stool Occult Blood (DIEGO) - Final Occult Blood Positive 07/05/23 12:45 Urine, Random Legionella Antigen - Final 07/05/23 12:45 Urine, Random Streptococcus pneumoniae Antigen (M - Final 07/04/23 22:35 Mucosa - Nose SARS-CoV-2, Influenza & RSV (PCR) - Final Physical Exam Const alert, oriented x3 and no apparent distress; Negative for average body habitus, healthy appearing or well nourished Constitutional Narrative: Cachectic, older, white male, sitting up in bed watching television, appears older than the stated age, interacts appropriately however nonverbal due to his tracheostomy placement, is at the bedside General Appearance: cooperative HEENT normocephalic, head/scalp atraumatic and hearing grossly normal bilaterally HEENT Narrative: Mallampati 1, no thrush Eyes PERRL and EOMs intact bilaterally Eyes Narrative: Conjunctivae pale. Negative for scleral icterus. Neck no lymphadenopathy and supple Neck Narrative: Tracheostomy device in place. Resp normal respiratory effort, no retractions, no use of accessory muscles and No clear to auscultation bilaterally Resp Narrative: Diminished with few scattered rhonchi noted in the right base but otherwise clear Auscultation: rhonchi; Negative for rales or wheezes Cardio regular rate, regular rhythm, S1 normal heart sound, S2 normal heart sound, no murmurs, no rub, no gallops and no clicks GI normal to inspection, nondistended, normoactive bowel sounds, soft to palpation, non-tender and non-distended GI Narrative: Abdomen is somewhat scaphoid, Freedom button noticed in left upper quadrant and is clean and dry without any drainage or signs of infection Extremity normal to inspection, full ROM and no clubbing, cyanosis or edema Extremity Narrative: Decreased lean muscle mass, pedal pulses are 2+, radial pulses are 2+ Skin skin turgor normal, no jaundice, no petechiae and no mottling Neuro oriented x3, moves all extremities and no focal motor deficits Neuro Narrative: Chronically debilitated with significant generalized weakness noted proximally greater than distally Speech: Negative for speech normal Psych affect normal Psych Narrative: Eye contact is good and patient interacts appropriately Assessment & Plan Assessment/Plan (1) Respiratory insufficiency: (2) Sepsis: QUALIFIERS: Sepsis type: sepsis due to unspecified organism Sepsis acute organ dysfunction status: without acute organ dysfunction Qualified Code(s): A41.9 - Sepsis, unspecified organism (3) Aspiration pneumonia of both lower lobes: QUALIFIERS: Aspiration pneumonia type: unspecified Qualified Code(s): J69.0 - Pneumonitis due to inhalation of food and vomit (4) Severe malnutrition: (5) Anemia: (6) Thrombocytopenia: PLAN: Plan Sepsis secondary to aspiration pneumonia -Patient meets sepsis criteria with tachycardia, tachypnea, and confirmed source or suspected source of infection -Chest x-ray shows infiltrates -Afebrile now for 24 hours -Left shift has resolved -Aggressive pulmonary toilet with DuoNebs and as needed albuterol -Sputum culture done and Gram stain does show some gram-negative rods with culture pending identification and sensitivities -Continue vancomycin and Zosyn Acute on chronic hypoxic respiratory failure -Acute component of his respiratory failure was very brief and he is currently back down to his baseline oxygen status -Patient reports his baseline is 3 to 6 L Acute on chronic anemia -Baseline hemoglobin appears to run between 8.0 and 10.0 -Hemoglobin is currently stable -Iron studies consistent with iron deficiency -IV iron given 200 mg daily x 3 days -Guaiac stool was performed and positive for hidden blood -Hold apixaban -Start SCDs for DVT prophylaxis -Consult GI Thrombocytopenia -This is new when compared to previous data -At baseline seems to run between 150,002 150,000 -100,000 on admission and 77,000 today which is equitable to what it was yes terday -Eliquis is on hold -This may be related to consumption he appears to have an occult bleed in his GI tract History of orthostatic hypotension -Continue home midodrine PAF -Continue amiodarone -Eliquis on hold due to positive occult blood and anemia/number cytopenia Hypothyroidism -Continue home Synthroid -TSH is within normal limits History of cardiomyopathy -Previous echo showed an EF of 35% -No signs of acute decompensation GERD -Continue home PPI via PEG BPH status post TURP with obstruction -Continue chronic indwelling Maxwell Neuropathy -Continue home gabapentin CKD stage IIIb -Serum creatinine is stable -Continue to monitor Severe malnutrition -Had to transition his tube feed regimen as he was not tolerating the Pivot which was changed from Jevity. 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
[2023-07-06 14:44] VITALS: BP 148/84; PULSE 71; RESP 20; TEMP 36.9; O2SAT 97
[2023-07-06] MEDS: Jevity 1.5. 1,000 ML Bottle 240 ML GT ×2 (14:59→17:56)
[2023-07-06 17:04] VITALS: BP 116/67
[2023-07-06 21:00] VITALS: BP 140/85; PULSE 69; RESP 18; TEMP 36.8; O2SAT 98
[2023-07-06] MEDS: Gabapentin 300 MG Capsule GT (22:29)
[2023-07-07] MEDS: Vancomycin Trough/Random Due 1 LAB MC (02:14)
[2023-07-07 02:37] LABS: Vancomycin, Trough Level 12.9 ug/mL (5.0-15.0)
[2023-07-07] MEDS: Vancomycin IV 1,000 MG/200 ML BAG 200 MG IV (02:49)
[2023-07-07 03:00] VITALS: BP 132/66; PULSE 69; RESP 18; TEMP 36.8; O2SAT 100
--- NOTE | 2023-07-07 03:15 | PHA.PHARE_ITS ---
Consult Antibiotic Management Pharmacy has been consulted to manage selected antibiotic: Vancomycin Type of Intervention Type of Consult: Follow-up Suspected Infection Suspected Infection: Sepsis Labs Labs: Sodium 143 mmol/L (136-145) 07/06/23 06:59 Potassium 3.7 mmol/L (3.5-5.1) 07/06/23 06:59 Chloride 112 mmol/L (98-107) H 07/06/23 06:59 Carbon Dioxide 27.0 mmol/L (21.0-32.0) 07/06/23 06:59 Anion Gap 4 (5-15) L 07/06/23 06:59 BUN 32 mg/dL (7-18) H 07/06/23 06:59 Creatinine 1.35 mg/dL (0.70-1.30) H 07/06/23 06:59 Est GFR (MDRD) Af Amer 66 mL/min (>60) 07/06/23 06:59 Est GFR (MDRD) Non-Af 55 mL/min (>60) L 07/06/23 06:59 BUN/Creatinine Ratio 23.7 RATIO (10-20) H 07/06/23 06:59 Glucose 91 mg/dL (74-106) 07/06/23 06:59 Vancomycin Trough 12.9 ug/mL (5.0-15.0) 07/07/23 01:20 Microbiology Microbiology: Microbiology 07/05/23 22:25 Sputum, Induced/Lukens Gram Stain - Final 07/06/23 08:53 Stool Stool Occult Blood (DIEGO) - Final Occult Blood Positive 07/05/23 12:45 Urine, Random Legionella Antigen - Final 07/05/23 12:45 Urine, Random Streptococcus pneumoniae Antigen (M - Final 07/04/23 22:35 Mucosa - Nose SARS-CoV-2, Influenza & RSV (PCR) - Final Dosing Weight Weight used for dosin.5 kg Estimated Creatinine Clearance Estimated Creatinine Clearance: 39 Goal Trough Goal Trough: 15-20 mcg/mL Pharmacy Plan for Drug Dosing Pharmacy Plan for Drug Dosing: Vancomycin trough level of 12.9, drawn 23hrs post-dose, was below the target range of 15-20. Will increase dose to 1000mg q24h, and will re-draw a trough level in 3 doses. Pharmacy Service will continue to monitor and adjust dosing as required. Follow-Up Labs Follow-Up Labs: Trough: Vancomycin Date/Time Labs Ordered Labs to be done on [date and time ordered]: 07/09/23 @0239
[2023-07-07] MEDS: Piperacil/Tazobactam 3.375 GM in 0.9% Normal Saline (50mL MB+) 50 ML IV ×3 (05:04→21:31)
[2023-07-07] MEDS: Levothyroxine 50 MCG Tablet GT (05:08)
[2023-07-07 06:00] VITALS: BMI 18.7
[2023-07-07 06:29] LABS: Absolute Lymphocyte Count 1.42 X10^3/uL (0.83-4.51); Basophil# 0.03 X10^3/uL; Basophil% 0.5 % (0-1); Eosinophil# 0.17 X10^3/uL; Eosinophils% 2.8 % (0-5); Hematocrit 27.3 % (40-54); Hemoglobin 8.4 g/dL (13.0-16.5); Lymphocyte # 1.42 X10^3/ul (0.83-4.51); Lymphocyte % 23.5 % (19-41); Mean Corp Hgb Conc 30.8 g/dL (32-36); Mean Corpuscular Volume 97.5 fL (80-94); Mean Platelet Vol. 14.5 fl (6.2-12.0); Monocyte% 6.6 % (0-10); NRBC Flagged by Analyzer 0 % (0-5); Neutrophil # 4.01 X10^3/uL (2.7-7.7); Neutrophil % 66.3 % (47-70); POSITIVE COUNT YES; Platelet Count 85 K/mm3 (150-450); RBC Distribution Width CV 17.1 % (11.6-14.6); RBC Distribution Width SD 62.1 fl (35.1-43.9); White Blood Count 6.1 K/mm3 (4.4-11.0)
[2023-07-07 06:53] LABS: Anion Gap 5 (5-15); BUN 29 mg/dL (7-18); BUN/Creat Ratio 25.4 RATIO (10-20); Calcium,Total 9.2 mg/dL (8.5-10.1); Chloride 110 mmol/L (98-107); Creatinine, Serum 1.14 mg/dL (0.70-1.30); EST Glomerular Filtration Rate 66 mL/min (>60); Est Glom Filt Rate - Afr Amer 80 mL/min (>60); Estimated Creatinine Clearance 46.24 ml/min; Glucose 81 mg/dL (74-106); Magnesium 1.9 mg/dL (1.6-2.6); Phosphorus 2.1 mg/dL (2.5-4.9); Potassium 3.6 mmol/L (3.5-5.1); Sodium Level 143 mmol/L (136-145)
[2023-07-07 08:31] VITALS: O2SAT 96
[2023-07-07 09:57] VITALS: BP 114/66; PULSE 66; RESP 20; TEMP 36.6; O2SAT 96
[2023-07-07] MEDS: Midodrine HCl 5 MG Tablet 15 MG GT ×3 (10:03→17:49)
[2023-07-07] MEDS: Amiodarone 200 MG Tablet GT (10:04)
[2023-07-07] MEDS: Zinc Sulfate 50 mg zinc (220 mg) ORAL capsule GT (10:04)
[2023-07-07] MEDS: Ipratropium Bromide 0.06% NASAL SPRAY 2 SPRAY NASAL ×2 (10:04→20:35)
[2023-07-07] MEDS: Lactobacillis Acidophilus 2 CAP GT ×2 (10:04→20:36)
[2023-07-07] MEDS: Ascorbic Acid 500 MG Tablet 1000 MG GT ×2 (10:04→17:49)
[2023-07-07] MEDS: Cholecalciferol (VIT D3) 25 MCG TABLET (1,000 UNITS) 125 MCG GT (10:12)
[2023-07-07] MEDS: Gabapentin 300 MG Capsule GT ×2 (10:12→20:36)
[2023-07-07] MEDS: Pantoprazole Sodium 40 MG in 0.9% Normal Saline (100mL MB+) 100 ML 330 MG IV ×2 (10:21→20:50)
[2023-07-07] MEDS: Jevity 1.5. 1,000 ML Bottle 240 ML GT ×3 (10:33→17:55)
[2023-07-07] MEDS: 0.9% Normal Saline (250mL Bag) 250 ML 15 ML IV (10:42)
--- NOTE | 2023-07-07 11:46 | PCM.PN.HOSP ---
Reason for Visit Reason for Visit: Fever/shortness of breath/cough Subjective Subjective Patient states she is feeling okay overall. We discussed the fact that his stool was positive for hidden blood and we need to do further workup with an EGD tomorrow to see if he has bleeding in his stomach. I did tell him that if the EGD is unremarkable he may need a colonoscopy. He was last thrilled with the colonoscopy than he was with the EGD, but was agreeable if it needed to be done. I did explain why he needs to be on anticoagulation with the A-fib and he understood that we need to stop bleeding. He was also pleased that we changed his tube feed back from the pivot to the Jevity. He states he is tolerating that much better. Objective Data Objective Data Vital Signs: Vital Signs Temp Pulse Resp BP Pulse Ox O2 Del Method O2 Flow Rate 97.9 F 66 20 H 114/66 96 Trach Collar 2.5 07/07/23 09:57 07/07/23 09:57 07/07/23 09:57 07/07/23 09:57 07/07/23 09:57 07/07/23 09:57 07/07/23 09:57 Oxygen Flow Rate (L/min) 2.5 Oxygen Delivery Method Trach Collar Weight: 59.3 kg Body Mass Index (BMI) 18.7 Intake & Output: Intake and Output for Last 24 Hours 07/05/23 07/06/23 07/07/23 23:59 23:59 23:59 Intake Total 3682 / 3682 1040 / 1040 460 / 460 Output Total 950 / 1250 1250 / 1250 400 / 400 Balance 2732 / 2432 -210 / -210 60 / 60 Medical Nutrition Assessment Dietitian: Malnutrition Criteria Met Start: 07/05/23 12:34 Freq: Status: Active Protocol: Document 07/06/23 14:25 LO (Rec: 07/06/23 14:25 LO [id number]) Nutrition Malnutrition Evidence of Malnutrition Exists Yes Malnutrition (severe): Chronic Evidenced By Suboptimal Energy Intake ( Severe),Weight Loss (Severe), Physical Changes (Severe) Clinical Problem Chronic Disease or Condition Related Malnutrition Etiology severe, acute malnutrition related to inadequate enteral nutrition Signs/Symptoms as evidenced by Severe muscle wasting/fat loss evident per physical exam in orbital, clavicle, acromion, and temporal areas, unintentional wt loss of 8% x 3 months, estimated EN meeting ~65% of daily calorie and protein needs, BMI 18.5 Status Active Problem Recommendation Dietitian Recommendations/Changes NPO; Will continue Jevity 1.5 via PEG- 240mL bolus 4x/day w/ 40mL H2O flush before and after each bolus to provide 1440 calories, 61 g protein, and 1049mL total fluid/day per request of pt and spouse. Goal would be for 240mL bolus 5-6x daily to better meet pt's estimated nutrition needs. Lab / Micro Data 07/07/23 05:42 07/07/23 05:42 Labs: Laboratory Results - last 24 hr 07/07/23 01:20: Vancomycin Trough 12.9 07/07/23 05:42: WBC 6.1, RBC 2.80 L, Hgb 8.4 L, Hct 27.3 L, MCV 97.5 H, MCH 30.0, MCHC 30.8 L, RDW Std Deviation 62.1 H, RDW Coeff of Oz 17.1 H, Plt Count 85 L, MPV 14.5 H, Immature Gran % (Auto) 0.300, Neut % (Auto) 66.3, Lymph % (Auto) 23.5, [place] % (Auto) 6.6, Eos % (Auto) 2.8, Baso % (Auto) 0.5, Absolute Neuts (auto) 4.0, Absolute Lymphs (auto) 1.42, Nucleated RBC % 0, Sodium 143, Potassium 3.6, Chloride 110 H, Carbon Dioxide 28.0, Anion Gap 5, BUN 29 H, Creatinine 1.14, Estim Creat Clear Calc 46.24, Est GFR (MDRD) Af Amer 80, Est GFR (MDRD) Non-Af 66, BUN/Creatinine Ratio 25.4 H, Glucose 81, Calcium 9.2, Phosphorus 2.1 L, Magnesium 1.9 Micro: Microbiology 07/05/23 22:25 Sputum, Induced/Lukens Gram Stain - Final 07/05/23 22:25 Sputum, Induced/Lukens Respiratory Culture - Preliminary Gram negative jamie 07/05/23 00:32 Blood Culture (Wb) - Port Blood Culture - Preliminary No growth in 48 hours. 07/05/23 00:58 Blood Culture (Wb) - Port Blood Culture - Preliminary No growth in 48 hours. 07/06/23 08:53 Stool Stool Occult Blood (DIEGO) - Final Occult Blood Positive 07/05/23 12:45 Urine, Random Legionella Antigen - Final 07/05/23 12:45 Urine, Random Streptococcus pneumoniae Antigen (M - Final 07/04/23 22:35 Mucosa - Nose SARS-CoV-2, Influenza & RSV (PCR) - Final Physical Exam Const alert, oriented x3 and no apparent distress; Negative for average body habitus, healthy appearing or well nourished Constitutional Narrative: Cachectic, older, white male, sitting up in bed watching television, appears older than the stated age, interacts appropriately, places [place] valve wants to communicate General Appearance: cooperative HEENT normocephalic, head/scalp atraumatic and hearing grossly normal bilaterally HEENT Narrative: Mallampati 1, no thrush Resp normal respiratory effort, no retractions, no use of accessory muscles and No clear to auscultation bilaterally Resp Narrative: Diminished but clear Auscultation: Negative for rales, rhonchi or wheezes Cardio regular rate, regular rhythm, S1 normal heart sound, S2 normal heart sound, no murmurs, no rub, no gallops and no clicks GI normal to inspection, nondistended, normoactive bowel sounds, soft to palpation and non-tender GI Narrative: Abdomen is somewhat scaphoid, Freedom button noticed in left upper quadrant and is clean and dry without any drainage or signs of infection Extremity no clubbing, cyanosis or edema Extremity Narrative: Decreased lean muscle mass, pedal pulses are 2+ Neuro oriented x3, moves all extremities and no focal motor deficits Neuro Narrative: Chronically debilitated with significant generalized weakness noted proximally greater than distally Speech: Negative for speech normal Psych affect normal Psych Narrative: Eye contact is good and patient interacts appropriately Assessment & Plan Assessment/Plan (1) Respiratory insufficiency: (2) Sepsis: QUALIFIERS: Sepsis type: sepsis due to unspecified organism Sepsis acute organ dysfunction status: without acute organ dysfunction Qualified Code(s): A41.9 - Sepsis, unspecified organism (3) Aspiration pneumonia of both lower lobes: QUALIFIERS: Aspiration pneumonia type: unspecified Qualified Code(s): J69.0 - Pneumonitis due to inhalation of food and vomit (4) Severe malnutrition: (5) Anemia: (6) Thrombocytopenia: (7) Hypophosphatemia: PLAN: Plan Sepsis secondary to aspiration pneumonia -Patient meets sepsis criteria with tachycardia, tachypnea, and confirmed source or suspected source of infection -Chest x-ray shows infiltrates -Afebrile now for 48 hours -Left shift has resolved -Aggressive pulmonary toilet with DuoNebs and as needed albuterol -Gram-negative jamie identified in his sputum so we will discontinue vancomycin and continue Zosyn for now Acute on chronic hypoxic respiratory failure -Acute component of his respiratory failure was very brief and he is currently back down to his baseline oxygen status -Patient reports his baseline is 3 to 6 L -Currently on 2.5 L Acute on chronic anemia -Baseline hemoglobin appears to run between 8.0 and 10.0 -Hemoglobin is currently stable -Iron studies consistent with iron deficiency -IV iron given 200 mg daily x 3 days completed -Guaiac stool was positive -Hold apixaban -Continue Protonix 40 mg IV push but increase to twice daily dosing -Consult GI-->discussed with GI plan is for EGD tomorrow will make patient n.p.o. at midnight Thrombocytopenia -This is new when compared to previous data -At baseline seems to run between 150,002 150,000 -100,000 on admission -Trending up as it was 79,000 on admission and now up to 85,000 -Eliquis is on hold -This may be related to consumption he appears to have an occult bleed in his GI tract Hypophosphatemia -Mild at 2.1 -Will give potassium Phos bolus -Recheck in a.m. History of orthostatic hypotension -Continue home midodrine PAF -Continue amiodarone -Eliquis on hold due to positive occult blood and anemia/thrombocytopenia Hypothyroidism -Continue home Synthroid -TSH is within normal limits History of cardiomyopathy -Previous echo showed an EF of 35% -No signs of acute decompensation GERD -Continue home PPI via PEG BPH status post TURP with obstruction -Continue chronic indwelling Maxwell Neuropathy -Continue home gabapentin CKD stage IIIb -Serum creatinine is stable -Continue to monitor Severe malnutrition -Had to transition his tube feed regimen as he was not tolerating the Pivot which was changed from Jevity. -Discussed with dietitian and they have made adjustments back to his original tube feed with increased feeds -Will be n.p.o. 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
[2023-07-07] MEDS: Potassium Phosphate 30 MM in 0.9% Normal Saline (250mL Bag) 250 ML 42 MM IV (12:46)
[2023-07-07 13:49] VITALS: BP 127/66; PULSE 74; RESP 18; TEMP 36.9; O2SAT 94
[2023-07-07 17:47] VITALS: BP 124/65; PULSE 68; RESP 16; TEMP 36.8; O2SAT 100
[2023-07-07 20:56] VITALS: BP 127/88; PULSE 66; RESP 16; TEMP 36.6; O2SAT 95
[2023-07-08] VITALS (7 sets, daily range): BP systolic 125–146; BP diastolic 62–74; PULSE 67–78; RESP 14–18; TEMP 36.7–37.1; O2SAT 94–100; BMI 19.0; BMI 19.9
[2023-07-08 03:40] LABS: Absolute Lymphocyte Count 1.42 X10^3/uL (0.83-4.51); Absolute Neutrophil Count 3.6 X10^3/uL (2.0-7.7); Basophil# 0.03 X10^3/uL; Basophil% 0.5 % (0-1); Eosinophil# 0.22 X10^3/uL; Eosinophils% 3.8 % (0-5); Hematocrit 27.1 % (40-54); Hemoglobin 8.1 g/dL (13.0-16.5); Lymphocyte # 1.42 X10^3/ul (0.83-4.51); Lymphocyte % 24.7 % (19-41); Mean Corp Hgb Conc 29.9 g/dL (32-36); Mean Corpuscular Hgb 28.9 pg (27.0-32.0); Mean Corpuscular Volume 96.8 fL (80-94); Mean Platelet Vol. 12.6 fl (6.2-12.0); Monocyte% 8.7 % (0-10); NRBC Flagged by Analyzer 0 % (0-5); Neutrophil # 3.55 X10^3/uL (2.7-7.7); Neutrophil % 61.8 % (47-70); Platelet Count 100 K/mm3 (150-450); RBC Distribution Width CV 16.8 % (11.6-14.6); RBC Distribution Width SD 60.5 fl (35.1-43.9); White Blood Count 5.8 K/mm3 (4.4-11.0)
[2023-07-08 04:01] LABS: International Normalized Ratio 1.3; Prothrombin Time (Protime)PT. 15.7 SECONDS (11.7-14.9)
[2023-07-08 04:07] LABS: Anion Gap 4 (5-15); BUN 28 mg/dL (7-18); BUN/Creat Ratio 23.1 RATIO (10-20); Calcium,Total 9.2 mg/dL (8.5-10.1); Chloride 110 mmol/L (98-107); Creatinine, Serum 1.21 mg/dL (0.70-1.30); EST Glomerular Filtration Rate 62 mL/min (>60); Est Glom Filt Rate - Afr Amer 75 mL/min (>60); Estimated Creatinine Clearance 43.56 ml/min; Glucose 86 mg/dL (74-106); Phosphorus 3.4 mg/dL (2.5-4.9); Sodium Level 143 mmol/L (136-145)
[2023-07-08] MEDS: Levothyroxine 50 MCG Tablet GT (05:41)
[2023-07-08] MEDS: Piperacil/Tazobactam 3.375 GM in 0.9% Normal Saline (50mL MB+) 50 ML IV ×3 (05:45→22:50)
--- NOTE | 2023-07-08 05:55 | EKG12_ITS ---
Test Reason : AM EKG Blood Pressure : / mmHG Vent. Rate : 080 BPM Atrial Rate : 080 BPM P-R Int : 178 ms QRS Dur : 082 ms QT Int : 412 ms P-R-T Axes : 029 -12 015 degrees QTc Int : 475 ms Normal sinus rhythm Normal ECG When compared with ECG of 05-APR-2023 00:04, No significant change was found Confirmed by Brice Fajardo ([id number]), online content editor FREDY GOMEZ ([id number]) on 07/08/2023 12:59:22 PM Referred By: Confirmed By:Brice Fajardo
[2023-07-08] MEDS: Ipratropium Bromide 0.06% NASAL SPRAY 2 SPRAY NASAL ×2 (09:13→22:50)
[2023-07-08] MEDS: Ascorbic Acid 500 MG Tablet 1000 MG GT ×2 (09:16→18:17)
[2023-07-08] MEDS: Zinc Sulfate 50 mg zinc (220 mg) ORAL capsule GT (09:17)
[2023-07-08] MEDS: Midodrine HCl 5 MG Tablet 15 MG GT ×2 (09:17→18:17)
[2023-07-08] MEDS: Cholecalciferol (VIT D3) 25 MCG TABLET (1,000 UNITS) 125 MCG GT (09:17)
[2023-07-08] MEDS: Amiodarone 200 MG Tablet GT (09:17)
[2023-07-08] MEDS: Lactobacillis Acidophilus 2 CAP GT ×2 (09:18→22:49)
[2023-07-08] MEDS: Gabapentin 300 MG Capsule GT ×2 (09:22→22:49)
[2023-07-08] MEDS: Pantoprazole Sodium 40 MG in 0.9% Normal Saline (100mL MB+) 100 ML 330 MG IV ×2 (09:48→22:49)
--- NOTE | 2023-07-08 11:41 | PCM.PN.HOSP ---
Reason for Visit Reason for Visit: Diagnoses Sepsis, unspecified organism (07/05/23) Anemia, unspecified (07/05/23) Thrombocytopenia, unspecified (07/05/23) Unspecified severe protein-calorie malnutrition (07/05/23) Other disorders of phosphorus metabolism (07/05/23) Paroxysmal atrial fibrillation (07/05/23) Pneumonitis due to inhalation of food and vomit (07/05/23) Other abnormalities of breathing (07/05/23) Subjective Subjective Patient is a 78-year-old gentleman with multiple comorbidities who was admitted with shortness of breath. Diagnosed with aspiration pneumonia. Patient hospital stay complicated by worsening anemia thrombocytopenia on Eliquis held consult placed to GI with plan for patient to undergo endoscopic evaluation Objective Data Objective Data Vital Signs: Vital Signs Temp Pulse Resp BP Pulse Ox O2 Del Method O2 Flow Rate 98.5 F 70 16 132/62 H 100 Trach Collar 3 07/08/23 09:11 07/08/23 09:11 07/08/23 09:11 07/08/23 09:11 07/08/23 09:11 07/08/23 09:11 07/08/23 10:02 Oxygen Flow Rate (L/min) 3 Oxygen Delivery Method Trach Collar Weight: 63 kg Body Mass Index (BMI) 19.9 Intake & Output: Intake and Output for Last 24 Hours 07/06/23 07/07/23 07/08/23 23:59 23:59 23:59 Intake Total 1040 / 1040 1141.25 / 1141.25 250 / 250 Output Total 1250 / 1250 1700 / 1700 250 / 250 Balance -210 / -210 -558.75 / -558.75 0 / 0 Medical Nutrition Assessment Dietitian: Malnutrition Criteria Met Start: 07/05/23 12:34 Freq: Status: Active Protocol: Document 07/06/23 14:25 LO (Rec: 07/06/23 14:25 LO [id number]) Nutrition Malnutrition Evidence of Malnutrition Exists Yes Malnutrition (severe): Chronic Evidenced By Suboptimal Energy Intake ( Severe),Weight Loss (Severe), Physical Changes (Severe) Clinical Problem Chronic Disease or Condition Related Malnutrition Etiology severe, acute malnutrition related to inadequate enteral nutrition Signs/Symptoms as evidenced by Severe muscle wasting/fat loss evident per physical exam in orbital, clavicle, acromion, and temporal areas, unintentional wt loss of 8% x 3 months, estimated EN meeting ~65% of daily calorie and protein needs, BMI 18.5 Status Active Problem Recommendation Dietitian Recommendations/Changes NPO; Will continue Jevity 1.5 via PEG- 240mL bolus 4x/day w/ 40mL H2O flush before and after each bolus to provide 1440 calories, 61 g protein, and 1049mL total fluid/day per request of pt and spouse. Goal would be for 240mL bolus 5-6x daily to better meet pt's estimated nutrition needs. Lab / Micro Data 07/08/23 03:25 07/08/23 03:25 Labs: Laboratory Results - last 24 hr 07/08/23 03:25: WBC 5.8, RBC 2.80 L, Hgb 8.1 L, Hct 27.1 L, MCV 96.8 H, MCH 28.9, MCHC 29.9 L, RDW Std Deviation 60.5 H, RDW Coeff of Oz 16.8 H, Plt Count 100 L, MPV 12.6 H, Immature Gran % (Auto) 0.500, Neut % (Auto) 61.8, Lymph % (Auto) 24.7, [place] % (Auto) 8.7, Eos % (Auto) 3.8, Baso % (Auto) 0.5, Absolute Neuts (auto) 3.6, Absolute Lymphs (auto) 1.42, Nucleated RBC % 0, PT 15.7 H, INR 1.3, Sodium 143, Potassium 4.0, Chloride 110 H, Carbon Dioxide 29.0, Anion Gap 4 L, BUN 28 H, Creatinine 1.21, Estim Creat Clear Calc 43.56, Est GFR (MDRD) Af Amer 75, Est GFR (MDRD) Non-Af 62, BUN/Creatinine Ratio 23.1 H, Glucose 86, Calcium 9.2, Phosphorus 3.4 Micro: Microbiology 07/05/23 22:25 Sputum, Induced/Lukens Gram Stain - Final 07/05/23 22:25 Sputum, Induced/Lukens Respiratory Culture - Preliminary 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 07/05/23 00:58 Blood Culture (Wb) - Port Blood Culture - Preliminary No growth in 48 hours. 07/06/23 08:53 Stool Stool Occult Blood (DIEGO) - Final Occult Blood Positive 07/05/23 12:45 Urine, Random Legionella Antigen - Final 07/05/23 12:45 Urine, Random Streptococcus pneumoniae Antigen (M - Final 07/04/23 22:35 Mucosa - Nose SARS-CoV-2, Influenza & RSV (PCR) - Final Physical Exam Narrative GENERAL: Appears cachectic HEENT: Atraumatic; trach collar in place EYES; Anicteric, Normal Conjunctiva NECK; supple, normal thyroid, RESPIRATORY: Diminished to auscultation CARDIOVASCULAR:? Regular S1 S2, GI:? soft, normoactive bowel sounds, : No Renal angle tenderness; EXTREMITIES:? No edema, no clubbing, MUSCULOSKELETAL:? no muscle wasting NEURO:? Awake;? no lateralizing signs. SKIN:? No Rash PSYCH; Flat? affect Assessment & Plan Assessment/Plan (1) Aspiration pneumonia of both lower lobes: QUALIFIERS: Aspiration pneumonia type: unspecified Qualified Code(s): J69.0 - Pneumonitis due to inhalation of food and vomit PLAN: Plan Patient is a 78-year-old gentleman with multiple comorbidities who was admitted with shortness of breath. Diagnosed with aspiration pneumonia. Patient hospital stay complicated by worsening anemia thrombocytopenia on Eliquis held consult placed to GI with plan for patient to undergo endoscopic evaluation 1. Acute on chronic hypoxic respiratory failure ? Secondary to pneumonia with MDR's and mucous plugging. 2. Pneumonia with MDR's ? Cultures so far positive for gram-negative jamie possible Pseudomonas given his previous history. Patient remains on Zosyn in addition to supplemental oxygen 3. Anemia - Secondary to chronic disorder monitoring H&H and transfuse if patient becomes symptomatic or hemoglobin falls below 7. Patient is on Eliquis held consult placed to GI plan is for endoscopic evaluation 4. Chronic congestive heart failure with reduced ejection 2D echo on 12/13/2022 showed EF of 35-40%, with moderate LV dysfunction with gloval LV hypokinesis and no significant valvular abnormality. 5. Paroxysmal A-fib ? Rate controlled patient is on Eliquis held given his anemia 6. 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 Status post tracheostomy and PEG tube placement. Patient is followed by oncology as outpatient 7. 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 Status post PEG tube placement 8. Chronic hypoxic respiratory failure ? Secondary to laryngeal CA that is post tracheostomy 9. Chronic hypotension ? Patient is on midodrine 10. Severe protein calorie malnutrition ? As evidenced by inadequate oral intake secondary to patient multiple comorbidities. Patient is currently n.p.o. and receives nutrition via PEG tube 11. Chronic pain syndrome ? Patient is on gabapentin 12. Hypothyroidism - Patient is on levothyroxine home dose continued 13. GERD ? Patient is on PPI 14. Chronic urinary retention secondary to BPH, Status post TURP on 04/20/2022. 15. Thrombocytopenia ? Monitoring 16. COPD ? Bronchodilator treatment as needed 17 DVT prophylaxis ? On apixaban held given patient anemia Time spent in the patient's overall evaluation,decision-making process, review of diagnostic data, adjustment of management, discussion with other providers, nursing nursing and ancillary staff involved in patient's care documentation, 52 Minutes Charges/Coding Visit Charges Inpatient E&M: 21780 [facility] Hosp L3
[2023-07-08] MEDS: Jevity 1.5. 1,000 ML Bottle 240 ML GT (14:57)
[2023-07-09] VITALS (7 sets, daily range): BP systolic 109–145; BP diastolic 62–80; PULSE 67–89; RESP 16–18; TEMP 36.4–36.8; O2SAT 94–100
[2023-07-09] MEDS: Piperacil/Tazobactam 3.375 GM in 0.9% Normal Saline (50mL MB+) 50 ML IV ×3 (05:40→22:55)
[2023-07-09] MEDS: Levothyroxine 50 MCG Tablet GT (05:49)
[2023-07-09 06:22] LABS: Absolute Lymphocyte Count 1.18 X10^3/uL (0.83-4.51); Basophil# 0.02 X10^3/uL; Basophil% 0.5 % (0-1); Eosinophil# 0.16 X10^3/uL; Eosinophils% 4.3 % (0-5); Hematocrit 28.6 % (40-54); Hemoglobin 8.5 g/dL (13.0-16.5); Lymphocyte # 1.18 X10^3/ul (0.83-4.51); Lymphocyte % 31.9 % (19-41); Mean Corp Hgb Conc 29.7 g/dL (32-36); Mean Corpuscular Hgb 28.8 pg (27.0-32.0); Mean Corpuscular Volume 96.9 fL (80-94); Monocyte# 0.33 X10^3/uL; Monocyte% 8.9 % (0-10); NRBC Flagged by Analyzer 0 % (0-5); Neutrophil % 54.1 % (47-70); Platelet Count 103 K/mm3 (150-450); RBC Distribution Width CV 16.6 % (11.6-14.6); RBC Distribution Width SD 59.4 fl (35.1-43.9); Red Blood Count 2.95 M/mm3 (4.6-6.2); White Blood Count 3.7 K/mm3 (4.4-11.0)
[2023-07-09 06:39] LABS: International Normalized Ratio 1.1; Prothrombin Time (Protime)PT. 14.5 SECONDS (11.7-14.9)
[2023-07-09 06:40] LABS: Partial Thromboplast Time 38.8 Seconds (24.1-36.2)
[2023-07-09 06:58] LABS: Anion Gap 7 (5-15); BUN 23 mg/dL (7-18); BUN/Creat Ratio 19.7 RATIO (10-20); Calcium,Total 9.2 mg/dL (8.5-10.1); Chloride 109 mmol/L (98-107); Creatinine, Serum 1.17 mg/dL (0.70-1.30); EST Glomerular Filtration Rate 64 mL/min (>60); Est Glom Filt Rate - Afr Amer 78 mL/min (>60); Estimated Creatinine Clearance 47.86 ml/min; Glucose 73 mg/dL (74-106); Magnesium 2.1 mg/dL (1.6-2.6); Phosphorus 3.2 mg/dL (2.5-4.9); Potassium 3.9 mmol/L (3.5-5.1); Sodium Level 143 mmol/L (136-145)
[2023-07-09] MEDS: Ipratropium Bromide 0.06% NASAL SPRAY 2 SPRAY NASAL ×2 (08:32→23:00)
--- NOTE | 2023-07-09 09:51 | PCM.PN.HOSP ---
Reason for Visit Reason for Visit: Diagnoses Sepsis, unspecified organism (07/05/23) Anemia, unspecified (07/05/23) Thrombocytopenia, unspecified (07/05/23) Unspecified severe protein-calorie malnutrition (07/05/23) Other disorders of phosphorus metabolism (07/05/23) Paroxysmal atrial fibrillation (07/05/23) Pneumonitis due to inhalation of food and vomit (07/05/23) Other abnormalities of breathing (07/05/23) Subjective Subjective Patient seen had a relatively uneventful night. Hemoglobin down to 8.5. Patient is scheduled to undergo endoscopic evaluation this afternoon Objective Data Objective Data Vital Signs: Vital Signs Temp Pulse Resp BP Pulse Ox O2 Del Method O2 Flow Rate 97.6 F L 72 17 133/76 H 97 Trach Collar 3 07/09/23 08:23 07/09/23 08:23 07/09/23 08:23 07/09/23 08:23 07/09/23 08:23 07/09/23 08:23 07/09/23 08:23 Oxygen Flow Rate (L/min) 3 Oxygen Delivery Method Trach Collar Weight: 63 kg Body Mass Index (BMI) 19.9 Intake & Output: Intake and Output for Last 24 Hours 07/07/23 07/08/23 07/09/23 23:59 23:59 23:59 Intake Total 1141.25 / 1141.25 1431.75 / 1431.75 50 / 50 Output Total 1700 / 1700 1150 / 1500 700 / 700 Balance -558.75 / -558.75 281.75 / -68.25 -650 / -650 Medical Nutrition Assessment Dietitian: Malnutrition Criteria Met Start: 07/05/23 12:34 Freq: Status: Active Protocol: Document 07/06/23 14:25 LO (Rec: 07/06/23 14:25 [id number]) Nutrition Malnutrition Evidence of Malnutrition Exists Yes Malnutrition (severe): Chronic Evidenced By Suboptimal Energy Intake ( Severe),Weight Loss (Severe), Physical Changes (Severe) Clinical Problem Chronic Disease or Condition Related Malnutrition Etiology severe, acute malnutrition related to inadequate enteral nutrition Signs/Symptoms as evidenced by Severe muscle wasting/fat loss evident per physical exam in orbital, clavicle, acromion, and temporal areas, unintentional wt loss of 8% x 3 months, estimated EN meeting ~65% of daily calorie and protein needs, BMI 18.5 Status Active Problem Recommendation Dietitian Recommendations/Changes NPO; Will continue Jevity 1.5 via PEG- 240mL bolus 4x/day w/ 40mL H2O flush before and after each bolus to provide 1440 calories, 61 g protein, and 1049mL total fluid/day per request of pt and spouse. Goal would be for 240mL bolus 5-6x daily to better meet pt's estimated nutrition needs. Lab / Micro Data 07/09/23 05:50 07/09/23 05:50 Labs: Laboratory Results - last 24 hr 07/09/23 05:50: WBC 3.7 L, RBC 2.95 L, Hgb 8.5 L, Hct 28.6 L, MCV 96.9 H, MCH 28.8, MCHC 29.7 L, RDW Std Deviation 59.4 H, RDW Coeff of Oz 16.6 H, Plt Count 103 L, MPV 13.0 H, Immature Gran % (Auto) 0.300, Neut % (Auto) 54.1, Lymph % (Auto) 31.9, [place] % (Auto) 8.9, Eos % (Auto) 4.3, Baso % (Auto) 0.5, Absolute Neuts (auto) 2.0, Absolute Lymphs (auto) 1.18, Nucleated RBC % 0, PT 14.5, INR 1.1, APTT 38.8 H, Sodium 143, Potassium 3.9, Chloride 109 H, Carbon Dioxide 27.0, Anion Gap 7, BUN 23 H, Creatinine 1.17, Estim Creat Clear Calc 47.86, Est GFR (MDRD) Af Amer 78, Est GFR (MDRD) Non-Af 64, BUN/Creatinine Ratio 19.7, Glucose 73 L, Calcium 9.2, Phosphorus 3.2, Magnesium 2.1 Micro: Microbiology 07/05/23 22:25 Sputum, Induced/Lukens Gram Stain - Final 07/05/23 22:25 Sputum, Induced/Lukens Respiratory Culture - Preliminary 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 07/05/23 00:58 Blood Culture (Wb) - Port Blood Culture - Preliminary No growth in 48 hours. 07/06/23 08:53 Stool Stool Occult Blood (DIEGO) - Final Occult Blood Positive 07/05/23 12:45 Urine, Random Legionella Antigen - Final 07/05/23 12:45 Urine, Random Streptococcus pneumoniae Antigen (M - Final 07/04/23 22:35 Mucosa - Nose SARS-CoV-2, Influenza & RSV (PCR) - Final Physical Exam Narrative GENERAL: Appears cachectic HEENT: Atraumatic; trach collar in place EYES; Anicteric, Normal Conjunctiva NECK; supple, normal thyroid, RESPIRATORY: Diminished to auscultation CARDIOVASCULAR:? Regular S1 S2, GI:? soft, normoactive bowel sounds, : No Renal angle tenderness; EXTREMITIES:? No edema, no clubbing, MUSCULOSKELETAL:? no muscle wasting NEURO:? Awake;? no lateralizing signs. SKIN:? No Rash PSYCH; Flat? affect Assessment & Plan Assessment/Plan (1) Aspiration pneumonia of both lower lobes: QUALIFIERS: Aspiration pneumonia type: unspecified Qualified Code(s): J69.0 - Pneumonitis due to inhalation of food and vomit PLAN: Plan Patient is a 78-year-old gentleman with multiple comorbidities who was admitted with shortness of breath. Diagnosed with aspiration pneumonia. Patient hospital stay complicated by worsening anemia thrombocytopenia on Eliquis held consult placed to GI with plan for patient to undergo endoscopic evaluation 1. Acute on chronic hypoxic respiratory failure ? Secondary to pneumonia with MDR's and mucous plugging. ? 07/09/2023 patient back to his baseline with respect to his oxygen requirement 2. Pneumonia with MDR's ? Cultures so far positive for gram-negative jamie possible Pseudomonas given his previous history. Patient remains on Zosyn in addition to supplemental oxygen 3. Anemia - Secondary to chronic disorder monitoring H&H and transfuse if patient becomes symptomatic or hemoglobin falls below 7. Patient is on Eliquis held consult placed to GI plan is for endoscopic evaluation ? 07/10/2023 EGD scheduled to be performed today 4. Chronic congestive heart failure with reduced ejection 2D echo on 12/13/2022 showed EF of 35-40%, with moderate LV dysfunction with gloval LV hypokinesis and no significant valvular abnormality. 5. Paroxysmal A-fib ? Rate controlled patient is on Eliquis held given his anemia 6. 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 Status post tracheostomy and PEG tube placement. Patient is followed by oncology as outpatient 7. 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 Status post PEG tube placement 8. Chronic hypoxic respiratory failure ? Secondary to laryngeal CA that is post tracheostomy 9. Chronic hypotension ? Patient is on midodrine 10. Severe protein calorie malnutrition ? As evidenced by inadequate oral intake secondary to patient multiple comorbidities. Patient is currently n.p.o. and receives nutrition via PEG tube 11. Chronic pain syndrome ? Patient is on gabapentin 12. Hypothyroidism - Patient is on levothyroxine home dose continued 13. GERD ? Patient is on PPI 14. Chronic urinary retention secondary to BPH, Status post TURP on 04/20/2022. 15. Thrombocytopenia ? Monitoring 16. COPD ? Bronchodilator treatment as needed 17 DVT prophylaxis ? On apixaban held given patient anemia 18. Chronic hypotension -patient is on midodrine discontinued given his relatively stable blood pressure Time spent in the patient's overall evaluation,decision-making process, review of diagnostic data, adjustment of management, discussion with other providers, nursing nursing and ancillary staff involved in patient's care documentation, 36 Minutes Charges/Coding Visit Charges Inpatient E&M: 21214 Subs Hosp L2
[2023-07-09] MEDS: Pantoprazole Sodium 40 MG in 0.9% Normal Saline (100mL MB+) 100 ML 330 MG IV ×2 (11:01→21:30)
[2023-07-09] MEDS: Lactated Ringers 1,000 ML 15 ML IV (11:19)
--- NOTE | 2023-07-09 12:00 | EGD_PTH ---
PATIENT: SERENITY ESTRADA LOC: [facility] U#:[id number] AGE/SX: 78/M ROOM: [facility] RE07/05/[address]: Dr. Larry Hopper MD : 1945 BED: 1 DIS: 07/10/2023 SPEC #: [id number] RECD: 07/10/23 10:18 STATUS: CHRIS RENicolas #: [id number] GLYNN: 07/09/23 12:[address]: Cheikh Price DEPT: SURGICAL PATHOLOGY RECD BY: Zuleika Krueger ENTERED: 07/10/23 11:21 SP TYPE: EGD BIOPSY OTHR DR: DO Dr. Larry Olson MD Dr. Kathryn Lee, DO M Gregory Barton, PA Tissues: Gastric mucous membrane Procedures: Surgery Specimen Level IV Comments: @ Ordering doctor for SUIV edited from to @ willam XIE at 07/10/23 1419 @ Submitting doctor edited from to @ willam XIE at 07/10/23 1415 HEADER OPERATION: EGD with biopsy PRE-OP DIAGNOSIS: Anemia TISSUE SUBMITTED: Gastric ulcer biopsy MICROSCOPIC DIAGNOSIS Gastric ulcer, biopsy: Mild gastritis. See microscopic description and comment. SHERRY/ 07/11/2023 COMMENT The results of immunohistochemistry for Helicobacter pylori will be reported separately ([id number]). MICROSCOPIC DESCRIPTION Slides are reviewed. The specimen shows fragments of gastric mucosa with chronic inflammatory cell infiltrates in the lamina propria consisting of lymphocytes and plasma cells, consistent with mild chronic gastritis. GROSS DESCRIPTION Received in fixative is one container labeled with the patient's name and designated Gastric ulcer biopsy. The specimen consists of two irregular fragments of light jackson soft tissue that in aggregate measure 0.6 x 0.3 x 0.1 cm. The specimen is totally submitted in one cassette. SHERRY/ 07/10/23 TC:3 CPT: 48115
--- NOTE | 2023-07-09 12:00 | IMM_PTH ---
PATIENT: SERENITY ESTRADA LOC: [facility] U#:[id number] AGE/SX: 78/M ROOM: [facility] RE07/05/[address]: Dr. Larry Hopper MD : 1945 BED: 1 DIS: 07/10/2023 SPEC #: [id number] RECD: 07/10/23 13:48 STATUS: SOUT REQ #: [id number] GLYNN: 07/09/23 12:[address]: Cheikh Price DEPT: IMMUNOHISTOCHEMISTRY RECD BY: Reynaldo Mandujano ENTERED: 07/10/23 13:48 SP TYPE: IMMUNO OTHR DR: DO Dr. Larry Olson MD Dr. Kathryn Lee, DO M Gregory Barton, PA Tissues: Stomach, NOS Procedures: H Pylori (initial) Comments: @ Ordering doctor for H.PYLORI edited from to @ by ANNE-MARIE at 07/10/23 1414 @ Submitting doctor edited from to @ by ANNE-MARIE at 07/10/23 1415 PHYSICIAN & INSTITUTION [place] [address] SPECIMEN INFORMATION: Tissue Source: Gastric ulcer biopsy Clinical Info: Nelia Specimen Number: [id number] CPT code: 33968 METHODOLOGY: Deparaffinized sections of prefer/formalin-fixed tissue or PAP/DQ stained slides are incubated with monoclonal/polyclonal antibodies/oligonucleotide probes. Localization is made via biotin free immunoperoxidase method. Appropriate controls are performed and reacted as expected. Results on target cell population are indicated in the following table: RESULTS: ANTIBODY / CLONE RESULT H Pylori (polyclonal) negative These tests were developed and their performance characteristics determined by [facility]. They may not have been cleared or approved by the U.S. Food and Drug Administration. The FDA has determined that such clearance or approval is not necessary. The above immunohistochemical/dualISH markers are ordered and reviewed by the Pathologist. INTERPRETATION: Gastric ulcer, biopsy: Negative for Helicobacter pylori organisms. SHERRY/ 07/11/23
--- NOTE | 2023-07-09 14:00 | NURSING ---
Multidisciplinary rounds not completed at this time as patient is off the floor at a procedure and family is not present
--- NOTE | 2023-07-09 16:02 | OP.EGD_ITS ---
Patient Name: Semaj Dumont Procedure Date: 07/09/2023 3:30 PM Date of : 1945 Age: 78 Procedure: Upper GI endoscopy Indications: Iron deficiency anemia Providers: Cheikh Price DO Medicines: Monitored Anesthesia Care Patient Profile: This is a 78 year old male. Refer to note in patient chart for documentation of history and physical. Patient has symptoms. Complications: No immediate complications. Procedure: Pre-Anesthesia Assessment: - Prior to the procedure, a History and Physical was performed, and patient medications and allergies were reviewed. The patient is competent. The risks and benefits of the procedure and the sedation options and risks were discussed with the patient. All questions were answered and informed consent was obtained. Patient identification and proposed procedure were verified by the physician in the pre-procedure area. Mental Status Examination: alert and oriented. Airway Examination: normal oropharyngeal airway and neck mobility. Respiratory Examination: clear to auscultation. CV Examination: normal. Prophylactic Antibiotics: The patient does not require prophylactic antibiotics. Prior Anticoagulants: The patient has taken no anticoagulant or antiplatelet agents. ASA Grade Assessment: III - A patient with severe systemic disease. After reviewing the risks and benefits, the patient was deemed in satisfactory condition to undergo the procedure. The anesthesia plan was to use monitored anesthesia care (MAC). Immediately prior to administration of medications, the patient was re-assessed for adequacy to receive sedatives. The heart rate, respiratory rate, oxygen saturations, blood pressure, adequacy of pulmonary ventilation, and response to care were monitored throughout the procedure. The physical status of the patient was re-assessed after the procedure. After obtaining informed consent, the endoscope was passed under direct vision. Throughout the procedure, the patient's blood pressure, pulse, and oxygen saturations were monitored continuously. The gastroscope was introduced through the mouth, and advanced to the second part of duodenum. Scope In: 3:45:00 PM Scope Out: 3:49:38 PM Total Procedure Duration Time 0 hours 4 minutes 38 seconds Findings: One benign-appearing, intrinsic moderate (circumferential scarring or stenosis; an endoscope may pass) stenosis was found 20 to 24 cm from the incisors. The stenosis was traversed. A guidewire was placed and the scope was withdrawn. Dilation was performed with a Savary dilator with no resistance at 51 Fr. The dilation site was examined and showed moderate improvement in luminal narrowing. Estimated blood loss was minimal. There was evidence of an intact gastrostomy with a patent G-tube present on the greater curvature of the stomach. This was characterized by healthy appearing mucosa. Two non-bleeding linear gastric ulcers with no stigmata of bleeding were found in the gastric body. The largest lesion was 6 mm in largest dimension. Biopsies were taken with a cold forceps for histology. Verification of patient identification for the specimen was done. Biopsies were taken with a cold forceps for Helicobacter pylori testing. Verification of patient identification for the specimen was done. Estimated blood loss was minimal. Two non-bleeding linear gastric ulcers with no stigmata of bleeding were found in the cardia and in the gastric body. The largest lesion was 6 mm in largest dimension. Coagulation for hemostasis using heater probe was successful. Estimated blood loss was minimal. No gross lesions were noted in the duodenal bulb. Impression: - Benign-appearing esophageal stenosis. Dilated. - Intact gastrostomy with a patent G-tube present characterized by healthy appearing mucosa. - Non-bleeding gastric ulcers with no stigmata of bleeding. Biopsied. - Non-bleeding gastric ulcers with no stigmata of bleeding. Treated with a heater probe. - No gross lesions in the duodenal bulb. Recommendation: - Return patient to [facility] for [facility] care. - Resume previous diet. - Continue present medications. - Await pathology results. - Repeat upper endoscopy in 3 months for surveillance. Procedure Code(s): --- Professional --- 91404, 59, Esophagogastroduodenoscopy, flexible, transoral; with control of bleeding, any method 13906, Esophagogastroduodenoscopy, flexible, transoral; with insertion of guide wire followed by passage of dilator(s) through esophagus over guide wire 79992, 59,51, Esophagogastroduodenoscopy, flexible, transoral; with biopsy, single or multiple CPT copyright 2021 [employer]. All rights reserved. The codes documented in this report are preliminary and upon economic forecaster review may be revised to meet current compliance requirements. Cheikh Price DO 07/09/2023 4:02:40 PM This report has been signed electronically. Number of Addenda: 0 Note Initiated On: 07/09/2023 3:30 PM
--- NOTE | 2023-07-09 16:02 | OP.CCLET_ITS ---
07/09/2023 Alejandro Liu Re : Upper GI endoscopy procedure for Semaj Dumont Dear Noe This procedure was performed on Sunday, July 09, 2023. My impressions and recommendations are as follows: Impressions : - Benign-appearing esophageal stenosis. Dilated. - Intact gastrostomy with a patent G-tube present characterized by healthy appearing mucosa. - Non-bleeding gastric ulcers with no stigmata of bleeding. Biopsied. - Non-bleeding gastric ulcers with no stigmata of bleeding. Treated with a heater probe. - No gross lesions in the duodenal bulb. Recommendations : - Return patient to [facility] for ongoing care. - Resume previous diet. - Continue present medications. - Await pathology results. - Repeat upper endoscopy in 3 months for surveillance. My findings are described in the full procedure note, which is enclosed. If I can be of further assistance, please feel free to contact me at . Sincerely, Cheikh Price, 07/09/2023 4:02:40 PM This report has been signed electronically.
[2023-07-09] MEDS: Amiodarone 200 MG Tablet GT (17:43)
[2023-07-09] MEDS: Ascorbic Acid 500 MG Tablet 1000 MG GT (17:52)
[2023-07-09] MEDS: Cholecalciferol (VIT D3) 25 MCG TABLET (1,000 UNITS) 125 MCG GT (17:52)
[2023-07-09] MEDS: Zinc Sulfate 50 mg zinc (220 mg) ORAL capsule GT (17:52)
[2023-07-09] MEDS: Jevity 1.5. 1,000 ML Bottle 240 ML GT ×2 (17:53→22:45)
[2023-07-09] MEDS: Lactobacillis Acidophilus 2 CAP GT (22:45)
[2023-07-09] MEDS: Gabapentin 300 MG Capsule GT (22:45)
[2023-07-10 04:24] VITALS: BMI 18.9
[2023-07-10 05:30] VITALS: BP 119/68; PULSE 72; RESP 18; TEMP 36.5; O2SAT 99
[2023-07-10] MEDS: Piperacil/Tazobactam 3.375 GM in 0.9% Normal Saline (50mL MB+) 50 ML IV (05:47)
[2023-07-10] MEDS: Levothyroxine 50 MCG Tablet GT (05:47)
[2023-07-10 06:59] LABS: Absolute Lymphocyte Count 1.54 X10^3/uL (0.83-4.51); Absolute Neutrophil Count 2.2 X10^3/uL (2.0-7.7); Basophil# 0.03 X10^3/uL; Basophil% 0.7 % (0-1); Eosinophil# 0.22 X10^3/uL; Eosinophils% 4.9 % (0-5); Hematocrit 30.2 % (40-54); Hemoglobin 9.1 g/dL (13.0-16.5); Lymphocyte # 1.54 X10^3/ul (0.83-4.51); Lymphocyte % 34.5 % (19-41); Mean Corp Hgb Conc 30.1 g/dL (32-36); Mean Corpuscular Volume 96.2 fL (80-94); Mean Platelet Vol. 12.8 fl (6.2-12.0); Monocyte# 0.42 X10^3/uL; Monocyte% 9.4 % (0-10); NRBC Flagged by Analyzer 0 % (0-5); Neutrophil # 2.24 X10^3/uL (2.7-7.7); Neutrophil % 50.3 % (47-70); Platelet Count 124 K/mm3 (150-450); RBC Distribution Width CV 16.1 % (11.6-14.6); RBC Distribution Width SD 56.9 fl (35.1-43.9); Red Blood Count 3.14 M/mm3 (4.6-6.2); White Blood Count 4.5 K/mm3 (4.4-11.0)
[2023-07-10 07:36] LABS: Anion Gap 6 (5-15); BUN 20 mg/dL (7-18); BUN/Creat Ratio 16.4 RATIO (10-20); Calcium,Total 9.4 mg/dL (8.5-10.1); Chloride 108 mmol/L (98-107); Creatinine, Serum 1.22 mg/dL (0.70-1.30); EST Glomerular Filtration Rate 61 mL/min (>60); Est Glom Filt Rate - Afr Amer 74 mL/min (>60); Estimated Creatinine Clearance 43.57 ml/min; Glucose 83 mg/dL (74-106); Potassium 3.7 mmol/L (3.5-5.1); Sodium Level 140 mmol/L (136-145)
[2023-07-10 08:25] VITALS: O2SAT 95
--- NOTE | 2023-07-10 09:32 | PN.HOSP_ITS ---
Reason for Visit Reason for Visit: Diagnoses Sepsis, unspecified organism (07/05/23) Anemia, unspecified (07/05/23) Thrombocytopenia, unspecified (07/05/23) Unspecified severe protein-calorie malnutrition (07/05/23) Other disorders of phosphorus metabolism (07/05/23) Paroxysmal atrial fibrillation (07/05/23) Pneumonitis due to inhalation of food and vomit (07/05/23) Other abnormalities of breathing (07/05/23) Subjective Subjective Patient underwent EGD the day prior findings and interventions performed as noted below Objective Data Objective Data Vital Signs: Vital Signs Temp Pulse Resp BP Pulse Ox O2 Del Method O2 Flow Rate 97.7 F L 72 18 119/68 95 Trach Collar 3 07/10/23 05:30 07/10/23 05:30 07/10/23 05:30 07/10/23 05:30 07/10/23 08:25 07/10/23 08:25 07/10/23 08:25 Oxygen Flow Rate (L/min) 3 Oxygen Delivery Method Trach Collar Weight: 59.8 kg Body Mass Index (BMI) 18.9 Intake & Output: Intake and Output for Last 24 Hours 07/08/23 07/09/23 07/10/23 23:59 23:59 23:59 Intake Total 1431.75 / 1431.75 450 / 450 350.5 / 350.5 Output Total 1150 / 1500 1150 / 1400 650 / 650 Balance 281.75 / -68.25 -700 / -950 -299.5 / -299.5 Medical Nutrition Assessment Dietitian: Malnutrition Criteria Met Start: 07/05/23 1 2:34 Freq: Status: Active Protocol: Document 07/06/23 14:25 LO (Rec: 07/06/23 14:25 [id number]) Nutrition Malnutrition Evidence of Malnutrition Exists Yes Malnutrition (severe): Chronic Evidenced By Suboptimal Energy Intake ( Severe),Weight Loss (Severe), Physical Changes (Severe) Clinical Problem Chronic Disease or Condition Related Malnutrition Etiology severe, acute malnutrition related to inadequate enteral nutrition Signs/Symptoms as evidenced by Severe muscle wasting/fat loss evident per physical exam in orbital, clavicle, acromion, and temporal areas, unintentional wt loss of 8% x 3 months, estimated EN meeting ~65% of daily calorie and protein needs, BMI 18.5 Status Active Problem Recommendation Dietitian Recommendations/Changes NPO; Will continue Jevity 1.5 via PEG- 240mL bolus 4x/day w/ 40mL H2O flush before and after each bolus to provide 1440 calories, 61 g protein, and 1049mL total fluid/day per request of pt and spouse. Goal would be for 240mL bolus 5-6x daily to better meet pt's estimated nutrition needs. Lab / Micro Data 07/10/23 06:10 07/10/23 06:10 Labs: Laboratory Results - last 24 hr 07/10/23 06:10: WBC 4.5, RBC 3.14 L, Hgb 9.1 L, Hct 30.2 L, MCV 96.2 H, MCH 29.0, MCHC 30.1 L, RDW Std Deviation 56.9 H, RDW Coeff of Oz 16.1 H, Plt Count 124 L, MPV 12.8 H, Immature Gran % (Auto) 0.200, Neut % (Auto) 50.3, Lymph % (Auto) 34.5, Wilson % (Auto) 9.4, Eos % (Auto) 4.9, Baso % (Auto) 0.7, Absolute Neuts (auto) 2.2, Absolute Lymphs (auto) 1.54, Nucleated RBC % 0, Sodium 140, Potassium 3.7, Chloride 108 H, Carbon Dioxide 26.0, Anion Gap 6, BUN 20 H, Creatinine 1.22, Estim Creat Clear Calc 43.57, Est GFR (MDRD) Af Amer 74, Est GFR (MDRD) Non-Af 61, BUN/Creatinine Ratio 16.4, Glucose 83, Calcium 9.4 Micro: Microbiology 07/05/23 00:32 Blood Culture (Wb) - Port Blood Culture - Final No growth in 5 days. 07/05/23 00:58 Blood Culture (Wb) - Port Blood Culture - Final No growth in 5 days. 07/05/23 22:25 Sputum, Induced/Lukens Gram Stain - Final 07/05/23 22:25 Sputum, Induced/Lukens Respiratory Culture - Final Escherichia coli Klebsiella pneumoniae sp pneum Pseudomonas aeruginosa Proteus hauseri 07/06/23 08:53 Stool Stool Occult Blood (DIEGO) - Final Occult Blood Positive 07/05/23 12:45 Urine, Random Legionella Antigen - Final 07/05/23 12:45 Urine, Random Streptococcus pneumoniae Antigen (M - Final 07/04/23 22:35 Mucosa - Nose SARS-CoV-2, Influenza & RSV (PCR) - Final Physical Exam Narrative GENERAL: Appears cachectic HEENT: Atraumatic; trach collar in place EYES; Anicteric, Normal Conjunctiva NECK; supple, normal thyroid, RESPIRATORY: Diminished to auscultation CARDIOVASCULAR:? Regular S1 S2, GI:? soft, normoactive bowel sounds, : No Renal angle tenderness; EXTREMITIES:? No edema, no clubbing, MUSCULOSKELETAL:? no muscle wasting NEURO:? Awake;? no lateralizing signs. SKIN:? No Rash PSYCH; Flat? affect Assessment & Plan Assessment/Plan (1) Aspiration pneumonia of both lower lobes: QUALIFIERS: Aspiration pneumonia type: unspecified Qualified Code(s): J69.0 - Pneumonitis due to inhalation of food and vomit PLAN: Plan Patient is a 78-year-old gentleman with multiple comorbidities who was admitted with shortness of breath. Diagnosed with aspiration pneumonia. Patient hospital stay complicated by worsening anemia thrombocytopenia on Eliquis held consult placed to GI with plan for patient to undergo endoscopic evaluation 1. Acute on chronic hypoxic respiratory failure ? Secondary to pneumonia with MDR's and mucous plugging. ? 07/09/2023 patient back to his baseline with respect to his oxygen requirement 2. Pneumonia with MDR's ? Cultures so far positive for gram-negative jamie possible Pseudomonas given his previous history. Patient remains on Zosyn in addition to supplemental oxygen ? Patient final sputum cultures reviewed remains on appropriate antibiotic therapy Escherichia coli Klebsiella pneumoniae sp pneum Pseudomonas aeruginosa Proteus hauseri 3. Anemia - Secondary to chronic disorder monitoring H&H and transfuse if patient becomes symptomatic or hemoglobin falls below 7. Patient is on EliquVelti held consult placed to GI plan is for endoscopic evaluation ? 07/10/2023 EGD scheduled to be performed today Impressions : - Benign-appearing esophageal stenosis. Dilated. - Intact gastrostomy with a patent G-tube present characterized by healthy appearing mucosa. - Non-bleeding gastric ulcers with no stigmata of bleeding. Biopsied. - Non-bleeding gastric ulcers with no stigmata of bleeding. Treated with a heater probe. - No gross lesions in the duodenal bulb. Recommendations : - Return patient to [facility] for ongoing care. - Resume previous diet. - Continue present medications. - Await pathology results. - Repeat upper endoscopy in 3 months for surveillance. 4. Chronic congestive heart failure with reduced ejection 2D echo on 12/13/2022 showed EF of 35-40%, with moderate LV dysfunction with gloval LV hypokinesis and no significant valvular abnormality. 5. Paroxysmal A-fib ? Rate controlled patient is on Eliquis held given his anemia 6. 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 Status post tracheostomy and PEG tube placement. Patient is followed by oncology as outpatient 7. 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 Status post PEG tube placement 8. Chronic hypoxic respiratory failure ? Secondary to laryngeal CA that is post tracheostomy 9. Chronic hypotension ? Patient is on midodrine 10. Severe protein calorie malnutrition ? As evidenced by inadequate oral intake secondary to patient multiple comorbidities. Patient is currently n.p.o. and receives nutrition via PEG tube 11. Chronic pain syndrome ? Patient is on gabapentin 12. Hypothyroidism - Patient is on levothyroxine home dose continued 13. GERD ? Patient is on PPI 14. Chronic urinary retention secondary to BPH, Status post TURP on 04/20/2022. 15. Thrombocytopenia ? Monitoring 16. COPD ? Bronchodilator treatment as needed 17 DVT prophylaxis ? On apixaban held given patient anemia 18. Chronic hypotension -patient is on midodrine discontinued given his relatively stable blood pressure Time spent in the patient's overall evaluation,decision-making process, review of diagnostic data, adjustment of management, discussion with other providers, nursing nursing and ancillary staff involved in patient's care documentation, 36 Minutes
--- NOTE | 2023-07-10 09:42 | DS.PCM_ITS ---
Providers Date of Admission: 07/05/23 Date of Discharge: 07/10/23 Primary Care Physician: LEÓN Fung Consultations 07/06/23 11:14 Consult: Gastroenterology Routine Consulting Provider: [facility] Reason for Consult: anemia with Guiac + stool EMERGENT Consult: No MD Notified: Yes Date Notified: 07/06/23 Time Notified: 11:14 Method of Notification: Text Reason For Visit: ASPIRATION PNEUMONITIS, SEPSIS, HYPOTENSION Diagnosis Discharge Diagnosis (1) Aspiration pneumonia of both lower lobes: Status: Acute Code(s): J69.0 - Pneumonitis due to inhalation of food and vomit Qualifiers: Aspiration pneumonia type: unspecified Qualified Code(s): J69.0 - Pn eumonitis due to inhalation of food and vomit Plan Patient is a 78-year-old gentleman with multiple comorbidities who was admitted with shortness of breath. Diagnosed with aspiration pneumonia. Patient hospital stay complicated by worsening anemia thrombocytopenia on Eliquis held consult placed to GI with plan for patient to undergo endoscopic evaluation 1. Acute on chronic hypoxic respiratory failure ? Secondary to pneumonia with MDR's and mucous plugging. ? 07/09/2023 patient back to his baseline with respect to his oxygen requirement 2. Pneumonia with MDR's ? Cultures so far positive for gram-negative jamie possible Pseudomonas given his previous history. Patient remains on Zosyn in addition to supplemental oxygen ? Patient final sputum cultures reviewed remains on appropriate antibiotic therapy Escherichia coli Klebsiella pneumoniae sp pneum Pseudomonas aeruginosa Proteus hauseri 3. Anemia - Secondary to chronic disorder monitoring H&H and transfuse if patient becomes symptomatic or hemoglobin falls below 7. Patient is on Eliquis held consult placed to GI plan is for endoscopic evaluation ? 07/10/2023 EGD scheduled to be performed today Impressions : - Benign-appearing esophageal stenosis. Dilated. - Intact gastrostomy with a patent G-tube present characterized by healthy appearing mucosa. - Non-bleeding gastric ulcers with no stigmata of bleeding. Biopsied. - Non-bleeding gastric ulcers with no stigmata of bleeding. Treated with a heater probe. - No gross lesions in the duodenal bulb. Recommendations : - Return patient to [facility] for ongoing care. - Resume previous diet. - Continue present medications. - Await pathology results. - Repeat upper endoscopy in 3 months for surveillance. 4. Chronic congestive heart failure with reduced ejection 2D echo on 12/13/2022 showed EF of 35-40%, with moderate LV dysfunction with gloval LV hypokinesis and no significant valvular abnormality. 5. Paroxysmal A-fib ? Rate controlled patient is on Eliquis held given his anemia 6. 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 Status post tracheostomy and PEG tube placement. Patient is followed by oncology as out patient 7. 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 Status post PEG tube placement 8. Chronic hypoxic respiratory failure ? Secondary to laryngeal CA that is post tracheostomy 9. Chronic hypotension ? Patient is on midodrine 10. Severe protein calorie malnutrition ? As evidenced by inadequate oral intake secondary to patient multiple comorbidities. Patient is currently n.p.o. and receives nutrition via PEG tube 11. Chronic pain syndrome ? Patient is on gabapentin 12. Hypothyroidism - Patient is on levothyroxine home dose continued 13. GERD ? Patient is on PPI 14. Chronic urinary retention secondary to BPH, Status post TURP on 04/20/2022. 15. Thrombocytopenia ? Monitoring 16. COPD ? Bronchodilator treatment as needed 17 DVT prophylaxis ? On apixaban held given patient anemia 18. Chronic hypotension -patient is on midodrine discontinued given his relatively stable blood pressure Time spent in the patient's overall evaluation,decision-making process, review of diagnostic data, adjustment of management, discussion with other providers, nursing nursing and ancillary staff involved in patient's care documentation, 36 Minutes Medications at Discharge Home Medications lactose-reduced food with fiber 0.06 gram-1.5 kcal/mL oral liquid (Jevity 1.5 Dipesh) 300 ml G-tube 4X/DAY NUTRITION #0 mL 01/25/23 amiodarone 200 mg tablet 200 mg G-tube DAILY AFIB 30 days #30 tabs 02/13/23 budesonide 0.5 mg/2 mL suspension for nebulization 0.5 mg (2 mL) inhalation BID COPD #120 mL 03/11/23 apixaban 2.5 mg tablet (Eliquis) 2.5 mg feeding tube BID BLOOD THINNER 03/15/23 omeprazole 40 mg capsule,delayed release 40 mg feeding tube DAILY ACID REFLUX 03/15/23 gabapentin 300 mg capsule 300 mg feeding tube BID NERVE PAIN #60 caps 04/22/23 midodrine 5 mg tablet 15 mg (3 x 5 mg) G-tube TIDCM BLOOD PRESSURE 30 days #270 tabs 04/22/23 levothyroxine 50 mcg tablet 50 mcg G-tube DAILY@0600 THYROID 90 days #90 tabs 05/20/23 guaifenesin 100 mg/5 mL oral liquid 100 mg PO Q6H PRN congestion 06/10/23 ipratropium 0.5 mg-albuterol 3 mg (2.5 mg base)/3 mL nebulization soln 3 ml inhalation Q4H PRN COPD #180 mL 06/10/23 ipratropium bromide 42 mcg (0.06 %) nasal spray 2 spray intranasal BID 07/04/23 levofloxacin 500 mg tablet 500 mg feeding tube DAILY 10 days #10 tabs 07/10/23 Hospital Course Procedures EGD Physical Exam Narrative GENERAL: Appears cachectic HEENT: Atraumatic; trach collar in place EYES; Anicteric, Normal Conjunctiva NECK; supple, normal thyroid, RESPIRATORY: Diminished to auscultation CARDIOVASCULAR:? Regular S1 S2, GI:? soft, normoactive bowel sounds, : No Renal angle tenderness; EXTREMITIES:? No edema, no clubbing, MUSCULOSKELETAL:? no muscle wasting NEURO:? Awake;? no lateralizing signs. SKIN:? No Rash PSYCH; Flat? affect Medical Records Data Medical Nutrition Assessment Dietitian: Malnutrition Criteria Met Start: 07/05/23 12:34 Freq: Status: Active Protocol: Document 07/06/23 14:25 LO (Rec: 07/06/23 14:25 [id number]) Nutrition Malnutrition Evidence of Malnutrition Exists Yes Malnutrition (severe): Chronic Evidenced By Suboptimal Energy Intake ( Severe),Weight Loss (Severe), Physical Changes (Severe) Clinical Problem Chronic Disease or Condition Related Malnutrition Etiology severe, acute malnutrition related to inadequate enteral nutrition Signs/Symptoms as evidenced by Severe muscle wasting/fat loss evident per physical exam in orbital, clavicle, acromion, and temporal areas, unintentional wt loss of 8% x 3 months, estimated EN meeting ~65% of daily calorie and protein needs, BMI 18.5 Status Active Problem Recommendation Dietitian Recommendations/Changes NPO; Will continue Jevity 1.5 via PEG- 240mL bolus 4x/day w/ 40mL H2O flush before and after each bolus to provide 1440 calories, 61 g protein, and 1049mL total fluid/day per request of pt and spouse. Goal would be for 240mL bolus 5-6x daily to better meet pt's estimated nutrition needs. Weight / BMI Weight Weight: 59.8 kg Body Mass Index (BMI) 18.9 ABG / Lab / Microbiology Data 07/10/23 06:10 07/10/23 06:10 Laboratory: Laboratory Results - last 24 hr 07/10/23 06:10: WBC 4.5, RBC 3.14 L, Hgb 9.1 L, Hct 30.2 L, MCV 96.2 H, MCH 29.0, MCHC 30.1 L, RDW Std Deviation 56.9 H, RDW Coeff of Oz 16.1 H, Plt Count 124 L, MPV 12.8 H, Immature Gran % (Auto) 0.200, Neut % (Auto) 50.3, Lymph % (Auto) 34.5, [place] % (Auto) 9.4, Eos % (Auto) 4.9, Baso % (Auto) 0.7, Absolute Neuts (auto) 2.2, Absolute Lymphs (auto) 1.54, Nucleated RBC % 0, Sodium 140, Potassium 3.7, Chloride 108 H, Carbon Dioxide 26.0, Anion Gap 6, BUN 20 H, Creatinine 1.22, Estim Creat Clear Calc 43.57, Est GFR (MDRD) Af Amer 74, Est GFR (MDRD) Non-Af 61, BUN/Creatinine Ratio 16.4, Glucose 83, Calcium 9.4 Microbiology: Microbiology 07/05/23 00:32 Blood Culture (Wb) - Port Blood Culture - Final No growth in 5 days. 07/05/23 00:58 Blood Culture (Wb) - Port Blood Culture - Final No growth in 5 days. 07/05/23 22:25 Sputum, Induced/Lukens Gram Stain - Final 07/05/23 22:25 Sputum, Induced/[place]ukens Respiratory Culture - Final Escherichia coli Klebsiella pneumoniae sp pneum Pseudomonas aeruginosa Proteus hauseri 07/06/23 08:53 Stool Stool Occult Blood (DIEGO) - Final Occult Blood Positive 07/05/23 12:45 Urine, Random Legionella Antigen - Final 07/05/23 12:45 Urine, Random Streptococcus pneumoniae Antigen (M - Final 07/04/23 22:35 Mucosa - Nose SARS-CoV-2, Influenza & RSV (PCR) - Final D/C Instructions Discharge Diet: No restrictions Discharge Activity: Return to Normal Activity Call your doctor if you observe: Fever of 101 or Higher, Shortness of breath, Fainting spells and Chest pain Meaningful Use Info Meaningful Use Diagnoses (Choose all that apply): None applicable Discharge Plan Admission Admit Date/Time: 07/05/23 00:16 Attending Provider: Larry Hopper Primary Care Provider: Alejandro Liu Consulting Providers: Larry Mercado; Kristine Graham Discharge Orders/Prescriptions Prescriptions: New levofloxacin 500 mg tablet 500 mg feeding tube DAILY 10 Days Qty: 10 0RF Continued budesonide 0.5 mg/2 mL suspension for nebulization 0.5 mg inhalation BID Qty: 120 6RF guaifenesin 100 mg/5 mL liquid 100 mg PO Q6H PRN (Reason: congestion) Patient Comments: TAKE 10 ML BY MOUTH EVERY 6 HOURS NEEDED FOR COUGH ipratropium-albuterol 0.5 mg-3 mg(2.5 mg base)/3 mL solution for nebulization 3 ml inhalation Q4H PRN (Reason: COPD) Qty: 180 6RF gabapentin 300 mg capsule 300 mg feeding tube BID Qty: 60 6RF midodrine 5 mg tablet 15 mg G-tube TIDCM 30 Days Qty: 270 3RF Jevity 1.5 Dipesh 0.06 gram-1.5 kcal/mL Liquid 300 ml G-tube 4X/DAY Qty: 0 0RF Hold Instructions: Order Changed omeprazole 40 mg capsule,delayed release(DR/EC) 40 mg feeding tube DAILY Eliquis 2.5 mg tablet 2.5 mg feeding tube BID amiodarone 200 mg Tablet 200 mg G-tube DAILY 30 Days Qty: 30 0RF ipratropium bromide 42 mcg (0.06 %) spray,non-aerosol 2 spray INTRANASAL BID levothyroxine 50 mcg tablet 50 mcg G-tube DAILY@0600 90 Days Qty: 90 2RF Referrals / Follow Up: Alejandro Liu PA [Primary Care Provider] - Disposition Disposition (needs filled in before D/C Order can be placed): Home Health Servic e Charges/Coding Visit Charges Inpatient E&M: 01849 Disch Hosp >30min
--- NOTE | 2023-07-10 10:29 | PHA.DC_ITS ---
Pharmacy [facility] has performed discharge medication reconciliation and counseling for this patient. 1. LEVOFLOXACIN 500MG PO DAILY X 10 DAYS The patient's discharge medication list was reviewed for discrepancies and discrepancies were resolved. The patient was counseled on the following discharge medications and changes in medications for homegoing were reviewed. The Reason for Use, instructions for use, and potential side effects were reviewed for all new medications. The patient's questions regarding all of their medications were answered. The patient was able to verbally demonstrate an understanding of their discharge medications. Medications at Discharge Home Medications lactose-reduced food with fiber 0.06 gram-1.5 kcal/mL oral liquid (Jevity 1.5 Dipesh) 300 ml G-tube 4X/DAY NUTRITION #0 mL 01/25/23 amiodarone 200 mg tablet 200 mg G-tube DAILY AFIB 30 days #30 tabs 02/13/23 budesonide 0.5 mg/2 mL suspension for nebulization 0.5 mg (2 mL) inhalation BID COPD #120 mL 03/11/23 apixaban 2.5 mg tablet (Eliquis) 2.5 mg feeding tube BID BLOOD THINNER 03/15/23 omeprazole 40 mg capsule,delayed release 40 mg feeding tube DAILY ACID REFLUX 03/15/23 gabapentin 300 mg capsule 300 mg feeding tube BID NERVE PAIN #60 caps 04/22/23 midodrine 5 mg tablet 15 mg (3 x 5 mg) G-tube TIDCM BLOOD PRESSURE 30 days #270 tabs 04/22/23 levothyroxine 50 mcg tablet 50 mcg G-tube DAILY@0600 THYROID 90 days #90 tabs 05/20/23 guaifenesin 100 mg/5 mL oral liquid 100 mg PO Q6H PRN congestion 06/10/23 ipratropium 0.5 mg-albuterol 3 mg (2.5 mg base)/3 mL nebulization soln 3 ml inhalation Q4H PRN COPD #180 mL 06/10/23 ipratropium bromide 42 mcg (0.06 %) nasal spray 2 spray intranasal BID 07/04/23 levofloxacin 500 mg tablet 500 mg feeding tube DAILY 10 days #10 tabs 07/10/23
[2023-07-10 10:52] VITALS: BP 144/83; PULSE 75; RESP 16; TEMP 36.9; O2SAT 100
[2023-07-10] MEDS: Ipratropium Bromide 0.06% NASAL SPRAY 2 SPRAY NASAL (10:55)
[2023-07-10] MEDS: Jevity 1.5. 1,000 ML Bottle 240 ML GT (10:55)
[2023-07-10] MEDS: Gabapentin 300 MG Capsule GT (10:55)
[2023-07-10] MEDS: Ascorbic Acid 500 MG Tablet 1000 MG GT (10:56)
[2023-07-10] MEDS: Amiodarone 200 MG Tablet GT (10:56)
[2023-07-10] MEDS: Lactobacillis Acidophilus 2 CAP GT (10:56)
[2023-07-10] MEDS: Pantoprazole Sodium 40 MG in 0.9% Normal Saline (100mL MB+) 100 ML 330 MG IV (10:57)
[2023-07-10] MEDS: Cholecalciferol (VIT D3) 25 MCG TABLET (1,000 UNITS) 125 MCG GT (11:14)
[2023-07-10] MEDS: Zinc Sulfate 50 mg zinc (220 mg) ORAL capsule GT (11:15)
[2023-07-10 13:24] VITALS: O2SAT 91; O2SAT 94
--- NOTE | 2023-07-10 13:30 | CASEMGMT ---
Patient has order for discharge. RN CM in to discuss and confirm setup of [facility]. Per patient and , patient is doing better and do not feel he needs HHC at discharge. Patient maintained on home oxygen. Patient and had no further questions or concenrs. RN CM called [facility] and cancelled referral.
[2023-07-10 14:17] VITALS: BP 139/77; PULSE 90; RESP 16; TEMP 36.6; O2SAT 98
== END 2023-07-10 15:18 | disposition home health service (06) | DRG 871 ==
LOC: ED 23:23 → PCU 07-05 00:23
PROVIDERS: Anesthesiology; Internal Medicine; Internal Medicine Gastroenterology; Admitting Provider Internal Medicine; Emergency Provider Emergency Medicine; PCP Physician Assistant; Visit Provider Internal Medicine
PROC: 0DJ08ZZ Inspection of Upper Intestinal Tract, Via Natural or Artificial Opening Endoscopic (ICD-10-PCS; CPT 43235; principal; 2023-07-09 11:55)
DX: A41.9 Sepsis, unspecified organism (principal); J69.0 Pneumonitis due to inhalation of food and vomit; J96.21 Acute and chronic respiratory failure with hypoxia; E43 Unspecified severe protein-calorie malnutrition; C78.02 Secondary malignant neoplasm of left lung; I50.22 Chronic systolic (congestive) heart failure; I42.9 Cardiomyopathy, unspecified; N13.8 Other obstructive and reflux uropathy; Z68.1 Body mass index [BMI] 19.9 or less, adult; E83.39 Other disorders of phosphorus metabolism; D69.6 Thrombocytopenia, unspecified; I95.89 Other hypotension; N18.32 Chronic kidney disease, stage 3b; J44.9 Chronic obstructive pulmonary disease, unspecified; I48.0 Paroxysmal atrial fibrillation; Z93.0 Tracheostomy status; C10.9 Malignant neoplasm of oropharynx, unspecified; Z93.1 Gastrostomy status; E03.9 Hypothyroidism, unspecified; D50.9 Iron deficiency anemia, unspecified; G62.9 Polyneuropathy, unspecified; K21.9 Gastro-esophageal reflux disease without esophagitis; K22.2 Esophageal obstruction; K25.9 Gastric ulcer, unspecified as acute or chronic, without hemorrhage or perforation; Z79.01 Long term (current) use of anticoagulants; Z87.891 Personal history of nicotine dependence; Z80.0 Family history of malignant neoplasm of digestive organs; Z66 Do not resuscitate; Z79.51 Long term (current) use of inhaled steroids; N40.1 Benign prostatic hyperplasia with lower urinary tract symptoms; Z92.3 Personal history of irradiation; G89.4 Chronic pain syndrome; R33.9 Retention of urine, unspecified; R13.12 Dysphagia, oropharyngeal phase
CPT/HCPCS: 31720; 36415; 36591; 71045; 71046; 80048; 80053; 80202; 82274; 82728; 83540; 83550; 83605; 83735; 84100; 84134; 84443; 85025; 85027; 85610; 85730; 87040; 87070; 87077; 87184; 87186; 87205; 87449; 87631; 88305; 88342; 93005; 94762; 97162; 97166; 97530; 97535; 97802; 97803; 99284; J7030; J7040; J7050; J7120; P9047; A4216; J0295; J2405; J2916

== ENCOUNTER 2023-10-09 15:36 | Emergency (ER) | payer MEDICARE, OTHER, SELFPAY ==
[2023-10-09 15:37] VITALS: BP 135/80; PULSE 84; RESP 22; TEMP 36.6; O2SAT 95
[2023-10-09 15:39] VITALS: BMI 17.6
[2023-10-09 17:36] VITALS: BP 128/76; PULSE 82; RESP 16; O2SAT 94
--- NOTE | 2023-10-09 17:48 | EX.ED.DYSGE1 ---
HPI History of Present Illness Chief Complaint: Other, Pain/Inj Detail of Chief Complaint: Leaking feeding tube needs replaced. Informant: patient and spouse/S.O. Onset/Context/Timing Onset: Today Context: Gradual Onset Timing: Continuous Current Severity: Mild Maximum Severity: Mild Narrative Narrative: 78-year-old male with significant past medical history of tracheal cancer with a tracheostomy now. History of A-fib cardiomyopathy, respiratory failure and chronic kidney disease. He has chronic feeding tubes. And today started leaking around the feeding tube has been replaced for about a year. He has had tubes in this site for the last 9 years. has a new tube with her they were just hoping we could replace it. 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 Pneumonitis Thrush, oral Pneumonia Cancer Ambulates with cane Indwelling urethral catheter present Tracheostomy in place On home oxygen therapy Neuropathy Dysphagia Wears glasses Dietary restriction Former smoker Shortness of breath on exertion tracheotomy and laryngeal biopsy Long-term use of high-risk medication Secondary malignant neoplasm of lung Agranulocytosis secondary to cancer chemotherapy 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 Home Medications ?Medication ?Instructions ?Recorded ?Last Taken ?Type lactose-reduced food with fiber 300 ml G-tube 4X/DAY NUTRITION #0 01/25/23 03/14/23 Rx 0.06 gram-1.5 kcal/mL oral liquid mL (Jevity 1.5 Dipesh) amiodarone 200 mg tablet 200 mg G-tube DAILY AFIB 30 days 02/13/23 03/14/23 Rx #30 tabs budesonide 0.5 mg/2 mL suspension 0.5 mg (2 mL) inhalation BID COPD 03/11/23 Unknown Rx for nebulization #120 mL apixaban 2.5 mg tablet (Eliquis) 2.5 mg feeding tube BID BLOOD 03/15/23 03/14/23 History THINNER omeprazole 40 mg capsule,delayed 40 mg feeding tube DAILY ACID 03/15/23 03/14/23 History release REFLUX midodrine 5 mg tablet 15 mg (3 x 5 mg) G-tube TIDCM 04/22/23 Unknown Rx BLOOD PRESSURE 30 days #270 tabs ipratropium 0.5 mg-albuterol 3 mg 3 ml inhalation Q4H PRN COPD #180 06/10/23 Unknown Rx (2.5 mg base)/3 mL nebulization mL soln ipratropium bromide 42 mcg (0.06 2 spray intranasal BID 07/04/23 Unknown History %) nasal spray gabapentin 300 mg capsule 300 mg feeding tube BID NERVE PAIN 08/20/23 Unknown Rx #60 caps levothyroxine 50 mcg tablet 50 mcg G-tube DAILY@0600 THYROID 08/20/23 Unknown Rx 90 days #90 tabs guaifenesin 100 mg/5 mL oral liquid 100 mg (5 mL) PO Q6H PRN 09/20/23 Unknown Rx congestion #473 mL Allergy/AdvReac Type Severity Reaction Status Date / Time venom-wasp Allergy Anaphylaxis Verified 10/09/23 15:39 nystatin AdvReac Severe Nausea/Vom/ Verified 10/09/23 15:39 Diarrhea pseudoephedrine HCl (From AdvReac Severe Unknown Verified 10/09/23 15:39 Sudafed) Antihistamines - Alkylamine AdvReac Mild Other Verified 10/09/23 15:39 Family History Father Colon cancer Hypertension Mother Hypertension Surgical History History of gastrostomy History of tracheostomy S/P TURP S/P percutaneous endoscopic gastrostomy (PEG) tube placement History of surgery Hx of tonsillectomy Social History household members: significant other Smoking Status: Former smoker quit date: 04/08/17 pack-years: 55 alcohol intake: never substance use type: does not use ROS ROS ED ROS Narrative Denies recent illness. Review of Systems ROS Unobtainable: Denies due to encephalopathy Constitutional Constitutional ED: Denies chills or fever(s) ENT ENT ED: Denies ear pain Cardiovascular Cardiovascular: Denies chest pain Respiratory/Chest Respiratory/Chest: Denies cough Gastrointestinal Gastrointestinal: Denies abdominal pain Genitourinary Genitourinary ED: Denies dysuria or hematuria Musculoskeletal Musculoskeletal: Denies arthralgias Integumentary Denies abscess Neurologic Neurologic: Denies headache(s) Psychiatric Psychiatric: Denies anxiety Endocrine Endocrinology: Denies cold intolerance Hematologic/Lymphatic Hematologic/Lymphatic: Reports none Allergic/Immunologic Allergic/Immunologic ED: Denies mouth swelling, tongue swelling or urticaria EXAM Physical Exam Narrative Exam Narrative: Well-appearing chronically ill 78-year-old male. Vital signs stable afebrile. H EENT exam unremarkable. Tracheostomy in place in his neck. Lungs clear to auscultation. Heart regular rhythm rate about 80 no murmur. Chest wall and ribs nontender. Abdomen soft nondistended normal bowel sounds no peritoneal signs. Completely nontender. Is a feeding tube and his left upper quadrant. It is leaking. That was removed. They had a similar tube with them. 16 Romansh. We placed it filled the balloon with 6 cc of sterile saline. I checked the balloon prior to placement. Appears to be anchored well. There is gastric contact in the lumen.. It slid in easily. Moving all 4 extremities. Nontender no edema. He is awake alert. Const Vital Signs: 10/09/23 15:36 10/09/23 15:37 10/09/23 17:36 Temperature 98 F Temperature Source Temporal Pulse Rate 84 82 Respiratory Rate 22 H 16 Respiratory Effort Normal Non-Labored Respiratory Pattern Normal Blood Pressure 135/80 H 128/76 H Blood Pressure Mean 98 93 Pulse Ox 95 94 Oxygen Delivery Method Trach Collar Trach Collar Oxygen Flow Rate (L/min) 3 3 Positive well nourished and well developed; Negative for obese, cachectic, contractures or unkempt General Appearance ED: well developed and NAD; Negative for unkempt, cachectic, contractures, cyanotic, diaphoretic or pallor Nutritional Appearance: Negative for cachectic or obese HEENT Reports moist mucous membranes Negative for trauma or tenderness Eyes PERRL and EOMs intact bilaterally General Eye ED: Negative for pale conjunctiva, scleral icterus or other Neck no lymphadenopathy, supple and no JVD General: Negative for tenderness Lymph Lymphatic: Negative for other Chest Wall palpation of chest normal Chest: Negative for other Resp normal respiratory effort and clear to auscultation bilaterally Effort and Inspection: Negative for retractions Auscultation: Negative for rales, rhonchi or wheezes Cardio regular rate, regular rhythm, S1 normal heart sound, S2 normal heart sound and no murmurs GI normal to inspection, nondistended, normoactive bowel sounds, non-tender, non-distended and no masses GI Narrative: Placed a new feeding tube in his left upper quadrant. Went in easily. Blew up the lumen was 6 cc of sterile saline. Tolerated well. Inspection: Negative for abdominal distention Auscultation: normoactive bowel sounds Palpation: soft; Negative for tender, guarding or rebound tenderness present Back/Spine no CVA tenderness Extremity normal to inspection General Extremety ED: Negative for edema or tenderness General Extremity: Negative for edema Neuro oriented x3 and CN's II-XII intact bilaterally Sensorium / Orientation: alert; Negative for lethargic or stuporous Motor Exam: strength 5/5 throughout Psych mental status grossly normal Appearance: Negative for unkempt Attitude: No agitated Mood & Affect: Negative for depressed, anxious or tearful Skin no rashes or lesions noted and no wounds General Skin Exam: Negative for jaundice or pallor MDM MDM MDM Narrative Medical decision making narrative: 78-year-old gentleman presents with feeding tube replacement. Already done it went in easily. We are checking a KUB with contrast to ensure placement. He will be discharged home. Patient doing well at 6:10 PM. To be discharged. I went over the x-ray results with him. Radiography Chest X-Ray - ED: Read by ED Physician Diagnostic Testing: Single view KUB with contrast shows the feeding tube in good position. With contrast inside the stomach. Procedures Other Procedures Procedure(s): Left upper quadrant feeding tube placement. No difficulty. Will check placement with x-ray and contrast. Discharge Plan Triage Chief Complaint: Other, Pain/Inj ED Provider: Kyle Cardoso Dx/Rx/DC Orders Clinical Impression: Encounter for feeding tube placement, History of tracheostomy, History of atrial fibrillation, Hx of tracheal malignancy Prescriptions: No Action budesonide 0.5 mg/2 mL suspension for nebulization 0.5 mg inhalation BID Qty: 120 6RF ipratropium-albuterol 0.5 mg-3 mg(2.5 mg base)/3 mL solution for nebulization 3 ml inhalation Q4H PRN (Reason: COPD) Qty: 180 6RF midodrine 5 mg tablet 15 mg G-tube TIDCM 30 Days Qty: 270 3RF Jevity 1.5 Dipesh 0.06 gram-1.5 kcal/mL Liquid 300 ml G-tube 4X/DAY Qty: 0 0RF omeprazole 40 mg capsule,delayed release(DR/EC) 40 mg feeding tube DAILY Eliquis 2.5 mg tablet 2.5 mg feeding tube BID amiodarone 200 mg Tablet 200 mg G-tube DAILY 30 Days Qty: 30 0RF ipratropium bromide 42 mcg (0.06 %) spray,non-aerosol 2 spray INTRANASAL BID gabapentin 300 mg capsule 300 mg feeding tube BID Qty: 60 6RF levothyroxine 50 mcg tablet 50 mcg G-tube DAILY@0600 90 Days Qty: 90 2RF guaifenesin 100 mg/5 mL liquid 100 mg PO Q6H PRN (Reason: congestion) Qty: 473 11RF Primary Care Provider: Alejandro Liu Referrals: Alejandro Liu, PA [Primary Care Provider] - As Needed Activity Restrictions/Additional Instructions: You can use the feeding tube. Follow-up with any problems. Return if abdominal pain, bloating or fever. Print Language: Zambian Disposition Disposition: Home, Self Care
--- NOTE | 2023-10-09 17:55 | RAD_ITS ---
STUDY: X-RAY - ABDOMEN/PELVIS REASON FOR EXAM: Male, 78 years old. peg placement. with contrast TECHNIQUE: Single AP view of the abdomen / pelvis. COMPARISON: None. FINDINGS: Contrast injected through the PEG tube is seen within the stomach. No extravasation of contrast. Findings indicate satisfactory positioning of PEG tube. There is an unremarkable bowel gas pattern. There is no demonstrated free abdominal air. Electronically Signed: Byron Queen MD at 18:17 EDT , RAD/Abdomen Single View IMPRESSION: undefined
[2023-10-09 18:18] VITALS: BP 120/78; PULSE 84; RESP 16; TEMP 36.7; O2SAT 94
== END 2023-10-09 18:38 | disposition home or self-care (01) ==
LOC: ED 18:28
PROVIDERS: Emergency Provider Emergency Medicine; PCP Physician Assistant; Visit Provider Emergency Medicine
DX: K94.23 Gastrostomy malfunction (principal); I48.91 Unspecified atrial fibrillation; I42.9 Cardiomyopathy, unspecified; N18.30 Chronic kidney disease, stage 3 unspecified; Z87.891 Personal history of nicotine dependence; Z85.12 Personal history of malignant neoplasm of trachea
CPT/HCPCS: 43762; 74018; 99282

== ENCOUNTER → 2023-11-13 | Outpatient (CLI) | payer MEDICARE, OTHER, SELFPAY ==
--- NOTE | 2023-11-13 13:02 | CT_ITS ---
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 TECHNIQUE: Helically acquired images were obtained of the chest and abdomen after the intravenous administration of 75 mL Isovue-300. No oral contrast was administered. 2-D reformatted images provided. A radiation dose optimization technique was used for this scan. 1174 images. COMPARISON: 05/03/2023, 11/09/2022 FINDINGS: ----Chest: LARGE AIRWAYS: Tracheostomy tube tip in the mid trachea. Chronic patulous esophagus. LUNGS: Mild centrilobular emphysema and biapical scarring. Mild dependent tree-in-bud nodular and groundglass opacities in the right upper and middle lobes with decreased bilateral lower lobe dependent opacities. Mild bronchiectasis noted. Calcified right lower and left upper lobe granulomas. PLEURA: Mild left pleural effusion. HEART AND PERICARDIUM: Heart within normal limits in size, with coronary artery calcification. No significant pericardial effusion. VESSELS: No thoracic aortic aneurysm or dissection flap. Mild atherosclerosis. No large central central pulmonary embolism although study not performed with the pulmonary embolism protocol. Left chest wall port with catheter tip in the high right atrium. MEDIASTINUM AND PRANAV: Mildly enlarged peritracheal, precarinal, subcarinal lymph nodes again seen.. BONES: Degenerative change and osteopenia without new suspicious osteoblastic or osteolytic lesion. Stable sclerosis in the T1 vertebral body. Old right rib fractures posteriorly. ----Abdomen: BOWEL: Percutaneous gastrostomy tube in place. Small bowel nondilated. Moderate stool in the colon. PERITONEUM: No significant ascites or pathologically enlarged lymph nodes. LIVER: Calcified granuloma and several small cysts again seen. GALLBLADDER/BILIARY TREE: Probable sludge in the gallbladder. SPLEEN: Calcified granulomas. PANCREAS/ADRENAL GLANDS: Homogeneous and nonenlarged. KIDNEYS: Small bilateral cysts and calculi again seen. No hydronephrosis. VESSELS: Mildly ectatic infrarenal abdominal aorta. Atherosclerosis noted. BONES: Degenerative change without suspicious osteoblastic or osteolytic lesion. CT/CT Chest AND Abd W/ Contrast IMPRESSION: Bibasilar atelectasis and pneumonia, decreased from prior. Mild left pleural effusion, also decreased from prior. No significant interval change in mild mediastinal lymphadenopathy. No evidence for metastatic disease in the abdomen. Hepatic and renal cysts. Nonobstructing renal calculi. Electronically Signed: Eva Pena MD at 8:26 EDT ,
== END | disposition home or self-care (01) ==
LOC: CT 13:02
PROVIDERS: PCP Physician Assistant; Referring Provider Internal Medicine Medical Oncology; Visit Provider Internal Medicine Medical Oncology
DX: C13.8 Malignant neoplasm of overlapping sites of hypopharynx (principal); C78.02 Secondary malignant neoplasm of left lung
CPT/HCPCS: 71260; 74160; Q9967; A4216

== ENCOUNTER → 2024-05-11 | Outpatient (CLI) | payer MEDICARE, OTHER, SELFPAY ==
--- NOTE | 2024-05-11 12:52 | CT_ITS ---
PROCEDURE: CT CHEST AND ABDOMEN WITH CONTRAST REASON FOR EXAM: History of metastatic laryngeal carcinoma. TECHNIQUE: Contiguous axial scans of 2.5 mm slice thicknesses. Sagittal and coronal reconstruction images were obtained. One or more dose reduction techniques were used (e.g., automated exposure control, adjustment of mA and/or kv according to patient size, use of iterative reconstruction technique). COMPARISON: 11/13/2023 CT chest and abdomen. FINDINGS: CT CHEST: Hardware: Tracheostomy tube maintains his position. Dilated upper esophagus is redemonstrated. Lymph nodes: Stable enlarged lymph nodes in the mediastinum. Heart and Vasculature: Normal heart size. No pericardial effusion. Thoracic aorta and pulmonary arteries are unremarkable. Mild coronary artery calcifications. Lungs and Airways: Mild centrilobular emphysematous changes are again noted. Biapical parenchymal scarring. Mild bronchiectasis in the bilateral lower lobes. Decrease in the opacities in the bilateral lower lobes. Old healed granulomatous changes in the lung bases. Pleura: No pleural effusion. No pneumothorax. Bones: Pectus excavatum deformity. Mild multilevel spondylosis. CT ABDOMEN: Liver: Calcified granuloma in the dome. Stable cysts scattered throughout the liver. Gallbladder: Unremarkable. Spleen: Calcified granulomas. Pancreas: Unremarkable. Adrenals: Unremarkable. Kidneys: Stable bilateral renal cysts. Small nonobstructing calcifications in the upper and lower pole, right kidney measuring 0.3 cm. Left midpole calcification measuring 0.9 cm. Small 0.3 cm calcification, medial aspect of the left upper interpolar region. Bowel: Percutaneous gastrostomy tube in good position. Fecal debris throughout the colon. Lymph nodes: No suspicious lymph node enlargement at the upper abdomen. Vasculature: Mild to moderate atherosclerotic calcific disease of the aorta. Peritoneum / Retroperitoneum: No ascites or free air at the upper abdomen. Bones: Mild multilevel spondylosis. CT/CT Chest AND Abd W/ Contrast IMPRESSION: 1. Decrease in the areas of bibasilar airspace consolidation when compared to the previous study. 2. Stable mediastinal adenopathy. 3. Stable bilateral renal cysts and nonobstructing nephrolithiasis. 4. Percutaneous gastrostomy tube. 5. Stable hepatic cysts. 6. Other findings redemonstrated in the chest and abdomen are stable. Reading Location: [facility]
[2024-05-11 13:48] LABS: CREATININE FINGERSTICK < 1.0 mg/dL (0.70-1.30); EGFR FINGERSTICK > 60.0000 mL/min (>60)
== END | disposition home or self-care (01) ==
LOC: CT 12:50
PROVIDERS: PCP Internal Medicine; Referring Provider Nurse Practitioner Family; Visit Provider Nurse Practitioner Family
DX: C13.9 Malignant neoplasm of hypopharynx, unspecified (principal); C78.02 Secondary malignant neoplasm of left lung
CPT/HCPCS: 71260; 74160; Q9967

== ENCOUNTER 2024-06-05 18:45 | Emergency (ER) | payer MEDICARE, OTHER, SELFPAY ==
[2024-06-05 18:47] VITALS: BP 134/70; PULSE 103; RESP 19; TEMP 37.3; O2SAT 100; O2SAT 97; BMI 19.1
--- NOTE | 2024-06-05 18:51 | EX.ED.DYSGE1 ---
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 Pneumonitis Thrush, oral Pneumonia Cancer Ambulates with cane Indwelling urethral catheter present Tracheostomy in place On home oxygen therapy Neuropathy Dysphagia Wears glasses Dietary restriction Former smoker Shortness of breath on exertion tracheotomy and laryngeal biopsy Long-term use of high-risk medication Secondary malignant neoplasm of lung Agranulocytosis secondary to cancer chemotherapy 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 Home Medications ?Medication ?Instructions ?Recorded ?Last Taken ?Type lactose-reduced food with fiber 300 ml G-tube 4X/DAY NUTRITION #0 01/25/23 03/14/23 Rx 0.06 gram-1.5 kcal/mL oral liquid mL (Jevity 1.5 Dipesh) gabapentin 300 mg capsule 300 mg feeding tube BID NERVE PAIN 08/20/23 Unknown Rx #60 caps guaifenesin 100 mg/5 mL oral liquid 100 mg (5 mL) PO Q6H PRN 09/20/23 Unknown Rx congestion #473 mL budesonide 0.5 mg/2 mL suspension 0.5 mg (2 mL) inhalation BID COPD 01/08/24 Unknown Rx for nebulization #120 mL ipratropium bromide 42 mcg (0.06 2 spray intranasal BID PRN allergy 01/08/24 Unknown History %) nasal spray symptoms acetaminophen 325 mg capsule 325 mg PO ONCE PRN pain 01/20/24 Unknown History omeprazole 20 mg delayed 20 mg PO QDAY 01/20/24 Unknown History release,disintegrating tablet lidocaine-prilocaine 2.5 %-2.5 % 1 applic topical ONCE PRN port 02/24/24 Unknown Rx topical cream access 30 days #30 grams apixaban 2.5 mg tablet (Eliquis) 2.5 mg feeding tube BID BLOOD 03/19/24 Unknown Rx THINNER #180 tabs midodrine 5 mg tablet 15 mg (3 x 5 mg) G-tube TID for 04/15/24 Unknown Rx blood pressure 30 days #270 TABLETS levothyroxine 75 mcg tablet 75 mcg G-tube DAILY for disorder 04/17/24 Unknown Rx of thyroid gland #90 TABLETS amiodarone 100 mg tablet 100 mg G-tube DAILY AFIB #90 tabs 05/13/24 Unknown Rx cephalexin 250 mg/5 mL oral 500 mg (10 mL) PO TID 7 days #210 06/05/24 Unknown Rx suspension mL ondansetron HCl 4 mg/5 mL oral 4 mg (5 mL) PO Q8H PRN nausea and 06/05/24 Unknown Rx solution vomiting 7 days #50 mL Allergy/AdvReac Type Severity Reaction Status Date / Time venom-wasp Allergy Anaphylaxis Verified 05/18/24 11:41 nystatin AdvReac Severe Nausea/Vom/ Verified 05/18/24 11:41 Diarrhea pseudoephedrine HCl (From AdvReac Severe Unknown Verified 05/18/24 11:41 Sudafed) albuterol AdvReac Intermediate palpitation Verified 05/18/24 11:41 s Antihistamines - Alkylamine AdvReac Mild Other Verified 05/18/24 11:41 Family History Mother Hypertension Colon cancer Surgical History History of gastrostomy History of tracheostomy S/P TURP S/P percutaneous endoscopic gastrostomy (PEG) tube placement History of surgery Hx of tonsillectomy Social History household members: significant other current occupational status: retired current occupation: worked in [employer] Smoking Status: Former smoker quit date: 04/08/17 pack-years: 55 alcohol intake: former details: never a heavy drinker substance use type: does not use do you feel safe at home: Yes EXAM Physical Exam Const Vital Signs: 06/05/24 18:47 06/05/24 18:52 06/05/24 19:05 Temperature 99.2 F H Temperature Source Oral Pulse Rate 103 H Respiratory Rate 19 H Respiratory Effort Short of Breath Respiratory Pattern Tachypnea Blood Pressure 134/70 H Blood Pressure Mean 91 Pulse Ox 100 95 Oxygen Delivery Method Non-Rebreather Trach Collar Oxygen Flow Rate (L/min) 6 4 06/05/24 19:51 06/05/24 20:00 06/05/24 21:00 Temperature 99 F 99 F 98.8 F Temperature Source Oral Oral Oral Pulse Rate 87 86 90 Respiratory Rate 16 15 18 Respiratory Effort Respiratory Pattern Blood Pressure 137/67 H 132/67 H 117/61 Blood Pressure Mean 90 88 79 Pulse Ox 100 100 100 Oxygen Delivery Method Trach Collar Room Air Trach Collar Oxygen Flow Rate (L/min) 2 2 [facility] Narrative Medical decision making narrative: HISTORY OF PRESENT ILLNESS: 79-year-old male history of COPD, atrial fibrillation on Eliquis, CHF, malignant lung cancer, throat cancer, status post trach and PEG presents with concern for feeling weak and dizzy. He states this started approximately 1:30 PM. He notes he felt shaky felt diffusely weak felt as if he is going to pass out. Got nauseous and vomited x 1. Per nurse patient's caregiver she notes he has been having more issues with vomiting up his tube feeds. States she thinks is because it is PEG tube was placed to close his esophagus. The patient caregiver denies any recent fever, head trauma, chest pain, shortness of breath. Continue the patient's trach has yellow/dark expectorant. Noted some bleeding as well. Notes compliance with Eliquis. They deny any focal weakness. They deny any fevers. REVIEW OF SYSTEMS: Pertinent positives: [] Pertinent negatives: [] PHYSICAL EXAM: Nursing triage notes reviewed, Vital signs reviewed Constitutional: please see mdm HENT: MMM Eyes: Pupils equal round and reactive to light, Extraocular muscles intact Neck: No stridor, no JVD, full neck ROM Lungs: Clear to auscultation, No wheezing or rales. No increased work of breathing, no conversational dyspnea, no accessory muscle use, no nasal flaring. No respiratory distress noted Heart: Regular rate and rhythm, No murmurs, No rubs and No gallops, 2+ distal pulses (radial, femoral, posterior tibial) in all extremities Abdomen: Soft, there is no tenderness, rigidity, rebound or guarding, no obvious peritoneal signs, no palpable pulsatile abdominal masses, no auscultated abdominal bruit : No CVAT Extremities: No edema Neuro: No new focal neurological deficits, cranial nerves II through XII intact, 5/5 strength in all present extremities. Intact sensation to light touch in all present extremities, 2+ reflexes bilateral patella tendons. Skin: No rash or lesions noted MEDICAL DECISION MAKING: Chief Complaint: Dizziness/weakness External records reviewed: Reviewed prior imaging Factors affecting care: As per HPI Social determinants of health: Status post trach and PEG History obtained from others: Primary care Consults: none [facility] Narrative: The patient is initially tachycardic rate of 103, saturating well on nonrebreather by trach collar. Exam without focal weakness. Abdomen soft nontender. Lungs were clear. I considered the following differential diagnosis: Arrhythmia, ACS, acute pancreatitis, dehydration, electrolyte disturbance, pneumonia, intra-abdominal pathology (small bowel obstruction, perforation, pyelonephritis or nephrolithiasis), anemia Placed on monitor, IV placed. Broad lab and imaging workup was obtained ALL IMAGES (IF OBTAINED) HAVE BEEN PERSONALLY REVIEWED AND INTERPRETED BY MYSELF. EKG with normal sinus rhythm rate of 92, left axis deviation, slightly prolonged QT interval at 477, no STEMI High-sensitivity troponin is negative, no evidence of myocardial ischemia CBC with no leukocytosis to suggest systemic information, noted baseline anemia, noted thrombocytopenia which is also baseline CMP without significant electrolyte abnormalities, no acute kidney injury, baseline CKD, no sign of metabolic acidosis or endorgan hypoperfusion Lactate is wnl indicating no end-organ hypoperfusion and/or hypoxia. LFTs show no evidence of hepatobiliary pathology. Lipase is wnl indicating no pancreatic inflammation. Urinalysis with slight inflammation but no obvious UTI to suggest pyelonephritis CT scan of the head was negative CT scan of the abdomen pelvis showed evidence of kidney stone I suspect the etiology of the patients complaints are kidney stone related nausea vomiting and pain. Upon reassessment patient vital signs improved with a heart rate of 90, respirate of 18. Will prescribe Zofran and short course of Keflex given the patient's relative immunocompromise state and signs of inflammation on CT scan. The patient and/or family, caregivers express understanding. The patient and/or family, caregivers agrees with the plan. Shared decision making: I will have a discussion with the patient and or visitors regarding risk/benefits of further testing or admission. They will be made aware of of the risk/benefits inherent in this decision they will be given the opportunity to voice understanding. Total critical care time today provided was at least 0 minutes. This excludes separately billable procedures. Critical care time (if documented) is secondary to the patient having high probability of clinically significant/life threatening deterioration in the patient's condition which required my urgent intervention. Impression: 1. Diffuse weakness 2. Acute nausea and vomiting 3. Nephrolithiasis Dispo: Discharge home This note was generated with [employer] dictation software. It may contain incorrect words, spelling, and punctuation that were not noted in review of the chart prior to signing. Lab Data Labs: Laboratory Results - last 24 hr 06/05/24 06/05/24 06/05/24 19:15 19:57 20:00 WBC 8.5 RBC 2.93 L Hgb 9.6 L Hct 31.0 L MCV 105.8 H MCH 32.8 H MCHC 31.0 L RDW Std Deviation 54.1 H RDW Coeff of Oz 14.0 Plt Count 106 L MPV 14.4 H Immature Gran % (Auto) 0.400 Neut % (Auto) 75.9 H Lymph % (Auto) 14.3 L [place] % (Auto) 8.3 Eos % (Auto) 0.5 Baso % (Auto) 0.6 Absolute Neuts (auto) 6.5 Absolute Lymphs (auto) 1.21 Nucleated RBC % 0 Sodium 141 Potassium 4.4 Chloride Direct 100 Carbon Dioxide 31.6 H Anion Gap 9 BUN 45 H Creatinine 1.51 H Estim Creat Clear Calc 34.94 Est GFR (MDRD) Non-Af 47 L BUN/Creatinine Ratio 29.8 H Glucose 119 H Lactic Acid 1.5 Calcium 10.2 Total Bilirubin 0.46 AST 27 ALT 22 Alkaline Phosphatase 64 Troponin T High Sens 19 Total Protein 7.7 Albumin 3.6 Globulin 4.1 Albumin/Globulin Ratio 0.9 Lipase 33 Urine Color Yellow Urine Clarity Sl. Cloudy Urine pH 7.0 Ur Specific [place] 1.010 Urine Protein 100 H Urine Glucose (UA) Normal Urine Ketones Negative Urine Occult Blood 250 H Urine Nitrite Negative Urine Bilirubin Negative Urine Urobilinogen Normal Ur Leukocyte Esterase 100 H Urine RBC > 100 SEEN Urine WBC 5-10 SEEN Ur Squamous Epith Cells 0 SEEN Urine Bacteria 0 SEEN Hyaline Casts 0-5 SEEN Fine Granular Casts 0-5 SEEN Urine Mucus 0 SEEN POC Glucose 112 H Radiography Diagnostic Testing: Clinical Impression(s) from Imaging Studies Brain CT 06/05/24 19:19 IMPRESSION: Limited examination. No large intraparenchymal hematoma or space occupying lesion. Reading Location: [facility] Abdomen/Pelvis CT 06/05/24 19:20 IMPRESSION: 1. Obstructing left distal ureteral calculus with mild left hydroureteronephrosis, measuring 0.7 cm. 2. Moderate diffuse bladder wall thickening, which may be secondary to incomplete distention or recent bladder irritation. Additional considerations include developing urinary tract infection. Correlation with urinalysis recommended. 3. Bibasilar emphysema and scarring. One or more dose reduction techniques were used (e.g., Automated exposure control, adjustment of the mA and/or kV according to patient size, use of iterative reconstruction technique). Reading Location: [facility] Chest X-Ray 06/05/24 20:34 IMPRESSION: NO SIGNIFICANT CHANGE SINCE THE PRIOR EXAM. Reading Location: [facility] Discharge Plan Triage Chief Complaint: Weakness ED Provider: Hema Block Dx/Rx/DC Orders Instructions: Kidney Stone (Urine) Prescriptions: New cephalexin 250 mg/5 mL suspension for reconstitution 500 mg PO TID 7 Days Qty: 210 0RF ondansetron HCl 4 mg/5 mL solution 4 mg PO Q8H PRN (Reason: nausea and vomiting) 7 Days Qty: 50 0RF No Action budesonide 0.5 mg/2 mL suspension for nebulization 0.5 mg inhalation BID Qty: 120 6RF acetaminophen 325 mg capsule 325 mg PO ONCE PRN (Reason: pain) omeprazole 20 mg tablet,disintegrat, delay rel 20 mg PO QDAY amiodarone 100 mg tablet 100 mg G-tube DAILY Qty: 90 3RF Jevity 1.5 Dipesh 0.06 gram-1.5 kcal/mL Liquid 300 ml G-tube 4X/DAY Qty: 0 0RF ipratropium bromide 42 mcg (0.06 %) spray,non-aerosol 2 spray INTRANASAL BID PRN (Reason: allergy symptoms) gabapentin 300 mg capsule 300 mg feeding tube BID Qty: 60 6RF guaifenesin 100 mg/5 mL liquid 100 mg PO Q6H PRN (Reason: congestion) Qty: 473 11RF lidocaine-prilocaine 2.5-2.5 % cream 1 applic topical ONCE PRN (Reason: port access) 30 Days Qty: 30 2RF Eliquis 2.5 mg tablet 2.5 mg feeding tube BID Qty: 180 1RF midodrine 5 mg tablet 15 mg G-tube TID 30 Days Qty: 270 3RF levothyroxine 75 mcg tablet 75 mcg G-tube DAILY Qty: 90 0RF Primary Care Provider: Gloria Mora Referrals: Gloria Mora MD [Primary Care Provider] - Activity Restrictions/Additional Instructions: Thank you for trusting us with your care today! Please take Tylenol (2 pills, 650 mg), ibuprofen (2 pills, 400 mg) every 6 hours as needed for pain and fever control. Please return to the emergency department if your symptoms change or worsen. Please follow with your primary care physician for further outpatient evaluation and management. Print Language: Romanian
[2024-06-05 19:05] VITALS: O2SAT 95
--- NOTE | 2024-06-05 19:19 | CT_ITS ---
EXAM: BRAIN/HEAD WITHOUT CONTRAST CLINICAL HISTORY: 79-year-old male, dizziness. COMPARISON: None. TECHNIQUE: Routine CT imaging of the head without IV contrast. Additional multiplanar reformats were obtained. Dose reduction techniques were used including intermediate exposure control (AEC),iterative reconstruction technique, and/or mA and/or KV dose adjustments based on patient's size. FINDINGS: Visualization is markedly limited by patient positioning and streak artifact. No large intraparenchymal hematoma or space occupying lesion. The orbits, visualized paranasal sinuses and mastoids are unremarkable. CT/Brain/Head without Contrast IMPRESSION: Limited examination. No large intraparenchymal hematoma or space occupying les ion. Reading Location: [id number]
--- NOTE | 2024-06-05 19:20 | EKG12_ITS ---
Test Reason : DYSRHYTHMIA Blood Pressure : */* mmHG Vent. Rate : 92 BPM Atrial Rate : 92 BPM P-R Int : 146 ms QRS Dur : 70 ms QT Int : 386 ms P-R-T Axes : 59 -10 30 degrees QTcB Int : 477 ms Normal sinus rhythm Normal ECG Confirmed by Brice Fajardo ([id number]), story editor FREDY GOMEZ ([id number]) on 06/08/2024 10:51:46 AM Referred By: Confirmed By: Brice Fajardo
--- NOTE | 2024-06-05 19:20 | CT_ITS ---
PROCEDURE: ABDOMEN/PELVIS W IV CONT ONLY REASON FOR EXAM: 79-year-old male, nausea and vomiting, history of CKD, lung cancer, laryngeal cancer, COPD. TECHNIQUE: Abdomen and pelvis CT with intravenous contrast. No oral contrast. IV CONTRAST: Isovue-300 COMPARISON: CT chest and abdomen 05/11/2024. FINDINGS: Lung bases: Stable pectus excavatum configuration. Coronary artery and thoracic aortic calcifications. Partially visualized catheter tip terminating in the right atrium. Unchanged bibasilar atelectasis/scarring with bronchiectasis. Liver: The liver is normal in size with scattered cysts and additional hypodensities, too small to characterize. The major portal veins are patent. No biliary ductal dilation. Gallbladder: No radiopaque stones within the gallbladder. Spleen: Unremarkable. Pancreas: Unremarkable. Adrenals: Unremarkable. Kidneys: Bilateral renal cysts and additional hypodensities, too small to characterize. Mild left hydroureteronephrosis with obstructing stone within the distal left ureter, just proximal to the vesicoureteral junction, measuring 0.7 cm. No right hydronephrosis. Additional bilateral calcifications, likely a mix of nephrolithiasis and vascular calcifications. Bladder: Moderately distended with diffuse bladder wall thickening. Small diverticulum along the superior anterior surface. Reproductive Organs: Moderately enlarged prostate. Bowel: Indwelling PEG with balloon inflated within the lumen of the stomach. Moderate retained fecal material throughout the colon. No pneumoperitoneum or ascites. Normal appendix. Lymph nodes: No suspicious lymph node enlargement. Vasculature: Severe calcification of the aortoiliac vessels. Ectasia of the infrarenal abdominal aorta. Bones: Thoracolumbar spondylosis. Chronic bilateral rib fracture deformities. CT/Abdomen/Pelvis W IV Cont ONLY IMPRESSION: 1. Obstructing left distal ureteral calculus with mild left hydroureteronephros is, measuring 0.7 cm. 2. Moderate diffuse bladder wall thickening, which may be secondary to incomple te distention or recent bladder irritation. Additional considerations include developing urinary tract infection. Correlat ion with urinalysis recommended. 3. Bibasilar emphysema and scarring. One or more dose reduction techniques were used (e.g., Automated exposure contr ol, adjustment of the mA and/or kV according to patient size, use of iterative reconstruction technique). Reading Location: [facility]
[2024-06-05] MEDS: 0.9% Normal Saline (500mL Bag) 500 ML 999 ML IV (19:46)
[2024-06-05 19:49] LABS: Absolute Lymphocyte Count 1.21 X10^3/uL (0.83-4.51); Absolute Neutrophil Count 6.5 X10^3/uL (2.0-7.7); Basophil# 0.05 X10^3/uL; Basophil% 0.6 % (0-1); Eosinophil# 0.04 X10^3/uL; Eosinophils% 0.5 % (0-5); Hemoglobin 9.6 g/dL (13.0-16.5); Lymphocyte # 1.21 X10^3/ul (0.83-4.51); Lymphocyte % 14.3 % (19-41); Mean Corpuscular Hgb 32.8 pg (27.0-32.0); Mean Corpuscular Volume 105.8 fL (80-94); Mean Platelet Vol. 14.4 fl (6.2-12.0); Monocyte% 8.3 % (0-10); NRBC Flagged by Analyzer 0 % (0-5); Neutrophil # 6.45 X10^3/uL (2.7-7.7); Neutrophil % 75.9 % (47-70); Platelet Count 106 K/mm3 (150-450); RBC Distribution Width SD 54.1 fl (35.1-43.9); Red Blood Count 2.93 M/mm3 (4.6-6.2); White Blood Count 8.5 K/mm3 (4.4-11.0)
[2024-06-05 19:51] VITALS: BP 137/67; PULSE 87; RESP 16; TEMP 37.2; O2SAT 100
[2024-06-05 20:00] VITALS: BP 132/67; PULSE 86; RESP 15; TEMP 37.2; O2SAT 100
[2024-06-05 20:04] LABS: Bacteria 0 SEEN /hpf (None Seen); Mucous, Urine 0 SEEN /hpf (<or=2+); Squamous Epithelial Cells - UA 0 SEEN /hpf (0-5)
[2024-06-05 20:04] LABS: Lactic Acid 1.5 mmol/L (0.0-2.0)
[2024-06-05 20:05] LABS: ALB/GLOB Ratio 0.9 RATIO (0.9-2.4); AST(SGOT) 27 U/L (<=37); Alanine Aminotransfer ALT/SGPT 22 U/L (<=46); Albumin, Serum 3.6 g/dL (3.4-4.8); Alkaline Phosphatase 64 U/L (40-129); Anion Gap 9 (5-15); BUN 45 mg/dL (4-19); BUN/Creat Ratio 29.8 RATIO (10-20); Calcium 10.2 mg/dL (7.6-11.0); Carbon Dioxide 31.6 mmol/L (22.0-29.0); Chloride 100 mmol/L (96-108); Creatinine, Serum 1.51 mg/dL (0.70-1.20); EST Glomerular Filtration Rate 47 (>60); Estimated Creatinine Clearance 34.94 ml/min; Globulin 4.1 g/dL (2.2-4.2); Glucose 119 mg/dL (70-99); Lipase 33 U/L (13-75); Potassium 4.4 mmol/L (3.3-5.1); Protein, Total 7.7 g/dL (5.9-8.4); Sodium Level 141 mmol/L (133-145); Total Bilirubin 0.46 mg/dL (0.00-1.30)
[2024-06-05 20:06] LABS: Color, Urine Yellow (Yellow); Glucose, Dipstick Normal (Normal); Ketone-Dipstick Negative (Negative); Leukocyte Esterase-Dipstick 100 /ul (Negative); Nitrite-Dipstick Negative (Negative); Occult Blood-Urine 250 /ul (Negative); Protein-Dipstick 100 mg/dl (Negative); Urine Bilirubin Dipstick Negative (Negative); Urine Clarity Sl. Cloudy (Clear); Urine Urobilinogen Normal (Normal)
[2024-06-05 20:18] LABS: Bedside Glucose 112 mg/dL (74-106)
[2024-06-05 20:18] LABS: Red Blood Cells-Urine > 100 SEEN /hpf (0-5); White Blood Cells 5-10 SEEN /hpf (0-5)
[2024-06-05 20:19] LABS: Fine Granular Cast- Urine 0-5 SEEN /lpf (0-5); Hyaline Cast 0-5 SEEN /lpf (0-5)
[2024-06-05 20:24] LABS: Troponin T High Sensitivity 19 ng/L (<=22)
--- NOTE | 2024-06-05 20:34 | RAD_ITS ---
PROCEDURE: CHEST 1 VIEW (PORTABLE) REASON FOR EXAM: 79-year-old male, cough, dizziness. TECHNIQUE: Frontal view of the chest. COMPARISON: Chest radiograph 07/05/2023. FINDINGS: Left port with catheter tip overlying the right atrium and tracheostomy in place. The heart size is normal. Stable emphysema with biapical pleural-parenchymal scarring. No pleural effusion or pneumothorax. Degenerative changes are identified within the thoracic spine. RAD/Chest 1 View (Portable) IMPRESSION: NO SIGNIFICANT CHANGE SINCE THE PRIOR EXAM. Reading Location: [id number]
[2024-06-05 21:00] VITALS: BP 117/61; PULSE 90; RESP 18; TEMP 37.1; O2SAT 100
[2024-06-05 22:00] VITALS: BP 117/74; PULSE 89; RESP 17; TEMP 36.9; O2SAT 100
== END 2024-06-05 22:29 | disposition home or self-care (01) ==
LOC: ED 19:22
PROVIDERS: Emergency Provider Emergency Medicine; PCP Internal Medicine; Visit Provider Emergency Medicine
DX: R53.1 Weakness (principal); Z93.1 Gastrostomy status; J44.9 Chronic obstructive pulmonary disease, unspecified; N18.30 Chronic kidney disease, stage 3 unspecified; N13.2 Hydronephrosis with renal and ureteral calculous obstruction; Z87.891 Personal history of nicotine dependence; R55 Syncope and collapse; R42 Dizziness and giddiness; Z79.01 Long term (current) use of anticoagulants; Z85.118 Personal history of other malignant neoplasm of bronchus and lung
CPT/HCPCS: 31720; 70450; 71045; 74177; 80053; 81001; 82962; 83605; 83690; 84484; 85025; 93005; 96360; 99285; Q9967; A4216

== ENCOUNTER 2024-06-29 10:20 | Day surgery (SDC) | payer MEDICARE, OTHER, SELFPAY ==
--- NOTE | 2024-06-26 11:53 | PAT.ANESEVAL ---
Pre-Assessment Diagnosis/Proposed Procedure Planned Operative Procedure(s): EGD, Replace PEG tube Anesthesia History Anesthesia History - rn clinical resource: Anesthesia History - rn clinical resource Hx Hospitalization No 06/26/24 08:41 Any Problems With Anesthesia No 06/26/24 08:41 Cholinesterase deficiency No 06/26/24 08:41 You/Your Family Experience No 06/26/24 08:41 fever (hyperthermia) with Relationship Recent Exposure to Contagious No 07/08/23 09:45 Disease Does patient have nerve No 06/26/24 08:41 stimulator Patient instructed to have device shut off --Does patient have Pacemaker or ICD? When Was Last Pacemaker Check QUESTION #4 FULL TEXT: You/Your Family Experience fever (hyperthermia) with Anesthesia Last Oral Intake Last Oral intake: Last Oral Intake NPO since Meds taken in AM with sips of water? Meds patient instructed to take am of surgery PONV PONV - rn clinical resource: PONV - rn clinical resource Female No 06/26/24 08:41 HX of Motion Sickness No 06/26/24 08:41 HX of N/V After Surgery No 06/26/24 08:41 Non-Smoker Yes 06/26/24 08:41 Duration of Surgery greater No 06/26/24 08:41 than 60 minutes Number of Risk Factors 1 06/26/24 08:41 PONV Score Low Risk 06/26/24 08:41 Height & Weight Height & Weight: Anesthesia: Height & Weight Height 5 ft 10 in 06/26/24 10:00 Respiratory Assessment Respiratory Assessment - rn clinical resource: Respiratory Tract Infection Hx - rn clinical resource Hx Respiratory Tract Infection No 06/26/24 08:41 STOP Sleep Apnea STOP Sleep Apnea - rn clinical resource: STOP Sleep Apnea - rn clinical resource Hx Hypertension No: hypotension 06/26/24 10:00 Hx Sleep Apnea No 06/26/24 08:41 CPAP No 06/26/24 08:41 BIPAP No 06/26/24 08:41 Do you snore loudly (louder No 06/26/24 08:41 than talking or can be heard Do you often feel tired/ No 06/26/24 08:41 fatigued/ sleepy during daytime? Has anyone observed you stop No 06/26/24 08:41 breathing during sleep? STOP Results Negative 06/26/24 08:41 QUESTION #5 FULL TEXT : Do you snore loudly (louder than talking or can be heard through closed doors)? 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 Specify any problems Hx of Preganancy in last 3 N/A 06/26/24 08:41 Months Nurse Filling Out Transfusion VCHRISTIN 06/26/24 08:41 & Questions: Date: 06/26/24 06/26/24 08:41 Time: 08:42 06/26/24 08:41 Patient unable to answer at this time (ie. confused, unrespo /Reproduction History /Reproductive History - rn clinical resource: /Reproductive Hx- rn clinical resource Hx Now Gestational Age (in weeks): EDC: Hx Hx Para Hx Section SAB No 06/26/24 08:41 [facility] Medical History (Updated 06/26/24 @ 08:40 by Rachel Arias) Thyroid disease Gastric reflux History of echocardiogram History of stress test Cardiology follow-up encounter 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 Prerenal azotemia Acute prerenal azotemia Sepsis Aspiration pneumonia of both lower lobes Cardiomyopathy PAF (paroxysmal atrial fibrillation) Chronic hypotension Acute uremia Acute dehydration Acute and chronic respiratory failure with hypoxia CKD (chronic kidney disease), [facility] ([facility]) use of systemic steroids Pneumonitis Thrush, oral Pneumonia Cancer Ambulates with cane Indwelling urethral catheter present Tracheostomy in place On home oxygen therapy Neuropathy Dysphagia Wears glasses Dietary restriction Former smoker Shortness of breath on exertion tracheotomy and laryngeal biopsy Long-term use of high-risk medication Secondary malignant neoplasm of lung Agranulocytosis secondary to cancer chemotherapy Antineoplastic chemotherapy induced anemia Adverse effect of antineoplastic and immunosuppressive drugs Primary malignant neoplasm of hypopharynx HCAP (healthcare-associated pneumonia) Home Medications ?Medication ?Instructions ?Recorded ?Last Taken ?Type lactose-reduced food with fiber 300 ml G-tube 4X/DAY NUTRITION #0 01/25/23 03/14/23 Rx 0.06 gram-1.5 kcal/mL oral liquid mL (Jevity 1.5 Dipesh) gabapentin 300 mg capsule 300 mg feeding tube BID NERVE PAIN 08/20/23 Unknown Rx #60 caps guaifenesin 100 mg/5 mL oral liquid 100 mg (5 mL) PO Q6H PRN 09/20/23 Unknown Rx congestion #473 mL budesonide 0.5 mg/2 mL suspension 0.5 mg (2 mL) inhalation BID COPD 01/08/24 Unknown Rx for nebulization #120 mL ipratropium bromide 42 mcg (0.06 2 spray intranasal BID PRN allergy 01/08/24 Unknown History %) nasal spray symptoms acetaminophen 325 mg capsule 325 mg PO ONCE PRN pain 01/20/24 Unknown History omeprazole 20 mg delayed 20 mg PO QDAY 01/20/24 Unknown History release,disintegrating tablet lidocaine-prilocaine 2.5 %-2.5 % 1 applic topical ONCE PRN port 02/24/24 Unknown Rx topical cream access 30 days #30 grams apixaban 2.5 mg tablet (Eliquis) 2.5 mg feeding tube BID BLOOD 03/19/24 Unknown Rx THINNER #180 tabs midodrine 5 mg tablet 15 mg (3 x 5 mg) G-tube TID for 04/15/24 Unknown Rx blood pressure 30 days #270 TABLETS levothyroxine 75 mcg tablet 75 mcg G-tube DAILY for disorder 04/17/24 Unknown Rx of thyroid gland #90 TABLETS amiodarone 100 mg tablet 100 mg G-tube DAILY AFIB #90 tabs 05/13/24 Unknown Rx ondansetron HCl 4 mg/5 mL oral 4 mg (5 mL) PO Q8H PRN nausea and 06/05/24 Unknown Rx solution vomiting 7 days #50 mL Allergy/AdvReac Type Severity Reaction Status Date / Time venom-wasp Allergy Anaphylaxis Verified 06/26/24 08:31 nystatin AdvReac Severe Nausea/Vom/ Verified 06/26/24 08:31 Diarrhea pseudoephedrine HCl (From AdvReac Severe Unknown Verified 06/26/24 08:31 Sudafed) albuterol AdvReac Intermediate palpitation Verified 06/26/24 08:31 s Antihistamines - Alkylamine AdvReac Mild Other Verified 06/26/24 08:31 Family History Mother Hypertension Colon cancer Surgical History (Updated 06/26/24 @ 08:40 by Rachel Arias) History of gastrostomy History of tracheostomy S/P TURP S/P percutaneous endoscopic gastrostomy (PEG) tube placement History of surgery Hx of tonsillectomy Social History household members: significant other current occupational status: retired current occupation: worked in [employer] Smoking Status: Former smoker quit date: 04/08/17 pack-years: 55 alcohol intake: former details: never a heavy drinker substance use type: does not use do you feel safe at home: Yes Audit: Pertinent Findings Pertinent Findings Additional pertinent findings: Minimally invasive procedure. Recommendation Anesthesia Recommendation Anesthesia recommendation: OPTIMIZED for anesthesia Follow up Details CBC Recommendation: No
[2024-06-29] VITALS (9 sets, daily range): BP systolic 80–124; BP diastolic 50–60; PULSE 62–77; RESP 16; TEMP 36.3–36.6; O2SAT 98–100; BMI 19.1
--- NOTE | 2024-06-29 10:42 | HP.PCM_ITS ---
HPI - General General Date of Admission: 06/29/24 Date of Service: 06/29/24 Chief Complaint: frequent aspiration pneumonia HPI Narrative Details: SERENITY ESTRADA, is a 78 M who presents for exchange of peg tube to a G-J tube *[facility] established 02.12.24 pt presents with hx of cancer, GERD, dysphagia. 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 Pt has tracheostomy and PEG. Pt has no PO intake. He has a chronic cough and exertional dyspnea continue, on 3 L supplemental O2 and increases to 5 L during times of activity. Pt's SO reports that pt has been getting IV fluids M and F for the past 9 years, but due to the IV fluid shortage has been unable to get this. Pt's SO has tried giving the fluid through the PEG tube with feeds, but pt aspirates. Pt and SO are looking for suggestions on how pt can get the fluid without aspirating. He has had multiple episodes of aspiration pneumonia. He has had worsening weight loss, fatigue and dehydration secondary to the IV fluids shortage. November 13, 2023 CT C/A with contrast Bibasilar atelectasis and pneumonia, decreased from prior, mild left pleural effusion, also decreased from prior. No significant interval change in mild mediastinal lymphadenopathy, no evidence for metastatic disease in the abdomen, hepatic and renal cysts. Nonobstructing renal calculi. OV 11 pt presents to discuss tubing options. [facility], [facility] Medical History Thyroid disease Gastric reflux History of echocardiogram History of stress test Cardiology follow-up encounter 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 Prerenal azotemia Acute prerenal azotemia Sepsis Aspiration pneumonia of both lower lobes Cardiomyopathy PAF (paroxysmal atrial fibrillation) Chronic hypotension Acute uremia Acute dehydration Acute and chronic respiratory failure with hypoxia CKD (chronic kidney disease), stage III [facility] (current) use of systemic steroids Pneumonitis Thrush, oral Pneumonia Cancer Ambulates with cane Indwelling urethral catheter present Tracheostomy in place On home oxygen therapy Neuropathy Dysphagia Wears glasses Dietary restriction Former smoker Shortness of breath on exertion tracheotomy and laryngeal biopsy Long-term use of high-risk medication Secondary malignant neoplasm of lung Agranulocytosis secondary to cancer chemotherapy Antineoplastic chemotherapy induced anemia Adverse effect of antineoplastic and immunosuppressive drugs Primary malignant neoplasm of hypopharynx HCAP (healthcare-associated pneumonia) Home Medications ?Medication ?Instructions ?Recorded ?Last Taken ?Type lactose-reduced food with fiber 300 ml G-tube 4X/DAY N UTRITION #0 01/25/23 03/14/23 Rx 0.06 gram-1.5 kcal/mL oral liquid mL (Jevity 1.5 Dipesh) gabapentin 300 mg capsule 300 mg feeding tube BID NERV E PAIN 08/20/23 Unknown Rx #60 caps guaifenesin 100 mg/5 mL oral liquid 100 mg (5 mL) PO Q 6H PRN 09/20/23 Unknown Rx congestion #473 mL budesonide 0.5 mg/2 mL suspension 0.5 mg (2 mL) inhala tion BID COPD 01/08/24 Unknown Rx for nebulization #120 mL ipratropium bromide 42 mcg (0.06 2 spray intranasal BI D PRN allergy 01/08/24 Unknown History %) nasal spray symptoms acetaminophen 325 mg capsule 325 mg PO ONCE PRN pain 1 Unknown History omeprazole 20 mg delayed 20 mg PO QDAY 01/20/24 Unkno wn History release,disintegrating tablet lidocaine-prilocaine 2.5 %-2.5 % 1 applic topical ONCE PRN port 02/24/24 Unknown Rx topical cream access 30 days #30 grams apixaban 2.5 mg tablet (Eliquis) 2.5 mg feeding tube B ID BLOOD 03/19/24 Unknown Rx THINNER #180 tabs midodrine 5 mg tablet 15 mg (3 x 5 mg) G-tube TID for 04/15/24 Unknown Rx blood pressure 30 days #270 TABLETS levothyroxine 75 mcg tablet 75 mcg G-tube DAILY for di sorder 04/17/24 Unknown Rx of thyroid gland #90 TABLETS amiodarone 100 mg tablet 100 mg G-tube DAILY AFIB #90 tabs 05/13/24 Unknown Rx ondansetron HCl 4 mg/5 mL oral 4 mg (5 mL) PO Q8H PRN nausea and 06/05/24 Unknown Rx solution vomiting 7 days #50 mL Allergy/AdvReac Type Severity Reaction Status Date / Time venom-wasp Allergy Anaphylaxis Verified 06/26/24 08:31 nystatin AdvReac Severe Nausea/Vom/ Verified 06/26/24 08:31 Diarrhea pseudoephedrine HCl (From AdvReac Severe Unknown Verified 06/26/24 08:31 Sudafed) albuterol AdvReac Intermediate palpitation Verified 06/26/24 08:31 s Antihistamines - Alkylamine AdvReac Mild Other Verified 06/26/24 08:31 Family History Mother Hypertension Colon cancer Surgical History History of gastrostomy History of tracheostomy S/P TURP S/P percutaneous endoscopic gastrostomy (PEG) tube placement History of surgery Hx of tonsillectomy Social History household members: significant other current occupational status: retired current occupation: worked in [employer] Smoking Status: Former smoker quit date: 04/08/17 pack-years: 55 alcohol intake: former details: never a heavy drinker substance use type: does not use do you feel safe at home: Yes ROS Constitutional Constitutional: Denies fatigue, fever(s), poor appetite, weight gain or weight loss Gastrointestinal Gastrointestinal: Denies belching, bloating, change in bowel habits, change in stool character, chewing difficulty, coffee ground emesis, constipation, cramping, diarrhea, dyspepsia, dysphagia, early satiety, excessive flatus, fecal incontinence, heartburn, hematemesis, hematochezia, hemorrhoids, loose stools, melena, nausea, odynophagia, rectal bleeding, tenesmus, vomiting or weight changes Physical Exam Const alert, oriented x3, no apparent distress and healthy appearing General Appearance: cooperative GI normal to inspection, nondistended, normoactive bowel sounds, soft to palpation, non-tender and non-distended Percussion: normal to percussion Rectal Exam: deferred Assessment & Plan Assessment/Plan (1) Severe malnutrition: PLAN: Assessment and Plan Assessment and Plan (1) Severe malnutrition: Status: Acute Plan: 78-year-old with multiple comorbidities including atrial fibrillation on anticoagulation and amiodarone, history of hypopharynx cancer status post laryngectomy with tracheostomy and PEG tube placement. He has been getting IV fluids for dehydration. Unfortunately because of a nationwide shortage of IV fluids he cannot get that. If he gives a lot of fluids through his PEG tube be cause of the location of it in the cardia of the stomach he will get fluid flowing retrograde through hiatal hernia into his esophagus and subsequently into his lungs. I think he subsequently gets aspiration from his secretions on a daily basis which causes his chronic cough. I talked to her about putting a GJ tube in and she said that she would think about getting the GJ tube placed. That is the best option that I can see for him at this time. We discussed possibly putting a stent in his upper esophagus for his secretions. However I would need to assess his anatomy prior to any possible stenting of the cricopharyngeus or upper esophageal sphincter. Plan They decide on the [email or web address] [id number] - DIEGO-DAY Gastric-Jejunal Feeding Tube Kit Extension Sets - 18 Fr, 6.0 cm
[2024-06-29] MEDS: 0.9 % NaCl (Sterile) Posiflush 10 mL IV (11:36)
--- NOTE | 2024-06-29 11:53 | PCM.PRE.AN2 ---
ASA Classification* ASA Classification ASA Classification: 4 Assessment & Plan Anesthesia* Anesthesia Assessment Anesthesia Assessment: Discussed sedation and/or anesthesia options, risks, benefits, and alternatives with patient/parents/legal guardian/POA. Questions invited. The patient/parents/legal guardian/POA seems to understand and agrees to proceed with anesthesia plan. Reviewed the physical assessment, medical history, allergy history and patient home medications list prior to surgery/procedure/anesthetic and documented any changes. Performed airway and anesthesia risk assessments. Anesthesia Type Anesthesia Type: MAC History Source History Obtained from:: Patient and Chart Anesthesia Focused Assessment* Temperature: 97.9 F Pulse Rate: 70 Blood Pressure: 124/58 Respiratory Rate: 16 Pulse Ox: 100 Oxygen Delivery Method: Trach Collar Oxygen Flow Rate (L/min): 3 Airway Assessment Mouth opens: 2 cm Mallampati Score: IV Teeth Condition: Missing (Patient is edentulous.) Neck Range of motion (ROM): Limited ROM (Extremely limited.) Comment: Patient has trach in place. Focused Labs Anesthesia Preop lab: CBC WBC 8.5 K/mm3 (4.4-11.0) 06/05/24 19:15 06/05/24 RBC 2.93 M/mm3 (4.6-6.2) L 06/05/24 19:15 06/05/24 Hgb 9.6 g/dL (13.0-16.5) L 06/05/24 19:15 06/05/24 Hct 31.0 % (40-54) L 06/05/24 19:15 06/05/24 Plt Count 106 K/mm3 (150-450) L 06/05/24 19:15 06/05/24 CHEMISTRY Potassium 4.4 mmol/L (3.3-5.1) 06/05/24 19:15 06/05/24 Sodium 141 mmol/L (133-145) 06/05/24 19:15 06/05/24 Magnesium 2.1 mg/dL (1.6-2.6) 07/09/23 05:50 07/09/23 Phosphorus 3.2 mg/dL (2.5-4.9) 07/09/23 05:50 07/09/23 BUN 45 mg/dL (4-19) H 06/05/24 19:15 06/05/24 Creatinine 1.51 mg/dL (0.70-1.20) H 06/05/24 19:15 06/05/24 Glucose 119 mg/dL (70-99) H 06/05/24 19:15 06/05/24 POC Glucose 112 mg/dL (74-106) H 06/05/24 19:57 06/05/24 TSH 2.740 uIU/mL (0.358-3.740) 05/18/24 10:44 05/18/24 COAG PT 14.5 SECONDS (11.7-14.9) 07/09/23 05:50 07/09/23 Pre-Assessment Diagnosis/Proposed Procedure Planned Operative Procedure(s): EGD, Replace PEG tube Anesthesia History Anesthesia History - annual campaign manager: Anesthesia History - annual campaign manager Hx Hospitalization No 06/26/24 08:41 Any Problems With Anesthesia patient had urinary retention after a prolonged anesthetic for port placement. 06/26/24 08:41 Cholinesterase deficiency No 06/26/24 08:41 You/Your Family Experience No 06/26/24 08:41 fever (hyperthermia) with Relationship Recent Exposure to Contagious No 06/29/24 11:11 Disease Does patient have nerve No 06/26/24 08:41 stimulator Patient instructed to have device shut off --Does patient have Pacemaker No 06/29/24 11:16 or ICD? When Was Last Pacemaker Check QUESTION #4 FULL TEXT: You/Your Family Experience fever (hyperthermia) with Anesthesia Last Oral Intake Last Oral intake: Last Oral Intake NPO since 22:00 06/29/24 11:16 Meds taken in AM with sips of Yes 06/29/24 11:16 water? Meds patient instructed to take am of surgery PONV PONV - annual campaign manager: PONV - annual campaign manager Female No 06/26/24 08:41 HX of Motion Sickness No 06/26/24 08:41 HX of N/V After Surgery No 06/26/24 08:41 Non-Smoker Yes 06/26/24 08:41 Duration of Surgery greater No 06/26/24 08:41 than 60 minutes Number of Risk Factors 1 06/26/24 08:41 PONV Score Low Risk 06/26/24 08:41 Height & Weight Height & Weight: Anesthesia: Height & Weight Height 5 ft 10 in 06/29/24 11:16 Weight: 60.509 kg 06/29/24 11:16 Body Mass Index (BMI) 19.1 06/29/24 11:16 Respiratory Assessment Respiratory Assessment - annual campaign manager: Respiratory Tract Infection Hx - annual campaign manager Hx Respiratory Tract Infection No 06/26/24 08:41 STOP Sleep Apnea STOP Sleep Apnea - annual campaign manager: STOP Sleep Apnea - annual campaign manager Hx Hypertension No: hypotension 06/26/24 10:00 Hx Sleep Apnea No 06/26/24 08:41 CPAP No 06/26/24 08:41 BIPAP No 06/26/24 08:41 Do you snore loudly (louder No 06/26/24 08:41 than talking or can be heard Do you often feel tired/ No 06/26/24 08:41 fatigued/ sleepy during daytime? Has anyone observed you stop No 06/26/24 08:41 breathing during sleep? STOP Results Negative 06/26/24 08:41 QUESTION #5 FULL TEXT : Do you snore loudly (louder than talking or can be heard through closed doors)? Tobacco Use History Tobacco Use History - annual campaign manager: Tobacco Use History - annual campaign manager Tobacco Use Smoking Status Former smoker 06/26/24 08:41 Hx Tobacco Use No: quit smoking 2 years ago 06/26/24 08:41 Years Smoking Packs Smoked per Day Smoking Cessation Date was Yes - quit smoking within 15 06/26/24 08:41 within the last 15 years years Hx Smoking Cessation Date 02/10/22 06/26/24 08:41 Hx Smoking Cessation Yes 06/26/24 08:41 Counseling Hematologic Medial History Hematologic Hx - annual campaign manager: Hematologic Medical Hx - healthcare manager Hx of Blood Transfusion No 06/26/24 08:41 Hx of Transfusion in last 3 No 06/26/24 08:41 Months Date of Last Transfusion (if within last 3 months) Ever experience any problems No 06/26/24 08:41 with transfusion(s)? Specify any problems Hx of Preganancy in last 3 N/A 06/26/24 08:41 Months Nurse Filling Out Transfusion VCHRISTIN 06/26/24 08:41 & Questions: Date: 06/26/24 06/26/24 08:41 Time: 08:42 06/26/24 08:41 Patient unable to answer at this time (ie. confused, unrespo /Reproduction History /Reproductive History - annual campaign manager: /Reproductive Hx- annual campaign manager Hx Now Gestational Age (in weeks): EDC: Hx Hx Para Hx Section SAB No 06/26/24 08:41 Active Medications Active Medications: Current Medications Generic Name Dose Route Start Last Admin Trade Name Freq PRN Reason Stop Dose Admin Sodium Chloride 10 - 40 ml 06/29/24 11:35 0.9% Saline Lock 10 Ml Syringe IV UD PRN Port-a-Cath (VAD)/R Port Flush Sodium Chloride 10 - 40 ml 06/29/24 11:35 06/29/24 11:36 0.9 % Nacl (Sterile) Posiflush 10 Ml IV 10 ml UD PRN Administration Port access or dressing change [facility] Medical History Thyroid disease Gastric reflux History of echocardiogram History of stress test Cardiology follow-up encounter 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 Prerenal azotemia Acute prerenal azotemia Sepsis Aspiration pneumonia of both lower lobes Cardiomyopathy PAF (paroxysmal atrial fibrillation) Chronic hypotension Acute uremia Acute dehydration Acute and chronic respiratory failure with hypoxia CKD (chronic kidney disease), stage III USP (current) use of systemic steroids Pneumonitis Thrush, oral Pneumonia Cancer Ambulates with cane Indwelling urethral catheter present Tracheostomy in place On home oxygen therapy Neuropathy Dysphagia Wears glasses Dietary restriction Former smoker Shortness of breath on exertion tracheotomy and laryngeal biopsy Long-term use of high-risk medication Secondary malignant neoplasm of lung Agranulocytosis secondary to cancer chemotherapy Antineoplastic chemotherapy induced anemia Adverse effect of antineoplastic and immunosuppressive drugs Primary malignant neoplasm of hypopharynx HCAP (healthcare-associated pneumonia) Home Medications ?Medication ?Instructions ?Recorded ?Last Taken ?Type lactose-reduced food with fiber 300 ml G-tube 4X/DAY NUTRITION #0 01/25/23 03/14/23 Rx 0.06 gram-1.5 kcal/mL oral liquid mL (Jevity 1.5 Dipesh) gabapentin 300 mg capsule 300 mg feeding tube BID NERVE PAIN 08/20/23 06/29/24 09:00 Rx #60 caps guaifenesin 100 mg/5 mL oral liquid 100 mg (5 mL) PO Q6H PRN 09/20/23 06/29/24 07:00 Rx congestion #473 mL budesonide 0.5 mg/2 mL suspension 0.5 mg (2 mL) inhalation BID COPD 01/08/24 06/29/24 08:00 Rx for nebulization #120 mL ipratropium bromide 42 mcg (0.06 2 spray intranasal BID PRN allergy 01/08/24 Unknown History %) nasal spray symptoms acetaminophen 325 mg capsule 325 mg PO ONCE PRN pain 01/20/24 Unknown History omeprazole 20 mg delayed 20 mg PO QDAY 01/20/24 06/29/24 07:00 History release,disintegrating tablet lidocaine-prilocaine 2.5 %-2.5 % 1 applic topical ONCE PRN port 02/24/24 Unknown Rx topical cream access 30 days #30 grams apixaban 2.5 mg tablet (Eliquis) 2.5 mg feeding tube BID BLOOD 03/19/24 06/26/24 Rx THINNER #180 tabs midodrine 5 mg tablet 15 mg (3 x 5 mg) G-tube TID for 04/15/24 06/29/24 08:00 Rx blood pressure 30 days #270 TABLETS levothyroxine 75 mcg tablet 75 mcg G-tube DAILY for disorder 04/17/24 06/29/24 06:00 Rx of thyroid gland #90 TABLETS amiodarone 100 mg tablet 100 mg G-tube DAILY AFIB #90 tabs 05/13/24 06/29/24 07:00 Rx ondansetron HCl 4 mg/5 mL oral 4 mg (5 mL) PO Q8H PRN nausea and 06/05/24 Unknown Rx solution vomiting 7 days #50 mL Allergy/AdvReac Type Severity Reaction Status Date / Time venom-wasp Allergy Anaphylaxis Verified 06/29/24 11:06 nystatin AdvReac Severe Nausea/Vom/ Verified 06/29/24 11:06 Diarrhea pseudoephedrine HCl (From AdvReac Severe Unknown Verified 06/29/24 11:06 Sudafed) albuterol AdvReac Intermediate palpitation Verified 06/29/24 11:06 s Antihistamines - Alkylamine AdvReac Mild Other Verified 06/29/24 11:06 Family History Mother Hypertension Colon cancer Surgical History (Updated 06/29/24 @ 12:[address] Heriberto Marin MD) History of gastrostomy History of tracheostomy S/P TURP S/P percutaneous endoscopic gastrostomy (PEG) tube placement History of surgery Hx of tonsillectomy Social History household members: significant other current occupational status: retired current occupation: worked in [employer] Smoking Status: Former smoker quit date: 04/08/17 pack-years: 55 alcohol intake: former details: never a heavy drinker substance use type: does not use do you feel safe at home: Yes Review of Systems (Anesthesia) ROS Narrative System reviewed and no additional complaints, except as documented.
--- NOTE | 2024-06-29 12:57 | OP.CCLET_ITS ---
06/29/2024 Gloria Mora Md Re : Upper GI endoscopy procedure for Semaj Dumont [place] This procedure was performed on Saturday, June 29, 2024. My impressions and recommendations are as follows: Impressions : - Surgically absent larynx. - No gross lesions in the entire esophagus. - Eroding gastrostomy tube present. - No gross lesions in the entire stomach. - No gross lesions in the fourth portion of the duodenum. - The PEG was removed under endoscopic vision because it developed complications. - An externally removable PEG-J placement was successfully completed. - No specimens collected. Recommendations : - Discharge patient to home. - Resume previous diet. - Continue present medications. My findings are described in the full procedure note, which is enclosed. If I can be of further assistance, please feel free to contact me at . Sincerely, Cheikh Price, 06/29/2024 12:57:13 PM This report has been signed electronically.
--- NOTE | 2024-06-29 12:57 | OP.EGD_ITS ---
Patient Name: Semaj Dumont Procedure Date: 06/29/2024 11:51 AM Date of : 1945 Age: 79 Procedure: Upper GI endoscopy Indications: Place PEG-J because patient is unable to eat Providers: Cheikh Price DO Referring MD: Cheikh Price DO Medicines: Monitored Anesthesia Care Patient Profile: This is a 79 year old male. Refer to note in patient chart for documentation of history and physical. Patient has symptoms of dysphagia with both liquids and solids. Complications: No immediate complications. Procedure: Pre-Anesthesia Assessment: - Prior to the procedure, a History and Physical was performed, and patient medications and allergies were reviewed. The patient is competent. The risks and benefits of the procedure and the sedation options and risks were discussed with the patient. All questions were answered and informed consent was obtained. Patient identification and proposed procedure were verified by the physician in the pre-procedure area. Mental Status Examination: alert and oriented. Airway Examination: normal oropharyngeal airway and neck mobility. Respiratory Examination: clear to auscultation. CV Examination: normal. Prophylactic Antibiotics: The patient does not require prophylactic antibiotics. Prior Anticoagulants: The patient has taken no anticoagulant or antiplatelet agents except for NSAID medication. ASA Grade Assessment: II - A patient with mild systemic disease. After reviewing the risks and benefits, the patient was deemed in satisfactory condition to undergo the procedure. The anesthesia plan was to use monitored anesthesia care (MAC). Immediately prior to administration of medications, the patient was re-assessed for adequacy to receive sedatives. The heart rate, respiratory rate, oxygen saturations, blood pressure, adequacy of pulmonary ventilation, and response to care were monitored throughout the procedure. The physical status of the patient was re-assessed after the procedure. After obtaining informed consent, the endoscope was passed under direct vision. Throughout the procedure, the patient's blood pressure, pulse, and oxygen saturations were monitored continuously. The Endoscope was introduced through the mouth, and advanced to the fourth part of the duodenum. Small bowel enteroscopy was deemed necessary. The upper GI endoscopy was accomplished without difficulty. The patient tolerated the procedure well. Scope In: 12:24:19 PM Scope Out: 12:50:05 PM Total Procedure Duration Time 0 hours 25 minutes 46 seconds Findings: The larynx was surgically absent. No gross lesions were noted in the entire esophagus. There was evidence of an eroding gastrostomy tube present in the gastric body. The PEG required removal because it developed complications. The PEG was removed under endoscopic vision. Removal was easily accomplished. No gross lesions were noted in the entire examined stomach. The patient was placed in the supine position for PEG placement. The stomach was insufflated to appose gastric and abdominal whitfield. The abdominal wall was marked and prepped in a sterile manner. The externally removable 22 Fr Avanos DIEGO-DAY Low-profile PEG-J gastrostomy tube was placed by a step dilation technique and the external bumper attached to the G-tube. The final position of the gastrostomy tube was confirmed by relook endoscopy, the distal tip was secured to the bowel wall with a clip, and skin marking noted to be 4 cm at the external bumper. The final tension and compression of the abdominal wall by the PEG tube and external bumper were checked and revealed that the PEG balloon was loose and lightly touching the stomach. A jejunal tube was then passed through the gastric tube and advanced over a wire, which had been placed endoscopically to the jejunum. Appropriate position of the tip of the tube was confirmed endoscopically and then secured to the bowel wall with a clip. The feeding tube was capped and the tube site was cleaned and dressed. No gross lesions were noted in the fourth portion of the duodenum. Impression: - Surgically absent larynx. - No gross lesions in the entire esophagus. - Eroding gastrostomy tube present. - No gross lesions in the entire stomach. - No gross lesions in the fourth portion of the duodenum. - The PEG was removed under endoscopic vision because it developed complications. - An externally removable PEG-J placement was successfully completed. - No specimens collected. Recommendation: - Discharge patient to home. - Resume previous diet. - Continue present medications. Procedure Code(s): --- Professional --- 28487, Esophagogastroduodenoscopy, flexible, transoral; with directed placement of percutaneous gastrostomy tube 75418, 59,51, Small intestinal endoscopy, enteroscopy beyond second portion of duodenum, not including ileum; with conversion of percutaneous gastrostomy tube to percutaneous jejunostomy tube CPT copyright 2021 [employer]. All rights reserved. The codes documented in this report are preliminary and upon accounting professor review may be revised to meet current compliance requirements. Cheikh Price DO 06/29/2024 12:57:13 PM This report has been signed electronically. Number of Addenda: 0 Note Initiated On: 06/29/2024 11:51 AM
--- NOTE | 2024-06-29 12:58 | PCM.POST.ANE ---
Anesthesia: Postop Eval I Current Vital Signs Temperature: 97.7 F Pulse Rate: 66 Blood Pressure: 89/50 Respiratory Rate: 16 Pulse Ox: 100 Oxygen Delivery Method: Trach Collar Oxygen Flow Rate (L/min): 3 Assessment Airway patent: Yes Spontaneous unlabored respirations: Yes Mental status: Asleep nausea: No Vomiting: No Anesthesia Complication: No Fluid Hydration Crystalloid volume administer (ml): 55 Total IV fluid infused: 55 Progress Note Anesthesia document: Postop Eval 1 completed: Yes
[2024-06-29] MEDS: 0.9% Saline Lock 10 ML Syringe IV (13:45)
--- NOTE | 2024-06-29 14:02 | PCM.POSTANE2 ---
Anesthesia Postop Eval I Sum Postop Eval Completion status Anesthesia document: Postop Eval 1 completed: Yes Anesthesia Postop Eval I Summary Anesthesia Postop Eval I Summary: Anesthesia Postop Eval I: Assessment Summary Airway patent Yes 06/29/24 12:59 [email or web address] Spontaneous unlabored Yes 06/29/24 12:59 [email or web address] respirations Mental status Asleep 06/29/24 12:59 [email or web address] nausea No 06/29/24 12:59 [email or web address] Vomiting No 06/29/24 12:59 [email or web address] Anesthesia Postop Eval I: Fluid Summary Crystalloid volume administer 55 06/29/24 12:59 [email or web address] (ml) Colloids volume administered ( ml) Blood Product volume administered (ml) Total IV fluid infused 55 06/29/24 12:59 [email or web address] Anesthesia Postop Eval I: Summary Notes Anesthesia Complication No 06/29/24 12:59 [email or web address] Anesthesia Complication Comment: Post-operative progress note Anesthesia: Postop Eval II Evaluation Mental status: Awake Pain Level: 0 nausea: No Vomiting: No
== END 2024-06-29 14:07 | disposition home or self-care (01) ==
LOC: EN 10:21 → AC 10:23
PROVIDERS: PCP Internal Medicine; Referring Provider Internal Medicine; Visit Provider Internal Medicine Gastroenterology
PROC: 0DJ08ZZ Inspection of Upper Intestinal Tract, Via Natural or Artificial Opening Endoscopic (ICD-10-PCS; CPT 43235; principal; 2024-06-29 11:25)
DX: E43 Unspecified severe protein-calorie malnutrition (principal); K94.29 Other complications of gastrostomy; I48.91 Unspecified atrial fibrillation; N18.30 Chronic kidney disease, stage 3 unspecified; K21.9 Gastro-esophageal reflux disease without esophagitis; R13.10 Dysphagia, unspecified; Z90.02 Acquired absence of larynx; Z80.0 Family history of malignant neoplasm of digestive organs; Z79.51 Long term (current) use of inhaled steroids; Z87.891 Personal history of nicotine dependence; Z79.01 Long term (current) use of anticoagulants; E86.0 Dehydration; Z85.818 Personal history of malignant neoplasm of other sites of lip, oral cavity, and pharynx
CPT/HCPCS: 43246; A4216; J2405

== ENCOUNTER 2024-07-03 14:00 | Outpatient (RCR) | payer MEDICARE, OTHER, SELFPAY ==
--- NOTE | 2024-07-06 16:24 | NS ---
07/06/24: ZACHARIAH backlined Dr. Price to confirm that pt should only be putting medications through the gastrostomy port of his PEG-J and that enteral formula should be put through the jejunostomy port. Awaiting response. ZACHARIAH also called [facility] nurse and left a voicemail asking to have recent order that they sent to [facility] faxed to this RDN. ZACHARIAH wants to confirm that pt has order to [facility] for En-Fit syringes and replacement extensions for his PEG-J tube. Yoon Shin RDN, LD
== END 2024-07-06 23:59 ==
LOC: NS 14:00
PROVIDERS: PCP Internal Medicine; Visit Provider Internal Medicine Medical Oncology
DX: Z71.3 Dietary counseling and surveillance (principal); N18.4 Chronic kidney disease, stage 4 (severe); C78.02 Secondary malignant neoplasm of left lung; Z93.1 Gastrostomy status; E43 Unspecified severe protein-calorie malnutrition
CPT/HCPCS: 97803

== ENCOUNTER → 2024-07-13 | Outpatient (CLI) | payer MEDICARE, OTHER, SELFPAY ==
[2024-07-13 14:25] LABS: Mucous, Urine 0 SEEN /hpf (<or=2+); Squamous Epithelial Cells - UA 0 SEEN /hpf (0-5)
[2024-07-13 15:52] LABS: Color, Urine Yellow (Yellow); Glucose, Dipstick Normal (Normal); Ketone-Dipstick Negative (Negative); Leukocyte Esterase-Dipstick 100 /ul (Negative); Nitrite-Dipstick Negative (Negative); Occult Blood-Urine 250 /ul (Negative); Protein-Dipstick 100 mg/dl (Negative); Urine Bilirubin Dipstick Negative (Negative); Urine Clarity Sl. Cloudy (Clear); Urine Urobilinogen Normal (Normal)
[2024-07-13 15:56] LABS: Absolute Lymphocyte Count 1.59 X10^3/uL (0.83-4.51); Absolute Neutrophil Count 2.9 X10^3/uL (2.0-7.7); Basophil# 0.07 X10^3/uL; Basophil% 1.3 % (0-1); Eosinophil# 0.19 X10^3/uL; Eosinophils% 3.5 % (0-5); Hematocrit 34.2 % (40-54); Hemoglobin 10.6 g/dL (13.0-16.5); Lymphocyte # 1.59 X10^3/ul (0.83-4.51); Lymphocyte % 29.4 % (19-41); Mean Corpuscular Hgb 33.3 pg (27.0-32.0); Mean Corpuscular Volume 107.5 fL (80-94); Mean Platelet Vol. 15.1 fl (6.2-12.0); Monocyte% 12.9 % (0-10); NRBC Flagged by Analyzer 0 % (0-5); Neutrophil # 2.85 X10^3/uL (2.7-7.7); Neutrophil % 52.7 % (47-70); Platelet Count 134 K/mm3 (150-450); RBC Distribution Width CV 13.4 % (11.6-14.6); Red Blood Count 3.18 M/mm3 (4.6-6.2); White Blood Count 5.4 K/mm3 (4.4-11.0)
[2024-07-13 16:47] LABS: Bacteria RARE /hpf (None Seen); Red Blood Cells-Urine > 100 SEEN /hpf (0-5); White Blood Cells 5-10 SEEN /hpf (0-5)
[2024-07-13 17:16] LABS: ALB/GLOB Ratio 0.9 RATIO (0.9-2.4); AST(SGOT) 26 U/L (<=37); Alanine Aminotransfer ALT/SGPT 24 U/L (<=46); Albumin, Serum 3.7 g/dL (3.4-4.8); Alkaline Phosphatase 67 U/L (40-129); Anion Gap 10 (5-15); BUN 48 mg/dL (4-19); BUN/Creat Ratio 31.4 RATIO (10-20); Calcium,Total 10.4 mg/dL (7.6-11.0); Carbon Dioxide 31.2 mmol/L (21.0-32.0); Chloride 100 mmol/L (98-108); Creatinine, Serum 1.53 mg/dL (0.70-1.20); EST Glomerular Filtration Rate 47 (>60); Globulin 4.2 g/dL (2.2-4.2); Glucose 92 mg/dL (70-99); Protein, Total 7.9 g/dL (5.9-8.4); Sodium Level 142 mmol/L (133-145); Total Bilirubin 0.34 mg/dL (0.00-1.30)
== END | disposition home or self-care (01) ==
LOC: BIMLAB 14:03
PROVIDERS: PCP Internal Medicine; Referring Provider Internal Medicine; Visit Provider Internal Medicine
DX: R31.9 Hematuria, unspecified (principal); K21.9 Gastro-esophageal reflux disease without esophagitis; Z85.21 Personal history of malignant neoplasm of larynx
CPT/HCPCS: 36415; 80053; 81001; 85025; 87086

== ENCOUNTER 2024-07-15 13:13 | Outpatient (RCR) | payer MEDICARE, OTHER, SELFPAY ==
--- NOTE | 2024-07-15 14:35 | NS ---
07/15/24: ANJELN called and spoke with Dr. Price this morning. ANJELN confirmed that pt should be putting enteral nutrition formula through the J port of his feeding tube. ANJELN let Dr. Price know that this RDN will fill out an order form for [employer] feeding tube pump and fax to his outpatient office for him to sign. Once signed order is faxed back to this RDN, will fax this along with pt information to [facility] (F: ). RDN tried calling Semaj to provide update but no one answered phone and pt's voicemail is currently full. Will attempt to call 07/16/24.
--- NOTE | 2024-07-16 14:50 | NS ---
07/16/24: ZACHARIAH called pt and spoke with s/o Christiane. ZACHARIAH let Christiane know that an order for Semaj's feeding tube pump has been filled out and was faxed to Dr. Price's office on 07/15. ZACHARIAH is waiting to get the fax back to send to [facility]. She confirms underdstanding. She reports they received a call from [facility] yesterday that they have an order for pt's feeding tube extension set but [facility] didn't know what size the tube is and so Chirstiane referred them to Dr. Price's office for that information. Yoon Shin RDN, LD
--- NOTE | 2024-07-21 15:19 | NS ---
07/21/24: ZACHARIAH called gastroenterology nurse regarding tube feeding pump order that was faxed on 07/15/24. States they will look for the order and call back if they can't find it. Yoon Shin RDN, LD
--- NOTE | 2024-07-22 15:42 | NS ---
07/22/24: ZACHARIAH received call from Claudia in gastroenterology. She reports Pt's SO Christiane is on the phone asking about feeding tube extention set for Semaj. ZACHARIAH explained that an order for this and the pt's feeding tube pump was faxed to gastroenterology ([phone]) on 07/15/24 and ZACHARIAH has been waiting for signed order to be faxed back. ZACHARIAH refaxed order to gastroenterology at 15:07 on 07/22/2024. Claudia states she will get order signed by Dr. Price today. ZACHARIAH noted new document was scanned in by [facility] and it appears that and order for the extension set was already faxed to [facility] by their office last week. Once signed order is obtained, ZACHARIAH will fax to [facility] and delfino as urgent. ZACHARIAH will then set up an appointment with pt and SO Christiane for EN pump education and recommendations. Yoon Shin RDN, LD
--- NOTE | 2024-07-23 15:10 | NS ---
07/23/24: This RDN went to Gastroenterology office to ask about signed order for [facility] for his feeding tube pump. They didn't know about pt's order and reported that Malena was not in the office today. RDN called and left a voicemail for gastroenterology nurses regarding order and asked for this signed order to be faxed back to [phone]. Yoon Shin RDN, LD
--- NOTE | 2024-07-28 14:47 | NS ---
Addendum entered and electronically signed by Yoon Shin 07/29/24 08:17: Christiane called RDN back. States she did find feeding tube size information on [employer] G-J tube. Reports gastric size says 2.5cm and J-tube says 22Fr. Yoon Shin RDN, EMELINA Original Note: 07/28/24: Order for feeding tube pump was faxed to [facility] on 07/27/24. ZACHARIAH called significant other Christiane and let her know that the order was faxed to [facility] yesterday. Asked that Christiane call this RDN at [phone] when she receives the feeding tube pump so that we can set up a time to meet and discuss recommendations for the feeding tube pump. She confirms understanding. Yoon Shin RDN, LD
== END 2024-08-05 23:59 ==
LOC: NS 13:13
PROVIDERS: PCP Internal Medicine; Visit Provider Internal Medicine Medical Oncology
DX: Z71.3 Dietary counseling and surveillance (principal); N18.4 Chronic kidney disease, stage 4 (severe); C78.02 Secondary malignant neoplasm of left lung; E43 Unspecified severe protein-calorie malnutrition; Z93.1 Gastrostomy status

== ENCOUNTER → 2024-07-16 | Outpatient (CLI) | payer MEDICARE, OTHER, SELFPAY | END | disposition home or self-care (01) | LOC: LABSPEC 13:20 | PROVIDERS: PCP Internal Medicine; Referring Provider Internal Medicine; Visit Provider Internal Medicine | DX: R82.90 Unspecified abnormal findings in urine (principal) | CPT/HCPCS: 87086 ==

== ENCOUNTER → 2024-08-12 | Outpatient (CLI) | payer MEDICARE, OTHER, SELFPAY ==
[2024-08-12 15:58] LABS: Mucous, Urine 0 SEEN /hpf (<or=2+); Squamous Epithelial Cells - UA 0 SEEN /hpf (0-5)
[2024-08-12 18:07] LABS: Color, Urine Yellow (Yellow); Glucose, Dipstick Normal (Normal); Ketone-Dipstick Negative (Negative); Leukocyte Esterase-Dipstick 100 /ul (Negative); Nitrite-Dipstick Negative (Negative); Occult Blood-Urine 250 /ul (Negative); Protein-Dipstick 100 mg/dl (Negative); Urine Bilirubin Dipstick Negative (Negative); Urine Clarity Cloudy (Clear); Urine Urobilinogen Normal (Normal)
[2024-08-12 18:27] LABS: Bacteria 1+ /hpf (None Seen); Red Blood Cells-Urine > 100 SEEN /hpf (0-5); White Blood Cells 0-5 SEEN /hpf (0-5)
== END | disposition home or self-care (01) ==
LOC: LABSPEC 15:55
PROVIDERS: PCP Internal Medicine; Referring Provider Internal Medicine; Visit Provider Internal Medicine
DX: R39.89 Other symptoms and signs involving the genitourinary system (principal)
CPT/HCPCS: 81001; 87086; 87088

== ENCOUNTER 2024-09-01 16:09 | Outpatient (RCR) | payer MEDICARE, OTHER, SELFPAY ==
--- NOTE | 2024-08-10 12:05 | NS ---
08/10/24: ANJELN received call from pt's significant other, Christiane this morning. She reports that they haven't received the feeding tube pump yet from [facility]. ZACHARIAH called [facility] ( ) and left a voicemail asking for an update on the patients order that was sent to them on 07/27/24. Will provide update to Christiane when more information is available. Yoon Shin RDN, LD
== END 2024-09-05 23:59 ==
LOC: NS 16:09
PROVIDERS: PCP Internal Medicine; Visit Provider Internal Medicine Medical Oncology
DX: N18.4 Chronic kidney disease, stage 4 (severe) (principal); Z71.3 Dietary counseling and surveillance; C13.9 Malignant neoplasm of hypopharynx, unspecified
CPT/HCPCS: 97803

== ENCOUNTER 2024-09-16 16:32 | Observation (INO) | payer MEDICARE, OTHER, SELFPAY ==
--- NOTE | 2024-09-04 17:17 | PAT.ANESEVAL ---
Pre-Assessment Diagnosis/Proposed Procedure Planned Operative Procedure(s): (L) Cysto,Ureteroscopy,Retro,Laser Anesthesia History Anesthesia History - ice cream freezer: Anesthesia History - ice cream freezer Hx Hospitalization No 09/04/24 11:20 Any Problems With Anesthesia No 09/04/24 11:20 Cholinesterase deficiency No 09/04/24 11:20 You/Your Family Experience No 09/04/24 11:20 fever (hyperthermia) with Relationship Recent Exposure to Contagious No 06/29/24 11:11 Disease Does patient have nerve No 09/04/24 11:20 stimulator Patient instructed to have device shut off --Does patient have Pacemaker or ICD? When Was Last Pacemaker Check QUESTION #4 FULL TEXT: You/Your Family Experience fever (hyperthermia) with Anesthesia Last Oral Intake Last Oral intake: Last Oral Intake NPO since Meds taken in AM with sips of water? Meds patient instructed to take am of surgery PONV PONV - ice cream freezer: PONV - ice cream freezer Female No 09/04/24 11:20 HX of Motion Sickness No 09/04/24 11:20 HX of N/V After Surgery No 09/04/24 11:20 Non-Smoker Yes 09/04/24 11:20 Duration of Surgery greater No 09/04/24 11:20 than 60 minutes Number of Risk Factors 1 09/04/24 11:20 PONV Score Low Risk 09/04/24 11:20 Height & Weight Height & Weight: Anesthesia: Height & Weight Height 5 ft 10 in 08/10/24 14:26 Respiratory Assessment Respiratory Assessment - ice cream freezer: Respiratory Tract Infection Hx - ice cream freezer Hx Respiratory Tract Infection No 09/04/24 11:20 STOP Sleep Apnea STOP Sleep Apnea - ice cream freezer: STOP Sleep Apnea - ice cream freezer Hx Hypertension No: hypotension 09/04/24 11:20 Hx Sleep Apnea No 09/04/24 11:20 CPAP No 09/04/24 11:20 BIPAP No 09/04/24 11:20 Do you snore loudly (louder No 09/04/24 11:20 than talking or can be heard Do you often feel tired/ No 09/04/24 11:20 fatigued/ sleepy during daytime? Has anyone observed you stop No 09/04/24 11:20 breathing during sleep? STOP Results Negative 09/04/24 11:20 QUESTION #5 FULL TEXT : Do you snore loudly (louder than talking or can be heard through closed doors)? Tobacco Use History Tobacco Use History - ice cream freezer: Tobacco Use History - ice cream freezer Tobacco Use Smoking Status Former smoker 09/04/24 11:20 Hx Tobacco Use No: quit smoking 2 years ago 09/04/24 11:20 Years Smoking Packs Smoked per Day Smoking Cessation Date was Yes - quit smoking within 15 09/04/24 11:20 within the last 15 years years Hx Smoking Cessation Date 02/10/22 09/04/24 11:20 Hx Smoking Cessation Yes 09/04/24 11:20 Counseling Hematologic Medial History Hematologic Hx - ice cream freezer: Hematologic Medical Hx - sawdust drier Hx of Blood Transfusion No 09/04/24 11:20 Hx of Transfusion in last 3 No 09/04/24 11:20 Months Date of Last Transfusion (if within last 3 months) Ever experience any problems No 09/04/24 11:20 with transfusion(s)? Specify any problems Hx of Preganancy in last 3 N/A 09/04/24 11:20 Months Nurse Filling Out Transfusion VCHRISTIN 09/04/24 11:20 & Questions: Date: 09/04/24 09/04/24 11:20 Time: 11:27 09/04/24 11:20 Patient unable to answer at this time (ie. 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 Prerenal azotemia Acute prerenal azotemia Sepsis Aspiration pneumonia of both lower lobes Cardiomyopathy PAF (paroxysmal atrial fibrillation) Chronic hypotension Acute uremia Acute dehydration Acute and chronic respiratory failure with hypoxia CKD (chronic kidney disease), stage III 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 Pneumonitis Thrush, oral Pneumonia Cancer Ambulates with cane Indwelling urethral catheter present Tracheostomy in place On home oxygen therapy Neuropathy Dysphagia Wears glasses Dietary restriction Former smoker Shortness of breath on exertion tracheotomy and laryngeal biopsy Long-term use of high-risk medication Secondary malignant neoplasm of lung Agranulocytosis secondary to cancer chemotherapy Antineoplastic chemotherapy induced anemia Adverse effect of antineoplastic and immunosuppressive drugs Primary malignant neoplasm of hypopharynx HCAP (healthcare-associated pneumonia) Home Medications ?Medication ?Instructions ?Recorded ?Last Taken ?Type lactose-reduced food with fiber 300 ml G-tube 4X/DAY NUTRITION #0 01/25/23 03/14/23 Rx 0.06 gram-1.5 kcal/mL oral liquid mL (Jevity 1.5 Dipesh) guaifenesin 100 mg/5 mL oral liquid 100 mg (5 mL) PO Q6H PRN 09/20/23 06/29/24 07:00 Rx congestion #473 mL ipratropium bromide 42 mcg (0.06 2 spray intranasal BID PRN allergy 01/08/24 Unknown History %) nasal spray symptoms acetaminophen 325 mg capsule 325 mg PO ONCE PRN pain 01/20/24 Unknown History lidocaine-prilocaine 2.5 %-2.5 % 1 applic topical ONCE PRN port 02/24/24 Unknown Rx topical cream access 30 days #30 grams apixaban 2.5 mg tablet (Eliquis) 2.5 mg feeding tube BID BLOOD 03/19/24 06/26/24 Rx THINNER #180 tabs amiodarone 100 mg tablet 100 mg G-tube DAILY AFIB #90 tabs 05/13/24 06/29/24 07:00 Rx ondansetron HCl 4 mg/5 mL oral 4 mg (5 mL) PO Q8H PRN nausea and 06/05/24 Unknown Rx solution vomiting 7 days #50 mL famotidine 40 mg/5 mL (8 mg/mL) 40 mg (5 mL) PO QDAY #150 mL 06/30/24 Unknown Rx oral suspension Avanos Freedom G-J tube with enfit #10 ea 07/02/24 Unknown Rx connector (luer lock) budesonide 0.5 mg/2 mL suspension 0.5 mg (2 mL) inhalation BID COPD 07/10/24 Unknown Rx for nebulization #120 mL midodrine 5 mg tablet 15 mg (3 x 5 mg) PO TID for blood 07/15/24 Unknown Rx pressure #810 TABLETS gabapentin 300 mg capsule 300 mg feeding tube BID NERVE PAIN 07/17/24 Unknown Rx #60 caps fluconazole 100 mg tablet 100 mg PO ONCE #1 TAB 08/16/24 Unknown Rx (Diflucan) levothyroxine 75 mcg tablet 75 mcg G-tube DAILY for disorder 08/26/24 Unknown Rx of thyroid gland #90 TABLETS Allergy/AdvReac Type Severity Reaction Status Date / Time venom-wasp Allergy Anaphylaxis Verified 09/04/24 11:09 nystatin AdvReac Severe Nausea/Vom/ Verified 09/04/24 11:09 Diarrhea pseudoephedrine HCl (From AdvReac Severe Unknown Verified 09/04/24 11:09 Sudafed) albuterol AdvReac Intermediate palpitation Verified 09/04/24 11:09 s Antihistamines - Alkylamine AdvReac Mild Other Verified 09/04/24 11:09 Family History (Reviewed 07/15/24 @ 13:18 by Kayleen Callejas [employer]) Mother Hypertension Colon cancer Surgical History (Updated 09/04/24 @ 11:20 by Rachel Arias) History of esophagogastroduodenoscopy (EGD) History of gastrostomy History of tracheostomy S/P TURP S/P percutaneous endoscopic gastrostomy (PEG) tube placement History of surgery Hx of tonsillectomy Social History (Reviewed 07/15/24 @ 13:18 by Kayleen Callejas [employer], [employer]) household members: significant other current occupational status: retired current occupation: worked in [employer] Smoking Status: Former smoker quit date: 04/08/17 pack-years: 55 alcohol intake: former details: never a heavy drinker substance use type: does not use do you feel safe at home: Yes Audit: Pertinent Findings Pertinent Findings EKG Perinent findings: June 05, 2024. Normal sinus rhythm. Echo (EF%) pertinent findings: 12/13/2022. EF 35 to 40%. No aortic stenosis is noted. Consult pertinent findings: May 13, 2024. Jose Elias HART. 1. Paroxysmal atrial fibrillation?acute-patient appears in normal sinus rhythm today. Continue amiodarone. Blood pressure is on the lower side?continue midodrine. Continue Eliquis. 2. Cardiomyopathy?acute-patient's blood pressure does not tolerate any medications. Will continue to monitor and reassess if symptoms worsen. Recommendation Anesthesia Recommendation Anesthesia recommendation: F/U recommended (Did this patient actually have a stress test done? What is listed as a stress test in the computer is a EKG only.)
--- NOTE | 2024-09-07 10:40 | PAT.ANE_ITS ---
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 When Was Last Pacemaker Check QUESTION #4 FULL TEXT: You/Your Family Experience fever (hyperthermia) with Anesthesia Last Oral Intake Last Oral intake: Last Oral Intake NPO since Meds taken in AM with sips of water? Meds patient instructed to take am of surgery PONV PONV - hvac technician residential: PONV - hvac technician residential Female No 09/04/24 11:20 HX of Motion Sickness No 09/04/24 11:20 HX of N/V After Surgery No 09/04/24 11:20 Non-Smoker Yes 09/04/24 11:20 Duration of Surgery greater No 09/04/24 11:20 than 60 minutes Number of Risk Factors 1 09/04/24 11:20 PONV Score Low Risk 09/04/24 11:20 Height & Weight Height & Weight: Anesthesia: Height & Weight Height 5 ft 10 in 08/10/24 14:26 Respiratory Assessment Respiratory Assessment - hvac technician residential: Respiratory Tract Infection Hx - hvac technician residential Hx Respiratory Tract Infection No 09/04/24 11:20 STOP Sleep Apnea STOP Sleep Apnea - hvac technician residential: STOP Sleep Apnea - hvac technician residential Hx Hypertension No: hypotension 09/04/24 11:20 Hx Sleep Apnea No 09/04/24 11:20 CPAP No 09/04/24 11:20 BIPAP No 09/04/24 11:20 Do you snore loudly (louder No 09/04/24 11:20 than talking or can be heard Do you often feel tired/ No 09/04/24 11:20 fatigued/ sleepy during daytime? Has anyone observed you stop No 09/04/24 11:20 breathing during sleep? STOP Results Negative 09/04/24 11:20 QUESTION #5 FULL TEXT : Do you snore loudly (louder than talking or can be heard through closed doors)? Tobacco Use History Tobacco Use History - hvac technician residential: Tobacco Use History - hvac technician residential Tobacco Use Smoking Status Former smoker 09/04/24 11:20 Hx Tobacco Use No: quit smoking 2 years ago 09/04/24 11:20 Years Smoking Packs Smoked per Day Smoking Cessation Date was Yes - quit smoking within 15 09/04/24 11:20 within the last 15 years years Hx Smoking Cessation Date 02/10/22 09/04/24 11:20 Hx Smoking Cessation Yes 09/04/24 11:20 Counseling Hematologic Medial History Hematologic Hx - hvac technician residential: Hematologic Medical Hx - area [place] Hx of Blood Transfusion No 09/04/24 11:20 Hx of Transfusion in last 3 No 09/04/24 11:20 Months Date of Last Transfusion (if within last 3 months) Ever experience any problems No 09/04/24 11:20 with transfusion(s)? Specify any problems Hx of Preganancy in last 3 N/A 09/04/24 11:20 Months Nurse Filling Out Transfusion VCHRISTIN 09/04/24 11:20 & Questions: Date: 09/04/24 09/04/24 11:20 Time: 11:27 09/04/24 11:20 Patient unable to answer at this time (ie. 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 Prerenal azotemia Acute prerenal azotemia Sepsis Aspiration pneumonia of both lower lobes Cardiomyopathy PAF (paroxysmal atrial fibrillation) Chronic hypotension Acute uremia Acute dehydration Acute and chronic respiratory failure with hypoxia CKD (chronic kidney disease), stage III care home (current) use of systemic steroids Pneumonitis Thrush, oral Pneumonia Cancer Ambulates with cane Indwelling urethral catheter present Tracheostomy in place On home oxygen therapy Neuropathy Dysphagia Wears glasses Dietary restriction Former smoker Shortness of breath on exertion tracheotomy and laryngeal biopsy Long-term use of high-risk medication Secondary malignant neoplasm of lung Agranulocytosis secondary to cancer chemotherapy Antineoplastic chemotherapy induced anemia Adverse effect of antineoplastic and immunosuppressive drugs Primary malignant neoplasm of hypopharynx HCAP (healthcare-associated pneumonia) Home Medications ?Medication ?Instructions ?Recorded ?Last Taken ?Type lactose-reduced food with fiber 300 ml G-tube 4X/DAY N UTRITION #0 01/25/23 03/14/23 Rx 0.06 gram-1.5 kcal/mL oral liquid mL (Jevity 1.5 Dipesh) guaifenesin 100 mg/5 mL oral liquid 100 mg (5 mL) PO Q 6H PRN 09/20/23 06/29/24 07:00 Rx congestion #473 mL ipratropium bromide 42 mcg (0.06 2 spray intranasal BI D PRN allergy 01/08/24 Unknown History %) nasal spray symptoms acetaminophen 325 mg capsule 325 mg PO ONCE PRN pain 1 Unknown History lidocaine-prilocaine 2.5 %-2.5 % 1 applic topical ONCE PRN port 02/24/24 Unknown Rx topical cream access 30 days #30 grams apixaban 2.5 mg tablet (Eliquis) 2.5 mg feeding tube B ID BLOOD 03/19/24 06/26/24 Rx THINNER #180 tabs amiodarone 100 mg tablet 100 mg G-tube DAILY AFIB #90 tabs 05/13/24 06/29/24 07:00 Rx ondansetron HCl 4 mg/5 mL oral 4 mg (5 mL) PO Q8H PRN nausea and 06/05/24 Unknown Rx solution vomiting 7 days #50 mL famotidine 40 mg/5 mL (8 mg/mL) 40 mg (5 mL) PO QDAY # 150 mL 06/30/24 Unknown Rx oral suspension Avanos Freedom G-J tube with enfit #10 ea 07/02/24 Unkn own Rx connector (luer lock) budesonide 0.5 mg/2 mL suspension 0.5 mg (2 mL) inhala tion BID COPD 07/10/24 Unknown Rx for nebulization #120 mL midodrine 5 mg tablet 15 mg (3 x 5 mg) PO TID for blood 07/15/24 Unknown Rx pressure #810 TABLETS gabapentin 300 mg capsule 300 mg feeding tube BID NERV E PAIN 07/17/24 Unknown Rx #60 caps fluconazole 100 mg tablet 100 mg PO ONCE #1 TAB Unknown Rx (Diflucan) levothyroxine 75 mcg tablet 75 mcg G-tube DAILY for di sorder 08/26/24 Unknown Rx of thyroid gland #90 TABLETS Allergy/AdvReac Type Severity Reaction Status Date / Time venom-wasp Allergy Anaphylaxis Verified 09/04/24 11:09 nystatin AdvReac Severe Nausea/Vom/ Verified 09/04/24 11:09 Diarrhea pseudoephedrine HCl (From AdvReac Severe Unknown Verified 09/04/24 11:09 Sudafed) albuterol AdvReac Intermediate palpitation Verified 09/04/24 11:09 s Antihistamines - Alkylamine AdvReac Mild Other Verified 09/04/24 11:09 Family History Mother Hypertension Colon cancer Surgical History (Updated 09/04/24 @ 11:20 by Rachel Arias) History of esophagogastroduodenoscopy (EGD) History of gastrostomy History of tracheostomy S/P TURP S/P percutaneous endoscopic gastrostomy (PEG) tube placement History of surgery Hx of tonsillectomy Social History household members: significant other current occupational status: retired current occupation: worked in [employer] Smoking Status: Former smoker quit date: 04/08/17 pack-years: 55 alcohol intake: former details: never a heavy drinker substance use type: does not use do you feel safe at home: Yes Audit: Pertinent Findings HISTORY of Pertinent Findings History of Pertinent Findings: EKG Pertinent Findings EKG Perinent findings June 05, 2024. Normal 09/04/24 17:19 sinus rhythm. Echo Pertinent Findings Echo (EF%) pertinent findings 12/13/2022. EF 35 to 40%. No 09/04/24 17:19 aortic stenosis is noted. Consult Pertinent Findings Consult pertinent findings May 13, 2024. 09/04/24 17:27 Jose Elias HART. 1. Paroxysmal atrial fibrillation?acute-patient appears in normal sinus rhythm today. Continue amiodarone. Blood pressure is on the lower side? continue midodrine. Continue Eliquis. 2. Cardiomyopathy?acute- patient's blood pressure does not tolerate any medications. Will continue to monitor and reassess if symptoms worsen. Recommendation Anesthesia Recommendation Anesthesia recommendation: OPTIMIZED for anesthesia (No stress test found; I think prudent to get cardiac clearance and proceed to surgery)
[2024-09-16] VITALS (16 sets, daily range): BP systolic 121–173; BP diastolic 60–84; PULSE 58–87; RESP 16–20; TEMP 36.2–36.8; O2SAT 94–100; BMI 18.4; BMI 18.9
--- NOTE | 2024-09-16 11:53 | PCM.PRE.AN2 ---
ASA Classification* ASA Classification ASA Classification: 3 Assessment & Plan Anesthesia* Anesthesia Assessment Anesthesia Assessment: Discussed sedation and/or anesthesia options, risks, benefits, and alternatives with patient/parents/legal guardian/POA. Questions invited. The patient/parents/legal guardian/POA seems to understand and agrees to proceed with anesthesia plan. Reviewed the physical assessment, medical history, allergy history and patient home medications list prior to surgery/procedure/anesthetic and documented any changes. Performed airway and anesthesia risk assessments. Anesthesia Type Anesthesia Type: General Anesthesia Focused Assessment* Airway Assessment Mouth opens: >3 cm Mallampati Score: II Labs Anesthesia Preop lab: CBC WBC 5.4 K/mm3 (4.4-11.0) 07/13/24 14:04 07/13/24 RBC 3.18 M/mm3 (4.6-6.2) L 07/13/24 14:04 07/13/24 Hgb 10.6 g/dL (13.0-16.5) L 07/13/24 14:04 07/13/24 Hct 34.2 % (40-54) L 07/13/24 14:04 07/13/24 Plt Count 134 K/mm3 (150-450) L 07/13/24 14:04 07/13/24 CHEMISTRY Potassium 5.0 mmol/L (3.3-5.1) 07/13/24 14:04 07/13/24 Sodium 142 mmol/L (133-145) 07/13/24 14:04 07/13/24 Magnesium 2.1 mg/dL (1.6-2.6) 07/09/23 05:50 07/09/23 Phosphorus 3.2 mg/dL (2.5-4.9) 07/09/23 05:50 07/09/23 BUN 48 mg/dL (4-19) H 07/13/24 14:04 07/13/24 Creatinine 1.53 mg/dL (0.70-1.20) H 07/13/24 14:04 07/13/24 Glucose 92 mg/dL (70-99) 07/13/24 14:04 07/13/24 POC Glucose 112 mg/dL (74-106) H 06/05/24 19:57 06/05/24 TSH 2.740 uIU/mL (0.358-3.740) 05/18/24 10:44 05/18/24 COAG PT 14.5 SECONDS (11.7-14.9) 07/09/23 05:50 07/09/23 Pre-Assessment Diagnosis/Proposed Procedure Planned Operative Procedure(s): (L) Cysto,Ureteroscopy,Retro,Laser Anesthesia History 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 When Was Last Pacemaker Check QUESTION #4 FULL TEXT: You/Your Family Experience fever (hyperthermia) with Anesthesia Last Oral Intake Last Oral intake: Last Oral Intake NPO since Meds taken in AM with sips of water? Meds patient instructed to take am of surgery PONV PONV - geography faculty member: PONV - geography faculty member Female No 09/04/24 11:20 HX of Motion Sickness No 09/04/24 11:20 HX of N/V After Surgery No 09/04/24 11:20 Non-Smoker Yes 09/04/24 11:20 Duration of Surgery greater No 09/04/24 11:20 than 60 minutes Number of Risk Factors 1 09/04/24 11:20 PONV Score Low Risk 09/04/24 11:20 Height & Weight Height & Weight: Anesthesia: Height & Weight Height 5 ft 10 in 09/14/24 13:15 Respiratory Assessment Respiratory Assessment - geography faculty member: Respiratory Tract Infection Hx - geography faculty member Hx Respiratory Tract Infection No 09/04/24 11:20 STOP Sleep Apnea STOP Sleep Apnea - geography faculty member: STOP Sleep Apnea - geography faculty member Hx Hypertension No: hypotension 09/14/24 13:15 Hx Sleep Apnea No 09/04/24 11:20 CPAP No 09/04/24 11:20 BIPAP No 09/04/24 11:20 Do you snore loudly (louder No 09/04/24 11:20 than talking or can be heard Do you often feel tired/ No 09/04/24 11:20 fatigued/ sleepy during daytime? Has anyone observed you stop No 09/04/24 11:20 breathing during sleep? STOP Results Negative 09/04/24 11:20 QUESTION #5 FULL TEXT : Do you snore loudly (louder than talking or can be heard through closed doors)? Tobacco Use History Tobacco Use History - geography faculty member: Tobacco Use History - geography faculty member Tobacco Use Smoking Status Former smoker 09/04/24 11:20 Hx Tobacco Use No: quit smoking 2 years ago 09/04/24 11:20 Years Smoking Packs Smoked per Day Smoking Cessation Date was Yes - quit smoking within 15 09/04/24 11:20 within the last 15 years years Hx Smoking Cessation Date 02/10/22 09/04/24 11:20 Hx Smoking Cessation Yes 09/04/24 11:20 Counseling Hematologic Medial History Hematologic Hx - geography faculty member: Hematologic Medical Hx - metaphysicist Hx of Blood Transfusion No 09/04/24 11:20 Hx of Transfusion in last 3 No 09/04/24 11:20 Months Date of Last Transfusion (if within last 3 months) Ever experience any problems No 09/04/24 11:20 with transfusion(s)? Specify any problems Hx of Preganancy in last 3 N/A 09/04/24 11:20 Months Nurse Filling Out Transfusion VCHRISTIN 09/04/24 11:20 & Questions: Date: 09/04/24 09/04/24 11:20 Time: 11:27 09/04/24 11:20 Patient unable to answer at this time (ie. confused, unrespo /Reproduction History /Reproductive History - geography faculty member: /Reproductive Hx- geography faculty member Hx Now No 09/04/24 11:20 Gestational Age (in weeks): EDC: Hx Hx Para Hx Section SAB No 09/04/24 11:20 Active Medications Active Medications: Current Medications Generic Name Dose Route Start Last Admin Trade Name Freq PRN Reason Stop Dose Admin Cefazolin Sodium 2 gm/ Sodium 110 mls @ 150 mls/hr 09/16/24 13:25 Chloride IV 09/16/24 14:08 INTRAOP ONE Lactated Ringer's 1,000 mls @ 15 mls/hr 09/16/24 11:30 IV .Q48H [facility] Medical History Thyroid disease Gastric reflux History of echocardiogram Cardiology follow-up encounter 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 Prerenal azotemia Acute prerenal azotemia Sepsis Aspiration pneumonia of both lower lobes Cardiomyopathy PAF (paroxysmal atrial fibrillation) Chronic hypotension Acute uremia Acute dehydration Acute and chronic respiratory failure with hypoxia CKD (chronic kidney disease), stage III skilled nursing (current) use of systemic steroids Pneumonitis Thrush, oral Pneumonia Cancer Ambulates with cane Indwelling urethral catheter present Tracheostomy in place On home oxygen therapy Neuropathy Dysphagia Wears glasses Dietary restriction Former smoker Shortness of breath on exertion tracheotomy and laryngeal biopsy Long-term use of high-risk medication Secondary malignant neoplasm of lung Agranulocytosis secondary to cancer chemotherapy Antineoplastic chemotherapy induced anemia Adverse effect of antineoplastic and immunosuppressive drugs Primary malignant neoplasm of hypopharynx HCAP (healthcare-associated pneumonia) Home Medications ?Medication ?Instructions ?Recorded ?Last Taken ?Type lactose-reduced food with fiber 300 ml G-tube 4X/DAY NUTRITION #0 01/25/23 03/14/23 Rx 0.06 gram-1.5 kcal/mL oral liquid mL (Jevity 1.5 Dipesh) guaifenesin 100 mg/5 mL oral liquid 100 mg (5 mL) PO Q6H PRN 09/20/23 06/29/24 07:00 Rx congestion #473 mL ipratropium bromide 42 mcg (0.06 2 spray intranasal BID PRN allergy 01/08/24 Unknown History %) nasal spray symptoms acetaminophen 325 mg capsule 325 mg PO ONCE PRN pain 01/20/24 Unknown History lidocaine-prilocaine 2.5 %-2.5 % 1 applic topical ONCE PRN port 02/24/24 Unknown Rx topical cream access 30 days #30 grams amiodarone 100 mg tablet 100 mg G-tube DAILY AFIB #90 tabs 05/13/24 06/29/24 07:00 Rx ondansetron HCl 4 mg/5 mL oral 4 mg (5 mL) PO Q8H PRN nausea and 06/05/24 Unknown Rx solution vomiting 7 days #50 mL famotidine 40 mg/5 mL (8 mg/mL) 40 mg (5 mL) PO QDAY #150 mL 06/30/24 Unknown Rx oral suspension Avanos Freedom G-J tube with enfit #10 ea 07/02/24 Unknown Rx connector (luer lock) budesonide 0.5 mg/2 mL suspension 0.5 mg (2 mL) inhalation BID COPD 07/10/24 Unknown Rx for nebulization #120 mL midodrine 5 mg tablet 15 mg (3 x 5 mg) PO TID for blood 07/15/24 Unknown Rx pressure #810 TABLETS gabapentin 300 mg capsule 300 mg feeding tube BID NERVE PAIN 07/17/24 Unknown Rx #60 caps fluconazole 100 mg tablet 100 mg PO ONCE #1 TAB 08/16/24 Unknown Rx (Diflucan) levothyroxine 75 mcg tablet 75 mcg G-tube DAILY for disorder 08/26/24 Unknown Rx of thyroid gland #90 TABLETS apixaban 2.5 mg tablet (Eliquis) 2.5 mg feeding tube BID BLOOD 09/09/24 Unknown Rx THINNER #180 tabs Allergy/AdvReac Type Severity Reaction Status Date / Time venom-wasp Allergy Anaphylaxis Verified 09/14/24 13:17 nystatin AdvReac Severe Nausea/Vom/ Verified 09/14/24 13:17 Diarrhea pseudoephedrine HCl (From AdvReac Severe Unknown Verified 09/14/24 13:17 Sudafed) albuterol AdvReac Intermediate palpitation Verified 09/14/24 13:17 s Antihistamines - Alkylamine AdvReac Mild Other Verified 09/14/24 13:17 Family History Mother Hypertension Colon cancer Surgical History History of esophagogastroduodenoscopy (EGD) History of gastrostomy History of tracheostomy S/P TURP S/P percutaneous endoscopic gastrostomy (PEG) tube placement History of surgery Hx of tonsillectomy Social History household members: significant other current occupational status: retired current occupation: worked in [employer] Smoking Status: Former smoker quit date: 04/08/17 pack-years: 55 alcohol intake: former details: never a heavy drinker substance use type: does not use do you feel safe at home: Yes Review of Systems (Anesthesia) ROS Narrative System reviewed and no additional complaints, except as documented.
[2024-09-16] MEDS: Lactated Ringers 1,000 ML 15 ML IV (12:22)
[2024-09-16] MEDS: Cefazolin 2 GM in 0.9% Normal Saline (100mL Bag) 100 ML IV (12:56)
--- NOTE | 2024-09-16 13:00 | DCINST_ITS ---
Discharge Instructions Diet Discharge Diet: No restrictions DC O2, CPAP, BIPAP needs Home O2 Discharge instructions: No Dressing / Incision Discharge Activity: Return to Normal Activity and May Not Drive (while taking narcotic pain medications.) Dressing / Incision Call your doctor if you observe: Fever of 101 or Higher Follow Up Care Please Follow Up With: Samuel Martinez MD When: Call [phone] for an appointment Test Results: Test results from this visit will be discussed in further detail at your follow- up appointment, if applicable. Discharge Plan Admission Primary Reason for Your Visit: laser stone and stent Attending Provider: Samuel Martinez Primary Care Provider: Gloria Mora Instructions Print Language: Icelandic Discharge Orders/Prescriptions Prescriptions: New cephalexin 500 mg tablet 500 mg PO BID Qty: 10 0RF Rx Instructions: crush and via peg oxycodone-acetaminophen 5-325 mg/5 mL solution 5 ml PO DAILY PRN (Reason: pain) 3 Days Qty: 200 0RF Rx Instructions: via peg Continued acetaminophen 325 mg capsule 325 mg PO ONCE PRN (Reason: pain) amiodarone 100 mg tablet 100 mg G-tube DAILY Qty: 90 3RF Jevity 1.5 Dipesh 0.06 gram-1.5 kcal/mL Liquid 300 ml G-tube 4X/DAY Qty: 0 0RF ipratropium bromide 42 mcg (0.06 %) spray,non-aerosol 2 spray INTRANASAL BID PRN (Reason: allergy symptoms) ondansetron HCl 4 mg/5 mL solution 4 mg PO Q8H PRN (Reason: nausea and vomiting) 7 Days Qty: 50 0RF Patient Comments: has not had to use it guaifenesin 100 mg/5 mL liquid 100 mg PO Q6H PRN (Reason: congestion) Qty: 473 11RF lidocaine-prilocaine 2.5-2.5 % cream 1 applic topical ONCE PRN (Reason: port access) 30 Days Qty: 30 2RF famotidine 40 mg/5 mL (8 mg/mL) suspension for reconstitution 40 mg PO QDAY Qty: 150 3RF Rx Instructions: administer via PEG (DME) Avanos Freedom G-J tube with enfit connector (luer lock) 60 mL enteral syringe See Rx Instructions .Route .MEDSUPPLY Qty: 10 0RF Rx Instructions: As directed budesonide 0.5 mg/2 mL suspension for nebulization 0.5 mg inhalation BID Qty: 120 6RF midodrine 5 mg tablet 15 mg PO TID Qty: 810 1RF gabapentin 300 mg capsule 300 mg feeding tube BID Qty: 60 6RF levothyroxine 75 mcg tablet 75 mcg G-tube DAILY Qty: 90 0RF Eliquis 2.5 mg tablet 2.5 mg feeding tube BID Qty: 180 1RF Patient Comments: STOPPING ELIQUIS 3 DAYS PRIOR Referrals / Follow Up: Gloria Mora MD [Primary Care Provider] - Michelle,Samuel Luciano MD [Med Staff - Active Staff] - Disposition Disposition (needs filled in before D/C Order can be placed): Home, Self Care
--- NOTE | 2024-09-16 13:58 | PCM.OPRPT ---
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: No Type of Anesthesia: General RN Documented Start/Stop Times: Operation Date: 09/16/24 13:25 Case Time Into Pre-Op 09/16/24 11:28 Procedure Start Time: 13:25 Procedure Stop Time: 13:59 Select all DRAINS/GRAFTS/IMPLANTS that apply: Drains Drain details: Left stent 6 x 26 Estimated Blood Loss: None Specimen collected: No Description of surgery: Patient was taken back to the operating room after smooth induction of anesthesia by the anesthesiology service he had a trach in, he was placed in dorsolithotomy position the penis and testicles were prepped and draped in usual fashion within the bladder with a 21 Pashto rigid cystourethroscope I then cannulated the left ureteral orifice with a Glidewire and then over the Glidewire went in with a flexible ureteroscope I was able able to navigate all up up into the kidney and once in the kidney I found the stone in the upper pole of the kidney at the upper pole calyx this was lasered completely with a 200 ?m thulium laser fiber with dusting settings. After this was lasered then I worked my way down the ureter and encountered the stone in the mid ureter this was lasered completely into dust using the ureteral settings. After both stones were lasered completely I worked my way out the ureter I then went back in with the cystoscope I tried to put a wire back up but I was getting difficult angle so then I used a semirigid ureteroscope to go back into the ureter then there was an for stone fragments in the distal ureter this was lasered again completely and then I put a wire through the ureteroscope backloaded the ureteroscope off the wire and then I put a stent up in the left left kidney under fluoroscopic guidance and cystoscopic guidance with the stent in good position and pulled the wire the stent coiled in the kidney bladder good position at the string of the stent for easy extraction in the few days he will see him next for cystoscopy stent removal Surgical Findings: Stone up in the left kidney lasered completely stone in the mid left ureter lasered completely Complications Complications: No Admit VTE Documentation VTE Present on Admission: No VTE Mechan Device Prophylaxis: SCD's VTE Pharm Prophylaxis ordered?: No
--- NOTE | 2024-09-16 14:15 | PCM.POST.ANE ---
Anesthesia: Postop Eval I Current Vital Signs Temperature: 97.2 F Pulse Rate: 72 Blood Pressure: 136/73 Respiratory Rate: 20 Pulse Ox: 100 Oxygen Delivery Method: Trach Collar Oxygen Flow Rate (L/min): 8 Assessment Airway patent: Yes Spontaneous unlabored respirations: Yes Mental status: Awake and Calm nausea: No Vomiting: No Anesthesia Complication: No Fluid Hydration Crystalloid volume administer (ml): 500 Total IV fluid infused: 500 Progress Note Anesthesia document: Postop Eval 1 completed: Yes
--- NOTE | 2024-09-16 15:00 | POSTOPAN2_ITS ---
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 Spontaneous unlabored Yes 09/16/24 14:16 SPEECH LANGUAGE ASSISTANT.[email or web address] respirations Mental status Awake,Calm 09/16/24 14:16 SPEECH LANGUAGE [email or web address].[email or web address] nausea No 09/16/24 14:16 SPEECH LANGUAGE [email or web address].[email or web address] Vomiting No 09/16/24 14:16 SPEECH LANGUAGE [email or web address].[email or web address] Anesthesia Postop Eval I: Fluid Summary Crystalloid volume administer 500 09/16/24 14:16 SPEECH LANGUAGE [email or web address] (ml) Colloids volume administered ( ml) Blood Product volume administered (ml) Total IV fluid infused 500 09/16/24 14:16 SPEECH LANGUAGE [email or web address].[email or web address] Anesthesia Postop Eval I: Summary Notes Anesthesia Complication No 09/16/24 14:16 SPEECH LANGUAGE [email or web address].[email or web address] Anesthesia Complication Comment: Post-operative progress note Anesthesia: Postop Eval II Evaluation Mental status: Awake Pain Level: 0 nausea: No Vomiting: No
--- NOTE | 2024-09-16 15:00 | PCM.POSTANE2 ---
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 Spontaneous unlabored Yes 09/16/24 14:16 [email or web address] [email or web address] respirations Mental status Awake,Calm 09/16/24 14:16 [email or web address] [email or web address] nausea No 09/16/24 14:16 CAMPUS [email or web address] Vomiting No 09/16/24 14:16 [email or web address] [email or web address] Anesthesia Postop Eval I: Fluid Summary Crystalloid volume administer 500 09/16/24 14:16 [email or web address] (ml) Colloids volume administered ( ml) Blood Product volume administered (ml) Total IV fluid infused 500 09/16/24 14:16 [email or web address] [email or web address] Anesthesia Postop Eval I: Summary Notes Anesthesia Complication No 09/16/24 14:16 [email or web address] [email or web address] Anesthesia Complication Comment: Post-operative progress note Anesthesia: Postop Eval II Evaluation Mental status: Awake Pain Level: 0 nausea: No Vomiting: No
[2024-09-16] MEDS: oxyCODONE 5 MG Tablet GT (16:40)
[2024-09-16] MEDS: 0.9% Normal Saline (1000mL) 1,000 ML 125 ML IV (18:51)
[2024-09-16] MEDS: Morphine 2 MG/ML Syringe IV (21:13)
[2024-09-16] MEDS: Ondansetron 4 MG/2 ML Vial IV (21:14)
[2024-09-16] MEDS: Ketorolac 15 MG/ML Vial IV (21:14)
[2024-09-16] MEDS: Gabapentin 300 MG Capsule GT (21:36)
[2024-09-16] MEDS: Cefazolin 1 GM/50 ML BAG IV (21:36)
[2024-09-16] MEDS: 0.9% Saline Lock 10 ML Syringe IV (21:41)
[2024-09-16] MEDS: Budesonide Respules 0.5 MG/2 ML AMPUL.NEB. INHALATION (22:09)
[2024-09-17] VITALS (7 sets, daily range): BP systolic 98–113; BP diastolic 48–75; PULSE 80–90; RESP 14–18; TEMP 36.9–37.4; O2SAT 95–100
[2024-09-17] MEDS: 0.9% Normal Saline (1000mL) 1,000 ML 125 ML IV (03:05)
[2024-09-17] MEDS: Cefazolin 1 GM/50 ML BAG IV (05:08)
[2024-09-17] MEDS: Levothyroxine 75 MCG Tablet GT (05:10)
[2024-09-17 06:15] LABS: Absolute Lymphocyte Count 1.01 X10^3/uL (0.83-4.51); Absolute Neutrophil Count 4.9 X10^3/uL (2.0-7.7); Basophil# 0.02 X10^3/uL; Basophil% 0.3 % (0-1); Eosinophil# 0.02 X10^3/uL; Eosinophils% 0.3 % (0-5); Hematocrit 26.8 % (40-54); Hemoglobin 8.4 g/dL (13.0-16.5); Lymphocyte # 1.01 X10^3/ul (0.83-4.51); Lymphocyte % 15.7 % (19-41); Mean Corp Hgb Conc 31.3 g/dL (32-36); Mean Corpuscular Hgb 33.1 pg (27.0-32.0); Mean Corpuscular Volume 105.5 fL (80-94); Mean Platelet Vol. 13.4 fl (6.2-12.0); Monocyte# 0.47 X10^3/uL; Monocyte% 7.3 % (0-10); NRBC Flagged by Analyzer 0 % (0-5); Neutrophil # 4.91 X10^3/uL (2.7-7.7); Neutrophil % 76.1 % (47-70); POSITIVE COUNT YES; Platelet Count 86 K/mm3 (150-450); RBC Distribution Width CV 14.3 % (11.6-14.6); RBC Distribution Width SD 54.7 fl (35.1-43.9); Red Blood Count 2.54 M/mm3 (4.6-6.2); White Blood Count 6.5 K/mm3 (4.4-11.0)
[2024-09-17 06:27] LABS: Differential Indicated SCAN CRITERIA MET
[2024-09-17 06:51] LABS: Anion Gap 9 (5-15); BUN 36 mg/dL (4-19); BUN/Creat Ratio 23.9 RATIO (10-20); Calcium,Total 8.7 mg/dL (7.6-11.0); Carbon Dioxide 25.7 mmol/L (21.0-32.0); Chloride 103 mmol/L (98-108); Creatinine, Serum 1.51 mg/dL (0.70-1.20); EST Glomerular Filtration Rate 47 (>60); Estimated Creatinine Clearance 34.77 ml/min (50-250); Glucose 94 mg/dL (70-99); Potassium 5.1 mmol/L (3.3-5.1); Sodium Level 137 mmol/L (133-145)
[2024-09-17] MEDS: Budesonide Respules 0.5 MG/2 ML AMPUL.NEB. INHALATION (06:58)
[2024-09-17 07:06] LABS: Platelet Estimate MOD DEC (ADEQ); Stomatocyte 2+
--- NOTE | 2024-09-17 08:20 | NS ---
09/17/24: Changed pt's diet to NPO. Patient well known to this RDN from outpatient oncology. 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 Pt has a G-J Tube and needs continuous tube feeds via J-tube of Jevity 1.5. Yoon Shin RDN, LD
--- NOTE | 2024-09-17 09:28 | CASEMGMT ---
Addendum entered by Anu Thompson 09/17/24 10:52: Received tc back from , he will call in cephalexin. Pt updated. Original Note: RN CM into pt room, pt sitting up in chair with and student nurses at bedside. Pt denies any homegoing needs. He states he is indep with TF. Pt gets oxygen through [email or web address], email sent for confirmation of orders. Pt has a portable tank in room for homegoing. Pt asks if [facility] has the medications that were prescribed. TC to [facility] pharmacy, they do not have the cephalexin but have the pain med and it is 36 cents. Paged to make aware of need to send in cephalexin. Awaiting returned call.
[2024-09-17] MEDS: Midodrine HCl 5 MG Tablet 15 MG PO (09:39)
[2024-09-17] MEDS: Famotidine 20 MG Tablet 40 MG GT (09:40)
[2024-09-17] MEDS: Amiodarone 200 MG Tablet 100 MG GT (09:41)
[2024-09-17] MEDS: Gabapentin 300 MG Capsule GT (09:43)
[2024-09-17] MEDS: Jevity 1.5. 1,000 ML Bottle 300 ML GT (09:44)
--- NOTE | 2024-09-17 14:05 | NURSING ---
requesting to have port left accessed. because pt going to have iv hydration tomorrow.
--- NOTE | 2024-09-17 14:39 | CHAPLAIN ---
Type of Pastoral Visit _x__ Initial Visit ___ Follow-up Visit ___ On-call Visit ___ General Patient Visit ___ Spiritual Assessment ___ Family Conference ___ Bereavement ___ Rapid Response ___ Code Blue ___ Other (describe below) Pastoral Care Referral From _x__ Patient ___ Family ___ Nurse ___ Physician ___ Tram Driver ___ Physician Assistant Certified ___ Other (describe below) Sacrament/Intervention _x__ Active listening ___ Anointing ___ Zoroastrianism ___ Bereavement ___ Communion ___ Gema exploration ___ ___ Life review _x__ Prayer ___ Reconciliation ___ Sacrament of Sick ___ Supportive presence ___ Wedding ___ Other (describe below) Pastoral Comments patient and spouse are in the room together; RN is finishing up his discharge instructions; pt expects to be released soon; both state that pt is doing much better now that procedure is done; due to limitations in ability to talk the is more active in giving details and speaking of the situation; in offering support to she admits that she is overwhelmed and stretched; spouse asks for a prayer; pt asks this dike supervisor some questions about what was on the news
== END 2024-09-17 14:44 | disposition home or self-care (01) ==
LOC: SDC 16:57 → MS3 16:57
PROVIDERS: Admitting Provider Urology; PCP Internal Medicine; Referring Provider Urology; Visit Provider Urology
PROC: (CPT 52353; principal; 2024-09-16 13:15)
DX: N20.2 Calculus of kidney with calculus of ureter (principal); N40.1 Benign prostatic hyperplasia with lower urinary tract symptoms; R33.8 Other retention of urine; Z79.899 Other long term (current) drug therapy; Z79.01 Long term (current) use of anticoagulants; Z87.891 Personal history of nicotine dependence; R63.6 Underweight; Z68.1 Body mass index [BMI] 19.9 or less, adult
CPT/HCPCS: 52356; 36415; 76000; 80048; 85025; 94640; 96361; 96365; 96366; 96375; 97802; 99221; A4216; C2617; G0378; J2405

== ENCOUNTER → 2024-11-09 | Outpatient (CLI) | payer MEDICARE, OTHER, SELFPAY ==
--- NOTE | 2024-11-09 13:10 | CT_ITS ---
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 Coronal and Sagittal reconstruction series were provided. One or more dose reduction techniques were used (e.g., Automated exposure control, adjustment of the mA and/or kV according to patient size, use of iterative reconstruction technique. PATIENT PREPARATION: Per protocol ORAL CONTRAST TYPE: None. CONTRAST: Isovue-300 VOLUME: 100mL RADIATION DOSE SUMMARY: CTDlvol: 9.5 mGy DLP: 651.72 mGycm COMPARISON: Prior examination dated May 11, 2024. FINDINGS: CT CHEST: Hardware: A left-sided port a catheter is seen with the tip in the superior vena cava. A tracheostomy tube is seen. This is unchanged. Stable 4 mm noncalcified nodule in the posterior apical area of the left upper lobe as seen on axial image number 27 stable 2 mm noncalcified nodule in the superior segment of the right lower lobe as seen on axial image number 56. Lymph nodes: Stable mild enlargement of the mediastinal lymph nodes. Heart and Vasculature: The heart is nonenlarged. Coronary artery calcification. Lungs and Airways: Mild degree of emphysematous changes. Scarring with bronchiectasis in the lower lobes more prominent at the right base. Persistent irregular nodules in the left lower lobe. Pleura: Small left pleural effusion. CT ABDOMEN: Liver: Scattered cysts in the liver. These are unchanged. Gallbladder: Findings suggestive of small dependent layering gallstones. Spleen: Normal size. Pancreas: Normal size without evidence of mass surrounding inflammation or ductal dilation. Adrenals: Unremarkable. Kidneys: Stable 2.5 cm cyst in the lateral aspect of the right kidney. Tiny nonobstructive calculi in the right kidney. Bowel: A PEG tube is seen within the stomach. A catheter is seen within the the 2nd and 3rd and 4th portions of the duodenum. Lymph nodes: No significant lymph nodes are seen. Vasculature: Mild diffuse atherosclerotic calcifications are noted. Peritoneum / Retroperitoneum: Unremarkable Bones: Degenerative changes of the spine. CT/CT Chest AND Abd W/ Contrast IMPRESSION: Coronary artery calcification (CAC) is is present Stable changes in both lungs. Tracheostomy tube in-situ. PEG tube is seen within the stomach. A catheter seen in the duodenum as described. Reading Location: [id number]
[2024-11-09 13:19] LABS: CREATININE FINGERSTICK < 1.0 mg/dL (0.70-1.30); EGFR FINGERSTICK > 60.0000 mL/min (>60)
== END | disposition home or self-care (01) ==
LOC: CT 12:55
PROVIDERS: PCP Internal Medicine; Referring Provider Nurse Practitioner Family; Visit Provider Nurse Practitioner Family
DX: Z01.812 Encounter for preprocedural laboratory examination (principal); C78.02 Secondary malignant neoplasm of left lung; Z85.818 Personal history of malignant neoplasm of other sites of lip, oral cavity, and pharynx
CPT/HCPCS: 71260; 74160; Q9967; A4216

== ENCOUNTER 2024-12-03 12:02 | Inpatient (IN) | payer MEDICARE, OTHER, SELFPAY ==
[2024-12-03] VITALS (23 sets, daily range): BP systolic 77–123; BP diastolic 43–67; PULSE 64–132; RESP 12–25; TEMP 35.9–38.6; O2SAT 91–100; BMI 19.1; BMI 19.4
--- NOTE | 2024-12-03 12:27 | RAD_ITS ---
PROCEDURE: CHEST PA AND LATERAL 12/03/2024 REASON FOR EXAM: SOB TECHNIQUE: CHEST PA AND LATERAL COMPARISON: Prior study dated June 05, 2024. FINDINGS: Hardware: A tracheostomy tube is in-situ. A left-sided port a catheter is seen with the tip at the junction of the superior vena cava and right atrium. EKG electrodes are seen. Heart: Borderline cardiomegaly. Mediastinum: The mediastinal contour is unremarkable. Lungs: Hyperinflation. Increased markings at the lung bases slightly worse on the left side with areas of confluence suggestive of either bibasilar atelectasis and/or early infiltrate. Blunting of both costophrenic angles posteriorly. Mild degree of vascular congestion. Bones: Degenerative changes are identified within the thoracic spine. RAD/Chest PA and Lateral IMPRESSION: Findings suggestive of either atelectasis and/or early infiltrates at both lung bases. Mild degree of vascular congestion. Reading Location: [facility]
--- NOTE | 2024-12-03 12:28 | EKG12_ITS ---
Test Reason : SOB Blood Pressure : */* mmHG Vent. Rate : 114 BPM Atrial Rate : 114 BPM P-R Int : 150 ms QRS Dur : 64 ms QT Int : 372 ms P-R-T Axes : 58 -7 53 degrees QTcB Int : 512 ms Sinus tachycardia Possible Anterior infarct (cited on or before 05-Jun-2024) Prolonged QT Abnormal ECG Confirmed by TRACEY NAGEL ([id number]), writer editor JOSÉ ARROYO ([id number]) on 12/08/2024 6:28:34 AM Referred By: Confirmed By: TRACEY NAGEL
[2024-12-03 12:48] LABS: Hematocrit 28.3 % (40-54); Hemoglobin 8.7 g/dL (13.0-16.5); Immature Granulocytes Count 0.010 X10^3/uL (0.0-0.0); Mean Corp Hgb Conc 30.7 g/dL (32-36); Mean Corpuscular Volume 104.0 fL (80-94); Mean Platelet Vol. 13.8 fl (6.2-12.0); NRBC Flagged by Analyzer 0 % (0-5); POSITIVE DIFFERENTIAL YES; Platelet Count 135 K/mm3 (150-450); RBC Distribution Width CV 14.5 % (11.6-14.6); RBC Distribution Width SD 55.3 fl (35.1-43.9); Red Blood Count 2.72 M/mm3 (4.6-6.2); White Blood Count 6.0 K/mm3 (4.4-11.0)
[2024-12-03 12:50] LABS: Prothrombin Time (Protime)PT. 15.7 SECONDS (11.7-14.9)
[2024-12-03 12:51] LABS: Partial Thromboplast Time 33.1 Seconds (24.1-36.2)
[2024-12-03] MEDS: 0.9% Normal Saline (1000mL) 1,000 ML 999 ML IV ×2 (13:24→14:55)
[2024-12-03] MEDS: Acetaminophen 650 MG/20 ML UDC GT (14:06)
[2024-12-03 14:08] LABS: AST(SGOT) 21 U/L (<=37); Alanine Aminotransfer ALT/SGPT 12 U/L (<=46); Albumin, Serum 3.6 g/dL (3.4-4.8); Alkaline Phosphatase 93 U/L (40-129); Anion Gap 11 (5-15); BUN 39 mg/dL (4-19); BUN/Creat Ratio 28.9 RATIO (10-20); Calcium,Total 9.8 mg/dL (7.6-11.0); Carbon Dioxide 28.2 mmol/L (21.0-32.0); Chloride 100 mmol/L (98-108); Estimated Creatinine Clearance 39.10 ml/min (50-250); Globulin 4.0 g/dL (2.2-4.2); Glucose 91 mg/dL (70-99); Potassium 4.4 mmol/L (3.3-5.1)
--- NOTE | 2024-12-03 14:23 | EX.ED.DYSGE1 ---
HPI <LEÓN Ortiz - Last Filed: 12/03/24 17:18> History of Present Illness Chief Complaint: Shortness of Breath Narrative Narrative: Patient presenting today due to concerns for shortness of breath that started this morning. 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 He always has a slight productive cough, his cough has not been significantly worse. He has a history of DVT on Eliquis which he is compliant with. He reports chills but denies fevers, chest pain, abdominal pain, nausea, or vomiting. 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), 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 Pneumonitis Thrush, oral Pneumonia Cancer Ambulates with cane Indwelling urethral catheter present Tracheostomy in place On home oxygen therapy Neuropathy Dysphagia Wears glasses Dietary restriction Former smoker Shortness of breath on exertion tracheotomy and laryngeal biopsy Long-term use of high-risk medication Secondary malignant neoplasm of lung Agranulocytosis secondary to cancer chemotherapy Antineoplastic chemotherapy induced anemia Adverse effect of antineoplastic and immunosuppressive drugs Primary malignant neoplasm of hypopharynx HCAP (healthcare-associated pneumonia) Home Medications ?Medication ?Instructions ?Recorded ?Last Taken ?Type lactose-reduced food with fiber 300 ml G-tube 4X/DAY NUTRITION #0 01/25/23 09/15/24 Rx 0.06 gram-1.5 kcal/mL oral liquid mL (Jevity 1.5 Dipesh) guaifenesin 100 mg/5 mL oral liquid 100 mg (5 mL) PO Q6H PRN 09/20/23 09/16/24 08:30 Rx congestion #473 mL ipratropium bromide 42 mcg (0.06 2 spray intranasal BID PRN allergy 01/08/24 09/15/24 History %) nasal spray symptoms acetaminophen 325 mg capsule 325 mg PO ONCE PRN pain 01/20/24 Unknown History lidocaine-prilocaine 2.5 %-2.5 % 1 applic topical ONCE PRN port 02/24/24 09/14/24 Rx topical cream access 30 days #30 grams amiodarone 100 mg tablet 100 mg G-tube DAILY AFIB #90 tabs 05/13/24 09/16/24 08:30 Rx ondansetron HCl 4 mg/5 mL oral 4 mg (5 mL) PO Q8H PRN nausea and 06/05/24 Unknown Rx solution vomiting 7 days #50 mL Avanos Freedom G-J tube with enfit #10 ea 07/02/24 Unknown Rx connector (luer lock) midodrine 5 mg tablet 15 mg (3 x 5 mg) PO TID for blood 07/15/24 09/16/24 08:00 Rx pressure #810 TABLETS gabapentin 300 mg capsule 300 mg feeding tube BID NERVE PAIN 07/17/24 09/16/24 08:30 Rx #60 caps levothyroxine 75 mcg tablet 75 mcg G-tube DAILY for disorder 08/26/24 09/16/24 05:50 Rx of thyroid gland #90 TABLETS apixaban 2.5 mg tablet (Eliquis) 2.5 mg feeding tube BID BLOOD 09/09/24 09/12/24 Rx THINNER #180 tabs famotidine 40 mg/5 mL (8 mg/mL) 40 mg (5 mL) PO QDAY #150 mL 10/22/24 Unknown Rx oral suspension budesonide 0.5 mg/2 mL suspension 0.5 mg (2 mL) inhalation BID COPD 11/23/24 Unknown Rx for nebulization #120 mL OXYGEN - Supplemental ([facility] 12/04/24 Unknown History INFORMATIONAL USE ONLY) Allergy/AdvReac Type Severity Reaction Status Date / Time venom-wasp Allergy Anaphylaxis Verified 11/30/24 11:00 nystatin AdvReac Severe Nausea/Vom/ Verified 11/30/24 11:00 Diarrhea pseudoephedrine HCl (From AdvReac Severe Unknown Verified 11/30/24 11:00 Sudafed) albuterol AdvReac Intermediate palpitation Verified 11/30/24 11:00 s Antihistamines - Alkylamine AdvReac Mild Other Verified 11/30/24 11:00 Family History Mother Hypertension Colon cancer Surgical History History of esophagogastroduodenoscopy (EGD) History of gastrostomy History of tracheostomy S/P TURP S/P percutaneous endoscopic gastrostomy (PEG) tube placement History of surgery Hx of tonsillectomy Social History household members: significant other current occupational status: retired current occupation: worked in [employer] Smoking Status: Former smoker quit date: 04/08/17 pack-years: 55 alcohol intake: former details: never a heavy drinker substance use type: does not use do you feel safe at home: Yes ROS <LEÓN Ortiz - Last Filed: 12/03/24 17:18> ROS ED Constitutional Constitutional ED: Denies chills or fever(s) Cardiovascular Cardiovascular: Denies chest pain Respiratory/Chest Respiratory/Chest: Reports cough, dyspnea and sputum; Denies wheezing Gastrointestinal Gastrointestinal: Denies abdominal pain, nausea or vomiting Musculoskeletal Musculoskeletal: Denies arthralgias or myalgias Integumentary Denies rash Neurologic Neurologic: Denies weakness EXAM <LEÓN Ortiz - Last Filed: 12/03/24 17:18> Physical Exam Const Vital Signs: 12/03/24 12:03 12/03/24 12:08 12/03/24 12:56 Temperature 101.4 F H 101.4 F H Temperature Source Oral Oral Pulse Rate 132 H 132 H Respiratory Rate 23 H 23 H Respiratory Effort Respiratory Depth Respiratory Pattern Blood Pressure 87/58 L 87/58 L Blood Pressure Mean 67 67 Pulse Ox 91 91 Oxygen Delivery Method Trach Collar Trach Collar Trach Collar Oxygen Flow Rate (L/min) 6 6 12/03/24 13:08 12/03/24 13:28 12/03/24 13:30 Temperature 99.8 F H Temperature Source Oral Pulse Rate 102 H 104 H 107 H Respiratory Rate 23 H 24 H 25 H Respiratory Effort Respiratory Depth Respiratory Pattern Blood Pressure 123/67 H 116/65 Blood Pressure Mean 85 80 Pulse Ox 100 100 100 Oxygen Delivery Method Trach Collar Oxygen Flow Rate (L/min) 12/03/24 13:30 12/03/24 13:30 12/03/24 13:45 Temperature Temperature Source Pulse Rate 104 H Respiratory Rate 22 H Respiratory Effort Respiratory Depth Respiratory Pattern Blood Pressure 116/65 116/65 119/67 Blood Pressure Mean 80 80 83 Pulse Ox 100 Oxygen Delivery Method Oxygen Flow Rate (L/min) 12/03/24 14:00 12/03/24 14:15 12/03/24 14:27 Temperature Temperature Source Pulse Rate 99 105 H Respiratory Rate 20 H 23 H Respiratory Effort Short of Breath Respiratory Depth Normal Respiratory Pattern Tachypnea Blood Pressure 123/67 H 117/66 Blood Pressure Mean 85 82 Pulse Ox 100 100 Oxygen Delivery Method Trach Collar Oxygen Flow Rate (L/min) 6 12/03/24 15:00 12/03/24 16:00 12/03/24 16:59 Temperature 99.7 F H 98.9 F Temperature Source Oral Oral Pulse Rate 91 82 Respiratory Rate 25 H 20 H Respiratory Effort Respiratory Depth Respiratory Pattern Blood Pressure 84/54 L 100/57 L 91/63 Blood Pressure Mean 64 71 72 Pulse Ox 98 100 100 Oxygen Delivery Method Trach Collar Trach Collar Trach Collar Oxygen Flow Rate (L/min) 4 4 Positive well nourished, well developed and no apparent distress General Appearance ED: well developed HEENT Reports normocephalic and head/scalp atraumatic Mouth ED: Yes moist mucous membranes normal Eyes PERRL and EOMs intact bilaterally Neck full ROM and supple Neck Narrative: Tracheostomy in place Chest Wall inspection of chest normal Resp normal respiratory effort Resp Narrative: Coarse breath sounds Cardio regular rhythm Rate: tachycardic GI soft to palpation, non-tender, non-distended and no masses Back/Spine normal ROM and normal to inspection Extremity normal to inspection and full ROM Neuro oriented x3, CN's II-XII intact bilaterally, moves all extremities, no focal motor deficits and no sensory deficits noted Sensorium / Orientation: awake and alert Psych mental status grossly normal and thought process normal Skin no rashes or lesions noted and no wounds <Dr. Jackie Marrufo, DO - Last Filed: 12/06/24 01:03> Physical Exam Const Vital Signs: 12/03/24 12:03 12/03/24 12:08 12/03/24 12:56 Temperature 101.4 F H 101.4 F H Temperature Source Oral Oral Pulse Rate 132 H 132 H Respiratory Rate 23 H 23 H Respiratory Effort Respiratory Depth Respiratory Pattern Blood Pressure 87/58 L 87/58 L Blood Pressure Mean 67 67 Pulse Ox 91 91 Oxygen Delivery Method Trach Collar Trach Collar Trach Collar Oxygen Flow Rate (L/min) 6 6 12/03/24 13:08 12/03/24 13:28 12/03/24 13:30 Temperature 99.8 F H Temperature Source Oral Pulse Rate 102 H 104 H 107 H Respiratory Rate 23 H 24 H 25 H Respiratory Effort Respiratory Depth Respiratory Pattern Blood Pressure 123/67 H 116/65 Blood Pressure Mean 85 80 Pulse Ox 100 100 100 Oxygen Delivery Method Trach Collar Oxygen Flow Rate (L/min) 12/03/24 13:30 12/03/24 13:30 12/03/24 13:45 Temperature Temperature Source Pulse Rate 104 H Respiratory Rate 22 H Respiratory Effort Respiratory Depth Respiratory Pattern Blood Pressure 116/65 116/65 119/67 Blood Pressure Mean 80 80 83 Pulse Ox 100 Oxygen Delivery Method Oxygen Flow Rate (L/min) 12/03/24 14:00 12/03/24 14:15 12/03/24 14:27 Temperature Temperature Source Pulse Rate 99 105 H Respiratory Rate 20 H 23 H Respiratory Effort Short of Breath Respiratory Depth Normal Respiratory Pattern Tachypnea Blood Pressure 123/67 H 117/66 Blood Pressure Mean 85 82 Pulse Ox 100 100 Oxygen Delivery Method Trach Collar Oxygen Flow Rate (L/min) 6 12/03/24 15:00 12/03/24 16:00 12/03/24 16:59 Temperature 99.7 F H 98.9 F Temperature Source Oral Oral Pulse Rate 91 82 Respiratory Rate 25 H 20 H Respiratory Effort Respiratory Depth Respiratory Pattern Blood Pressure 84/54 L 100/57 L 91/63 Blood Pressure Mean 64 71 72 Pulse Ox 98 100 100 Oxygen Delivery Method Trach Collar Trach Collar Trach Collar Oxygen Flow Rate (L/min) 4 4 MDM <LEÓN Ortiz - Last Filed: 12/03/24 17:18> [facility] Narrative Medical decision making narrative: Patient presenting today with shortness of breath that started this morning. He has a history of COPD, lung cancer, and hypopharynx cancer. He has a tracheostomy in place. He did trigger SIRS criteria due to being hypotensive, tachycardic, tachypneic, and febrile. Therefore sepsis workup was initiated. He will be given a 30 kg/cc fluid bolus. Given Tylenol for fever. Chest x-ray suggests early infiltrates at the bilateral lung bases with mild vascular congestion. Blood cultures obtained and will be treated for pneumonia with IV Rocephin and azithromycin. He did require his afternoon dose of midodrine due to hypotension. I do feel would benefit from admission to the hospital, I will speak with the hospitalist. He will be admitted to the ICU in stable condition. Lab Data Attestation: I reviewed the patient's lab results. Lab results narrative: Hemoglobin 8.7, platelet count 135, BUN 39, creatinine 1.35, lactic acid 2.2 Labs: Laboratory Results - last 24 hr 12/03/24 12/03/24 12:12 15:00 WBC 6.0 RBC 2.72 L Hgb 8.7 L Hct 28.3 L MCV 104.0 H MCH 32.0 MCHC 30.7 L RDW Std Deviation 55.3 H RDW Coeff of Oz 14.5 Plt Count 135 L MPV 13.8 H Immature Gran % (Auto) 0.200 Neut % (Auto) 87.1 H Lymph % (Auto) 4.7 L Colbert % (Auto) 7.5 Eos % (Auto) 0.2 Baso % (Auto) 0.3 Absolute Neuts (auto) 5.3 Absolute Lymphs (auto) 0.28 L Nucleated RBC % 0 PT 15.7 H INR 1.2 APTT 33.1 Sodium 139 Potassium 4.4 Chloride 100 Carbon Dioxide 28.2 Anion Gap 11 BUN 39 H Creatinine 1.35 H Estim Creat Clear Calc 39.10 L Est GFR (MDRD) Non-Af 54 L BUN/Creatinine Ratio 28.9 H Glucose 91 Lactic Acid 2.2 H* Calcium 9.8 Total Bilirubin 0.34 AST 21 ALT 12 Alkaline Phosphatase 93 Total Protein 7.6 Albumin 3.6 Globulin 4.0 Albumin/Globulin Ratio 0.9 Urine Color Yellow Urine Clarity Sl. Cloudy Urine pH 6.5 Ur Specific Higbee 1.010 Urine Protein 100 H Urine Glucose (UA) Normal Urine Ketones Negative Urine Occult Blood 250 H Urine Nitrite Negative Urine Bilirubin Negative Urine Urobilinogen Normal Ur Leukocyte Esterase 100 H Urine RBC 10-25 SEEN Urine WBC 10-25 SEEN Ur Squamous Epith Cells 0 SEEN Urine Bacteria 0 SEEN Urine Mucus 0 SEEN Radiography X-Ray: Read by ED Physician Diagnostic Testing: Clinical Impression(s) from Imaging Studies Chest X-Ray 12/03/24 12:27 IMPRESSION: Findings suggestive of either atelectasis and/or early infiltrates at both lung bases. Mild degree of vascular congestion. Reading Location: [id number] Initial EKG: Comments: 114 bpm, sinus tachycardia, no ST elevation, interpreted by attending ED physician <Dr. Jackie Marrufo, DO - Last Filed: 12/06/24 01:03> [facility] Narrative Medical decision making narrative: Patient presenting today with shortness of breath that started this morning. He has a history of COPD, lung cancer, and hypopharynx cancer. He has a tracheostomy in place. He did trigger SIRS criteria due to being hypotensive, tachycardic, tachypneic, and febrile. Therefore sepsis workup was initiated. He will be given a 30 kg/cc fluid bolus. Given Tylenol for fever. Chest x-ray suggests early infiltrates at the bilateral lung bases with mild vascular congestion. Blood cultures obtained and will be treated for pneumonia with IV Rocephin and azithromycin. He did require his afternoon dose of midodrine due to hypotension. I do feel would benefit from admission to the hospital, I will speak with the hospitalist. He will be admitted to the ICU in stable condition. I have personally performed a face to face assessment of the patient and have reviewed the TRANG Note. I performed a substantive portion of the visit including all aspects of the following. My diana findings include: History is patient is a 79-year-old male with extensive medical history including metastatic laryngeal cancer to the lungs, tracheostomy, proximal supraventricular tachycardia, hypothyroidism, COPD, proximal atrial fibrillation, and malnutrition presenting with fever today. Has had a change in his sputum production. Is currently following with pulmonology and is supposed to get started with a percussion vest because he does also have a history of significant mucous plugging. Upon arrival patient is febrile with a temperature of 101.4, blood pressure of 87/58 (did not take his midodrine this morning) and tachycardic as well as tachypneic. Is given 30 cc/kg fluid bolus. Sepsis workup is initiated. Chest x-ray viewed by myself as well as radiology is suggestive of likely bibasilar infiltrates there is also mild degree of vascular congestion. His creatinine is mildly elevated but at his baseline. Lactate elevated at 2.2. He has had increased O2 demands at home today. Urinalysis is not consistent with infection. Patient started on antibiotics for community-acquired pneumonia. Vital signs do improve however given the patient's significant comorbidities and presentation consistent with sepsis versus severe sepsis he will be started in the unit after discussion with hospitalist. Patient and agreeable plan of care. Other additions or changes: [None] Lab Data Labs: Laboratory Results - last 24 hr 12/03/24 12/03/24 12:12 15:00 WBC 6.0 RBC 2.72 L Hgb 8.7 L Hct 28.3 L MCV 104.0 H MCH 32.0 MCHC 30.7 L RDW Std Deviation 55.3 H RDW Coeff of Oz 14.5 Plt Count 135 L MPV 13.8 H Immature Gran % (Auto) 0.200 Neut % (Auto) 87.1 H Lymph % (Auto) 4.7 L Colbert % (Auto) 7.5 Eos % (Auto) 0.2 Baso % (Auto) 0.3 Absolute Neuts (auto) 5.3 Absolute Lymphs (auto) 0.28 L Nucleated RBC % 0 PT 15.7 H INR 1.2 APTT 33.1 Sodium 139 Potassium 4.4 Chloride 100 Carbon Dioxide 28.2 Anion Gap 11 BUN 39 H Creatinine 1.35 H Estim Creat Clear Calc 39.10 L Est GFR (MDRD) Non-Af 54 L BUN/Creatinine Ratio 28.9 H Glucose 91 Lactic Acid 2.2 H* Calcium 9.8 Total Bilirubin 0.34 AST 21 ALT 12 Alkaline Phosphatase 93 Total Protein 7.6 Albumin 3.6 Globulin 4.0 Albumin/Globulin Ratio 0.9 Urine Color Yellow Urine Clarity Sl. Cloudy Urine pH 6.5 Ur Specific Higbee 1.010 Urine Protein 100 H Urine Glucose (UA) Normal Urine Ketones Negative Urine Occult Blood 250 H Urine Nitrite Negative Urine Bilirubin Negative Urine Urobilinogen Normal Ur Leukocyte Esterase 100 H Urine RBC 10-25 SEEN Urine WBC 10-25 SEEN Ur Squamous Epith Cells 0 SEEN Urine Bacteria 0 SEEN Urine Mucus 0 SEEN Radiography Diagnostic Testing: Clinical Impression(s) from Imaging Studies Chest X-Ray 12/03/24 12:27 IMPRESSION: Findings suggestive of either atelectasis and/or early infiltrates at both lung bases. Mild degree of vascular congestion. Reading Location: [id number] Management Discussion w/another healthcare provider: Hospitalist Discharge Plan Dx/Rx/DC Orders Clinical Impression: History of laryngeal cancer, Cancer, metastatic to lung, Sepsis, Pneumonia Disposition Disposition: Acute Care Hospital [facility] Discharge Date/Time: 12/03/24 18:05
[2024-12-03 15:05] LABS: Mucous, Urine 0 SEEN /hpf (<or=2+); Squamous Epithelial Cells - UA 0 SEEN /hpf (0-5)
[2024-12-03 15:16] LABS: Color, Urine Yellow (Yellow); Glucose, Dipstick Normal (Normal); Ketone-Dipstick Negative (Negative); Leukocyte Esterase-Dipstick 100 /ul (Negative); Nitrite-Dipstick Negative (Negative); Occult Blood-Urine 250 /ul (Negative); Protein-Dipstick 100 mg/dl (Negative); Specific Gravity, Urine 1.010 (1.002-1.030); Urine Bilirubin Dipstick Negative (Negative)
[2024-12-03] MEDS: Azithromycin 500 MG in Dextrose 5%-Water (250mL Bag) 250 ML 250 MG IV (15:23)
[2024-12-03 15:26] LABS: Red Blood Cells-Urine 10-25 SEEN /hpf (0-5)
--- NOTE | 2024-12-03 15:55 | HP.PCM.HOS_ITS ---
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 Reported chills but had no other new or acute complaints. In the ED temp 101.4, heart rate 132, blood pressure initially 87/58 with a respiratory rate of 23 and pulse ox 91% on 6 L through trach collar with a baseline of 4. CBC with a white count of 6 and hemoglobin 8.7, CMP with a BUN of 39 and a creatinine 1.35 with a lactic of 2.2 and chest x-ray suggestive of early infiltrates at both lung bases with a mild degree of vascular congestion. Patient given 30 cc/kg of IV fluids and antibiotics and hospitalist contacted for admission. Patient evaluated bedside. Patient evaluated with manager market at bedside, reportedly had been in his usual health until this morning when he had increased shortness of breath and increasing O2 requirement with increased secretions. Patient feeling little bit better and now, denies any chest pain, reports his only complaint is he would like to have a bowel movement, denies any diarrhea or any changes in urination, has some sinus drainage but this is not new. [facility], [facility] Medical History (Updated 12/03/24 @ 16:[address] Rosi Payne MD) Acute and chronic respiratory failure with hypoxia Acute dehydration Acute prerenal azotemia Acute uremia Adverse effect of antineoplastic and immunosuppressive drugs Agranulocytosis secondary to cancer chemotherapy Ambulates with cane Antineoplastic chemotherapy induced anemia Aspiration pneumonia of both lower lobes Cancer Cardiology follow-up encounter Cardiomyopathy Chronic hypotension CKD (chronic kidney disease), stage III Dietary restriction Dysphagia Former smoker Gastric reflux HCAP (healthcare-associated pneumonia) History of cancer of hypopharynx History of echocardiogram 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) use of systemic steroids Long-term use of high-risk medication Multiple drug resistant organism (MDRO) culture positive Neuropathy On home oxygen therapy PAF (paroxysmal atrial fibrillation) Pneumonia Pneumonitis Prerenal azotemia 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 Sepsis Shortness of breath on exertion Thrush, oral Thyroid disease Tracheostomy in place tracheotomy and laryngeal biopsy Wears glasses Home Medications ?Medication ?Instructions ?Recorded ?Last Taken ?Type lactose-reduced food with fiber 300 ml G-tube 4X/DAY N UTRITION #0 01/25/23 09/15/24 Rx 0.06 gram-1.5 kcal/mL oral liquid mL (Jevity 1.5 Dipesh) guaifenesin 100 mg/5 mL oral liquid 100 mg (5 mL) PO Q 6H PRN 09/20/23 09/16/24 08:30 Rx congestion #473 mL ipratropium bromide 42 mcg (0.06 2 spray intranasal BI D PRN allergy 01/08/24 09/15/24 History %) nasal spray symptoms acetaminophen 325 mg capsule 325 mg PO ONCE PRN pain 1 Unknown History lidocaine-prilocaine 2.5 %-2.5 % 1 applic topical ONCE PRN port 02/24/24 09/14/24 Rx topical cream access 30 days #30 grams amiodarone 100 mg tablet 100 mg G-tube DAILY AFIB #90 tabs 05/13/24 09/16/24 08:30 Rx ondansetron HCl 4 mg/5 mL oral 4 mg (5 mL) PO Q8H PRN nausea and 06/05/24 Unknown Rx solution vomiting 7 days #50 mL Avanos Freedom G-J tube with enfit #10 ea 07/02/24 Unkn own Rx connector (luer lock) midodrine 5 mg tablet 15 mg (3 x 5 mg) PO TID for blood 07/15/24 09/16/24 08:00 Rx pressure #810 TABLETS gabapentin 300 mg capsule 300 mg feeding tube BID NERV E PAIN 07/17/24 09/16/24 08:30 Rx #60 caps levothyroxine 75 mcg tablet 75 mcg G-tube DAILY for di sorder 08/26/24 09/16/24 05:50 Rx of thyroid gland #90 TABLETS apixaban 2.5 mg tablet (Eliquis) 2.5 mg feeding tube B ID BLOOD 09/09/24 09/12/24 Rx THINNER #180 tabs famotidine 40 mg/5 mL (8 mg/mL) 40 mg (5 mL) PO QDAY # 150 mL 10/22/24 Unknown Rx oral suspension budesonide 0.5 mg/2 mL suspension 0.5 mg (2 mL) inhala tion BID COPD 11/23/24 Unknown Rx for nebulization #120 mL Allergy/AdvReac Type Severity Reaction Status Date / Time venom-wasp Allergy Anaphylaxis Verified 11/30/24 11:00 nystatin AdvReac Severe Nausea/Vom/ Verified 11/30/24 11:00 Diarrhea pseudoephedrine HCl (From AdvReac Severe Unknown Verified 11/30/24 11:00 Sudafed) albuterol AdvReac Intermediate palpitation Verified 11/30/24 11:00 s Antihistamines - Alkylamine AdvReac Mild Other Verified 11/30/24 11:00 Family History Mother Hypertension Colon cancer Surgical History History of esophagogastroduodenoscopy (EGD) History of gastrostomy History of surgery History of tracheostomy Hx of tonsillectomy S/P percutaneous endoscopic gastrostomy (PEG) tube placement S/P TURP Social History household members: significant other current occupational status: retired current occupation: worked in [employer] Smoking Status: Former smoker quit date: 04/08/17 pack-years: 55 alcohol intake: former details: never a heavy drinker substance use type: does not use do you feel safe at home: Yes ROS ROS Narrative General: Denies fever/chills HENT: Denies headache, has had some nasal drainage but this is not new EYES: Denies changes in vision Resp: Increased accretions, shortness of breath increased with increased oxygen requirement Cardiac: Denies chest pain GI: Denies abdominal pain, denies changes in ava feels like he needs to have a bowel movement l, denies nausea/vomiting : Denies changes in urination Extremity: Denies swelling MSK: Little bit generally weak Neuro: Denies any numbness/tingling Heme: Easy bruising Skin: Denies rashes Psychiatric: None reported Vital Signs Vital Signs Vital Signs: 12/03/24 12:03 12/03/24 12:08 12/03/24 12:56 Temperature 101.4 F H 101.4 F H Temperature Source Oral Oral Pulse Rate 132 H 132 H Respiratory Rate 23 H 23 H Respiratory Effort Respiratory Depth Respiratory Pattern Blood Pressure 87/58 L 87/58 L Blood Pressure Mean 67 67 Pulse Ox 91 91 Oxygen Delivery Method Trach Collar Trach Collar Trach Collar Oxygen Flow Rate (L/min) 6 6 12/03/24 13:08 12/03/24 13:28 12/03/24 13:30 Temperature 99.8 F H Temperature Source Oral Pulse Rate 102 H 104 H 107 H Respiratory Rate 23 H 24 H 25 H Respiratory Effort Respiratory Depth Respiratory Pattern Blood Pressure 123/67 H 116/65 Blood Pressure Mean 85 80 Pulse Ox 100 100 100 Oxygen Delivery Method Trach Collar Oxygen Flow Rate (L/min) 12/03/24 13:30 12/03/24 13:30 12/03/24 13:45 Temperature Temperature Source Pulse Rate 104 H Respiratory Rate 22 H Respiratory Effort Respiratory Depth Respiratory Pattern Blood Pressure 116/65 116/65 119/67 Blood Pressure Mean 80 80 83 Pulse Ox 100 Oxygen Delivery Method Oxygen Flow Rate (L/min) 12/03/24 14:00 12/03/24 14:15 12/03/24 14:27 Temperature Temperature Source Pulse Rate 99 105 H Respiratory Rate 20 H 23 H Respiratory Effort Short of Breath Respiratory Depth Normal Respiratory Pattern Tachypnea Blood Pressure 123/67 H 117/66 Blood Pressure Mean 85 82 Pulse Ox 100 100 Oxygen Delivery Method Trach Collar Oxygen Flow Rate (L/min) 6 12/03/24 15:00 Temperature 99.7 F H Temperature Source Oral Pulse Rate 91 Respiratory Rate 25 H Respiratory Effort Respiratory Depth Respiratory Pattern Blood Pressure 84/54 L Blood Pressure Mean 64 Pulse Ox 98 Oxygen Delivery Method Trach Collar Oxygen Flow Rate (L/min) Weight Weight: 60.328 kg Body Mass Index (BMI) 19.1 Physical Exam Narrative General: Alert, no apparent distress HEENT: Atraumatic, normocephalic Eyes: Anicteric, normal conjunctiva, extraocular movements grossly intact Neck: Supple Respiratory: Coarse in the bases, normal respiratory effort Cardiovascular: Regular rate and rhythm GI: Soft, nontender, nondistended Extremities: No edema Musculoskeletal: Moving all extremities Neuro: No overt focal neurological deficits Skin: Scattered bruises Psych: Cooperative Results Lab / Micro Data 12/03/24 12:12 12/03/24 12:12 Labs: Laboratory Results - last 24 hr 12/03/24 12:12: WBC 6.0, RBC 2.72 L, Hgb 8.7 L, Hct 28.3 L, MCV 104.0 H, MCH 32.0, MCHC 30.7 L, RDW Std Deviation 55.3 H, RDW Coeff of Oz 14.5, Plt Count 135 L, MPV 13.8 H, Immature Gran % (Auto) 0.200, Neut % (Auto) 87.1 H, Lymph % (Auto) 4.7 L, Tucker % (Auto) 7.5, Eos % (Auto) 0.2, Baso % (Auto) 0.3, Absolute Neuts (auto) 5.3, Absolute Lymphs (auto) 0.28 L, Nucleated RBC % 0, PT 15.7 H, INR 1.2, APTT 33.1, Sodium 139, Potassium 4.4, Chloride 100, Carbon Dioxide 28.2, Anion Gap 11, BUN 39 H, Creatinine 1.35 H, Estim Creat Clear Calc 39.10 L, Est GFR (MDRD) Non-Af 54 L, BUN/Creatinine Ratio 28.9 H, Glucose 91, Lactic Acid 2.2 H*, Calcium 9.8, Total Bilirubin 0.34, AST 21, ALT 12, Alkaline Phosphatase 93, Total Protein 7.6, Albumin 3.6, Globulin 4.0, Albumin/Globulin Ratio 0.9 12/03/24 15:00: Urine Color Yellow, Urine Clarity Sl. Cloudy, Urine pH 6.5, Ur Specific [place] 1.010, Urine Protein 100 H, Urine Glucose (UA) Normal, Urine Ketones Negative, Urine Occult Blood 250 H, Urine Nitrite Negative, Urine Bilirubin Negative, Urine Urobilinogen Normal, Ur Leukocyte Esterase 100 H, Urine RBC 10-25 SEEN, Urine WBC 10-25 SEEN, Ur Squamous Epith Cells 0 SEEN, Urine Bacteria 0 SEEN, Urine Mucus 0 SEEN Micro: Microbiology 12/03/24 13:25 Mucosa - Nose SARS-CoV-2, Influenza & RSV (PCR) - Final Imaging Radiology Impression Chest X-Ray 12/03/24 12:27 IMPRESSION: Findings suggestive of either atelectasis and/or early infiltrates at both lung bases. Mild degree of vascular congestion. Reading Location: [facility] Assessment & Plan Assessment/Plan (1) Sepsis: QUALIFIERS: Sepsis acute organ dysfunction status: without acute organ dysfunction Sepsis type: sepsis due to unspecified organism Qualified Code(s): A41.9 - Sepsis, unspecified organism PLAN: Plan # Sepsis suspect secondary to pneumonia - Patient with increased shortness of breath, increased O2 requirement, temp of 101.4, tachycardic at 132 with a blood pressure of 87/58, respiratory rate elevated to 23 and lactic acid of 2.2 suggesting sepsis -Blood culture sent -Chest x-ray suggestive of bilateral pneumonia -UA does not appear infectious -Budesonide and inhaled ipratropium given allergy to albuterol -Sputum culture, COVID ordered, respiratory panel ordered -Urine antigens -Mucinex - Patient has history of MDRO, will broaden antibiotic coverage -Pt w/ suboptimal BP however he is chronically on midodrine and hadn't taken his second dose, improving now that he got his home midodrine # History of 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 - With PEG and trach chronically # Acute on chronic hypoxic respiratory failure secondary to pneumonia -Usually on 4 L -Was requiring 6 L to maintain sats - With PEG tube and tracheostomy - Respiratory support - Management as above -Scheduled nebs #Hx COPD -Budesonide and inhaled ipratropium given allergy to albuterol #Paroxysmal Atrial Fibrillation -Rate control: Amiodarone -Anticoagulation Eliquis #Hypothyroidism -Continue Synthroid #DVT ppx: Chronically on Eliquis Rosi Payne MD Sepsis Attestation Sepsis Alert: Yes Sepsis Attestation: Agree w/Sepsis Date exam was performed: 12/03/24 Time exam was performed: 16:00 Possible Source of Sepsis: Pulmonary Sepsis Organ Dysfunction Criteria Present: SBP < 90 mmHg or MAP < 65 mmHg, Acute Respiratory Failure (New need for BiPAP/CPAP or MV) and Lactic Acid > 2 mmol/L Supportive Findings: Patient with increased shortness of breath, increased O2 requirement, temp of 101.4, tachycardic at 132 with a blood pressure of 87/58, respiratory rate elevated to 23 and lactic acid of 2.2 suggesting sepsis Fluid Resuscitation Fluid resuscitation indicated?: Yes Fluid Resuscitation ordered: 30 ml/kg fluid bolus ordered Charges/Coding Visit Charges Inpatient E&M: 79577 Init Hosp L2
[2024-12-03 16:35] LABS: Reflex Lactate? Y
[2024-12-03] MEDS: Piperacil/Tazobactam 3.375 GM in 0.9% Normal Saline (50mL MB+) 50 ML IV ×2 (17:07→22:03)
[2024-12-03] MEDS: 0.9% Normal Saline (1000mL) 1,000 ML 75 ML IV (18:58)
[2024-12-03] MEDS: Budesonide Respules 0.5 MG/2 ML AMPUL.NEB. INHALATION (19:28)
[2024-12-03] MEDS: Ipratropium 0.5 MG/2.5 ML SOLUTION INHALATION (19:28)
[2024-12-03] MEDS: 0.9% Saline Lock 10 ML Syringe IV (19:38)
[2024-12-03] MEDS: 0.9% Normal Saline (250mL Bag) 250 ML 15 ML IV (19:38)
[2024-12-03] MEDS: Vancomycin HCl 1,500 MG in 0.9% Normal Saline (500mL Bag) 500 ML 250 MG IV (19:38)
--- NOTE | 2024-12-03 19:48 | PCM.RX.CS ---
Consult Antibiotic Management Pharmacy has been consulted to manage selected antibiotic: Vancomycin Type of Intervention Type of Consult: New start Suspected Infection Suspected Infection: Pneumonia Prior Doses of Antibiotics Prior Doses of Antibiotics Received/Current Regimen: Vancomycin 1500 mg IV x 1 given 12/03/24 @ 1938 Labs Labs: Sodium 139 mmol/L (133-145) 12/03/24 12:12 Potassium 4.4 mmol/L (3.3-5.1) 12/03/24 12:12 Chloride 100 mmol/L (98-108) 12/03/24 12:12 Carbon Dioxide 28.2 mmol/L (21.0-32.0) 12/03/24 12:12 Anion Gap 11 (5-15) 12/03/24 12:12 BUN 39 mg/dL (4-19) H 12/03/24 12:12 Creatinine 1.35 mg/dL (0.70-1.20) H 12/03/24 12:12 Est GFR (MDRD) Non-Af 54 (>60) L 12/03/24 12:12 BUN/Creatinine Ratio 28.9 RATIO (10-20) H 12/03/24 12:12 Glucose 91 mg/dL (70-99) 12/03/24 12:12 Microbiology Microbiology: Microbiology 12/03/24 17:05 Urine, Clean Catch Streptococcus pneumoniae Antigen (M - Final 12/03/24 17:05 Urine, Clean Catch Legionella Antigen - Final 12/03/24 13:25 Mucosa - Nose SARS-CoV-2, Influenza & RSV (PCR) - Final Dosing Weight Weight used for dosin.4 kg Estimated Creatinine Clearance Estimated Creatinine Clearance: ~ 39 Goal Trough Goal Trough: 15-20 mcg/mL Pharmacy Plan for Drug Dosing Pharmacy Plan for Drug Dosing: Vancomycin 1500 mg IV x 1 followed by 750 mg Q24H Pharmacy Service will continue to monitor and adjust dosing as required. Follow-Up Labs Follow-Up Labs: Trough: Vancomycin Date/Time Labs Ordered Labs to be done on [date and time ordered]: 12/05/24 @ 1900
[2024-12-03] MEDS: Jevity 1.5. 1,000 ML Bottle 300 ML GT (21:08)
[2024-12-03] MEDS: APIXABAN 2.5 MG TABLET (WCH) GT (21:09)
[2024-12-03] MEDS: guaiFENesin 10 ML UDC (200MG/10ML) 20 ML GT (21:09)
[2024-12-04] VITALS (45 sets, daily range): BP systolic 82–142; BP diastolic 45–106; PULSE 59–96; RESP 12–22; TEMP 36.4–36.7; O2SAT 93–100
[2024-12-04] MEDS: Norepinephrine 8 MG in 0.9% Normal Saline (250mL Bag) 242 ML 9.4 MG CONT INF (00:30)
[2024-12-04] MEDS: guaiFENesin 10 ML UDC (200MG/10ML) 20 ML GT ×4 (01:49→18:41)
[2024-12-04] MEDS: 0.9% Saline Lock 10 ML Syringe IV ×3 (01:49→19:51)
[2024-12-04 04:05] LABS: Hematocrit 24.2 % (40-54); Hemoglobin 7.3 g/dL (13.0-16.5); Immature Granulocytes Count 0.070 X10^3/uL (0.0-0.0); Mean Corp Hgb Conc 30.2 g/dL (32-36); Mean Corpuscular Volume 107.1 fL (80-94); Mean Platelet Vol. 12.6 fl (6.2-12.0); NRBC Flagged by Analyzer 0 % (0-5); POSITIVE MORPHOLOGY YES; Platelet Count 128 K/mm3 (150-450); RBC Distribution Width CV 14.6 % (11.6-14.6); RBC Distribution Width SD 57.8 fl (35.1-43.9); Red Blood Count 2.26 M/mm3 (4.6-6.2); White Blood Count 12.7 K/mm3 (4.4-11.0)
[2024-12-04] MEDS: Piperacil/Tazobactam 3.375 GM in 0.9% Normal Saline (50mL MB+) 50 ML IV ×3 (05:24→21:11)
[2024-12-04 05:34] LABS: Anion Gap 8 (5-15); BUN 36 mg/dL (4-19); BUN/Creat Ratio 28.0 RATIO (10-20); Calcium,Total 8.7 mg/dL (7.6-11.0); Carbon Dioxide 25.0 mmol/L (21.0-32.0); Chloride 107 mmol/L (98-108); Estimated Creatinine Clearance 43.00 ml/min (50-250); Glucose 94 mg/dL (70-99); Potassium 4.8 mmol/L (3.3-5.1)
[2024-12-04 06:05] LABS: Reactive Lymphocyte RARE
[2024-12-04 06:06] LABS: Differential Comment SCANNED
[2024-12-04 06:07] LABS: Differential Indicated SCAN CRITERIA MET
[2024-12-04] MEDS: Budesonide Respules 0.5 MG/2 ML AMPUL.NEB. INHALATION ×2 (06:49→19:04)
[2024-12-04] MEDS: Ipratropium 0.5 MG/2.5 ML SOLUTION INHALATION ×4 (06:49→19:03)
[2024-12-04] MEDS: 0.9% Normal Saline (1000mL) 1,000 ML 75 ML IV (08:11)
--- NOTE | 2024-12-04 08:45 | PN.HOSP_ITS ---
Subjective Subjective Seems to be doing well, no issues overnight he was started a little bit on Levophed overnight but this was quickly turned off after about 4 hours. He does have chronically low blood pressure and is already on midodrine as an outpatient Objective Data Objective Data Vital Signs: Vital Signs Temp Pulse Resp BP Pulse Ox O2 Del Method O2 Flow Rate 97.5 F L 59 L 15 94/48 L 100 Trach Collar 4 12/04/24 00:30 12/04/24 08:00 12/04/24 08:00 12/04/24 08:30 12/04/24 08:00 12/04/24 08:00 12/04/24 08:00 Oxygen Flow Rate (L/min) 4 Oxygen Delivery Method Trach Collar Weight: 139 lb 12.369 oz Body Mass Index (BMI) 20.0 Intake & Output: Intake and Output for Last 24 Hours 12/03/24 12/04/24 12/05/24 03:59 03:59 03:59 Intake Total 2960.55 / 2969.95 1017.07 / 1017.07 Output Total 200 / 500 300 / 300 Balance 2760.55 / 2469.95 717.07 / 717.07 Lab / Micro Data 12/04/24 04:00 12/04/24 04:00 Labs: Laboratory Results - last 24 hr 12/03/24 12:12: WBC 6.0, RBC 2.72 L, Hgb 8.7 L, Hct 28.3 L, MCV 104.0 H, MCH 32.0, MCHC 30.7 L, RDW Std Deviation 55.3 H, RDW Coeff of Oz 14.5, Plt Count 135 L, MPV 13.8 H, Immature Gran % (Auto) 0.200, Neut % (Auto) 87.1 H, Lymph % (Auto) 4.7 L, Brown % (Auto) 7.5, Eos % (Auto) 0.2, Baso % (Auto) 0.3, Absolute Neuts (auto) 5.3, Absolute Lymphs (auto) 0.28 L, Nucleated RBC % 0, PT 15.7 H, INR 1.2, APTT 33.1, Sodium 139, Potassium 4.4, Chloride 100, Carbon Dioxide 28.2, Anion Gap 11, BUN 39 H, Creatinine 1.35 H, Estim Creat Clear Calc 39.10 L, Est GFR (MDRD) Non-Af 54 L, BUN/Creatinine Ratio 28.9 H, Glucose 91, Lactic Acid 2.2 H*, Calcium 9.8, Total Bilirubin 0.34, AST 21, ALT 12, Alkaline Phosphatase 93, Total Protein 7.6, Albumin 3.6, Globulin 4.0, Albumin/Globulin Ratio 0.9 12/03/24 15:00: Urine Color Yellow, Urine Clarity Sl. Cloudy, Urine pH 6.5, Ur Specific [place] 1.010, Urine Protein 100 H, Urine Glucose (UA) Normal, Urine Ketones Negative, Urine Occult Blood 250 H, Urine Nitrite Negative, Urine Bilirubin Negative, Urine Urobilinogen Normal, Ur Leukocyte Esterase 100 H, Urine RBC 10-25 SEEN, Urine WBC 10-25 SEEN, Ur Squamous Epith Cells 0 SEEN, Urine Bacteria 0 SEEN, Urine Mucus 0 SEEN 12/03/24 16:50: Lactic Acid < 1.0 12/04/24 04:00: WBC 12.7 H, RBC 2.26 L, Hgb 7.3 L, Hct 24.2 L, MCV 107.1 H, MCH 32.3 H, MCHC 30.2 L, RDW Std Deviation 57.8 H, RDW Coeff of Oz 14.6, Plt Count 128 L, MPV 12.6 H, Immature Gran % (Auto) 0.600, Neut % (Auto) 72.6 H, Lymph % (Auto) 17.1 L, Brown % (Auto) 8.9, Eos % (Auto) 0.5, Baso % (Auto) 0.3, Absolute Neuts (auto) 9.2 H, Absolute Lymphs (auto) 2.18, Nucleated RBC % 0, Differential Comment SCANNED, Atypical Lymphocytes RARE, Reactive Lymphocytes RARE, Plt Morphology Comment LARGE, Sodium 139, Potassium 4.8, Chloride 107, Carbon Dioxide 25.0, Anion Gap 8, BUN 36 H, Creatinine 1.29 H, Estim Creat Clear Calc 43.00 L, Est GFR (MDRD) Non-Af 57 L, BUN/Creatinine Ratio 28.0 H, Glucose 94, Calcium 8.7 Micro: Microbiology 12/03/24 19:20 Mucosa - Nasopharyngeal Respiratory Panel (PCR) - Final 12/03/24 19:55 Sputum, Tracheal Aspirate Gram Stain - Preliminary 12/03/24 17:05 Urine, Clean Catch Streptococcus pneumoniae Antigen (M - Final 12/03/24 17:05 Urine, Clean Catch Legionella Antigen - Final 12/03/24 13:25 Mucosa - Nose SARS-CoV-2, Influenza & RSV (PCR) - Final Radiography Diagnostic Testing: Radiology Impression Chest X-Ray 12/03/24 12:27 IMPRESSION: Findings suggestive of either atelectasis and/or early infiltrates at both lung bases. Mild degree of vascular congestion. Reading Location: [facility] Physical Exam Narrative General: Alert, Oriented x3, Cooperative, No apparent distress HEENT: Atraumatic, PERRLA, EOMI, Normocephalic Oral: Moist Mucosa Neck: Supple, No JVD, trach in place Lungs: Diminished, Normal air movement, bilateral rhonchi, No wheeze, No rales Cardiovascular: Regular rate, Regular Rhythm, Normal S1, Normal S2, No murmurs Abdomen: Soft, Non Tender, Non-Distended, No Hepato-splenomegaly Extremities: No edema, Capillary Refill Less than 3 Seconds Skin: No rashes, No breakdown Musculoskeletal: No Tenderness to Palpation of Joints or Extremities Neurological: No focal neurological deficits, moves all extremities Psych/Mental Status: Normal Affect, Appropriate Assessment & Plan Assessment/Plan (1) Sepsis: QUALIFIERS: Sepsis type: sepsis due to unspecified organism S epsis acute organ dysfunction status: without acute organ dysfunction Qualified Code(s): A41.9 - Sepsis, unspecified organism PLAN: Plan 1. 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 His blood pressure is chronically low and is on midodrine as an outpatient, will discontinue Levophed ? Cultures are pending ? Continue with antibiotics ? Continue with his midodrine, because he is chronically low blood pressure will make his threshold for any vasopressors to be a MAP of 60 ? Has a trach and PEG chronically ? He is back down to his baseline oxygen requirement of 4 L ? Continue with inhalers 2. Paroxysmal A-fib ? Continue with amiodarone and Eliquis ? Stable 3. Hypothyroidism ? Stable ? Continue with Synthroid DVT: Eliquis Charges/Coding Visit Charges Inpatient E&M: 30955 Subs Hosp L2
--- NOTE | 2024-12-04 09:35 | CASEMGMT ---
LORRIE RIVAS Assessment: Face to Face with pt for initial transition planning/care coordination assessment. LORRIE RIVAS introduced self and role at [facility], pt voices understanding and consents to assessment. Pt is A&O x4 and answers all questions appropriately at this time. Pt sitting up in bed in no distress with oxygen on trach collar. Pt wrote to answer some questions. Care providers, pharmacy, and demographics verified/updated. Admitting Dx: sepsis 2/2 pna Strata Score: 3 PCP:Morgan Specialists:Mansoor, onc; Dave Polo, pulm; Santos nephro; Pastor, ENT, eye doctor in [place]; Michelle, uro Preferred Pharmacy: [facility] Insurance: [employer], [id number] Supp Prescription Benefit: yes LNOK: Christiane Santos, sig other Living Arrangements: Pt lives with sig other in a single story home with 2 steps to enter. Pt reports he is I in ADLs and Christiane assists with IADLs. Pt denies concerns at home. Transportation: Christiane transports pt. DME:pox, bp cuff, TF through [employer], pt states he has sufficient supplies for this and that he is indep with administering, oxygen through [employer], walker, rollator, hospital bed HHC/SNF: Pt has had HHC through [facility], denies SNF stays. Pt states no concerns with going home at time of dc. Pt denies need for any homegoing services. Pt feels his strength is good. Pt states Christiane will bring in portable oxygen at time of dc. Pt is on baseline oxygen. Pt states no further concerns/needs. CM to follow. Advised pt to ask CM if any further questions/concerns/needs arise, voices understanding. Pt Goal: Home Plan: Home, follow therapy Ozzy ANDREW CM
[2024-12-04] MEDS: APIXABAN 2.5 MG TABLET (WCH) GT ×2 (10:04→21:12)
--- NOTE | 2024-12-04 14:37 | CHAPLAIN ---
Type of Pastoral Visit _x__ Initial Visit ___ Follow-up Visit ___ On-call Visit ___ General Patient Visit ___ Spiritual Assessment ___ Family Conference ___ Bereavement ___ Rapid Response ___ Code Blue ___ Other (describe below) Pastoral Care Referral From _x__ Patient ___ Family ___ Nurse ___ Physician ___ Supervisor Drapery Hanging ___ Promotion Officer ___ Other (describe below) Sacrament/Intervention _x__ Active listening ___ Anointing ___ Pentecostal ___ Bereavement ___ Communion ___ Gema exploration ___ ___ Life review _x__ Prayer ___ Reconciliation ___ Sacrament of Sick _x__ Supportive presence ___ Wedding ___ Other (describe below) Pastoral Comments patient and spouse are in the room; pt is alert but continues to have the trach tube that limits his ability to talk; initially the patient responds with thumbs up and down or nods and gestures; then pt attaches his voice plug and interacts more freely and actively; pt talks about sports both football and baseball; pt and spouse both acknowledge that there has been some improvement in condition and that 'the pneumonia was probably caught early enough'; spouse expresses concerns that 'just want him to be better and home'; time, presence, and prayer given at approval of pt and
[2024-12-04] MEDS: Vancomycin HCl 750 MG in 0.9% Normal Saline (250mL Bag) 250 ML 250 MG IV (19:47)
[2024-12-04] MEDS: Jevity 1.5 1,000 ML 102 ML GT (20:21)
[2024-12-05] VITALS (11 sets, daily range): BP systolic 116–153; BP diastolic 58–91; PULSE 82–108; RESP 16–25; TEMP 36.5–37.2; O2SAT 92–100
[2024-12-05] MEDS: Piperacil/Tazobactam 3.375 GM in 0.9% Normal Saline (50mL MB+) 50 ML IV ×3 (05:20→22:27)
[2024-12-05 05:41] LABS: Hematocrit 22.8 % (40-54); Hemoglobin 7.1 g/dL (13.0-16.5); Immature Granulocytes Count 0.050 X10^3/uL (0.0-0.0); Mean Corp Hgb Conc 31.1 g/dL (32-36); Mean Corpuscular Volume 105.6 fL (80-94); Mean Platelet Vol. 12.9 fl (6.2-12.0); NRBC Flagged by Analyzer 0 % (0-5); Platelet Count 106 K/mm3 (150-450); RBC Distribution Width CV 14.5 % (11.6-14.6); RBC Distribution Width SD 55.1 fl (35.1-43.9); Red Blood Count 2.16 M/mm3 (4.6-6.2); White Blood Count 6.8 K/mm3 (4.4-11.0)
[2024-12-05 06:09] LABS: Anion Gap 9 (5-15); BUN 37 mg/dL (4-19); BUN/Creat Ratio 27.2 RATIO (10-20); Calcium,Total 8.7 mg/dL (7.6-11.0); Carbon Dioxide 24.3 mmol/L (21.0-32.0); Chloride 106 mmol/L (98-108); Estimated Creatinine Clearance 40.79 ml/min (50-250); Glucose 156 mg/dL (70-99); Potassium 4.9 mmol/L (3.3-5.1)
[2024-12-05] MEDS: guaiFENesin 10 ML UDC (200MG/10ML) 20 ML GT ×3 (06:42→22:33)
[2024-12-05] MEDS: Jevity 1.5 1,000 ML 102 ML GT ×2 (06:43→20:28)
[2024-12-05] MEDS: 0.9% Saline Lock 10 ML Syringe IV ×2 (09:37→14:01)
[2024-12-05] MEDS: APIXABAN 2.5 MG TABLET (WCH) GT (09:39)
[2024-12-05] MEDS: Ipratropium 0.5 MG/2.5 ML SOLUTION INHALATION ×3 (10:52→19:35)
--- NOTE | 2024-12-05 10:59 | PCM.PN.HOSP ---
Subjective Subjective Doing well, no issues overnight, blood pressures have improved significantly while still on the midodrine Objective Data Objective Data Vital Signs: Vital Signs Temp Pulse Resp BP Pulse Ox O2 Del Method O2 Flow Rate 97.7 F L 92 16 142/83 H 94 Trach Collar 3 12/05/24 09:45 12/05/24 10:52 12/05/24 10:52 12/05/24 09:45 12/05/24 10:52 12/05/24 10:52 12/05/24 10:52 Oxygen Flow Rate (L/min) 3 Oxygen Delivery Method Trach Collar Weight: 139 lb 12.369 oz Body Mass Index (BMI) 20.0 Intake & Output: Intake and Output for Last 24 Hours 12/04/24 12/05/24 12/06/24 03:59 03:59 03:59 Intake Total 2960.55 / 2969.95 3018.07 / 3018.07 1388.2 / 1388.2 Output Total 200 / 500 1275 / 1275 500 / 500 Balance 2760.55 / 2469.95 1743.07 / 1743.07 888.2 / 888.2 Lab / Micro Data 12/05/24 05:30 12/05/24 05:30 Labs: Laboratory Results - last 24 hr 12/05/24 05:30: WBC 6.8, RBC 2.16 L, Hgb 7.1 L, Hct 22.8 L, MCV 105.6 H, MCH 32.9 H, MCHC 31.1 L, RDW Std Deviation 55.1 H, RDW Coeff of Oz 14.5, Plt Count 106 L, MPV 12.9 H, Immature Gran % (Auto) 0.700, Neut % (Auto) 70.2 H, Lymph % (Auto) 16.0 L, [place] % (Auto) 10.3 H, Eos % (Auto) 2.2, Baso % (Auto) 0.6, Absolute Neuts (auto) 4.8, Absolute Lymphs (auto) 1.09, Nucleated RBC % 0, Sodium 138, Potassium 4.9, Chloride 106, Carbon Dioxide 24.3, Anion Gap 9, BUN 37 H, Creatinine 1.36 H, Estim Creat Clear Calc 40.79 L, Est GFR (MDRD) Non-Af 54 L, BUN/Creatinine Ratio 27.2 H, Glucose 156 H, Calcium 8.7 Micro: Microbiology 12/03/24 19:55 Sputum, Tracheal Aspirate Gram Stain - Final 12/03/24 19:55 Sputum, Tracheal Aspirate Respiratory Culture - Preliminary GNR Poss Pseudomonas sp GNR lactose litigation services manager 12/03/24 19:20 Mucosa - Nasopharyngeal Respiratory Panel (PCR) - Final 12/03/24 17:05 Urine, Clean Catch Streptococcus pneumoniae Antigen (M - Final 12/03/24 17:05 Urine, Clean Catch Legionella Antigen - Final 12/03/24 13:25 Mucosa - Nose SARS-CoV-2, Influenza & RSV (PCR) - Final Physical Exam Narrative General: Alert, Oriented x3, Cooperative, No apparent distress HEENT: Atraumatic, PERRLA, EOMI, Normocephalic Oral: Moist Mucosa Neck: Supple, No JVD, trach in place Lungs: Diminished, Normal air movement, bilateral rhonchi, No wheeze, No rales Cardiovascular: Regular rate, Regular Rhythm, Normal S1, Normal S2, No murmurs Abdomen: Soft, Non Tender, Non-Distended, No Hepato-splenomegaly Extremities: No edema, Capillary Refill Less than 3 Seconds Skin: No rashes, No breakdown Musculoskeletal: No Tenderness to Palpation of Joints or Extremities Neurological: No focal neurological deficits, moves all extremities Psych/Mental Status: Normal Affect, Appropriate Assessment & Plan Assessment/Plan (1) Sepsis: QUALIFIERS: Sepsis type: sepsis due to unspecified organism Sepsis acute organ dysfunction status: without acute organ dysfunction Qualified Code(s): A41.9 - Sepsis, unspecified organism PLAN: Plan 1. 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 His blood pressure is chronically low and is on midodrine as an outpatient, will discontinue Levophed ?Sputum cultures with possible Pseudomonas and gram-negative jamie lactose litigation services manager ? Continue with antibiotics ? Continue with his midodrine, because he is chronically low blood pressure will make his threshold for any vasopressors to be a MAP of 60 ? Has a trach and PEG chronically ? He is back down to his baseline oxygen requirement of 4 L ? Continue with inhalers 2. Paroxysmal A-fib ? Continue with amiodarone ? Hold Eliquis ? Stable 3. Hypothyroidism ? Stable ? Continue with Synthroid 4. Anemia ? Hemoglobin is down to 7.1, will type and screen and recheck this afternoon ? Will also obtain an occult stool ? Will hold his Eliquis, previous iron studies were unremarkable and these were done in May so will not repeat, and his last vitamin B12 which was also done in May was normal so will not repeat DVT: SCDs Charges/Coding Visit Charges Inpatient E&M: 71934 Subs Hosp L2
--- NOTE | 2024-12-05 13:37 | CASEMGMT ---
Noted no therapy recommended, PT or OT.
[2024-12-05] MEDS: 0.9% Normal Saline (250mL Bag) 250 ML 15 ML IV (14:02)
[2024-12-05 14:14] LABS: Hematocrit 22.8 % (40-54); Hemoglobin 7.2 g/dL (13.0-16.5)
[2024-12-05] MEDS: Budesonide Respules 0.5 MG/2 ML AMPUL.NEB. INHALATION (19:35)
[2024-12-05 19:47] LABS: Vancomycin, Trough Level 12.3 ug/mL (5.0-15.0)
--- NOTE | 2024-12-05 20:03 | PHA.PHARE_ITS ---
Consult Antibiotic Management Pharmacy has been consulted to manage selected antibiotic: Vancomycin Type of Intervention Type of Consult: Follow-up Suspected Infection Suspected Infection: Pneumonia Labs Labs: Sodium 138 mmol/L (133-145) 12/05/24 05:30 Potassium 4.9 mmol/L (3.3-5.1) 12/05/24 05:30 Chloride 106 mmol/L (98-108) 12/05/24 05:30 Carbon Dioxide 24.3 mmol/L (21.0-32.0) 12/05/24 05:30 Anion Gap 9 (5-15) 12/05/24 05:30 BUN 37 mg/dL (4-19) H 12/05/24 05:30 Creatinine 1.36 mg/dL (0.70-1.20) H 12/05/24 05:30 Est GFR (MDRD) Non-Af 54 (>60) L 12/05/24 05:30 BUN/Creatinine Ratio 27.2 RATIO (10-20) H 12/05/24 05:30 Glucose 156 mg/dL (70-99) H 12/05/24 05:30 Vancomycin Trough 12.3 ug/mL (5.0-15.0) 12/05/24 18:47 Microbiology Microbiology: Microbiology 12/03/24 15:00 Urine, Clean Catch Urine Culture - Preliminary Yeast Like Organism Mixed Gram Positive Organisms 12/03/24 13:25 Blood Culture (Wb) - Port Blood Culture - Preliminary No growth in 48 hours. 12/03/24 12:12 Blood Culture (Wb) - Port Blood Culture - Preliminary No growth in 48 hours. 12/03/24 19:55 Sputum, Tracheal Aspirate Gram Stain - Final 12/03/24 19:55 Sputum, Tracheal Aspirate Respiratory Culture - Preliminary GNR Poss Pseudomonas sp GNR lactose front line supervisor 12/03/24 19:20 Mucosa - Nasopharyngeal Respiratory Panel (PCR) - Final 12/03/24 17:05 Urine, Clean Catch Streptococcus pneumoniae Antigen (M - Final 12/03/24 17:05 Urine, Clean Catch Legionella Antigen - Final 12/03/24 13:25 Mucosa - Nose SARS-CoV-2, Influenza & RSV (PCR) - Final Dosing Weight Weight used for dosin.4 kg Estimated Creatinine Clearance Estimated Creatinine Clearance: 41 Goal Trough Goal Trough: 15-20 mcg/mL Pharmacy Plan for Drug Dosing Pharmacy Plan for Drug Dosing: Vancomycin trough level of 12.3, drawn 23hrs post-dose, was below the target range of 15-20. Will increase dose to 1000mg q24h and draw another trough level prior to third dose of the new regimen. Pharmacy Service will continue to monitor and adjust dosing as required. Follow-Up Labs Follow-Up Labs: Trough: Vancomycin Date/Time Labs Ordered Labs to be done on [date and time ordered]: 12/07/24 @4451
[2024-12-05] MEDS: Vancomycin HCl 1,000 MG in 0.9% Normal Saline (250mL Bag) 250 ML 250 MG IV (20:17)
[2024-12-06] VITALS (12 sets, daily range): BP systolic 127–153; BP diastolic 68–90; PULSE 85–100; RESP 16–18; TEMP 36.6–36.9; O2SAT 96–100; BMI 19.8
--- NOTE | 2024-12-06 06:25 | NURSING ---
Pt requested his continuous tube feed to be stopped. At home he does tube feed boluses. The continuous feedings was making him nauseas.
[2024-12-06 06:26] LABS: Hematocrit 24.0 % (40-54); Hemoglobin 7.5 g/dL (13.0-16.5); Immature Granulocytes Count 0.010 X10^3/uL (0.0-0.0); Mean Corp Hgb Conc 31.3 g/dL (32-36); Mean Corpuscular Volume 103.0 fL (80-94); Mean Platelet Vol. 14.1 fl (6.2-12.0); NRBC Flagged by Analyzer 0 % (0-5); Platelet Count 105 K/mm3 (150-450); RBC Distribution Width CV 14.3 % (11.6-14.6); RBC Distribution Width SD 54.1 fl (35.1-43.9); Red Blood Count 2.33 M/mm3 (4.6-6.2); White Blood Count 4.7 K/mm3 (4.4-11.0)
[2024-12-06] MEDS: Piperacil/Tazobactam 3.375 GM in 0.9% Normal Saline (50mL MB+) 50 ML IV ×3 (06:36→22:56)
[2024-12-06 06:50] LABS: Anion Gap 10 (5-15); BUN 27 mg/dL (4-19); BUN/Creat Ratio 22.7 RATIO (10-20); Calcium,Total 8.7 mg/dL (7.6-11.0); Carbon Dioxide 25.1 mmol/L (21.0-32.0); Chloride 105 mmol/L (98-108); Estimated Creatinine Clearance 45.94 ml/min (50-250); Glucose 87 mg/dL (70-99); Potassium 4.3 mmol/L (3.3-5.1)
[2024-12-06] MEDS: Ipratropium 0.5 MG/2.5 ML SOLUTION INHALATION ×4 (07:23→19:27)
[2024-12-06] MEDS: Budesonide Respules 0.5 MG/2 ML AMPUL.NEB. INHALATION ×2 (07:23→19:27)
[2024-12-06] MEDS: guaiFENesin 10 ML UDC (200MG/10ML) 20 ML GT (09:26)
--- NOTE | 2024-12-06 09:51 | PN.HOSP_ITS ---
Subjective Subjective Doing well, no issues overnight Objective Data Objective Data Vital Signs: Vital Signs Temp Pulse Resp BP Pulse Ox O2 Del Method O2 Flow Rate 98 F 90 18 135/68 H 100 Trach Collar 3 12/06/24 08:38 12/06/24 08:38 12/06/24 08:38 12/06/24 09:38 12/06/24 08:38 12/06/24 08:38 12/06/24 09:24 Oxygen Flow Rate (L/min) 3 Oxygen Delivery Method Trach Collar Weight: 138 lb 14.259 oz Body Mass Index (BMI) 19.8 Intake & Output: Intake and Output for Last 24 Hours 12/05/24 12/06/24 12/07/24 03:59 03:59 03:59 Intake Total 3018.07 / 3018.07 3216.8 / 3216.8 250 / 250 Output Total 1275 / 1275 1300 / 1300 300 / 300 Balance 1743.07 / 1743.07 1916.8 / 1916.8 -50 / -50 Lab / Micro Data 12/06/24 04:57 12/06/24 04:57 Labs: Laboratory Results - last 24 hr 12/05/24 12:10: Blood Type A NEGATIVE, Antibody Screen NEGATIVE 12/05/24 14:05: Hgb 7.2 L, Hct 22.8 L 12/05/24 18:47: Vancomycin Trough 12.3 12/06/24 04:57: WBC 4.7, RBC 2.33 L, Hgb 7.5 L, Hct 24.0 L, MCV 103.0 H, MCH 32.2 H, MCHC 31.3 L, RDW Std Deviation 54.1 H, RDW Coeff of Oz 14.3, Plt Count 105 L, MPV 14.1 H, Immature Gran % (Auto) 0.200, Neut % (Auto) 59.8, Lymph % (Auto) 24.9, [place] % (Auto) 12.1 H, Eos % (Auto) 2.6, Baso % (Auto) 0.4, Absolute Neuts (auto) 2.8, Absolute Lymphs (auto) 1.17, Nucleated RBC % 0, Sodium 140, Potassium 4.3, Chloride 105, Carbon Dioxide 25.1, Anion Gap 10, BUN 27 H, Creatinine 1.20, Estim Creat Clear Calc 45.94 L, Est GFR (MDRD) Non-Af 62, B UN/Creatinine Ratio 22.7 H, Glucose 87, Calcium 8.7 Micro: Microbiology 12/03/24 19:55 Sputum, Tracheal Aspirate Gram Stain - Final 12/03/24 19:55 Sputum, Tracheal Aspirate Respiratory Culture - Final Pseudomonas aeruginosa Klebsiella pneumoniae sp pneum 12/03/24 15:00 Urine, Clean Catch Urine Culture - Preliminary Yeast Like Organism Mixed Gram Positive Organisms 12/03/24 13:25 Blood Culture (Wb) - Port Blood Culture - Preliminary No growth in 48 hours. 12/03/24 12:12 Blood Culture (Wb) - Port Blood Culture - Preliminary No growth in 48 hours. 12/03/24 19:20 Mucosa - Nasopharyngeal Respiratory Panel (PCR) - Final 12/03/24 17:05 Urine, Clean Catch Streptococcus pneumoniae Antigen (M - Final 12/03/24 17:05 Urine, Clean Catch Legionella Antigen - Final 12/03/24 13:25 Mucosa - Nose SARS-CoV-2, Influenza & RSV (PCR) - Final Physical Exam Narrative General: Alert, Oriented x3, Cooperative, No apparent distress HEENT: Atraumatic, PERRLA, EOMI, Normocephalic Oral: Moist Mucosa Neck: Supple, No JVD, trach in place Lungs: Diminished, Normal air movement, bilateral rhonchi, No wheeze, No rales Cardiovascular: Regular rate, Regular Rhythm, Normal S1, Normal S2, No murmurs Abdomen: Soft, Non Tender, Non-Distended, No Hepato-splenomegaly Extremities: No edema, Capillary Refill Less than 3 Seconds Skin: No rashes, No breakdown Musculoskeletal: No Tenderness to Palpation of Joints or Extremities Neurological: No focal neurological deficits, moves all extremities Psych/Mental Status: Normal Affect, Appropriate Assessment & Plan Assessment/Plan (1) Sepsis: QUALIFIERS: Sepsis type: sepsis due to unspecified organism S epsis acute organ dysfunction status: without acute organ dysfunction Qualified Code(s): A41.9 - Sepsis, unspecified organism PLAN: Plan 1. 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 His blood pressure is chronically low and is on midodrine as an outpatient, will discontinue Levophed ? Sputum with Pseudomonas and Klebsiella, the Pseudomonas is sensitive to ciprofloxacin but the Klebsiella is intermediately sensitive to Cipro ? Continue with antibiotics, will continue with 1 more day of IV antibiotics to control the Klebsiella and the Pseudomonas and then can transition to p.o. Cipro ? Continue with his midodrine, because he is chronically low blood pressure will make his threshold for any vasopressors to be a MAP of 60 ? Has a trach and PEG chronically ? He is back down to his baseline oxygen requirement of 4 L ? Continue with inhalers 2. Paroxysmal A-fib ? Continue with amiodarone ? Hold Eliquis ? Stable 3. Hypothyroidism ? Stable ? Continue with Synthroid 4. Anemia ? Hemoglobin improved to 7.5 today, will hold off on transfusion for now we will continue to hold Eliquis and recheck hemoglobin this afternoon ? Will also obtain an occult stool, still pending ? Will hold his Eliquis, previous iron studies were unremarkable and these were done in May so will not repeat, and his last vitamin B12 which was also done in May was normal so will not repeat DVT: SCDs Charges/Coding Visit Charges Inpatient E&M: 63516 Subs Hosp L2
[2024-12-06 14:16] LABS: Hematocrit 22.5 % (40-54); Hemoglobin 7.1 g/dL (13.0-16.5)
--- NOTE | 2024-12-06 20:00 | NURSING ---
pt and expressed that pt does not tolerate the continuous overnight feedings and want him to have his bolus feeds like he does at home in the daytime. primary rn aware. will communicate to installation & maintenance executive and day staff .
[2024-12-06] MEDS: 0.9% Normal Saline (250mL Bag) 250 ML 15 ML IV (20:12)
[2024-12-07] VITALS (16 sets, daily range): BP systolic 117–140; BP diastolic 60–82; PULSE 72–98; RESP 16–18; TEMP 36.4–37; O2SAT 96–100; BMI 19.5
[2024-12-07 04:46] LABS: Hematocrit 23.0 % (40-54); Hemoglobin 7.1 g/dL (13.0-16.5); Immature Granulocytes Count 0.020 X10^3/uL (0.0-0.0); Mean Corp Hgb Conc 30.9 g/dL (32-36); Mean Corpuscular Volume 102.2 fL (80-94); Mean Platelet Vol. 12.5 fl (6.2-12.0); NRBC Flagged by Analyzer 0 % (0-5); Platelet Count 106 K/mm3 (150-450); RBC Distribution Width CV 13.9 % (11.6-14.6); RBC Distribution Width SD 51.0 fl (35.1-43.9); Red Blood Count 2.25 M/mm3 (4.6-6.2); White Blood Count 3.9 K/mm3 (4.4-11.0)
[2024-12-07 05:30] LABS: Anion Gap 10 (5-15); BUN 20 mg/dL (4-19); BUN/Creat Ratio 17.3 RATIO (10-20); Calcium,Total 9.1 mg/dL (7.6-11.0); Carbon Dioxide 26.1 mmol/L (21.0-32.0); Chloride 104 mmol/L (98-108); Estimated Creatinine Clearance 47.43 ml/min (50-250); Glucose 82 mg/dL (70-99); Potassium 4.3 mmol/L (3.3-5.1)
[2024-12-07] MEDS: guaiFENesin 10 ML UDC (200MG/10ML) 20 ML GT (05:31)
[2024-12-07] MEDS: Piperacil/Tazobactam 3.375 GM in 0.9% Normal Saline (50mL MB+) 50 ML IV (05:31)
[2024-12-07] MEDS: Budesonide Respules 0.5 MG/2 ML AMPUL.NEB. INHALATION (07:07)
[2024-12-07] MEDS: Ipratropium 0.5 MG/2.5 ML SOLUTION INHALATION ×3 (07:07→15:58)
--- NOTE | 2024-12-07 08:53 | DCINST_ITS ---
Discharge Instructions DC O2, CPAP, BIPAP needs Home O2 Discharge instructions: No Dressing / Incision Discharge Activity: Return to Normal Activity Dressing / Incision Call your doctor if you observe: Fever of 101 or Higher, Shortness of breath, Dizziness, Fainting spells, Swelling in the ankles, Chest pain and Increased palpitations (irregular heartbeat) Follow Up Care Test Results: Test results from this visit will be discussed in further detail at your follow- up appointment, if applicable. Discharge Plan Admission Admit Date/Time: 12/03/24 15:55 Attending Provider: Colt Alan Primary Care Provider: Gloria Mora Consulting Providers: Rosi Payne Discharge Orders/Prescriptions Prescriptions: New ciprofloxacin HCl 500 mg tablet 500 mg feeding tube Q12H 5 Days Qty: 10 0RF Continued acetaminophen 325 mg capsule 325 mg PO ONCE PRN (Reason: pain) amiodarone 100 mg tablet 100 mg G-tube DAILY Qty: 90 3RF budesonide 0.5 mg/2 mL suspension for nebulization 0.5 mg inhalation BID Qty: 120 6RF Jevity 1.5 Dipesh 0.06 gram-1.5 kcal/mL Liquid 300 ml G-tube 4X/DAY Qty: 0 0RF ipratropium bromide 42 mcg (0.06 %) spray,non-aerosol 2 spray INTRANASAL BID PRN (Reason: allergy symptoms) ondansetron HCl 4 mg/5 mL solution 4 mg PO Q8H PRN (Reason: nausea and vomiting) 7 Days Qty: 50 0RF Patient Comments: has not had to use it (DME) OXYGEN - Supplemental ([facility] INFORMATIONAL USE ONLY) Gas See Rx Instructions .ROUTE Patient Comments: 3 lpm by trach collar per patient Rx Instructions: As directed guaifenesin 100 mg/5 mL liquid 100 mg PO Q6H PRN (Reason: congestion) Qty: 473 11RF lidocaine-prilocaine 2.5-2.5 % cream 1 applic topical ONCE PRN (Reason: port access) 30 Days Qty: 30 2RF (DME) [employer] Freedom G-J tube with enfit connector (luer lock) 60 mL enteral syringe See Rx Instructions .Route .MEDSUPPLY Qty: 10 0RF Rx Instructions: As directed midodrine 5 mg tablet 15 mg PO TID Qty: 810 1RF gabapentin 300 mg capsule 300 mg feeding tube BID Qty: 60 6RF levothyroxine 75 mcg tablet 75 mcg G-tube DAILY Qty: 90 0RF famotidine 40 mg/5 mL (8 mg/mL) suspension for reconstitution 40 mg PO QDAY Qty: 150 3RF Rx Instructions: administer via PEG Held Eliquis 2.5 mg tablet 2.5 mg feeding tube BID Qty: 180 1RF Hold Instructions: Resume on 12/10/24. Patient Comments: STOPPING ELIQUIS 3 DAYS PRIOR Referrals / Follow Up: Gloria Mora MD [Primary Care Provider] - Within 1 Week Cheikh Price DO [Med Staff - Active Staff] - Within 2 Weeks Disposition Disposition (needs filled in before D/C Order can be placed): Home, Self Care
--- NOTE | 2024-12-07 12:23 | PCM.DC.SUM ---
Providers Date of Admission: 12/03/24 Primary Care Physician: Dr. Gloria Mora MD Reason For Visit: SEPSIS 2/2 PNA Diagnosis Discharge Diagnosis (1) Sepsis: Status: Acute Code(s): A41.9 - Sepsis, unspecified organism Qualifiers: Sepsis type: sepsis due to unspecified organism Sepsis acute organ dysfunction status: without acute organ dysfunction Qualified Code(s): A41.9 - Sepsis, unspecified organism Medications at Discharge Home Medications lactose-reduced food with fiber 0.06 gram-1.5 kcal/mL oral liquid (Jevity 1.5 Dipesh) 300 ml G-tube 4X/DAY NUTRITION #0 mL 01/25/23 guaifenesin 100 mg/5 mL oral liquid 100 mg (5 mL) PO Q6H PRN congestion #473 mL 09/20/23 ipratropium bromide 42 mcg (0.06 %) nasal spray 2 spray intranasal BID PRN allergy symptoms 01/08/24 acetaminophen 325 mg capsule 325 mg PO ONCE PRN pain 01/20/24 lidocaine-prilocaine 2.5 %-2.5 % topical cream 1 applic topical ONCE PRN port access 30 days #30 grams 02/24/24 amiodarone 100 mg tablet 100 mg G-tube DAILY AFIB #90 tabs 05/13/24 ondansetron HCl 4 mg/5 mL oral solution 4 mg (5 mL) PO Q8H PRN nausea and vomiting 7 days #50 mL 06/05/24 Avanos Freedom G-J tube with enfit connector (luer lock) #10 ea 07/02/24 midodrine 5 mg tablet 15 mg (3 x 5 mg) PO TID for blood pressure #810 TABLETS 07/15/24 gabapentin 300 mg capsule 300 mg feeding tube BID NERVE PAIN #60 caps 07/17/24 levothyroxine 75 mcg tablet 75 mcg G-tube DAILY for disorder of thyroid gland #90 TABLETS 08/26/24 apixaban 2.5 mg tablet (Eliquis) 2.5 mg feeding tube BID BLOOD THINNER #180 tabs 09/09/24 Held on 12/07/24. Instructions: Resume on 12/10/24. 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 Reported chills but had no other new or acute complaints. In the ED temp 101.4, heart rate 132, blood pressure initially 87/58 with a respiratory rate of 23 and pulse ox 91% on 6 L through trach collar with a baseline of 4. CBC with a white count of 6 and hemoglobin 8.7, CMP with a BUN of 39 and a creatinine 1.35 with a lactic of 2.2 and chest x-ray suggestive of early infiltrates at both lung bases with a mild degree of vascular congestion. Patient given 30 cc/kg of IV fluids and antibiotics and hospitalist contacted for admission. Patient evaluated bedside. Patient evaluated with emergency room technician at bedside, reportedly had been in his usual health until this morning when he had increased shortness of breath and increasing O2 requirement with increased secretions. Patient feeling little bit better and now, denies any chest pain, reports his only complaint is he would like to have a bowel movement, denies any diarrhea or any changes in urination, has some sinus drainage but this is not new. Hospital Course: 1. Acute on chronic hypoxic respiratory failure secondary to COPD with sepsis secondary to pneumonia due to Pseudomonas and Klebsiella/history of metastatic cancer to the hypopharynx?79-year-old male with trach and PEG presented to the hospital with increasing shortness of breath. He was eventually brought back down to his baseline level of oxygen of 3 to 4 L via trach mask. However on admission around 6 L of oxygen. He was started on broad-spectrum antibiotics and respiratory cultures grew Pseudomonas and Klebsiella, the Pseudomonas is pansensitive however the Klebsiella is intermediately sensitive to ciprofloxacin. He was treated with close to 5 days of IV Zosyn and the plan is to discharge him on 5 more days of Cipro via his PEG tube. He is breathing much better and his cough production is much improved. His case is a bit complicated by the fact that he is on a baseline midodrine dosage at home so it is unclear if he ever had shock because it does appear that his baseline blood pressures are fairly low to begin with. I discussed with him and his the possibility for discharge today and they expressed understanding of the risks and benefits of going home and would like to go home today. I do recommend outpatient follow-up with her PCP. 2. Acute blood loss anemia?he does have a history of a PEG tube that was eroding into esophagus so this was replaced in June 2024, his hemoglobin has never normalized but he did drop into the low sevens and today was 7.1. I did transfuse him 2 units today and I discussed with him the possibility of staying in the hospital and having a consult by gastroenterology however he would prefer to go home and follow-up as an outpatient. We did discuss extensively the risks of going home with him and his but he would still prefer to go home at this time. Will continue with the 2 units of blood prior to discharge and then he gets infusions twice a week for hydration at which point I recommend checking his CBC to evaluate his anemia. It does appear that he has a slow bleed and so I did elect to hold his Eliquis for a few days just to allow for healing. 3. Paroxysmal A-fib, hypothyroidism are chronic medical conditions which complicate his care. His home medications were continued where appropriate Physical Exam Narrative General: Alert, Oriented x3, Cooperative, No apparent distress HEENT: Atraumatic, PERRLA, EOMI, Normocephalic Oral: Moist Mucosa Neck: Supple, No JVD, trach in place Lungs: Diminished, Normal air movement, bilateral rhonchi, No wheeze, No rales Cardiovascular: Regular rate, Regular Rhythm, Normal S1, Normal S2, No murmurs Abdomen: Soft, Non Tender, Non-Distended, No Hepato-splenomegaly, PEG tube Extremities: No edema, Capillary Refill Less than 3 Seconds Skin: No rashes, No breakdown Musculoskeletal: No Tenderness to Palpation of Joints or Extremities Neurological: No focal neurological deficits, moves all extremities Psych/Mental Status: Normal Affect, Appropriate Weight / BMI Weight Weight: 136 lb 3.931 oz Body Mass Index (BMI) 19.5 ABG / Lab / Microbiology Data 12/07/24 04:20 12/07/24 04:20 Laboratory: Laboratory Results - last 24 hr 12/05/24 12:10: Crossmatch See Detail 12/06/24 14:00: Hgb 7.1 L, Hct 22.5 L 12/07/24 04:20: WBC 3.9 L, RBC 2.25 L, Hgb 7.1 L, Hct 23.0 L, MCV 102.2 H, MCH 31.6, MCHC 30.9 L, RDW Std Deviation 51.0 H, RDW Coeff of Oz 13.9, Plt Count 106 L, MPV 12.5 H, Immature Gran % (Auto) 0.500, Neut % (Auto) 57.7, Lymph % (Auto) 27.5, [place] % (Auto) 10.4 H, Eos % (Auto) 3.4, Baso % (Auto) 0.5, Absolute Neuts (auto) 2.2, Absolute Lymphs (auto) 1.06, Nucleated RBC % 0, Sodium 140, Potassium 4.3, Chloride 104, Carbon Dioxide 26.1, Anion Gap 10, BUN 20 H, Creatinine 1.14, Estim Creat Clear Calc 47.43 L, Est GFR (MDRD) Non-Af 66, BUN/Creatinine Ratio 17.3, Glucose 82, Calcium 9.1 Microbiology: Microbiology 12/06/24 16:20 Stool Stool Occult Blood (DIEGO) - Final Occult Blood Positive 12/03/24 15:00 Urine, Clean Catch Urine Culture - Final Yeast, not Velma albicans Mixed Gram Positive Organisms 12/03/24 19:55 Sputum, Tracheal Aspirate Gram Stain - Final 12/03/24 19:55 Sputum, Tracheal Aspirate Respiratory Culture - Final Pseudomonas aeruginosa Klebsiella pneumoniae sp pneum 12/03/24 13:25 Blood Culture (Wb) - Port Blood Culture - Preliminary No growth in 48 hours. 12/03/24 12:12 Blood Culture (Wb) - Port Blood Culture - Preliminary No growth in 48 hours. 12/03/24 19:20 Mucosa - Nasopharyngeal Respiratory Panel (PCR) - Final 12/03/24 17:05 Urine, Clean Catch Streptococcus pneumoniae Antigen (M - Final 12/03/24 17:05 Urine, Clean Catch Legionella Antigen - Final 12/03/24 13:25 Mucosa - Nose SARS-CoV-2, Influenza & RSV (PCR) - Final D/C Instructions Call your doctor if you observe: Fever of 101 or Higher, Shortness of breath, Dizziness, Fainting spells, Swelling in the ankles, Chest pain and Increased palpitations (irregular heartbeat) DC O2, CPAP, BIPAP Needs Home O2 Discharge instructions: No Meaningful Use Info Meaningful Use Meaningful Use Diagnoses (Choose all that apply): None applicable Discharge Plan Admission Admit Date/Time: 12/03/24 15:55 Attending Provider: Colt Alan Primary Care Provider: Gloria Mora Consulting Providers: Rosi Payne Additional Instructions / Restrictions: Follow-up with your PCP in 3 to 5 days to obtain a repeat hemoglobin to monitor your anemia Discharge Orders/Prescriptions Prescriptions: New ciprofloxacin HCl 500 mg tablet 500 mg feeding tube Q12H 5 Days Qty: 10 0RF Continued acetaminophen 325 mg capsule 325 mg PO ONCE PRN (Reason: pain) amiodarone 100 mg tablet 100 mg G-tube DAILY Qty: 90 3RF budesonide 0.5 mg/2 mL suspension for nebulization 0.5 mg inhalation BID Qty: 120 6RF Jevity 1.5 Dipesh 0.06 gram-1.5 kcal/mL Liquid 300 ml G-tube 4X/DAY Qty: 0 0RF ipratropium bromide 42 mcg (0.06 %) spray,non-aerosol 2 spray INTRANASAL BID PRN (Reason: allergy symptoms) ondansetron HCl 4 mg/5 mL solution 4 mg PO Q8H PRN (Reason: nausea and vomiting) 7 Days Qty: 50 0RF Patient Comments: has not had to use it (DME) OXYGEN - Supplemental ([facility] INFORMATIONAL USE ONLY) Gas See Rx Instructions .ROUTE Patient Comments: 3 lpm by trach collar per patient Rx Instructions: As directed guaifenesin 100 mg/5 mL liquid 100 mg PO Q6H PRN (Reason: congestion) Qty: 473 11RF lidocaine-prilocaine 2.5-2.5 % cream 1 applic topical ONCE PRN (Reason: port access) 30 Days Qty: 30 2RF (DME) Avanos Freedom G-J tube with enfit connector (luer lock) 60 mL enteral syringe See Rx Instructions .Route .MEDSUPPLY Qty: 10 0RF Rx Instructions: As directed midodrine 5 mg tablet 15 mg PO TID Qty: 810 1RF gabapentin 300 mg capsule 300 mg feeding tube BID Qty: 60 6RF levothyroxine 75 mcg tablet 75 mcg G-tube DAILY Qty: 90 0RF famotidine 40 mg/5 mL (8 mg/mL) suspension for reconstitution 40 mg PO QDAY Qty: 150 3RF Rx Instructions: administer via PEG Held Eliquis 2.5 mg tablet 2.5 mg feeding tube BID Qty: 180 1RF Hold Instructions: Resume on 12/10/24. Patient Comments: STOPPING ELIQUIS 3 DAYS PRIOR Referrals / Follow Up: Gloria Mora MD [Primary Care Provider] - Within 1 Week Cheikh Price DO [Med Staff - Active Staff] - Within 2 Weeks Disposition Disposition (needs filled in before D/C Order can be placed): Home, Self Care Charges/Coding Visit Charges Inpatient E&M: 15676 Disch Hosp >30min
== END 2024-12-07 18:40 | disposition home or self-care (01) | DRG 871 ==
LOC: ED 15:57 → ICU 17:17 → MS3 12-05 12:50
PROVIDERS: Physician Assistant; Admitting Provider Internal Medicine; Emergency Provider Emergency Medicine; PCP Internal Medicine; Visit Provider Family Medicine
DX: A41.9 Sepsis, unspecified organism (principal); J18.9 Pneumonia, unspecified organism; J96.21 Acute and chronic respiratory failure with hypoxia; J44.0 Chronic obstructive pulmonary disease with (acute) lower respiratory infection; D62 Acute posthemorrhagic anemia; Z93.0 Tracheostomy status; N18.30 Chronic kidney disease, stage 3 unspecified; E03.9 Hypothyroidism, unspecified; I48.0 Paroxysmal atrial fibrillation; K21.9 Gastro-esophageal reflux disease without esophagitis; Z79.01 Long term (current) use of anticoagulants; Z79.51 Long term (current) use of inhaled steroids; Z79.890 Hormone replacement therapy; Z87.891 Personal history of nicotine dependence; B96.5 Pseudomonas (aeruginosa) (mallei) (pseudomallei) as the cause of diseases classified elsewhere; B96.1 Klebsiella pneumoniae [K. pneumoniae] as the cause of diseases classified elsewhere
CPT/HCPCS: 36415; 36591; 71046; 80048; 80053; 80202; 81001; 82274; 83605; 85014; 85018; 85025; 85610; 85730; 86850; 86900; 86901; 87040; 87070; 87077; 87086; 87088; 87184; 87186; 87205; 87449; 87631; 87633; 93005; 94640; 94762; 97110; 97116; 97161; 97166; 97530; 97802; 97803; 99284; P9016; A4216

== ENCOUNTER 2024-12-14 10:38 | Outpatient (CLI) | payer MEDICARE, OTHER, SELFPAY ==
[2024-12-14 11:12] LABS: Hematocrit 38.5 % (40-54); Hemoglobin 11.9 g/dL (13.0-16.5)
== END 2024-12-14 23:59 | disposition home or self-care (01) ==
LOC: MEDOUTP 10:38
PROVIDERS: PCP Internal Medicine; Referring Provider Internal Medicine; Visit Provider Internal Medicine
DX: D64.9 Anemia, unspecified (principal)
CPT/HCPCS: 36591; 85014; 85018

== ENCOUNTER 2025-03-29 11:06 | Outpatient (CLI) | payer MEDICARE, OTHER, SELFPAY ==
[2025-03-29 11:40] LABS: Hematocrit 27.8 % (40-54); Hemoglobin 8.5 g/dL (13.0-16.5); Mean Corp Hgb Conc 30.6 g/dL (32-36); Mean Corpuscular Volume 105.3 fL (80-94); Mean Platelet Vol. 12.4 fl (6.2-12.0); Platelet Count 127 K/mm3 (150-450); RBC Distribution Width CV 14.2 % (11.6-14.6); RBC Distribution Width SD 54.6 fl (35.1-43.9); Red Blood Count 2.64 M/mm3 (4.6-6.2); White Blood Count 4.9 K/mm3 (4.4-11.0)
[2025-03-29 19:36] LABS: Xtra Tube EP Lab EXTRA TUBE
== END 2025-03-29 23:59 | disposition home or self-care (01) ==
LOC: MEDOUTP 11:06
PROVIDERS: PCP Internal Medicine; Referring Provider Internal Medicine Cardiovascular Disease; Visit Provider Internal Medicine Cardiovascular Disease
DX: I48.0 Paroxysmal atrial fibrillation (principal)
CPT/HCPCS: 36591; 85027; A4216